=== PATIENT | male | born 1985 | race Caucasian/White ===

== ENCOUNTER 2020-02-19 15:38 | Emergency (ER) | payer OTHER, SELFPAY ==
[2020-02-19 16:41] VITALS: BP 148/89; RESP 20; TEMP 36.1; O2SAT 98; BMI 29.0
--- NOTE | 2020-02-19 17:43 | ED.SKABFB ---
HPI - Skin/Abscess/Foreign Bdy General Chief complaint: Skin/Abscess/Foreign Body Stated complaint: skin lesions Time Seen by Provider: 02/19/20 17:42 History of Present Illness HPI narrative: Patient complains of multiple small scabbed lesions on face and arms for many many weeks, no fever no chills Related Data Previous Rx's Medication Instructions Recorded clindamycin HCl 300 mg PO QID 10 Days #40 cap 02/19/20 Allergies Allergy/AdvReac Type Severity Reaction Status Date / Time penicillin V Allergy Unknown Unknown Verified 02/19/20 17:50 Penicillins [PENICILLINS] Allergy Unknown RASH Verified 02/19/20 17:50 penicillin Allergy Unknown Unknown Uncoded 02/19/20 16:44 Review of Systems Review of Systems: No fever no chills no dizziness no weakness no chest pain no cough no shortness of breath Yes all other systems are reviewed and are negative [facility] Past Medical History [facility] Narrative: Patient admits to drug use Medical History (Updated 02/20/20 @ 00:00 by Background Daemon) No known health problems Social History Social History Advance Directives: No Advance Directives Information Provided: Yes Physical Exam Vital Signs: Vital Signs: Last Vital Signs Temp 98.2 F 02/19/20 17:47 Pulse 108 H 02/19/20 17:47 Resp 17 02/19/20 17:47 BP 131/96 H 02/19/20 17:47 Pulse Ox 97 02/19/20 17:47 Body Mass Index 29.0 General appearance a and O x3, no acute distress The exam of the face and the skin shows multiple scabbed lesions as well as some very small pustules, no fluctuant abscess no large area of redness there are many small scabs with out significant surrounding erythema The pharynx is clear the neck is supple the chest no respiratory distress the extremities full range of motion x4, gait is normal neuro no focal deficit Course Course Course Narrative: Patient is treated with antibiotic for folliculitis/cellulitis Discharge Plan Discharge Clinical Impression: Cellulitis Patient Disposition: Home, Self-Care Additional Instructions: Use antibiotic as directed Return any time any worse condition or concerns Follow with primary care doctor Prescriptions: New clindamycin HCl 300 mg capsule 300 mg PO QID 10 Days Qty: 40 RF: 0 Interventions: ED Discharge Assessment Last Done: 02/19/20 17:58 Discharge Date/Time: 02/19/20 17:59
[2020-02-19 17:47] VITALS: BP 131/96; PULSE 108; RESP 17; TEMP 36.8; O2SAT 97; BMI 29.0
== END 2020-02-19 17:59 | disposition home or self-care (01) ==
PROVIDERS: Emergency Provider Internal Medicine; PCP Internal Medicine
DX: L03.211 Cellulitis of face (principal); L03.114 Cellulitis of left upper limb; L03.113 Cellulitis of right upper limb; Z79.899 Other long term (current) drug therapy
CPT/HCPCS: 99283

== ENCOUNTER 2020-07-22 08:18 | Emergency (ER) | payer OTHER, SELFPAY ==
[2020-07-22 08:21] VITALS: PULSE 104; O2SAT 98
[2020-07-22 08:23] VITALS: BP 134/91; PULSE 99; RESP 18; TEMP 36.6; O2SAT 98; BMI 25.8
== END 2020-07-22 09:07 | disposition left against medical advice (07) ==
PROVIDERS: Emergency Provider Emergency Medicine
DX: F14.10 Cocaine abuse, uncomplicated (principal); F12.90 Cannabis use, unspecified, uncomplicated; Z71.51 Drug abuse counseling and surveillance of drug abuser
CPT/HCPCS: 99282

== ENCOUNTER 2020-07-23 00:50 | Emergency (ER) | payer OTHER, SELFPAY ==
--- NOTE | 2020-07-23 00:55 | ED.PSYCH ---
HPI - Psych General Chief Complaint: ETOH/Substance Use Stated Complaint: crisis Time Seen by Provider: 07/23/20 00:55 Source: patient and EMS Mode of arrival: EMS Limitations: no limitations History of Present Illness HPI Narrative: 35 yo male with cocaine and synthetic use to get high, no SI, at this time 911 called due to the patient walking around and acting strange complaint: anxiety and substance abuse Onset (ago): hour(s) Duration: constant History of same: Yes Relieving factors: none Exacerbating factors: drug use Context: recent drug abuse Associated psychiatric symptoms: none Associated symptoms: denies other symptoms Related Data Previous Rx's Medication Instructions Recorded clindamycin HCl 300 mg PO QID 10 Days #40 cap 02/19/20 Allergies Allergy/AdvReac Type Severity Reaction Status Date / Time penicillin V Allergy Unknown Unknown Verified 02/19/20 17:50 Penicillins [PENICILLINS] Allergy Unknown RASH Verified 02/19/20 17:50 penicillin Allergy Unknown Unknown Uncoded 02/19/20 16:44 Review of Systems Review of Systems: Constitutional : No Fever, No Chills ENT/Mouth : No Ear Pain, No Nasal Congestion, No sore throat Eyes: No Eye Pain, No Swelling, No Redness Cardiovascular : No Chest Pain, No SOB Respiratory : No Cough, No Sputum, No Dyspnea Gastrointestinal : No Nausea, No Vomiting, No Diarrhea, No Hematochezia, No Melena Genitourinary : No Dysuria, No Urinary Frequency, No Hematuria Musculoskeletal : No Myalgias Skin : No Skin Lesions, No rash Neuro : No Weakness, No Numbness, No Paresthesias, No Dizziness, No Headache Psych : pos Anxiety, no Depression, no SI/HI Heme/Lymph: No Lymphadenopathy Endocrine : No Polyuria, No Polydipsia All other systems reviewed and are negative [facility] Past Medical History Medical History (Updated 07/23/20 @ 00:58 by Alice Brown DO) No known health problems Polysubstance abuse Social History Social History (Updated 07/23/20 @ 00:59 by Alice Brown DO) Alcohol intake: current Smoking Status: Current every day smoker Substance Use Type: Crack/Cocaine and Marijuana Advance Directives: No Physical Exam Vital Signs: Appearance: Alert. Oriented X3. No acute distress. intermittent jerking movements, laughing Eyes: Pupils equal, round and reactive to light. ENT: Pharynx normal. Neck: Normal inspection. Neck supple. CVS: Normal heart rate and rhythm. Pulses normal. Respiratory: No respiratory distress. Breath sounds normal. Abdomen: Soft and nontender. Skin: Skin warm and dry. Normal skin color. Normal skin turgor. Extremities: No lower extremity edema. No calf ttp Neuro: Oriented X 3. No motor deficit. No sensory deficit. MDM - Psych MDM Narrative Medical decision making narrative: 35 yo male stable VS, no SI comes in feeling weird and anxious after using cocaine and synthetic THC - normal HR and BP, anxious, will give PO ativan and reassess patient for improvement, anticipate DC home Discharge Plan Discharge Clinical Impression: Polysubstance abuse Patient Disposition: Home, Self-Care Instructions: Polysubstance Abuse (ED) Additional Instructions: return to ED for any worsening symptoms or concerns Prescriptions: No Action clindamycin HCl 300 mg capsule 300 mg PO QID 10 Days Qty: 40 RF: 0
[2020-07-23 00:57] VITALS: BP 117/69; PULSE 80; PULSE 97; RESP 18; TEMP 36.8; O2SAT 98; BMI 24.2
[2020-07-23] MEDS: Acetaminophen 325 MG TABLET 650 MG PO (01:02)
[2020-07-23] MEDS: LORazepam 1 MG TABLET 2 MG PO (01:03)
[2020-07-23] MEDS: LORazepam 1 MG TABLET PO (01:32)
[2020-07-23] MEDS: OLANZapine 5 MG TABLET PO (01:35)
[2020-07-23 04:00] VITALS: RESP 14
[2020-07-23 06:00] VITALS: BP 110/74; PULSE 97; RESP 14; TEMP 36.8; O2SAT 98
[2020-07-23 08:00] VITALS: RESP 18
[2020-07-23 10:00] VITALS: RESP 16
--- NOTE | 2020-07-23 10:38 | PC.NURSE ---
Pt sleeping at this time, no sign of distress. Respirations even/unlabored bilaterally. Will continue to monitor. md aware.
[2020-07-23 12:52] LABS: COVID-19 Test Negative (Negative)
[2020-07-23 13:08] VITALS: BP 139/84; PULSE 82; RESP 18; TEMP 36.7; O2SAT 98
== END 2020-07-23 14:32 ==
PROVIDERS: Emergency Provider Emergency Medicine
DX: F14.10 Cocaine abuse, uncomplicated (principal); F19.10 Other psychoactive substance abuse, uncomplicated; R45.1 Restlessness and agitation; F41.9 Anxiety disorder, unspecified; F17.200 Nicotine dependence, unspecified, uncomplicated; Z20.822 Contact with and (suspected) exposure to COVID-19
CPT/HCPCS: 36415; 87635; 99285

== ENCOUNTER 2020-12-13 04:12 | Emergency (ER) | payer OTHER, SELFPAY ==
[2020-12-13 04:38] VITALS: BP 130/82; PULSE 127; RESP 20; TEMP 37.1; O2SAT 96; BMI 38.3
--- NOTE | 2020-12-13 06:19 | ED_ITS ---
HPI - Dental/Oral General Chief complaint: Dental/Oral Stated complaint: covid symptoms/drug use Time Seen by Provider: 12/13/20 06:02 Source: patient Mode of arrival: ambulatory History of Present Illness HPI Narrative: 35-year-old male comes in with complaints of ?COVID symptoms and dental pain?. In addition, he endorses use of cocaine approximately 2 hours prior to arrival. He denies any fever, chills a states he is having pain thro ugh his nose and into his ears. Related Data Previous Rx's Medication Instructions Recorded clindamycin HCl 300 mg capsule 300 mg PO QID 10 Days #40 cap 02/19/20 levofloxacin 750 mg tablet 750 mg PO Q24H 10 Days #10 tab 12/13/20 Allergies Allergy/AdvReac Type Severity Reaction Status Date / Time penicillin V Allergy Unknown Unknown Verified 02/19/20 17:50 Penicillins [PENICILLINS] Allergy Unknown RASH Verified 02/19/20 17:50 penicillin Allergy Unknown Unknown Uncoded 02/19/20 16:44 Review of Systems Review of Systems: Pertinent positives and negatives as stated in HPI 10 point review systems is otherwise negative. [facility] Past Medical History Source: nursing notes reviewed Medical History No known health problems Polysubstance abuse Social History Social History Alcohol intake: current Patient Tobacco Use Status: Never used Tobacco Use of substances other than those prescribed or required for medical reasons: Yes Substance Use Type: Crack/Cocaine and Heroin Substance Use Frequency: Chronic Longstanding Last Used Substance: Hours (ago) Advance Directives: No Physical Exam Vital Signs: Vital Signs: Last Vital Signs Temp 98.7 F 12/13/20 04:38 Pulse 127 H 12/13/20 04:38 Resp 20 12/13/20 06:50 BP 130/82 12/13/20 04:38 Pulse Ox 96 12/13/20 04:38 Body Mass Index 38.3 VITAL SIGNS: Reviewed. GENERAL: Well developed, well nourished, in no acute distress. HEAD: Normocephalic/atraumatic EYES: PERRLA, EOMI EARS: Ext canals without abnormality NOSE: Nares patent bilateral, his septum is completely gone and complete visualization of posterior sinus OROPHARYNX: no oral lesions noted, posterior pharynx clear and non-erythematous without noted tonsillar enlargement/erythema/exudates NECK: Supple, no adenopathy LUNGS: Normal breath sounds. No adventitious sounds or accessory muscle use. SpO2<96> CARDIOVASCULAR: Regular rate and rhythm without noted murmurs, no JVD or lower extremity edema. ABDOMEN: Obese, Soft, non-tender, non-distended with bowel sounds. SKIN: Inspection of the skin reveals no rashes NEUROLOGIC: Alert and oriented x 4. PSYCH: Restless, agitated Course Course Course Narrative: This is a 35-year-old male with history and clinical presentation consistent with significant use the cocaine that has eroded almost the entire is to of his nose with confluence between the right and left side. On evaluation of the oral cavity there is no evidence communication between the hard/soft palate and the nasal passage. Basic labs and COVID-19 will be obtained. Patient otherwise clearly under the influence of illicit drugs. Antibiotics given. Signed out to Dr Brown. [facility] - Dental/Oral Lab Data Result diagrams: 12/13/20 06:20 12/13/20 06:20 Labs: Lab Results 12/13/20 12/13/20 12/13/20 Range/Units 06:20 06:20 06:20 WBC 15.4 H (4.8-10.8) X10*3/uL RBC 4.67 (4.60-5.80) X10*6/uL Hgb 13.1 L (14.0-18.0) g/dl Hct 38.6 L (42-52) % MCV 82.7 (80-98) fL MCH 28.1 (27.0-33.0) pg MCHC 33.9 (31.0-36.0) g/dl RDW 12.5 (11.0-16.0) % Plt Count 316 (160-400) X10*3/uL MPV 8.9 L (9.4-12.4) fL Immature Gran % (Auto) 1.0 H (0.0-0.4) % Neut % (Auto) 71.5 (45-73) % Lymph % (Auto) 13.5 L (20-40) % [place] % (Auto) 9.9 (2-11) % Eos % (Auto) 3.5 (0-4) % Baso % (Auto) 0.6 (0-2) % Lymph # (Auto) 2.1 (1.2-4.9) X10*3/uL [place] # (Auto) 1.5 H (0.1-1.2) X10*3/uL Eos # (Auto) 0.5 H (0.0-0.4) X10*3/uL Baso # (Auto) 0.1 (0.0-0.2) X10*3/uL Abs Immat Gran (auto) 0.16 H (0.00-0.03) X10*3/uL Absolute Neuts (auto) 11.0 H (2.0-8.3) X10*3/uL Absolute Nucleated RBC 0.000 (0.0-0.012) X10*3/uL Nucleated RBC % (auto) 0.0 (0.0-0.2) /100WBC Smear Tech's Comments VERIFIED Sodium 133 L (135-145) mmol/L Potassium 3.9 (3.3-5.1) mmol/L Chloride 99 (96-108) mmol/L Carbon Dioxide 24 (22-29) mmol/L Anion Gap 14 (12-20) BUN 16 (9-16) mg/dL Creatinine 0.89 (0.5-1.4) mg/dL Estim Creat Clear Calc 140.4 Estimated GFR > 60 Random Glucose 131 H (60-115) mg/dL Calcium 9.2 (8.4-10.2) mg/dL Total Bilirubin 0.4 (0.0-1.0) mg/dL AST 54 H (5-37) U/L ALT 51 H (0-40) U/L Alkaline Phosphatase 96 (39-117) U/L Total Protein 6.9 (6.5-8.0) g/dL Albumin 4.2 (3.5-5.0) g/dL COVID-19 (DIRK) Negative (Negative) COVID-19 Clin Com See Note Discharge Plan Discharge Clinical Impression: Ear infection Patient Disposition: Home, Self-Care Instructions: Ear Infection (ED) Additional Instructions: Return to the ER for acute worsening of symptoms. Prescriptions: New levofloxacin 750 mg tablet 750 mg PO Q24H 10 Days Qty: 10 RF: 0 No Action clindamycin HCl 300 mg capsule 300 mg PO QID 10 Days Qty: 40 RF: 0
[2020-12-13 06:26] LABS: Basophils Absolute Auto 0.1 X10*3/uL (0.0-0.2); Basophils Percent Auto 0.6 % (0-2); Eosinophils Absolute Auto 0.5 X10*3/uL (0.0-0.4); Eosinophils Percent Auto 3.5 % (0-4); Hematocrit 38.6 % (42-52); Hemoglobin 13.1 g/dl (14.0-18.0); Imm Gran Abs Auto 0.16 X10*3/uL (0.00-0.03); Lymphocytes Absolute Auto 2.1 X10*3/uL (1.2-4.9); Lymphocytes Percent Auto 13.5 % (20-40); MANUAL DIFF FLAG SCAN; Mean Corpuscular HGB Conc 33.9 g/dl (31.0-36.0); Mean Corpuscular Hemoglobin 28.1 pg (27.0-33.0); Mean Corpuscular Volume 82.7 fL (80-98); Mean Platelet Volume 8.9 fL (9.4-12.4); Monocytes Absolute Auto 1.5 X10*3/uL (0.1-1.2); Monocytes Percent Auto 9.9 % (2-11); Neutrophils Percent Auto 71.5 % (45-73); Platelet Count 316 X10*3/uL (160-400); Red Blood Count 4.67 X10*6/uL (4.60-5.80); Red Cell Distribution Width 12.5 % (11.0-16.0); SCAN SMEAR FLAG 1; White Blood Count 15.4 X10*3/uL (4.8-10.8)
[2020-12-13 06:44] LABS: COVID-19 Test Negative (Negative); IDNOW Serial# 9DD0AD1C
[2020-12-13 06:45] LABS: SLIDE REVIEW VERIFIED
[2020-12-13 06:49] LABS: Alanine Aminotransferase 51 U/L (0-40); Albumin Level 4.2 g/dL (3.5-5.0); Alkaline Phosphatase 96 U/L (39-117); Anion Gap 14 (12-20); Aspartate Amino Transferase 54 U/L (5-37); Bilirubin Total 0.4 mg/dL (0.0-1.0); Blood Urea Nitrogen 16 mg/dL (9-16); Calcium 9.2 mg/dL (8.4-10.2); Carbon Dioxide 24 mmol/L (22-29); Chloride 99 mmol/L (96-108); Creatinine Clr Calc Pharmacy 140.4; Estimated Glomerular Filt Rate > 60; Glucose Random 131 mg/dL (60-115); Potassium 3.9 mmol/L (3.3-5.1); Sodium 133 mmol/L (135-145); Total Protein 6.9 g/dL (6.5-8.0)
[2020-12-13 06:50] VITALS: RESP 20
--- NOTE | 2020-12-13 06:52 | PC.NURSE ---
pt high on cocaine, pt is restless, labs and covid swab sent . Pt given something to drink. No nausea or vomiting. Will continue to monitor.
[2020-12-13] MEDS: levoFLOXacin 750 MG TABLET PO (06:59)
[2020-12-13 07:29] VITALS: BP 110/78; PULSE 98; RESP 20; O2SAT 98
== END 2020-12-13 08:00 | disposition home or self-care (01) ==
PROVIDERS: Student in an Organized Health Care Education/Training Program; Emergency Provider Emergency Medicine
DX: H83.03 Labyrinthitis, bilateral (principal); F14.10 Cocaine abuse, uncomplicated; F11.10 Opioid abuse, uncomplicated; K08.89 Other specified disorders of teeth and supporting structures; Z20.822 Contact with and (suspected) exposure to COVID-19; Z79.899 Other long term (current) drug therapy
CPT/HCPCS: 36415; 80053; 85025; 87635; 99283; 99284

== ENCOUNTER 2020-12-15 00:20 | Emergency (ER) | payer OTHER, SELFPAY ==
[2020-12-15 00:33] VITALS: BP 138/80; BP 150/82; PULSE 114; PULSE 99; RESP 24; O2SAT 100; BMI 37.5
[2020-12-15 05:18] VITALS: PULSE 88; RESP 14; O2SAT 98
--- NOTE | 2020-12-15 05:19 | PC.NURSE ---
Pt remains asleep in bed at this time in NAD. Visible chest rise noted.
--- NOTE | 2020-12-15 06:41 | PC.NURSE ---
Pt remains asleep in bed at this time, visible chest rise noted. Pt occasionally wakes and yells out but returns to sleep immediately. Per MD, plan uncertain as pt remains extremely drowsy. Continue to monitor.
--- NOTE | 2020-12-15 06:57 | ED.GENADULT ---
HPI - General Adult General Chief complaint: ETOH/Substance Use Stated complaint: withdrawls Time Seen by Provider: 12/15/20 06:57 Source: EMS Mode of arrival: EMS History of Present Illness HPI narrative: 35-year-old male is brought in from home by EMS the latter which reports that the patient says he is detoxing from methadone and cocaine for 2-3 days. He denies any suicidal or homicidal ideation. Related Data Previous Rx's Medication Instructions Recorded clindamycin HCl 300 mg capsule 300 mg PO QID 10 Days #40 cap 02/19/20 levofloxacin 750 mg tablet 750 mg PO Q24H 10 Days #10 tab 12/13/20 Allergies Allergy/AdvReac Type Severity Reaction Status Date / Time penicillin V Allergy Unknown Unknown Verified 12/15/20 00:36 Penicillins [PENICILLINS] Allergy Unknown RASH Verified 12/15/20 00:36 penicillin Allergy Unknown Unknown Uncoded 12/15/20 00:36 Review of Systems Review of Systems: Pertinent positives and negatives as stated in the HPI. [facility] Past Medical History Source: nursing notes reviewed Medical History No known health problems Polysubstance abuse Social History Social History Alcohol intake: current Patient Tobacco Use Status: Never used Tobacco Substance Use Type: Crack/Cocaine and Heroin Advance Directives: No Physical Exam Vital Signs: Vital Signs: Last Vital Signs Pulse 88 12/15/20 05:18 Resp 14 12/15/20 05:18 BP 138/80 12/15/20 00:33 Pulse Ox 98 12/15/20 05:18 Body Mass Index 37.5 VITAL SIGNS: Reviewed. GENERAL: Well developed, well nourished, in no acute distress. HEAD: Normocephalic/atraumatic EYES: PERRLA, EOMI NOSE: Nares patent bilateral, no septum left OROPHARYNX: no oral lesions noted, posterior pharynx clear LUNGS: Normal breath sounds. SpO2<98> CARDIOVASCULAR: Regular rate and rhythm without noted murmurs ABDOMEN: Soft, non-tender, non-distended with bowel sounds. SKIN: Inspection of the skin reveals no rashes NEUROLOGIC: Alert and oriented x 4. Strength and sensation to light touch were grossly intact x 4. Course Course Course Narrative: 35-year-old male with history and clinical presentation consistent with substance use and is resting comfortably. On re-evaluation patient states he is ready go home and will be discharged in stable condition. Discharge Plan Discharge Clinical Impression: Substance abuse Patient Disposition: Home, Self-Care Instructions: Polysubstance Abuse (ED) Additional Instructions: You need to resume your antibiotics as prescribed. Return to the ER for acute worsening of your symptoms. Prescriptions: No Action clindamycin HCl 300 mg capsule 300 mg PO QID 10 Days Qty: 40 RF: 0 levofloxacin 750 mg tablet 750 mg PO Q24H 10 Days Qty: 10 RF: 0 Referrals: Physician,Unknown [Primary Care Provider] - 2 days
--- NOTE | 2020-12-15 07:24 | PC.NURSE ---
woke by . given phone to find ride home.
--- NOTE | 2020-12-15 07:32 | PC.NURSE ---
Pt eating. states he has a ride coming. requesting methadone which he has missed last 2 days.
== END 2020-12-15 07:59 | disposition home or self-care (01) ==
PROVIDERS: Emergency Provider Student in an Organized Health Care Education/Training Program
DX: F11.13 Opioid abuse with withdrawal (principal); F14.10 Cocaine abuse, uncomplicated; Z71.51 Drug abuse counseling and surveillance of drug abuser
CPT/HCPCS: 99284

== ENCOUNTER 2021-01-08 11:41 | Emergency (ER) | payer MEDICAID, SELFPAY ==
[2021-01-08 14:18] VITALS: BP 144/100; PULSE 80; RESP 18; TEMP 37.1; O2SAT 97; BMI 37.5
--- NOTE | 2021-01-08 14:42 | ED_ITS ---
HPI - URI/Sore Throat General Chief Complaint: Upper Respiratory Symptoms Stated Complaint: sore throat, ear pain Time Seen by Provider: 01/08/21 14:42 Source: patient Mode of arrival: ambulatory Limitations: no limitations History of Present Illness HPI Narrative: sore throat and right ear pain for 4 days MD elicited complaint: sore throat and nasal congestion Onset (ago): day(s) Consistency: constant Severity: moderate Relieving factors: nothing Associated symptoms: denies other symptoms Related Data Previous Rx's Medication Instructions Recorded clindamycin HCl 300 mg capsule 300 mg PO QID 10 Days #40 cap 02/19/20 levofloxacin 750 mg tablet 750 mg PO Q24H 10 Days #10 tab 12/13/20 mometasone 50 mcg/actuation nasal 2 spray INTRANASAL DAILY #17 g 01/08/21 spray (Nasonex) Allergies Allergy/AdvReac Type Severity Reaction Status Date / Time penicillin V Allergy Unknown Unknown Verified 12/15/20 00:36 Penicillins [PENICILLINS] Allergy Unknown RASH Verified 12/15/20 00:36 penicillin Allergy Unknown Unknown Uncoded 12/15/20 00:36 Review of Systems Constitutional: Constitutional: Reports no additional constitutional complaints Eyes: Eyes: Reports no additional eye complaints ENT: Denies dizziness Cardiovascular: Cardiovascular: Reports no additional cardiovascular complaints Respiratory: Respiratory: Reports as per HPI Gastrointestinal: Gastrointestinal: Reports no additional gastrointestinal complaints Musculoskeletal: Musculoskeletal: Reports no additional musculoskeletal complaints Integumentary/Breasts: Skin/Breast: Denies rash Neurologic: Reports system reviewed and no additional complaints, except as documented, Denies dizziness and Denies Sensory deficit (Neuro) Psychiatric: Psychiatric: Denies anxiety [facility] Past Medical History Medical History No known health problems Polysubstance abuse Social History Social History Alcohol intake: current Patient Tobacco Use Status: Never used Tobacco Substance Use Type: Crack/Cocaine and Heroin Advance Directives: No Advance Directives Information Provided: No Physical Exam Vital Signs: Vital Signs: Last Vital Signs Temp 98.8 F 01/08/21 14:18 Pulse 80 01/08/21 14:18 Resp 18 01/08/21 14:18 BP 144/100 H 01/08/21 14:18 Pulse Ox 97 01/08/21 14:18 Body Mass Index 37.5 Const: Other: patient sounds like nasal congestion when he breaths General: healthy appearing Nutritional Appearance: average body habitus Orientation/consciousness: oriented to person and patient oriented x3 Limitations: no limitations HENMT: Other: pharynx normal, left TM retracted, right tm slight loss of landmarks, no erythema no bulging Head: Yes normal to inspection Ears: ext ernal ears normal General nose exam: Normal external nose present Mouth: Normal oral and palatal mucosa present and oropharynx normal Throat: Yes posterior oropharynx normal Eyes: General: appearance normal, both eyes and all related structures Neck: Other: supple Neck: Yes normal visual inspection Chest: Chest palpation & inspection: normal inspection of the chest Resp: Auscultation: clear to auscultation bilaterally Cardio: Jugular venous distension: no JVD Rate: regular rate Rhythm: regular rhythm Heart sounds: S1 normal heart sound present and S2 normal heart sound present GI: Inspection: Yes normal to inspection Palpation (GI): Soft to palpation, nontender and No hepatosplenomegaly present Auscultation: normal bowel sounds : General: Yes no CVA tenderness Back/Spine/Pelvis: Back: no CVA tenderness Skin: General skin exam: no rashes or lesions noted Neuro: General: oriented to person and patient oriented x3 Cranial nerves: Yes CN's II-XII intact bilaterally Motor exam (neuro): 5/5 motor strength present throughout Sensory Exam: No Sensory deficit (Neuro) Extrem: General: Yes normal to inspection Psych: Appearance: grossly normal Course Reevaluation(s) Reevaluation #1: With nasal breathing and retracted tms will start on nasonex to clear eustacian tubes will not start abx at this time Time: 14:50 MDM - URI/Sore Throat Lab Data Labs: Lab Results 01/08/21 01/08/21 Range/Units 14:10 14:10 COVID-19 (DIRK) Negative (Negative) COVID-19 Clin Com See Note S. pyogenes GrpA MARIZOL Negative (Negative) Discharge Plan Discharge Clinical Impression: Viral infection Upper respiratory infection Qualifiers: URI type: unspecified viral URI Qualified Code(s): J06.9 - Acute upper respiratory infection, unspecified Sinusitis Qualifiers: Sinusitis location: other Chronicity: subacute Qualified Code(s): J01.80 - Other acute sinusitis Patient Disposition: Home, Self-Care Instructions: Sinusitis (ED), Upper Respiratory Infection (ED), Viral Syndrome (ED) Prescriptions: New mometasone [Nasonex] 50 mcg/actuation spray,non-aerosol 2 spray intranasal DAILY Qty: 17 RF: 0 No Action clindamycin HCl 300 mg capsule 300 mg PO QID 10 Days Qty: 40 RF: 0 levofloxacin 750 mg tablet 750 mg PO Q24H 10 Days Qty: 10 RF: 0 Referrals: Physician,None [Primary Care Provider] - 1 week
[2021-01-08 14:48] LABS: IDNOW Serial# 08D9AD1C; Strep A Nucleic Acid Negative (Negative)
[2021-01-08 14:58] LABS: COVID-19 Test Negative (Negative)
== END 2021-01-08 22:15 | disposition home or self-care (01) ==
PROVIDERS: Emergency Provider Emergency Medicine
DX: J06.9 Acute upper respiratory infection, unspecified (principal); J01.80 Other acute sinusitis; Z20.822 Contact with and (suspected) exposure to COVID-19
CPT/HCPCS: 36415; 87635; 87651; 99283

== ENCOUNTER 2021-06-15 01:58 | Emergency (ER) | payer MEDICAID, SELFPAY ==
[2021-06-15 03:08] VITALS: BMI 33.9
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
[2021-06-15] MEDS: LORazepam 1 MG TABLET 2 MG PO (03:26)
[2021-06-15] MEDS: Ondansetron ODT 4 MG TAB.RAPDIS TRANSLINGU ×2 (03:26→15:32)
[2021-06-15 03:32] VITALS: BP 139/98; PULSE 120; RESP 20; TEMP 36.3; O2SAT 95
[2021-06-15 03:32] LABS: Glucose, Whole Blood 107 mg/dL (60-115)
--- NOTE | 2021-06-15 03:34 | PC.NURSE ---
Administered Ativan 2 mg and Zofran 4 mg po, patient compliant with medication, patient diabetic off his medication since last November, POC checked was 107 @ 0328, intermittently moaning loud, will continue to monitor.
[2021-06-15 03:55] LABS: COVID-19 Test Negative (Negative)
--- NOTE | 2021-06-15 06:17 | PC.NURSE ---
patient is currently appears sleeping, no distress observed/reported, + effect from Ativan 2 mg, patient is awaiting recovery collector consult, will continue to monitor.
--- NOTE | 2021-06-15 07:02 | PC.NURSE ---
patient appears to remain asleep at present respirations are even and unlabored patient appears in no distress
--- NOTE | 2021-06-15 12:48 | MHC.RECOVSUP ---
Addendum entered by Compa Calderón [facility] 06/15/21 15:49: This singer songwriter woke patient up at 1500 to discuss substance use and treatment options. Patient reports he has been using cocaine and heroin and that he missed his methadone dose today and yesterday. Patient initially reported he gets 120mg of methadone through [facility] on [address] and later stated he gets 130mg. This singer songwriter attempted to verify dose however clinic is closed at this time. Explained to patient that we are unable to give full dose unless we get confirmation from the clinic but that we could give a smaller dose. Patient is open to any form of help, stating he is feeling weak and that he cannot move. Discussed returning to the clinic tomorrow with patient. Last dose letter will be provided prior to discharge. Original Note: Recovery Support note: Patient is a 35 year old male who presented to [facility] under the influence of cocaine. This singer songwriter has made multiple attempts to speak with patient however continues to sleep. Patient's RN will inform this singer songwriter when he is awake for this singer songwriter to meet with him and offer him recovery support resources prior to discharge.
--- NOTE | 2021-06-15 13:01 | PC.NURSE ---
client continues to nap lengthily with brief periods awake.
[2021-06-15] MEDS: methADONE HCl 20 MG/2 ML ORAL.CONC 30 MG PO (15:32)
== END 2021-06-15 16:27 | disposition home or self-care (01) ==
PROVIDERS: Emergency Provider Emergency Medicine
DX: F33.1 Major depressive disorder, recurrent, moderate (principal); R07.89 Other chest pain; F14.10 Cocaine abuse, uncomplicated; F11.10 Opioid abuse, uncomplicated; Z20.822 Contact with and (suspected) exposure to COVID-19; Z79.899 Other long term (current) drug therapy
CPT/HCPCS: 82947; 87635; 99284

== ENCOUNTER 2022-02-06 10:48 | Emergency (ER) | payer MEDICAID, SELFPAY ==
--- NOTE | ~2022-02-06 | XR_ITS ---
EXAMINATION: XR CHEST CLINICAL INFORMATION: Dyspnea. COMPARISON: 08/07/2019 chest radiograph. TECHNIQUE: Frontal view of the chest was obtained. FINDINGS: No significant abnormality is noted involving the heart, lungs, mediastinum, bony thorax or soft tissues. XR/XR chest 1V IMPRESSION: No acute cardiopulmonary process.
[2022-02-06 10:58] VITALS: BP 128/76; PULSE 99; O2SAT 96
--- NOTE | 2022-02-06 11:00 | PC.NURSE ---
patient a/ox4 . presents to Ed after snorting 3 bags of cocaine . feeling immediately body aches , nausea . and headache . patient reports he is currently on methadone at 130 mg a day that he receives at a clinic . perrla . heart rate regular at 86 . lungs clear throughout . skin pink wamr and dry . IV placed in left hand , patient given zofran and Ativan as ordered , fluids started as ordered . abdomen soft not tender . positive bowel sounds throughout . patient aware of plan of care .
[2022-02-06 11:01] VITALS: BP 107/63; PULSE 93; RESP 18; TEMP 36.8; O2SAT 98; BMI 40.7
[2022-02-06 11:09] VITALS: BP 120/76; PULSE 91; RESP 95; TEMP 36.8; O2SAT 95
--- NOTE | 2022-02-06 11:09 | ECG_ITS ---
Test Reason : OVERDOSE Blood Pressure : / mmHG Vent. Rate : 090 BPM Atrial Rate : 090 BPM P-R Int : 142 ms QRS Dur : 100 ms QT Int : 388 ms P-R-T Axes : 037 006 025 degrees QTc Int : 474 ms Normal sinus rhythm Nonspecific T wave abnormality Intra-ventricular conduction delay Abnormal ECG When compared with ECG of 07-AUG-2019 03:12, T wave inversion now evident in Anterior leads Heart rate has decreased Referred By: Ila Brown Electronically Signed By:DENICE AARON MD
--- NOTE | 2022-02-06 11:11 | ED_ITS ---
HPI - Psych General Chief Complaint: Overdose Stated Complaint: NAUSEA,DIZZY,PAIN ALL OVER S/P COCAINE USE Time Seen by Provider: 02/06/22 10:55 Source: patient Mode of arrival: EMS Limitations: no limitations History of Present Illness HPI Narrative: used cocaine again after not using for 6 months, missed his 130mg methadone today as he lives out here now, feels weak and has body aches and nausea MD complaint: substance abuse Onset (ago): day(s) (1) Duration: constant History of same: No Relieving factors: none Exacerbating factors: drug use Context: significant life stressor Associated symptoms: nausea and other (body aches, malaise) Treatments prior to arrival: none Related Data Home Medications Medication Instructions Recorded Confirmed No Known Home Meds 06/15/21 06/15/21 Allergies Allergy/AdvReac Type Severity Reaction Status Date / Time penicillin V Allergy Unknown Unknown Verified 12/15/20 00:36 Penicillins [PENICILLINS] Allergy Unknown RASH Verified 12/15/20 00:36 penicillin Allergy Unknown Unknown Uncoded 12/15/20 00:36 Review of Systems Review of Systems: Constitutional : No Weight loss, No Fever, pos Chills ENT/Mouth : No sore throat, No Rhinorrhea Eyes: No Swelling, No Redness Cardiovascular : No Chest Pain, No SOB, NoEdema Respiratory : No Cough, No Sputum, No Wheezing Gastrointestinal : Positive Nausea, Positive Vomiting, no Diarrhea, no abdominal Pain, No Hematochezia, No Melena Genitourinary : No Dysuria, No Urinary Frequency, No Hematuria, No Urgency Musculoskeletal : No joint pain, pos Myalgias, No Joint Swelling Skin : No Skin Lesions, No rash Neuro : No Weakness, No Numbness, No Dizziness, No Headache Psych : pos Anxiety/Panic, No Depression Heme/Lymph: No Bruising, No Lymphadenopathy Endocrine : No Polyuria, No Polydipsia All other systems reviewed and are negative. FOR[facility]LY [facility], [facility] Past Medical History Attestation statement: The following information was validated with the patient. Medical History No known health problems Polysubstance abuse Social History Social History Alcohol intake: current Patient Tobacco Use Status: Never used Tobacco Substance Use Type: Crack/Cocaine and Heroin Advance Directives: No Advance Directives Information Provided: Yes Physical Exam Vital Signs: Vital Signs: Last Vital Signs Temp 98.2 F 02/06/22 11:09 Pulse 90 02/06/22 13:08 Resp 16 02/06/22 13:08 BP 116/77 02/06/22 13:08 Pulse Ox 99 02/06/22 13:08 O2 Del Method 02/06/22 13:08 BMI result Body Mass Index 40.7 Appearance: Alert. Oriented X3. No acute distress. Anxious Eyes: Pupils equal, round and reactive to light. ENT: Pharynx normal. Neck: Normal inspection. Neck supple. CVS: Normal heart rate and rhythm. Pulses normal. Respiratory: No respiratory distress. Breath sounds normal. Abdomen: Soft and nontender. Skin: Skin warm and dry. Normal skin color. Normal skin turgor. Extremities: No lower extremity edema. Neuro: Oriented X 3. No motor deficit. No sensory deficit. Course Course Course Narrative: nonspecific EKG changes, CXR negative, will give methadone and refer to recovery team CPK only 700 2L of IVF ordered has no chest pain repeat EKG nonspecific no hypoxia, tachycardia to suggest PE has no CP will DC once more awake. MDM - Psych MDM Narrative Medical decision making narrative: 36 yo male with PMH of substance abuse on methadone reports using cocaine all night $200 worth now has feelings of body aches, nausea, vomiting, doesn't feel well - also missed his dose of 130mg methadone today since it's [place]. Will need labs, EKG, lytes, PO ativan. Dispo per results and findings. I am going to see if recovery team can help him get into methadone clinic here. Lab Data Result diagrams: 02/06/22 11:26 02/06/22 11:26 Labs: Lab Results 02/06/22 02/06/22 02/06/22 Range/Units 11:26 11: 11:26 WBC 12.7 H (4.8-10.8) X10*3/uL RBC 4.47 L (4.60-5.80) X10*6/uL Hgb 10.7 L (14.0-18.0) g/dl Hct 34.7 L (42.0-52.0) % MCV 77.6 L (80.0-98.0) fL MCH 23.9 L (27.0-33.0) pg MCHC 30.8 L (31.0-36.0) g/dl RDW 15.5 (11.0-16.0) % Plt Count 341 (160-400) X10*3/uL MPV 9.0 L (9.4-12.4) fL Immature Gran % (Auto) 0.4 (0.0-0.4) % Neut % (Auto) 85.8 H (45-73) % Lymph % (Auto) 7.3 L (20-40) % [place] % (Auto) 6.3 (2-11) % Eos % (Auto) 0.0 (0-4) % Baso % (Auto) 0.2 (0-2) % Lymph # (Auto) 0.9 L (1.2-4.9) X10*3/uL [place] # (Auto) 0.8 (0.1-1.2) X10*3/uL Eos # (Auto) 0.0 (0.0-0.4) X10*3/uL Baso # (Auto) 0.0 (0.0-0.2) X10*3/uL Abs Immat Gran (auto) 0.05 H (0.00-0.03) X10*3/uL Absolute Neuts (auto) 10.9 H (2.0-8.3) x10*3/uL Absolute Nucleated RBC 0.000 (0.0-0.012) X10*3/uL Nucleated RBC % (auto) 0.0 (0.0-0.2) /100WBC Sodium 139 (135-145) mmol/L Potassium 4.4 (3.3-5.1) mmol/L Chloride 102 (96-108) mmol/L Carbon Dioxide 23 (22-29) mmol/L Anion Gap 18 (12-20) BUN 18 H (9-16) mg/dL Creatinine 0.93 (0.5-1.4) mg/dL Estim Creat Clear Calc 137.4 Estimated GFR > 60 Random Glucose 103 (60-115) mg/dL Calcium 9.3 (8.4-10.2) mg/dL Magnesium 2.3 (1.6-2.6) mg/dL Total Bilirubin 0.5 (0.0-1.0) mg/dL Direct Bilirubin 0.2 (0.0-0.5) mg/dL AST 33 (5-37) U/L ALT 16 (0-40) U/L Alkaline Phosphatase 106 (39-117) U/L Total Creatine Kinase 717 H (38-174) U/L Troponin I High Sens (<3.5-35.0) ng/L Total Protein 8.0 (6.5-8.0) g/dL Albumin 4.4 (3.5-5.0) g/dL Ethyl Alcohol mg/dL COVID-19 (DIRK) Negative (Negative) COVID-19 Clin Com See Note 02/06/22 02/06/22 02/06/22 Range/Units 11:26 11:26 13:38 WBC (4.8-10.8) X10*3/uL RBC (4.60-5.80) X10*6/uL Hgb (14.0-18.0) g/dl Hct (42.0-52.0) % MCV (80.0-98.0) fL MCH (27.0-33.0) pg MCHC (31.0-36.0) g/dl RDW (11.0-16.0) % Plt Count (160-400) X10*3/uL MPV (9.4-12.4) fL Immature Gran % (Auto) (0.0-0.4) % Neut % (Auto) (45-73) % Lymph % (Auto) (20-40) % [place] % (Auto) (2-11) % Eos % (Auto) (0-4) % Baso % (Auto) (0-2) % Lymph # (Auto) (1.2-4.9) X10*3/uL [place] # (Auto) (0.1-1.2) X10*3/uL Eos # (Auto) (0.0-0.4) X10*3/uL Baso # (Auto) (0.0-0.2) X10*3/uL Abs Immat Gran (auto) (0.00-0.03) X10*3/uL Absolute Neuts (auto) (2.0-8.3) x10*3/uL Absolute Nucleated RBC (0.0-0.012) X10*3/uL Nucleated RBC % (auto) (0.0-0.2) /100WBC Sodium (135-145) mmol/L Potassium (3.3-5.1) mmol/L Chloride (96-108) mmol/L Carbon Dioxide (22-29) mmol/L Anion Gap (12-20) BUN (9-16) mg/dL Creatinine (0.5-1.4) mg/dL Estim Creat Clear Calc Estimated GFR Random Glucose (60-115) mg/dL Calcium (8.4-10.2) mg/dL Magnesium (1.6-2.6) mg/dL Total Bilirubin (0.0-1.0) mg/dL Direct Bilirubin (0.0-0.5) mg/dL AST (5-37) U/L ALT (0-40) U/L Alkaline Phosphatase (39-117) U/L Total Creatine Kinase (38-174) U/L Troponin I High Sens < 3.5 < 3.5 (<3.5-35.0) ng/L Total Protein (6.5-8.0) g/dL Albumin (3.5-5.0) g/dL Ethyl Alcohol < 10 mg/dL COVID-19 (DIRK) (Negative) COVID-19 Clin Com ECG Data Attestation: I personally reviewed and interpreted this ECG as follows: ECG interpretation date: 02/06/22 ECG interpretation time: 11:34 Interpretation: Rate: 90 Rhythm: NSR [place]: normal Normal P waves. Normal ANDREA. Normal QRS complex. ST T wave : no ANNA, inverted T waves V1-V3 qTC: normal prior studies: no acute ischemia The study has been interpreted contemporaneously by me. . Discharge Plan Discharge Clinical Impression: Cocaine abuse, Myalgia, Nonspecific ST-T wave electrocardiographic changes Patient Disposition: Home, Self-Care Instructions: Cocaine Abuse (ED), Musculoskeletal Pain (ED) Additional Instructions: return to ED for any worsening symptoms or concerns please follow up with N clinic tomorrow AM. Prescriptions: No Action No Known Home Meds
[2022-02-06 11:31] LABS: MANUAL DIFF FLAG NO
[2022-02-06] MEDS: LORazepam 1 MG TABLET PO (11:33)
[2022-02-06] MEDS: ondansetron HCL 4 MG/2 ML VIAL IVPUSH (11:33)
[2022-02-06 11:34] LABS: Basophils Percent Auto 0.2 % (0-2); Hematocrit 34.7 % (42.0-52.0); Hemoglobin 10.7 g/dl (14.0-18.0); Imm Gran Abs Auto 0.05 X10*3/uL (0.00-0.03); Imm Gran Pct Auto 0.4 % (0.0-0.4); Lymphocytes Absolute Auto 0.9 X10*3/uL (1.2-4.9); Lymphocytes Percent Auto 7.3 % (20-40); Mean Corpuscular HGB Conc 30.8 g/dl (31.0-36.0); Mean Corpuscular Hemoglobin 23.9 pg (27.0-33.0); Mean Corpuscular Volume 77.6 fL (80.0-98.0); Monocytes Absolute Auto 0.8 X10*3/uL (0.1-1.2); Monocytes Percent Auto 6.3 % (2-11); Neutrophils Absolute Auto 10.9 x10*3/uL (2.0-8.3); Neutrophils Percent Auto 85.8 % (45-73); Platelet Count 341 X10*3/uL (160-400); Red Blood Count 4.47 X10*6/uL (4.60-5.80); Red Cell Distribution Width 15.5 % (11.0-16.0); White Blood Count 12.7 X10*3/uL (4.8-10.8)
[2022-02-06 11:47] LABS: COVID-19 Test Negative (Negative); Ethanol < 10 mg/dL; IDNOW Serial# 16C4AD1C
[2022-02-06 11:52] LABS: Alanine Aminotransferase 16 U/L (0-40); Albumin Level 4.4 g/dL (3.5-5.0); Alkaline Phosphatase 106 U/L (39-117); Anion Gap 18 (12-20); Aspartate Amino Transferase 33 U/L (5-37); Bilirubin Direct 0.2 mg/dL (0.0-0.5); Bilirubin Total 0.5 mg/dL (0.0-1.0); Blood Urea Nitrogen 18 mg/dL (9-16); Calcium 9.3 mg/dL (8.4-10.2); Carbon Dioxide 23 mmol/L (22-29); Chloride 102 mmol/L (96-108); Creatinine Clr Calc Pharmacy 137.4; Estimated Glomerular Filt Rate > 60; Glucose Random 103 mg/dL (60-115); Magnesium 2.3 mg/dL (1.6-2.6); Potassium 4.4 mmol/L (3.3-5.1); Sodium 139 mmol/L (135-145)
[2022-02-06 11:56] LABS: Troponin-I High Sensitivity < 3.5 ng/L (<3.5-35.0)
[2022-02-06 13:08] VITALS: BP 116/77; PULSE 90; RESP 16; O2SAT 99
--- NOTE | 2022-02-06 13:16 | HE.PHANOTE ---
RE METHADONE CONFIRMATION RECEIVED FOR 130MG OF METHADONE LAST DOSE 02/05/22 FROM [facility] [phone]
--- NOTE | 2022-02-06 13:30 | MHC.RECOVRN ---
Attempted to meet with pt. Pt sleeping and snoring, doesn't wake to name or touch. Spoke with provider, will check back in later.
[2022-02-06] MEDS: 0.9 % Sodium Chloride 1,000 ML 999 ML IV (13:50)
[2022-02-06 14:12] LABS: Troponin-I High Sensitivity < 3.5 ng/L (<3.5-35.0)
[2022-02-06] MEDS: methADONE HCl 20 MG/2 ML ORAL.CONC 130 MG PO (15:11)
--- NOTE | 2022-02-06 15:14 | ECG_ITS ---
Test Reason : OD Blood Pressure : / mmHG Vent. Rate : 085 BPM Atrial Rate : 085 BPM P-R Int : 148 ms QRS Dur : 100 ms QT Int : 416 ms P-R-T Axes : 043 006 021 degrees QTc Int : 495 ms Normal sinus rhythm T-wave inversion in Anterior leads Intra-ventricular conduction delay Abnormal ECG When compared with ECG of 06-FEB-2022 11:14, No significant change was found Referred By: Ila Brown Electronically Signed By:DENICE AARON MD
--- NOTE | 2022-02-06 16:15 | MHC.RECOVRN ---
Met with pt in ED21. Pt somnolent but arousable. Pt reports leaving [facility] yesterday after living and maintaining recovery there for 6-7 months. Pt had a recurrence, used cocaine last night and 3 bags heroin, [place], this morning. Pt is declining ATS at this time. Plans to return to mother's house in [place] and follow up with [facility] to see if he is able to return. Pt was going to [facility] in [place], last dosed 02/05, 130 mg. Pt received 130 mg at [facility] today. Discussed [facility], pt had gone there prior to going out to [place] and would like to return to that [facility]. Pts information sent to [facility]. Pt plans to present there tomorrow morning. If any issues arise, pt informed he could return to [facility] for his dose. Denies any questions or concerns at this time. Discussed with provider.
[2022-02-06 17:49] VITALS: BP 128/87; PULSE 99; RESP 18; TEMP 36.8; O2SAT 95
== END 2022-02-06 19:35 | disposition home or self-care (01) ==
PROVIDERS: Emergency Provider Emergency Medicine
DX: R42 Dizziness and giddiness (principal); R11.2 Nausea with vomiting, unspecified; R07.89 Other chest pain; M79.10 Myalgia, unspecified site; F11.10 Opioid abuse, uncomplicated; F14.10 Cocaine abuse, uncomplicated; Z20.822 Contact with and (suspected) exposure to COVID-19; Z91.14 Patient's other noncompliance with medication regimen; Z71.51 Drug abuse counseling and surveillance of drug abuser; Z79.899 Other long term (current) drug therapy
CPT/HCPCS: 36415; 71045; 80048; 80076; 82077; 82550; 83735; 84484; 85025; 87635; 93005; 96361; 96374; 99285; J2405

== ENCOUNTER 2023-02-01 08:26 | Outpatient (REF) | payer MEDICAID, SELFPAY ==
[2023-02-01 11:57] LABS: MANUAL DIFF FLAG NO
[2023-02-01 11:59] LABS: Basophils Percent Auto 0.4 % (0-2); Eosinophils Absolute Auto 0.2 X10*3/uL (0.0-0.4); Eosinophils Percent Auto 3.2 % (0-4); Hemoglobin 12.2 g/dl (14.0-18.0); Imm Gran Abs Auto 0.03 X10*3/uL (0.00-0.03); Imm Gran Pct Auto 0.4 % (0.0-0.4); Lymphocytes Absolute Auto 1.3 X10*3/uL (1.2-4.9); Lymphocytes Percent Auto 17.4 % (20-40); Mean Corpuscular HGB Conc 31.3 g/dl (31.0-36.0); Mean Corpuscular Volume 83.2 fL (80.0-98.0); Mean Platelet Volume 9.7 fL (9.4-12.4); Monocytes Absolute Auto 0.4 X10*3/uL (0.1-1.2); Monocytes Percent Auto 5.7 % (2-11); Neutrophils Absolute Auto 5.4 x10*3/uL (2.0-8.3); Neutrophils Percent Auto 72.9 % (45-73); Platelet Count 240 X10*3/uL (160-400); Red Blood Count 4.69 X10*6/uL (4.60-5.80); Red Cell Distribution Width 14.8 % (11.0-16.0); White Blood Count 7.4 X10*3/uL (4.8-10.8)
[2023-02-01 12:12] LABS: Alanine Aminotransferase 23 U/L (0-40); Albumin Level 4.1 g/dL (3.5-5.0); Alkaline Phosphatase 81 U/L (39-117); Anion Gap 14 (12-20); Aspartate Amino Transferase 35 U/L (5-37); Bilirubin Total 0.5 mg/dL (0.0-1.0); Blood Urea Nitrogen 9 mg/dL (9-16); Calcium 9.6 mg/dL (8.4-10.2); Carbon Dioxide 27 mmol/L (22-29); Chloride 101 mmol/L (96-108); Cholesterol 193 mg/dL (<200); Estimated Glomerular Filt Rate > 60; Glucose Random 112 mg/dL (60-115); HDL Cholesterol 48 mg/dL (>40); LDL Cholesterol Calculated 119 mg/dL (<100); Potassium 4.3 mmol/L (3.3-5.1); Sodium 138 mmol/L (135-145); Total Protein 7.5 g/dL (6.5-8.0); Triglycerides 132 mg/dL (<150)
== END 2023-02-01 08:27 | disposition home or self-care (01) ==
LOC: HO.HHCL 08:26
PROVIDERS: Visit Provider Nurse Practitioner Family
DX: E66.9 Obesity, unspecified (principal); R10.9 Unspecified abdominal pain
CPT/HCPCS: 36415; 80053; 80061; 85025; 87086

== ENCOUNTER 2023-02-14 21:48 | Emergency (ER) | payer MEDICAID, SELFPAY ==
--- NOTE | ~2023-02-14 | CT_ITS ---
EXAMINATION: CT ABDOMEN AND PELVIS WITHOUT CONTRAST CLINICAL INFORMATION: Right-sided abdominal pain. COMPARISON: None available. TECHNIQUE: Multidetector volumetric imaging was performed from the superior aspect of the liver through the pubic symphysis. Sagittal and coronal reformatted images were obtained on the technologist's workstation. This CT examination was performed using dose optimization techniques as appropriate, variously including the following: *Automated exposure control *Adjustment of mA and/or kV according to patient size (this includes techniques or standardized protocols for targeted exams where dose is matched to indication/reason for exam; i.e. extremities or head) *Use of iterative reconstruction technique DLP: 802 mGy-cm FINDINGS: The lack of intravenous contrast limits evaluation of the solid visceral organs including the liver, spleen, pancreas, and kidneys. LUNG BASES: The visualized lung bases are unremarkable. LIVER, GALLBLADDER, AND BILIARY TREE: Enlarged liver measuring 20 cm craniocaudally with decreased attenuation consistent with hepatic steatosis. Otherwise, liver is normal in shape without discrete focal lesion in this limited noncontrast examination. The gallbladder is unremarkable with no evidence of radiopaque gallstones, gallbladder wall thickening, or obvious pericholecystic inflammatory changes. PANCREAS: Fatty infiltration. No peripancreatic fat stranding or free fluid. No main ductal dilatation. SPLEEN: Enlarged measuring 15 cm in anteroposterior dimension. ADRENAL GLANDS: Unremarkable. KIDNEYS AND URETERS: The kidneys are normal in size, shape, and attenuation. No hydronephrosis, hydroureter, or calculi seen. No perinephric stranding. BLADDER: Unremarkable. GASTROINTESTINAL TRACT: Moderate size hiatal hernia. The stomach and the small bowel are nondilated. Normal appendix. No pericolonic fat stranding or free fluid. No evidence of bowel obstruction. ABDOMINAL WALL: No significant hernia is appreciated. LYMPH NODES: No lymphadenopathy by CT short axis size criteria. VASCULAR: Normal caliber abdominal aorta. PELVIC VISCERA: Unremarkable. OSSEOUS STRUCTURES: No acute or aggressive appearing osseous findings. Moderate intervertebral disc height loss with vacuum disc phenomena at L4-L5 and L5-S1. Grade 1 retrolisthesis of L5 on S1. CT/CT abdomen pelvis wo IV con IMPRESSION: 1. Hepatosplenomegaly and hepatic steatosis. 2. Moderate size hiatal hernia.
[2023-02-14 21:51] VITALS: BP 131/106; PULSE 82; RESP 20; TEMP 36.6; O2SAT 97; BMI 41.5
[2023-02-14 22:57] LABS: Basophils Percent Auto 0.5 % (0-2); Eosinophils Absolute Auto 0.1 X10*3/uL (0.0-0.4); Eosinophils Percent Auto 0.8 % (0-4); Hematocrit 40.5 % (42.0-52.0); Hemoglobin 13.3 g/dl (14.0-18.0); Imm Gran Abs Auto 0.04 X10*3/uL (0.00-0.03); Imm Gran Pct Auto 0.5 % (0.0-0.4); Lymphocytes Absolute Auto 1.6 X10*3/uL (1.2-4.9); Lymphocytes Percent Auto 18.9 % (20-40); MANUAL DIFF FLAG NO; Mean Corpuscular HGB Conc 32.8 g/dl (31.0-36.0); Mean Corpuscular Hemoglobin 25.6 pg (27.0-33.0); Monocytes Absolute Auto 0.7 X10*3/uL (0.1-1.2); Monocytes Percent Auto 8.1 % (2-11); Neutrophils Percent Auto 71.2 % (45-73); Platelet Count 256 X10*3/uL (160-400); Red Blood Count 5.19 X10*6/uL (4.60-5.80); Red Cell Distribution Width 14.8 % (11.0-16.0); White Blood Count 8.4 X10*3/uL (4.8-10.8)
[2023-02-14 23:11] LABS: Alanine Aminotransferase 12 U/L (0-40); Albumin Level 4.3 g/dL (3.5-5.0); Alkaline Phosphatase 82 U/L (39-117); Anion Gap 17 (12-20); Aspartate Amino Transferase 18 U/L (5-37); Bilirubin Direct 0.2 mg/dL (0.0-0.5); Bilirubin Total 0.5 mg/dL (0.0-1.0); Blood Urea Nitrogen 15 mg/dL (9-16); Calcium 9.3 mg/dL (8.4-10.2); Carbon Dioxide 21 mmol/L (22-29); Chloride 101 mmol/L (96-108); Creatinine Clr Calc Pharmacy 140.6; Estimated Glomerular Filt Rate > 60; Glucose Random 150 mg/dL (60-115); Lipase 10 U/L (8-78); Potassium 3.9 mmol/L (3.3-5.1); Sodium 135 mmol/L (135-145); Total Protein 7.9 g/dL (6.5-8.0)
[2023-02-14 23:18] LABS: Troponin-I High Sensitivity < 2.7 ng/L (<3.5-35.0)
[2023-02-14 23:27] VITALS: BP 147/95; PULSE 75; RESP 16; TEMP 36.6; O2SAT 100
--- NOTE | 2023-02-14 23:43 | ED.ABDPAIN ---
HPI - Abdominal Pain General Chief Complaint: Abdominal Pain Stated Complaint: vomiting, neck pain Time Seen by Provider: 02/14/23 23:28 Source: patient Mode of arrival: ambulatory Limitations: no limitations History of Present Illness HPI narrative: 37-year-old male came in for evaluation of abdominal pain, nausea, vomiting X1 day. Chest burning since yesterday likely due to acid reflux. Patient started with epigastric/right upper quadrant abdominal pain since yesterday with nausea and vomiting. No fever or chills. Related Data Previous Rx's Medication Instructions Recorded omeprazole 40 mg capsule,delayed 40 mg PO DAILY #14 caps 02/15/23 release ondansetron 4 mg disintegrating 4 mg PO Q6-8H PRN nausea and 02/15/23 tablet vomiting #10 tabs Allergies Allergy/AdvReac Type Severity Reaction Status Date / Time penicillin V Allergy Unknown Unknown Verified 12/15/20 00:36 Penicillins [PENICILLINS] Allergy Unknown RASH Verified 12/15/20 00:36 penicillin Allergy Unknown Unknown Uncoded 12/15/20 00:36 Review of Systems Review of Systems all other systems are reviewed and are negative Constitutional: Reports as per HPI and Reports no additional constitutional complaints Eyes: Reports as per HPI and Reports no additional eye complaints Reports system reviewed and no additional complaints, except as documented Cardiovascular: Reports as per HPI and Reports no additional cardiovascular complaints Respiratory: Reports as per HPI and Reports no additional respiratory complaints Gastrointestinal: Reports as per HPI and Reports no additional gastrointestinal complaints Genitourinary: Reports no additional female genitourinary complaints Musculoskeletal: Reports no additional musculoskeletal complaints Skin/Breast: Reports system reviewed and no additional complaints, except as docu Psychiatric: Reports no additional psychiatric complaints Endocrine: Reports no additional endocrine complaints Hematologic/Lymphatic: Reports no additional hematologic/lymphatic complaints Allergic/Immunologic: Reports no additional allergic/immunologic complaints Reports system reviewed and no additional complaints, except as documented and Reports Abnormal speech present [facility] Past Medical History Medical History Polysubstance abuse No known health problems Social History Social History Alcohol intake: former Patient Tobacco Use Status: Never used Tobacco Smoked in Last 30 Days: No Use of substances other than those prescribed or required for medical reasons: Yes Substance Use Type: Marijuana Substance Use Frequency: Daily Advance Directives: No Advance Directives Information Provided: Yes Physical Exam ED Vital Signs: Vital Signs - 24 hr 02/14/23 21:51 02/14/23 23:27 02/15/23 02:00 Temperature 97.8 F 97.9 F 98.1 F Pulse Rate 82 75 78 Respiratory Rate 20 16 18 Blood Pressure 131/106 H 147/95 H 129/79 Pulse Oximetry 97 100 98 Oxygen Delivery Method Room Air Room Air Room Air BMI result Body Mass Index 41.5 Vital signs have been reviewed and appear to be correct. Blood pressure elevated. Heart rate normal. Respiratory rate normal. Temperature normal. Oxygen saturation normal. Appearance: Alert. Oriented X3. No acute distress. Head: Normal external exam. Normocephalic. Atraumatic. No Hu[place] signs noted. No raccoon eyes noted Eyes: PERRLA. EOMI. Conjunctiva and sclera normal. Eyelids normal. ENT: TM's Normal. Pharynx normal. Uvula midline. Moist mucous membranes. No trismus noted. No drooling noted. No muffled voice noted. Neck: Normal inspection. Neck supple. FROM. No adenopathy. Thyroid Normal. No meningeal signs. No neck mass noted. CVS: Normal heart rate and rhythm. Heart sound normal. No murmurs noted. Pulses normal throughout. Respiratory: No respiratory distress. Painless inspiration. Breath sounds normal. No wheezes/rales/rhonchi noted. Chest nontender. No accessory muscle usage noted or decreased air movement noted. Abdomen: Soft and nontender. Bowel sounds normal in all 4 quadrants. No distention noted. No organomegaly noted. No visible injury noted. Back: No CVA tenderness. Full range of motion noted. Skin: Skin warm and dry. Normal skin color. Normal skin turgor. No rashes/lesions/lacerations noted. Extremities: No lower extremity edema. Extremities exhibit normal range of motion. Extremities nontender. Neuro: Oriented X 3. Cranial nerve exam: II-XII are grossly intact No motor deficit. No sensory deficit. Reflexes normal. Course Reevaluation(s) Reevaluation #1: CT revealing no evidence of gallbladder disease with normal LFTs and improvement of patient's symptoms, the patient's symptoms is likely due to gastritis, patient now feels better able to tolerate p.o. intake will discharge the patient on Prilosec/ anti nausea medication and follow-up with PCP to get an outpatient GI referral. Time: 03:45 Medical Decision Making Differential Diagnosis Differential Diagnoses: The differential diagnosis associated with the presentation includes ( Gastritis, gastroenteritis, food poisoning, gallbladder disease, pancreatitis, gallbladder disease, pancreatitis, appendicitis, kidney stone, electrolyte abnormality, severe anemia.) Admission/Observation Consideration of admission/observation: Escalation of care including admission/observation considered Lab Data MDM Lab Attestation statement: I reviewed the patient's lab results. 02/14/23 22:52 02/14/23 22:52 Labs: Lab Results 02/14/23 02/14/23 02/15/23 Range/Units 22:52 23:31 01:56 WBC 8.4 (4.8-10.8) X10*3/uL RBC 5.19 (4.60-5.80) X10*6/uL Hgb 13.3 L (14.0-18.0) g/dl Hct 40.5 L (42.0-52.0) % MCV 78.0 L (80.0-98.0) fL MCH 25.6 L (27.0-33.0) pg MCHC 32.8 (31.0-36.0) g/dl RDW 14.8 (11.0-16.0) % Plt Count 256 (160-400) X10*3/uL MPV 9.0 L (9.4-12.4) fL Immature Gran % (Auto) 0.5 H (0.0-0.4) % Neut % (Auto) 71.2 (45-73) % Lymph % (Auto) 18.9 L (20-40) % [place] % (Auto) 8.1 (2-11) % Eos % (Auto) 0.8 (0-4) % Baso % (Auto) 0.5 (0-2) % Lymph # (Auto) 1.6 (1.2-4.9) X10*3/uL [place] # (Auto) 0.7 (0.1-1.2) X10*3/uL Eos # (Auto) 0.1 (0.0-0.4) X10*3/uL Baso # (Auto) 0.0 (0.0-0.2) X10*3/uL Abs Immat Gran (auto) 0.04 H (0.00-0.03) X10*3/uL Absolute Neuts (auto) 6.0 (2.0-8.3) x10*3/uL Absolute Nucleated RBC 0.000 (0.0-0.012) X10*3/uL Nucleated RBC % (auto) 0.0 (0.0-0.2) /100WBC Sodium 135 (135-145) mmol/L Potassium 3.9 (3.3-5.1) mmol/L Chloride 101 (96-108) mmol/L Carbon Dioxide 21 L (22-29) mmol/L Anion Gap 17 (12-20) BUN 15 (9-16) mg/dL Creatinine 0.91 (0.5-1.4) mg/dL Estim Creat Clear Calc 140.6 Estimated GFR > 60 Random Glucose 150 H (60-115) mg/dL Calcium 9.3 (8.4-10.2) mg/dL Total Bilirubin 0.5 (0.0-1.0) mg/dL Direct Bilirubin 0.2 (0.0-0.5) mg/dL AST 18 (5-37) U/L ALT 12 (0-40) U/L Alkaline Phosphatase 82 (39-117) U/L Troponin I High Sens < 2.7 (<3.5-35.0) ng/L Total Protein 7.9 (6.5-8.0) g/dL Albumin 4.3 (3.5-5.0) g/dL Lipase 10 (8-78) U/L Urine Color Dark Yellow Urine Appearance Clear Urine pH 6.5 (5.0-9.0) Ur Specific [place] >= 1.030 H (1.005-1.025) Urine Protein Trace (Neg-Trace) mg/dL Urine Glucose (UA) Negative (Negative) mg/dL Urine Ketones >=160 (Negative) mg/dL Urine Blood Negative (Negative) Urine Nitrite Negative (Negative) Ur Leukocyte Esterase Trace H (Negative) Urine RBC 0-2 (0-2) /HPF Urine WBC 0-5 (0-5) /HPF Ur Squamous Epith Cells 0-2 (0-2) /HPF Urine Bacteria None Seen (None Seen) Hyaline Casts 0-2 (0-2) /LPF Urine Opiates Screen Not Detected (Not Detect) Urine Fentanyl Screen Not Detected (Not Detect) Ur Barbiturates Screen Not Detected (Not Detect) Ur Phencyclidine Scrn Not Detected (Not Detect) Ur Amphetamines Screen Not Detected (Not Detect) U Benzodiazepines Scrn Not Detected (Not Detect) Urine Cocaine Screen Not Detected (Not Detect) U Marijuana (THC) Screen POSITIVE H (Not Detect) COVID-19 (DIRK) Negative (Negative) COVID-19 Clin Com See Note Influenza Type A (PCR) NEGATIVE (Negative) Influenza Type B (PCR) NEGATIVE (Negative) RSV RNA Qual (PCR) NEGATIVE (Negative) SARS-CoV-2 RNA (RT-PCR) NEGATIVE (Negative) Independent Interpretation I performed an independent interpretation of an: CT Scan ( Abdomen and pelvis:1. Hepatosplenomegaly and hepatic steatosis. 2. Moderate size hiatal hernia.) Radiology Impression Discussion of test interpretation with radiology: I have reviewed the radiologist's reading. Medications Administered Discontinued Medications Generic Name Dose Route Start Last Admin Trade Name Freq PRN Reason Stop Dose Admin Al Hydroxide/Mg Hydroxide 30 ml 02/14/23 23:41 02/15/23 00:14 Magnesium Hydrox/Alum Hydrox 30 Ml Oral.Susp PO 02/14/23 23:42 30 ml ONCE ONE Administration Famotidine 20 mg 02/14/23 23:41 02/15/23 00:14 Famotidine/Pf 20 Mg/2 Ml Vial IVPUSH 02/14/23 23:42 20 mg ONCE ONE Administration Sodium Chloride 1,000 mls @ 999 mls/hr 02/14/23 23:41 02/15/23 01:25 Ns IV 02/15/23 00:41 Infused .Q1H1M ONE Infusion Ketorolac Tromethamine 30 mg 02/14/23 23:41 02/15/23 00:13 Ketorolac Tromethamine 30 Mg/Ml Vial IVPUSH 02/14/23 23:42 30 mg ONCE ONE Administration Ondansetron HCl 4 mg 02/14/23 23:41 02/15/23 00:14 Ondansetron Hcl 4 Mg/2 Ml Vial IVPUSH 02/14/23 23:42 4 mg ONCE ONE Administration Discharge Plan Discharge Clinical Impression: Gastritis Qualifiers: Gastritis type: unspecified gastritis Chronicity: acute Gastritis bleeding: without bleeding Qualified Code(s): K29.00 - Acute gastritis without bleeding Patient Disposition: Home, Self-Care Instructions: Gastritis (ED) Prescriptions: New omeprazole 40 mg capsule,delayed release(DR/EC) 40 mg PO DAILY Qty: 14 0RF ondansetron 4 mg tablet,disintegrating 4 mg PO Q6-8H PRN (Reason: nausea and vomiting) Qty: 10 0RF Referrals: Norma Camarena MD [Physician] - Stand Alone Forms: Work/School Release
[2023-02-15] MEDS: Ketorolac Tromethamine 30 MG/ML VIAL IVPUSH (00:13)
[2023-02-15] MEDS: Famotidine/PF 20 MG/2 ML VIAL IVPUSH (00:14)
[2023-02-15] MEDS: ondansetron HCL 4 MG/2 ML VIAL IVPUSH (00:14)
[2023-02-15] MEDS: 0.9 % Sodium Chloride 1,000 ML 999 ML IV (00:14)
[2023-02-15] MEDS: Magnesium Hydrox/Alum Hydrox 30 ML ORAL.SUSP PO (00:14)
[2023-02-15 00:28] LABS: COVID-19 Test Negative (Negative); IDNOW Serial# 08D9AD1C
[2023-02-15 00:42] LABS: Influenza A PCR NEGATIVE (Negative); Influenza B PCR NEGATIVE (Negative); Resp Syncy Virus RNA Qual PCR NEGATIVE (Negative); SARS COV2 PCR INHOUSE NEGATIVE (Negative)
[2023-02-15 02:00] VITALS: BP 129/79; PULSE 78; RESP 18; TEMP 36.7; O2SAT 98
[2023-02-15 02:05] LABS: Appearance Urine Clear; Color Urine Dark Yellow; Glucose Urine UA Negative (Negative); Leukocyte Esterase Urine Trace (Negative); Nitrite Urine Negative (Negative); PH 6.5 (5.0-9.0); Specific Gravity - Urine >= 1.030 (1.005-1.025); UMIC TRIGGER UACC YES; Urine Blood Negative (Negative); Urine Ketones >=160 mg/dL (Negative); Urine Protein Trace mg/dL (Neg-Trace)
[2023-02-15 02:10] LABS: Bacteria Urine None Seen (None Seen); Hyaline Casts Urine 0-2 /LPF (0-2); RBC Urine 0-2 /HPF (0-2); Squamous Epithelial Cell Urine 0-2 /HPF (0-2); WBC Urine 0-5 /HPF (0-5)
[2023-02-15 02:14] LABS: Amphetamine Screen Urine Not Detected (Not Detect); Barbiturates, Urine Not Detected (Not Detect); Benzodiazepines Screen Urine Not Detected (Not Detect); Cannabinoid Screen Urine POSITIVE (Not Detect); Cocaine Screen Urine Not Detected (Not Detect); Fentanyl, urine Not Detected (Not Detect); Opiate Screen Urine Not Detected (Not Detect); Phencyclidine Screen Urine Not Detected (Not Detect)
[2023-02-15 04:17] VITALS: BP 130/78; PULSE 79; RESP 16; TEMP 37.1; O2SAT 98
== END 2023-02-15 04:25 | disposition home or self-care (01) ==
PROVIDERS: Emergency Provider Emergency Medicine
DX: K29.00 Acute gastritis without bleeding (principal); Z20.822 Contact with and (suspected) exposure to COVID-19; Z20.828 Contact with and (suspected) exposure to other viral communicable diseases; F19.10 Other psychoactive substance abuse, uncomplicated
CPT/HCPCS: 0241U; 36415; 74176; 80053; 80307; 81001; 82248; 83690; 84484; 85025; 87635; 96361; 96374; 96375; 99284; 99285; J1885; J2405

== ENCOUNTER 2023-03-19 11:07 | Outpatient (REF) | payer MEDICAID, SELFPAY ==
[2023-03-26 13:23] LABS: H Pylori Breath Test Negative (Negative)
== END 2023-03-19 11:08 | disposition home or self-care (01) ==
LOC: HO.LAB 11:07
PROVIDERS: PCP Nurse Practitioner Family; Visit Provider Nurse Practitioner Family
DX: R10.13 Epigastric pain (principal); K21.9 Gastro-esophageal reflux disease without esophagitis; K29.70 Gastritis, unspecified, without bleeding; R11.2 Nausea with vomiting, unspecified; K59.01 Slow transit constipation
CPT/HCPCS: 83013; 99212

== ENCOUNTER 2023-03-19 11:07 | Outpatient (AMB) | payer MEDICAID, SELFPAY ==
[2023-03-19 11:19] VITALS: BP 115/76; PULSE 76; O2SAT 98; BMI 41.2
--- NOTE | 2023-03-19 11:19 | A.OFFVIS_ITS ---
Intake Vital Signs 03/19/23 11:19 Height 5 ft 7 in Weight 263 lb 3.711 oz BMI 41.2 BP 115/76 Blood Pressure Location Lt brachial Position Sitting Pulse 76 Pulse Source Pulse Oximeter Pulse Oximetry (%) 98 Oxygen Delivery Method Room Air Intake Visit Reasons: Acute gastritis, presence of bleeding unspecified Intake Note: Pt presents to the office today for acute gastritis. Pt states he is having severe discomfort in his stomach. Pt states his last bowel movement was about 2- 3 days ago. Pt states he had an episode of vomiting today. Pt states he experiences heartburn everyday. Allergies penicillin V Allergy (Unknown, Verified 03/19/23 11:21) Unknown Penicillins [PENICILLINS] Allergy (Unknown, Verified 03/19/23 11:21) RASH penicillin Allergy (Unknown, Uncoded 03/19/23 11:21) Unknown HPI Acute gastritis, presence of bleeding unspecified HPI Details 37-year-old male with past medical histo ry of anxiety, depression, polysubstance abuse mainly cocaine, currently on methadone is here today for initial consultation. Patient was seen in the ER multiple times for abdominal pain. Patient describes his pain is in the epigastric area and it is there all the time. Patient reports that pain sometimes so strong that it takes his breath away. Patient also feels nauseous and reports abdominal pain, bloating. Patient states that he is having trouble moving his bowels. History of constipation. States that when he moves his bowels he does not feel like he empties completely. Patient reports also feeling very nauseous. Smokes marijuana and reports that he does not believe that it is due to him smoking marijuana that he feels this way. Patient reports that he eats late at night and many times when he does he lays down flat. Last visit in the ER was month ago. CT scan was done then and patient was found to have no acute processes. Moderate hiatal hernia, fatty and enlarged liver. Patient does have a family history of liver cirrhosis in his grandfather. At the time of ED visit patient had no leukocytosis no pancreatitis was again identify according to labs when reviewed. Patient reports that he was given script for Zofran and omeprazole and states that he was feeling well after he took it. Last night patient reports that he a had sent which with steak and cheese. Patient reports to be feeling nauseous today. [facility] Medical History (Reviewed 03/19/23 @ 11: by Iza Sandoval MA) Polysubstance abuse No known health problems Social History (Reviewed 03/19/23 @ : by Iza Sandoval MA) Alcohol intake: former Patient Tobacco Use Status: Never used Tobacco Substance Use Type: Marijuana Review of Systems Const Denies weight gain and Denies weight loss ENT Reports no additional complaints, Denies dysphagia and Denies odynophagia Card Reports no additional complaints Resp Reports no additional complaints GI Denies abdominal pain, Denies belching, Denies melena, Denies bloating, Denies change in bowel habits, Denies dysphagia, Denies excessive flatus, Denies dyspepsia, Denies heartburn, Denies diarrhea, Denies loose stools, Denies nausea, Denies odynophagia and Denies vomiting Reports no additional complaints Musc Reports no additional complaints Neuro Reports no additional complaints Psych Reports no additional complaints Endo Reports no additional complaints Physical Exam Vital Signs: Last Vital Signs Pulse 76 03/19/23 11:19 BP 115/76 03/19/23 11:19 Pulse Ox 98 03/19/23 11:19 Oxygen Delivery Method Room Air 03/19/23 11:19 BMI result Body Mass Index 41.2 Const General: cooperative and in distress Nutritional Appearance: obese Orientation/consciousness: patient oriented x3 HEENT Head: Yes normal to inspection, Yes normocephalic and Yes atraumatic Face and sinus: Yes normal facial exam Mouth: Normal oral and palatal mucosa present Throat: Yes posterior oropharynx normal, Yes tonsils normal and Yes uvula midline Eyes General: appearance normal, both eyes and all related structures Neck Neck: Yes normal visual inspection, Yes full ROM and Yes trachea midline Thyroid: Thyroid normal Resp Effort & Inspection: normal respiratory effort, able to speak in complete sentences, no tracheal deviation and symmetric chest movement Auscultation: clear to auscultation bilaterally Cardio Rate: regular rate GI Inspection: Yes normal to inspection, No distended and Yes obesity Palpation (GI): Soft to palpation, not firm, nontender and No hepatosplenomegaly present Auscultation: normal bowel sounds General: Yes no CVA tenderness Back/Spine/Pelvis Back: no CVA tenderness Skin General skin exam: elasticity normal, turgor normal and dry skin Neuro General: patient oriented x3 Psych Appearance: grossly normal Mental Status: mental status grossly normal Affect: normal affect Results Reviewed Results Reviewed: ABDOMINAL CT SCAN FINDINGS: The lack of intravenous contrast limits evaluation of the solid visceral organs including the liver, spleen, pancreas, and kidneys. LUNG BASES: The visualized lung bases are unremarkable. LIVER, GALLBLADDER, AND BILIARY TREE: Enlarged liver measuring 20 cm craniocaudally with decreased attenuation consistent with hepatic steatosis. Otherwise, liver is normal in shape without discrete focal lesion in this limited noncontrast examination. The gallbladder is unremarkable with no evidence of radiopaque gallstones, gallbladder wall thickening, or obvious pericholecystic inflammatory changes. PANCREAS: Fatty infiltration. No peripancreatic fat stranding or free fluid. No main ductal dilatation. SPLEEN: Enlarged measuring 15 cm in anteroposterior dimension. ADRENAL GLANDS: Unremarkable. KIDNEYS AND URETERS: The kidneys are normal in size, shape, and attenuation. No hydronephrosis, hydroureter, or calculi seen. No perinephric stranding. BLADDER: Unremarkable. GASTROINTESTINAL TRACT: Moderate size hiatal hernia. The stomach and the small bowel are nondilated. Normal appendix. No pericolonic fat stranding or free fluid. No evidence of bowel obstruction. ABDOMINAL WALL: No significant hernia is appreciated. LYMPH NODES: No lymphadenopathy by CT short axis size criteria. VASCULAR: Normal caliber abdominal aorta. PELVIC VISCERA: Unremarkable. OSSEOUS STRUCTURES: No acute or aggressive appearing osseous findings. Moderate intervertebral disc height loss with vacuum disc phenomena at L4-L5 and L5-S1. Grade 1 retrolisthesis of L5 on S1. CT/CT abdomen pelvis wo IV con IMPRESSION: 1. Hepatosplenomegaly and hepatic steatosis. 2. Moderate size hiatal hernia. Assessment & Plan Assessment & Plan (1) GERD (gastroesophageal reflux disease): Code(s): K21.9 - Gastro-esophageal reflux disease without esophagitis Qualifiers: Esophagitis presence: esophagitis presence not specified Qualified Code(s): K21.9 - Gastro-esophageal reflux disease without esophagitis (2) Epigastric abdominal pain: Code(s): R10.13 - Epigastric pain (3) Constipation: Code(s): K59.00 - Constipation, unspecified Qualifiers: Constipation type: slow transit constipation Qualified Code(s): K59.01 - Slow transit constipation (4) Nausea & vomiting: Code(s): R11.2 - Nausea with vomiting, unspecified Qualifiers: Vomiting type: unspecified Qualified Code(s): R11.2 - Nausea with vomiting, unspecified Plan Will check for H pylori to , patient will be sent for upper GI series to evaluate hernia and truck for reflux. Patient most likely has severe office reflux. Encouraged patient not to eat late at night. Staying upright for 3 hours after meals discussed with patient. Patient will be started on esomeprazole 40 mg in the morning. Patient can also take famotidine at bedtime. Will check for H pylori in the office today and treat empirically if positive. Patient will take Senokot to help him move his bowels. Patient was also encouraged to avoid dietary triggers. Increase fluid intake and activity to promote better bowel motility. Discussed with patient the importance of avoiding fatty food. List of food recommended high protein diet, staying away from carbs and fat. Patient can use Zofran for nausea. I will see him in 3 weeks, sooner on as needed basis. Patient is agreeable to this plan and verbalizes understanding of instructions. He was given the opportunity to ask questions and all questions answered. Thank you for allowing me to participate in his care Orders: Orders [place] upper GI series Today K21.9 - Gastro-esophageal reflux disease without esophagitis, R10.13 - Epigastric pain H Pylori Breath Test Today R10.13 - Epigastric pain Medications: New esomeprazole magnesium (Nexium) 40 mg PO DAILY 30 caps 5RF K21.9 - Gastro- esophageal reflux disease without esophagitis ondansetron 4 mg PO Q8H PRN 20 tabs 0RF nausea and vomiting R11.0 - Nausea sennosides (Natural Senna Laxative) 17.2 mg (2 x 8.6 mg) PO BEDTIME 60 tabs 1RF constipation K59.00 - Constipation, unspecified famotidine 40 mg PO BEDTIME 30 tabs 3RF K21.9 - Gastro-esophageal reflux disease without esophagitis Coding Level of Care Code New Pt Level 4 (38215) Diagnoses Gastroesophageal reflux disease, unspecified whether esophagitis present K21.9 Esophagitis presence: esophagitis presence not specified Epigastric abdominal pain R10.13 Slow transit constipation K59.01 Constipation type: slow transit constipation Nausea and vomiting, unspecified vomiting type R11.2 Vomiting type: unspecified Time Spent (min) 45 Comment 30 minutes spent with patient and additional 15 minutes spent reviewing his records
== END 2023-03-19 13:05 | disposition home or self-care (01) ==
PROVIDERS: PCP Nurse Practitioner Family; Visit Provider Nurse Practitioner Family
DX: K21.9 Gastro-esophageal reflux disease without esophagitis (principal); R10.13 Epigastric pain; K59.01 Slow transit constipation; R11.2 Nausea with vomiting, unspecified
CPT/HCPCS: 99204

== ENCOUNTER 2023-04-12 13:33 | Outpatient (AMB) | payer MEDICAID, SELFPAY ==
--- NOTE | 2023-04-12 13:43 | MHC.OFFVIS ---
Intake Vital Signs 04/12/23 13:44 Height 5 ft 7 in Weight 260 lb BMI 40.7 BP 118/81 Blood Pressure Location Lt brachial Position Sitting Pulse 80 Temp 96.6 F L Intake Visit Reasons: 3 week follow up Intake Note: Patient 3 week follow up Patient cc: N/V, abdominal pain, and some acid reflex. Slip Tender Required: No Accompanied by: Self / Same As Patient Allergies penicillin V Allergy (Unknown, Verified 04/12/23 13:43) Unknown Penicillins [PENICILLINS] Allergy (Unknown, Verified 04/12/23 13:43) RASH penicillin Allergy (Unknown, Uncoded 03/19/23 11:21) Unknown HPI 3 week follow up HPI Details LAST VISIT GERD (gastroesophageal reflux disease) Epigastric abdominal pain Constipation Nausea & vomiting Plan Will check for H pylori to , patient will be sent for upper GI series to evaluate hernia and truck for reflux. Patient most likely has severe office reflux. Encouraged patient not to eat late at night. Staying upright for 3 hours after meals discussed with patient. Patient will be started on esomeprazole 40 mg in the morning. Patient can also take famotidine at bedtime. Will check for H pylori in the office today and treat empirically if positive. Patient will take Senokot to help him move his bowels. Patient was also encouraged to avoid dietary triggers. Increase fluid intake and activity to promote better bowel motility. Discussed with patient the importance of avoiding fatty food. List of food recommended high protein diet, staying away from carbs and fat. Patient can use Zofran for nausea. I will see him in 3 weeks, sooner on as needed basis. Patient is agreeable to this plan and verbalizes understanding of instructions. He was given the opportunity to ask questions and all questions answered. ? Thank you for allowing me to participate in his care Orders Orders [place] upper GI series Today K21.9, R10.13 H Pylori Breath Test Today R10.13 Medications New esomeprazole magnesium (Nexium) 40 mg PO DAILY 30 caps 5RF K21.9 ondansetron 4 mg PO Q8H PRN 20 tabs 0RF nausea and vomiting R11.0 sennosides (Natural Senna Laxative) 17.2 mg (2 x 8.6 mg) PO BEDTIME 60 tabs 1RF constipation K59.00 famotidine 40 mg PO BEDTIME 30 tabs 3RF K21.9 TODAY'S VISIT Patient is here for follow-up. Patient is very pale, diaphoretic, reports to have some nausea and epigastric discomfort. Patient reports that after he saw me he was doing well, taking Nexium on a a in the morning and famotidine at bedtime. Patient was taking senna and was able to move his bowels well. Three days ago patient reports that he had staying in she sent which later down immediately after eating and yesterday started having nausea and epigastric pain. Patient was diagnosed with severe hiatal hernia on CT scan back in February. Awaiting for upper GI series and scheduled for June. Negative H pylori test. Patient denies using any drugs except smoking marijuana as that makes him feel better. Patient denies any fever or chills. Patient denies any SOB with or without exertion. Patient denies any chest pain. Unable to finish exam. Patient with projectile vomiting. Patient will be sent down to emergency room to get evaluated. Reports to charge nurse given. Patient will be sent down with medical coding manager via wheelchair [facility] Medical History Polysubstance abuse No known health problems Social History Alcohol intake: former Patient Tobacco Use Status: Never used Tobacco Substance Use Type: Marijuana Review of Systems Const Denies weight gain and Denies weight loss ENT Reports no additional complaints, Denies dysphagia and Denies odynophagia Card Reports no additional complaints Resp Reports no additional complaints GI Reports abdominal pain (Epigastric pain), Denies belching, Denies melena, Reports bloating, Denies change in bowel habits, Denies dysphagia, Denies excessive flatus, Reports dyspepsia, Reports heartburn, Denies diarrhea, Denies loose stools, Reports nausea, Denies odynophagia and Reports vomiting Reports no additional complaints Musc Reports no additional complaints Neuro Reports no additional complaints Psych Reports no additional complaints Endo Reports no additional complaints Physical Exam Const General: in distress and ill appearing Nutritional Appearance: obese Orientation/consciousness: patient oriented x3 Neck Neck: Yes normal visual inspection, Yes full ROM and Yes trachea midline Resp Effort & Inspection: normal respiratory effort, able to speak in complete sentences, no tracheal deviation and symmetric chest movement Auscultation: clear to auscultation bilaterally Cardio Rate: regular rate GI Inspection: Yes normal to inspection and No distended Palpation (GI): Soft to palpation, not firm, nontender and No hepatosplenomegaly present Auscultation: normal bowel sounds General: Yes no CVA tenderness Back/Spine/Pelvis Back: no CVA tenderness Skin General skin exam: elasticity normal, turgor normal and dry skin Neuro General: patient oriented x3 Psych Appearance: grossly normal Mental Status: mental status grossly normal Assessment & Plan Assessment & Plan (1) GERD (gastroesophageal reflux disease): Code(s): K21.9 - Gastro-esophageal reflux disease without esophagitis Qualifiers: Esophagitis presence: esophagitis presence not specified Qualified Code(s): K21.9 - Gastro-esophageal reflux disease without esophagitis (2) Epigastric abdominal pain: Code(s): R10.13 - Epigastric pain (3) Constipation: Code(s): K59.00 - Constipation, unspecified Qualifiers: Constipation type: slow transit constipation Qualified Code(s): K59.01 - Slow transit constipation (4) Nausea & vomiting: Code(s): R11.2 - Nausea with vomiting, unspecified Qualifiers: Vomiting type: projectile vomiting Qualified Code(s): R11.12 - Projectile vomiting (5) Hiatal hernia: Code(s): K44.9 - Diaphragmatic hernia without obstruction or gangrene Plan Patient will be seen in the ER to evaluate symptoms of nausea and vomiting. DD include incarcerated hiatal hernia, gastritis, pancreatitis. Patient will call the office to schedule appointment. Will work on moving his upper GI series sooner. Patient will need to be also scheduled for upper endoscopy. Coding Level of Care Code New Pt Level 5 (92978) Diagnoses Gastroesophageal reflux disease, unspecified whether esophagitis present K21.9 Esophagitis presence: esophagitis presence not specified Epigastric abdominal pain R10.13 Slow transit constipation K59.01 Constipation type: slow transit constipation Projectile vomiting with nausea R11.12 Vomiting type: projectile vomiting Hiatal hernia K44.9 Time Spent (min) 45 Comment 25 min and patient and additional 20 min spent coordinating care and reviewing records
[2023-04-12 13:44] VITALS: BP 118/81; PULSE 80; TEMP 35.9; BMI 40.7
== END 2023-04-12 15:07 | disposition home or self-care (01) ==
PROVIDERS: PCP Nurse Practitioner Family; Visit Provider Nurse Practitioner Family
DX: K21.9 Gastro-esophageal reflux disease without esophagitis (principal); K59.01 Slow transit constipation; R11.12 Projectile vomiting; K44.9 Diaphragmatic hernia without obstruction or gangrene
CPT/HCPCS: 99215

== ENCOUNTER → 2023-04-12 13:33 | Outpatient (BNVA) | payer MEDICAID, SELFPAY | PROVIDERS: PCP Nurse Practitioner Family; Visit Provider Nurse Practitioner Family ==

== ENCOUNTER 2023-04-12 14:06 | Emergency (ER) | payer MEDICAID, SELFPAY ==
[2023-04-12 14:21] VITALS: BP 114/90; PULSE 81; RESP 18; TEMP 36.8; O2SAT 97; BMI 42.0
--- NOTE | 2023-04-12 14:33 | ED_ITS ---
HPI - General Adult General Chief complaint: Abdominal Pain Stated complaint: Vomiting sent by GI Time Seen by Provider: 04/12/23 14:22 History of Present Illness HPI narrative: The patient is a 37-year-old male the who has a history of episodic vomiting. He uses THC. Then today he had a scheduled appointment with the gastroenterology office. He arrived looking quite ill. He says he has been vomiting for the last 4 days. He looked sufficiently ill that the gastroenterology office sent him to the emergency room. The patient reports that he has had previous episodes of feeling this on well. The patient was last year for similar symptoms in mid February. He subsequently followed up with gastroenterology several weeks ago and again today. The patient is on methadone. He was given his usual dose of methadone this morning. Related Data Home Medications Medication Instructions Recorded Confirmed fluoxetine 10 mg capsule 10 mg PO BEDTIME 03/19/23 naproxen 500 mg tablet 500 mg PO BID 03/19/23 prazosin 5 mg capsule 5 mg PO BEDTIME 03/19/23 quetiapine 25 mg tablet 25 mg PO BEDTIME 03/19/23 Previous Rx's Medication Instructions Recorded esomeprazole magnesium 40 mg 40 mg PO DAILY #30 caps 03/19/23 capsule,delayed release (Nexium) famotidine 40 mg tablet 40 mg PO BEDTIME #30 tabs 03/19/23 ondansetron 4 mg disintegrating 4 mg PO Q8H PRN nausea and 03/19/23 tablet vomiting #20 tabs sennosides 8.6 mg tablet (Natural 17.2 mg (2 x 8.6 mg) PO BEDTIME 03/19/23 Senna Laxative) constipation #60 tabs Allergies Allergy/AdvReac Type Severity Reaction Status Date / Time penicillin V Allergy Unknown Unknown Verified 04/12/23 14:25 Penicillins [PENICILLINS] Allergy Unknown RASH Verified 04/12/23 14:25 penicillin Allergy Unknown Unknown Uncoded 03/19/23 11:21 Review of Systems 2 Review of Systems: Yes all other systems are reviewed and are negative PMFSH Past Medical History Onset Date is defined in the Problem List Problems that require an onset date and time if occurred within 24 hrs of arrival to the ED Aortic Dissection and Rupture; Neurologic impairment; Cardiopulmonary Arrest; Endotracheal Intubation; Insertion or Replacement of Mechanical Circulatory Assist Device Medical History Polysubstance abuse No known health problems Social History Social History Alcohol intake: former Patient Tobacco Use Status: Never used Tobacco Substance Use Type: Marijuana Physical Exam ED Vital Signs: Vital Signs - 24 hr 04/12/23 14:21 04/12/23 16:05 Temperature 98.2 F 98 F Pulse Rate 81 60 Respiratory Rate 18 18 Blood Pressure 114/90 H 119/73 Pulse Oximetry 97 95 Oxygen Delivery Method Room Air Room Air BMI result Body Mass Index 42.0 Const Other: The patient was awake and alert. He looked diaphoretic and uncomfortable. HENMT Other: Face was symmetrical. Mucous membranes moist. Eyes Other: Pupils are round equal, conjunctivae are clear Neck Other: Moving his neck easily. Resp Other: Lungs are clear bilaterally. No increased work of breathing. Cardio Other: The patient had a regular rate and rhythm with no murmur GI Other: Abdomen was soft and nondistended. No focal tenderness. No rebound. No guarding. Skin Other: Skin was pale and diaphoretic. Neuro Other: The patient was awake and alert. Speech was clear. Moving all 4 extremities symmetrically. Grossly neurologically intact. Extrem Other: No peripheral edema. Medications Administered Discontinued Medications Generic Name Dose Route Start Last Admin Trade Name Freq PRN Reason Stop Dose Admin Droperidol 2.5 mg 04/12/23 14:32 04/12/23 14:58 Droperidol 5 Mg/2 Ml Vial IVPUSH 04/12/23 14:33 2.5 mg ONCE ONE Administration Famotidine 20 mg 04/12/23 14:39 04/12/23 14:58 Famotidine/Pf 20 Mg/2 Ml Vial IVPUSH 04/12/23 14:40 20 mg ONCE ONE Administration Sodium Chloride 1,000 mls @ 999 mls/hr 04/12/23 14:45 04/12/23 14:58 Ns IV 04/12/23 15:45 999 mls/hr .Q1H1M SHEELA Administration Sodium Chloride 1,000 mls @ 999 mls/hr 04/12/23 16:45 04/12/23 17:08 Ns IV 04/12/23 17:45 999 mls/hr .Q1H1M SHEELA Administration Medical Decision Making Medical Decision Making MDM Narrative: The patient is a 37-year-old male on methadone who presents with vomiting and diaphoresis. He has had similar presentations in the past. He uses cannabis. My impression is that the patient likely has cannabis hyperemesis. He was given 2.5 mg of droperidol IV as well as IV fluids and also IV famotidine. The patient was observed. Labs were unremarkable. He felt considerably better after the droperidol and was eager for discharge. He was advised to try to refrain from cannabis. Lab Data 04/12/23 15:00 04/12/23 15:00 Labs: Lab Results 04/12/23 Range/Units 15:00 WBC 10.2 (4.8-10.8) X10*3/uL RBC 4.73 (4.60-5.80) X10*6/uL Hgb 12.5 L (14.0-18.0) g/dl Hct 38.1 L (42.0-52.0) % MCV 80.5 (80.0-98.0) fL MCH 26.4 L (27.0-33.0) pg MCHC 32.8 (31.0-36.0) g/dl RDW 14.7 (11.0-16.0) % Plt Count 248 (160-400) X10*3/uL MPV 9.1 L (9.4-12.4) fL Immature Gran % (Auto) 0.8 H (0.0-0.4) % Neut % (Auto) 82.5 H (45-73) % Lymph % (Auto) 10.1 L (20-40) % [place] % (Auto) 5.9 (2-11) % Eos % (Auto) 0.4 (0-4) % Baso % (Auto) 0.3 (0-2) % Lymph # (Auto) 1.0 L (1.2-4.9) X10*3/uL [place] # (Auto) 0.6 (0.1-1.2) X10*3/uL Eos # (Auto) 0.0 (0.0-0.4) X10*3/uL Baso # (Auto) 0.0 (0.0-0.2) X10*3/uL Abs Immat Gran (auto) 0.08 H (0.00-0.03) X10*3/uL Absolute Neuts (auto) 8.4 H (2.0-8.3) x10*3/uL Absolute Nucleated RBC 0.000 (0.0-0.012) X10*3/uL Nucleated RBC % (auto) 0.0 (0.0-0.2) /100WBC Sodium 135 (135-145) mmol/L Potassium 3.2 L (3.3-5.1) mmol/L Chloride 101 (96-108) mmol/L Carbon Dioxide 24 (22-29) mmol/L Anion Gap 13 (12-20) BUN 11 (9-16) mg/dL Creatinine 0.95 (0.5-1.4) mg/dL Estim Creat Clear Calc 131.1 Estimated GFR > 60 Random Glucose 113 (60-115) mg/dL Calcium 9.3 (8.4-10.2) mg/dL Magnesium 1.7 (1.6-2.6) mg/dL Total Bilirubin 0.6 (0.0-1.0) mg/dL Direct Bilirubin 0.2 (0.0-0.5) mg/dL AST 18 (5-37) U/L ALT 14 (0-40) U/L Alkaline Phosphatase 82 (39-117) U/L C-Reactive Protein 1.37 H (< or = 0.50) mg/dL Total Protein 7.4 (6.5-8.0) g/dL Albumin 4.0 (3.5-5.0) g/dL Lipase 13 (8-78) U/L Ethyl Alcohol < 10 mg/dL Discharge Plan Discharge Clinical Impression: Hyperemesis Patient Disposition: Home, Self-Care Additional Instructions: Rest and take it easy tonight. Please continue your regular medications. I would recommend avoiding cannabis. Cannabis can be associated with episodes of significant vomiting. Please follow-up with your regular doctor and with the gastroenterology office. Prescriptions: No Action fluoxetine 10 mg capsule 10 mg PO BEDTIME quetiapine 25 mg tablet 25 mg PO BEDTIME prazosin 5 mg capsule 5 mg PO BEDTIME naproxen 500 mg tablet 500 mg PO BID esomeprazole magnesium [Nexium] 40 mg capsule,delayed release(DR/EC) 40 mg PO DAILY Qty: 30 5RF ondansetron 4 mg tablet,disintegrating 4 mg PO Q8H PRN (Reason: nausea and vomiting) Qty: 20 0RF sennosides [Natural Senna Laxative] 8.6 mg tablet 17.2 mg PO BEDTIME Qty: 60 1RF famotidine 40 mg tablet 40 mg PO BEDTIME Qty: 30 3RF Referrals: Roma Bender, AGRICULTURAL ENGINEER [Primary Care Provider] - Kendra Fine, RED HAT LINUX ENGINEER-BC [Nurse Practitioner] - Interventions: ED Discharge Assessment Last Done: 04/12/23 17:51 Discharge Date/Time: 04/12/23 17:52
--- NOTE | 2023-04-12 15:06 | PC.NURSE ---
patient a&ox3, c/o nausea/vomiting and 01/12 rt abd pain, iv inserted/labs drawn, ivf hung per order, pt medicated per order, warm blankets given, will continue to monitor.
[2023-04-12 15:07] LABS: MANUAL DIFF FLAG NO
[2023-04-12 15:16] LABS: Basophils Percent Auto 0.3 % (0-2); Eosinophils Percent Auto 0.4 % (0-4); Hematocrit 38.1 % (42.0-52.0); Hemoglobin 12.5 g/dl (14.0-18.0); Imm Gran Abs Auto 0.08 X10*3/uL (0.00-0.03); Imm Gran Pct Auto 0.8 % (0.0-0.4); Lymphocytes Percent Auto 10.1 % (20-40); Mean Corpuscular HGB Conc 32.8 g/dl (31.0-36.0); Mean Corpuscular Hemoglobin 26.4 pg (27.0-33.0); Mean Corpuscular Volume 80.5 fL (80.0-98.0); Mean Platelet Volume 9.1 fL (9.4-12.4); Monocytes Absolute Auto 0.6 X10*3/uL (0.1-1.2); Monocytes Percent Auto 5.9 % (2-11); Neutrophils Absolute Auto 8.4 x10*3/uL (2.0-8.3); Neutrophils Percent Auto 82.5 % (45-73); Platelet Count 248 X10*3/uL (160-400); Red Blood Count 4.73 X10*6/uL (4.60-5.80); Red Cell Distribution Width 14.7 % (11.0-16.0); White Blood Count 10.2 X10*3/uL (4.8-10.8)
[2023-04-12 15:28] LABS: Alanine Aminotransferase 14 U/L (0-40); Alkaline Phosphatase 82 U/L (39-117); Anion Gap 13 (12-20); Aspartate Amino Transferase 18 U/L (5-37); Bilirubin Direct 0.2 mg/dL (0.0-0.5); Bilirubin Total 0.6 mg/dL (0.0-1.0); Blood Urea Nitrogen 11 mg/dL (9-16); C Reactive Protein 1.37 mg/dL (< or = 0.50); Calcium 9.3 mg/dL (8.4-10.2); Carbon Dioxide 24 mmol/L (22-29); Chloride 101 mmol/L (96-108); Creatinine Clr Calc Pharmacy 131.1; Estimated Glomerular Filt Rate > 60; Glucose Random 113 mg/dL (60-115); Lipase 13 U/L (8-78); Magnesium 1.7 mg/dL (1.6-2.6); Potassium 3.2 mmol/L (3.3-5.1); Sodium 135 mmol/L (135-145); Total Protein 7.4 g/dL (6.5-8.0)
[2023-04-12 15:31] LABS: Ethanol < 10 mg/dL
[2023-04-12 16:05] VITALS: BP 119/73; PULSE 60; RESP 18; TEMP 36.6; O2SAT 95
[2023-04-12] MEDS: 0.9 % Sodium Chloride 1,000 ML 999 ML IV (17:08)
== END 2023-04-12 17:52 | disposition home or self-care (01) ==
PROVIDERS: Emergency Provider Emergency Medicine; PCP Nurse Practitioner Family
DX: R11.2 Nausea with vomiting, unspecified (principal); F12.90 Cannabis use, unspecified, uncomplicated; Z79.899 Other long term (current) drug therapy
CPT/HCPCS: 36415; 80048; 80076; 80307; 83690; 83735; 85025; 86140; 96374; 96375; 99212; 99284; 99285; J1790

== ENCOUNTER 2023-06-08 08:08 | Outpatient (REF) | payer MEDICAID, SELFPAY ==
[2023-06-08 11:42] LABS: Hematocrit 40.1 % (42.0-52.0); Hemoglobin 12.7 g/dl (14.0-18.0); Mean Corpuscular HGB Conc 31.7 g/dl (31.0-36.0); Mean Corpuscular Volume 85.3 fL (80.0-98.0); Mean Platelet Volume 9.4 fL (9.4-12.4); Platelet Count 251 X10*3/uL (160-400); Red Cell Distribution Width 14.7 % (11.0-16.0); White Blood Count 8.1 X10*3/uL (4.8-10.8)
[2023-06-08 12:02] LABS: Estimated Average Glucose 97 mg/dL
[2023-06-08 12:43] LABS: HBS Num1 > 1000.00 mIU/mL (0-7.99); HBsAGNum1 0.32 S/CO (0.00-0.99); Hepatitis B Surface Antigen Negative (Negative); ~Hepatitis B Surface Antibody REACTIVE (Nonreactive)
[2023-06-08 13:46] LABS: Alanine Aminotransferase 18 U/L (0-40); Alkaline Phosphatase 87 U/L (39-117); Anion Gap 11 (12-20); Aspartate Amino Transferase 19 U/L (5-37); Bilirubin Total 0.4 mg/dL (0.0-1.0); Blood Urea Nitrogen 12 mg/dL (9-16); Calcium 9.2 mg/dL (8.4-10.2); Carbon Dioxide 30 mmol/L (22-29); Chloride 102 mmol/L (96-108); Cholesterol 137 mg/dL (<200); Estimated Glomerular Filt Rate > 60; Glucose Random 82 mg/dL (60-115); HDL Cholesterol 33 mg/dL (>40); Iron 79 mcg/dL (45-160); LDL Cholesterol Calculated 57 mg/dL (<100); Magnesium 1.9 mg/dL (1.6-2.6); Percent Iron Saturation 25 % (15-50); Potassium 4.1 mmol/L (3.3-5.1); Sodium 139 mmol/L (135-145); Total Iron Binding Capacity 318 mcg/dL (228-428); Total Protein 7.5 g/dL (6.5-8.0); Triglycerides 236 mg/dL (<150); Unsaturated Iron Binding 239 ug/dL
[2023-06-08 14:01] LABS: Ferritin 36 ng/mL (20-250); TSH reflex Free T4 1.04 uIU/mL (0.32-4.0)
[2023-06-09 14:58] LABS: Folate 7.1 ng/mL (> or = 4.0); Vitamin B12 587 pg/mL (200-900)
== END 2023-06-08 08:09 | disposition home or self-care (01) ==
LOC: HO.HHCL 08:08
PROVIDERS: Visit Provider Student in an Organized Health Care Education/Training Program
DX: Z00.00 Encounter for general adult medical examination without abnormal findings (principal); E66.01 Morbid (severe) obesity due to excess calories
CPT/HCPCS: 36415; 80053; 80061; 82607; 82728; 82746; 83036; 83540; 83735; 84443; 85027; 86706; 87340

== ENCOUNTER 2023-06-11 08:21 | Outpatient (REF) | payer MEDICAID, SELFPAY ==
--- NOTE | ~2023-06-11 | FL_ITS ---
EXAMINATION: XR FLUOROSCOPY UPPER GI WITH AIR CLINICAL INFORMATION: Reflux. GERD. Right abdominal pain. COMPARISON: None TECHNIQUE: Fluoroscopic air contrast upper GI examination was performed utilizing standard techniques with thin and thick barium and effervescent granules. Numerous spot images were obtained. FINDINGS: Dual and single contrast images of the esophagus demonstrate normal caliber, contour, and mucosal pattern. No evidence of stricture, mass, or ulcerations identified. Esophageal peristalsis was mildly disordered after the primary wave. A moderate size hiatal hernia is present. Gastroesophageal reflux is seen up to midesophagus. Dual contrast and single contrast images of the stomach demonstrated a normal contour. Evaluation of the gastric mucosa and rugal folds is limited due to underdistention of the stomach due to poor tolerance by the patient of retaining the effervescent granules. There are multiple tiny areas of contrast pooling in the body the stomach and antrum of the stomach that could represents tiny superficial apthous ulcers. No masses are seen. Contrast freely passed into the gastric antrum and duodenal bulb without delay. Single and air-contrast images of the duodenal bulb demonstrate no abnormality. The duodenal sweep has a normal appearance, course, and mucosal fold appearance. The imaged proximal jejunum has a normal fold pattern and caliber. FLUOROSCOPY TIME: 4 minutes 9 seconds Number of Spot Images: 14 Number of Cine: 7 DOSE AREA PRODUCT: 3211 uGy-m2 (microgray-meter squared) FL/FL upper GI series IMPRESSION: 1. Moderate-sized type I hiatal hernia. 2. Moderate gastroesophageal reflux. 3. Mildly disordered esophageal peristalsis. 4. Limited evaluation of the stomach due to underdistention from the patient inability to retain the effervescent granule gas. A few tiny areas of contrast pooling are seen in the body and antrum of the stomach that could represent tiny superficial apthous ulcers. Cannot well evaluate the mucosal appearance or rugal folds. Recommend correlation with EGD given these findings and the patient's symptoms. This procedure was performed by Lazarus Petty PA-C, and supervised by Dr. Wilder
== END 2023-06-11 08:22 | disposition home or self-care (01) ==
LOC: HO.XRAY 08:21
PROVIDERS: PCP Nurse Practitioner Family; Visit Provider Nurse Practitioner Family
DX: R13.10 Dysphagia, unspecified (principal); K21.9 Gastro-esophageal reflux disease without esophagitis
CPT/HCPCS: 74240

== ENCOUNTER → 2023-06-11 08:25 | Outpatient (BNV) | payer MEDICAID, SELFPAY | PROVIDERS: PCP Nurse Practitioner Family; Visit Provider Physician Assistant Surgical | DX: K21.9 Gastro-esophageal reflux disease without esophagitis (principal) | CPT/HCPCS: 74246 ==

== ENCOUNTER 2023-07-23 11:55 | Outpatient (AMB) | payer MEDICAID, SELFPAY ==
--- NOTE | 2023-07-23 11:59 | MHC.OFFVIS ---
Vital Signs 07/23/23 12:03 Height 5 ft 6 in Weight 286 lb BMI 46.2 BP 123/70 Blood Pressure Location Lt brachial Position Sitting Pulse 88 Intake Visit Reasons: G.I series follow up Intake Note: Patient is seen in office for follow up visit, following F.I series. Pt c/o: medicine prescribe was working at first had a good bowel movements, however was no longer able to get a refill and is having constipation and abdominal, bm every other day. Medicine for throat is working also here for results on GI series. 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 DD include incarcerated hiatal hernia, gastritis, pancreatitis. Patient will call the office to schedule appointment. Will work on moving his upper GI series sooner. Patient will need to be also scheduled for upper endoscopy. TODAY'S VISIT Patient is here today for follow-up and to discuss upper GI series. Patient has severe acid reflux with possible erosive gastritis and will need to go for upper endoscopy. However patient is seen pre k special education teacher for shortness of breath and chest pain symptoms. He is due to go for dental surgery and needs to be cleared before going under sedation. Patient is taking famotidine at bedtime, however he stopped taking Nexium in the morning. His symptoms of acid reflux have improved, however he ran out of Senokot and is having constipation. Patient reports frequent shortness of breath. Denies using any drugs except for smoking marijuana. Patient never seen deoiling machine operator in the past. [facility] Medical History Polysubstance abuse No known health problems Social History Alcohol intake: former Patient Tobacco Use Status: Never used Tobacco Substance Use Type: Marijuana Physical Exam Vital Signs: Last Vital Signs Pulse 88 07/23/23 12:03 BP 123/70 07/23/23 12:03 BMI result Body Mass Index 46.2 Results Reviewed Results Reviewed: UPPER GI SERIES IMPRESSION: 1. Moderate-sized type I hiatal hernia. 2. Moderate gastroesophageal reflux. 3. Mildly disordered esophageal peristalsis. 4. Limited evaluation of the stomach due to underdistention from the patient inability to retain the effervescent granule gas. A few tiny areas of contrast pooling are seen in the body and antrum of the stomach that could represent tiny superficial apthous ulcers. Cannot well evaluate the mucosal appearance or rugal folds. Recommend correlation with EGD given these findings and the patient's symptoms. Assessment & Plan Assessment & Plan (1) GERD (gastroesophageal reflux disease): Code(s): K21.9 - Gastro-esophageal reflux disease without esophagitis Qualifiers: Esophagitis presence: esophagitis presence not specified Qualified Code(s): K21.9 - Gastro-esophageal reflux disease without esophagitis (2) Epigastric abdominal pain: Code(s): R10.13 - Epigastric pain (3) Constipation: Code(s): K59.00 - Constipation, unspecified Qualifiers: Constipation type: slow transit constipation Qualified Code(s): K59.01 - Slow transit constipation (4) Hiatal hernia: Code(s): K44.9 - Diaphragmatic hernia without obstruction or gangrene Plan Referral to pulmonology for shortness of breath with and without exertion. Frequent feeling of tired. Patient will continue taking Nexium in the morning. Patient will eat smaller meals and more often. Patient was encouraged to lose weight. Avoid dietary triggers in late night snacking. Staying upright for minimum 3 hours after meals discussed with patient. Patient will continue famotidine on as needed basis at bedtime. Patient will continue taking Senokot daily. Increase fluid intake and activity to promote better bowel motility. Patient was encouraged to avoid smoking marijuana. Patient will need to be cleared before going for upper endoscopy. I will see patient in 6 weeks, sooner on as needed basis. He is agreeable to this plan and verbalizes understanding of instructions. He was given the opportunity to ask questions and all questions answered. Thank you for allowing me to participate in his care Orders: Referrals Pulmonary Medicine Referral R06.00 - Dyspnea, unspecified Medications: Refilled esomeprazole magnesium (Nexium) 40 mg PO DAILY 30 caps 5RF K21.9 - Gastro-esophageal reflux disease without esophagitis sennosides (Natural Senna Laxative) 17.2 mg (2 x 8.6 mg) PO BEDTIME 180 tabs 1RF constipation K59.00 - Constipation, unspecified
[2023-07-23 12:03] VITALS: BP 123/70; PULSE 88; BMI 46.2
== END 2023-07-23 12:26 | disposition home or self-care (01) ==
PROVIDERS: PCP Nurse Practitioner Family; Visit Provider Nurse Practitioner Family
DX: K21.9 Gastro-esophageal reflux disease without esophagitis (principal); R10.13 Epigastric pain; K59.01 Slow transit constipation; K44.9 Diaphragmatic hernia without obstruction or gangrene
CPT/HCPCS: 99214

== ENCOUNTER → 2023-07-23 11:55 | Outpatient (BNVA) | payer MEDICAID, SELFPAY | PROVIDERS: PCP Nurse Practitioner Family; Visit Provider Nurse Practitioner Family | DX: K21.9 Gastro-esophageal reflux disease without esophagitis (principal); K59.00 Constipation, unspecified; K44.9 Diaphragmatic hernia without obstruction or gangrene; R10.13 Epigastric pain | CPT/HCPCS: 99212 ==

== ENCOUNTER 2023-08-09 09:55 | Outpatient (REF) | payer MEDICAID, SELFPAY ==
--- NOTE | ~2023-08-09 | XR_ITS ---
EXAMINATION: XR CHEST CLINICAL INFORMATION: Cough unspecified, cough for one year, worse in the past few weeks. COMPARISON: Chest 02/06/2022, 02/07/2020 and 12/15/2015. TECHNIQUE: 2 views of the chest were obtained. FINDINGS: There is no gross pneumothorax. Lung volumes are low. Heart size is normal. There are mildly increased retrocardiac opacities when compared with most recent available lateral view of 12/15/2015, although evaluation is somewhat limited due to lower lung volumes on the current exam. Differential considerations include atelectasis, although an infectious/inflammatory process should also be considered in the appropriate clinical setting. No gross pleural effusion. Low lung volumes and asymmetric elevation of the left lung base were also present on frontal exam of 02/06/2022. XR/XR chest 2V IMPRESSION: There are mildly increased retrocardiac opacities when compared with most recent available lateral view of 12/15/2015, although evaluation is somewhat limited due to lower lung volumes on the current exam. Differential considerations include atelectasis, although an infectious/inflammatory process should also be considered in the appropriate clinical setting. CT scan of the chest could be considered in the appropriate clinical setting.
== END 2023-08-09 09:56 | disposition home or self-care (01) ==
LOC: HO.XRAY 09:55
PROVIDERS: PCP Nurse Practitioner Family; Visit Provider Nurse Practitioner Family
DX: R05.9 Cough, unspecified (principal); R06.09 Other forms of dyspnea; J45.909 Unspecified asthma, uncomplicated
CPT/HCPCS: 71046; 99212

== ENCOUNTER 2023-08-09 09:55 | Outpatient (AMB) | payer MEDICAID, SELFPAY ==
[2023-08-09 09:57] VITALS: BP 126/78; PULSE 95; O2SAT 91; BMI 45.4
--- NOTE | 2023-08-09 09:57 | MHC.OFFVIS ---
Vital Signs 08/09/23 09:57 Height 5 ft 6 in Weight 281 lb 1.43 oz BMI 45.4 BP 126/78 Blood Pressure Location Rt brachial Position Sitting Pulse 95 Pulse Source Pulse Oximeter Pulse Oximetry (%) 91 L Oxygen Delivery Method Room Air Intake Visit Reasons: Dyspnea Allergies penicillin V Allergy (Unknown, Verified 08/09/23 10:02) Unknown Penicillins [PENICILLINS] Allergy (Unknown, Verified 08/09/23 10:02) RASH penicillin Allergy (Unknown, Uncoded 08/09/23 10:02) Unknown HPI HPI Dyspnea: Details: Yaniv is a pleasant 38 year old male, former smoker with 20 pack year history, quit 2 years ago with underlying h/o substance abuse maintained on methadone and GERD. He continues to report worsening dyspnea on minimal exertion, dry cough, wheezing and chest tightness. He has been using ventolin with good effect and has been started on an inhaler from recent [facility] pulmonary consultation. He reports recent evaluation with Dr. Erazo, draw off worker at [facility], undergoing a PFT, EKG, and sleep study. He also believes he underwent cardiology evaluation and has an upcoming stress test. He does report significant recent weight gain of approximately 100 lbs over the last year. He reports multiple first degree members with respiratory and cardiac conditions. He denies any recent hospitalizations related to respiratory distress.He denies any occupational exposures. He denies any seasonal allergies. [facility] Medical History Polysubstance abuse No known health problems Social History (Reviewed 08/09/23 @ 10:01 by Radha Reinoso [facility]) Alcohol intake: former Patient Tobacco Use Status: Never used Tobacco Substance Use Type: Marijuana Review of Systems Const Denies chills, Denies excessive sweating, Denies fever(s), Denies headache(s) and Denies night sweats Eyes Denies dry eyes, Denies irritation and Denies itchy eyes ENT Reports Normal hearing present, Denies headache(s), Denies nasal congestion, Denies nasal discharge, Denies post nasal drip and Denies sore throat Card Denies chest pain, Denies chest pain at rest, Denies chest pain with activity, Denies claudication, Denies leg edema, Denies orthopnea and Denies paroxysmal nocturnal dyspnea Resp Denies chest congestion, Denies excessive phlegm production, Denies pain on inspiration, Denies pain with cough and Denies stridor Musc Denies myalgias Neuro Reports Normal hearing present and Denies headache(s) Endo Denies excessive sweating Nnamdi/Lymph Denies lymphadenopathy Aller/Immun Denies itchy eyes and Denies seasonal rhinorrhea Physical Exam Vital Signs: Last Vital Signs Pulse 95 08/09/23 09:57 BP 126/78 08/09/23 09:57 Pulse Ox 91 L 08/09/23 09:57 Oxygen Delivery Method Room Air 08/09/23 09:57 BMI result Body Mass Index 45.4 Const General: cooperative, healthy appearing, comfortable, no acute distress, well developed and alert Nutritional Appearance: obese Orientation/consciousness: patient oriented x3 Limitations: no limitations HEENT Head: Yes normal to inspection, Yes normocephalic and Yes atraumatic Ears: hearing grossly normal bilaterally and external ears normal Eyes General: appearance normal, both eyes and all related structures Eyelids: Yes eyelids normal Sclerae: sclerae normal EOM: EOMs intact bilaterally Neck Neck: Yes normal visual inspection and Yes no lymphadenopathy Lymphatic: no lymphadenopathy noted Chest Chest palpation & inspection: normal inspection of the chest Resp Effort & Inspection: normal respiratory effort, able to speak in complete sentences, no audible wheezes, Actively coughing, no stridor, not tachypneic, no tripod positioning and no use of accessory muscles Auscultation: diminished lung sounds Cardio Jugular venous distension: no JVD Rate: regular rate Rhythm: regular rhythm Skin Other: warm, dry General skin exam: no rashes or lesions noted Neuro General: patient oriented x3 Cranial nerves: Yes Normal hearing present Cognition (Neuro): normal cognition Gait exam (Neuro): Normal gait present Extrem General: Yes normal to inspection, Yes capillary refill normal, Yes no clubbing, cyanosis or edema and Yes no pedal edema Psych Appearance: grossly normal and well kempt Speech and movement: Normal speech and movement present and Clear speech present Affect: normal affect Attitude: cooperative Thought process: Normal thought process present Thought content: Normal thought content present Insight: Good insight present (Psych) Judgement: Good judgement present (Psych) Assessment & Plan Assessment & Plan (1) Asthma: Code(s): J45.909 - Unspecified asthma, uncomplicated Category: Medical (2) Dyspnea on exertion: Code(s): R06.09 - Other forms of dyspnea Category: Medical (3) Cough: Code(s): R05.9 - Cough, unspecified Category: Medical Plan Yaniv's symptoms are likely related to underlying asthma, obesity/deconditioning and possible cardiac etiologies. Patient has recently undergone work up through [facility] pulmonary and has an upcoming sleep study. He denies any recent imaging. Will send for CXR today. Will also have patient sign a release for [facility] pulmonary records to review and see what inhaler he was recently placed on. Will follow up in 4 weeks to review records or sooner if needed. Orders: Orders XR chest 2V 08/09/23 R05.9 - Cough, unspecified Coding Level of Care Code New Pt Level 4 (25739) Diagnoses Asthma J45.909 Dyspnea on exertion R06.09 Cough R05.9
== END 2023-08-09 10:42 | disposition home or self-care (01) ==
PROVIDERS: PCP Nurse Practitioner Family; Visit Provider Nurse Practitioner Family
DX: J45.909 Unspecified asthma, uncomplicated (principal); R06.09 Other forms of dyspnea; R05.9 Cough, unspecified
CPT/HCPCS: 99204

== ENCOUNTER 2023-08-27 09:51 | Outpatient (REF) | payer MEDICAID, SELFPAY ==
[2023-08-27 10:11] LABS: MANUAL DIFF FLAG NO
[2023-08-27 10:34] LABS: Basophils Absolute Auto 0.1 X10*3/uL (0.0-0.2); Basophils Percent Auto 0.6 % (0-2); Eosinophils Absolute Auto 0.4 X10*3/uL (0.0-0.4); Eosinophils Percent Auto 5.1 % (0-4); Hemoglobin 11.7 g/dl (14.0-18.0); Imm Gran Abs Auto 0.07 X10*3/uL (0.00-0.03); Imm Gran Pct Auto 0.8 % (0.0-0.4); Lymphocytes Absolute Auto 1.7 X10*3/uL (1.2-4.9); Mean Corpuscular HGB Conc 31.6 g/dl (31.0-36.0); Mean Corpuscular Hemoglobin 26.8 pg (27.0-33.0); Mean Corpuscular Volume 84.9 fL (80.0-98.0); Mean Platelet Volume 9.2 fL (9.4-12.4); Monocytes Absolute Auto 0.6 X10*3/uL (0.1-1.2); Monocytes Percent Auto 7.4 % (2-11); Neutrophils Absolute Auto 5.7 x10*3/uL (2.0-8.3); Neutrophils Percent Auto 66.1 % (45-73); Platelet Count 236 X10*3/uL (160-400); Red Blood Count 4.36 X10*6/uL (4.60-5.80); Red Cell Distribution Width 13.9 % (11.0-16.0); White Blood Count 8.7 X10*3/uL (4.8-10.8)
[2023-08-27 11:00] LABS: Anion Gap 9 (12-20); Blood Urea Nitrogen 12 mg/dL (9-16); Calcium 9.2 mg/dL (8.4-10.2); Carbon Dioxide 32 mmol/L (22-29); Chloride 101 mmol/L (96-108); Estimated Glomerular Filt Rate > 60; Glucose Random 108 mg/dL (60-115); Potassium 3.9 mmol/L (3.3-5.1); Sodium 138 mmol/L (135-145)
[2023-08-27 11:03] LABS: B Type Natriuretic Peptide < 10 pg/mL (<100)
== END 2023-08-27 09:52 | disposition home or self-care (01) ==
LOC: HO.LAB 09:51
PROVIDERS: Visit Provider Internal Medicine Cardiovascular Disease
DX: R06.09 Other forms of dyspnea (principal)
CPT/HCPCS: 36415; 80048; 83880; 85025

== ENCOUNTER 2023-09-02 11:04 | Outpatient (AMB) | payer MEDICAID, SELFPAY ==
--- NOTE | 2023-09-02 11:06 | A.OFFVIS_ITS ---
Vital Signs 09/02/23 11:07 Height 5 ft 6 in Weight 277 lb 1.937 oz BMI 44.7 BP 125/77 Blood Pressure Location Lt brachial Position Sitting Pulse 82 Pulse Oximetry (%) 96 Intake Visit Reasons: 6 week follow up Intake Note: Yaniv presents in the office as a 6 week follow up. CC: States he is cramping in the chest and lower right quadrant. Chest cramping is a new symptom - he has had pains in the chest but never cramping - started recently - pains in the chest for a year. Print Designer Required: No Allergies penicillin V Allergy (Unknown, Verified 09/02/23 11:09) Unknown Penicillins [PENICILLINS] Allergy (Unknown, Verified 09/02/23 11:09) RASH penicillin Allergy (Unknown, Uncoded 09/02/23 11:09) Unknown HPI HPI 6 week follow up: Details: LAST VISIT GERD (gastroesophageal reflux disease) Epigastric abdominal pain Constipation Hiatal hernia Plan Referral to pulmonology for shortness of breath with and without exertion. Frequent feeling of tired. Patient will continue taking Nexium in the morning. Patient will eat smaller meals and more often. Patient was encouraged to lose weight. Avoid dietary triggers in late night snacking. Staying upright for minimum 3 hours after meals discussed with patient. Patient will continue famotidine on as needed basis at bedtime. Patient will continue taking Senokot daily. Increase fluid intake and activity to promote better bowel motility. Patient was encouraged to avoid smoking marijuana. Patient will need to be cleared before going for upper endoscopy. I will see patient in 6 weeks, sooner on as needed basis. He is agreeable to this plan and verbalizes understanding of instructions. He was given the opportunity to ask questions and all questions answered. ? Thank you for allowing me to participate in his care Orders Referrals Pulmonary Medicine Referral R06.00 Medications Refilled esomeprazole magnesium (Nexium) 40 mg PO DAILY 30 caps 5RF K21.9 sennosides (Natural Senna Laxative) 17.2 mg (2 x 8.6 mg) PO BEDTIME 180 tabs 1RF constipation K59.00 TODAY'S VISIT Patient is here today for follow-up. Patient states that he is taking Nexium in the morning and famotidine at bedtime. He is eating smaller meals and more often. Patient started eating breakfast in the morning. Patient does not eat late at night anymore. Patient had a appointment with nursery laborer and his supervisory historian. Patient has cardiac catheterization scheduled for September 16. Patient reports that he is feeling much better. Denies any nausea or vomiting. Patient denies dyspepsia, dysphagia or odynophagia occasional left-sided upper abdomen/chest area pain with movement. Denies any shortness of breath or chest pressure. Patient is taking Senokot every day and moves his bowels. [facility] Medical History Polysubstance abuse No known health problems Social History Alcohol intake: former Patient Tobacco Use Status: Never used Tobacco Substance Use Type: Marijuana Review of Systems Const Denies weight gain and Denies weight loss ENT Reports no additional complaints, Denies dysphagia and Denies odynophagia Card Reports no additional complaints Resp Reports no additional complaints GI Reports abdominal pain (Epigastric pain), Denies belching, Denies melena, Reports bloating, Denies change in bowel habits, Denies dysphagia, Denies excessive flatus, Reports dyspepsia, Reports heartburn, Denies diarrhea, Denies loose stools, Reports nausea, Denies odynophagia and Reports vomiting Reports no additional complaints Musc Reports no additional complaints Neuro Reports no additional complaints Psych Reports no additional complaints Endo Reports no additional complaints Physical Exam Vital Signs: Last Vital Signs Pulse 82 09/02/23 11:07 BP 125/77 09/02/23 11:07 BMI result Body Mass Index 44.7 Const General: in distress and ill appearing Nutritional Appearance: obese Orientation/consciousness: patient oriented x3 Neck Neck: Yes normal visual inspection, Yes full ROM and Yes trachea midline Resp Effort & Inspection: normal respiratory effort, able to speak in complete sentences, no tracheal deviation and symmetric chest movement Auscultation: clear to auscultation bilaterally Cardio Rate: regular rate GI Inspection: Yes normal to inspection and No distended Palpation (GI): Soft to palpation, not firm, nontender and No hepatosplenomegaly present Auscultation: normal bowel sounds General: Yes no CVA tenderness Back/Spine/Pelvis Back: no CVA tenderness Skin General skin exam: elasticity normal, turgor normal and dry skin Neuro General: patient oriented x3 Psych Appearance: grossly normal Mental Status: mental status grossly normal Assessment & Plan Assessment & Plan (1) GERD (gastroesophageal reflux disease): Code(s): K21.9 - Gastro-esophageal reflux disease without esophagitis Qualifiers: Esophagitis presence: esophagitis presence not specified Qualified Code(s): K21.9 - Gastro-esophageal reflux disease without esophagitis (2) Epigastric abdominal pain: Code(s): R10.13 - Epigastric pain (3) Constipation: Code(s): K59.00 - Constipation, unspecified Qualifiers: Constipation type: slow transit constipation Qualified Code(s): K59.01 - Slow transit constipation (4) Hiatal hernia: Code(s): K44.9 - Diaphragmatic hernia without obstruction or gangrene Plan Continue Nexium and famotidine. Continue avoiding dietary triggers and late night snacking. Staying upright for minimum 3 hours after meals discussed with patient. Continue senna. Will request a clearance from supervisory historian after his cardiac catheterization that is scheduled for September 16. I will see him in 6 weeks, sooner on as needed basis. He is agreeable to this plan and verbalizes understanding of instructions. He was given the opportunity to ask questions and all questions answered. Thank you for allowing me to participate in his care Medications: Refilled esomeprazole magnesium (Nexium) 40 mg PO DAILY 30 caps 5RF K21.9 - Gastro- esophageal reflux disease without esophagitis Coding Level of Care Code Est Pt Level 3 (39345) Diagnoses Gastroesophageal reflux disease, unspecified whether esophagitis present K21.9 Esophagitis presence: esophagitis presence not specified Epigastric abdominal pain R10.13 Slow transit constipation K59.01 Constipation type: slow transit constipation Hiatal hernia K44.9 Time Spent (min) 30 Comment 20 minutes spent with patient and additional 10 minutes spent reviewing his records
[2023-09-02 11:07] VITALS: BP 125/77; PULSE 82; O2SAT 96; BMI 44.7
== END 2023-09-02 11:32 | disposition home or self-care (01) ==
PROVIDERS: PCP Nurse Practitioner Family; Visit Provider Nurse Practitioner Family
DX: K21.9 Gastro-esophageal reflux disease without esophagitis (principal); R10.13 Epigastric pain; K59.01 Slow transit constipation; K44.9 Diaphragmatic hernia without obstruction or gangrene
CPT/HCPCS: 99213

== ENCOUNTER → 2023-09-02 11:04 | Outpatient (BNVA) | payer MEDICAID, SELFPAY | PROVIDERS: PCP Nurse Practitioner Family; Visit Provider Nurse Practitioner Family | DX: K21.9 Gastro-esophageal reflux disease without esophagitis (principal); R10.13 Epigastric pain; K59.01 Slow transit constipation; K44.9 Diaphragmatic hernia without obstruction or gangrene | CPT/HCPCS: 99212 ==

== ENCOUNTER 2023-09-20 10:00 | Outpatient (AMB) | payer MEDICAID, SELFPAY ==
[2023-09-20 10:13] VITALS: BP 134/72; PULSE 80; O2SAT 93; BMI 45.7
--- NOTE | 2023-09-20 10:13 | MHC.OFFVIS ---
Vital Signs 09/20/23 10:13 Height 5 ft 6 in Weight 283 lb 4.704 oz BMI 45.7 BP 134/72 Blood Pressure Location Rt brachial Position Sitting Pulse 80 Pulse Source Pulse Oximeter Pulse Oximetry (%) 93 Oxygen Delivery Method Room Air Intake Visit Reasons: Dyspnea Allergies penicillin V Allergy (Unknown, Verified 09/20/23 10:16) Unknown Penicillins [PENICILLINS] Allergy (Unknown, Verified 09/20/23 10:16) RASH penicillin Allergy (Unknown, Uncoded 09/20/23 10:16) Unknown HPI HPI Dyspnea: Details: Yaniv is a pleasant 38 year old male, former smoker with 20 pack year history, quit 2 years ago with underlying h/o substance abuse maintained on methadone and GERD. He continues to report worsening dyspnea on minimal exertion, dry cough, wheezing and chest tightness. At the last visit he was started on Breo 100 mcg with suboptimal effect. He reports recent evaluation with Dr. Erazo, mold carrier at [facility], undergoing a PFT, EKG, and sleep study. Since last visit he also underwent a stress test as well as right heart catheterization. He reports he was unable to complete the stress test due to significant fatigue, diaphoresis and dyspnea. He underwent right heart catheterization on 09/16 which was reportedly unremarkable. Cardiology reports unavailable today. PSG moderate TYSON with nocturnal hypoxemia, <88% 24.1 minutes, lowest 77%. Will be going to [facility] to review results. Discussed likely need for in lab titration study given both obstructive and central apneas. PFT revealed mild obstruction FEV1/FVC 69% FEV1 99%, TLC 111%, RV 133% and DLCO 85%. [facility] Medical History (Updated 09/20/23 @ 11:23 by Samantha Davis NP) Polysubstance abuse No known health problems Social History (Updated 09/20/23 @ 10:16 by Radha Reinoso CMA) Alcohol intake: former Patient Tobacco Use Status: Former Tobacco user Substance Use Type: Marijuana Review of Systems Const Denies chills, Denies excessive sweating, Denies fever(s), Denies headache(s) and Denies night sweats Eyes Denies dry eyes, Denies irritation and Denies itchy eyes ENT Reports Normal hearing present, Denies headache(s), Denies nasal congestion, Denies nasal discharge, Denies post nasal drip and Denies sore throat Card Denies chest pain, Denies chest pain at rest, Denies chest pain with activity, Denies claudication, Denies leg edema, Denies orthopnea and Denies paroxysmal nocturnal dyspnea Resp Denies chest congestion, Denies excessive phlegm production, Denies pain on inspiration, Denies pain with cough and Denies stridor Musc Denies myalgias Neuro Reports Normal hearing present and Denies headache(s) Endo Denies excessive sweating Nnamdi/Lymph Denies lymphadenopathy Aller/Immun Denies itchy eyes and Denies seasonal rhinorrhea Physical Exam Vital Signs: Last Vital Signs Pulse 80 09/20/23 10:13 BP 134/72 09/20/23 10:13 Pulse Ox 93 09/20/23 10:13 Oxygen Delivery Method Room Air 09/20/23 10:13 BMI result Body Mass Index 45.7 Const General: cooperative, no acute distress, well developed and alert Nutritional Appearance: obese Orientation/consciousness: patient oriented x3 Limitations: no limitations HEENT Head: Yes normal to inspection, Yes normocephalic and Yes atraumatic Ears: hearing grossly normal bilaterally and external ears normal Eyes General: appearance normal, both eyes and all related structures Eyelids: Yes eyelids normal Sclerae: sclerae normal EOM: EOMs intact bilaterally Neck Neck: Yes normal visual inspection and Yes no lymphadenopathy Lymphatic: no lymphadenopathy noted Chest Chest palpation & inspection: normal inspection of the chest Resp Effort & Inspection: normal respiratory effort, able to speak in complete sentences, no audible wheezes, Actively coughing, no stridor, not tachypneic, no tripod positioning and no use of accessory muscles Auscultation: diminished lung sounds Cardio Jugular venous distension: no JVD Rate: regular rate Rhythm: regular rhythm GI Inspection: Yes normal to inspection and No distended Palpation (GI): Soft to palpation, not firm, nontender and No hepatosplenomegaly present Auscultation: normal bowel sounds General: Yes no CVA tenderness Back/Spine/Pelvis Back: no CVA tenderness Skin Other: warm, dry General skin exam: no rashes or lesions noted Neuro General: patient oriented x3 Cranial nerves: Yes Normal hearing present Cognition (Neuro): normal cognition Gait exam (Neuro): Normal gait present Extrem General: Yes normal to inspection, Yes capillary refill normal, Yes no clubbing, cyanosis or edema and Yes no pedal edema Psych Appearance: grossly normal and well kempt Mental Status: mental status grossly normal Speech and movement: Normal speech and movement present and Clear speech present Affect: Anxious affect present Attitude: cooperative Thought process: Normal thought process present Thought content: Normal thought content present Insight: Fair insight present (Psych) Judgement: Fair judgement present (Psych) Office Procedures 6 Minute Walk Time:: 11:05 SPO2 % at rest: 96 Pulse at rest: 84 SPO2 % during excercise: 91 Pulse during excercise: 92 SPO2 % after excercise: 95 Pulse after excercise: 88 Distance in yards walked: 750 João Score: 7 Performance Observations:: Patient walked unassisted on level ground at a moderate pace. Patient was able to maintain O2 saturation of 91% or greater with pulse rate of 92 or less for the entirety of the walk. Patient does report he tires easily especially when walking up the stairs or on an incline. He does sweat profusely with any activity. Patient did not require the use of supplemental O2 for this 6 minute walk. [address] - 6 Minute Walk Assessment & Plan Assessment & Plan (1) Asthma: Code(s): J45.909 - Unspecified asthma, uncomplicated Category: Medical (2) Dyspnea on exertion: Code(s): R06.09 - Other forms of dyspnea Category: Medical (3) Cough: Code(s): R05.9 - Cough, unspecified Category: Medical Plan One reports suboptimal control on Breo 100 mcg, will increase to Breo 200 mcg. He continues to report significant dyspnea on exertion, 6MWT performed and patient does not require supplemental oxygen at this time. Reviewed recent PFT which revealed mild obstruction and increase in total lung capacity as well as residual volume, suggestive of air trapping. DLCO within normal limits. Reviewed recent sleep study with patient which reveals moderate obstructive sleep apnea as well as central sleep apnea and nocturnal hypoxemia. This was ordered through a [facility] provider and patient will be following up to review results as well as next steps to address sleep apnea. Discussed likelihood of needing an in lab titration study to ensure resolution of apneic events and hypoxemia. He is also under the care of [facility] cardiology, will request stress test and right heart catheterization results. Patient has upcoming chest CT encouraged to keep this appointment. He notes significant issues due to deviated septum related to excessive cocaine abuse in the past. Will send to ENT for thorough evaluation. All questions were answered and patient is in agreement of plan. Will follow-up to review results and response to inhaler. Orders: Orders AMB 6 minute walk 09/20/23 J45.909 - Unspecified asthma, uncomplicated, R06.09 - Other forms of dyspnea Referrals Ear/Nose/Throat Referral F19.10 - Other psychoactive substance abuse, uncomplicated, J34.2 - Deviated nasal septum Medications: New fluticasone furoate-vilanterol 200-25 mcg/dose (Breo Ellipta) 1 inh inhalation DAILY 60 ea 3RF Coding Level of Care Code Est Pt Level 4 (53236) Diagnoses Asthma J45.909 Dyspnea on exertion R06.09 Cough R05.9 CPT Codes Coding ([id number])
[2023-09-20 11:38] VITALS: PULSE 84; O2SAT 96
== END 2023-09-20 11:28 | disposition home or self-care (01) ==
PROVIDERS: PCP Nurse Practitioner Family; Visit Provider Nurse Practitioner Family
DX: J45.909 Unspecified asthma, uncomplicated (principal); R06.09 Other forms of dyspnea; R05.9 Cough, unspecified
CPT/HCPCS: 94618; 99214

== ENCOUNTER → 2023-09-20 10:00 | Outpatient (BNVA) | payer MEDICAID, SELFPAY | PROVIDERS: PCP Nurse Practitioner Family; Visit Provider Nurse Practitioner Family | DX: J45.909 Unspecified asthma, uncomplicated (principal); R05.9 Cough, unspecified; R06.09 Other forms of dyspnea | CPT/HCPCS: 94618; 99212 ==

== ENCOUNTER 2023-10-12 07:11 | Outpatient (REF) | payer MEDICAID, SELFPAY ==
--- NOTE | ~2023-10-12 | CT_ITS ---
EXAMINATION: CT CHEST WITHOUT CONTRAST CLINICAL INFORMATION: Follow-up retrocardiac opacities. COMPARISON: Chest radiographs dated 08/09/2023. TECHNIQUE: Multidetector volumetric CT imaging of the chest was done. Axial MIP volume rendering provided. Sagittal and coronal reformatted images were obtained. This CT examination was performed using dose optimization techniques as appropriate, variously including the following: *Automated exposure control *Adjustment of mA and/or kV according to patient size (this includes techniques or standardized protocols for targeted exams where dose is matched to indication/reason for exam; i.e. extremities or head) *Use of iterative reconstruction technique DLP: 279 mGy-cm FINDINGS: COMPUTER TYPESETTER: The lungs are symmetrically well-expanded and grossly clear. LUNGS: Within the anterior segment of the right upper lobe (5:86), a 3 mm noncalcified nodule is seen. Within the left upper lobe laterally (5:210), a 2 mm noncalcified nodule is seen. Abutting the left major fissure (5:275), a 5 mm benign fissural lymph node is seen. Within the anteromedial basal segment of the left lower lobe (5:380), a 2 mm noncalcified nodule is seen. There are multiple further miliary nodules and peribronchial opacities seen within the bilateral lower lobes, left greater than right. There are scattered foci of linear scar/subsegmental atelectasis seen within the lungs, without associated focal airway obstruction. There is no generalized small airway thickening. The central airways appear patent. MEDIASTINUM: The mediastinum is normal. CORONARY ARTERY CALCIFICATION: None visualized on this study. PLEURA: There is no pleural effusion. No pleural mass or thickening. AXILLA: No lymphadenopathy. There is mild bilateral gynecomastia. UPPER ABDOMEN: There is a small hiatus hernia. There is mild hepatic steatosis. There is splenomegaly, with a longitudinal span in the transverse plane of 14.5 cm (3:54). OSSEOUS STRUCTURES: Unremarkable. CT/CT chest wo IV con IMPRESSION: 1. There are multiple bilateral pulmonary nodules, including numerous bilateral lower lobe faint miliary nodules and adjacent peribronchial groundglass opacities. These are likely infectious or inflammatory in etiology. Recommend clinical correlation and short-term follow-up CT imaging in 1-3 months to ensure clearance. 2. No gross infiltrate is seen. There is no mass lesion. 3. No thoracic lymphadenopathy or pleural effusion is seen. 4. Osseous structures are unremarkable. 5. There is a small hiatus hernia. 6. There is splenomegaly. 7. There is mild chronic gynecomastia. Fleischner guidelines were followed.
== END 2023-10-12 07:12 | disposition home or self-care (01) ==
LOC: HO.CT 07:11
PROVIDERS: PCP Nurse Practitioner Family; Visit Provider Nurse Practitioner Family
DX: R93.89 Abnormal findings on diagnostic imaging of other specified body structures (principal)
CPT/HCPCS: 71250

== ENCOUNTER 2023-10-15 09:57 | Outpatient (REF) | payer MEDICAID, SELFPAY ==
[2023-10-24 01:19] LABS: FIB-ALT 19 U/L (9-46); FIB-Alpha-2-Macroglobulin 107 mg/dL (106-279); FIB-Apolipoprotein A1 130 mg/dL (94-176); FIB-GGT 31 U/L (3-90); FIB-Haptoglobin 149 mg/dL (43-212); FIB-Total Bilirubin 0.3 mg/dL (0.2-1.2); Liver Fibrosis Score 0.04; Liver Fibrosis Stage F0; Nec Inflam Act Grade A0; Nec Inflam Act Score 0.05
== END 2023-10-15 09:58 | disposition home or self-care (01) ==
LOC: HO.LAB 09:57
PROVIDERS: PCP Nurse Practitioner Family; Visit Provider Nurse Practitioner Family
DX: K59.04 Chronic idiopathic constipation (principal); K21.9 Gastro-esophageal reflux disease without esophagitis; K44.9 Diaphragmatic hernia without obstruction or gangrene; R74.8 Abnormal levels of other serum enzymes; R10.13 Epigastric pain; R74.01 Elevation of levels of liver transaminase levels; Z79.899 Other long term (current) drug therapy
CPT/HCPCS: 36415; 81596; 99212

== ENCOUNTER 2023-10-15 09:57 | Outpatient (AMB) | payer MEDICAID, SELFPAY ==
--- NOTE | 2023-10-15 10:01 | MHC.OFFVIS ---
Vital Signs 10/15/23 10:02 Height 5 ft 6 in Weight 283 lb 15.286 oz BMI 45.8 BP 119/58 L Blood Pressure Location Lt brachial Position Sitting Pulse 91 Intake Visit Reasons: 6 weeks CIC, Gerd Intake Note: Patient follow up for constipation. Patient cc: constipation on and off. Denies any other GI issues. Dean Of Education Required: No Accompanied by: Family/Other Allergies penicillin V Allergy (Unknown, Verified 10/15/23 10:00) Unknown Penicillins [PENICILLINS] Allergy (Unknown, Verified 10/15/23 10:00) RASH penicillin Allergy (Unknown, Uncoded 09/20/23 10:16) Unknown HPI HPI 6 weeks CIC, Gerd: Details: LAST VISIT GERD (gastroesophageal reflux disease) Epigastric abdominal pain Constipation Hiatal hernia Plan Continue Nexium and famotidine. Continue avoiding dietary triggers and late night snacking. Staying upright for minimum 3 hours after meals discussed with patient. Continue senna. Will request a clearance from digital printer after his cardiac catheterization that is scheduled for September 16. I will see him in 6 weeks, sooner on as needed basis. He is agreeable to this plan and verbalizes understanding of instructions. He was given the opportunity to ask questions and all questions answered. ? Thank you for allowing me to participate in his care Medications Refilled esomeprazole magnesium (Nexium) 40 mg PO DAILY 30 caps 5RF K21.9 TODAY'S VISIT Patient is here today for follow-up. Patient is accompanied by his mom. He brought all of his medications with him to verify. Patient reports that he has been doing well. Takes as omeprazole in the morning and his symptoms are suppressed for the most part. Patient admits that he is no longer eating large meals. Patient states that he is taking senna at night time and is able to move his bowels. Patient states that sometimes if he is having trouble moving his bowels he will have abdominal pain nausea feeling sweaty. He reports that it happened 1 time since last time he was seen. Patient feels that he empties his bowels, however does not feel like he empties them completely. Denies melena, hematochezia, dyspepsia, dysphagia or odynophagia. Patient reports that he feels significantly better. His breathing is also better. Currently he is been following with pulmonology, recent CT scan awaiting results. [facility] Medical History (Updated 09/20/23 @ 11:23 by Samantha Davis NP) Polysubstance abuse No known health problems Social History Alcohol intake: former Patient Tobacco Use Status: Former Tobacco user Substance Use Type: Marijuana Review of Systems Const Denies weight gain and Denies weight loss ENT Reports no additional complaints, Denies dysphagia and Denies odynophagia Card Reports no additional complaints Resp Reports no additional complaints GI Reports abdominal pain (Epigastric pain), Denies belching, Denies melena, Reports bloating, Denies change in bowel habits, Reports constipation, Denies dysphagia, Denies excessive flatus, Reports dyspepsia (Occasional), Denies heartburn, Denies diarrhea, Denies loose stools, Reports nausea, Denies odynophagia and Reports vomiting Reports no additional complaints Musc Reports no additional complaints Neuro Reports no additional complaints Psych Reports no additional complaints Endo Reports no additional complaints Physical Exam Vital Signs: Last Vital Signs Pulse 91 10/15/23 10:02 BP 119/58 L 10/15/23 10:02 BMI result Body Mass Index 45.8 Const General: cooperative, healthy appearing, comfortable and no acute distress Nutritional Appearance: obese Orientation/consciousness: patient oriented x3 Neck Neck: Yes normal visual inspection, Yes full ROM and Yes trachea midline Resp Effort & Inspection: normal respiratory effort, able to speak in complete sentences, no tracheal deviation and symmetric chest movement Auscultation: clear to auscultation bilaterally Cardio Rate: regular rate GI Inspection: Yes normal to inspection and No distended Palpation (GI): Soft to palpation, not firm, nontender and No hepatosplenomegaly present Auscultation: normal bowel sounds General: Yes no CVA tenderness Back/Spine/Pelvis Back: no CVA tenderness Skin General skin exam: elasticity normal, turgor normal and dry skin Neuro General: patient oriented x3 Psych Appearance: grossly normal Mental Status: mental status grossly normal Assessment & Plan Assessment & Plan (1) GERD (gastroesophageal reflux disease): Code(s): K21.9 - Gastro-esophageal reflux disease without esophagitis Qualifiers: Esophagitis presence: esophagitis presence not specified Qualified Code(s): K21.9 - Gastro-esophageal reflux disease without esophagitis (2) Epigastric abdominal pain: Code(s): R10.13 - Epigastric pain (3) Constipation: Code(s): K59.00 - Constipation, unspecified Qualifiers: Constipation type: chronic idiopathic constipation Qualified Code(s): K59.04 - Chronic idiopathic constipation (4) Hiatal hernia: Code(s): K44.9 - Diaphragmatic hernia without obstruction or gangrene Plan Continue PPI and H2 ligia. Continue avoiding dietary triggers and late night snacking. Small meals more often. Liver fibrosis panel ordered and ultrasound with elastography to stage liver disease. Increase fluid intake and activity to promote better bowel motility. Continue senna, will add MiraLax. Follow-up in the office in 3 months, sooner on as needed basis. Patient is agreeable to this plan and verbalizes understanding of instructions. He was given the opportunity to ask questions and all questions answered. Thank you for allowing me to participate in his care Orders: Orders Liver Fibrosis Pnl 10/15/23 R74.8 - Abnormal levels of other serum enzymes US abdomen younger w elastography 10/15/23 R74.01 - Elevation of levels of liver transaminase levels Medications: New polyethylene glycol 3350 (Miralax) 17 grams PO DAILY 510 grams 2RF Coding Level of Care Code Est Pt Level 4 (09404) Diagnoses Gastroesophageal reflux disease, unspecified whether esophagitis present K21.9 Esophagitis presence: esophagitis presence not specified Epigastric abdominal pain R10.13 Chronic idiopathic constipation K59.04 Constipation type: chronic idiopathic constipation Hiatal hernia K44.9 Time Spent (min) 35 Comment 20 minutes spent with patient and additional 15 minutes spent reviewing his records
[2023-10-15 10:02] VITALS: BP 119/58; PULSE 91; BMI 45.8
== END 2023-10-15 10:52 | disposition home or self-care (01) ==
PROVIDERS: PCP Nurse Practitioner Family; Visit Provider Nurse Practitioner Family
DX: K21.9 Gastro-esophageal reflux disease without esophagitis (principal); R10.13 Epigastric pain; K59.04 Chronic idiopathic constipation; K44.9 Diaphragmatic hernia without obstruction or gangrene
CPT/HCPCS: 99214

== ENCOUNTER 2023-10-18 10:51 | Outpatient (REF) | payer MEDICAID, SELFPAY ==
[2023-10-18 13:15] LABS: MANUAL DIFF FLAG NO
[2023-10-18 13:27] LABS: Basophils Percent Auto 0.5 % (0-2); Eosinophils Absolute Auto 0.4 X10*3/uL (0.0-0.4); Hemoglobin 11.6 g/dl (14.0-18.0); Imm Gran Abs Auto 0.08 X10*3/uL (0.00-0.03); Imm Gran Pct Auto 0.9 % (0.0-0.4); Lymphocytes Absolute Auto 1.7 X10*3/uL (1.2-4.9); Mean Corpuscular HGB Conc 30.5 g/dl (31.0-36.0); Mean Corpuscular Volume 85.2 fL (80.0-98.0); Mean Platelet Volume 9.8 fL (9.4-12.4); Monocytes Absolute Auto 0.7 X10*3/uL (0.1-1.2); Monocytes Percent Auto 7.8 % (2-11); Neutrophils Absolute Auto 5.9 x10*3/uL (2.0-8.3); Neutrophils Percent Auto 67.8 % (45-73); Platelet Count 255 X10*3/uL (160-400); Red Blood Count 4.46 X10*6/uL (4.60-5.80); White Blood Count 8.7 X10*3/uL (4.8-10.8)
[2023-10-18 13:53] LABS: Anion Gap 13 (12-20); Blood Urea Nitrogen 11 mg/dL (9-16); Calcium 8.5 mg/dL (8.4-10.2); Carbon Dioxide 28 mmol/L (22-29); Chloride 103 mmol/L (96-108); Estimated Glomerular Filt Rate > 60; Glucose Random 97 mg/dL (60-115); Sodium 140 mmol/L (135-145)
== END 2023-10-18 10:52 | disposition home or self-care (01) ==
LOC: HO.HHCL 10:51
PROVIDERS: Visit Provider Nurse Practitioner Family
DX: D50.9 Iron deficiency anemia, unspecified (principal)
CPT/HCPCS: 36415; 80048; 85025

== ENCOUNTER → 2023-11-15 09:44 | Outpatient (BNVA) | payer MEDICAID, SELFPAY | PROVIDERS: PCP Nurse Practitioner Family; Visit Provider Nurse Practitioner Family | DX: J45.909 Unspecified asthma, uncomplicated (principal); R06.09 Other forms of dyspnea | CPT/HCPCS: 99212 ==

== ENCOUNTER 2023-11-15 09:47 | Outpatient (AMB) | payer MEDICAID, SELFPAY ==
--- NOTE | 2023-11-15 09:45 | MHC.OFFVIS ---
Vital Signs 11/15/23 09:46 Height 5 ft 6 in Weight 282 lb 3.067 oz BMI 45.5 BP 116/70 Blood Pressure Location Rt brachial Position Sitting Pulse 94 Pulse Source Pulse Oximeter Pulse Oximetry (%) 93 Oxygen Delivery Method Room Air Intake Visit Reasons: Dyspnea Allergies penicillin V Allergy (Unknown, Verified 11/15/23 09:49) Unknown Penicillins [PENICILLINS] Allergy (Unknown, Verified 11/15/23 09:49) RASH penicillin Allergy (Unknown, Uncoded 11/15/23 09:49) Unknown HPI HPI Dyspnea: Details: Yaniv is a pleasant 38 year old male, former smoker with 20 pack year history, quit 2 years ago with underlying h/o substance abuse maintained on methadone and GERD. At the last visit he was switched from Breo 100 mcg to 200 mcg with moderate improvement in symptoms. He denies use of albuterol. He previously noted chronic cough. Chest CT suggestive of infectious etiology, prescribed azithromycin and has had resolution of cough. Prior cardiology workup reportedly negative, reports unavailable. Prior sleep study revealed moderate TYSON with nocturnal hypoxemia, <88% 24.1 minutes, lowest 77%. He will be starting CPAP therapy through [facility], and DME is [facility]. He was focused on RUQ abdominal discomfort and constipation for majority of the visit. He has upcoming appointment for ultrasound and follow up with GI. [facility] Medical History (Updated 10/19/23 @ 11:35 by Samantha Davis NP) Polysubstance abuse No known health problems Social History Alcohol intake: former Patient Tobacco Use Status: Former Tobacco user Substance Use Type: Marijuana Review of Systems Const Denies chills, Denies fever(s), Denies headache(s) and Denies night sweats Eyes Denies dry eyes, Denies irritation and Denies itchy eyes ENT Reports Normal hearing present, Denies headache(s), Denies nasal congestion, Denies nasal discharge, Denies post nasal drip and Denies sore throat Card Denies chest pain, Denies chest pain at rest, Denies chest pain with activity, Denies claudication, Denies leg edema, Denies orthopnea and Denies paroxysmal nocturnal dyspnea Resp Denies chest congestion, Denies excessive phlegm production, Denies pain on inspiration, Denies pain with cough and Denies stridor Musc Denies myalgias Neuro Reports Normal hearing present and Denies headache(s) Nnamdi/Lymph Denies lymphadenopathy Aller/Immun Denies itchy eyes and Denies seasonal rhinorrhea Physical Exam Vital Signs: Last Vital Signs Pulse 94 11/15/23 09:46 BP 116/70 11/15/23 09:46 Pulse Ox 93 11/15/23 09:46 Oxygen Delivery Method Room Air 11/15/23 09:46 BMI result Body Mass Index 45.5 Const General: cooperative, no acute distress, well developed and alert Nutritional Appearance: obese Orientation/consciousness: patient oriented x3 Limitations: no limitations HEENT Head: Yes normal to inspection, Yes normocephalic and Yes atraumatic Ears: hearing grossly normal bilaterally and external ears normal Eyes General: appearance normal, both eyes and all related structures Eyelids: Yes eyelids normal Sclerae: sclerae normal EOM: EOMs intact bilaterally Neck Neck: Yes normal visual inspection and Yes no lymphadenopathy Lymphatic: no lymphadenopathy noted Chest Chest palpation & inspection: normal inspection of the chest Resp Effort & Inspection: normal respiratory effort, able to speak in complete sentences, no audible wheezes, Actively coughing, no stridor, not tachypneic, no tripod positioning and no use of accessory muscles Auscultation: diminished lung sounds Cardio Jugular venous distension: no JVD Rate: regular rate Rhythm: regular rhythm GI Inspection: Yes normal to inspection and No distended Palpation (GI): Soft to palpation, not firm, nontender and No hepatosplenomegaly present Auscultation: normal bowel sounds General: Yes no CVA tenderness Back/Spine/Pelvis Back: no CVA tenderness Skin Other: warm, dry General skin exam: no rashes or lesions noted Neuro General: patient oriented x3 Cranial nerves: Yes Normal hearing present Cognition (Neuro): normal cognition Gait exam (Neuro): Normal gait present Extrem General: Yes normal to inspection, Yes capillary refill normal, Yes no clubbing, cyanosis or edema and Yes no pedal edema Psych Appearance: grossly normal and well kempt Mental Status: mental status grossly normal Speech and movement: Normal speech and movement present and Clear speech present Affect: Anxious affect present Attitude: cooperative Thought process: Normal thought process present Thought content: Normal thought content present Insight: Fair insight present (Psych) Judgement: Fair judgement present (Psych) Results Reviewed Results Reviewed: [address] [address] [address] Scan Report Signed Patient: Yaniv Gutierrez MR#: [id number] : 1985 Acct:[id number] Age/Sex: 38 / M ADM Date: 10/12/23 Loc: HO.CT Attending Dr: Samantha Davis NP Ordering Physician: Samantha Davis NP Date of Service: 10/12/23 Procedure(s): CT chest wo IV con Accession Number(s): [id number] cc: Roma Bender RN RECRUITMENT; Samantha Davis NP~ EXAMINATION: CT CHEST WITHOUT CONTRAST CLINICAL INFORMATION: Follow-up retrocardiac opacities. COMPARISON: Chest radiographs dated 08/09/2023. TECHNIQUE: Multidetector volumetric CT imaging of the chest was done. Axial MIP volume rendering provided. Sagittal and coronal reformatted images were obtained. This CT examination was performed using dose optimization techniques as appropriate, variously including the following: *Automated exposure control *Adjustment of mA and/or kV according to patient size (this includes techniques or standardized protocols for targeted exams where dose is matched to indication/reason for exam; i.e. extremities or head) *Use of iterative reconstruction technique DLP: 279 mGy-cm FINDINGS: PORTFOLIO CONSULTANT: The lungs are symmetrically well-expanded and grossly clear. LUNGS: Within the anterior segment of the right upper lobe (5:86), a 3 mm noncalcified nodule is seen. Within the left upper lobe laterally (5:210), a 2 mm noncalcified nodule is seen. Abutting the left major fissure (5:275), a 5 mm benign fissural lymph node is seen. Within the anteromedial basal segment of the left lower lobe (5:380), a 2 mm noncalcified nodule is seen. There are multiple further miliary nodules and peribronchial opacities seen within the bilateral lower lobes, left greater than right. There are scattered foci of linear scar/subsegmental atelectasis seen within the lungs, without associated focal airway obstruction. There is no generalized small airway thickening. The central airways appear patent. MEDIASTINUM: The mediastinum is normal. CORONARY ARTERY CALCIFICATION: None visualized on this study. PLEURA: There is no pleural effusion. No pleural mass or thickening. AXILLA: No lymphadenopathy. There is mild bilateral gynecomastia. UPPER ABDOMEN: There is a small hiatus hernia. There is mild hepatic steatosis. There is splenomegaly, with a longitudinal span in the transverse plane of 14.5 cm (3:54). OSSEOUS STRUCTURES: Unremarkable. CT/CT chest wo IV con IMPRESSION: 1. There are multiple bilateral pulmonary nodules, including numerous bilateral lower lobe faint miliary nodules and adjacent peribronchial groundglass opacities. These are likely infectious or inflammatory in etiology. Recommend clinical correlation and short-term follow-up CT imaging in 1-3 months to ensure clearance. 2. No gross infiltrate is seen. There is no mass lesion. 3. No thoracic lymphadenopathy or pleural effusion is seen. 4. Osseous structures are unremarkable. 5. There is a small hiatus hernia. 6. There is splenomegaly. 7. There is mild chronic gynecomastia. Fleischner guidelines were followed. Dictated By: Ganesh Lizarraga MD Signed By: <Electronically signed by Ganesh Lizarraga MD in OV> 10/12/23 2149 DD/ 0755 TD/TT: Shopping Centre Manager: MARIZA Assessment & Plan Assessment & Plan (1) Asthma: Code(s): J45.909 - Unspecified asthma, uncomplicated Category: Medical (2) Dyspnea on exertion: Code(s): R06.09 - Other forms of dyspnea Category: Medical Plan Yaniv reports good control of respiratory symptoms with Breo 200 mcg, advised to continue. He reports resolution of cough and will have repeat chest CT to assess for resolution of numerous bilateral lower lobe faint miliary nodules and adjacent peribronchial groundglass opacities, suggestive of infectious or inflammatory etiologies. Recommendations for follow up chest CT which patient has scheduled. He is established with [facility] sleep and will be starting CPAP therapy. He is motivated to use as he reports significant daytime fatigue. At the last visit, ENT referral entered for significant issues due to deviated septum related to excessive cocaine abuse in the past. This has yet to be scheduled. All questions were answered and patient is in agreement of plan. Will follow-up to review results or sooner if needed. Medications: Discontinued fluticasone furoate-vilanterol 100-25 mcg/dose (Breo Ellipta) Discontinued Reason: Patient Completed Course 1 inh inhalation DAILY 60 ea 2RF Coding Level of Care Code Est Pt Level 4 (39876) Diagnoses Asthma J45.909 Dyspnea on exertion R06.09
[2023-11-15 09:46] VITALS: BP 116/70; PULSE 94; O2SAT 93; BMI 45.5
== END 2023-11-15 10:20 | disposition home or self-care (01) ==
PROVIDERS: PCP Nurse Practitioner Family; Visit Provider Nurse Practitioner Family
DX: J45.909 Unspecified asthma, uncomplicated (principal); R06.09 Other forms of dyspnea
CPT/HCPCS: 99214

== ENCOUNTER 2023-11-19 09:15 | Outpatient (REF) | payer MEDICAID, SELFPAY ==
--- NOTE | ~2023-11-19 | US_ITS ---
EXAMINATION: US ABDOMEN LIMITED WITH LIVER ELASTOGRAPHY CLINICAL INFORMATION: Elevated transaminase. COMPARISON: CT abdomen and pelvis 02/15/2023. TECHNIQUE: Real-time imaging of the abdominal viscera. Noninvasive ultrasound liver fibrosis assessment is performed using Chencho ElastPQ point quantification shear wave elastography (pSWE) with a 5 MHz transducer. Multiple elastography samples are obtained. FINDINGS: PANCREAS: Pancreas was obscured by bowel gas and could not be seen. LIVER: The liver is enlarged similar to the prior CT scan and demonstrates increased echogenicity consistent with hepatic steatosis. No focal lesion or intrahepatic biliary duct dilatation. The right lobe measures 19.2 cm in length. The left lobe measures 13.5 cm in length. Shear wave elastography provides a median stiffness of 1.90 m/s (reference: normal median stiffness is 0.81 - 1.22 m/s). The IQR/median stiffness to assess sampling precision is 0.12 (reference: optimal IQR/median stiffness is under 0.3). GALLBLADDER: Normal. The gallbladder is physiologically distended without evidence of stones, sludge, polyps, wall thickening or pericholecystic fluid. COMMON BILE DUCT: Normal in caliber measuring 0.8 cm in diameter. RIGHT KIDNEY: No hydronephrosis. No renal calculi or focal parenchymal lesions. The kidney measures 11.5 cm in maximum dimension. FREE FLUID: None. US/US abdomen younger w elastography IMPRESSION: 1. Enlarged fatty liver. 2. Elastography: Liver elastography measurements are consistent with a moderate risk for clinically significant liver fibrosis (METAVIR Stage F2-F3). Electronically signed by: Misael Mcdowell MD 12/09/2023 09:57 PM EDT
== END 2023-11-19 09:16 | disposition home or self-care (01) ==
LOC: HO.US 09:15
PROVIDERS: PCP Nurse Practitioner Family; Visit Provider Nurse Practitioner Family
DX: R74.01 Elevation of levels of liver transaminase levels (principal)
CPT/HCPCS: 76705; 76981

== ENCOUNTER 2023-11-21 16:18 | Emergency (ER) | payer MEDICAID, SELFPAY ==
--- NOTE | ~2023-11-21 | CT_ITS ---
EXAMINATION: CT ABDOMEN AND PELVIS WITH CONTRAST CLINICAL INFORMATION: Right-sided abdominal pain, nausea, vomiting COMPARISON: None TECHNIQUE: Multiple axial images were obtained from the superior aspect of the liver through the pubic symphysis after the administration of 85 mL of intravenous Omnipaque. Images were evaluated on independent dedicated 3-D workstation and 3-D images were reconstructed with concurrent radiologist supervision and subsequently interpreted. Oral contrast was not administered. This CT examination was performed using dose optimization techniques as appropriate, variously including the following: *Automated exposure control *Adjustment of mA and/or kV according to patient size (this includes techniques or standardized protocols for targeted exams where dose is matched to indication/reason for exam; i.e. extremities or head) *Use of iterative reconstruction technique DLP: 912 mGy-cm FINDINGS: LUNG BASES: The visualized lung bases are clear. CARDIOMEDIASTINUM: The visualized heart is normal in size without pericardial effusion. No coronary artery calcification. LIVER: Diffuse hypoattenuation of the hepatic parenchyma, which can be seen in the setting of hepatic steatosis. Enlarged measuring 21 cm in the midclavicular line. GALLBLADDER: Noninflamed. BILIARY SYSTEM: No intrahepatic or extrahepatic biliary dilation. PANCREAS: Atrophic. SPLEEN: Normal in size measuring 15 cm. GENITOURINARY: Bilateral kidneys demonstrate symmetric enhancement. No perinephric fluid collection. No renal calculi. No hydroureteronephrosis. ADRENAL GLANDS: Unremarkable. REPRODUCTIVE: Prostate present. GASTROINTESTINAL: Hiatal hernia. The visualized alimentary tract is normal in course. No evidence of obstruction. APPENDIX: The appendix is not visualized; however, no pericecal inflammatory changes are seen in the right lower quadrant. PERITONEUM: No pneumoperitoneum. No intra-abdominal fluid collection. VASCULATURE: The abdominal aorta is normal in course and caliber. LYMPH NODES: No pathologically enlarged abdominal or pelvic lymph nodes. SOFT TISSUES/MUSCULOSKELETAL: Degenerative disc disease at L5-S1 with disc herniation resulting in moderate bilateral neural foraminal stenosis. Grade 1 retrolisthesis of L4 on L5. CT/CT abdomen pelvis w IV con IMPRESSION: 1. No acute abdominal or pelvic pathology. 2. Hepatic steatosis and hepatomegaly. 3. Age advanced pancreatic atrophy, which can be seen in the setting of diabetes. Fleischner guidelines were followed.
--- NOTE | ~2023-11-21 | XR_ITS ---
EXAMINATION: XR CHEST CLINICAL INFORMATION: Abdominal pain. Productive cough COMPARISON: Chest CT on 10/12/2023 TECHNIQUE: 2 views of the chest were obtained. FINDINGS: The cardiac silhouette is normal. There is mild diffuse bronchial wall thickening. There are no areas of consolidation. There are no pleural effusions or pneumothoraces. The bones and soft tissues are unremarkable for the patient's age. XR/XR chest 2V IMPRESSION: Bronchial wall thickening may be infectious and/or inflammatory in etiology.
[2023-11-21 16:30] VITALS: BP 128/83; PULSE 80; O2SAT 98; BMI 44.8
[2023-11-21 16:37] VITALS: BP 130/89; PULSE 76; RESP 16; TEMP 36.9; O2SAT 97
[2023-11-21 17:03] LABS: Hematocrit 37.6 % (42.0-52.0); Mean Corpuscular HGB Conc 31.9 g/dl (31.0-36.0); Mean Corpuscular Hemoglobin 25.8 pg (27.0-33.0); Mean Corpuscular Volume 80.9 fL (80.0-98.0); Mean Platelet Volume 9.1 fL (9.4-12.4); Platelet Count 246 X10*3/uL (160-400); Red Blood Count 4.65 X10*6/uL (4.60-5.80); Red Cell Distribution Width 14.2 % (11.0-16.0); White Blood Count 16.3 X10*3/uL (4.8-10.8)
--- NOTE | 2023-11-21 17:08 | ED.GENADULT ---
HPI - General Adult General Chief complaint: Nausea/Vomiting/Diarrhea Stated complaint: abd pain Time Seen by Provider: 11/21/23 17:08 Source: patient, family (mom), RN notes reviewed and old records reviewed Limitations: no limitations History of Present Illness HPI narrative: 38-year-old male who has a history of polysubstance use, currently on methadone take home, asthma, chronic abdominal pain, presents for evaluation of worsening abdominal pain, nausea and vomiting. Patient states that he has had problems with abdominal pain for over 2 years. He has had multiple evaluations for this and is currently being followed by GI. Of note, patient had a outpatient ultrasound on November 18. He does not know the results of this test at this time. Patient states that he has intermittent episodes of nausea and vomiting typically once per month where he vomits shortly after taking his methadone. Patient states that this happened 3 times this month, most recently this morning. He is able to supplement his methadone from his take-home bottles. He does not feel like he is in withdrawal. Currently the patient is complaining of right-sided abdominal pain. He reports it as mild and has improved since coming into the emergency department. He has nausea at this time but no vomiting. He denies any diarrhea. He does report intermittent constipation. Reports subjective chills. He denies any unintended weight loss. He has had decreased p.o. intake but was able to tolerate some soup earlier. Denies any chest pain or shortness of breath. No URI symptoms. Related Data Home Medications ?Medication ?Instructions ?Recorded ?Confirmed prazosin 5 mg capsule 5 mg PO BEDTIME 03/19/23 albuterol sulfate 90 mcg/actuation 2 puff inhalation Q4H PRN wheezing 09/02/23 aerosol inhaler (Ventolin HFA) aspirin 81 mg tablet,delayed 81 mg PO DAILY 09/02/23 release bupropion HCl 150 mg 24 hr tablet, 150 mg PO QAM 09/02/23 extended release mirtazapine 15 mg tablet 15 mg PO BEDTIME 09/02/23 quetiapine 50 mg tablet 50 mg PO BID 09/02/23 ferrous gluconate 324 mg (38 mg 324 mg PO DAILY 11/15/23 iron) tablet Previous Rx's ?Medication ?Instructions ?Recorded famotidine 40 mg tablet 40 mg PO BEDTIME 90 days #90 tabs 06/28/23 esomeprazole magnesium 40 mg 40 mg PO DAILY #30 caps 09/02/23 capsule,delayed release (Nexium) fluticasone furoate 200 1 inh inhalation DAILY #60 ea 09/20/23 mcg-vilanterol 25 mcg/dose inhalation powder (Breo Ellipta) polyethylene glycol 3350 17 17 g PO DAILY #510 grams 10/15/23 gram/dose oral powder (Miralax) sennosides 8.6 mg tablet (Natural 17.2 mg (2 x 8.6 mg) PO BEDTIME 10/25/23 Senna Laxative) constipation #180 tabs clindamycin HCl 300 mg capsule 300 mg PO TID #30 caps 11/21/23 ondansetron 4 mg disintegrating 4 mg PO Q8H PRN nausea and 11/21/23 tablet vomiting #12 tabs Allergies Allergy/AdvReac Type Severity Reaction Status Date / Time penicillin V Allergy Unknown Unknown Verified 11/21/23 16:32 Penicillins [PENICILLINS] Allergy Unknown RASH Verified 11/21/23 16:32 penicillin Allergy Unknown Unknown Uncoded 11/21/23 16:32 Review of Systems Constitutional: Constitutional: Denies headache(s) ENT: Denies headache(s), Denies nasal congestion, Denies nasal discharge, Denies neck pain and Denies sore throat Cardiovascular: Cardiovascular: Denies chest pain, Denies palpitations, Denies dyspnea, Denies dyspnea on exertion and Denies orthopnea Respiratory: Respiratory: Denies cough, Denies dyspnea and Denies dyspnea on exertion Gastrointestinal: Gastrointestinal: Reports abdominal pain, Denies melena, Denies hematochezia, Reports constipation, Denies diarrhea, Reports nausea and Reports vomiting Genitourinary: Genitourinary: Denies difficulty urinating, Denies dysuria and Denies urinary urgency Musculoskeletal: Musculoskeletal: Denies back pain, Denies muscle weakness, Denies neck pain and Denies numbness Integumentary/Breasts: Skin/Breast: Denies rash Neurologic: Denies headache(s), Denies focal weakness and Denies numbness Psychiatric: Psychiatric: Denies depression Endocrine: Endocrine: Denies palpitations [facility] Past Medical History Attestation statement: The following information was validated with the patient. [facility] Narrative: Asthma, polysubstance use Medical History Polysubstance abuse No known health problems Social History Social History Alcohol intake: former Patient Tobacco Use Status: Former Tobacco user Smoked in Last 30 Days: Yes Use of substances other than those prescribed or required for medical reasons: Yes Substance Use Type: Marijuana Substance Use Frequency: Daily Last Used Substance: Just Prior to Admission Advance Directives: No Advance Directives Information Provided: No Do you have a plan to hurt others: No Plan Physical Exam ED Vital Signs: Vital Signs - 24 hr 11/21/23 16:37 11/21/23 18:20 11/21/23 23:02 Temperature 98.4 F 98.3 F 98.5 F Pulse Rate 76 76 80 Respiratory Rate 16 16 16 Blood Pressure 130/89 140/91 H 136/80 Pulse Oximetry 97 92 95 Oxygen Delivery Method Room Air Room Air Room Air BMI result Body Mass Index 44.8 Const General: alert and awake Orientation/consciousness: patient oriented x3 HENMT Other: Pupils are equal round reactive to light. Nares are patent. Oropharynx is moist. Teeth are in poor repair with numerous decayed and broken dentition, mainly on the upper portion of the mouth. No exudate. Neck Neck: No positive Brudzinski's sign Resp Auscultation: clear to auscultation bilaterally Cardio Rate: regular rate Rhythm: regular rhythm GI Other: Abdomen is obese. It is soft and nontender. There is no peritoneal signs. No CVAT. Neuro General: patient oriented x3 Extrem Other: No calf tenderness or pedal edema Course Course Course Narrative: Patient with difficult IV access, nursing ultimately able to obtain IV. Symptoms have improved with medications. CT pending at this time. 10:[address] results returned. No acute process. Patient is resting comfortably at this time and is feeling much better. His symptoms have resolved. He was able to tolerate liquids without difficulty. The patient feels comfortable with discharge plan home. He will continue his current medications and follow up with his urban anthropologist, Kofi OSCAR. Trial of Zofran. Patient expresses understanding of all discharge instructions and has no further questions at this time. Reevaluation(s) Reevaluation #1: The patient had been seen by the physician funeral director's assistant with the plan for discharge. The patient was comfortable being discharged but told the discharging nurse that he feels that he has dental pain at tooth number a and he is concerned that he has a dental infection and seemed to be eager to go on antibiotics. He has a penicillin allergy. He was started on clindamycin with a prescription and should follow up with his dentist. Solis Coleman Medications Administered Discontinued Medications Generic Name Dose Route Start Last Admin Trade Name Linda PRN Reason Stop Dose Admin Sodium Chloride 1,000 mls @ 999 mls/hr 11/21/23 17:30 11/21/23 21:00 Ns IV 11/21/23 18:30 Infused .Q1H1M SHEELA Infusion Iohexol 85 ml 11/21/23 20:18 11/21/23 20:19 Iohexol 350 Mg/Ml 100 Ml Infus..Btl IV 11/21/23 20:19 85 ml ONCE ONE Administration Ondansetron HCl 4 mg 11/21/23 17:23 11/21/23 19:58 Ondansetron Hcl 4 Mg/2 Ml Vial IVPUSH 11/21/23 17:24 4 mg ONCE ONE Administration Medical Decision Making Medical Decision Making [facility] Narrative: 38-year-old male with a history of asthma, currently on methadone maintenance, presents with acute on chronic abdominal pain nausea vomiting. Review of ultrasound from November 18, official reading not available at this time. Concern for other intra-abdominal process such as viral enteritis, constipation, colitis or appendicitis. Patient is abdominal exam is unremarkable at this time. Will treat nausea and vomiting with antiemetics. Check CT of the abdomen and pelvis. White blood cells returned at 16. Patient has had increased leukocytosis in the past. Mild hypomagnesemia, will treat with oral medication once CT returns. Check chest x-ray. IV fluids. Also check CPK. Differential Diagnosis Differential Diagnoses: The differential diagnosis associated with the presentation includes Colitis Constipation Bowel obstruction Viral syndrome Opioid withdrawal Lab Data [facility] Lab Attestation statement: I reviewed the patient's lab results. 11/21/23 16:57 11/21/23 16:57 Labs: Lab Results 11/21/23 11/21/23 11/21/23 Range/Units 16:50 16:57 17:35 WBC 16.3 H (4.8-10.8) X10*3/uL RBC 4.65 (4.60-5.80) X10*6/uL Hgb 12.0 L (14.0-18.0) g/dl Hct 37.6 L (42.0-52.0) % MCV 80.9 (80.0-98.0) fL MCH 25.8 L (27.0-33.0) pg MCHC 31.9 (31.0-36.0) g/dl RDW 14.2 (11.0-16.0) % Plt Count 246 (160-400) X10*3/uL MPV 9.1 L (9.4-12.4) fL Immature Gran % (Auto) Cancelled Neut % (Auto) Cancelled Lymph % (Auto) Cancelled [place] % (Auto) Cancelled Eos % (Auto) Cancelled Baso % (Auto) Cancelled Lymph # (Auto) Cancelled [place] # (Auto) Cancelled Eos # (Auto) Cancelled Baso # (Auto) Cancelled Abs Immat Gran (auto) Cancelled Absolute Neuts (auto) Cancelled Absolute Nucleated RBC 0.000 (0.0-0.012) X10*3/uL Nucleated RBC % (auto) 0.0 (0.0-0.2) /100WBC Neutrophils % (Manual) 79 H (45-73) % Band Neutrophils % 17 H (3-5) % Lymphocytes % (Manual) 2 L (20-40) % Monocytes % (Manual) 2 (2-11) % Abs Neuts (Manual) 15.6 H (2.0-8.3) X10*3/uL Lymphocytes # (Manual) 0.3 L (1.2-4.9) X10*3/uL Monocytes # (Manual) 0.3 (0.1-1.2) X10*3/uL Platelet Estimate NORMAL (NORMAL) Plt Morphology Comment NORMAL RBC Morphology NORMAL Smear Tech's Comments MANUAL DIFF Sodium 137 (135-145) mmol/L Potassium 4.0 (3.3-5.1) mmol/L Chloride 104 (96-108) mmol/L Carbon Dioxide 25 (22-29) mmol/L Anion Gap 12 (12-20) BUN 10 (9-16) mg/dL Creatinine 0.87 (0.5-1.4) mg/dL Estim Creat Clear Calc 152.0 Estimated GFR > 60 Random Glucose 117 H (60-115) mg/dL Calcium 9.2 D (8.4-10.2) mg/dL Magnesium 1.5 L (1.6-2.6) mg/dL Total Bilirubin 0.8 (0.0-1.0) mg/dL Direct Bilirubin 0.4 (0.0-0.5) mg/dL AST 18 (5-37) U/L ALT 16 (0-40) U/L Alkaline Phosphatase 87 (39-117) U/L Total Creatine Kinase 193 H (38-174) U/L Total Protein 7.4 (6.5-8.0) g/dL Albumin 3.9 (3.5-5.0) g/dL Lipase 7 L (8-78) U/L Urine Color Yellow Urine Appearance Clear Urine pH >= 9.0 (5.0-9.0) Ur Specific [place] 1.020 (1.005-1.025) Urine Protein 100 (2+) H (Neg-Trace) mg/dL Urine Glucose (UA) Negative (Negative) mg/dL Urine Ketones Negative (Negative) mg/dL Urine Blood Negative (Negative) Urine Nitrite Negative (Negative) Ur Leukocyte Esterase Negative (Negative) Urine RBC 0-2 (0-2) /HPF Urine WBC 0-5 (0-5) /HPF Ur Squamous Epith Cells 0-2 (0-2) /HPF Urine Bacteria None Seen (None Seen) Hyaline Casts 0-2 (0-2) /LPF Urine Opiates Screen Not Detected (Not Detect) Ur Buprenorphine Scrn Not Detected (Not Detect) ng/mL Ur Oxycodone Screen Not Detected (Not Detect) ng/mL Urine Methadone Screen Not Detected (Not Detect) ng/mL Urine Fentanyl Screen Not Detected (Not Detect) Ur Barbiturates Screen Not Detected (Not Detect) Ur Phencyclidine Scrn Not Detected (Not Detect) Ur Amphetamines Screen Not Detected (Not Detect) U Benzodiazepines Scrn Not Detected (Not Detect) Urine Cocaine Screen Not Detected (Not Detect) U Marijuana (THC) Screen POSITIVE H (Not Detect) Influenza Type A (PCR) NEGATIVE (Negative) Influenza Type B (PCR) NEGATIVE (Negative) RSV RNA Qual (PCR) NEGATIVE (Negative) SARS-CoV-2 RNA (RT-PCR) NEGATIVE (Negative) Radiology Impression Discussion of test interpretation with radiology: I have reviewed the radiologist's reading. Radiologist Impression: [place] [id number] [place] [id number] CT Scan Report Signed Patient: Yaniv Gutierrez MR#: [id number] : 1985 Acct:[id number] Age/Sex: 38 / M ADM Date: 11/21/23 Loc: HO.ED Attending Dr: Ordering Physician: Reagan Christy Date of Service: 11/21/23 Procedure(s): CT abdomen pelvis w IV con Accession Number(s): [id number] cc: Roma Bender SENIOR BUSINESS INTELLIGENCE ANALYST; Reagan Christy~ EXAMINATION: CT ABDOMEN AND PELVIS WITH CONTRAST CLINICAL INFORMATION: Right-sided abdominal pain, nausea, vomiting COMPARISON: None TECHNIQUE: Multiple axial images were obtained from the superior aspect of the liver through the pubic symphysis after the administration of 85 mL of intravenous Omnipaque. Images were evaluated on independent dedicated 3-D workstation and 3-D images were reconstructed with concurrent radiologist supervision and subsequently interpreted. Oral contrast was not administered. This CT examination was performed using dose optimization techniques as appropriate, variously including the following: *Automated exposure control *Adjustment of mA and/or kV according to patient size (this includes techniques or standardized protocols for targeted exams where dose is matched to indication/reason for exam; i.e. extremities or head) *Use of iterative reconstruction technique DLP: 912 mGy-cm FINDINGS: LUNG BASES: The visualized lung bases are clear. CARDIOMEDIASTINUM: The visualized heart is normal in size without pericardial effusion. No coronary artery calcification. LIVER: Diffuse hypoattenuation of the hepatic parenchyma, which can be seen in the setting of hepatic steatosis. Enlarged measuring 21 cm in the midclavicular line. GALLBLADDER: Noninflamed. BILIARY SYSTEM: No intrahepatic or extrahepatic biliary dilation. PANCREAS: Atrophic. SPLEEN: Normal in size measuring 15 cm. GENITOURINARY: Bilateral kidneys demonstrate symmetric enhancement. No perinephric fluid collection. No renal calculi. No hydroureteronephrosis. ADRENAL GLANDS: Unremarkable. REPRODUCTIVE: Prostate present. GASTROINTESTINAL: Hiatal hernia. The visualized alimentary tract is normal in course. No evidence of obstruction. APPENDIX: The appendix is not visualized; however, no pericecal inflammatory changes are seen in the right lower quadrant. PERITONEUM: No pneumoperitoneum. No intra-abdominal fluid collection. VASCULATURE: The abdominal aorta is normal in course and caliber. LYMPH NODES: No pathologically enlarged abdominal or pelvic lymph nodes. SOFT TISSUES/MUSCULOSKELETAL: Degenerative disc disease at L5-S1 with disc herniation resulting in moderate bilateral neural foraminal stenosis. Grade 1 retrolisthesis of L4 on L5. CT/CT abdomen pelvis w IV con IMPRESSION: 1. No acute abdominal or pelvic pathology. 2. Hepatic steatosis and hepatomegaly. 3. Age advanced pancreatic atrophy, which can be seen in the setting of diabetes. Fleischner guidelines were followed. Dictated By: Vaughn Kenney Signed By: <Electronically signed by Vaughn Kenney in [place]> 11/21/232158 DD/ 18 TD/TT: Relationship Assoc: [place] [id number] XRay Report Signed Patient: Yaniv Gutierrez MR#: [id number] : 1985 Acct:[id number] Age/Sex: 38 / M ADM Date: 11/21/23 Loc: HO.ED Attending Dr: Ordering Physician: Reagan Christy Date of Service: 11/21/23 Procedure(s): XR chest 2V Accession Number(s): [id number] cc: Roma Bender SENIOR BUSINESS INTELLIGENCE ANALYST; Reagan Christy~ EXAMINATION: XR CHEST CLINICAL INFORMATION: Abdominal pain. Productive cough COMPARISON: Chest CT on 10/12/2023 TECHNIQUE: 2 views of the chest were obtained. FINDINGS: The cardiac silhouette is normal. There is mild diffuse bronchial wall thickening. There are no areas of consolidation. There are no pleural effusions or pneumothoraces. The bones and soft tissues are unremarkable for the patient's age. XR/XR chest 2V IMPRESSION: Bronchial wall thickening may be infectious and/or inflammatory in etiology. Dictated By: Kacie Roman MD Signed By: <Electronically signed by Kacie Roman MD in [place]> 11/21/23 175 DD/ 48 TD/TT: Relationship Assoc: PN Discharge Plan Discharge Clinical Impression: Abdominal pain, Nausea and vomiting, Pain, dental Patient Disposition: Home, Self-Care Instructions: Acute Nausea and Vomiting (ED), Abdominal Pain (ED) Additional Instructions: Clear liquids. [place] diet. Gradually advanced. Zofran as directed for nausea. Follow-up with your primary care provider. Call this week to schedule a follow-up appointment. Return to the emergency department if you have any worsening of symptoms, or any concerns. Get well soon! Prescriptions: New ondansetron 4 mg tablet,disintegrating 4 mg PO Q8H PRN (Reason: nausea and vomiting) Qty: 12 0RF clindamycin HCl 300 mg capsule 300 mg PO TID Qty: 30 0RF No Action famotidine 40 mg tablet 40 mg PO BEDTIME 90 Days Qty: 90 3RF sennosides [Natural Senna Laxative] 8.6 mg tablet 17.2 mg PO BEDTIME Qty: 180 1RF quetiapine 50 mg tablet 50 mg PO BID aspirin 81 mg tablet,delayed release (DR/EC) 81 mg PO DAILY albuterol sulfate [Ventolin HFA] 90 mcg/actuation HFA aerosol inhaler 2 puff inhalation Q4H PRN (Reason: wheezing) bupropion HCl 150 mg tablet extended release 24 hr 150 mg PO QAM mirtazapine 15 mg tablet 15 mg PO BEDTIME esomeprazole magnesium [Nexium] 40 mg capsule,delayed release(DR/EC) 40 mg PO DAILY Qty: 30 5RF prazosin 5 mg capsule 5 mg PO BEDTIME fluticasone furoate-vilanterol [Breo Ellipta] 200-25 mcg/dose blister with device 1 inh inhalation DAILY Qty: 60 3RF polyethylene glycol 3350 [Miralax] 17 gram/dose powder 17 g PO DAILY Qty: 510 2RF ferrous gluconate 324 mg (38 mg iron) tablet 324 mg PO DAILY Referrals: Kendra Fine, [facility] [Nurse Practitioner] - 1 week (abd pain, n/v) Interventions: ED Discharge Assessment Last Done: 11/21/23 23:02 Discharge Date/Time: 11/21/23 23:03 Print Language: Telugu
[2023-11-21 17:09] LABS: Appearance Urine Clear; Color Urine Yellow; Glucose Urine UA Negative (Negative); Leukocyte Esterase Urine Negative (Negative); Nitrite Urine Negative (Negative); PH >= 9.0 (5.0-9.0); UMIC TRIGGER UACC YES; Urine Blood Negative (Negative); Urine Ketones Negative (Negative); Urine Protein 100 (2+) mg/dL (Neg-Trace)
[2023-11-21 17:17] LABS: Amphetamine Screen Urine Not Detected (Not Detect); Barbiturates, Urine Not Detected (Not Detect); Benzodiazepines Screen Urine Not Detected (Not Detect); Buprenorphine Scr Not Detected (Not Detect); Cannabinoid Screen Urine POSITIVE (Not Detect); Cocaine Screen Urine Not Detected (Not Detect); Fentanyl, urine Not Detected (Not Detect); Methadone Screen, Urine Not Detected (Not Detect); Opiate Screen Urine Not Detected (Not Detect); Oxycodone Screen Urine Not Detected (Not Detect); Phencyclidine Screen Urine Not Detected (Not Detect)
[2023-11-21 17:18] LABS: Alanine Aminotransferase 16 U/L (0-40); Albumin Level 3.9 g/dL (3.5-5.0); Alkaline Phosphatase 87 U/L (39-117); Anion Gap 12 (12-20); Aspartate Amino Transferase 18 U/L (5-37); Bilirubin Direct 0.4 mg/dL (0.0-0.5); Bilirubin Total 0.8 mg/dL (0.0-1.0); Blood Urea Nitrogen 10 mg/dL (9-16); Calcium 9.2 mg/dL (8.4-10.2); Carbon Dioxide 25 mmol/L (22-29); Chloride 104 mmol/L (96-108); Estimated Glomerular Filt Rate > 60; Glucose Random 117 mg/dL (60-115); Lipase 7 U/L (8-78); Magnesium 1.5 mg/dL (1.6-2.6); Sodium 137 mmol/L (135-145); Total Protein 7.4 g/dL (6.5-8.0)
[2023-11-21 17:34] LABS: SLIDE REVIEW MANUAL DIFF
[2023-11-21 17:44] LABS: Neutrophils Percent Manual 79 % (45-73)
[2023-11-21 17:45] LABS: Band Neutrophils Percent 17 % (3-5); Lymphocytes Absolute Manual 0.3 X10*3/uL (1.2-4.9); Lymphocytes Percent Manual 2 % (20-40); Monocytes Absolute Manual 0.3 X10*3/uL (0.1-1.2); Monocytes Percent Manual 2 % (2-11); Neutrophils Absolute Manual 15.6 X10*3/uL (2.0-8.3)
[2023-11-21 17:49] LABS: Bacteria Urine None Seen (None Seen); Hyaline Casts Urine 0-2 /LPF (0-2); RBC Urine 0-2 /HPF (0-2); Squamous Epithelial Cell Urine 0-2 /HPF (0-2); WBC Urine 0-5 /HPF (0-5)
[2023-11-21 18:00] LABS: Platelet Estimate NORMAL (NORMAL); Platelet Morphology Comment NORMAL; RBC Morphology NORMAL
[2023-11-21 18:17] LABS: Influenza A PCR NEGATIVE (Negative); Influenza B PCR NEGATIVE (Negative); Resp Syncy Virus RNA Qual PCR NEGATIVE (Negative); SARS COV2 PCR INHOUSE NEGATIVE (Negative)
[2023-11-21 18:20] VITALS: BP 140/91; PULSE 76; RESP 16; TEMP 36.8; O2SAT 92
--- NOTE | 2023-11-21 19:20 | PC.NURSE ---
assumed care of pt at this time. pt was difficult stick unable to establish iv previously. iv established now pt to ct scan.
[2023-11-21] MEDS: ondansetron HCL 4 MG/2 ML VIAL IVPUSH (19:58)
[2023-11-21] MEDS: 0.9 % Sodium Chloride 1,000 ML 999 ML IV (19:58)
[2023-11-21] MEDS: iohexoL 350 MG/ML 100 ML INFUS..BTL 85 ML IV (20:19)
--- NOTE | 2023-11-21 20:47 | PC.NURSE ---
ivf infusing. pt reports some nausea, medicated per mar. denies pain at this time. ambulatory with steady gait. resting comfortably in stretcher warm blankets provided per request .call salgado within reach.
[2023-11-21 23:02] VITALS: BP 136/80; PULSE 80; RESP 16; TEMP 36.9; O2SAT 95
== END 2023-11-21 23:03 | disposition home or self-care (01) ==
PROVIDERS: Physician Assistant; Emergency Provider Emergency Medicine; PCP Nurse Practitioner Family
DX: R11.2 Nausea with vomiting, unspecified (principal); R10.9 Unspecified abdominal pain; K08.89 Other specified disorders of teeth and supporting structures; R05.9 Cough, unspecified; Z03.818 Encounter for observation for suspected exposure to other biological agents ruled out; Z79.899 Other long term (current) drug therapy
CPT/HCPCS: 0241U; 36415; 71046; 74177; 80048; 80076; 80307; 81001; 82550; 83690; 83735; 85007; 85027; 96361; 96374; 99284; J2405; Q9967

== ENCOUNTER 2023-12-17 13:38 | Outpatient (REF) | payer MEDICAID, SELFPAY ==
--- NOTE | ~2023-12-17 | CT_ITS ---
EXAMINATION: CT CHEST WITHOUT CONTRAST CLINICAL INFORMATION: Pulmonary nodules COMPARISON: September 12, 2023 TECHNIQUE: Multidetector volumetric CT imaging of the chest was done. Axial MIP volume rendering provided. Sagittal and coronal reformatted images were obtained. This CT examination was performed using dose optimization techniques as appropriate, variously including the following: *Automated exposure control *Adjustment of mA and/or kV according to patient size (this includes techniques or standardized protocols for targeted exams where dose is matched to indication/reason for exam; i.e. extremities or head) *Use of iterative reconstruction technique DLP: 278 mGy-cm FINDINGS: BUNGY JUMP MASTER: Unremarkable LUNGS: There is stable 0.4 cm nodule seen in the left lower lobe adjacent to fissure . There is mosaic attenuation of lungs and linear banding in left lower lobe MEDIASTINUM: The mediastinum is normal. CORONARY ARTERY CALCIFICATION: None visualized on this study. PLEURA: There is no pleural effusion. No pleural mass or thickening. AXILLA: No lymphadenopathy. UPPER ABDOMEN: There is low-attenuation of the liver due to hepatic steatosis and mild splenomegaly. OSSEOUS STRUCTURES: Unremarkable. CT/CT chest wo IV con IMPRESSION: 1. Stable 0.4 cm nodule in the left lower lobe. 2. Mosaic attenuation of lungs linear banding most likely due to airway disease/COPD. 3. Hepatic steatosis and mild splenomegaly. Fleischner guidelines were followed. Electronically signed by: Lionel Hudson MD 12/24/2023 09:28 AM EDT
== END 2023-12-17 13:39 | disposition home or self-care (01) ==
LOC: HO.CT 13:38
PROVIDERS: PCP Nurse Practitioner Family; Visit Provider Nurse Practitioner Family
DX: R93.89 Abnormal findings on diagnostic imaging of other specified body structures (principal)
CPT/HCPCS: 71250

== ENCOUNTER 2023-12-27 09:23 | Outpatient (AMB) | payer MEDICAID, SELFPAY ==
[2023-12-27 09:26] VITALS: BP 140/88; PULSE 78; O2SAT 93; BMI 44.9
--- NOTE | 2023-12-27 09:26 | A.OFFVIS_ITS ---
Vital Signs 12/27/23 09:26 Height 5 ft 7 in Weight 286 lb 9.615 oz BMI 44.9 BP 140/88 H Blood Pressure Location Rt brachial Position Sitting Pulse 78 Pulse Source Pulse Oximeter Pulse Oximetry (%) 93 Oxygen Delivery Method Room Air Intake Visit Reasons: Dyspnea Allergies penicillin V Allergy (Unknown, Verified 12/27/23 09:30) Unknown Penicillins [PENICILLINS] Allergy (Unknown, Verified 12/27/23 09:30) RASH penicillin Allergy (Unknown, Uncoded 12/27/23 09:30) Unknown HPI HPI Dyspnea: Details: Yaniv is a pleasant 38 year old male, former smoker with 20 pack year history, quit 2 years ago with underlying h/o substance abuse maintained on methadone and GERD. He has been well controlled on Breo 200 mcg, denying at cough, wheezing or chest tightness. He does continue to report dyspnea on exertion however significantly less. He reports recent ED evaluation for dental pain and has been on multiple courses of clindamyin. He has an appt through [facility] for dental extraction of multiple teeth. He attributes his overall feeling of being unwell to dental infection. Since being treated he feels more motivated to improve his health. Of note, he was started on CPAP therapy through [facility], and DME is [facility]. He reports difficulty adjusting to masks and compliance due to dental infection. He is motivated to be compliant once his dental surgery is complete. FOR[facility]LY [facility] Medical History Polysubstance abuse No known health problems Social History Alcohol intake: former Patient Tobacco Use Status: Former Tobacco user Substance Use Type: Marijuana Review of Systems Const Denies chills, Denies fever(s), Denies headache(s) and Denies night sweats Eyes Denies dry eyes, Denies irritation and Denies itchy eyes ENT Reports Normal hearing present, Denies headache(s), Denies nasal congestion, Denies nasal discharge and Denies sore throat Card Denies chest pain, Denies chest pain at rest, Denies chest pain with activity, Denies claudication, Denies leg edema, Denies orthopnea and Denies paroxysmal nocturnal dyspnea Resp Denies chest congestion, Denies excessive phlegm production, Denies pain on inspiration, Denies pain with cough and Denies stridor Musc Denies myalgias Neuro Reports Normal hearing present and Denies headache(s) Nnamdi/Lymph Denies lymphadenopathy Aller/Immun Denies itchy eyes and Denies seasonal rhinorrhea Physical Exam Vital Signs: Last Vital Signs Pulse 78 12/27/23 09:26 BP 140/88 H 12/27/23 09:26 Pulse Ox 93 12/27/23 09:26 Oxygen Delivery Method Room Air 12/27/23 09:26 BMI result Body Mass Index 44.9 Const General: cooperative, no acute distress, well developed and alert Nutritional Appearance: obese Orientation/consciousness: patient oriented x3 Limitations: no limitations HEENT Head: Yes normal to inspection, Yes normocephalic and Yes atraumatic Ears: hearing grossly normal bilaterally and external ears normal Eyes General: appearance normal, both eyes and all related structures Eyelids: Yes eyelids normal Sclerae: sclerae normal EOM: EOMs intact bilaterally Neck Neck: Yes normal visual inspection and Yes no lymphadenopathy Lymphatic: no lymphadenopathy noted Chest Chest palpation & inspection: normal inspection of the chest Resp Effort & Inspection: normal respiratory effort, able to speak in complete sentences, no audible wheezes, no stridor, not tachypneic, no tripod positioning and no use of accessory muscles Auscultation: clear to auscultation bilaterally Cardio Jugular venous distension: no JVD Rate: regular rate Rhythm: regular rhythm Skin Other: warm, dry General skin exam: no rashes or lesions noted Neuro General: patient oriented x3 Cranial nerves: Yes Normal hearing present Cognition (Neuro): normal cognition Gait exam (Neuro): Normal gait present Extrem General: Yes normal to inspection, Yes capillary refill normal, Yes no clubbing, cyanosis or edema and Yes no pedal edema Psych Appearance: grossly normal and well kempt Mental Status: mental status grossly normal Speech and movement: Normal speech and movement present and Clear speech present Affect: Anxious affect present Attitude: cooperative Thought process: Normal thought process present Thought content: Normal thought content present Insight: Fair insight present (Psych) Judgement: Fair judgement present (Psych) Results Reviewed Results Reviewed: [address] [address] [address] Scan Report Signed Patient: Yaniv Gutierrez MR#: [id number] : 1985 Acct:[id number] Age/Sex: 38 / M ADM Date: 12/17/23 Loc: HO.CT Attending Dr: Samantha Davis NP Ordering Physician: Samantha Davis NP Date of Service: 12/17/23 Procedure(s): CT chest wo IV con Accession Number(s): [id number] cc: Roma Bender [employer]UNTER; Samantha Davis NP~ EXAMINATION: CT CHEST WITHOUT CONTRAST CLINICAL INFORMATION: Pulmonary nodules COMPARISON: September 12, 2023 TECHNIQUE: Multidetector volumetric CT imaging of the chest was done. Axial MIP volume rendering provided. Sagittal and coronal reformatted images were obtained. This CT examination was performed using dose optimization techniques as appropriate, variously including the following: *Automated exposure control *Adjustment of mA and/or kV according to patient size (this includes techniques or standardized protocols for targeted exams where dose is matched to indication/reason for exam; i.e. extremities or head) *Use of iterative reconstruction technique DLP: 278 mGy-cm FINDINGS: PRODUCTION EXPERT: Unremarkable LUNGS: There is stable 0.4 cm nodule seen in the left lower lobe adjacent to fissure . There is mosaic attenuation of lungs and linear banding in left lower lobe MEDIASTINUM: The mediastinum is normal. CORONARY ARTERY CALCIFICATION: None visualized on this study. PLEURA: There is no pleural effusion. No pleural mass or thickening. AXILLA: No lymphadenopathy. UPPER ABDOMEN: There is low-attenuation of the liver due to hepatic steatosis and mild splenomegaly. OSSEOUS STRUCTURES: Unremarkable. CT/CT chest wo IV con IMPRESSION: 1. Stable 0.4 cm nodule in the left lower lobe. 2. Mosaic attenuation of lungs linear banding most likely due to airway disease/COPD. 3. Hepatic steatosis and mild splenomegaly. Fleischner guidelines were followed. Electronically signed by: Lionel Hudson MD 12/24/2023 09:28 AM EDT Dictated By: Lionel Hudson MD Signed By: <Electronically signed by Lionel Hudson MD in OV> 12/24/23 0928 DD/ 1344 TD/TT: 12/17/23 1409 [employer] Network Planner: Assessment & Plan Assessment & Plan (1) Asthma: Code(s): J45.909 - Unspecified asthma, uncomplicated Category: Medical (2) Dyspnea on exertion: Code(s): R06.09 - Other forms of dyspnea Category: Medical Plan Overall Yaniv reports good control of respiratory symptoms with Breo 200 mcg, advised to continue. Reviewed chest CT which revealed stable LLL 4 mm nodule. There is note of hepatomegaly which he is under the care of GI. He is established with [facility] sleep and [facility] CPAP therapy however patient has had issues with the mask as well as recent dental infection. He is motivated to use. At the last visit, ENT referral entered for significant issues due to deviated septum related to excessive cocaine abuse in the past. Order has been entered but yet to be scheduled. Information given to patient to schedule appt. All questions were answered and patient is in agreement of plan. Will follow- up in three months or sooner if needed. Coding Level of Care Code Est Pt Level 4 (70113) Diagnoses Asthma J45.909 Dyspnea on exertion R06.09
== END 2023-12-27 10:06 | disposition home or self-care (01) ==
PROVIDERS: PCP Nurse Practitioner Family; Visit Provider Nurse Practitioner Family
DX: J45.909 Unspecified asthma, uncomplicated (principal); R06.09 Other forms of dyspnea
CPT/HCPCS: 99214

== ENCOUNTER → 2023-12-27 09:23 | Outpatient (BNVA) | payer MEDICAID, SELFPAY | PROVIDERS: PCP Nurse Practitioner Family; Visit Provider Nurse Practitioner Family | DX: J45.909 Unspecified asthma, uncomplicated (principal); R06.09 Other forms of dyspnea | CPT/HCPCS: 99212 ==

== ENCOUNTER 2024-01-05 18:17 | Emergency (ER) | payer MEDICAID, SELFPAY ==
--- NOTE | 2024-01-05 18:32 | ED.ABDPAIN ---
HPI - Abdominal Pain General Chief Complaint: Abdominal Pain Stated Complaint: abd pain Time Seen by Provider: 01/05/24 18:31 Source: patient Mode of arrival: ambulatory Limitations: no limitations History of Present Illness ED Provider: karime LORENZO narrative: Patient is 38-year-old with history of polysubstance abuse on methadone, asthma, chronic abdominal pain/cyclic vomiting syndrome with history of fatty liver comes here for similar complaints at this time vomiting since yesterday with diffuse abdominal denied any substance abuse recently Related Data Home Medications ?Medication ?Instructions ?Recorded ?Confirmed prazosin 5 mg capsule 5 mg PO BEDTIME 03/19/23 albuterol sulfate 90 mcg/actuation 2 puff inhalation Q4H PRN wheezing 09/02/23 aerosol inhaler (Ventolin HFA) aspirin 81 mg tablet,delayed 81 mg PO DAILY 09/02/23 release bupropion HCl 150 mg 24 hr tablet, 150 mg PO QAM 09/02/23 extended release mirtazapine 15 mg tablet 15 mg PO BEDTIME 09/02/23 quetiapine 50 mg tablet 50 mg PO BID 09/02/23 ferrous gluconate 324 mg (38 mg 324 mg PO DAILY 11/15/23 iron) tablet Previous Rx's ?Medication ?Instructions ?Recorded famotidine 40 mg tablet 40 mg PO BEDTIME 90 days #90 tabs 06/28/23 esomeprazole magnesium 40 mg 40 mg PO DAILY #30 caps 09/02/23 capsule,delayed release (Nexium) polyethylene glycol 3350 17 17 g PO DAILY #510 grams 10/15/23 gram/dose oral powder (Miralax) sennosides 8.6 mg tablet (Natural 17.2 mg (2 x 8.6 mg) PO BEDTIME 10/25/23 Senna Laxative) constipation #180 tabs clindamycin HCl 300 mg capsule 300 mg PO TID #30 caps 11/21/23 ondansetron 4 mg disintegrating 4 mg PO Q8H PRN nausea and 11/21/23 tablet vomiting #12 tabs sucralfate 1 gram tablet 1 g PO BEDTIME #30 tabs 11/24/23 fluticasone furoate 200 1 inh inhalation DAILY #60 ea 12/09/23 mcg-vilanterol 25 mcg/dose inhalation powder (Breo Ellipta) dicyclomine 20 mg tablet 20 mg PO TID #20 tabs 01/05/24 ondansetron 4 mg disintegrating 4 mg PO Q6-8H PRN nausea and 01/05/24 tablet vomiting #14 tabs Allergies Allergy/AdvReac Type Severity Reaction Status Date / Time penicillin V Allergy Unknown Unknown Verified 01/05/24 19:03 Penicillins [PENICILLINS] Allergy Unknown RASH Verified 01/05/24 19:03 penicillin Allergy Unknown Unknown Uncoded 01/05/24 19:03 Review of Systems Review of Systems Yes all other systems are reviewed and are negative [facility] Past Medical History Medical History Polysubstance abuse No known health problems Social History Social History Alcohol intake: former Patient Tobacco Use Status: Former Tobacco user Smoked in Last 30 Days: No Use of substances other than those prescribed or required for medical reasons: Yes Substance Use Type: Marijuana Substance Use Type Other:: methadone Substance Use Frequency: Daily Advance Directives: No Advance Directives Information Provided: No Do you have a plan to hurt others: No Plan Physical Exam ED Vital Signs: Vital Signs - 24 hr 01/05/24 19:00 01/05/24 20:00 01/05/24 22:49 Temperature 100 F 100 F 100 F Pulse Rate 97 84 84 Respiratory Rate 22 H 19 19 Blood Pressure 131/83 128/88 128/88 Pulse Oximetry 98 98 98 Oxygen Delivery Method Room Air Room Air Room Air BMI result Body Mass Index 43.8 Appearance: Alert. Oriented X3. Nauseated Eyes: No pallor or icterus ENT: Pharynx normal. Oral Mucosa moist Neck: Normal inspection. Neck supple. CVS: Normal heart rate and rhythm. Pulses normal. Respiratory: No respiratory distress. Equal air entry bilateral, no wheezing/rales/rhonchi Abdomen: Soft and mild epigastric tenderness. Bowel sounds are present, no mass palpable, no CVA tenderness Skin: Skin warm and dry. Normal skin color. Normal skin turgor. Extremities: No lower extremity edema. No calf tenderness Neuro: Oriented X 3. No motor deficit. No sensory deficit.No cerebellar signs , cranial nerves II-XII intact Medical Decision Making Medical Decision Making MDM Narrative: Patient with cyclic vomiting syndrome/cannabis induced vomiting responded to Compazine and Ativan slept in the ER and had p.o. fluids without significant problems will discharge patient home Differential Diagnosis Differential Diagnoses: The differential diagnosis associated with the presentation includes Lab Data 01/05/24 19:15 01/05/24 19:15 Labs: Lab Results 01/05/24 01/05/24 Range/Units 19:15 Unknown WBC 11.8 H (4.8-10.8) X10*3/uL RBC 4.39 L (4.60-5.80) X10*6/uL Hgb 11.4 L (14.0-18.0) g/dl Hct 35.6 L (42.0-52.0) % MCV 81.1 (80.0-98.0) fL MCH 26.0 L (27.0-33.0) pg MCHC 32.0 (31.0-36.0) g/dl RDW 14.5 (11.0-16.0) % Plt Count 258 (160-400) X10*3/uL MPV 8.9 L (9.4-12.4) fL Immature Gran % (Auto) 0.6 H (0.0-0.4) % Neut % (Auto) 86.9 H (45-73) % Lymph % (Auto) 5.6 L (20-40) % Valley % (Auto) 5.7 (2-11) % Eos % (Auto) 0.9 (0-4) % Baso % (Auto) 0.3 (0-2) % Lymph # (Auto) 0.7 L (1.2-4.9) X10*3/uL Valley # (Auto) 0.7 (0.1-1.2) X10*3/uL Eos # (Auto) 0.1 (0.0-0.4) X10*3/uL Baso # (Auto) 0.0 (0.0-0.2) X10*3/uL Abs Immat Gran (auto) 0.07 H (0.00-0.03) X10*3/uL Absolute Neuts (auto) 10.3 H (2.0-8.3) x10*3/uL Absolute Nucleated RBC 0.000 (0.0-0.012) X10*3/uL Nucleated RBC % (auto) 0.0 (0.0-0.2) /100WBC Sodium 137 (135-145) mmol/L Potassium 4.0 (3.3-5.1) mmol/L Chloride 106 (96-108) mmol/L Carbon Dioxide 23 (22-29) mmol/L Anion Gap 12 (12-20) BUN 9 (9-16) mg/dL Creatinine 0.84 (0.5-1.4) mg/dL Estim Creat Clear Calc 155.5 Estimated GFR > 60 Random Glucose 131 H (60-115) mg/dL Calcium 8.5 D (8.4-10.2) mg/dL Total Bilirubin 0.5 (0.0-1.0) mg/dL AST 16 (5-37) U/L ALT 17 (0-40) U/L Alkaline Phosphatase 91 (39-117) U/L Total Protein 7.0 (6.5-8.0) g/dL Albumin 3.6 (3.5-5.0) g/dL Lipase 12 (8-78) U/L Urine Color Yellow Urine Appearance Clear Urine pH >= 9.0 (5.0-9.0) Ur Specific [place] 1.015 (1.005-1.025) Urine Protein Negative (Neg-Trace) mg/dL Urine Glucose (UA) Negative (Negative) mg/dL Urine Ketones Negative (Negative) mg/dL Urine Blood Negative (Negative) Urine Nitrite Negative (Negative) Ur Leukocyte Esterase Negative (Negative) Urine Opiates Screen Not Detected (Not Detect) Ur Buprenorphine Scrn Not Detected (Not Detect) ng/mL Ur Oxycodone Screen Not Detected (Not Detect) ng/mL Urine Methadone Screen Not Detected (Not Detect) ng/mL Urine Fentanyl Screen Not Detected (Not Detect) Ur Barbiturates Screen Not Detected (Not Detect) Ur Phencyclidine Scrn Not Detected (Not Detect) Ur Amphetamines Screen Not Detected (Not Detect) U Benzodiazepines Scrn Not Detected (Not Detect) Urine Cocaine Screen Not Detected (Not Detect) U Marijuana (THC) Screen POSITIVE H (Not Detect) Medications Administered Discontinued Medications Generic Name Dose Route Start Last Admin Trade Name Freq PRN Reason Stop Dose Admin Sodium Chloride 1,000 mls @ 999 mls/hr 01/05/24 18:40 01/05/24 20:30 Ns IV 01/05/24 19:40 Infused .Q1H1M ONE Infusion Lorazepam 2 mg 01/05/24 18:40 01/05/24 18:56 Lorazepam 2 Mg/Ml Vial IVPUSH 01/05/24 18:41 2 mg ONCE ONE Administration Prochlorperazine Edisylate 10 mg 01/05/24 18:40 01/05/24 18:55 Prochlorperazine Edisylate 10 Mg/2 Ml Vial IVPUSH 01/05/24 18:41 10 mg ONCE ONE Administration Discharge Plan Discharge Clinical Impression: Cyclic vomiting syndrome, Cannabis abuse with cannabis-induced disorder Patient Disposition: Home, Self-Care Instructions: Cannabis Abuse (ED), Cyclic Vomiting Syndrome (ED) Additional Instructions: Stop smoking cannabis Take medication as prescribed abdominal cramps and vomiting Prescriptions: New dicyclomine 20 mg tablet 20 mg PO TID Qty: 20 0RF ondansetron 4 mg tablet,disintegrating 4 mg PO Q6-8H PRN (Reason: nausea and vomiting) Qty: 14 0RF No Action famotidine 40 mg tablet 40 mg PO BEDTIME 90 Days Qty: 90 3RF sennosides [Natural Senna Laxative] 8.6 mg tablet 17.2 mg PO BEDTIME Qty: 180 1RF sucralfate 1 gram tablet 1 g PO BEDTIME Qty: 30 1RF fluticasone furoate-vilanterol [Breo Ellipta] 200-25 mcg/dose blister with device 1 inh inhalation DAILY Qty: 60 2RF ondansetron 4 mg tablet,disintegrating 4 mg PO Q8H PRN (Reason: nausea and vomiting) Qty: 12 0RF clindamycin HCl 300 mg capsule 300 mg PO TID Qty: 30 0RF quetiapine 50 mg tablet 50 mg PO BID aspirin 81 mg tablet,delayed release (DR/EC) 81 mg PO DAILY albuterol sulfate [Ventolin HFA] 90 mcg/actuation HFA aerosol inhaler 2 puff inhalation Q4H PRN (Reason: wheezing) bupropion HCl 150 mg tablet extended release 24 hr 150 mg PO QAM mirtazapine 15 mg tablet 15 mg PO BEDTIME esomeprazole magnesium [Nexium] 40 mg capsule,delayed release(DR/EC) 40 mg PO DAILY Qty: 30 5RF prazosin 5 mg capsule 5 mg PO BEDTIME polyethylene glycol 3350 [Miralax] 17 gram/dose powder 17 g PO DAILY Qty: 510 2RF ferrous gluconate 324 mg (38 mg iron) tablet 324 mg PO DAILY Interventions: ED Discharge Assessment Last Done: 01/05/24 22:49 Discharge Date/Time: 01/05/24 22:49 Print Language: Vincentian
[2024-01-05] MEDS: Prochlorperazine Edisylate 10 MG/2 ML VIAL IVPUSH (18:55)
[2024-01-05] MEDS: 0.9 % Sodium Chloride 1,000 ML 999 ML IV (18:55)
[2024-01-05] MEDS: LORazepam 2 MG/ML VIAL IVPUSH (18:56)
[2024-01-05 18:59] LABS: Appearance Urine Clear; Color Urine Yellow; Glucose Urine UA Negative (Negative); Leukocyte Esterase Urine Negative (Negative); Nitrite Urine Negative (Negative); PH >= 9.0 (5.0-9.0); Specific Gravity - Urine 1.015 (1.005-1.025); Urine Blood Negative (Negative); Urine Ketones Negative (Negative); Urine Protein Negative (Neg-Trace)
[2024-01-05 19:00] VITALS: BP 131/83; PULSE 97; RESP 22; TEMP 37.7; O2SAT 98; BMI 43.8
--- NOTE | 2024-01-05 19:08 | PC.NURSE ---
patient from home via EMS, complaining of abdominal pain and nausea and vomiting at least 10 times today, per EMS patient has been seen in this ED multiple times over the past year for an ?infection and has been prescribed abx on and off, states he recently finished his most recent course of antibiotics but his pain started back up today, complaining of abdominal pain, constipation, difficulty urinating, fevers, chills, and sore throat. patient presents pale and diaphoretic, noted to have low grade temp of 100. VS otherwise stable. patient complains of sharp right sided abdominal pain, abdomen is soft and tender to palpation, bowel sounds present upon auscultation. appears pale and diaphoretic, PERRLA with pinpoint pupils, patient provided urine sample, sent to lab, patient with 20g IV in right forearm and 18g IV placed in Left AC, IV fluids and medications ordered by MD, medicated per JUN, patient difficult stick for blood work, this RN attempted x2 and lock technician attempted x1, will attempt to get blood work at a later time. patient complaining of chills and pain in his abdomen, heaving but no vomit appreciated, awaiting blood work and further Eval. plan of care remains ongoing, report given to Efrem HACKETT
[2024-01-05 19:13] LABS: Amphetamine Screen Urine Not Detected (Not Detect); Barbiturates, Urine Not Detected (Not Detect); Benzodiazepines Screen Urine Not Detected (Not Detect); Buprenorphine Scr Not Detected (Not Detect); Cannabinoid Screen Urine POSITIVE (Not Detect); Cocaine Screen Urine Not Detected (Not Detect); Fentanyl, urine Not Detected (Not Detect); Methadone Screen, Urine Not Detected (Not Detect); Opiate Screen Urine Not Detected (Not Detect); Oxycodone Screen Urine Not Detected (Not Detect); Phencyclidine Screen Urine Not Detected (Not Detect)
[2024-01-05 19:19] LABS: MANUAL DIFF FLAG NO
[2024-01-05 19:21] LABS: Basophils Percent Auto 0.3 % (0-2); Eosinophils Absolute Auto 0.1 X10*3/uL (0.0-0.4); Eosinophils Percent Auto 0.9 % (0-4); Hematocrit 35.6 % (42.0-52.0); Hemoglobin 11.4 g/dl (14.0-18.0); Imm Gran Abs Auto 0.07 X10*3/uL (0.00-0.03); Imm Gran Pct Auto 0.6 % (0.0-0.4); Lymphocytes Absolute Auto 0.7 X10*3/uL (1.2-4.9); Lymphocytes Percent Auto 5.6 % (20-40); Mean Corpuscular Volume 81.1 fL (80.0-98.0); Mean Platelet Volume 8.9 fL (9.4-12.4); Monocytes Absolute Auto 0.7 X10*3/uL (0.1-1.2); Monocytes Percent Auto 5.7 % (2-11); Neutrophils Absolute Auto 10.3 x10*3/uL (2.0-8.3); Neutrophils Percent Auto 86.9 % (45-73); Platelet Count 258 X10*3/uL (160-400); Red Blood Count 4.39 X10*6/uL (4.60-5.80); Red Cell Distribution Width 14.5 % (11.0-16.0); White Blood Count 11.8 X10*3/uL (4.8-10.8)
[2024-01-05 19:34] LABS: Alanine Aminotransferase 17 U/L (0-40); Albumin Level 3.6 g/dL (3.5-5.0); Alkaline Phosphatase 91 U/L (39-117); Anion Gap 12 (12-20); Aspartate Amino Transferase 16 U/L (5-37); Bilirubin Total 0.5 mg/dL (0.0-1.0); Blood Urea Nitrogen 9 mg/dL (9-16); Calcium 8.5 mg/dL (8.4-10.2); Carbon Dioxide 23 mmol/L (22-29); Chloride 106 mmol/L (96-108); Creatinine Clr Calc Pharmacy 155.5; Estimated Glomerular Filt Rate > 60; Glucose Random 131 mg/dL (60-115); Lipase 12 U/L (8-78); Sodium 137 mmol/L (135-145)
[2024-01-05 20:00] VITALS: BP 128/88; PULSE 84; RESP 19; TEMP 37.7; O2SAT 98
--- NOTE | 2024-01-05 22:22 | PC.NURSE ---
Pt currently tolerating PO intake in small amounts
[2024-01-05 22:49] VITALS: BP 128/88; PULSE 84; RESP 19; TEMP 37.7; O2SAT 98
== END 2024-01-05 22:49 | disposition home or self-care (01) ==
PROVIDERS: Emergency Provider Internal Medicine
DX: F12.188 Cannabis abuse with other cannabis-induced disorder (principal); R11.15 Cyclical vomiting syndrome unrelated to migraine; F19.10 Other psychoactive substance abuse, uncomplicated; Z87.891 Personal history of nicotine dependence; Z79.82 Long term (current) use of aspirin; Z79.899 Other long term (current) drug therapy
CPT/HCPCS: 36415; 80053; 80307; 81003; 83690; 85025; 96361; 96374; 96375; 99284; 99285; J0737; J2060

== ENCOUNTER 2024-01-14 10:31 | Outpatient (REF) | payer MEDICAID, SELFPAY ==
[2024-01-14 12:55] LABS: C Reactive Protein 2.51 mg/dL (< or = 0.50)
[2024-01-14 13:13] LABS: TSH reflex Free T4 2.46 uIU/mL (0.32-4.0)
[2024-01-17 11:38] LABS: Ceruloplasmin 31 mg/dL (14-30)
[2024-01-18 09:18] LABS: Alpha Fetoprotein 2.1 ng/mL (<6.1)
[2024-01-18 10:18] LABS: Mitochondrial Antibodies NEGATIVE (NEGATIVE)
[2024-01-19 14:12] LABS: Smooth Muscle Antibody <20 U (<20)
== END 2024-01-14 10:32 | disposition home or self-care (01) ==
LOC: HO.LAB 10:31
PROVIDERS: PCP Nurse Practitioner Family; Visit Provider Nurse Practitioner Family
DX: K21.9 Gastro-esophageal reflux disease without esophagitis (principal); R10.13 Epigastric pain; K59.01 Slow transit constipation; K44.9 Diaphragmatic hernia without obstruction or gangrene; K58.9 Irritable bowel syndrome, unspecified; R79.89 Other specified abnormal findings of blood chemistry; R10.9 Unspecified abdominal pain
CPT/HCPCS: 36415; 82105; 82390; 84443; 86015; 86140; 86381; 99212

== ENCOUNTER 2024-01-14 10:31 | Outpatient (AMB) | payer MEDICAID, SELFPAY ==
[2024-01-14 10:40] VITALS: BP 122/66; PULSE 98; O2SAT 93; BMI 44.0
--- NOTE | 2024-01-14 10:40 | A.OFFVIS_ITS ---
Vital Signs 01/14/24 10:40 Height 5 ft 7 in Weight 280 lb 13.903 oz BMI 44.0 BP 122/66 Blood Pressure Location Lt brachial Position Sitting Pulse 98 Pulse Source Pulse Oximeter Pulse Oximetry (%) 93 Oxygen Delivery Method Room Air Intake Visit Reasons: 3 month follow up GERD, constipation Intake Note: Yaniv presents in office today for a scheduled 3 mos FUV. CC: Pt was seen at [facility] on 01/05/2024 for ABD pain. Pt was also seen for similar cc on 11/21/2023. Pt had liver US performed as of 11/19/2023. Pt was rx'd miralax at their last visit. Pt reports having repeated episodes of abd pain. Pt did receive medication from the ED which he states has been helping with the cramping. Mild to moderate improvement. Pt reports that his PCP did review the US and any additional imaging performed recently. Hat Checker Required: No Allergies Penicillins [PENICILLINS] Allergy (Unknown, Verified 01/14/24 10:43) RASH HPI HPI 3 month follow up GERD, constipation: Details: LAST VISIT GERD (gastroesophageal reflux disease) Epigastric abdominal pain Constipation Hiatal hernia Plan Continue PPI and H2 ligia. Continue avoiding dietary triggers and late night snacking. Small meals more often. Liver fibrosis panel ordered and ultrasound with elastography to stage liver disease. Increase fluid intake and activity to promote better bowel motility. Continue senna, will add MiraLax. Follow-up in th e office in 3 months, sooner on as needed basis. Patient is agreeable to this plan and verbalizes understanding of instructions. He was given the opportunity to ask questions and all questions answered. ? Thank you for allowing me to participate in his care Orders Orders Liver Fibrosis Pnl 10/15/23 R74.8 US abdomen younger w elastography 10/15/23 R74.01 Medications New polyethylene glycol 3350 (Miralax) 17 grams PO DAILY 510 grams 2RF TODAY'S VISIT Patient is here today for follow-up and to discuss lab results and liver elastography results. Patient reports that he is been doing better. He wants to lose weight, however he is unable to do it on his own. Patient continues to have abdominal bloating. Reports that he is moving his bowels better now that he is taking MiraLax. Patient is taking Nexium in the morning and famotidine at bedtime. Patient was unable to take sucralfate as he takes his night time medication and was afraid of interaction. Patient was seen by pulmonology. Sleep study was done and patient was found to have a sleep apnea, however he states that he is unable to keep the CPAP machine as he feels like he is suffocating. Ultrasound results and lab results discussed with patient. Hepatic steatosis, most likely nonalcoholic fatty liver. Patient reports occasional dyspepsia without dysphagia or odynophagia. Patient denies melena, hematochezia [facility] Medical History Polysubstance abuse No known health problems Social History Alcohol intake: former Patient Tobacco Use Status: Former Tobacco user Substance Use Type: Marijuana Review of Systems Const Denies weight gain and Denies weight loss ENT Reports no additional complaints, Denies dysphagia and Denies odynophagia Card Reports no additional complaints Resp Reports no additional complaints GI Reports abdominal pain (Epigastric pain), Denies belching, Denies melena, Reports bloating, Denies change in bowel habits, Reports constipation, Denies dysphagia, Denies excessive flatus, Reports dyspepsia (Occasional), Denies heartburn, Denies diarrhea, Denies loose stools, Reports nausea, Denies odynophagia and Denies vomiting Reports no additional complaints Musc Reports no additional complaints Neuro Reports no additional complaints Psych Reports no additional complaints Endo Reports no additional complaints Physical Exam Vital Signs: Last Vital Signs Pulse 98 01/14/24 10:40 BP 122/66 01/14/24 10:40 Pulse Ox 93 01/14/24 10:40 Oxygen Delivery Method Room Air 01/14/24 10:40 BMI result Body Mass Index 44.0 Const General: cooperative, healthy appearing, comfortable and no acute distress Nutritional Appearance: obese Orientation/consciousness: patient oriented x3 Neck Neck: Yes normal visual inspection, Yes full ROM and Yes trachea midline Resp Effort & Inspection: normal respiratory effort, able to speak in complete sentences, no tracheal deviation and symmetric chest movement Auscultation: clear to auscultation bilaterally Cardio Rate: regular rate GI Inspection: Yes normal to inspection and No distended Palpation (GI): Soft to palpation, not firm, nontender and No hepatosplenomegaly present Auscultation: normal bowel sounds General: Yes no CVA tenderness Back/Spine/Pelvis Back: no CVA tenderness Skin General skin exam: elasticity normal, turgor normal and dry skin Neuro General: patient oriented x3 Psych Appearance: grossly normal Mental Status: mental status grossly normal Assessment & Plan Assessment & Plan (1) GERD (gastroesophageal reflux disease): Code(s): K21.9 - Gastro-esophageal reflux disease without esophagitis Qualifiers: Esophagitis presence: esophagitis presence not specified Qualified Code(s): K21.9 - Gastro-esophageal reflux disease without esophagitis (2) Epigastric abdominal pain: Code(s): R10.13 - Epigastric pain (3) Constipation: Code(s): K59.00 - Constipation, unspecified Qualifiers: Constipation type: slow transit constipation Qualified Code(s): K59.01 - Slow transit constipation (4) Hiatal hernia: Code(s): K44.9 - Diaphragmatic hernia without obstruction or gangrene Plan Increase fluid intake and activity to promote better bowel motility. Patient will continue taking Nexium in the morning and famotidine at bedtime. Patient was encouraged to eat small meals and more often. Patient will try to eat food that is high in protein, low-salt low carbs. Pancreatic atrophy seen on CT scan. Will send patient to rule out pancreatic insufficiency. We will repeat neither testing to evaluate pancreas and liver with possible MRI next visit. Overall patient is doing much better. He is committed to losing weight and working on eating better. Discussed with patient also low FODMAP diet as he re ports to be bloated frequently when eating certain food. I do not recommend GLP1 as patient does have a pancreatic insufficiency. Patient will try to exercise daily now that he is doing better with Breo Ellipta and is able to tolerate more exercise. I will see patient in 2-3 months, sooner on as needed basis. He is agreeable to this plan and verbalizes understanding of instructions. He was given the opportunity to ask questions and all questions answered. Spent time with patient educating him about diet, exercise. We discuss low FODMAP diet list of food recommended as well as list of food to provide was given to patient. Thank you for allowing me to participate in his care Orders: Orders Alpha Fetoprotein Today R79.89 - Other specified abnormal findings of blood chemistry Ceruloplasmin Today R79.89 - Other specified abnormal findings of blood c hemistry Pancreatic Elastase-1 Today R10.9 - Unspecified abdominal pain Smooth Muscle Antibody Today R79.89 - Other specified abnormal findings of blood chemistry C Reactive Protein Today K58.9 - Irritable bowel syndrome, unspecified TSH reflex Free T4 Today K59.00 - Constipation, unspecified Mitochondrial Antibody Today R79.89 - Other specified abnormal findings of blood chemistry Medications: Refilled esomeprazole magnesium (Nexium) 40 mg PO DAILY 30 caps 5RF K21.9 - Gastro- esophageal reflux disease without esophagitis famotidine 40 mg PO BEDTIME 90 days 90 tabs 3RF K21.9 - Gastro-esophageal reflux disease without esophagitis sennosides (Natural Senna Laxative) 17.2 mg (2 x 8.6 mg) PO BEDTIME 180 tabs 1RF constipation K59.00 - Constipation, unspecified Discontinued dicyclomine Discontinued Reason: Doctor's Order 20 mg PO TID 20 tabs 0RF sucralfate Discontinued Reason: Doctor's Order 1 g PO BEDTIME 30 tabs 1RF R19.7 - Diarrhea, unspecified Coding Level of Care Code Est Pt Level 4 (53332) Complex EM visit Add On G2211 Diagnoses Gastroesophageal reflux disease, unspecified whether esophagitis present K21.9 Esophagitis presence: esophagitis presence not specified Epigastric abdominal pain R10.13 Slow transit constipation K59.01 Constipation type: slow transit constipation Hiatal hernia K44.9 Time Spent (min) 40 Comment 25 minutes spent with patient and additional 15 minutes spent reviewing his records
== END 2024-01-14 11:24 | disposition home or self-care (01) ==
PROVIDERS: PCP Nurse Practitioner Family; Visit Provider Nurse Practitioner Family
DX: K21.9 Gastro-esophageal reflux disease without esophagitis (principal); R10.13 Epigastric pain; K59.01 Slow transit constipation; K44.9 Diaphragmatic hernia without obstruction or gangrene
CPT/HCPCS: 99214

== ENCOUNTER 2024-03-11 08:47 | Inpatient (IN) | payer MEDICAID, SELFPAY ==
[2024-03-11] VITALS (9 sets, daily range): BP systolic 115–131; BP diastolic 55–81; PULSE 76–90; RESP 16–20; TEMP 36.2–37.3; O2SAT 90–98; BMI 40.7; BMI 41.8
--- NOTE | ~2024-03-11 | XR_ITS ---
EXAMINATION: XR CHEST CLINICAL INFORMATION: Left pleuritic chest pain COMPARISON: Chest x-ray on 11/21/2023 TECHNIQUE: Frontal view of the chest was obtained. FINDINGS: The cardiac silhouette is normal. There is mild diffuse bronchial wall thickening. There are no areas of consolidation. There are no pleural effusions or pneumothoraces. The bones and soft tissues are unremarkable for the patient's age. XR/XR chest 1V IMPRESSION: Bronchial wall thickening may be infectious and/or inflammatory in etiology. Electronically signed by: Kacie Roman MD 03/11/2024 12:14 PM [facility]
--- NOTE | ~2024-03-11 | FL_ITS ---
EXAMINATION: Modified Barium Swallow CLINICAL INFORMATION: Dysphagia. COMPARISON: None. TECHNIQUE: Modified barium swallow was performed under lateral fluoroscopy with patient in standing position. Barium mixed with solids and liquids of different consistencies was administered by the speech pathologist. Examination was recorded in the fluoroscopy suite. FINDINGS: There is trace laryngeal penetration with thin barium. No aspiration was observed. FLUOROSCOPY TIME: 58 seconds Number of Spot Images: N/A DOSE AREA PRODUCT: 941.6 uGy-m2 (microgray-meter squared) FL/FL Modified Barium Swallow IMPRESSION: 1. Trace laryngeal penetration with thin barium. No subglottic aspiration was observed. Refer to the speech therapy report for further clarification This procedure was performed by Lazarus Petty PA-C, and supervised by Dr. Wilder Electronically signed by: Compa Wilder MD 03/14/2024 02:43 PM [facility]
--- NOTE | ~2024-03-11 | CT_ITS ---
EXAMINATION: CT ANGIOGRAM OF THE CHEST WITH AND WITHOUT CONTRAST (CT PULMONARY ANGIOGRAM FOR PE) CLINICAL INFORMATION: Left pleuritic chest pain elevated D-dimer R/O PE COMPARISON: CT chest without contrast December 17, 2023 TECHNIQUE: Prior to contrast administration, noncontrast localization images were obtained. Subsequently, multidetector volumetric imaging was performed from the thoracic inlet to below the diaphragms following the administration of 100 mL Omnipaque 350 intravenous contrast. No contrast reaction reported. Sagittal, coronal, and MIP oblique sagittal reformatted images were obtained on the CT workstation, uploaded to PACS, and reviewed. Total exam dose-length product 545 mGy-cm FINDINGS: QUALITY OF STUDY/CONTRAST BOLUS: Suboptimal. PULMONARY ARTERIES: No central or segmental pulmonary emboli. THORACIC AORTA: No aneurysm or dissection. LUNG: New masslike consolidation in the left upper lobe measuring 1.1 cm (6:26). Patchy opacities in the dependent portions of the left upper lobe, left lower lobe, and right lower lobe. Unchanged 4 mm nodule in the left lower lobe adjacent to the fissure. PLEURA: No pleural effusion or pneumothorax. MEDIASTINUM: Normal heart size. No pericardial effusion. No hilar or mediastinal lymphadenopathy. No evidence of septal bowing or right heart strain. CHEST WALL/AXILLA: No axillary or internal mammary lymphadenopathy. OSSEOUS STRUCTURES: No acute or suspicious osseous abnormality. UPPER ABDOMEN: Unremarkable. No reflux of contrast into the hepatic veins to suggest elevated right heart pressures. CT/CT angio chest PE protocol IMPRESSION: 1. No central or segmental pulmonary emboli. 2. New masslike consolidation in the left upper lobe measuring 1.1 cm. Patchy opacities in the dependent portions of the left upper lobe, left lower lobe, and right lower lobe. Findings are concerning for multifocal pneumonia or aspiration. Recommend short interval follow up for the left upper lobe lesion to ensure no underlying mass. VTE: negative. Electronically signed by: Rajinder Mosquera MD 03/11/2024 02:48 PM [facility]
--- NOTE | 2024-03-11 08:54 | ECG_ITS ---
Test Reason : n/v Blood Pressure : / mmHG Vent. Rate : 093 BPM Atrial Rate : 093 BPM P-R Int : 142 ms QRS Dur : 098 ms QT Int : 378 ms P-R-T Axes : 026 -02 013 degrees QTc Int : 469 ms Poor data quality Normal sinus rhythm Nonspecific T wave changes Abnormal ECG When compared with ECG of 06-FEB-2022 15:44, No significant change was found Referred By: Generic ED Physician Electronically Signed By:Jamil Cortez
[2024-03-11 09:15] LABS: Basophils Absolute Auto 0.1 X10*3/uL (0.0-0.2); Basophils Percent Auto 0.3 % (0-2); Eosinophils Absolute Auto 0.3 X10*3/uL (0.0-0.4); Hematocrit 35.7 % (42.0-52.0); Hemoglobin 11.6 g/dl (14.0-18.0); Imm Gran Abs Auto 0.07 X10*3/uL (0.00-0.03); Imm Gran Pct Auto 0.4 % (0.0-0.4); Lymphocytes Percent Auto 6.5 % (20-40); MANUAL DIFF FLAG NO; Mean Corpuscular HGB Conc 32.5 g/dl (31.0-36.0); Mean Corpuscular Hemoglobin 26.2 pg (27.0-33.0); Mean Corpuscular Volume 80.6 fL (80.0-98.0); Mean Platelet Volume 8.7 fL (9.4-12.4); Monocytes Percent Auto 6.1 % (2-11); Neutrophils Absolute Auto 13.5 x10*3/uL (2.0-8.3); Neutrophils Percent Auto 84.7 % (45-73); Platelet Count 258 X10*3/uL (160-400); Red Blood Count 4.43 X10*6/uL (4.60-5.80); Red Cell Distribution Width 14.3 % (11.0-16.0); White Blood Count 15.9 X10*3/uL (4.8-10.8)
--- NOTE | 2024-03-11 09:32 | PC.NURSE ---
patient states he feels like he food is coming out of his nose, patient state she used to do a lot of cocaine and thinks he has deviated septum.
[2024-03-11 09:36] LABS: Appearance Urine Clear; Color Urine Yellow; Glucose Urine UA Negative (Negative); Leukocyte Esterase Urine Negative (Negative); Nitrite Urine Negative (Negative); Specific Gravity - Urine 1.015 (1.005-1.025); Urine Blood Negative (Negative); Urine Ketones Negative (Negative); Urine Protein Negative (Neg-Trace)
[2024-03-11 09:37] LABS: Anion Gap 13 (12-20); Carbon Dioxide 25 mmol/L (22-29); Chloride 103 mmol/L (96-108); Potassium 3.9 mmol/L (3.3-5.1); Sodium 137 mmol/L (135-145)
--- NOTE | 2024-03-11 09:40 | ED.GENADULT ---
HPI - General Adult General Chief complaint: General Medical Stated complaint: CP NAUSEA VOMITING Time Seen by Provider: 03/11/24 09:36 Source: patient Mode of arrival: ambulatory Limitations: no limitations History of Present Illness ED Provider: Dr. Les Blanchard HPI narrative: 38-year-old male history of 20 pack year smoking, quit 2 years prior, substance use disorder on methadone, GERD, obstructive sleep apnea on CPAP who presents emergency department for evaluation of chest pain. Patient states that the chest pain started yesterday in the morning. He states the pain is a sharp pain which is worse with coughing. Pain is located in his left anterior chest and radiates to his left flank. He states that he did use intranasal cocaine and intranasal heroin 3 days prior. States that he has used injection heroin in the past but mainly he uses intranasal drugs. Patient had associated nausea and vomiting. Patient states that over the past year he was had episodes of diaphoresis not associated with pain. States that over the last 2 days he has had chills but no fever. He feels short of breath. He denied dark tarry stools or bloody stools. He denied frequency, urgency or dysuria Related Data Home Medications ?Medication ?Instructions ?Recorded ?Confirmed prazosin 5 mg capsule 5 mg PO BEDTIME 03/19/23 albuterol sulfate 90 mcg/actuation 2 puff inhalation Q4H PRN wheezing 09/02/23 aerosol inhaler (Ventolin HFA) aspirin 81 mg tablet,delayed 81 mg PO DAILY 09/02/23 release bupropion HCl 150 mg 24 hr tablet, 150 mg PO QAM 09/02/23 extended release mirtazapine 15 mg tablet 15 mg PO BEDTIME 09/02/23 quetiapine 50 mg tablet 50 mg PO BID 09/02/23 ferrous gluconate 324 mg (38 mg 324 mg PO DAILY 11/15/23 iron) tablet Previous Rx's ?Medication ?Instructions ?Recorded polyethylene glycol 3350 17 17 g PO DAILY #510 grams 10/15/23 gram/dose oral powder (Miralax) clindamycin HCl 300 mg capsule 300 mg PO TID #30 caps 11/21/23 fluticasone furoate 200 1 inh inhalation DAILY #60 ea 12/09/23 mcg-vilanterol 25 mcg/dose inhalation powder (Breo Ellipta) ondansetron 4 mg disintegrating 4 mg PO Q6-8H PRN nausea and 01/05/24 tablet vomiting #14 tabs esomeprazole magnesium 40 mg 40 mg PO DAILY #30 caps 01/14/24 capsule,delayed release (Nexium) famotidine 40 mg tablet 40 mg PO BEDTIME 90 days #90 tabs 01/14/24 sennosides 8.6 mg tablet (Natural 17.2 mg (2 x 8.6 mg) PO BEDTIME 01/14/24 Senna Laxative) constipation #180 tabs Allergies Allergy/AdvReac Type Severity Reaction Status Date / Time Penicillins [PENICILLINS] Allergy Unknown RASH Verified 03/11/24 09:01 Review of Systems Review of Systems: Yes all other systems are reviewed and are negative [facility] Past Medical History [facility] Narrative: Social history: The patient is a former smoker. He denies alcohol use. He does smoke marijuana. He was in a methadone program. He does admit to using intranasal cocaine and intranasal heroin 2 days prior. Medical History Polysubstance abuse No known health problems Social History Social History Alcohol intake: former Patient Tobacco Use Status: Former Tobacco user Substance Use Type: Marijuana Advance Directives: No Advance Directives Information Provided: No Do you have a plan to hurt others: No Plan Physical Exam ED Vital Signs: Vital Signs - 24 hr 03/11/24 08:55 03/11/24 12:07 03/11/24 13:07 Temperature 99.1 F 98.4 F 98.1 F Pulse Rate 90 78 89 Respiratory Rate 20 16 16 Blood Pressure 115/76 129/55 L 120/71 Pulse Oximetry 94 93 98 Oxygen Delivery Method Room Air Room Air Room Air 03/11/24 14:18 Temperature 97.8 F Pulse Rate 76 Respiratory Rate 16 Blood Pressure 120/68 Pulse Oximetry 97 Oxygen Delivery Method Room Air BMI result Body Mass Index 40.7 Vital signs were normal Exam: General: Awake, alert appears to be in distress secondary to his chest pain, he was diaphoretic but he states that he often gets diaphoretic in his not related to pain Head: Normocephalic, atraumatic EENT: PERRL, Lids normal, sclera normal, conjunctiva normal, nose normal , ears normal, throat without erythema or exudates Neck: Supple, no adenopathy Lung: breath sounds symmetric, no wheezing, rales or rhonchi Chest: symmetric movement, patient was tenderness palpation of his left anterior chest Heart: regular rate and rhythm, normal S1, S2 no murmurs or rubs Abdomen: soft, non-tender, nondistended, normal bowel sounds Back: no vertebral tenderness, no CVAT Extremities: no deformities, moves all extremities symmetrically Neuro: Awake, alert, oriented, normal speech, cranial nerves intact, moves all extremities symmetrically Psych: Pleasant, cooperative Medications Administered Discontinued Medications Generic Name Dose Route Start Last Admin Trade Name Kwakuq PRN Reason Stop Dose Admin Iohexol 100 ml 03/11/24 13:42 03/11/24 13:42 Iohexol 350 Mg/Ml 100 Ml Infus..Btl IV 03/11/24 13:43 100 ml ONCE ONE Administration Ketorolac Tromethamine 15 mg 03/11/24 10:45 03/11/24 11:22 Ketorolac Tromethamine 15 Mg/Ml Vial IVPUSH 03/11/24 10:46 15 mg ONCE STA Administration Lorazepam 1 mg 03/11/24 10:45 03/11/24 11:22 Lorazepam 2 Mg/Ml Vial IVPUSH 03/11/24 10:46 1 mg STAT STA Administration Medical Decision Making Medical Decision Making [facility] Narrative: 38-year-old male history of 20 pack year smoking, quit 2 years prior, substance use disorder on methadone, GERD, obstructive sleep apnea on CPAP who presents emergency department for evaluation left anterior chest pain radiating to the left flank associated with nausea, vomiting, chills, shortness of breath with symptoms starting yesterday morning. Patient admits to using intranasal cocaine and heroin 2 days prior. Vital signs were normal. Physical examination did reveal tenderness palpation in his left anterior chest wall and the patient was diaphoretic. Differential diagnosis: ?Includes but is not limited to myocardial infarction, myocardial ischemia, costochondritis, pulmonary embolism, anemia, electrolyte abnormalities Course: 12:44 My interpretation patient's laboratory evaluation as follows: WBCs elevated 15,900-she has had similar elevations in the past. Normocytic anemia with an H&H of 11.6 and 35.7-chronic. PTT was normal. D-dimer elevated 373. CMP was unremarkable except for an elevated AST of 76. Troponin was below detectable limits. Urinalysis was negative. COVID-19, influenza and RSV were negative. Chest x-ray revealed no focal infiltrates, radiologist did note bronchial wall thickening. Patient was treated with Toradol 15 mg IV and Ativan 1 mg IV with improvement of his pain. Given his elevated D-dimer in his pleuritic chest pain I did order a CT pulmonary angiogram PE protocol. 14:54 CT pulmonary angiogram did not reveal any pulmonary embolism but did reveal a masslike consolidation in the left upper lobe measuring 1.1 cm. Patchy opacities in the dependent portions of the left upper lobe, left lower lobe, and right lower lobe, which the radiologist felt could be consistent with aspiration pneumonia. This was an unexpected finding and I did order blood cultures x2, lactic acid, normal saline x1 L IV. The patient did tell me that he has been having trouble swallowing 4 years. He states that sometimes when he swallows and he was gets stuck and he then vomits and stuff comes out his nose. Patient was having frequent dental infections and he had all of his teeth extracted 2 weeks prior. He has been taking liquids and soft food but sometimes the soft food gets stuck in his throat as well. Given his penicillin allergy, I ordered ertapenem 1 g IV and vancomycin 2 g IV cover anaerobic organisms and possible MRSA. I did discuss the patient's presentation over tiger text with the covering hospitalist, Dr. Coughlin and the patient will be admitted for further treatment. Admission/Observation Consideration of admission/observation: Escalation of care including admission/observation considered (Yes) Lab Data MDM Lab Attestation statement: I reviewed the patient's lab results. 03/11/24 09:09 03/11/24 09:09 Labs: Lab Results 03/11/24 03/11/24 03/11/24 Range/Units 09:09 09:28 11:22 WBC 15.9 H (4.8-10.8) X10*3/uL RBC 4.43 L (4.60-5.80) X10*6/uL Hgb 11.6 L (14.0-18.0) g/dl Hct 35.7 L (42.0-52.0) % MCV 80.6 (80.0-98.0) fL MCH 26.2 L (27.0-33.0) pg MCHC 32.5 (31.0-36.0) g/dl RDW 14.3 (11.0-16.0) % Plt Count 258 (160-400) X10*3/uL MPV 8.7 L (9.4-12.4) fL Immature Gran % (Auto) 0.4 (0.0-0.4) % Neut % (Auto) 84.7 H (45-73) % Lymph % (Auto) 6.5 L (20-40) % [place] % (Auto) 6.1 (2-11) % Eos % (Auto) 2.0 (0-4) % Baso % (Auto) 0.3 (0-2) % Lymph # (Auto) 1.0 L (1.2-4.9) X10*3/uL [place] # (Auto) 1.0 (0.1-1.2) X10*3/uL Eos # (Auto) 0.3 (0.0-0.4) X10*3/uL Baso # (Auto) 0.1 (0.0-0.2) X10*3/uL Abs Immat Gran (auto) 0.07 H (0.00-0.03) X10*3/uL Absolute Neuts (auto) 13.5 H (2.0-8.3) x10*3/uL Absolute Nucleated RBC 0.000 (0.0-0.012) X10*3/uL Nucleated RBC % (auto) 0.0 (0.0-0.2) /100WBC APTT 32.0 (26.0-36.8) SEC D-Dimer High Sensitivty 373 NG/ML Sodium 137 (135-145) mmol/L Potassium 3.9 (3.3-5.1) mmol/L Chloride 103 (96-108) mmol/L Carbon Dioxide 25 (22-29) mmol/L Anion Gap 13 (12-20) BUN 10 (9-16) mg/dL Creatinine 0.83 (0.5-1.4) mg/dL Estim Creat Clear Calc 151.1 Estimated GFR > 60 Random Glucose 115 (60-115) mg/dL Calcium 9.0 (8.4-10.2) mg/dL Total Bilirubin 0.7 (0.0-1.0) mg/dL AST 57 H (5-37) U/L ALT 31 (0-40) U/L Alkaline Phosphatase 92 (39-117) U/L Troponin I High Sens < 2.7 (<3.5-35.0) ng/L Total Protein 7.0 (6.5-8.0) g/dL Albumin 3.7 (3.5-5.0) g/dL Urine Color Yellow Urine Appearance Clear Urine pH 7.0 (5.0-9.0) Ur Specific [place] 1.015 (1.005-1.025) Urine Protein Negative (Neg-Trace) mg/dL Urine Glucose (UA) Negative (Negative) mg/dL Urine Ketones Negative (Negative) mg/dL Urine Blood Negative (Negative) Urine Nitrite Negative (Negative) Ur Leukocyte Esterase Negative (Negative) Influenza Type A (PCR) NEGATIVE (Negative) Influenza Type B (PCR) NEGATIVE (Negative) RSV RNA Qual (PCR) NEGATIVE (Negative) SARS-CoV-2 RNA (RT-PCR) NEGATIVE (Negative) Independent Interpretation I performed an independent interpretation of an: EKG and Plain X-Ray Interpretation: My independent interpretation patient's 12 EKG done at 08:56 hours is as follows: Normal sinus rhythm with a rate of 93, normal DE interval, QRS duration and QTC interval, no ST segment elevation, no ST segment depression, no significant T-wave abnormalities, no PACs, no PVCs My interpretation patient's chest x-ray is as follows: No acute disease, no focal infiltrates. Radiology Impression Discussion of test interpretation with radiology: I have reviewed the radiologist's reading. Radiologist Impression: XR chest 1V IMPRESSION: Bronchial wall thickening may be infectious and/or inflammatory in etiology. Electronically signed by: Kacie Roman MD 03/11/2024 12:14 PM [facility] Dictated By: Kacie Roman MD CT angio chest PE protocol IMPRESSION: 1. No central or segmental pulmonary emboli. 2. New masslike consolidation in the left upper lobe measuring 1.1 cm. Patchy opacities in the dependent portions of the left upper lobe, left lower lobe, and right lower lobe. Findings are concerning for multifocal pneumonia or aspiration. Recommend short interval follow up for the left upper lobe lesion to ensure no underlying mass. VTE: negative. Electronically signed by: Rajinder Mosquera MD 03/11/2024 02:48 PM EST Dictated By: Rajinder Mosquera MD Critical Care Time Critical Care Time Critical Care Time: Yes Total Critical Care Time: 45 Attestation: Critical Care: The patient was critically ill with a high probability of imminent or life threatening deterioration. I spent greater than 30 minutes of discontinuous time evaluating the patient,delivering critical care at the bedside, discussing and evaluating pertinent data with consultants. Critical care time does not include time spent performing separately billable procedures or teaching. Total time spent performing critical care was 45 minutes. Discharge Plan Discharge Clinical Impression: Aspiration pneumonia, Pleuritic chest pain Patient Disposition: Admitted As Inpatient Prescriptions: No Action fluticasone furoate-vilanterol [Breo Ellipta] 200-25 mcg/dose blister with device 1 inh inhalation DAILY Qty: 60 2RF clindamycin HCl 300 mg capsule 300 mg PO TID Qty: 30 0RF ondansetron 4 mg tablet,disintegrating 4 mg PO Q6-8H PRN (Reason: nausea and vomiting) Qty: 14 0RF quetiapine 50 mg tablet 50 mg PO BID aspirin 81 mg tablet,delayed release (DR/EC) 81 mg PO DAILY albuterol sulfate [Ventolin HFA] 90 mcg/actuation HFA aerosol inhaler 2 puff inhalation Q4H PRN (Reason: wheezing) bupropion HCl 150 mg tablet extended release 24 hr 150 mg PO QAM mirtazapine 15 mg tablet 15 mg PO BEDTIME esomeprazole magnesium [Nexium] 40 mg capsule,delayed release(DR/EC) 40 mg PO DAILY Qty: 30 5RF sennosides [Natural Senna Laxative] 8.6 mg tablet 17.2 mg PO BEDTIME Qty: 180 1RF famotidine 40 mg tablet 40 mg PO BEDTIME 90 Days Qty: 90 3RF prazosin 5 mg capsule 5 mg PO BEDTIME polyethylene glycol 3350 [Miralax] 17 gram/dose powder 17 g PO DAILY Qty: 510 2RF ferrous gluconate 324 mg (38 mg iron) tablet 324 mg PO DAILY Print Language: Arabic
[2024-03-11 09:48] LABS: Troponin-I High Sensitivity < 2.7 ng/L (<3.5-35.0)
[2024-03-11 10:14] LABS: Influenza A PCR NEGATIVE (Negative); Influenza B PCR NEGATIVE (Negative); Resp Syncy Virus RNA Qual PCR NEGATIVE (Negative); SARS COV2 PCR INHOUSE NEGATIVE (Negative)
[2024-03-11 10:49] LABS: Alanine Aminotransferase 31 U/L (0-40); Albumin Level 3.7 g/dL (3.5-5.0); Alkaline Phosphatase 92 U/L (39-117); Aspartate Amino Transferase 57 U/L (5-37); Bilirubin Total 0.7 mg/dL (0.0-1.0); Blood Urea Nitrogen 10 mg/dL (9-16); Creatinine Clr Calc Pharmacy 151.1; Estimated Glomerular Filt Rate > 60; Glucose Random 115 mg/dL (60-115)
[2024-03-11] MEDS: Ketorolac Tromethamine 15 MG/ML VIAL IVPUSH (11:22)
[2024-03-11] MEDS: LORazepam 2 MG/ML VIAL 1 MG IVPUSH (11:22)
[2024-03-11 11:44] LABS: D Dimer High Sensitivity 373 NG/ML
[2024-03-11] MEDS: iohexoL 350 MG/ML 100 ML INFUS..BTL IV (13:42)
[2024-03-11] MEDS: 0.9 % Sodium Chloride 1,000 ML 999 ML IV (15:23)
--- NOTE | 2024-03-11 15:24 | PM.IMHP ---
History of Present Illness Date of Service: 03/11/24 Chief Complaint: Shortness of breath, chest pain A 38-year-old male with morbid obesity, obstructive sleep apnea (TYSON) (non-compliant with CPAP), and substance use disorder presents with chest pain and shortness of breath (SOB) since yesterday, with symptoms persisting intermittently for some time. He reports difficulty swallowing (dysphagia), describing episodes where food feels misdirected, sometimes regurgitating through his nose. Yesterday, he had episodes of vomiting and felt hot and cold (possible fever/chills). CXR: Bronchial wall thickening, possibly infectious or inflammatory.. CT Chest: New mass-like consolidation in the left upper lobe (1.1 cm). Patchy opacities in the dependent portions of the left upper lobe, left lower lobe, and right lower lobe. Findings suggestive of multifocal pneumonia or aspiration pneumonia. Clinical Concerns:Aspiration pneumonia is suspected based on imaging and dysphagia symptoms and he is startedon Ertapenem Review of Systems Review of Systems: Gen: no fever Resp: no sob, no cough CV: no chest, no ATKINSON, no leg edema GI: No n/v, no abd pain Neuro: No confusion [facility] Medical History Polysubstance abuse No known health problems Social History Household Members: Family [facility]: [facility] Do you presently have visiting nurse or other home services: No Alcohol intake: former Patient Tobacco Use Status: Former Tobacco user Use of substances other than those prescribed or required for medical reasons: Yes Substance Use Type: Marijuana Substance Use Frequency: Chronic Longstanding Currently Displaying Signs/Symptoms of Drug Intoxication Withdrawal: No Have you been hit, kicked, punched, or otherwise hurt by someone within the past year? If so, by whom?: No Do you feel safe in your current relationship?: No Current Relationship Is there a partner from a previous relationship who is making you feel unsafe now?: No Are you made to feel afraid or neglected: No Advance Directives: No Advance Directives Information Provided: No Do you have a plan to hurt others: No Plan Nutrition Risks: No Nutritional Risk Meds Allergies Allergy/AdvReac Type Severity Reaction Status Date / Time Penicillins [PENICILLINS] Allergy Unknown RASH Verified 03/11/24 09:01 Active Medications: Current Medications Vancomycin HCl (Vancomycin/Ns) 2,000 mg in 500 mls @ 250 mls/hr IV ONCE ONE Stop: 03/11/24 17:05 Sodium Chloride (Ns) 1,000 mls @ 999 mls/hr IV .Q1H1M STA Stop: 03/11/24 16:13 Last Admin: 03/11/24 15:23 Dose: 999 mls/hr Home Medications ?Medication ?Instructions ?Recorded ?Confirmed ?Last Taken ?Type albuterol sulfate 90 mcg/actuation 2 puff inhalation Q4H PRN wheezing 09/02/23 03/11/24 03/10/24 History aerosol inhaler (Ventolin HFA) aspirin 81 mg tablet,delayed 81 mg PO DAILY 09/02/23 03/11/24 03/10/24 History release bupropion HCl 150 mg 24 hr tablet, 150 mg PO DAILY 09/02/23 03/11/24 03/10/24 History extended release mirtazapine 15 mg tablet 15 mg PO BEDTIME 09/02/23 03/11/24 03/10/24 History quetiapine 50 mg tablet 50 mg PO BID 09/02/23 03/11/24 03/10/24 History acetaminophen 650 mg 650 mg PO Q8H PRN moderate pain 03/11/24 03/11/24 Unknown History tablet,extended release methadone 10 mg/mL oral 125 mg PO DAILY 03/11/24 03/12/24 03/11/24 History concentrate (Methadone Intensol) polyethylene glycol 3350 17 17 g PO DAILY PRN Constipation 03/11/24 03/11/24 03/10/24 History gram/dose oral powder (Miralax) Physical Exam Vital Signs and Narrative: Vital Signs: Last Vital Signs Temp 98.1 F 03/11/24 15:20 Pulse 86 03/11/24 15:20 Resp 16 03/11/24 15:20 BP 131/73 03/11/24 15:20 Pulse Ox 98 03/11/24 15:20 O2 Del Method Room Air 03/11/24 15:20 BMI result Body Mass Index 40.7 Const: Other: General: AO X 3, no acute distress HEENT. Resp: CTA bilateral CVS: S1,S2,RRR GI: +BS, NT, no distention Skin: No rash Neuro: motor grossly intact Psych: appropriate affect Results Labs 03/11/24 09:09 03/12/24 06:03 Labs: Laboratory Results - last 24 hr 03/11/24 03/11/24 03/11/24 09:09 09:28 11:22 MCV 80.6 MCH 26.2 L MCHC 32.5 RDW 14.3 Plt Count 258 MPV 8.7 L Immature Gran % (Auto) 0.4 Neut % (Auto) 84.7 H Lymph % (Auto) 6.5 L [place] % (Auto) 6.1 Eos % (Auto) 2.0 Baso % (Auto) 0.3 Lymph # (Auto) 1.0 L [place] # (Auto) 1.0 Eos # (Auto) 0.3 Baso # (Auto) 0.1 Abs Immat Gran (auto) 0.07 H Absolute Neuts (auto) 13.5 H Absolute Nucleated RBC 0.000 Nucleated RBC % (auto) 0.0 APTT 32.0 D-Dimer High Sensitivty 373 Anion Gap 13 Estim Creat Clear Calc 151.1 Estimated GFR > 60 Random Glucose 115 Calcium 9.0 Total Bilirubin 0.7 AST 57 H ALT 31 Alkaline Phosphatase 92 Troponin I High Sens < 2.7 Total Protein 7.0 Albumin 3.7 Urine Color Yellow Urine Appearance Clear Urine pH 7.0 Ur Specific [place] 1.015 Urine Protein Negative Urine Glucose (UA) Negative Urine Ketones Negative Urine Blood Negative Urine Nitrite Negative Ur Leukocyte Esterase Negative Influenza Type A (PCR) NEGATIVE Influenza Type B (PCR) NEGATIVE RSV RNA Qual (PCR) NEGATIVE SARS-CoV-2 RNA (RT-PCR) NEGATIVE Imaging Radiologist's Impressions: Impressions Chest X-Ray 03/11/24 11:22 IMPRESSION: Bronchial wall thickening may be infectious and/or inflammatory in etiology. Electronically signed by: Kacie Roman MD 03/11/2024 12:14 PM [facility] Chest CTA 03/11/24 13:18 IMPRESSION: 1. No central or segmental pulmonary emboli. 2. New masslike consolidation in the left upper lobe measuring 1.1 cm. Patchy opacities in the dependent portions of the left upper lobe, left lower lobe, and right lower lobe. Findings are concerning for multifocal pneumonia or aspiration. Recommend short interval follow up for the left upper lobe lesion to ensure no underlying mass. VTE: negative. Electronically signed by: Rajinder Mosquera MD 03/11/2024 02:48 PM EST Assessment and Plan (1) Aspiration pneumonia: Qualifiers: Laterality: unspecified laterality Lung location: unspecified part of lung Status: Acute Plan 38 year l old male morbidly obese, TYSON here with what appear to be aspiration pneumonia Aspiration pneumonia - Ertapenem for suspected aspiration pneumonia. Continue as prescribed. -The 1.1 cm mass-like consolidation in the left upper lobe warrants further investigation if not clear by Abx -Consider follow-up CT scan after the infection resolves to ensure resolution or assess for malignancy. -Pulmonary consult may be necessary if not improving -follow cultures Dysphagia Evaluation:High suspicion for aspiration as a result of dysphagia. Recommend further evaluation: -Speech and swallowing evaluation. -Consider esophagram or modified barium swallow study to assess swallowing mechanics or GI consult TYSON Management: -CPAP at night Morbid obesity -Weight loss advised Opioid use d/o, substance use (+opioid, fentanyl,cocaine, methadone) -methadone -consider addiction service. Anxiety--resume home meds DVT prophylaxis: lovneox at least 2 midnights admit for management of aspiration PNA Quality Stroke Does the patient have a stroke diagnosis?: No VTE Prior VTE?: No VTE Risk Level:: Medical - moderate - high VTE Device Contraindication: Treatment Not Indicated VTE Drug Contraindication: N/A - Med Ordered
[2024-03-11] MEDS: Pantoprazole Sodium 40 MG/10 ML VIAL IVPUSH (15:43)
[2024-03-11] MEDS: Ertapenem Sodium 1 GM VIAL IVPUSH (15:43)
[2024-03-11] MEDS: vancomycin/NS 2,000 MG/500 ML PLAST..BAG 250 MG IV (15:51)
[2024-03-11 15:59] LABS: Amphetamine Screen Urine Not Detected (Not Detect); Barbiturates, Urine Not Detected (Not Detect); Benzodiazepines Screen Urine Not Detected (Not Detect); Buprenorphine Scr Not Detected (Not Detect); Cannabinoid Screen Urine POSITIVE (Not Detect); Cocaine Screen Urine POSITIVE (Not Detect); Fentanyl, urine POSITIVE (Not Detect); Methadone Screen, Urine Positive (Not Detect); Opiate Screen Urine POSITIVE (Not Detect); Oxycodone Screen Urine Not Detected (Not Detect); Phencyclidine Screen Urine Not Detected (Not Detect)
[2024-03-11] MEDS: Enoxaparin Sodium 40 MG/0.4 ML SYRINGE SUBCUT (17:11)
[2024-03-11] MEDS: Acetaminophen 325 MG TABLET 650 MG PO (17:11)
--- NOTE | 2024-03-11 17:42 | PC.NURSE ---
methadone dose verified with [facility]. patient on 125mg methadone daily
--- NOTE | 2024-03-11 18:04 | PHA.MEDREC ---
Pharmacy Consult ? Medication Reconciliation Pharmacy has completed the medication reconciliation. Spoke to patient and confirmed medication list. Patient confirmed he takes bupropion XL 150 mg daily, he no longer takes clindamycin, ferrous gluconate, ondansetron nor prazosin. Last dose of medication was yesterday.
--- NOTE | 2024-03-11 18:30 | PC.NURSE ---
patient given po tylenol for pain, pain score 7/10, no other prn ordered, patient agreeable to tylenol. MD aware of pain level
[2024-03-11] MEDS: Sennosides 8.6 MG TABLET 17.2 MG PO (20:02)
[2024-03-11] MEDS: Ketorolac Tromethamine 30 MG/ML VIAL IVPUSH (20:03)
[2024-03-11] MEDS: Mirtazapine 15 MG TABLET PO (20:03)
[2024-03-11] MEDS: QUEtiapine Fumarate 50 MG TABLET PO (20:03)
[2024-03-11] MEDS: Famotidine 20 MG TABLET 40 MG PO (20:03)
[2024-03-12] MEDS: Ibuprofen 600 MG TABLET PO ×3 (01:29→17:57)
--- NOTE | 2024-03-12 01:56 | PC.NURSE ---
1942; Patient complaining of chest pain post Tylenol- MD Krueger made aware. One time dose of Toradol given per order
[2024-03-12 03:51] VITALS: BP 126/67; PULSE 98; RESP 16; TEMP 36.6; O2SAT 92
[2024-03-12 07:08] LABS: Alanine Aminotransferase 25 U/L (0-40); Albumin Level 3.4 g/dL (3.5-5.0); Alkaline Phosphatase 83 U/L (39-117); Anion Gap 12 (12-20); Aspartate Amino Transferase 38 U/L (5-37); Bilirubin Total 0.4 mg/dL (0.0-1.0); Blood Urea Nitrogen 8 mg/dL (9-16); Calcium 8.7 mg/dL (8.4-10.2); Carbon Dioxide 27 mmol/L (22-29); Chloride 104 mmol/L (96-108); Estimated Glomerular Filt Rate > 60; Glucose Random 93 mg/dL (60-115); Potassium 3.6 mmol/L (3.3-5.1); Sodium 139 mmol/L (135-145); Total Protein 6.3 g/dL (6.5-8.0)
--- NOTE | 2024-03-12 07:19 | HE.PHANOTE ---
RE METHADONE Patient receives methadone at [facility], , patient was last dosed on 03/04/24 but was given 26 take home bottles. last take home bottle was taken 03/11/24
[2024-03-12 08:00] VITALS: BP 108/67; PULSE 71; RESP 18; TEMP 36.1; O2SAT 94
[2024-03-12] MEDS: methADONE HCl 20 MG/2 ML ORAL.CONC 125 MG PO (08:59)
[2024-03-12] MEDS: Meropenem 1 GM VIAL IVPUSH ×2 (08:59→15:34)
[2024-03-12] MEDS: Aspirin Enteric Coated 81 MG TABLET.DR PO (08:59)
[2024-03-12] MEDS: buPROPion HCl XL 150 MG TAB.ER.24H PO (09:00)
[2024-03-12] MEDS: QUEtiapine Fumarate 50 MG TABLET PO ×2 (09:00→19:41)
[2024-03-12] MEDS: 0.9 % Sodium Chloride Flush 3 ML SYRINGE IVFLUSH ×3 (09:00→19:43)
--- NOTE | 2024-03-12 10:03 | MHC.CM.PN ---
PT LIVES W/MOTHER HAS NO SERVIES AND HAS A RIDE HOME
--- NOTE | 2024-03-12 11:23 | MHC.SL.SWA ---
Speech Pathologist Impression: Oropharyngeal Dypshagia Risk of Aspiration Due to: History of Pneumonia Dysphasia Diet Status: Start on NDD3/THIN Liquid Consistency and Strategies for Safe Swallow: Liquid Intake Recommendation: Thin Liquid Intake Strategies: Small Sips Solid Food Consistency: Dietary Recommendations: Chopped/Advanced (NDD3) Additional Modifications to Solid Foods: Patient with ample complaints related to his swallow, including globus sensation at the sternal notch, nasal regurgitation on solids, coughing up phlegm with food particles, and coughing sometimes w/ PO intake. Patient says that liquids seem to go down ok and at home he eats regular foods cut up or ripped up (i.e. rice, ripped up bread and salami). He tries to pick softer and less sticky foods. Patient believes this has been happening for a long time, but he noticed it more when he stopped abusing substances a few years ago. ADMINISTRATIVE EXECUTIVE observed patient consuming thin liquids, applesauce, and jose crackers. Note slow chewing d/t edentulous status and incomplete laryngeal elevation, otherwise oral and pharyngeal phase at bedside appeared quite unremarkable. Patient denied experiencing any nasal regurgitation or sensation of anything getting stuck this time, but endorsed that this happens intermittently. Once cleared from Full Liquid Diet, recommend advance to Chopped/Advanced solids (NDD3), Thin Liquids, pills Whole or Crushed with Puree. Recommend further assess w/ instrumental (MBSS) in light of CXR findings concerning for aspiration PNA & patient's multiple symptoms. Oral Medication Intake: Whole with Puree Please contact the pharmacy regarding appropriate crushable or liquid drug formulations that are available whenever modified delivery is recommended. Compensatory Strategies and Precautions to be Taken for Safe Swallow: Sitting Upright (90 deg) Double Swallow Small Bites and Sips Alternate Liquids/Solids Rate of Ingestion Change Avoid Specific Foods Supervision While Eating and Drinking for Safe Swallow: Intermittent Supervision Foods to Avoid: Tough, hard to chew foods Swallowing Recommended Treatments: Compens. Strategy Educat. Recommendation for Speech: Inpatient Speech Therapy Modified Barium Swallow Study - Inpatient Comment: Frequency/Duration: PRN M-F Date Range for Service Req: Timeline to reassess: Public Relations Specialist Clinican/Clinical Fellow: No Supervisory Statement: I have reviewed and agree with the student/clinical fellow's documentation: N/A Speech Language Pathologist: Arlene Sarmiento M.A., CCC-ADMINISTRATIVE EXECUTIVE
[2024-03-12 15:12] VITALS: BP 125/79; PULSE 82; RESP 18; TEMP 36.1; O2SAT 93
[2024-03-12] MEDS: Enoxaparin Sodium 40 MG/0.4 ML SYRINGE SUBCUT (15:34)
[2024-03-12 18:51] VITALS: BP 123/72; PULSE 86; RESP 18; TEMP 36.4; O2SAT 93
[2024-03-12] MEDS: Sennosides 8.6 MG TABLET 17.2 MG PO (19:41)
[2024-03-12] MEDS: Famotidine 20 MG TABLET 40 MG PO (19:41)
[2024-03-12] MEDS: Mirtazapine 15 MG TABLET PO (19:42)
[2024-03-12 22:29] VITALS: PULSE 75; RESP 16; O2SAT 91
[2024-03-13] MEDS: Meropenem 1 GM VIAL IVPUSH ×4 (00:10→23:35)
[2024-03-13 03:45] VITALS: BP 115/61; PULSE 72; RESP 18; TEMP 36.8; O2SAT 94
[2024-03-13] MEDS: Ibuprofen 600 MG TABLET PO (05:22)
[2024-03-13 07:13] VITALS: BP 128/72; PULSE 81; RESP 16; TEMP 36.9; O2SAT 94
[2024-03-13] MEDS: Aspirin Enteric Coated 81 MG TABLET.DR PO (08:26)
[2024-03-13] MEDS: QUEtiapine Fumarate 50 MG TABLET PO ×2 (08:26→20:29)
[2024-03-13] MEDS: 0.9 % Sodium Chloride Flush 3 ML SYRINGE IVFLUSH ×3 (08:26→20:29)
[2024-03-13] MEDS: buPROPion HCl XL 150 MG TAB.ER.24H PO (08:26)
[2024-03-13] MEDS: methADONE HCl 20 MG/2 ML ORAL.CONC 125 MG PO (08:32)
[2024-03-13 08:41] LABS: Hematocrit 34.4 % (42.0-52.0); Hemoglobin 10.9 g/dl (14.0-18.0); Mean Corpuscular HGB Conc 31.7 g/dl (31.0-36.0); Mean Corpuscular Volume 82.1 fL (80.0-98.0); Mean Platelet Volume 9.1 fL (9.4-12.4); Platelet Count 239 X10*3/uL (160-400); Red Blood Count 4.19 X10*6/uL (4.60-5.80); Red Cell Distribution Width 14.8 % (11.0-16.0); White Blood Count 7.4 X10*3/uL (4.8-10.8)
[2024-03-13 08:53] LABS: Anion Gap 9 (12-20); Blood Urea Nitrogen 8 mg/dL (9-16); Calcium 8.6 mg/dL (8.4-10.2); Carbon Dioxide 28 mmol/L (22-29); Chloride 105 mmol/L (96-108); Creatinine Clr Calc Pharmacy 165.1; Estimated Glomerular Filt Rate > 60; Glucose Random 98 mg/dL (60-115); Potassium 3.7 mmol/L (3.3-5.1); Sodium 138 mmol/L (135-145)
--- NOTE | 2024-03-13 08:58 | P.PNIM_ITS ---
Subjective Subjective Date of Service: 03/13/24 Interval History: c/o of some chest pain similar to when he came no sob, no cough, no fever, normal O2 sat Physical Exam 2 Vital Signs: Vital Signs: Last Vital Signs Temp 98.5 F 03/13/24 07:13 Pulse 81 03/13/24 07:13 Resp 16 03/13/24 07:13 BP 128/72 03/13/24 07:13 Pulse Ox 94 03/13/24 07:13 O2 Del Method Room Air 03/13/24 07:13 BMI result Body Mass Index 41.8 Const: Other: General: AO X 3, no acute distress HEENT. Resp: CTA bilateral CVS: S1,S2,RRR GI: +BS, NT, no distention Skin: No rash Neuro: motor grossly intact Psych: appropriate affect Objective Data Active Medications Acetaminophen (Acetaminophen 325 Mg Tablet) 650 mg PO Q6H PRN PRN Reason: Pain, Mild (Pain Scale 1-3), fever or headache Last Admin: 03/11/24 17:11 Dose: 650 mg Documented By: GIL Albuterol Sulfate (Albuterol Sulfate 90 Mcg 8 Gm Inhaler) 2 puff INHALE Q4H PRN PRN Reason: wheezing Aspirin (Aspirin Enteric Coated 81 Mg Tablet.Dr) 81 mg PO DAILY [facility] Last Admin: 03/13/24 08:26 Dose: 81 mg Documented By: FUNMI Bupropion HCl (Bupropion Hcl Xl 150 Mg Tab.Er.24h) 150 mg PO DAILY [facility] Last Admin: 03/13/24 08:26 Dose: 150 mg Documented By: FUNMI Calcium Carbonate (Calcium Carbonate 750 Mg Tab.Chew) 750 mg PO Q4H PRN PRN Reason: Heartburn Enoxaparin Sodium (Enoxaparin Sodium 40 Mg/0.4 Ml Syringe) 40 mg SUBCUT Q24H [facility] Last Admin: 03/12/24 15:34 Dose: 40 mg Documented By: JOHANNA Famotidine (Famotidine 20 Mg Tablet) 40 mg PO BEDTIME [facility] Last Admin: 03/12/24 19:41 Dose: 40 mg Documented By: PHAM Fluticasone/Vilanterol (Fluticasone/Vilanterol 200/25 Blst.W.Dev) 1 puff INHALE DAILY [facility] Last Admin: 03/12/24 07:50 Dose: Not Given Documented By: JOSE ALFREDO Non-Admin Reason: Med Not Available Ibuprofen (Ibuprofen 600 Mg Tablet) 600 mg PO Q6H PRN PRN Reason: Pain, Severe (Pain Scale 7-10) Last Admin: 03/13/24 05:22 Dose: 600 mg Documented By: PHAM Magnesium Hydroxide (Milk Of Magnesia 30 Ml Oral.Susp) 30 ml PO DAILY PRN PRN Reason: Constipation Melatonin (Melatonin 3 Mg Tablet) 6 mg PO BEDTIME PRN PRN Reason: Insomnia Meropenem (Meropenem 1 Gm Vial) 1 gm IVPUSH Q8H [facility] Last Admin: 03/13/24 08:26 Dose: 1 gm Documented By: FUNMI Methadone HCl (Methadone Hcl 20 Mg/2 Ml Oral.Conc) 125 mg PO DAILY [facility] Last Admin: 03/13/24 08:32 Dose: 125 mg Documented By: FUNMI Co-signed By: OTTO Mirtazapine (Mirtazapine 15 Mg Tablet) 15 mg PO BEDTIME [facility] Last Admin: 03/12/24 19:42 Dose: 15 mg Documented By: PHAM Ondansetron HCl (Ondansetron Hcl 4 Mg/2 Ml Vial) 4 mg IVPUSH Q8H PRN PRN Reason: Nausea and Vomiting Polyethylene Glycol (Polyethylene Glycol 3350 17 Gm Powd.Pack) 17 gm PO DAILY PRN PRN Reason: Constipation Polyethylene Glycol (Polyethylene Glycol 3350 17 Gm Powd.Pack) 17 gm PO DAILY PRN PRN Reason: Constipation Quetiapine Fumarate (Quetiapine Fumarate 50 Mg Tablet) 50 mg PO BID [facility] Last Admin: 03/13/24 08:26 Dose: 50 mg Documented By: FUNMI Senna (Sennosides 8.6 Mg Tablet) 17.2 mg PO BEDTIME [facility] Last Admin: 03/12/24 19:41 Dose: 17.2 mg Documented By: PHAM Sodium Chloride (0.9 % Sodium Chloride Flush 3 Ml Syringe) 3 ml IVFLUSH QSHIFT [facility] Last Admin: 03/13/24 08:26 Dose: 3 ml Documented By: FUNMI Labs 03/13/24 08:24 03/13/24 08:24 Labs: Laboratory Results - last 24 hr 03/13/24 08:24 MCV 82.1 MCH 26.0 L MCHC 31.7 RDW 14.8 Plt Count 239 MPV 9.1 L Absolute Nucleated RBC 0.000 Nucleated RBC % (auto) 0.0 Anion Gap 9 L Estim Creat Clear Calc 165.1 Estimated GFR > 60 Random Glucose 98 Calcium 8.6 Microbiology Microbiology Results: Microbiology 03/11/24 15:34 Blood Culture - Preliminary Blood - Venous No growth after 24 hours. 03/11/24 15:16 Blood Culture - Preliminary Blood - Venous No growth after 24 hours. Assessment and Plan (1) Aspiration pneumonia: Status: Acute Plan 38 year l old male morbidly obese, TYSON here with what appear to be aspiration pneumonia Aspiration pneumonia - Ertapenem for suspected aspiration pneumonia. Continue as prescribed. -The 1.1 cm mass-like consolidation in the left upper lobe warrants further investigation if not clear by Abx -Consider follow-up CT scan after the infection resolves to ensure resolution or assess for malignancy. -Pulmonary consult if not improving -follow cultures Dysphagia :High suspicion for aspiration as a result of dysphagia. -Speech and swallowing evaluation- -MBS today TYSON Management: -CPAP at night Morbid obesity -Weight loss advised Opioid use d/o, substance use (+opioid, fentanyl,cocaine, and methadone) -methadone Anxiety--resume home meds DVT prophylaxis: lovneox at least 2 midnights admit for management of aspiration PNA Quality Stroke Does the patient have a stroke diagnosis?: No VTE Prior VTE?: No VTE Risk Level:: Medical - moderate - high VTE Device Contraindication: Treatment Not Indicated VTE Drug Contraindication: N/A - Med Ordered
--- NOTE | 2024-03-13 10:37 | MHC.SLORD ---
Speech Language Pathology Order Status: Pt seen this morning, reports no issues with PO intake, notes his brother is bringing in food for him today. Pt aware he has MBSS at 2pm. Assessment confirmed with RN. Pt had no questions about evaluation. Further AUDIT TECH recc pending MBSS results.
--- NOTE | 2024-03-13 10:40 | HO.ADDICT_ITS ---
History of Present Illness Date of Service: 03/13/2024 Chief Complaint: aspiration pneumonia Reason for Consult: OUD Sources of Information: patient interviewed and chart reviewed HPI Narrative: Patient is a 38 year old male with OUD medically admitted with pneumonia At time of admission, patient reported recent IN cocaine and fentanyl use So consult was requested Patient seen in room 369. He was awake, alert, pleasant and engaged in interview He reports he has been in recovery (abstaining from substance use) for almost 3 years, until last week. He reports a one time recurrence after seeing someone he knew while out last week He denies any ongoing use prior to or after this incident He states that he is engaged in treatment with [facility] Current dose is 125mg daily and he is proud to share that I worked my way up to monthly take home bottles He states that he had been using cocaine and heroin from the age of 19 to age 35--when he started treatment and eventually decided to abstain from use all together Discussed recurrence of use, and any potential triggers that preceded this. He states that he usually is home all day either watching TV or playing [place]. He shares that he is often anxious to leave his home due to his substance use history as he lives in the same area that he was active in. He identifies his mother and brother as his main supports, but has limited recovery supports outside of the home He is aware that his OTP is available to provide him with direction in terms of recovery support Discussed his substance use and how that may be impacting his current presentation He stated, I feel like I'm sick all of the time, even before I used this time . He plans to continue with [facility] and will look into virtual recovery supports --discussed some websites and social medical pages that provide this content Review of Systems Constitutional: Reports as per HPI, Reports lethargy and Reports malaise Respiratory: Reports pain on inspiration (mainly on left side, front and back ) Diagnostics Vital Signs (24Hr): Vital Signs - 24 hr 03/12/24 15:12 03/12/24 18:51 03/12/24 22:29 Temperature 97 F 97.5 F Pulse Rate 82 86 Respiratory Rate 18 18 16 Blood Pressure 125/79 123/72 Pulse Oximetry 93 93 Oxygen Delivery Method Room Air Room Air 03/13/24 03:45 03/13/24 07:13 Temperature 98.2 F 98.5 F Pulse Rate 72 81 Respiratory Rate 18 16 Blood Pressure 115/61 128/72 Pulse Oximetry 94 94 Oxygen Delivery Method Room Air Room Air BMI result Body Mass Index 41.8 Labs 03/13/24 08:24 03/13/24 08:24 Labs: Laboratory Results - last 48 hr 03/11/24 03/11/24 03/11/24 09:09 09:28 11:22 WBC RBC Hgb Hct MCV MCH MCHC RDW Plt Count MPV Absolute Nucleated RBC Nucleated RBC % (auto) Hold Purple Top APTT 32.0 D-Dimer High Sensitivty 373 Sodium Potassium Chloride Carbon Dioxide Anion Gap BUN 10 Creatinine 0.83 Estim Creat Clear Calc 151.1 Estimated GFR > 60 Random Glucose 115 Lactic Acid Calcium 9.0 Total Bilirubin 0.7 AST 57 H ALT 31 Alkaline Phosphatase 92 Total Protein 7.0 Albumin 3.7 Urine Opiates Screen POSITIVE H Ur Buprenorphine Scrn Not Detected Ur Oxycodone Screen Not Detected Urine Methadone Screen Positive H Urine Fentanyl Screen POSITIVE H Ur Barbiturates Screen Not Detected Ur Phencyclidine Scrn Not Detected Ur Amphetamines Screen Not Detected U Benzodiazepines Scrn Not Detected Urine Cocaine Screen POSITIVE H U Marijuana (THC) Screen POSITIVE H 03/11/24 03/12/24 03/13/24 15:34 06:03 08:24 WBC 7.4 RBC 4.19 L Hgb 10.9 L Hct 34.4 L MCV 82.1 MCH 26.0 L MCHC 31.7 RDW 14.8 Plt Count 239 MPV 9.1 L Absolute Nucleated RBC 0.000 Nucleated RBC % (auto) 0.0 Hold Purple Top SEE NOTE APTT D-Dimer High Sensitivty Sodium 139 138 Potassium 3.6 3.7 Chloride 104 105 Carbon Dioxide 27 28 Anion Gap 12 9 L BUN 8 L 8 L Creatinine 0.78 0.77 Estim Creat Clear Calc 163.0 165.1 Estimated GFR > 60 > 60 Random Glucose 93 98 Lactic Acid 1.0 Calcium 8.7 8.6 Total Bilirubin 0.4 AST 38 H ALT 25 Alkaline Phosphatase 83 Total Protein 6.3 L Albumin 3.4 L Urine Opiates Screen Ur Buprenorphine Scrn Ur Oxycodone Screen Urine Methadone Screen Urine Fentanyl Screen Ur Barbiturates Screen Ur Phencyclidine Scrn Ur Amphetamines Screen U Benzodiazepines Scrn Urine Cocaine Screen U Marijuana (THC) Screen Imaging Radiology Impressions: ITS Impressions Chest X-Ray 03/11/24 11:22 IMPRESSION: Bronchial wall thickening may be infectious and/or inflammatory in etiology. Electronically signed by: Kacie Roman MD 03/11/2024 12:14 PM EST RP Chest CTA 03/11/24 13:18 IMPRESSION: 1. No central or segmental pulmonary emboli. 2. New masslike consolidation in the left upper lobe measuring 1.1 cm. Patchy opacities in the dependent portions of the left upper lobe, left lower lobe, and right lower lobe. Findings are concerning for multifocal pneumonia or aspiration. Recommend short interval follow up for the left upper lobe lesion to ensure no underlying mass. VTE: negative. Electronically signed by: Rajinder Mosquera MD 03/11/2024 02:48 PM EST RP Mental Status Exam Mental Status Exam Patient Appearance: Appropriate Level of Consciousness: Awake, Appropriate and Alert Patient Behavior: Appropriate and Talkative Mood Description: Calm Affect Description: Calm Ability to Follow Directions: Excellent Speech Pattern: Clear Thought Process: Intact Medications Medications Current Medications Acetaminophen (Acetaminophen 325 Mg Tablet) 650 mg PO Q6H PRN PRN Reason: Pain, Mild (Pain Scale 1-3), fever or headache Last Admin: 03/11/24 17:11 Dose: 650 mg Albuterol Sulfate (Albuterol Sulfate 90 Mcg 8 Gm Inhaler) 2 puff INHALE Q4H PRN PRN Reason: wheezing Aspirin (Aspirin Enteric Coated 81 Mg Tablet.Dr) 81 mg PO DAILY [facility] Last Admin: 03/13/24 08:26 Dose: 81 mg Bupropion HCl (Bupropion Hcl Xl 150 Mg Tab.Er.24h) 150 mg PO DAILY [facility] Last Admin: 03/13/24 08:26 Dose: 150 mg Calcium Carbonate (Calcium Carbonate 750 Mg Tab.Chew) 750 mg PO Q4H PRN PRN Reason: Heartburn Enoxaparin Sodium (Enoxaparin Sodium 40 Mg/0.4 Ml Syringe) 40 mg SUBCUT Q24H [facility] Last Admin: 03/12/24 15:34 Dose: 40 mg Famotidine (Famotidine 20 Mg Tablet) 40 mg PO BEDTIME [facility] Last Admin: 03/12/24 19:41 Dose: 40 mg Fluticasone/Vilanterol (Fluticasone/Vilanterol 200/25 Blst.W.Dev) 1 puff INHALE DAILY [facility] Last Admin: 03/13/24 10:19 Dose: Not Given Ibuprofen (Ibuprofen 600 Mg Tablet) 600 mg PO Q6H PRN PRN Reason: Pain, Severe (Pain Scale 7-10) Last Admin: 03/13/24 05:22 Dose: 600 mg Magnesium Hydroxide (Milk Of Magnesia 30 Ml Oral.Susp) 30 ml PO DAILY PRN PRN Reason: Constipation Melatonin (Melatonin 3 Mg Tablet) 6 mg PO BEDTIME PRN PRN Reason: Insomnia Meropenem (Meropenem 1 Gm Vial) 1 gm IVPUSH Q8H [facility] Last Admin: 03/13/24 08:26 Dose: 1 gm Methadone HCl (Methadone Hcl 20 Mg/2 Ml Oral.Conc) 125 mg PO DAILY [facility] Last Admin: 03/13/24 08:32 Dose: 125 mg Mirtazapine (Mirtazapine 15 Mg Tablet) 15 mg PO BEDTIME [facility] Last Admin: 03/12/24 19:42 Dose: 15 mg Ondansetron HCl (Ondansetron Hcl 4 Mg/2 Ml Vial) 4 mg IVPUSH Q8H PRN PRN Reason: Nausea and Vomiting Polyethylene Glycol (Polyethylene Glycol 3350 17 Gm Powd.Pack) 17 gm PO DAILY PRN PRN Reason: Constipation Polyethylene Glycol (Polyethylene Glycol 3350 17 Gm Powd.Pack) 17 gm PO DAILY PRN PRN Reason: Constipation Quetiapine Fumarate (Quetiapine Fumarate 50 Mg Tablet) 50 mg PO BID [facility] Last Admin: 03/13/24 08:26 Dose: 50 mg Senna (Sennosides 8.6 Mg Tablet) 17.2 mg PO BEDTIME [facility] Last Admin: 03/12/24 19:41 Dose: 17.2 mg Sodium Chloride (0.9 % Sodium Chloride Flush 3 Ml Syringe) 3 ml IVFLUSH QSHIFT [facility] Last Admin: 03/13/24 08:26 Dose: 3 ml Allergies Allergies Allergy/AdvReac Type Severity Reaction Status Date / Time Penicillins [PENICILLINS] Allergy Unknown RASH Verified 03/11/24 09:01 Assessment & Plan Assessment & Plan (1) Opioid use disorder, severe, in early remission: Status: Acute Code(s): F11.21 - Opioid dependence, in remission Assessment and Plan: * risk reduction discussion * encouraged patient to discuss anxiety sx and recovery supports with his OTP providers * consider hepatitis and HIV screen given risk factors--unclear when his last screen was * take home narcan at discharge * no further follow up indicated Total time managing care of this patient today __35__ minutes. PMFSH Past Medical History Medical History Polysubstance abuse No known health problems Social History Social History Household Members: Family Housing: Condominium Do you presently have visiting nurse or other home services: No Alcohol intake: former Patient Tobacco Use Status: Former Tobacco user Use of substances other than those prescribed or required for medical reasons: Yes Substance Use Type: Marijuana Substance Use Frequency: Chronic Longstanding Currently Displaying Signs/Symptoms of Drug Intoxication Withdrawal: No Have you been hit, kicked, punched, or otherwise hurt by someone within the past year? If so, by whom?: No Do you feel safe in your current relationship?: No Current Relationship Is there a partner from a previous relationship who is making you feel unsafe now?: No Are you made to feel afraid or neglected: No Advance Directives: No Advance Directives Information Provided: No Do you have a plan to hurt others: No Plan Nutrition Risks: No Nutritional Risk service: No
--- NOTE | 2024-03-13 11:27 | MHC.CM.PN ---
Per MD rounds no discharge today. Patient is scheduled for a MBS @ 2pm today. DP Home with family support and resumption of Methadone @ [facility]. Patient will arrange for transportation home.
[2024-03-13 14:24] VITALS: BP 126/81; PULSE 80; RESP 18; TEMP 37.2; O2SAT 93
[2024-03-13 15:32] VITALS: BP 126/75; PULSE 85; RESP 18; TEMP 37.1; O2SAT 94
[2024-03-13] MEDS: Enoxaparin Sodium 40 MG/0.4 ML SYRINGE SUBCUT (16:04)
--- NOTE | 2024-03-13 16:08 | MHC.SL.IMP ---
Date of Plan of Treatment: 03/12/24 Onset of Symptoms/Illness: 03/12/22 Date Treatment Started: 03/12/24 Admitting Diagnosis: Aspiration PNA Primary Speech & Language Diagnosis: R13.12 Oropharyngeal Phase Dysphagia Reason for Today's Visit: 17484 Modified Barium Swallow Study Pre-evaluation Dietary Consistencies: Chopped/Advanced (NDD3) Pre-evaluation Liquid Consistency: Thin Pre-evaluation Medication Administration: Whole with Puree Medical History: Modified Barium Swallow Study Fluoroscopic Evaluation of Swallowing Function CPT Code 26279 Evaluation Year: 2023 Reason for Study: ? Aspiration Referring Physician: Jose Martin Aguiar MD Evaluating Clinician: Arlene Sarmiento MA, CCC-CH[employer] SUPERVISOR Study Number: 1 Patient Name: Yaniv Gutierrez Status: Inpatient, Ambulatory Age: 38 Gender: Male Medical History Morbid obesity, TYSON, substance use d/o Current (pre-evaluation) Intake/Diet: Route: PO Diet Grade: Chopped/Advanced (NDD3) Liquid Consistencies: Thin Pre-Study Functional Oral Intake Scale (FOIS): 5- Total oral intake of multiple consistencies requiring special preparation Pain: None reported at time of study Subjective: Patient is a 38 year old male presenting w/ chest pain and SOB. Chest CTA showed, New masslike consolidation in the left upper lobe measuring 1.1 cm. Patchy opacities in the dependent portions of the left upper lobe, left lower lobe, and right lower lobe. Patient to have the 1.1 cm mass-like consolidation in the left upper lobe further investigated if not clear by Abx, w/ f/u CT scan and Pulmonary consult. Findings are also concerning for multifocal pneumonia or aspiration. Patient was started on a Full Liquid Diet then recommended advancement to Chopped/Advanced Texture Diet (NDD3) per [employer] SUPERVISOR after he was seen for a clinical swallow exam yesterday. He was also recommended further assess w/ instrumental (MBSS) in light of CXR findings concerning for aspiration PNA & patient's multiple symptoms. Patient?s brother has been bringing in food for him and he says he has been tolerating food and liquid without having any episodes. Patient reports onset of dysphagia few years ago when he stopped using. He reports globus sensation in his throat and coughing up large amounts of phlegm with food particles. He also feels food in [his] nose. He reports coughing at night and sometimes during PO intake. He denies odynophagia. Patient is edentulous and breaks up food into small pieces. Patient says he eats rice, and bread and salami which he rips up before eating. Oral Motor Exam Facial Symmetry: Symmetrical Facial Movement: Oral-Facial Facial Miscellaneous Observations: Mouth Occlusion: Normal Oral-Facial Teeth Characteristics: Edentulous Oral-Facial Teeth Miscellaneous Observation: Oral-Facial Lip Pucker Description: Normal Oral-Facial Smile (Lips) Description: Normal Oral-Facial Puff Cheeks Description: Normal Tongue Size: Normal Tongue Excursion Description: Normal Tongue Range of Movement Description: Normal Tongue Speed of Movement Description: Normal Tongue Strength of Movement (against opposing pressure): Normal Tongue Movement Characteristics: Normal/Absent Is patient able to manage secretions?: Yes Is patient able to produce volitional cough?: Yes Food and Liquid Trials: Oral Impairment: Lip Closure: Did not test Oral Impairment: Tongue Control During Bolus Hold: 2=Posterior escape of less than half of bolus Oral Impairment: Bolus Preparation/Mastication: 2=Disorganized chewing/mashing with solid pieces of bolus Oral Impairment: Bolus Transport/Lingual Motion: 2=Slowed tongue motion Oral Impairment: Oral Residue: 1=Trace residue lining oral structures Oral Impairment:Initiation of Pharyngeal Swallow: 3=Bolus head in pyriforms Pharyngeal Impairment: Soft Palate Elevation: 0=No bolus between soft palate (SP)/pharyngeal wall (PW) Pharyngeal Impairment: Laryngeal Elevation: 1=Partial thyroid cartilage/arytenoids to epiglottic petiole movement Pharyngeal Impairment: Anterior Hyoid Excursion: 1=Partial anterior movement Pharyngeal Impairment: Epiglottic Movement: 1=Partial inversion Pharyngeal Impairment: Laryngeal Vestibular Closure:: 1=Incomplete: narrow column air/contrast in laryngeal vestibule Pharyngeal Impairment: Pharyngeal Stripping Wave: 0=Present: complete Pharyngeal Impairment: Pharyngeal Contraction: Did not test Pharyngeal Impairment: Pharyngoesophageal Segment Openin=Complete distension and complete duration: no obstruction of flow Pharyngeal Impairment: Tongue Base (TB) Retraction: 1=Trace column of contrast/air between TB and posterior PW Pharyngeal Impairment: Pharyngeal Residue: 1=Trace residue within or on pharyngeal structures Pharyngeal Impairment: Esophageal Clearance Upright Position: Did not test Impressions and Recommendations Clinical Observations: OBJECTIVE: Time-out: performed at 14:15 Evaluation Start: 14:00; Stop: 14:05 Patient Positioning: Standing Viewing Planes: LATERAL ONLY Contrast: MBSImP? Standardized Protocol using commercially prepared, standardized Barium viscosities, including: Varibar? THIN LIQUID (40% w/v, <15 cps) , Varibar? PUDDING (40% w/v, <0477-5786 cps) MBSImP ID: [id number] [facility]: Lip closure for intraoral bolus containment could not be assessed due to logistical reasons not related to physiologic impairment. Tongue control during bolus hold resulted in posterior escape of less than half of the bolus. Bolus preparation and mastication demonstrated disorganized chewing/mashing with solid pieces of the bolus unchewed. Bolus transport/lingual motion was with slowed tongue motion. Oral residue was a trace, lining oral structures. Initiation of the pharyngeal swallow occurred when the bolus head was in the pyriform sinuses. Soft palate elevation resulted in no bolus between the soft palate and the pharyngeal wall. Laryngeal elevation was decreased, with partial superior movement of the thyroid cartilage/partial approximation of the arytenoids to the epiglottic petiole. Anterior hyoid excursion demonstrated partial anterior movement. Epiglottic movement resulted in partial inversion. Laryngeal vestibular closure was incomplete, with a narrow column of air/contrast noted within the laryngeal vestibule at the height of the swallow. Pharyngeal stripping wave was present and complete. Pharyngeal contraction could not be determined due to logistical reasons not related to physiologic impairment. Pharyngoesophageal segment opening was completely distended for complete duration with no obstruction of bolus flow. Tongue base retraction allowed a trace column of contrast or air between the retracted tongue base and the posterior pharyngeal wall. Pharyngeal residue was a trace within or on pharyngeal structures. Esophageal clearance in the upright position could not be assessed due to logistical reasons not related to physiologic impairment. Oral Impairment Score: 9 (absence of score, component 1) Pharyngeal Impairment Score: 4 (absence of score, component 13) Esophageal Impairment Score: --- (absence of score, component 17) Laryngeal Penetration and Aspiration: Penetration was observed in today's study. Thin Contrast entered the airway, remained above the vocal folds, and was ejected from the airway. ASSESSMENT: Clinician Assessment: This exam was conducted by the speech pathologist and the radiologist. Patient was standing for lateral view. He fed himself without difficulty and trialed the following consistencies: thin (via individual cup sips, sequential cup sips), puree, and mixed medium (mashed cookie in barium pudding). There was premature posterior escape with contrast pooling in the pyriform sinuses. Slow and disorganized chewing and mashing. Note piece meal deglutition pattern, with patient chewing bolus, swallowing partial bolus, before chewing and swallowing again. Slowed posterior lingual motion, with trace residue coating the tongue. Pharyngeal swallow trigger was delayed, initiated at the level of the pyriform sinuses. No evidence of nasopharyngeal reflux with this exam. There was complete elevation of the soft palate to the pharyngeal wall. Note partial laryngeal elevation and partial laryngeal vestibular closure. There was an episode of penetration when patient took sequential sips thin liquid. Trace amount of contrast entered the airway above the vocal folds and ejected with spontaneous throat clear. No further instances of penetration. No subsequent aspiration seen. There was trace residue on the tongue base and complete vallecular and pyriform clearing. Liquid Intake Recommendation: Thin Liquid Intake Strategies: Small Sips Dietary Recommendations: Chopped/Advanced (NDD3) Medication Administration: Whole with Puree Please contact the pharmacy regarding appropriate crushable or liquid drug formulations that are available whenever modified delivery is recommended. Compensatory Strategies Recommended: Sitting Upright (90 deg), Small Bites and Sips, Alternate Liquids/Solids, Rate of Ingestion Change, Avoid Specific Foods Supervision during eating and or drinking: None Needed Recommended Treatments: Compens. Strategy Educat. Recommendation for Speech Therapy: Inpatient Speech Therapy Text Comment: Intake Recommendations: Route: PO Diet Grade: Chopped/Advanced Liquid Consistencies: Thin Post-Study Functional Oral Intake Scale (FOIS): 5- Total oral intake of multiple consistencies requiring special preparation Patient presents with mild oropharyngeal dysphagia, characterized by slowed mastication and presence of trace lingual residue secondary to edentulous status, premature posterior escape, delayed swallow trigger, and partial laryngeal vestibular closure. There was trace penetration when patient took rapid sips of thin liquid, which cleared with a spontaneous throat clear. This was not repeated on subsequent trials when patient took individual sips. No evidence of aspiration during this exam. No evidence of nasopharyngeal reflux. Overall good pharyngeal clearance. Recommend patient continue on Chopped/Advanced (NDD3) diet or alternately self-select foods which are soft and easy to chew d/t edentulous status, and Thin Liquids. Strategies recommended to promote oral clearance: take small bites, chew food well, and alternate with sips of liquid. Therapy Recommendations: Findings were discussed with the patient after the exam. [employer] SUPERVISOR to f/u 1-2x for further education RE: MBSS results, compensatory strategies The following compensatory strategies and/or therapeutic exercises will be part of the upcoming therapy/management plan: Throat Clear Short Term Goals: ? Education - The patient will verbalize/demonstrate understanding of the results of this evaluation, the above recommendations, and the swallowing guidelines. Frequency/Duration: 1-2 f/u Date Range for Service Requested: Timeline to reassess: PRN Clinician - Supplemental, Miscellaneous Communication: It is important to note MBSS objective studies are snapshots in time and Patient function might vary with factors such as time of day or concomitant medical conditions. For this reason, the final treatment plan for this patient should rest with their medical care team. Additional recommendations should be considered with the totality of the Patient in mind. Thank for the opportunity to participate in the care of this patient. If you have any questions about the content of this report, please contact the [facility] at [facility]. Education: Education regarding findings from today's study and plans for therapy were provided to Patient only through Verbal Instruction. Understanding was expressed by the Patient only. Regional Safety Manager Clinician/Clinical Fellow: No Supervisory Statement: N/A Speech Language Pathologist: Arlene Sarmiento M.A., [facility] SUPERVISOR
[2024-03-13 19:23] VITALS: BP 123/60; PULSE 84; RESP 17; TEMP 37.1; O2SAT 93
[2024-03-13] MEDS: Sennosides 8.6 MG TABLET 17.2 MG PO (20:27)
[2024-03-13] MEDS: Mirtazapine 15 MG TABLET PO (20:28)
[2024-03-13] MEDS: Famotidine 20 MG TABLET 40 MG PO (20:29)
[2024-03-14] MEDS: Ibuprofen 600 MG TABLET PO (02:08)
[2024-03-14 03:22] VITALS: BP 122/68; PULSE 80; RESP 18; TEMP 36.9; O2SAT 93
[2024-03-14 07:31] VITALS: BP 113/63; PULSE 71; RESP 16; TEMP 36.1; O2SAT 95
[2024-03-14] MEDS: Aspirin Enteric Coated 81 MG TABLET.DR PO (08:03)
[2024-03-14] MEDS: 0.9 % Sodium Chloride Flush 3 ML SYRINGE IVFLUSH (08:03)
[2024-03-14] MEDS: buPROPion HCl XL 150 MG TAB.ER.24H PO (08:03)
[2024-03-14] MEDS: QUEtiapine Fumarate 50 MG TABLET PO (08:03)
[2024-03-14] MEDS: Meropenem 1 GM VIAL IVPUSH (08:04)
[2024-03-14] MEDS: Fluticasone/Vilanterol 200/25 BLST.W.DEV 1 PUFF INHALE (08:09)
[2024-03-14 08:11] VITALS: PULSE 86; RESP 16; O2SAT 97
[2024-03-14] MEDS: methADONE HCl 20 MG/2 ML ORAL.CONC 125 MG PO (08:30)
[2024-03-14] MEDS: Acetaminophen 325 MG TABLET 650 MG PO (09:29)
--- NOTE | 2024-03-14 10:15 | PM.DS ---
DS: Providers Provider Date of Service: 03/14/24 Date of admission: 03/11/24 16:03 Date of discharge: 03/14/24 Primary care physician: Yesica Ibarra MD Consults: 03/11/24 15:04 Consult to Infectious Diseases Routine Consulting Provider: ROGELIO QUIGLEY Reason for consultation: 38 yo male polysubstance use, multifocal aspiration pneumonia, pen allergic Has provider been notified: No 03/12/24 09:15 Addiction Medicine Routine Consulting Provider: Addiction Covering Reason for consultation: Polysubstance use, positive utox screen DS: Diagnosis Discharge Diagnosis (1) Opioid use disorder, severe, in early remission: Status: Acute DS: Summary Hospital Course Hospital Course: admission hpi Chief Complaint: Shortness of breath, chest pain A 38-year-old male with morbid obesity, obstructive sleep apnea (TYSON) (non-compliant with CPAP), and substance use disorder presents with chest pain and shortness of breath (SOB) since yesterday, with symptoms persisting intermittently for some time. He reports difficulty swallowing (dysphagia), describing episodes where food feels misdirected, sometimes regurgitating through his nose. Yesterday, he had episodes of vomiting and felt hot and cold (possible fever/chills). CXR: Bronchial wall thickening, possibly infectious or inflammatory.. CT Chest: New mass-like consolidation in the left upper lobe (1.1 cm). Patchy opacities in the dependent portions of the left upper lobe, left lower lobe, and right lower lobe. Findings suggestive of multifocal pneumonia or aspiration pneumonia. Clinical Concerns:Aspiration pneumonia is suspected based on imaging and dysphagia symptoms and he is startedon Ertapenem. Hospital course: Aspiration pneumonia Patient described some dysphasia that has been ongoing for years which is likely contributing to aspiration pneumonia . He was treated with Ertapenema while in the hosptial with good effect. He presently does not have fever and WBC has been normal, along with cultures. GENERAL [employer]NAGER [employer] evaluated patient and he had MBS showing with the following Patient presents with mild oropharyngeal dysphagia, characterized by slowed mastication and presence of trace lingual residue secondary to edentulous status, premature posterior escape, delayed swallow trigger, and partial laryngeal vestibular closure. There was trace penetration when patient took rapid sips of thin liquid, which cleared with a spontaneous throat clear. This was not repeated on subsequent trials when patient took individual sips. No evidence of aspiration during this exam. No evidence of nasopharyngeal reflux. Overall good pharyngeal clearance. Recommend patient continue on Chopped/Advanced (NDD3) diet or alternately self-select foods which are soft and easy to chew d/t edentulous status, and Thin Liquids. Strategies recommended to promote oral clearance: take small bites, chew food well, and alternate with sips of liquid. Will discharge home with Clindamycin for a total of 7 days of antibiotics Patient has not demonstrated any furthe episode of aspirations while in the hospial . As for The 1.1 cm mass-like consolidation in the left upper, this will warrant further investigation if not clear by Abx. Patient is followed in the pulmonary clinic and will advise to follow up. Dysphagia :High suspicion for aspiration as a result of dysphagia.--Speech recommends chopped NDD3 diet, will also refer to outpatient GI clinic for further evaluation. TYSON Management: -CPAP at night Morbid obesity -Weight loss advised Opioid use d/o, substance use (+opioid, fentanyl,cocaine, and methadone) -methadone Anxiety--resume home meds Discharge plan discussed with patient and is comfortable with the plan Time Attestation Discharge Coordination Time (in mins): 45 Quality: Safe Use of Opioids Does Pt have an Active Cancer Diagnosis on the Problem List?: No Quality: Stroke Does the patient have a stroke diagnosis?: No Physical Exam Vital Signs: Vital Signs: Last Vital Signs Temp 97.0 F 03/14/24 07:31 Pulse 86 03/14/24 08:11 Resp 16 03/14/24 08:11 BP 113/63 03/14/24 07:31 Pulse Ox 95 03/14/24 07:31 O2 Del Method Room Air 03/14/24 07:31 BMI result Body Mass Index 41.8 DS: Data Data Completed and Pending Labs on day of discharge: Preliminary micro results at discharge 03/11/24 15:34 Blood Culture - Preliminary Blood - Venous No growth after 48 hours. 03/11/24 15:16 Blood Culture - Preliminary Blood - Venous No growth after 48 hours. Discharge Plan Discharge Anticipated Discharge Date/Time: 03/14/24 10:46 Patient Disposition: Home, Self-Care Discharge Diagnosis: Aspiration pneumonia Referrals: Laney Rodas MD [Physician] - 1 Week [facility] [Physician] - 1 Week Samantha Davis NP [Nurse Practitioner] - 2 Weeks Discharge Medications: New clindamycin HCl 300 mg Capsule 300 mg PO Q8H Qty: 11 0RF Continued fluticasone furoate-vilanterol [Breo Ellipta] 200-25 mcg/dose blister with device 1 inh inhalation DAILY Qty: 60 2RF acetaminophen 650 mg tablet extended release 650 mg PO Q8H PRN (Reason: moderate pain) polyethylene glycol 3350 [Miralax] 17 gram/dose powder 17 g PO DAILY PRN (Reason: Constipation) methadone [Methadone Intensol] 10 mg/mL Concentrate 125 mg PO DAILY quetiapine 50 mg tablet 50 mg PO BID aspirin 81 mg tablet,delayed release (DR/EC) 81 mg PO DAILY albuterol sulfate [Ventolin HFA] 90 mcg/actuation HFA aerosol inhaler 2 puff inhalation Q4H PRN (Reason: wheezing) bupropion HCl 150 mg tablet extended release 24 hr 150 mg PO DAILY mirtazapine 15 mg tablet 15 mg PO BEDTIME esomeprazole magnesium [Nexium] 40 mg capsule,delayed release(DR/EC) 40 mg PO DAILY Qty: 30 5RF sennosides [Natural Senna Laxative] 8.6 mg tablet 17.2 mg PO BEDTIME Qty: 180 1RF famotidine 40 mg tablet 40 mg PO BEDTIME 90 Days Qty: 90 3RF Discharge Orders: Discharge Order (Routine); Ordered 03/14/24 Ordered By: Jose Martin Aguiar Diet: Advance to usual diet Activity on Discharge: As tolerated Stand Alone Forms: Patient Portal Discharge page Print Language: Sinhala Care Plan Goals: recovery from aspiration pneumonia Health Concerns: aspiration pneumonia dysphagia a Plan of Treatment: take clindamycin as prescribed, follow up with your doctor in a week follow diet with chopped food Follow up with pulmonology and GI clinic for further evaluation into your lung condition and swallowing problems Assessment: see above Discharge Date/Time: 03/14/24 11:19
[2024-03-14] MEDS: Clindamycin HCL 300 MG CAPSULE PO (10:52)
--- NOTE | 2024-03-14 11:08 | MHC.CM.PN ---
PATIENT IS DC HOME - SELF CARE.
== END 2024-03-14 11:19 | disposition home or self-care (01) | DRG 137 ==
LOC: HO.ED 15:10 → HO.EDOVER 16:37 → HO.S3 17:46
PROVIDERS: Admitting Provider Internal Medicine; Emergency Provider Emergency Medicine Emergency Medical Services; PCP Student in an Organized Health Care Education/Training Program; Visit Provider Internal Medicine
DX: J69.0 Pneumonitis due to inhalation of food and vomit (principal); E66.01 Morbid (severe) obesity due to excess calories; R13.10 Dysphagia, unspecified; F41.9 Anxiety disorder, unspecified; R91.1 Solitary pulmonary nodule; Z68.41 Body mass index [BMI] 40.0-44.9, adult; F11.20 Opioid dependence, uncomplicated; G47.33 Obstructive sleep apnea (adult) (pediatric); Z20.822 Contact with and (suspected) exposure to COVID-19; Z91.199 Patient's noncompliance with other medical treatment and regimen due to unspecified reason; Z87.891 Personal history of nicotine dependence; Z79.51 Long term (current) use of inhaled steroids; Z79.899 Other long term (current) drug therapy
CPT/HCPCS: 0241U; 36415; 71045; 71275; 74230; 80048; 80053; 80307; 81003; 83605; 84484; 85025; 85027; 85379; 85730; 87040; 92610; 92611; 93005; 94640; 94660; 99285; J1335; J1650; J1885; J2060; J2185; J2470; J3370; Q9967

== ENCOUNTER → 2024-03-11 08:54 | Outpatient (BNV) | payer MEDICAID, SELFPAY | PROVIDERS: Admitting Provider Internal Medicine; Emergency Provider Emergency Medicine Emergency Medical Services; Visit Provider Internal Medicine Cardiovascular Disease | DX: R94.31 Abnormal electrocardiogram [ECG] [EKG] (principal) | CPT/HCPCS: 93010 ==

== ENCOUNTER 2024-03-11 16:03 | Outpatient (BNV) | payer MEDICAID, SELFPAY | END 2024-03-13 13:55 | PROVIDERS: Admitting Provider Internal Medicine; Emergency Provider Emergency Medicine Emergency Medical Services; PCP Student in an Organized Health Care Education/Training Program; Visit Provider Physician Assistant Surgical | DX: R13.10 Dysphagia, unspecified (principal) | CPT/HCPCS: 74230 ==

== ENCOUNTER → 2024-03-11 16:03 | Outpatient (BNV) | payer MEDICAID, SELFPAY | PROVIDERS: Admitting Provider Internal Medicine; Emergency Provider Emergency Medicine Emergency Medical Services; Visit Provider Nurse Practitioner Psychiatric/Mental Health | DX: F11.21 Opioid dependence, in remission (principal) | CPT/HCPCS: 99222 ==

== ENCOUNTER → 2024-03-11 16:03 | Outpatient (BNV) | payer MEDICAID, SELFPAY | PROVIDERS: Admitting Provider Internal Medicine; Emergency Provider Emergency Medicine Emergency Medical Services; Visit Provider Internal Medicine | DX: J69.0 Pneumonitis due to inhalation of food and vomit (principal); R13.10 Dysphagia, unspecified; E66.9 Obesity, unspecified; F11.90 Opioid use, unspecified, uncomplicated | CPT/HCPCS: 99223 ==

== ENCOUNTER 2024-03-27 09:41 | Outpatient (AMB) | payer MEDICAID, SELFPAY ==
--- NOTE | 2024-03-26 12:25 | MHC.OFFVIS ---
Vital Signs 03/27/24 09:44 Height 5 ft 7 in Weight 281 lb 1.43 oz BMI 44.0 BP 130/64 Blood Pressure Location Rt brachial Position Sitting Pulse 94 Pulse Source Pulse Oximeter Pulse Oximetry (%) 92 Oxygen Delivery Method Room Air Intake Visit Reasons: Dyspnea Allergies Penicillins [PENICILLINS] Allergy (Unknown, Verified 03/27/24 09:48) RASH HPI HPI Dyspnea: Details: Yaniv is a pleasant 38 year old male, former smoker with 20 pack year history, quit 2 years ago with underlying h/o substance abuse maintained on methadone and GERD. At baseline, he has been moderately controlled on Breo 200 mcg and albuterol MDI PRN, continues to report intermittent dyspnea, wheezing and chest tightness, Since the last visit, he was admitted to [facility] [place] 03/11-03/14 for aspiration pneumonia. He presented to ED with increased dyspnea and dysphagia with associated emesis. CT revealed new mass-like consolidation in the left upper lobe (1.1 cm). Patchy opacities in the dependent portions of the left upper lobe, left lower lobe, and right lower lobe, suggestive of multifocal pneumonia or aspiration pneumonia. He was started on Ertapenem while in hospital, BC X2 negative and no leukocytosis. Of note tox screen + opioids, fentanyl, methadone, marijuana and cocaine. HYDRAULIC ASSEMBLER performed which revealed no aspiration however recommended changes to diet. He was discharged with clindamycin x 7 days. Today he reports initial improvements while on antibiotics however reports symptoms recurred with intermittent chest congestion, productive cough, feeling chills, denies fevers. Of note, he was initially started on CPAP therapy however returned equipment as he could not tolerate. There was note of nocturnal hypoxemia. He also reports having an upcoming appointment with ENT Wednesday. [facility], [facility] Medical History Polysubstance abuse No known health problems Social History (Reviewed 03/27/24 @ 09:48 by Radha Reinoso [facility]) Household Members: Family Housing: Condominium Do you presently have visiting nurse or other home services: No Alcohol intake: former Patient Tobacco Use Status: Former Tobacco user Substance Use Type: Marijuana service: No Review of Systems Const Denies fever(s), Denies headache(s) and Denies night sweats Eyes Denies dry eyes, Denies irritation and Denies itchy eyes ENT Reports Normal hearing present, Denies headache(s), Reports nasal congestion and Denies sore throat Card Denies chest pain, Denies chest pain at rest, Denies chest pain with activity, Denies claudication, Denies leg edema, Reports dyspnea on exertion, Denies orthopnea and Denies paroxysmal nocturnal dyspnea Resp Reports chest congestion, Reports cough, Denies excessive phlegm production, Denies pain on inspiration, Denies pain with cough, Reports dyspnea on exertion and Denies stridor Musc Denies myalgias Neuro Reports Normal hearing present and Denies headache(s) Nnamdi/Lymph Denies lymphadenopathy Aller/Immun Denies itchy eyes and Denies seasonal rhinorrhea Physical Exam Vital Signs: Last Vital Signs Pulse 94 03/27/24 09:44 BP 130/64 03/27/24 09:44 Pulse Ox 92 03/27/24 09:44 Oxygen Delivery Method Room Air 03/27/24 09:44 BMI result Body Mass Index 44.0 Const General: cooperative, no acute distress, well developed and alert Nutritional Appearance: obese Orientation/consciousness: patient oriented x3 Limitations: no limitations HEENT Head: Yes normal to inspection, Yes normocephalic and Yes atraumatic Ears: hearing grossly normal bilaterally and external ears normal Eyes General: appearance normal, both eyes and all related structures Eyelids: Yes eyelids normal Sclerae: sclerae normal EOM: EOMs intact bilaterally Neck Neck: Yes normal visual inspection and Yes no lymphadenopathy Lymphatic: no lymphadenopathy noted Chest Chest palpation & inspection: normal inspection of the chest Resp Effort & Inspection: normal respiratory effort, able to speak in complete sentences, no audible wheezes, no stridor, not tachypneic, no tripod positioning and no use of accessory muscles Auscultation: clear to auscultation bilaterally Cardio Jugular venous distension: no JVD Rate: regular rate Rhythm: regular rhythm Skin Other: warm, dry General skin exam: no rashes or lesions noted Neuro General: patient oriented x3 Cranial nerves: Yes Normal hearing present Cognition (Neuro): normal cognition Gait exam (Neuro): Normal gait present Extrem General: Yes normal to inspection, Yes capillary refill normal, Yes no clubbing, cyanosis or edema and Yes no pedal edema Psych Appearance: grossly normal and well kempt Mental Status: mental status grossly normal Speech and movement: Normal speech and movement present and Clear speech present Affect: Anxious affect present Attitude: cooperative Thought process: Normal thought process present Thought content: Normal thought content present Insight: Fair insight present (Psych) Judgement: Fair judgement present (Psych) Results Reviewed Results Reviewed: [address] [address] [address] Scan Report Signed Patient: Yaniv Gutierrez MR#: [id number] : 1985 Acct:[id number] Age/Sex: 38 / M ADM Date: 03/11/24 Loc: HO.ED Attending Dr: Ordering Physician: Les Blanchard MD Date of Service: 03/11/24 Procedure(s): CT angio chest PE protocol Accession Number(s): [id number] cc: [facility]; Les Blanchard MD~ EXAMINATION: CT ANGIOGRAM OF THE CHEST WITH AND WITHOUT CONTRAST (CT PULMONARY ANGIOGRAM FOR PE) CLINICAL INFORMATION: Left pleuritic chest pain elevated D-dimer R/O PE COMPARISON: CT chest without contrast December 17, 2023 TECHNIQUE: Prior to contrast administration, noncontrast localization images were obtained. Subsequently, multidetector volumetric imaging was performed from the thoracic inlet to below the diaphragms following the administration of 100 mL Omnipaque 350 intravenous contrast. No contrast reaction reported. Sagittal, coronal, and MIP oblique sagittal reformatted images were obtained on the CT workstation, uploaded to PACS, and reviewed. Total exam dose-length product 545 mGy-cm FINDINGS: QUALITY OF STUDY/CONTRAST BOLUS: Suboptimal. PULMONARY ARTERIES: No central or segmental pulmonary emboli. THORACIC AORTA: No aneurysm or dissection. LUNG: New masslike consolidation in the left upper lobe measuring 1.1 cm (6:26). Patchy opacities in the dependent portions of the left upper lobe, left lower lobe, and right lower lobe. Unchanged 4 mm nodule in the left lower lobe adjacent to the fissure. PLEURA: No pleural effusion or pneumothorax. MEDIASTINUM: Normal heart size. No pericardial effusion. No hilar or mediastinal lymphadenopathy. No evidence of septal bowing or right heart strain. CHEST WALL/AXILLA: No axillary or internal mammary lymphadenopathy. OSSEOUS STRUCTURES: No acute or suspicious osseous abnormality. UPPER ABDOMEN: Unremarkable. No reflux of contrast into the hepatic veins to suggest elevated right heart pressures. CT/CT angio chest PE protocol IMPRESSION: 1. No central or segmental pulmonary emboli. 2. New masslike consolidation in the left upper lobe measuring 1.1 cm. Patchy opacities in the dependent portions of the left upper lobe, left lower lobe, and right lower lobe. Findings are concerning for multifocal pneumonia or aspiration. Recommend short interval follow up for the left upper lobe lesion to ensure no underlying mass. VTE: negative. Electronically signed by: Rajinder Mosquera MD 03/11/2024 02:48 PM EST Dictated By: Rajinder Mosquera MD Signed By: <Electronically signed by Rajinder Mosquera MD in OV> 03/11/24 1448 DD/ 1318 TD/TT: 03/11/24 1328 Manager Forensic: Assessment & Plan Assessment & Plan (1) Asthma: Code(s): J45.909 - Unspecified asthma, uncomplicated Category: Medical (2) Dyspnea on exertion: Code(s): R06.09 - Other forms of dyspnea Category: Medical (3) History of recent pneumonia: Code(s): Z87.01 - Personal history of pneumonia (recurrent) Category: Medical (4) Nocturnal hypoxemia: Code(s): G47.34 - Idiopathic sleep related nonobstructive alveolar hypoventilation Category: Medical Plan At baseline Yaniv reports moderate control of respiratory symptoms with Breo 200 mcg and albuterol MDI PRN, advised to continue. He continues to report bronchitic symptoms, initially improved on antibiotics, will send in doxycyline.He is aware to call if symptoms do not improve. Reviewed chest CT which revealed new 1.1 cm masslike consolidation of SIERRA and multifocal PNA. Will repeat in 6-8 weeks to assess resolution. Patient noted paroxsymal nocturnal dyspnea and significant day time fatigue, could not tolerate CPAP therapy. Prior home sleep study did reveal nocturnal hypoxemia, will send order for 1L supplemental oxygen at [facility]. Once established will send for overnight oximetry to ensure resolution. All questions were answered and patient is in agreement of plan. Will follow-up in three months or sooner if needed. Orders: Orders CT chest wo IV con 6 Weeks Z87.01 - Personal history of pneumonia (recurrent) Medications: New doxycycline hyclate 100 mg PO BID 20 caps 0RF Refilled fluticasone furoate-vilanterol 200-25 mcg/dose (Breo Ellipta) 1 inh inhalation DAILY 60 ea 2RF Coding Level of Care Code Est Pt Level 4 (07104) Diagnoses Asthma J45.909 Dyspnea on exertion R06.09 History of recent pneumonia Z87.01 Nocturnal hypoxemia G47.34
[2024-03-27 09:44] VITALS: BP 130/64; PULSE 94; O2SAT 92; BMI 44.0
== END 2024-03-27 10:17 | disposition home or self-care (01) ==
PROVIDERS: PCP Nurse Practitioner Family; Visit Provider Nurse Practitioner Family
DX: J45.909 Unspecified asthma, uncomplicated (principal); R06.09 Other forms of dyspnea; Z87.01 Personal history of pneumonia (recurrent); G47.34 Idiopathic sleep related nonobstructive alveolar hypoventilation
CPT/HCPCS: 99214

== ENCOUNTER → 2024-03-27 09:41 | Outpatient (BNVA) | payer MEDICAID, SELFPAY | PROVIDERS: PCP Nurse Practitioner Family; Visit Provider Nurse Practitioner Family | DX: J45.909 Unspecified asthma, uncomplicated (principal); R06.09 Other forms of dyspnea; G47.34 Idiopathic sleep related nonobstructive alveolar hypoventilation; Z87.01 Personal history of pneumonia (recurrent) | CPT/HCPCS: 99212 ==

== ENCOUNTER 2024-03-27 11:55 | Outpatient (REF) | payer MEDICAID, SELFPAY ==
[2024-04-04 10:43] LABS: Pancreatic Elastase-1 <10 mcg/g (>200)
== END 2024-03-27 11:56 | disposition home or self-care (01) ==
LOC: HO.LNP 11:55
PROVIDERS: Visit Provider Nurse Practitioner Family
DX: R10.9 Unspecified abdominal pain (principal)
CPT/HCPCS: 82656

== ENCOUNTER 2024-04-14 11:46 | Outpatient (AMB) | payer MEDICAID, SELFPAY ==
[2024-04-14 11:50] VITALS: BP 108/64; PULSE 98; O2SAT 92; BMI 44.1
--- NOTE | 2024-04-14 11:50 | A.OFFVIS_ITS ---
Vital Signs 04/14/24 11:50 Height 5 ft 7 in Weight 281 lb 4.957 oz BMI 44.1 BP 108/64 Blood Pressure Location Rt brachial Position Sitting Pulse 98 Pulse Source Pulse Oximeter Pulse Oximetry (%) 92 Oxygen Delivery Method Room Air Intake Visit Reasons: 3 month follow up Intake Note: ESTABLISHED PATIENT Reason; 3 mo. Changes/concerns? Labs done. Pt recently hospitalized for URI/Pneumonia. Allergies Penicillins [PENICILLINS] Allergy (Unknown, Verified 04/14/24 11:50) RASH HPI HPI 3 month follow up: Details: LAST VISIT: GERD (gastroesophageal reflux disease) Epigastric abdominal pain Constipation Hiatal hernia Plan Increase fluid intake and activity to promote better bowel motility. Patient will continue taking Nexium in the morning and famotidine at bedtime. Patient was encouraged to eat small meals and more often. Patient will try to eat food that is high in protein, low-salt low carbs. Pancreatic atrophy seen on CT scan. Will send patient to rule out pancreatic insufficiency. We will repeat neither testing to evaluate pancreas and liver with possible MRI next visit. Overall patient is doing much better. He is committed to losing weight and working on eating better. Discussed with patient also low FODMAP diet as he reports to be bloated frequently when eating certain food. I do not recommend GLP1 as patient does have a pancreatic insufficiency. Patient will try to exercise daily now that he is doing better with Breo Ellipta and is able to tolerate more exercise. I will see patient in 2-3 months, sooner on as needed basis. He is agreeable to this plan and verbalizes understanding of instructions. He was given the opportunity to ask questions and all questions answered. Spent time with patient educating him about diet, exercise. We discuss low FODMAP diet list of food recommended as well as list of food to provide was given to patient. Thank you for allowing me to participate in his care Orders Orders Alpha Fetoprotein Today R79.89 Ceruloplasmin Today R79.89 Pancreatic Elastase-1 Today R10.9 Smooth Muscle Antibody Today R79.89 C Reactive Protein Today K58.9 TSH reflex Free T4 Today K59.00 Mitochondrial Antibody Today R79.89 Medications Refilled esomeprazole magnesium (Nexium) 40 mg PO DAILY 30 caps 5RF K21.9 famotidine 40 mg PO BEDTIME 90 days 90 tabs 3RF K21.9 sennosides (Natural Senna Laxative) 17.2 mg (2 x 8.6 mg) PO BEDTIME 180 tabs 1RF constipation K59.00 Discontinued dicyclomine Discontinued Reason: Doctor's Order 20 mg PO TID 20 tabs 0RF sucralfate Discontinued Reason: Doctor's Order 1 g PO BEDTIME 30 tabs 1RF R19.7 TODAY'S VISIT Patient is here today for follow-up. Patient is accompanied by his mother. Patient was admitted to the hospital last month in March for aspiration pneumonia. Patient still occasionally uses cocaine and heroin. Follows up with general supervisor on a regular basis. Since last admission patient reports to be feeling better. Occasional postprandial abdominal bloating and abdominal pain. He is taking Creon with meals as ordered. Still is eating large meals. We have discuss this before about eating smaller meals and avoiding dietary triggers. Patient denies any nausea or vomiting. Denies any dyspepsia, dysphagia or odynophagia. Denies melena, hematochezia, unintentional weight loss or ribbon like stools. Patient reports that Nexium and famotidine suppressed his symptoms of nausea and vomiting. [facility] Medical History (Updated 04/23/24 @ 19:31 by Kendra Fine [facility]) Exocrine pancreatic insufficiency Polysubstance abuse No known health problems Social History (Reviewed 04/14/24 @ 11:55 by Aroldo Oliva [facility]) Household Members: [facility] Do you presently have visiting nurse or other home services: No Alcohol intake: former Patient Tobacco Use Status: Former Tobacco user Substance Use Type: Marijuana service: No Review of Systems Const Denies weight gain and Denies weight loss ENT Reports no additional complaints, Denies dysphagia and Denies odynophagia Card Reports no additional complaints Resp Reports no additional complaints GI Reports abdominal pain, Denies belching, Denies melena, Reports bloating, Denies change in bowel habits, Reports constipation, Denies dysphagia, Denies excessive flatus, Denies dyspepsia, Reports heartburn (Improved), Denies diarrhea, Denies loose stools, Denies nausea, Denies odynophagia and Denies vomiting Reports no additional complaints Musc Reports no additional complaints Neuro Reports no additional complaints Psych Reports no additional complaints Endo Reports no additional complaints Physical Exam Vital Signs: Last Vital Signs Pulse 98 04/14/24 11:50 BP 108/64 04/14/24 11:50 Pulse Ox 92 04/14/24 11:50 Oxygen Delivery Method Room Air 04/14/24 11:50 BMI result Body Mass Index 44.1 Const General: cooperative, healthy appearing, comfortable and no acute distress Nutritional Appearance: obese Orientation/consciousness: patient oriented x3 Neck Neck: Yes normal visual inspection, Yes full ROM and Yes trachea midline Resp Effort & Inspection: normal respiratory effort, able to speak in complete sentences, no tracheal deviation and symmetric chest movement Auscultation: clear to auscultation bilaterally Cardio Rate: regular rate GI Inspection: Yes normal to inspection and No distended Palpation (GI): Soft to palpation, not firm, nontender and No hepatosplenomegaly present Auscultation: normal bowel sounds General: Yes no CVA tenderness Back/Spine/Pelvis Back: no CVA tenderness Skin General skin exam: elasticity normal, turgor normal and dry skin Neuro General: patient oriented x3 Psych Appearance: grossly normal Mental Status: mental status grossly normal Results Reviewed Results Reviewed: Laboratory Tests 01/05/24 01/14/24 03/11/24 19:15 12:00 09:09 AST 16 57 H ALT 17 31 Alkaline Phosphatase 91 92 C-Reactive Protein 2.51 H Ceruloplasmin 31 H Alpha Fetoprotein 2.1 TSH 2.46 Stool Pancreat Elastase Anti-Mitochondrial Ab NEGATIVE Anti-Smooth Muscle Ab <20 03/12/24 03/27/24 06:03 08:42 AST 38 H ALT 25 Alkaline Phosphatase 83 C-Reactive Protein Ceruloplasmin Alpha Fetoprotein TSH Stool Pancreat Elastase <10 L Anti-Mitochondrial Ab Anti-Smooth Muscle Ab Assessment & Plan Assessment & Plan (1) GERD (gastroesophageal reflux disease): Code(s): K21.9 - Gastro-esophageal reflux disease without esophagitis Qualifiers: Esophagitis presence: esophagitis presence not specified Qualified Code(s): K21.9 - Gastro-esophageal reflux disease without esophagitis (2) Epigastric abdominal pain: Code(s): R10.13 - Epigastric pain (3) Constipation: Code(s): K59.00 - Constipation, unspecified Qualifiers: Constipation type: chronic idiopathic constipation Qualified Code(s): K59.04 - Chronic idiopathic constipation (4) Hiatal hernia: Code(s): K44.9 - Diaphragmatic hernia without obstruction or gangrene (5) Exocrine pancreatic insufficiency: Code(s): K86.81 - Exocrine pancreatic insufficiency Category: Medical Plan Patient will continue avoiding dietary triggers. Avoid late night snacking. Encouraged to chew slowly. Staying upright for minimum 3 hours after meals discussed with patient. MRI ordered to evaluate his pancreas and liver. Continue esomeprazole in the morning and famotidine at bedtime. Increase fluid intake and activity to promote better bowel motility. Again discussed with patient weight loss. Patient will follow-up in 3 months, sooner on as needed basis. He is agreeable to this plan and verbalizes understanding of instructions. He was given the opportunity to ask questions and all questions answered. Thank you for allowing me to participate in his care Orders: Orders abdomen wo/w con 04/14/24 K86.81 - Exocrine pancreatic insufficiency, K86.89 - Other specified diseases of pancreas Medications: New magnesium oxide 400 mg PO BEDTIME 30 caps 2RF K59.04 - Chronic idiopathic constipation Coding Level of Care Code Est Pt Level 4 (71511) Complex EM visit Add On G2211 Diagnoses Gastroesophageal reflux disease, unspecified whether esophagitis present K21.9 Esophagitis presence: esophagitis presence not specified Epigastric abdominal pain R10.13 Chronic idiopathic constipation K59.04 Constipation type: chronic idiopathic constipation Hiatal hernia K44.9 Exocrine pancreatic insufficiency K86.81 Time Spent (min) 40 Comment 25 minutes spent with patient and additional 15 minutes spent reviewing his records
== END 2024-04-14 16:28 | disposition home or self-care (01) ==
PROVIDERS: PCP Nurse Practitioner Family; Visit Provider Nurse Practitioner Family
DX: K21.9 Gastro-esophageal reflux disease without esophagitis (principal); R10.13 Epigastric pain; K59.04 Chronic idiopathic constipation; K44.9 Diaphragmatic hernia without obstruction or gangrene; K86.81 Exocrine pancreatic insufficiency
CPT/HCPCS: 99214

== ENCOUNTER → 2024-04-14 11:46 | Outpatient (BNVA) | payer MEDICAID, SELFPAY | PROVIDERS: PCP Nurse Practitioner Family; Visit Provider Nurse Practitioner Family | DX: K21.9 Gastro-esophageal reflux disease without esophagitis (principal); K59.04 Chronic idiopathic constipation; K44.9 Diaphragmatic hernia without obstruction or gangrene; K86.81 Exocrine pancreatic insufficiency; R10.13 Epigastric pain | CPT/HCPCS: 99212 ==

== ENCOUNTER 2024-05-12 09:01 | Outpatient (REF) | payer MEDICAID, SELFPAY ==
--- OUTSIDE RECORDS SUMMARY | 2024-05-12 09:24 | XMS_ITS | Clinical Summary ---
Author Organization [facility] Address [address] [place] [address] Phone Care Team Providers Care Head Of Conservation Name Role Phone Az Terrell Primary Care Provider [phone] Immunizations Immunization Administration Dates Next Due DTP 06/02/1998, 8,11/02/1992,1989,1987 Hep B, ped/adol 10/27/1999,06/25/1999,05/27/1999 Hib (PRP-T) 07/03/1989 IPV 11/02/1997,11/02/1992,07/03/1989 MMR 05/27/1999,11/02/1998 OPV 1987 Td (adult) (MBL), 2 Lf tetan us toxoid, PF, adsorbed 05/27/1999 Social History Tobacco Use Types Packs/Day Years Used Date Smoking Tobacco: Never Assessed Sex and Gender Information Value Date Recorded Sex Assigned at Not on file Legal Sex Male 4:11 PM EDT Gender Identity Not on file Sexual Orientation Not on file Plan of Treatment Health Maintenance Due Date Last Done Comments Varicella Vaccines (1 of 2 - 13+ 2-dose series) 06/23/2000 DTaP,Tdap,and Td Vaccines (7 - Tdap) 05/27/2009 05/27/1999, 06/02/1998, 11/02/1997, Additional history exists Influenza Vaccines (#1) 2023 COVID-19 Vaccine (2023- season) 2023 HIB Vaccines Completed 07/03/1989 IPV Vaccines Completed 11/02/1997, 0704/1992, 07/03/1989, Additional history exists MMR Vaccines Completed 05/27/1999, 11/02/1998 Hepatitis B Vaccines Completed 10/27/1999, 06/25/1999, 05/27/1999 HPV Vaccines Aged Out No longer eligi ble based on patient's age to complete this topic Hepatitis A Vaccines Aged Out No long er eligible based on patient's age to complete this topic Men B Vaccine Aged Out No longer elig ible based on patient's age to complete this topic Meningococcal Vaccine Aged Out No lulu jun eligible based on patient's age to complete this topic Pneumococcal Vaccine Aged Out No long er eligible based on patient's age to complete this topic Care Teams Head Of Conservation Relationship Specialty Start Date End Date Az Terrell [address] [place] [id number] PCP - General 11/13/16
--- OUTSIDE RECORDS SUMMARY | 2024-05-12 09:24 | XMS_ITS | Encounter Summary ---
Author Organization [employer] Address [address] [place] [address] Care Team Providers Care Hospitality Ambassador Name Role Phone Roma Bender Primary Care Provider [phone] Neetu Bah Unavailable [phone] Lesia Tran MD Primary Care Provider + Encounter Details Date Type Department Care Team (Late st Contact Info) Description 02/19/2023 Orders Only [facility] [address] [place] [address] Roma Bender FNP [address] [place] [address] Other acute gastritis, presence of bleeding unspecified (Primary Dx) Social History Tobacco Use Types Packs/Day Years Used Date Smoking Tobacco: Former Cigarettes 0.3 0.5 Passive Smoke Exposure: Past Smokeless Tobacco: Former Alcohol Use Standard Drinks/Week Comments Defer 0 (1 standard drink = 0.6 oz pur e alcohol) Depression Answer Date Recorded Patient Health Questionnaire-9 Score 11 01/13/2023 Housing Stability Answer Date Recorded What is your housing situation today? I have amando das 01/27/[address] you li ve. Do you have problems with any of the following? None of the above 01/27/2023 Food Insecurity Answer Date Recorded Within the past 12 months, y ou worried that your food would run out before you got money to buy more: Never True 01/27/2023 Within the past 12 months,th e food you bought just didn't last and you didn't have enough money to get more: Never True Transportation Answer Date Recorded In the past 12 months, has l ack of transportation kept you from medical appts, meetings, work or from getting things needed for daily living? No 01/27/2023 Utilities Answer Date Recorded In the past 12 months, has t he electric, gas, oil or water company threatened to shut off services in your home? No 01/27/2023 Depression Answer Date Recorded Patient Health Questionnaire-2 Score 6 01/13/2023 Sex and Gender Information Value Date Recorded Sex Assigned at Male 02/02/2022 10:26 AM EDT Legal Sex Male 10:26 AM EDT Gender Identity Male 02/02/2022 10:26 AM EDT Sexual Orientation Choose not to disclose 2021 10:26 AM EDT documented as of this encounter Plan of Treatment Upcoming Encounters Date Type Department Care Team (Late st Contact Info) Description 06/02/2024 10:00 AM EST Office Visit [facility] [address] [place] [phone] Trenton Wilkerson DDS [address] [place] [address] 06/15/2024 11:30 AM EDT Office Visit [facility] [address] [place] [address] Lesia Tran MD [address] [place] [address] documented as of this encounter Visit Diagnoses Diagnosis Other acute gastritis, presence of bleeding unspecified- Primary documented in this encounter Additional Health Concerns Assessment Noted Time PHQ-9 Depression Total Score: 11 023 3:14 PM EDT documented as of this encounter Care Teams Hospitality Ambassador Relationship Specialty Start Date End Date Roma Bender FNP [address] [place] [address] PCP - General Family Medicine 01/14/23 12/06/23 Lesia Tran MD [address] [place] [address] PCP - General Internal Medicine 12/07/23 Neetu Bah AGNP [address] [place] [address] Family Medicine 01/14/23 09/02/23 documented as of this encounter
== END 2024-05-12 09:02 | disposition home or self-care (01) ==
LOC: HO.CT 09:01
PROVIDERS: PCP Nurse Practitioner Family; Visit Provider Nurse Practitioner Family
DX: Z87.01 Personal history of pneumonia (recurrent) (principal)

== ENCOUNTER → 2024-05-12 09:03 | Outpatient (BNV) | payer MEDICAID, SELFPAY | PROVIDERS: PCP Nurse Practitioner Family; Visit Provider Radiology Diagnostic Radiology | DX: J18.9 Pneumonia, unspecified organism (principal) | CPT/HCPCS: 71250 ==

== ENCOUNTER 2024-05-15 15:01 | Outpatient (REF) | payer MEDICAID, SELFPAY ==
--- OUTSIDE RECORDS SUMMARY | 2024-05-15 16:11 | XMS_ITS | Encounter Summary ---
Author Organization [employer] Address [address] [place] [address] Care Team Providers Care Endoscopy Support Specialist Name Role Phone Lesia Tran MD Primary Care Provider + Reason for Visit * Reason Onset Date Comments Results: Chest CT 05/12/24 05/12/2024 Encounter Details Date Type Department Care Team (Late st Contact Info) Description 05/12/2024 Telephone [facility] [address] [place] [address] Bobbi Deal, ROXANN Results: Chest CT 05/12/24 Social History Tobacco Use Types Packs/Day Years Used Date Smoking Tobacco: Former Cigarettes 0.3 0.5 Passive Smoke Exposure: Past Smokeless Tobacco: Former Alcohol Use Standard Drinks/Week Comments Defer 0 (1 standard drink = 0.6 oz pur e alcohol) Depression Answer Date Recorded Patient Health Questionnaire-9 Score 21 06/10/2023 Patient Health Questionnaire-9 Score 21 06/10/2023 Last PHQ-9: Questionnaire Data Not on file 0 06/10/2023 Housing Stability Answer Date Recorded What is your housing situation today? I have amando das 02/02/[address] you li ve. Do you have problems with any of the following? None of the above 02/02/2024 Food Insecurity Answer Date Recorded Within the past 12 months, y ou worried that your food would run out before you got money to buy more: Never True 02/02/2024 Within the past 12 months,th e food you bought just didn't last and you didn't have enough money to get more: Never True Transportation Answer Date Recorded In the past 12 months, has l ack of transportation kept you from medical appts, meetings, work or from getting things needed for daily living? No 02/02/2024 Utilities Answer Date Recorded In the past 12 months, has t he electric, gas, oil or water company threatened to shut off services in your home? No 02/02/2024 Depression Answer Date Recorded Patient Health Questionnaire-2 Score 0 02/11/2024 Internet Access Answer Date Recorded Internet Access Q1 Yes 02/02/2024 Internet Access Q2 Not on file 02/02/2024 Sex and Gender Information Value Date Recorded Sex Assigned at Male 02/02/2022 10:26 AM EDT Legal Sex Male 10:26 AM EDT Gender Identity Male 02/02/2022 10:26 AM EDT Sexual Orientation Choose not to disclose 2021 10:26 AM EDT documented as of this encounter Miscellaneous Notes * Telephone Encounter - Bobbi Deal RN - 05/12/2024 11:[address] results found in Dave' mail box. Forwarded to PCP :Dr. Tran 05/12/[address] Ordered by Selene Davis NP Pulmonolgy @ [facility] CT Scan Report Signed Patient: Yaniv Gutierrez MR#: [id number] : 1985 Acct:[id number] Age/Sex: 38 / M ADM Date: 05/12/24 Loc: HO.CT Attending Dr: Samantha Davis FABRICATOR SPECIAL ITEMS Ordering Physician: Samantha Davis NP Date of Service: 05/12/24 Procedure(s): CT chest wo IV con Accession Number(s): [id number] cc: Roma Bender NP; Samantha Davis NP~ IMPRESSION: Multifocal pneumonia versus pneumonitis, similar morphology pattern since prior exam. Fleischner guidelines were followed. Electronically signed by: Tyrese Chase MD 05/12/2024 09:[address] readin03/11/25 IMPRESSION: 1. No central or segmental pulmonary emboli. 2. New masslike consolidation in the left upper lobe measuring 1.1 cm. Patchy opacities in the dependent portions of the left upper lobe, left lower lobe, and right lower lobe. Findings are concerning for multifocal pneumonia or aspiration. Recommend short interval follow up for the left upper lobe lesion to ensure no underlying mass. VTE: negative. Electronically signed by: Rajinder Mosquera MD 03/11/2024 02:48 PM EST RP Last pulmonolgy note [facility] 03/27/25 [facility] [address] [place] [phone] Patient: Yaniv Gutierrez MR#: [id number] : 1985 Acct:[id number] Age/Sex: 38 / M ADM/SER Date: 03/27/24 Loc: [facility] ADM/SER Time:940 >> Attending Provider: Samantha Davis NP 09:44 Height 5 ft 7 in Weight 281 lb 1.43 oz BMI 44.0 BP 130/64 Blood Pressure Location Rt brachial Position Sitting Pulse 94 Pulse Source Pulse Oximeter Pulse Oximetry (%) 92 Oxygen Delivery Method Room Air Visit Reasons: Dyspnea Allergies Penicillins [PENICILLINS] Allergy (Unknown, Verified 03/27/24 09:48) RASH Dyspnea: Details: Yaniv is a pleasant 38 year old male, former smoker with 20 pack year history, quit 2 years ago withunderlying h/o substance abuse maintained on methadone and GERD. At baseline, he has been moderately controlled on Breo 200 mcg and albuterol MDI PRN, continues to report intermittent dyspnea, wheezing and chest tightness, Since the last visit, he was admitted to [facility] 03/11-03/14 for aspiration pneumonia. He presented to ED with increased dyspnea and dysphagia with associated emesis. CT revealed new mass-like consolidation in the left upper lobe (1.1 cm). Patchy opacities in the dependent portions of the left upper lobe, left lower lobe, and right lower lobe, suggestive of multifocal pneumonia or aspiration pneumonia. He was started on Ertapenem while in hospital, BC X2 negative and no leukocytosis. Of note tox screen + opioids, fentanyl, methadone, marijuana and cocaine. BEAN PICKER MACHINE OPERATOR performed which revealed no aspiration however recommended changes to diet. He was discharged with clindamycin x 7days. Today he reports initial improvements while on antibiotics however reports symptoms recurred with intermittent chest congestion, productive cough, feeling chills, denies fevers. Of note, he wasinitially started on CPAP therapy however returned equipment as he could not tolerate. There was note of nocturnal hypoxemia. He also reports having an upcoming appointment with ENT Wednesday. documented in this encounter Plan of Treatment Upcoming Encounters Date Type Department Care Team (Late st Contact Info) Description 06/02/2024 10:00 AM EST Office Visit [facility] [address] [place], [place] [phone] Trenton Wilkerson DDS [address] [place], [place] [phone] 06/15/2024 11:30 AM EDT Office Visit [facility] [address] [place], [place] [phone] Lesia Tran MD [address] [place], [place] [phone] documented as of this encounter Visit Diagnoses Not on filedocumented in this encounter Additional Health Concerns Assessment Noted Time PHQ-9 Depression Total Score: 21 024 2:23 PM EST documented as of this encounter Care Teams Endoscopy Support Specialist Relationship Specialty Start Date End Date Lesia Tran MD [address] [place] [address] PCP - General Internal Medicine 12/07/23 documented as of this encounter
--- OUTSIDE RECORDS SUMMARY | 2024-05-15 16:11 | XMS_ITS | Clinical Summary ---
Author Organization [facility] Address [address] [place] [address] Phone Care Team Providers Care Auto Mechanic Supervisor Name Role Phone Az Terrell Primary Care Provider [phone] Immunizations Immunization Administration Dates Next Due DTP [...] age to complete this topic Care Teams Auto Mechanic Supervisor Relationship Specialty Start Date End Date Az Terrell [address] [place] [id number] PCP - General 11/13/16
--- OUTSIDE RECORDS SUMMARY | 2024-05-15 16:11 | XMS_ITS | Encounter Summary ---
Author Organization [employer] Address [address] [place] [address] Care Team Providers Care House Wrecker Name Role Phone Lesia Tran MD Primary Care Provider + Reason for Visit * Reason Comments Med Refill Encounter Details Date Type Department Care Team (Late st Contact Info) Description 04/17/2024 Refill [facility] [address] [place] [address] Lesia Tran MD [address] [place] [address] Social History Tobacco Use Types Packs/Day Years [...] Description 06/02/2024 10:00 AM EST Office Visit [facility] [address] [place] [address] Trenton Wilkerson DDS [address] [place] [address] 06/15/2024 11:30 AM EDT Office Visit [facility] [address] [place] [address] Lesia Tran MD [address] [place] [address] documented as of this encounter Visit Diagnoses Not on filedocumented in this encounter Additional Health Concerns Assessment Noted Time PHQ-9 Depression Total Score: 21 024 2:23 PM EST documented as of this encounter Care Teams House Wrecker Relationship Specialty Start Date End Date Lesia Tran MD [address] [place] [address] PCP - General Internal Medicine 12/07/23 documented as of this encounter
--- OUTSIDE RECORDS SUMMARY | 2024-05-15 16:11 | XMS_ITS | Encounter Summary ---
Author Organization [email or web address] Address [address] [facility] 7t [place] [address] Care Team Providers Care Vocational Psychologist Name Role Phone Neetu Bah Primary Care Provider Roma Bender Primary Care Provider [phone] Neetu Bah Unavailable [phone] Lesia Tran MD Primary Care Provider + Encounter Details Date Type Department Care Team (Late st Contact Info) Description 09/28/2022 Abstract [facility] ADULT DENTAL [address] [place] [address] Trenton Wilkerson DDS [address] [place] [address] Social History Tobacco Use Types Packs/Day Years Used Date Smoking Tobacco: Former Cigarettes 0.3 0.5 Passive Smoke Exposure: Past Smokeless Tobacco: Former Alcohol Use Standard Drinks/Week Comments Defer 0 (1 standard drink = 0.6 oz pur e alcohol) Sex and Gender Information Value Date Recorded Sex Assigned at Male 02/02/2022 10:26 AM EDT Legal Sex Male 10:26 AM EDT Gender Identity Male 02/02/2022 10:26 AM EDT Sexual Orientation Choose not to disclose 2021 10:26 AM EDT COVID-19 Exposure Response Date Recorded In the last 10 days, have yo u been in contact with someone who was confirmed or suspected to have Coronavirus/COVID-19? No / Unsure 09/25/2022 8:34 AM EDT documented as of this encounter Plan of Treatment Upcoming Encounters Date Type Department Care Team (Late st Contact Info) Description 06/02/2024 10:00 AM EST Office Visit [facility] ADULT DENTAL [address] [place] [address] Trenton Wilkerson DDS [address] [place] [address] 06/15/2024 11:30 AM EDT Office Visit [facility] MEDICINE [address] [place] [address] Lesia Tran MD 230 [place] [address] documented as of this encounter Visit Diagnoses Not on filedocumented in this encounter Care Teams Vocational Psychologist Relationship Specialty Start Date End Date Neetu Bah AGNP [address] [place] [address] PCP - General Family Medicine 11/28/20 01/13/23 Roma Bender FNP [address] [place] [address] PCP - General Family Medicine 01/14/23 12/06/23 Lesia Tran MD [address] [place] [address] PCP - General Internal Medicine 12/07/23 Neetu Bah AGNP [address] [place] [phone] Family Medicine 01/14/23 09/02/23 documented as of this encounter
--- OUTSIDE RECORDS SUMMARY | 2024-05-15 16:11 | XMS_ITS | Encounter Summary ---
Author Organization [employer] Address [address] [facility] 7t [place] [address] Care Team Providers Care Residential Solar Consultant Name Role Phone Neetu Bah Primary Care Provider Roma Bender Primary Care Provider [phone] Neetu Bah Unavailable [phone] Lesia Tran MD Primary Care Provider + Encounter Details Date Type Department Care Team (Late st Contact Info) Description 09/29/2022 Abstract [facility] ADULT DENTAL [address] [place] [address] Trenton Wilkerson DDS [address] [place] [address] Social History Tobacco Use Types Packs/Day Years [...] Description 06/02/2024 10:00 AM EST Office Visit [facility] ADULT DENTAL [address] [place] [address] Trenton Wilkerson DDS [address] [place] [address] 06/15/2024 11:30 AM EDT Office Visit [facility] MEDICINE [address] [place] [address] Lesia Tran MD [address] [place] [address] documented as of this encounter Visit Diagnoses Not on filedocumented in this encounter Care Teams Residential Solar Consultant Relationship Specialty Start Date End Date Neetu Bah AGNP [address] [place] [address] PCP - General Family Medicine 11/28/20 01/13/23 Roma Bender FNP [address] [place] [address] PCP - General Family Medicine 01/14/23 12/06/23 Lesia Tran MD [address] [place] [address] PCP - General Internal Medicine 12/07/23 Neetu Bah AGNP [address] [place] [address] Family Medicine 01/14/23 09/02/23 documented as of this encounter
--- OUTSIDE RECORDS SUMMARY | 2024-05-15 16:11 | XMS_ITS | Encounter Summary ---
Author Organization [employer] Address 75 [facility] 7t [place] [address] Care Team Providers Care Machine Setter Name Role Phone Neetu Bah Primary Care Provider Roma Bender Primary Care Provider [phone] Neetu Bah Unavailable [phone] Lesia Tran MD Primary Care Provider + Encounter Details Date Type Department Care Team (Late st Contact Info) Description 09/29/2022 Abstract [facility] ADULT DENTAL [address] [place] [address] Trenton Wilkerson DDS [address] [place] [address] Social History Tobacco Use Types Packs/Day Years [...] Description 06/02/2024 10:00 AM EST Office Visit [facility] ADULT DENTAL [address] [place] [address] Trenton Wilkerson DDS [address] [place] [address] 06/15/2024 11:30 AM EDT Office Visit [facility] MEDICINE [address] [place] [address] Lesia Tran MD [address] [place] [address] documented as of this encounter Visit Diagnoses Not on filedocumented in this encounter Care Teams Machine Setter Relationship Specialty Start Date End Date Neetu Bah AGNP [address] [place] [address] PCP - General Family Medicine 11/28/20 01/13/23 Roma Bender FNP [address] [place] [address] PCP - General Family Medicine 01/14/23 12/06/23 Lesia Tran MD [address] [place] [address] PCP - General Internal Medicine 12/07/23 Neetu Bah AGNP [address] [place] [address] Family Medicine 01/14/23 09/02/23 documented as of this encounter
--- OUTSIDE RECORDS SUMMARY | 2024-05-15 16:11 | XMS_ITS | Encounter Summary ---
Author Organization [employer] Address [address] [facility] [address] 7[address] [place] [address] Care Team Providers Care Ratchet Setter Name Role Phone Lesia Tran MD Primary Care Provider + Encounter Details Date Type Department Care Team (Latest Contact Info) Description 04/30/2024 Travel Social History Tobacco Use Types Packs/Day Years [...] Description 06/02/2024 10:00 AM EST Office Visit [facility] ADULT DENTAL [address] [place] [address] Trenton Wilkerson DDS 230 [place] [address] 06/15/2024 11:30 AM EDT Office Visit [facility] MEDICINE [address] [place] [address] Lesia Tran MD [address] [place] [address] documented as of this encounter Visit Diagnoses Not on filedocumented in this encounter Additional Health Concerns Assessment Noted Time PHQ-9 Depression Total Score: 21 024 2:23 PM EST documented as of this encounter Care Teams Ratchet Setter Relationship Specialty Start Date End Date Lesia Tran MD [address] [place] [address] PCP - General Internal Medicine 12/07/23 documented as of this encounter
--- OUTSIDE RECORDS SUMMARY | 2024-05-15 16:11 | XMS_ITS | Encounter Summary ---
Author Organization [employer] Address [address] [facility] [address] 7t [place] [address] Care Team Providers Care Aeronautical Engineering Teacher Name Role Phone Roma Bender Primary Care Provider [phone] Neetu Bah Unavailable [phone] Lesia Tran MD Primary Care Provider + Encounter Details Date Type Department Care Team (Late st Contact Info) Description 02/19/2023 Orders Only [facility] MED & PEDS [address] [place] [address] Roma Bender FNP [address] [place] [address] Other acute gastritis, presence of bleeding unspecified [...] Description 06/02/2024 10:00 AM EST Office Visit [facility] ADULT DENTAL [address] [place] [address] Trenton Wilkerson DDS [address] [place] [address] 06/15/2024 11:30 AM EDT Office Visit [facility] MEDICINE [address] [place] [address] Lesia Tran MD [address] [place] [address] documented as of this encounter Visit Diagnoses Diagnosis Other acute gastritis, presence of bleeding unspecified- Primary documented in this encounter Additional Health Concerns Assessment Noted Time PHQ-9 Depression Total Score: 11 023 3:14 PM EDT documented as of this encounter Care Teams Aeronautical Engineering Teacher Relationship Specialty Start Date End Date Roma Bender FNP [address] [place] [address] PCP - General Family Medicine 01/14/23 12/06/23 Lesia Tran MD [address] [place] [address] PCP - General Internal Medicine 12/07/23 Neetu Bah AGNP [address] [place] [address] Family Medicine 01/14/23 09/02/23 documented as of this encounter
--- OUTSIDE RECORDS SUMMARY | 2024-05-15 16:11 | XMS_ITS | Encounter Summary ---
Author Organization [employer] Address [address] [place] [address] 7t [place] [address] Care Team Providers Care Hoop Maker Helper Machine Name Role Phone Neetu Bah Primary Care Provider Roma Bender Primary Care Provider [phone] Neetu Bah Unavailable [phone] Lesia Tran MD Primary Care Provider + Reason for Visit * Reason Onset Date Comments New Patient 11/18/2022 Encounter Details Date Type Department Care Team (Late st Contact Info) Description 11/18/2022 Telephone [facility] MEDICINE [address] [place] [address] Koby Holland MD [address] [place], [place] [phone] New Patient Social History Tobacco Use Types Packs/Day Years [...] encounter Miscellaneous Notes * Telephone Encounter - Lisa Crabtreerero - 11/24/2022 12:44 PM EDT Pt has been transfer over to wait list for [employer]. EFFECTIVE SINCE 11/24/2022 * Telephone Encounter - Lisa Zarate Marianne - 11/18/2022 10:33 AM EDT Tc to Pt , informed that we do take insurance, but must call [employer] to change location. Once done, to please call back to facility at [phone] documented in this encounter Plan of Treatment Upcoming Encounters Date Type Department Care Team (Late st Contact Info) Description 06/02/2024 10:00 AM EST Office Visit [facility] ADULT DENTAL [address] [place] [address] Trenton Wilkerson DDS [address] [place] [address] 06/15/2024 11:30 AM EDT Office Visit [facility] MEDICINE [address] [place] [address] Lesia Tran MD [address] [place] [address] documented as of this encounter Visit Diagnoses Not on filedocumented in this encounter Care Teams Hoop Maker Helper Machine Relationship Specialty Start Date End Date Neetu Bah AGNP [address] [place] [phone] PCP - General Family Medicine 11/28/20 01/13/23 Roma Bender FNP [address] [place] [address] PCP - General Family Medicine 01/14/23 12/06/23 Lesia Tran MD [address] [place] [address] PCP - General Internal Medicine 12/07/23 Neetu Bah AGNP [address] [place] [address] Family Medicine 01/14/23 09/02/23 documented as of this encounter
--- OUTSIDE RECORDS SUMMARY | 2024-05-15 16:11 | XMS_ITS | Encounter Summary ---
Author Organization [employer] Address [address] [facility] 7t [place] [address] Care Team Providers Care Behavioral Health Consultant Name Role Phone Lesia Tran MD Primary Care Provider + Reason for Visit * Reason Onset Date Comments Med Refill 05/15/2024 Encounter Details Date Type Department Care Team (Late st Contact Info) Description 05/15/2024 Telephone [facility] MEDICINE [address] [place] [address] Lesia Tran MD [address] [place] [address] Med Refill Social History Tobacco Use Types Packs/Day Years [...] encounter Miscellaneous Notes * Telephone Encounter - Yahaira Dalton LPN - 05/15/2024 9:47 AM EST Medication was sent to [id number] on 05/01/24 with 1 refill. * Telephone Encounter - Kenisha Mtz - 05/15/2024 9:43 AM EST TC from pt requesting medication refill. Medications needing refill : hydrOXYzine pamoate (Vistaril) 25 MG capsule To be sent to: [facility]/pharmacy #[id number] - [address] documented in this encounter Plan of Treatment Upcoming Encounters Date Type Department Care Team (Late st Contact Info) Description 06/02/2024 10:00 AM EST Office Visit [facility] ADULT DENTAL [address] [place] [address] Trenton Wilkerson DDS [address] [place], [place] [phone] 06/15/2024 11:30 AM EDT Office Visit [facility] MEDICINE [address] [place], [place] [phone] Lesia Tran MD [address] [place] [address] documented as of this encounter Visit Diagnoses Not on filedocumented in this encounter Additional Health Concerns Assessment Noted Time PHQ-9 Depression Total Score: 21 024 2:23 PM EST documented as of this encounter Care Teams Behavioral Health Consultant Relationship Specialty Start Date End Date Lesia Tran MD [address] [place] [phone] PCP - General Internal Medicine 12/07/23 documented as of this encounter
--- OUTSIDE RECORDS SUMMARY | 2024-05-15 16:11 | XMS_ITS | Encounter Summary ---
Author Organization [employer] Address 75 [facility] 7t [place] [address] Care Team Providers Care Toy Trains And Accessories Salesperson Name Role Phone Lesia Tran MD Primary Care Provider + Reason for Visit * Reason Onset Date Comments medication 02/02/2024 Encounter Details Date Type Department Care Team (Late st Contact Info) Description 02/02/2024 Telephone [facility]ULT DENTAL [address] [place] [address] Trenton Wilkerson, BJS [address] [place] [address] medication Social History Tobacco Use Types Packs/Day Years [...] Answer Date Recorded Patient Health Questionnaire-2 Score 4 06/10/2023 Internet Access Answer Date Recorded Internet Access [...] encounter Miscellaneous Notes * Telephone Encounter - Fide Urrutia - 02/02/2024 10:45 AM EDT Message for Dr. Wilkerson Patient called in because he has been here a few times and has an appt with an oral surgeon for exton 02/14. He has been on antibiotics and pain medication before as well as mouth wash. He is looking for another scripts of all 3 meds to be sent to pharmacy because he is in pain again and wants something to hold him over until the . If able to send or not please reach out to patient. He wouldlike to know the status of medication DR documented in this encounter Plan of Treatment Upcoming Encounters Date Type Department Care Team (Late st Contact Info) Description 06/02/2024 10:00 AM EST Office Visit [facility]ULT D[facility]AL [address] [place] [address] Trenton Wilkerson, SHELLI [address] [place] [address] 06/15/2024 11:30 AM EDT Office Visit [facility] MED[facility] [address] [place] [address] Lesia Tran MD [address] [place] [address] documented as of this encounter Visit Diagnoses Not on filedocumented in this encounter Additional Health Concerns Assessment Noted Time PHQ-9 Depression Total Score: 21 024 2:23 PM EST documented as of this encounter Care Teams Toy Trains And Accessories Salesperson Relationship Specialty Start Date End Date Lesia Tran MD [address] [place] [address] PCP - General Internal Medicine 12/07/23 documented as of this encounter
--- OUTSIDE RECORDS SUMMARY | 2024-05-15 16:11 | XMS_ITS | Encounter Summary ---
Author Organization [employer] Address 75 [facility] 7t [place] [address] Care Team Providers Care Arrt Technologist Name Role Phone Roma Bender Primary Care Provider [phone] [facility]u Bah [facility] Un[facility] [phone] Lesia Tran MD Primary Care Provider + Reason for Visit * Reason Onset Date Comments Medication Question 05/04/2023 Encounter Details Date Type Department Care Team (Late st Contact Info) Description 05/04/2023 Telephone [facility] MEDICINE [address] [place] [address] Roma Bender FNP [address] [place] [address] Medication Question Social History Tobacco Use Types Packs/Day Years [...] encounter Miscellaneous Notes * Telephone Encounter - Gabe Evans - 05/04/2023 11:47 AM EST Tc from pt stating QUEtiapine (SEROquel) 50 MG tablet prescribed by pcp at [facility] today 05/04/23, was prescribed for 1 time daily but it was supposed to be 2 times daily. Any questions please contact [phone]. documented in this encounter Plan of Treatment Upcoming Encounters Date Type Department Care Team (Late st Contact Info) Description 06/02/2024 10:00 AM EST Office Visit [facility] ADULT DENTAL [address] [place] [address] Trenton Wilkerson DDS [address] [place] [address] 06/15/2024 11:30 AM EDT Office Visit [facility] MEDICINE [address] [place] [address] Lesia Tran MD [address] [place] [address] documented as of this encounter Visit Diagnoses Not on filedocumented in this encounter Additional Health Concerns Assessment Noted Time PHQ-9 Depression Total Score: 11 023 3:14 PM EDT documented as of this encounter Care Teams Arrt Technologist Relationship Specialty Start Date End Date Roma Bender FNP [address] [place] [address] PCP - General Family Medicine 01/14/23 12/06/23 Lesia Tran MD [address] [place] [address] PCP - General Internal Medicine 12/07/23 Neetu Bah AGNP [address] [place] [phone] Family Medicine 01/14/23 09/02/23 documented as of this encounter
--- OUTSIDE RECORDS SUMMARY | 2024-05-15 16:11 | XMS_ITS | Encounter Summary ---
Author Organization [employer] Address 75 [facility] 7t h Floor [address] Care Team Providers Care Water Taxi Captain Name Role Phone Lesia Tran MD Primary Care Provider + Reason for Visit * Reason Comments Dentures Encounter Details Date Type Department Care Team (Late st Contact Info) Description 05/03/2024 10:00 AM EST Office Visit [facility] ADULT DENTAL [address] [place] [address] Trenton Wilkerson, DDS [address] [place] [address] Complete edentulism, unspecified edentulism class (Primary Dx) Social History Tobacco Use Types [...] AM EDT documented as of this encounter Progress Notes * Trenton Wilkerson DDS - 05/03/2024 10:00 AM EST * Trenton Wilkerson DDS - 05/03/2024 10:00 AM EST Patient ID: Yaniv Gutierrez is a 38 y.o. male. Time Out: Timeout Date: 05/03/24 (full denture impression), Timeout Time: 0955 Location: [facility] Tooth: Maxilla and Mandible Procedure: Dentures Verified the above with patient, assurance assistant, and provider. Confirmed via patient's chart, intraorally and by radiographs. Weekend Caregiver: not applicable Chief Complaint Patient presents with Dentures Medical Hx: Vitals: There were no vitals taken for this visit. Medications, Med Hx reviewed with patient and updated in chart. Consent Obtained: The risks, benefits, indications, potential complications, and alternatives were explained to the patient and informed consent was obtained with good understanding. Treatment Provided: Dental procedures in this visit D5110 - DENTURE IMPRESSION (Completed) Service provider: Trenton Wilkerson DDS Billing provider: Trenton Wilkerson DDS Impression taken with [place] of Maxilla and Mandible Case sent to lab to fabricate custom trays. Lab used: [facility] Due Date: 05-10-24 Patient discharged alert, oriented, and in stable condition. NV: Bite reg Interactive Graphic Designer: Bola Bajwa Dentist: Trenton Wilkerson DDS documented in this encounter Plan of Treatment Upcoming Encounters Date Type Department Care Team (Late st Contact Info) Description 06/02/2024 10:00 AM EST Office Visit [facility] ADULT DENTAL [address] [place], [place] [phone] Trenton Wilkerson DDS [address] [place] [address] 06/15/2024 11:30 AM EDT Office Visit [facility] MEDICINE [address] [place] [address] Lesia Tran MD [address] [place] [address] Scheduled Orders Name Type Priority Associated Diagnoses Orde r Schedule WAX TRY IN Dental Routine 1 Occurrences starting 05/03/2024 documented as of this encounter Procedures Procedure Name Priority Date/Time Associated Diagnosis Comments DENTURE IMPRESSION Routine 05/03/2024 10:00 AM EST documented in this encounter Visit Diagnoses Diagnosis Complete edentulism, unspecified edentulism class- Primary documented in this encounter Additional Health Concerns Assessment Noted Time PHQ-9 Depression Total Score: 21 024 2:23 PM EST documented as of this encounter Care Teams Water Taxi Captain Relationship Specialty Start Date End Date Lesia Tran MD [address] [place] [phone] PCP - General Internal Medicine 12/07/23 documented as of this encounter
--- OUTSIDE RECORDS SUMMARY | 2024-05-15 16:11 | XMS_ITS | Clinical Summary ---
Author Organization [employer] Address [address] [place] [address] Care Team Providers Care Material Handler Floorperson Name Role Phone Lesia Tran MD Primary Care Provider + Allergies Active Allergy Reactions Criticality Noted Date Comments Penicillamine 09/29/2021 Penicillin G Hives 09/25/2022 Medications * This document contains information received from the source organization and may not represent a complete record from that organization. esomeprazole (NexIUM) [address] capsule Take 40 mg by mouth in the morning. 03/19/20 23 Active famotidine (Pepcid) 40 MG tablet Take 40 mg by mouth at bedtime. 03/19/20 23 Active Senna-Time 8.6 MG tablet TAKE 2 TABLETS BY MOUTH EVERY DAY AT BEDTIME FOR CONSTIPATION 03/19/20 23 Active methadone (Dolophine) 10 MG/ML solution Take 128 mg by mouth in the morning. Active chlorhexidine (Peridex) 0.12 % solution Swish 15 mL morning and night for 1 minute. Spit, do not swallow. Do not eat or drink for 30 minutes following use. 473 mL 02/02/20 24 Active Additional Information Patient not taking.Reported on 04/12/2024 ferrous sulfate 325 (65 Fe) MG EC tablet TAKE 1 TABLET BY MOUTH EVERY OTHER DAY SWALLOW WHOLE 45 tablet 04/17/19 25 Active mirtazapine (Remeron) 15 MG tabletIndicat ions:Severe episode of recurrent major depressive disorder, without psychotic features (CMS/HCC),Anx iety Take 1 tablet (15 mg) by mouth at bedtime. 30 tablet 1 05/01/19 025 Active QUEtiapine (SEROquel) 50 MG tabletIndicat ions:Severe episode of recurrent major depressive disorder, without psychotic features (CMS/HCC) Take 1 tablet (50 mg) by mouth 2 times daily. 60 tablet 1 05/01/19 025 Active buPROPion XL (Wellbutrin XL) 300 MG 24 hr tabletIndicat ions:Severe episode of recurrent major depressive disorder, without psychotic features (CMS/HCC),Anx iety Take 1 tablet (300 mg) by mouth Once per day. Do not crush, chew, or split. 30 tablet 1 05/01/19 025 Active hydrOXYzine pamoate (Vistaril) 25 MG capsuleIndica tions:Anxiety Take 1 capsule (25 mg) by mouth if needed in the morning and at bedtime for anxiety. 30 capsule 1 05/01/19 025 Active QUEtiapine (SEROquel) 50 MG tablet Take 1 tablet (50 mg) by mouth 2 times daily. 180 tablet 3 05/10/19 025 Discontinued(R eorder (will not trigger notification to Pharmacy)) mirtazapine (Remeron) 15 MG tablet Take 1 tablet (15 mg) by mouth at bedtime. 90 tablet 3 05/10/19 025 Discontinued(R eorder (will not trigger notification to Pharmacy)) ferrous sulfate 325 (65 Fe) MG EC tablet TAKE 1 TABLET BY MOUTH EVERY OTHER DAY SWALLOW WHOLE 45 tablet 01/18/20 025 Discontinued Active Problems Problem Noted Date Diagnosed Date History of substance use disorder 04/12/2024 Complete edentulism 04/12/2024 TYSON (obstructive sleep apnea) 02/11/2024 Overview (02/11/2024): Sleep study at [facility]: moderate TYSON with nocturnal hypoxemia, <88% 24.1 minutes, lowest 77%. Assessment & Plan (02/11/2024 3:58 PM EST): [facility] Mild persistent asthma 02/11/2024 Assessment & Plan (02/11/2024 4:00 PM EST): Doing well on Breo, fu by [facility] Advised re weight reduction. Declined Influenza or Covid IZ today, will fu at next appt. Chronic dental pain 12/24/2023 Assessment & Plan (02/11/2024 3:59 PM EST): Severe dental cavities Advised to analy tylenol alternated with Naproxen prn pain Do warm water and salt oral washes FU with dental for teeth extraction Chronic nasal congestion 10/18/2023 Acute low back pain with right-sided sciatica Overview (10/18/2023): Last Addressed Date: 12/17/2021 Dysphagia 10/18/2023 Overview (10/18/2023): Last Addressed Date: 12/03/2021 GERD without esophagitis 10/18/2023 Overview (02/11/2024): UPPER GI SERIES IMPRESSION: 1. Moderate-sized type I hiatal hernia. 2. Moderate gastroesophageal reflux. 3. Mildly disordered esophageal peristalsis. Assessment & Plan (02/11/2024 4:01 PM EST): FU by [facility], on Protonix, senna prn constipation Advised re weight reduction, may try Topamax after labs. Advised to avoid THC use Morbid obesity 10/18/2023 Overview (10/18/2023): Last Addressed Date: 10/26/2022 Assessment & Plan (02/11/2024 4:02 PM EST): Discussed re weight reduction options including exercise, life style modifications, encouraged to continue these changes Recommended to decrease soda and sugary beverage consumption, increase protein intake with meals (at least 1 portion of protein with each meal) to assist with satiety, increase dietary fiber Recommended at least 150 min/week of moderate intensity exercise. May consider Topamax in the future after labs. Severe episode of recurrent major depressive disorder, without psychotic features 06/10/2023 Assessment & Plan (06/11/2023 9:01 AM EST): PROGRESS NOTE: ID: Yaniv is a 37 y.o. White [place] choose not to disclose-identified cis- male (pronouns he/him/his) with services including OP Psychotherapy psychopharmacology. Self reported dx of Bipolar, ADHD, depression and anxiety. No previous hx of MH dx or sx in file; who presents for Anxiety and Depression. Yaniv lives with his mother, is not working currently. Reported Hx of trauma in adulthood, Hx of legal problems from age 19 until his early 20s. Hx of substance use started at age 16 until age 35. During IBH Consult Yaniv presenting with depressed mood, loss of interests/pleasure , changes in sleep sleeping too much, change in appetite or weight overeating, psychomotor retardation, trouble concentrating, fatigue/loss of energy, worthlessness , restless/keyed up/On edge, easily fatigued, difficulty concentrating/Mind going blank , irritability, muscle tension, and sleep disturbance sleeping too much, and Hx of polysubstance started at age 16, reported has been sober for 2.5 years, currently on methadone at [facility], 128mg with a plan on taper down 2 mg every 2 weeks.; for a period of 18+ mo, for all symptoms in the context of struggling to adjust to addiction treatment, pain and discomfort, weight gain, financial struggle. PLAN: New/Additional Services needed Off-site services for Behavioral Health Integration Plan External OP therapy referral and OP psychiatry Referral Patient Self Plan Patient to utilize skills provided in intervention , [facility], and Patient to reach out to [facility] as needed Anxiety 06/10/2023 Overview (10/18/2023): Last Addressed Date: 10/26/2022 Assessment & Plan (02/11/2024 4:04 PM EST): Seen by MH provider at [facility], will bring meds at next appt. He feels safe at home and is able to reach out for safety. Alcohol use disorder in remission 06/10/2023 Cocaine use disorder in remission 06/10/2023 Routine health maintenance 05/29/2023 Assessment & Plan (05/29/2023 2:23 PM EST): -Pt brought labs done by his [facility] in 04/06/2023 hb 11.7,chem was normal hep B neg, RPR neg, HIV neg hep C neg -check hep B to eval for immunity if not should offer vaccination -check CBC ,iron panel and FOBT for anemia hx Preop examination 05/29/2023 Assessment & Plan (05/29/2023 2:31 PM EST): 04/28/2023 Chem 3.2 , cr wnl , LFTs wnl, CBC hb 12.5 ,platelets 248 Pt brought labs done by his [facility] in 04/06/2023 hb 11.7,chem was normal hep B neg, RPR neg, HIV neg hep C neg -EKG today NSR HR 80 QTC 438 TWI in septal leads V1-V3 unchanged from EKG in 2021 RCRI is 0 going for low risk procedure that is going to be done under general anesthesia , pt reports feeling fatigue with light activity,pt with severe obesity and abnormal EKG today requested by dental clinic. In light of abnormal EKG and ATKINSON that most likely could be secondary to physical deconditioning but will need to r/o CAD , pt does have risk factors as morbid obesity and possible TYSON from reported loud snoring. Will not be able to clear pt for procedure at this time and I am recommending first to pt to complete cardiac evaluation. -referred to cards and sleep med today -Requesting [place] to fax this note to dental clinic -sending relevant labs to eval for commodities and pt will f up w PCP -has apt already scheduled for this month -repeat chem and mag to monitor for mild hypokalemia Dental abscess 09/25/2022 Severe dental caries 09/25/2022 Assessment & Plan (02/11/2024 4:03 PM EST): Awaiting dental extraction next week Rx Metronidazole for periodontal infection. Advised to use probiotics to decrease risk of C. Diff. Periodontal disease 09/25/2022 Resolved Problems Problem Noted Date Diagnosed Date Resolved Date Moderate opioid use disorder 06/10/2023 04/12/2024 Overview (10/18/2023): Last Addressed Date: 10/31/2021 Assessment & Plan (02/11/2024 4:03 PM EST): Doing well on Methadone at [facility], has take home bottles Advised to decrease use of THC Encounters * This document contains information received from the source organization and may not represent a complete record from that organization. Date Type Department Care Team Description 05/15/2024 Telephone [facility] [place] [place] [address] Lesia Tran MD Med Refill 05/12/2024 Telephone [facility] WALK-IN CENTER [facility] [place] [address] Bobbi Deal RN Results: Chest CT 05/12/24 05/03/2024 10:00 AM EST Office Visit [facility] [place] [place] [address] Trenton Wilkerson DDS Complete edentulism, unspecified edentulism class (Primary Dx) 04/30/2024 Travel 04/17/2024 Refill [facility] [place] [place] [address] Lesia Tran MD 04/12/2024 2:30 PM EST Office Visit [facility] [place] [address] Trenton Wilkerson DDS Complete edentulism, unspecified edentulism class (Primary Dx) 04/12/2024 Travel 04/11/2024 Travel 04/07/2024 Patient Outreach [facility] [place] [address] Lesia Tran MD Pre-visit Planning (SDOH screening completed on ) 03/30/2024 Telephone [facility] [place] [address] Renata Méndez, ROXANN Results 03/11/2024 Orders Only GENERIC EXTERNAL DATA DEPARTMENT Provider, Generic External Data 02/16/[address] [place] [address] Lesia Tran MD Results 02/16/2024 Telephone [facility] MEDICINE [address] [place] [address] Lesia Tran MD Results from Last 3 Months Immunizations Name Administration Dates Next Due DTP 06/02/1998, 8,11/02/1992,1989,1987 Hep A, Adult 07/19/2021 Hep B, Adolescent or Pediatric 10/27/1999,1999,05/27/1999 Hep B, adult 08/20/2021,07/19/2021 Hib (PRP-T) 07/03/1989 INFLUENZA INJECTABLE QUADRIV ALANT CCIIV4 MDCK Multi-dose vial 07/14/2021 IPV 11/02/1997,11/02/1992,07/03/1989 Influenza injectable quadriv alent preservative free 01/13/2023,01/28/2022 MMR 07/30/2021,05/27/1999,11/02/1998 OPV 1987 TD (adult), 2 Lf tetanus tox oid, preservative free, adsorbed 05/27/1999 Tdap 10/26/2022,07/21/2021 Family History Medical History Relation Name Comments Diabetes type II Maternal Grandmother Relation Name Status Comments Maternal Grandmother Social History Tobacco Use Types Packs/Day Years Used Date Smoking Tobacco: Former Cigarettes 0.3 0.5 Passive Smoke Exposure: Past Smokeless Tobacco: Former Tobacco Cessation:Counseling Given: Not Answered Alcohol Use Standard Drinks/Week Comments Defer 0 [...] not to disclose 2021 10:26 AM EDT Last Filed Vital Signs Vital Sign Reading Time Taken Comments Blood Pressure 120/100 04/12/2024 2:23 PM EST Pulse 90 02/11/2024 9:15 AM EST Temperature 36.6 ??C (97.9 ??F) 02/11/2024 9:15 AM ES T Respiratory Rate 12 02/11/2024 9:15 AM EST Oxygen Saturation 94% 02/11/2024 9:15 AM EST Inhaled Oxygen Concentration - - Weight 131 kg (289 lb 5 oz) 02/11/2024 9:[address] Height 170.2 cm (5' 7 ) 02/11/2024 9:15 AM EST Body Mass Index 45.31 02/11/2024 9:15 AM EST Plan of Treatment Upcoming Encounters Date Type Department Care Team (Late st Contact Info) Description 06/02/2024 10:00 AM EST Office Visit [facility] ADULT DENTAL [address] [place] [address] Trenton Wilkerson DDS [address] [place] [address] 06/15/2024 11:30 AM EDT Office Visit [facility] MEDICINE [address] [place] [address] Lesia Tran MD [address] [place] [address] Health Maintenance Due Date Last Done Comments Dental Prophylaxis 1987 Alcohol/Substance Use Screening 1999 Family Planning (PISQ) 06/23/2002 Pneumococcal Vaccine: Pediatrics (0 to 5 Years) and At-Risk Patients (6 to 49) Years) (1 of 2 - PCV) 06/23/2006 Dental X-Ray: Bitewings 02/21/2015 02/20/2014 Hepatitis A Vaccines (2 of 2 - Risk 2-dose series) 01/18/2022 07/19/2021 COVID-19 Vaccine ( - season) 2023 09/11/2020, 07/30/2020 Influenza Vaccine (#1) 2023 , 01/28/2022, 07/14/2021 Depression Monitoring (PHQ-9) 08/10/2024 02/11/2024, 06/10/2023 Dental Oral Exam 10/11/2024 04/12/2024, 02/20/2014 SDOH Screening 02/01/2025 02/02/2024 Depression Screening 02/10/2025 02/11/2024, 06/10/19 24 Tobacco Screening 05/03/2025 05/03/2024 Dental X-Ray: Full Mouth 04/13/2027 025, 12/01/2023, 09/25/2022, Additional history exists Lipid Panel 06/07/2028 06/08/2023, 02/01/2023 DTaP/Tdap/Td Vaccines (9 - Td or Tdap) 10/26/2032 10/26/2022, 07/21/2021, 05/27/1999, Additional history exists Zoster Vaccines (1 of 2) 06/23/2037 RSV Patients and Patients Aged 60 years or older (1 - 1-dose 75+ series) 06/23/2062 HIB Vaccines Completed 07/03/1989 IPV Vaccines Completed 11/02/1997, 10/05, 07/03/1989, Additional history exists Hepatitis B Vaccines Completed 08/20/2021, 07/19/2021, 10/27/1999, Additional history exists HIV Screening Discontinued HPV Vaccines Aged Out No longer eligi ble based on patient's age to complete this topic Hepatitis C Screening Discontinued Meningococcal Vaccine Aged Out No lulu jun eligible based on patient's age to complete this topic RSV under 20 months Aged Out No longe r eligible based on patient's age to complete this topic Rotavirus Vaccines Aged Out No longer eligible based on patient's age to complete this topic Procedures Procedure Name Priority Date/Time Associated Diagnosis Comments CT CHEST WO CONTRAST Routine 05/12/2024 9:03 AM EST DENTURE IMPRESSION Routine 05/03/2024 10 :00 AM EST ADJUNCTIVE GENERAL SERVICES - PROFESSIONAL VISITS - CASE PRESENTATION, SUBSEQUENT TO DETAILED AND EXTENSIVE TREATMENT PLANNING Routine 04/12/2024 2:30 PM EST PERIODIC ORAL EVALUATION - ESTABLISHED PATIENT Routine 04/12/2024 2:30 PM EST PANORAMIC RADIOGRAPHIC IMAGE Routine 04/12/2024 2:30 PM EST FL BARIUM SWALLOW MODIFIED Routine 03/13/2024 1:55 PM EST LACTIC ACID Routine 03/11/2024 3:34 PM EST CTA CHEST PE PROTOCAL Routine 03/11/2024 1:18 PM EST D DIMER HIGH SENSITIVITY Routine 03/11/2024 11:22 AM EST APTT Routine 03/11/2024 11:22 AM EST XR CHEST 1 VIEW Routine 03/11/2024 11:22 AM EST DRUG MONITOR, PANEL 1, SCREEN, URINE Routine 03/11/2024 9:28 AM EST URINALYSIS WITH REFLEX MICROSCOPIC Routine 03/11/2024 9:28 AM EST SARS COV2/INFLUENZA A/B AND RSV RNA QL NAAT Routine 03/11/2024 9:28 AM EST HIGH SENSITIVITY TROPONIN I Routine 03/11/2024 9:09 AM EST COMPREHENSIVE METABOLIC PANEL Routine 03/11/2024 9:09 AM EST CBC WITH AUTO DIFFERENTIAL Routine 03/11/2024 9:09 AM EST LIPID PANEL, STANDARD Routine 06/08/2023 8:20 AM EST Class 3 severe obesity due to excess calories without serious comorbidity in adult, unspecified BMI (CMS/HCC) DIAGNOSTIC - DIAGNOSTIC IMAGING - INTRAORAL - COMPREHENSIVE SERIES OF RADIOGRAPHIC IMAGES Routine 02/20/2014 12:00 AM EST from Last 3 Months or Most Recently Relevant to Health Maintenance Results * CT Chest w/o Contrast (05/12/2024 9:03 AM EST) Anatomical Region Laterality Modality Body, Chest Computed Tomogra phy 05/12/2024 9:03 AM EST Narrative 05/12/2024 9:54 AM EST ? [facility] ?[address] ?[place] [address] ? CT Scan Report ? Signed ? Patient: Yaniv Gutierrez ?MR#: [id number] ? : 1985 ?Acct:[id number] ? Age/Sex: 38 / M ?ADM Date: 05/12/24 ? Loc: HO.CT ? Attending Dr: Samantha Davis STAFF DEVELOPMENT EDUCATOR ? Ordering Physician: Samantha Davis NP ?? Date of Service: 05/12/24 ?? Procedure(s): CT chest wo IV con ?? Accession Number(s): [id number] ? cc: Roma Bender STAFF DEVELOPMENT EDUCATOR; Samantha Davis STAFF DEVELOPMENT EDUCATOR ? Report Number: ?? [id number]: Total DLP = ??307.00 mGy-cm ?? EXAMINATION: ?? CT CHEST WITHOUT CONTRAST ? CLINICAL INFORMATION: ?? Recurrent pneumonia. ? COMPARISON: ?? CT angiogram chest dated March 11, 2024. ? TECHNIQUE: ?? Multidetector volumetric CT imaging of the chest was done. Axial MIP ?? volume rendering provided. Sagittal and coronal reformatted images were ?? obtained. ? This CT examination was performed using dose optimization techniques as ?? appropriate, variously including the following: ?? *Automated exposure control ?? *Adjustment of mA and/or kV according to patient size (this includes ?? techniques or standardized protocols for targeted exams where dose is ?? matched to indication/reason for exam; i.e. extremities or head) ?? *Use of iterative reconstruction technique. ?? DLP: 307 mGy centimeter. ? FINDINGS: ? BOWL SANDER: Large body habitus. No hyperinflation. ? LUNGS: Small patchy and nodular pulmonary groundglass, left lung, right ?? lower lung lobe, and right middle lung lobe. ?? No bronchiectasis. ?? No honeycombing. ? MEDIASTINUM: Prominent less than 1 cm lymph nodes. No pericardial ?? effusion. Questionable secretions in the trachea. No aneurysm in the ?? thoracic aorta. No pneumomediastinum. ? CORONARY ARTERY CALCIFICATION: No. ? PLEURA: No pleural effusion. No pneumothorax. No hemothorax. ? AXILLA: No lymphadenopathy or masses. ? UPPER ABDOMEN: Small hiatal hernia. Nonspecific mesenteric edema ?? pattern prominent mesenteric lymph nodes. Small accessory spleen. ?? Gallbladder is contracted. ? OSSEOUS STRUCTURES: No acute fracture or listhesis in the axial ?? skeleton. No lytic or blastic lesions. Sternum is intact. Ribs are ?? intact. Scapula are intact bilaterally. Included clavicles are intact. ? CT/CT chest wo IV con ?? IMPRESSION: ?? Multifocal pneumonia versus pneumonitis, similar morphology pattern ?? since prior exam. ? Fleischner guidelines were followed. ? Electronically signed by: ??Tyrese Chase MD ??05/12/2024 09:51 AM ?? EST RP ? Dictated By: ?Tyrese De Leon MD ? Signed By: ?<Electronically signed by Tyrese Sanchez MD in OV> ? 05/12/24 0951 ? DD/ 0903 ? TD/TT: 05/12/24 0928 ? Investment Accounting Clerk: ? Procedure Note Donotuseinterpreter, Image - 05/12/[address] [address] [address] Scan Report Signed Patient: Yaniv Gutierrez GMR#: [id number] : 1985Acct:[id number] Age/Sex: 38 / MADM Date: 05/12/24 Loc: HO.CT Attending Dr: Samantha Davis NP Ordering Physician: Samantha Davis NP Date of Service: 05/12/24 Procedure(s): CT chest wo IV con Accession Number(s): [id number] cc: Roma Bender STAFF DEVELOPMENT EDUCATOR; Samantha Davis NP Report Number: [id number]: Total DLP = 307.00 mGy-cm EXAMINATION: CT CHEST WITHOUT CONTRAST CLINICAL INFORMATION: Recurrent pneumonia. COMPARISON: CT angiogram chest dated March 11, 2024. TECHNIQUE: Multidetector volumetric CT imaging of the chest was done. Axial MIP volume rendering provided. Sagittal and coronal reformatted images were obtained. This CT examination was performed using dose optimization techniques as appropriate, variously including the following: *Automated exposure control *Adjustment of mA and/or kV according to patient size (this includes techniques or standardized protocols for targeted exams where dose is matched to indication/reason for exam; i.e. extremities or head) *Use of iterative reconstruction technique. DLP: 307 mGy centimeter. FINDINGS: BOWL SANDER: Large body habitus. No hyperinflation. LUNGS: Small patchy and nodular pulmonary groundglass, left lung, right lower lung lobe, and right middle lung lobe. No bronchiectasis. No honeycombing. MEDIASTINUM: Prominent less than 1 cm lymph nodes. No pericardial effusion. Questionable secretions in the trachea. No aneurysm in the thoracic aorta. No pneumomediastinum. CORONARY ARTERY CALCIFICATION: No. PLEURA: No pleural effusion. No pneumothorax. No hemothorax. AXILLA: No lymphadenopathy or masses. UPPER ABDOMEN: Small hiatal hernia. Nonspecific mesenteric edema pattern prominent mesenteric lymph nodes. Small accessory spleen. Gallbladder is contracted. OSSEOUS STRUCTURES: No acute fracture or listhesis in the axial skeleton. No lytic or blastic lesions. Sternum is intact. Ribs are intact. Scapula are intact bilaterally. Included clavicles are intact. CT/CT chest wo IV con IMPRESSION: Multifocal pneumonia versus pneumonitis, similar morphology pattern since prior exam. Fleischner guidelines were followed. Electronically signed by: Tyrese Chase MD 05/12/2024 09:51 AM EST RP Dictated By: Tyrese De Leon MD Signed By: <Electronically signed by Tyrese Sanchez MDin OV> 05/12/24950 DD/ 2 TD/TT: 05/12/24927 Investment Accounting Clerk: [facility] External Provider IMG CT PROCEDURES Final Result * FL BARIUM SWALLOW MODIFIED (03/13/2024 1:55 PM EST) Anatomical Region Laterality Modality Head, Neck Radiographic Elizabet ging 03/13/2024 1:55 PM EST Narrative 03/14/2024 2:45 PM EST ? [facility] ?[address] ?[place] [address] ? Fluoroscopy Report ? Signed ? Patient: Yaniv Gutierrez ?MR#: [id number] ? : 1985 ?Acct:[id number] ? Age/Sex: 38 / M ?ADM Date: 03/11/24 ? Loc: HO.S3 ?369-1 ? Attending Dr: Jose Martin Aguiar MD ? Ordering Physician: Jose Martin Aguiar MD ?? Date of Service: 03/13/24 ?? Procedure(s): FL Modified Barium Swallow ?? Accession Number(s): [id number] ? cc: Jose Martin Aguiar MD; Yesica Land MD ? EXAMINATION: ?? Modified Barium Swallow ? CLINICAL INFORMATION: ?? Dysphagia. ? COMPARISON: ?? None. ? TECHNIQUE: ?? Modified barium swallow was performed under lateral fluoroscopy with ?? patient in standing position. Barium mixed with solids and liquids of ?? different consistencies was administered by the speech pathologist. ?? Examination was recorded in the fluoroscopy suite. ? FINDINGS: ?? There is trace laryngeal penetration with thin barium. No aspiration ?? was observed. ? FLUOROSCOPY TIME: ?? 58 seconds ? Number of Spot Images: N/A ? DOSE AREA PRODUCT: ?? 941.6 uGy-m2 (microgray-meter squared) ? FL/FL Modified Barium Swallow ?? IMPRESSION: ?? 1. Trace laryngeal penetration with thin barium. No subglottic ?? aspiration was observed. ? Refer to the speech therapy report for further clarification ? This procedure was performed by Lazarus Petty PA-C, and supervised by ?? Dr. Wilder ? Electronically signed by: ??Compa Wilder MD ??03/14/2024 02:43 PM EST RP ? Dictated By: ?Lazarus Petty ? Signed By: ?<Electronically signed by Lazarus Petty in OV> ? 12/01/26 1443 ?<Electronically signed by Compa Wilder MD in OV> ? 03/14/24 1445 ? DD/ 1355 ? TD/TT: 03/13/24 1417 ? Investment Accounting Clerk: ? Procedure Note Donlindater, Image - 03/14/2024 [place] [address] Fluoroscopy Report Signed Patient: Yaniv Gutierrez GMR#: [id number] : 1985Acct:[id number] Age/Sex: 38 / MADM Date: 03/11/24 Loc: .S3 369-[address]: Jose Martin Aguiar MD Ordering Physician: Jose Martin Aguiar MD Date of Service: 03/13/24 Procedure(s): FL Modified Barium Swallow Accession Number(s): [id number] cc: Jose Martin Aguiar MD; Yesica Land MD EXAMINATION: Modified Barium Swallow CLINICAL INFORMATION: Dysphagia. COMPARISON: None. TECHNIQUE: Modified barium swallow was performed under lateral fluoroscopy with patient in standing position. Barium mixed with solids and liquids of different consistencies was administered by the speech pathologist. Examination was recorded in the fluoroscopy suite. FINDINGS: There is trace laryngeal penetration with thin barium. No aspiration was observed. FLUOROSCOPY TIME: 58 seconds Number of Spot Images: N/A DOSE AREA PRODUCT: 941.6 uGy-m2 (microgray-meter squared) FL/FL Modified Barium Swallow IMPRESSION: 1. Trace laryngeal penetration with thin barium. No subglottic aspiration was observed. Refer to the speech therapy report for further clarification This procedure was performed by Lazarus Petty PA-C, and supervised by Dr. Wilder Electronically signed by: Compa Wilder MD 03/14/2024 02:43 PM EST RP Dictated By: Lazarus Petty Signed By: <Electronically signed by Lazarus Petty in OV> 03/14/24 1443 <Electronically signed by Compa Wilder MD in OV> 03/14/24 1445 DD/ 1355 TD/TT: 03/13/24 1417 Investment Accounting Clerk: [facility] External Provider IMG FLU OROSCOPY PROCEDURES Final Result * Lactic Acid (03/11/2024 3:34 PM EST) Lactic Acid 1.0 0.5 - 2.0 mmol/L [facility] 03/11/2024 3:34 PM EST 03/11/2024 3:39 PM EST Generic External Data Provider LAB BLOOD ORDERAB LES Final Result Performing Organization Address City/State/[facility] Co de Phone Number [facility] [address] [place] [phone] * CTA Chest PE Protocal (03/11/2024 1:18 PM EST) Anatomical Region Laterality Modality Body, Chest Computed Tomogra phy 03/11/2024 1:18 PM EST Narrative 03/11/2024 2:51 PM EST ? [facility] ?[address] ?[place] [address] ? CT Scan Report ? Signed ? Patient: Yaniv Gutierrez ?MR#: [id number] ? : 1985 ?Acct:[id number] ? Age/Sex: 38 / M ?ADM Date: 12/07/24 ? Loc: HO.ED ? Attending Dr: ? Ordering Physician: Les Blanchard MD ?? Date of Service: 03/11/24 ?? Procedure(s): CT angio chest PE protocol ?? Accession Number(s): [id number] ? cc: [facility]; Les Blanchard MD ? EXAMINATION: ?? CT ANGIOGRAM OF THE CHEST WITH AND WITHOUT CONTRAST (CT PULMONARY ?? ANGIOGRAM FOR PE) ? CLINICAL INFORMATION: ?? Left pleuritic chest pain elevated D-dimer R/O PE ? COMPARISON: ?? CT chest without contrast December 17, 2023 ? TECHNIQUE: ?? Prior to contrast administration, noncontrast localization images were ?? obtained. ?? Subsequently, multidetector volumetric imaging was ?? performed from the thoracic inlet to below the diaphragms following the ?? administration of 100 mL Omnipaque 350 intravenous contrast. ?? No contrast reaction reported. ?? Sagittal, coronal, and MIP oblique sagittal reformatted images were ?? obtained on the CT workstation, uploaded to PACS, and reviewed. ?? Total exam dose-length product 545 mGy-cm ? FINDINGS: ? QUALITY OF STUDY/CONTRAST BOLUS: Suboptimal. ? PULMONARY ARTERIES: No central or segmental pulmonary emboli. ? THORACIC AORTA: No aneurysm or dissection. ? LUNG: New masslike consolidation in the left upper lobe measuring 1.1 ?? cm (6:26). Patchy opacities in the dependent portions of the left upper ?? lobe, left lower lobe, and right lower lobe. Unchanged 4 mm nodule in ?? the left lower lobe adjacent to the fissure. ? PLEURA: No pleural effusion or pneumothorax. ? MEDIASTINUM: Normal heart size. ??No pericardial effusion. ??No hilar or ?? mediastinal lymphadenopathy. ??No evidence of septal bowing or right ?? heart strain. ? CHEST WALL/AXILLA: No axillary or internal mammary lymphadenopathy. ? OSSEOUS STRUCTURES: No acute or suspicious osseous abnormality. ? UPPER ABDOMEN: Unremarkable. ??No reflux of contrast into the hepatic ?? veins to suggest elevated right heart pressures. ? CT/CT angio chest PE protocol ?? IMPRESSION: ?? 1. ??No central or segmental pulmonary emboli. ?? 2. ??New masslike consolidation in the left upper lobe measuring 1.1 cm. ?? Patchy opacities in the dependent portions of the left upper lobe, left ?? lower lobe, and right lower lobe. Findings are concerning for ?? multifocal pneumonia or aspiration. Recommend short interval follow up ?? for the left upper lobe lesion to ensure no underlying mass. ?? VTE: negative. ? Electronically signed by: ??Rajinder Mosquera MD ??03/11/2024 02:48 PM EST RP ? Dictated By: ?Rajinder Mosquera MD ? Signed By: ?<Electronically signed by Rajinder Mosquera MD in OV> ?03/11/24 1448 ? DD/ 1318 ? TD/TT: 03/11/24 1328 ? Investment Accounting Clerk: ? Procedure Note Donotuseinterpreter, Image - 03/11/[address] [place] [address] [address] Scan Report Signed Patient: Yaniv Gutierrez GMR#: [id number] : 1985Acct:[id number] Age/Sex: 38 / MADM Date: 03/11/24 Loc: .ED Attending Dr: Ordering Physician: Les Blanchard MD Date of Service: 03/11/24 Procedure(s): CT angio chest PE protocol Accession Number(s): [id number] cc: [facility]; Les Blanchard MD EXAMINATION: CT ANGIOGRAM OF THE CHEST WITH AND WITHOUT CONTRAST (CT PULMONARY ANGIOGRAM FOR PE) CLINICAL INFORMATION: Left pleuritic chest pain elevated D-dimer R/O PE COMPARISON: CT chest without contrast December 17, 2023 TECHNIQUE: Prior to contrast administration, noncontrast localization images were obtained. Subsequently, multidetector volumetric imaging was performed from the thoracic inlet to below the diaphragms following the administration of 100 mL Omnipaque 350 intravenous contrast. No contrast reaction reported. Sagittal, coronal, and MIP oblique sagittal reformatted images were obtained on the CT workstation, uploaded to PACS, and reviewed. Total exam dose-length product 545 mGy-cm FINDINGS: QUALITY OF STUDY/CONTRAST BOLUS: Suboptimal. PULMONARY ARTERIES: No central or segmental pulmonary emboli. THORACIC AORTA: No aneurysm or dissection. LUNG: New masslike consolidation in the left upper lobe measuring 1.1 cm (6:26). Patchy opacities in the dependent portions of the left upper lobe, left lower lobe, and right lower lobe. Unchanged 4 mm nodule in the left lower lobe adjacent to the fissure. PLEURA: No pleural effusion or pneumothorax. MEDIASTINUM: Normal heart size. No pericardial effusion. No hilar or mediastinal lymphadenopathy. No evidence of septal bowing or right heart strain. CHEST WALL/AXILLA: No axillary or internal mammary lymphadenopathy. OSSEOUS STRUCTURES: No acute or suspicious osseous abnormality. UPPER ABDOMEN: Unremarkable. No reflux of contrast into the hepatic veins to suggest elevated right heart pressures. CT/CT angio chest PE protocol IMPRESSION: 1. No central or segmental pulmonary [...] Rajinder Mosquera MD 03/11/2024 02:48 PM EST Dictated By: Rajinder Mosquera MD Signed By: <Electronically signed by Rajinder Mosquera MD in OV> 03/11/24 1448 DD/ 1318 TD/TT: 03/11/24 1328 Investment Accounting Clerk: [facility] External Provider IMG CT PROCEDURES Edited Result - Final * D Dimer High Sensitivity (03/11/2024 11:22 AM EST) D Dimer High Sensitivity 373 NG/ML [facility] Comment:D-DIMER HS REFERENCE RANGENote: Our assay reports D-Dimer Units (D- DU).The cut-off value for venous thromboembolic (VTE) disease is230 ng/mL. This value has a very high negative predictivevalue when the patient has a low to moderate clinicalprobability of VTE.The upper limit of normal is 243 ng/mL. 03/11/2024 11:2 2 AM EST 03/11/2024 11:31 AM EST us Generic External Data Provider LAB BLOOD ORDERAB LES Final Result [facility] [address] [place] [phone] * XR Chest 1 View (03/11/2024 11:22 AM EST) Anatomical Region Laterality Modality Chest Radiographic Elizabet ging 03/11/2024 11:2 2 AM EST Narrative 03/11/2024 12:17 PM EST ? [facility] ?[address] ?[place] [address] ?XRay Report ? Signed ? Patient: Yaniv Gutierrez ?MR#: [id number] ? : 1985 ?Acct:[id number] ? Age/Sex: 38 / M ?ADM Date: 03/11/24 ? Loc: HO.ED ? Attending Dr: ? Ordering Physician: Les Blanchard MD ?? Date of Service: 03/11/24 ?? Procedure(s): XR chest 1V ?? Accession Number(s): [id number] ? cc: [facility]; Les Blanchard MD ? EXAMINATION: ?? XR CHEST ? CLINICAL INFORMATION: ?? Left pleuritic chest pain ? COMPARISON: ?? Chest x-ray on 11/21/2023 ? TECHNIQUE: ?? Frontal view of the chest was obtained. ? FINDINGS: ?? The cardiac silhouette is normal. There is mild diffuse bronchial wall ?? thickening. There are no areas of consolidation. There are no pleural ?? effusions or pneumothoraces. The bones and soft tissues are ?? unremarkable for the patient's age. ? XR/XR chest 1V ?? IMPRESSION: ?? Bronchial wall thickening may be infectious and/or inflammatory in ?? etiology. ? Electronically signed by: ??Kacie Roman MD ??03/11/2024 12:14 PM EST ?? RP ? Dictated By: ?Kacie Roman MD ? Signed By: ?<Electronically signed by Kacie Roman MD in OV> ? 03/11/24 1214 ? DD/ 1122 ? TD/TT: 03/11/24 1138 ? Investment Accounting Clerk: PN ? Procedure Note Donotuseinterpreter, Image - 03/11/[address] [address] XRay Report Signed Patient: Yaniv Gutierrez GMR#: [id number] : 1985Acct:[id number] Age/Sex: 38 / MADM Date: 03/11/24 Loc: HO.ED Attending Dr: Ordering Physician: Les Blanchard MD Date of Service: 03/11/24 Procedure(s): XR chest 1V Accession Number(s): [id number] cc: [facility]; Les Blanchard MD EXAMINATION: XR CHEST CLINICAL INFORMATION: Left pleuritic chest pain COMPARISON: Chest x-ray on 11/21/2023 TECHNIQUE: Frontal view of the chest was obtained. FINDINGS: The cardiac silhouette is normal. There is mild diffuse bronchial wall thickening. There are no areas of consolidation. There are no pleural effusions or pneumothoraces. The bones and soft tissues are unremarkable for the patient's age. XR/XR chest 1V IMPRESSION: Bronchial wall thickening may be infectious and/or inflammatory in etiology. Electronically signed by: Kacie Roman MD 03/11/2024 12:14 PM EST Dictated By: Kacie Roman MD Signed By: <Electronically signed by Kacie Roman MD in OV> 03/11/24 1214 DD/ 1122 TD/TT: 03/11/24 1138 Investment Accounting Clerk: PN us [facility] External Provider IMG XR PROCEDURES Edited Result - Final * Partial Thromboplastin Time, Activated (APTT) (03/11/2024 11:22 AM EST) Partial Thromboplastin Time 32.0 26.0 - 36.8 SEC [facility] Comment:For information rega rding the monitoring of direct thrombininhibitors, please refer to Pharmacy. 03/11/2024 11:2 2 AM EST 03/11/2024 11:31 AM EST Generic External Data Provider LAB BLOOD ORDERAB LES Final Result Performing Organization Address [facility] de Phone Number [facility] [address] [place] [phone] * SARS-CoV-2 RNA, Influenza A/B, and RSV RNA, Ql NAAT (03/11/2024 9:28 AM EST) Pathologist [facility] Influenza A PCR NEGATIVE Negative [facility] Influenza B PCR NEGATIVE Negative [facility] Resp Syncy Virus RNA Qual PCR NEGATIVE Negative [facility] SARS COV2 PCR NEGATIVE Negative [facility] Comment:All test results mus t be correlated with clinical findings.Negative results do not preclude SARS-CoV2, influenza Avirus, influenza B virus and/or RSV infectionand should not be used as the sole basis for treatment orother patient management decisions. Negative results must becombined with clinical observations, patient history, andepidemiological information.This test has not been evaluated for monitoring treatment ofinfection.This test has been authorized by the FDA under an EmergencyUse Authorization (EUA) for use by authorized laboratories.Testing performed on the [employer] GeneXpert utilizingreal-time RT-PCR.All SARS CoV2 and positive influenza A/B results arereported to [facility]. 03/11/2024 9:28 AM EST 03/11/2024 9:32 AM EST Generic External Data Provider LAB MICROBIOLOGY - GENERAL ORDERABLES Final Result Performing Organization Address [facility] Co de Phone Number [facility] [address] [place] [phone] * (ABNORMAL) Drug Monitoring, Panel 1, Screen, Urine (03/11/2024 9:28 AM EST) Opiate Screen Urine POSITIVE(A) Not Detect [facility] Comment:Opiate cut-off is 30 0 ng/mL.Positive results are unconfirmed and should not be used fornon-medical purposes. Barbiturates, Urine Not Detected Not Detect [facility] Comment:Barbiturate cut-off is 200 ng/mL.Positive results are unconfirmed and should not be used fornon-medical purposes. Phencyclidine Screen Urine Not Detected Not Detect [facility] Comment:Phencyclidine cut-of f is 25 ng/mL.Positive results are unconfirmed and should not be used fornon-medical purposes. Amphetamine Screen Urine Not Detected Not Detect [facility] Comment:Amphetamine cut-off is 1000 ng/mL.Positive results are unconfirmed and should not be used fornon-medical purposes. Benzodiazepines Screen Urine Not Detected Not Detect [facility] Comment:Benzodiazepine cut-o ff is 200 ng/mL.Positive results are unconfirmed and should not be used fornon-medical purposes. Cocaine Screen Urine POSITIVE(A) Not Detect [facility] Comment:Cocaine cut-off is 3 00 ng/mL.Positive results are unconfirmed and should not be used fornon-medical purposes. Cannabinoid Screen Urine POSITIVE(A) Not Detect [facility] Comment:Cannabinoid cut-off is 50 ng/mL.Positive results are unconfirmed and should not be used fornon-medical purposes. Methadone Screen, Urine Positive(A) Not Detect ng/mL [facility] Comment:Methadone cut-off is 300 ng/mL.Positive results are unconfirmed and should not be used fornon-medical purposes. FENTANYL URINE POSITIVE(A) Not Detect [facility] Comment:Fentanyl cut-off is 1 ng/mL.Positive results are unconfirmed and should not be used fornon-medical purposes. Oxycodone Urine Screen Not Detected Not Detect ng/mL [facility] Comment:Oxycodone cut-off is 100 ng/mL.Positive results are unconfirmed and should not be used fornon-medical purposes. Buprenorphine Screen Not Detected Not Detect ng/mL [facility] Comment:Buprenorphine cut-of f is 5 ng/mL.Positive results are unconfirmed and should not be used fornon-medical purposes. 03/11/2024 9:28 AM EST 03/11/2024 3:45 PM EST Generic External Data Provider LAB URINE ORDERAB LES Final Result Performing Organization Address City/[facility]/ZIP Co de Phone Number [facility] [address] [place] [phone] * Urinalysis w/reflex microscopic (03/11/2024 9:28 AM EST) Color Urine Yellow [facility] Appearance Urine Clear [facility] PH 7.0 5.0 - 9.0 [facility] Glucose Urine UA Negative Negative mg/dL [facility] Urine Blood Negative Negative [facility] Specific [place] - Urine 1.015 1.005 - 1.025 [facility] Urine Protein Negative Neg-Trace mg/dL [facility] Urine Ketones Negative Negative mg/dL [facility] Nitrite Urine Negative Negative [facility] Leukocyte Esterase Urine Negative Negative [facility] 03/11/2024 9:28 AM EST 03/11/2024 9:32 AM EST Narrative [facility] - 03/11/2024 9:37 AM EST [id number], Clean Catch Generic External Data Provider LAB URINE ORDERAB LES Final Result Performing Organization Address [facility] Co de Phone Number [facility] [address] [place] [phone] * High Sensitivity Troponin I (03/11/2024 9:09 AM EST) TROPONIN I HIGH SENSITIVITY <2.7 <3.5 - 35.0 ng/L [facility] Comment:The Moore high sens itivity Troponin-I results should beused in conjunction with other diagnostic information suchas ECG, clinical observations and information, and patientsymptoms to aid in the diagnosis of NM. 03/11/2024 9:09 AM EST 03/11/2024 9:13 AM EST Generic External Data Provider LAB BLOOD ORDERAB LES Final Result [facility] [address] [place], [place] [phone] * (ABNORMAL) CBC auto differential (03/11/2024 9:09 AM EST) White Blood Count 15.9(H) 4.8 - 10.8 X10*3/uL [facility] Red Blood Count 4.43(L) 4.60 - 5.80 X10*6/uL [facility] Hemoglobin 11.6(L) 14.0 - 18.0 g/dl [facility] Hematocrit 35.7(L) 42.0 - 52.0 % [facility] Mean Corpuscular Volume 80.6 80.0 - 98.0 fL [facility] Mean Corpuscular Hemoglobin 26.2(L) 27.0 - 33.0 pg [facility] Mean Corpuscular HGB Conc 32.5 31.0 - 36.0 g/dl [facility] Red Cell Distribution Width 14.3 11.0 - 16.0 % [facility] Platelet Count 258 160 - 400 X10*3/uL [facility] Mean Platelet Volume 8.7(L) 9.4 - 12.4 fL [facility] Neutrophils Percent Auto 84.7(H) 45 - 73 % [facility] Imm Gran Pct Auto 0.4 0.0 - 0.4 % [facility] Lymphocytes Percent Auto 6.5(L) 20 - 40 % [facility] Monocytes Percent Auto 6.1 2 - 11 % [facility] Eosinophils Percent Auto 2.0 0 - 4 % [facility] Basophils Percent Auto 0.3 0 - 2 % [facility] NRBC Pct Auto 0.0 0.0 - 0.2 /100WBC [facility] Neutrophils Absolute Auto 13.5(H) 2.0 - 8.3 x10*3/uL [facility] Imm Gran Abs Auto 0.07(H) 0.00 - 0.03 X10*3/uL [facility] Lymphocytes Absolute Auto 1.0(L) 1.2 - 4.9 X10*3/uL [facility] Monocytes Absolute Auto 1.0 0.1 - 1.2 X10*3/uL [facility] Eosinophils Absolute Auto 0.3 0.0 - 0.4 X10*3/uL [facility] Basophils Absolute Auto 0.1 0.0 - 0.2 X10*3/uL [facility] NRBC Abs Auto 0.000 0.0 - 0.012 X10*3/uL [facility] 03/11/2024 9:09 AM EST 03/11/2024 9:13 AM EST us Generic External Data Provider LAB BLOOD ORDERAB LES Final Result [facility] [address] [place] [phone] * (ABNORMAL) Comprehensive Metabolic Panel (03/11/2024 9:09 AM EST) Sodium 137 135 - 145 mmol/L [facility] Potassium 3.9 3.3 - 5.1 mmol/L [facility] Chloride 103 96 - 108 mmol/L [facility] Carbon Dioxide 25 22 - 29 mmol/L [facility] Anion Gap 13 12 - 20 [facility] Urea Nitrogen (BUN) 10 9 - 16 mg/dL [facility] Creatinine, Serum 0.83 0.5 - 1.4 mg/dL [facility] Creatinine Clr Calc Pharmacy 151.1 [facility] Comment:eGFR (calculated fro m the MDRD study equation) and eCrCl(calculated from the Cockcroft-Gault equation) are based ondifferent parameters and may not yield comparable results.If eCrCl result is absurd, please check patient'sheight/weight. Estimated Glomerular Filt Rate >60 [facility] Comment:Chronic Kidney Disea se: Estimated GFR < 60 mL/min/1.26m7Lwjokc Kidney Disease: Estimated GFR < 15 mL/min/1.73m2 Glucose 115 60 - 115 mg/dL [facility] Calcium 9.0 8.4 - 10.2 mg/dL [facility] Bilirubin, Total 0.7 0.0 - 1.0 mg/dL [facility] Aspartate Amino Transferase 57(H) 5 - 37 U/L [facility] Alanine Aminotransferase 31 0 - 40 U/L [facility] Total Protein 7.0 6.5 - 8.0 g/dL [facility] Albumin Level 3.7 3.5 - 5.0 g/dL [facility] Alkaline Phosphatase 92 39 - 117 U/L [facility] 03/11/2024 9:09 AM EST 03/11/2024 9:13 AM EST us Generic External Data Provider LAB BLOOD ORDERAB LES Final Result [facility] [address] [place] [phone] * (ABNORMAL) Lipid Panel, Standard (06/08/2023 8:20 AM EST) Triglycerides 236(H) <150 mg/dL [facility] Comment:Desirable Triglyceri de: less than 150 mg/dLBorderline High Triglyceride 150-199 mg/dLHigh Triglyceride: 200-499 mg/dLVery High Triglyceride: greater than or equal to 5OO mg/dL Cholesterol 137 <200 mg/dL [facility] Comment:Desirable Cholestero l: less than 200 mg/dLBorderline High Cholesterol: 200-239 mg/dLHigh Cholesterol: greater than 239 mg/dL LDL Cholesterol Calculated 57 <100 mg/dL [facility] Comment:Desirable LDL: less than 100 mg/dLNear Optimal/Above Optimal LDL: 110- 129 mg/dLBorderline High LDL: 130-159 mg/dLHigh LDL: 160-189 mg/dLVery High LDL: greater than or equal to 190 mg/dL HDL Cholesterol 33(L) >40 mg/dL [facility] Comment:Desirable HDL: great er than 40 mg/dL Note: This HDL assay may give artificially low results in patients with liver disease. 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
[2024-05-16 14:27] LABS: IgA 542 mg/dL (47-310); IgG 1274 mg/dL (600-1640); IgM 277 mg/dL (50-300)
[2024-05-17 14:34] LABS: Immunoglobulin G Subclass 1 702 mg/dL (382-929); Immunoglobulin G Subclass 2 304 mg/dL (241-700); Immunoglobulin G Subclass 3 37 mg/dL (22-178); Immunoglobulin G Subclass 4 92.2 mg/dL (4-86); Immunoglobulin G Total 1172 mg/dL (600-1640)
== END 2024-05-15 15:02 | disposition home or self-care (01) ==
LOC: HO.LAB 15:01
PROVIDERS: PCP Internal Medicine; Visit Provider Nurse Practitioner Family
DX: Z87.01 Personal history of pneumonia (recurrent) (principal)
CPT/HCPCS: 36415; 82784

== ENCOUNTER 2024-05-29 09:38 | Outpatient (AMB) | payer MEDICAID, SELFPAY ==
--- NOTE | 2024-05-28 19:29 | MHC.OFFVIS ---
Vital Signs 05/29/24 09:57 Height 5 ft 7 in Weight 280 lb BMI 43.8 BP 118/68 Blood Pressure Location Lt brachial Position Sitting Pulse 102 H Pulse Source Pulse Oximeter Pulse Oximetry (%) 96 Oxygen Delivery Method Room Air Intake Visit Reasons: Dyspnea Site Technician Required: No Complex Manager: Complex Manager offered & declined Accompanied by: Self / Same As Patient Allergies Penicillins [PENICILLINS] Allergy (Unknown, Verified 05/29/24 10:01) RASH Medication List - Last Reconciled 05/29/24 by Cinthya Padgett LPN acetaminophen ER 650 mg PO Q8H PRN albuterol sulfate 90 mcg/actuation (Ventolin HFA) 2 puffs inhalation Q4H PRN aspirin 81 mg PO DAILY bupropion HCl XL 150 mg PO DAILY esomeprazole magnesium (Nexium) 40 mg PO DAILY famotidine 40 mg PO BEDTIME 90 days fluticasone furoate-vilanterol 200-25 mcg/dose (Breo Ellipta) 1 inh inhalation DAILY ctaoun-poxkuhec-xtryqps 36,000-114,000- 180,000 unit (Creon) 2 caps PO TID magnesium oxide 400 mg PO BEDTIME methadone (Methadone Intensol) 125 mg PO DAILY mirtazapine 15 mg PO BEDTIME polyethylene glycol 3350 (Miralax) 17 grams PO DAILY PRN quetiapine 50 mg PO BID sennosides (Natural Senna Laxative) 17.2 mg (2 x 8.6 mg) PO BEDTIME HPI HPI Dyspnea: Details: Yaniv is a pleasant 38 year old male, former smoker with 20 pack year history, quit 2 years ago with underlying h/o substance abuse maintained on methadone and GERD. At baseline, he has been moderately controlled on Breo 200 mcg and albuterol MDI PRN, continues to report intermittent dyspnea, wheezing and chest tightness. He [place] [facility] [place] revealed new mass-like consolidation in the left upper lobe (1.1 cm). Patchy opacities in the dependent portions of the left upper lobe, left lower lobe, and right lower lobe, suggestive of multifocal pneumonia or aspiration pneumonia. He was started on Ertapenem while in hospital, BC X2 negative and no leukocytosis. Of note tox screen + opioids, fentanyl, methadone, marijuana and cocaine. He was discharged with clindamycin x 7 days. Unfortunately repeat chest CT revealed minimal improvement, however resolution of SIERRA mass like consolidation and was placed on Vantin. He notes overall improvements since completing. Continues with dyspnea, minimal cough. Of note, he was referred to ENT however missed his appt and was r/s 6 months out. At the last visit, an order for 1L supplemental oxygen NOC was ordered as prior sleep study revealed TYSON, could not tolerated CPAP therapy and returned equipment. Unfortunately, he never received supplemental oxygen. [facility] Medical History (Updated 04/23/24 @ 19:31 by Kendra Fine, [facility]) Exocrine pancreatic insufficiency Polysubstance abuse No known health problems Social History Household Members: Family [facility] Do you presently have visiting nurse or other home services: No Alcohol intake: former Patient Tobacco Use Status: Former Tobacco user Substance Use Type: Marijuana service: No Review of Systems Const Denies fever(s) and Denies headache(s) Eyes Denies dry eyes, Denies irritation and Denies itchy eyes ENT Reports Normal hearing present, Denies headache(s), Reports nasal congestion and Denies sore throat Card Denies chest pain, Denies chest pain at rest, Denies chest pain with activity, Denies claudication, Denies leg edema, Reports dyspnea on exertion, Denies orthopnea and Denies paroxysmal nocturnal dyspnea Resp Denies excessive phlegm production, Denies pain on inspiration, Denies pain with cough, Reports dyspnea on exertion and Denies stridor Musc Denies myalgias Neuro Reports Normal hearing present and Denies headache(s) Nnamdi/Lymph Denies lymphadenopathy Aller/Immun Denies itchy eyes and Denies seasonal rhinorrhea Physical Exam Vital Signs: Last Vital Signs Pulse 102 H 05/29/24 09:57 BP 118/68 05/29/24 09:57 Pulse Ox 96 05/29/24 09:57 Oxygen Delivery Method Room Air 05/29/24 09:57 BMI result Body Mass Index 43.8 Const General: cooperative, no acute distress, well developed and alert Nutritional Appearance: obese Orientation/consciousness: patient oriented x3 Limitations: no limitations HEENT Head: Yes normal to inspection, Yes normocephalic and Yes atraumatic Ears: hearing grossly normal bilaterally and external ears normal Eyes General: appearance normal, both eyes and all related structures Eyelids: Yes eyelids normal Sclerae: sclerae normal EOM: EOMs intact bilaterally Neck Neck: Yes normal visual inspection and Yes no lymphadenopathy Lymphatic: no lymphadenopathy noted Chest Chest palpation & inspection: normal inspection of the chest Resp Effort & Inspection: normal respiratory effort, able to speak in complete sentences, no audible wheezes, no stridor, not tachypneic, no tripod positioning and no use of accessory muscles Auscultation: clear to auscultation bilaterally Cardio Jugular venous distension: no JVD Rate: regular rate Rhythm: regular rhythm Skin Other: warm, dry General skin exam: no rashes or lesions noted Neuro General: patient oriented x3 Cranial nerves: Yes Normal hearing present Cognition (Neuro): normal cognition Gait exam (Neuro): Normal gait present Extrem General: Yes normal to inspection, Yes capillary refill normal, Yes no clubbing, cyanosis or edema and Yes no pedal edema Psych Appearance: grossly normal and well kempt Mental Status: mental status grossly normal Speech and movement: Normal speech and movement present and Clear speech present Affect: Anxious affect present Attitude: cooperative Thought process: Normal thought process present Thought content: Normal thought content present Insight: Fair insight present (Psych) Judgement: Fair judgement present (Psych) Results Reviewed Results Reviewed: [place] [id number] CT Scan Report Signed Patient: Yaniv Gutierrez MR#: [id number] : 1985 Acct:[id number] Age/Sex: 38 / M ADM Date: 05/12/24 Loc: HO.CT Attending Dr: Samantha Davis NP Ordering Physician: Samantha Davis NP Date of Service: 05/12/24 Procedure(s): CT chest wo IV con Accession Number(s): [id number] cc: Roma Bender NP; Samantha Davis NP~ Report Number: [id number]: Total DLP = 307.00 mGy-cm EXAMINATION: CT CHEST WITHOUT CONTRAST CLINICAL INFORMATION: Recurrent pneumonia. COMPARISON: CT angiogram chest dated March 11, 2024. TECHNIQUE: Multidetector volumetric CT imaging of the chest was done. Axial MIP volume rendering provided. Sagittal and coronal reformatted images were obtained. This CT examination was performed using dose optimization techniques as appropriate, variously including the following: *Automated exposure control *Adjustment of mA and/or kV according to patient size (this includes techniques or standardized protocols for targeted exams where dose is matched to indication/reason for exam; i.e. extremities or head) *Use of iterative reconstruction technique. DLP: 307 mGy centimeter. FINDINGS: ASSISTED LIVING MANAGER: Large body habitus. No hyperinflation. LUNGS: Small patchy and nodular pulmonary groundglass, left lung, right lower lung lobe, and right middle lung lobe. No bronchiectasis. No honeycombing. MEDIASTINUM: Prominent less than 1 cm lymph nodes. No pericardial effusion. Questionable secretions in the trachea. No aneurysm in the thoracic aorta. No pneumomediastinum. CORONARY ARTERY CALCIFICATION: No. PLEURA: No pleural effusion. No pneumothorax. No hemothorax. AXILLA: No lymphadenopathy or masses. UPPER ABDOMEN: Small hiatal hernia. Nonspecific mesenteric edema pattern prominent mesenteric lymph nodes. Small accessory spleen. Gallbladder is contracted. OSSEOUS STRUCTURES: No acute fracture or listhesis in the axial skeleton. No lytic or blastic lesions. Sternum is intact. Ribs are intact. Scapula are intact bilaterally. Included clavicles are intact. CT/CT chest wo IV con IMPRESSION: Multifocal pneumonia versus pneumonitis, similar morphology pattern since prior exam. Fleischner guidelines were followed. Electronically signed by: Tyrese Chase MD 05/12/2024 09:51 AM EST Dictated By: Tyrese De Leon MD Signed By: <Electronically signed by Tyrese Sanchez MD in OV> 05/12/24 0951 DD/ 0903 TD/TT: 05/12/2428 Assembler Brazer: Assessment & Plan Assessment & Plan (1) Asthma: Code(s): J45.909 - Unspecified asthma, uncomplicated Category: Medical (2) Dyspnea on exertion: Code(s): R06.09 - Other forms of dyspnea Category: Medical (3) History of recent pneumonia: Code(s): Z87.01 - Personal history of pneumonia (recurrent) Category: Medical (4) Nocturnal hypoxemia: Code(s): G47.34 - Idiopathic sleep related nonobstructive alveolar hypoventilation Category: Medical Plan Repeat chest CT revealed multifocal pneumonia versus pneumonitis, similar morphology pattern since prior exam. He was treated with Vantin and notes moderate improvement in symptoms overall. Will repeat chest CT in 2-3 months to assess for radiographic improvements.Will look into prior order for 1L supplemental oxygen at [facility], as order was sent but patient reportedly has yet to receive. Once established will send for overnight oximetry to ensure resolution. All questions were answered and patient is in agreement of plan. Will follow-up in three months or sooner if needed. Orders: Orders CT chest wo IV con 10 Weeks Z87.01 - Personal history of pneumonia (recurrent) Coding Level of Care Code Est Pt Level 4 (24098) Diagnoses Asthma J45.909 Dyspnea on exertion R06.09 History of recent pneumonia Z87.01 Nocturnal hypoxemia G47.34
[2024-05-29 09:57] VITALS: BP 118/68; PULSE 102; O2SAT 96; BMI 43.8
--- OUTSIDE RECORDS SUMMARY | 2024-05-29 10:27 | XMS_ITS | Encounter Summary ---
Author Organization [employer] Address [address] [facility] 7t [place] [address] Care Team Providers Care Microarray Analyst Name Role Phone Neetu Bah Primary Care Provider Roma Bender Primary Care Provider [phone] Neetu Bah Unavailable [phone] Lesia Tran MD Primary Care Provider + Encounter Details Date Type Department Care Team (Late st Contact Info) Description 09/29/2022 Abstract [facility] ADULT DENTAL [address] [place] [address] Trenton Wilkerson DDS [address] [place] [address] Social History Tobacco Use Types Packs/Day Years [...] Description 06/02/2024 10:00 AM EST Office Visit [facility] ADULT DENTAL [address] [place] [address] Trenton Wilkerson DDS [address] [place] [address] 06/15/2024 11:30 AM EDT Office Visit [facility] MEDICINE [address] [place] [address] Lesia Tran MD [address] [place] [address] documented as of this encounter Visit Diagnoses Not on filedocumented in this encounter Care Teams Microarray Analyst Relationship Specialty Start Date End Date Neetu Bah AGNP [address] [place] [address] PCP - General Family Medicine 11/28/20 01/13/23 Roma Bender FNP [address] [place] [address] PCP - General Family Medicine 01/14/23 12/06/23 Lesia Tran MD [address] [place] [address] PCP - General Internal Medicine 12/07/23 Neetu Bah AGNP [address] [place] [address] Family Medicine 01/14/23 09/02/23 documented as of this encounter
--- OUTSIDE RECORDS SUMMARY | 2024-05-29 10:27 | XMS_ITS | Encounter Summary ---
Author Organization [employer] Address [address] [place] [address] 7t [place] [address] Care Team Providers Care Automotive Teacher Name Role Phone Neetu Bah Primary Care Provider Roma Bender Primary Care Provider [phone] Neetu Bah Unavailable [phone] Lesia Tran MD Primary Care Provider + Reason for Visit * Reason Onset Date Comments New Patient 11/18/2022 Encounter Details Date Type Department Care Team (Late st Contact Info) Description 11/18/2022 Telephone [facility] [address] [place] [address] Koby Holland MD [address] [place], [place] [phone] New Patient Social History Tobacco Use Types [...] been transfer 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 EFFECTIVE SINCE 11/24/2022 * Telephone Encounter - Lisa Zarate Marianne - 11/18/2022 10:33 AM EDT Tc to Pt , informed that we do take insurance, but must call [employer] to change location. Once done, to please call back to facility at [phone] documented in this encounter Plan of Treatment Upcoming Encounters Date Type Department Care Team (Late st Contact Info) Description 06/02/2024 10:00 AM EST Office Visit [facility] [address] [place] [address] Trenton Wilkerson DDS [address] [place] [address] 06/15/2024 11:30 AM EDT Office Visit [facility] [address] [place] [address] Lesia Tran MD [address] [place] [address] documented as of this encounter Visit Diagnoses Not on filedocumented in this encounter Care Teams Automotive Teacher Relationship Specialty Start Date End Date Neetu Bah AGNP [address] [place] [phone] PCP - General Family Medicine 11/28/20 01/13/23 Roma Bender FNP [address] [place] [address] PCP - General Family Medicine 01/14/23 12/06/23 Lesia Tran MD [address] [place] [address] PCP - General Internal Medicine 12/07/23 Neetu Bah AGNP [address] [place] [address] Family Medicine 01/14/23 09/02/23 documented as of this encounter
--- OUTSIDE RECORDS SUMMARY | 2024-05-29 10:27 | XMS_ITS | Clinical Summary ---
Author Organization [facility] Address [address] [place] [address] Phone Care Team Providers Care Personal Financial Representative Name Role Phone Az Terrell Primary Care Provider [phone] Immunizations Immunization Administration Dates Next Due DTP [...] age to complete this topic Care Teams Personal Financial Representative Relationship Specialty Start Date End Date Az Terrell [address] [place] [address] PCP - General 11/13/16
--- OUTSIDE RECORDS SUMMARY | 2024-05-29 10:27 | XMS_ITS | Encounter Summary ---
Author Organization [employer] Address [address] [facility] [address] 7[address] [place] [address] Care Team Providers Care Malthouse Laborer Name Role Phone Lesia Tran MD Primary [...] Office Visit [facility] ADULT DENTAL [address] [place] [address] Trenton Wilkerson DDS [address] [place] [address] 06/15/2024 11:30 AM EDT Office Visit [facility] MEDICINE [address] [place] [address] Lesia Tran MD [address] [place] [address] documented as of this encounter Visit Diagnoses Not on filedocumented in this encounter Additional Health Concerns Assessment Noted Time PHQ-9 Depression Total Score: 21 024 2:23 PM EST documented as of this encounter Care Teams Malthouse Laborer Relationship Specialty Start Date End Date Lesia Tran MD [address] [place] [address] PCP - General Internal Medicine 12/07/23 documented as of this encounter
--- OUTSIDE RECORDS SUMMARY | 2024-05-29 10:27 | XMS_ITS | Encounter Summary ---
Author Organization [employer] Address [address] 7[address] [place] [address] Care Team Providers Care School Age Program Associate Name Role Phone Roma Bender Primary Care Provider [phone] Neetu Bah Unavailable [phone] Lesia Tran MD Primary Care Provider + Encounter Details Date Type Department Care Team (Late st Contact Info) Description 02/19/2023 Orders Only [facility]EDS [address] [place] [address] Roma Bender FNP [address] [place] [address] Other acute gastritis, presence of bleeding unspecified [...] Description 06/02/2024 10:00 AM EST Office Visit [facility] ADULT DENTAL [address] [place] [address] Trenton Wilkerson DDS [address] [place] [address] 06/15/2024 11:30 AM EDT Office Visit [facility] MEDICINE [address] [place] [address] Lesia Tran MD [address] [place] [address] documented as of this encounter Visit Diagnoses Diagnosis Other acute gastritis, presence of bleeding unspecified- Primary documented in this encounter Additional Health Concerns Assessment Noted Time PHQ-9 Depression Total Score: 11 023 3:14 PM EDT documented as of this encounter Care Teams School Age Program Associate Relationship Specialty Start Date End Date Roma Bender FNP [address] [place] [address] PCP - General Family Medicine 01/14/23 12/06/23 Lesia Tran MD [address] [place] [address] PCP - General Internal Medicine 12/07/23 Neetu Bah AGNP [address] [place] [address] Family Medicine 01/14/23 09/02/23 documented as of this encounter
--- OUTSIDE RECORDS SUMMARY | 2024-05-29 10:27 | XMS_ITS | Encounter Summary ---
Author Organization [employer] Address [address] [place] [address] 7t [place] [address] Care Team Providers Care Grocery Store Manager Name Role Phone Lesia Tarn MD Primary Care Provider + Reason for Visit * Reason Comments Dentures Encounter Details Date Type Department Care Team (Late st Contact Info) Description 05/03/2024 10:00 AM EST Office Visit [facility] ADULT DENTAL [address] [place] [address] Trenton Wilkerson, DDS [address] [place] [address] Complete edentulism, unspecified edentulism class (Primary Dx) [...] (full denture impression), Timeout Time: 0955 Location: [facility] Tooth: Maxilla and Mandible Procedure: Dentures Verified the above with patient, fast food assistant restaurant manager, and provider. Confirmed via patient's chart, intraorally and by radiographs. Stull Hewer: not applicable Chief Complaint Patient presents with [...] and in stable condition. NV: Bite reg Advertising Account Executive: Bola Bajwa Dentist: Trenton Wilkerson DDS documented in this encounter Plan of Treatment Upcoming Encounters Date Type Department Care Team (Late st Contact Info) Description 06/02/2024 10:00 AM EST Office Visit [facility] ADULT DENTAL [address] [place], [place] [phone] Trenton Wilkerson DDS [address] [place] [address] 06/15/2024 11:30 AM EDT Office Visit [facility] MEDICINE [address] [place] [address] Lesia Tran MD [address] [place] [address] Scheduled Orders Name Type Priority Associated Diagnoses [...] documented as of this encounter Care Teams Grocery Store Manager Relationship Specialty Start Date End Date Lesia Tran MD [address] [place] [phone] PCP - General Internal Medicine 12/07/23 documented as of this encounter
--- OUTSIDE RECORDS SUMMARY | 2024-05-29 10:27 | XMS_ITS | Encounter Summary ---
Author Organization [employer] Address [address] [facility] 7t [place] [address] Care Team Providers Care Juvenile Justice Officer Name Role Phone Neetu Bah Primary Care Provider Roma Bender Primary Care Provider [phone] Neetu Bah Unavailable [phone] Lesia Tran MD Primary Care Provider + Encounter Details Date Type Department Care Team (Late st Contact Info) Description 09/29/2022 Abstract [facility] ADULT DENTAL [address] [place] [address] Trenton Wilkerson DDS [address] [place] [address] Social History Tobacco Use Types Packs/Day Years [...] Description 06/02/2024 10:00 AM EST Office Visit [facility] ADULT DENTAL [address] [place] [address] Trenton Wilkerson DDS [address] [place] [address] 06/15/2024 11:30 AM EDT Office Visit [facility] MEDICINE [address] [place] [address] Lesia Tran MD [address] [place] [address] documented as of this encounter Visit Diagnoses Not on filedocumented in this encounter Care Teams Juvenile Justice Officer Relationship Specialty Start Date End Date Neetu Bah AGNP [address] [place] [address] PCP - General Family Medicine 11/28/20 01/13/23 Roma Bender FNP [address] [place] [address] PCP - General Family Medicine 01/14/23 12/06/23 Lesia Tran MD [address] [place] [address] PCP - General Internal Medicine 12/07/23 Neetu Bah AGNP [address] [place] [address] Family Medicine 01/14/23 09/02/23 documented as of this encounter
--- OUTSIDE RECORDS SUMMARY | 2024-05-29 10:27 | XMS_ITS | Encounter Summary ---
Author Organization [employer] Address [address] [facility] 7t [place] [address] Care Team Providers Care Geography Teacher Name Role Phone Roma Bender Primary Care Provider [phone] [facility] Bah [facility] [phone] Lesia Tran MD Primary Care Provider + Reason for Visit * Reason Onset Date Comments Medication Question 05/04/2023 Encounter Details Date Type Department Care Team (Late st Contact Info) Description 05/04/[address] [facility] MEDICINE [address] [place] [address] Roma Bender FNP [address] [place] [address] Medication Question Social History Tobacco Use Types [...] 50 MG tablet prescribed by pcp at [facility] today 05/04/23, was prescribed for 1 time daily but it was supposed to be 2 times daily. Any questions please contact [phone]. documented in this encounter Plan of Treatment Upcoming Encounters Date Type Department Care Team (Late st Contact Info) Description 06/02/2024 10:00 AM EST Office Visit [facility] ADULT DENTAL [address] [place] [address] Trenton Wilkerson DDS [address] [place] [address] 06/15/2024 11:30 AM EDT Office Visit [facility] MEDICINE [address] [place] [address] Lesia Tran MD [address] [place] [address] documented as of this encounter Visit Diagnoses Not on filedocumented in this encounter Additional Health Concerns Assessment Noted Time PHQ-9 Depression Total Score: 11 023 3:14 PM EDT documented as of this encounter Care Teams Geography Teacher Relationship Specialty Start Date End Date Roma Bender FNP [address] [place] [address] PCP - General Family Medicine 01/14/23 12/06/23 Lesia Tran MD [address] [place] [address] PCP - General Internal Medicine 12/07/23 Neetu Bah AGNP [address] [place] [phone] Family Medicine 01/14/23 09/02/23 documented as of this encounter
--- OUTSIDE RECORDS SUMMARY | 2024-05-29 10:27 | XMS_ITS | Encounter Summary ---
Author Organization [employer] Address [address] [facility] 7t [place] [address] Care Team Providers Care Community Outreach Specialist Name Role Phone Neetu Bah Primary Care Provider Roma Bender Primary Care Provider [phone] Neetu Bah Unavailable [phone] Lesia Tran MD Primary Care Provider + Encounter Details Date Type Department Care Team (Late st Contact Info) Description 09/28/2022 Abstract [facility] ADULT DENTAL [address] [place] [address] Trenton Wilkerson DDS [address] [place] [address] Social History Tobacco Use Types Packs/Day Years [...] Description 06/02/2024 10:00 AM EST Office Visit [facility] ADULT DENTAL [address] [place] [address] Trenton Wilkerson DDS [address] [place] [address] 06/15/2024 11:30 AM EDT Office Visit [facility] MEDICINE [address] [place] [address] Lesia Tran MD [address] [place] [address] documented as of this encounter Visit Diagnoses Not on filedocumented in this encounter Care Teams Community Outreach Specialist Relationship Specialty Start Date End Date Neetu Bah AGNP [address] [place] [address] PCP - General Family Medicine 11/28/20 01/13/23 Roma Bender FNP [address] [place] [address] PCP - General Family Medicine 01/14/23 12/06/23 Lesia Tran MD [address] [place] [address] PCP - General Internal Medicine 12/07/23 Neetu Bah AGNP [address] [place] [address] Family Medicine 01/14/23 09/02/23 documented as of this encounter
--- OUTSIDE RECORDS SUMMARY | 2024-05-29 10:28 | XMS_ITS | Encounter Summary ---
Author Organization [employer] Address [address] [facility] 7t [place] [address] Care Team Providers Care Corporate Safety Manager Name Role Phone Lesia Tran MD Primary Care Provider + Reason for Visit * Reason Onset Date Comments Results 05/24/2024 Encounter Details Date Type Department Care Team ([facility] st Contact Info) Description 05/24/2024 Telephone [facility] [address] [place] [address] Lesia Tran MD [address] [place] [address] Results Social History Tobacco Use Types Packs/Day Years [...] encounter Miscellaneous Notes * Telephone Encounter - Nahomy Velazco [place] - 05/24/2024 11:10 AM EST Tc to Samantha Davis NP office to confirm they received CT scan results. Spoke to Radha who confirmed results were received. * Telephone Encounter - Nahomy Velazco [place] - 05/24/2024 11:10 AM EST ----- Message from Lesia Tran MD sent at 05/16/2024 3:22 PM EST ----- CT scan of the chest on 05/12/2024 ordered by Samantha Davis REINFORCER, reviewed. Please call pulmonologyoffice where she works and make sure that they had the results will schedule follow-up for patient if needed. documented in this encounter Plan of Treatment Upcoming Encounters Date Type Department Care Team (Late st Contact Info) Description 06/02/2024 10:00 AM EST Office Visit [facility] [address] [place], [place] [phone] Trenton Wilkerson DDS [address] [place], [place] [phone] 06/15/2024 11:30 AM EDT Office Visit [facility] [address] [place], [place] [phone] Lesia Tran MD [address] [place], [place] [phone] documented as of this encounter Visit Diagnoses Not on filedocumented in this encounter Additional Health Concerns Assessment Noted Time PHQ-9 Depression Total Score: 21 024 2:23 PM EST documented as of this encounter Care Teams Corporate Safety Manager Relationship Specialty Start Date End Date Lesia Tran MD [address] [place] [address] [phone] PCP - General Internal Medicine 12/07/23 documented as of this encounter
--- OUTSIDE RECORDS SUMMARY | 2024-05-29 10:28 | XMS_ITS | Encounter Summary ---
Author Organization [employer] Address [address] [facility] [address] [place] [address] Care Team Providers Care [facility] Name Role Phone Lesia Tran MD Primary Care Provider + Encounter Details Date Type Department Care Team (Late st Contact Info) Description 05/15/2024 Orders Only GENERIC EXTERNAL DATA DEPARTMENT Provider, Generic External Data Social History Tobacco Use Types Packs/Day Years [...] Description 06/02/2024 10:00 AM EST Office Visit [facility] [address] [place] [address] Trenton Wilkerson DDS [address] [place] [address] 06/15/2024 11:30 AM EDT Office Visit [facility] [address] [place] [address] Lesia Tran MD [address] [place] [address] documented as of this encounter Procedures Procedure Name Priority Date/Time Associated Diagnosis Comments IMMUNOGLOBULIN G SUBCLASSES PANEL Routine 05/15/2024 3:30 PM EST IMMUNOGLOBULINS, QUANTITATIVE, IGA, IGG, IGM Routine 05/15/2024 3:30 PM EST documented in this encounter Results * (ABNORMAL) Immunoglobulin G Subclasses Panel (05/15/2024 3:30 PM EST) IgG Subclass 1 702 382 - 929 mg/dL [facility] IgG Subclass 2 304 241 - 700 mg/dL [facility] IgG Subclass 3 37 22 - 178 mg/dL [facility] IgG Subclass 4 92.2(A) 4 - 86 mg/dL [facility] Immunoglobulin G, Serum 1172 600 - 1640 mg/dL [facility] Comment:THIS TEST WAS PERFOR MED AT:[facility] [place] [address]PIIIRANABELL AMAYA MD 05/15/2024 3:30 PM EST 05/15/2024 3:30 PM EST us Generic External Data Provider LAB BLOOD ORDERAB LES Final Result Performing Organization Address [facility] Phone Number [facility] [address] [place] [address] [phone] * (ABNORMAL) Immunoglobulins, Quantitative, IgA, IgG, IgM (05/15/2024 3:30 PM EST) IMMUNOGLOBULIN G 1274 600 - 1640 mg/dL [facility] IMMUNOGLOBULIN A 542(A) 47 - 310 mg/dL [facility] Immunoglobulin M 277 50 - 300 mg/dL [facility] Comment:THIS TEST WAS PERFOR MED AT:[facility] [place] [address]ICXKYANABELL AMAYA MD 05/15/2024 3:30 PM EST 05/15/2024 3:30 PM EST us Generic External Data Provider LAB BLOOD ORDERAB LES Final Result Performing Organization Address [facility] Phone Number [facility] [address] [place] [phone] documented in this encounter Visit Diagnoses Not on filedocumented in this encounter Additional Health Concerns Assessment Noted Time PHQ-9 Depression Total Score: 21 024 2:23 PM EST documented as of this encounter Care Teams [facility] Relationship Specialty Start Date End Date Lesia Tran MD [address] [place] [phone] PCP - General Internal Medicine 12/07/23 documented as of this encounter
--- OUTSIDE RECORDS SUMMARY | 2024-05-29 10:28 | XMS_ITS | Encounter Summary ---
Author Organization [employer] Address [address] [facility] 7[address] [place] [address] Care Team Providers Care Nurses' Aide Name Role Phone Lesia Tran MD Primary Care Provider + Reason for Visit * Reason Onset Date Comments Med Refill 05/15/2024 Encounter Details Date Type Department Care Team (Late st Contact Info) Description 05/15/[address] [facility] [address] [place] [address] Lesia Tran MD [address] [place] [address] Med Refill Social History Tobacco Use Types [...] 9:47 AM EST Medication was sent to [id number] on 05/01/24 with 1 refill. * Telephone Encounter - Kenisha Mtz - 05/15/2024 9:43 AM EST TC from pt requesting medication refill. Medications needing refill : hydrOXYzine pamoate (Vistaril) 25 MG capsule To be sent to: [facility]/pharmacy #[id number] - [address] documented in this encounter Plan of Treatment Upcoming Encounters Date Type Department Care Team (Late st Contact Info) Description 06/02/2024 10:00 AM EST Office Visit [facility] [address] [place] [address] Trenton Wilkerson DDS [address] [place], [place] [phone] 06/15/2024 11:30 AM EDT Office Visit [facility] [address] [place], [place] [phone] Lesia Tran MD [address] [place] [address] documented as of this encounter Visit Diagnoses Not on filedocumented in this encounter Additional Health Concerns Assessment Noted Time PHQ-9 Depression Total Score: 21 024 2:23 PM EST documented as of this encounter Care Teams Nurses' Aide Relationship Specialty Start Date End Date Lesia Tran MD [address] [place] [address] [phone] PCP - General Internal Medicine 12/07/23 documented as of this encounter
--- OUTSIDE RECORDS SUMMARY | 2024-05-29 10:28 | XMS_ITS | Encounter Summary ---
Author Organization [employer] Address [address] [facility] [address] [place] [address] Care Team Providers Care Shingle Sawyer Name Role Phone Lesia Tran MD Primary Care Provider + Reason for Visit * Reason Onset Date Comments Results: Chest CT 05/12/24 05/12/2024 Encounter Details Date Type Department Care Team (Late st Contact Info) Description 05/12/2024 Telephone [facility] [address] [place] [address] Bobbi Deal, ROXANN Results: Chest CT 05/12/24 [...] Ordered by Selene Davis NP Pulmonolgy @ [facility] CT Scan Report Signed Patient: Yaniv Gutierrez MR#: [id number] : 1985 Acct:[id number] Age/Sex: 38 / M ADM Date: 05/12/24 Loc: HO.CT Attending Dr: Samantha Davis FREELANCE GRAPHIC DESIGNER Ordering Physician: Samantha Davis NP Date of Service: 05/12/24 Procedure(s): CT chest wo IV con Accession Number(s): [id number] cc: Roma Bender NP; Samantha Davis NP~ [...] 02:48 PM EST RP Last pulmonolgy note [facility] 03/27/[address] [facility] Pul[facility] [address] [place] [phone] Patient: Yaniv Gutierrez MR#: [id number] : 1985 Acct:[id number] Age/Sex: 38 / M ADM/SER Date: 03/27/24 [...] the last visit, he was admitted to [facility] 03/11-03/14 for aspiration pneumonia. He presented to [...] + opioids, fentanyl, methadone, marijuana and cocaine. PIANO PLAYER performed which revealed no aspiration however recommended [...] Description 06/02/2024 10:00 AM EST Office Visit [facility] [address] [place], [place] [phone] Trenton Wilkerson DDS [address] [place], [place] [phone] 06/15/2024 11:30 AM EDT Office Visit [facility] [address] [place], [place] [phone] Lesia Tran MD [address] [place], [place] [phone] documented as of this encounter Visit Diagnoses Not on filedocumented in this encounter Additional Health Concerns Assessment Noted Time PHQ-9 Depression Total Score: 21 024 2:23 PM EST documented as of this encounter Care Teams Shingle Sawyer Relationship Specialty Start Date End Date Lesia Tran MD [address] [place] [address] PCP - General Internal Medicine 12/07/23 documented as of this encounter
--- OUTSIDE RECORDS SUMMARY | 2024-05-29 10:28 | XMS_ITS | Clinical Summary ---
Author Organization [employer] Address [address] [facility] 7[address] [place] [address] Care Team Providers Care Inker Machine Name Role Phone Lesia Tran MD Primary [...] eorder (will not trigger notification to Pharmacy)) Active Problems Problem Noted Date Diagnosed Date History of substance use disorder 04/12/2024 Complete edentulism 04/12/2024 TYSON (obstructive sleep apnea) 02/11/2024 Overview (02/11/2024): Sleep study at [facility]: moderate TYSON with nocturnal hypoxemia, <88% 24.1 minutes, lowest 77%. Assessment & Plan (02/11/2024 3:58 PM EST): Obtain results form Cardiology office [facility] [place] Mild persistent asthma 02/11/2024 Assessment & Plan (02/11/2024 4:00 PM EST): Doing well on Breo, fu by [facility] pulmonary Advised re weight reduction. Declined Influenza [...] Plan (02/11/2024 4:01 PM EST): FU by [facility] GI, on Protonix, senna prn constipation Advised [...] ID: Yaniv is a 37 y.o. White [place]ian choose not to disclose-identified cis- male (pronouns [...] for 2.5 years, currently on methadone at [facility], 128mg with a plan on taper down [...] PM EST): Seen by MH provider at [facility], will bring meds at next appt. He feels safe at home and is able to reach out for safety. Alcohol use disorder in remission 06/10/2023 Cocaine use disorder in remission 06/10/2023 Routine health maintenance 05/29/2023 Assessment & Plan (05/29/2023 2:23 PM EST): -Pt brought labs done by his [facility] [facility] in 04/06/2023 hb 11.7,chem was normal [...] 248 Pt brought labs done by his [facility] in 04/06/2023 hb 11.7,chem was [...] PM EST): Doing well on Methadone at [facility], has take home bottles Advised to decrease use of THC Encounters * This document contains information received from the source organization and may not represent a complete record from that organization. Date Type Department Care Team Description 05/24/2024 Telephone [facility] [place] [facility] [place] [address] Lesia Tran MD Results 05/22/2024 Travel 05/19/2024 Telephone [facility] [place] [facility] [place] [address] Lesia Tran MD Results 05/15/2024 Orders Only GENERIC EXTERNAL DATA DEPARTMENT Provider, Generic External Data 05/15/2024 Telephone [facility] [place] [address] Lesia Tran MD Med Refill 05/12/2024 Telephone [facility] [place] [address] Bobbi Deal, ROXANN Results: Chest CT 05/12/24 05/03/2024 10:00 AM EST Office Visit [facility] ADULT DENT[facility] [place] [address] Trenton Wilkerson DDS Complete edentulism, unspecified edentulism class (Primary Dx) 04/30/2024 Travel 04/17/2024 Refill [facility] [place] [address] Lesia Tran MD 04/12/2024 2:30 PM EST Office Visit [facility] [address] Trenton Wilkerson DDS Complete edentulism, unspecified edentulism class (Primary Dx) 04/12/2024 Travel 04/11/2024 Travel 04/07/2024 Patient Outreach [facility] [place] [place] [address] Lesia Tran MD Pre-visit Planning (SDOH screening completed on 03/30/2024 Telephone [facility] [address] [place], [place] [phone] Renata Méndez, RN Results 03/11/2024 Orders Only GENERIC EXTERNAL DATA DEPARTMENT Provider, Generic External Data from Last 3 Months Immunizations Name Administration [...] 10:00 AM EST Office Visit [facility] ADULT [facility]ENT[facility] [address] [place] [address] Trenton Wilkerson DDS [address] [place] [address] 06/15/2024 11:30 AM EDT Office Visit [facility] [address] [place] [address] Lesia Tran MD [address] [place] [address] Health Maintenance Due Date Last Done Comments [...] IGG, IGM Routine 05/15/2024 3:[address] CHEST WO CONTRAST Routine 05/12/2024 9:03 AM EST DENTURE IMPRESSION Routine 05/03/2024 10 :00 AM EST CASE PRESENTATION, DETAILED AND EXTENSIVE TREATMENT PLANNING Routine 04/12/2024 [...] serious comorbidity in adult, unspecified BMI (CMS/HCC) INTRAORAL - COMPLETE SERIES OF RADIOGRAPHIC IMAGES Routine 02/20/2014 12:00 AM EST from Last 3 Months or Most Recently Relevant to Health Maintenance Results * (ABNORMAL) Immunoglobulin G Subclasses Panel (05/15/2024 3:30 PM EST) IgG Subclass 1 702 382 - 929 mg/dL [facility] IgG Subclass 2 304 241 - 700 mg/dL [facility] IgG Subclass 3 37 22 - 178 mg/dL [facility] IgG Subclass 4 92.2(A) 4 - 86 mg/dL [facility] Immunoglobulin G, Serum 1172 600 - 1640 mg/dL [facility] Comment:THIS TEST WAS PERFOR MED AT:[facility] [place] [phone] AMAYA MD 05/15/2024 3:30 PM EST 05/15/2024 3:30 PM EST us Generic External Data Provider LAB BLOOD ORDERAB LES Final Result [facility] [address] [place] [phone] * (ABNORMAL) Immunoglobulins, Quantitative, IgA, IgG, IgM (05/15/2024 3:30 PM EST) IMMUNOGLOBULIN G 1274 600 - 1640 mg/dL [facility] IMMUNOGLOBULIN A 542(A) 47 - 310 mg/dL [facility] Immunoglobulin M 277 50 - 300 mg/dL [facility] Comment:THIS TEST WAS PERFOR MED AT:[facility] [place] [phone] AMAYA MD 05/15/2024 3:30 PM EST 05/15/2024 3:30 PM EST us Generic External Data Provider LAB BLOOD ORDERAB LES Final Result Performing Organization Address City/State/[facility] Co de Phone Number [facility] [address] [place] [phone] * CT Chest w/o Contrast (05/12/2024 9:03 AM EST) Anatomical Region Laterality Modality Body, Chest Computed Tomogra phy 05/12/2024 9:03 AM EST Narrative 05/12/2024 9:54 AM EST ? [facility] ?[address] ?[place] [address] ? CT Scan Report ? Signed ? Patient: Yaniv Gutierrez ?MR#: [id number] ? : 1985 ?Acct:[id number] ? Age/Sex: 38 / M ?ADM Date: 05/12/24 ? Loc: HO.CT ? Attending Dr: Samantha Davis NP ? Ordering Physician: Samantha Davis NP ?? Date of Service: 05/12/24 ?? Procedure(s): CT chest wo IV con ?? Accession Number(s): [id number] ? cc: Roma Bender TITLE INSURANCE EXAMINER; Samantha Davis TITLE INSURANCE EXAMINER ? Report Number: ?? [id number]: Total DLP = ??307.00 mGy-cm ?? EXAMINATION: [...] DLP: 307 mGy centimeter. ? FINDINGS: ? FLUME WORKER: Large body habitus. No hyperinflation. ? LUNGS: [...] DD/ 0903 ? TD/TT: 05/12/24 0928 ? Motorcoach Driver: ? Procedure Note Donotuseinterpreter, Image - 05/12/[address] [address] [place] Scan Report Signed Patient: Yaniv Gutierrez GMR#: [id number] : 1985Acct:[id number] Age/Sex: 38 / MADM Date: 05/12/24 Loc: HO.CT Attending Dr: Samantha Davis NP Ordering Physician: Samantha Davis NP Date of Service: 05/12/24 Procedure(s): CT chest wo IV con Accession Number(s): [id number] cc: Roma Bender TITLE INSURANCE EXAMINER; Samantha Davis NP Report Number: [id number]: Total DLP = 307.00 mGy-cm EXAMINATION: CT [...] reconstruction technique. DLP: 307 mGy centimeter. FINDINGS: FLUME WORKER: Large body habitus. No hyperinflation. LUNGS: Small [...] <Electronically signed by Tyrese Sanchez MDin OV> 05/12/2451 DD/ 2 TD/TT: 05/12/24927 Motorcoach Driver: [facility] External Provider IMG CT PROCEDURES Final Result * FL BARIUM SWALLOW MODIFIED (03/13/2024 1:55 PM EST) Anatomical Region Laterality Modality Head, Neck Radiographic Elizabet ging 03/13/2024 1:55 PM EST Narrative 03/14/2024 2:45 PM EST ? [facility] ?[address] ?[place] [address] ? Fluoroscopy Report ? Signed ? Patient: Yaniv Gutierrez ?MR#: [id number] ? : 1985 ?Acct:[id number] ? Age/Sex: 38 / M ?ADM Date: 03/11/24 ? Loc: HO.S3 ?369-1 ? Attending Dr: Jose Martin Aguiar MD ? Ordering Physician: Jose Martin Aguiar MD ?? Date of Service: 03/13/24 ?? Procedure(s): FL Modified Barium Swallow ?? Accession Number(s): [id number] ? cc: Jose Martin Aguiar MD; Yesica [...] signed by Lazarus Petty in OV> ? 03/14/24 1443 ?<Electronically signed by Compa Wilder MD in OV> ? 03/14/24 1445 ? DD/ 1355 ? TD/TT: 03/13/24 1417 ? Motorcoach Driver: ? Procedure Note Ramiro, Image - 03/14/2024 [place] [address] Fluoroscopy Report Signed Patient: Yaniv Gutierrez GMR#: [id number] : 1985Acct:[id number] Age/Sex: 38 / MADM Date: 03/11/24 Loc: HO.S3 369-[address]: Jose Martin Aguiar MD Ordering Physician: Jose Martin Augiar MD Date of Service: 03/13/24 Procedure(s): FL Modified Barium Swallow Accession Number(s): [id number] cc: Jose Martin Aguiar MD; Yesica Land [...] 03/14/24 1445 DD/ 1355 TD/TT: 03/13/24 1417 Motorcoach Driver: [facility] External Provider IMG FLU OROSCOPY PROCEDURES Final Result * Lactic Acid (03/11/2024 3:34 PM EST) Lactic Acid 1.0 0.5 - 2.0 mmol/L [facility] 03/11/2024 3:34 PM EST 03/11/2024 3:39 PM EST Generic External Data Provider LAB BLOOD ORDERAB LES Final Result Performing Organization Address City/State/[facility] Co de Phone Number [facility] [address] [place] [phone] * CTA Chest PE Protocal (03/11/2024 1:18 PM EST) Anatomical Region Laterality Modality Body, Chest Computed Tomogra phy 03/11/2024 1:18 PM EST Narrative 03/11/2024 2:51 PM EST ? [facility] ?[address] [place] [address] ?[place] [address] ? CT Scan Report ? Signed ? Patient: Matt,Amadeo ?MR#: [id number] ? : 1985 ?Acct:[id number] ? Age/Sex: 38 / M ?ADM Date: 12/07/24 ? Loc: HO.ED ? Attending Dr: ? Ordering Physician: Les Blanchard MD ?? Date of Service: 03/11/24 ?? Procedure(s): CT angio chest PE protocol ?? Accession Number(s): [id number] ? cc: [facility]; Les Blanchard MD ? EXAMINATION: ?? [...] DD/ 1318 ? TD/TT: 03/11/24 1328 ? Motorcoach Driver: ? Procedure Note Donjess, Image - 03/11/[address] [place] [address] [address] Scan Report Signed Patient: Yaniv Gutierrez GMR#: [id number] : 1985Acct:[id number] Age/Sex: 38 / MADM Date: 03/11/24 Loc: HO.ED Attending Dr: Ordering Physician: Les Blanchard MD Date of Service: 03/11/24 Procedure(s): CT angio chest PE protocol Accession Number(s): [id number] cc: [facility]; Les Blanchard MD EXAMINATION: CT ANGIOGRAM [...] 03/11/24 1448 DD/ 1318 TD/TT: 03/11/24 1328 Motorcoach Driver: [facility] External Provider IMG CT PROCEDURES Edited Result - Final * D Dimer High Sensitivity (03/11/2024 11:22 AM EST) D Dimer High Sensitivity 373 NG/ML [facility] Comment:D-DIMER HS REFERENCE RANGENote: Our [...] Provider LAB BLOOD ORDERAB LES Final Result [facility] [address] [place] [address] [phone] * XR Chest 1 View (03/11/2024 11:22 AM EST) Anatomical Region Laterality Modality Chest Radiographic Elizabet ging 03/11/2024 11:2 2 AM EST Narrative 03/11/2024 12:17 PM EST ? [facility] ?[address] ?[place] [address] ?XRay Report ? Signed ? Patient: MattAmadeo ?MR#: [id number] ? : 1985 ?Acct:[id number] ? Age/Sex: 38 / M ?ADM Date: 03/11/24 ? Loc: HO.ED ? Attending Dr: ? Ordering Physician: Les Blanchard MD ?? Date of Service: 03/11/24 ?? Procedure(s): XR chest 1V ?? Accession Number(s): [id number] ? cc: [facility]; Les Blanchard MD ? EXAMINATION: ?? [...] DD/ 1122 ? TD/TT: 03/11/24 1138 ? Motorcoach Driver: PN ? Procedure Note Donotuseinterpreter, Image - 03/11/[address] [address] XRay Report Signed Patient: Yaniv Gutierrez GMR#: [id number] : 1985Acct:[id number] Age/Sex: 38 / MADM Date: 03/11/24 Loc: HO.ED Attending Dr: Ordering Physician: Les Blanchard MD Date of Service: 03/11/24 Procedure(s): XR chest 1V Accession Number(s): [id number] cc: [facility]; Les Blanchard MD EXAMINATION: XR CHEST [...] 03/11/24 1214 DD/ 1122 TD/TT: 03/11/24 1138 Motorcoach Driver: PN us [facility] External Provider IMG XR PROCEDURES Edited Result - Final * Partial Thromboplastin Time, Activated (APTT) (03/11/2024 11:22 AM EST) Partial Thromboplastin Time 32.0 26.0 - 36.8 SEC [facility] Comment:For information rega rding the monitoring of direct thrombininhibitors, please refer to Pharmacy. 03/11/2024 11:2 2 AM EST 03/11/2024 11:31 AM EST Generic External Data Provider LAB BLOOD ORDERAB LES Final Result Performing Organization Address [facility] Co de Phone Number [facility] [address] [place] [phone] * SARS-CoV-2 RNA, Influenza A/B, and RSV RNA, Ql NAAT (03/11/2024 9:28 AM EST) Influenza A PCR NEGATIVE Negative [facility] Influenza B PCR NEGATIVE Negative [facility] Resp Syncy Virus RNA Qual PCR NEGATIVE Negative [facility] SARS COV2 PCR NEGATIVE Negative [facility] Comment:All test results mus t [...] use by authorized laboratories.Testing performed on the [employer] GeneXpert utilizingreal-time RT-PCR.All SARS CoV2 and positive influenza A/B results arereported to [facility]. 03/11/2024 9:28 AM EST 03/11/2024 9:32 AM EST Generic External Data Provider LAB MICROBIOLOGY - GENERAL ORDERABLES Final Result Performing Organization Address [facility]/ZIP Co de Phone Number [facility] [address] [place] [phone] * (ABNORMAL) Drug Monitoring, Panel 1, Screen, Urine (03/11/2024 9:28 AM EST) Opiate Screen Urine POSITIVE(A) Not Detect [facility] Comment:Opiate cut-off is 30 0 ng/mL.Positive results are unconfirmed and should not be used fornon-medical purposes. Barbiturates, Urine Not Detected Not Detect [facility] Comment:Barbiturate cut-off is 200 ng/mL.Positive results are unconfirmed and should not be used fornon-medical purposes. Phencyclidine Screen Urine Not Detected Not Detect [facility] Comment:Phencyclidine cut-of f is 25 ng/mL.Positive results are unconfirmed and should not be used fornon-medical purposes. Amphetamine Screen Urine Not Detected Not Detect [facility] Comment:Amphetamine cut-off is 1000 ng/mL.Positive results are unconfirmed and should not be used fornon-medical purposes. Benzodiazepines Screen Urine Not Detected Not Detect [facility] Comment:Benzodiazepine cut-o ff is 200 ng/mL.Positive results are unconfirmed and should not be used fornon-medical purposes. Cocaine Screen Urine POSITIVE(A) Not Detect [facility] Comment:Cocaine cut-off is 3 00 ng/mL.Positive results are unconfirmed and should not be used fornon-medical purposes. Cannabinoid Screen Urine POSITIVE(A) Not Detect [facility] Comment:Cannabinoid cut-off is 50 ng/mL.Positive results are unconfirmed and should not be used fornon-medical purposes. Methadone Screen, Urine Positive(A) Not Detect ng/mL [facility] Comment:Methadone cut-off is 300 ng/mL.Positive results are unconfirmed and should not be used fornon-medical purposes. FENTANYL URINE POSITIVE(A) Not Detect [facility] Comment:Fentanyl cut-off is 1 ng/mL.Positive results are unconfirmed and should not be used fornon-medical purposes. Oxycodone Urine Screen Not Detected Not Detect ng/mL [facility] Comment:Oxycodone cut-off is 100 ng/mL.Positive results are unconfirmed and should not be used fornon-medical purposes. Buprenorphine Screen Not Detected Not Detect ng/mL [facility] Comment:Buprenorphine cut-of f is 5 ng/mL.Positive results are unconfirmed and should not be used fornon-medical purposes. 03/11/2024 9:28 AM EST 03/11/2024 3:45 PM EST us Generic External Data Provider LAB URINE ORDERAB LES Final Result Performing Organization Address City/[facility]/ZIP Co de Phone Number [facility] [address] [place] [phone] * Urinalysis w/reflex microscopic (03/11/2024 9:28 AM EST) Color Urine Yellow [facility] Appearance Urine Clear [facility] PH 7.0 5.0 - 9.0 [facility] Glucose Urine UA Negative Negative mg/dL [facility] Urine Blood Negative Negative [facility] Specific [place] - Urine 1.015 1.005 - 1.025 [facility] Urine Protein Negative Neg-Trace mg/dL [facility] Urine Ketones Negative Negative mg/dL [facility] Nitrite Urine Negative Negative [facility] Leukocyte Esterase Urine Negative Negative [facility] 03/11/2024 9:28 AM EST 03/11/2024 9:32 AM EST Narrative [facility] - 03/11/2024 9:37 AM EST [id number], Clean Catch Generic External Data Provider LAB URINE ORDERAB LES Final Result Performing Organization Address City/[facility]/ZIP Co de Phone Number [facility] [address] [place] [phone] * High Sensitivity Troponin I (03/11/2024 9:09 AM EST) TROPONIN I HIGH SENSITIVITY <2.7 <3.5 - 35.0 ng/L [facility] Comment:The Moore high sens itivity Troponin-I results should beused in conjunction with other diagnostic information suchas ECG, clinical observations and information, and patientsymptoms to aid in the diagnosis of DE. 03/11/2024 9:09 AM EST 03/11/2024 9:13 AM EST us Generic External Data Provider LAB BLOOD ORDERAB LES Final Result [facility] [address] [place] [address] [phone] * (ABNORMAL) CBC auto differential (03/11/2024 9:09 AM EST) White Blood Count 15.9(H) 4.8 - 10.8 X10*3/uL [facility] Red Blood Count 4.43(L) 4.60 - 5.80 X10*6/uL [facility] Hemoglobin 11.6(L) 14.0 - 18.0 g/dl [facility] Hematocrit 35.7(L) 42.0 - 52.0 % [facility] Mean Corpuscular Volume 80.6 80.0 - 98.0 fL [facility] Mean Corpuscular Hemoglobin 26.2(L) 27.0 - 33.0 pg [facility] Mean Corpuscular HGB Conc 32.5 31.0 - 36.0 g/dl [facility] Red Cell Distribution Width 14.3 11.0 - 16.0 % [facility] Platelet Count 258 160 - 400 X10*3/uL [facility] Mean Platelet Volume 8.7(L) 9.4 - 12.4 fL [facility] Neutrophils Percent Auto 84.7(H) 45 - 73 % [facility] Imm Gran Pct Auto 0.4 0.0 - 0.4 % [facility] Lymphocytes Percent Auto 6.5(L) 20 - 40 % [facility] Monocytes Percent Auto 6.1 2 - 11 % [facility] Eosinophils Percent Auto 2.0 0 - 4 % [facility] Basophils Percent Auto 0.3 0 - 2 % [facility] NRBC Pct Auto 0.0 0.0 - 0.2 /100WBC [facility] Neutrophils Absolute Auto 13.5(H) 2.0 - 8.3 x10*3/uL [facility] Imm Gran Abs Auto 0.07(H) 0.00 - 0.03 X10*3/uL [facility] Lymphocytes Absolute Auto 1.0(L) 1.2 - 4.9 X10*3/uL [facility] Monocytes Absolute Auto 1.0 0.1 - 1.2 X10*3/uL [facility] Eosinophils Absolute Auto 0.3 0.0 - 0.4 X10*3/uL [facility] Basophils Absolute Auto 0.1 0.0 - 0.2 X10*3/uL [facility] NRBC Abs Auto 0.000 0.0 - 0.012 X10*3/uL [facility] 03/11/2024 9:09 AM EST 03/11/2024 9:13 AM EST us Generic External Data Provider LAB BLOOD ORDERAB LES Final Result [facility] [address] [place] [phone] [phone] * (ABNORMAL) Comprehensive Metabolic Panel (03/11/2024 9:09 AM EST) Sodium 137 135 - 145 mmol/L [facility] Potassium 3.9 3.3 - 5.1 mmol/L [facility] Chloride 103 96 - 108 mmol/L [facility] Carbon Dioxide 25 22 - 29 mmol/L [facility] Anion Gap 13 12 - 20 [facility] Urea Nitrogen (BUN) 10 9 - 16 mg/dL [facility] Creatinine, Serum 0.83 0.5 - 1.4 mg/dL [facility] Creatinine Clr Calc Pharmacy 151.1 [facility] Comment:eGFR (calculated fro m the MDRD study equation) and eCrCl(calculated from the Cockcroft-Gault equation) are based ondifferent parameters and may not yield comparable results.If eCrCl result is absurd, please check patient'sheight/weight. Estimated Glomerular Filt Rate >60 [facility] Comment:Chronic Kidney Disea se: Estimated GFR < 60 mL/min/[id number] Kidney Disease: Estimated GFR < 15 mL/min/1.73m2 Glucose 115 60 - 115 mg/dL [facility] Calcium 9.0 8.4 - 10.2 mg/dL [facility] Bilirubin, Total 0.7 0.0 - 1.0 mg/dL [facility] Aspartate Amino Transferase 57(H) 5 - 37 U/L [facility] Alanine Aminotransferase 31 0 - 40 U/L [facility] Total Protein 7.0 6.5 - 8.0 g/dL [facility] Albumin Level 3.7 3.5 - 5.0 g/dL [facility] Alkaline Phosphatase 92 39 - 117 U/L [facility] 03/11/2024 9:09 AM EST 03/11/2024 9:13 AM EST us Generic External Data Provider LAB BLOOD ORDERAB LES Final Result Performing Organization Address City/State/[facility] Co de Phone Number [facility] [address] [place] [phone] * (ABNORMAL) Lipid Panel, Standard (06/08/2023 8:20 AM EST) Triglycerides 236(H) <150 mg/dL [facility] Comment:Desirable Triglyceri de: less than 150 mg/dLBorderline High Triglyceride 150-199 mg/dLHigh Triglyceride: 200-499 mg/dLVery High Triglyceride: greater than or equal to 5OO mg/dL Cholesterol 137 <200 mg/dL [facility] Comment:Desirable Cholestero l: less than 200 mg/dLBorderline High Cholesterol: 200-239 mg/dLHigh Cholesterol: greater than 239 mg/dL LDL Cholesterol Calculated 57 <100 mg/dL [facility] Comment:Desirable LDL: less than 100 mg/dLNear Optimal/Above Optimal LDL: 110- 129 mg/dLBorderline High LDL: 130-159 mg/dLHigh LDL: 160-189 mg/dLVery High LDL: greater than or equal to 190 mg/dL HDL Cholesterol 33(L) >40 mg/dL [facility] Comment:Desirable HDL: great er than 40 mg/dL Note: This HDL assay may give artificially low results in patients with liver disease. Blood Venous blood specimen / Unknown 06/08/2023 8:20 AM EST 06/08/2023 11:33 AM EST Yesica Ibarra MD LAB BLOOD ORDERAB LES Final Result [facility] [address] [place] [phone] from Last 3 Months or Most Recently Relevant to Health Maintenance Insurance C[employer] [facility] AD[place] Care Teams Inker Machine Relationship Specialty Start Date End Date Lesia Tran MD [address] [place], [place] [phone] PCP - General Internal Medicine 12/07/23
--- OUTSIDE RECORDS SUMMARY | 2024-05-29 10:28 | XMS_ITS | Encounter Summary ---
Author Organization [employer] Address [address] 7[address] [place] [address] Care Team Providers Care Finance Lecturer Name Role Phone Lesia Tran MD Primary Care Provider + Encounter Details Date Type Department Care Team (Latest Contact Info) Description 05/22/2024 Travel Social History Tobacco Use Types Packs/Day [...] Description 06/02/2024 10:00 AM EST Office Visit [facility] [address] [place] [phone] Trenton Wilkerson DDS [address] [place] [address] 06/15/2024 11:30 AM EDT Office Visit [facility] [address] [place] [address] Lesia Tran MD [address] [place] [phone] documented as of this encounter Visit Diagnoses Not on filedocumented in this encounter Additional Health Concerns Assessment Noted Time PHQ-9 Depression Total Score: 21 024 2:23 PM EST documented as of this encounter Care Teams Finance Lecturer Relationship Specialty Start Date End Date Lesia Tran MD [address] [place] [id number] PCP - General Internal Medicine 12/07/23 documented as of this encounter
--- OUTSIDE RECORDS SUMMARY | 2024-05-29 10:28 | XMS_ITS | Encounter Summary ---
Author Organization [email or web address] Address [address] [facility] 7t [place] [address] Care Team Providers Care Family Consumer Science Fcs Teacher Name Role Phone Lesia Tran MD Primary Care Provider + Reason for Visit * Reason Onset Date Comments Results 05/19/2024 Encounter Details Date Type Department Care Team ([facility] st Contact Info) Description 05/19/2024 Telephone [facility] [address] [place] [address] Lesia Tran MD [address] [place] [address] Results Social History Tobacco Use Types Packs/Day [...] encounter Miscellaneous Notes * Telephone Encounter - Renata Méndez RN - 05/19/2024 1:42 PM EST TC placed to patient [phone], patient advised BW was ordered by [facility] pulmonology (Dr. Davis). Patient advised to call [facility] pulmonology office to obtain results. During call patient also requested BW to have thyroid tested as patient feels thyroid is big , reports increased coughing and like something is stuck there all day . RN advised patient to address these concerns at upcoming appointment with PCP on 06/15/24. Patient verbalized understanding and did not have any further questions. * Telephone Encounter - Edilma Sterling - 05/19/2024 1:36 PM EST TC from pt requesting call back regarding Results. Type of results: Lab Date when done: 05/15/24 Facility: [facility] Contact pt at [phone] documented in this encounter Plan of Treatment Upcoming Encounters Date Type Department Care Team ([facility] st Contact Info) Description 06/02/2024 10:00 AM EST Office Visit [facility] [address] [place], [place] [phone] Trenton Wilkerson DDS [address] [place] [address] 06/15/2024 11:30 AM EDT Office Visit [facility] [address] [place], [place] [phone] Lesia Tran MD [address] [place] [address] documented as of this encounter Visit Diagnoses Not on filedocumented in this encounter Additional Health Concerns Assessment Noted Time PHQ-9 Depression Total Score: 21 024 2:23 PM EST documented as of this encounter Care Teams Family Consumer Science Fcs Teacher Relationship Specialty Start Date End Date Lesia Tran MD [address] [place] [phone] PCP - General Internal Medicine 12/07/23 documented as of this encounter
--- OUTSIDE RECORDS SUMMARY | 2024-05-29 10:30 | XMS_ITS | Encounter Summary ---
Author Organization [employer] Address [address] [facility] 7t [place] [address] Care Team Providers Care Locksmith Name Role Phone Lesia Tran MD Primary Care Provider + Reason for Visit * Reason Onset Date Comments medication 02/02/2024 Encounter Details Date Type Department Care Team (Late st Contact Info) Description 02/02/2024 Telephone [facility] [address] [place] [address] Trenton Wilkerson, BJS [address] [place] [address] medication Social History Tobacco Use Types Packs/Day [...] Description 06/02/2024 10:00 AM EST Office Visit [facility] [address] [place] [address] Trenton Wilkerson, SHELLI [address] [place] [address] 06/15/2024 11:30 AM EDT Office Visit [facility] [address] [place] [address] Lesia Tran MD [address] [place] [address] documented as of this encounter Visit Diagnoses Not on filedocumented in this encounter Additional Health Concerns Assessment Noted Time PHQ-9 Depression Total Score: 21 024 2:23 PM EST documented as of this encounter Care Teams Locksmith Relationship Specialty Start Date End Date Lesia Tran MD [address] [place] [id number] PCP - General Internal Medicine 12/07/23 documented as of this encounter
== END 2024-05-29 10:22 | disposition home or self-care (01) ==
PROVIDERS: PCP Nurse Practitioner Family; Visit Provider Nurse Practitioner Family
DX: J45.909 Unspecified asthma, uncomplicated (principal); R06.09 Other forms of dyspnea; Z87.01 Personal history of pneumonia (recurrent); G47.34 Idiopathic sleep related nonobstructive alveolar hypoventilation
CPT/HCPCS: 99214

== ENCOUNTER → 2024-05-29 09:38 | Outpatient (BNVA) | payer MEDICAID, SELFPAY | PROVIDERS: PCP Nurse Practitioner Family; Visit Provider Nurse Practitioner Family | DX: J45.909 Unspecified asthma, uncomplicated (principal); J34.2 Deviated nasal septum; R06.09 Other forms of dyspnea; G47.34 Idiopathic sleep related nonobstructive alveolar hypoventilation; F19.10 Other psychoactive substance abuse, uncomplicated; Z87.01 Personal history of pneumonia (recurrent); Z79.899 Other long term (current) drug therapy | CPT/HCPCS: 99212 ==

== ENCOUNTER 2024-05-30 15:47 | Emergency (ER) | payer MEDICAID, SELFPAY ==
--- NOTE | ~2024-05-30 | XR_ITS ---
EXAMINATION: XR CHEST CLINICAL INFORMATION: cough, fever COMPARISON: 03/11/2024. TECHNIQUE: 2 views of the chest were obtained. FINDINGS: The cardiac, hilar, and mediastinal contours are normal. Lungs demonstrate patchy airspace is opacities throughout the left lung, and involving the right medial base. There is no pneumothorax or pleural effusion. There is no focal osseous or soft tissue abnormality. XR/XR chest 2V IMPRESSION: Multifocal pneumonitis, most likely atypical pneumonia. No effusions. Electronically signed by: Compa Wilder MD 05/30/2024 04:59 PM [facility]
--- NOTE | ~2024-05-30 | CT_ITS ---
CLINICAL HISTORY: pain, pancreatitis CT abdomen and pelvis with contrast Comparison: None Findings: Patchy ground-glass opacities in both lung bases. Fatty infiltration of the pancreas. Subtle peripancreatic haziness and fat stranding. No pancreatic or biliary ductal dilatation. Normal liver, gallbladder, spleen, and adrenal glands. Unremarkable kidneys, ureters, and urinary bladder. No significant abnormality of the stomach, small bowel, or colon. Bones intact. IMPRESSION: Subtle peripancreatic fat stranding would be consistent with the provided diagnosis of pancreatitis. No associated fluid collection or complicating features. No evidence of pancreatic parenchymal necrosis. This document has been electronically signed by: Oswaldo Malik MD on 05/30/2024 23:27:47
[2024-05-30 15:51] VITALS: BP 129/79; PULSE 107; O2SAT 96
[2024-05-30 16:32] VITALS: BP 137/91; PULSE 109; RESP 18; TEMP 37.7; O2SAT 94; BMI 44.6
--- NOTE | 2024-05-30 16:34 | ED_ITS ---
HPI - General Adult General Chief complaint: Nausea/Vomiting/Diarrhea Stated complaint: back pain, abdominal pain for years, vomiting Time Seen by Provider: 05/30/24 22:28 Source: patient Limitations: other ( poOr historian) History of Present Illness HPI narrative: 38-year-old male with a history ofexocrine pancreatic insufficiency, opioid use disorder on methadone, asthma presents with multiple complaints. Patient states he has had a cough expelling brown sputum, with right-sided lung pain , for unclear duration. Patient also complains of abdominal pain that radiates to his back between his shoulders, that he has had for years. Associated nausea vomiting at home. Denies fever. Denies sick contacts with similar symptoms. Denies diarrhea. Related Data Home Medications ?Medication ?Instructions ?Recorded ?Confirmed albuterol sulfate 90 mcg/actuation 2 puff inhalation Q4H PRN wheezing 09/02/23 05/29/24 aerosol inhaler (Ventolin HFA) aspirin 81 mg tablet,delayed 81 mg PO DAILY 09/02/23 05/29/24 release bupropion HCl 150 mg 24 hr tablet, 150 mg PO DAILY 09/02/23 05/29/24 extended release mirtazapine 15 mg tablet 15 mg PO BEDTIME 09/02/23 05/29/24 quetiapine 50 mg tablet 50 mg PO BID 09/02/23 05/29/24 acetaminophen 650 mg 650 mg PO Q8H PRN moderate pain 03/11/24 05/29/24 tablet,extended release methadone 10 mg/mL oral 125 mg PO DAILY 03/11/24 05/29/24 concentrate (Methadone Intensol) polyethylene glycol 3350 17 17 g PO DAILY PRN Constipation 03/11/24 05/29/24 gram/dose oral powder (Miralax) Previous Rx's ?Medication ?Instructions ?Recorded esomeprazole magnesium 40 mg 40 mg PO DAILY #30 caps 01/14/24 capsule,delayed release (Nexium) famotidine 40 mg tablet 40 mg PO BEDTIME 90 days #90 tabs 01/14/24 uoudqw-rgdjevik-eauhebt 2 cap PO TID #90 caps 04/06/24 36,000-114,000-180,000 unit capsule,delay rel (Creon) magnesium oxide 400 mg PO BEDTIME #30 caps 04/14/24 sennosides 8.6 mg tablet (Natural 17.2 mg (2 x 8.6 mg) PO BEDTIME 05/02/24 Senna Laxative) constipation #180 tabs fluticasone furoate 200 1 inh inhalation DAILY #60 ea 05/10/24 mcg-vilanterol 25 mcg/dose inhalation powder (Breo Ellipta) cefuroxime axetil 500 mg tablet 500 mg PO BID #13 tabs 05/31/24 doxycycline hyclate 100 mg capsule 100 mg PO BID #13 caps 05/31/24 ondansetron HCl 4 mg tablet 4 mg PO Q8H PRN nausea and 05/31/24 vomiting #10 tabs Allergies Allergy/AdvReac Type Severity Reaction Status Date / Time Penicillins [PENICILLINS] Allergy Unknown RASH Verified 05/30/24 16:36 Review of Systems 2 Review of Systems: Yes all other systems are reviewed and are negative Constitutional: Constitutional: Denies fatigue and Denies fever(s) Cardiovascular: Cardiovascular: Denies chest pain and Denies dyspnea Respiratory: Respiratory: Reports chest congestion, Reports cough, Denies dyspnea and Denies wheezing Gastrointestinal: Gastrointestinal: Reports abdominal pain, Denies diarrhea, Reports nausea and Reports vomiting Endocrine: Endocrine: Denies fatigue Allergic/Immunologic: Allergic/Immunologic: Denies wheezing PMFSH Past Medical History Attestation statement: The following information was validated with the patient. Medical History (Updated 05/31/24 @ 01:56 by TERRIE Chavarria) Exocrine pancreatic insufficiency Polysubstance abuse No known health problems Social History Social History Household Members: Family Housing: Condominium Do you presently have visiting nurse or other home services: No Alcohol intake: former Patient Tobacco Use Status: Former Tobacco user Smoked in Last 30 Days: No Use of substances other than those prescribed or required for medical reasons: No Substance Use Type: Marijuana Advance Directives: No Advance Directives Information Provided: No Do you have a plan to hurt others: No Plan service: No Physical Exam ED Vital Signs: Vital Signs - 24 hr 05/30/24 16:32 05/30/24 20:18 05/30/24 21:31 Temperature 100 F 99.9 F 99.2 F Pulse Rate 109 H 101 H 95 Respiratory Rate 18 18 16 Blood Pressure 137/91 H 125/86 133/79 Pulse Oximetry 94 96 96 Oxygen Delivery Method Room Air Room Air Room Air 05/31/24 00:03 Temperature Pulse Rate 72 Respiratory Rate 14 Blood Pressure 130/92 H Pulse Oximetry 96 Oxygen Delivery Method Room Air BMI result Body Mass Index 44.6 Const Other: alert, appears older than stated age Orientation/consciousness: patient oriented x3 Resp Effort & Inspection: normal respiratory effort Cardio Other: normal peripheral perfusion GI Other: abdomen is soft, nondistended, generalized tenderness to palpation, most prominent over right abdomen, no guarding Skin Other: warm dry no rash Neuro General: patient oriented x3, no focal motor deficits and CN's II-XI intact bilaterally Psych Other: cooperative Course Course Course Narrative: This is a rapid medical exam performed by Arabella Bruce NP: Additional HPI, ROS, PE not included below will be deferred to primary provider. Patient is a 38-year-old male with pmhx exocrine pancreatic insufficiency, opioid use disorder on methadone, asthma presenting with complaint of upper abdominal pain, nausea and vomiting, cough, upper back pain. Plan: labs, viral serology, CXR Medications Administered Discontinued Medications Generic Name Dose Route Start Last Admin Trade Name Freq PRN Reason Stop Dose Admin Acetaminophen 975 mg 05/30/24 21:19 05/30/24 21:36 Acetaminophen 325 Mg Tablet PO 05/30/24 21:20 975 mg ONCE ONE Administration Cefuroxime Axetil 500 mg 05/31/24 00:27 05/31/24 01:39 Cefuroxime Axetil 500 Mg Tablet PO 05/31/24 00:28 500 mg ONCE ONE Administration Doxycycline Monohydrate 100 mg 05/31/24 00:33 05/31/24 01:39 Doxycycline Monohydrate 100 Mg Capsule PO 05/31/24 00:34 100 mg ONCE ONE Administration Sodium Chloride 1,000 mls @ 999 mls/hr 05/30/24 21:30 05/30/24 22:37 Ns IV 05/30/24 22:30 Infused .Q1H1M SHEELA Infusion Sodium Chloride 1,000 mls @ 999 mls/hr 05/30/24 22:45 05/30/24 22:41 Ns IV 05/30/24 23:45 999 mls/hr .Q1H1M SHEELA Administration Iohexol 100 ml 05/30/24 22:54 05/30/24 22:54 Iohexol 350 Mg/Ml 100 Ml Infus..Btl IV 05/30/24 22:55 100 ml ONCE ONE Administration Ketorolac Tromethamine 15 mg 05/30/24 22:33 05/30/24 22:41 Ketorolac Tromethamine 15 Mg/Ml Vial IVPUSH 05/30/24 22:34 15 mg ONCE ONE Administration Lorazepam 2 mg 05/30/24 22:33 05/30/24 22:41 Lorazepam 2 Mg/Ml Vial IVPUSH 05/30/24 22:34 2 mg ONCE ONE Administration Medical Decision Making Medical Decision Making MDM Narrative: 38-year-old male with a history of exocrine pancreatic insufficiency, opioid use disorder on methadone, asthma presents with multiple complaints. Patient states he has had a cough expelling brown sputum, with right-sided lung pain , for unclear duration. Patient also complains of abdominal pain that radiates to his back between his shoulders, that he has had for years. Associated nausea vomiting at home. Denies fever. Denies sick contacts with similar symptoms. Denies diarrhea. problem: Pancreatic insufficiency, substance abuse on methadone, asthma History: Per patient I have considered the following differential diagnoses: Viral gastritis, viral syndrome, pneumonia, bronchitis, asthma exacerbation, pancreatitis, biliary colic, cholecystitis Plan: screening labs including LFTs and lipase were obtained. They are unremarkable. Viral panel was negative as well. He does have evidence of pneumonia on chest x-ray. In regard to his abdominal discomfort it is more prominent on the right side versus the left and it does radiate to the back, perhaps this is underlying biliary pathology, biliary colic given no elevation of LFTs. We will obtain a CT scan. I feel like this would be the better imaging modality secondary to his habitus. We will be giving Ativan, IV fluid and Toradol. He is not going to have pancreatitis, his insufficiency would not cause this condition. I have independently reviewed the following tests: Labs: Leukocytosis with left shift, not anemic, no electrolyte abnormality, LFTs and lipase are normal, viral panel is negative Chest x-ray: XR/XR chest 2V IMPRESSION: Multifocal pneumonitis, most likely atypical pneumonia. No effusions. CT abdomen and pelvis:IMPRESSION: Subtle peripancreatic fat stranding would be consistent with the provided diagnosis of pancreatitis. No associated fluid collection or complicating features. No evidence of pancreatic parenchymal necrosis. This document has been electronically signed by: Oswaldo Malik MD on 05/30/2024 23:27:47 I have independently reviewed the following tests: Labs: Leukocytosis with left shift, not anemic, no electrolyte abnormality, lipase 13, viral panel negative CXR: XR/XR chest 2V IMPRESSION: Multifocal pneumonitis, most likely atypical pneumonia. No effusions. Electronically signed by: Compa Wilder MD 05/30/2024 04:59 PM [facility] CT abdomen and pelvis:Findings: Patchy ground-glass opacities in both lung bases. Fatty infiltration of the pancreas. Subtle peripancreatic haziness and fat stranding. No pancreatic or biliary ductal dilatation. Normal liver, gallbladder, spleen, and adrenal glands. Unremarkable kidneys, ureters, and urinary bladder. No significant abnormality of the stomach, small bowel, or colon. Bones intact. IMPRESSION: Subtle peripancreatic fat stranding would be consistent with the provided diagnosis of pancreatitis. No associated fluid collection or complicating features. No evidence of pancreatic parenchymal necrosis. This document has been electronically signed by: Oswaldo Malik MD on 05/30/2024 23:27:47 Lab Data 05/30/24 17:00 05/30/24 17:00 Labs: Lab Results 05/30/24 Range/Units 17:00 WBC 16.3 H (4.8-10.8) X10*3/uL RBC 5.01 (4.60-5.80) X10*6/uL Hgb 12.4 L (14.0-18.0) g/dl Hct 39.0 L (42.0-52.0) % MCV 77.8 L (80.0-98.0) fL MCH 24.8 L (27.0-33.0) pg MCHC 31.8 (31.0-36.0) g/dl RDW 14.3 (11.0-16.0) % Plt Count 291 (160-400) X10*3/uL MPV 8.8 L (9.4-12.4) fL Immature Gran % (Auto) 0.6 H (0.0-0.4) % Neut % (Auto) 88.4 H (45-73) % Lymph % (Auto) 4.2 L (20-40) % [place] % (Auto) 6.3 (2-11) % Eos % (Auto) 0.2 (0-4) % Baso % (Auto) 0.3 (0-2) % Lymph # (Auto) 0.7 L (1.2-4.9) X10*3/uL [place] # (Auto) 1.0 (0.1-1.2) X10*3/uL Eos # (Auto) 0.0 (0.0-0.4) X10*3/uL Baso # (Auto) 0.1 (0.0-0.2) X10*3/uL Abs Immat Gran (auto) 0.10 H (0.00-0.03) X10*3/uL Absolute Neuts (auto) 14.4 H (2.0-8.3) x10*3/uL Absolute Nucleated RBC 0.000 (0.0-0.012) X10*3/uL Nucleated RBC % (auto) 0.0 (0.0-0.2) /100WBC Sodium 135 (135-145) mmol/L Potassium 4.2 (3.3-5.1) mmol/L Chloride 103 (96-108) mmol/L Carbon Dioxide 24 (22-29) mmol/L Anion Gap 12 (12-20) BUN 13 (9-16) mg/dL Creatinine 0.85 (0.5-1.4) mg/dL Estim Creat Clear Calc 155.2 Estimated GFR > 60 Random Glucose 127 H (60-115) mg/dL Calcium 9.1 (8.4-10.2) mg/dL Magnesium 1.6 (1.6-2.6) mg/dL Total Bilirubin 0.6 (0.0-1.0) mg/dL AST 23 (5-37) U/L ALT 22 (0-40) U/L Alkaline Phosphatase 111 (39-117) U/L Total Protein 8.1 H (6.5-8.0) g/dL Albumin 3.9 (3.5-5.0) g/dL Lipase 13 (8-78) U/L Influenza Type A (PCR) NEGATIVE (Negative) Influenza Type B (PCR) NEGATIVE (Negative) RSV RNA Qual (PCR) NEGATIVE (Negative) SARS-CoV-2 RNA (RT-PCR) NEGATIVE (Negative) S. pyogenes GrpA MARIZOL Negative (Negative) Discharge Plan Discharge Clinical Impression: Pneumonia Patient Disposition: Home, Self-Care Instructions: Community Acquired Pneumonia (ED) Additional Instructions: you were found to have pneumonia on chest x-ray, the CT of your abdomen was normal. See home care instructions. Take the doxycycline as directed, take the cefuroxime as directed. Uses Zofran as needed for nausea. Follow up with your primary care provider next week. Prescriptions: New doxycycline hyclate 100 mg capsule 100 mg PO BID Qty: 13 0RF cefuroxime axetil 500 mg tablet 500 mg PO BID Qty: 13 0RF ondansetron HCl 4 mg tablet 4 mg PO Q8H PRN (Reason: nausea and vomiting) Qty: 10 0RF No Action Creon 36,000-114,000- 180,000 unit capsule,delayed release(DR/EC) 2 cap PO TID Qty: 90 2RF Rx Instructions: administer with meals and/or snacks sennosides [Natural Senna Laxative] 8.6 mg tablet 17.2 mg PO BEDTIME Qty: 180 1RF fluticasone furoate-vilanterol [Breo Ellipta] 200-25 mcg/dose blister with device 1 inh inhalation DAILY Qty: 60 2RF acetaminophen 650 mg tablet extended release 650 mg PO Q8H PRN (Reason: moderate pain) polyethylene glycol 3350 [Miralax] 17 gram/dose powder 17 g PO DAILY PRN (Reason: Constipation) methadone [Methadone Intensol] 10 mg/mL Concentrate 125 mg PO DAILY quetiapine 50 mg tablet 50 mg PO BID aspirin 81 mg tablet,delayed release (DR/EC) 81 mg PO DAILY albuterol sulfate [Ventolin HFA] 90 mcg/actuation HFA aerosol inhaler 2 puff inhalation Q4H PRN (Reason: wheezing) bupropion HCl 150 mg tablet extended release 24 hr 150 mg PO DAILY mirtazapine 15 mg tablet 15 mg PO BEDTIME esomeprazole magnesium [Nexium] 40 mg capsule,delayed release(DR/EC) 40 mg PO DAILY Qty: 30 5RF famotidine 40 mg tablet 40 mg PO BEDTIME 90 Days Qty: 90 3RF magnesium oxide 400 mg magnesium capsule 400 mg PO BEDTIME Qty: 30 2RF Print Language: Amharic
[2024-05-30 17:05] LABS: MANUAL DIFF FLAG NO
[2024-05-30 17:06] LABS: Basophils Absolute Auto 0.1 X10*3/uL (0.0-0.2); Basophils Percent Auto 0.3 % (0-2); Eosinophils Percent Auto 0.2 % (0-4); Hemoglobin 12.4 g/dl (14.0-18.0); Imm Gran Pct Auto 0.6 % (0.0-0.4); Lymphocytes Absolute Auto 0.7 X10*3/uL (1.2-4.9); Lymphocytes Percent Auto 4.2 % (20-40); Mean Corpuscular HGB Conc 31.8 g/dl (31.0-36.0); Mean Corpuscular Hemoglobin 24.8 pg (27.0-33.0); Mean Corpuscular Volume 77.8 fL (80.0-98.0); Mean Platelet Volume 8.8 fL (9.4-12.4); Monocytes Percent Auto 6.3 % (2-11); Neutrophils Absolute Auto 14.4 x10*3/uL (2.0-8.3); Neutrophils Percent Auto 88.4 % (45-73); Platelet Count 291 X10*3/uL (160-400); Red Blood Count 5.01 X10*6/uL (4.60-5.80); Red Cell Distribution Width 14.3 % (11.0-16.0); White Blood Count 16.3 X10*3/uL (4.8-10.8)
[2024-05-30 17:15] LABS: IDNOW Serial# 08D9AD1C; Strep A Nucleic Acid Negative (Negative)
[2024-05-30 17:21] LABS: Alanine Aminotransferase 22 U/L (0-40); Albumin Level 3.9 g/dL (3.5-5.0); Alkaline Phosphatase 111 U/L (39-117); Anion Gap 12 (12-20); Aspartate Amino Transferase 23 U/L (5-37); Bilirubin Total 0.6 mg/dL (0.0-1.0); Blood Urea Nitrogen 13 mg/dL (9-16); Calcium 9.1 mg/dL (8.4-10.2); Carbon Dioxide 24 mmol/L (22-29); Chloride 103 mmol/L (96-108); Creatinine Clr Calc Pharmacy 155.2; Estimated Glomerular Filt Rate > 60; Glucose Random 127 mg/dL (60-115); Lipase 13 U/L (8-78); Magnesium 1.6 mg/dL (1.6-2.6); Potassium 4.2 mmol/L (3.3-5.1); Sodium 135 mmol/L (135-145); Total Protein 8.1 g/dL (6.5-8.0)
[2024-05-30 17:46] LABS: Influenza A PCR NEGATIVE (Negative); Influenza B PCR NEGATIVE (Negative); Resp Syncy Virus RNA Qual PCR NEGATIVE (Negative); SARS COV2 PCR INHOUSE NEGATIVE (Negative)
[2024-05-30 20:18] VITALS: BP 125/86; PULSE 101; RESP 18; TEMP 37.7; O2SAT 96
[2024-05-30 21:31] VITALS: BP 133/79; PULSE 95; RESP 16; TEMP 37.3; O2SAT 96
[2024-05-30] MEDS: Acetaminophen 325 MG TABLET 975 MG PO (21:36)
[2024-05-30] MEDS: 0.9 % Sodium Chloride 1,000 ML 999 ML IV ×2 (21:36→22:41)
--- NOTE | 2024-05-30 21:40 | PC.NURSE ---
a&ox4. vss and up to date aside from being slightly sinus tachycardic. pt denies any chest pain/palpitations. low grade fever. denies medication prior to arrival. pt presents to the ED c/o generalized upper quadrant pain that radiates to scapula. pt reports he has had this intermittent pain for years but states that sx worsened this morning. pt also reports n/v/blood tinged sputum/subjective fevers/chills. pt reports recent PNA. labs obtained in triage. 20gIV placed in the right hand - IVF/tylenol administered/infusing at this time. pt on RA w/o difficulty. no sob/wob noted. respirations even/unlabored. plan of care ongoing. call salgado placed within reach.
[2024-05-30] MEDS: LORazepam 2 MG/ML VIAL IVPUSH (22:41)
[2024-05-30] MEDS: Ketorolac Tromethamine 15 MG/ML VIAL IVPUSH (22:41)
--- NOTE | 2024-05-30 22:46 | PC.NURSE ---
IVF/medication administered per provider order. pt to CT at this time. plan of care ongoing.
[2024-05-30] MEDS: iohexoL 350 MG/ML 100 ML INFUS..BTL IV (22:54)
--- NOTE | 2024-05-30 23:06 | PC.NURSE ---
pt back from ct at this time, IV fluids hung and administering at this time.
[2024-05-31 00:03] VITALS: BP 130/92; PULSE 72; RESP 14; O2SAT 96
[2024-05-31] MEDS: Doxycycline Monohydrate 100 MG CAPSULE PO (01:39)
[2024-05-31] MEDS: cefuroxime axetiL 500 MG TABLET PO (01:39)
[2024-05-31 02:00] VITALS: BP 130/92; PULSE 72; RESP 14; TEMP 36.9; O2SAT 96
== END 2024-05-31 02:20 | disposition home or self-care (01) ==
PROVIDERS: Registered Nurse Emergency; Emergency Provider Emergency Medicine Emergency Medical Services; PCP Nurse Practitioner Family
DX: J18.9 Pneumonia, unspecified organism (principal); R11.2 Nausea with vomiting, unspecified; M54.50 Low back pain, unspecified; R05.9 Cough, unspecified; R10.2 Pelvic and perineal pain; Z87.891 Personal history of nicotine dependence; Z03.818 Encounter for observation for suspected exposure to other biological agents ruled out; Z79.899 Other long term (current) drug therapy
CPT/HCPCS: 0241U; 71046; 74177; 80053; 83690; 83735; 85025; 87651; 96361; 96374; 96375; 99285; J1885; J2060; Q9967

== ENCOUNTER → 2024-05-30 16:36 | Outpatient (BNV) | payer MEDICAID, SELFPAY | PROVIDERS: Visit Provider Radiology Diagnostic Radiology | DX: K85.90 Acute pancreatitis without necrosis or infection, unspecified (principal) | CPT/HCPCS: 71046; 74177 ==

== ENCOUNTER 2024-06-02 09:27 | Outpatient (REF) | payer MEDICAID, SELFPAY ==
--- OUTSIDE RECORDS SUMMARY | 2024-06-02 10:10 | XMS_ITS | Encounter Summary ---
Author Organization [employer] Address [address] [place] [address] Care Team Providers Care Telemarketing Manager Name Role Phone Lesia Tran MD [...] Care Team (Late st Contact Info) Description 06/15/2024 11:30 AM EDT Office Visit [facility] [address] [place] [address] Lesia Tran MD [address] [place] [address] 07/03/2024 10:00 AM EDT Office Visit [facility] [address] [place] [address] Trenton Wilkerson DDS [address] [place] [address] documented as of this encounter Visit Diagnoses Not on filedocumented in this encounter Additional Health Concerns Assessment Noted Time PHQ-9 Depression Total Score: 21 024 2:23 PM EST documented as of this encounter Care Teams Telemarketing Manager Relationship Specialty Start Date End Date Lesia Tran MD [address] [place] [phone] PCP - General Internal Medicine 12/07/23 documented as of this encounter
--- OUTSIDE RECORDS SUMMARY | 2024-06-02 10:10 | XMS_ITS | Encounter Summary ---
Author Organization [employer] Address [address] [facility] [address]t [place] [address] Care Team Providers Care Accounting Practice Manager Name Role Phone Lesia Tran MD Primary Care Provider + Reason for Visit * Reason Onset Date Comments Results 05/24/2024 Encounter Details Date Type Department Care Team ([facility] st Contact Info) Description 05/24/2024 Telephone [facility] [address] [place] [address] Lesia Tran MD [address] [place] [address] Results Social History Tobacco Use Types Packs/Day [...] chest on 05/12/2024 ordered by Samantha Davis SCIENCE ANALYST, reviewed. Please call pulmonologyoffice where she works and make sure that they had the results will schedule follow-up for patient if needed. documented in this encounter Plan of Treatment Upcoming Encounters Date Type Department Care Team (Late st Contact Info) Description 06/15/2024 11:30 AM EDT Office Visit [facility] [address] [place] [address] Lesia Tran MD [address] [place], [place] [phone] 07/03/2024 10:00 AM EDT Office Visit [facility] [address] [place], [place] [phone] Trenton Wilkerson DDS [address] [place], [place] [phone] documented as of this encounter Visit Diagnoses Not on filedocumented in this encounter Additional Health Concerns Assessment Noted Time PHQ-9 Depression Total Score: 21 024 2:23 PM EST documented as of this encounter Care Teams Accounting Practice Manager Relationship Specialty Start Date End Date Lesia Tran MD [address] [place], [place] [phone] PCP - General Internal Medicine 12/07/23 documented as of this encounter
--- OUTSIDE RECORDS SUMMARY | 2024-06-02 10:10 | XMS_ITS | Encounter Summary ---
Author Organization [employer] Address [address] [facility] 7t [place] [address] Care Team Providers Care Camper Assembler Name Role Phone Neetu Bah Primary Care Provider Roma Bender Primary Care Provider [phone] Neetu Bah Unavailable [phone] Lesia Tran MD Primary Care Provider + Encounter Details Date Type Department Care Team (Late st Contact Info) Description 09/28/2022 Abstract [facility] ADULT DENTAL [address] [place] [address] Trenton Wilkerson DDS [address] [place] [address] Social History Tobacco Use Types Packs/Day Years [...] Description 06/15/2024 11:30 AM EDT Office Visit [facility] MEDICINE [address] [place] [address] Lesia Tran MD 230 [place] [address] 07/03/2024 10:00 AM EDT Office Visit [facility] ADULT DENTAL [address] [place] [address] Trenton Wilkerson DDS [address] [place] [address] documented as of this encounter Visit Diagnoses Not on filedocumented in this encounter Care Teams Camper Assembler Relationship Specialty Start Date End Date Neetu Bah AGNP [address] [place] [address] PCP - General Family Medicine 11/28/20 01/13/23 Roma Bender FNP [address] [place] [address] PCP - General Family Medicine 01/14/23 12/06/23 Lesia Tran MD [address] [place] [address] PCP - General Internal Medicine 12/07/23 Neetu Bah AGNP [address] [place] [address] Family Medicine 01/14/23 09/02/23 documented as of this encounter
--- OUTSIDE RECORDS SUMMARY | 2024-06-02 10:10 | XMS_ITS | Encounter Summary ---
Author Organization [employer] Address 75 [facility] 7t [place] [address] Care Team Providers Care Corn Sheller Operator Name Role Phone Lesia Tran MD Primary Care Provider + Reason for Visit * Reason Onset Date Comments Results 05/19/2024 Encounter Details Date Type Department Care Team ([facility] st Contact Info) Description 05/19/2024 Telephone [facility] MEDICINE [address] [place] [address] Lesia Tran MD [address] [place] [address] Results Social History Tobacco Use Types Packs/Day [...] 1:42 PM EST TC placed to patient [phone], patient advised BW was ordered by [facility] pulmonology (Dr. Davis). Patient advised to call [facility] pulmonology office to obtain results. During call [...] results: Lab Date when done: 05/15/24 Facility: [facility] Contact pt at [phone] documented in this encounter Plan of Treatment Upcoming Encounters Date Type Department Care Team ([facility] st Contact Info) Description 06/15/2024 11:30 AM EDT Office Visit [facility] MEDICINE [address] [place] [address] Lesia Tran MD [address] [place] [address] 07/03/2024 10:00 AM EDT Office Visit [facility] ADULT DENTAL [address] [place], [place] [phone] Trenton Wilkerson DDS [address] [place] [address] documented as of this encounter Visit Diagnoses Not on filedocumented in this encounter Additional Health Concerns Assessment Noted Time PHQ-9 Depression Total Score: 21 024 2:23 PM EST documented as of this encounter Care Teams Corn Sheller Operator Relationship Specialty Start Date End Date Lesia Tran MD 230 [place] [address] PCP - General Internal Medicine 12/07/23 documented as of this encounter
--- OUTSIDE RECORDS SUMMARY | 2024-06-02 10:10 | XMS_ITS | Encounter Summary ---
Author Organization [employer] Address [address] [facility] [address] 7t [place] [address] Care Team Providers Care Ld Teacher Name Role Phone Lesia Tran MD Primary Care Provider + Reason for Visit * Reason Onset Date Comments Results: Chest CT 05/12/24 05/12/2024 Encounter Details Date Type Department Care Team (Late st Contact Info) Description 05/12/2024 Telephone [facility] [address] [place] [address] Bobbi Deal, ROXANN Results: Chest CT 05/12/24 [...] Ordered by Selene Davis NP Pulmonolgy @ [facility] CT Scan Report Signed Patient: Yaniv Gutierrez MR#: [id number] : 1985 Acct:[id number] Age/Sex: 38 / M ADM Date: 05/12/24 Loc: HO.CT Attending Dr: Samantha Davis PALLIATIVE CARE PHYSICIAN Ordering Physician: Samantha Davis NP Date of Service: 05/12/24 Procedure(s): CT chest wo IV con Accession Number(s): [id number] cc: Roma Bender NP; Samantha Davis NP~ [...] 02:48 PM EST RP Last pulmonolgy note [facility] [address] [place] [address] Patient: Yaniv Gutierrez MR#: [id number] : 1985 Acct:[id number] Age/Sex: 38 / M ADM/SER Date: 03/27/24 [...] the last visit, he was admitted [place] [facility]14 for aspiration pneumonia. He presented to [...] + opioids, fentanyl, methadone, marijuana and cocaine. SHIRT TRIMMER performed which revealed no aspiration however recommended [...] Description 06/15/2024 11:30 AM EDT Office Visit [facility] MEDICINE [address] [place] [address] Lesia Trna MD [address] [place] [address] 07/03/2024 10:00 AM EDT Office Visit [facility] ADULT DENTAL [address] [place] [address] Trenton Wilkerson DDS [address] [place] [address] documented as of this encounter Visit Diagnoses Not on filedocumented in this encounter Additional Health Concerns Assessment Noted Time PHQ-9 Depression Total Score: 21 024 2:23 PM EST documented as of this encounter Care Teams Ld Teacher Relationship Specialty Start Date End Date Lesia Tran MD [address] [place] [address] PCP - General Internal Medicine 12/07/23 documented as of this encounter
--- OUTSIDE RECORDS SUMMARY | 2024-06-02 10:10 | XMS_ITS | Encounter Summary ---
Author Organization [employer] Address [address] [facility] [address] 7t [place] [address] Care Team Providers Care Magician/Illusionist Name Role Phone Lesia Tran MD Primary Care Provider + Encounter Details Date Type Department Care Team (Latest Contact Info) Description 05/29/2024 Travel Social History Tobacco Use Types Packs/Day [...] Description 06/15/2024 11:30 AM EDT Office Visit [facility] MEDICINE [address] [place] [address] Lesia Tran MD 230 [place] [address] 07/03/2024 10:00 AM EDT Office Visit [facility] ADULT DENTAL [address] [place] [address] Trenton Wilkerson DDS [address] [place] [address] documented as of this encounter Visit Diagnoses Not on filedocumented in this encounter Additional Health Concerns Assessment Noted Time PHQ-9 Depression Total Score: 21 024 2:23 PM EST documented as of this encounter Care Teams Magician/Illusionist Relationship Specialty Start Date End Date Lesia Tran MD [address] [place] [address] PCP - General Internal Medicine 12/07/23 documented as of this encounter
--- OUTSIDE RECORDS SUMMARY | 2024-06-02 10:10 | XMS_ITS | Encounter Summary ---
Author Organization [employer] Address [address] [facility] 7t [place] [address] Care Team Providers Care Imaging Specialist Name Role Phone Roma Bender Primary Care Provider [phone] Neetu Bah [facility] Unavailable [phone] Lesia Tran MD Primary Care Provider + Reason for Visit * Reason Onset Date Comments Medication Question 05/04/2023 Encounter Details Date Type Department Care Team (Late st Contact Info) Description 05/04/2023 Telephone [facility] [address] [place] [address] Roma Bender FNP [address] [place] [address] Medication Question Social History Tobacco Use Types [...] 2 times daily. Any questions please contact [phone]. documented in this encounter Plan of Treatment Upcoming Encounters Date Type Department Care Team (Late st Contact Info) Description 06/15/2024 11:30 AM EDT [facility] [address] [place] [address] Lesia Tran MD 230 [place] [address] 07/03/2024 10:00 AM EDT Office [facility] [address] [place] [address] Trenton Wilkerson DDS [address] [place] [address] documented as of this encounter Visit Diagnoses Not on filedocumented in this encounter Additional Health Concerns Assessment Noted Time PHQ-9 Depression Total Score: 11 023 3:14 PM EDT documented as of this encounter Care Teams Imaging Specialist Relationship Specialty Start Date End Date Roma Bender FNP [address] [place] [address] PCP - General Family Medicine 01/14/23 12/06/23 Lesia Tran MD [address] [place] [address] PCP - General Internal Medicine 12/07/23 Neetu Bah AGNP [address] [place] [phone] Family Medicine 01/14/23 09/02/23 documented as of this encounter
--- OUTSIDE RECORDS SUMMARY | 2024-06-02 10:10 | XMS_ITS | Encounter Summary ---
Author Organization [employer] Address 75 [facility] 7t [place] [address] Care Team Providers Care Chain Carrier Name Role Phone Neetu Bah Primary Care Provider Roma Bender Primary Care Provider [phone] Neetu Bah Unavailable [phone] Lesia Tran MD Primary Care Provider + Encounter Details Date Type Department Care Team (Late st Contact Info) Description 09/29/2022 Abstract [facility] ADULT DENTAL [address] [place] [address] Trenton Wilkerson DDS [address] [place] [address] Social History Tobacco Use Types Packs/Day Years [...] Description 06/15/2024 11:30 AM EDT Office Visit [facility] MEDICINE [address] [place] [address] Lesia Tran MD 230 [place] [address] 07/03/2024 10:00 AM EDT Office Visit [facility] ADULT DENTAL [address] [place] [address] Trenton Wilkerson DDS [address] [place] [address] documented as of this encounter Visit Diagnoses Not on filedocumented in this encounter Care Teams Chain Carrier Relationship Specialty Start Date End Date Neetu Bah AGNP [address] [place] [address] PCP - General Family Medicine 11/28/20 01/13/23 Roma Bender FNP [address] [place] [address] PCP - General Family Medicine 01/14/23 12/06/23 Lesia Tran MD [address] [place] [address] PCP - General Internal Medicine 12/07/23 Neetu Bah AGNP [address] [place] [address] Family Medicine 01/14/23 09/02/23 documented as of this encounter
--- OUTSIDE RECORDS SUMMARY | 2024-06-02 10:10 | XMS_ITS | Encounter Summary ---
Author Organization [employer] Address [address] [place] [address] 7t [place] [address] Care Team Providers Care Latex Dipper Name Role Phone Neetu Bah Primary Care Provider Roma Bender Primary Care Provider [phone] Neetu Bah Unavailable [phone] Lesia Tran MD Primary Care Provider + Reason for Visit * Reason Onset Date Comments New Patient 11/18/2022 Encounter Details Date Type Department Care Team (Late st Contact Info) Description 11/18/2022 Telephone [facility] MEDICINE [address] [place] [address] Koby Holland MD [address] [place], [place] [phone] New Patient Social History Tobacco Use Types [...] been transfer over to wait list for RESPIRATORY TECH. EFFECTIVE SINCE 11/24/2022 * Telephone Encounter - Lisa Zarate Marianne - 11/18/2022 10:33 AM EDT Tc to Pt , informed that we do take insurance, but must call [employer] to change location. Once done, to please call back to facility at [phone] documented in this encounter Plan of Treatment Upcoming Encounters Date Type Department Care Team (Late st Contact Info) Description 06/15/2024 11:30 AM EDT Office Visit [facility] MEDICINE [address] [place] [address] Lesia Tran MD [address] [place] [address] 07/03/2024 10:00 AM EDT Office Visit [facility] ADULT DENTAL [address] [place] [address] Trenton Wilkerson DDS [address] [place] [address] documented as of this encounter Visit Diagnoses Not on filedocumented in this encounter Care Teams Latex Dipper Relationship Specialty Start Date End Date Neetu Bah AGNP [address] [place] [phone] PCP - General Family Medicine 11/28/20 01/13/23 Roma Bender FNP [address] [place] [address] PCP - General Family Medicine 01/14/23 12/06/23 Lesia Tran MD [address] [place] [address] PCP - General Internal Medicine 12/07/23 Neetu Bah AGNP [address] [place] [phone] Family Medicine 01/14/23 09/02/23 documented as of this encounter
--- OUTSIDE RECORDS SUMMARY | 2024-06-02 10:10 | XMS_ITS | Encounter Summary ---
Author Organization [employer] Address [address] [facility] 7t [place] [address] Care Team Providers Care Biostatistics Director Name Role Phone Neetu Bah Primary Care Provider Roma Bender Primary Care Provider [phone] Neetu Bah Unavailable [phone] Lesia Tran MD Primary Care Provider + Encounter Details Date Type Department Care Team (Late st Contact Info) Description 09/29/2022 Abstract [facility] ADULT DENTAL [address] [place] [address] Trenton Wilkerson DDS [address] [place] [address] Social History Tobacco Use Types Packs/Day Years [...] Description 06/15/2024 11:30 AM EDT Office Visit [facility] MEDICINE [address] [place] [address] Lesia Tran MD [address] [place] [address] 07/03/2024 10:00 AM EDT Office Visit [facility] ADULT DENTAL [address] [place] [address] Trenton Wilkerson DDS [address] [place] [address] documented as of this encounter Visit Diagnoses Not on filedocumented in this encounter Care Teams Biostatistics Director Relationship Specialty Start Date End Date Neetu Bah AGNP [address] [place] [address] PCP - General Family Medicine 11/28/20 01/13/23 Roma Bender FNP [address] [place] [address] PCP - General Family Medicine 01/14/23 12/06/23 Lesia Tran MD [address] [place] [address] PCP - General Internal Medicine 12/07/23 Neetu Bah AGNP [address] [place] [address] Family Medicine 01/14/23 09/02/23 documented as of this encounter
--- OUTSIDE RECORDS SUMMARY | 2024-06-02 10:10 | XMS_ITS | Encounter Summary ---
Author Organization [employer] Address [address] [place] [address] 7t [place] [address] Care Team Providers Care Christmas Tree Contractor Name Role Phone Lesia Tran MD Primary Care Provider + Reason for Visit * Reason Comments Dentures Encounter Details Date Type Department Care Team (Late st Contact Info) Description 05/03/2024 10:00 AM EST Office Visit [facility] ADULT DENTAL [address] [place] [address] Trenton Wilkerson, DDS [address] [place] [address] Complete edentulism, unspecified edentulism class (Primary Dx) [...] (full denture impression), Timeout Time: 0955 Location: [facility] Tooth: Maxilla and Mandible Procedure: Dentures Verified the above with patient, asset protection assistant, and provider. Confirmed via patient's chart, intraorally and by radiographs. Marine Pilot: not applicable Chief Complaint Patient presents with [...] and in stable condition. NV: Bite reg Manager Infusion: Bola Bajwa Dentist: Trenton Wilkerson DDS documented in this encounter Plan of Treatment Upcoming Encounters Date Type Department Care Team (Late st Contact Info) Description 06/15/2024 11:30 AM EDT Office Visit [facility] MEDICINE [address] [place], [place] [phone] Lesia Tran MD [address] [place] [address] 07/03/2024 10:00 AM EDT Office Visit [facility] ADULT DENTAL [address] [place] [address] Trenton Wilkerson DDS [address] [place] [address] Scheduled Orders Name Type Priority Associated Diagnoses [...] documented as of this encounter Care Teams Christmas Tree Contractor Relationship Specialty Start Date End Date Lesia Tran MD [address] [place] [address] PCP - General Internal Medicine 12/07/23 documented as of this encounter
--- OUTSIDE RECORDS SUMMARY | 2024-06-02 10:10 | XMS_ITS | Encounter Summary ---
Author Organization [employer] Address [address] [facility] 7t [place] [address] Care Team Providers Care Power Generating Plant Operator Name Role Phone Lesia Tran MD Primary Care Provider + Reason for Visit * Reason Onset Date Comments Med Refill 05/15/2024 Encounter Details Date Type Department Care Team (Late st Contact Info) Description 05/15/2024 Telephone [facility] MEDICINE [address] [place] [address] Lesia Tran MD [address] [place] [address] Med Refill Social History Tobacco Use Types [...] 9:47 AM EST Medication was sent to [id number] on 05/01/24 with 1 refill. * Telephone Encounter - Kenisha Mtz - 05/15/2024 9:43 AM EST TC from pt requesting medication refill. Medications needing refill : hydrOXYzine pamoate (Vistaril) 25 MG capsule To be sent to: [facility]/pharmacy #[id number] - [address] documented in this encounter Plan of Treatment Upcoming Encounters Date Type Department Care Team (Late st Contact Info) Description 06/15/2024 11:30 AM EDT Office Visit [facility] MEDICINE [address] [place] [address] Lesia Tran MD [address] [place] [address] 07/03/2024 10:00 AM EDT Office Visit [facility] ADULT DENTAL [address] [place], [place] [phone] Trenton Wilkerson DDS [address] [place], [place] [phone] documented as of this encounter Visit Diagnoses Not on filedocumented in this encounter Additional Health Concerns Assessment Noted Time PHQ-9 Depression Total Score: 21 024 2:23 PM EST documented as of this encounter Care Teams Power Generating Plant Operator Relationship Specialty Start Date End Date Lesia Tran MD [address] [place], [place] [phone] PCP - General Internal Medicine 12/07/23 documented as of this encounter
--- OUTSIDE RECORDS SUMMARY | 2024-06-02 10:10 | XMS_ITS | Encounter Summary ---
Author Organization [employer] Address [address] [facility] [address] 7[address] [place] [address] Care Team Providers Care Welder Boilermaker Name Role Phone Lesia Tran MD Primary [...] Description 06/15/2024 11:30 AM EDT Office Visit [facility] MEDICINE [address] [place] [address] Lesia Tran MD [address] [place] [address] 07/03/2024 10:00 AM EDT Office Visit [facility] ADULT DENTAL [address] [place] [address] Trenton Wilkerson DDS [address] [place] [address] documented as of this encounter Procedures Procedure Name Priority Date/Time Associated Diagnosis Comments IMMUNOGLOBULIN G SUBCLASSES PANEL Routine 05/15/2024 3:30 PM EST IMMUNOGLOBULINS, QUANTITATIVE, IGA, IGG, IGM Routine 05/15/2024 3:30 PM EST documented in this encounter Results * (ABNORMAL) Immunoglobulin G Subclasses Panel (05/15/2024 3:30 PM EST) IgG Subclass 1 702 382 - 929 mg/dL [facility] IgG Subclass 2 304 241 - 700 mg/dL [facility] IgG Subclass 3 37 22 - 178 mg/dL [facility] IgG Subclass 4 92.2(A) 4 - 86 mg/dL [facility] Immunoglobulin G, Serum 1172 600 - 1640 mg/dL [facility] Comment:THIS TEST WAS PERFOR MED AT:[id number] [place] [id number] AMAYA MD 05/15/2024 3:30 PM EST 05/15/2024 3:30 PM EST us Generic External Data Provider LAB BLOOD ORDERAB LES Final Result Performing Organization Address [facility] de Phone Number [facility] [address] [place] [address] [phone] * (ABNORMAL) Immunoglobulins, Quantitative, IgA, IgG, IgM (05/15/2024 3:30 PM EST) IMMUNOGLOBULIN G 1274 600 - 1640 mg/dL [facility] IMMUNOGLOBULIN A 542(A) 47 - 310 mg/dL [facility] Immunoglobulin M 277 50 - 300 mg/dL [facility] Comment:THIS TEST WAS PERFOR MED AT:[id number] [place] [id number] AMAYA MD 05/15/2024 3:30 PM EST 05/15/2024 3:30 PM EST us Generic External Data Provider LAB BLOOD ORDERAB LES Final Result Performing Organization Address [facility] Phone Number [facility] [address] [place] [phone] documented in this encounter Visit Diagnoses Not on filedocumented in this encounter Additional Health Concerns Assessment Noted Time PHQ-9 Depression Total Score: 21 024 2:23 PM EST documented as of this encounter Care Teams Welder Boilermaker Relationship Specialty Start Date End Date Lesia Tran MD [address] [place] [address] PCP - General Internal Medicine 12/07/23 documented as of this encounter
--- OUTSIDE RECORDS SUMMARY | 2024-06-02 10:10 | XMS_ITS | Clinical Summary ---
Author Organization [facility] Address [address] [place] [address] Phone Care Team Providers Care Desk Officer Name Role Phone Az Terrell Primary Care Provider [phone] Immunizations Immunization Administration Dates Next Due DTP [...] age to complete this topic Care Teams Desk Officer Relationship Specialty Start Date End Date Az Terrell [address] [place] [address] PCP - General 11/13/16
--- OUTSIDE RECORDS SUMMARY | 2024-06-02 10:10 | XMS_ITS | Encounter Summary ---
Author Organization [employer] Address [address] [facility] [address] [place] [address] Care Team Providers Care Broadcast Meteorologist Name Role Phone Lesia Tran MD Primary Care Provider + Reason for Visit * Reason Comments Dentures Encounter Details Date Type Department Care Team (Late st Contact Info) Description 06/02/2024 10:00 AM EST Office Visit [facility] [address] [place] [address] Trenton Wilkerson, DDS [address] [place] [address] Complete edentulism, unspecified edentulism class (Primary Dx) [...] AM EDT documented as of this encounter Last Filed Vital Signs Vital Sign Reading Time Taken Comments Blood Pressure 128/76 06/02/2024 9:38 AM EST Pulse - - Temperature - - Respiratory Rate - - Oxygen Saturation - - Inhaled Oxygen Concentration - - Weight - - Height - - Body Mass Index - - documented in this encounter Progress Notes * Trenton Wilkerson DDS - 06/02/2024 10:00 AM EST Patient ID: Yaniv Gutierrez is a 38 y.o. male. Time Out: Timeout Date: 06/02/24, Timeout Time: 09 (fulll upper and full lower Bite reg) Location: [facility] Tooth: Maxilla and Mandible Procedure: Dentures Verified the above with patient, electrician assistant, and provider. Confirmed via patient's chart, intraorally and by radiographs. Hr Intern: not applicable Chief Complaint Patient presents with Dentures Medical Hx: Vitals: Blood pressure 128/76. Medications, Med Hx reviewed with patient and updated in chart. Consent Obtained: The risks, benefits, indications, potential complications, and alternatives were explained to the patient and informed consent was obtained with good understanding. Treatment Provided: Dental procedures in this visit [id number] - BITE REGISTRATION (Completed) Service provider: Trenton Wilkerson DDS Billing provider: Trenton Wilkerson DDS Occlusal Wax rims tried in & records taken: -Vertical Dimension -Midline -Interpupillary line -Occlusal Relationship -Smile Line -Canine [place] Bite Registration taken with: Wax Tooth Selection: Viola Mata Mould: Shade: A 2 Size: Sent to Lab for tooth set up in wax Lab used: [facility] Due Date: 06-16-24 Patient discharged alert, oriented, and in stable condition. NV: Wax try in Calender Runner: Estefany Putnam Dentist: Trenton Wilkerson DDS documented in this encounter Plan of Treatment Upcoming Encounters Date Type Department Care Team (Late st Contact Info) Description 06/15/2024 11:30 AM EDT Office Visit [facility] [address] [place] [address] Lesia Tran MD [address] [place] [address] 07/03/2024 10:00 AM EDT Office Visit [facility] [address] [place] [address] Trenton Wilkerson DDS [address] [place] [address] documented as of this encounter Procedures Procedure Name Priority Date/Time Associated Diagnosis Comments BITE REGISTRATION Routine 06/02/2024 10:00 AM EST documented in this encounter Visit Diagnoses Diagnosis Complete edentulism, unspecified edentulism class- Primary documented in this encounter Additional Health Concerns Assessment Noted Time PHQ-9 Depression Total Score: 21 024 2:23 PM EST documented as of this encounter Care Teams Broadcast Meteorologist Relationship Specialty Start Date End Date Lesia Tran MD [address] [place] [address] PCP - General Internal Medicine 12/07/23 documented as of this encounter
--- OUTSIDE RECORDS SUMMARY | 2024-06-02 10:10 | XMS_ITS | Encounter Summary ---
Author Organization [email or web address] Address [address] [facility] [address] [place] [address] Care Team Providers Care Track Inspector Name Role Phone Roma Bender Primary Care Provider [phone] Neetu Bah Unavailable [phone] Lesia Tran MD Primary Care Provider + Encounter Details Date Type Department Care Team (Late st Contact Info) Description 02/19/2023 Orders Only [facility] [address] [place] [address] Roma Bender FNP [address] [place] [address] Other acute gastritis, presence of bleeding unspecified [...] your housing situation today? I have amando ads 01/27/[address] you li [...] Description 06/15/2024 11:30 AM EDT Office Visit [facility] [address] [place] [address] Lesia Tran MD [address] [place] [address] 07/03/2024 10:00 AM EDT Office Visit [facility] [address] [place] [address] Trenton Wilkerson DDS [address] [place] [address] documented as of this encounter Visit Diagnoses Diagnosis Other acute gastritis, presence of bleeding unspecified- Primary documented in this encounter Additional Health Concerns Assessment Noted Time PHQ-9 Depression Total Score: 11 023 3:14 PM EDT documented as of this encounter Care Teams Track Inspector Relationship Specialty Start Date End Date Roma Bender FNP [address] [place] [address] PCP - General Family Medicine 01/14/23 12/06/23 Lesia Tran MD [address] [place] [address] PCP - General Internal Medicine 12/07/23 Neetu Bah AGNP [address] [place] [phone] Family Medicine 01/14/23 09/02/23 documented as of this encounter
--- OUTSIDE RECORDS SUMMARY | 2024-06-02 10:11 | XMS_ITS | Clinical Summary ---
Author Organization [employer] Address [address] [facility] 7[address] [place] [address] Care Team Providers Care Apprentice Photographer Name Role Phone Lesia Tran MD Primary [...] EVERY DAY AT BEDTIME FOR CONSTIPATION 03/19/20 Active methadone (Dolophine) 10 MG/ML solution Take [...] SWALLOW WHOLE 45 tablet 04/17/19 25 Active hydrOXYzine pamoate (Vistaril) 50 MG capsuleIndica tions:Anxiety Take 1 capsule (50 mg) by mouth if needed in the morning and at bedtime for anxiety. 60 capsule 1 05/29/19 25 025 Active FLUoxetine (PROzac) 20 MG capsuleIndica tions:Anxiety ,Severe episode of recurrent major depressive disorder, without psychotic features (CMS/HCC) Take 1 capsule (20 mg) by mouth in the morning. 30 capsule 1 05/29/19 25 025 Active mirtazapine (Remeron) 15 MG tabletIndicat ions:Anxiety, Severe episode of recurrent major depressive disorder, without psychotic features (CMS/HCC) Take 1 tablet (15 mg) by mouth at bedtime. 30 tablet 1 05/29/19 25 025 Active QUEtiapine (SEROquel) 50 MG tabletIndicat ions:Severe episode of recurrent major depressive disorder, without psychotic features (CMS/HCC) Take 1 tablet (50 mg) by mouth 2 times daily. 60 tablet 1 05/29/19 25 025 Active mirtazapine (Remeron) 15 MG tabletIndicat ions:Severe episode of recurrent major depressive disorder, without psychotic features (CMS/HCC),Anx iety Take 1 tablet (15 mg) by mouth at bedtime. 30 tablet 1 05/01/19 025 Discontinued(R eorder (will not trigger notification to Pharmacy)) QUEtiapine (SEROquel) 50 MG tabletIndicat ions:Severe episode of recurrent major depressive disorder, without psychotic features (CMS/HCC) Take 1 tablet (50 mg) by mouth 2 times daily. 60 tablet 1 05/01/19 025 Discontinued(R eorder (will not trigger notification to Pharmacy)) buPROPion XL (Wellbutrin XL) 300 MG 24 hr tabletIndicat ions:Severe episode of recurrent major depressive disorder, without psychotic features (CMS/HCC),Anx iety Take 1 tablet (300 mg) by mouth Once per day. Do not crush, chew, or split. 30 tablet 1 05/01/19 025 Discontinued(I neffective) hydrOXYzine pamoate (Vistaril) 25 MG capsuleIndica tions:Anxiety Take 1 capsule (25 mg) by mouth if needed in the morning and at bedtime for anxiety. 30 capsule 1 05/01/19 25 025 Discontinued(R eorder (will not trigger notification to Pharmacy)) Active Problems Problem Noted Date Diagnosed Date History of substance use disorder 04/12/2024 Complete edentulism 04/12/2024 TYSON (obstructive sleep apnea) 02/11/2024 Overview (02/11/2024): Sleep study at [facility]: moderate TYSON with nocturnal hypoxemia, <88% 24.1 minutes, lowest 77%. Assessment & Plan (02/11/2024 3:58 PM EST): [facility] Mild persistent asthma 02/11/2024 Assessment & Plan (02/11/2024 4:00 PM EST): Doing well on Breo, fu by [facility] [place] [place] pulmonary Advised re weight reduction. Declined Influenza [...] Plan (02/11/2024 4:01 PM EST): FU by [facility] [place] [place] GI, on Protonix, senna prn constipation Advised [...] for 2.5 years, currently on methadone at [facility], 128mg with a plan on taper down [...] intervention , Patient to reach [facility], and Patient to reach out to [facility] as needed Anxiety 06/10/2023 Overview (10/18/2023): Last Addressed Date: 10/26/2022 Assessment & Plan (02/11/2024 4:04 PM EST): Seen by MH provider at [facility], will bring meds at next appt. He feels safe at home and is able to reach out for safety. Alcohol use disorder in remission 06/10/2023 Cocaine use disorder in remission 06/10/2023 Routine health maintenance 05/29/2023 Assessment & Plan (05/29/2023 2:23 PM EST): -Pt brought labs done by his behavioral health network in 04/06/2023 hb 11.7,chem was [...] 248 Pt brought labs done by his behavioral health network in 04/06/2023 hb 11.7,chem was [...] PM EST): Doing well on Methadone at [facility], has take home bottles Advised to decrease use of THC Encounters * This document contains information received from the source organization and may not represent a complete record from that organization. Date Type Department Care Team Description 06/02/2024 10:00 AM EST Office Visit [facility] [address] [place] [address] Trenton Wilkerson DDS Complete edentulism, unspecified edentulism class (Primary Dx) 05/29/2024 Travel 05/24/2024 Telephone [facility] [address] [place] [phone] Lesia Tran MD Results 05/22/2024 Travel 05/19/2024 Telephone [facility] [address] [place] [phone] Lesia Tran MD Results 05/15/2024 Orders Only GENERIC EXTERNAL DATA DEPARTMENT Provider, Generic External Data 05/15/[address] [address] Lesia Tran MD Med Refill 05/12/2024 Telephone [facility] [address] [place] [address] Bobbi Deal, RN Results: Chest CT 05/12/24 05/03/2024 10:00 AM EST Office Visit [facility] [address] [facility] [place] [address] Trenton Wilkerson DDS Complete edentulism, unspecified edentulism class (Primary Dx) 04/30/2024 Travel 04/17/2024 Refill [facility] [address] [place] [address] Lesia Tran MD 04/12/2024 2:30 PM EST Office Visit [facility] [address] [place] [address] Trenton Wilkerson DDS Complete edentulism, unspecified edentulism class (Primary Dx) 04/12/2024 Travel 04/11/2024 Travel 04/07/2024 Patient Outreach [facility] [address] [place] [address] Lesia Tran MD Pre-visit Planning (SDOH screening completed on ) 03/30/2024 Telephone [facility] [address] [place] [address] Renata Méndez, ROXANN Results 03/11/2024 Orders Only [...] Pressure 128/76 06/02/2024 9:38 AM EST Pulse 90 02/11/2024 9:15 AM EST [...] Description 06/15/2024 11:30 AM EDT Office Visit [facility] [address] [place] [address] Lesia Tran MD [address] [place] [address] 07/03/2024 10:00 AM EDT Office Visit [facility] [address] [place] [address] Trenton Wilkerson DDS [address] [place] [address] Health Maintenance Due Date Last Done Comments [...] 02/01/2025 02/02/2024 Depression Screening 02/10/2025 02/11/2024, 06/10/19 Tobacco Screening 05/29/2025 05/29/2024 Dental X-Ray: Full Mouth 04/13/2027 025, 12/01/2023, [...] Associated Diagnosis Comments BITE REGISTRATION Routine 06/02/2024 10: 00 AM EST IMMUNOGLOBULIN G SUBCLASSES PANEL Routine 05/15/2024 3:30 [...] Subclass 1 702 382 - 929 mg/dL [facility] IgG Subclass 2 304 241 - 700 mg/dL [facility] IgG Subclass 3 37 22 - 178 mg/dL [facility] IgG Subclass 4 92.2(A) 4 - 86 mg/dL [facility] Immunoglobulin G, Serum 1172 600 - 1640 mg/dL [facility] Comment:THIS TEST WAS PERFOR MED AT:[facility] [address] [id number] AMAYA MD 05/15/2024 3:30 PM EST 05/15/2024 3:30 PM EST Generic External Data Provider LAB BLOOD ORDERAB LES Final Result Performing Organization Address [facility] Phone Number [facility] [address] [place] [phone] * (ABNORMAL) Immunoglobulins, Quantitative, IgA, IgG, IgM (05/15/2024 3:30 PM EST) IMMUNOGLOBULIN G 1274 600 - 1640 mg/dL [facility] IMMUNOGLOBULIN A 542(A) 47 - 310 mg/dL [facility] Immunoglobulin M 277 50 - 300 mg/dL [facility] Comment:THIS TEST WAS PERFOR MED AT:[facility] [address] [id number] AMAYA MD 05/15/2024 3:30 PM EST 05/15/2024 3:30 PM EST us Generic External Data Provider LAB BLOOD ORDERAB LES Final Result Performing Organization Address [facility] Co de Phone Number [facility] [address] [place] [phone] * CT Chest w/o Contrast (05/12/2024 9:03 AM EST) Anatomical Region Laterality Modality Body, Chest Computed Tomogra phy 05/12/2024 9:03 AM EST Narrative 05/12/2024 9:54 AM EST ? [facility] ?[address] ?[place] [address] ? CT Scan Report ? Signed ? Patient: Yaniv Gutierrez ?MR#: [id number] ? : 1985 ?Acct:[id number] ? Age/Sex: 38 / M ?ADM Date: 05/12/24 ? Loc: HO.CT ? Attending Dr: Samantha Davis CLINICAL TRAINING SPECIALIST ? Ordering Physician: Samantha Davis NP ?? Date of Service: 05/12/24 ?? Procedure(s): CT chest wo IV con ?? Accession Number(s): [id number] ? cc: Roma Bender CLINICAL TRAINING SPECIALIST; Samantha Davis CLINICAL TRAINING SPECIALIST ? Report Number: ?? [id number]: Total DLP = ??307.00 mGy-cm ?? EXAMINATION: [...] DLP: 307 mGy centimeter. ? FINDINGS: ? ELECTROLYSIST: Large body habitus. No hyperinflation. ? LUNGS: [...] Chase MD ??05/12/2024 09:51 AM ?? EST ? Dictated By: ?Tyrese De Leon MD ? Signed By: ?<Electronically signed by Tyrese Sanchez MD in OV> ? 05/12/24 0951 ? DD/ 0903 ? TD/TT: 05/12/24927 ? Manual Winder: ? Procedure Note Carroll Rubio - 05/12/[address] [place] [address] [address] Scan Report Signed Patient: Yaniv Gutierrez R#: [id number] : 1985Acct:[id number] Age/Sex: 38 / MADM Date: 05/12/24 Loc: HO.CT Attending Dr: Samantha Davis NP Ordering Physician: Samantha Davis NP Date of Service: 05/12/24 Procedure(s): CT chest wo IV con Accession Number(s): [id number] cc: Roma Bender CLINICAL TRAINING SPECIALIST; Samantha Davis NP Report Number: [id number]: Total DLP = 307.00 mGy-cm EXAMINATION: CT [...] reconstruction technique. DLP: 307 mGy centimeter. FINDINGS: ELECTROLYSIST: Large body habitus. No hyperinflation. LUNGS: Small [...] Tyrese Chase MD 05/12/2024 09:51 AM EST Dictated By: Tyrese De Leon MD Signed By: <Electronically signed by Tyrese Sanchez MDin OV> 05/12/2451 DD/ 2 TD/TT: 05/12/24927 Manual Winder: [facility] External Provider IMG CT PROCEDURES Final Result * FL BARIUM SWALLOW MODIFIED (03/13/2024 1:55 PM EST) Anatomical Region Laterality Modality Head, Neck Radiographic Elizabet ging 03/13/2024 1:55 PM EST Narrative 03/14/2024 2:45 PM EST ? [facility] ?[address] ?[place] [address] ? Fluoroscopy Report ? Signed ? Patient: Matt,Amadeo ?MR#: [id number] ? : 1985 ?Acct:[id number] ? Age/Sex: 38 / M ?ADM Date: 03/11/24 ? Loc: HO.S3 ?369-1 ? Attending Dr: Jose Martin Aguiar MD ? Ordering Physician: Jose Martin Aguiar MD ?? Date of Service: 03/13/24 ?? Procedure(s): FL Modified Barium Swallow ?? Accession Number(s): [id number] ? cc: Jose Martin Aguiar MD; Yesica [...] DD/ 1355 ? TD/TT: 03/13/24 1417 ? Manual Winder: ? Procedure Note Ramiro, Image - 03/14/[address] [address] Fluoroscopy Report Signed Patient: Yaniv Gutierrez GMR#: [id number] : 1985Acct:[id number] Age/Sex: 38 / MADM Date: 03/11/24 Loc: HO.S3 369-[address]: Jose Martin Aguiar MD Ordering Physician: Jose Martin Aguiar MD Date of Service: 03/13/24 Procedure(s): FL Modified Barium Swallow Accession Number(s): [id number] cc: Jose Martin Aguiar MD; Yesica Land [...] Compa Wilder MD 03/14/2024 02:43 PM EST Dictated By: Lazarus Petty Signed By: <Electronically signed by Lazarus Petty in OV> 03/14/24 1443 <Electronically signed by Compa Wilder MD in OV> 03/14/24 1445 DD/ 1355 TD/TT: 03/13/24 1417 Manual Winder: [facility] External Provider IMG FLU OROSCOPY PROCEDURES Final Result * Lactic Acid (03/11/2024 3:34 PM EST) Lactic Acid 1.0 0.5 - 2.0 mmol/L [facility] 03/11/2024 3:34 PM EST 03/11/2024 3:39 PM EST us Generic External Data Provider LAB BLOOD ORDERAB LES Final Result [facility] [address] [facility] [place] [phone] [phone] * CTA Chest PE Protocal (03/11/2024 1:18 PM EST) Anatomical Region Laterality Modality Body, Chest Computed Tomogra phy 03/11/2024 1:18 PM EST Narrative 03/11/2024 2:51 PM EST ? [facility] ?[address] ?[place] [address] ? CT Scan Report ? Signed ? Patient: MattYaniv Jordan ?MR#: [id number] ? : 1985 ?Acct:[id number] ? Age/Sex: 38 / M ?ADM Date: 03/11/24 ? Loc: HO.ED ? Attending Dr: ? Ordering Physician: Les Blanchard MD ?? Date of Service: 03/11/24 ?? Procedure(s): CT angio chest PE protocol ?? Accession Number(s): [id number] ? cc: [facility]; Les Blanchard MD ? EXAMINATION: ?? [...] DD/ 1318 ? TD/TT: 03/11/24 1328 ? Manual Winder: ? Procedure Note Carroll Rubio - 03/11/[address] [address] [address] Scan Report Signed Patient: Yaniv Gutierrez R#: [id number] : 1985Acct:[id number] Age/Sex: 38 / MADM Date: 03/11/24 Loc: HO.ED Attending Dr: Ordering Physician: Les Blanchard MD Date of Service: 03/11/24 Procedure(s): CT angio chest PE protocol Accession Number(s): [id number] cc: [facility]; Les Blanchard MD EXAMINATION: CT ANGIOGRAM [...] 03/11/24 1448 DD/ 1318 TD/TT: 03/11/24 1328 Manual Winder: [facility] External Provider IMG CT PROCEDURES Edited Result - Final * D Dimer High Sensitivity (03/11/2024 11:22 AM EST) D Dimer High Sensitivity 373 NG/ML [facility] Comment:D-DIMER HS REFERENCE RANGENote: Our [...] Provider LAB BLOOD ORDERAB LES Final Result [facility] [address] [place] [phone] * XR Chest 1 View (03/11/2024 11:22 AM EST) Anatomical Region Laterality Modality Chest Radiographic Elizabet ging 03/11/2024 11:2 2 AM EST Narrative 03/11/2024 12:17 PM EST ? [facility] ?[address] ?[place] [address] ?XRay Report ? Signed ? Patient: Matt,Amadeo ?MR#: [id number] ? : 1985 ?Acct:[id number] ? Age/Sex: 38 / M ?ADM Date: 12/07/24 ? Loc: HO.ED ? Attending Dr: ? Ordering Physician: Les Blanchard MD ?? Date of Service: 03/11/24 ?? Procedure(s): XR chest 1V ?? Accession Number(s): [id number] ? cc: [facility]; Les Blanchard MD ? EXAMINATION: ?? [...] ??Kacie Roman MD ??03/11/2024 12:14 PM EST ? Dictated By: ?Kacie Roman MD ? Signed By: ?<Electronically signed by Kacie Roman MD in OV> ? 03/11/24 1214 ? DD/ 1122 ? TD/TT: 03/11/24 1138 ? Manual Winder: PN ? Procedure Note Carroll Rubio - 03/11/2024 [place] [address] XRay Report Signed Patient: Yaniv Gutierrez R#: [id number] : 1985Acct:[id number] Age/Sex: 38 / MADM Date: 03/11/24 Loc: HO.ED Attending Dr: Ordering Physician: Les Blanchard MD Date of Service: 03/11/24 Procedure(s): XR chest 1V Accession Number(s): [id number] cc: [facility]; Les Blanchard MD EXAMINATION: XR CHEST [...] 03/11/24 1214 DD/ 1122 TD/TT: 03/11/24 1138 Manual Winder: JESSICA [facility] External Provider IMG XR PROCEDURES Edited Result - Final * Partial Thromboplastin Time, Activated (APTT) (03/11/2024 11:22 AM EST) Partial Thromboplastin Time 32.0 26.0 - 36.8 SEC [facility] Comment:For information rega rding the monitoring of direct thrombininhibitors, please refer to Pharmacy. 03/11/2024 11:2 2 AM EST 03/11/2024 11:31 AM EST Generic External Data Provider LAB BLOOD ORDERAB LES Final Result [facility] [address] [place] [phone] * SARS-CoV-2 RNA, Influenza A/B, and RSV RNA, Ql NAAT (03/11/2024 9:28 AM EST) Influenza A PCR NEGATIVE Negative [facility] Influenza B PCR NEGATIVE Negative [facility] Resp Syncy Virus RNA Qual PCR NEGATIVE Negative [facility] SARS COV2 PCR NEGATIVE Negative [facility] Comment:All test results mus t [...] use by authorized laboratories.Testing performed on the Voalte GeneXpert utilizingreal-time RT-PCR.All SARS CoV2 and positive influenza A/B results arereported to [facility]. 03/11/2024 9:28 AM EST 03/11/2024 9:32 AM EST us Generic External Data Provider LAB MICROBIOLOGY - GENERAL ORDERABLES Final Result [facility] [address] [place] [phone] * (ABNORMAL) Drug Monitoring, Panel 1, Screen, Urine (03/11/2024 9:28 AM EST) Opiate Screen Urine POSITIVE(A) Not Detect [facility] Comment:Opiate cut-off is 30 0 ng/mL.Positive results are unconfirmed and should not be used fornon-medical purposes. Barbiturates, Urine Not Detected Not Detect [facility] Comment:Barbiturate cut-off is 200 ng/mL.Positive results are unconfirmed and should not be used fornon-medical purposes. Phencyclidine Screen Urine Not Detected Not Detect [facility] Comment:Phencyclidine cut-of f is 25 ng/mL.Positive results are unconfirmed and should not be used fornon-medical purposes. Amphetamine Screen Urine Not Detected Not Detect [facility] Comment:Amphetamine cut-off is 1000 ng/mL.Positive results are unconfirmed and should not be used fornon-medical purposes. Benzodiazepines Screen Urine Not Detected Not Detect [facility] Comment:Benzodiazepine cut-o ff is 200 ng/mL.Positive results are unconfirmed and should not be used fornon-medical purposes. Cocaine Screen Urine POSITIVE(A) Not Detect [facility] Comment:Cocaine cut-off is 3 00 ng/mL.Positive results are unconfirmed and should not be used fornon-medical purposes. Cannabinoid Screen Urine POSITIVE(A) Not Detect [facility] Comment:Cannabinoid cut-off is 50 ng/mL.Positive results are unconfirmed and should not be used fornon-medical purposes. Methadone Screen, Urine Positive(A) Not Detect ng/mL [facility] Comment:Methadone cut-off is 300 ng/mL.Positive results are unconfirmed and should not be used fornon-medical purposes. FENTANYL URINE POSITIVE(A) Not Detect [facility] Comment:Fentanyl cut-off is 1 ng/mL.Positive results are unconfirmed and should not be used fornon-medical purposes. Oxycodone Urine Screen Not Detected Not Detect ng/mL [facility] Comment:Oxycodone cut-off is 100 ng/mL.Positive results are unconfirmed and should not be used fornon-medical purposes. Buprenorphine Screen Not Detected Not Detect ng/mL [facility] Comment:Buprenorphine cut-of f is 5 ng/mL.Positive results are unconfirmed and should not be used fornon-medical purposes. 03/11/2024 9:28 AM EST 03/11/2024 3:45 PM EST us Generic External Data Provider LAB URINE ORDERAB LES Final Result [facility] [address] [place] [phone] * Urinalysis w/reflex microscopic (03/11/2024 9:28 AM EST) Color Urine Yellow [facility] Appearance Urine Clear [facility] PH 7.0 5.0 - 9.0 [facility] Glucose Urine UA Negative Negative mg/dL [facility] Urine Blood Negative Negative [facility] Specific Condon - Urine 1.015 1.005 - 1.025 [facility] Urine Protein Negative Neg-Trace mg/dL [facility] Urine Ketones Negative Negative mg/dL [facility] Nitrite Urine Negative Negative [facility] Leukocyte Esterase Urine Negative Negative [facility] 03/11/2024 9:28 AM EST 03/11/2024 9:32 AM EST Narrative [facility] - 03/11/2024 9:37 AM EST [id number], Clean C[employer] Generic External Data Provider LAB URINE ORDERAB LES Final Result Performing Organization Address [facility] Co de Phone Number [facility] [address] [place] [phone] * High Sensitivity Troponin I (03/11/2024 9:09 AM EST) [facility] TROPONIN I HIGH SENSITIVITY <2.7 <3.5 - 35.0 ng/L [facility] Comment:The Moore high sens itivity Troponin-I results should beused in conjunction with other diagnostic information suchas ECG, clinical observations and information, and patientsymptoms to aid in the diagnosis of NV. 03/11/2024 9:09 AM EST 03/11/2024 9:13 AM EST Generic External Data Provider LAB BLOOD ORDERAB LES Final Result Performing Organization Address [facility] Number [facility] [address] [place] [phone] * (ABNORMAL) CBC auto differential (03/11/2024 9:09 AM EST) White Blood Count 15.9(H) 4.8 - 10.8 X10*3/uL [facility] Red Blood Count 4.43(L) 4.60 - 5.80 X10*6/uL [facility] Hemoglobin 11.6(L) 14.0 - 18.0 g/dl [facility] Hematocrit 35.7(L) 42.0 - 52.0 % [facility] Mean Corpuscular Volume 80.6 80.0 - 98.0 fL [facility] Mean Corpuscular Hemoglobin 26.2(L) 27.0 - 33.0 pg [facility] Mean Corpuscular HGB Conc 32.5 31.0 - 36.0 g/dl [facility] Red Cell Distribution Width 14.3 11.0 - 16.0 % [facility] Platelet Count 258 160 - 400 X10*3/uL [facility] Mean Platelet Volume 8.7(L) 9.4 - 12.4 fL [facility] Neutrophils Percent Auto 84.7(H) 45 - 73 % [facility] Imm Gran Pct Auto 0.4 0.0 - 0.4 % [facility] Lymphocytes Percent Auto 6.5(L) 20 - 40 % [facility] Monocytes Percent Auto 6.1 2 - 11 % [facility] Eosinophils Percent Auto 2.0 0 - 4 % [facility] Basophils Percent Auto 0.3 0 - 2 % [facility] NRBC Pct Auto 0.0 0.0 - 0.2 /100WBC [facility] Neutrophils Absolute Auto 13.5(H) 2.0 - 8.3 x10*3/uL [facility] Imm Gran Abs Auto 0.07(H) 0.00 - 0.03 X10*3/uL [facility] Lymphocytes Absolute Auto 1.0(L) 1.2 - 4.9 X10*3/uL [facility] Monocytes Absolute Auto 1.0 0.1 - 1.2 X10*3/uL [facility] Eosinophils Absolute Auto 0.3 0.0 - 0.4 X10*3/uL [facility] Basophils Absolute Auto 0.1 0.0 - 0.2 X10*3/uL [facility] NRBC Abs Auto 0.000 0.0 - 0.012 X10*3/uL [facility] 03/11/2024 9:09 AM EST 03/11/2024 9:13 AM EST us Generic External Data Provider LAB BLOOD ORDERAB LES Final Result [facility] [address] [place] [phone] * (ABNORMAL) Comprehensive Metabolic Panel (03/11/2024 9:09 AM EST) Sodium 137 135 - 145 mmol/L [facility] Potassium 3.9 3.3 - 5.1 mmol/L [facility] Chloride 103 96 - 108 mmol/L [facility] Carbon Dioxide 25 22 - 29 mmol/L [facility] Anion Gap 13 12 - 20 [facility] Urea Nitrogen (BUN) 10 9 - 16 mg/dL [facility] Creatinine, Serum 0.83 0.5 - 1.4 mg/dL [facility] Creatinine Clr Calc Pharmacy 151.1 [facility] Comment:eGFR (calculated fro m the MDRD study equation) and eCrCl(calculated from the Cockcroft-Gault equation) are based ondifferent parameters and may not yield comparable results.If eCrCl result is absurd, please check patient'sheight/weight. Estimated Glomerular Filt Rate >60 [facility] Comment:Chronic Kidney Disea se: Estimated GFR < 60 mL/min/1.15h0Smjpcl Kidney Disease: Estimated GFR < 15 mL/min/1.73m2 Glucose 115 60 - 115 mg/dL [facility] Calcium 9.0 8.4 - 10.2 mg/dL [facility] Bilirubin, Total 0.7 0.0 - 1.0 mg/dL [facility] Aspartate Amino Transferase 57(H) 5 - 37 U/L [facility] Alanine Aminotransferase 31 0 - 40 U/L [facility] Total Protein 7.0 6.5 - 8.0 g/dL [facility] Albumin Level 3.7 3.5 - 5.0 g/dL [facility] Alkaline Phosphatase 92 39 - 117 U/L [facility] 03/11/2024 9:09 AM EST 03/11/2024 9:13 AM EST us Generic External Data Provider LAB BLOOD ORDERAB LES Final Result [facility] [address] [place] [phone] * (ABNORMAL) Lipid Panel, Standard (06/08/2023 8:20 AM EST) Triglycerides 236(H) <150 mg/dL [facility] Comment:Desirable Triglyceri de: less than 150 mg/dLBorderline High Triglyceride 150-199 mg/dLHigh Triglyceride: 200-499 mg/dLVery High Triglyceride: greater than or equal to 5OO mg/dL Cholesterol 137 <200 mg/dL [facility] Comment:Desirable Cholestero l: less than 200 mg/dLBorderline High Cholesterol: 200-239 mg/dLHigh Cholesterol: greater than 239 mg/dL LDL Cholesterol Calculated 57 <100 mg/dL [facility] Comment:Desirable LDL: less than 100 mg/dLNear Optimal/Above Optimal LDL: 110- 129 mg/dLBorderline High LDL: 130-159 mg/dLHigh LDL: 160-189 mg/dLVery High LDL: greater than or equal to 190 mg/dL HDL Cholesterol 33(L) >40 mg/dL [facility] Comment:Desirable HDL: great er than 40 mg/dL Note: This HDL assay may give artificially low results in patients with liver disease. Blood Venous blood specimen / Unknown 06/08/2023 8:20 AM EST 06/08/2023 11:33 AM EST us Yesica Ibarra MD LAB BLOOD ORDERAB LES Final Result [facility] [address] [place] [address] [phone] from Last 3 Months or Most Recently Relevant to Health Maintenance Insurance [facility] AD[place] Care Teams Apprentice Photographer Relationship Specialty Start Date End Date Lesia Tran MD [address] [place] [id number] PCP - General Internal Medicine 12/07/23
--- OUTSIDE RECORDS SUMMARY | 2024-06-02 10:11 | XMS_ITS | Encounter Summary ---
Author Organization [employer] Address [address] [facility] [address] [place] [address] Care Team Providers Care Equipment Monitor Phototypesetting Name Role Phone Lesia Tran MD Primary Care Provider + Reason for Visit * Reason Onset Date Comments medication 02/02/2024 Encounter Details Date Type Department Care Team (Late st Contact Info) Description 02/02/2024 Telephone [facility] [address] [place] [address] Trenton Wilkerson, BJS [address] [place] [address] medication Social History Tobacco Use Types Packs/Day [...] AM EDT Office Visit [facility] [address] [place] [address] Lesia Tran MD [address] [place] [address] 07/03/2024 10:00 AM EDT Office Visit [facility] [address] [place] [address] Trenton Wilkerson DDS [address], [place] [phone] documented as of this encounter Visit Diagnoses Not on filedocumented in this encounter Additional Health Concerns Assessment Noted Time PHQ-9 Depression Total Score: 21 024 2:23 PM EST documented as of this encounter Care Teams Equipment Monitor Phototypesetting Relationship Specialty Start Date End Date Lesia Tran MD [address] [place] [address] PCP - General Internal Medicine 12/07/23 documented as of this encounter
[2024-06-02 11:11] LABS: Amphetamine Screen Urine Not Detected (Not Detect); Barbiturates, Urine Not Detected (Not Detect); Benzodiazepines Screen Urine Not Detected (Not Detect); Buprenorphine Scr Not Detected (Not Detect); Cannabinoid Screen Urine POSITIVE (Not Detect); Cocaine Screen Urine Not Detected (Not Detect); Fentanyl, urine Not Detected (Not Detect); Methadone Screen, Urine Positive (Not Detect); Opiate Screen Urine Not Detected (Not Detect); Oxycodone Screen Urine Not Detected (Not Detect); Phencyclidine Screen Urine Not Detected (Not Detect)
== END 2024-06-02 09:28 | disposition home or self-care (01) ==
LOC: HO.HHCL 09:27
PROVIDERS: Visit Provider Registered Nurse
DX: F41.9 Anxiety disorder, unspecified (principal)
CPT/HCPCS: 80307

== ENCOUNTER 2024-06-15 12:43 | Emergency (ER) | payer MEDICAID, SELFPAY ==
--- NOTE | ~2024-06-15 | XR_ITS ---
EXAMINATION: XR CHEST CLINICAL INFORMATION: hypoxic COMPARISON: 05/30/2024. CT chest 05/12/2024. TECHNIQUE: 2 views of the chest were obtained. FINDINGS: The cardiac, hilar, and mediastinal contours are normal. Lungs again demonstrate improving but persistent patchy subtle opacities in the left perihilar region, and right base, similar to the prior exam with mild improvement. No new consolidative opacity. There is an appearance of miliary type groundglass nodules in both mid to lower lungs, similar to the CT chest of 05/12/2024. There are no effusions. There is no pneumothorax. There is no focal osseous or soft tissue abnormality. XR/XR chest 2V IMPRESSION: 1. Improving but persistent patchy opacities left perihilar region and right lower lung. 2. Subtle miliary pattern of groundglass micronodules throughout both lungs mid and lower aspects. This carries a long differential diagnosis inclusive of atypical infections (CMV, PCP), aspiration pneumonitis, hypersensitivity pneumonitis, RBILD, is limited interstitial pneumonia, cryptogenic organizing pneumonia, follicular bronchitis, atypical presentation of pulmonary edema, among other etiologies. Electronically signed by: Compa Wilder MD 06/15/2024 03:21 PM EDT
--- NOTE | ~2024-06-15 | CT_ITS ---
CLINICAL HISTORY: persistent sweats cold chills prior multifocal pna CT CHEST WITH CONTRAST Comparison: CT/KS/SR - CT CHEST WO IV CON - 05/12/24 09:13 EST Findings: The heart size is normal. The thoracic aorta is normal caliber. The visualized thyroid gland is unremarkable. There are multiple nonenlarged and likely reactive mediastinal lymph nodes. Small hiatal hernia. Interval improvement in multifocal bilateral pneumonia with now diffuse reticulonodular infiltrates bilaterally sparing the right upper lobe. No consolidation, pleural effusion or pneumothorax. There is diffuse fatty infiltration of the liver. The spleen measures 15.4 cm. No acute fractures. IMPRESSION: 1. Mild bilateral interstitial pneumonitis. 2. No segmental or lobar pneumonia. 3. Splenomegaly. Hepatic steatosis. This document has been electronically signed by: Robina Canseco DO on 06/15/2024 18:35:50
[2024-06-15 12:51] VITALS: BP 138/86; BP 150/86; PULSE 103; PULSE 89; RESP 22; TEMP 37; O2SAT 94; O2SAT 96; BMI 43.8
[2024-06-15 13:02] VITALS: RESP 20
[2024-06-15 13:18] LABS: Glucose, Whole Blood 137 mg/dL (60-115)
--- NOTE | 2024-06-15 13:37 | ECG_ITS ---
Test Reason : DIAPHORETIC Blood Pressure : */* mmHG Vent. Rate : 101 BPM Atrial Rate : 101 BPM P-R Int : 156 ms QRS Dur : 86 ms QT Int : 390 ms P-R-T Axes : 71 -16 0 degrees QTcB Int : 505 ms Artifact in tracing Sinus tachycardia Inferior infarct (cited on or before 06-Feb-2022) Abnormal ECG When compared with ECG of 11-Mar-2024 08:56, No significant changes seen Referred By: Generic ED Physician Electronically Signed By: ROSAMARIA KUNZ
[2024-06-15 14:21] LABS: MANUAL DIFF FLAG NO
[2024-06-15 14:28] LABS: Basophils Percent Auto 0.3 % (0-2); Eosinophils Absolute Auto 0.1 X10*3/uL (0.0-0.4); Eosinophils Percent Auto 0.4 % (0-4); Hematocrit 37.5 % (42.0-52.0); Imm Gran Abs Auto 0.06 X10*3/uL (0.00-0.03); Imm Gran Pct Auto 0.5 % (0.0-0.4); Lymphocytes Percent Auto 8.4 % (20-40); Mean Corpuscular Hemoglobin 24.4 pg (27.0-33.0); Mean Corpuscular Volume 76.2 fL (80.0-98.0); Mean Platelet Volume 8.7 fL (9.4-12.4); Monocytes Absolute Auto 0.7 X10*3/uL (0.1-1.2); Monocytes Percent Auto 5.8 % (2-11); Neutrophils Absolute Auto 10.2 x10*3/uL (2.0-8.3); Neutrophils Percent Auto 84.6 % (45-73); Platelet Count 303 X10*3/uL (160-400); Red Blood Count 4.92 X10*6/uL (4.60-5.80); Red Cell Distribution Width 14.4 % (11.0-16.0)
[2024-06-15] MEDS: 0.9 % Sodium Chloride 1,000 ML 999 ML IV ×2 (14:33→17:50)
[2024-06-15] MEDS: ondansetron HCL 4 MG/2 ML VIAL IVPUSH (14:34)
--- NOTE | 2024-06-15 14:34 | ECG_ITS ---
Test Reason : REPEAT Blood Pressure : */* mmHG Vent. Rate : 85 BPM Atrial Rate : 85 BPM P-R Int : 144 ms QRS Dur : 96 ms QT Int : 416 ms P-R-T Axes : 41 5 27 degrees QTcB Int : 495 ms Normal sinus rhythm Normal ECG When compared with ECG of 15-Jun-2024 14:09, No significant changes seen Referred By: Generic ED Physician Electronically Signed By: ROSAMARIA KUNZ
[2024-06-15 14:37] LABS: Alanine Aminotransferase 17 U/L (0-40); Albumin Level 3.9 g/dL (3.5-5.0); Alkaline Phosphatase 108 U/L (39-117); Anion Gap 12 (12-20); Aspartate Amino Transferase 23 U/L (5-37); Bilirubin Direct 0.2 mg/dL (0.0-0.5); Bilirubin Total 0.4 mg/dL (0.0-1.0); Blood Urea Nitrogen 13 mg/dL (9-16); Carbon Dioxide 27 mmol/L (22-29); Chloride 103 mmol/L (96-108); Creatinine Clr Calc Pharmacy 148.4; Estimated Glomerular Filt Rate > 60; Glucose Random 137 mg/dL (60-115); Lipase 9 U/L (8-78); Potassium 3.9 mmol/L (3.3-5.1); Sodium 138 mmol/L (135-145); Total Protein 8.1 g/dL (6.5-8.0)
[2024-06-15 15:04] VITALS: BP 114/75; PULSE 85; RESP 14; TEMP 36.1; O2SAT 92
[2024-06-15 15:37] LABS: Appearance Urine Clear; Color Urine Yellow; Glucose Urine UA Negative (Negative); Leukocyte Esterase Urine Negative (Negative); Nitrite Urine Negative (Negative); PH >= 9.0 (5.0-9.0); UMIC TRIGGER UACC YES; Urine Blood Negative (Negative); Urine Ketones Negative (Negative); Urine Protein 30 (1+) mg/dL (Neg-Trace)
[2024-06-15 15:39] LABS: Bacteria Urine None Seen (None Seen); Hyaline Casts Urine 0-2 /LPF (0-2); RBC Urine 0-2 /HPF (0-2); Squamous Epithelial Cell Urine 0-2 /HPF (0-2); WBC Urine 0-5 /HPF (0-5)
[2024-06-15 15:51] LABS: Amphetamine Screen Urine Not Detected (Not Detect); Barbiturates, Urine Not Detected (Not Detect); Benzodiazepines Screen Urine Not Detected (Not Detect); Buprenorphine Scr Not Detected (Not Detect); Cannabinoid Screen Urine POSITIVE (Not Detect); Cocaine Screen Urine Not Detected (Not Detect); Fentanyl, urine Not Detected (Not Detect); Methadone Screen, Urine Not Detected (Not Detect); Opiate Screen Urine Not Detected (Not Detect); Oxycodone Screen Urine Not Detected (Not Detect); Phencyclidine Screen Urine Not Detected (Not Detect)
[2024-06-15 16:04] LABS: Influenza A PCR NEGATIVE (Negative); Influenza B PCR NEGATIVE (Negative); Resp Syncy Virus RNA Qual PCR NEGATIVE (Negative); SARS COV2 PCR INHOUSE NEGATIVE (Negative)
--- NOTE | 2024-06-15 16:29 | ED_ITS ---
HPI - General Adult General Chief complaint: General Medical Stated complaint: ABD PAIN,WEAK,DIZZY, SEEN FOR SAME RECENTLY Time Seen by Provider: 06/15/24 15:58 Source: patient Mode of arrival: ambulatory Limitations: no limitations History of Present Illness ED Provider: Chelesa Kyle NP HPI narrative: Patient is a 38-year-old male past medical history of exocrine pancreatic insufficiency, opioid use disorder on methadone, asthma who presents emergency department for evaluation of multiple complaints. He states he has been having ongoing pain in his abdomen that radiates to his back between his shoulders this has been going on for many years has associated nausea with occasional vomiting, reports that he is following with GI for this. He recently attempted to have an outpatient MRI obtained but after 10 minutes was not able to tolerate the exam, states it was like I was being radiated I had to get out of there the exam was stopped. He did not contact his quill layer to discuss this further. Pain is unchanged from his baseline He admits to having an ongoing cough and a sensation that there is a hole in my lung pointing to the right side of his chest. He is not able to describe this in any other way. Describes it as painful. He was recently seen in the emergency department at the end of May and states he received a prescription for antibiotics, and reports that that has in fact improved his cough but still remains present he no longer has brown sputum associated with this. He reports his primary concern today is that he has been experiencing a cold burning sensation throughout the entirety of his body that started today for the first time. He gets intermittently diaphoretic/sweaty throughout the day but states that this is constant over the past 2-3 years as well and is not new for him. He denies sweating to be worse at night. Denies recent unintentional weight loss. Denies history of malignancy. Denies associated fevers. Related Data Home Medications ?Medication ?Instructions ?Recorded ?Confirmed albuterol sulfate 90 mcg/actuation 2 puff inhalation Q4H PRN wheezing 09/02/23 05/29/24 aerosol inhaler (Ventolin HFA) aspirin 81 mg tablet,delayed 81 mg PO DAILY 09/02/23 05/29/24 release bupropion HCl 150 mg 24 hr tablet, 150 mg PO DAILY 09/02/23 05/29/24 extended release mirtazapine 15 mg tablet 15 mg PO BEDTIME 09/02/23 05/29/24 quetiapine 50 mg tablet 50 mg PO BID 09/02/23 05/29/24 acetaminophen 650 mg 650 mg PO Q8H PRN moderate pain 03/11/24 05/29/24 tablet,extended release methadone 10 mg/mL oral 125 mg PO DAILY 03/11/24 05/29/24 concentrate (Methadone Intensol) polyethylene glycol 3350 17 17 g PO DAILY PRN Constipation 03/11/24 05/29/24 gram/dose oral powder (Miralax) Previous Rx's ?Medication ?Instructions ?Recorded esomeprazole magnesium 40 mg 40 mg PO DAILY #30 caps 01/14/24 capsule,delayed release (Nexium) famotidine 40 mg tablet 40 mg PO BEDTIME 90 days #90 tabs 01/14/24 bwkonq-akrjjfyh-evqyxrv 2 cap PO TID #90 caps 04/06/24 36,000-114,000-180,000 unit capsule,delay rel (Creon) magnesium oxide 400 mg PO BEDTIME #30 caps 04/14/24 sennosides 8.6 mg tablet (Natural 17.2 mg (2 x 8.6 mg) PO BEDTIME 05/02/24 Senna Laxative) constipation #180 tabs fluticasone furoate 200 1 inh inhalation DAILY #60 ea 05/10/24 mcg-vilanterol 25 mcg/dose inhalation powder (Breo Ellipta) cefuroxime axetil 500 mg tablet 500 mg PO BID #13 tabs 05/31/24 doxycycline hyclate 100 mg capsule 100 mg PO BID #13 caps 05/31/24 ondansetron HCl 4 mg tablet 4 mg PO Q8H PRN nausea and 05/31/24 vomiting #10 tabs Allergies Allergy/AdvReac Type Severity Reaction Status Date / Time Penicillins [PENICILLINS] Allergy Unknown RASH Verified 06/15/24 13:00 Review of Systems 2 Review of Systems: Yes all other systems are reviewed and are negative [facility] Past Medical History Attestation statement: The following information was validated with the patient. Source: old records reviewed Medical History (Updated 06/15/24 @ 20:08 by Chelsea Kyle CNP) Exocrine pancreatic insufficiency Polysubstance abuse No known health problems Social History Social History Household Members: Family Housing: [facility] Do you presently have visiting nurse or other home services: No Alcohol intake: former Patient Tobacco Use Status: Former Tobacco user Smoked in Last 30 Days: No Substance Use Type: Marijuana Advance Directives: No Advance Directives Information Provided: Yes service: No Physical Exam ED Vital Signs: Vital Signs - 24 hr 06/15/24 12:51 06/15/24 13:02 06/15/24 15:04 Temperature 98.6 F 97.0 F Pulse Rate 89 85 Respiratory Rate 22 H 20 14 Blood Pressure 150/86 H 114/75 Pulse Oximetry 94 92 Oxygen Delivery Method Room Air Room Air 06/15/24 18:10 Temperature 97.0 F Pulse Rate 84 Respiratory Rate 16 Blood Pressure 117/72 Pulse Oximetry 96 Oxygen Delivery Method Room Air BMI result Body Mass Index 43.8 Appearance: Alert.?Oriented to person, place and time. No acute distress.?Normal affect.?? Neck: Normal inspection.? Neck supple.?? CVS: Heart sounds normal. Normal heart rate and rhythm.? Pulses normal.?? Respiratory: No respiratory distress.? Lung sounds clear to auscultation bilaterally?? Abdomen: Soft mild diffuse generalized tenderness upon palpation no focal areas of increased tenderness. No guarding or rigidity. No rebound tenderness at McBurney's point. Negative psoas sign. Negative Rovsing sign. Negative Ang sign. No CVAT. Normoactive bowel sounds. No pulsatile mass.?? Skin: Skin warm and dry.? Normal skin color.? Extremities: No lower extremity edema.? Neuro: Moves all extremities spontaneously. Sensation intact bilaterally. Ambulates with normal steady gait. Course Reevaluation(s) Reevaluation #1: Chest CT revealing interstitial pneumonitis mild, recommending outpatient follow-up oncology. Patient is becoming acutely agitated, requesting something for his anxiety, we reviewed plan of care for discharge home, has no acute pathology identifiable today, no indication for admission. Reviewed this case with my attending Dr. Davis who agrees. He was amenable to receiving lorazepam. He denies that he is withdrawing from anything, again his methadone was detectable, he becomes upset when I ask when he took his lase dose, does not provide me an answer. Time: 20:03 Medications Administered Discontinued Medications Generic Name Dose Route Start Last Admin Trade Name Freq PRN Reason Stop Dose Admin Sodium Chloride 1,000 mls @ 999 mls/hr 06/15/24 14:30 06/15/24 15:52 Ns IV 06/15/24 15:30 Infused .Q1H1M SHEELA Infusion Sodium Chloride 1,000 mls @ 999 mls/hr 06/15/24 17:15 06/15/24 18:53 Ns IV 06/15/24 18:15 Infused .Q1H1M SHEELA Infusion Iohexol 100 ml 06/15/24 18:06 06/15/24 18:06 Iohexol 350 Mg/Ml 100 Ml Infus..Btl IV 06/15/24 18:07 65 ml ONCE ONE Administration Lorazepam 2 mg 06/15/24 19:31 06/15/24 19:54 Lorazepam 1 Mg Tablet PO 06/15/24 19:32 2 mg ONCE ONE Administration Ondansetron HCl 4 mg 06/15/24 14:19 06/15/24 14:34 Ondansetron Hcl 4 Mg/2 Ml Vial IVPUSH 06/15/24 14:20 4 mg ONCE ONE Administration Medical Decision Making Medical Decision Making [facility] Narrative: Patient is a 38-year-old male past medical history of exocrine pancreatic insufficiency, opioid use disorder on methadone, asthma Who presents emergency department for evaluation, he has been having ongoing abdominal pain, cough, intermittent sweating and chills for 2-3 years. Of note he does admit that his cough has recently improved since his course of antibiotics. he was most recently seen by her librarian school 05/28/2024; had an admission in March of 2024 for aspiration pneumonia, masslike consolidation in the left upper lobe as well as patchy opacities throughout suggestive of multifocal pneumonia for aspiration pneumonia was treated with ertapenem discharged home with clindamycin. A repeat chest CT obtained patient showed minimal improvement overall and he was placed on cefpodoxime, endorsed feeling overall much improved. However He was seen 2 days later in the emergency department 05/30/2024 for cough and lung pain , CXR revealing multifocal pneumonitis, he was given a prescription for cefuroxime and doxycycline and has reported notable improvement. plan for a 3 month follow-up CT of the chest to assure resolution his abdominal pain is unchanged from his baseline by his account and overall his examination appears consistent with prior evaluations, a generalized vague abdominal tenderness diffusely without localized point tenderness. He is without tachycardia tachypnea or hypotension. On review of serum labs he has a mild leukocytosis 12,000 which is downtrending from most recent visit, mild microcytic anemia does not meet transfusion criteria, no thrombocytopenia. Electrolytes are unremarkable. No SHERINE. Unremarkable LFTs and lipase. Urinalysis without evidence of infection or microscopic hematuria. I have a low suspicion for acute surgical abdomen. Of note, his MORRIS is negative for methadone which he has onto his history of opioid use disorder, states he has been taking it occasionally misses some doses, denies feelings of opiate withdrawal. Primary concern is a cold burning sensation throughout the body with onset today. He is noted to be diaphoretic and pale at the time of my evaluation, per nursing staff and this is much improved since his initial presentation to the ED. the sweating is chronic over the past 2-3 years by patient's account. Denies history of malignancy, no fevers, denies it to be worse at night. plan to obtain repeat chest CT at this time to assure no worsening since his most recent in May 2024 potential etiology of his symptoms Differential Diagnosis Differential Diagnoses: The differential diagnosis associated with the presentation includes (See narrative above) Admission/Observation Consideration of admission/observation: Escalation of care including admission/observation considered (See narrative above ) Lab Data MDM Lab Attestation statement: I reviewed the patient's lab results. 06/15/24 14:16 06/15/24 14:16 Labs: Lab Results 06/15/24 06/15/24 06/15/24 Range/Units 13:15 14:15 14:16 WBC 12.0 H (4.8-10.8) X10*3/uL RBC 4.92 (4.60-5.80) X10*6/uL Hgb 12.0 L (14.0-18.0) g/dl Hct 37.5 L (42.0-52.0) % MCV 76.2 L (80.0-98.0) fL MCH 24.4 L (27.0-33.0) pg MCHC 32.0 (31.0-36.0) g/dl RDW 14.4 (11.0-16.0) % Plt Count 303 (160-400) X10*3/uL MPV 8.7 L (9.4-12.4) fL Immature Gran % (Auto) 0.5 H (0.0-0.4) % Neut % (Auto) 84.6 H (45-73) % Lymph % (Auto) 8.4 L (20-40) % [place] % (Auto) 5.8 (2-11) % Eos % (Auto) 0.4 (0-4) % Baso % (Auto) 0.3 (0-2) % Lymph # (Auto) 1.0 L (1.2-4.9) X10*3/uL [place] # (Auto) 0.7 (0.1-1.2) X10*3/uL Eos # (Auto) 0.1 (0.0-0.4) X10*3/uL Baso # (Auto) 0.0 (0.0-0.2) X10*3/uL Abs Immat Gran (auto) 0.06 H (0.00-0.03) X10*3/uL Absolute Neuts (auto) 10.2 H (2.0-8.3) x10*3/uL Absolute Nucleated RBC 0.000 (0.0-0.012) X10*3/uL Nucleated RBC % (auto) 0.0 (0.0-0.2) /100WBC Hold Purple Top SEE NOTE Hold Blue Top SEE NOTE Sodium 138 (135-145) mmol/L Potassium 3.9 (3.3-5.1) mmol/L Chloride 103 (96-108) mmol/L Carbon Dioxide 27 (22-29) mmol/L Anion Gap 12 (12-20) BUN 13 (9-16) mg/dL Creatinine 0.88 (0.5-1.4) mg/dL Estim Creat Clear Calc 148.4 Estimated GFR > 60 POC Glucose 137 H (60-115) mg/dL Random Glucose 137 H (60-115) mg/dL Calcium 9.0 (8.4-10.2) mg/dL Total Bilirubin 0.4 (0.0-1.0) mg/dL Direct Bilirubin 0.2 (0.0-0.5) mg/dL AST 23 (5-37) U/L ALT 17 (0-40) U/L Alkaline Phosphatase 108 (39-117) U/L Total Protein 8.1 H (6.5-8.0) g/dL Albumin 3.9 (3.5-5.0) g/dL Lipase 9 (8-78) U/L Urine Color Urine Appearance Urine pH (5.0-9.0) Ur Specific Harris (1.005-1.025) Urine Protein (Neg-Trace) mg/dL Urine Glucose (UA) (Negative) mg/dL Urine Ketones (Negative) mg/dL Urine Blood (Negative) Urine Nitrite (Negative) Ur Leukocyte Esterase (Negative) Urine RBC (0-2) /HPF Urine WBC (0-5) /HPF Ur Squamous Epith Cells (0-2) /HPF Urine Bacteria (None Seen) Hyaline Casts (0-2) /LPF Urine Opiates Screen (Not Detect) Ur Buprenorphine Scrn (Not Detect) ng/mL Ur Oxycodone Screen (Not Detect) ng/mL Urine Methadone Screen (Not Detect) ng/mL Urine Fentanyl Screen (Not Detect) Ur Barbiturates Screen (Not Detect) Ur Phencyclidine Scrn (Not Detect) Ur Amphetamines Screen (Not Detect) U Benzodiazepines Scrn (Not Detect) Urine Cocaine Screen (Not Detect) U Marijuana (THC) Screen (Not Detect) Influenza Type A (PCR) (Negative) Influenza Type B (PCR) (Negative) RSV RNA Qual (PCR) (Negative) SARS-CoV-2 RNA (RT-PCR) (Negative) 06/15/24 06/15/24 Range/Units 15:19 15:31 WBC (4.8-10.8) X10*3/uL RBC (4.60-5.80) X10*6/uL Hgb (14.0-18.0) g/dl Hct (42.0-52.0) % MCV (80.0-98.0) fL MCH (27.0-33.0) pg MCHC (31.0-36.0) g/dl RDW (11.0-16.0) % Plt Count (160-400) X10*3/uL MPV (9.4-12.4) fL Immature Gran % (Auto) (0.0-0.4) % Neut % (Auto) (45-73) % Lymph % (Auto) (20-40) % [place] % (Auto) (2-11) % Eos % (Auto) (0-4) % Baso % (Auto) (0-2) % Lymph # (Auto) (1.2-4.9) X10*3/uL [place] # (Auto) (0.1-1.2) X10*3/uL Eos # (Auto) (0.0-0.4) X10*3/uL Baso # (Auto) (0.0-0.2) X10*3/uL Abs Immat Gran (auto) (0.00-0.03) X10*3/uL Absolute Neuts (auto) (2.0-8.3) x10*3/uL Absolute Nucleated RBC (0.0-0.012) X10*3/uL Nucleated RBC % (auto) (0.0-0.2) /100WBC Hold Purple Top Hold Blue Top Sodium (135-145) mmol/L Potassium (3.3-5.1) mmol/L Chloride (96-108) mmol/L Carbon Dioxide (22-29) mmol/L Anion Gap (12-20) BUN (9-16) mg/dL Creatinine (0.5-1.4) mg/dL Estim Creat Clear Calc Estimated GFR POC Glucose (60-115) mg/dL Random Glucose (60-115) mg/dL Calcium (8.4-10.2) mg/dL Total Bilirubin (0.0-1.0) mg/dL Direct Bilirubin (0.0-0.5) mg/dL AST (5-37) U/L ALT (0-40) U/L Alkaline Phosphatase (39-117) U/L Total Protein (6.5-8.0) g/dL Albumin (3.5-5.0) g/dL Lipase (8-78) U/L Urine Color Yellow Urine Appearance Clear Urine pH >= 9.0 (5.0-9.0) Ur Specific Harris 1.020 (1.005-1.025) Urine Protein 30 (1+) H (Neg-Trace) mg/dL Urine Glucose (UA) Negative (Negative) mg/dL Urine Ketones Negative (Negative) mg/dL Urine Blood Negative (Negative) Urine Nitrite Negative (Negative) Ur Leukocyte Esterase Negative (Negative) Urine RBC 0-2 (0-2) /HPF Urine WBC 0-5 (0-5) /HPF Ur Squamous Epith Cells 0-2 (0-2) /HPF Urine Bacteria None Seen (None Seen) Hyaline Casts 0-2 (0-2) /LPF Urine Opiates Screen Not Detected (Not Detect) Ur Buprenorphine Scrn Not Detected (Not Detect) ng/mL Ur Oxycodone Screen Not Detected (Not Detect) ng/mL Urine Methadone Screen Not Detected (Not Detect) ng/mL Urine Fentanyl Screen Not Detected (Not Detect) Ur Barbiturates Screen Not Detected (Not Detect) Ur Phencyclidine Scrn Not Detected (Not Detect) Ur Amphetamines Screen Not Detected (Not Detect) U Benzodiazepines Scrn Not Detected (Not Detect) Urine Cocaine Screen Not Detected (Not Detect) U Marijuana (THC) Screen POSITIVE H (Not Detect) Influenza Type A (PCR) NEGATIVE (Negative) Influenza Type B (PCR) NEGATIVE (Negative) RSV RNA Qual (PCR) NEGATIVE (Negative) SARS-CoV-2 RNA (RT-PCR) NEGATIVE (Negative) Discharge Plan Discharge Clinical Impression: Abdominal pain, Excessive sweating Patient Disposition: Home, Self-Care Instructions: Abdominal Pain (ED) Additional Instructions: As discussed, you were seen in the emergency department for evaluation of multiple complaints of which she have stated has been ongoing for the past 2-3 years without new changes including abdominal pain, cough, excessive sweating. It is recommended that you seek follow-up with your primary care doctor in specialist. I understand that you had an appointment with your primary care doctor today this however was missed as you were in the emergency department. Testing today does not show any new infection or acute changes in your blood work that would suggest an alternative cause for your symptoms. please take all of your medications as prescribed including your methadone to prevent any withdrawal symptoms. Prescriptions: No Action Creon 36,000-114,000- 180,000 unit capsule,delayed release(DR/EC) 2 cap PO TID Qty: 90 2RF Rx Instructions: administer with meals and/or snacks sennosides [Natural Senna Laxative] 8.6 mg tablet 17.2 mg PO BEDTIME Qty: 180 1RF fluticasone furoate-vilanterol [Breo Ellipta] 200-25 mcg/dose blister with device 1 inh inhalation DAILY Qty: 60 2RF acetaminophen 650 mg tablet extended release 650 mg PO Q8H PRN (Reason: moderate pain) polyethylene glycol 3350 [Miralax] 17 gram/dose powder 17 g PO DAILY PRN (Reason: Constipation) methadone [Methadone Intensol] 10 mg/mL Concentrate 125 mg PO DAILY doxycycline hyclate 100 mg capsule 100 mg PO BID Qty: 13 0RF cefuroxime axetil 500 mg tablet 500 mg PO BID Qty: 13 0RF ondansetron HCl 4 mg tablet 4 mg PO Q8H PRN (Reason: nausea and vomiting) Qty: 10 0RF quetiapine 50 mg tablet 50 mg PO BID aspirin 81 mg tablet,delayed release (DR/EC) 81 mg PO DAILY albuterol sulfate [Ventolin HFA] 90 mcg/actuation HFA aerosol inhaler 2 puff inhalation Q4H PRN (Reason: wheezing) bupropion HCl 150 mg tablet extended release 24 hr 150 mg PO DAILY mirtazapine 15 mg tablet 15 mg PO BEDTIME esomeprazole magnesium [Nexium] 40 mg capsule,delayed release(DR/EC) 40 mg PO DAILY Qty: 30 5RF famotidine 40 mg tablet 40 mg PO BEDTIME 90 Days Qty: 90 3RF magnesium oxide 400 mg magnesium capsule 400 mg PO BEDTIME Qty: 30 2RF Referrals: Physician,Unknown J [Primary Care Provider] - Print Language: Welsh
--- OUTSIDE RECORDS SUMMARY | 2024-06-15 16:43 | XMS_ITS | Encounter Summary ---
Author Organization [employer] Address [address] [facility] [address] [place] [address] Care Team Providers Care Loin Puller Name Role Phone Neetu Bah Primary Care Provider Roma Bender Primary Care Provider [phone] Neetu Bah Unavailable [phone] Lesia Tran MD Primary Care Provider + Encounter Details Date Type Department Care Team (Late st Contact Info) Description 09/29/2022 Abstract [facility] ADULT DENTAL [address] [place] [address] Trenton Wilkerson DDS [address] [place] [address] Social History Tobacco Use Types Packs/Day Years [...] Care Team (Late st Contact Info) Description 07/03/2024 10:00 AM EDT Office Visit [facility] [address] [place] [address] Trenton Wilkerson DDS [address] [place] [address] documented as of this encounter Visit Diagnoses Not on filedocumented in this encounter Care Teams Loin Puller Relationship Specialty Start Date End Date Neetu Bah AGNP [address] [place] [phone] PCP - General Family Medicine 11/28/20 01/13/23 Roma Bender FNP [address] [place] [address] PCP - General Family Medicine 01/14/23 12/06/23 Lesia Tran MD [address] [place] [address] PCP - General Internal Medicine 12/07/23 Neetu Bah AGNP [address] [place] [address] Family Medicine 01/14/23 09/02/23 documented as of this encounter
--- OUTSIDE RECORDS SUMMARY | 2024-06-15 16:43 | XMS_ITS | Encounter Summary ---
Author Organization [employer] Address [address] [facility] [address] [place] [address] Care Team Providers Care Day Spa Manager Name Role Phone Lesia Tran MD Primary Care Provider + Reason for Visit * Reason Comments Pre-visit Planning SDOH screening negat swathi and tobacco screening positive Encounter Details Date Type Department Care Team (Late st Contact Info) Description 06/08/2024 Patient Outreach [facility] [address] [place] [address] Lesia Tran MD [address] [place] [address] Pre-visit Planning (SDOH screening negative and tobacco screening positive) Social History Tobacco Use Types Packs/Day Years [...] as of this encounter Progress Notes * Herlinda Marquez - 06/08/2024 9:59 AM EST CC Herlinda placed successful outbound call to patient for pre-visit planning. Patient name and confirmed. Patient confirms appt date and time, and has transportation. Biggest concern for appointment at this time is none Patient advised to bring to appointment a photo id and insurance card. Appropriate screenings completed in anticipation of appointment. documented in this encounter Plan of Treatment Upcoming Encounters Date Type Department Care Team (Late st Contact Info) Description 07/03/2024 10:00 AM EDT Office Visit [facility] ADULT DENTAL [address] [place] [address] Trenton Wilkerson DDS [address] [place] [address] documented as of this encounter Visit Diagnoses Not on filedocumented in this encounter Additional Health Concerns Assessment Noted Time PHQ-9 Depression Total Score: 21 024 2:23 PM EST documented as of this encounter Care Teams Day Spa Manager Relationship Specialty Start Date End Date Lesia Tran MD [address] [place] [id number] PCP - General Internal Medicine 12/07/23 documented as of this encounter
--- OUTSIDE RECORDS SUMMARY | 2024-06-15 16:43 | XMS_ITS | Encounter Summary ---
Author Organization [employer] Address [address] [place] [address] Care Team Providers Care Crusher Loader Equipment Operator Name Role Phone Lesia Tran MD [...] Description 07/03/2024 10:00 AM EDT Office Visit [facility] ADULT [facility] [address] [place], [place] [phone] Trenton Wilkerson DDS [address] [place], [place] [phone] documented as of this encounter Procedures Procedure Name Priority Date/Time Associated Diagnosis Comments IMMUNOGLOBULIN G SUBCLASSES PANEL Routine 05/15/2024 3:30 PM EST IMMUNOGLOBULINS, QUANTITATIVE, IGA, IGG, IGM Routine 05/15/2024 3:30 PM EST documented in this encounter Results * (ABNORMAL) Immunoglobulin G Subclasses Panel (05/15/2024 3:30 PM EST) IgG Subclass 1 702 382 - 929 mg/dL [facility] IgG Subclass 2 304 241 - 700 mg/dL [facility] IgG Subclass 3 37 22 - 178 mg/dL [facility] IgG Subclass 4 92.2(A) 4 - 86 mg/dL [facility] Immunoglobulin G, Serum 1172 600 - 1640 mg/dL [facility] Comment:THIS TEST WAS PERFOR MED AT:[facility] [place] [id number] AMAYA MD 05/15/2024 3:30 PM EST 05/15/2024 3:30 PM EST us Generic External Data Provider LAB BLOOD ORDERAB LES Final Result Performing Organization Address [facility] de Phone Number [facility] [address] [place] [phone] * (ABNORMAL) Immunoglobulins, Quantitative, IgA, IgG, IgM (05/15/2024 3:30 PM EST) IMMUNOGLOBULIN G 1274 600 - 1640 mg/dL [facility] IMMUNOGLOBULIN A 542(A) 47 - 310 mg/dL [facility] Immunoglobulin M 277 50 - 300 mg/dL [facility] Comment:THIS TEST WAS PERFOR MED AT:[facility] [place] [id number] AMAYA MD 05/15/2024 3:30 PM EST 05/15/2024 3:30 PM EST us Generic External Data Provider LAB BLOOD ORDERAB LES Final Result Performing Organization Address [facility] de Phone Number [facility] [address] [place] [phone] documented in this encounter Visit Diagnoses Not on filedocumented in this encounter Additional Health Concerns Assessment Noted Time PHQ-9 Depression Total Score: 21 03/2 024 2:23 PM EST documented as of this encounter Care Teams Crusher Loader Equipment Operator Relationship Specialty Start Date End Date Lesia Tran MD [address] [place] [phone] PCP - General Internal Medicine 12/07/23 documented as of this encounter
--- OUTSIDE RECORDS SUMMARY | 2024-06-15 16:43 | XMS_ITS | Encounter Summary ---
Author Organization [employer] Address [address] [place] [address] Care Team Providers Care Manager New Product Name Role Phone Lesia Tran MD Primary [...] Description 07/03/2024 10:00 AM EDT Office Visit [facility] ADULT DENTAL [address] [place] [address] Trenton Wilkerson DDS [address] [place], [place] [phone] documented as of this encounter Visit Diagnoses Not on filedocumented in this encounter Additional Health Concerns Assessment Noted Time PHQ-9 Depression Total Score: 21 024 2:23 PM EST documented as of this encounter Care Teams Manager New Product Relationship Specialty Start Date End Date Lesia Tran MD [address] [place] [address] PCP - General Internal Medicine 12/07/23 documented as of this encounter
--- OUTSIDE RECORDS SUMMARY | 2024-06-15 16:43 | XMS_ITS | Encounter Summary ---
Author Organization [employer] Address [address] [facility] 7t [place] [address] Care Team Providers Care Aerophysicist Name Role Phone Neetu Bah Primary Care Provider Roma Bender Primary Care Provider [phone] Neetu Bah Unavailable [phone] Lesia Tran MD Primary Care Provider + Encounter Details Date Type Department Care Team (Late st Contact Info) Description 09/28/2022 Abstract [facility] ADULT DENTAL [address] [place] [address] Trenton Wilkerson DDS [address] [place] [address] Social History Tobacco Use Types Packs/Day Years [...] Description 07/03/2024 10:00 AM EDT Office Visit [facility]ULT [facility] [address] [place] [address] Trenton Wilkerson DDS [address] [place] [address] documented as of this encounter Visit Diagnoses Not on filedocumented in this encounter Care Teams Aerophysicist Relationship Specialty Start Date End Date Neetu Bah AGNP [address] [place] [phone] PCP - General Family Medicine 11/28/20 01/13/23 Roma Bender FNP [address] [place] [address] PCP - General Family Medicine 01/14/23 12/06/23 Lesia Tran MD [address] [place] [address] PCP - General Internal Medicine 12/07/23 Neetu Bah AGNP [address] [place] [phone] Family Medicine 01/14/23 09/02/23 documented as of this encounter
--- OUTSIDE RECORDS SUMMARY | 2024-06-15 16:43 | XMS_ITS | Encounter Summary ---
Author Organization [employer] Address [address] [facility] [place] [address] Care Team Providers Care Manufacturing Maintenance Manager Name Role Phone Lesia Tran MD Primary Care Provider + Encounter Details Date Type Department Care Team (Latest Contact Info) Description 06/08/2024 Travel Social History Tobacco Use Types Packs/Day [...] Description 07/03/2024 10:00 AM EDT Office Visit [facility] ADULT DENTAL [address] [place] [address] Trenton Wilkerson DDS [address] [place], [place] [phone] documented as of this encounter Visit Diagnoses Not on filedocumented in this encounter Additional Health Concerns Assessment Noted Time PHQ-9 Depression Total Score: 21 024 2:23 PM EST documented as of this encounter Care Teams Manufacturing Maintenance Manager Relationship Specialty Start Date End Date Lesia Tran MD [address] [place] [address] PCP - General Internal Medicine 12/07/23 documented as of this encounter
--- OUTSIDE RECORDS SUMMARY | 2024-06-15 16:43 | XMS_ITS | Encounter Summary ---
Author Organization [employer] Address [address] [place] [address] [address] [place] [address] Care Team Providers Care Sales Service Professional Name Role Phone Lesia Tran MD Primary Care Provider + Reason for Visit * Reason Comments Dentures Encounter Details Date Type Department Care Team (Late st Contact Info) Description 06/02/2024 10:00 AM EST Office Visit [facility] ADULT DENTAL [address] [place] [address] Trenton Wilkerson, DDS [address] [place] [address] Complete edentulism, unspecified edentulism class (Primary Dx) [...] upper and full lower Bite reg) Location: [facility] Tooth: Maxilla and Mandible Procedure: Dentures Verified the above with patient, boiler assistant operator, and provider. Confirmed via patient's chart, intraorally and by radiographs. Risk Consulting Treasury Director: not applicable Chief Complaint Patient presents with [...] provider: Trenton Wilkerson DDS Billing provider: Trenton Wlikerson DDS Occlusal Wax rims tried in & records taken: -Vertical Dimension -Midline -Interpupillary line -Occlusal Relationship -Smile Line -Canine [place] Bite Registration taken with: Wax Tooth Selection: Viola Mata Mould: Shade: A 2 Size: Sent to Lab for tooth set up in wax Lab used: [facility] Due Date: 06-16-24 Patient discharged alert, oriented, and in stable condition. NV: Wax try in Remotely Operated Vehicle: Estefany Putnam Dentist: Trenton Wilkerson DDS documented in this encounter Plan of Treatment Upcoming Encounters Date Type Department Care Team (Late st Contact Info) Description 07/03/2024 10:00 AM EDT Office Visit [facility] ADULT DENTAL [address] [place] [address] Trenton Wilkerson DDS [address] [place] [address] documented as of this encounter Procedures Procedure Name Priority Date/Time Associated Diagnosis Comments BITE REGISTRATION Routine 06/02/2024 10:00 AM EST documented in this encounter Visit Diagnoses Diagnosis Complete edentulism, unspecified edentulism class- Primary documented in this encounter Additional Health Concerns Assessment Noted Time PHQ-9 Depression Total Score: 21 024 2:23 PM EST documented as of this encounter Care Teams Sales Service Professional Relationship Specialty Start Date End Date Lesia Tran MD [address] [place] [address] PCP - General Internal Medicine 12/07/23 documented as of this encounter
--- OUTSIDE RECORDS SUMMARY | 2024-06-15 16:43 | XMS_ITS | Encounter Summary ---
Author Organization [employer] Address [address] [facility] 7t [place] [address] Care Team Providers Care Signal Manager Name Role Phone Lesia Tran MD Primary Care Provider + Reason for Visit * Reason Onset Date Comments Results 05/19/2024 Encounter Details Date Type Department Care Team ([facility] st Contact Info) Description 05/19/2024 Telephone [facility] [address] [place] [address] Lesia Tran MD [address] [place] [address] Results Social History Tobacco Use Types Packs/Day [...] 1:42 PM EST TC placed to patient [phone], patient advised BW was ordered by [facility] pulmonology (Dr. Davis). Patient advised to call [facility] pulmonology office to obtain results. During call [...] Lab Date when done: 05/15/24 Facility: [facility] Contact pt at [phone] documented in this encounter Plan of Treatment Upcoming Encounters Date Type Department Care Team ([facility] st Contact Info) Description 07/03/2024 10:00 AM EDT Office Visit [facility] ADULT DENTAL [address] [place] [address] Trenton Wilkerson DDS [address] [place] [address] documented as of this encounter Visit Diagnoses Not on filedocumented in this encounter Additional Health Concerns Assessment Noted Time PHQ-9 Depression Total Score: 21 024 2:23 PM EST documented as of this encounter Care Teams Signal Manager Relationship Specialty Start Date End Date Lesia Tran MD [address] [place] [address] PCP - General Internal Medicine 12/07/23 documented as of this encounter
--- OUTSIDE RECORDS SUMMARY | 2024-06-15 16:43 | XMS_ITS | Encounter Summary ---
Author Organization [employer] Address [address] [place] [address] 7t [place] [address] Care Team Providers Care Farm Helper Name Role Phone Neetu Bah Primary Care Provider Rmoa Bender Primary Care Provider [phone] Neetu Bah Unavailable [phone] Lesia Tran MD Primary Care Provider + Reason for Visit * Reason Onset Date Comments New Patient 11/18/2022 Encounter Details Date Type Department Care Team (Late st Contact Info) Description 11/18/2022 Telephone [facility] [address] [place] [address] Koby Holland MD [address] [place], [place] [phone] New Patient Social History Tobacco Use Types [...] been transfer over to wait list for [facility]. EFFECTIVE SINCE 11/24/2022 * Telephone Encounter - Lisa Zarate Marianne - 11/18/2022 10:33 AM EDT Tc to Pt , informed that we do take insurance, but must call [employer] to change location. Once done, to please call back to facility at [phone] documented in this encounter Plan of Treatment Upcoming Encounters Date Type Department Care Team (Late st Contact Info) Description 07/03/2024 10:00 AM EDT Office Visit [facility] ADULT DENTAL [address] [place] [address] Trenton Wilkerson DDS [address] [place] [address] documented as of this encounter Visit Diagnoses Not on filedocumented in this encounter Care Teams Farm Helper Relationship Specialty Start Date End Date Neetu Bah AGNP [address] [place] [phone] PCP - General Family Medicine 11/28/20 01/13/23 Roma Bender FNP [address] [place] [address] PCP - General Family Medicine 01/14/23 12/06/23 Lesia Tran MD [address] [place] [address] PCP - General Internal Medicine 12/07/23 Neetu Bah AGNP [address] [place] [phone] Family Medicine 01/14/23 09/02/23 documented as of this encounter
--- OUTSIDE RECORDS SUMMARY | 2024-06-15 16:43 | XMS_ITS | Clinical Summary ---
Author Organization [employer] Address [address] [facility] 7[address] [place] [address] Care Team Providers Care Digital Solutions Architect Name Role Phone Lesia Tran MD Primary [...] apnea) 02/11/2024 Overview (02/11/2024): Sleep study at [facility]: moderate TYSON with nocturnal hypoxemia, <88% 24.1 minutes, lowest 77%. Assessment & Plan (02/11/2024 3:58 PM EST): [facility] Mild persistent asthma 02/11/2024 Assessment & Plan (02/11/2024 4:00 PM EST): Doing well on Breo, fu by [facility] Advised re weight reduction. Declined Influenza [...] Plan (02/11/2024 4:01 PM EST): FU by [facility], on Protonix, senna prn constipation Advised [...] ID: Yaniv is a 37 y.o. White [place]er choose not to disclose-identified cis- male (pronouns [...] for 2.5 years, currently on methadone at [facility], 128mg with a plan on taper [...] intervention , Patient to reach out to [facility] team as needed, and Patient to reach out to [facility] as needed Anxiety 06/10/2023 Overview (10/18/2023): Last Addressed Date: 10/26/2022 Assessment & Plan (02/11/2024 4:04 PM EST): Seen by MH provider at [facility], will bring meds at next appt. He [...] PM EST): Doing well on Methadone at [facility], has take home bottles Advised to decrease use of THC Encounters * This document contains information received from the source organization and may not represent a complete record from that organization. Date Type Department Care Team Description 06/15/[address] [address] Lesia Tran MD No Show 06/14/2024 Patient Outreach [address] [address] Lesia Tran MD Care Coordination ([facility] Jennifer Burgess telephone call outreach) 06/12/[address] [address] Lesia Tran MD Chart prep 06/08/2024 Travel 06/08/2024 Patient Outreach [address] [address] Lesia Tran MD Pre-visit Planning (SDOH screening negative and tobacco screening positive) 06/05/[address] [address] Lesia Tran MD Care Management ([facility]- chart review) 06/02/2024 10:00 AM EST Office Visit [facility] [address] [facility] [place] [place] [address] Trenton Wilkerson DDS Complete edentulism, unspecified edentulism class (Primary Dx) 05/29/2024 Travel 05/24/2024 Telephone [facility] [place] [place] [address] Lesia Tran MD Results 05/22/2024 Travel 05/19/2024 Telephone [facility] [place] [address] Lesia Tran MD Results 05/15/2024 Orders Only GENERIC EXTERNAL DATA DEPARTMENT Provider, Generic External Data 05/15/2024 Telephone [facility] [place] [place] [address] Lesia Tran MD Med Refill 05/12/2024 Telephone [facility] [place] [address] Bbobi Deal, RN Results: Chest CT 05/12/24 05/03/2024 10:00 AM EST Office Visit [facility] [address] [facility] [place] [place] [address] Trenton Wilkerson DDS Complete edentulism, unspecified edentulism class (Primary Dx) 04/30/2024 Travel 04/17/2024 Refill [facility] [place] [address] Lesia Tran MD 04/12/2024 2:30 PM EST Office Visit [facility] [address] [place] [address] Trenton Wilkerson DDS Complete edentulism, unspecified edentulism class (Primary Dx) 04/12/2024 Travel 04/11/2024 Travel 04/07/2024 Patient Outreach [facility] [place] [address] Lesia Tran MD Pre-visit Planning (SDOH screening completed on ) 03/30/[address] [address] Renata Méndez, RN Results from Last 3 Months Immunizations Name [...] 10:00 AM EDT Office Visit [facility] [address] [place] [address] Trenton Wilkerson DDS [address] [place] [address] Health Maintenance Due Date Last Done Comments Dental Prophylaxis 1987 Alcohol/Substance Use Screening 1999 Family Planning (PISQ) 06/23/2002 Pneumococcal Vaccine: Pediatrics (0 to 5 Years) and At-Risk Patients (6 to 49) Years) (1 of 2 - PCV) 06/23/2006 Dental X-Ray: Bitewings 02/21/2015 02/20/2014 COVID-19 Vaccine (3 - season) 2023 09/11/2020, 07/30/2020 Influenza Vaccine (#1) 2023 , 01/28/2022, 07/14/2021 Depression Monitoring (PHQ-9) 08/10/2024 02/11/2024, 06/10/2023 Dental Oral Exam 10/11/2024 04/12/2024, 02/20/2014 Depression Screening 02/10/2025 02/11/2024, 06/10/19 Tobacco Screening 06/02/2025 06/02/2024 SDOH Screening 06/08/2025 06/08/2024 Dental X-Ray: Full Mouth 04/13/2027 025, 12/01/2023, [...] Completed 11/02/1997, 0704/1992, 07/03/1989, Additional history exists Hepatitis A Vaccines Aged Out 07/19/2021 No long er eligible based on patient's age to complete this topic Hepatitis B Vaccines Completed 08/20/2021, 07/19/2021, 10/27/1999, [...] REGISTRATION Routine 06/02/2024 10: 00 AM EST DRUG MONITOR, PANEL 1, SCREEN, URINE Routine 06/02/2024 9:29 AM EST Anxiety IMMUNOGLOBULIN G SUBCLASSES PANEL Routine 05/15/2024 3:30 [...] RADIOGRAPHIC IMAGE Routine 04/12/2024 2:30 PM EST LIPID PANEL, STANDARD Routine 06/08/2023 8:20 AM EST Class 3 severe obesity due to excess calories without serious comorbidity in adult, unspecified BMI (CMS/HCC) INTRAORAL - COMPLETE SERIES OF RADIOGRAPHIC IMAGES Routine 02/20/2014 12:00 AM EST from Last 3 Months or Most Recently Relevant to Health Maintenance Results * (ABNORMAL) Drug Monitoring, Panel 1, Screen, Urine (06/02/2024 9:29 AM EST) Opiate Screen Urine Not Detected Not Detect [facility] Comment:Opiate cut-off is 30 0 ng/mL.Positive results are unconfirmed and should not be used fornon-medical purposes. Barbiturates, Urine Not Detected Not Detect [facility] Comment:Barbiturate cut-off is 200 ng/mL.Positive results are unconfirmed and should not be used fornon-medical purposes. Phencyclidine Screen Urine Not Detected Not Detect [facility] Comment:Phencyclidine cut-of f is 25 ng/mL.Positive results are unconfirmed and should not be used fornon-medical purposes. Amphetamine Screen Urine Not Detected Not Detect [facility] Comment:Amphetamine cut-off is 1000 ng/mL.Positive results are unconfirmed and should not be used fornon-medical purposes. Benzodiazepines Screen Urine Not Detected Not Detect [facility] Comment:Benzodiazepine cut-o ff is 200 ng/mL.Positive results are unconfirmed and should not be used fornon-medical purposes. Cocaine Screen Urine Not Detected Not Detect [facility] Comment:Cocaine cut-off is 3 00 ng/mL.Positive results are unconfirmed and should not be used fornon-medical purposes. Cannabinoid Screen Urine POSITIVE(A) Not Detect [facility] Comment:Cannabinoid cut-off is 50 ng/mL.Positive results are unconfirmed and should not be used fornon-medical purposes. Methadone Screen, Urine Positive(A) Not Detect ng/mL [facility] Comment:Methadone cut-off is 300 ng/mL.Positive results are unconfirmed and should not be used fornon-medical purposes. FENTANYL URINE Not Detected Not Detect [facility] Comment:Fentanyl cut-off is 1 ng/mL.Positive results are unconfirmed and should not be used fornon-medical purposes. Oxycodone Urine Screen Not Detected Not Detect ng/mL [facility] Comment:Oxycodone cut-off is 100 ng/mL.Positive results are unconfirmed and should not be used fornon-medical purposes. Buprenorphine Screen Not Detected Not Detect ng/mL [facility] Comment:Buprenorphine cut-of f is 5 ng/mL.Positive results are unconfirmed and should not be used fornon-medical purposes. Urine (Urine, Random) 06/02/2024 9:29 AM EST 06/02/2024 10:52 AM EST Curtis Chavez PMP LAB URINE ORDERABLES Final Re sult [facility] [address] [place] [address] [phone] * (ABNORMAL) Immunoglobulin G Subclasses Panel (05/15/2024 3:30 PM EST) IgG Subclass 1 702 382 - 929 mg/dL [facility] IgG Subclass 2 304 241 - 700 mg/dL [facility] IgG Subclass 3 37 22 - 178 mg/dL [facility] IgG Subclass 4 92.2(A) 4 - 86 mg/dL [facility] Immunoglobulin G, Serum 1172 600 - 1640 mg/dL [facility] Comment:THIS TEST WAS PERFOR MED AT:[facility] [address] [phone] AMAYA MD 05/15/2024 3:30 PM EST 05/15/2024 3:30 PM EST Generic External Data Provider LAB BLOOD ORDERAB LES Final Result Performing Organization Address [facility] Co de Phone Number [facility] [address] [place] [phone] * (ABNORMAL) Immunoglobulins, Quantitative, IgA, IgG, IgM (05/15/2024 3:30 PM EST) IMMUNOGLOBULIN G 1274 600 - 1640 mg/dL [facility] IMMUNOGLOBULIN A 542(A) 47 - 310 mg/dL [facility] Immunoglobulin M 277 50 - 300 mg/dL [facility] Comment:THIS TEST WAS PERFOR MED AT:[facility] [address] [phone] AMAYA MD 05/15/2024 3:30 PM EST 05/15/2024 3:30 PM EST Generic External Data Provider LAB BLOOD ORDERAB LES Final Result Performing Organization Address [facility] Co de Phone Number [facility] [address] [place] [phone] * CT Chest w/o Contrast (05/12/2024 9:03 AM EST) Anatomical Region Laterality Modality Body, Chest Computed Tomogra phy 05/12/2024 9:03 AM EST Narrative 05/12/2024 9:54 AM EST ? [facility] ?[address] ?[place] [address] ? CT Scan Report ? Signed ? Patient: Matt,Yaniv Jordan ?MR#: [id number] ? : 1985 ?Acct:[id number] ? Age/Sex: 38 / M ?ADM Date: 05/12/24 ? Loc: HO.CT ? Attending Dr: Samantha Davis PASSENGER BOOKING CLERK ? Ordering Physician: Samantha Davis NP ?? Date of Service: 05/12/24 ?? Procedure(s): CT chest wo IV con ?? Accession Number(s): [id number] ? cc: Roma Bender NP; Samantha Davis NP ? Report Number: ?? [id number]: Total DLP = ??307.00 mGy-cm ?? EXAMINATION: [...] DLP: 307 mGy centimeter. ? FINDINGS: ? BAR MACHINE OPERATOR MULTIPLE SPINDLE: Large body habitus. No hyperinflation. ? LUNGS: [...] ? Signed By: ?<Electronically signed by Tyrese Sanhcez MD in OV> ? 05/12/24 0951 ? DD/ 0903 ? TD/TT: 05/12/24 0928 ? Histology Tech: ? Procedure Note Donlindater, Image - 05/12/[address] [place] [address] [address] Scan Report Signed Patient: Yaniv Gutierrez R#: [id number] : 1985Acct:[id number] Age/Sex: 38 / MADM Date: 05/12/24 Loc: .CT Attending Dr: Samantha Davis PASSENGER BOOKING CLERK Ordering Physician: Samantha Davis NP Date of Service: 05/12/24 Procedure(s): CT chest wo IV con Accession Number(s): [id number] cc: Roma Bender NP; Samantha Davis NP Report Number: [id number]: Total DLP = 307.00 mGy-cm EXAMINATION: CT [...] reconstruction technique. DLP: 307 mGy centimeter. FINDINGS: BAR MACHINE OPERATOR MULTIPLE SPINDLE: Large body habitus. No hyperinflation. LUNGS: Small [...] <Electronically signed by Tyrese Sanchez MDin OV> 05/12/24 0951 DD/ 0903 TD/TT: 05/12/24 09 Histology Tech: [facility] External Provider IMG CT PROCEDURES Final Result * (ABNORMAL) Lipid Panel, Standard (06/08/2023 8:20 AM EST) Triglycerides 236(H) <150 mg/dL [facility] Comment:Desirable Triglyceri de: less than 150 mg/dLBorderline High Triglyceride 150-199 mg/dLHigh Triglyceride: 200-499 mg/dLVery High Triglyceride: greater than or equal to 5OO mg/dL Cholesterol 137 <200 mg/dL [facility] Comment:Desirable Cholestero l: less than 200 mg/dLBorderline High Cholesterol: 200-239 mg/dLHigh Cholesterol: greater than 239 mg/dL LDL Cholesterol Calculated 57 <100 mg/dL [facility] Comment:Desirable LDL: less than 100 mg/dLNear Optimal/Above Optimal LDL: 110- 129 mg/dLBorderline High LDL: 130-159 mg/dLHigh LDL: 160-189 mg/dLVery High LDL: greater than or equal to 190 mg/dL HDL Cholesterol 33(L) >40 mg/dL [facility] Comment:Desirable HDL: great er than 40 mg/dL Note: This HDL assay may give artificially low results in patients with liver disease. Blood Venous blood specimen / Unknown 06/08/2023 8:20 AM EST 06/08/2023 11:33 AM EST Yesica Ibarra MD LAB BLOOD ORDERAB LES Final Result [facility] [address] [place] [phone] [phone] from Last 3 Months or Most Recently Relevant to Health Maintenance Insurance [facility] C3 [place]SN [place] STAND ADULT Care Teams Digital Solutions Architect Relationship Specialty Start Date End Date Lesia Tran MD [address] [place] [address] PCP - General Internal Medicine 12/07/23
--- OUTSIDE RECORDS SUMMARY | 2024-06-15 16:43 | XMS_ITS | Encounter Summary ---
Author Organization [employer] Address [address] [facility] 7t [place] [address] Care Team Providers Care Restaurant Bartender Name Role Phone Lesia Tran MD Primary Care Provider + Reason for Visit * Reason Onset Date Comments Med Refill 05/15/2024 Encounter Details Date Type Department Care Team (Late st Contact Info) Description 05/15/2024 Telephone [facility] [address] [place] [address] Lesia Tran MD [address] [place] [address] Med Refill Social History Tobacco Use Types [...] 9:47 AM EST Medication was sent to [id number] on 05/01/24 with 1 refill. * Telephone Encounter - Kenisha Mtz - 05/15/2024 9:43 AM EST TC from pt requesting medication refill. Medications needing refill : hydrOXYzine pamoate (Vistaril) 25 MG capsule To be sent to: [facility]/pharmacy #[id number] - [address] documented in this encounter Plan of Treatment Upcoming Encounters Date Type Department Care Team (Late st Contact Info) Description 07/03/2024 10:00 AM EDT Office Visit [facility] [address] [place] [address] Trenton Wilkerson DDS [address] [place], [place] [phone] documented as of this encounter Visit Diagnoses Not on filedocumented in this encounter Additional Health Concerns Assessment Noted Time PHQ-9 Depression Total Score: 21 024 2:23 PM EST documented as of this encounter Care Teams Restaurant Bartender Relationship Specialty Start Date End Date Lesia Tran MD [address] [place] [address] PCP - General Internal Medicine 12/07/23 documented as of this encounter
--- OUTSIDE RECORDS SUMMARY | 2024-06-15 16:43 | XMS_ITS | Encounter Summary ---
Author Organization [employer] Address [address] [facility] [address] 7t [place] [address] Care Team Providers Care Filter Press Supervisor Name Role Phone Lesia Tran MD Primary [...] Description 07/03/2024 10:00 AM EDT Office Visit [facility] ADULT DENTAL [address] [place] [address] Trenton Wilkerson DDS [address] [place], [place] [phone] documented as of this encounter Visit Diagnoses Not on filedocumented in this encounter Additional Health Concerns Assessment Noted Time PHQ-9 Depression Total Score: 21 024 2:23 PM EST documented as of this encounter Care Teams Filter Press Supervisor Relationship Specialty Start Date End Date Lesia Tran MD [address] [place] [address] PCP - General Internal Medicine 12/07/23 documented as of this encounter
--- OUTSIDE RECORDS SUMMARY | 2024-06-15 16:43 | XMS_ITS | Clinical Summary ---
Author Organization [facility] Address [address] [place] [address] Phone Care Team Providers Care Power Equipment Technology Instructor Name Role Phone Az Terrell Primary Care Provider [phone] Immunizations Immunization Administration Dates Next Due DTP [...] age to complete this topic Care Teams Power Equipment Technology Instructor Relationship Specialty Start Date End Date Az Terrell [address] [place] [phone] PCP - General 11/13/16
--- OUTSIDE RECORDS SUMMARY | 2024-06-15 16:43 | XMS_ITS | Encounter Summary ---
Author Organization [employer] Address [address] [facility] 7t [place] [address] Care Team Providers Care Furnace Checker Name Role Phone Lesia Tran MD Primary Care Provider + Reason for Visit * Reason Onset Date Comments Care Management 06/05/2024 [facility]- chart revi ew Encounter Details Date Type Department Care Team (Late st Contact Info) Description 06/05/[address] [facility] MED[facility] [address] [place] [address] Lesia Tran MD [address] [place] [address] Care Management ([facility]- chart review) Social History Tobacco Use Types Packs/Day Years [...] encounter Miscellaneous Notes * Telephone Encounter - Carlos Muñiz RN - 06/05/2024 9:55 AM EST CM Carlos Muñiz RN, performed chart review, in anticipation of initial assessment with patient, aspatient has stratified for [facility] Adult Complex Care through [facility] referral. 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 Specialists include psychiatry, behavioral health, sleep medicine, cardiology, [facility] pulmonology, [facility] dental, [facility] GI, . ED visits within the last 12 months include [facility] 03/11/24-03/14/24, [facility] 01/05/24, [facility] 11/21/23, [facility] 09/17/23. Last appointment in PCP office on 02/11/24. Next appointment scheduled for 06/15/24. documented in this encounter Plan of Treatment Upcoming Encounters Date Type Department Care Team (Late st Contact Info) Description 07/03/2024 10:00 AM EDT Office Visit [facility] ADULT DENTAL [address] [place], [place] [phone] Trenton Wilkerson DDS [address] [place], [place] [phone] documented as of this encounter Visit Diagnoses Not on filedocumented in this encounter Additional Health Concerns Assessment Noted Time PHQ-9 Depression Total Score: 21 024 2:23 PM EST documented as of this encounter Care Teams Furnace Checker Relationship Specialty Start Date End Date Lesia Tran MD [address] [place], [place] [phone] PCP - General Internal Medicine 12/07/23 documented as of this encounter
--- OUTSIDE RECORDS SUMMARY | 2024-06-15 16:43 | XMS_ITS | Encounter Summary ---
Author Organization [employer] Address [address] [facility] [address] [place] [address] Care Team Providers Care Desktop Support Manager Name Role Phone Roma Bender Primary Care Provider [phone] Neetu Bah Unavailable [phone] Lesia Tran MD Primary Care Provider + Encounter Details Date Type Department Care Team (Late st Contact Info) Description 02/19/2023 Orders Only [facility] [address] [place] [address] Roma Bender FNP [address] [place] [address] Other acute gastritis, presence of bleeding unspecified [...] Description 07/03/2024 10:00 AM EDT Office Visit [facility] ADULT DENTAL [address] [place] [address] Trenton Wilkerson DDS [address] [place] [address] documented as of this encounter Visit Diagnoses Diagnosis Other acute gastritis, presence of bleeding unspecified- Primary documented in this encounter Additional Health Concerns Assessment Noted Time PHQ-9 Depression Total Score: 11 023 3:14 PM EDT documented as of this encounter Care Teams Desktop Support Manager Relationship Specialty Start Date End Date Roma Bender FNP [address] [place] [address] PCP - General Family Medicine 01/14/23 12/06/23 Lesia Tran MD [address] [place] [address] PCP - General Internal Medicine 12/07/23 Neetu Bah AGNP [address] [place] [phone] Family Medicine 01/14/23 09/02/23 documented as of this encounter
--- OUTSIDE RECORDS SUMMARY | 2024-06-15 16:43 | XMS_ITS | Encounter Summary ---
Author Organization [employer] Address [address] [facility] 7t [place] [address] Care Team Providers Care General Manager In Training Name Role Phone Neetu Bah Primary Care Provider Roma Bender Primary Care Provider [phone] Neetu Bah Unavailable [phone] Lesia Tran MD Primary Care Provider + Encounter Details Date Type Department Care Team (Late st Contact Info) Description 09/29/2022 Abstract [facility] AD[facility] [address] [place] [address] Trenton Wilkerson DDS [address] [place] [address] Social History Tobacco Use Types Packs/Day Years [...] 10:00 AM EDT Office Visit [facility] [address] [place] [address] Trenton Wilkerson DDS [address] [place] [address] documented as of this encounter Visit Diagnoses Not on filedocumented in this encounter Care Teams General Manager In Training Relationship Specialty Start Date End Date Neetu Bah AGNP [address] [place] [phone] PCP - General Family Medicine 11/28/20 01/13/23 Roma Bender FNP [address] [place] [address] PCP - General Family Medicine 01/14/23 12/06/23 Lesia Tran MD [address] [place] [address] PCP - General Internal Medicine 12/07/23 Neetu Bah AGNP [address] [place] [phone] Family Medicine 01/14/23 09/02/23 documented as of this encounter
--- OUTSIDE RECORDS SUMMARY | 2024-06-15 16:43 | XMS_ITS | Encounter Summary ---
Author Organization [employer] Address [address] [facility] 7t [place] [address] Care Team Providers Care Medical Biller Coder Name Role Phone eLsia Tran MD Primary Care Provider + Reason for Visit * Reason Onset Date Comments Chart prep 06/12/2024 Encounter Details Date Type Department Care Team (Late st Contact Info) Description 06/12/2024 Telephone [facility] [address] [place] [address] Lesia Tran MD [address] [place] [address] Chart prep Social History Tobacco Use Types Packs/Day Years [...] Telephone Encounter - Nahomy Velazco [place] - 06/12/2024 1:47 PM EDT Chart Prep Labs: done Images: done Vaccines due: yes Referrals: complete Screenings: Up to date Overdue care gaps: Up to date documented in this encounter Plan of Treatment Upcoming Encounters Date Type Department Care Team (Late st Contact Info) Description 07/03/2024 10:00 AM EDT Office Visit [facility] ADULT D[facility] [address] [place] [address] Trenton Wilkerson DDS [address] [place] [address] documented as of this encounter Visit Diagnoses Not on filedocumented in this encounter Additional Health Concerns Assessment Noted Time PHQ-9 Depression Total Score: 21 024 2:23 PM EST documented as of this encounter Care Teams Medical Biller Coder Relationship Specialty Start Date End Date Lesia Tran MD [address] [place] [address] PCP - General Internal Medicine 12/07/23 documented as of this encounter
--- OUTSIDE RECORDS SUMMARY | 2024-06-15 16:43 | XMS_ITS | Encounter Summary ---
Author Organization [employer] Address 75 [facility] 7t [place] [address] Care Team Providers Care Shareholder Name Role Phone Lesia Tran MD Primary Care Provider + Reason for Visit * Reason Onset Date Comments No Show 06/15/2024 Encounter Details Date Type Department Care Team (Late st Contact Info) Description 06/15/2024 Telephone [facility] MEDICINE [address] [place] [address] Lesia Tran MD [address] [place] [address] No Show Social History Tobacco Use Types Packs/Day Years [...] encounter Miscellaneous Notes * Telephone Encounter - Kenisha Mtz - 06/15/2024 3:41 PM EDT Tc from pt to report he's at ER and that's why he didn't come. States he's swelling, burning sensation in the body and stomach pain. * Telephone Encounter - Jenifer Abarca - 06/15/2024 12:25 PM EDT Pt no showed to appt on 06/15/24 documented in this encounter Plan of Treatment Upcoming Encounters Date Type Department Care Team (Late st Contact Info) Description 07/03/2024 10:00 AM EDT Office Visit [facility] ADULT DENTAL [address] [place] [address] Trenton Wilkerson DDS [address] [place] [address] documented as of this encounter Visit Diagnoses Not on filedocumented in this encounter Additional Health Concerns Assessment Noted Time PHQ-9 Depression Total Score: 21 024 2:23 PM EST documented as of this encounter Care Teams Shareholder Relationship Specialty Start Date End Date Lesia Tran MD [address] [place] [id number] PCP - General Internal Medicine 12/07/23 documented as of this encounter
--- OUTSIDE RECORDS SUMMARY | 2024-06-15 16:43 | XMS_ITS | Encounter Summary ---
Author Organization [employer] Address 75 [facility] 7t [place] [address] Care Team Providers Care Solid Waste Collection Worker Name Role Phone Lesia Tran MD Primary Care Provider + Reason for Visit * Reason Comments Care Coordination [facility] Jennifer ndiaye telephone call outreach Encounter Details Date Type Department Care Team (Latest Contact Info) Description 06/14/2024 Patient Outreach [facility] MEDICINE [address] [place] [address] Lesia Tran MD [address] [place] [address] Care Coordination [facility] telephone call outreach) Social History Tobacco Use Types Packs/Day Years [...] as of this encounter Progress Notes * Jennifer Burgess - 06/14/2024 3:36 PM EDT CHW Jennifer Burgess, placed outbound call to patient introducing herself from [facility] CM Department, in regards to offering services. Patient's name and was confirmed. Patient agrees toparticipate in program. Appt. for initial assessment scheduled for 06/28/24@ 10:30AM. CHW reinforceddirect contact information or for any additional questions or concerns and extended clinic hours on Mondays and Wednesdays, and Walk-In Urgent Care Located in [facility] of [facility]. Patient provided with after-hours line for [facility], , which offer night time triage service and option to transfer to instructional support assistant provider if needed. Patient verbalizes understanding, and able to repeat back to keno writer. documented in this encounter Plan of Treatment Upcoming Encounters Date Type Department Care Team (Late st Contact Info) Description 07/03/2024 10:00 AM EDT Office Visit [facility] ADULT DENTAL [address] [place] [address] Trenton Wilkerson DDS [address] [place] [address] documented as of this encounter Visit Diagnoses Not on filedocumented in this encounter Additional Health Concerns Assessment Noted Time PHQ-9 Depression Total Score: 21 024 2:23 PM EST documented as of this encounter Care Teams Solid Waste Collection Worker Relationship Specialty Start Date End Date Lesia Tran MD [address] [place] [address] PCP - General Internal Medicine 12/07/23 documented as of this encounter
--- OUTSIDE RECORDS SUMMARY | 2024-06-15 16:43 | XMS_ITS | Encounter Summary ---
Author Organization [employer] Address 75 [facility] 7t [place] [address] Care Team Providers Care Telephone Ad Taker Name Role Phone Lesia Tran MD Primary Care Provider + Reason for Visit * Reason Onset Date Comments medication 02/02/2024 Encounter Details Date Type Department Care Team (Late st Contact Info) Description 02/02/2024 Telephone [facility] ADULT DENTAL [address] [place] [address] Trenton Wilkerson, BJS [address] [place] [address] medication Social History Tobacco Use Types Packs/Day [...] 07/03/2024 10:00 AM EDT Office Visit [facility] ADULT DENTAL [address] [place], [place] [phone] Trenton Wilkerson DDS [address] [place] [address] documented as of this encounter Visit Diagnoses Not on filedocumented in this encounter Additional Health Concerns Assessment Noted Time PHQ-9 Depression Total Score: 21 024 2:23 PM EST documented as of this encounter Care Teams Telephone Ad Taker Relationship Specialty Start Date End Date Lesia Tran MD [address] [place] [address] PCP - General Internal Medicine 12/07/23 documented as of this encounter
--- OUTSIDE RECORDS SUMMARY | 2024-06-15 16:43 | XMS_ITS | Encounter Summary ---
Author Organization [employer] Address 75 [facility] 7t [place] [address] Care Team Providers Care Kaiwhakahaere Name Role Phone Roma Bender Primary Care Provider [phone] Neetu Bah [facility] Un[facility] [phone] Lesia Tran MD Primary Care Provider + Reason for Visit * Reason Onset Date Comments Medication Question 05/04/2023 Encounter Details Date Type Department Care Team (Late st Contact Info) Description 05/04/2023 Telephone [facility] MEDICINE [address] [place] [address] Roma Bender FNP [address] [place] [address] Medication Question Social History Tobacco Use Types [...] 50 MG tablet prescribed by pcp at [facility] today 05/04/23, was prescribed for 1 time daily but it was supposed to be 2 times daily. Any questions please contact [phone]. documented in this encounter Plan of Treatment Upcoming Encounters Date Type Department Care Team (Late st Contact Info) Description 07/03/2024 10:00 AM EDT Office Visit [facility] ADULT DENTAL [address] [place] [address] Trenton Wilkerson DDS [address] [place] [address] documented as of this encounter Visit Diagnoses Not on filedocumented in this encounter Additional Health Concerns Assessment Noted Time PHQ-9 Depression Total Score: 11 023 3:14 PM EDT documented as of this encounter Care Teams Kaiwhakahaere Relationship Specialty Start Date End Date Roma Bender FNP [address] [place] [address] PCP - General Family Medicine 01/14/23 12/06/23 Lesia Tran MD [address] [place] [address] PCP - General Internal Medicine 12/07/23 Neetu Bah AGNP [address] [place] [phone] Family Medicine 01/14/23 09/02/23 documented as of this encounter
--- OUTSIDE RECORDS SUMMARY | 2024-06-15 16:43 | XMS_ITS | Encounter Summary ---
Author Organization [employer] Address 75 [facility] 7t [place] [address] Care Team Providers Care Clerk Rating Name Role Phone Lesia Tran MD Primary Care Provider + Reason for Visit * Reason Onset Date Comments Results 05/24/2024 Encounter Details Date Type Department Care Team ([facility] st Contact Info) Description 05/24/2024 Telephone [facility] MEDICINE [address] [place] [address] Lesia Tran MD [address] [place] [address] Results Social History Tobacco Use Types Packs/Day [...] chest on 05/12/2024 ordered by Samantha Davis RESEARCH AGRICULTURAL ENGINEER, reviewed. Please call [email or web address] where she works and make sure that they had the results will schedule follow-up for patient if needed. documented in this encounter Plan of Treatment Upcoming Encounters Date Type Department Care Team (Late st Contact Info) Description 07/03/2024 10:00 AM EDT Office Visit [facility] ADULT DENTAL [address] [place] [address] Trenton Wilkerson DDS [address] [place], [place] [phone] documented as of this encounter Visit Diagnoses Not on filedocumented in this encounter Additional Health Concerns Assessment Noted Time PHQ-9 Depression Total Score: 21 024 2:23 PM EST documented as of this encounter Care Teams Clerk Rating Relationship Specialty Start Date End Date Lesia Tran MD [address] [place] [address] PCP - General Internal Medicine 12/07/23 documented as of this encounter
[2024-06-15] MEDS: iohexoL 350 MG/ML 100 ML INFUS..BTL IV (18:06)
[2024-06-15 18:10] VITALS: BP 117/72; PULSE 84; RESP 16; TEMP 36.1; O2SAT 96
[2024-06-15] MEDS: LORazepam 1 MG TABLET 2 MG PO (19:54)
[2024-06-15 20:22] VITALS: BP 133/81; PULSE 97; RESP 16; TEMP 36.7; O2SAT 95
== END 2024-06-15 20:23 | disposition home or self-care (01) ==
PROVIDERS: Emergency Provider Emergency Medicine
DX: R10.2 Pelvic and perineal pain (principal); R00.0 Tachycardia, unspecified; M54.50 Low back pain, unspecified; R42 Dizziness and giddiness; R61 Generalized hyperhidrosis; R11.2 Nausea with vomiting, unspecified; R05.9 Cough, unspecified; Z87.891 Personal history of nicotine dependence; Z79.891 Long term (current) use of opiate analgesic; Z03.818 Encounter for observation for suspected exposure to other biological agents ruled out; Z79.899 Other long term (current) drug therapy
CPT/HCPCS: 0241U; 36415; 71046; 71260; 80048; 80076; 80307; 81001; 82947; 83690; 85025; 93005; 96361; 96374; 99285; J2405; Q9967

== ENCOUNTER → 2024-06-15 13:37 | Outpatient (BNV) | payer MEDICAID, SELFPAY | PROVIDERS: Emergency Provider Emergency Medicine; Visit Provider Internal Medicine | DX: R00.0 Tachycardia, unspecified (principal); I21.19 ST elevation (STEMI) myocardial infarction involving other coronary artery of inferior wall | CPT/HCPCS: 93010 ==

== ENCOUNTER → 2024-06-15 14:49 | Outpatient (BNV) | payer MEDICAID, SELFPAY | PROVIDERS: Visit Provider Radiology Diagnostic Radiology | DX: K76.0 Fatty (change of) liver, not elsewhere classified (principal); R16.1 Splenomegaly, not elsewhere classified; R91.8 Other nonspecific abnormal finding of lung field | CPT/HCPCS: 71046; 71260 ==

== ENCOUNTER 2024-06-21 11:28 | Outpatient (AMB) | payer MEDICAID, SELFPAY ==
--- NOTE | 2024-06-21 11:43 | MHC.OFFVIS ---
Vital Signs 06/21/24 11:57 Height 5 ft 7 in Weight 287 lb 14.779 oz BMI 45.1 BP 130/78 Blood Pressure Location Rt brachial Position Sitting Pulse 88 Pulse Source Pulse Oximeter Pulse Oximetry (%) 96 Oxygen Delivery Method Room Air Intake Visit Reasons: Seen in ED, mgmt N+V, abd pain. Intake Note: ESTABLISHED PATIENT for mgmt of abd pain, N+V, seen in ED on 05/31 + 06/15. Did not fully complete MRI per developing illness/sx during testing. Chief Complaint; C/O N+V persistence, excessive sweating, cramping. Pt reports that these sx have been frequent but intermittent since being seen in the ED most recently. Pt does report however that his reflux is well controlled with esomeprazole. Traveling Inventory Associate Required: No Allergies Penicillins [PENICILLINS] Allergy (Unknown, Verified 06/15/24 13:00) RASH HPI HPI Seen in ED, mgmt N+V, abd pain.: Details: LAST VISIT: GERD (gastroesophageal reflux disease) Epigastric abdominal pain Constipation Hiatal hernia Exocrine pancreatic insufficiency Plan Patient will continue avoiding dietary triggers. Avoid late night snacking. Encouraged to chew slowly. Staying upright for minimum 3 hours after meals discussed with patient. MRI ordered to evaluate his pancreas and liver. Continue esomeprazole in the morning and famotidine at bedtime. Increase fluid intake and activity to promote better bowel motility. Again discussed with patient weight loss. Patient will follow-up in 3 months, sooner on as needed basis. He is agreeable to this plan and verbalizes understanding of instructions. He was given the opportunity to ask questions and all questions answered. ? Thank you for allowing me to participate in his care Orders Orders MR abdomen wo/w con 04/14/24 K86.81, K86.89 Medications New magnesium oxide 400 mg PO BEDTIME 30 caps 2RF K59.04 TODAY'S VISIT Patient is here today for visit following ED visit last week. Patient was diagnosed with pneumonia and was started on antibiotics. Patient reports that he is feeling better now. His symptoms included also beside shortness of breath abdominal pain, nausea, abdominal bloating, diarrhea. Since then patient reports that his symptoms subsided. Has a follow-up with his ethical hacker next month. Was unable to get the MRI finish as patient has severe anxiety and was unable to lay for longer period of time. Patient reports frequent cold sweats. Patient states that he is trying to decrease the amount of food that he eats. Sometimes patient is unable to do so as he is use to of eating large amount of meals and usually fast food meals. Patient reports that as omeprazole has been working for him. He also take famotidine at bedtime. Tries not to eat late at night. Still takes Creon with each meals. Denies any melena, hematochezia, unintentional weight loss or ribbon like stools. Patient reports that his PCP would like to start him on Zepbound to lose weight, however patient is unsure if he can take this. We have discussed this today that Zepbound is probably the safest for him to take and we can definitely monitor him. His lipase have been normal, pancreatic insufficiency, however that could of been falls negative test and we can repeat that. [facility] Medical History Exocrine pancreatic insufficiency Polysubstance abuse No known health problems Social History Household Members: Family [facility] Do you presently have visiting nurse or other home services: No Alcohol intake: former Patient Tobacco Use Status: Former Tobacco user Substance Use Type: Marijuana service: No Review of Systems Const Denies weight gain and Denies weight loss ENT Reports no additional complaints, Denies dysphagia and Denies odynophagia Card Reports no additional complaints Resp Reports no additional complaints GI Reports abdominal pain (Generalized), Denies belching, Denies melena, Reports bloating, Denies change in bowel habits, Reports constipation (Improved), Denies dysphagia, Denies excessive flatus, Denies dyspepsia, Reports heartburn (Improved), Denies diarrhea, Denies loose stools, Denies nausea, Denies odynophagia and Denies vomiting Reports no additional complaints Musc Reports no additional complaints Neuro Reports no additional complaints Psych Reports no additional complaints Endo Reports no additional complaints Physical Exam Vital Signs: Last Vital Signs Pulse 88 06/21/24 11:57 BP 130/78 06/21/24 11:57 Pulse Ox 96 06/21/24 11:57 Oxygen Delivery Method Room Air 06/21/24 11:57 BMI result Body Mass Index 45.1 Const General: cooperative, healthy appearing, comfortable and no acute distress Nutritional Appearance: obese Orientation/consciousness: patient oriented x3 Neck Neck: Yes normal visual inspection, Yes full ROM and Yes trachea midline Resp Effort & Inspection: normal respiratory effort, able to speak in complete sentences, no tracheal deviation and symmetric chest movement Auscultation: clear to auscultation bilaterally Cardio Rate: regular rate GI Inspection: Yes normal to inspection and No distended Palpation (GI): Soft to palpation, not firm, nontender and No hepatosplenomegaly present Auscultation: normal bowel sounds General: Yes no CVA tenderness Back/Spine/Pelvis Back: no CVA tenderness Skin General skin exam: elasticity normal, turgor normal and dry skin Neuro General: patient oriented x3 Psych Appearance: grossly normal Mental Status: mental status grossly normal Assessment & Plan Assessment & Plan (1) Exocrine pancreatic insufficiency: Code(s): K86.81 - Exocrine pancreatic insufficiency Category: Medical (2) GERD (gastroesophageal reflux disease): Code(s): K21.9 - Gastro-esophageal reflux disease without esophagitis Qualifiers: Esophagitis presence: esophagitis presence not specified Qualified Code(s): K21.9 - Gastro-esophageal reflux disease without esophagitis (3) Epigastric abdominal pain: Code(s): R10.13 - Epigastric pain (4) Constipation: Code(s): K59.00 - Constipation, unspecified Qualifiers: Constipation type: slow transit constipation Qualified Code(s): K59.01 - Slow transit constipation (5) Hiatal hernia: Code(s): K44.9 - Diaphragmatic hernia without obstruction or gangrene Plan Patient will continue taking esomeprazole in the morning and famotidine at bedtime. Avoid dietary triggers in late night snacking. Discussed with patient putting his food on small plates, avoid high fat, high salt and high carb diet more vegetables and protein. Avoid fast food restaurants. Will send him to see a dietitian so they can help meal plan. Patient can try Zepbound and we can monitor his lipase. We will repeat pancreatic the last days again as his bowels normalize. Patient will follow-up in 3 months, sooner on as needed basis. He is agreeable to this plan and verbalizes understanding of instructions. He was given the opportunity to ask questions and all questions answered. Thank you for allowing me to participate in his care Orders: Referrals Pressing Machine Operator Nutrition Referral E66.01 - Morbid (severe) obesity due to excess calories Coding Level of Care Code Est Pt Level 4 (42933) Complex EM visit Add On G2211 Diagnoses Exocrine pancreatic insufficiency K86.81 Gastroesophageal reflux disease, unspecified whether esophagitis present K21.9 Esophagitis presence: esophagitis presence not specified Epigastric abdominal pain R10.13 Slow transit constipation K59.01 Constipation type: slow transit constipation Hiatal hernia K44.9 Time Spent (min) 45 Comment 25 minute spent with patient and additional 20 minutes spent reviewing his records
[2024-06-21 11:57] VITALS: BP 130/78; PULSE 88; O2SAT 96; BMI 45.1
--- OUTSIDE RECORDS SUMMARY | 2024-06-21 14:07 | XMS_ITS | Encounter Summary ---
Author Organization [employer] Address [address] [facility] 7t [place] [address] Care Team Providers Care Manager Quality Improvement Name Role Phone Lesia Tran MD Primary Care Provider + Reason for Visit * Reason Onset Date Comments No Show 06/15/2024 Encounter Details Date Type Department Care Team (Late st Contact Info) Description 06/15/2024 Telephone [facility] MEDICINE [address] [place] [address] Lesia Tran MD [address] [place] [address] No Show Social History Tobacco Use Types [...] encounter Miscellaneous Notes * Telephone Encounter - Vanessa Bustamante RN - 06/16/2024 10:51 AM EDT Triaged in encounter today 06/16/24 * Telephone Encounter - Kenisha Mtz - [...] [facility] [address] [place], [place] [phone] Trenton Wilkerson DDS [address] [place], [place] [phone] 08/24/2024 9:00 AM EDT Office Visit [facility] MEDICINE [address] [place], [place] [phone] Lesia Tran MD [address] [place], [place] [phone] documented as of this encounter Visit Diagnoses Not on filedocumented in this encounter Additional Health Concerns Assessment Noted Time PHQ-9 Depression Total Score: 21 024 2:23 PM EST documented as of this encounter Care Teams Manager Quality Improvement Relationship Specialty Start Date End Date Lesia Tran MD [address] [place] [phone] PCP - General Internal Medicine 12/07/23 documented as of this encounter
--- OUTSIDE RECORDS SUMMARY | 2024-06-21 14:07 | XMS_ITS | Encounter Summary ---
Author Organization [employer] Address [address] [place] [address] 7t [place] [address] Care Team Providers Care Ice Grinder Name Role Phone Lesia Tran MD Primary Care Provider + Reason for Visit * Reason Comments Dentures Encounter Details Date Type Department Care Team (Late st Contact Info) Description 06/02/2024 10:00 AM EST Office Visit [facility] ADULT DENTAL [address] [place] [address] Trenton Wilkerson, DDS [address] [place] [address] Complete edentulism, unspecified edentulism class (Primary Dx) [...] upper and full lower Bite reg) Location: [facility] Tooth: Maxilla and Mandible Procedure: Dentures Verified the above with patient, assistant laboratory director, and provider. Confirmed via patient's chart, intraorally and by radiographs. Finance Lead: not applicable Chief Complaint Patient presents with [...] -Interpupillary line -Occlusal Relationship -Smile Line -Canine Annabella Bite Registration taken with: Wax Tooth Selection: Viola Mata Mould: Shade: A 2 Size: Sent to Lab for tooth set up in wax Lab used: [facility] Due Date: 06-16-24 Patient discharged alert, oriented, and in stable condition. NV: Wax try in Watch Leader: Estefany Putnam Dentist: Ternton Wilkerson DDS documented in this encounter Plan of Treatment Upcoming Encounters Date Type Department Care Team (Late st Contact Info) Description 07/03/2024 10:00 AM EDT Office Visit [facility] ADULT DENTAL [address] [place] [address] Trenton Wilkerson DDS [address] [place] [address] 08/24/2024 9:00 AM EDT Office Visit [facility] MEDICINE [address] [place] [address] Lesia Tran MD [address] [place] [address] documented as of this encounter Procedures Procedure Name Priority Date/Time Associated Diagnosis Comments BITE REGISTRATION Routine 06/02/2024 10:00 AM EST documented in this encounter Visit Diagnoses Diagnosis Complete edentulism, unspecified edentulism class- Primary documented in this encounter Additional Health Concerns Assessment Noted Time PHQ-9 Depression Total Score: 21 024 2:23 PM EST documented as of this encounter Care Teams Ice Grinder Relationship Specialty Start Date End Date Lesia Tran MD [address] [place] [phone] PCP - General Internal Medicine 12/07/23 documented as of this encounter
--- OUTSIDE RECORDS SUMMARY | 2024-06-21 14:07 | XMS_ITS | Encounter Summary ---
Author Organization [employer] Address [address] [facility] 7t [place] [address] Care Team Providers Care Mixed Crop And Livestock Farm Worker Name Role Phone Neetu Bah Primary Care Provider Roma Bender Primary Care Provider [phone] Neetu Bah Unavailable [phone] Lesia Tran MD Primary Care Provider + Encounter Details Date Type Department Care Team (Late st Contact Info) Description 09/28/2022 Abstract [facility] ADULT DENTAL [address] [place] [address] Trenton Wilkerson DDS [address] [place] [address] Social History Tobacco Use Types Packs/Day Years [...] Description 07/03/2024 10:00 AM EDT Office Visit [facility] ADULT DENTAL [address] [place] [address] Trenton Wilkerson DDS [address] [place] [address] 08/24/2024 9:00 AM EDT Office Visit [facility] MEDICINE [address] [place] [address] Lesia Tran MD [address] [place] [address] documented as of this encounter Visit Diagnoses Not on filedocumented in this encounter Care Teams Mixed Crop And Livestock Farm Worker Relationship Specialty Start Date End Date Neetu Bah AGNP [address] [place] [phone] PCP - General Family Medicine 11/28/20 01/13/23 Roma Bender FNP [address] [place] [address] PCP - General Family Medicine 01/14/23 12/06/23 Lesia Tran MD [address] [place] [phone] PCP - General Internal Medicine 12/07/23 Neetu Bah AGNP [address] [place] [phone] Family Medicine 01/14/23 09/02/23 documented as of this encounter
--- OUTSIDE RECORDS SUMMARY | 2024-06-21 14:07 | XMS_ITS | Encounter Summary ---
Author Organization [employer] Address [address] [facility] [address] [place] [address] Care Team Providers Care Direct Support Professional Home Health Name Role Phone Roma Bender Primary Care Provider [phone] Neetu Bah [facility] [phone] Lesia Tran MD Primary Care Provider + Reason for Visit * Reason Onset Date Comments Medication Question 05/04/2023 Encounter Details Date Type Department Care Team (Late st Contact Info) Description 05/04/2023 Telephone [facility] MEDICINE [address] [place] [address] Roma Bender FNP [address] [place] [address] Medication Question Social History Tobacco Use Types [...] 50 MG tablet prescribed by pcp at [facility] today 05/04/23, was prescribed for 1 time daily but it was supposed to be 2 times daily. Any questions please contact [phone]. documented in this encounter Plan of Treatment Upcoming Encounters Date Type Department Care Team (Late st Contact Info) Description 07/03/2024 10:00 AM EDT Office Visit [facility] ADULT DENTAL [address] [place] [address] Trenton Wilkerson DDS [address] [place] [address] 08/24/2024 9:00 AM EDT Office Visit [facility] MEDICINE [address] [place] [address] Lesia Tran MD [address] [place] [address] documented as of this encounter Visit Diagnoses Not on filedocumented in this encounter Additional Health Concerns Assessment Noted Time PHQ-9 Depression Total Score: 11 023 3:14 PM EDT documented as of this encounter Care Teams Direct Support Professional Home Health Relationship Specialty Start Date End Date Roma Bender FNP [address] [place] [address] PCP - General Family Medicine 01/14/23 12/06/23 Lesia Tran MD [address] [place] [address] PCP - General Internal Medicine 12/07/23 Neetu Bah AGNP [address] [place] [phone] Family Medicine 01/14/23 09/02/23 documented as of this encounter
--- OUTSIDE RECORDS SUMMARY | 2024-06-21 14:07 | XMS_ITS | Encounter Summary ---
Author Organization [employer] Address [address] [facility] [address] [place] [address] Care Team Providers Care Urogynaecologist Name Role Phone Lesia Tran MD Primary [...] 10:00 AM EDT Office Visit [facility] ADULT DENTAL [address] [place] [address] Trenton Wilkerson DDS [address] [place] [address] 08/24/2024 9:00 AM EDT Office Visit [facility] MEDICINE [address] [place] [address] Lesia Tran MD [address] [place] [address] documented as of this encounter Visit Diagnoses Not on filedocumented in this encounter Additional Health Concerns Assessment Noted Time PHQ-9 Depression Total Score: 21 024 2:23 PM EST documented as of this encounter Care Teams Urogynaecologist Relationship Specialty Start Date End Date Lesia Tran MD [address] [place] [id number] PCP - General Internal Medicine 12/07/23 documented as of this encounter
--- OUTSIDE RECORDS SUMMARY | 2024-06-21 14:07 | XMS_ITS | Encounter Summary ---
Author Organization [email or web address] Address [address] [place] [address] Care Team Providers Care [employer] Name Role Phone Lesia Tran MD Primary [...] [facility] [address] [place] [address] Trenton Wilkerson DDS [address] [place] [address] 08/24/2024 9:00 AM EDT Office Visit [facility] MEDICINE [address] [place] [address] Lesia Tran MD [address] [place] [address] documented as of this encounter Visit Diagnoses Not on filedocumented in this encounter Additional Health Concerns Assessment Noted Time PHQ-9 Depression Total Score: 21 024 2:23 PM EST documented as of this encounter Care Teams [employer] Relationship Specialty Start Date End Date Lesia Tran MD [address] [place] [id number] PCP - General Internal Medicine 12/07/23 documented as of this encounter
--- OUTSIDE RECORDS SUMMARY | 2024-06-21 14:07 | XMS_ITS | Encounter Summary ---
Author Organization [employer] Address [address] [place] [address] [address] [place] [address] Care Team Providers Care Windows Admin Name Role Phone Lesia Tran MD Primary Care Provider + Reason for Referral * Consultation (Routine) - Authorized Specialty Diagnoses / Procedures Referred By Contac t Referred To Contact Optometry Diagnoses IFG (impaired fasting glucose) Lesia Tran MD [address] [place] [phone] Phone: tel: fax: [facility] OPTOMETRY [address] [place] [phone] Phone: tel: fax: Referral ID Status Reason Start Date Expiration Date Visits Requested Visits Authorized [id number] Authorized Consult and Treat 06/20/2024 06/20/2025 1 1 Reason for Visit * Reason Comments Abdominal Pain Encounter Details Date Type Department Care Team (Late st Contact Info) Description 06/20/2024 11:30 AM EDT Office Visit [facility] MEDICINE [address] [place] [id number] Lesia Tran MD [address] [place] [address] Generalized anxiety disorder with panic attacks (Primary Dx); IFG (impaired fasting glucose); Morbid obesity (CMS/HCC); TYSON (obstructive sleep apnea); Hyperglycemia Social History Tobacco Use Types Packs/Day Years [...] Sign Reading Time Taken Comments Blood Pressure 137/82 06/20/2024 11:24 AM EDT Pulse 95 06/20/2024 11:24 AM EDT Temperature 36.9 ??C (98.5 ??F) 06/20/2024 11:24 AM E DT Respiratory Rate 16 06/20/2024 11:24 AM EDT Oxygen Saturation 93% 06/20/2024 11:24 AM EDT Inhaled Oxygen Concentration - - Weight 131 kg (289 lb 6 oz) 06/20/2024 11:24 AM EDT Height 170.2 cm (5' 7 ) 06/20/2024 11:24 AM EDT Body Mass Index 45.32 06/20/2024 11:24 AM EDT documented in this encounter Progress Notes * Lesia Tran MD - 06/20/2024 11:30 AM EDT SUBJECTIVE: Yaniv Gutierrez is a 38 y.o. year old male who presents for sick visit . Denies recent illness, injury, or hospitalization. Pt comes in as a sick visit with several concerns. He reports that his breathing has improved since he completed antibiotics, but continues with some SOB that improves with albuterol as needed. He vapes cannabis daily still, but has apparently cut down frequency. He says marijuana helps him with his symptoms of anxiety. He is taking methadone and denies taking any other recreational substances. He has been feeling very anxious and reports going to the ED on 05/30/24, after having episodes of tingling in his arms and feet, heart race increasing, sweating, chills and stomach pain. He says he was given Lorazepam, which resolved symptoms. He says he has a certain routine of things he has to do before he leaves his house. He has not beenworking. He has an appointment with his psychotherapist in the next week or two. He feels safe withhis mother. He is sometimes constipated, but reports going to the bathroom everyday recently. He reports the constipation improves with Miralax. He has a GI appointment tomorrow. He is concerned about diabetes as his brother and uncle have DM. His mother has thyroid issues. Is also concerned about forgetting things, needs to repeat the same sentences several times so he does not forget it. He needs to write things in different places even routine ones Acute Concerns: Social History Social History Narrative Lives with his mother on a second floor apartment. Patient Active Problem List Diagnosis Dental abscess Severe dental caries Periodontal disease Routine health maintenance Preop examination Severe episode of recurrent major depressive disorder, without psychotic features (CMS/HCC) Anxiety Alcohol use disorder in remission Cocaine use disorder in remission Chronic nasal congestion Acute low back pain with right-sided sciatica Dysphagia GERD without esophagitis Morbid obesity (CMS/HCC) Chronic dental pain TYSON (obstructive sleep apnea) Mild persistent asthma History of substance use disorder Complete edentulism IFG (impaired fasting glucose) Hyperglycemia Generalized anxiety disorder with panic attacks Family History Problem Relation Name Age of Onset Diabetes type II Maternal Grandmother Review of Systems Constitutional: Negative for fever. HENT: Negative for congestion, ear pain, rhinorrhea and sore throat. Eyes: Negative for pain and discharge. Respiratory: Negative for cough and shortness of breath. Cardiovascular: Negative for chest pain. Gastrointestinal: Positive for abdominal pain and nausea. Negative for constipation and diarrhea. Endocrine: Negative for polydipsia. Genitourinary: Negative for dysuria and frequency. Musculoskeletal: Negative for arthralgias, back pain and neck pain. Neurological: Negative for dizziness, numbness and headaches. Psychiatric/Behavioral: Positive for sleep disturbance. Negative for agitation. The patient is nervous/anxious. OBJECTIVE: Vitals: 06/20/24 1124 BP: 137/82 Pulse: 95 Resp: 16 Temp: 98.5 ??F (36.9 ??C) SpO2: 93% Physical Exam Constitutional: Appearance: Normal appearance. HENT: Right Ear: Tympanic membrane and ear canal normal. Left Ear: Tympanic membrane and ear canal normal. Mouth/Throat: Mouth: Mucous membranes are moist. Pharynx: No oropharyngeal exudate or posterior oropharyngeal erythema. Eyes: Pupils: Pupils are equal, round, and reactive to light. Cardiovascular: Rate and Rhythm: Normal rate and regular rhythm. Heart sounds: No murmur heard. Pulmonary: Breath sounds: Normal breath sounds. No wheezing. Abdominal: General: Bowel sounds are normal. Palpations: Abdomen is soft. Tenderness: There is no abdominal tenderness. Musculoskeletal: General: No tenderness. Normal range of motion. Cervical back: Normal range of motion. No tenderness. Skin: General: Skin is warm. Neurological: General: No focal deficit present. Mental Status: He is alert and oriented to person, place, and time. Cranial Nerves: Cranial nerves 2-12 are intact. Motor: Motor function is intact. Gait: Gait is intact. Psychiatric: Mood and Affect: Mood is anxious. Speech: Speech normal. Office Visit on 06/20/2024 Component Date Value Ref Range Status Glucose Blood, POC 06/20/2024 114 60 - 200 mg/dL Final QC Media Lot # 06/20/2024 [id number] Final Lot# Expiration Date 06/20/2024 82,625 Final Hemoglobin A1C 06/20/2024 6.0 4.0 - 6.0 % Final QC Media Lot # 06/20/2024 [id number] Final Lot# Expiration Date 06/20/2024 11,[id number] Final Problem List Items Addressed This Visit Generalized anxiety disorder with panic attacks - Primary Recently started seeing psychiatry and medications, advised to fu closely with them next week. Advised to cut down on vaping cannabis. Pt feels safe at home, advised to reach out to therapist or recovery auditor (he will request one at methadone program). Advised against using recreational substances or alcohol. Pt will see therapist this afternoon. IFG (impaired fasting glucose) I gave him information regarding low calorie meals, advised to eat every 3-5 hours. Advised regarding weight reduction, will consider medications including Topamax or GLP1s. Relevant Orders Lipid Panel with Reflex to Direct LDL Referral to Optometry Morbid obesity ([facility]) Discussed re weight reduction options including exercise, life style modifications, diet. Recommended to decrease soda and sugary beverage consumption, increase protein intake with meals (at least 1 portion of protein with each meal) to assist with satiety, increase dietary fiber Recommended at least 150 min/week of moderate intensity exercise. Will hold referral to release coordinator until next appointment once anxiety is better controlled. Relevant Orders TSH with Reflex to Free T4 Lipid Panel with Reflex to Direct LDL TYSON (obstructive sleep apnea) Pt has not been able to use CPAP, will call sleep specialist to check next appointment. Advised regarding weight reduction, consider Zepbound. Consider Hypoglossal nerve stimulator implant. Fu with sleep specialist. Hyperglycemia See IFG. Relevant Orders POCT Glucose (Completed) POCT HGB A1C (Completed) Follow Up: Current Outpatient Medications on File Prior to Visit Medication Sig Dispense Refill esomeprazole (NexIUM) [address] capsule Take 40 mg by mouth in the morning. famotidine (Pepcid) 40 MG tablet Take 40 mg by mouth at bedtime. ferrous sulfate 325 (65 Fe) MG EC tablet TAKE 1 TABLET BY MOUTH EVERY OTHER DAY SWALLOW WHOLE 45 tablet 0 FLUoxetine (PROzac) 20 MG capsule Take 1 capsule (20 mg) by mouth in the morning. 30 capsule 1 hydrOXYzine pamoate (Vistaril) 50 MG capsule Take 1 capsule (50 mg) by mouth if needed in the morning and at bedtime for anxiety. 60 capsule 1 methadone (Dolophine) 10 MG/ML solution Take 128 mg by mouth in the morning. mirtazapine (Remeron) 15 MG tablet Take 1 tablet (15 mg) by mouth at bedtime. 30 tablet 1 QUEtiapine (SEROquel) 50 MG tablet Take 1 tablet (50 mg) by mouth 2 times daily. 60 tablet 1 Senna-Time 8.6 MG tablet TAKE 2 TABLETS BY MOUTH EVERY DAY AT BEDTIME FOR CONSTIPATION [DISCONTINUED] chlorhexidine (Peridex) 0.12 % solution Swish 15 mL morning and night for 1 minute. Spit, do not swallow. Do not eat or drink for 30 minutes following use. (Patient not taking: Reported on 04/12/2024) 473 mL 0 No current facility-administered medications on file prior to visit. I, Kaity Ibarra, am serving as a scribe to document services personally performed by Dr. Lesia Tran, based on the patient's response to questions by provider and provider's statements to me. documented in this encounter Miscellaneous Notes * Patient Education Note - Lesia Tran MD - 06/20/2024 4:10 PM EDT Images from the original note were not included. Patient Education Table of Contents Diabetes Mellitus and Nutrition, Adult To view videos and all your education online visit, [email or web address] or scan this QR code with your smartphone. Access to this content will in one year. Diabetes Mellitus and Nutrition, Adult When you have diabetes, or diabetes mellitus, it is very important to have healthy eating habits because your blood sugar (glucose) levels are greatly affected by what you eat and drink. Eating healthy foods in the right amounts, at about the same times every day, can help you: Manage your blood glucose. Lower your risk of heart disease. Improve your blood pressure. Reach or maintain a healthy weight. What can affect my meal plan? Every person with diabetes is different, and each person has different needs for a meal plan. Your health care provider may recommend that you work with a dietitian to make a meal plan that is best for you. Your meal plan may vary depending on factors such as: The calories you need. The medicines you take. Your weight. Your blood glucose, blood pressure, and cholesterol levels. Your activity level. Other health conditions you have, such as heart or kidney disease. How do carbohydrates affect me? Carbohydrates, also called carbs, affect your blood glucose level more than any other type of food.Eating carbs raises the amount of glucose in your blood. It is important to know how many carbs you can safely have in each meal. This is different for every person. Your dietitian can help you calculate how many carbs you should have at each meal and for each snack. How does alcohol affect me? Alcohol can cause a decrease in blood glucose (hypoglycemia), especially if you use insulin or takecertain diabetes medicines by mouth. Hypoglycemia can be a life-threatening condition. Symptoms of hypoglycemia, such as sleepiness, dizziness, and confusion, are similar to symptoms of having too much alcohol. Do not drink alcohol if: ? Your health care provider tells you not to drink. ? You are , may be , or are planning to become . If you drink alcohol: ? Limit how much you have to: ? 0?1 drink a day for women. ? 0?2 drinks a day for men. ? Know how much alcohol is in your drink. In the [place] one drink equals one 12 oz bottle of beer (355 mL), one 5 oz glass of wine (148 mL), or one 1? oz glass of hard liquor (44 mL). ? Keep yourself hydrated with water, diet soda, or unsweetened iced tea. Keep in mind that regular soda, juice, and other mixers may contain a lot of sugar and must be counted as carbs. What are tips for following this plan? Reading food labels Start by checking the serving size on the Nutrition Facts label of packaged foods and drinks. The number of calories and the amount of carbs, fats, and other nutrients listed on the label are based on one serving of the item. Many items contain more than one serving per package. Check the total grams (g) of carbs in one serving. Check the number of grams of saturated fats and trans fats in one serving. Choose foods that have alow amount or none of these fats. Check the number of milligrams (mg) of salt (sodium) in one serving. Most people should limit totalsodium intake to less than 2,300 mg per day. Always check the nutrition information of foods labeled as low-fat or nonfat. These foods may be higher in added sugar or refined carbs and should be avoided. Talk to your dietitian to identify your daily goals for nutrients listed on the label. Shopping Avoid buying canned, pre-made, or processed foods. These foods tend to be high in fat, sodium, and added sugar. Shop around the outside edge of the grocery store. This is where you will most often find fresh fruits and vegetables, bulk grains, fresh meats, and fresh dairy products. Cooking Use low-heat cooking methods, such as baking, instead of high-heat cooking methods, such as deep frying. Cook using healthy oils, such as olive, canola, or sunflower oil. Avoid cooking with butter, cream, or high-fat meats. Meal planning Eat meals and snacks regularly, preferably at the same times every day. Avoid going long periods oftime without eating. Eat foods that are high in fiber, such as fresh fruits, vegetables, beans, and whole grains. Eat 4?6 oz (112?168 g) of lean protein each day, such as lean meat, chicken, fish, eggs, or tofu. One ounce (oz) (28 g) of lean protein is equal to: ? 1 oz (28 g) of meat, chicken, or fish. ? 1 egg. ? ? cup (62 g) of tofu. Eat some foods each day that contain healthy fats, such as avocado, nuts, seeds, and fish. What foods should I eat? Fruits Berries. Apples. Oranges. Peaches. Apricots. Plums. Grapes. Mangoes. Papayas. Pomegranates. Kiwi. Cherries. Vegetables Leafy greens, including lettuce, spinach, kale, chard, leanna greens, mustard greens, and cabbage.Beets. Cauliflower. Broccoli. Carrots. Green beans. Tomatoes. Peppers. Onions. Cucumbers. [place] sprouts. Grains Whole grains, such as whole-wheat or whole-grain bread, crackers, tortillas, cereal, and pasta. Unsweetened oatmeal. Quinoa. Brown or wild rice. Meats and other proteins Seafood. Poultry without skin. Lean cuts of poultry and beef. Tofu. Nuts. Seeds. Dairy Low-fat or fat-free dairy products such as milk, yogurt, and cheese. The items listed above may not be a complete list of foods and beverages you can eat and drink. Contact a dietitian for more information. What foods should I avoid? Fruits Fruits canned with syrup. Vegetables Canned vegetables. Frozen vegetables with butter or cream sauce. Grains Refined white flour and flour products such as bread, pasta, snack foods, and cereals. Avoid all processed foods. Meats and other proteins Fatty cuts of meat. Poultry with skin. Breaded or fried meats. Processed meat. Avoid saturated fats. Dairy Full-fat yogurt, cheese, or milk. Beverages Sweetened drinks, such as soda or iced tea. The items listed above may not be a complete list of foods and beverages you should avoid. Contact a dietitian for more information. Questions to ask a health care provider Do I need to meet with a certified diabetes care and educational speech language clinician? Do I need to meet with a dietitian? What number can I call if I have questions? When are the best times to check my blood glucose? Where to find more information: [place] Diabetes Association: diabetes.org Academy of Nutrition and Dietetics: eatright.org National [place] of Diabetes and Digestive and Kidney Diseases: niddk.nih.gov Association of Diabetes Care & Education Specialists: diabeteseducator.org Summary It is important to have healthy eating habits because your blood sugar (glucose) levels are greatlyaffected by what you eat and drink. It is important to use alcohol carefully. A healthy meal plan will help you manage your blood glucose and lower your risk of heart disease. Your health care provider may recommend that you work with a dietitian to make a meal plan that is best for you. This information is not intended to replace advice given to you by your health care provider. Make sure you discuss any questions you have with your health care provider. Document Released: 2005-12-17 Document Updated: 2020-10-22 Document Reviewed: 2020-10-23 Elsevier Patient Education ? 2023 [employer] * Assessment & Plan Note - Kaity Ibarra - 06/20/2024 1:14 PM EDTAssociated Problem(s): Generalized anxiety disorder with panic attacks Recently started seeing psychiatry and medications, advised to fu closely with them next week. Advised to cut down on vaping cannabis. Pt feels safe at home, advised to reach out to therapist or recovery auditor (he will request one at methadone program). Advised against using recreational substances or alcohol. Pt will see therapist this afternoon. * Assessment & Plan Note - Kaity Ibarra - 06/20/2024 1:13 PM EDTAssociated Problem(s): Hyperglycemia See IFG. * Assessment & Plan Note - Kaity Ibarra - 06/20/2024 1:13 PM EDTAssociated Problem(s): IFG (impaired fasting glucose) I gave him information regarding low calorie meals, advised to eat every 3-5 hours. Advised regarding weight reduction, will consider medications including Topamax or GLP1s. * Assessment & Plan Note - Kaity Ibarra - 06/20/2024 1:12 PM EDTAssociated Problem(s): Morbid obesity (CMS/HCC) Discussed re weight reduction options including exercise, life style modifications, diet. Recommended to decrease soda and sugary beverage consumption, increase protein intake with meals (at least 1 portion of protein with each meal) to assist with satiety, increase dietary fiber Recommended at least 150 min/week of moderate intensity exercise. Will hold referral to release coordinator until next appointment once anxiety is better controlled. * Assessment & Plan Note - Kaity Ibarra - 06/20/2024 1:12 PM EDTAssociated Problem(s): TYSON (obstructive sleep apnea) Pt has not been able to use CPAP, will call sleep specialist to check next appointment. Advised regarding weight reduction, consider Zepbound. Consider Hypoglossal nerve stimulator implant. Fu with sleep specialist. documented in this encounter Plan of Treatment Upcoming Encounters Date Type Department Care Team (Late st Contact Info) Description 07/03/2024 10:00 AM EDT Office Visit [facility] ADULT DENTAL [address] [place] [address] Trenton Wilkerson DDS [address] [place] [address] 08/24/2024 9:00 AM EDT Office Visit [facility] MEDICINE [address] [place] [address] Lesia Tran MD [address] [place] [address] Scheduled Orders Name Type Priority Associated Diagnoses Orde r Schedule TSH with Reflex to Free T4 Lab Routine Morbid obesity ([facility]/HCC) Expected: 06/20/2024 (Approximate), Expires: 06/20/2025 Lipid Panel with Reflex to Direct LDL Lab Routine IFG (impaired fasting glucose) Morbid obesity ([facility]) Expected: 06/20/2024 (Approximate), Expires: 06/20/2025 Scheduled Referrals Name Type Priority Associated Diagnoses Orde r Schedule Referral to Optometry Outpatient Referral Routine IFG (impaired fasting glucose) Expected: 06/20/2024 (Approximate), Expires: 06/20/2025 documented as of this encounter Procedures Procedure Name Priority Date/Time Associated Diagnosis Comments POCT GLYCATED HEMOGLOBIN, TOTAL Routine 06/20/2024 12:05 PM EDT Hyperglycemia POCT GLUCOSE Routine 06/20/2024 12:02 PM EDT Hyperglycemia documented in this encounter Results * POCT HGB A1C (06/20/2024 12:05 PM EDT) Hemoglobin A1C 6.0 4.0 - 6.0 % QC Media Lot # [id number] Lot# Expiration Date ,026 Blood 06/20/2024 12:0 5 PM EDT Lesia Tran MD POINT OF CARE TEST ENTER /EDIT ORDERABLES Final Result * POCT Glucose (06/20/2024 12:02 PM EDT) Glucose Blood, POC 114 60 - 200 mg/dL QC Media Lot # [id number] Lot# Expiration Date 82,625 Blood Capillary blood specimen / Unknown 06/20/2024 12:02 PM EDT Lesia Tran MD POINT OF CARE TEST ENTER /EDIT ORDERABLES Final Result documented in this encounter Visit Diagnoses Diagnosis Generalized anxiety disorder with panic attacks- Primary IFG (impaired fasting glucose) Morbid obesity (CMS/HCC) Morbid obesity TYSON (obstructive sleep apnea) Obstructive sleep apnea (adult) (pediatric) Hyperglycemia Other abnormal glucose documented in this encounter Additional Health Concerns Assessment Noted Time PHQ-9 Depression Total Score: 21 024 2:23 PM EST documented as of this encounter Care Teams Windows Admin Relationship Specialty Start Date End Date Lesia Tran MD [address] [place] [id number] PCP - General Internal Medicine 12/07/23 documented as of this encounter
--- OUTSIDE RECORDS SUMMARY | 2024-06-21 14:07 | XMS_ITS | Encounter Summary ---
Author Organization [employer] Address [address] [facility] [address] [place] [address] Care Team Providers Care Chef Kitchen Manager Name Role Phone Neetu Bah Primary Care Provider Roma Bender Primary Care Provider [phone] Neetu Bah Unavailable [phone] Lesia Tran MD Primary Care Provider + Encounter Details Date Type Department Care Team (Late st Contact Info) Description 09/29/2022 Abstract [facility] ADULT DENTAL [address] [place] [address] Trenton Wilkerson DDS [address] [place] [address] Social History Tobacco Use Types Packs/Day Years [...] Visit [facility] ADULT DENTAL [address] [place] [address] Trenton Wilkerson DDS [address] [place] [address] 08/24/2024 9:00 AM EDT Office Visit [facility] MEDICINE [address] [place] [address] Lesia Tran MD [address] [place] [address] documented as of this encounter Visit Diagnoses Not on filedocumented in this encounter Care Teams Chef Kitchen Manager Relationship Specialty Start Date End Date Neetu Bah AGNP [address] [place] [phone] PCP - General Family Medicine 11/28/20 01/13/23 Roma Bender FNP [address] [place] [id number] PCP - General Family Medicine 01/14/23 12/06/23 Lesia Tran MD [address] [place] [phone] PCP - General Internal Medicine 12/07/23 Neetu Bah AGNP [address] [place] [address] Family Medicine 01/14/23 09/02/23 documented as of this encounter
--- OUTSIDE RECORDS SUMMARY | 2024-06-21 14:07 | XMS_ITS | Encounter Summary ---
Author Organization [email or web address] Address [address] [place] [address] Care Team Providers Care Watch Hairspring Assembler Name Role Phone Lesia Tran MD Primary Care Provider + Encounter Details Date Type Department Care Team (Latest Contact Info) Description 06/17/2024 Travel Social History Tobacco Use Types Packs/Day [...] 07/03/2024 10:00 AM EDT Office Visit [facility] ADULT DENTAL [address] [place] [address] Trenton Wilkerson DDS [address] [place] [address] 08/24/2024 9:00 AM EDT Office Visit [facility] MEDICINE [address] [place] [address] Lesia Tran MD [address] [place] [address] documented as of this encounter Visit Diagnoses Not on filedocumented in this encounter Additional Health Concerns Assessment Noted Time PHQ-9 Depression Total Score: 21 024 2:23 PM EST documented as of this encounter Care Teams Watch Hairspring Assembler Relationship Specialty Start Date End Date Lesia Tran MD [address] [place] [phone] PCP - General Internal Medicine 12/07/23 documented as of this encounter
--- OUTSIDE RECORDS SUMMARY | 2024-06-21 14:07 | XMS_ITS | Encounter Summary ---
Author Organization [employer] Address 75 [facility] 7t [place] [address] Care Team Providers Care Blast Furnace Keeper Name Role Phone Lesia Tran MD Primary Care Provider + Reason for Visit * Reason Comments Pre-visit Planning SDOH screening negat swathi and tobacco screening positive Encounter Details Date Type Department Care Team (Late st Contact Info) Description 06/08/2024 Patient Outreach [facility] [address] [place] [address] Lesia Tran MD [address] [place] [address] Pre-visit Planning (SDOH screening negative and tobacco [...] 10:00 AM EDT Office Visit [facility] [address] [place] [address] Trenton Wilkerson DDS [address] [place] [address] 08/24/2024 9:00 AM EDT Office Visit [facility] [address] [place] [address] Lesia Tran MD [address] [place] [address] documented as of this encounter Visit Diagnoses Not on filedocumented in this encounter Additional Health Concerns Assessment Noted Time PHQ-9 Depression Total Score: 21 024 2:23 PM EST documented as of this encounter Care Teams Blast Furnace Keeper Relationship Specialty Start Date End Date Lesia Tran MD [address] [place] [address] PCP - General Internal Medicine 12/07/23 documented as of this encounter
--- OUTSIDE RECORDS SUMMARY | 2024-06-21 14:07 | XMS_ITS | Clinical Summary ---
Author Organization [facility] Address [address] [place] [address] Phone Care Team Providers Care Air Twist Operator Name Role Phone Az Terrell Primary Care Provider [phone] Immunizations Immunization Administration Dates Next Due DTP [...] age to complete this topic Care Teams Air Twist Operator Relationship Specialty Start Date End Date Az Terrell [address] [place] [phone] PCP - General 11/13/16
--- OUTSIDE RECORDS SUMMARY | 2024-06-21 14:07 | XMS_ITS | Encounter Summary ---
Author Organization [employer] Address 75 [facility] 7t [place] [address] Care Team Providers Care Excavation Laborer Name Role Phone Lesia Tran MD Primary Care Provider + Reason for Visit * Reason Onset Date Comments Med Refill 05/15/2024 Encounter Details Date Type Department Care Team (Late st Contact Info) Description 05/15/2024 Telephone [facility] [address] [place] [address] Lesia Tran MD [address] [place] [address] Med Refill Social History Tobacco Use Types [...] AM EST Medication was sent to [id number] on 05/01/24 with 1 refill. * Telephone Encounter - Kenisha Mtz - 05/15/2024 9:43 AM EST TC from pt requesting medication refill. Medications needing refill : hydrOXYzine pamoate (Vistaril) 25 MG capsule To be sent to: [facility]/pharmacy #[id number] - [address] documented in this encounter Plan of Treatment Upcoming Encounters Date Type Department Care Team (Late st Contact Info) Description 07/03/2024 10:00 AM EDT Office Visit [facility] [address] [place] [address] Trenton Wilkerson DDS [address] [place], [place] [phone] 08/24/2024 9:00 AM EDT Office Visit [facility] [address] [place], [place] [phone] Lesia Tran MD [address] [place] [address] documented as of this encounter Visit Diagnoses Not on filedocumented in this encounter Additional Health Concerns Assessment Noted Time PHQ-9 Depression Total Score: 21 024 2:23 PM EST documented as of this encounter Care Teams Excavation Laborer Relationship Specialty Start Date End Date Lesia Tran MD [address] [place] [address] [phone] PCP - General Internal Medicine 12/07/23 documented as of this encounter
--- OUTSIDE RECORDS SUMMARY | 2024-06-21 14:07 | XMS_ITS | Encounter Summary ---
Author Organization [employer] Address 75 [facility] 7t [place] [address] Care Team Providers Care Chief Accountant Name Role Phone Lesia Tran MD Primary Care Provider + Reason for Visit * Reason Onset Date Comments medication 02/02/2024 Encounter Details Date Type Department Care Team (Late st Contact Info) Description 02/02/2024 Telephone [facility] [address] [place] [address] Trenton Wilkerson, BJS [address] [place] [address] medication Social History Tobacco Use Types Packs/Day [...] Description 07/03/2024 10:00 AM EDT Office Visit [facility] ADULT D[facility] [address] [place] [address] Trenton Wilkerson DDS [address] [place] [address] 08/24/2024 9:00 AM EDT Office Visit [facility] MED[facility]INE [address] [place] [address] Lesia Tran MD [address] [place] [address] documented as of this encounter Visit Diagnoses Not on filedocumented in this encounter Additional Health Concerns Assessment Noted Time PHQ-9 Depression Total Score: 21 024 2:23 PM EST documented as of this encounter Care Teams Chief Accountant Relationship Specialty Start Date End Date Lesia Tran MD [address] [place] [address] PCP - General Internal Medicine 12/07/23 documented as of this encounter
--- OUTSIDE RECORDS SUMMARY | 2024-06-21 14:07 | XMS_ITS | Encounter Summary ---
Author Organization [employer] Address 75 [facility] 7t [place] [address] Care Team Providers Care Sales Force Administrator Name Role Phone Neetu Bah Primary Care Provider Roma Bender Primary Care Provider [phone] Neetu Bah Unavailable [phone] Lesia Tran MD Primary Care Provider + Encounter Details Date Type Department Care Team (Late st Contact Info) Description 09/29/2022 Abstract [facility] ADULT DENT[facility] [address] [place] [address] Trenton Wilkerson DDS [address] [place] [address] Social History Tobacco Use Types Packs/Day Years [...] Description 07/03/2024 10:00 AM EDT Office Visit [facility] ADULT DENTAL [address] [place] [address] Trenton Wilkerson DDS [address] [place] [address] 08/24/2024 9:00 AM EDT Office Visit [facility] MEDICINE [address] [place] [address] Lesia Tran MD [address] [place] [address] documented as of this encounter Visit Diagnoses Not on filedocumented in this encounter Care Teams Sales Force Administrator Relationship Specialty Start Date End Date Neetu Bah AGNP [address] [place] [address] PCP - General Family Medicine 11/28/20 01/13/23 Roma Bender FNP [address] [place] [address] PCP - General Family Medicine 01/14/23 12/06/23 Lesia Tran MD [address] [place] [address] PCP - General Internal Medicine 12/07/23 Neetu Bah AGNP [address] [place] [address] Family Medicine 01/14/23 09/02/23 documented as of this encounter
--- OUTSIDE RECORDS SUMMARY | 2024-06-21 14:07 | XMS_ITS | Encounter Summary ---
Author Organization [employer] Address 75 [facility] 7t [place] [address] Care Team Providers Care Supervisor Commissary Production Name Role Phone Lesia Tran MD Primary Care Provider + Encounter Details Date Type Department Care Team (Late st Contact Info) Description 06/16/2024 Population Health Risk Score [facility] Care [facility] (C[facility]) Department 75 [facility] [address] [place] [address] Provider, Population Health Generic Social History Tobacco Use Types Packs/Day Years [...] Description 07/03/2024 10:00 AM EDT Office Visit [facility] ADULT DENTAL [address] [place] [address] Trenton Wilkerson DDS [address] [place] [address] 08/24/2024 9:00 AM EDT Office Visit [facility] MED[facility] [address] [place] [address] Lesia Tran MD [address] [place] [address] documented as of this encounter Visit Diagnoses Not on filedocumented in this encounter Additional Health Concerns Assessment Noted Time PHQ-9 Depression Total Score: 21 024 2:23 PM EST documented as of this encounter Care Teams Supervisor Commissary Production Relationship Specialty Start Date End Date Lesia Tran MD [address] [place] [address] PCP - General Internal Medicine 12/07/23 documented as of this encounter
--- OUTSIDE RECORDS SUMMARY | 2024-06-21 14:07 | XMS_ITS | Encounter Summary ---
Author Organization [employer] Address 75 [facility] 7t [place] [address] Care Team Providers Care Contractor Buyer Name Role Phone Lesia Tran MD Primary Care Provider + Reason for Visit * Reason Onset Date Comments Chart prep 06/12/2024 Encounter Details Date Type Department Care Team (Late st Contact Info) Description 06/12/2024 Telephone [facility] MEDICINE [address] [place] [address] Lesia Tran MD [address] [place] [address] Chart prep Social History Tobacco Use Types [...] Description 07/03/2024 10:00 AM EDT Office Visit [facility] ADULT DENTAL [address] [place] [address] Trenton Wilkerson DDS [address] [place] [address] 08/24/2024 9:00 AM EDT Office Visit [facility] MED[facility] [address] [place] [address] Lesia Tran MD [address] [place] [address] documented as of this encounter Visit Diagnoses Not on filedocumented in this encounter Additional Health Concerns Assessment Noted Time PHQ-9 Depression Total Score: 21 024 2:23 PM EST documented as of this encounter Care Teams Contractor Buyer Relationship Specialty Start Date End Date Lesia Tran MD [address] [place] [address] PCP - General Internal Medicine 12/07/23 documented as of this encounter
--- OUTSIDE RECORDS SUMMARY | 2024-06-21 14:07 | XMS_ITS | Encounter Summary ---
Author Organization [employer] Address 75 [facility] 7t [place] [address] Care Team Providers Care Formula Weigher Name Role Phone Lesia Tran MD Primary Care Provider + Reason for Visit * Reason Onset Date Comments Nurse Triage 06/16/2024 Encounter Details Date Type Department Care Team (Late st Contact Info) Description 06/16/2024 Telephone [facility] [address] [place] [address] Lesia Tran MD [address] [place] [address] Nurse Triage Social History Tobacco Use Types Packs/Day Years [...] encounter Miscellaneous Notes * Telephone Encounter - Anita Monahan LPN - 06/16/2024 10:56 AM EDT Please see full note below. Patient requesting additional Care Mgmt assistance and BHN contact. BHNcontacted at 1720 with upcoming PCP date and time. * Telephone Encounter - Anita Monahan LPN - 06/16/2024 10:33 AM EDT Triage call to patient who answers phone readily. Patient is alert and verbal and able to make all needs known. Confirms missed PCP appt from yesterday as he was in [facility] ED ( note requested) Patient with reported abdominal pain and reports that he had CT scan that was negative, given IVF and anxietymedication and then sent home. Patient with significant anxiety as discussed thru the call. Patient anxious thru call with rapid speech. 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 Reports that he smokes marijuana from the dispensary that he feels helps calm him. Patient reports that he is on multiple medications with multiple physical issues, difficulty swallowing and eating. Reports getting some sort of illness every 2 months. Patient confirms he is taking Nexium and that he restarted iron tablets today. Patient reports BM normally every day but at times goes 3-4 days with no BM. Has ongoing daily fatigue. Patient reports cramping abdominal pain associated with feeling sweating all the time sits with afan on him as he has hot flashes and when it recently happened in the store he confirms he felt better after BM. Reports that when out with his Mom he frequently has to have her take him home. Patient is compliant with previous psych meds. Confirms that in the past he has had crazy thoughts in regards to suicide no definitive plan but that he is tired of feeling sick . Patient remains in his house daily as Mom is at work and that he has increased anxiety and inability to be outdoors due to anxious symptoms. Patient given and confirmed crisis number and is in agreement to reach out to [facility] and Crisis as needed. Has concerns for relapse and that he will have episode of feeling sick when outside. No acute abdominal pain at time of call. Is tolerating soup as main diet due to swallowing issue. Has GI follow up next week on the . Multiple missed or cancelled appts due to illness and anxiety. Patient reports that he needs assistance with things and has tried to apply for SSI as he has been able to work for years. He has had contact with Care Coordinators here at [facility] and is requesting additional help. Patient agrees to have [facility] reach out to him with worsening symptoms. [facility] to [facility] sent. Disposition reviewed and patient in agreement with plan. ASK/PCP on Wednesday06/20/24 1130am. Multiple (3) protocols were used on this call. Disposition for Call: See in Office or Video Visit Today or Tomorrow Protocol Used: Suicide Concerns (Adult) Protocol-Based Disposition: See in Office or Video Visit Today or Tomorrow Video visit not offered Positive Triage Questions: * Sometimes has thoughts of suicide * Depression symptoms (sadness, hopelessness, decreased energy) interfere with work or school * All higher-acuity triage questions were negative Care Advice Discussed: * Reasons To Call Back - You feel like harming yourself or feel more depressed. - You become worse Protocol Used: Anxiety and Panic Attack (Adult) Protocol-Based Disposition: See in Office or Video Visit within 3 Days Video visit not offered Positive Triage Questions: * Panic attacks are increasing in frequency * Requesting to talk to a counselor (e.g., mental health worker, psychiatrist) * Patient wants to be seen * All higher-acuity triage questions were negative Care Advice Discussed: * Avoid Caffeine * Reasons To Call Back - Anxiety or panic attacks continue - You feel like harming yourself - You become worse Protocol Used: Abdominal Pain - Male (Adult) Protocol-Based Disposition: See in Office or Video Visit within 2 Weeks Positive Triage Question: * Abdominal pain is a chronic symptom (recurrent or ongoing AND lasting > 4 weeks) * All higher-acuity triage questions were negative Care Advice Discussed: * Rest * Drink Clear Fluids * Diet * Pass a Stool * Reasons To Call Back - Severe pain lasts over 1 hour - Constant pain lasts over 2 hours - Intermittent pains (comes and goes, cramps) lasts over 48 hours - You become worse * Telephone Encounter - Anita Monahan LPN - 06/16/2024 10:29 AM EDT Please obtain [facility] ED note from visit on 06/15/24. Patient scheduled with PCP on Wednesday06/20/24. * Telephone Encounter - Kenisha Mtz - 06/16/2024 9:52 AM EDT Symptoms: Abdominal Pain - Male, Abdominal Swelling Outcome: Schedule an urgent appointment (within 4 hours) or talk to a nurse or provider soon Reason: Started within the past 3 days The caller accepted this outcome. [phone] documented in this encounter Plan of Treatment Upcoming Encounters Date Type Department Care Team (Late st Contact Info) Description 07/03/2024 10:00 AM EDT Office Visit [facility] ADULT DENT[facility] [address] [place], [place] [phone] Trenton Wilkerson DDS [address] [place] [address] 08/24/2024 9:00 AM EDT Office Visit [facility] MED[facility] [address] [place] [address] Lesia Tran MD [address] [place], [place] [phone] documented as of this encounter Visit Diagnoses Not on filedocumented in this encounter Additional Health Concerns Assessment Noted Time PHQ-9 Depression Total Score: 21 024 2:23 PM EST documented as of this encounter Care Teams Formula Weigher Relationship Specialty Start Date End Date Lesia Tran MD [address] [place] [phone] PCP - General Internal Medicine 12/07/23 documented as of this encounter
--- OUTSIDE RECORDS SUMMARY | 2024-06-21 14:07 | XMS_ITS | Encounter Summary ---
Author Organization [employer] Address 75 [facility] 7t [place] [address] Care Team Providers Care Power Plant Assistant Name Role Phone Lesia Tran MD Primary Care Provider + Reason for Visit * Reason Comments Care Coordination [facility] Jennifer ndiaye telephone call outreach Encounter Details Date Type Department Care Team (Latest Contact Info) Description 06/14/2024 Patient Outreach [facility] MEDICINE [address] [place] [address] Lesia Tran MD [address] [place] [address] Care Coordination [facility] telephone call outreach) Social History Tobacco [...] outbound call to patient introducing herself from [facility] CM Department, in regards to offering services. Patient's name and was confirmed. Patient agrees toparticipate in program. Appt. for initial assessment scheduled for 06/28/24@ 10:30AM. CHW reinforceddirect contact information or for any additional questions or concerns and extended clinic hours on Mondays and Wednesdays, and Walk-In Urgent Care Located in [facility]. Patient provided with after-hours line for [facility], , which offer night time triage service and option to transfer to university relations recruiter provider if needed. Patient verbalizes understanding, and able to repeat back to web content writer. documented in this encounter Plan of Treatment Upcoming Encounters Date Type Department Care Team (Late st Contact Info) Description 07/03/2024 10:00 AM EDT Office Visit [facility] ADULT DENTAL [address] [place] [address] Trenton Wilkerson DDS [address] [place] [address] 08/24/2024 9:00 AM EDT Office Visit [facility] MEDICINE [address] [place], [place] [phone] Lesia Tran MD [address] [place] [address] documented as of this encounter Visit Diagnoses Not on filedocumented in this encounter Additional Health Concerns Assessment Noted Time PHQ-9 Depression Total Score: 21 024 2:23 PM EST documented as of this encounter Care Teams Power Plant Assistant Relationship Specialty Start Date End Date Lesia Tran MD [address] [place] [address] PCP - General Internal Medicine 12/07/23 documented as of this encounter
--- OUTSIDE RECORDS SUMMARY | 2024-06-21 14:07 | XMS_ITS | Encounter Summary ---
Author Organization [employer] Address [address] [facility] [address] 7t [place] [address] Care Team Providers Care Banding Machine Operator Name Role Phone Lesia Tran MD [...] [facility] AD[facility] D[facility] [address] [place] [address] Trenton Wilkerson DDS [address] [place] [address] 08/24/2024 9:00 AM EDT Office Visit [facility] MEDICINE [address] [place] [address] Lesia Tran MD [address] [place] [address] documented as of this encounter Visit Diagnoses Not on filedocumented in this encounter Additional Health Concerns Assessment Noted Time PHQ-9 Depression Total Score: 21 024 2:23 PM EST documented as of this encounter Care Teams Banding Machine Operator Relationship Specialty Start Date End Date Lesia Tran MD [address] [place] [address] PCP - General Internal Medicine 12/07/23 documented as of this encounter
--- OUTSIDE RECORDS SUMMARY | 2024-06-21 14:07 | XMS_ITS | Encounter Summary ---
Author Organization [employer] Address [address] [place] [address] 7t [place] [address] Care Team Providers Care Bowling Ball Grader And Marker Name Role Phone Neetu Bah Primary Care Provider Roma Bender Primary Care Provider Neetu Bah Unavailable [phone] Lesia Tran MD Primary Care Provider + Reason for Visit * Reason Onset Date Comments New Patient 11/18/2022 Encounter Details Date Type Department Care Team (Late st Contact Info) Description 11/18/2022 Telephone [facility] MEDICINE [address] [place] [address] Koby Holland MD [address] [place], [place] [phone] New Patient Social History Tobacco Use Types [...] been transfer 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 EFFECTIVE SINCE 11/24/2022 * Telephone Encounter - Lisa Zarate Marianne - 11/18/2022 10:33 AM EDT Tc to Pt , informed that we do take insurance, but must call [employer] to change location. Once done, to please call back to facility at [phone] documented in this encounter Plan of Treatment Upcoming Encounters Date Type Department Care Team (Late st Contact Info) Description 07/03/2024 10:00 AM EDT Office Visit [facility] ADULT DENTAL [address] [place] [address] Trenton Wilkerson DDS [address] [place] [address] 08/24/2024 9:00 AM EDT Office Visit [facility] MEDICINE [address] [place] [address] Lesia Tran MD [address] [place] [address] documented as of this encounter Visit Diagnoses Not on filedocumented in this encounter Care Teams Bowling Ball Grader And Marker Relationship Specialty Start Date End Date Neetu Bah AGNP [address] [place] [phone] PCP - General Family Medicine 11/28/20 01/13/23 Roma Bender FNP [address] [place] [address] PCP - General Family Medicine 01/14/23 12/06/23 Lesia Tran MD [address] [place] [address] PCP - General Internal Medicine 12/07/23 Neetu Bah AGNP [address] [place] [phone] Family Medicine 01/14/23 09/02/23 documented as of this encounter
--- OUTSIDE RECORDS SUMMARY | 2024-06-21 14:07 | XMS_ITS | Encounter Summary ---
Author Organization [employer] Address [address] [facility] [address] 7t [place] [address] Care Team Providers Care Supervisor Ditching Name Role Phone Roma Bender Primary Care Provider [phone] Neetu Bah Unavailable [phone] Lesia Tran MD Primary Care Provider + Encounter Details Date Type Department Care Team (Late st Contact Info) Description 02/19/2023 Orders Only [facility] [address] [place] [address] Roma Bender FNP [address] [place] [address] Other acute gastritis, presence of bleeding unspecified [...] Description 07/03/2024 10:00 AM EDT Office Visit [facility] ADULT DENTAL [address] [place] [address] Trenton Wilkerson DDS [address] [place] [address] 08/24/2024 9:00 AM EDT Office Visit [facility] MEDICINE [address] [place] [address] Lesia Tran MD [address] [place] [address] documented as of this encounter Visit Diagnoses Diagnosis Other acute gastritis, presence of bleeding unspecified- Primary documented in this encounter Additional Health Concerns Assessment Noted Time PHQ-9 Depression Total Score: 11 023 3:14 PM EDT documented as of this encounter Care Teams Supervisor Ditching Relationship Specialty Start Date End Date Roma Bender FNP [address] [place] [address] PCP - General Family Medicine 01/14/23 12/06/23 Lesia Tran MD [address] [place] [address] PCP - General Internal Medicine 12/07/23 Neetu Bah AGNP [address] [place] [phone] Family Medicine 01/14/23 09/02/23 documented as of this encounter
--- OUTSIDE RECORDS SUMMARY | 2024-06-21 14:07 | XMS_ITS | Clinical Summary ---
Author Organization [employer] Address [address] [facility] 7t [place] [address] Care Team Providers Care Supervisor Print Line Name Role Phone Lesia Tran MD Primary [...] mg by mouth in the morning. Active ferrous sulfate 325 (65 Fe) MG EC [...] 60 tablet 1 05/29/19 25 025 Active chlorhexidine (Peridex) 0.12 % solution Swish 15 mL morning and night for 1 minute. Spit, do not swallow. Do not eat or drink for 30 minutes following use. 473 mL 02/02/20 24 025 Discontinued(T herapy completed) mirtazapine (Remeron) 15 MG tabletIndicat ions:Severe episode [...] Active Problems Problem Noted Date Diagnosed Date IFG (impaired fasting glucose) 06/20/2024 Assessment & Plan (06/20/2024 1:13 PM EDT): I gave him information regarding low calorie meals, advised to eat every 3-5 hours. Advised regarding weight reduction, will consider medications including Topamax or GLP1s. Hyperglycemia 06/20/2024 Assessment & Plan (06/20/2024 1:13 PM EDT): See IFG. Generalized anxiety disorder with panic attacks 06/20/2024 Assessment & Plan (06/20/2024 1:14 PM EDT): Recently started seeing psychiatry and medications, advised to fu closely with them next week. Advised to cut down on vaping cannabis. Pt feels safe at home, advised to reach out to therapist or high school sports coach (he will request one at methadone program). Advised against using recreational substances or alcohol. Pt will see therapist this afternoon. History of substance use disorder 04/12/2024 Complete edentulism 04/12/2024 TYSON (obstructive sleep apnea) 02/11/2024 Overview (02/11/2024): Sleep study at [facility]: moderate TYSON with nocturnal hypoxemia, <88% 24.1 minutes, lowest 77%. Assessment & Plan (06/20/2024 1:12 PM EDT): Pt has not been able to use CPAP, will call sleep specialist to check next appointment. Advised regarding weight reduction, consider Zepbound. Consider Hypoglossal nerve stimulator implant. Fu with sleep specialist. Assessment & Plan (02/11/2024 3:58 PM EST): [facility] [...] Last Addressed Date: 10/26/2022 Assessment & Plan (06/20/2024 1:12 PM EDT): Discussed re weight reduction options including exercise, life style modifications, diet. Recommended to decrease soda and sugary beverage consumption, increase protein intake with meals (at least 1 portion of protein with each meal) to assist with satiety, increase dietary fiber Recommended at least 150 min/week of moderate intensity exercise. Will hold referral to body make up artist until next appointment once anxiety is better controlled. Assessment & Plan (02/11/2024 4:02 PM EST): [...] ID: Yaniv is a 37 y.o. White Sudanese choose not to disclose-identified cis- male (pronouns [...] for 2.5 years, currently on methadone at [facility], 128mg with a plan on [...] intervention , Patient to [facility] out [facility] as needed, and Patient to reach out to [facility] as needed Anxiety 06/10/2023 Overview (10/18/2023): Last Addressed Date: 10/26/2022 Assessment & Plan (02/11/2024 4:04 PM EST): Seen by MH provider at [facility], will bring meds at next [...] PM EST): Doing well on Methadone at [facility] has take home bottles Advised to decrease use of THC Encounters * This document contains information received from the source organization and may not represent a complete record from that organization. Date Type Department Care Team Description 06/20/2024 11:30 AM EDT Office Visit [facility] [address] [place] [phone] Lesia Tran MD Generalized anxiety disorder with panic attacks (Primary Dx); IFG (impaired fasting glucose); Morbid obesity (CMS/HCC); TYSON (obstructive sleep apnea); Hyperglycemia 06/17/2024 Travel 06/16/2024 Travel 06/16/2024 Population Health Risk Score [facility] (C3) Department [address] [place] [phone] Provider, Population Health Generic 06/16/2024 Telephone [facility] [address] [place] [phone] Lesia Tran MD Nurse Triage 06/15/2024 Telephone [facility] [address] [place] [phone] Lesia Tran MD No Show 06/14/2024 Patient Outreach [facility] [address] [place] [phone] Lesia Tran MD Care Coordination ([facility] -[facility] Jennifer Burgess telephone call outreach) 06/12/2024 Telephone [facility] [address] [place] [phone] Lesia Tran MD Chart prep 06/08/2024 Travel 06/08/2024 Patient Outreach [facility] [address] [place] [phone] Lesia Tran MD Pre-visit Planning (SDOH screening negative and tobacco screening positive) 06/05/2024 Telephone [facility] [address] [facility] [place] [address] Lesia Tran MD Care Management (C3- chart review) 06/02/2024 10:00 AM EST Office Visit [facility] ADULT DENTAL [address] [place] [address] Trenton Wilkerson DDS Complete edentulism, unspecified edentulism class (Primary Dx) 05/29/2024 Travel 05/24/2024 Telephone [facility] [address] [place] [address] Lesia Tran MD Results 05/22/2024 Travel 05/19/[address] [address] Lesia Tran MD Results 05/15/2024 Orders Only GENERIC EXTERNAL DATA DEPARTMENT Provider, Generic External Data 05/15/2024 Telephone [facility] [address] [facility] [place] [address] Lesia Tran MD Med Refill 05/12/2024 Telephone [facility] [address] [place] [address] Bobbi Deal, ROXANN Results: Chest CT 05/12/24 05/03/2024 10:00 AM EST Office Visit [facility] ADULT DENTAL [address] [place] [address] Trenton Wilkerson DDS Complete edentulism, unspecified edentulism class (Primary Dx) 04/30/2024 Travel 04/17/2024 Refill [facility] [address] [place] [address] Lesia Tran MD 04/12/2024 2:30 PM EST Office Visit [facility] ADULT DENTAL [address] [place] [address] Trenton Wilkerson DDS Complete edentulism, unspecified edentulism class (Primary Dx) 04/12/2024 Travel 04/11/2024 Travel 04/07/2024 Patient Outreach [facility] [address] [place] [address] Lesia Tran MD Pre-visit Planning ([facility] screening completed on ) 03/30/2024 Telephone [facility] [address] [place] [address] Renata Méndez RN Results from Last 3 Months Immunizations [...] Mass Index 45.32 06/20/2024 11:24 AM EDT Plan of Treatment Upcoming Encounters Date Type Department Care Team (Late st Contact Info) Description 07/03/2024 10:00 AM EDT Office Visit [facility] ADULT DENTAL [address] [place] [address] Trenton Wilkerson DDS [address] [place], [place] [phone] 08/24/2024 9:00 AM EDT Office Visit [facility] [address] [place], [place] [phone] Lesia Tran MD [address] [place], [place] [phone] Health Maintenance Due Date Last Done Comments Dental Prophylaxis 1987 Alcohol/Substance Use Screening 1999 Family Planning (PISQ) 06/23/2002 Pneumococcal Vaccine: Pediatrics (0 to 5 Years) and At-Risk Patients (6 to 49) Years) (1 of 2 - PCV) 06/23/2006 Dental X-Ray: Bitewings 02/21/2015 02/20/2014 COVID-19 Vaccine ( season) 2023 09/11/2020, 07/30/2020 Influenza Vaccine (#1) 2023 , 01/28/2022, 07/14/2021 Depression Monitoring (PHQ-9) 08/10/2024 02/11/2024, 06/10/2023 Dental Oral Exam 10/11/2024 04/12/2024, 02/20/2014 Depression Screening 02/10/2025 02/11/2024, 06/10/19 24 SDOH Screening 06/08/2025 06/08/2024 Diabetes: Hemoglobin A1C 06/20/2025 06/20/2024, 03/0 08/2023 Tobacco Screening 06/20/2025 06/20/2024 Dental X-Ray: Full Mouth 04/13/2027 025, 12/01/2023, [...] 11/02/1997, 10/05, 07/03/1989, Additional history exists Hepatitis A Vaccines [...] GLUCOSE Routine 06/20/2024 12:02 PM EDT Hyperglycemia BITE REGISTRATION Routine 06/02/2024 10: 00 AM [...] Recently Relevant to Health Maintenance Results * POCT HGB A1C (06/20/2024 12:05 PM EDT) Hemoglobin A1C 6.0 4.0 - 6.0 % QC Media Lot # [id number] Lot# Expiration Date ,791 Blood 06/20/2024 12:0 5 PM EDT Lesia Tran MD POINT OF CARE TEST ENTER /EDIT ORDERABLES Final Result * POCT Glucose (06/20/2024 12:02 PM EDT) Pathologist [facility] Glucose Blood, POC 114 60 - 200 mg/dL QC Media Lot # [id number] Lot# Expiration Date 82,625 Blood Capillary blood specimen / Unknown 06/20/2024 12:02 PM EDT Lesia Tran MD POINT OF CARE TEST ENTER /EDIT ORDERABLES Final Result * (ABNORMAL) Drug Monitoring, Panel 1, Screen, Urine (06/02/2024 9:29 AM EST) Pathologist [facility] Opiate Screen Urine Not Detected Not Detect [facility] Comment:Opiate cut-off is 30 0 ng/mL.Positive results are unconfirmed and should not be used fornon-medical purposes. Barbiturates, Urine Not Detected Not Detect [facility] Comment:Barbiturate cut-off is 200 ng/mL.Positive results are unconfirmed and should not be used fornon-medical purposes. Phencyclidine Screen Urine Not Detected Not Detect [facility] Comment:Phencyclidine cut-of f is 25 ng/mL.Positive results are unconfirmed and should not be used fornon-medical purposes. Amphetamine Screen Urine Not Detected Not Detect [facility] Comment:Amphetamine cut-off is 1000 ng/mL.Positive results are unconfirmed and should not be used fornon-medical purposes. Benzodiazepines Screen Urine Not Detected Not Detect [facility] Comment:Benzodiazepine cut-o ff is 200 ng/mL.Positive results are unconfirmed and should not be used fornon-medical purposes. Cocaine Screen Urine Not Detected Not Detect [facility] Comment:Cocaine cut-off is 3 00 ng/mL.Positive results are unconfirmed and should not be used fornon-medical purposes. Cannabinoid Screen Urine POSITIVE(A) Not Detect [facility] Comment:Cannabinoid cut-off is 50 ng/mL.Positive results are unconfirmed and should not be used fornon-medical purposes. Methadone Screen, Urine Positive(A) Not Detect ng/mL [facility] Comment:Methadone cut-off is 300 ng/mL.Positive results are unconfirmed and should not be used fornon-medical purposes. FENTANYL URINE Not Detected Not Detect [facility] Comment:Fentanyl cut-off is 1 ng/mL.Positive results are unconfirmed and should not be used fornon-medical purposes. Oxycodone Urine Screen Not Detected Not Detect ng/mL [facility] Comment:Oxycodone cut-off is 100 ng/mL.Positive results are unconfirmed and should not be used fornon-medical purposes. Buprenorphine Screen Not Detected Not Detect ng/mL [facility] Comment:Buprenorphine cut-of f is 5 ng/mL.Positive results are unconfirmed and should not be used fornon-medical purposes. Urine (Urine, Random) 06/02/2024 9:29 AM EST 06/02/2024 10:52 AM EST Curtis Chavez PMHNP LAB URINE ORDERABLES Final Re sult [facility] [address] [place] [phone] * (ABNORMAL) Immunoglobulin G Subclasses Panel (05/15/2024 3:30 PM EST) IgG Subclass 1 702 382 - 929 mg/dL [facility] IgG Subclass 2 304 241 - 700 mg/dL [facility] IgG Subclass 3 37 22 - 178 mg/dL [facility] IgG Subclass 4 92.2(A) 4 - 86 mg/dL [facility] Immunoglobulin G, Serum 1172 600 - 1640 mg/dL [facility] Comment:THIS TEST WAS PERFOR MED AT:[facility] [address] [phone] AMAYA MD 05/15/2024 3:30 PM EST 05/15/2024 3:30 PM EST Generic External Data Provider LAB BLOOD ORDERAB LES Final Result Performing Organization Address [facility] de Phone Number [facility] [address] [place] [phone] * (ABNORMAL) Immunoglobulins, Quantitative, IgA, IgG, IgM (05/15/2024 3:30 PM EST) IMMUNOGLOBULIN G 1274 600 - 1640 mg/dL [facility] IMMUNOGLOBULIN A 542(A) 47 - 310 mg/dL [facility] Immunoglobulin M 277 50 - 300 mg/dL [facility] Comment:THIS TEST WAS PERFOR MED AT:[facility] [address] [phone] AMAYA MD 05/15/2024 3:30 PM EST 05/15/2024 3:30 PM EST Generic External Data Provider LAB BLOOD ORDERAB LES Final Result Performing Organization Address [facility] de Phone Number [facility] [address] [place] [phone] * CT Chest w/o Contrast (05/12/2024 9:03 AM EST) Anatomical Region Laterality Modality Body, Chest Computed Tomogra phy 05/12/2024 9:03 AM EST Narrative 05/12/2024 9:54 AM EST ? [facility] [facility] ?[address] ?[place] [address] ? CT Scan Report ? Signed ? Patient: Matt,Amadeo ?MR#: [id number] ? : 1985 ?Acct:[id number] ? Age/Sex: 38 / M ?ADM Date: 05/12/24 ? Loc: HO.CT ? Attending Dr: Samantha Davis ACCOUNT DEVELOPER ? Ordering Physician: Samantha Davis NP ?? Date of Service: 05/12/24 ?? Procedure(s): CT chest wo IV con ?? Accession Number(s): [id number] ? cc: Roma Bender ACCOUNT DEVELOPER; Samantha Davis NP ? Report Number: ?? [id number]: Total DLP = ??307.00 mGy-cm ?? EXAMINATION: [...] DLP: 307 mGy centimeter. ? FINDINGS: ? EXPERT WITNESS: Large body habitus. No hyperinflation. ? LUNGS: [...] in OV> ? 05/12/24 0951 ? DD/ ? TD/TT: 05/12/24927 ? Teacher Of The Emotionally Disturbed: ? Procedure Note Ramiro, Carroll - 05/12/[address] [place] [address] [address] Scan Report Signed Patient: Yaniv Gutierrez R#: [id number] : 1985Acct:[id number] Age/Sex: 38 / MADM Date: 05/12/24 Loc: HO.CT Attending Dr: Samantha Davis NP Ordering Physician: Samantha Davis NP Date of Service: 05/12/24 Procedure(s): CT chest wo IV con Accession Number(s): [id number] cc: Roma Bender ACCOUNT DEVELOPER; Samantha Davis NP Report Number: [id number]: Total DLP = 307.00 mGy-cm EXAMINATION: CT [...] reconstruction technique. DLP: 307 mGy centimeter. FINDINGS: EXPERT WITNESS: Large body habitus. No hyperinflation. LUNGS: Small [...] Tyrese Sanchez MDin OV> 05/12/24 0951 DD/ 09 TD/TT: 05/12/24927 [facility] Of [employer] Emotionally Disturbed: [facility] External Provider IMG CT PROCEDURES Final Result * (ABNORMAL) Lipid Panel, Standard (06/08/2023 8:20 AM EST) Triglycerides 236(H) <150 mg/dL [facility] Comment:Desirable Triglyceri de: less than 150 mg/dLBorderline High Triglyceride 150-199 mg/dLHigh Triglyceride: 200-499 mg/dLVery High Triglyceride: greater than or equal to 5OO mg/dL Cholesterol 137 <200 mg/dL [facility] Comment:Desirable Cholestero l: less than 200 mg/dLBorderline High Cholesterol: 200-239 mg/dLHigh Cholesterol: greater than 239 mg/dL LDL Cholesterol Calculated 57 <100 mg/dL [facility] Comment:Desirable LDL: less than 100 mg/dLNear Optimal/Above Optimal LDL: 110- 129 mg/dLBorderline High LDL: 130-159 mg/dLHigh LDL: 160-189 mg/dLVery High LDL: greater than or equal to 190 mg/dL HDL Cholesterol 33(L) >40 mg/dL [facility] Comment:Desirable HDL: great er than 40 mg/dL Note: This HDL assay may give artificially low results in patients with liver disease. Blood Venous blood specimen / Unknown 06/08/2023 8:20 AM EST 06/08/2023 11:33 AM EST Yesica Ibarra MD LAB BLOOD ORDERAB LES Final Result [facility] [address] [place] [phone] from Last 3 Months or Most Recently Relevant to Health Maintenance [place] [address] [place] [address] C3 [facility] STAND ADULT Care Teams Supervisor Print Line Relationship Specialty Start Date End Date Lesia Tran MD [address] [place] [address] PCP - General Internal Medicine 12/07/23
--- OUTSIDE RECORDS SUMMARY | 2024-06-21 14:07 | XMS_ITS | Encounter Summary ---
Author Organization [employer] Address [address] [facility] [address] [facility] [address] [place] [address] Care Team Providers Care Business Attorney Name Role Phone Lesia Tran MD Primary Care Provider + Encounter Details Date Type Department Care Team (Latest Contact Info) Description 06/16/2024 Travel Social History Tobacco Use Types Packs/Day [...] Description 07/03/2024 10:00 AM EDT Office Visit [facility] ADULT D[facility] [address] [place] [address] Trenton Wilkerson DDS [address] [place] [address] 08/24/2024 9:00 AM EDT Office Visit [facility] [address] [place] [address] Lesia Tran MD [address] [place] [address] documented as of this encounter Visit Diagnoses Not on filedocumented in this encounter Additional Health Concerns Assessment Noted Time PHQ-9 Depression Total Score: 21 024 2:23 PM EST documented as of this encounter Care Teams Business Attorney Relationship Specialty Start Date End Date Lesia Tran MD [address] [place] [phone] PCP - General Internal Medicine 12/07/23 documented as of this encounter
--- OUTSIDE RECORDS SUMMARY | 2024-06-21 14:07 | XMS_ITS | Encounter Summary ---
Author Organization [employer] Address [address] [facility] 7t [place] [address] Care Team Providers Care Parking Enforcement Manager Name Role Phone Lesia Tran MD Primary Care Provider + Reason for Visit * Reason Onset Date Comments Care Management 06/05/2024 [facility]- chart revi ew Encounter Details Date Type Department Care Team (Late st Contact Info) Description 06/05/2024 Telephone [facility] MED[facility] [address] [place] [address] Lesia Tran MD [address] [place] [address] Care Management ([facility]- chart review) Social History Tobacco Use Types [...] include psychiatry, behavioral health, sleep medicine, cardiology, [facility] pulmonology, [facility] dental, [facility] GI, . ED visits within the last 12 months include [facility] 03/11/24-03/14/24, [facility] 01/05/24, [facility] 11/21/23, [facility] 09/17/23. Last appointment in PCP office on 02/11/24. Next appointment scheduled for 06/15/24. documented in this encounter Plan of Treatment Upcoming Encounters Date Type Department Care Team (Late st Contact Info) Description 07/03/2024 10:00 AM EDT Office Visit [facility] ADULT DENTAL [address] [place], [place] [phone] Trenton Wilkerson DDS [address] [place] [address] 08/24/2024 9:00 AM EDT Office Visit [facility] MEDICINE [address] [place] [address] Lesia Tran MD [address] [place] [address] documented as of this encounter Visit Diagnoses Not on filedocumented in this encounter Additional Health Concerns Assessment Noted Time PHQ-9 Depression Total Score: 21 024 2:23 PM EST documented as of this encounter Care Teams Parking Enforcement Manager Relationship Specialty Start Date End Date Lesia Tran MD [address] [place] [address] PCP - General Internal Medicine 12/07/23 documented as of this encounter
--- OUTSIDE RECORDS SUMMARY | 2024-06-21 14:07 | XMS_ITS | Encounter Summary ---
Author Organization [employer] Address [address] [facility] [address]t [place] [address] Care Team Providers Care Director Of Music Name Role Phone Lesia Tran MD Primary Care Provider + Reason for Visit * Reason Onset Date Comments Results 05/24/2024 Encounter Details Date Type Department Care Team ([facility] st Contact Info) Description 05/24/2024 Telephone [facility] MED[facility]INE [address] [place] [address] Lesia Tran MD [address] [place] [address] Results Social History Tobacco Use Types Packs/Day [...] they received CT scan results. Spoke to Radah who confirmed results were received. * Telephone Encounter - Nahomy Velazco [place] - 05/24/2024 11:10 AM EST ----- Message from Lesia Tran MD sent at 05/16/2024 3:22 PM EST ----- CT scan of the chest on 05/12/2024 ordered by Samantha Davis CORRECTIONAL OFFICER CHIEF, reviewed. Please call pulmonologyoffice where she works and make sure that they had the results will schedule follow-up for patient if needed. documented in this encounter Plan of Treatment Upcoming Encounters Date Type Department Care Team (Late st Contact Info) Description 07/03/2024 10:00 AM EDT Office Visit [facility] ADULT DENTAL [address] [place], [place] [phone] Trenton Wilkerson DDS [address] [place], [place] [phone] 08/24/2024 9:00 AM EDT Office Visit [facility] MED[facility] [address] [place], [place] [phone] Lesia Tran MD [address] [place], [place] [phone] documented as of this encounter Visit Diagnoses Not on filedocumented in this encounter Additional Health Concerns Assessment Noted Time PHQ-9 Depression Total Score: 21 024 2:23 PM EST documented as of this encounter Care Teams Director Of Music Relationship Specialty Start Date End Date Lesia Tran MD [address] [place] [phone] PCP - General Internal Medicine 12/07/23 documented as of this encounter
== END 2024-06-21 12:12 | disposition home or self-care (01) ==
LOC: HO.HGI 11:29
PROVIDERS: PCP Nurse Practitioner Family; Visit Provider Nurse Practitioner Family
DX: K86.81 Exocrine pancreatic insufficiency (principal); K21.9 Gastro-esophageal reflux disease without esophagitis; R10.13 Epigastric pain; K59.01 Slow transit constipation; K44.9 Diaphragmatic hernia without obstruction or gangrene
CPT/HCPCS: 99214

== ENCOUNTER → 2024-06-21 11:28 | Outpatient (BNVA) | payer MEDICAID, SELFPAY | PROVIDERS: PCP Nurse Practitioner Family; Visit Provider Nurse Practitioner Family | DX: K86.81 Exocrine pancreatic insufficiency (principal); K21.9 Gastro-esophageal reflux disease without esophagitis; K59.01 Slow transit constipation; K44.9 Diaphragmatic hernia without obstruction or gangrene; R10.13 Epigastric pain | CPT/HCPCS: 99212 ==

== ENCOUNTER 2024-06-26 14:50 | Inpatient (IN) | payer MEDICAID, OTHER, SELFPAY ==
[2024-06-26 15:29] VITALS: BP 130/78; BP 146/58; PULSE 108; PULSE 84; RESP 22; TEMP 36.9; O2SAT 97; BMI 38.3
[2024-06-26 15:37] VITALS: BP 130/78; PULSE 84; RESP 22; TEMP 36.9; O2SAT 97
--- NOTE | 2024-06-26 15:56 | PC.NURSE ---
Pt comes to ED today via EMS for thoughts of ending his life d/t on going chronic GI pain. Pt reports he is tired of dealing with his pain and feels it would be better if he is . States he would use a knife or a gun. Pt reports ongoing GI distress with n/v, sweats and chills. Pt reports extreme anxiety and is asking for medication to help. A&Ox3, VSS, afebrile. Pt is significantly restless and anxious. Pt paces about the pod and presents with agitation. ED provider at bedside now. Awaiting new orders.
--- NOTE | 2024-06-26 16:07 | ED_ITS ---
HPI - Psych General Chief Complaint: Psychiatric Symptoms Stated Complaint: PSYCH,SI Time Seen by Provider: 06/26/24 15:05 Source: patient Mode of arrival: ambulatory Limitations: no limitations History of Present Illness ED Provider: Dr. Les Blanchard HPI Narrative: 39-year-old male with a history of opiate use disorder, on methadone, aspiration pneumonia, chronic abdominal pain, asthma who presents emergency department by ambulance for evaluation of chronic abdominal pain suicidal ideation. Patient states that he was constant pain in his abdomen and he was had no relief. He states that he was to the point where he wants to in his life secondary to the pain. He also states he was having he was which cause him to get very agitated and sweaty. The patient does have a history of opiate use disorder and he was on methadone. He states that he took 125 mg of methadone today and he does not think that he was withdrawing. The patient denied nausea or vomiting but he states that he was subjective the patient fever and chills. The patient states he does have a plan to kill himself with the either a knife or a gun. Patient states he was not own a gun but he does have access to knives. Patient states that his to constant, pressure-like pain in his right upper quadrant area and it does radiate to his back. Related Data Home Medications ?Medication ?Instructions ?Recorded ?Confirmed albuterol sulfate 90 mcg/actuation 2 puff inhalation Q4H PRN wheezing 09/02/23 05/29/24 aerosol inhaler (Ventolin HFA) aspirin 81 mg tablet,delayed 81 mg PO DAILY 09/02/23 05/29/24 release bupropion HCl 150 mg 24 hr tablet, 150 mg PO DAILY 09/02/23 05/29/24 extended release mirtazapine 15 mg tablet 15 mg PO BEDTIME 09/02/23 05/29/24 quetiapine 50 mg tablet 50 mg PO BID 09/02/23 05/29/24 acetaminophen 650 mg 650 mg PO Q8H PRN moderate pain 03/11/24 05/29/24 tablet,extended release methadone 10 mg/mL oral 125 mg PO DAILY 03/11/24 05/29/24 concentrate (Methadone Intensol) polyethylene glycol 3350 17 17 g PO DAILY PRN Constipation 03/11/24 05/29/24 gram/dose oral powder (Miralax) Previous Rx's ?Medication ?Instructions ?Recorded esomeprazole magnesium 40 mg 40 mg PO DAILY #30 caps 01/14/24 capsule,delayed release (Nexium) famotidine 40 mg tablet 40 mg PO BEDTIME 90 days #90 tabs 01/14/24 gpgvwk-wbhvboly-iohukhj 2 cap PO TID #90 caps 04/06/24 36,000-114,000-180,000 unit capsule,delay rel (Creon) magnesium oxide 400 mg PO BEDTIME #30 caps 04/14/24 sennosides 8.6 mg tablet (Natural 17.2 mg (2 x 8.6 mg) PO BEDTIME 05/02/24 Senna Laxative) constipation #180 tabs fluticasone furoate 200 1 inh inhalation DAILY #60 ea 05/10/24 mcg-vilanterol 25 mcg/dose inhalation powder (Breo Ellipta) ondansetron HCl 4 mg tablet 4 mg PO Q8H PRN nausea and 05/31/24 vomiting #10 tabs Allergies Allergy/AdvReac Type Severity Reaction Status Date / Time Penicillins [PENICILLINS] Allergy Unknown RASH Verified 06/26/24 15:33 Review of Systems 2 Review of Systems: Yes all other systems are reviewed and are negative [facility] Past Medical History [facility] Narrative: social history: Patient denies tobacco or alcohol use. He does vape marijuana. Medical History Exocrine pancreatic insufficiency Polysubstance abuse No known health problems Social History Social History Household Members: Family Housing: Condominium Do you presently have visiting nurse or other home services: No Alcohol intake: former Patient Tobacco Use Status: Former Tobacco user Smoked in Last 30 Days: Yes Use of substances other than those prescribed or required for medical reasons: Yes Substance Use Type: Marijuana Advance Directives: No Advance Directives Information Provided: Yes Do you have a plan to hurt others: No Plan service: No Physical Exam 2 Vital Signs: Vital Signs: Last Vital Signs Temp 98.5 F 06/26/24 15:37 Pulse 84 06/26/24 15:37 Resp 22 H 06/26/24 15:37 BP 130/78 06/26/24 15:37 Pulse Ox 97 06/26/24 15:37 O2 Del Method Room Air 06/26/24 15:37 BMI result Body Mass Index 38.3 Vital signs revealed an elevated respiratory rate of 22 and an elevated blood pressure of 130/78 Exam: General: Awake, alert in no distress Head: Normocephalic, atraumatic EENT: PERRL, Lids normal, sclera normal, conjunctiva normal, nose normal , ears normal, throat without erythema or exudates Neck: Supple, no adenopathy Lung: breath sounds symmetric, no wheezing, rales or rhonchi Chest: symmetric movement, nontender Heart: regular rate and rhythm, normal S1, S2 no murmurs or rubs Abdomen: soft,Mild to moderate epigastric and right upper quadrant tenderness, nondistended, normal bowel sounds Back: no vertebral tenderness, no CVAT Extremities: no deformities, moves all extremities symmetrically Neuro: Awake, alert, oriented, normal speech, cranial nerves intact, moves all extremities symmetrically Psych: patient appears to be anxious but he was cooperative Medications Administered Discontinued Medications Generic Name Dose Route Start Last Admin Trade Name Kwakuq PRN Reason Stop Dose Admin Lorazepam 2 mg 06/26/24 16:07 06/26/24 16:25 Lorazepam 1 Mg Tablet PO 06/26/24 16:08 2 mg ONCE STA Administration Olanzapine 10 mg 06/26/24 16:07 06/26/24 16:25 Olanzapine 10 Mg Tablet PO 06/26/24 16:08 10 mg ONCE ONE Administration Medical Decision Making Medical Decision Making [facility] Narrative: 39-year-old male with a history of opiate use disorder, on methadone, aspiration pneumonia, chronic abdominal pain, asthma who presents emergency department by ambulance for evaluation of chronic abdominal pain and suicidal ideation. patient states he was frustrated by his chronic abdominal pain and he was now suicidal. He has a plan to kill himself with either a knife for a done. Physical examination did reveal abdominal tenderness which is consistent with His chronic abdominal pain. He also was very anxious and agitated. Differential diagnosis: Includes but is not limited to Chronic abdominal pain, electrolyte abnormalities, anemia, suicidal ideation, Course: My independent interpretation patient's laboratory evaluation is as follows: WBC was elevated 11,600. Microcytic anemia with an H&H of 11.6 and 37.2 CV of 77. Platelet count was normal. CMP was normal. TSH was normal. Lipase was normal. Urinalysis was negative. Drug screen urine was positive for methadone and marijuana. COVID-19, RSV and influenza were negative. He was anxious and was medicated with lorazepam 2 mg orally and Zyprexa 10 mg orally with good effect. The patient was evaluated by the care team. Given his presentation of suicidal ideation with a plan he was placed on a Section 12 and will be in in-patient bed search. 21:43 Start physician observation Patient will remain in the emergency department Behavioral Health Unit until disposition can be determined or until patient's symptoms improve over time. At the end of my shift, patient's care was turned over to my colleague, Dr. Brown. Admission/Observation Consideration of admission/observation: Escalation of care including admission/observation considered (Yes) Lab Data MDM Lab Attestation statement: I reviewed the patient's lab results. 06/26/24 17:08 06/26/24 17:08 Labs: Lab Results 06/26/24 06/26/24 Range/Units 17:08 17:18 WBC 11.6 H (4.8-10.8) X10*3/uL RBC 4.83 (4.60-5.80) X10*6/uL Hgb 11.7 L (14.0-18.0) g/dl Hct 37.2 L (42.0-52.0) % MCV 77.0 L (80.0-98.0) fL MCH 24.2 L (27.0-33.0) pg MCHC 31.5 (31.0-36.0) g/dl RDW 14.6 (11.0-16.0) % Plt Count 264 (160-400) X10*3/uL MPV 8.9 L (9.4-12.4) fL Immature Gran % (Auto) 0.5 H (0.0-0.4) % Neut % (Auto) 82.4 H (45-73) % Lymph % (Auto) 10.7 L (20-40) % [place] % (Auto) 5.5 (2-11) % Eos % (Auto) 0.6 (0-4) % Baso % (Auto) 0.3 (0-2) % Lymph # (Auto) 1.2 (1.2-4.9) X10*3/uL [place] # (Auto) 0.6 (0.1-1.2) X10*3/uL Eos # (Auto) 0.1 (0.0-0.4) X10*3/uL Baso # (Auto) 0.0 (0.0-0.2) X10*3/uL Abs Immat Gran (auto) 0.06 H (0.00-0.03) X10*3/uL Absolute Neuts (auto) 9.6 H (2.0-8.3) x10*3/uL Absolute Nucleated RBC 0.000 (0.0-0.012) X10*3/uL Nucleated RBC % (auto) 0.0 (0.0-0.2) /100WBC Sodium 139 (135-145) mmol/L Potassium 4.2 (3.3-5.1) mmol/L Chloride 106 (96-108) mmol/L Carbon Dioxide 27 (22-29) mmol/L Anion Gap 10 L (12-20) BUN 10 (9-16) mg/dL Creatinine 0.89 (0.5-1.4) mg/dL Estim Creat Clear Calc 126.3 Estimated GFR > 60 Random Glucose 106 (60-115) mg/dL Calcium 8.6 (8.4-10.2) mg/dL Magnesium 1.9 (1.6-2.6) mg/dL Total Bilirubin 0.3 (0.0-1.0) mg/dL AST 19 (5-37) U/L ALT 19 (0-40) U/L Alkaline Phosphatase 94 (39-117) U/L Total Creatine Kinase 52 (38-174) U/L Total Protein 7.1 (6.5-8.0) g/dL Albumin 3.7 (3.5-5.0) g/dL Lipase 9 (8-78) U/L TSH 0.83 (0.32-4.0) uIU/mL Urine Color Yellow Urine Appearance Clear Urine pH 8.0 (5.0-9.0) Ur Specific [place] 1.025 (1.005-1.025) Urine Protein Trace (Neg-Trace) mg/dL Urine Glucose (UA) Negative (Negative) mg/dL Urine Ketones Trace (Negative) mg/dL Urine Blood Negative (Negative) Urine Nitrite Negative (Negative) Ur Leukocyte Esterase Negative (Negative) Urine Opiates Screen Not Detected (Not Detect) Ur Buprenorphine Scrn Not Detected (Not Detect) ng/mL Ur Oxycodone Screen Not Detected (Not Detect) ng/mL Urine Methadone Screen Positive H (Not Detect) ng/mL Urine Fentanyl Screen Not Detected (Not Detect) Ur Barbiturates Screen Not Detected (Not Detect) Ur Phencyclidine Scrn Not Detected (Not Detect) Ur Amphetamines Screen Not Detected (Not Detect) U Benzodiazepines Scrn Not Detected (Not Detect) Urine Cocaine Screen Not Detected (Not Detect) U Marijuana (THC) Screen POSITIVE H (Not Detect) Ethyl Alcohol < 10 mg/dL Influenza Type A (PCR) NEGATIVE (Negative) Influenza Type B (PCR) NEGATIVE (Negative) RSV RNA Qual (PCR) NEGATIVE (Negative) SARS-CoV-2 RNA (RT-PCR) NEGATIVE (Negative) Chronic Conditions Patient?s care impacted by: Other ( asthma, polysubstance use disorder) Discharge Plan Discharge Clinical Impression: Suicidal ideation, Chronic abdominal pain Patient Disposition: Still a Patient Prescriptions: No Action Creon 36,000-114,000- 180,000 unit capsule,delayed release(DR/EC) 2 cap PO TID Qty: 90 2RF Rx Instructions: administer with meals and/or snacks sennosides [Natural Senna Laxative] 8.6 mg tablet 17.2 mg PO BEDTIME Qty: 180 1RF fluticasone furoate-vilanterol [Breo Ellipta] 200-25 mcg/dose blister with device 1 inh inhalation DAILY Qty: 60 2RF acetaminophen 650 mg tablet extended release 650 mg PO Q8H PRN (Reason: moderate pain) polyethylene glycol 3350 [Miralax] 17 gram/dose powder 17 g PO DAILY PRN (Reason: Constipation) methadone [Methadone Intensol] 10 mg/mL Concentrate 125 mg PO DAILY ondansetron HCl 4 mg tablet 4 mg PO Q8H PRN (Reason: nausea and vomiting) Qty: 10 0RF quetiapine 50 mg tablet 50 mg PO BID aspirin 81 mg tablet,delayed release (DR/EC) 81 mg PO DAILY albuterol sulfate [Ventolin HFA] 90 mcg/actuation HFA aerosol inhaler 2 puff inhalation Q4H PRN (Reason: wheezing) bupropion HCl 150 mg tablet extended release 24 hr 150 mg PO DAILY mirtazapine 15 mg tablet 15 mg PO BEDTIME esomeprazole magnesium [Nexium] 40 mg capsule,delayed release(DR/EC) 40 mg PO DAILY Qty: 30 5RF famotidine 40 mg tablet 40 mg PO BEDTIME 90 Days Qty: 90 3RF magnesium oxide 400 mg magnesium capsule 400 mg PO BEDTIME Qty: 30 2RF Interventions: [place]-Suicide Risk Severity Scale Last Done: 06/26/24 15:37 Print Language: Yi
[2024-06-26] MEDS: LORazepam 1 MG TABLET 2 MG PO (16:25)
[2024-06-26] MEDS: OLANZapine 10 MG TABLET PO (16:25)
[2024-06-26 17:14] LABS: MANUAL DIFF FLAG NO
[2024-06-26 17:16] LABS: Basophils Percent Auto 0.3 % (0-2); Eosinophils Absolute Auto 0.1 X10*3/uL (0.0-0.4); Eosinophils Percent Auto 0.6 % (0-4); Hematocrit 37.2 % (42.0-52.0); Hemoglobin 11.7 g/dl (14.0-18.0); Imm Gran Abs Auto 0.06 X10*3/uL (0.00-0.03); Imm Gran Pct Auto 0.5 % (0.0-0.4); Lymphocytes Absolute Auto 1.2 X10*3/uL (1.2-4.9); Lymphocytes Percent Auto 10.7 % (20-40); Mean Corpuscular HGB Conc 31.5 g/dl (31.0-36.0); Mean Corpuscular Hemoglobin 24.2 pg (27.0-33.0); Mean Platelet Volume 8.9 fL (9.4-12.4); Monocytes Absolute Auto 0.6 X10*3/uL (0.1-1.2); Monocytes Percent Auto 5.5 % (2-11); Neutrophils Absolute Auto 9.6 x10*3/uL (2.0-8.3); Neutrophils Percent Auto 82.4 % (45-73); Platelet Count 264 X10*3/uL (160-400); Red Blood Count 4.83 X10*6/uL (4.60-5.80); Red Cell Distribution Width 14.6 % (11.0-16.0); White Blood Count 11.6 X10*3/uL (4.8-10.8)
[2024-06-26 17:31] LABS: Appearance Urine Clear; Color Urine Yellow; Glucose Urine UA Negative (Negative); Leukocyte Esterase Urine Negative (Negative); Nitrite Urine Negative (Negative); Specific Gravity - Urine 1.025 (1.005-1.025); Urine Blood Negative (Negative); Urine Ketones Trace mg/dL (Negative); Urine Protein Trace mg/dL (Neg-Trace)
[2024-06-26 17:42] LABS: Alanine Aminotransferase 19 U/L (0-40); Albumin Level 3.7 g/dL (3.5-5.0); Alkaline Phosphatase 94 U/L (39-117); Anion Gap 10 (12-20); Aspartate Amino Transferase 19 U/L (5-37); Bilirubin Total 0.3 mg/dL (0.0-1.0); Blood Urea Nitrogen 10 mg/dL (9-16); Calcium 8.6 mg/dL (8.4-10.2); Carbon Dioxide 27 mmol/L (22-29); Chloride 106 mmol/L (96-108); Creatinine Clr Calc Pharmacy 126.3; Estimated Glomerular Filt Rate > 60; Ethanol < 10 mg/dL; Glucose Random 106 mg/dL (60-115); Lipase 9 U/L (8-78); Magnesium 1.9 mg/dL (1.6-2.6); Potassium 4.2 mmol/L (3.3-5.1); Sodium 139 mmol/L (135-145); Total Protein 7.1 g/dL (6.5-8.0)
[2024-06-26 17:46] LABS: Amphetamine Screen Urine Not Detected (Not Detect); Barbiturates, Urine Not Detected (Not Detect); Benzodiazepines Screen Urine Not Detected (Not Detect); Buprenorphine Scr Not Detected (Not Detect); Cannabinoid Screen Urine POSITIVE (Not Detect); Cocaine Screen Urine Not Detected (Not Detect); Fentanyl, urine Not Detected (Not Detect); Methadone Screen, Urine Positive (Not Detect); Opiate Screen Urine Not Detected (Not Detect); Oxycodone Screen Urine Not Detected (Not Detect); Phencyclidine Screen Urine Not Detected (Not Detect)
[2024-06-26 17:48] LABS: TSH reflex Free T4 0.83 uIU/mL (0.32-4.0)
[2024-06-26 18:06] LABS: Influenza A PCR NEGATIVE (Negative); Influenza B PCR NEGATIVE (Negative); Resp Syncy Virus RNA Qual PCR NEGATIVE (Negative); SARS COV2 PCR INHOUSE NEGATIVE (Negative)
--- NOTE | 2024-06-27 | ECG_ITS ---
Test Reason : check qc Blood Pressure : */* mmHG Vent. Rate : 74 BPM Atrial Rate : 74 BPM P-R Int : 134 ms QRS Dur : 92 ms QT Int : 416 ms P-R-T Axes : -9 9 8 degrees QTcB Int : 461 ms Normal sinus rhythm Normal ECG When compared with ECG of 15-Jun-2024 14:37, No significant change was found Referred By: Les Blanchard Electronically Signed By: SARAH ZAMBRANO MD
[2024-06-27 02:25] VITALS: BP 141/81; PULSE 76; RESP 18; TEMP 37.1; O2SAT 96
--- NOTE | 2024-06-27 08:49 | HE.PHANOTE ---
Addendum entered by Isabella Bynum [facility] 06/27/24 08:59: he last took it yesterday morning Original Note: METHADONE Pt last received 125mg on 06/23/24 @ 0603 with 27 take home bottles at [facility] ([phone]) per ROXANN Morillo.
[2024-06-27] MEDS: Famotidine 20 MG TABLET 40 MG PO ×2 (09:04→20:12)
[2024-06-27] MEDS: methADONE HCl 20 MG/2 ML ORAL.CONC 125 MG PO (09:05)
[2024-06-27] MEDS: LORazepam 1 MG TABLET PO (09:05)
[2024-06-27] MEDS: Aspirin Enteric Coated 81 MG TABLET.DR PO (09:05)
[2024-06-27] MEDS: QUEtiapine Fumarate 50 MG TABLET PO ×2 (09:05→20:12)
--- NOTE | 2024-06-27 09:47 | PHA.MEDREC ---
Pharmacy Consult ? Medication Reconciliation Pharmacy has reviewed the medication reconciliation done by RN. Med list matches claims except for omission of Fluoxetine, however patient picked up at 30 day supply more than 30 days ago. RN used patient as source.
[2024-06-27] MEDS: Fluticasone/Vilanterol 200/25 BLST.W.DEV 1 PUFF INHALE (13:07)
[2024-06-27 14:15] VITALS: BP 128/84; PULSE 76; RESP 16; TEMP 36.5; O2SAT 93
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
[2024-06-27 16:07] VITALS: BMI 46.5
--- NOTE | 2024-06-27 16:30 | PC.NURSE ---
Yaniv? was admitted to M3 at 1409 from [facility] Pod on CV for treatment of mood disorder with SI. Precipitant of admission include longstanding complex medical issues affecting his ability to function and which he feels hopeless about ever getting better.? On admission to the unit he reports depression and anxiety and verbalizes hopelessness. He displays irritable affect. He denies hallucinations and does not appear internally preoccupied. Thought process is organized.? Yaniv reports that he experiences daily episodes of profuse sweating and GI pain. He reports that he stays at home for fear of having episodes while he is out. He states he is unable to work because he is ?always sick.? Appetite is poor per pt . He says he eats only soup. Later he says he eats a lot of junk food. He has an upcoming appointment with endocrinology at [facility] to discuss Zebound.? Sleep is poor per pt. He has dx sleep apnea but does not use cpap. ? I gave it back because I was getting my teeth out. He says he uses marijuana by vape to help him relax.? Pt has a longstanding history of substance issues including heroin and cocaine. He has been on methadone for several years through [facility] and gets monthly take home doses. He reports compliance with methadone. Medical Issues include morbid obesity, Exocrine Pancreatic Insufficiency ( for which he takes creon), chronic GI discomfort, history of aspiration pneumonia. He accesses medical and psychiatric care through [facility] where he has providers.? Goal of admission is to treat his anxiety and depression.? Safety Checks are q 15 minutes.
[2024-06-27 16:55] LABS: Alanine Aminotransferase 18 U/L (0-40); Albumin Level 3.8 g/dL (3.5-5.0); Alkaline Phosphatase 100 U/L (39-117); Anion Gap 11 (12-20); Aspartate Amino Transferase 20 U/L (5-37); Bilirubin Total 0.4 mg/dL (0.0-1.0); Blood Urea Nitrogen 13 mg/dL (9-16); Calcium 8.9 mg/dL (8.4-10.2); Carbon Dioxide 27 mmol/L (22-29); Chloride 105 mmol/L (96-108); Creatinine Clr Calc Pharmacy 136.2; Estimated Glomerular Filt Rate > 60; Glucose Random 102 mg/dL (60-115); Potassium 3.9 mmol/L (3.3-5.1); Sodium 139 mmol/L (135-145); Total Protein 7.2 g/dL (6.5-8.0)
[2024-06-27] MEDS: Lipase/Prot/Amylase 24/76/120K 1 CAP CAPSULE.DR 3 CAP PO (17:12)
[2024-06-27 20:00] VITALS: BP 153/86; PULSE 78; RESP 16; TEMP 36.4; O2SAT 93
[2024-06-27] MEDS: Mirtazapine 15 MG TABLET PO (20:12)
[2024-06-27] MEDS: Magnesium Oxide 400 MG TABLET PO (20:13)
[2024-06-27] MEDS: Sennosides 8.6 MG TABLET 17.2 MG PO (20:13)
[2024-06-27] MEDS: OLANZapine 5 MG TABLET PO (20:18)
[2024-06-28] MEDS: Acetaminophen 325 MG TABLET 650 MG PO (06:11)
[2024-06-28] MEDS: Omeprazole 20 MG CAPSULE.DR PO (06:12)
[2024-06-28] MEDS: Fluticasone/Vilanterol 200/25 BLST.W.DEV 1 PUFF INHALE (07:56)
[2024-06-28] MEDS: Aspirin Enteric Coated 81 MG TABLET.DR PO (07:57)
[2024-06-28] MEDS: QUEtiapine Fumarate 50 MG TABLET PO ×2 (07:57→20:02)
[2024-06-28] MEDS: Lipase/Prot/Amylase 24/76/120K 1 CAP CAPSULE.DR 3 CAP PO ×3 (07:57→16:57)
[2024-06-28 08:00] VITALS: BP 136/80; PULSE 76; RESP 16; TEMP 36.4; O2SAT 94
[2024-06-28] MEDS: methADONE HCl 20 MG/2 ML ORAL.CONC 125 MG PO (08:01)
[2024-06-28] MEDS: polyethylene glycoL 3350 17 GM POWD.PACK PO (08:15)
[2024-06-28 08:43] LABS: Estimated Average Glucose 126 mg/dL; Hemoglobin A1C 135.3307 umol/L
[2024-06-28 08:48] LABS: Cholesterol 146 mg/dL (<200); HDL Cholesterol 41 mg/dL (>40); LDL Cholesterol Calculated 90 mg/dL (<100); Triglycerides 76 mg/dL (<150)
--- NOTE | 2024-06-28 08:59 | P.PNPSI_ITS ---
Subjective Subjective Date of Service: 06/28/24 Reason For Visit: crisis Subjective Notes: Conditional Voluntary Interim History: Patient reports he continues to feel down because of my medical issues ; pt reports he plans on following up with his outpatient medical appointments. He reports sleeping well last night. denies SI/HI/VH/AH. Encouraged to attend groups. Medication Compliance: Yes Side effects from medications: No Attending Groups: Intermittent Mental Status Exam Mental Status Exam Narrative: Pt is alert and oriented; behavior is cooperative and calm; dressed in casual attire; mood is described as anxious and depressed ; eye contact appropriate; Speech is normal rate, volume and not pressured; thought process is organized and goal directed; Thought content is on tx; denies SI/HI/VH/AH. Diagnostics Vital Signs (24Hr): Vital Signs - 24 hr 06/27/24 14:15 06/27/24 20:00 06/28/24 08:00 Temperature 97.7 F 97.6 F 97.6 F Pulse Rate 76 78 76 Respiratory Rate 16 16 16 Blood Pressure 128/84 153/86 H 136/80 Pulse Oximetry 93 93 94 Oxygen Delivery Method Room Air Room Air Room Air 06/28/24 08:00 Temperature 97.6 F Pulse Rate Respiratory Rate Blood Pressure 136/80 Pulse Oximetry 94 Oxygen Delivery Method Room Air BMI result Body Mass Index 46.5 Labs 06/26/24 17:08 06/27/24 16:12 Labs: Laboratory Results - last 48 hr 06/26/24 06/26/24 06/27/24 17:08 17:18 16:12 WBC 11.6 H RBC 4.83 Hgb 11.7 L Hct 37.2 L MCV 77.0 L MCH 24.2 L MCHC 31.5 RDW 14.6 Plt Count 264 MPV 8.9 L Immature Gran % (Auto) 0.5 H Neut % (Auto) 82.4 H Lymph % (Auto) 10.7 L [place] % (Auto) 5.5 Eos % (Auto) 0.6 Baso % (Auto) 0.3 Lymph # (Auto) 1.2 [place] # (Auto) 0.6 Eos # (Auto) 0.1 Baso # (Auto) 0.0 Abs Immat Gran (auto) 0.06 H Absolute Neuts (auto) 9.6 H Absolute Nucleated RBC 0.000 Nucleated RBC % (auto) 0.0 Sodium 139 139 Potassium 4.2 3.9 Chloride 106 105 Carbon Dioxide 27 27 Anion Gap 10 L 11 L BUN 10 13 Creatinine 0.89 0.92 Estim Creat Clear Calc 126.3 136.2 Estimated GFR > 60 > 60 Random Glucose 106 102 Estimat Average Glucose Hemoglobin A1c % Calcium 8.6 8.9 Magnesium 1.9 Total Bilirubin 0.3 0.4 AST 19 20 ALT 19 18 Alkaline Phosphatase 94 100 Total Creatine Kinase 52 Total Protein 7.1 7.2 Albumin 3.7 3.8 Triglycerides Cholesterol LDL Cholesterol, Calc HDL Cholesterol Lipase 9 TSH 0.83 Urine Color Yellow Urine Appearance Clear Urine pH 8.0 Ur Specific [place] 1.025 Urine Protein Trace Urine Glucose (UA) Negative Urine Ketones Trace Urine Blood Negative Urine Nitrite Negative Ur Leukocyte Esterase Negative Urine Opiates Screen Not Detected Ur Buprenorphine Scrn Not Detected Ur Oxycodone Screen Not Detected Urine Methadone Screen Positive H Urine Fentanyl Screen Not Detected Ur Barbiturates Screen Not Detected Ur Phencyclidine Scrn Not Detected Ur Amphetamines Screen Not Detected U Benzodiazepines Scrn Not Detected Urine Cocaine Screen Not Detected U Marijuana (THC) Screen POSITIVE H Ethyl Alcohol < 10 Influenza Type A (PCR) NEGATIVE Influenza Type B (PCR) NEGATIVE RSV RNA Qual (PCR) NEGATIVE SARS-CoV-2 RNA (RT-PCR) NEGATIVE 06/28/24 07:57 WBC RBC Hgb Hct MCV MCH MCHC RDW Plt Count MPV Immature Gran % (Auto) Neut % (Auto) Lymph % (Auto) [place] % (Auto) Eos % (Auto) Baso % (Auto) Lymph # (Auto) [place] # (Auto) Eos # (Auto) Baso # (Auto) Abs Immat Gran (auto) Absolute Neuts (auto) Absolute Nucleated RBC Nucleated RBC % (auto) Sodium Potassium Chloride Carbon Dioxide Anion Gap BUN Creatinine Estim Creat Clear Calc Estimated GFR Random Glucose Estimat Average Glucose 126 Hemoglobin A1c % 6.0 Calcium Magnesium Total Bilirubin AST ALT Alkaline Phosphatase Total Creatine Kinase Total Protein Albumin Triglycerides 76 Cholesterol 146 LDL Cholesterol, Calc 90 HDL Cholesterol 41 Lipase TSH Urine Color Urine Appearance Urine pH Ur Specific [place] Urine Protein Urine Glucose (UA) Urine Ketones Urine Blood Urine Nitrite Ur Leukocyte Esterase Urine Opiates Screen Ur Buprenorphine Scrn Ur Oxycodone Screen Urine Methadone Screen Urine Fentanyl Screen Ur Barbiturates Screen Ur Phencyclidine Scrn Ur Amphetamines Screen U Benzodiazepines Scrn Urine Cocaine Screen U Marijuana (THC) Screen Ethyl Alcohol Influenza Type A (PCR) Influenza Type B (PCR) RSV RNA Qual (PCR) SARS-CoV-2 RNA (RT-PCR) Medications Medications Current Medications Acetaminophen (Acetaminophen 325 Mg Tablet) 650 mg PO Q6H PRN PRN Reason: Headache/Pain, Scale 1-10 Last Admin: 06/28/24 06:11 Dose: 650 mg Al Hydroxide/Mg Hydroxide (Magnesium Hydrox/Alum Hydrox 30 Ml Oral.Susp) 30 ml PO Q6H PRN PRN Reason: Heartburn/Nausea Albuterol Sulfate (Albuterol Sulfate 90 Mcg 8 Gm Inhaler) 2 puff INHALE Q4H PRN PRN Reason: wheezing Lipase/Protease/Amylase (Lipase/Prot/Amylase 24/76/120k 1 Cap Capsule.) 3 cap PO TIDWM [facility] Last Admin: 06/28/24 07:57 Dose: 3 cap Aspirin (Aspirin Enteric Coated 81 Mg Tablet.) 81 mg PO DAILY [facility] Last Admin: 06/28/24 07:57 Dose: 81 mg Famotidine (Famotidine 20 Mg Tablet) 40 mg PO BEDTIME [facility] Last Admin: 06/27/24 20:12 Dose: 40 mg Fluticasone/Vilanterol (Fluticasone/Vilanterol 200/25 Blst.W.Dev) 1 puff INHALE RDAILY [facility] Last Admin: 06/28/24 07:56 Dose: 1 puff Hydroxyzine HCl (Hydroxyzine Hcl 25 Mg Tablet) 25 mg PO Q6H PRN PRN Reason: mild anxiety Lorazepam (Lorazepam 0.5 Mg Tablet) 0.5 mg PO DAILY PRN PRN Reason: severe anxiety Magnesium Hydroxide (Milk Of Magnesia 30 Ml Oral.Susp) 30 ml PO DAILY PRN PRN Reason: Constipation Magnesium Oxide (Magnesium Oxide 400 Mg Tablet) 400 mg PO BEDTIME [facility] Last Admin: 06/27/24 20:13 Dose: 400 mg Methadone HCl (Methadone Hcl 20 Mg/2 Ml Oral.Conc) 125 mg PO DAILY [facility] Last Admin: 06/28/24 08:01 Dose: 125 mg Mirtazapine (Mirtazapine 15 Mg Tablet) 15 mg PO BEDTIME [facility] Last Admin: 06/27/24 20:12 Dose: 15 mg Nicotine (Nicotine 21 Mg Patch.Td24) 21 mg TRANSDERMA DAILY [facility] Last Admin: 06/28/24 08:03 Dose: Not Given Nicotine Polacrilex (Nicotine Polacrilex 2 Mg Gum) 4 mg BUCCAL Q2H PRN PRN Reason: Nicotine Cravings Olanzapine (Olanzapine 5 Mg Tablet) 5 mg PO Q4H PRN PRN Reason: agitation Last Admin: 06/27/24 20:18 Dose: 5 mg Omeprazole (Omeprazole 20 Mg Capsule.Dr) 20 mg PO DAILY@0630 [facility] Last Admin: 06/28/24 06:12 Dose: 20 mg Ondansetron HCl (Ondansetron Odt 4 Mg Tab.Rapdis) 4 mg TRANSLINGU Q8H PRN PRN Reason: nausea and vomiting Polyethylene Glycol (Polyethylene Glycol 3350 17 Gm Powd.Pack) 17 gm PO DAILY PRN PRN Reason: Constipation Last Admin: 06/28/24 08:15 Dose: 17 gm Quetiapine Fumarate (Quetiapine Fumarate 50 Mg Tablet) 50 mg PO BID [facility] Last Admin: 06/28/24 07:57 Dose: 50 mg Senna (Sennosides 8.6 Mg Tablet) 17.2 mg PO BEDTIME [facility] Last Admin: 06/27/24 20:13 Dose: 17.2 mg Trazodone HCl (Trazodone Hcl 50 Mg Tablet) 50 mg PO BEDTIME MRX1 PRN PRN Reason: Insomnia Allergies Allergies Allergy/AdvReac Type Severity Reaction Status Date / Time Penicillins [PENICILLINS] Allergy Unknown RASH Verified 06/26/24 15:33 Assessment & Plan Assessment & Plan (1) MDD (major depressive disorder), recurrent episode, moderate: Status: Acute Code(s): F33.1 - Major depressive disorder, recurrent, moderate (2) Opioid use disorder: Status: Acute Code(s): F11.90 - Opioid use, unspecified, uncomplicated Plan Patient is a 39-year-old male with history of MDD who was brought in by ambulance due to suicidal ideation secondary to chronic stomach pain. Plan: CV 15 minute safety checks Continue home medications Obtain collateral Encourage groups Discharge planning 06/28: Patient reports he continues to feel down because of my medical issues ; pt reports he plans on following up with his outpatient medical appointments. He reports sleeping well last night. denies SI/HI/VH/AH. Encouraged to attend groups. He reports zyprexa being helpful. Patient educated on: diagnosis, medication risk/benefits and therapeutic strategies Reason for continued inpatient stay Substantial Risk for: med/psych decompensation Time Spent With Patient Time: Total time managing care of this patient today _20___ minutes.
[2024-06-28] MEDS: FLUoxetine HCl Oral Solution 20 MG/5 ML SOLUTION PO (10:28)
[2024-06-28 20:00] VITALS: BP 146/91; PULSE 86; RESP 16; TEMP 36.8; O2SAT 94
[2024-06-28] MEDS: Magnesium Oxide 400 MG TABLET PO (20:02)
[2024-06-28] MEDS: Sennosides 8.6 MG TABLET 17.2 MG PO (20:02)
[2024-06-28] MEDS: OLANZapine 5 MG TABLET PO (20:02)
[2024-06-28] MEDS: Famotidine 20 MG TABLET 40 MG PO (20:03)
[2024-06-28] MEDS: Mirtazapine 15 MG TABLET PO (20:04)
[2024-06-28] MEDS: LORazepam 0.5 MG TABLET PO (20:04)
[2024-06-29] MEDS: Omeprazole 20 MG CAPSULE.DR PO (06:38)
[2024-06-29] MEDS: OLANZapine 5 MG TABLET PO ×2 (06:44→20:09)
[2024-06-29] MEDS: hydrOXYzine HCL 25 MG TABLET PO ×2 (06:44→15:52)
[2024-06-29] MEDS: Albuterol Sulfate 90 MCG 8 GM INHALER 2 PUFF INHALE ×2 (06:51→15:51)
[2024-06-29 07:00] VITALS: BMI 46.1
[2024-06-29 07:54] VITALS: BP 135/78; PULSE 89; RESP 16; TEMP 36.4; O2SAT 96
[2024-06-29] MEDS: methADONE HCl 20 MG/2 ML ORAL.CONC 125 MG PO (08:11)
[2024-06-29] MEDS: FLUoxetine HCl 20 MG CAPSULE PO (08:59)
[2024-06-29] MEDS: Aspirin Enteric Coated 81 MG TABLET.DR PO (08:59)
[2024-06-29] MEDS: QUEtiapine Fumarate 50 MG TABLET PO ×2 (09:00→20:09)
[2024-06-29] MEDS: Fluticasone/Vilanterol 200/25 BLST.W.DEV 1 PUFF INHALE (09:10)
[2024-06-29] MEDS: LORazepam 0.5 MG TABLET PO (09:11)
[2024-06-29] MEDS: Lipase/Prot/Amylase 24/76/120K 1 CAP CAPSULE.DR 3 CAP PO ×2 (12:15→17:03)
--- NOTE | 2024-06-29 12:42 | HO.PSYCHPN ---
Subjective Subjective Date of Service: 06/29/24 Reason For Visit: crisis Subjective Notes: Conditional Voluntary Interim History: Patient continues to feel depressed ; pt states he plans on attending groups today with hopes it will help his mood. Pt reports decreased stomach pain since being in hospital. denies SI/HI/VH/AH. Plan to discharge home on Wednesday if he continues to improve. Medication Compliance: Yes Side effects from medications: No Attending Groups: Yes Mental Status Exam Mental Status Exam Narrative: Pt is alert and oriented; behavior is cooperative and calm; dressed in casual attire; mood is described as depressed ; eye contact appropriate; Speech is normal rate, volume and not pressured; thought process is organized and goal directed; Thought content is on tx; denies SI/HI/VH/AH. Diagnostics Vital Signs (24Hr): Vital Signs - 24 hr 06/28/24 20:00 06/29/24 07:54 Temperature 98.3 F 97.6 F Pulse Rate 86 89 Respiratory Rate 16 16 Blood Pressure 146/91 H 135/78 Pulse Oximetry 94 96 Oxygen Delivery Method Room Air Room Air BMI result Body Mass Index 46.1 Labs 06/26/24 17:08 06/27/24 16:12 Labs: Laboratory Results - last 48 hr 06/27/24 06/28/24 16:12 07:57 Sodium 139 Potassium 3.9 Chloride 105 Carbon Dioxide 27 Anion Gap 11 L BUN 13 Creatinine 0.92 Estim Creat Clear Calc 136.2 Estimated GFR > 60 Random Glucose 102 Estimat Average Glucose 126 Hemoglobin A1c % 6.0 Calcium 8.9 Total Bilirubin 0.4 AST 20 ALT 18 Alkaline Phosphatase 100 Total Protein 7.2 Albumin 3.8 Triglycerides 76 Cholesterol 146 LDL Cholesterol, Calc 90 HDL Cholesterol 41 Medications Medications Current Medications Acetaminophen (Acetaminophen 325 Mg Tablet) 650 mg PO Q6H PRN PRN Reason: Headache/Pain, Scale 1-10 Last Admin: 06/28/24 06:11 Dose: 650 mg Al Hydroxide/Mg Hydroxide (Magnesium Hydrox/Alum Hydrox 30 Ml Oral.Susp) 30 ml PO Q6H PRN PRN Reason: Heartburn/Nausea Albuterol Sulfate (Albuterol Sulfate 90 Mcg 8 Gm Inhaler) 2 puff INHALE Q4H PRN PRN Reason: wheezing Last Admin: 06/29/24 06:51 Dose: 2 puff Lipase/Protease/Amylase (Lipase/Prot/Amylase 24/76/120k 1 Cap Capsule.) 3 cap PO TIDWM [facility] Last Admin: 06/29/24 12:15 Dose: 3 cap Aspirin (Aspirin Enteric Coated 81 Mg Tablet.) 81 mg PO DAILY [facility] Last Admin: 06/29/24 08:59 Dose: 81 mg Famotidine (Famotidine 20 Mg Tablet) 40 mg PO BEDTIME [facility] Last Admin: 06/28/24 20:03 Dose: 40 mg Fluoxetine HCl (Fluoxetine Hcl 20 Mg Capsule) 20 mg PO DAILY [facility] Last Admin: 06/29/24 08:59 Dose: 20 mg Fluticasone/Vilanterol (Fluticasone/Vilanterol 200/25 Blst.W.Dev) 1 puff INHALE RDAILY [facility] Last Admin: 06/29/24 09:10 Dose: 1 puff Hydroxyzine HCl (Hydroxyzine Hcl 25 Mg Tablet) 25 mg PO Q6H PRN PRN Reason: mild anxiety Last Admin: 06/29/24 06:44 Dose: 25 mg Lorazepam (Lorazepam 0.5 Mg Tablet) 0.5 mg PO DAILY PRN PRN Reason: severe anxiety Last Admin: 06/29/24 09:11 Dose: 0.5 mg Magnesium Hydroxide (Milk Of Magnesia 30 Ml Oral.Susp) 30 ml PO DAILY PRN PRN Reason: Constipation Magnesium Oxide (Magnesium Oxide 400 Mg Tablet) 400 mg PO BEDTIME [facility] Last Admin: 06/28/24 20:02 Dose: 400 mg Methadone HCl (Methadone Hcl 20 Mg/2 Ml Oral.Conc) 125 mg PO DAILY@0800 [facility] Last Admin: 06/29/24 08:11 Dose: 125 mg Mirtazapine (Mirtazapine 15 Mg Tablet) 15 mg PO BEDTIME [facility] Last Admin: 06/28/24 20:04 Dose: 15 mg Nicotine (Nicotine 21 Mg Patch.Td24) 21 mg TRANSDERMA DAILY [facility] Last Admin: 06/29/24 09:00 Dose: Not Given Nicotine Polacrilex (Nicotine Polacrilex 2 Mg Gum) 4 mg BUCCAL Q2H PRN PRN Reason: Nicotine Cravings Olanzapine (Olanzapine 5 Mg Tablet) 5 mg PO Q4H PRN PRN Reason: agitation Last Admin: 06/29/24 06:44 Dose: 5 mg Omeprazole (Omeprazole 20 Mg Capsule.) 20 mg PO DAILY@0630 [facility] Last Admin: 06/29/24 06:38 Dose: 20 mg Ondansetron HCl (Ondansetron Odt 4 Mg Tab.Rapdis) 4 mg TRANSLINGU Q8H PRN PRN Reason: nausea and vomiting Polyethylene Glycol (Polyethylene Glycol 3350 17 Gm Powd.Pack) 17 gm PO DAILY PRN PRN Reason: Constipation Last Admin: 06/28/24 08:15 Dose: 17 gm Quetiapine Fumarate (Quetiapine Fumarate 50 Mg Tablet) 50 mg PO BID [facility] Last Admin: 06/29/24 09:00 Dose: 50 mg Senna (Sennosides 8.6 Mg Tablet) 17.2 mg PO BEDTIME [facility] Last Admin: 06/28/24 20:02 Dose: 17.2 mg Trazodone HCl (Trazodone Hcl 50 Mg Tablet) 50 mg PO BEDTIME MRX1 PRN PRN Reason: Insomnia Allergies Allergies Allergy/AdvReac Type Severity Reaction Status Date / Time Penicillins [PENICILLINS] Allergy Unknown RASH Verified 06/26/24 15:33 Assessment & Plan Assessment & Plan (1) MDD (major depressive disorder), recurrent episode, moderate: Status: Acute Code(s): F33.1 - Major depressive disorder, recurrent, moderate (2) Opioid use disorder: Status: Acute Code(s): F11.90 - Opioid use, unspecified, uncomplicated Plan Patient is a 39-year-old male with history of MDD who was brought in by ambulance due to suicidal ideation secondary to chronic stomach pain. Plan: CV 15 minute safety checks Continue home medications Obtain collateral Encourage groups Discharge planning 06/28: Patient reports he continues to feel down because of my medical issues ; pt reports he plans on following up with his outpatient medical appointments. He reports sleeping well last night. denies SI/HI/VH/AH. Encouraged to attend groups. He reports zyprexa being helpful. 06/29: Patient continues to feel depressed ; pt states he plans on attending groups today with hopes it will help his mood. Pt reports decreased stomach pain since being in hospital. denies SI/HI/VH/AH. Plan to discharge home on Wednesday if he continues to improve. Continue current tx plan. Patient educated on: diagnosis, medication risk/benefits and therapeutic strategies Reason for continued inpatient stay Substantial Risk for: med/psych decompensation Time Spent With Patient Time: Total time managing care of this patient today _20___ minutes.
[2024-06-29 19:32] VITALS: BP 143/97; PULSE 102; RESP 18; TEMP 36.4; O2SAT 94
[2024-06-29] MEDS: Mirtazapine 15 MG TABLET PO (20:08)
[2024-06-29] MEDS: Magnesium Oxide 400 MG TABLET PO (20:08)
[2024-06-29] MEDS: Famotidine 20 MG TABLET 40 MG PO (20:08)
[2024-06-29] MEDS: Sennosides 8.6 MG TABLET 17.2 MG PO (20:09)
[2024-06-30] MEDS: Omeprazole 20 MG CAPSULE.DR PO (06:34)
[2024-06-30 08:00] VITALS: BP 136/85; PULSE 90; RESP 14; TEMP 36.4; O2SAT 95
[2024-06-30] MEDS: Aspirin Enteric Coated 81 MG TABLET.DR PO (08:17)
[2024-06-30] MEDS: Lipase/Prot/Amylase 24/76/120K 1 CAP CAPSULE.DR 3 CAP PO ×3 (08:17→17:11)
[2024-06-30] MEDS: FLUoxetine HCl 20 MG CAPSULE PO (08:17)
[2024-06-30] MEDS: QUEtiapine Fumarate 50 MG TABLET PO ×2 (08:17→20:15)
[2024-06-30] MEDS: Fluticasone/Vilanterol 200/25 BLST.W.DEV 1 PUFF INHALE (08:20)
[2024-06-30] MEDS: methADONE HCl 20 MG/2 ML ORAL.CONC 125 MG PO (08:22)
--- NOTE | 2024-06-30 09:16 | HO.PSYCHPN ---
Subjective Subjective Date of Service: 06/30/24 Reason For Visit: crisis Subjective Notes: Conditional Voluntary Interim History: Patient reports feeling okay today; pt stated, I haven't had any hot flashes or stomach pain since I've been here. Since I've been in the hospital my body feels normal. I don't get it . Pt reports he always feels worried about getting sick ; he reports this is a common topic in therapy. He reports feeling glad I reached out to you guys and came in here . Plan for discharge on Wednesday; pt aware and in agreeable. denies SI/HI/VH/AH. labs to be redrawn tomorrow morning. Medication Compliance: Yes Side effects from medications: No Attending Groups: Intermittent Mental Status Exam Mental Status Exam Narrative: Pt is alert and oriented; behavior is cooperative and calm; dressed in casual attire; mood is described as okay ; eye contact appropriate; Speech is normal rate, volume and not pressured; thought process is organized and goal directed; Thought content is on tx; denies SI/HI/VH/AH. Diagnostics Vital Signs (24Hr): Vital Signs - 24 hr 06/29/24 19:32 06/30/24 08:00 Temperature 97.5 F 97.5 F Pulse Rate 102 H 90 Respiratory Rate 18 14 Blood Pressure 143/97 H 136/85 Pulse Oximetry 94 95 Oxygen Delivery Method Room Air Room Air BMI result Body Mass Index 46.1 Labs 06/26/24 17:08 06/27/24 16:12 Medications Medications Current Medications Acetaminophen (Acetaminophen 325 Mg Tablet) 650 mg PO Q6H PRN PRN Reason: Headache/Pain, Scale 1-10 Last Admin: 06/28/24 06:11 Dose: 650 mg Al Hydroxide/Mg Hydroxide (Magnesium Hydrox/Alum Hydrox 30 Ml Oral.Susp) 30 ml PO Q6H PRN PRN Reason: Heartburn/Nausea Albuterol Sulfate (Albuterol Sulfate 90 Mcg 8 Gm Inhaler) 2 puff INHALE Q4H PRN PRN Reason: wheezing Last Admin: 06/29/24 15:51 Dose: 2 puff Lipase/Protease/Amylase (Lipase/Prot/Amylase 24/76/120k 1 Cap Capsule.Dr) 3 cap PO TIDWM [facility] Last Admin: 06/30/24 08:17 Dose: 3 cap Aspirin (Aspirin Enteric Coated 81 Mg Tablet.) 81 mg PO DAILY [facility] Last Admin: 06/30/24 08:17 Dose: 81 mg Famotidine (Famotidine 20 Mg Tablet) 40 mg PO BEDTIME [facility] Last Admin: 06/29/24 20:08 Dose: 40 mg Fluoxetine HCl (Fluoxetine Hcl 20 Mg Capsule) 20 mg PO DAILY [facility] Last Admin: 06/30/24 08:17 Dose: 20 mg Fluticasone/Vilanterol (Fluticasone/Vilanterol 200/25 Blst.W.Dev) 1 puff INHALE RDAILY [facility] Last Admin: 06/30/24 08:20 Dose: 1 puff Hydroxyzine HCl (Hydroxyzine Hcl 25 Mg Tablet) 25 mg PO Q6H PRN PRN Reason: mild anxiety Last Admin: 06/29/24 15:52 Dose: 25 mg Lorazepam (Lorazepam 0.5 Mg Tablet) 0.5 mg PO DAILY PRN PRN Reason: severe anxiety Last Admin: 06/29/24 09:11 Dose: 0.5 mg Magnesium Hydroxide (Milk Of Magnesia 30 Ml Oral.Susp) 30 ml PO DAILY PRN PRN Reason: Constipation Magnesium Oxide (Magnesium Oxide 400 Mg Tablet) 400 mg PO BEDTIME [facility] Last Admin: 06/29/24 20:08 Dose: 400 mg Methadone HCl (Methadone Hcl 20 Mg/2 Ml Oral.Conc) 125 mg PO DAILY@0800 [facility] Last Admin: 06/30/24 08:22 Dose: 125 mg Mirtazapine (Mirtazapine 15 Mg Tablet) 15 mg PO BEDTIME [facility] Last Admin: 06/29/24 20:08 Dose: 15 mg Nicotine (Nicotine 21 Mg Patch.Td24) 21 mg TRANSDERMA DAILY [facility] Last Admin: 06/30/24 08:21 Dose: Not Given Nicotine Polacrilex (Nicotine Polacrilex 2 Mg Gum) 4 mg BUCCAL Q2H PRN PRN Reason: Nicotine Cravings Olanzapine (Olanzapine 5 Mg Tablet) 5 mg PO Q4H PRN PRN Reason: agitation Last Admin: 06/29/24 20:09 Dose: 5 mg Omeprazole (Omeprazole 20 Mg Capsule.) 20 mg PO DAILY@0630 [facility] Last Admin: 06/30/24 06:34 Dose: 20 mg Ondansetron HCl (Ondansetron Odt 4 Mg Tab.Rapdis) 4 mg TRANSLINGU Q8H PRN PRN Reason: nausea and vomiting Polyethylene Glycol (Polyethylene Glycol 3350 17 Gm Powd.Pack) 17 gm PO DAILY PRN PRN Reason: Constipation Last Admin: 06/28/24 08:15 Dose: 17 gm Quetiapine Fumarate (Quetiapine Fumarate 50 Mg Tablet) 50 mg PO BID [facility] Last Admin: 06/30/24 08:17 Dose: 50 mg Senna (Sennosides 8.6 Mg Tablet) 17.2 mg PO BEDTIME [facility] Last Admin: 06/29/24 20:09 Dose: 17.2 mg Trazodone HCl (Trazodone Hcl 50 Mg Tablet) 50 mg PO BEDTIME MRX1 PRN PRN Reason: Insomnia Allergies Allergies Allergy/AdvReac Type Severity Reaction Status Date / Time Penicillins [PENICILLINS] Allergy Unknown RASH Verified 06/26/24 15:33 Assessment & Plan Assessment & Plan (1) MDD (major depressive disorder), recurrent episode, moderate: Status: Acute Code(s): F33.1 - Major depressive disorder, recurrent, moderate (2) Opioid use disorder: Status: Acute Code(s): F11.90 - Opioid use, unspecified, uncomplicated Plan Patient is a 39-year-old male with history of MDD who was brought in by ambulance due to suicidal ideation secondary to chronic stomach pain. Plan: CV 15 minute safety checks Continue home medications Obtain collateral Encourage groups Discharge planning 06/28: Patient reports he continues to feel down because of my medical issues ; pt reports he plans on following up with his outpatient medical appointments. He reports sleeping well last night. denies SI/HI/VH/AH. Encouraged to attend groups. He reports zyprexa being helpful. 06/29: Patient continues to feel depressed ; pt states he plans on attending groups today with hopes it will help his mood. Pt reports decreased stomach pain since being in hospital. denies SI/HI/VH/AH. Plan to discharge home on Wednesday if he continues to improve. Continue current tx plan. 06/30: Patient reports feeling okay today; pt stated, I haven't had any hot flashes or stomach pain since I've been here. Since I've been in the hospital my body feels normal. I don't get it . Pt reports he always feels worried about getting sick ; he reports this is a common topic in therapy. He reports feeling glad I reached out to you guys and came in here . Plan for discharge on Wednesday; pt aware and in agreeable. denies SI/HI/VH/AH. labs to be redrawn tomorrow morning. Patient educated on: diagnosis, medication risk/benefits and therapeutic strategies Reason for continued inpatient stay Substantial Risk for: med/psych decompensation Time Spent With Patient Time: Total time managing care of this patient today _20___ minutes.
[2024-06-30] MEDS: LORazepam 0.5 MG TABLET PO (14:29)
[2024-06-30] MEDS: OLANZapine 5 MG TABLET PO ×2 (14:30→18:55)
[2024-06-30] MEDS: hydrOXYzine HCL 25 MG TABLET PO (18:55)
[2024-06-30 19:22] VITALS: BP 139/90; PULSE 110; RESP 18; TEMP 36.8; O2SAT 97
[2024-06-30] MEDS: Mirtazapine 15 MG TABLET PO (20:15)
[2024-06-30] MEDS: Magnesium Oxide 400 MG TABLET PO (20:15)
[2024-06-30] MEDS: Famotidine 20 MG TABLET 40 MG PO (20:15)
[2024-06-30] MEDS: Sennosides 8.6 MG TABLET 17.2 MG PO (20:15)
[2024-07-01] MEDS: OLANZapine 5 MG TABLET PO ×3 (04:56→12:46)
[2024-07-01] MEDS: hydrOXYzine HCL 25 MG TABLET PO ×2 (04:56→12:46)
[2024-07-01] MEDS: Omeprazole 20 MG CAPSULE.DR PO (06:28)
[2024-07-01 07:54] VITALS: BP 124/74; PULSE 94; RESP 16; TEMP 36.5; O2SAT 93
[2024-07-01] MEDS: methADONE HCl 20 MG/2 ML ORAL.CONC 125 MG PO (07:56)
[2024-07-01] MEDS: Lipase/Prot/Amylase 24/76/120K 1 CAP CAPSULE.DR 3 CAP PO ×3 (07:58→17:24)
[2024-07-01 08:15] LABS: MANUAL DIFF FLAG NO
[2024-07-01 08:19] LABS: Basophils Absolute Auto 0.1 X10*3/uL (0.0-0.2); Basophils Percent Auto 0.7 % (0-2); Eosinophils Absolute Auto 0.2 X10*3/uL (0.0-0.4); Eosinophils Percent Auto 2.3 % (0-4); Hematocrit 43.1 % (42.0-52.0); Hemoglobin 13.4 g/dl (14.0-18.0); Imm Gran Abs Auto 0.05 X10*3/uL (0.00-0.03); Imm Gran Pct Auto 0.5 % (0.0-0.4); Lymphocytes Absolute Auto 2.3 X10*3/uL (1.2-4.9); Lymphocytes Percent Auto 22.1 % (20-40); Mean Corpuscular HGB Conc 31.1 g/dl (31.0-36.0); Mean Corpuscular Hemoglobin 24.5 pg (27.0-33.0); Mean Corpuscular Volume 78.9 fL (80.0-98.0); Mean Platelet Volume 8.6 fL (9.4-12.4); Monocytes Percent Auto 9.4 % (2-11); Neutrophils Absolute Auto 6.6 x10*3/uL (2.0-8.3); Platelet Count 309 X10*3/uL (160-400); Red Blood Count 5.46 X10*6/uL (4.60-5.80); Red Cell Distribution Width 15.4 % (11.0-16.0); White Blood Count 10.2 X10*3/uL (4.8-10.8)
[2024-07-01] MEDS: QUEtiapine Fumarate 50 MG TABLET PO ×2 (08:41→20:12)
[2024-07-01] MEDS: Aspirin Enteric Coated 81 MG TABLET.DR PO (08:41)
[2024-07-01] MEDS: FLUoxetine HCl 20 MG CAPSULE PO (08:41)
[2024-07-01] MEDS: Fluticasone/Vilanterol 200/25 BLST.W.DEV 1 PUFF INHALE (08:41)
[2024-07-01] MEDS: LORazepam 0.5 MG TABLET PO (08:45)
[2024-07-01 09:07] LABS: TSH reflex Free T4 0.89 uIU/mL (0.32-4.0)
--- NOTE | 2024-07-01 18:28 | HO.PSYCHPN ---
Subjective Subjective Date of Service: 07/01/24 Reason For Visit: crisis Interim History: loquacious with litany of complaint. feeling very tired of the anxiety, at his wit's end, having intermittent SI as a result, feeling hopeless. reports just before he came into the hospital his outpt provider had increased his prozac to 40 mg daily. willing to make that change here. per staff, got PRN ativan and zyprexa last NOC. anxious, c/o nightmares. med-compliant. slept 8 hours. Mental Status Exam Mental Status Exam Narrative: Pt is alert and oriented; behavior is cooperative and calm; dressed in casual attire; mood is described as extremely anxious, eye contact appropriate; Speech is normal rate, increased amount and not pressured; thought process is organized and goal directed; Thought content is on anxiety and hopelessness; endorses intermittent SI, no HI/VH/AH expressed. Diagnostics Vital Signs (24Hr): Vital Signs - 24 hr 06/30/24 19:22 07/01/24 07:54 Temperature 98.2 F 97.7 F Pulse Rate 110 H 94 Respiratory Rate 18 16 Blood Pressure 139/90 H 124/74 Pulse Oximetry 97 93 Oxygen Delivery Method Room Air Room Air BMI result Body Mass Index 46.1 Labs 07/01/24 08:06 06/27/24 16:12 Labs: Laboratory Results - last 48 hr 07/01/24 08:06 WBC 10.2 RBC 5.46 Hgb 13.4 L Hct 43.1 MCV 78.9 L MCH 24.5 L MCHC 31.1 RDW 15.4 Plt Count 309 MPV 8.6 L Immature Gran % (Auto) 0.5 H Neut % (Auto) 65.0 Lymph % (Auto) 22.1 [place] % (Auto) 9.4 Eos % (Auto) 2.3 Baso % (Auto) 0.7 Lymph # (Auto) 2.3 [place] # (Auto) 1.0 Eos # (Auto) 0.2 Baso # (Auto) 0.1 Abs Immat Gran (auto) 0.05 H Absolute Neuts (auto) 6.6 Absolute Nucleated RBC 0.000 Nucleated RBC % (auto) 0.0 TSH 0.89 Medications Medications Current Medications Acetaminophen (Acetaminophen 325 Mg Tablet) 650 mg PO Q6H PRN PRN Reason: Headache/Pain, Scale 1-10 Last Admin: 06/28/24 06:11 Dose: 650 mg Al Hydroxide/Mg Hydroxide (Magnesium Hydrox/Alum Hydrox 30 Ml Oral.Susp) 30 ml PO Q6H PRN PRN Reason: Heartburn/Nausea Albuterol Sulfate (Albuterol Sulfate 90 Mcg 8 Gm Inhaler) 2 puff INHALE Q4H PRN PRN Reason: wheezing Last Admin: 06/29/24 15:51 Dose: 2 puff Lipase/Protease/Amylase (Lipase/Prot/Amylase 24/76/120k 1 Cap Capsule.) 3 cap PO TIDWM [facility] Last Admin: 07/01/24 17:24 Dose: 3 cap Aspirin (Aspirin Enteric Coated 81 Mg Tablet.) 81 mg PO DAILY [facility] Last Admin: 07/01/24 08:41 Dose: 81 mg Famotidine (Famotidine 20 Mg Tablet) 40 mg PO BEDTIME [facility] Last Admin: 06/30/24 20:15 Dose: 40 mg Fluoxetine HCl (Fluoxetine Hcl 20 Mg Capsule) 40 mg PO DAILY [facility] Fluticasone/Vilanterol (Fluticasone/Vilanterol 200/25 Blst.W.Dev) 1 puff INHALE RDAILY [facility] Last Admin: 07/01/24 08:41 Dose: 1 puff Hydroxyzine HCl (Hydroxyzine Hcl 25 Mg Tablet) 25 mg PO Q6H PRN PRN Reason: mild anxiety Last Admin: 07/01/24 12:46 Dose: 25 mg Lorazepam (Lorazepam 0.5 Mg Tablet) 0.5 mg PO DAILY PRN PRN Reason: severe anxiety Last Admin: 07/01/24 08:45 Dose: 0.5 mg Magnesium Hydroxide (Milk Of Magnesia 30 Ml Oral.Susp) 30 ml PO DAILY PRN PRN Reason: Constipation Magnesium Oxide (Magnesium Oxide 400 Mg Tablet) 400 mg PO BEDTIME [facility] Last Admin: 06/30/24 20:15 Dose: 400 mg Methadone HCl (Methadone Hcl 20 Mg/2 Ml Oral.Conc) 125 mg PO DAILY@0800 [facility] Last Admin: 07/01/24 07:56 Dose: 125 mg Mirtazapine (Mirtazapine 15 Mg Tablet) 15 mg PO BEDTIME [facility] Last Admin: 06/30/24 20:15 Dose: 15 mg Nicotine Polacrilex (Nicotine Polacrilex 2 Mg Gum) 4 mg BUCCAL Q2H PRN PRN Reason: Nicotine Cravings Olanzapine (Olanzapine 5 Mg Tablet) 5 mg PO Q4H PRN PRN Reason: agitation Last Admin: 07/01/24 12:46 Dose: 5 mg Omeprazole (Omeprazole 20 Mg Capsule.Dr) 20 mg PO DAILY@0630 [facility] Last Admin: 07/01/24 06:28 Dose: 20 mg Ondansetron HCl (Ondansetron Odt 4 Mg Tab.Rapdis) 4 mg TRANSLINGU Q8H PRN PRN Reason: nausea and vomiting Polyethylene Glycol (Polyethylene Glycol 3350 17 Gm Powd.Pack) 17 gm PO DAILY PRN PRN Reason: Constipation Last Admin: 06/28/24 08:15 Dose: 17 gm Quetiapine Fumarate (Quetiapine Fumarate 50 Mg Tablet) 50 mg PO BID [facility] Last Admin: 07/01/24 08:41 Dose: 50 mg Senna (Sennosides 8.6 Mg Tablet) 17.2 mg PO BEDTIME [facility] Last Admin: 06/30/24 20:15 Dose: 17.2 mg Trazodone HCl (Trazodone Hcl 50 Mg Tablet) 50 mg PO BEDTIME MRX1 PRN PRN Reason: Insomnia Allergies Allergies Allergy/AdvReac Type Severity Reaction Status Date / Time Penicillins [PENICILLINS] Allergy Unknown RASH Verified 06/26/24 15:33 Assessment & Plan Assessment & Plan (1) MDD (major depressive disorder), recurrent episode, moderate: Status: Acute Code(s): F33.1 - Major depressive disorder, recurrent, moderate (2) Opioid use disorder: Status: Acute Code(s): F11.90 - Opioid use, unspecified, uncomplicated Plan Patient is a 39-year-old male with history of MDD who was brought in by ambulance due to suicidal ideation secondary to chronic stomach pain. Plan: CV 15 minute safety checks Continue home medications Obtain collateral Encourage groups Discharge planning 06/28: Patient reports he continues to feel down because of my medical issues ; pt reports he plans on following up with his outpatient medical appointments. He reports sleeping well last night. denies SI/HI/VH/AH. Encouraged to attend groups. He reports zyprexa being helpful. 06/29: Patient continues to feel depressed ; pt states he plans on attending groups today with hopes it will help his mood. Pt reports decreased stomach pain since being in hospital. denies SI/HI/VH/AH. Plan to discharge home on Wednesday if he continues to improve. Continue current tx plan. 06/30: Patient reports feeling okay today; pt stated, I haven't had any hot flashes or stomach pain since I've been here. Since I've been in the hospital my body feels normal. I don't get it . Pt reports he always feels worried about getting sick ; he reports this is a common topic in therapy. He reports feeling glad I reached out to you guys and came in here . Plan for discharge on Wednesday; pt aware and in agreeable. denies SI/HI/VH/AH. labs to be redrawn tomorrow morning. 07/01: extreme anxiety, hopelessness, intermittent SI. increase prozac to 40 mg daily. Reason for continued inpatient stay Substantial Risk for: harm to self Time Spent With Patient Time: Total time managing care of this patient today ____ minutes.
[2024-07-01 20:00] VITALS: BP 161/100; PULSE 99; RESP 16; TEMP 36.4; O2SAT 94
[2024-07-01] MEDS: Famotidine 20 MG TABLET 40 MG PO (20:12)
[2024-07-01] MEDS: Magnesium Oxide 400 MG TABLET PO (20:12)
[2024-07-01] MEDS: Mirtazapine 15 MG TABLET PO (20:12)
[2024-07-01] MEDS: Sennosides 8.6 MG TABLET 17.2 MG PO (20:12)
[2024-07-01] MEDS: traZODone HCL 50 MG TABLET PO (20:13)
[2024-07-01 21:20] VITALS: BP 130/80
[2024-07-02] MEDS: traZODone HCL 50 MG TABLET PO (01:24)
[2024-07-02] MEDS: OLANZapine 5 MG TABLET PO ×3 (01:24→20:09)
[2024-07-02] MEDS: Omeprazole 20 MG CAPSULE.DR PO (06:34)
[2024-07-02 07:35] VITALS: BP 136/84; PULSE 98; RESP 16; TEMP 36.8; O2SAT 94
[2024-07-02] MEDS: methADONE HCl 20 MG/2 ML ORAL.CONC 125 MG PO (08:05)
[2024-07-02] MEDS: Aspirin Enteric Coated 81 MG TABLET.DR PO (08:06)
[2024-07-02] MEDS: Lipase/Prot/Amylase 24/76/120K 1 CAP CAPSULE.DR 3 CAP PO ×3 (08:06→16:58)
[2024-07-02] MEDS: QUEtiapine Fumarate 50 MG TABLET PO ×2 (08:07→20:09)
[2024-07-02] MEDS: FLUoxetine HCl 20 MG CAPSULE 40 MG PO (08:08)
[2024-07-02] MEDS: Fluticasone/Vilanterol 200/25 BLST.W.DEV 1 PUFF INHALE (08:21)
[2024-07-02] MEDS: polyethylene glycoL 3350 17 GM POWD.PACK PO (08:21)
[2024-07-02] MEDS: LORazepam 0.5 MG TABLET PO (12:32)
[2024-07-02] MEDS: Acetaminophen 325 MG TABLET 650 MG PO (17:22)
--- NOTE | 2024-07-02 19:58 | P.PNPSI_ITS ---
Subjective Subjective Date of Service: 07/02/24 Reason For Visit: crisis Interim History: reena the hospital is his comfort [facility]. has hospital socks at home that he wears when he is not doing well, also buys same snacks at home as hospital stocks, for familiarity. somatic, dependent. per staff, +dep. withdrawn, taking meds. quiet, polite. dep 8, anx 4 eves. denies SI/HI/AVH eves. slept 7 hours. Mental Status Exam Mental Status Exam Narrative: Pt is alert and oriented; behavior is cooperative and calm; dressed in casual attire; mood is described as anxious, eye contact appropriate; Speech is normal rate, increased amount and not pressured; thought process is organized and goal directed; Thought content is on anxiety, somatic complaints. no SI/HI/VH/AH expressed. Diagnostics Vital Signs (24Hr): Vital Signs - 24 hr 07/01/24 20:00 07/01/24 21:20 07/02/24 07:35 Temperature 97.5 F 98.2 F Pulse Rate 99 98 Respiratory Rate 16 16 Blood Pressure 161/100 H 130/80 136/84 Pulse Oximetry 94 94 Oxygen Delivery Method Room Air BMI result Body Mass Index 46.1 Labs 07/01/24 08:06 06/27/24 16:12 Labs: Laboratory Results - last 48 hr 07/01/24 08:06 WBC 10.2 RBC 5.46 Hgb 13.4 L Hct 43.1 MCV 78.9 L MCH 24.5 L MCHC 31.1 RDW 15.4 Plt Count 309 MPV 8.6 L Immature Gran % (Auto) 0.5 H Neut % (Auto) 65.0 Lymph % (Auto) 22.1 [place] % (Auto) 9.4 Eos % (Auto) 2.3 Baso % (Auto) 0.7 Lymph # (Auto) 2.3 [place] # (Auto) 1.0 Eos # (Auto) 0.2 Baso # (Auto) 0.1 Abs Immat Gran (auto) 0.05 H Absolute Neuts (auto) 6.6 Absolute Nucleated RBC 0.000 Nucleated RBC % (auto) 0.0 TSH 0.89 Medications Medications Current Medications Acetaminophen (Acetaminophen 325 Mg Tablet) 650 mg PO Q6H PRN PRN Reason: Headache/Pain, Scale 1-10 Last Admin: 07/02/24 17:22 Dose: 650 mg Al Hydroxide/Mg Hydroxide (Magnesium Hydrox/Alum Hydrox 30 Ml Oral.Susp) 30 ml PO Q6H PRN PRN Reason: Heartburn/Nausea Albuterol Sulfate (Albuterol Sulfate 90 Mcg 8 Gm Inhaler) 2 puff INHALE Q4H PRN PRN Reason: wheezing Last Admin: 06/29/24 15:51 Dose: 2 puff Lipase/Protease/Amylase (Lipase/Prot/Amylase 24/76/120k 1 Cap Capsule.) 3 cap PO TIDWM [facility] Last Admin: 07/02/24 16:58 Dose: 3 cap Aspirin (Aspirin Enteric Coated 81 Mg Tablet.) 81 mg PO DAILY [facility] Last Admin: 07/02/24 08:06 Dose: 81 mg Famotidine (Famotidine 20 Mg Tablet) 40 mg PO BEDTIME [facility] Last Admin: 07/01/24 20:12 Dose: 40 mg Fluoxetine HCl (Fluoxetine Hcl 20 Mg Capsule) 40 mg PO DAILY [facility] Last Admin: 07/02/24 08:08 Dose: 40 mg Fluticasone/Vilanterol (Fluticasone/Vilanterol 200/25 Blst.W.Dev) 1 puff INHALE RDAILY [facility] Last Admin: 07/02/24 08:21 Dose: 1 puff Hydroxyzine HCl (Hydroxyzine Hcl 25 Mg Tablet) 25 mg PO Q6H PRN PRN Reason: mild anxiety Last Admin: 07/01/24 12:46 Dose: 25 mg Lorazepam (Lorazepam 0.5 Mg Tablet) 0.5 mg PO DAILY PRN PRN Reason: severe anxiety Last Admin: 07/02/24 12:32 Dose: 0.5 mg Magnesium Hydroxide (Milk Of Magnesia 30 Ml Oral.Susp) 30 ml PO DAILY PRN PRN Reason: Constipation Magnesium Oxide (Magnesium Oxide 400 Mg Tablet) 400 mg PO BEDTIME [facility] Last Admin: 07/01/24 20:12 Dose: 400 mg Methadone HCl (Methadone Hcl 20 Mg/2 Ml Oral.Conc) 125 mg PO DAILY@0800 [facility] Last Admin: 07/02/24 08:05 Dose: 125 mg Mirtazapine (Mirtazapine 15 Mg Tablet) 15 mg PO BEDTIME [facility] Last Admin: 07/01/24 20:12 Dose: 15 mg Nicotine Polacrilex (Nicotine Polacrilex 2 Mg Gum) 4 mg BUCCAL Q2H PRN PRN Reason: Nicotine Cravings Olanzapine (Olanzapine 5 Mg Tablet) 5 mg PO Q4H PRN PRN Reason: agitation Last Admin: 07/02/24 12:30 Dose: 5 mg Omeprazole (Omeprazole 20 Mg Capsule.Dr) 20 mg PO DAILY@0630 [facility] Last Admin: 07/02/24 06:34 Dose: 20 mg Ondansetron HCl (Ondansetron Odt 4 Mg Tab.Rapdis) 4 mg TRANSLINGU Q8H PRN PRN Reason: nausea and vomiting Polyethylene Glycol (Polyethylene Glycol 3350 17 Gm Powd.Pack) 17 gm PO DAILY PRN PRN Reason: Constipation Last Admin: 07/02/24 08:21 Dose: 17 gm Quetiapine Fumarate (Quetiapine Fumarate 50 Mg Tablet) 50 mg PO BID [facility] Last Admin: 07/02/24 08:07 Dose: 50 mg Senna (Sennosides 8.6 Mg Tablet) 17.2 mg PO BEDTIME [facility] Last Admin: 07/01/24 20:12 Dose: 17.2 mg Trazodone HCl (Trazodone Hcl 50 Mg Tablet) 50 mg PO BEDTIME MRX1 PRN PRN Reason: Insomnia Last Admin: 07/02/24 01:24 Dose: 50 mg Allergies Allergies Allergy/AdvReac Type Severity Reaction Status Date / Time Penicillins [PENICILLINS] Allergy Unknown RASH Verified 06/26/24 15:33 Assessment & Plan Assessment & Plan (1) MDD (major depressive disorder), recurrent episode, moderate: Status: Acute Code(s): F33.1 - Major depressive disorder, recurrent, moderate (2) Opioid use disorder: Status: Acute Code(s): F11.90 - Opioid use, unspecified, uncomplicated Plan Patient is a 39-year-old male with history of MDD who was brought in by ambulance due to suicidal ideation secondary to chronic stomach pain. Plan: CV 15 minute safety checks Continue home medications Obtain collateral Encourage groups Discharge planning 06/28: Patient reports he continues to feel down because of my medical issues ; pt reports he plans on following up with his outpatient medical appointments. He reports sleeping well last night. denies SI/HI/VH/AH. Encouraged to attend groups. He reports zyprexa being helpful. 06/29: Patient continues to feel depressed ; pt states he plans on attending groups today with hopes it will help his mood. Pt reports decreased stomach pain since being in hospital. denies SI/HI/VH/AH. Plan to discharge home on Wednesday if he continues to improve. Continue current tx plan. 06/30: Patient reports feeling okay today; pt stated, I haven't had any hot flashes or stomach pain since I've been here. Since I've been in the hospital my body feels normal. I don't get it . Pt reports he always feels worried about getting sick ; he reports this is a common topic in therapy. He reports feeling glad I reached out to you guys and came in here . Plan for discharge on Wednesday; pt aware and in agreeable. denies SI/HI/VH/AH. labs to be redrawn tomorrow morning. 07/01: extreme anxiety, hopelessness, intermittent SI. increase prozac to 40 mg daily. 07/02: remains anxious, apprehensive about leaving the hospital. planning for discharge tomorrow. continue current mgmt. Reason for continued inpatient stay Substantial Risk for: inability to function and rapid decompensation Time Spent With Patient Time: Total time managing care of this patient today ____ minutes.
[2024-07-02 20:00] VITALS: BP 125/75; PULSE 82; RESP 18; TEMP 36.6; O2SAT 94
[2024-07-02] MEDS: Magnesium Oxide 400 MG TABLET PO (20:09)
[2024-07-02] MEDS: hydrOXYzine HCL 25 MG TABLET PO (20:09)
[2024-07-02] MEDS: Famotidine 20 MG TABLET 40 MG PO (20:09)
[2024-07-02] MEDS: Mirtazapine 15 MG TABLET PO (20:09)
[2024-07-02] MEDS: Sennosides 8.6 MG TABLET 17.2 MG PO (20:09)
[2024-07-03] MEDS: OLANZapine 5 MG TABLET PO ×2 (05:09→09:15)
[2024-07-03] MEDS: Omeprazole 20 MG CAPSULE.DR PO (05:09)
[2024-07-03] MEDS: hydrOXYzine HCL 25 MG TABLET PO (05:09)
[2024-07-03 07:42] VITALS: BP 129/83; PULSE 84; RESP 18; TEMP 36.5; O2SAT 93
[2024-07-03] MEDS: methADONE HCl 20 MG/2 ML ORAL.CONC 125 MG PO (07:53)
[2024-07-03] MEDS: Lipase/Prot/Amylase 24/76/120K 1 CAP CAPSULE.DR 3 CAP PO (07:55)
[2024-07-03] MEDS: Fluticasone/Vilanterol 200/25 BLST.W.DEV 1 PUFF INHALE (08:24)
[2024-07-03] MEDS: QUEtiapine Fumarate 50 MG TABLET PO (08:26)
[2024-07-03] MEDS: FLUoxetine HCl 20 MG CAPSULE 40 MG PO (08:26)
[2024-07-03] MEDS: Aspirin Enteric Coated 81 MG TABLET.DR PO (08:26)
[2024-07-03] MEDS: LORazepam 0.5 MG TABLET PO (09:15)
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
[2024-07-03] MEDS: Naloxone HCl Nasal TAKE HOME 4 MG SPRAY 8 MG NOSTRILALT (11:03)
--- NOTE | 2024-07-03 11:12 | PC.NURSE ---
Patient easily engaged. Reports mood is anxious. Requested and received PRN medication prior to discharge with + effects. Continues with mild depression, denies SI/HI plan or intent. No reported perceptual disturbances, no overt psychosis or expressed delusions. Planning to return to mothers home. Discharge paperwork reviewed with patient reports understanding. Follow up appointments reviewed with patients, reports understanding. Medications reviewed with patient reports understanding. Narcan given to patient upon discharge, declined directions for administration. All belongings taken with patient upon discharge. Crisis numbers provided to patient.
== END 2024-07-03 10:44 | disposition home or self-care (01) | DRG 751 ==
LOC: HO.ED 21:48 → HO.PADLT16 06-27 13:19
PROVIDERS: Admitting Provider Registered Nurse; Emergency Provider Emergency Medicine Emergency Medical Services; Responsible Provider Registered Nurse; Visit Provider Psychiatry & Neurology Psychiatry
DX: F33.1 Major depressive disorder, recurrent, moderate (principal); R45.851 Suicidal ideations; F11.20 Opioid dependence, uncomplicated; Z20.822 Contact with and (suspected) exposure to COVID-19; Z79.51 Long term (current) use of inhaled steroids; Z87.891 Personal history of nicotine dependence; Z79.82 Long term (current) use of aspirin; Z79.899 Other long term (current) drug therapy
CPT/HCPCS: 0241U; 36415; 80053; 80061; 80307; 81003; 82550; 83036; 83690; 83735; 84443; 85025; 93005; 99285; S9485

== ENCOUNTER → 2024-06-27 11:29 | Outpatient (BNV) | payer MEDICAID, SELFPAY | PROVIDERS: Admitting Provider Registered Nurse; Emergency Provider Emergency Medicine Emergency Medical Services; Responsible Provider Registered Nurse; Visit Provider Internal Medicine Cardiovascular Disease | DX: Z13.6 Encounter for screening for cardiovascular disorders (principal) | CPT/HCPCS: 93010 ==

== ENCOUNTER → 2024-06-27 13:00 | Outpatient (BNV) | payer OTHER, SELFPAY | PROVIDERS: Admitting Provider Registered Nurse; Emergency Provider Emergency Medicine Emergency Medical Services; Responsible Provider Registered Nurse; Visit Provider Registered Nurse | DX: F33.1 Major depressive disorder, recurrent, moderate (principal); F11.90 Opioid use, unspecified, uncomplicated | CPT/HCPCS: 99231 ==

== ENCOUNTER 2024-07-09 03:24 | Emergency (ER) | payer MEDICAID, SELFPAY ==
[2024-07-09 03:35] VITALS: BP 142/78; PULSE 116; O2SAT 96
[2024-07-09 03:46] VITALS: BP 168/95; PULSE 106; RESP 20; TEMP 37.1; O2SAT 94
[2024-07-09 03:52] VITALS: BMI 47.1
--- OUTSIDE RECORDS SUMMARY | 2024-07-09 04:22 | XMS_ITS | Encounter Summary ---
Author Organization [employer] Address [address] [place] [address] [address] [place] [address] Care Team Providers Care Ground Surveillance Systems Operator Name Role Phone Neetu Bah Primary Care Provider Roma Bender Primary Care Provider [phone] Neetu Bah Unavailable [phone] Lesia Tran MD Primary Care Provider + Reason for Visit * Reason Onset Date Comments New Patient 11/18/2022 Encounter Details Date Type Department Care Team (Late st Contact Info) Description 11/18/2022 Telephone [facility]INE [address] [place] [address] Koby Holland MD [address] [place], [place] [phone] New Patient Social History Tobacco Use Types [...] been transfer over to wait list 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 EFFECTIVE SINCE 11/24/2022 * Telephone Encounter - Lisa Zarate Marianne - 11/18/2022 10:33 AM EDT Tc to Pt , informed that we do take insurance, but must call [facility] to change location. Once done, to please call back to facility at [phone] documented in this encounter Plan of Treatment Upcoming Encounters Date Type Department Care Team (Late st Contact Info) Description 07/13/2024 10:45 AM EDT Office Visit [facility] MEDICINE [address] [place] [phone] Lesia Tran MD [address] [place] [phone] 07/28/2024 10:00 AM EDT Office Visit [facility] ADULT DENTAL [address] [place] [phone] Trenton Wilkerson DDS [address] [place] [phone] 08/24/2024 9:00 AM EDT Office Visit [facility] [address] [place] [phone] Lesia Tran MD [address] [place] [phone] documented as of this encounter Visit Diagnoses Not on filedocumented in this encounter Care Teams Ground Surveillance Systems Operator Relationship Specialty Start Date End Date Neetu Bah AGNP [address] [place] [phone] PCP - General Family Medicine 8/26/21 10/11/23 Roma Bender FNP [address] [place] [address] PCP - General Family Medicine 01/14/23 12/06/23 Lesia Tran MD [address] [place] [address] PCP - General Internal Medicine 12/07/23 Neetu Bah AGNP [address] [place] [phone] Family Medicine 01/14/23 09/02/23 documented as of this encounter
--- OUTSIDE RECORDS SUMMARY | 2024-07-09 04:22 | XMS_ITS | Encounter Summary ---
Author Organization [employer] Address [address] [facility] [address] [place] [address] Care Team Providers Care Urban Gardening Specialist Name Role Phone Lesia Tran MD Primary Care Provider + Reason for Visit * Reason Onset Date Comments Nurse Triage 06/16/2024 Encounter Details Date Type Department Care Team (Late st Contact Info) Description 06/16/2024 Telephone [facility] [address] [place] [address] Lesia Tran MD [address] [place] [address] Nurse Triage Social History Tobacco Use Types [...] appt from yesterday as he was in [facility] ED ( note requested) Patient with reported [...] is in agreement to reach out to [facility] and Crisis as needed. Has concerns for [...] had contact with Care Coordinators here at [facility] and is requesting additional help. Patient agrees to have [facility] reach out to him with worsening symptoms. [facility] to [facility] sent. Disposition reviewed and patient in agreement [...] - 06/16/2024 10:29 AM EDT Please obtain [facility] ED note from visit on 06/15/24. Patient scheduled with PCP on Wednesday06/20/24. * Telephone Encounter - Kenisha Mtz - 06/16/2024 9:52 AM EDT Symptoms: Abdominal Pain - Male, Abdominal Swelling Outcome: Schedule an urgent appointment (within 4 hours) or talk to a nurse or provider soon Reason: Started within the past 3 days The caller accepted this outcome. [phone] documented in this encounter Plan of Treatment Upcoming Encounters Date Type Department Care Team (Late st Contact Info) Description 07/13/2024 10:45 AM EDT Office Visit [facility] MED[facility] [address] [place] [address] Lesia Tran MD [address] [place] [address] 07/28/2024 10:00 AM EDT Office Visit [facility] ADULT DENTAL [address] [place] [address] Trenton Wilkerson DDS [address] [place] [address] 08/24/2024 9:00 AM EDT Office Visit [facility] MED[facility]INE [address] [place] [address] Lesia Tran MD [address] [place] [address] documented as of this encounter Visit Diagnoses Not on filedocumented in this encounter Additional Health Concerns Assessment Noted Time PHQ-9 Depression Total Score: 21 024 2:23 PM EST documented as of this encounter Care Teams Urban Gardening Specialist Relationship Specialty Start Date End Date Lesia Tran MD [address] [place] [phone] PCP - General Internal Medicine 12/07/23 documented as of this encounter
--- OUTSIDE RECORDS SUMMARY | 2024-07-09 04:22 | XMS_ITS | Clinical Summary ---
Author Organization [facility] Address [address] [place] [address] Phone Care Team Providers Care Early Childhood Education Instructor Name Role Phone Az Terrell Primary Care Provider [phone] Immunizations Immunization Administration Dates Next Due DTP [...] age to complete this topic Care Teams Early Childhood Education Instructor Relationship Specialty Start Date End Date Az Terrell [address] [place] [phone] PCP - General 11/13/16
--- OUTSIDE RECORDS SUMMARY | 2024-07-09 04:22 | XMS_ITS | Clinical Summary ---
Author Organization [employer] Address [address] [facility] [address] [place] [address] Care Team Providers Care Wildlife Refuge Specialist Name Role Phone Lesia Tran MD [...] mg) by mouth if needed in the morning, at noon, and at bedtime for anxiety. May take 2 capsules at bedtime. 60 capsule 06/27/19 25 025 Active mirtazapine (Remeron) 15 MG tabletIndicat ions:Anxiety, Severe episode of recurrent major depressive disorder, without psychotic features (CMS/HCC) Take 1 tablet (15 mg) by mouth at bedtime. 30 tablet 1 06/27/19 25 025 Active FLUoxetine (PROzac) 20 MG capsuleIndica tions:Anxiety ,Severe episode of recurrent major depressive disorder, without psychotic features (CMS/HCC) Take 2 capsules (40 mg) by mouth in the morning. 60 capsule 1 06/27/19 25 025 Active QUEtiapine (SEROquel) 50 MG tabletIndicat ions:Severe episode of recurrent major depressive disorder, without psychotic features (CMS/HCC) Take 1 tablet (50 mg) by mouth 2 times daily. 60 tablet 1 06/27/19 25 025 Active chlorhexidine (Peridex) 0.12 % solution Swish 15 mL morning and night for 1 minute. Spit, do not swallow. Do not eat or drink for 30 minutes following use. 473 mL 02/02/20 025 Discontinued(T herapy completed) hydrOXYzine pamoate (Vistaril) 50 MG capsuleIndica tions:Anxiety Take 1 capsule (50 mg) by mouth if needed in the morning and at bedtime for anxiety. 60 capsule 1 05/29/19 25 025 Discontinued(R eorder (will not trigger notification to Pharmacy)) FLUoxetine (PROzac) 20 MG capsuleIndica tions:Anxiety ,Severe episode of recurrent major depressive disorder, without psychotic features (CMS/HCC) Take 1 capsule (20 mg) by mouth in the morning. 30 capsule 1 05/29/19 25 025 Discontinued(R eorder (will not trigger notification to Pharmacy)) mirtazapine (Remeron) 15 MG tabletIndicat ions:Anxiety, Severe episode of recurrent major depressive disorder, without psychotic features (CMS/HCC) Take 1 tablet (15 mg) by mouth at bedtime. 30 tablet 1 05/29/19 25 025 Discontinued(R eorder (will not trigger notification to Pharmacy)) QUEtiapine (SEROquel) 50 MG tabletIndicat ions:Severe episode of recurrent major depressive disorder, without psychotic features (CMS/HCC) Take 1 tablet (50 mg) by mouth 2 times daily. 60 tablet 1 05/29/19 25 025 Discontinued(R eorder (will not trigger [...] advised to reach out to therapist or production recovery operator (he will request one at methadone program). Advised against using recreational substances or alcohol. Pt will see therapist this afternoon. History of substance use disorder 04/12/2024 Complete edentulism 04/12/2024 TYSON (obstructive sleep apnea) 02/11/2024 Overview (02/11/2024): Sleep study at [facility]: moderate TYSON with nocturnal hypoxemia, <88% 24.1 minutes, lowest 77%. Assessment & Plan (06/20/2024 1:12 PM EDT): Pt has not been able to use CPAP, will call sleep specialist to check next appointment. Advised regarding weight reduction, consider Zepbound. Consider Hypoglossal nerve stimulator implant. Fu with sleep specialist. Assessment & Plan (02/11/2024 3:58 PM EST): [facility] Mild persistent asthma 02/11/2024 Assessment & Plan (02/11/2024 4:00 PM EST): Doing well on Breo, [place] [facility] [place] Advised re weight reduction. Declined Influenza [...] Plan (02/11/2024 4:01 PM EST): FU [place] [facility], on Protonix, senna prn constipation Advised [...] moderate intensity exercise. Will hold referral to marine pipe welder until next appointment once anxiety is better [...] ID: Yaniv is a 37 y.o. White [place] choose not to disclose-identified cis- male (pronouns [...] for 2.5 years, currently on methadone at [facility], 128mg with a plan on taper down [...] intervention , [facility], and Patient to reach out to [facility] as needed Anxiety 06/10/2023 Overview (10/18/2023): Last Addressed Date: 10/26/2022 Assessment & Plan (02/11/2024 4:04 PM EST): Seen by MH provider at [facility], will bring meds at next [...] PM EST): Doing well on Methadone at [facility], has take home bottles Advised to decrease use of THC Encounters * This document contains information received from the source organization and may not represent a complete record from that organization. Date Type Department Care Team Description 07/07/[address] [address] Lesia Tran MD Appointment Request 07/04/2024 Travel 07/03/2024 Patient Outreach [address] [address] Lesia Tran MD Care Coordination ([facility] Jennifer Burgess telephone call outreach) 06/29/2024 Patient Outreach [facility] CHC MED & PEDS [address] [place], [place] [phone] Lesia Tran MD Transition Of Care (Tcm) (HDF scheduled.) 06/29/2024 Telephone [facility] ADULT DENTAL [address] [place] [phone] Trenton Wilkerson DDS rs appt/disconnected call 06/28/[address] [address] Lesia Tran MD Care Management ([facility]- Initial assessment/LVM) 06/27/2024 Patient Outreach [address] [address] Lesia Tran MD Care Coordination ([facility] Jennifer Burgess telephone call outreach) 06/26/2024 Orders Only GENERIC EXTERNAL DATA DEPARTMENT Provider, Generic External Data 06/26/2024 Travel 06/23/2024 Travel 06/20/2024 11:30 AM EDT Office Visit [facility] MEDICINE [address] [place] [phone] Lesia Tran MD Generalized anxiety disorder with panic attacks (Primary Dx); IFG (impaired fasting glucose); Morbid obesity (CMS/HCC); TYSON (obstructive sleep apnea); Hyperglycemia 06/17/2024 Travel 06/16/2024 Travel 06/16/2024 Population Health Risk Score [facility] () Department [address] [place] [phone] Provider, Population Health Generic 06/16/[address] [address] Lesia Tran MD Nurse Triage 06/15/[address] [address] Lesia Tran MD No Show 06/14/2024 Patient Outreach [address] [address] Lesia Tran MD Care Coordination ([facility] Jennifer Burgess telephone call outreach) 06/12/[address] [address] Lesia Tran MD Chart prep 06/08/2024 Travel 06/08/2024 Patient Outreach [address] [address] Lesia Tran MD Pre-visit Planning (SDOH screening negative and tobacco screening positive) 06/05/[address] [address] Lesia Tran MD Care Management ([facility]- chart review) 06/02/2024 10:00 AM EST Office Visit [facility] ADULT DENTAL [address] [place] [phone] Trenton Wilkerson DDS Complete edentulism, unspecified edentulism class (Primary Dx) 05/29/2024 Travel 05/24/[address] [address] Lesia Tran MD Results 05/22/2024 Travel 05/19/2024 Telephone [facility] MEDICINE [address] [place] [address] Lesia Tran MD Results 05/15/2024 Orders Only GENERIC EXTERNAL DATA DEPARTMENT Provider, Generic External Data 05/15/2024 Telephone [facility] MEDICINE [address] [place] [address] Lesia Tran MD Med Refill 05/12/2024 Telephone [facility] WALK-IN CENTER [address] [place] [address] Bobbi Deal, ROXANN Results: Chest CT 05/12/24 05/03/2024 10:00 AM EST Office Visit [facility] ADULT DENTAL [address] [place] [address] Trenton Wilkerson DDS Complete edentulism, unspecified edentulism class (Primary Dx) 04/30/2024 Travel 04/17/2024 Refill [facility] MEDICINE [address] [place] [address] Lesia Tran MD 04/12/2024 2:30 PM EST Office Visit [facility] ADULT DENTAL [address] [place] [address] Trenton Wilkerson DDS Complete edentulism, unspecified edentulism class (Primary Dx) 04/12/2024 Travel 04/11/2024 Travel from Last 3 Months Immunizations Name Administration Dates Next Due DTP 06/02/1998, 8,11/02/1992,1989,1987 Hep A, Adult 07/19/2021 Hep B, Adolescent or Pediatric 10/27/1999,1999,05/27/1999 Hep B, adult 08/20/2021,07/19/2021 Hib (PRP-T) 07/03/1989 INFLUENZA INJECTABLE QUADRIV ALANT CCIIV4 MDCK Multi-dose vial 07/14/2021 IPV 11/02/1997,11/02/1992,07/03/1989 Influenza injectable quadriv alent preservative free 01/13/2023,01/28/2022 MMR 07/30/2021,05/27/1999,11/02/1998 OPV, Trivalent 1987 TD (adult), 2 Lf tetanus tox [...] Description 07/13/2024 10:45 AM EDT Office Visit [facility] MEDICINE [address] [place] [phone] Lesia Tran MD [address] [place] [phone] 07/28/2024 10:00 AM EDT Office Visit [facility] ADULT DENTAL [address] [place] [phone] Trenton Wilkerson DDS [address] [place] [address] 08/24/2024 9:00 AM EDT Office Visit [facility] MEDICINE [address] [place] [address] Lesia Tran MD [address] [place] [address] Health Maintenance Due Date Last Done Comments [...] 04/12/2024, 02/20/2014 Depression Screening 02/10/2025 02/11/2024, 06/10/19 SDOH Screening 06/08/2025 06/08/2024 Diabetes: Hemoglobin A1C 06/20/2025 06/20/2024, 08/2023 Tobacco Screening 06/26/2025 06/26/2024 Dental X-Ray: Full Mouth 04/13/2027 025, 12/01/2023, [...] Procedure Name Priority Date/Time Associated Diagnosis Comments DRUG MONITOR, PANEL 1, SCREEN, URINE Routine 06/26/2024 5:18 PM EDT URINALYSIS WITH REFLEX MICROSCOPIC Routine 06/26/2024 5:18 PM EDT SARS COV2/INFLUENZA A/B AND RSV RNA QL NAAT Routine 06/26/2024 5:18 PM EDT TSH W/REFLEX TO FT4 Routine 06/26/2024 5 :08 PM EDT ETHANOL Routine 06/26/2024 5:08 PM EDT LIPASE Routine 06/26/2024 5:08 PM EDT CREATINE KINASE, TOTAL Routine 5:08 PM EDT MAGNESIUM Routine 06/26/2024 5:08 PM EDT COMPREHENSIVE METABOLIC PANEL Routine 06/26/2024 5:08 PM EDT CBC WITH AUTO DIFFERENTIAL Routine 06/26/2024 5:08 PM EDT POCT GLYCATED HEMOGLOBIN, TOTAL Routine 06/20/2024 12:05 [...] Recently Relevant to Health Maintenance Results * SARS-CoV-2 RNA, Influenza A/B, and RSV RNA, Ql NAAT (06/26/2024 5:18 PM EDT) Influenza A PCR NEGATIVE Negative [facility] Influenza B PCR NEGATIVE Negative [facility] Resp Syncy Virus RNA Qual PCR NEGATIVE Negative [facility] SARS COV2 PCR NEGATIVE Negative [facility] Comment:All test results mus t [...] use by authorized laboratories.Testing performed on the [employer] GeneXpert utilizingreal-time RT-PCR.All SARS CoV2 and positive influenza A/B results arereported to [facility]. 06/26/2024 5:18 PM EDT 06/26/2024 5:26 PM EDT us Generic External Data Provider LAB MICROBIOLOGY - GENERAL ORDERABLES Final Result [facility] [address] [place] [phone] * (ABNORMAL) Drug Monitoring, Panel 1, Screen, Urine (06/26/2024 5:18 PM EDT) Only the most recent of2 resultswithin the time period is included. Opiate Screen Urine Not Detected Not Detect [facility] Comment:Opiate cut-off is 30 0 ng/mL.Positive results are unconfirmed and should not be used fornon-medical purposes. Barbiturates, Urine Not Detected Not Detect [facility] Comment:Barbiturate cut-off is 200 ng/mL.Positive results are unconfirmed and should not be used fornon-medical purposes. Phencyclidine Screen Urine Not Detected Not Detect [facility] Comment:Phencyclidine cut-of f is 25 ng/mL.Positive results are unconfirmed and should not be used fornon-medical purposes. Amphetamine Screen Urine Not Detected Not Detect [facility] Comment:Amphetamine cut-off is 1000 ng/mL.Positive results are unconfirmed and should not be used fornon-medical purposes. Benzodiazepines Screen Urine Not Detected Not Detect [facility] Comment:Benzodiazepine cut-o ff is 200 ng/mL.Positive results are unconfirmed and should not be used fornon-medical purposes. Cocaine Screen Urine Not Detected Not Detect [facility] Comment:Cocaine cut-off is 3 00 ng/mL.Positive results are unconfirmed and should not be used fornon-medical purposes. Cannabinoid Screen Urine POSITIVE(A) Not Detect [facility] Comment:Cannabinoid cut-off is 50 ng/mL.Positive results are unconfirmed and should not be used fornon-medical purposes. Methadone Screen, Urine Positive(A) Not Detect ng/mL [facility] Comment:Methadone cut-off is 300 ng/mL.Positive results are unconfirmed and should not be used fornon-medical purposes. FENTANYL URINE Not Detected Not Detect [facility] Comment:Fentanyl cut-off is 1 ng/mL.Positive results are unconfirmed and should not be used fornon-medical purposes. Oxycodone Urine Screen Not Detected Not Detect ng/mL [facility] Comment:Oxycodone cut-off is 100 ng/mL.Positive results are unconfirmed and should not be used fornon-medical purposes. Buprenorphine Screen Not Detected Not Detect ng/mL [facility] Comment:Buprenorphine cut-of f is 5 ng/mL.Positive results are unconfirmed and should not be used fornon-medical purposes. 06/26/2024 5:18 PM EDT 06/26/2024 5:26 PM EDT Generic External Data Provider LAB URINE ORDERAB LES Final Result Performing Organization Address City/[facility]/ZIP Co de Phone Number [facility] [address] [place] [phone] Urinalysis w/reflex microscopic (06/26/2024 5:18 PM EDT) Color Urine Yellow [facility] Appearance Urine Clear [facility] PH 8.0 5.0 - 9.0 [facility] Glucose Urine UA Negative Negative mg/dL [facility] Urine Blood Negative Negative [facility] Specific [place] - Urine 1.025 1.005 - 1.025 [facility] Urine Protein Trace Neg-Trace mg/dL [facility] Urine Ketones Trace Negative mg/dL [facility] Nitrite Urine Negative Negative [facility] Leukocyte Esterase Urine Negative Negative [facility] 06/26/2024 5:18 PM EDT 06/26/2024 5:26 PM EDT Narrative [facility] - 06/26/2024 5:35 PM EDT [id number], Clean Catch Generic External Data Provider LAB URINE ORDERAB LES Final Result Performing Organization Address [facility] Co de Phone Number [facility] [address] [place] [phone] * Ethanol (06/26/2024 5:08 PM EDT) ETHANOL (MG/DL) IN SER/PLAS <10 mg/dL [facility] Comment:Serum/plasma ethanol results are to be used formedical/treatment purposes only. 06/26/2024 5:08 PM EDT 06/26/2024 5:12 PM EDT Generic External Data Provider LAB BLOOD ORDERAB LES Final Result Performing Organization Address [facility]/ZIP Co de Phone Number [facility] [address] [place] [phone] * TSH with Reflex to Free T4 (06/26/2024 5:08 PM EDT) Pathologist [facility] TSH reflex Free T4 0.83 0.32 - 4.0 uIU/mL [facility] 06/26/2024 5:08 PM EDT 06/26/2024 5:12 PM EDT Generic External Data Provider LAB BLOOD ORDERAB LES Final Result Performing Organization Address City/[facility] Co de Phone Number [facility] [address] [place] [phone] * (ABNORMAL) CBC auto differential (06/26/2024 5:08 PM EDT) White Blood Count 11.6(H) 4.8 - 10.8 X10*3/uL [facility] Red Blood Count 4.83 4.60 - 5.80 X10*6/uL [facility] Hemoglobin 11.7(L) 14.0 - 18.0 g/dl [facility] Hematocrit 37.2(L) 42.0 - 52.0 % [facility] Mean Corpuscular Volume 77.0(L) 80.0 - 98.0 fL [facility] Mean Corpuscular Hemoglobin 24.2(L) 27.0 - 33.0 pg [facility] Mean Corpuscular HGB Conc 31.5 31.0 - 36.0 g/dl [facility] Red Cell Distribution Width 14.6 11.0 - 16.0 % [facility] Platelet Count 264 160 - 400 X10*3/uL [facility] Mean Platelet Volume 8.9(L) 9.4 - 12.4 fL [facility] Neutrophils Percent Auto 82.4(H) 45 - 73 % [facility] Imm Gran Pct Auto 0.5(H) 0.0 - 0.4 % [facility] Lymphocytes Percent Auto 10.7(L) 20 - 40 % [facility] Monocytes Percent Auto 5.5 2 - 11 % [facility] Eosinophils Percent Auto 0.6 0 - 4 % [facility] Basophils Percent Auto 0.3 0 - 2 % [facility] NRBC Pct Auto 0.0 0.0 - 0.2 /100WBC [facility] Neutrophils Absolute Auto 9.6(H) 2.0 - 8.3 x10*3/uL [facility] Imm Gran Abs Auto 0.06(H) 0.00 - 0.03 X10*3/uL [facility] Lymphocytes Absolute Auto 1.2 1.2 - 4.9 X10*3/uL [facility] Monocytes Absolute Auto 0.6 0.1 - 1.2 X10*3/uL [facility] Eosinophils Absolute Auto 0.1 0.0 - 0.4 X10*3/uL [facility] Basophils Absolute Auto 0.0 0.0 - 0.2 X10*3/uL [facility] NRBC Abs Auto 0.000 0.0 - 0.012 X10*3/uL [facility] 06/26/2024 5:08 PM EDT 06/26/2024 5:12 PM EDT us Generic External Data Provider LAB BLOOD ORDERAB LES Final Result [facility] [address] [place] [phone] * Magnesium (06/26/2024 5:08 PM EDT) Magnesium 1.9 1.6 - 2.6 mg/dL [facility] 06/26/2024 5:08 PM EDT 06/26/2024 5:12 PM EDT Generic External Data Provider LAB BLOOD ORDERAB LES Final Result Performing Organization Address [facility]/ZIP Co de Phone Number [facility] [address] [place] [phone] * Lipase (06/26/2024 5:08 PM EDT) Pathologist [facility] Lipase 9 8 - 78 U/L [facility] 06/26/2024 5:08 PM EDT 06/26/2024 5:12 PM EDT Generic External Data Provider LAB BLOOD ORDERAB LES Final Result Performing Organization Address [facility] Co de Phone Number [facility] [address] [place] [phone] * Creatine Kinase, Total (06/26/2024 5:08 PM EDT) Pathologist [facility] Creatine Kinase Total 52 38 - 174 U/L [facility] 06/26/2024 5:08 PM EDT 06/26/2024 5:12 PM EDT Generic External Data Provider LAB BLOOD ORDERAB LES Final Result Performing Organization Address [facility] de Phone Number [facility] [address] [place] [phone] * (ABNORMAL) Comprehensive Metabolic Panel (06/26/2024 5:08 PM EDT) Pathologist [facility] Sodium 139 135 - 145 mmol/L [facility] Potassium 4.2 3.3 - 5.1 mmol/L [facility] Chloride 106 96 - 108 mmol/L [facility] Carbon Dioxide 27 22 - 29 mmol/L [facility] Anion Gap 10(L) 12 - 20 [facility] Urea Nitrogen (BUN) 10 9 - 16 mg/dL [facility] Creatinine, Serum 0.89 0.5 - 1.4 mg/dL [facility] Creatinine Clr Calc Pharmacy 126.3 [facility] Comment:eGFR (calculated fro m the MDRD study equation) and eCrCl(calculated from the Cockcroft-Gault equation) are based ondifferent parameters and may not yield comparable results.If eCrCl result is absurd, please check patient'sheight/weight. Estimated Glomerular Filt Rate >60 [facility] Comment:Chronic Kidney Disea se: Estimated GFR < 60 mL/min/[id number] Kidney Disease: Estimated GFR < 15 mL/min/1.73m2 Glucose 106 60 - 115 mg/dL [facility] Calcium 8.6 8.4 - 10.2 mg/dL [facility] Bilirubin, Total 0.3 0.0 - 1.0 mg/dL [facility] Aspartate Amino Transferase 19 5 - 37 U/L [facility] Alanine Aminotransferase 19 0 - 40 U/L [facility] Total Protein 7.1 6.5 - 8.0 g/dL [facility] Albumin Level 3.7 3.5 - 5.0 g/dL [facility] Alkaline Phosphatase 94 39 - 117 U/L [facility] 06/26/2024 5:08 PM EDT 06/26/2024 5:12 PM EDT us Generic External Data Provider LAB BLOOD ORDERAB LES Final Result [facility] [address] [place] [phone] [phone] * POCT HGB A1C (06/20/2024 12:05 PM EDT) Hemoglobin A1C 6.0 4.0 - 6.0 % QC Media Lot # [id number] Lot# Expiration Date ,206 Blood 06/20/2024 12:0 5 PM EDT Lesia Tran MD POINT OF CARE TEST ENTER /EDIT ORDERABLES Final Result * POCT Glucose (06/20/2024 12:02 PM EDT) Pathologist [facility] Glucose Blood, POC 114 60 - 200 mg/dL QC Media Lot # [id number] Lot# Expiration Date Blood Capillary blood specimen / Unknown 06/20/2024 12:02 PM EDT Lesia Tran MD POINT OF CARE TEST ENTER /EDIT ORDERABLES Final Result * (ABNORMAL) Immunoglobulin G Subclasses Panel (05/15/2024 3:30 PM EST) Pathologist [facility] IgG Subclass 1 702 382 - 929 mg/dL [facility] IgG Subclass 2 304 241 - 700 mg/dL [facility] IgG Subclass 3 37 22 - 178 mg/dL [facility] IgG Subclass 4 92.2(A) 4 - 86 mg/dL [facility] Immunoglobulin G, Serum 1172 600 - 1640 mg/dL [facility] Comment:THIS TEST WAS PERFOR MED AT:[facility] [place] [phone] AMAYA MD 05/15/2024 3:30 PM EST 05/15/2024 3:30 PM EST us Generic External Data Provider LAB BLOOD ORDERAB LES Final Result [facility] [address] [place] [phone] [phone] * (ABNORMAL) Immunoglobulins, Quantitative, IgA, IgG, IgM (05/15/2024 3:30 PM EST) Pathologist [facility] IMMUNOGLOBULIN G 1274 600 - 1640 mg/dL [facility] IMMUNOGLOBULIN A 542(A) 47 - 310 mg/dL [facility] Immunoglobulin M 277 50 - 300 mg/dL [facility] Comment:THIS TEST WAS PERFOR MED AT:[facility] [address] [phone] AMAYA MD 05/15/2024 3:30 PM EST 05/15/2024 3:30 PM EST us Generic External Data Provider LAB BLOOD ORDERAB LES Final Result [facility] [address] [place] [address] [phone] * CT Chest w/o Contrast (05/12/2024 9:03 AM EST) Anatomical Region Laterality Modality Body, Chest Computed Tomogra phy 05/12/2024 9:03 AM EST Narrative 05/12/2024 9:54 AM EST ? [facility] ?[address] ?[place] [address] ? CT Scan Report ? Signed ? Patient: Yaniv Gutierrez ?MR#: [id number] ? : 1985 ?Acct:[id number] ? Age/Sex: 38 / M ?ADM Date: 05/12/24 ? Loc: HO.CT ? Attending Dr: Samantha Davis SENIOR GL ACCOUNTANT ? Ordering Physician: Samantha Davis NP ?? Date of Service: 05/12/24 ?? Procedure(s): CT chest wo IV con ?? Accession Number(s): [id number] ? cc: Roma Bender SENIOR GL ACCOUNTANT; Samantha Davis SENIOR GL ACCOUNTANT ? Report Number: ?? [id number]: Total DLP = ??307.00 mGy-cm ?? EXAMINATION: [...] DLP: 307 mGy centimeter. ? FINDINGS: ? LENS BLOCKER: Large body habitus. No hyperinflation. ? LUNGS: [...] AM ?? EST RP ? Dictated By: ?Tryese De Leon MD ? Signed By: ?<Electronically signed by Tyrese Sanchez MD in [place]> ? 05/12/24 0951 ? DD/ 0903 ? TD/TT: 05/12/24 0928 ? Elementary Substitute Teacher: ? Procedure Note Carroll Rubio - 05/12/[address] [place] [address] CT Scan Report Signed Patient: Yaniv Gutierrez GMR#: [id number] : 1985Acct:[id number] Age/Sex: 38 / MADM Date: 05/12/24 Loc: HO.CT Attending Dr: Samantha Davis NP Ordering Physician: Samantha Davis NP Date of Service: 05/12/24 Procedure(s): CT chest wo IV con Accession Number(s): [id number] cc: Roma Bender NP; Samantha Davis NP Report Number: [id number]: Total DLP = 307.00 mGy-cm EXAMINATION: CT [...] reconstruction technique. DLP: 307 mGy centimeter. FINDINGS: LENS BLOCKER: Large body habitus. No hyperinflation. LUNGS: Small [...] MDin OV> 05/12/2451 DD/ 2 TD/TT: 05/12/24927 Elementary Substitute Teacher: [facility] External Provider IMG CT PROCEDURES Final Result * (ABNORMAL) Lipid Panel, Standard (06/08/2023 8:20 AM EST) Triglycerides 236(H) <150 mg/dL [facility] Comment:Desirable Triglyceri de: less than 150 mg/dLBorderline High Triglyceride 150-199 mg/dLHigh Triglyceride: 200-499 mg/dLVery High Triglyceride: greater than or equal to 5OO mg/dL Cholesterol 137 <200 mg/dL [facility] Comment:Desirable Cholestero l: less than 200 mg/dLBorderline High Cholesterol: 200-239 mg/dLHigh Cholesterol: greater than 239 mg/dL LDL Cholesterol Calculated 57 <100 mg/dL [facility] Comment:Desirable LDL: less than 100 mg/dLNear Optimal/Above Optimal LDL: 110- 129 mg/dLBorderline High LDL: 130-159 mg/dLHigh LDL: 160-189 mg/dLVery High LDL: greater than or equal to 190 mg/dL HDL Cholesterol 33(L) >40 mg/dL [facility] Comment:Desirable HDL: great er than 40 mg/dL Note: This HDL assay may give artificially low results in patients with liver disease. Blood Venous blood specimen / Unknown 06/08/2023 8:20 AM EST 06/08/2023 11:33 AM EST Yesica Ibarra MD LAB BLOOD ORDERAB LES Final Result [facility] [address] [place] [phone] from Last 3 Months or Most Recently Relevant to Health Maintenance Insurance [facility] C3 HSN FULL DENTAL-[facility] MEDICAID STAND ADULT Care Teams Wildlife Refuge Specialist Relationship Specialty Start Date End Date Lesia Tran MD [address] [place] [address] PCP - General Internal Medicine 12/07/23
--- OUTSIDE RECORDS SUMMARY | 2024-07-09 04:22 | XMS_ITS | Encounter Summary ---
Author Organization [employer] Address 75 [facility] 7t [place] [address] Care Team Providers Care Toll Test Worker Name Role Phone Lesia Tran MD Primary Care Provider + Reason for Visit * Reason Onset Date Comments medication 02/02/2024 Encounter Details Date Type Department Care Team (Late st Contact Info) Description 02/02/2024 Telephone [facility] ADULT DENTAL [address] [place] [address] Trenton Wilkerson, BJS [address] [place] [address] medication Social History Tobacco Use Types Packs/Day [...] 10:45 AM EDT Office Visit [facility] MEDICINE [address] [place] [address] Lesia Tran MD [address] [place] [address] 07/28/2024 10:00 AM EDT Office Visit [facility] ADULT DENTAL [address] [place], [place] [phone] Trenton Wilkerson DDS [address] [place], [place] [phone] 08/24/2024 9:00 AM EDT Office Visit [facility] MEDICINE [address] [place], [place] [phone] Lesia Tran MD [address] [place], [place] [phone] documented as of this encounter Visit Diagnoses Not on filedocumented in this encounter Additional Health Concerns Assessment Noted Time PHQ-9 Depression Total Score: 21 024 2:23 PM EST documented as of this encounter Care Teams Toll Test Worker Relationship Specialty Start Date End Date Lesia Tran MD [address] [place] [address] [phone] PCP - General Internal Medicine 12/07/23 documented as of this encounter
--- OUTSIDE RECORDS SUMMARY | 2024-07-09 04:22 | XMS_ITS | Encounter Summary ---
Author Organization [employer] Address 75 [facility] 7t [place] [address] Care Team Providers Care Skein Yarn Dyer Helper Name Role Phone Neetu Bah Primary Care Provider Roma Bender Primary Care Provider [phone] Neetu Bah Unavailable [phone] Lesia Tran MD Primary Care Provider + Encounter Details Date Type Department Care Team (Late st Contact Info) Description 09/29/2022 Abstract [facility] ADULT DENTAL [address] [place] [address] Trenton Wilkerson DDS [address] [place] [address] Social History Tobacco Use Types Packs/Day Years [...] [facility] MEDICINE [address] [place] [address] Lesia Tran MD [address] [place] [address] 07/28/2024 10:00 AM EDT Office Visit [facility] ADULT DENTAL [address] [place] [address] Trenton Wilkerson DDS [address] [place] [address] 08/24/2024 9:00 AM EDT Office Visit [address] [address] Lesia Tran MD [address] [place] [address] documented as of this encounter Visit Diagnoses Not on filedocumented in this encounter Care Teams Skein Yarn Dyer Helper Relationship Specialty Start Date End Date Neetu Bah AGNP [address] [place] [phone] PCP - General Family Medicine 11/28/20 01/13/23 Roma Bender FNP [address] [place] [address] PCP - General Family Medicine 01/14/23 12/06/23 Lesia Tran MD [address] [place] [address] PCP - General Internal Medicine 12/07/23 Neetu Bah AGNP [address] [place] [address] Family Medicine 01/14/23 09/02/23 documented as of this encounter
--- OUTSIDE RECORDS SUMMARY | 2024-07-09 04:22 | XMS_ITS | Encounter Summary ---
Author Organization [employer] Address 75 [facility] 7t [place] [address] Care Team Providers Care Transportation Engineer Name Role Phone Roma Bender Primary Care Provider [phone] Neetu Bah [facility] Unavailable [phone] Lesia Tran MD Primary Care Provider + Reason for Visit * Reason Onset Date Comments Medication Question 05/04/2023 Encounter Details Date Type Department Care Team (Late st Contact Info) Description 05/04/2023 Telephone [facility] MED[facility] [address] [place] [address] Roma Bender FNP [address] [place] [address] Medication Question Social History Tobacco Use Types [...] MG tablet prescribed by pcp at [facility] today 05/04/23, was prescribed for 1 time daily but it was supposed to be 2 times daily. Any questions please contact [phone]. documented in this encounter Plan of Treatment Upcoming Encounters Date Type Department Care Team (Late st Contact Info) Description 07/13/2024 10:45 AM EDT Office Visit [facility] [address] [place] [address] Lesia Tran MD [address] [place] [address] 07/28/2024 10:00 AM EDT Office Visit [facility] ADULT DENTAL [address] [place] [address] Trenton Wilkerson DDS [address] [place] [address] 08/24/2024 9:00 AM EDT Office Visit [facility] [address] [place] [address] Lesia Tran MD [address] [place] [address] documented as of this encounter Visit Diagnoses Not on filedocumented in this encounter Additional Health Concerns Assessment Noted Time PHQ-9 Depression Total Score: 11 023 3:14 PM EDT documented as of this encounter Care Teams Transportation Engineer Relationship Specialty Start Date End Date Roma Bender FNP [address] [place] [address] PCP - General Family Medicine 01/14/23 12/06/23 Lesia Tran MD [address] [place] [address] PCP - General Internal Medicine 12/07/23 Neetu Bah AGNP [address] [place] [phone] Family Medicine 01/14/23 09/02/23 documented as of this encounter
--- OUTSIDE RECORDS SUMMARY | 2024-07-09 04:22 | XMS_ITS | Encounter Summary ---
Author Organization [employer] Address [address] [facility] [address] 7t [place] [address] Care Team Providers Care Elephant Tamer Name Role Phone Roma Bender Primary Care Provider [phone] Neetu Bah Unavailable [phone] Lesia Tran MD Primary Care Provider + Encounter Details Date Type Department Care Team (Late st Contact Info) Description 02/19/2023 Orders Only [facility] CHC MED & PEDS [address] [place] [address] Roma Bender FNP [address] [place] [address] Other acute gastritis, presence of bleeding unspecified [...] Description 07/13/2024 10:45 AM EDT Office Visit [facility] MEDICINE [address] [place] [address] Lesia Tran MD [address] [place] [address] 07/28/2024 10:00 AM EDT Office Visit [facility] ADULT DENTAL [address] [place] [address] Trenton Wilkerson DDS [address] [place] [address] 08/24/2024 9:00 AM EDT Office Visit [facility] MEDICINE [address] [place] [address] Lesia Tran MD [address] [place] [address] documented as of this encounter Visit Diagnoses Diagnosis Other acute gastritis, presence of bleeding unspecified- Primary documented in this encounter Additional Health Concerns Assessment Noted Time PHQ-9 Depression Total Score: 11 023 3:14 PM EDT documented as of this encounter Care Teams Elephant Tamer Relationship Specialty Start Date End Date Roma Bender FNP [address] [place] [address] PCP - General Family Medicine 01/14/23 12/06/23 Lesia Tran MD 230 [place] [address] PCP - General Internal Medicine 12/07/23 Neetu Bah AGNP [address] [place] [phone] Family Medicine 01/14/23 09/02/23 documented as of this encounter
--- OUTSIDE RECORDS SUMMARY | 2024-07-09 04:22 | XMS_ITS | Encounter Summary ---
Author Organization [employer] Address [address] [facility] [address] 7t [place] [address] Care Team Providers Care Yardage Control Operator Forming Name Role Phone Lesia Tran MD Primary Care Provider + Encounter Details Date Type Department Care Team (Latest Contact Info) Description 07/04/2024 Travel Social History Tobacco Use Types Packs/Day [...] Description 07/13/2024 10:45 AM EDT Office Visit [facility] [address] [place] [address] Lesia Tran MD [address] [place] [address] 07/28/2024 10:00 AM EDT Office Visit [facility] ADULT DENTAL [address] [place] [address] Trenton Wilkerson DDS [address] [place] [address] 08/24/2024 9:00 AM EDT Office Visit [facility] [address] [place] [address] Lesia Tran MD [address] [place] [address] documented as of this encounter Visit Diagnoses Not on filedocumented in this encounter Additional Health Concerns Assessment Noted Time PHQ-9 Depression Total Score: 21 024 2:23 PM EST documented as of this encounter Care Teams Yardage Control Operator Forming Relationship Specialty Start Date End Date Lesia Tran MD [address] [place] [address] PCP - General Internal Medicine 12/07/23 documented as of this encounter
--- OUTSIDE RECORDS SUMMARY | 2024-07-09 04:22 | XMS_ITS | Encounter Summary ---
Author Organization [employer] Address 75 [facility] 7t [place] [address] Care Team Providers Care Urban Planning Teacher Name Role Phone Neetu Bah Primary Care Provider Roma Bender Primary Care Provider [phone] Neetu Bah Unavailable [phone] Lesia Tran MD Primary Care Provider + Encounter Details Date Type Department Care Team (Late st Contact Info) Description 09/29/2022 Abstract [facility] ADULT DENTAL [address] [place] [address] Trenton Wilkerson DDS [address] [place] [address] Social History Tobacco Use Types Packs/Day Years [...] Description 07/13/2024 10:45 AM EDT Office Visit [facility] MEDICINE [address] [place] [address] Lesia Tran MD [address] [place] [address] 07/28/2024 10:00 AM EDT Office Visit [facility] ADULT DENTAL [address] [place] [address] Trenton Wilkerson DDS [address] [place] [address] 08/24/2024 9:00 AM EDT Office Visit [address] [address] Lesia Tran MD [address] [place] [address] documented as of this encounter Visit Diagnoses Not on filedocumented in this encounter Care Teams Urban Planning Teacher Relationship Specialty Start Date End Date Neetu Bah AGNP [address] [place] [address] PCP - General Family Medicine 11/28/20 01/13/23 Roma Bender FNP [address] [place] [address] PCP - General Family Medicine 01/14/23 12/06/23 Lesia Tran MD [address] [place] [address] PCP - General Internal Medicine 12/07/23 Neetu Bah AGNP [address] [place] [address] Family Medicine 01/14/23 09/02/23 documented as of this encounter
--- OUTSIDE RECORDS SUMMARY | 2024-07-09 04:22 | XMS_ITS | Encounter Summary ---
Author Organization [employer] Address 75 [facility] 7t [place] [address] Care Team Providers Care It Portfolio Manager Name Role Phone Lesia Tran MD Primary Care Provider + Reason for Visit * Reason Onset Date Comments rs appt/disconnected call 06/29/2024 Encounter Details Date Type Department Care Team (Late st Contact Info) Description 06/29/2024 Telephone [facility] ADULT DENTAL [address] [place] [address] Trenton Wilkerson DDS [address] [place] [address] rs appt/disconnected call Social History Tobacco Use Types Packs/Day Years [...] * Telephone Encounter - Fide Urrutia - 06/29/2024 8:54 AM EDT Swati called in to rs appt 07/03 for wax try in with Dr. Wilkerson. While I was on the line with net front end developer [facility] the patient disconnected the call.. The appt offered at the time was 07/26 at 9am. I returned call to patient and no answer. Left a voice message asking for patient to call back if they were still interested in rs appt documented in this encounter Plan of Treatment Upcoming Encounters Date Type Department Care Team (Late st Contact Info) Description 07/13/2024 10:45 AM EDT Office Visit [facility] MEDICINE [address] [place] [address] Lesia Tran MD [address] [place] [address] 07/28/2024 10:00 AM EDT Office Visit [facility] ADULT DENTAL [address] [place], [place] [phone] Trenton Wilkerson DDS [address] [place], [place] [phone] 08/24/2024 9:00 AM EDT Office Visit [facility] MEDICINE [address] [place], [place] [phone] Lesia Tran MD [address] [place], [place] [phone] documented as of this encounter Visit Diagnoses Not on filedocumented in this encounter Additional Health Concerns Assessment Noted Time PHQ-9 Depression Total Score: 21 024 2:23 PM EST documented as of this encounter Care Teams It Portfolio Manager Relationship Specialty Start Date End Date Lesia Tran MD [address] [place] [address] [phone] PCP - General Internal Medicine 12/07/23 documented as of this encounter
--- OUTSIDE RECORDS SUMMARY | 2024-07-09 04:22 | XMS_ITS | Encounter Summary ---
Author Organization [employer] Address 75 [facility] 7t [place] [address] Care Team Providers Care It Network Architect Name Role Phone Lesia Tran MD Primary Care Provider + Reason for Visit * Reason Onset Date Comments Med Refill 05/15/2024 Encounter Details Date Type Department Care Team (Late st Contact Info) Description 05/15/[address] [facility] MEDICINE [address] [place] [address] Lesia Tran MD [address] [place] [address] Med Refill Social History Tobacco Use Types [...] 9:47 AM EST Medication was sent to [id number] on 05/01/24 with 1 refill. * Telephone Encounter - Kenisha Mtz - 05/15/2024 9:43 AM EST TC from pt requesting medication refill. Medications needing refill : hydrOXYzine pamoate (Vistaril) 25 MG capsule To be sent to: [facility]/pharmacy #[id number] - [address] documented in this encounter Plan of Treatment Upcoming Encounters Date Type Department Care Team (Late st Contact Info) Description 07/13/2024 10:45 AM EDT Office Visit [facility] MEDICINE [address] [place] [address] Lesia Tran MD [address] [place] [address] 07/28/2024 10:00 AM EDT Office Visit [facility] ADULT DENTAL [address] [place] [address] Trenton Wilkerson DDS [address] [place] [address] 08/24/2024 9:00 AM EDT Office Visit [facility] MED[facility]INE [address] [place] [address] Lesia Tran MD [address] [place] [address] documented as of this encounter Visit Diagnoses Not on filedocumented in this encounter Additional Health Concerns Assessment Noted Time PHQ-9 Depression Total Score: 21 024 2:23 PM EST documented as of this encounter Care Teams It Network Architect Relationship Specialty Start Date End Date Lesia Tran MD [address] [place] [address] PCP - General Internal Medicine 12/07/23 documented as of this encounter
--- OUTSIDE RECORDS SUMMARY | 2024-07-09 04:22 | XMS_ITS | Encounter Summary ---
Author Organization [employer] Address 75 [facility] 7t [place] [address] Care Team Providers Care Longwall Shearer Operator Name Role Phone Neetu Bah Primary Care Provider Roma Bender Primary Care Provider [phone] Neetu Bah Unavailable [phone] Lesia Tarn MD Primary Care Provider + Encounter Details Date Type Department Care Team (Late st Contact Info) Description 09/28/2022 Abstract [facility] ADULT DENTAL [address] [place] [address] Trenton Wilkerson DDS [address] [place] [address] Social History Tobacco Use Types Packs/Day Years [...] Office Visit [facility] MEDICINE [address] [place] [address] Lesia Tran MD [address] [place] [address] 07/28/2024 10:00 AM EDT Office Visit [facility] ADULT DENTAL [address] [place] [address] Trenton Wilkerson DDS [address] [place] [address] 08/24/2024 9:00 AM EDT Office Visit [address] [address] Lesia Tran MD [address] [place] [address] documented as of this encounter Visit Diagnoses Not on filedocumented in this encounter Care Teams Longwall Shearer Operator Relationship Specialty Start Date End Date Neetu Bah AGNP [address] [place] [address] PCP - General Family Medicine 11/28/20 01/13/23 Roma Bender FNP [address] [place] [address] PCP - General Family Medicine 01/14/23 12/06/23 Lesia Tran MD [address] [place] [address] PCP - General Internal Medicine 12/07/23 Neetu Bah AGNP [address] [place] [address] Family Medicine 01/14/23 09/02/23 documented as of this encounter
--- OUTSIDE RECORDS SUMMARY | 2024-07-09 04:22 | XMS_ITS | Encounter Summary ---
Author Organization [employer] Address 75 [facility] 7t [place] [address] Care Team Providers Care Loss Prevention Manager Name Role Phone Lesia Tran MD Primary Care Provider + Reason for Visit * Reason Onset Date Comments Appointment Request 07/07/2024 Encounter Details Date Type Department Care Team (Late st Contact Info) Description 07/07/2024 Telephone [facility] MEDICINE [address] [place] [address] Lesia Tran MD [address] [place] [address] Appointment Request Social History Tobacco Use Types Packs/Day Years [...] Telephone Encounter - Nahomy Velazco MA - 07/07/2024 2:19 PM EDT Tc to [facility] sleep med to confirm any upcoming appts for pt. Spoke to Jojo who stated pt has no upcoming appt. Office has sleep study referral but they are requesting referral for the sleep dept prior to scheduling pt. * Telephone Encounter - Nahomy Velazco MA - 07/07/2024 2:19 PM EDT ----- Message from Lesia Tran MD sent at 06/20/2024 12:41 PM EDT ----- Patient was referred to sleep specialist last year, please call re next appt, please tell them thathe couldn't use CPAP. documented in this encounter Plan of Treatment Upcoming Encounters Date Type Department Care Team (Magi gaston Contact Info) Description 07/13/2024 10:45 AM EDT Office Visit [facility] [address] [place] [address] Lesia Tran MD [address] [place] [address] 07/28/2024 10:00 AM EDT Office Visit [facility] ADULT DENTAL [address] [place] [address] Trenton Wilkerson DDS [address] [place] [address] 08/24/2024 9:00 AM EDT Office Visit [facility] [address] [place] [address] Lesia Tran MD [address] [place], [place] [phone] documented as of this encounter Visit Diagnoses Not on filedocumented in this encounter Additional Health Concerns Assessment Noted Time PHQ-9 Depression Total Score: 21 024 2:23 PM EST documented as of this encounter Care Teams Loss Prevention Manager Relationship Specialty Start Date End Date Lesia Tran MD [address] [place] [address] [phone] PCP - General Internal Medicine 12/07/23 documented as of this encounter
[2024-07-09 04:29] LABS: MANUAL DIFF FLAG NO
[2024-07-09 04:30] LABS: Basophils Percent Auto 0.2 % (0-2); Eosinophils Absolute Auto 0.2 X10*3/uL (0.0-0.4); Eosinophils Percent Auto 1.3 % (0-4); Hematocrit 34.7 % (42.0-52.0); Imm Gran Abs Auto 0.06 X10*3/uL (0.00-0.03); Imm Gran Pct Auto 0.5 % (0.0-0.4); Lymphocytes Absolute Auto 0.7 X10*3/uL (1.2-4.9); Lymphocytes Percent Auto 5.5 % (20-40); Mean Corpuscular HGB Conc 31.7 g/dl (31.0-36.0); Mean Corpuscular Hemoglobin 24.8 pg (27.0-33.0); Mean Corpuscular Volume 78.2 fL (80.0-98.0); Mean Platelet Volume 8.9 fL (9.4-12.4); Monocytes Absolute Auto 0.7 X10*3/uL (0.1-1.2); Neutrophils Absolute Auto 10.6 x10*3/uL (2.0-8.3); Neutrophils Percent Auto 86.5 % (45-73); Platelet Count 221 X10*3/uL (160-400); Red Blood Count 4.44 X10*6/uL (4.60-5.80); Red Cell Distribution Width 15.5 % (11.0-16.0); White Blood Count 12.3 X10*3/uL (4.8-10.8)
[2024-07-09 04:47] LABS: Alanine Aminotransferase 25 U/L (0-40); Albumin Level 3.5 g/dL (3.5-5.0); Alkaline Phosphatase 95 U/L (39-117); Anion Gap 11 (12-20); Aspartate Amino Transferase 30 U/L (5-37); Bilirubin Total 0.4 mg/dL (0.0-1.0); Blood Urea Nitrogen 10 mg/dL (9-16); Calcium 8.3 mg/dL (8.4-10.2); Carbon Dioxide 27 mmol/L (22-29); Chloride 104 mmol/L (96-108); Creatinine Clr Calc Pharmacy 148.1; Estimated Glomerular Filt Rate > 60; Ethanol < 10 mg/dL; Glucose Random 143 mg/dL (60-115); Lipase 8 U/L (8-78); Potassium 4.1 mmol/L (3.3-5.1); Sodium 138 mmol/L (135-145); Total Protein 6.6 g/dL (6.5-8.0)
[2024-07-09 05:38] LABS: Appearance Urine Clear; Color Urine Yellow; Glucose Urine UA Negative (Negative); Leukocyte Esterase Urine Negative (Negative); Nitrite Urine Negative (Negative); PH >= 9.0 (5.0-9.0); Urine Blood Negative (Negative); Urine Ketones Negative (Negative); Urine Protein Negative (Neg-Trace)
[2024-07-09 05:47] LABS: Amphetamine Screen Urine Not Detected (Not Detect); Barbiturates, Urine Not Detected (Not Detect); Benzodiazepines Screen Urine Not Detected (Not Detect); Buprenorphine Scr Not Detected (Not Detect); Cannabinoid Screen Urine POSITIVE (Not Detect); Cocaine Screen Urine Not Detected (Not Detect); Fentanyl, urine Not Detected (Not Detect); Methadone Screen, Urine Positive (Not Detect); Opiate Screen Urine Not Detected (Not Detect); Oxycodone Screen Urine Not Detected (Not Detect); Phencyclidine Screen Urine Not Detected (Not Detect)
[2024-07-09 06:41] VITALS: BP 130/69; PULSE 92; RESP 12; TEMP 36.2; O2SAT 95
--- NOTE | 2024-07-09 07:30 | ED_ITS ---
HPI - Abdominal Pain General Chief Complaint: Abdominal Pain Stated Complaint: SI v Time Seen by Provider: 07/09/24 06:15 Source: patient and EMS Mode of arrival: EMS Limitations: no limitations History of Present Illness ED Provider: Dr. Samantha Desir HPI narrative: Patient comes to the emergency room complaining of suicidal ideation and patient requesting to be admitted to the inpatient floor. Patient states that he has chronic abdominal pain which has been present for 2 years and that makes him feel suicidal. Denies homicidal ideation. Patient states that he has been having nausea and vomiting at home. 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 Related Data Home Medications ?Medication ?Instructions ?Recorded ?Confirmed albuterol sulfate 90 mcg/actuation 2 puff inhalation Q4H PRN wheezing 09/02/23 06/27/24 aerosol inhaler (Ventolin HFA) aspirin 81 mg tablet,delayed 81 mg PO DAILY 09/02/23 06/27/24 release mirtazapine 15 mg tablet 15 mg PO BEDTIME 09/02/23 06/27/24 quetiapine 50 mg tablet 50 mg PO BID 09/02/23 06/27/24 acetaminophen 650 mg 650 mg PO Q8H PRN moderate pain 03/11/24 06/27/24 tablet,extended release methadone 10 mg/mL oral 125 mg PO DAILY 03/11/24 06/27/24 concentrate (Methadone Intensol) polyethylene glycol 3350 17 17 g PO DAILY PRN Constipation 03/11/24 06/27/24 gram/dose oral powder (Miralax) Previous Rx's ?Medication ?Instructions ?Recorded esomeprazole magnesium 40 mg 40 mg PO DAILY #30 caps 01/14/24 capsule,delayed release (Nexium) famotidine 40 mg tablet 40 mg PO BEDTIME 90 days #90 tabs 01/14/24 hosavf-uvxbyujk-htrxczo 2 cap PO TID #90 caps 04/06/24 36,000-114,000-180,000 unit capsule,delay rel (Creon) magnesium oxide 400 mg PO BEDTIME #30 caps 04/14/24 sennosides 8.6 mg tablet (Natural 17.2 mg (2 x 8.6 mg) PO BEDTIME 05/02/24 Senna Laxative) constipation #180 tabs fluticasone furoate 200 1 inh inhalation DAILY #60 ea 05/10/24 mcg-vilanterol 25 mcg/dose inhalation powder (Breo Ellipta) ondansetron HCl 4 mg tablet 4 mg PO Q8H PRN nausea and 05/31/24 vomiting #10 tabs fluoxetine 20 mg capsule 40 mg (2 x 20 mg) PO DAILY #0 caps 07/03/24 hydroxyzine HCl 25 mg tablet 25 mg PO TID PRN mild anxiety 30 07/03/24 days #90 tabs olanzapine 5 mg tablet 5 mg PO TID PRN agitation 30 days 07/03/24 #90 tabs Allergies Allergy/AdvReac Type Severity Reaction Status Date / Time Penicillins [PENICILLINS] Allergy Unknown RASH Verified 07/09/24 03:56 Review of Systems Review of Systems Constitutional : No Weight loss, No Fever, No Chills, No Night Sweats, No Fatigue, No Malaise ENT/Mouth : No Hearing loss, No Ear Pain, No Nasal Congestion, No Sinus Pain, No Hoarseness, No sore throat, No Rhinorrhea, No Swallowing Difficulty Eyes: No Eye Pain, No Swelling, No Redness, No Foreign Body, No Discharge, No Vision Changes Cardiovascular : No Chest Pain, No SOB, No Dyspnea on Exertion, No Orthopnea, No Edema, No Palpitations Respiratory : No Cough, No Sputum, No Wheezing, No Smoke Exposure, No Dyspnea Gastrointestinal : Complaining of chronic abdominal discomfort, recurrent episodes of nausea vomiting Genitourinary : no irregular bleeding, No Dysuria, No Urinary Frequency, No Hematuria, No Urinary Incontinence, No Urgency, No Flank Pain, No Urinary Flow Changes, No Hesitancy Musculoskeletal : No joint pain, No Myalgias, No Joint Swelling Skin : No Skin Lesions, No rash Neuro : No Weakness, No Numbness, No Paresthesias, No Loss of Consciousness, No Dizziness, No Headache Psych : Complaining of anxiety and depression, vague suicidal ideation with no plan, denies homicidal ideation Heme/Lymph: No Bruising, No Bleeding,No Lymphadenopathy Endocrine : No Polyuria, No Polydipsia, No Temperature Intolerance [facility] Past Medical History Medical History Exocrine pancreatic insufficiency Polysubstance abuse No known health problems Social History Social History Household Members: Family Housing: Apartment Do you presently have visiting nurse or other home services: No Alcohol intake: former Patient Tobacco Use Status: Former Tobacco user Substance Use Type: Marijuana Advance Directives: Yes Advance Directives on File: Yes Advance Directives Date on File: 03/15/24 Do you have a plan to hurt others: No Plan service: No Sexual orientation: Straight/Heterosexual Physical Exam ED Vital Signs: Vital Signs - 24 hr 07/09/24 03:46 07/09/24 06:41 Temperature 98.7 F 97.1 F Pulse Rate 106 H 92 Respiratory Rate 20 12 Blood Pressure 168/95 H 130/69 Pulse Oximetry 94 95 Oxygen Delivery Method Room Air Room Air BMI result Body Mass Index 47.1 Const Other: Appearance: Alert. Oriented X3. No acute distress. Eyes: Pupils equal, round and reactive to light. ENT: Pharynx normal. Neck: Normal inspection. Neck supple. No lymph nodes noted. No crepitus CVS: Normal heart rate and rhythm. Pulses normal. Normal S1 and S2 Respiratory: No respiratory distress. Breath sounds normal. No Wheezing. No rales Abdomen: Soft and nontender. No rigidity. No distention. Skin: Skin warm and dry. Normal skin color. Normal skin turgor. Extremities: No lower extremity edema. No Lacerations. No Rash Neuro: Oriented X 3. No motor deficit. No sensory deficit. Moving all extremities. No slurred speech. CN 2 through 12 grossly intact Psych: calm, cooperative, normal affect Medical Decision Making Medical Decision Making MDM Narrative: On physical exam, patient did not seem to have any abdominal pain. My interpretation of labs: Patient's hematology at baseline, chemistry at baseline no significant abnormalities, normal LFTs, normal lipase, urinalysis negative for UTI, toxicology positive for methadone and marijuana, negative for alcohol I discussed with the patient that we can have him be seen by the care team. Patient states now that he is adamant that he is not suicidal homicidal, patient states that he used said so because he was having a lot of abdominal distention. Patient adamant he is not SI or HI, requesting to be discharged. Differential Diagnosis Differential Diagnoses: The differential diagnosis associated with the presentation includes (Chronic abdominal pain, chronic constipation) Admission/Observation Consideration of admission/observation: Escalation of care including admission/observation considered (Patient waiting to be seen by the care team to determine his disposition) Lab Data [facility] Lab Attestation statement: I reviewed the patient's lab results. 07/09/24 04:25 07/09/24 04:25 Labs: Lab Results 07/09/24 07/09/24 Range/Units 04:25 05:26 WBC 12.3 H (4.8-10.8) X10*3/uL RBC 4.44 L (4.60-5.80) X10*6/uL Hgb 11.0 L (14.0-18.0) g/dl Hct 34.7 L (42.0-52.0) % MCV 78.2 L (80.0-98.0) fL MCH 24.8 L (27.0-33.0) pg MCHC 31.7 (31.0-36.0) g/dl RDW 15.5 (11.0-16.0) % Plt Count 221 D (160-400) X10*3/uL MPV 8.9 L (9.4-12.4) fL Immature Gran % (Auto) 0.5 H (0.0-0.4) % Neut % (Auto) 86.5 H (45-73) % Lymph % (Auto) 5.5 L (20-40) % Dawson % (Auto) 6.0 (2-11) % Eos % (Auto) 1.3 (0-4) % Baso % (Auto) 0.2 (0-2) % Lymph # (Auto) 0.7 L (1.2-4.9) X10*3/uL Dawson # (Auto) 0.7 (0.1-1.2) X10*3/uL Eos # (Auto) 0.2 (0.0-0.4) X10*3/uL Baso # (Auto) 0.0 (0.0-0.2) X10*3/uL Abs Immat Gran (auto) 0.06 H (0.00-0.03) X10*3/uL Absolute Neuts (auto) 10.6 H (2.0-8.3) x10*3/uL Absolute Nucleated RBC 0.000 (0.0-0.012) X10*3/uL Nucleated RBC % (auto) 0.0 (0.0-0.2) /100WBC Sodium 138 (135-145) mmol/L Potassium 4.1 (3.3-5.1) mmol/L Chloride 104 (96-108) mmol/L Carbon Dioxide 27 (22-29) mmol/L Anion Gap 11 L (12-20) BUN 10 (9-16) mg/dL Creatinine 0.91 (0.5-1.4) mg/dL Estim Creat Clear Calc 148.1 Estimated GFR > 60 Random Glucose 143 H (60-115) mg/dL Calcium 8.3 L D (8.4-10.2) mg/dL Total Bilirubin 0.4 (0.0-1.0) mg/dL AST 30 (5-37) U/L ALT 25 (0-40) U/L Alkaline Phosphatase 95 (39-117) U/L Total Protein 6.6 (6.5-8.0) g/dL Albumin 3.5 (3.5-5.0) g/dL Lipase 8 (8-78) U/L Urine Color Yellow Urine Appearance Clear Urine pH >= 9.0 (5.0-9.0) Ur Specific [place] 1.020 (1.005-1.025) Urine Protein Negative (Neg-Trace) mg/dL Urine Glucose (UA) Negative (Negative) mg/dL Urine Ketones Negative (Negative) mg/dL Urine Blood Negative (Negative) Urine Nitrite Negative (Negative) Ur Leukocyte Esterase Negative (Negative) Urine Opiates Screen Not Detected (Not Detect) Ur Buprenorphine Scrn Not Detected (Not Detect) ng/mL Ur Oxycodone Screen Not Detected (Not Detect) ng/mL Urine Methadone Screen Positive H (Not Detect) ng/mL Urine Fentanyl Screen Not Detected (Not Detect) Ur Barbiturates Screen Not Detected (Not Detect) Ur Phencyclidine Scrn Not Detected (Not Detect) Ur Amphetamines Screen Not Detected (Not Detect) U Benzodiazepines Scrn Not Detected (Not Detect) Urine Cocaine Screen Not Detected (Not Detect) U Marijuana (THC) Screen POSITIVE H (Not Detect) Ethyl Alcohol < 10 mg/dL Critical Care Time Critical Care Time Critical Care Time: Yes Total Critical Care Time: 35 Attestation: I have personally provided critical care time. Time includes review of lab data, radiology results, discussion with consultants, and monitoring for potential decompensation. Intervention performed as documented. Discharge Plan Discharge Clinical Impression: Abdominal pain, chronic, generalized, Chronic constipation Patient Disposition: Home, Self-Care Instructions: Abdominal Pain (ED), Constipation (DC) Additional Instructions: Please follow-up with your primary care physician tomorrow. If you have any worsening or new symptoms, please return to the emergency room or call 911 Prescriptions: No Action Creon 36,000-114,000- 180,000 unit capsule,delayed release(DR/EC) 2 cap PO TID Qty: 90 2RF Rx Instructions: administer with meals and/or snacks sennosides [Natural Senna Laxative] 8.6 mg tablet 17.2 mg PO BEDTIME Qty: 180 1RF fluticasone furoate-vilanterol [Breo Ellipta] 200-25 mcg/dose blister with device 1 inh inhalation DAILY Qty: 60 2RF acetaminophen 650 mg tablet extended release 650 mg PO Q8H PRN (Reason: moderate pain) polyethylene glycol 3350 [Miralax] 17 gram/dose powder 17 g PO DAILY PRN (Reason: Constipation) methadone [Methadone Intensol] 10 mg/mL Concentrate 125 mg PO DAILY ondansetron HCl 4 mg tablet 4 mg PO Q8H PRN (Reason: nausea and vomiting) Qty: 10 0RF olanzapine 5 mg Tablet 5 mg PO TID PRN (Reason: agitation) 30 Days Qty: 90 0RF hydroxyzine HCl 25 mg Tablet 25 mg PO TID PRN (Reason: mild anxiety) 30 Days Qty: 90 0RF fluoxetine 20 mg Capsule 40 mg PO DAILY Qty: 0 0RF quetiapine 50 mg tablet 50 mg PO BID aspirin 81 mg tablet,delayed release (DR/EC) 81 mg PO DAILY albuterol sulfate [Ventolin HFA] 90 mcg/actuation HFA aerosol inhaler 2 puff inhalation Q4H PRN (Reason: wheezing) mirtazapine 15 mg tablet 15 mg PO BEDTIME esomeprazole magnesium [Nexium] 40 mg capsule,delayed release(DR/EC) 40 mg PO DAILY Qty: 30 5RF famotidine 40 mg tablet 40 mg PO BEDTIME 90 Days Qty: 90 3RF magnesium oxide 400 mg magnesium capsule 400 mg PO BEDTIME Qty: 30 2RF Print Language: Greek
--- NOTE | 2024-07-09 07:36 | PC.NURSE ---
patient a&ox3, vitals stable, pt stating his abd pain has been relieved, pt also stated he was only having SI thoughts earlier because he was in so much pain, he admits to eating things he shouldnt and not following the appropriate diet he was given by GI. Pt is asking to discharge home as he is feeling fine. Provider was notified and pt will be discharging home shortly.
[2024-07-09 07:44] VITALS: BP 150/90; PULSE 99; RESP 20; TEMP 36.1; O2SAT 95
[2024-07-09 07:49] VITALS: BP 150/90; PULSE 99; RESP 20; TEMP 36.1; O2SAT 95
== END 2024-07-09 07:50 | disposition home or self-care (01) ==
PROVIDERS: Emergency Provider Emergency Medicine
DX: G89.29 Other chronic pain (principal); R10.84 Generalized abdominal pain; K59.09 Other constipation; R45.851 Suicidal ideations; R11.2 Nausea with vomiting, unspecified; F11.20 Opioid dependence, uncomplicated; F12.90 Cannabis use, unspecified, uncomplicated; Z87.891 Personal history of nicotine dependence; Z79.899 Other long term (current) drug therapy
CPT/HCPCS: 36415; 80053; 80307; 81003; 83690; 85025; 99284

== ENCOUNTER 2024-07-20 10:03 | Outpatient (AMB) | payer MEDICAID, SELFPAY ==
[2024-07-20 10:14] VITALS: BMI 46.4
--- NOTE | 2024-07-20 10:14 | A.OFFVIS_ITS ---
VS Expanded 07/20/24 10:14 08/07/24 21:53 Height 5 ft 7 in 5 ft 7 in Weight 296 lb 1.293 oz 296 lb BMI 46.4 46.4 Intake Visit Reasons: Morbid obesity Allergies Penicillins [PENICILLINS] Allergy (Unknown, Verified 07/27/24 07:52) RASH Nutrition Presentation Details: Pt presents for MNT for morbid obesity PT reports working on reading nutrition information and diet information on line, finding recipes for weight loss food frequency fruits: 0-1/d vex/wk protein : 6-12 oz/d starches >30 dairy: 5+ beverages:water, soda juices fried foods : 3+/wk eating out :3 x/wk physical activity : walking 1 hr 5 times a week BS Monitoring Most Recent Diabetes Results: Cholesterol 166 mg/dL (<200) 07/28/24 HDL Cholesterol 43 mg/dL (>40) 07/28/24 Triglycerides 83 mg/dL (<150) 07/28/24 Creatinine 0.77 mg/dL (0.5-1.4) 07/28/24 Blood Urea Nitrogen 13 mg/dL (9-16) 07/28/24 Sodium 135 mmol/L (135-145) 07/28/24 Potassium 4.3 mmol/L (3.3-5.1) 07/28/24 Chloride 100 mmol/L (96-108) 07/28/24 Carbon Dioxide 27 mmol/L (22-29) 07/28/24 Calcium 9.4 mg/dL (8.4-10.2) 07/28/24 AST 28 U/L (5-37) 07/28/24 ALT 26 U/L (0-40) 07/28/24 Total Protein 7.9 g/dL (6.5-8.0) 07/28/24 Albumin 4.0 g/dL (3.5-5.0) 07/28/24 ICR-Qjriktq-Kj.Jeor Equation Height: 5 ft 7 in Weight: 296 lb Resting Metabolic Rate: 2227.88 Calculated Activity Level: Moderate Activity Calories Needed to Maintain Weight: 3453.21 Diagnosis Nutrition problem #1: overweight/obesity As related to (etiology) #1: excess energy intake As evidenced by (sign/symptom) #1: high BMI [facility] Medical History Suicidal ideation Exocrine pancreatic insufficiency Polysubstance abuse No known health problems Social History Household Members: Family Housing: Apartment Do you presently have visiting nurse or other home services: No Alcohol intake: former Patient Tobacco Use Status: Former Tobacco user Substance Use Type: Marijuana Advance Directives Date on File: 03/15/24 service: No Sexual orientation: Straight/Heterosexual Assessment & Plan Assessment & Plan (1) Morbid obesity due to excess calories: Code(s): E66.01 - Morbid (severe) obesity due to excess calories Category: Medical Plan: Wt: 134 Kg ( 07/28 ) Est kcal needs as per MSJ: 3400 (40% carb, 30% protein/fat) Est fluid needs as per 25-30 ml/d: 4000 Est prot per day as per 1 g/kg bw: 134 Recommend fiber intake : 8-10 g per day and gradually increase to 25-28 g per day for women and 35-38 g for men or as tolerated Recommend sodium intake per day : less than 2000 mg Educated patient on: ( R = reviewed V = verbalizes understanding N/R = needs review N/A = not applicable * Food sources of carbohydrate, adequate serving sizes and its role in various health conditions: R * Differences between complex carbohydrates a simple carbohydrates, role of fiber in diet: R * Lean protein sources of foods: R V NR * Differences between types of fats and role in diet (mono on saturated fat fatty acids, saturated fatty acids, trans fats): R V N/R * Food sources of sodium in salt and healthy modifications for heart health in kidney health: R V R/V * Vitamins and minerals: R V N/R * Healthy plate method concept: R V N/R * Physical activity: Benefits a precaution: R V N/R Patient Instructions: Follow healthy plate method at dinner time , incorporating non starchy vegetables Choose low sugar cereals- see options listed keep a food record and bring to next f/u Coding Level of Care Code Nutr Indiv Intake (10328) Diagnoses Morbid obesity due to excess calories E66.01 Time Spent (min) 30
--- OUTSIDE RECORDS SUMMARY | 2024-07-20 11:49 | XMS_ITS | Clinical Summary ---
Author Organization [facility] Address [address] [place] [address] Phone Care Team Providers Care Senior Software Tester Name Role Phone Az Terrell Primary Care Provider [phone] Immunizations Immunization Administration Dates Next Due DTP [...] age to complete this topic Care Teams Senior Software Tester Relationship Specialty Start Date End Date Az Terrell [address] [place] [id number] PCP - General 11/13/16
--- OUTSIDE RECORDS SUMMARY | 2024-07-20 11:49 | XMS_ITS | Encounter Summary ---
Author Organization [employer] Address [address] [place] [address] Care Team Providers Care Letterset Press Set Up Operator Name Role Phone Lesia Tran MD Primary Care Provider + Encounter Details Date Type Department Care Team (Late st Contact Info) Description 07/18/2024 Telephone [facility] MED[facility]INE [address] [place] [address] Lesia Tran MD [address] [place] [address] Social History Tobacco Use Types Packs/Day Years [...] Telephone Encounter - Carlos Muñiz RN - 07/18/2024 3:[address] Tran, unfortunately pt no longer qualify for the care management program due to his insurance. It seems that pt lost his C3 coverage. documented in this encounter Plan of Treatment Upcoming Encounters Date Type Department Care Team (Late st Contact Info) Description 07/28/2024 10:00 AM EDT Office Visit [facility] ADULT DENTAL [address] [place] [address] Trenton Wilkerson DDS [address] [place] [address] 08/24/2024 9:00 AM EDT Office Visit [facility] MEDICINE [address] [place] [address] Lesia Tran MD [address] [place] [address] documented as of this encounter Visit Diagnoses Not on filedocumented in this encounter Additional Health Concerns Assessment Noted Time PHQ-9 Depression Total Score: 21 024 2:23 PM EST documented as of this encounter Care Teams Letterset Press Set Up Operator Relationship Specialty Start Date End Date Lesia Tran MD [address] [place] [address] PCP - General Internal Medicine 12/07/23 documented as of this encounter
--- OUTSIDE RECORDS SUMMARY | 2024-07-20 11:49 | XMS_ITS | Encounter Summary ---
Author Organization [employer] Address [address] [facility] [address] [place] [address] Care Team Providers Care Research Environmental Scientist Name Role Phone Lesia Tran MD Primary Care Provider + Reason for Visit * Reason Comments Care Coordination [facility] Jennifer Burgess t elephone call outreach Encounter Details Date Type Department Care Team (Latest Contact Info) Description 07/17/2024 Patient Outreach [facility] [address] [place] [address] Lesia Tran MD [address] [place] [address] Care Coordination ([facility] Jennifer Burgess telephone call outreach) Social History Tobacco [...] encounter Progress Notes * Jennifer Burgess - 07/17/2024 11:08 AM EDT CHW Jennifer Burgess, placed outbound call to patient introducing herself from [facility] CM Department, in regards to offering services. Patient's name and was confirmed. Patient agrees toparticipate in program. Appt. for initial assessment scheduled for 07/18/2024@ 2:00PM. CHW reinforced direct contact information or CM for any additional questions or concerns and extended clinic hours on Mondays and Wednesdays, and Walk-In Urgent Care Located in [facility]. Patient provided with after-hours line for [facility], , which offer night time triageservice and option to transfer to custom protection officer provider if needed. Patient verbalizes understanding, and able to repeat back to ticket writer. documented in this encounter Plan of Treatment Upcoming Encounters Date Type Department Care Team (Late st Contact Info) Description 07/28/2024 10:00 AM EDT Office Visit [facility] ADULT DENTAL [address] [place] [address] Trenton Wilkerson DDS [address] [place] [address] 08/24/2024 9:00 AM EDT Office Visit [facility]INE [address] [place], [place] [phone] Lesia Tran MD [address] [place] [address] documented as of this encounter Visit Diagnoses Not on filedocumented in this encounter Additional Health Concerns Assessment Noted Time PHQ-9 Depression Total Score: 21 024 2:23 PM EST documented as of this encounter Care Teams Research Environmental Scientist Relationship Specialty Start Date End Date Lesia Tran MD [address] [place] [address] PCP - General Internal Medicine 12/07/23 documented as of this encounter
--- OUTSIDE RECORDS SUMMARY | 2024-07-20 11:49 | XMS_ITS | Encounter Summary ---
Author Organization [employer] Address [address] [place] [address] Care Team Providers Care Special Effects Specialist Name Role Phone Roma Bender Primary Care Provider [phone] Neetu Bah Unavailable [phone] Lesia Tran MD Primary Care Provider + Encounter Details Date Type Department Care Team (Late st Contact Info) Description 02/19/2023 Orders Only [facility] [address] [place] [address] Roma Bender FNP [address] [place] [address] Other acute gastritis, presence of bleeding unspecified [...] Description 07/28/2024 10:00 AM EDT Office Visit [facility] ADULT DENTAL [address] [place] [address] Trenton Wilkerson DDS [address] [place] [address] 08/24/2024 9:00 AM EDT Office Visit [facility] MEDICINE [address] [place] [address] Lesia Tran MD [address] [place] [address] documented as of this encounter Visit Diagnoses Diagnosis Other acute gastritis, presence of bleeding unspecified- Primary documented in this encounter Additional Health Concerns Assessment Noted Time PHQ-9 Depression Total Score: 11 023 3:14 PM EDT documented as of this encounter Care Teams Special Effects Specialist Relationship Specialty Start Date End Date Roma Bender FNP [address] [place] [address] PCP - General Family Medicine 01/14/23 12/06/23 Lesia Tran MD [address] [place] [address] PCP - General Internal Medicine 12/07/23 Neetu Bah AGNP [address] [place] [address] Family Medicine 01/14/23 09/02/23 documented as of this encounter
--- OUTSIDE RECORDS SUMMARY | 2024-07-20 11:49 | XMS_ITS | Encounter Summary ---
Author Organization [employer] Address [address] [facility] [address] [place] [address] Care Team Providers Care Material Handling Crew Supervisor Name Role Phone Roma Bender Primary Care Provider [phone] [facility]u Bah [facility] [phone] Lesia Tran MD Primary Care Provider + Reason for Visit * Reason Onset Date Comments Medication Question 05/04/2023 Encounter Details Date Type Department Care Team (Late st Contact Info) Description 05/04/2023 Telephone [facility] MEDICINE [address] [place] [address] Roma Bender FNP [address] [place] [address] Medication Question Social History Tobacco Use Types [...] 2 times daily. Any questions please contact [phone]. documented in this encounter Plan of Treatment Upcoming Encounters Date Type Department Care Team (Late st Contact Info) Description 07/28/2024 10:00 AM EDT Office Visit [facility] ADULT DENTAL [address] [place] [address] Trenton Wilkerson DDS [address] [place] [address] 08/24/2024 9:00 AM EDT Office Visit [facility] MEDICINE [address] [place] [address] Lesia Tran MD [address] [place] [address] documented as of this encounter Visit Diagnoses Not on filedocumented in this encounter Additional Health Concerns Assessment Noted Time PHQ-9 Depression Total Score: 11 023 3:14 PM EDT documented as of this encounter Care Teams Material Handling Crew Supervisor Relationship Specialty Start Date End Date Roma Bender FNP [address] [place] [address] PCP - General Family Medicine 01/14/23 12/06/23 Lesia Tran MD [address] [place] [address] PCP - General Internal Medicine 12/07/23 Neetu Bah AGNP [address] [place] [phone] Family Medicine 01/14/23 09/02/23 documented as of this encounter
--- OUTSIDE RECORDS SUMMARY | 2024-07-20 11:50 | XMS_ITS | Encounter Summary ---
Author Organization [employer] Address [address] [facility] 7t [place] [address] Care Team Providers Care Pipe Threading Machine Operator Name Role Phone Lesia Tran MD Primary Care Provider + Reason for Visit * Reason Onset Date Comments Med Refill 05/15/2024 Encounter Details Date Type Department Care Team (Late st Contact Info) Description 05/15/2024 Telephone [facility] MEDICINE [address] [place] [address] Lesia Tran MD [address] [place] [address] Med Refill Social History Tobacco Use Types [...] 9:47 AM EST Medication was sent to [facility] #[id number] on 05/01/24 with 1 refill. * Telephone Encounter - Kenisha Mtz - 05/15/2024 9:43 AM EST TC from pt requesting medication refill. Medications needing refill : hydrOXYzine pamoate (Vistaril) 25 MG capsule To be sent to: [facility]/pharmacy #[id number] - [address] documented in this encounter Plan of Treatment Upcoming Encounters Date Type Department Care Team (Late st Contact Info) Description 07/28/2024 10:00 AM EDT Office Visit [facility] ADULT DENTAL [address] [place] [address] Trenton Wilkerson DDS [address] [place], [place] [phone] 08/24/2024 9:00 AM EDT Office Visit [facility] MEDICINE [address] [place], [place] [phone] Lesia Tran MD [address] [place] [address] documented as of this encounter Visit Diagnoses Not on filedocumented in this encounter Additional Health Concerns Assessment Noted Time PHQ-9 Depression Total Score: 21 024 2:23 PM EST documented as of this encounter Care Teams Pipe Threading Machine Operator Relationship Specialty Start Date End Date Lesia Tran MD [address] [place] [address] [phone] PCP - General Internal Medicine 12/07/23 documented as of this encounter
--- OUTSIDE RECORDS SUMMARY | 2024-07-20 11:50 | XMS_ITS | Encounter Summary ---
Author Organization [employer] Address 75 [facility] 7t [place] [address] Care Team Providers Care Trade Union Official Name Role Phone Neetu Bah Primary Care Provider Roma Bender Primary Care Provider [phone] Neetu Bah Unavailable Lesia Tran MD Primary Care Provider + Encounter Details Date Type Department Care Team (Late st Contact Info) Description 09/29/2022 Abstract [facility] ADULT DENTAL [address] [place] [address] Trenton Wilkerson DDS [address] [place] [address] Social History Tobacco Use Types Packs/Day Years [...] Description 07/28/2024 10:00 AM EDT Office Visit [facility] ADULT DENTAL [address] [place] [address] Trenton Wilkerson DDS [address] [place] [address] 08/24/2024 9:00 AM EDT Office Visit [facility] MEDICINE [address] [place] [address] Lesia Tran MD [address] [place] [address] documented as of this encounter Visit Diagnoses Not on filedocumented in this encounter Care Teams Trade Union Official Relationship Specialty Start Date End Date Neetu Bah AGNP [address] [place] [address] PCP - General Family Medicine 11/28/20 01/13/23 Roma Bender FNP [address] [place] [address] PCP - General Family Medicine 01/14/23 12/06/23 Lesia Tran MD [address] [place] [address] PCP - General Internal Medicine 12/07/23 Neetu Bah AGNP [address] [place] [address] Family Medicine 01/14/23 09/02/23 documented as of this encounter
--- OUTSIDE RECORDS SUMMARY | 2024-07-20 11:50 | XMS_ITS | Encounter Summary ---
Author Organization [employer] Address 75 [facility] 7t [place] [address] Care Team Providers Care Warehouse And Receiving Supervisor Name Role Phone Neetu Bah Primary Care Provider Roma Bender Primary Care Provider [phone] Neetu Bah Unavailable [phone] Lesia Tran MD Primary Care Provider + Encounter Details Date Type Department Care Team (Late st Contact Info) Description 09/28/2022 Abstract [facility] ADULT DENTAL [address] [place] [address] Trenton Wilkerson DDS [address] [place] [address] Social History Tobacco Use Types Packs/Day Years [...] Description 07/28/2024 10:00 AM EDT Office Visit [facility] ADULT DENTAL [address] [place] [address] Trenton Wilkerson DDS [address] [place] [address] 08/24/2024 9:00 AM EDT Office Visit [facility] MEDICINE [address] [place] [address] Lesia Tran MD [address] [place] [address] documented as of this encounter Visit Diagnoses Not on filedocumented in this encounter Care Teams Warehouse And Receiving Supervisor Relationship Specialty Start Date End Date Neetu Bah AGNP [address] [place] [address] PCP - General Family Medicine 11/28/20 01/13/23 Roma Bender FNP [address] [place] [address] PCP - General Family Medicine 01/14/23 12/06/23 Lesia Tran MD [address] [place] [address] PCP - General Internal Medicine 12/07/23 Neetu Bah AGNP [address] [place] [address] Family Medicine 01/14/23 09/02/23 documented as of this encounter
--- OUTSIDE RECORDS SUMMARY | 2024-07-20 11:50 | XMS_ITS | Encounter Summary ---
Author Organization [employer] Address 75 [facility] 7t [place] [address] Care Team Providers Care Information Officer Name Role Phone Neetu Bah Primary Care Provider Roma Bender Primary Care Provider [phone] Neetu Bah Unavailable [phone] Lesia Tran MD Primary Care Provider + Encounter Details Date Type Department Care Team (Late st Contact Info) Description 09/29/2022 Abstract [facility] ADULT DENTAL [address] [place] [address] Trenton Wilkerson DDS [address] [place] [address] Social History Tobacco Use Types Packs/Day Years [...] Description 07/28/2024 10:00 AM EDT Office Visit [facility] ADULT DENTAL [address] [place] [address] Trenton Wilkerson DDS [address] [place] [address] 08/24/2024 9:00 AM EDT Office Visit [facility] MEDICINE [address] [place] [address] Lesia Tran MD [address] [place] [address] documented as of this encounter Visit Diagnoses Not on filedocumented in this encounter Care Teams Information Officer Relationship Specialty Start Date End Date Neetu Bah AGNP [address] [place] [address] PCP - General Family Medicine 11/28/20 01/13/23 Roma Bender FNP [address] [place] [address] PCP - General Family Medicine 01/14/23 12/06/23 Lesia Tran MD [address] [place] [phone] PCP - General Internal Medicine 12/07/23 Neetu Bah AGNP [address] [place] [address] Family Medicine 01/14/23 09/02/23 documented as of this encounter
--- OUTSIDE RECORDS SUMMARY | 2024-07-20 11:50 | XMS_ITS | Encounter Summary ---
Author Organization [email or web address] Address 75 [facility] 7t [place] [address] Care Team Providers Care Activities Therapist Name Role Phone Lesia Tran MD Primary Care Provider + Reason for Visit * Reason Onset Date Comments medication 02/02/2024 Encounter Details Date Type Department Care Team (Late st Contact Info) Description 02/02/2024 Telephone [facility] ADULT DENTAL [address] [place] [address] Trenton Wilkerson, BJS [address] [place] [address] medication Social History Tobacco Use Types Packs/Day [...] Description 07/28/2024 10:00 AM EDT Office Visit [facility] ADULT DENTAL [address] [place] [address] Trenton Wilkerson DDS [address] [place] [address] 08/24/2024 9:00 AM EDT Office Visit [facility] MEDICINE [address] [place] [address] Lesia Tran MD [address] [place] [address] documented as of this encounter Visit Diagnoses Not on filedocumented in this encounter Additional Health Concerns Assessment Noted Time PHQ-9 Depression Total Score: 21 024 2:23 PM EST documented as of this encounter Care Teams Activities Therapist Relationship Specialty Start Date End Date Lesia Tran MD [address] [place] [phone] PCP - General Internal Medicine 12/07/23 documented as of this encounter
--- OUTSIDE RECORDS SUMMARY | 2024-07-20 11:50 | XMS_ITS | Encounter Summary ---
Author Organization [employer] Address 75 [facility] 7t [place] [address] Care Team Providers Care Shovel Engineer Name Role Phone Lesia Tran MD Primary Care Provider + Reason for Visit * Reason Onset Date Comments rs appt/disconnected call 06/29/2024 Encounter Details Date Type Department Care Team (Late st Contact Info) Description 06/29/2024 Telephone [facility] ADULT DENTAL [address] [place] [address] Trenton Wilkerson DDS [address] [place] [address] rs appt/disconnected call Social History Tobacco Use [...] Fide Urrutia - 06/29/2024 8:54 AM EDT Vickyt called in to rs appt 07/03 for wax try in with Dr. Wilkerson. While I was on the line with desktop technician [facility] the patient disconnected the call.. The [...] Description 07/28/2024 10:00 AM EDT Office Visit [facility] ADULT DENTAL [address] [place] [address] Trenton Wilkerson DDS [address] [place] [address] 08/24/2024 9:00 AM EDT Office Visit [facility] MEDICINE [address] [place], [place] [phone] Lesia Tran MD [address] [place], [place] [phone] documented as of this encounter Visit Diagnoses Not on filedocumented in this encounter Additional Health Concerns Assessment Noted Time PHQ-9 Depression Total Score: 21 024 2:23 PM EST documented as of this encounter Care Teams Shovel Engineer Relationship Specialty Start Date End Date Lesia Tran MD [address] [place] [address] PCP - General Internal Medicine 12/07/23 documented as of this encounter
--- OUTSIDE RECORDS SUMMARY | 2024-07-20 11:50 | XMS_ITS | Encounter Summary ---
Author Organization [employer] Address [address] [place] [address] 7 [place] [address] Care Team Providers Care Station Supervisor Name Role Phone Lesia Amor MD Primary Care Provider + Reason for Referral * Consultation (Routine) - Authorized Specialty Diagnoses / Procedures Referred By Contac t Referred To Contact Sleep Medicine Diagnoses TYSON (obstructive sleep apnea) Lesia Amor MD [address] [place] [address] Phone: tel: fax: Sleep Medicine Service [address], [address] [place] [address] Phone: tel: fax: Referral ID Status Reason Start Date Expiration Date Visits Requested Visits Authorized [id number] Authorized Specialty Services Required 07/17/2024 07/17/2025 1 1 Reason for Visit * Reason Onset Date Comments Appointment Request 07/07/2024 Encounter Details Date Type Department Care Team (Late st Contact Info) Description 07/07/2024 Telephone [facility] MEDICINE [address] [place] [address] [phone] Lesia Amor MD [address] [place] [phone] Appointment Request Social History Tobacco Use Types [...] as of this encounter Miscellaneous Notes * Addendum Note - Lesia Amor MD - 07/17/2024 12:46 PM EDTAddended by: LESIA AMOR on: 07/17/2024 12:46 PM Modules accepted: Orders * Telephone Encounter - Lesia Amor MD - 07/17/2024 12:42 PM EDT I will cancel the sleep study for now, I have started him on Zepbound and see if it helps with sleep apnea as patient is unable to tolerate CPAP in the past. I will refer to sleep medicine for close follow-up AP/please cancel sleep study * Telephone Encounter - Lesia Amor MD - 07/09/2024 9:36 PM EDT RE sleep study, do they want a referral for sleep medicine clinic? Why can't they do a sleep study with my order? Check with dx specialist. In general if Im referring to sleep medicine clinic, I wouldn't order a sleep study. * Telephone Encounter - Nahomy Velazco [place] [...] 2:19 PM EDT ----- Message from Lesia Amor MD sent at 06/20/2024 12:41 PM EDT ----- Patient was referred to sleep specialist last year, please call re next appt, please tell them thathe couldn't use CPAP. documented in this encounter Plan of Treatment Upcoming Encounters Date Type Department Care Team (Late st Contact Info) Description 07/28/2024 10:00 AM EDT Office Visit [facility] ADULT DENTAL [address] [place] [address] Trenton Wilkerson DDS [address] [place] [address] 08/24/2024 9:00 AM EDT Office Visit [facility] MEDICINE [address] [place], [place] [phone] Lesia Amor MD [address] [place], [place] [phone] Scheduled Referrals Name Type Priority Associated Diagnoses Orde r Schedule Referral to Sleep Medicine Outpatient Referral Routine TYSON (obstructive sleep apnea) Expected: 07/17/2024 (Approximate), Expires: 07/17/2025 documented as of this encounter Visit Diagnoses Diagnosis TYSON (obstructive sleep apnea)- Primary Obstructive sleep apnea (adult) (pediatric) documented in this encounter Additional Health Concerns Assessment Noted Time PHQ-9 Depression Total Score: 21 024 2:23 PM EST documented as of this encounter Care Teams Station Supervisor Relationship Specialty Start Date End Date Lesia Amor MD [address] [place], [place] [phone] PCP - General Internal Medicine 12/07/23 documented as of this encounter
--- OUTSIDE RECORDS SUMMARY | 2024-07-20 11:50 | XMS_ITS | Encounter Summary ---
Author Organization [employer] Address 75 [facility] 7t [place] [address] Care Team Providers Care Pipe Puller Name Role Phone Lesia Tran MD Primary Care Provider + Reason for Visit * Reason Onset Date Comments Nurse Triage 06/16/2024 Encounter Details Date Type Department Care Team (Late st Contact Info) Description 06/16/2024 Telephone [facility] MEDICINE [address] [place] [address] Lesia Tran MD [address] [place] [address] Nurse Triage Social History Tobacco Use Types [...] appt from yesterday as he was [place] [facility] ( note requested) Patient with [...] is in agreement to reach out to [facility] and Crisis as needed. Has concerns for [...] had contact with Care Coordinators here at [facility] and is requesting additional help. Patient agrees to have [facility] reach out to him with worsening symptoms. [facility] to [facility] sent. Disposition reviewed and patient in [...] - 06/16/2024 10:29 AM EDT Please obtain [facility] [place] from visit on 06/15/24. Patient scheduled with PCP on Wednesday06/20/24. * Telephone Encounter - Kenisha Mtz - 06/16/2024 9:52 AM EDT Symptoms: Abdominal Pain - Male, Abdominal Swelling Outcome: Schedule an urgent appointment (within 4 hours) or talk to a nurse or provider soon Reason: Started within the past 3 days The caller accepted this outcome. [phone] documented in this encounter Plan of Treatment Upcoming Encounters Date Type Department Care Team (Late st Contact Info) Description 07/28/2024 10:00 AM EDT Office Visit [facility] ADULT DENTAL [address] [place], [place] [phone] Trenton Wilkerson DDS [address] [place] [address] 08/24/2024 9:00 AM EDT Office Visit [facility] MEDICINE [address] [place] [address] Lesia Tran MD [address] [place], [place] [phone] documented as of this encounter Visit Diagnoses Not on filedocumented in this encounter Additional Health Concerns Assessment Noted Time PHQ-9 Depression Total Score: 21 06/09/ 024 2:23 PM EST documented as of this encounter Care Teams Pipe Puller Relationship Specialty Start Date End Date Lesia Tran MD [address] [place] [address] [phone] PCP - General Internal Medicine 12/07/23 documented as of this encounter
--- OUTSIDE RECORDS SUMMARY | 2024-07-20 11:50 | XMS_ITS | Clinical Summary ---
Author Organization [employer] Address [address] [facility] [address] [place] [address] Care Team Providers Care Recycle Worker Name Role Phone Lesia Tran MD [...] 25 Active mirtazapine (Remeron) 15 MG tabletIndicat ions:Anxiety, Severe episode of recurrent major depressive disorder, without psychotic features (CMS/HCC) Take 1 tablet (15 mg) by mouth at bedtime. 30 tablet 1 07/11/19 25 025 Active FLUoxetine (PROzac) 40 MG capsuleIndica tions:Anxiety ,Severe episode of recurrent major depressive disorder, without psychotic features (CMS/HCC) Take 1 capsule (40 mg) by mouth in the morning. 30 capsule 1 07/11/19 25 025 Active OLANZapine (ZyPREXA) 5 MG tabletIndicat ions:Severe episode of recurrent major depressive disorder, without psychotic features (CMS/HCC) Take 1 tablet (5 mg) by mouth at bedtime. 30 tablet 07/11/19 25 025 Active cloNIDine (Catapres) 0.1 MG tabletIndicat ions:Anxiety Take 1 tablet (0.1 mg) by mouth if needed in the morning and at bedtime (For Anxiety). 60 tablet 07/11/19 25 025 Active Ventolin HFA 108 (90 Base) MCG/ACT inhaler Inhale 2 puffs every 4 (four) hours if needed for shortness of breath or wheezing. 06/21/19 25 Active Aspirin Low Dose 81 MG EC tablet Take 1 tablet by mouth Once per day. 05/12/19 25 Active buPROPion XL (Wellbutrin XL) 150 MG 24 hr tablet Take 1 tablet by mouth in the morning. 10/20/19 24 Active Breo Ellipta 200-25 MCG/ACT aerosol powder Inhale 1 puff Once per day. 07/07/19 25 Active hydrOXYzine HCl (Atarax) 25 MG tablet Take 1 tablet by mouth if needed in the morning, at noon, and at bedtime for anxiety (mild). 07/04/19 25 Active Magnesium Extra Strength 400 MG capsule Take 1 capsule by mouth at bedtime. 06/10/19 25 Active Creon 44526-221071 units capsule delayed-relea se particles capsule Take 2 capsules by mouth with breakfast, with lunch, and with evening meal. 05/29/19 25 Active GaviLAX 17 GM/SCOOP powder Take 17 g by mouth Once per day. 12/09/19 24 Active sucralfate (Carafate) 1 g tablet Take 1 tablet by mouth at bedtime. 12/22/19 24 Active OLANZapine (ZyPREXA) 5 MG tablet Take 1 tablet by mouth if needed in the morning, at noon, and at bedtime (agitation). Active Tirzepatide-W eight Management (Zepbound) 2.5 MG/0.5ML solution auto-injector Inject 0.5 mL (2.5 mg) under the skin 1 (one) time per week. 2 mL 1 07/14/19 25 Active hydrOXYzine pamoate (Vistaril) 50 MG [...] eorder (will not trigger notification to Pharmacy)) hydrOXYzine pamoate (Vistaril) 50 MG capsuleIndica tions:Anxiety Take 1 capsule (50 mg) by mouth if needed in the morning, at noon, and at bedtime for anxiety. May take 2 capsules at bedtime. 60 capsule 06/27/19 25 025 Discontinued(I neffective) mirtazapine (Remeron) 15 MG tabletIndicat ions:Anxiety, Severe episode of recurrent major depressive disorder, without psychotic features (CMS/HCC) Take 1 tablet (15 mg) by mouth at bedtime. 30 tablet 1 06/27/19 25 025 Discontinued(R eorder (will not trigger notification to Pharmacy)) FLUoxetine (PROzac) 20 MG capsuleIndica tions:Anxiety ,Severe episode of recurrent major depressive disorder, without psychotic features (CMS/HCC) Take 2 capsules (40 mg) by mouth in the morning. 60 capsule 1 06/27/19 25 025 Discontinued(R eorder (will not trigger notification to Pharmacy)) QUEtiapine (SEROquel) 50 MG tabletIndicat ions:Severe episode of recurrent major depressive disorder, without psychotic features (CMS/HCC) Take 1 tablet (50 mg) by mouth 2 times daily. 60 tablet 1 06/27/19 25 025 Discontinued(A lternate therapy) Active Problems Problem Noted Date Diagnosed Date [...] advised to reach out to therapist or value stream coach (he will request one at methadone program). Advised against using recreational substances or alcohol. Pt will see therapist this afternoon. History of substance use disorder 04/12/2024 Complete edentulism 04/12/2024 TYSON (obstructive sleep apnea) 02/11/2024 Overview (02/11/2024): Sleep study at [facility]: moderate TYSON with nocturnal hypoxemia, <88% 24.1 minutes, lowest 77%. Assessment & Plan (06/20/2024 1:12 PM EDT): Pt has not been able to use CPAP, will call sleep specialist to check next appointment. Advised regarding weight reduction, consider Zepbound. Consider Hypoglossal nerve stimulator implant. Fu with sleep specialist. Assessment & Plan (02/11/2024 3:58 PM EST): Obtain results form Cardiology office ([facility] [place] Mild persistent asthma 02/11/2024 Assessment & Plan (02/11/2024 4:00 PM EST): Doing well on Breo, fu by [facility] Advised re weight reduction. Declined Influenza [...] Plan (02/11/2024 4:01 PM EST): FU by [facility], on Protonix, senna prn constipation Advised [...] moderate intensity exercise. Will hold referral to industrial machine assembler until next appointment once anxiety is better [...] ID: Yaniv is a 37 y.o. White Iranian choose not to disclose-identified cis- male (pronouns [...] for 2.5 years, currently on methadone at [facility], 128mg with a plan [...] intervention , Patient to reach out to [facility] team as needed, and Patient to reach out to [facility] as needed Anxiety 06/10/2023 Overview (10/18/2023): Last Addressed Date: 10/26/2022 Assessment & Plan (02/11/2024 4:04 PM EST): Seen by MH provider at [facility] will bring meds at next appt. He [...] organization. Date Type Department Care Team Description 07/18/[address] [address] Lesia Tran MD 07/17/2024 Patient Outreach [address] [address] Lesia Tran MD Care Coordination ([facility] Jennifer Burgess telephone call outreach) 07/13/2024 10:45 AM EDT Office Visit [address] [address] Lesia Tran MD Morbid obesity (CMS/HCC) (Primary Dx); Anxiety; Dietary counseling; Exercise counseling 07/13/2024 Travel 07/12/[address] [address] Lesia Tran MD Chart prep 07/11/2024 Travel 07/07/[address] [address] Lesia Tran MD Appointment Request 07/04/2024 Travel 07/03/2024 Patient Outreach [address] [address] Lesia Tran MD Care Coordination ([facility]3 [facility] Jennifer Burgess telephone call outreach) 06/29/2024 Patient Outreach [facility] [address] [place], [place] [phone] Lesia Tran MD Transition Of Care (Tcm) (HDF scheduled.) 06/29/[address] [facility] [address] [place] [address] [phone] Trenton Wilkerson DDS rs appt/disconnected call 06/28/[address] [address] Lesia Tran MD Care Management (C3- Initial assessment/LVM) 06/27/2024 Patient Outreach [address] [address] Lesia Tran MD Care Coordination ([address] Jennifer Burgess telephone call outreach) 06/26/2024 Orders Only GENERIC EXTERNAL DATA DEPARTMENT Provider, Generic External Data 06/26/2024 Travel 06/23/2024 Travel 06/20/2024 11:30 AM EDT Office Visit [address] [address] Lesia Tran MD Generalized anxiety disorder with panic attacks (Primary Dx); IFG (impaired fasting glucose); Morbid obesity (CMS/HCC); TYSON (obstructive sleep apnea); Hyperglycemia 06/17/2024 Travel 06/16/2024 Travel 06/16/2024 Population Health Risk Score [facility] ([facility]) Department [address] [place] [phone] Provider, Population Health Generic 06/16/[address] [address] Lesia Tran MD Nurse Triage 06/15/[address] [phone] Lesia Tran MD No Show 06/14/2024 Patient Outreach [address] [address] Lesia Tran MD Care Coordination ([facility] Jennifer Burgess telephone call outreach) 06/12/[address] [address] Lesia Tran MD Chart prep 06/08/2024 Travel 06/08/2024 Patient Outreach [address] [address] Lesia Tran MD Pre-visit Planning (SDOH screening negative and tobacco screening positive) 06/05/[address] [address] Lesia Tran MD Care Management (C3- chart review) 06/02/2024 10:00 AM EST Office Visit [facility] [address] [place] [phone] Trenton Wilkerson DDS Complete edentulism, unspecified edentulism class (Primary Dx) 05/29/2024 Travel 05/24/[address] [address] Lesia Tran MD Results 05/22/2024 Travel 05/19/[address] [address] Lesia Tran MD Results 05/15/2024 Orders Only GENERIC EXTERNAL DATA DEPARTMENT Provider, Generic External Data 05/15/[address] [address] Lesia Tran MD Med Refill 05/12/[address] [facility] [address] [place] [address] [phone] Bobbi Deal, ROXANN Results: Chest CT 05/12/24 05/03/2024 10:00 AM EST Office Visit [facility] [address] [place] [phone] Trenton Wilkerson DDS Complete edentulism, unspecified edentulism class (Primary Dx) 04/30/2024 Travel from Last 3 Months Immunizations Name [...] Sign Reading Time Taken Comments Blood Pressure 142/89 07/13/2024 10:54 AM EDT Pulse 81 07/13/2024 10:54 AM EDT Temperature 36.7 ??C (98.1 ??F) 07/13/2024 10:54 AM E DT Respiratory Rate 12 07/13/2024 10:54 AM EDT Oxygen Saturation 93% 07/13/2024 10:54 AM EDT Inhaled Oxygen Concentration - - Weight 135 kg (297 lb) 07/13/2024 10:54 AM EDT Height 170.2 cm (5' 7 ) 07/13/2024 10:54 AM EDT Body Mass Index 46.52 07/13/2024 10:54 AM EDT Plan of Treatment Upcoming Encounters Date Type Department Care Team (Late st Contact Info) Description 07/28/2024 10:00 AM EDT Office Visit [facility] [address] [place] [address] Trenton Wilkerson DDS [address] [place] [address] 08/24/2024 9:00 AM EDT Office [address] [facility] [address] [place] [address] Lesia Tran MD [address] [place] [address] Health Maintenance Due Date Last Done Comments Dental Prophylaxis 1987 Alcohol/Substance Use Screening 1999 Family Planning (PISQ) 06/23/2002 Pneumococcal Vaccine: Pediatrics (0 to 5 Years) and At-Risk Patients (6 to 49) Years) (1 of 2 - PCV) 06/23/2006 Dental X-Ray: Bitewings 02/21/2015 02/20/2014 COVID-19 Vaccine ( season) 2023 09/11/2020, 07/30/2020 Influenza Vaccine (#1) 2023 , 01/28/2022, 07/14/2021 Depression Monitoring 08/10/2024 02/11/2024, 024 Dental Oral Exam 10/11/2024 04/12/2024, 02/20/2014 Depression Screening 02/10/2025 02/11/2024, 06/10/19 24 SDOH Screening 06/08/2025 06/08/2024 Diabetes: Hemoglobin A1C 06/20/2025 06/20/2024, 03/0 08/2023 Tobacco Screening 07/13/2025 07/13/2024 Dental X-Ray: Full Mouth 04/13/2027 025, 12/01/2023, 09/25/2022, Additional history exists Lipid Panel 06/07/2028 06/08/2023, 02/01/2023 DTaP/Tdap/Td Vaccines (9 - Td or Tdap) 10/26/2032 10/26/2022, 07/21/2021, 05/27/1999, Additional history exists Zoster Vaccines (1 of 2) 06/23/2037 RSV Patients and Patients Aged 60 years or older (1 - 1-dose 75+ series) 06/23/2062 HIB Vaccines Completed 07/03/1989 IPV Vaccines Completed 11/02/1997, 07/04/1992, 07/03/1989, Additional history exists Hepatitis A Vaccines [...] IMPRESSION Routine 05/03/2024 10 :00 AM EST PANORAMIC RADIOGRAPHIC IMAGE Routine 04/12/2024 2:30 PM EST PERIODIC ORAL EVALUATION - ESTABLISHED PATIENT Routine 04/12/2024 2:30 PM EST LIPID PANEL, STANDARD Routine 06/08/2023 8:20 AM EST Class 3 severe obesity due to excess calories without serious comorbidity in adult, unspecified BMI ([facility]/HCC) INTRAORAL - COMPLETE SERIES OF RADIOGRAPHIC IMAGES Routine 02/20/2014 12:00 AM EST from Last 3 Months or Most Recently Relevant to Health Maintenance Results * SARS-CoV-2 RNA, Influenza A/B, and RSV RNA, Ql NAAT (06/26/2024 5:18 PM EDT) Influenza A PCR NEGATIVE Negative [facility] Influenza B PCR NEGATIVE Negative [facility] Resp Syncy Virus RNA Qual PCR NEGATIVE Negative [facility] SARS COV2 PCR NEGATIVE Negative [facility] Comment:All test results mus t [...] use by authorized laboratories.Testing performed on the [facility] GeneXpert utilizingreal-time RT-PCR.All SARS CoV2 and positive influenza A/B results arereported to [facility]. 06/26/2024 5:18 PM EDT 06/26/2024 5:26 PM EDT us Generic External Data Provider LAB MICROBIOLOGY - GENERAL ORDERABLES Final Result [facility] [address] [place] [address] [phone] * (ABNORMAL) Drug Monitoring, Panel 1, Screen, Urine (06/26/2024 5:18 PM EDT) Only the most recent of2 resultswithin the time period is included. Opiate Screen Urine Not Detected Not Detect [facility] Comment:Opiate cut-off is 30 0 ng/mL.Positive results are unconfirmed and should not be used fornon-medical purposes. Barbiturates, Urine Not Detected Not Detect [facility] Comment:Barbiturate cut-off is 200 ng/mL.Positive results are unconfirmed and should not be used fornon-medical purposes. Phencyclidine Screen Urine Not Detected Not Detect [facility] Comment:Phencyclidine cut-of f is 25 ng/mL.Positive results are unconfirmed and should not be used fornon-medical purposes. Amphetamine Screen Urine Not Detected Not Detect [facility] Comment:Amphetamine cut-off is 1000 ng/mL.Positive results are unconfirmed and should not be used fornon-medical purposes. Benzodiazepines Screen Urine Not Detected Not Detect [facility] Comment:Benzodiazepine cut-o ff is 200 ng/mL.Positive results are unconfirmed and should not be used fornon-medical purposes. Cocaine Screen Urine Not Detected Not Detect [facility] Comment:Cocaine cut-off is 3 00 ng/mL.Positive results are unconfirmed and should not be used fornon-medical purposes. Cannabinoid Screen Urine POSITIVE(A) Not Detect [facility] Comment:Cannabinoid cut-off is 50 ng/mL.Positive results are unconfirmed and should not be used fornon-medical purposes. Methadone Screen, Urine Positive(A) Not Detect ng/mL [facility] Comment:Methadone cut-off is 300 ng/mL.Positive results are unconfirmed and should not be used fornon-medical purposes. FENTANYL URINE Not Detected Not Detect [facility] Comment:Fentanyl cut-off is 1 ng/mL.Positive results are unconfirmed and should not be used fornon-medical purposes. Oxycodone Urine Screen Not Detected Not Detect ng/mL [facility] Comment:Oxycodone cut-off is 100 ng/mL.Positive results are unconfirmed and should not be used fornon-medical purposes. Buprenorphine Screen Not Detected Not Detect ng/mL [facility] Comment:Buprenorphine cut-of f is 5 ng/mL.Positive results are unconfirmed and should not be used fornon-medical purposes. 06/26/2024 5:18 PM EDT 06/26/2024 5:26 PM EDT us Generic External Data Provider LAB URINE ORDERAB LES Final Result Performing Organization Address City/[facility] Co de Phone Number [facility] [address] [place] [phone] * Urinalysis w/reflex microscopic (06/26/2024 5:18 PM EDT) Color Urine Yellow [facility] Appearance Urine Clear [facility] PH 8.0 5.0 - 9.0 [facility] Glucose Urine UA Negative Negative mg/dL [facility] Urine Blood Negative Negative [facility] Specific [place] - Urine 1.025 1.005 - 1.025 [facility] Urine Protein Trace Neg-Trace mg/dL [facility] Urine Ketones Trace Negative mg/dL [facility] Nitrite Urine Negative Negative [facility] Leukocyte Esterase Urine Negative Negative [facility] 06/26/2024 5:18 PM EDT 06/26/2024 5:26 PM EDT Narrative [facility] - 06/26/2024 5:35 PM EDT [id number], [employer] us Generic External Data Provider LAB URINE ORDERAB LES Final Result Performing Organization Address [facility] Co de Phone Number [facility] [address] [place] [phone] * Ethanol (06/26/2024 5:08 PM EDT) [facility] ETHANOL (MG/DL) IN SER/PLAS <10 mg/dL [facility] Comment:Serum/plasma ethanol results are to be used formedical/treatment purposes only. 06/26/2024 5:08 PM EDT 06/26/2024 5:12 PM EDT us Generic External Data Provider LAB BLOOD ORDERAB LES Final Result Performing Organization Address [facility] Co de Phone Number [facility] [address] [place] [phone] * TSH with Reflex to Free T4 (06/26/2024 5:08 PM EDT) [facility] TSH reflex Free T4 0.83 0.32 - 4.0 uIU/mL [facility] 06/26/2024 5:08 PM EDT 06/26/2024 5:12 PM EDT us Generic External Data Provider LAB BLOOD ORDERAB LES Final Result Performing Organization Address [facility] Co de Phone Number [facility] [address] [place] [phone] * (ABNORMAL) CBC auto differential (06/26/2024 5:08 PM EDT) [facility] White Blood Count 11.6(H) 4.8 - 10.8 X10*3/uL [facility] Red Blood Count 4.83 4.60 - 5.80 X10*6/uL [facility] Hemoglobin 11.7(L) 14.0 - 18.0 g/dl [facility] Hematocrit 37.2(L) 42.0 - 52.0 % [facility] Mean Corpuscular Volume 77.0(L) 80.0 - 98.0 fL [facility] Mean Corpuscular Hemoglobin 24.2(L) 27.0 - 33.0 pg [facility] Mean Corpuscular HGB Conc 31.5 31.0 - 36.0 g/dl [facility] Red Cell Distribution Width 14.6 11.0 - 16.0 % [facility] Platelet Count 264 160 - 400 X10*3/uL [facility] Mean Platelet Volume 8.9(L) 9.4 - 12.4 fL [facility] Neutrophils Percent Auto 82.4(H) 45 - 73 % [facility] Imm Gran Pct Auto 0.5(H) 0.0 - 0.4 % [facility] Lymphocytes Percent Auto 10.7(L) 20 - 40 % [facility] Monocytes Percent Auto 5.5 2 - 11 % [facility] Eosinophils Percent Auto 0.6 0 - 4 % [facility] Basophils Percent Auto 0.3 0 - 2 % [facility] NRBC Pct Auto 0.0 0.0 - 0.2 /100WBC [facility] Neutrophils Absolute Auto 9.6(H) 2.0 - 8.3 x10*3/uL [facility] Imm Gran Abs Auto 0.06(H) 0.00 - 0.03 X10*3/uL [facility] Lymphocytes Absolute Auto 1.2 1.2 - 4.9 X10*3/uL [facility] Monocytes Absolute Auto 0.6 0.1 - 1.2 X10*3/uL [facility] Eosinophils Absolute Auto 0.1 0.0 - 0.4 X10*3/uL [facility] Basophils Absolute Auto 0.0 0.0 - 0.2 X10*3/uL [facility] NRBC Abs Auto 0.000 0.0 - 0.012 X10*3/uL [facility] 06/26/2024 5:08 PM EDT 06/26/2024 5:12 PM EDT us Generic External Data Provider LAB BLOOD ORDERAB LES Final Result Performing Organization Address [facility]/ZIP Co de Phone Number [facility] [address] [place] [phone] * Magnesium (06/26/2024 5:08 PM EDT) Magnesium 1.9 1.6 - 2.6 mg/dL [facility] 06/26/2024 5:08 PM EDT 06/26/2024 5:12 PM EDT Generic External Data Provider LAB BLOOD ORDERAB LES Final Result Performing Organization Address [facility] Co de Phone Number [facility] [address] [place] [phone] * Lipase (06/26/2024 5:08 PM EDT) Lipase 9 8 - 78 U/L [facility] 06/26/2024 5:08 PM EDT 06/26/2024 5:12 PM EDT us Generic External Data Provider LAB BLOOD ORDERAB LES Final Result Performing Organization Address [facility] Co de Phone Number [facility] [address] [place] [phone] * Creatine Kinase, Total (06/26/2024 5:08 PM EDT) Creatine Kinase Total 52 38 - 174 U/L [facility] 06/26/2024 5:08 PM EDT 06/26/2024 5:12 PM EDT Generic External Data Provider LAB BLOOD ORDERAB LES Final Result Performing Organization Address [facility]/ZIP Co de Phone Number [facility] [address] [place] [phone] * (ABNORMAL) Comprehensive Metabolic Panel (06/26/2024 5:08 PM EDT) Sodium 139 135 - 145 mmol/L [facility] Potassium 4.2 3.3 - 5.1 mmol/L [facility] Chloride 106 96 - 108 mmol/L [facility] Carbon Dioxide 27 22 - 29 mmol/L [facility] Anion Gap 10(L) 12 - 20 [facility] Urea Nitrogen (BUN) 10 9 - 16 mg/dL [facility] Creatinine, Serum 0.89 0.5 - 1.4 mg/dL [facility] Creatinine Clr Calc Pharmacy 126.3 [facility] Comment:eGFR (calculated fro m the MDRD study equation) and eCrCl(calculated from the Cockcroft-Gault equation) are based ondifferent parameters and may not yield comparable results.If eCrCl result is absurd, please check patient'sheight/weight. Estimated Glomerular Filt Rate >60 [facility] Comment:Chronic Kidney Disea se: Estimated GFR < 60 mL/min/[id number] Kidney Disease: Estimated GFR < 15 mL/min/1.73m2 Glucose 106 60 - 115 mg/dL [facility] Calcium 8.6 8.4 - 10.2 mg/dL [facility] Bilirubin, Total 0.3 0.0 - 1.0 mg/dL [facility] Aspartate Amino Transferase 19 5 - 37 U/L [facility] Alanine Aminotransferase 19 0 - 40 U/L [facility] Total Protein 7.1 6.5 - 8.0 g/dL [facility] Albumin Level 3.7 3.5 - 5.0 g/dL [facility] Alkaline Phosphatase 94 39 - 117 U/L [facility] 06/26/2024 5:08 PM EDT 06/26/2024 5:12 PM EDT us Generic External Data Provider LAB BLOOD ORDERAB LES Final Result [facility] [address] [place] [phone] * POCT HGB A1C (06/20/2024 12:05 [...] Subclass 1 702 382 - 929 mg/dL [facility] IgG Subclass 2 304 241 - 700 mg/dL [facility] IgG Subclass 3 37 22 - 178 mg/dL [facility] IgG Subclass 4 92.2(A) 4 - 86 mg/dL [facility] Immunoglobulin G, Serum 1172 600 - 1640 mg/dL [facility] Comment:THIS TEST WAS PERFOR MED AT:[facility] [place] [phone] AMAYA MD 05/15/2024 3:30 PM EST 05/15/2024 3:30 PM EST us Generic External Data Provider LAB BLOOD ORDERAB LES Final Result [facility] [address] [place] [phone] * (ABNORMAL) Immunoglobulins, Quantitative, IgA, IgG, IgM (05/15/2024 3:30 PM EST) IMMUNOGLOBULIN G 1274 600 - 1640 mg/dL [facility] IMMUNOGLOBULIN A 542(A) 47 - 310 mg/dL [facility] Immunoglobulin M 277 50 - 300 mg/dL [facility] Comment:THIS TEST WAS PERFOR MED AT:[facility] [place] [phone] AMAYA MD 05/15/2024 3:30 PM EST 05/15/2024 3:30 PM EST us Generic External Data Provider LAB BLOOD ORDERAB LES Final Result [facility] [address] [place] [phone] * CT Chest w/o Contrast (05/12/2024 9:03 AM EST) Anatomical Region Laterality Modality Body, Chest Computed Tomogra phy 05/12/2024 9:03 AM EST Narrative 05/12/2024 9:54 AM EST ? [facility] ?[address] ?[place] [address] ? CT Scan Report ? Signed ? Patient: Yaniv Gutierrez ?MR#: [id number] ? : 1985 ?Acct:[id number] ? Age/Sex: 38 / M ?ADM Date: 05/12/24 ? Loc: HO.CT ? Attending Dr: Samantha Davis VENTILATING EXPERT ? Ordering Physician: Samantha Davis NP ?? Date of Service: 05/12/24 ?? Procedure(s): CT chest wo IV con ?? Accession Number(s): [id number] ? cc: Roma Bender VENTILATING EXPERT; Samantha Davis VENTILATING EXPERT ? Report Number: ?? [id number]: Total DLP = ??307.00 mGy-cm ?? EXAMINATION: [...] DLP: 307 mGy centimeter. ? FINDINGS: ? [employer]: Large body habitus. No hyperinflation. ? LUNGS: [...] in OV> ? 05/12/24 0951 ? DD/ 09 ? TD/TT: 05/12/24 09 ? Supervisor Nurse: ? Procedure Note Donotuseinterpreter, Image - 05/12/[address] [address] [address] Scan Report Signed Patient: Yaniv Gutierrez GMR#: [id number] : 1985Acct:[id number] Age/Sex: 38 / MADM Date: 05/12/24 Loc: HO.CT Attending Dr: Samantha Davis NP Ordering Physician: Samantha Davis NP Date of Service: 05/12/24 Procedure(s): CT chest wo IV con Accession Number(s): [id number] cc: Roma Bender VENTILATING EXPERT; Samantha Davis NP Report Number: [id number]: Total DLP = 307.00 mGy-cm EXAMINATION: CT [...] reconstruction technique. DLP: 307 mGy centimeter. FINDINGS: [employer] [employer]: Large body habitus. No hyperinflation. LUNGS: Small [...] MDin OV> 05/12/2451 DD/ 2 TD/TT: 05/12/24927 Supervisor Nurse: [facility] External Provider IMG CT PROCEDURES Final Result * (ABNORMAL) Lipid Panel, Standard (06/08/2023 8:20 AM EST) Triglycerides 236(H) <150 mg/dL [facility] Comment:Desirable Triglyceri de: less than 150 mg/dLBorderline High Triglyceride 150-199 mg/dLHigh Triglyceride: 200-499 mg/dLVery High Triglyceride: greater than or equal to 5OO mg/dL Cholesterol 137 <200 mg/dL [facility] Comment:Desirable Cholestero l: less than 200 mg/dLBorderline High Cholesterol: 200-239 mg/dLHigh Cholesterol: greater than 239 mg/dL LDL Cholesterol Calculated 57 <100 mg/dL [facility] Comment:Desirable LDL: less than 100 mg/dLNear Optimal/Above Optimal LDL: 110- 129 mg/dLBorderline High LDL: 130-159 mg/dLHigh LDL: 160-189 mg/dLVery High LDL: greater than or equal to 190 mg/dL HDL Cholesterol 33(L) >40 mg/dL [facility] Comment:Desirable HDL: great er than 40 mg/dL Note: This HDL assay may give artificially low results in patients with liver disease. Blood Venous blood specimen / Unknown 06/08/2023 8:20 AM EST 06/08/2023 11:33 AM EST Yesica Ibarra MD LAB BLOOD ORDERAB LES Final Result [facility] [address] [place] [address] [phone] from Last 3 Months or Most Recently Relevant to Health Maintenance Insurance [facility] C3 HSN FULL DENTAL-[facility] MEDICAID STAND ADULT Care Teams Recycle Worker Relationship Specialty Start Date End Date Lesia Tran MD [address] [place] [phone] PCP - General Internal Medicine 12/07/23
--- OUTSIDE RECORDS SUMMARY | 2024-07-20 11:50 | XMS_ITS | Encounter Summary ---
Author Organization [employer] Address [address] [place] [address] [address] [place] [address] Care Team Providers Care Environmental Web Crawler Name Role Phone Neetu Bah Primary Care Provider Roma Bender Primary Care Provider [phone] Neetu Bah Unavailable [phone] Lesia Tran MD Primary Care Provider + Reason for Visit * Reason Onset Date Comments New Patient 11/18/2022 Encounter Details Date Type Department Care Team (Late st Contact Info) Description 11/18/2022 Telephone [facility] [address] [place] [address] Koby Holland MD [address] [place], [place] [phone] New Patient Social History Tobacco Use Types [...] been transfer over to wait list for [employer]. EFFECTIVE SINCE 11/24/2022 * Telephone Encounter - Lisa Zarate Marianne - 11/18/2022 10:33 AM EDT Tc to Pt , informed that we do take insurance, but must call Outline App to change location. Once done, to please call back to facility at [phone] documented in this encounter Plan of Treatment Upcoming Encounters Date Type Department Care Team (Late st Contact Info) Description 07/28/2024 10:00 AM EDT Office Visit [facility] AD[facility] DENTAL [address] [place] [address] Trenton Wilkerson DDS [address] [place] [address] 08/24/2024 9:00 AM EDT Office Visit [facility] [address] [place] [address] Lesia Tran MD [address] [place] [address] documented as of this encounter Visit Diagnoses Not on filedocumented in this encounter Care Teams Environmental Web Crawler Relationship Specialty Start Date End Date Neetu Bah AGNP [address] [place] [phone] PCP - General Family Medicine 11/28/20 01/13/23 Roma Bender FNP [address] [place] [address] PCP - General Family Medicine 01/14/23 12/06/23 Lesia Tran MD [address] [place] [phone] PCP - General Internal Medicine 12/07/23 Neetu Bah AGNP [address] [place] [phone] Family Medicine 01/14/23 09/02/23 documented as of this encounter
[2024-08-07 21:53] VITALS: BMI 46.4
== END 2024-07-20 10:50 | disposition home or self-care (01) ==
LOC: HO.ENCR 10:04
PROVIDERS: PCP Nurse Practitioner Family; Visit Provider Dietitian, Registered
DX: E66.01 Morbid (severe) obesity due to excess calories (principal)

== ENCOUNTER → 2024-07-20 10:03 | Outpatient (BNVA) | payer MEDICAID, SELFPAY | PROVIDERS: PCP Nurse Practitioner Family; Visit Provider Dietitian, Registered | DX: E66.01 Morbid (severe) obesity due to excess calories (principal); Z71.3 Dietary counseling and surveillance; Z68.42 Body mass index [BMI] 45.0-49.9, adult | CPT/HCPCS: 97802 ==

== ENCOUNTER 2024-07-22 11:21 | Emergency (ER) | payer MEDICAID, SELFPAY ==
--- NOTE | ~2024-07-22 | XR_ITS ---
CLINICAL HISTORY: chest pain 2 view chest x-ray Comparison: 06/15/2024 Findings: No consolidation or effusion. Heart size is normal. No acute fracture. IMPRESSION: 1. No acute findings. This document has been electronically signed by: Blake Licea MD on 07/22/2024 13:44:13
[2024-07-22 11:29] VITALS: BP 138/94; PULSE 85; O2SAT 96
--- NOTE | 2024-07-22 11:32 | ECG_ITS ---
Test Reason : SOB Blood Pressure : */* mmHG Vent. Rate : 89 BPM Atrial Rate : 89 BPM P-R Int : 146 ms QRS Dur : 100 ms QT Int : 408 ms P-R-T Axes : 27 2 19 degrees QTcB Int : 496 ms Normal sinus rhythm Normal ECG When compared with ECG of 27-Jun-2024 11:29, No significant change was found Referred By: Carley Bishop Electronically Signed By: SARAH ZAMBRANO MD
--- NOTE | 2024-07-22 11:33 | ED_ITS ---
HPI - SOB/Dyspnea General Chief Complaint: Psychiatric Symptoms Stated Complaint: SOB,FREEZING/SWEATY,ANX,SI TO EMS D/T ILLNESS Time Seen by Provider: 07/22/24 11:30 Source: patient, EMS, RN notes reviewed and old records reviewed Mode of arrival: EMS Limitations: no limitations History of Present Illness ED Provider: Fortino Bishop PA-C HPI Narrative: 39 yo male with history of polysubstance abuse on methadone, chronic abdominal pain, gastritis, pneumonia, morbid obesity, TYSON noncompliant w/ CPAP, who presents to the ER from home via EMS for evaluation of diaphoresis, anxiety, tingling in his, hands, feet and anus. He reports shortness of breath, nausea and suicidal thoughts. He states he has been in and out of this hospital for multiple complaints and issues over the last 2 years. He states he is on 125 mg of methadone and gets take home bottles every month. He last took it at 3-4 am because that is when he usually wakes up. He ademently denies any drug or ETOH use. Denies over or undertaking his psych medications and that they were changed recently. he is on zyprexa and no longer on seroquel. MD elicited complaint: shortness of breath Onset (ago): hour(s) Timing: progressively worsening Treatment prior to arrival: none Related Data Home oxygen amount: none Home Medications ?Medication ?Instructions ?Recorded ?Confirmed albuterol sulfate 90 mcg/actuation 2 puff inhalation Q4H PRN wheezing 09/02/23 07/22/24 aerosol inhaler (Ventolin HFA) aspirin 81 mg tablet,delayed 81 mg PO DAILY 09/02/23 07/22/24 release mirtazapine 15 mg tablet 15 mg PO BEDTIME 09/02/23 07/22/24 acetaminophen 650 mg 650 mg PO Q8H PRN moderate pain 03/11/24 07/22/24 tablet,extended release methadone 10 mg/mL oral 125 mg PO DAILY 03/11/24 07/22/24 concentrate (Methadone Intensol) polyethylene glycol 3350 17 17 g PO DAILY PRN Constipation 03/11/24 07/22/24 gram/dose oral powder (Miralax) clonidine HCl 0.1 mg tablet 0.1 mg PO BID PRN anxiety 07/22/24 07/22/24 ferrous sulfate 325 mg (65 mg 325 mg PO MOWEFR@0900 07/22/24 07/22/24 iron) tablet,delayed release olanzapine 5 mg tablet 5 mg PO BEDTIME agitation 07/22/24 07/22/24 sennosides 8.6 mg tablet (Natural 17.2 mg PO BID PRN constipation 07/22/24 07/22/24 Senna Laxative) Previous Rx's ?Medication ?Instructions ?Recorded esomeprazole magnesium 40 mg 40 mg PO DAILY #30 caps 01/14/24 capsule,delayed release (Nexium) famotidine 40 mg tablet 40 mg PO BEDTIME 90 days #90 tabs 01/14/24 [id number]-[id number]-ezyfdym 2 cap PO TID #90 caps 04/06/24 36,000-114,000-180,000 unit capsule,delay rel (Creon) magnesium oxide 400 mg PO BEDTIME #30 caps 04/14/24 fluticasone furoate 200 1 inh inhalation DAILY #60 ea 05/10/24 mcg-vilanterol 25 mcg/dose inhalation powder (Breo Ellipta) ondansetron HCl 4 mg tablet 4 mg PO Q8H PRN nausea and 05/31/24 vomiting #10 tabs fluoxetine 20 mg capsule 40 mg (2 x 20 mg) PO DAILY #0 caps 07/03/24 hydroxyzine HCl 25 mg tablet 25 mg PO TID PRN mild anxiety 30 07/03/24 days #90 tabs Allergies Allergy/AdvReac Type Severity Reaction Status Date / Time Penicillins [PENICILLINS] Allergy Unknown RASH Verified 07/22/24 11:40 Review of Systems 2 Review of Systems: Yes all other systems are reviewed and are negative [facility] Past Medical History Medical History Exocrine pancreatic insufficiency Polysubstance abuse No known health problems Social History Social History Household Members: Family Housing: Apartment Do you presently have visiting nurse or other home services: No Alcohol intake: former Patient Tobacco Use Status: Former Tobacco user Smoked in Last 30 Days: Yes Use of substances other than those prescribed or required for medical reasons: Yes Substance Use Type: Marijuana Substance Use Frequency: Daily Advance Directives: Yes Advance Directives on File: Yes Advance Directives Date on File: 03/15/24 Do you have a plan to hurt others: Vague service: No Sexual orientation: Straight/Heterosexual Physical Exam 2 Vital Signs: Vital Signs: Last Vital Signs Temp 97.9 F 07/22/24 11:38 Pulse 85 07/22/24 14:00 Resp 20 07/22/24 14:00 BP 132/70 07/22/24 14:00 Pulse Ox 97 07/22/24 14:00 O2 Del Method Room Air 07/22/24 14:00 BMI result Body Mass Index 47.1 Appearance: Alert, pale, diaphoretic, Oriented X3. Moderate distress, restless Head: normocephalic, atraumatic. Eyes: Pupils equal, round and reactive to light. ENT: Pharynx normal. No tonsillar swelling or exudate. Neck: Normal inspection. Neck supple. CVS: Normal heart rate and rhythm. Pulses normal. Respiratory: No respiratory distress. Breath sounds distended Abdomen: Obese and nontender. +BS x4 : normal external inspection, normal rectal tone. no palpable masses Skin: Skin warm and dry. Normal skin color. Normal skin turgor. No rashes. Extremities: No lower extremity edema. No joint swelling. Neuro/psych: Oriented X 3. No motor deficit. No sensory deficit. CN II-XII intact. Normal speech and cognition. Course Reevaluation(s) Reevaluation #1: Physician observation started at 1325. Patient placed in physician observation because patient is awaiting CARE team evaluation for the possible need of inpatient psych admission. Medical workup is unremarkable. Patient's symptoms improved significantly after ativan. At the time observation was started patient's vital signs were stable. Patient is alert and oriented. Neuro exam is non-focal. CV: RRR and lungs are clear. Will continue to monitor. Time: 13:25 Reevaluation #2: Patient is seen with the care team and cleared for discharge. He was recently admitted for inpatient psych and has follow-up scheduled for this week Time: 18:38 Medications Administered Discontinued Medications Generic Name Dose Route Start Last Admin Trade Name Freq PRN Reason Stop Dose Admin Lorazepam 2 mg 07/22/24 11:50 07/22/24 11:58 Lorazepam 1 Mg Tablet PO 07/22/24 11:51 2 mg ONCE ONE Administration Ondansetron HCl 4 mg 07/22/24 11:52 07/22/24 11:58 Ondansetron Hcl 4 Mg/2 Ml Vial IVPUSH 07/22/24 11:53 4 mg ONCE ONE Administration Medical Decision Making Medical Decision Making [facility] Narrative: 39 yo male with history of polysubstance abuse on methadone, chronic abdominal pain, gastritis, pneumonia, morbid obesity, TYSON noncompliant w/ CPAP, who presents to the ER from home via EMS for evaluation of diaphoresis, anxiety, tingling in his hands, feet and anus. He reports shortness of breath, nausea and suicidal thoughts. Symptoms started this morning and have worsening. History of similar presentations in the past, he reports it has been happening for weeks. Arrives diaphoretic and pale. He states he has all over body tingling. hemodynamically stable and denies illicit drug use since last February. he states he needs something stronger than zyprexa for his anxiety PO ativan given and medical workup started. his EKG is unremarkbale. CXR clear. Labs reassuring. WBC elevation is chronic. no evidence of infection Differential Diagnosis Differential Diagnoses: The differential diagnosis associated with the presentation includes acute drug intoxication, opiate withdrawal, etoh withdrawal, anxiety/panic attack, SI Admission/Observation Consideration of admission/observation: Escalation of care including admission/observation considered Lab Data [facility] Lab Attestation statement: I reviewed the patient's lab results. stable anemia, leukocytosis, no metabolic derangement 07/22/24 11:46 07/22/24 11:46 Labs: Lab Results 07/22/24 Range/Units 11:46 WBC 12.1 H (4.8-10.8) X10*3/uL RBC 4.68 (4.60-5.80) X10*6/uL Hgb 11.5 L (14.0-18.0) g/dl Hct 36.8 L (42.0-52.0) % MCV 78.6 L (80.0-98.0) fL MCH 24.6 L (27.0-33.0) pg MCHC 31.3 (31.0-36.0) g/dl RDW 15.9 (11.0-16.0) % Plt Count 283 D (160-400) X10*3/uL MPV 8.8 L (9.4-12.4) fL Immature Gran % (Auto) 1.4 H (0.0-0.4) % Neut % (Auto) 80.0 H (45-73) % Lymph % (Auto) 9.1 L (20-40) % [place] % (Auto) 7.4 (2-11) % Eos % (Auto) 1.7 (0-4) % Baso % (Auto) 0.4 (0-2) % Lymph # (Auto) 1.1 L (1.2-4.9) X10*3/uL [place] # (Auto) 0.9 (0.1-1.2) X10*3/uL Eos # (Auto) 0.2 (0.0-0.4) X10*3/uL Baso # (Auto) 0.1 (0.0-0.2) X10*3/uL Abs Immat Gran (auto) 0.17 H (0.00-0.03) X10*3/uL Absolute Neuts (auto) 9.7 H (2.0-8.3) x10*3/uL Absolute Nucleated RBC 0.000 (0.0-0.012) X10*3/uL Nucleated RBC % (auto) 0.0 (0.0-0.2) /100WBC Sodium 138 (135-145) mmol/L Potassium 3.9 (3.3-5.1) mmol/L Chloride 103 (96-108) mmol/L Carbon Dioxide 27 (22-29) mmol/L Anion Gap 12 (12-20) BUN 8 L (9-16) mg/dL Creatinine 0.94 (0.5-1.4) mg/dL Estim Creat Clear Calc 143.3 Estimated GFR > 60 Random Glucose 133 H (60-115) mg/dL Calcium 8.7 (8.4-10.2) mg/dL Magnesium 1.9 (1.6-2.6) mg/dL Total Bilirubin 0.3 (0.0-1.0) mg/dL Direct Bilirubin 0.1 (0.0-0.5) mg/dL AST 26 (5-37) U/L ALT 27 (0-40) U/L Alkaline Phosphatase 111 (39-117) U/L Troponin I High Sens < 2.7 (<3.5-35.0) ng/L B-Natriuretic Peptide < 10 (<100) pg/mL Total Protein 7.2 (6.5-8.0) g/dL Albumin 3.6 (3.5-5.0) g/dL Urine Color Yellow Urine Appearance Clear Urine pH >= 9.0 (5.0-9.0) Ur Specific [place] 1.010 (1.005-1.025) Urine Protein Negative (Neg-Trace) mg/dL Urine Glucose (UA) Negative (Negative) mg/dL Urine Ketones Negative (Negative) mg/dL Urine Blood Negative (Negative) Urine Nitrite Negative (Negative) Ur Leukocyte Esterase Negative (Negative) Urine Opiates Screen Not Detected (Not Detect) Ur Buprenorphine Scrn Not Detected (Not Detect) ng/mL Ur Oxycodone Screen Not Detected (Not Detect) ng/mL Urine Methadone Screen Positive H (Not Detect) ng/mL Urine Fentanyl Screen Not Detected (Not Detect) Ur Barbiturates Screen Not Detected (Not Detect) Ur Phencyclidine Scrn Not Detected (Not Detect) Ur Amphetamines Screen Not Detected (Not Detect) U Benzodiazepines Scrn Not Detected (Not Detect) Urine Cocaine Screen Not Detected (Not Detect) U Marijuana (THC) Screen POSITIVE H (Not Detect) Ethyl Alcohol < 10 mg/dL Influenza Type A (PCR) NEGATIVE (Negative) Influenza Type B (PCR) NEGATIVE (Negative) RSV RNA Qual (PCR) NEGATIVE (Negative) SARS-CoV-2 RNA (RT-PCR) NEGATIVE (Negative) Independent Interpretation I performed an independent interpretation of an: EKG and Plain X-Ray Interpretation: ekg with normal sinus rhythm, HR 89, no ST segment elevations or depressions cxr clear without focal PNA or effusion Radiology Impression Discussion of test interpretation with radiology: I have reviewed the radiologist's reading. Independent Historian Clinical information obtained from an independent historian. History obtained from or confirmed by: EMS External Record Review External record reviewed: Prior outpatient labs and Prior outpatient radiology Prescription Management I considered prescription management with: Other (anxiolytic ) Chronic Conditions Patient?s care impacted by: Other (opioid use disorder) Critical Care Time Critical Care Time Critical Care Time: No Discharge Plan Discharge Clinical Impression: Suicidal ideation, Acute anxiety Patient Disposition: Home, Self-Care Instructions: Suicide Prevention (ED) Additional Instructions: Follow-up with all of your appointments scheduled as planned You were seen in our Emergency Department today for treatment of a behavioral health issue. It is important after your visit that you follow up with either your behavioral health provider or a primary care doctor within 7 days.? If you have trouble finding a therapist you can reach out to [address] [phone] The National Suicide and Crisis Lifeline can be reached 7 days a week 24 hours a day.? Call 988 to speak with someone.? Return for any worsening symptoms or concerns such as thoughts of self harm or harm to others. Please call 911 if you feel your mental health is worsening.? Prescriptions: No Action Creon 36,000-114,000- 180,000 unit capsule,delayed release(DR/EC) 2 cap PO TID Qty: 90 2RF Rx Instructions: administer with meals and/or snacks fluticasone furoate-vilanterol [Breo Ellipta] 200-25 mcg/dose blister with device 1 inh inhalation DAILY Qty: 60 2RF acetaminophen 650 mg tablet extended release 650 mg PO Q8H PRN (Reason: moderate pain) polyethylene glycol 3350 [Miralax] 17 gram/dose powder 17 g PO DAILY PRN (Reason: Constipation) methadone [Methadone Intensol] 10 mg/mL Concentrate 125 mg PO DAILY ondansetron HCl 4 mg tablet 4 mg PO Q8H PRN (Reason: nausea and vomiting) Qty: 10 0RF hydroxyzine HCl 25 mg Tablet 25 mg PO TID PRN (Reason: mild anxiety) 30 Days Qty: 90 0RF fluoxetine 20 mg Capsule 40 mg PO DAILY Qty: 0 0RF sennosides [Natural Senna Laxative] 8.6 mg tablet 17.2 mg PO BID PRN (Reason: constipation) olanzapine 5 mg tablet 5 mg PO BEDTIME clonidine HCl 0.1 mg tablet 0.1 mg PO BID PRN (Reason: anxiety) ferrous sulfate 325 mg (65 mg iron) Tablet,Delayed Release (Dr/Ec) 325 mg PO MOWEFR@0900 aspirin 81 mg tablet,delayed release (DR/EC) 81 mg PO DAILY albuterol sulfate [Ventolin HFA] 90 mcg/actuation HFA aerosol inhaler 2 puff inhalation Q4H PRN (Reason: wheezing) mirtazapine 15 mg tablet 15 mg PO BEDTIME esomeprazole magnesium [Nexium] 40 mg capsule,delayed release(DR/EC) 40 mg PO DAILY Qty: 30 5RF famotidine 40 mg tablet 40 mg PO BEDTIME 90 Days Qty: 90 3RF magnesium oxide 400 mg magnesium capsule 400 mg PO BEDTIME Qty: 30 2RF Interventions: Adolphus-Suicide Risk Severity Scale Last Done: 07/22/24 11:49 Print Language: Guinean
[2024-07-22 11:38] VITALS: BP 136/85; PULSE 96; RESP 22; TEMP 36.6; O2SAT 97; BMI 47.1
[2024-07-22] MEDS: LORazepam 1 MG TABLET 2 MG PO (11:58)
[2024-07-22] MEDS: ondansetron HCL 4 MG/2 ML VIAL IVPUSH (11:58)
[2024-07-22 12:03] LABS: MANUAL DIFF FLAG NO
[2024-07-22 12:05] VITALS: BP 136/85; PULSE 96; RESP 22; O2SAT 97
[2024-07-22 12:05] LABS: Basophils Absolute Auto 0.1 X10*3/uL (0.0-0.2); Basophils Percent Auto 0.4 % (0-2); Eosinophils Absolute Auto 0.2 X10*3/uL (0.0-0.4); Eosinophils Percent Auto 1.7 % (0-4); Hematocrit 36.8 % (42.0-52.0); Hemoglobin 11.5 g/dl (14.0-18.0); Imm Gran Abs Auto 0.17 X10*3/uL (0.00-0.03); Imm Gran Pct Auto 1.4 % (0.0-0.4); Lymphocytes Absolute Auto 1.1 X10*3/uL (1.2-4.9); Lymphocytes Percent Auto 9.1 % (20-40); Mean Corpuscular HGB Conc 31.3 g/dl (31.0-36.0); Mean Corpuscular Hemoglobin 24.6 pg (27.0-33.0); Mean Corpuscular Volume 78.6 fL (80.0-98.0); Mean Platelet Volume 8.8 fL (9.4-12.4); Monocytes Absolute Auto 0.9 X10*3/uL (0.1-1.2); Monocytes Percent Auto 7.4 % (2-11); Neutrophils Absolute Auto 9.7 x10*3/uL (2.0-8.3); Platelet Count 283 X10*3/uL (160-400); Red Blood Count 4.68 X10*6/uL (4.60-5.80); Red Cell Distribution Width 15.9 % (11.0-16.0); White Blood Count 12.1 X10*3/uL (4.8-10.8)
[2024-07-22 12:07] LABS: Appearance Urine Clear; Color Urine Yellow; Glucose Urine UA Negative (Negative); Leukocyte Esterase Urine Negative (Negative); Nitrite Urine Negative (Negative); PH >= 9.0 (5.0-9.0); Urine Blood Negative (Negative); Urine Ketones Negative (Negative); Urine Protein Negative (Neg-Trace)
[2024-07-22 12:17] LABS: Amphetamine Screen Urine Not Detected (Not Detect); Barbiturates, Urine Not Detected (Not Detect); Benzodiazepines Screen Urine Not Detected (Not Detect); Buprenorphine Scr Not Detected (Not Detect); Cannabinoid Screen Urine POSITIVE (Not Detect); Cocaine Screen Urine Not Detected (Not Detect); Fentanyl, urine Not Detected (Not Detect); Methadone Screen, Urine Positive (Not Detect); Opiate Screen Urine Not Detected (Not Detect); Oxycodone Screen Urine Not Detected (Not Detect); Phencyclidine Screen Urine Not Detected (Not Detect)
[2024-07-22 12:35] LABS: B Type Natriuretic Peptide < 10 pg/mL (<100)
[2024-07-22 12:36] LABS: Alanine Aminotransferase 27 U/L (0-40); Albumin Level 3.6 g/dL (3.5-5.0); Anion Gap 12 (12-20); Aspartate Amino Transferase 26 U/L (5-37); Bilirubin Direct 0.1 mg/dL (0.0-0.5); Bilirubin Total 0.3 mg/dL (0.0-1.0); Blood Urea Nitrogen 8 mg/dL (9-16); Calcium 8.7 mg/dL (8.4-10.2); Carbon Dioxide 27 mmol/L (22-29); Chloride 103 mmol/L (96-108); Creatinine Clr Calc Pharmacy 143.3; Estimated Glomerular Filt Rate > 60; Ethanol < 10 mg/dL; Glucose Random 133 mg/dL (60-115); Magnesium 1.9 mg/dL (1.6-2.6); Potassium 3.9 mmol/L (3.3-5.1); Sodium 138 mmol/L (135-145); Total Protein 7.2 g/dL (6.5-8.0); Troponin-I High Sensitivity < 2.7 ng/L (<3.5-35.0)
[2024-07-22 12:46] LABS: Influenza A PCR NEGATIVE (Negative); Influenza B PCR NEGATIVE (Negative); Resp Syncy Virus RNA Qual PCR NEGATIVE (Negative); SARS COV2 PCR INHOUSE NEGATIVE (Negative)
[2024-07-22 13:12] LABS: Alkaline Phosphatase 111 U/L (39-117)
[2024-07-22 14:00] VITALS: BP 132/70; PULSE 85; RESP 20; O2SAT 97
--- NOTE | 2024-07-22 14:22 | PC.NURSE ---
Report given to ROXANN Hector. IV to be taken out prior to transfer.
--- NOTE | 2024-07-22 14:36 | PC.NURSE ---
Assumed care for pt at 1435. Pt appears to be diaphoretic. A&Ox4. Pt used the bathroom and is now in his room resting. Will continue plan of care for care team [facility].
--- NOTE | 2024-07-22 15:04 | HE.PHANOTE ---
Re: Methadone Last dose verified at [facility] for Methadone 125 mg daily on 07/21/24. Patient has 27 take home doses.
--- NOTE | 2024-07-22 17:40 | PHA.MEDREC ---
Pharmacy Consult ? Medication Reconciliation Pharmacy has completed the medication reconciliation. Reviewed med rec done by nursing (Razia). Pt reports no longer taking bupropion or quetiapine. Pt reports taking clonidine PRN, Creon, and Olanzapine 5 mg bedtime.
[2024-07-22 18:42] VITALS: BP 149/106; PULSE 79; RESP 16; TEMP 36.1
== END 2024-07-22 18:47 | disposition home or self-care (01) ==
PROVIDERS: Physician Assistant; Emergency Provider Emergency Medicine
DX: F41.9 Anxiety disorder, unspecified (principal); R45.851 Suicidal ideations; R06.02 Shortness of breath; R61 Generalized hyperhidrosis; R11.0 Nausea; Z79.899 Other long term (current) drug therapy; Z03.818 Encounter for observation for suspected exposure to other biological agents ruled out
CPT/HCPCS: 0241U; 71046; 80048; 80076; 80307; 81003; 83735; 83880; 84484; 85025; 93005; 96374; 99285; J2405; S9485

== ENCOUNTER → 2024-07-22 11:32 | Outpatient (BNV) | payer MEDICAID, SELFPAY | PROVIDERS: Emergency Provider Emergency Medicine; Visit Provider Specialist | DX: R07.9 Chest pain, unspecified (principal) | CPT/HCPCS: 71046 ==

== ENCOUNTER → 2024-07-22 11:32 | Outpatient (BNV) | payer MEDICAID, SELFPAY | PROVIDERS: Emergency Provider Emergency Medicine; Visit Provider Internal Medicine Cardiovascular Disease | DX: R06.02 Shortness of breath (principal) | CPT/HCPCS: 93010 ==

== ENCOUNTER 2024-07-26 08:05 | Emergency (ER) | payer MEDICAID, SELFPAY ==
[2024-07-26 08:33] VITALS: BP 123/78; PULSE 92; RESP 18; TEMP 37.1; O2SAT 92; BMI 43.6
--- NOTE | 2024-07-26 08:37 | PC.NURSE ---
Assumed care for this pt at approximately 0812 when he arrived via EMS. Patient reports feeling suicidal and anxious due to ongoing physical complaints. Patient reports that he was evaluated in the community by [facility] and was awaiting a respite bed. Patient received a call from [facility] while in transit to the ER. Patient requested to be transferred to [facility] respite. RN reached out to CARE team who are reaching out to [facility] to develop a plan. Patient is currently resting quietly. No apparent distress.
--- NOTE | 2024-07-26 09:28 | ED_ITS ---
HPI - Psych General Chief Complaint: Psychiatric Symptoms Stated Complaint: SI W/PLAN, HOT/COLD SWEATS,? SUB USE,H/O ANXIETY Time Seen by Provider: 07/26/24 09:00 Source: patient, EMS, RN notes reviewed and old records reviewed Mode of arrival: EMS Limitations: no limitations History of Present Illness ED Provider: Janis HPI Narrative: Patient is a 39-year-old male with history of or UD, MDD, polysubstance abuse, asthma presenting to the emergency department complaining of depression, suicidal ideation without plan. Thinks may need medications adjusted. Was attempting to get a respite bed with [facility] yesterday but was having telephone issues and was unable to get into a bed there yesterday. Related Data Home Medications ?Medication ?Instructions ?Recorded ?Confirmed albuterol sulfate 90 mcg/actuation 2 puff inhalation Q4H PRN wheezing 09/02/23 07/22/24 aerosol inhaler (Ventolin HFA) aspirin 81 mg tablet,delayed 81 mg PO DAILY 09/02/23 07/22/24 release mirtazapine 15 mg tablet 15 mg PO BEDTIME 09/02/23 07/22/24 acetaminophen 650 mg 650 mg PO Q8H PRN moderate pain 03/11/24 07/22/24 tablet,extended release methadone 10 mg/mL oral 125 mg PO DAILY 03/11/24 07/22/24 concentrate (Methadone Intensol) polyethylene glycol 3350 17 17 g PO DAILY PRN Constipation 03/11/24 07/22/24 gram/dose oral powder (Miralax) clonidine HCl 0.1 mg tablet 0.1 mg PO BID PRN anxiety 07/22/24 07/22/24 ferrous sulfate 325 mg (65 mg 325 mg PO MOWEFR@0900 07/22/24 07/22/24 iron) tablet,delayed release olanzapine 5 mg tablet 5 mg PO BEDTIME agitation 07/22/24 07/22/24 sennosides 8.6 mg tablet (Natural 17.2 mg PO BID PRN constipation 07/22/24 07/22/24 Senna Laxative) Previous Rx's ?Medication ?Instructions ?Recorded esomeprazole magnesium 40 mg 40 mg PO DAILY #30 caps 01/14/24 capsule,delayed release (Nexium) famotidine 40 mg tablet 40 mg PO BEDTIME 90 days #90 tabs 01/14/24 lghxev-ratibpeb-sdbiums 2 cap PO TID #90 caps 04/06/24 36,000-114,000-180,000 unit capsule,delay rel (Creon) magnesium oxide 400 mg PO BEDTIME #30 caps 04/14/24 fluticasone furoate 200 1 inh inhalation DAILY #60 ea 05/10/24 mcg-vilanterol 25 mcg/dose inhalation powder (Breo Ellipta) ondansetron HCl 4 mg tablet 4 mg PO Q8H PRN nausea and 05/31/24 vomiting #10 tabs fluoxetine 20 mg capsule 40 mg (2 x 20 mg) PO DAILY #0 caps 07/03/24 hydroxyzine HCl 25 mg tablet 25 mg PO TID PRN mild anxiety 30 07/03/24 days #90 tabs Allergies Allergy/AdvReac Type Severity Reaction Status Date / Time Penicillins [PENICILLINS] Allergy Unknown RASH Verified 07/26/24 08:36 Review of Systems Review of Systems: As per HPI Yes all other systems are reviewed and are negative Constitutional: Constitutional: Reports as per HPI [facility] Past Medical History Medical History Exocrine pancreatic insufficiency Polysubstance abuse No known health problems Social History Social History Household Members: Family Housing: Apartment Do you presently have visiting nurse or other home services: No Alcohol intake: former Patient Tobacco Use Status: Former Tobacco user Substance Use Type: Marijuana Advance Directives: Yes Advance Directives on File: Yes Advance Directives Date on File: 03/15/24 Do you have a plan to hurt others: No Plan service: No Sexual orientation: Straight/Heterosexual Physical Exam Vital Signs: Vital Signs: Last Vital Signs Temp 98.7 F 07/26/24 08:33 Pulse 92 07/26/24 08:33 Resp 18 07/26/24 08:33 BP 123/78 07/26/24 08:33 Pulse Ox 92 07/26/24 08:33 O2 Del Method Room Air 07/26/24 08:33 BMI result Body Mass Index 43.6 Vital signs have been reviewed and appear to be correct. Blood pressure normal. Heart rate normal. Respiratory rate normal. Temperature normal. Oxygen saturation normal. Const: General: cooperative, healthy appearing and no acute distress Orie ntation/consciousness: oriented to person, oriented to place, oriented to time and patient oriented x3 Limitations: no limitations HEENT: Head: Yes normocephalic and Yes atraumatic Ears: external ears normal General nose exam: Normal external nose present Face and sinus: Yes face symmetric Mouth: oropharynx normal and moist mucous membranes Throat: Yes uvula midline Eyes: Pupils: Equal, round and reactive pupils present Neck: Neck: Yes normal visual inspection and Yes supple Resp: Effort & Inspection: normal respiratory effort and able to speak in complete sentences Auscultation: clear to auscultation bilaterally Cardio: Rate: regular rate Rhythm: regular rhythm Heart sounds: S1 normal heart sound present and S2 normal heart sound present GI: Palpation (GI): Soft to palpation and nontender Auscultation: normoactive bowel sounds : General: Yes no CVA tenderness Back/Spine/Pelvis: Back: no CVA tenderness Skin: General skin exam: elasticity normal and turgor normal Neuro: General: oriented to person, oriented to place, oriented to time, patient oriented x3, moves all extremities, no focal motor deficits and CN's II- XI intact bilaterally Cranial nerves: Yes Equal, round and reactive pupils present Cognition (Neuro): normal cognition Extrem: General: Yes full ROM, Yes no pedal edema and Yes no calf tenderness Psych: Mental Status: mental status grossly normal Affect: normal affect Thought process: Normal thought process present Medical Decision Making Medical Decision Making MDM Narrative: Patient is a 39-year-old male with history of or UD, MDD, polysubstance abuse, asthma presenting to the emergency department complaining of depression, suicida l ideation without plan. On exam patient is awake, A+Ox3, VS WNL, afebrile, normal neurological exam without focal deficits, physical exam findings as above. Given reported symptoms and physical exam findings, initial differential includes but is not limited to depression, anxiety, suicidal ideation. Spoke with Marie from CARE team who reached out to [facility]. [facility] confirmed that they had an available bed for the patient yesterday, however, were unable to get in touch with him due to telephone issues. They report bed is still available, do not feel patient needs full evaluation, can be transported to respite when bed available at 11:00am. Patient updated on and agreeable with plan. Differential Diagnosis Differential Diagnoses: The differential diagnosis associated with the presentation includes As per [facility] Admission/Observation Consideration of admission/observation: Escalation of care including admission/observation considered Patient would have been admitted to the hospital had their work up had any findings where hospital admission was appropriate and their clinical presentation warranted hospital admission. Consult Healthcare Provider Management of the patient was discussed with: Behavioral Health Provider External Record Review External record reviewed: Inpatient record, Office record and Outpatient record Discharge Plan Discharge Clinical Impression: Depression Patient Disposition: Home, Self-Care Instructions: Depression (DC) Additional Instructions: You were seen in our Emergency Department today for treatment of a behavioral health issue. It is important after your visit that you follow up with either your behavioral health provider or a primary care doctor within 7 days.? You have a respite bed availabe through [facility] and will be transported there via Lyft. If you have trouble finding a therapist you can reach out to [address] [phone] The National Suicide and Crisis Lifeline can be reached 7 days a week 24 hours a day.? Call 988 to speak with someone.? Return for any worsening symptoms or concerns such as thoughts of self harm or harm to others. Please call 911 if you feel your mental health is worsening.? Prescriptions: No Action Creon 36,000-114,000- 180,000 unit capsule,delayed release(DR/EC) 2 cap PO TID Qty: 90 2RF Rx Instructions: administer with meals and/or snacks fluticasone furoate-vilanterol [Breo Ellipta] 200-25 mcg/dose blister with device 1 inh inhalation DAILY Qty: 60 2RF acetaminophen 650 mg tablet extended release 650 mg PO Q8H PRN (Reason: moderate pain) polyethylene glycol 3350 [Miralax] 17 gram/dose powder 17 g PO DAILY PRN (Reason: Constipation) methadone [Methadone Intensol] 10 mg/mL Concentrate 125 mg PO DAILY ondansetron HCl 4 mg tablet 4 mg PO Q8H PRN (Reason: nausea and vomiting) Qty: 10 0RF hydroxyzine HCl 25 mg Tablet 25 mg PO TID PRN (Reason: mild anxiety) 30 Days Qty: 90 0RF fluoxetine 20 mg Capsule 40 mg PO DAILY Qty: 0 0RF sennosides [Natural Senna Laxative] 8.6 mg tablet 17.2 mg PO BID PRN (Reason: constipation) olanzapine 5 mg tablet 5 mg PO BEDTIME clonidine HCl 0.1 mg tablet 0.1 mg PO BID PRN (Reason: anxiety) ferrous sulfate 325 mg (65 mg iron) Tablet,Delayed Release (Dr/Ec) 325 mg PO MOWEFR@0900 aspirin 81 mg tablet,delayed release (DR/EC) 81 mg PO DAILY albuterol sulfate [Ventolin HFA] 90 mcg/actuation HFA aerosol inhaler 2 puff inhalation Q4H PRN (Reason: wheezing) mirtazapine 15 mg tablet 15 mg PO BEDTIME esomeprazole magnesium [Nexium] 40 mg capsule,delayed release(DR/EC) 40 mg PO DAILY Qty: 30 5RF famotidine 40 mg tablet 40 mg PO BEDTIME 90 Days Qty: 90 3RF magnesium oxide 400 mg magnesium capsule 400 mg PO BEDTIME Qty: 30 2RF Print Language: Romanian
--- OUTSIDE RECORDS SUMMARY | 2024-07-26 09:35 | XMS_ITS | Clinical Summary ---
Author Organization [facility] Address [address] [place] [address] Phone Care Team Providers Care Impregnation Operator Name Role Phone Az Terrell Primary Care Provider [phone] Immunizations Immunization Administration Dates Next Due DTP [...] age to complete this topic Care Teams Impregnation Operator Relationship Specialty Start Date End Date Az Terrell [address] [place] [address] PCP - General 11/13/16
--- OUTSIDE RECORDS SUMMARY | 2024-07-26 09:35 | XMS_ITS | Encounter Summary ---
Author Organization [employer] Address [address] [place] [address] Care Team Providers Care Cleaner Window Name Role Phone Roma Bender Primary Care Provider [phone] Neetu Bah Unavailable [phone] Lesia Tran MD Primary Care Provider + Encounter Details Date Type Department Care Team (Late st Contact Info) Description 02/19/2023 Orders Only [facility] MED & PEDS [address] [place] [address] Roma Bender FNP [address] [place] [address] Other acute gastritis, presence of bleeding unspecified [...] AM EDT Office Visit [facility] ADULT DENTAL [address] [place] [address] Trenton Wilkerson DDS [address] [place] [address] 08/24/2024 9:00 AM EDT Office Visit [facility] MEDICINE [address] [place] [address] Lesia Tran MD [address] [place] [address] documented as of this encounter Visit Diagnoses Diagnosis Other acute gastritis, presence of bleeding unspecified- Primary documented in this encounter Additional Health Concerns Assessment Noted Time PHQ-9 Depression Total Score: 11 023 3:14 PM EDT documented as of this encounter Care Teams Cleaner Window Relationship Specialty Start Date End Date Roma Bender FNP [address] [place] [address] PCP - General Family Medicine 01/14/23 12/06/23 Lesia Tran MD [address] [place] [address] PCP - General Internal Medicine 12/07/23 Neetu Bah AGNP [address] [place] [address] Family Medicine 01/14/23 09/02/23 documented as of this encounter
--- OUTSIDE RECORDS SUMMARY | 2024-07-26 09:35 | XMS_ITS | Encounter Summary ---
Author Organization [employer] Address [address] [facility] 7t [place] [address] Care Team Providers Care Cloth Packer Name Role Phone Roma Bender Primary Care Provider [phone] Neetu Bah [facility] Unavailable [phone] Lesia Tran MD Primary Care Provider + Reason for Visit * Reason Onset Date Comments Medication Question 05/04/2023 Encounter Details Date Type Department Care Team (Late st Contact Info) Description 05/04/2023 Telephone [facility] MEDICINE [address] [place] [address] Roma Bender FNP [address] [place] [address] Medication Question Social History Tobacco Use Types [...] 50 MG tablet prescribed by pcp at [facility] today 05/04/23, was prescribed for 1 time daily but it was supposed to be 2 times daily. Any questions please contact [phone]. documented in this encounter Plan of Treatment Upcoming Encounters Date Type Department Care Team (Late st Contact Info) Description 07/28/2024 10:00 AM EDT Office Visit [facility] ADULT DENTAL [address] [place] [address] Trenton Wilkerson DDS [address] [place] [address] 08/24/2024 9:00 AM EDT Office Visit [facility] MEDICINE [address] [place] [address] Lesia Tran MD [address] [place] [address] documented as of this encounter Visit Diagnoses Not on filedocumented in this encounter Additional Health Concerns Assessment Noted Time PHQ-9 Depression Total Score: 11 023 3:14 PM EDT documented as of this encounter Care Teams Cloth Packer Relationship Specialty Start Date End Date Roma Bender FNP [address] [place] [address] PCP - General Family Medicine 01/14/23 12/06/23 Lesia Tran MD [address] [place] [address] PCP - General Internal Medicine 12/07/23 Neetu Bah AGNP [address] [place] [phone] Family Medicine 01/14/23 09/02/23 documented as of this encounter
--- OUTSIDE RECORDS SUMMARY | 2024-07-26 09:36 | XMS_ITS | Encounter Summary ---
Author Organization [employer] Address [address] [facility] 7t [place] [address] Care Team Providers Care Vinyl Dipper Name Role Phone Lesia Tran MD Primary Care Provider + Reason for Visit * Reason Comments Med Refill Encounter Details Date Type Department Care Team (Late st Contact Info) Description 07/23/2024 Refill [facility] [address] [place] [address] Lesia Tran MD [address] [place] [address] Social History Tobacco Use Types Packs/Day Years Used Date Smoking Tobacco: Former Cigarettes 0.3 0.5 Passive Smoke Exposure: Past Smokeless Tobacco: Former Alcohol Use Standard Drinks/Week Comments Defer 0 (1 standard drink = 0.6 oz pur e alcohol) Depression Answer Date Recorded Patient Health Questionnaire-9 Score 22 07/25/2024 Patient Health Questionnaire-9 Score 22 07/25/2024 Last PHQ-9: Questionnaire Data Not on file 0 07/25/2024 Housing Stability Answer Date Recorded What is [...] Answer Date Recorded Patient Health Questionnaire-2 Score 3 07/25/2024 Internet Access Answer Date Recorded Internet Access [...] Description 07/28/2024 10:00 AM EDT Office Visit [facility] ADULT DENTAL [address] [place] [address] Trenton Wilkerson DDS [address] [place] [address] 08/24/2024 9:00 AM EDT Office Visit [facility] MED[facility]INE [address] [place] [address] Lesia Tran MD [address] [place] [address] documented as of this encounter Visit Diagnoses Not on filedocumented in this encounter Additional Health Concerns Assessment Noted Time PHQ-9 Depression Total Score: 21 06/09/ 024 2:23 PM EST documented as of this encounter Care Teams Vinyl Dipper Relationship Specialty Start Date End Date Lesia Tran MD [address] [place] [address] PCP - General Internal Medicine 12/07/23 documented as of this encounter
--- OUTSIDE RECORDS SUMMARY | 2024-07-26 09:36 | XMS_ITS | Encounter Summary ---
Author Organization [employer] Address [address] [place] [address] Care Team Providers Care Airline Manager Name Role Phone Lesia Tran MD Primary Care Provider + Encounter Details Date Type Department Care Team (Latest Contact Info) Description 07/21/2024 Travel Social History Tobacco Use Types Packs/Day [...] Description 07/28/2024 10:00 AM EDT Office Visit [facility] ADULT DENTAL [address] [place] [address] Trenton Wilkerson DDS [address] [place] [address] 08/24/2024 9:00 AM EDT Office Visit [facility] MEDICINE [address] [place] [address] Lesia Tran MD [address] [place] [address] documented as of this encounter Visit Diagnoses Not on filedocumented in this encounter Additional Health Concerns Assessment Noted Time PHQ-9 Depression Total Score: 21 024 2:23 PM EST documented as of this encounter Care Teams Airline Manager Relationship Specialty Start Date End Date Lesia Tran MD [address] [place] [address] PCP - General Internal Medicine 12/07/23 documented as of this encounter
--- OUTSIDE RECORDS SUMMARY | 2024-07-26 09:36 | XMS_ITS | Encounter Summary ---
Author Organization [employer] Address [address] [facility] 7t [place] [address] Care Team Providers Care Media Production Support Manager Name Role Phone Neetu Bah Primary Care Provider Roma Bender Primary Care Provider [phone] Neetu Bah Unavailable [phone] Lesia Tran MD Primary Care Provider + Encounter Details Date Type Department Care Team (Late st Contact Info) Description 09/29/2022 Abstract [facility] ADULT DENTAL [address] [place] [address] Trenton Wilkerson DDS [address] [place] [address] Social History Tobacco Use Types Packs/Day Years [...] Description 07/28/2024 10:00 AM EDT Office Visit [facility] ADULT DENTAL [address] [place] [address] Trenton Wilkerson DDS [address] [place] [address] 08/24/2024 9:00 AM EDT Office Visit [facility] MEDICINE [address] [place] [address] Lesia Tran MD [address] [place] [address] documented as of this encounter Visit Diagnoses Not on filedocumented in this encounter Care Teams Media Production Support Manager Relationship Specialty Start Date End Date Neetu Bah AGNP [address] [place] [address] PCP - General Family Medicine 11/28/20 01/13/23 Roma Bender FNP [address] [place] [address] PCP - General Family Medicine 01/14/23 12/06/23 Lesia Tran MD [address] [place] [address] PCP - General Internal Medicine 12/07/23 Neetu Bah AGNP [address] [place] [address] Family Medicine 01/14/23 09/02/23 documented as of this encounter
--- OUTSIDE RECORDS SUMMARY | 2024-07-26 09:36 | XMS_ITS | Encounter Summary ---
Author Organization [employer] Address [address] [facility] 7t [place] [address] Care Team Providers Care Molded Candles Wicker Name Role Phone Lesia Tran MD Primary Care Provider + Reason for Visit * Reason Onset Date Comments rs appt/disconnected call 06/29/2024 Encounter Details Date Type Department Care Team (Late st Contact Info) Description 06/29/2024 Telephone [facility] ADULT DENTAL [address] [place] [address] Trenton Wilkerson DDS [address] [place] [address] rs appt/disconnected call Social History Tobacco Use [...] While I was on the line with front office java developer [facility] the patient disconnected the call.. The appt [...] Description 07/28/2024 10:00 AM EDT Office Visit [facility] ADULT DENTAL [address] [place] [address] Trenton Wilkerson DDS [address] [place] [address] 08/24/2024 9:00 AM EDT Office Visit [facility] MEDICINE [address] [place], [place] [phone] Lesia Tran MD [address] [place], [place] [phone] documented as of this encounter Visit Diagnoses Not on filedocumented in this encounter Additional Health Concerns Assessment Noted Time PHQ-9 Depression Total Score: 21 024 2:23 PM EST documented as of this encounter Care Teams Molded Candles Wicker Relationship Specialty Start Date End Date Lesia Tran MD [address] [place] [address] PCP - General Internal Medicine 12/07/23 documented as of this encounter
--- OUTSIDE RECORDS SUMMARY | 2024-07-26 09:36 | XMS_ITS | Encounter Summary ---
Author Organization [employer] Address [address] [facility] 7t [place] [address] Care Team Providers Care Hspt Tutor Name Role Phone Neetu Bah Primary Care Provider Roma Bender Primary Care Provider [phone] Neetu Bah Unavailable [phone] Lesia Tran MD Primary Care Provider + Encounter Details Date Type Department Care Team (Late st Contact Info) Description 09/29/2022 Abstract [facility] ADULT DENTAL [address] [place] [address] Trenton Wilkerson DDS [address] [place] [address] Social History Tobacco Use Types Packs/Day Years [...] Description 07/28/2024 10:00 AM EDT Office Visit [facility] ADULT DENTAL [address] [place] [address] Trenton Wilkerson DDS [address] [place] [address] 08/24/2024 9:00 AM EDT Office Visit [facility] MEDICINE [address] [place] [address] Lesia Tran MD [address] [place] [address] documented as of this encounter Visit Diagnoses Not on filedocumented in this encounter Care Teams Hspt Tutor Relationship Specialty Start Date End Date Neetu Bah AGNP [address] [place] [address] PCP - General Family Medicine 11/28/20 01/13/23 Roma Bender FNP [address] [place] [address] PCP - General Family Medicine 01/14/23 12/06/23 Lesia Tran MD [address] [place] [address] PCP - General Internal Medicine 12/07/23 Neetu Bah AGNP [address] [place] [address] Family Medicine 01/14/23 09/02/23 documented as of this encounter
--- OUTSIDE RECORDS SUMMARY | 2024-07-26 09:36 | XMS_ITS | Clinical Summary ---
Author Organization [employer] Address [address] [place] [address] Care Team Providers Care Gauge Inspector Name Role Phone Lesia Tran MD Primary [...] mg by mouth in the morning. Active mirtazapine (Remeron) 15 MG tabletIndicat ions:Anxiety, [...] mouth at bedtime. 06/10/19 25 Active Creon 89276-183245 units capsule delayed-relea se particles capsule Take [...] week. 2 mL 1 07/14/19 25 Active ferrous sulfate 325 (65 Fe) MG EC tablet TAKE 1 TABLET BY MOUTH EVERY OTHER DAY SWALLOW WHOLE 45 tablet 07/26/19 Active ferrous sulfate 325 (65 Fe) MG EC tablet TAKE 1 TABLET BY MOUTH EVERY OTHER DAY SWALLOW WHOLE 45 tablet 04/17/19 25 025 Discontinued hydrOXYzine pamoate (Vistaril) 50 MG capsuleIndica tions:Anxiety [...] 2 times daily. 60 tablet 1 06/27/19 025 Discontinued(A lternate therapy) Active Problems Problem [...] advised to reach out to therapist or manager of disaster recovery (he will request one at methadone program). Advised against using recreational substances or alcohol. Pt will see therapist this afternoon. History of substance use disorder 04/12/2024 Complete edentulism 04/12/2024 TYSON (obstructive sleep apnea) 02/11/2024 Overview (02/11/2024): Sleep study at [facility]: moderate TYSON with nocturnal hypoxemia, <88% 24.1 minutes, lowest 77%. Assessment & Plan (06/20/2024 1:12 PM EDT): Pt has not been able to use CPAP, will call sleep specialist to check next appointment. Advised regarding weight reduction, consider Zepbound. Consider Hypoglossal nerve stimulator implant. Fu with sleep specialist. Assessment & Plan (02/11/2024 3:58 PM EST): [facility] Mild persistent asthma 02/11/2024 Assessment & Plan (02/11/2024 4:00 PM EST): Doing well on Breo, fu by [facility] pulmonary Advised re weight [...] Plan (02/11/2024 4:01 PM EST): FU by [facility] GI, on Protonix, senna [...] moderate intensity exercise. Will hold referral to script artist until next appointment once anxiety is [...] Severe episode of recurrent major depressive disorder, with psychotic features 06/10/2023 Assessment & Plan (06/11/2023 9:01 AM EST): PROGRESS NOTE: ID: Yaniv is a 37 y.o. White [place] choose not to disclose-identified cis- male (pronouns [...] for 2.5 years, currently on methadone at [facility], 128mg with a plan on taper down [...] , [facility], and Patient to reach out to [facility] as needed Alcohol use disorder in remission 06/10/2023 Cocaine use disorder in remission 06/10/2023 Routine health maintenance 05/29/2023 Assessment & Plan (05/29/2023 2:23 PM EST): -Pt brought labs done by his [facility] in 04/06/2023 hb 11.7,chem was normal [...] 248 Pt brought labs done by his [facility] in 04/06/2023 hb 11.7,chem was normal [...] to dental clinic [facility] will f [facility] [...] Problem Noted Date Diagnosed Date Resolved Date Anxiety 06/10/2023 07/25/2024 Overview (10/18/2023): Last Addressed Date: 10/26/2022 Assessment & Plan (02/11/2024 4:04 PM EST): Seen by MH provider at [facility], will bring meds at next appt. He feels safe at home and is able to reach out for safety. Moderate opioid use disorder 06/10/2023 04/12/2024 Overview (10/18/2023): Last Addressed Date: 10/31/2021 Assessment & Plan (02/11/2024 4:03 PM EST): Doing well on Methadone at [facility], has take home bottles Advised to decrease use of THC Encounters * This document contains information received from the source organization and may not represent a complete record from that organization. Date Type Department Care Team Description 07/23/2024 Refill [facility] [place] [address] Lesia Tran MD 07/21/2024 Travel 07/20/2024 Telephone [facility] [place] [address] Lesia Tran MD Prior Authorization ( [place] Request: Zepbound) 07/18/2024 Telephone [facility] [place] [address] Lesia Tran MD 07/17/2024 Patient Outreach [facility] [place] [address] Lesia Tran MD Care Coordination (C3 [facility] telephone call outreach) 07/13/2024 10:45 AM EDT Office Visit [facility] [place] [address] Lesia Tran MD Morbid obesity (CMS/HCC) (Primary Dx); Anxiety; Dietary counseling; Exercise counseling 07/13/2024 Travel 07/12/2024 Telephone [facility] [place], [place] [phone] Lesia Tran MD Chart prep 07/11/2024 Travel 07/07/2024 Telephone [facility] [place] [address] Lesia Tran MD Appointment Request 07/04/2024 Travel 07/03/2024 Patient Outreach [address] [address] Lesia Tran MD Care Coordination (C3 -[facility] telephone call outreach) 06/29/2024 Patient Outreach [facility] [address], [place] [phone] Lesia Tran MD Transition Of Care (Tcm) (HDF scheduled.) 06/29/2024 Telephone [facility] [address] [place] [phone] Trenton Wilkerson DDS rs appt/disconnected call 06/28/2024 Telephone [facility] [address] [place] [phone] Lesia Tran MD Care Management (C3- Initial assessment/LVM) 06/27/2024 Patient Outreach [address] [address] Lesia Tran MD Care Coordination (C3 [facility] Jennifer [place] telephone call outreach) 06/26/2024 Orders Only GENERIC EXTERNAL DATA DEPARTMENT Provider, Generic External Data 06/26/2024 Travel 06/23/2024 Travel 06/20/2024 11:30 AM EDT Office Visit [address] [address] Lesia Tran MD Generalized anxiety disorder with panic attacks (Primary Dx); IFG (impaired fasting glucose); Morbid obesity (CMS/HCC); TYSON (obstructive sleep apnea); Hyperglycemia 06/17/2024 Travel 06/16/2024 Travel 06/16/2024 Population Health Risk Score [facility] (C3) Department [address] [place] [phone] Provider, Population Health Generic 06/16/2024 Telephone [facility] [address] [place] [phone] Lesia Tran MD Nurse Triage 06/15/[address] [address] Lesia Tran MD No Show 06/14/2024 Patient Outreach [address] [address] Lesia Tran MD Care Coordination (C3 [facility] Jennifer [place] telephone call outreach) 06/12/[address] [address] Lesia Tran MD Chart prep 06/08/2024 Travel 06/08/2024 Patient Outreach [address] [address] Lesia Tran MD Pre-visit Planning (SDOH screening negative and tobacco screening positive) 06/05/2024 Telephone [facility] [address] [place] [address] Lesia Tran MD Care Management (C3CM- chart review) 06/02/2024 10:00 AM EST Office Visit [facility] [address] [place] [address] Trenton Wilkerson DDS Complete edentulism, unspecified edentulism class (Primary Dx) 05/29/2024 Travel 05/24/2024 Telephone [facility] [address] [place] [address] Lesia Tran MD Results 05/22/2024 Travel 05/19/2024 Telephone [facility] [address] [place] [phone] Lesia Tran MD Results 05/15/2024 Orders Only GENERIC EXTERNAL DATA DEPARTMENT Provider, Generic External Data 05/15/2024 Telephone [facility] [address] [place] [phone] Lesia Tran MD Med Refill 05/12/2024 Telephone [facility] [address] [place] [address] Bobbi Deal RN Results: Chest CT 05/12/24 05/03/2024 10:00 AM EST Office Visit [facility] [address] [place] [address] Trenton Wilkerson DDS Complete edentulism, unspecified edentulism [...] Description 07/28/2024 10:00 AM EDT Office Visit [facility] [address] [place] [address] Trenton Wilkerson DDS [address] [place] [address] 08/24/2024 9:00 AM EDT Office Visit [facility] [address] [place] [address] Lesia Tran MD [address] [place] [address] Health Maintenance Due Date Last Done Comments Dental Prophylaxis 1985 Alcohol/Substance Use Screening 1999 Family Planning (PISQ) 06/23/2002 Pneumococcal Vaccine: Pediatrics (0 to 5 Years) and At-Risk Patients (6 to 49) Years) (1 of 2 - PCV) 06/23/2006 Dental X-Ray: Bitewings 02/21/2015 02/20/2014 COVID-19 Vaccine ( season) 2023 09/11/2020, 07/30/2020 Influenza Vaccine (#1) 2023 , 01/28/2022, 07/14/2021 Dental Oral Exam 10/11/2024 04/12/2024, 02/20/2014 SDOH Screening 06/08/2025 06/08/2024 Diabetes: Hemoglobin A1C 06/20/2025 06/20/2024, 03/0 08/2023 Tobacco Screening 07/13/2025 07/13/2024 Depression Screening 07/25/2025 07/25/2024, 07/26/19 Dental X-Ray: Full Mouth 04/13/2027 025, 12/01/2023, [...] without serious comorbidity in adult, unspecified BMI ([facility]/HCC) INTRAORAL - COMPLETE SERIES OF RADIOGRAPHIC IMAGES Routine 02/20/2014 12:00 AM EST from Last 3 Months or Most Recently Relevant to Health Maintenance Results * SARS-CoV-2 RNA, Influenza A/B, and RSV RNA, Ql NAAT (06/26/2024 5:18 PM EDT) Influenza A PCR NEGATIVE Negative [facility] Influenza B PCR NEGATIVE Negative [facility] Resp Syncy Virus RNA Qual PCR NEGATIVE Negative [facility] SARS COV2 PCR NEGATIVE Negative [facility] Comment:All test results mus t [...] use by authorized laboratories.Testing performed on the [employer]ively GeneXpert utilizingreal-time RT-PCR.All SARS CoV2 and positive influenza A/B results arereported to [facility]. 06/26/2024 5:18 PM EDT 06/26/2024 5:26 PM EDT us Generic External Data Provider LAB MICROBIOLOGY - GENERAL ORDERABLES Final Result [facility] [address] [place] [address] [phone] * (ABNORMAL) Drug Monitoring, Panel 1, Screen, Urine (06/26/2024 5:18 PM EDT) Only the most recent of2 resultswithin the time period is included. Opiate Screen Urine Not Detected Not Detect [facility] Comment:Opiate cut-off is 30 0 ng/mL.Positive results are unconfirmed and should not be used fornon-medical purposes. Barbiturates, Urine Not Detected Not Detect [facility] Comment:Barbiturate cut-off is 200 ng/mL.Positive results are unconfirmed and should not be used fornon-medical purposes. Phencyclidine Screen Urine Not Detected Not Detect [facility] Comment:Phencyclidine cut-of f is 25 ng/mL.Positive results are unconfirmed and should not be used fornon-medical purposes. Amphetamine Screen Urine Not Detected Not Detect [facility] Comment:Amphetamine cut-off is 1000 ng/mL.Positive results are unconfirmed and should not be used fornon-medical purposes. Benzodiazepines Screen Urine Not Detected Not Detect [facility] Comment:Benzodiazepine cut-o ff is 200 ng/mL.Positive results are unconfirmed and should not be used fornon-medical purposes. Cocaine Screen Urine Not Detected Not Detect [facility] Comment:Cocaine cut-off is 3 00 ng/mL.Positive results are unconfirmed and should not be used fornon-medical purposes. Cannabinoid Screen Urine POSITIVE(A) Not Detect [facility] Comment:Cannabinoid cut-off is 50 ng/mL.Positive results are unconfirmed and should not be used fornon-medical purposes. Methadone Screen, Urine Positive(A) Not Detect ng/mL [facility] Comment:Methadone cut-off is 300 ng/mL.Positive results are unconfirmed and should not be used fornon-medical purposes. FENTANYL URINE Not Detected Not Detect [facility] Comment:Fentanyl cut-off is 1 ng/mL.Positive results are unconfirmed and should not be used fornon-medical purposes. Oxycodone Urine Screen Not Detected Not Detect ng/mL [facility] Comment:Oxycodone cut-off is 100 ng/mL.Positive results are unconfirmed and should not be used fornon-medical purposes. Buprenorphine Screen Not Detected Not Detect ng/mL [facility] Comment:Buprenorphine cut-of f is 5 ng/mL.Positive results are unconfirmed and should not be used fornon-medical purposes. 06/26/2024 5:18 PM EDT 06/26/2024 5:26 PM EDT us Generic External Data Provider LAB URINE ORDERAB LES Final Result Performing Organization Address [facility] Co de Phone Number [facility] [address] [place] [phone] * Urinalysis w/reflex microscopic (06/26/2024 5:18 PM EDT) Color Urine Yellow [facility] Appearance Urine Clear [facility] PH 8.0 5.0 - 9.0 [facility] Glucose Urine UA Negative Negative mg/dL [facility] Urine Blood Negative Negative [facility] Specific [place] - Urine 1.025 1.005 - 1.025 [facility] Urine Protein Trace Neg-Trace mg/dL [facility] Urine Ketones Trace Negative mg/dL [facility] Nitrite Urine Negative Negative [facility] Leukocyte Esterase Urine Negative Negative [facility] 06/26/2024 5:18 PM EDT 06/26/2024 5:26 PM EDT Narrative [facility] - 06/26/2024 5:35 PM EDT [id number], Clean Catch Generic External Data Provider LAB URINE ORDERAB LES Final Result Performing Organization Address [facility] Phone Number [facility] [address] [place] [phone] * Ethanol (06/26/2024 5:08 PM EDT) ETHANOL (MG/DL) IN SER/PLAS <10 mg/dL [facility] Comment:Serum/plasma ethanol results are to be used formedical/treatment purposes only. 06/26/2024 5:08 PM EDT 06/26/2024 5:12 PM EDT us Generic External Data Provider LAB BLOOD ORDERAB LES Final Result Performing Organization Address City/[facility] Co de Phone Number [facility] [address] [place] [address] [phone] * TSH with Reflex to Free T4 (06/26/2024 5:08 PM EDT) Pathologist [facility] TSH reflex Free T4 0.83 0.32 - 4.0 uIU/mL [facility] 06/26/2024 5:08 PM EDT 06/26/2024 5:12 PM EDT us Generic External Data Provider LAB BLOOD ORDERAB LES Final Result [facility] [address] [place] [phone] * (ABNORMAL) CBC auto differential (06/26/2024 5:08 PM EDT) [facility] White Blood Count 11.6(H) 4.8 - 10.8 X10*3/uL [facility] Red Blood Count 4.83 4.60 - 5.80 X10*6/uL [facility] Hemoglobin 11.7(L) 14.0 - 18.0 g/dl [facility] Hematocrit 37.2(L) 42.0 - 52.0 % [facility] Mean Corpuscular Volume 77.0(L) 80.0 - 98.0 fL [facility] Mean Corpuscular Hemoglobin 24.2(L) 27.0 - 33.0 pg [facility] Mean Corpuscular HGB Conc 31.5 31.0 - 36.0 g/dl [facility] Red Cell Distribution Width 14.6 11.0 - 16.0 % [facility] Platelet Count 264 160 - 400 X10*3/uL [facility] Mean Platelet Volume 8.9(L) 9.4 - 12.4 fL [facility] Neutrophils Percent Auto 82.4(H) 45 - 73 % [facility] Imm Gran Pct Auto 0.5(H) 0.0 - 0.4 % [facility] Lymphocytes Percent Auto 10.7(L) 20 - 40 % [facility] Monocytes Percent Auto 5.5 2 - 11 % [facility] Eosinophils Percent Auto 0.6 0 - 4 % [facility] Basophils Percent Auto 0.3 0 - 2 % [facility] NRBC Pct Auto 0.0 0.0 - 0.2 /100WBC [facility] Neutrophils Absolute Auto 9.6(H) 2.0 - 8.3 x10*3/uL [facility] Imm Gran Abs Auto 0.06(H) 0.00 - 0.03 X10*3/uL [facility] Lymphocytes Absolute Auto 1.2 1.2 - 4.9 X10*3/uL [facility] Monocytes Absolute Auto 0.6 0.1 - 1.2 X10*3/uL [facility] Eosinophils Absolute Auto 0.1 0.0 - 0.4 X10*3/uL [facility] Basophils Absolute Auto 0.0 0.0 - 0.2 X10*3/uL [facility] NRBC Abs Auto 0.000 0.0 - 0.012 X10*3/uL [facility] 06/26/2024 5:08 PM EDT 06/26/2024 5:12 PM EDT us Generic External Data Provider LAB BLOOD ORDERAB LES Final Result Performing Organization Address [facility] Co de Phone Number [facility] [address] [place] [phone] * Magnesium (06/26/2024 5:08 PM EDT) Magnesium 1.9 1.6 - 2.6 mg/dL [facility] 06/26/2024 5:08 PM EDT 06/26/2024 5:12 PM EDT Generic External Data Provider LAB BLOOD ORDERAB LES Final Result Performing Organization Address [facility]/ZIP Co de Phone Number [facility] [address] [place] [phone] * Lipase (06/26/2024 5:08 PM EDT) Pathologist [facility] Lipase 9 8 - 78 U/L [facility] 06/26/2024 5:08 PM EDT 06/26/2024 5:12 PM EDT Generic External Data Provider LAB BLOOD ORDERAB LES Final Result Performing Organization Address City/[facility]/ZIP Co de Phone Number [facility] [address] [place] [phone] * Creatine Kinase, Total (06/26/2024 5:08 PM EDT) Pathologist [facility] Creatine Kinase Total 52 38 - 174 U/L [facility] 06/26/2024 5:08 PM EDT 06/26/2024 5:12 PM EDT Generic External Data Provider LAB BLOOD ORDERAB LES Final Result Performing Organization Address [facility] de Phone Number [facility] [address] [place] [phone] * (ABNORMAL) Comprehensive Metabolic Panel (06/26/2024 5:08 PM EDT) Pathologist [facility] Sodium 139 135 - 145 mmol/L [facility] Potassium 4.2 3.3 - 5.1 mmol/L [facility] Chloride 106 96 - 108 mmol/L [facility] Carbon Dioxide 27 22 - 29 mmol/L [facility] Anion Gap 10(L) 12 - 20 [facility] Urea Nitrogen (BUN) 10 9 - 16 mg/dL [facility] Creatinine, Serum 0.89 0.5 - 1.4 mg/dL [facility] Creatinine Clr Calc Pharmacy 126.3 [facility] Comment:eGFR (calculated fro m the MDRD study equation) and eCrCl(calculated from the Cockcroft-Gault equation) are based ondifferent parameters and may not yield comparable results.If eCrCl result is absurd, please check patient'sheight/weight. Estimated Glomerular Filt Rate >60 [facility] Comment:Chronic Kidney Disea se: Estimated GFR < 60 mL/min/1.10m4Xfffvt Kidney Disease: Estimated GFR < 15 mL/min/1.73m2 Glucose 106 60 - 115 mg/dL [facility] Calcium 8.6 8.4 - 10.2 mg/dL [facility] Bilirubin, Total 0.3 0.0 - 1.0 mg/dL [facility] Aspartate Amino Transferase 19 5 - 37 U/L [facility] Alanine Aminotransferase 19 0 - 40 U/L [facility] Total Protein 7.1 6.5 - 8.0 g/dL [facility] Albumin Level 3.7 3.5 - 5.0 g/dL [facility] Alkaline Phosphatase 94 39 - 117 U/L [facility] 06/26/2024 5:08 PM EDT 06/26/2024 5:12 PM EDT us Generic External Data Provider LAB BLOOD ORDERAB LES Final Result Performing Organization Address City/State/[facility] Co de Phone Number [facility] [address] [place] [phone] * POCT HGB A1C (06/20/2024 12:05 PM EDT) Hemoglobin A1C 6.0 4.0 - 6.0 % QC Media Lot # [id number] Lot# Expiration Date , Blood 06/20/2024 12:0 5 PM EDT us Lesia Tran MD POINT OF CARE TEST ENTER /EDIT ORDERABLES Final Result * POCT Glucose (06/20/2024 12:02 PM EDT) Glucose Blood, POC 114 60 - 200 mg/dL QC Media Lot # [id number] Lot# Expiration Date [id number] Blood Capillary blood specimen / Unknown 06/20/2024 12:02 PM EDT us Lesia Tran MD POINT OF CARE TEST ENTER /EDIT ORDERABLES Final Result * (ABNORMAL) Immunoglobulin G Subclasses Panel (05/15/2024 3:30 PM EST) IgG Subclass 1 702 382 - 929 mg/dL [facility] IgG Subclass 2 304 241 - 700 mg/dL [facility] IgG Subclass 3 37 22 - 178 mg/dL [facility] IgG Subclass 4 92.2(A) 4 - 86 mg/dL [facility] Immunoglobulin G, Serum 1172 600 - 1640 mg/dL [facility] Comment:THIS TEST WAS PERFOR MED AT:[id number] [place] [phone] AMAYA MD 05/15/2024 3:30 PM EST 05/15/2024 3:30 PM EST us Generic External Data Provider LAB BLOOD ORDERAB LES Final Result Performing Organization Address [facility] de Phone Number [facility] [address] [place] [phone] * (ABNORMAL) Immunoglobulins, Quantitative, IgA, IgG, IgM (05/15/2024 3:30 PM EST) IMMUNOGLOBULIN G 1274 600 - 1640 mg/dL [facility] IMMUNOGLOBULIN A 542(A) 47 - 310 mg/dL [facility] Immunoglobulin M 277 50 - 300 mg/dL [facility] Comment:THIS TEST WAS PERFOR MED AT:[facility] [place] [phone] AMAYA MD 05/15/2024 3:30 PM EST 05/15/2024 3:30 PM EST us Generic External Data Provider LAB BLOOD ORDERAB LES Final Result Performing Organization Address City/[facility]/ZIP Co de Phone Number [facility] [address] [place] [phone] * CT Chest w/o Contrast (05/12/2024 9:03 AM EST) Anatomical Region Laterality Modality Body, Chest Computed Tomogra phy 05/12/2024 9:03 AM EST Narrative 05/12/2024 9:54 AM EST ? [facility] ?[address] ?[place] [address] ? CT Scan Report ? Signed ? Patient: Yaniv Gutierrez ?MR#: [id number] ? : 1985 ?Acct:[id number] ? Age/Sex: 38 / M ?ADM Date: 05/12/24 ? Loc: HO.CT ? Attending Dr: Samantha Davis ASSURANCE ENGINEER ? Ordering Physician: Samantha Davis NP ?? Date of Service: 05/12/24 ?? Procedure(s): CT chest wo IV con ?? Accession Number(s): [id number] ? cc: Roma Bender ASSURANCE ENGINEER; Samantha Davis NP ? Report Number: ?? [id number]: Total DLP = ??307.00 mGy-cm ?? EXAMINATION: [...] DLP: 307 mGy centimeter. ? FINDINGS: ? TRAIN OPERATOR: Large body habitus. No hyperinflation. ? LUNGS: [...] DD/ 0903 ? TD/TT: 05/12/24 0928 ? Fork Operator: ? Procedure Note Carroll Rubio - 05/12/[address] [address] [address] Scan Report Signed Patient: Yaniv Gutierrez [facility]#: [id number] : 1985Acct:[id number] Age/Sex: 38 / MADM Date: 05/12/24 Loc: HO.CT Attending Dr: Samantha Davis ASSURANCE ENGINEER Ordering Physician: Samantha Davis NP Date of Service: 05/12/24 Procedure(s): CT chest wo IV con Accession Number(s): [id number] cc: Roma Bender ASSURANCE ENGINEER; Samantha Davis ASSURANCE ENGINEER Report Number: [id number]: Total DLP = 307.00 mGy-cm EXAMINATION: CT [...] reconstruction technique. DLP: 307 mGy centimeter. FINDINGS: TRAIN OPERATOR: Large body habitus. No hyperinflation. LUNGS: Small [...] Sanchez MDin OV> 05/12/2451 DD/ 2 TD/TT: 02/07/25 0928 Fork Operator: us [facility] External Provider IMG CT PROCEDURES Final Result * (ABNORMAL) Lipid Panel, Standard (06/08/2023 8:20 AM EST) Triglycerides 236(H) <150 mg/dL [facility] Comment:Desirable Triglyceri de: less than 150 mg/dLBorderline High Triglyceride 150-199 mg/dLHigh Triglyceride: 200-499 mg/dLVery High Triglyceride: greater than or equal to 5OO mg/dL Cholesterol 137 <200 mg/dL [facility] Comment:Desirable Cholestero l: less than 200 mg/dLBorderline High Cholesterol: 200-239 mg/dLHigh Cholesterol: greater than 239 mg/dL LDL Cholesterol Calculated 57 <100 mg/dL [facility] Comment:Desirable LDL: less than 100 mg/dLNear [...] MD LAB BLOOD ORDERAB LES Final Result [facility] [address] [place] [address] [phone] from Last 3 Months or Most Recently Relevant to Health Maintenance Insurance [address] [place], [place] [id number] C3 H[facility] [place] [facility] STAND ADULT Care Teams Gauge Inspector Relationship Specialty Start Date End Date Lesia Tran MD [address] [place] [address] PCP - General Internal Medicine 12/07/23
--- OUTSIDE RECORDS SUMMARY | 2024-07-26 09:36 | XMS_ITS | Encounter Summary ---
Author Organization [employer] Address [address] [facility] 7t [place] [address] Care Team Providers Care Signal Mechanic Name Role Phone Neetu Bah Primary Care Provider Roma Bender Primary Care Provider [phone] Neetu Bah Unavailable [phone] Lesia Tran MD Primary Care Provider + Encounter Details Date Type Department Care Team (Late st Contact Info) Description 09/28/[address] [facility] ADULT DENTAL [address] [place] [address] Trenton Wilkerson DDS [address] [place] [address] Social History Tobacco Use Types Packs/Day Years [...] Visit [facility] ADULT [facility] [address] [place] [address] Trenton Wilkerson DDS [address] [place] [address] 08/24/2024 9:00 AM EDT Office Visit [facility] MEDICINE [address] [place] [address] Lesia Tran MD [address] [place] [address] documented as of this encounter Visit Diagnoses Not on filedocumented in this encounter Care Teams Signal Mechanic Relationship Specialty Start Date End Date Neteu Bah AGNP [address] [place] [address] PCP - General Family Medicine 11/28/20 01/13/23 Roma Bender FNP [address] [place] [address] PCP - General Family Medicine 01/14/23 12/06/23 Lesia Tran MD [address] [place] [address] PCP - General Internal Medicine 12/07/23 Neetu Bah AGNP [address] [place] [address] Family Medicine 01/14/23 09/02/23 documented as of this encounter
--- OUTSIDE RECORDS SUMMARY | 2024-07-26 09:36 | XMS_ITS | Encounter Summary ---
Author Organization [employer] Address [address] [place] [address] 7t [place] [address] Care Team Providers Care Epitaxial Reactor Technician Name Role Phone Neetu Bah Primary Care Provider Roma Bender Primary Care Provider [phone] Neetu Bah Unavailable [phone] Lesia Tran MD Primary Care Provider + Reason for Visit * Reason Onset Date Comments New Patient 11/18/2022 Encounter Details Date Type Department Care Team (Late st Contact Info) Description 11/18/2022 Telephone [facility] MEDICINE [address] [place] [address] Koby Holland MD [address] [place], [place] [phone] New Patient Social History Tobacco Use Types [...] 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 Once done, to please call back to facility at [phone] documented in this encounter Plan of Treatment Upcoming Encounters Date Type Department Care Team (Late st Contact Info) Description 07/28/2024 10:00 AM EDT Office Visit [facility] ADULT DENTAL [address] [place] [address] Trenton Wilkerson DDS [address] [place] [address] 08/24/2024 9:00 AM EDT Office Visit [facility] MEDICINE [address] [place] [address] Lesia Tran MD [address] [place] [address] documented as of this encounter Visit Diagnoses Not on filedocumented in this encounter Care Teams Epitaxial Reactor Technician Relationship Specialty Start Date End Date Neetu Bah AGNP [address] [place] [phone] PCP - General Family Medicine 11/28/20 01/13/23 Roma Bender FNP [address] [place] [address] PCP - General Family Medicine 01/14/23 12/06/23 Lesia Tran MD [address] [place] [address] PCP - General Internal Medicine 12/07/23 Neetu Bah AGNP [address] [place] [phone] Family Medicine 01/14/23 09/02/23 documented as of this encounter
--- OUTSIDE RECORDS SUMMARY | 2024-07-26 09:36 | XMS_ITS | Encounter Summary ---
Author Organization [employer] Address [address] [facility] 7t [place] [address] Care Team Providers Care Certified Histologic Technician Name Role Phone Lesia Tran MD Primary Care Provider + Reason for Visit * Reason Onset Date Comments medication 02/02/2024 Encounter Details Date Type Department Care Team (Late st Contact Info) Description 02/02/2024 Telephone [facility] ADULT DENTAL [address] [place] [address] Trenton Wilkerson, BJS [address] [place] [address] medication Social History Tobacco Use Types Packs/Day [...] Description 07/28/2024 10:00 AM EDT Office Visit [facility] ADULT DENTAL [address] [place] [address] Trenton Wilkerson DDS [address] [place] [address] 08/24/2024 9:00 AM EDT Office Visit [facility] MEDICINE [address] [place] [address] Lesia Tran MD 230 [place] [address] documented as of this encounter Visit Diagnoses Not on filedocumented in this encounter Additional Health Concerns Assessment Noted Time PHQ-9 Depression Total Score: 21 024 2:23 PM EST documented as of this encounter Care Teams Certified Histologic Technician Relationship Specialty Start Date End Date Lesia Tran MD [address] [place] [address] PCP - General Internal Medicine 12/07/23 documented as of this encounter
--- OUTSIDE RECORDS SUMMARY | 2024-07-26 09:36 | XMS_ITS | Encounter Summary ---
Author Organization [employer] Address 75 [facility] 7t [place] [address] Care Team Providers Care Director Global Strategic Publisher Sales Name Role Phone Lesia Tran MD Primary Care Provider + Reason for Visit * Reason Onset Date Comments Med Refill 05/15/2024 Encounter Details Date Type Department Care Team (Late st Contact Info) Description 05/15/2024 Telephone [facility] MEDICINE [address] [place] [address] Lesia Tran MD 230 [place] [address] Med Refill Social History Tobacco Use Types [...] 9:47 AM EST Medication was sent to [id number] on 05/01/24 with 1 refill. * Telephone Encounter - Kenisha Mtz - 05/15/2024 9:43 AM EST TC from pt requesting medication refill. Medications needing refill : hydrOXYzine pamoate (Vistaril) 25 MG capsule To be sent to: [facility]acy #[id number] - [address] documented in this encounter Plan of Treatment Upcoming Encounters Date Type Department Care Team (Late st Contact Info) Description 07/28/2024 10:00 AM EDT Office Visit [facility] ADULT DENTAL [address] [place] [address] Trenton Wilkerson DDS [address] [place], [place] [phone] 08/24/2024 9:00 AM EDT Office Visit [facility] MEDICINE [address] [place], [place] [phone] Lesia Tran MD 230 [place] [address] documented as of this encounter Visit Diagnoses Not on filedocumented in this encounter Additional Health Concerns Assessment Noted Time PHQ-9 Depression Total Score: 21 024 2:23 PM EST documented as of this encounter Care Teams Director Global Strategic Publisher Sales Relationship Specialty Start Date End Date Lesia Tran MD [address] [place] [address] [phone] PCP - General Internal Medicine 12/07/23 documented as of this encounter
--- OUTSIDE RECORDS SUMMARY | 2024-07-26 09:36 | XMS_ITS | Encounter Summary ---
Author Organization [employer] Address 75 [facility] 7t [place] [address] Care Team Providers Care Collision Technician Name Role Phone Lesia Tran MD Primary Care Provider + Reason for Visit * Reason Onset Date Comments Nurse Triage 06/16/2024 Encounter Details Date Type Department Care Team (Late st Contact Info) Description 06/16/2024 Telephone [facility] MEDICINE [address] [place] [address] Lesia Tran MD [address] [place] [address] Nurse Triage Social History Tobacco Use Types [...] from yesterday as he was in [facility] ( note requested) Patient with reported [...] is in agreement to reach out to [facility] and Crisis as needed. Has concerns for [...] had contact with Care Coordinators here at [facility] and is requesting additional help. Patient agrees to have [facility] reach out to him with worsening symptoms. [facility] to [facility] sent. Disposition reviewed and patient in agreement [...] 06/16/2024 10:29 AM EDT Please obtain [facility] note from visit on 06/15/24. Patient scheduled with PCP on Wednesday06/20/24. * Telephone Encounter - Kenisha Mtz - 06/16/2024 9:52 AM EDT Symptoms: Abdominal Pain - Male, Abdominal Swelling Outcome: Schedule an urgent appointment (within 4 hours) or talk to a nurse or provider soon Reason: Started within the past 3 days The caller accepted this outcome. [phone] documented in this encounter Plan of Treatment Upcoming Encounters Date Type Department Care Team (Late st Contact Info) Description 07/28/2024 10:00 AM EDT Office Visit [facility] ADULT DENTAL [address] [place], [place] [phone] Trenton Wilkerson DDS [address] [place] [address] 08/24/2024 9:00 AM EDT Office Visit [facility] MEDICINE [address] [place] [address] Lesia Tran MD [address] [place], [place] [phone] documented as of this encounter Visit Diagnoses Not on filedocumented in this encounter Additional Health Concerns Assessment Noted Time PHQ-9 Depression Total Score: 21 06/09/ 024 2:23 PM EST documented as of this encounter Care Teams Collision Technician Relationship Specialty Start Date End Date Lesia Tran MD [address] [place] [address] [phone] PCP - General Internal Medicine 12/07/23 documented as of this encounter
[2024-07-26 10:25] VITALS: BP 112/62; PULSE 62; RESP 16; TEMP 36.8
== END 2024-07-26 10:38 | disposition home or self-care (01) ==
PROVIDERS: Emergency Provider Emergency Medicine
DX: F32.A Depression, unspecified (principal); R45.851 Suicidal ideations; Z79.899 Other long term (current) drug therapy
CPT/HCPCS: 99283

== ENCOUNTER 2024-07-27 07:22 | Inpatient (IN) | payer OTHER, SELFPAY ==
[2024-07-27] VITALS (7 sets, daily range): BP systolic 106–138; BP diastolic 74–90; PULSE 62–78; RESP 16–18; TEMP 36.3–37.4; O2SAT 92–98; BMI 43.6; BMI 46.1
--- NOTE | ~2024-07-27 | XR_ITS ---
EXAMINATION: XR CHEST CLINICAL INFORMATION: sob COMPARISON: 07/22/2024 CT chest 06/15/2024. TECHNIQUE: 2 views of the chest were obtained. FINDINGS: Cardiac size is normal. Mediastinal contours are normal. Prominence of the hilar markings bilaterally. Lungs demonstrate mild prominence of the background interstitial markings. No consolidation. Stable atelectasis or scarring in the left costophrenic sulcus. There is no pneumothorax or pleural effusion. There is no focal osseous or soft tissue abnormality. XR/XR chest 2V IMPRESSION: Diffuse prominence of the background interstitial markings. No consolidative pneumonia. Prominent hilar markings bilaterally, of uncertain significance. Overall, findings appear similar chest radiograph 07/22/2024. Electronically signed by: Compa Wilder MD 07/27/2024 11:06 AM EDT
--- OUTSIDE RECORDS SUMMARY | 2024-07-27 08:11 | XMS_ITS | Encounter Summary ---
Author Organization [employer] Address 75 [facility] 7t [place] [address] Care Team Providers Care Junior Manufacturing Engineer Name Role Phone Neetu Bah Primary Care Provider Roma Bender Primary Care Provider [phone] Neetu Bah Unavailable [phone] Lesia Tran MD Primary Care Provider + Encounter Details Date Type Department Care Team (Late st Contact Info) Description 09/28/2022 Abstract [facility] ADULT DENTAL [address] [place] [address] Trenton Wilkerson DDS [address] [place] [address] Social History Tobacco Use Types Packs/Day Years [...] Description 07/28/2024 10:00 AM EDT Office Visit [facility] ADULT DENTAL [address] [place] [address] Trenton Wilkerson DDS [address] [place] [address] 08/24/2024 9:00 AM EDT Office Visit [facility] MEDICINE [address] [place] [address] Lesia Tran MD 230 [place] [address] documented as of this encounter Visit Diagnoses Not on filedocumented in this encounter Care Teams Junior Manufacturing Engineer Relationship Specialty Start Date End Date Neetu Bah AGNP [address] [place] [address] PCP - General Family Medicine 11/28/20 01/13/23 Roma Bender FNP [address] [place] [address] PCP - General Family Medicine 01/14/23 12/06/23 Lesia Tran MD [address] [place] [address] PCP - General Internal Medicine 12/07/23 Neetu Bah AGNP [address] [place] [address] Family Medicine 01/14/23 09/02/23 documented as of this encounter
--- OUTSIDE RECORDS SUMMARY | 2024-07-27 08:11 | XMS_ITS | Encounter Summary ---
Author Organization [employer] Address [address] [place] [address] 7t [place] [address] Care Team Providers Care Cage Fighter Name Role Phone Neetu Bah Primary Care Provider Roma Bender Primary Care Provider [phone] Neetu Bah Unavailable [phone] Lesia Tran MD Primary Care Provider + Reason for Visit * Reason Onset Date Comments New Patient 11/18/2022 Encounter Details Date Type Department Care Team (Late st Contact Info) Description 11/18/2022 Telephone [facility] MEDICINE [address] [place] [address] Koby Holland MD 230 [place], [place] [phone] New Patient Social History Tobacco Use Types [...] 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 Once done, to please call back to facility at [phone] documented in this encounter Plan of Treatment Upcoming Encounters Date Type Department Care Team (Late st Contact Info) Description 07/28/2024 10:00 AM EDT Office Visit [facility] ADULT DENTAL [address] [place] [address] Trenton Wilkerson DDS [address] [place] [address] 08/24/2024 9:00 AM EDT Office Visit [facility] MEDICINE 230 [place] [address] Lesia Tran MD [address] [place] [address] documented as of this encounter Visit Diagnoses Not on filedocumented in this encounter Care Teams Cage Fighter Relationship Specialty Start Date End Date Neetu Bah AGNP [address] [place] [phone] PCP - General Family Medicine 11/28/20 01/13/23 Roma Bender FNP 230 [place] [address] PCP - General Family Medicine 01/14/23 12/06/23 Lesia Tran MD [address] [place] [address] PCP - General Internal Medicine 12/07/23 Neetu Bah AGNP [address] [place] [phone] Family Medicine 01/14/23 09/02/23 documented as of this encounter
--- OUTSIDE RECORDS SUMMARY | 2024-07-27 08:11 | XMS_ITS | Encounter Summary ---
Author Organization [employer] Address [address] [facility] [address] 7t [place] [address] Care Team Providers Care Bench Shear Operator Name Role Phone Roma Bender Primary Care Provider [phone] Neetu Bah Unavailable [phone] Lesia Tran MD Primary Care Provider + Encounter Details Date Type Department Care Team (Late st Contact Info) Description 02/19/2023 Orders Only [facility]EDS [address] [place] [address] Roma Bender FNP [address] [place] [address] Other acute gastritis, presence of bleeding unspecified [...] Description 07/28/2024 10:00 AM EDT Office Visit [facility] ADULT DENTAL [address] [place] [address] Trenton Wilkerson DDS [address] [place] [address] 08/24/2024 9:00 AM EDT Office Visit [facility] MEDICINE [address] [place] [address] Lesia Tran MD [address] [place] [address] documented as of this encounter Visit Diagnoses Diagnosis Other acute gastritis, presence of bleeding unspecified- Primary documented in this encounter Additional Health Concerns Assessment Noted Time PHQ-9 Depression Total Score: 11 023 3:14 PM EDT documented as of this encounter Care Teams Bench Shear Operator Relationship Specialty Start Date End Date Roma Bender FNP [address] [place] [address] PCP - General Family Medicine 01/14/23 12/06/23 Lesia Tran MD [address] [place] [address] PCP - General Internal Medicine 12/07/23 Neetu Bah AGNP [address] [place] [address] Family Medicine 01/14/23 09/02/23 documented as of this encounter
--- OUTSIDE RECORDS SUMMARY | 2024-07-27 08:11 | XMS_ITS | Encounter Summary ---
Author Organization [employer] Address 75 [facility] [address]t [place] [address] Care Team Providers Care Nurse Sitter Name Role Phone Lesia Tran MD Primary Care Provider + Reason for Visit * Reason Comments Med Refill Encounter Details Date Type Department Care Team (Late st Contact Info) Description 07/23/2024 Refill [facility] MEDICINE [address] [place] [address] Lesia Tran MD 230 [place] [address] Social History Tobacco Use Types Packs/Day Years Used Date Smoking Tobacco: Former Cigarettes 0.3 0.5 Passive Smoke Exposure: Past Smokeless Tobacco: Former Alcohol Use Standard Drinks/Week Comments Defer 0 (1 standard drink = 0.6 oz pur e alcohol) Depression Answer Date Recorded Patient Health Questionnaire-9 Score 07/25/2024 Patient Health Questionnaire-9 Score 22 07/25/2024 [...] 07/28/2024 10:00 AM EDT Office Visit [facility] ADULT DENTAL [address] [place] [address] Trenton Wilkerson DDS [address] [place] [address] 08/24/2024 9:00 AM EDT Office Visit [facility] MEDICINE [address] [place] [address] Lesia Tran MD [address] [place] [address] documented as of this encounter Visit Diagnoses Not on filedocumented in this encounter Additional Health Concerns Assessment Noted Time PHQ-9 Depression Total Score: 21 06/09/ 024 2:23 PM EST documented as of this encounter Care Teams Nurse Sitter Relationship Specialty Start Date End Date Lesia Tran MD [address] [place] [address] PCP - General Internal Medicine 12/07/23 documented as of this encounter
--- OUTSIDE RECORDS SUMMARY | 2024-07-27 08:11 | XMS_ITS | Encounter Summary ---
Author Organization [employer] Address 75 [facility] 7t [place] [address] Care Team Providers Care Tapeman Name Role Phone Lesia Tran MD Primary Care Provider + Reason for Visit * Reason Onset Date Comments Nurse Triage 06/16/2024 Encounter Details Date Type Department Care Team (Late st Contact Info) Description 06/16/2024 Telephone [facility] MEDICINE [address] [place] [address] Lesia Tran MD 230 [place] [address] Nurse Triage Social History Tobacco Use Types [...] appt from yesterday as he was in [facility] ( note requested) Patient with reported [...] is in agreement to reach out to [facility] and Crisis as needed. Has concerns [...] had contact with Care Coordinators here at [facility] and is requesting additional help. Patient agrees to have [facility] reach out to him with worsening symptoms. [facility] and message to [facility] sent. Disposition reviewed and patient [...] - 06/16/2024 10:29 AM EDT Please obtain [facility] note from visit on 06/15/24. Patient scheduled with PCP on Wednesday06/20/24. * Telephone Encounter - Kenisha Mtz - 06/16/2024 9:52 AM EDT Symptoms: Abdominal Pain - Male, Abdominal Swelling Outcome: Schedule an urgent appointment (within 4 hours) or talk to a nurse or provider soon Reason: Started within the past 3 days The caller accepted this outcome. [phone] documented in this encounter Plan of Treatment Upcoming Encounters Date Type Department Care Team (Late st Contact Info) Description 07/28/2024 10:00 AM EDT Office Visit [facility] ADULT DENTAL [address] [place], [place] [phone] Trenton Wilkerson DDS [address] [place] [address] 08/24/2024 9:00 AM EDT Office Visit [facility] MEDICINE [address] [place] [address] Lesia Tran MD [address] [place], [place] [phone] documented as of this encounter Visit Diagnoses Not on filedocumented in this encounter Additional Health Concerns Assessment Noted Time PHQ-9 Depression Total Score: 21 06/09/ 024 2:23 PM EST documented as of this encounter Care Teams Tapeman Relationship Specialty Start Date End Date Lesia Tran MD [address] [place] [address] [phone] PCP - General Internal Medicine 12/07/23 documented as of this encounter
--- OUTSIDE RECORDS SUMMARY | 2024-07-27 08:11 | XMS_ITS | Clinical Summary ---
Author Organization [facility] Address [address] [place] [address] Phone Care Team Providers Care Systems Analyst Engineer Name Role Phone Az Terrell Primary Care Provider [phone] Immunizations Immunization Administration Dates Next Due DTP [...] age to complete this topic Care Teams Systems Analyst Engineer Relationship Specialty Start Date End Date Az Terrell [address] [place] [address] PCP - General 11/13/16
--- OUTSIDE RECORDS SUMMARY | 2024-07-27 08:11 | XMS_ITS | Encounter Summary ---
Author Organization [employer] Address [address] [facility] 7t [place] [address] Care Team Providers Care Decision Analyst Name Role Phone Neetu Bah Primary Care Provider Roma Bender Primary Care Provider [phone] Neetu Bah Unavailable [phone] Lesia Tran MD Primary Care Provider + Encounter Details Date Type Department Care Team (Late st Contact Info) Description 09/29/2022 Abstract [facility] ADULT DENTAL [address] [place] [address] Trenton Wilkerson DDS [address] [place] [address] Social History Tobacco Use Types Packs/Day Years [...] 07/28/2024 10:00 AM EDT Office Visit [facility] ADULT DENTAL [address] [place] [address] Trenton Wilkerson DDS [address] [place] [address] 08/24/2024 9:00 AM EDT Office Visit [facility] MEDICINE [address] [place] [address] Lesia Tran MD [address] [place] [address] documented as of this encounter Visit Diagnoses Not on filedocumented in this encounter Care Teams Decision Analyst Relationship Specialty Start Date End Date Neetu Bah AGNP [address] [place] [address] PCP - General Family Medicine 11/28/20 01/13/23 Roma Bender FNP [address] [place] [address] PCP - General Family Medicine 01/14/23 12/06/23 Lesia Tran MD [address] [place] [address] PCP - General Internal Medicine 12/07/23 Neetu Bah AGNP [address] [place] [address] Family Medicine 01/14/23 09/02/23 documented as of this encounter
--- OUTSIDE RECORDS SUMMARY | 2024-07-27 08:11 | XMS_ITS | Encounter Summary ---
Author Organization [employer] Address 75 [facility] 7t [place] [address] Care Team Providers Care Electrician Assistant Name Role Phone Roma Bender Primary Care Provider [phone] Neetu Bah [facility] [phone] Lesia Tran MD Primary Care Provider + Reason for Visit * Reason Onset Date Comments Medication Question 05/04/2023 Encounter Details Date Type Department Care Team (Late st Contact Info) Description 05/04/2023 Telephone [facility] MEDICINE [address] [place] [address] Roma Bender FNP [address] [place] [address] Medication Question Social History Tobacco Use Types [...] 2 times daily. Any questions please contact [phone]. documented in this encounter Plan of Treatment Upcoming Encounters Date Type Department Care Team (Late st Contact Info) Description 07/28/2024 10:00 AM EDT Office Visit [facility] ADULT DENTAL [address] [place] [address] Trenton Wilkerson DDS [address] [place] [address] 08/24/2024 9:00 AM EDT Office Visit [facility] MEDICINE [address] [place] [address] Lesia Tran MD [address] [place] [address] documented as of this encounter Visit Diagnoses Not on filedocumented in this encounter Additional Health Concerns Assessment Noted Time PHQ-9 Depression Total Score: 11 023 3:14 PM EDT documented as of this encounter Care Teams Electrician Assistant Relationship Specialty Start Date End Date Roma Bender FNP [address] [place] [address] PCP - General Family Medicine 01/14/23 12/06/23 Lesia Tran MD [address] [place] [address] PCP - General Internal Medicine 12/07/23 Neetu Bah AGNP [address] [place] [phone] Family Medicine 01/14/23 09/02/23 documented as of this encounter
--- OUTSIDE RECORDS SUMMARY | 2024-07-27 08:11 | XMS_ITS | Encounter Summary ---
Author Organization [employer] Address [address] [place] [address] Care Team Providers Care Hospital Ward Clerk Name Role Phone Neetu Bah Primary Care Provider Roma Bender Primary Care Provider [phone] Neetu Bah Unavailable Lesia Tran MD Primary Care Provider + Encounter Details Date Type Department Care Team (Late st Contact Info) Description 09/29/2022 Abstract [facility] [address] [place] [address] Trenton Wilkerson DDS [address] [place] [address] Social History Tobacco Use Types Packs/Day Years [...] Description 07/28/2024 10:00 AM EDT Office Visit [facility] [address] [place] [address] Trenton Wilkerson DDS [address] [place] [address] 08/24/2024 9:00 AM EDT Office Visit [facility] [address] [place] [address] Lesia Tran MD [address] [place] [address] documented as of this encounter Visit Diagnoses Not on filedocumented in this encounter Care Teams Hospital Ward Clerk Relationship Specialty Start Date End Date Neetu Bah AGNP [address] [place] [phone] PCP - General Family Medicine 11/28/20 01/13/23 Roma Bender FNP [address] [place] [id number] PCP - General Family Medicine 01/14/23 12/06/23 Lesia Tran MD [address] [place] [id number] PCP - General Internal Medicine 12/07/23 Neetu Bah AGNP [address] [place] [phone] Family Medicine 01/14/23 09/02/23 documented as of this encounter
--- OUTSIDE RECORDS SUMMARY | 2024-07-27 08:12 | XMS_ITS | Clinical Summary ---
Author Organization [employer] Address [address] [place] [address] Care Team Providers Care Tank Car Loader Name Role Phone Lesia Tran MD Primary [...] mouth at bedtime. 06/10/19 25 Active Creon [id number] units capsule delayed-relea se particles capsule Take [...] advised to reach out to therapist or head girls golf coach (he will request one at methadone program). Advised against using recreational substances or alcohol. Pt will see therapist this afternoon. History of substance use disorder 04/12/2024 Complete edentulism 04/12/2024 TYSON (obstructive sleep apnea) 02/11/2024 Overview (02/11/2024): Sleep study at [facility]: moderate TYSON with nocturnal hypoxemia, <88% 24.1 minutes, lowest 77%. Assessment & Plan (06/20/2024 1:12 PM EDT): Pt has not been able to use CPAP, will call sleep specialist to check next appointment. Advised regarding weight reduction, consider Zepbound. Consider Hypoglossal nerve stimulator implant. Fu with sleep specialist. Assessment & Plan (02/11/2024 3:58 PM EST): [facility] Mild persistent asthma 02/11/2024 Assessment & Plan (02/11/2024 4:00 PM EST): Doing well on Breo, fu by [facility] pulmonary Advised re [...] Plan (02/11/2024 4:01 PM EST): FU by [facility] GI, on Protonix, [...] moderate intensity exercise. Will hold referral to proctologist until next appointment once anxiety is better [...] ID: Yaniv is a 37 y.o. White Tajik choose not to disclose-identified cis- male (pronouns [...] for 2.5 years, currently on methadone at [facility], 128mg with a plan on taper [...] intervention , [facility], and Patient to reach out to [facility] as needed Alcohol use disorder in remission 06/10/2023 Cocaine use disorder in remission 06/10/2023 Routine health maintenance 05/29/2023 Assessment & Plan (05/29/2023 2:23 PM EST): -Pt brought labs done by his [facility] in 04/06/2023 hb 11.7,chem was normal [...] 248 Pt brought labs done by his [facility] in 04/06/2023 hb 11.7,chem was normal [...] to dental clinic -sending relevant labs to [facility] for commodities and pt will f up [...] PM EST): Seen by MH provider at [facility] [place], will bring meds at next appt. He feels safe at home and is able to reach out for safety. Moderate opioid use disorder 06/10/2023 04/12/2024 Overview (10/18/2023): Last Addressed Date: 10/31/2021 Assessment & Plan (02/11/2024 4:03 PM EST): Doing well on Methadone at [facility], has take home bottles Advised to decrease use of THC Encounters * This document contains information received from the source organization and may not represent a complete record from that organization. Date Type Department Care Team Description 07/23/2024 Refill [facility] [place] [address] Lesia Tran MD 07/21/2024 Travel 07/20/2024 Telephone [facility] [place] [address] Lesia Tran MD Prior Authorization ( [place] Request: Zepbound) 07/18/2024 Telephone [facility] [place] [address] Lesia Tran MD 07/17/2024 Patient Outreach [facility] [place] [address] Lesia Tran MD Care Coordination (C3 [facility] telephone call outreach) 07/13/2024 10:45 AM EDT Office Visit [facility] [place] [address] Lesia Tran MD Morbid obesity (CMS/HCC) (Primary Dx); Anxiety; Dietary counseling; Exercise counseling 07/13/2024 Travel 07/12/2024 Telephone [facility] [place], [place] [phone] Lesia Tran MD Chart prep 07/11/2024 Travel 07/07/2024 Telephone [facility] [place] [place] [address] Lesia Tran MD Appointment Request 07/04/2024 Travel 07/03/2024 Patient Outreach [address] [address] Lesia Tran MD Care Coordination (C3 -[facility] telephone call outreach) 06/29/2024 Patient Outreach [facility] [address], [place] [phone] Leisa Tran MD Transition Of Care (Tcm) (HDF scheduled.) 06/29/2024 Telephone [facility] [address] [place] [phone] Trenton Wilkerson DDS rs appt/disconnected call 06/28/2024 Telephone [facility] [address] [place] [phone] Lesia Tran MD Care Management (C3- Initial assessment/LVM) 06/27/2024 Patient Outreach [address] [address] Lesia Tran MD Care Coordination (C3 [facility] telephone call outreach) 06/26/2024 Orders Only GENERIC EXTERNAL DATA DEPARTMENT Provider, Generic External Data 06/26/2024 Travel 06/23/2024 Travel 06/20/2024 11:30 AM EDT Office Visit [address] [address] Lesia Tran MD Generalized anxiety disorder with panic attacks (Primary Dx); IFG (impaired fasting glucose); Morbid obesity (CMS/HCC); TYSON (obstructive sleep apnea); Hyperglycemia 06/17/2024 Travel 06/16/2024 Travel 06/16/2024 Population Health Risk Score [facility] (C3) Department [address] [place] [phone] Provider, Population Health Generic 06/16/2024 Telephone [facility] [address] [place] [phone] Lesia Tran MD Nurse Triage 06/15/[address] [address] Lesia Tran MD No Show 06/14/2024 Patient Outreach [address] [address] Lesia Tran MD Care Coordination (C3 [facility] telephone call outreach) 06/12/[address] [address] Lesia Tran MD Chart prep 06/08/2024 Travel 06/08/2024 Patient Outreach [address] [address] Lesia Tran MD Pre-visit Planning (SDOH screening negative and tobacco screening positive) 06/05/2024 Telephone [facility] [address] [place] [address] Lesia Tran MD Care Management (C3CM- chart review) 06/02/2024 10:00 AM EST Office Visit [facility] [address] [place] [address] Trenton Wilkerson DDS Complete edentulism, unspecified edentulism class (Primary Dx) 05/29/2024 Travel 05/24/2024 Telephone [facility] [address] [place] [address] Lesia Tran MD Results 05/22/2024 Travel 05/19/2024 Telephone [facility] [address] [place] [phone] Lesia Tran MD Results 05/15/2024 Orders Only GENERIC EXTERNAL DATA DEPARTMENT Provider, Generic External Data 05/15/2024 Telephone [facility] [address] [place] [phone] Lesia Tran MD Med Refill 05/12/2024 Telephone [facility] [address] [place] [address] Bobbi Deal RN Results: Chest CT 05/12/24 05/03/2024 10:00 AM EST Office Visit [facility] [address] [place] [address] Trenton Wilkerson DDS Complete edentulism, unspecified edentulism [...] Description 07/28/2024 10:00 AM EDT Office Visit [facility] [address] [place] [address] Trenton Wilkerson DDS [address] [place] [address] 08/24/2024 9:00 AM EDT Office Visit [facility] [address] [place] [address] Lesia Tran MD [address] [place] [address] Health Maintenance Due Date Last Done Comments [...] without serious comorbidity in adult, unspecified BMI ([facility]/HCC) INTRAORAL - COMPLETE SERIES OF RADIOGRAPHIC IMAGES Routine 02/20/2014 12:00 AM EST from Last 3 Months or Most Recently Relevant to Health Maintenance Results * SARS-CoV-2 RNA, Influenza A/B, and RSV RNA, Ql NAAT (06/26/2024 5:18 PM EDT) Influenza A PCR NEGATIVE Negative [facility] Influenza B PCR NEGATIVE Negative [facility] Resp Syncy Virus RNA Qual PCR NEGATIVE Negative [facility] SARS COV2 PCR NEGATIVE Negative [facility] Comment:All test results mus t be [...] use by authorized laboratories.Testing performed on the [employer] GeneXpert utilizingreal-time RT-PCR.All SARS CoV2 and positive influenza A/B results arereported to [facility]. 06/26/2024 5:18 PM EDT 06/26/2024 5:26 PM EDT us Generic External Data Provider LAB MICROBIOLOGY - GENERAL ORDERABLES Final Result [facility] [address] [place] [address] [phone] * (ABNORMAL) Drug Monitoring, Panel 1, Screen, Urine (06/26/2024 5:18 PM EDT) Only the most recent of2 resultswithin the time period is included. Opiate Screen Urine Not Detected Not Detect [facility] Comment:Opiate cut-off is 30 0 ng/mL.Positive results are unconfirmed and should not be used fornon-medical purposes. Barbiturates, Urine Not Detected Not Detect [facility] Comment:Barbiturate cut-off is 200 ng/mL.Positive results are unconfirmed and should not be used fornon-medical purposes. Phencyclidine Screen Urine Not Detected Not Detect [facility] Comment:Phencyclidine cut-of f is 25 ng/mL.Positive results are unconfirmed and should not be used fornon-medical purposes. Amphetamine Screen Urine Not Detected Not Detect [facility] Comment:Amphetamine cut-off is 1000 ng/mL.Positive results are unconfirmed and should not be used fornon-medical purposes. Benzodiazepines Screen Urine Not Detected Not Detect [facility] Comment:Benzodiazepine cut-o ff is 200 ng/mL.Positive results are unconfirmed and should not be used fornon-medical purposes. Cocaine Screen Urine Not Detected Not Detect [facility] Comment:Cocaine cut-off is 3 00 ng/mL.Positive results are unconfirmed and should not be used fornon-medical purposes. Cannabinoid Screen Urine POSITIVE(A) Not Detect [facility] Comment:Cannabinoid cut-off is 50 ng/mL.Positive results are unconfirmed and should not be used fornon-medical purposes. Methadone Screen, Urine Positive(A) Not Detect ng/mL [facility] Comment:Methadone cut-off is 300 ng/mL.Positive results are unconfirmed and should not be used fornon-medical purposes. FENTANYL URINE Not Detected Not Detect [facility] Comment:Fentanyl cut-off is 1 ng/mL.Positive results are unconfirmed and should not be used fornon-medical purposes. Oxycodone Urine Screen Not Detected Not Detect ng/mL [facility] Comment:Oxycodone cut-off is 100 ng/mL.Positive results are unconfirmed and should not be used fornon-medical purposes. Buprenorphine Screen Not Detected Not Detect ng/mL [facility] Comment:Buprenorphine cut-of f is 5 ng/mL.Positive results are unconfirmed and should not be used fornon-medical purposes. 06/26/2024 5:18 PM EDT 06/26/2024 5:26 PM EDT us Generic External Data Provider LAB URINE ORDERAB LES Final Result Performing Organization Address [facility] Co de Phone Number [facility] [address] [place] [phone] * Urinalysis w/reflex microscopic (06/26/2024 5:18 PM EDT) Color Urine Yellow [facility] Appearance Urine Clear [facility] PH 8.0 5.0 - 9.0 [facility] Glucose Urine UA Negative Negative mg/dL [facility] Urine Blood Negative Negative [facility] Specific [place] - Urine 1.025 1.005 - 1.025 [facility] Urine Protein Trace Neg-Trace mg/dL [facility] Urine Ketones Trace Negative mg/dL [facility] Nitrite Urine Negative Negative [facility] Leukocyte Esterase Urine Negative Negative [facility] 06/26/2024 5:18 PM EDT 06/26/2024 5:26 PM EDT Narrative [facility] - 06/26/2024 5:35 PM EDT [id number], Clean Catch Generic External Data Provider LAB URINE ORDERAB LES Final Result Performing Organization Address [facility] Phone Number [facility] [address] [place] [phone] * Ethanol (06/26/2024 5:08 PM EDT) ETHANOL (MG/DL) IN SER/PLAS <10 mg/dL [facility] Comment:Serum/plasma ethanol results are to be used formedical/treatment purposes only. 06/26/2024 5:08 PM EDT 06/26/2024 5:12 PM EDT us Generic External Data Provider LAB BLOOD ORDERAB LES Final Result Performing Organization Address City/[facility] Co de Phone Number [facility] [address] [place] [address] [phone] * TSH with Reflex to Free T4 (06/26/2024 5:08 PM EDT) Pathologist [facility] TSH reflex Free T4 0.83 0.32 - 4.0 uIU/mL [facility] 06/26/2024 5:08 PM EDT 06/26/2024 5:12 PM EDT us Generic External Data Provider LAB BLOOD ORDERAB LES Final Result [facility] [address] [place] [phone] * (ABNORMAL) CBC auto differential (06/26/2024 5:08 PM EDT) [facility] White Blood Count 11.6(H) 4.8 - 10.8 X10*3/uL [facility] Red Blood Count 4.83 4.60 - 5.80 X10*6/uL [facility] Hemoglobin 11.7(L) 14.0 - 18.0 g/dl [facility] Hematocrit 37.2(L) 42.0 - 52.0 % [facility] Mean Corpuscular Volume 77.0(L) 80.0 - 98.0 fL [facility] Mean Corpuscular Hemoglobin 24.2(L) 27.0 - 33.0 pg [facility] Mean Corpuscular HGB Conc 31.5 31.0 - 36.0 g/dl [facility] Red Cell Distribution Width 14.6 11.0 - 16.0 % [facility] Platelet Count 264 160 - 400 X10*3/uL [facility] Mean Platelet Volume 8.9(L) 9.4 - 12.4 fL [facility] Neutrophils Percent Auto 82.4(H) 45 - 73 % [facility] Imm Gran Pct Auto 0.5(H) 0.0 - 0.4 % [facility] Lymphocytes Percent Auto 10.7(L) 20 - 40 % [facility] Monocytes Percent Auto 5.5 2 - 11 % [facility] Eosinophils Percent Auto 0.6 0 - 4 % [facility] Basophils Percent Auto 0.3 0 - 2 % [facility] NRBC Pct Auto 0.0 0.0 - 0.2 /100WBC [facility] Neutrophils Absolute Auto 9.6(H) 2.0 - 8.3 x10*3/uL [facility] Imm Gran Abs Auto 0.06(H) 0.00 - 0.03 X10*3/uL [facility] Lymphocytes Absolute Auto 1.2 1.2 - 4.9 X10*3/uL [facility] Monocytes Absolute Auto 0.6 0.1 - 1.2 X10*3/uL [facility] Eosinophils Absolute Auto 0.1 0.0 - 0.4 X10*3/uL [facility] Basophils Absolute Auto 0.0 0.0 - 0.2 X10*3/uL [facility] NRBC Abs Auto 0.000 0.0 - 0.012 X10*3/uL [facility] 06/26/2024 5:08 PM EDT 06/26/2024 5:12 PM EDT us Generic External Data Provider LAB BLOOD ORDERAB LES Final Result Performing Organization Address [facility] Co de Phone Number [facility] [address] [place] [phone] * Magnesium (06/26/2024 5:08 PM EDT) Magnesium 1.9 1.6 - 2.6 mg/dL [facility] 06/26/2024 5:08 PM EDT 06/26/2024 5:12 PM EDT Generic External Data Provider LAB BLOOD ORDERAB LES Final Result Performing Organization Address [facility]/ZIP Co de Phone Number [facility] [address] [place] [address] [phone] * Lipase (06/26/2024 5:08 PM EDT) Pathologist [facility] Lipase 9 8 - 78 U/L [facility] 06/26/2024 5:08 PM EDT 06/26/2024 5:12 PM EDT Generic External Data Provider LAB BLOOD ORDERAB LES Final Result Performing Organization Address City/[facility]/ZIP Co de Phone Number [facility] [address] [place] [phone] * Creatine Kinase, Total (06/26/2024 5:08 PM EDT) Pathologist [facility] Creatine Kinase Total 52 38 - 174 U/L [facility] 06/26/2024 5:08 PM EDT 06/26/2024 5:12 PM EDT Generic External Data Provider LAB BLOOD ORDERAB LES Final Result Performing Organization Address [facility] de Phone Number [facility] [address] [place] [phone] * (ABNORMAL) Comprehensive Metabolic Panel (06/26/2024 5:08 PM EDT) Pathologist [facility] Sodium 139 135 - 145 mmol/L [facility] Potassium 4.2 3.3 - 5.1 mmol/L [facility] Chloride 106 96 - 108 mmol/L [facility] Carbon Dioxide 27 22 - 29 mmol/L [facility] Anion Gap 10(L) 12 - 20 [facility] Urea Nitrogen (BUN) 10 9 - 16 mg/dL [facility] Creatinine, Serum 0.89 0.5 - 1.4 mg/dL [facility] Creatinine Clr Calc Pharmacy 126.3 [facility] Comment:eGFR (calculated fro m the MDRD study equation) and eCrCl(calculated from the Cockcroft-Gault equation) are based ondifferent parameters and may not yield comparable results.If eCrCl result is absurd, please check patient'sheight/weight. Estimated Glomerular Filt Rate >60 [facility] Comment:Chronic Kidney Disea se: Estimated GFR < 60 mL/min/1.64b5Lorvof Kidney Disease: Estimated GFR < 15 mL/min/1.73m2 Glucose 106 60 - 115 mg/dL [facility] Calcium 8.6 8.4 - 10.2 mg/dL [facility] Bilirubin, Total 0.3 0.0 - 1.0 mg/dL [facility] Aspartate Amino Transferase 19 5 - 37 U/L [facility] Alanine Aminotransferase 19 0 - 40 U/L [facility] Total Protein 7.1 6.5 - 8.0 g/dL [facility] Albumin Level 3.7 3.5 - 5.0 g/dL [facility] Alkaline Phosphatase 94 39 - 117 U/L [facility] 06/26/2024 5:08 PM EDT 06/26/2024 5:12 PM EDT us Generic External Data Provider LAB BLOOD ORDERAB LES Final Result Performing Organization Address City/State/[facility] Co de Phone Number [facility] [address] [place] [phone] * POCT HGB A1C (06/20/2024 12:05 [...] Subclass 1 702 382 - 929 mg/dL [facility] IgG Subclass 2 304 241 - 700 mg/dL [facility] IgG Subclass 3 37 22 - 178 mg/dL [facility] IgG Subclass 4 92.2(A) 4 - 86 mg/dL [facility] Immunoglobulin G, Serum 1172 600 - 1640 mg/dL [facility] Comment:THIS TEST WAS PERFOR MED AT:[email or web address] [place] [phone] AMAYA MD 05/15/2024 3:30 PM EST 05/15/2024 3:30 PM EST us Generic External Data Provider LAB BLOOD ORDERAB LES Final Result Performing Organization Address [facility] de Phone Number [facility] [address] [place] [phone] * (ABNORMAL) Immunoglobulins, Quantitative, IgA, IgG, IgM (05/15/2024 3:30 PM EST) IMMUNOGLOBULIN G 1274 600 - 1640 mg/dL [facility] IMMUNOGLOBULIN A 542(A) 47 - 310 mg/dL [facility] Immunoglobulin M 277 50 - 300 mg/dL [facility] Comment:THIS TEST WAS PERFOR MED AT:[email or web address] [place] [phone] AMAYA MD 05/15/2024 3:30 PM EST 05/15/2024 3:30 PM EST us Generic External Data Provider LAB BLOOD ORDERAB LES Final Result Performing Organization Address City/[facility]/ZIP Co de Phone Number [facility] [address] [place] [address] [phone] * CT Chest w/o Contrast (05/12/2024 9:03 AM EST) Anatomical Region Laterality Modality Body, Chest Computed Tomogra phy 05/12/2024 9:03 AM EST Narrative 05/12/2024 9:54 AM EST ? [facility] ?[address] ?[place] [address] ? CT Scan Report ? Signed ? Patient: Yaniv Gutierrez ?MR#: [id number] ? : 1985 ?Acct:[id number] ? Age/Sex: 38 / M ?ADM Date: 05/12/24 ? Loc: HO.CT ? Attending Dr: Samantha Davis SEED TECHNICIAN ? Ordering Physician: Samantha Davis NP ?? Date of Service: 05/12/24 ?? Procedure(s): CT chest wo IV con ?? Accession Number(s): [id number] ? cc: Roma Bender SEED TECHNICIAN; Samantha Davis NP ? Report Number: ?? [id number]: Total DLP = ??307.00 mGy-cm ?? EXAMINATION: [...] DLP: 307 mGy centimeter. ? FINDINGS: ? SENIOR PARALEGAL: Large body habitus. No hyperinflation. ? LUNGS: [...] DD/ 0903 ? TD/TT: 05/12/24 0928 ? Chocolatier: ? Procedure Note Carroll Rubio - 05/12/[address] [address] [address] Scan Report Signed Patient: Yaniv Gutierrez [facility]#: [id number] : 1985Acct:[id number] Age/Sex: 38 / MADM Date: 05/12/24 Loc: HO.CT Attending Dr: Samantha Davis SEED TECHNICIAN Ordering Physician: Samantha Davis NP Date of Service: 05/12/24 Procedure(s): CT chest wo IV con Accession Number(s): [id number] cc: Roma Bender SEED TECHNICIAN; Samantha Davis SEED TECHNICIAN Report Number: [id number]: Total DLP = 307.00 mGy-cm EXAMINATION: CT [...] reconstruction technique. DLP: 307 mGy centimeter. FINDINGS: SENIOR PARALEGAL: Large body habitus. No hyperinflation. LUNGS: Small [...] OV> 05/12/2451 DD/ 2 TD/TT: 02/07/25 0928 Chocolatier: us [facility] External Provider IMG CT PROCEDURES Final Result * (ABNORMAL) Lipid Panel, Standard (06/08/2023 8:20 AM EST) Triglycerides 236(H) <150 mg/dL [facility] Comment:Desirable Triglyceri de: less than 150 mg/dLBorderline High Triglyceride 150-199 mg/dLHigh Triglyceride: 200-499 mg/dLVery High Triglyceride: greater than or equal to 5OO mg/dL Cholesterol 137 <200 mg/dL [facility] Comment:Desirable Cholestero l: less than 200 mg/dLBorderline High Cholesterol: 200-239 mg/dLHigh Cholesterol: greater than 239 mg/dL LDL Cholesterol Calculated 57 <100 mg/dL [facility] Comment:Desirable LDL: less than 100 mg/dLNear Optimal/Above Optimal LDL: 110- 129 mg/dLBorderline High LDL: 130-159 mg/dLHigh LDL: 160-189 mg/dLVery High LDL: greater than or equal to 190 mg/dL HDL Cholesterol 33(L) >40 mg/dL [facility] Comment:Desirable HDL: great er than 40 mg/dL Note: This HDL assay may give artificially low results in patients with liver disease. Blood Venous blood specimen / Unknown 06/08/2023 8:20 AM EST 06/08/2023 11:33 AM EST Yesica Ibarra MD LAB BLOOD ORDERAB LES Final Result [facility] [address] [place] [address] [phone] from Last 3 Months or Most Recently Relevant to Health Maintenance Insurance [address] [place], [place] [id number] C[employer] [facility] [employer] ST[place] ADULT Care Teams Tank Car Loader Relationship Specialty Start Date End Date Lesia Tran MD [address] [place] [phone] PCP - General Internal Medicine 12/07/23
--- OUTSIDE RECORDS SUMMARY | 2024-07-27 08:12 | XMS_ITS | Encounter Summary ---
Author Organization [employer] Address [address] [facility] [address] 7t [place] [address] Care Team Providers Care Manufacturing Supervisor Name Role Phone Lesia Tran MD Primary Care Provider + Reason for Visit * Reason Onset Date Comments rs appt/disconnected call 06/29/2024 Encounter Details Date Type Department Care Team (Late st Contact Info) Description 06/29/2024 Telephone [facility] ADULT DENTAL [address] [place] [address] Trenton Wilkerson DDS [address] [place] [address] rs appt/disconnected call Social History Tobacco Use [...] I was on the line with front maker lockstitch [facility] the patient disconnected the call.. [facility] [...] [facility] [address] [place] [address] Trenton Wilkerson DDS [address] [place] [address] 08/24/2024 9:00 AM EDT Office Visit [facility] MEDICINE [address] [place], [place] [phone] Lesia Tran MD [address] [place], [place] [phone] documented as of this encounter Visit Diagnoses Not on filedocumented in this encounter Additional Health Concerns Assessment Noted Time PHQ-9 Depression Total Score: 21 024 2:23 PM EST documented as of this encounter Care Teams Manufacturing Supervisor Relationship Specialty Start Date End Date Lesia Tran MD [address] [place] [address] PCP - General Internal Medicine 12/07/23 documented as of this encounter
--- OUTSIDE RECORDS SUMMARY | 2024-07-27 08:12 | XMS_ITS | Encounter Summary ---
Author Organization [employer] Address [address] [facility] 7t [place] [address] Care Team Providers Care Time Recorder Name Role Phone Lesia Tran MD Primary Care Provider + Reason for Visit * Reason Onset Date Comments Med Refill 05/15/2024 Encounter Details Date Type Department Care Team (Late st Contact Info) Description 05/15/2024 Telephone [facility] MEDICINE [address] [place] [address] Lesia Tran MD [address] [place] [address] Med Refill Social History Tobacco Use Types [...] AM EST Medication was sent to [facility][id number] on 05/01/24 with 1 refill. * Telephone Encounter - Kenisha Mtz - 05/15/2024 9:43 AM EST TC from pt requesting medication refill. Medications needing refill : hydrOXYzine pamoate (Vistaril) 25 MG capsule To be sent to: [facility]/pharmacy #[id number] - [address] documented in this encounter Plan of Treatment Upcoming Encounters Date Type Department Care Team (Late st Contact Info) Description 07/28/2024 10:00 AM EDT Office Visit [facility] ADULT DENTAL [address] [place] [address] Trenton Wilkerson DDS [address] [place], [place] [phone] 08/24/2024 9:00 AM EDT Office Visit [facility] MEDICINE [address] [place], [place] [phone] Lesia Tran MD [address] [place] [address] documented as of this encounter Visit Diagnoses Not on filedocumented in this encounter Additional Health Concerns Assessment Noted Time PHQ-9 Depression Total Score: 21 024 2:23 PM EST documented as of this encounter Care Teams Time Recorder Relationship Specialty Start Date End Date Lesia Tran MD [address] [place] [phone] PCP - General Internal Medicine 12/07/23 documented as of this encounter
--- OUTSIDE RECORDS SUMMARY | 2024-07-27 08:12 | XMS_ITS | Encounter Summary ---
Author Organization [employer] Address [address] [facility] 7t [place] [address] Care Team Providers Care Cigar Bander Hand Name Role Phone Lesia Tran MD Primary Care Provider + Reason for Visit * Reason Onset Date Comments medication 02/02/2024 Encounter Details Date Type Department Care Team (Late st Contact Info) Description 02/02/2024 Telephone [facility] ADULT DENTAL [address] [place] [address] Trenton Wilkerson, BJS [address] [place] [address] medication Social History Tobacco Use Types Packs/Day [...] Description 07/28/2024 10:00 AM EDT Office Visit [facility] ADULT DENTAL [address] [place] [address] Trenton Wilkerson DDS [address] [place] [address] 08/24/2024 9:00 AM EDT Office Visit [facility] MEDICINE [address] [place] [address] Lesia Tran MD [address] [place] [address] documented as of this encounter Visit Diagnoses Not on filedocumented in this encounter Additional Health Concerns Assessment Noted Time PHQ-9 Depression Total Score: 21 024 2:23 PM EST documented as of this encounter Care Teams Cigar Bander Hand Relationship Specialty Start Date End Date Lesia Tran MD [address] [place] [address] PCP - General Internal Medicine 12/07/23 documented as of this encounter
[2024-07-27 08:45] LABS: MANUAL DIFF FLAG NO
--- NOTE | 2024-07-27 08:45 | ED.GENADULT ---
HPI - General Adult General Chief complaint: Psychiatric Symptoms Stated complaint: BODYACHES,SWEATY,DRY MOUTH,SI REMARKS,FROM [facility] Time Seen by Provider: 07/27/24 08:43 Source: patient and RN notes reviewed Mode of arrival: ambulatory Limitations: no limitations History of Present Illness ED Provider: Hilary Serra PA-C HPI narrative: This is a 39-year-old male, with a history of opioid use disorder, MDD, polysubstance abuse, asthma, who presents emergency department from [facility] with concerns for suicidal ideation. Patient was seen in the emergency department yesterday for similar symptoms, and was discharged to [facility]. Patient reports that when he was discharged to [facility], he states that they are working on cutting back on his Seroquel, and states that last night he did not sleep at all. He states that his mind was racing and he attempted to fall asleep however he was unable to do so. He has had voices telling him to harm himself. He states that he also has suicidal ideation, states that he will find a tall building to jump off of or stab himself in the neck. He states that he feels as though he can not sit still and occasionally gets sweats. Patient was seen here yesterday as well as July 22 and had similar symptoms. Denies any recent alcohol or drug use. MD complaint: Suicidal ideation, anxiety Onset (ago): day(s) Radiation: non-radiation Quality: aching Pain Consistency: constant Relieving factors: none Exacerbating factors: none Associated symptoms: diaphoresis Related Data Home Medications ?Medication ?Instructions ?Recorded ?Confirmed aspirin 81 mg tablet,delayed 81 mg PO DAILY 09/02/23 07/27/24 release mirtazapine 15 mg tablet 15 mg PO BEDTIME 09/02/23 07/27/24 acetaminophen 650 mg 650 mg PO Q4H PRN moderate pain 03/11/24 07/27/24 tablet,extended release methadone 10 mg/mL oral 125 mg PO DAILY 03/11/24 07/22/24 concentrate (Methadone Intensol) polyethylene glycol 3350 17 17 g PO DAILY PRN Constipation 03/11/24 07/27/24 gram/dose oral powder (Miralax) clonidine HCl 0.1 mg tablet 0.1 mg PO BID anxiety 07/22/24 07/27/24 ferrous sulfate 325 mg (65 mg 325 mg PO Q48H 07/22/24 07/27/24 iron) tablet,delayed release olanzapine 5 mg tablet 5 mg PO TID PRN agitation 07/22/24 07/27/24 sennosides 8.6 mg tablet (Natural 17.2 mg PO BID PRN constipation 07/22/24 07/27/24 Senna Laxative) clonidine HCl 0.1 mg tablet 0.1 mg PO DAILY@1200 PRN anxiety 07/27/24 07/27/24 docusate sodium 100 mg tablet 100 mg PO BID PRN Constipation 07/27/24 07/27/24 famotidine 20 mg tablet 20 mg PO BEDTIME 07/27/24 07/27/24 ibuprofen 400 mg tablet 400 mg PO Q6H PRN Fever/Pain 07/27/24 07/27/24 mwydto-zpwfsmbp-fixsewt 2 cap PO TIDWM 07/27/24 07/27/24 36,000-114,000-180,000 unit capsule,delay rel (Creon) Previous Rx's ?Medication ?Instructions ?Recorded esomeprazole magnesium 40 mg 40 mg PO DAILY #30 caps 01/14/24 capsule,delayed release (Nexium) magnesium oxide 400 mg PO BEDTIME #30 caps 04/14/24 fluticasone furoate 200 1 inh inhalation DAILY #60 ea 05/10/24 mcg-vilanterol 25 mcg/dose inhalation powder (Breo Ellipta) fluoxetine 20 mg capsule 40 mg (2 x 20 mg) PO DAILY #0 caps 07/03/24 hydroxyzine HCl 25 mg tablet 25 mg PO TID PRN mild anxiety 30 07/03/24 days #90 tabs Allergies Allergy/AdvReac Type Severity Reaction Status Date / Time Penicillins [PENICILLINS] Allergy Unknown RASH Verified 07/27/24 07:52 Review of Systems Review of Systems: Yes all other systems are reviewed and are negative Constitutional: Constitutional: Reports as per HPI Eyes: Eyes: Reports as per HPI, Denies change in vision and Denies eye discharge ENT: Reports system reviewed and no additional complaints, except as documented, Reports as per HPI, Reports Normal hearing present and Denies facial pain Cardiovascular: Cardiovascular: Reports as per HPI and Denies chest pain Respiratory: Respiratory: Reports as per HPI and Denies cough Gastrointestinal: Gastrointestinal: Reports as per HPI, Reports no additional gastrointestinal complaints, Denies abdominal pain, Denies diarrhea, Denies nausea and Denies vomiting Genitourinary: Genitourinary: Reports as per HPI Musculoskeletal: Musculoskeletal: Reports no additional musculoskeletal complaints and Reports as per HPI Integumentary/Breasts: Skin/Breast: Reports system reviewed and no additional complaints, except as docu, Reports as per HPI, Reports erythema, Denies rash and Denies wounds Neurologic: Reports Normal hearing present Psychiatric: Psychiatric: Reports no additional psychiatric complaints and Reports as per HPI Endocrine: Endocrine: Reports no additional endocrine complaints and Reports as per HPI Hematologic/Lymphatic: Hematologic/Lymphatic: Reports no additional hematologic/lymphatic complaints and Reports as per HPI Allergic/Immunologic: Allergic/Immunologic: Reports no additional allergic/immunologic complaints and Reports as per HPI [facility] Past Medical History Attestation statement: The following information was validated with the patient. Medical History Suicidal ideation Exocrine pancreatic insufficiency Polysubstance abuse No known health problems Social History Social History Household Members: Family Housing: Apartment Do you presently have visiting nurse or other home services: No Alcohol intake: former Patient Tobacco Use Status: Former Tobacco user Substance Use Type: Marijuana Advance Directives: Yes Advance Directives on File: Yes Advance Directives Date on File: 03/15/24 Do you have a plan to hurt others: No Plan service: No Sexual orientation: Straight/Heterosexual Physical Exam ED Vital Signs: Vital Signs - 24 hr 07/27/24 07:49 07/27/24 10:46 07/27/24 14:04 Temperature 99.4 F 97.4 F 97.7 F Pulse Rate 78 72 74 Respiratory Rate 16 16 16 Blood Pressure 118/90 H 106/88 126/74 Pulse Oximetry 92 98 94 Oxygen Delivery Method Room Air Nasal Cannula Oxygen Flow Rate 2 2 BMI result Body Mass Index 43.6 Const General: cooperative, comfortable, no acute distress and alert Orientation/consciousness: patient oriented x3 Limitations: no limitations HENMT Head: Yes normal to inspection, Yes normocephalic and Yes atraumatic Ears: hearing grossly normal bilaterally General nose exam: Normal external nose present Face and sinus: Yes normal facial exam Mouth: Normal oral and palatal mucosa present, oropharynx normal and moist mucous membranes Throat: Yes posterior oropharynx normal Eyes General: appearance normal, both eyes and all related structures Eyelids: Yes eyelids normal Conjunctivae: conjunctivae normal Sclerae: sclerae normal Pupils: Equal, round and reactive pupils present EOM: EOMs intact bilaterally Neck Neck: Yes normal visual inspection, Yes full ROM and Yes no lymphadenopathy Lymphatic: no lymphadenopathy noted Chest Chest palpation & inspection: normal inspection of the chest Resp Effort & Inspection: normal respiratory effort and able to speak in complete sentences Auscultation: clear to auscultation bilaterally Cardio Rate: regular rate Rhythm: regular rhythm Heart sounds: S1 normal heart sound present and S2 normal heart sound present GI Inspection: Yes normal to inspection Skin General skin exam: no rashes or lesions noted Trauma: no lacerations or abrasions Wounds: no wounds Neuro General: patient oriented x3 and moves all extremities Cranial nerves: Yes Equal, round and reactive pupils present and Yes Normal hearing present Extrem General: Yes normal to inspection Right upper extremity: normal to inspection Left upper extremity: normal to inspection Left lower extremity: normal to inspection Psych Appearance: well kempt Course Reevaluation(s) Reevaluation #1: Patient resting comfortably however visibly snoring, and he becomes diaphoretic with sleeping. Patient was awoken, and states that he has been having this for many years. At a chest x-ray for evaluation. Awaiting care team consult as well. Time: 10:49 Reevaluation #2: Chest x-ray similar to previous. Patient's oxygen saturation maintained when awake, decreases when he wis sleeping. Has a history of sleep apnea. He was placed on 2 L nasal cannula for sleeping. He also appeared to be diaphoretic with sweat dripping down his face, he states that he has had this ongoing for the last 2 years. He has been seen here in the past for this is well. 90-91% while sleeping. Awaiting care team consultation for further workup and disposition. Patient placed in Phys obs Time: 11:51 Reevaluation #3: Patient was seen and evaluated by the care team, no safety concerns at this time, can be safely discharged back to [facility]. Patient's overall workup today was reassuring. I encouraged patient to follow-up with his primary care and sleep study as he really needs to be using his CPAP machine. He understands and he will do so. Upon his discharge, patient stating ?I do not want to go back to [facility], I am going to kill myself, did I say that loud enough for all of you? I discussed with care team, who will come and reassess. Time: 12:52 Additional Reevaluation(s): Patient was placed on section 12, and admitted to the psychiatric floor. Transfer of care initiated Medications Administered Discontinued Medications Generic Name Dose Route Start Last Admin Trade Name Linda PRN Reason Stop Dose Admin Acetaminophen 650 mg 07/27/24 13:16 07/27/24 13:31 Acetaminophen 325 Mg Tablet PO 07/27/24 13:17 650 mg ONCE ONE Administration Lorazepam 1 mg 07/27/24 08:58 07/27/24 09:05 Lorazepam 1 Mg Tablet PO 07/27/24 08:59 1 mg ONCE ONE Administration Medical Decision Making Medical Decision Making [facility] Narrative: This is a 39-year-old male, with a past medical history of polysubstance use disorder on methadone, chronic abdominal pain, gastritis, morbid obesity, TYSON noncompliant with CPAP, who presents emergency department with concerns for suicidal ideation. He also reports hot and cold sweats, dry mouth and fatigue. He did not sleep well after being admitted to [facility]. He was seen here on July 22 with similar symptoms. He was also seen here yesterday and was sent to [facility]. He states that he has already taken hydroxyzine, and all of his other meds including methadone this morning, and none of the medications that were given to him had helped him. He does report suicidal ideation with auditory hallucinations. Given this, will obtain labs, UA, and patient will be seen by the care team. Will medicate with Ativan as he was already taken other medications without relief. Differential Diagnosis Differential Diagnoses: The differential diagnosis associated with the presentation includes Lab Data [facility] Lab Attestation statement: I reviewed the patient's lab results. No leukocytosis, microcytic anemia with an H&H of 11.3/36.4, chemistry revealing no significant electrolyte derangement. Urine unremarkable. Positive for marijuana and methadone. 07/27/24 08:36 07/27/24 08:36 Labs: Lab Results 07/27/24 Range/Units 08:36 WBC 12.0 H (4.8-10.8) X10*3/uL RBC 4.65 (4.60-5.80) X10*6/uL Hgb 11.3 L (14.0-18.0) g/dl Hct 36.4 L (42.0-52.0) % MCV 78.3 L (80.0-98.0) fL MCH 24.3 L (27.0-33.0) pg MCHC 31.0 (31.0-36.0) g/dl RDW 16.0 (11.0-16.0) % Plt Count 292 (160-400) X10*3/uL MPV 8.7 L (9.4-12.4) fL Immature Gran % (Auto) 1.2 H (0.0-0.4) % Neut % (Auto) 80.9 H (45-73) % Lymph % (Auto) 8.8 L (20-40) % [place] % (Auto) 7.7 (2-11) % Eos % (Auto) 1.0 (0-4) % Baso % (Auto) 0.4 (0-2) % Lymph # (Auto) 1.1 L (1.2-4.9) X10*3/uL [place] # (Auto) 0.9 (0.1-1.2) X10*3/uL Eos # (Auto) 0.1 (0.0-0.4) X10*3/uL Baso # (Auto) 0.1 (0.0-0.2) X10*3/uL Abs Immat Gran (auto) 0.15 H (0.00-0.03) X10*3/uL Absolute Neuts (auto) 9.7 H (2.0-8.3) x10*3/uL Absolute Nucleated RBC 0.000 (0.0-0.012) X10*3/uL Nucleated RBC % (auto) 0.0 (0.0-0.2) /100WBC Sodium 135 (135-145) mmol/L Potassium 4.1 (3.3-5.1) mmol/L Chloride 100 (96-108) mmol/L Carbon Dioxide 29 (22-29) mmol/L Anion Gap 10 L (12-20) BUN 11 (9-16) mg/dL Creatinine 0.76 (0.5-1.4) mg/dL Estim Creat Clear Calc 164.2 Estimated GFR > 60 Random Glucose 143 H (60-115) mg/dL Calcium 9.0 (8.4-10.2) mg/dL Total Bilirubin 0.5 (0.0-1.0) mg/dL AST 27 (5-37) U/L ALT 20 (0-40) U/L Alkaline Phosphatase 118 H (39-117) U/L Troponin I High Sens < 2.7 (<3.5-35.0) ng/L Total Protein 7.2 (6.5-8.0) g/dL Albumin 3.7 (3.5-5.0) g/dL Urine Color Yellow Urine Appearance Clear Urine pH >= 9.0 (5.0-9.0) Ur Specific [place] 1.015 (1.005-1.025) Urine Protein Negative (Neg-Trace) mg/dL Urine Glucose (UA) Negative (Negative) mg/dL Urine Ketones Negative (Negative) mg/dL Urine Blood Negative (Negative) Urine Nitrite Negative (Negative) Ur Leukocyte Esterase Negative (Negative) Salicylates < 5.0 L (15-30) mg/dL Urine Opiates Screen Not Detected (Not Detect) Ur Buprenorphine Scrn Not Detected (Not Detect) ng/mL Ur Oxycodone Screen Not Detected (Not Detect) ng/mL Urine Methadone Screen Positive H (Not Detect) ng/mL Urine Fentanyl Screen Not Detected (Not Detect) Acetaminophen < 3 (<30) mcg/mL Ur Barbiturates Screen Not Detected (Not Detect) Ur Phencyclidine Scrn Not Detected (Not Detect) Ur Amphetamines Screen Not Detected (Not Detect) U Benzodiazepines Scrn Not Detected (Not Detect) Urine Cocaine Screen Not Detected (Not Detect) U Marijuana (THC) Screen POSITIVE H (Not Detect) Ethyl Alcohol < 10 mg/dL Influenza Type A (PCR) NEGATIVE (Negative) Influenza Type B (PCR) NEGATIVE (Negative) RSV RNA Qual (PCR) NEGATIVE (Negative) SARS-CoV-2 RNA (RT-PCR) NEGATIVE (Negative) Discharge Plan Discharge Clinical Impression: Anxiety Patient Disposition: Admitted As Inpatient Interventions: [place]-Suicide Risk Severity Scale Last Done: 07/27/24 08:41
[2024-07-27 08:48] LABS: Appearance Urine Clear; Color Urine Yellow; Glucose Urine UA Negative (Negative); Leukocyte Esterase Urine Negative (Negative); Nitrite Urine Negative (Negative); PH >= 9.0 (5.0-9.0); Specific Gravity - Urine 1.015 (1.005-1.025); Urine Blood Negative (Negative); Urine Ketones Negative (Negative); Urine Protein Negative (Neg-Trace)
[2024-07-27 08:50] LABS: Basophils Absolute Auto 0.1 X10*3/uL (0.0-0.2); Basophils Percent Auto 0.4 % (0-2); Eosinophils Absolute Auto 0.1 X10*3/uL (0.0-0.4); Hematocrit 36.4 % (42.0-52.0); Hemoglobin 11.3 g/dl (14.0-18.0); Imm Gran Abs Auto 0.15 X10*3/uL (0.00-0.03); Imm Gran Pct Auto 1.2 % (0.0-0.4); Lymphocytes Absolute Auto 1.1 X10*3/uL (1.2-4.9); Lymphocytes Percent Auto 8.8 % (20-40); Mean Corpuscular Hemoglobin 24.3 pg (27.0-33.0); Mean Corpuscular Volume 78.3 fL (80.0-98.0); Mean Platelet Volume 8.7 fL (9.4-12.4); Monocytes Absolute Auto 0.9 X10*3/uL (0.1-1.2); Monocytes Percent Auto 7.7 % (2-11); Neutrophils Absolute Auto 9.7 x10*3/uL (2.0-8.3); Neutrophils Percent Auto 80.9 % (45-73); Platelet Count 292 X10*3/uL (160-400); Red Blood Count 4.65 X10*6/uL (4.60-5.80)
[2024-07-27 08:54] LABS: Amphetamine Screen Urine Not Detected (Not Detect); Barbiturates, Urine Not Detected (Not Detect); Benzodiazepines Screen Urine Not Detected (Not Detect); Buprenorphine Scr Not Detected (Not Detect); Cannabinoid Screen Urine POSITIVE (Not Detect); Cocaine Screen Urine Not Detected (Not Detect); Fentanyl, urine Not Detected (Not Detect); Methadone Screen, Urine Positive (Not Detect); Opiate Screen Urine Not Detected (Not Detect); Oxycodone Screen Urine Not Detected (Not Detect); Phencyclidine Screen Urine Not Detected (Not Detect)
--- NOTE | 2024-07-27 08:54 | PC.NURSE ---
patient change into hospital attire w/ security and rns. provided urine sample, labs obtained. belongings placed in osmany port on the ground. patient w/ vague si, reports dry mouth and feeling weak. previous visits for same complaint. patient takes 125mg of methadone which he was dosed with prior to arrival.
[2024-07-27 09:01] LABS: Ethanol < 10 mg/dL
[2024-07-27 09:02] LABS: Alanine Aminotransferase 20 U/L (0-40); Albumin Level 3.7 g/dL (3.5-5.0); Alkaline Phosphatase 118 U/L (39-117); Anion Gap 10 (12-20); Aspartate Amino Transferase 27 U/L (5-37); Bilirubin Total 0.5 mg/dL (0.0-1.0); Blood Urea Nitrogen 11 mg/dL (9-16); Carbon Dioxide 29 mmol/L (22-29); Chloride 100 mmol/L (96-108); Creatinine Clr Calc Pharmacy 164.2; Estimated Glomerular Filt Rate > 60; Glucose Random 143 mg/dL (60-115); Potassium 4.1 mmol/L (3.3-5.1); Sodium 135 mmol/L (135-145); Total Protein 7.2 g/dL (6.5-8.0)
[2024-07-27 09:04] LABS: Acetaminophen LAB < 3 mcg/mL (<30); Salicylate < 5.0 mg/dL (15-30)
[2024-07-27] MEDS: LORazepam 1 MG TABLET PO (09:05)
--- NOTE | 2024-07-27 09:17 | ECG_ITS ---
Test Reason : med clearance Blood Pressure : */* mmHG Vent. Rate : 74 BPM Atrial Rate : 74 BPM P-R Int : 148 ms QRS Dur : 96 ms QT Int : 424 ms P-R-T Axes : 33 17 24 degrees QTcB Int : 470 ms Normal sinus rhythm with sinus arrhythmia Normal ECG When compared with ECG of 22-Jul-2024 11:49, No significant change was found Referred By: Hilary Serra Electronically Signed By: ROSAMARIA KUNZ
[2024-07-27 09:42] LABS: Influenza A PCR NEGATIVE (Negative); Influenza B PCR NEGATIVE (Negative); Resp Syncy Virus RNA Qual PCR NEGATIVE (Negative); SARS COV2 PCR INHOUSE NEGATIVE (Negative)
[2024-07-27 09:47] LABS: Troponin-I High Sensitivity < 2.7 ng/L (<3.5-35.0)
--- NOTE | 2024-07-27 10:47 | PC.NURSE ---
Pt has hx of sleep apnea but does not have any device at home at this time. 90-91% while sleeping. Placed on NC 2L now at > 95%. Pt diaphoretic w/ obvious sweat dripping from face which pt states has been going on for 2 years. X-ray ordered. Pt observer remains at bedside.
[2024-07-27] MEDS: Acetaminophen 325 MG TABLET 650 MG PO ×2 (13:31→20:32)
--- NOTE | 2024-07-27 13:59 | PHA.MEDREC ---
Addendum entered by Deangelo Vega 07/27/24 14:42: reviewed Addendum entered by Alysha Can 07/27/24 14:00: Patient only scheduled to take Mirtazapine 15mg tabs for 5 days; patient started at facility yesterday 07/26, should end 07/31. Original Note: Pharmacy Consult ? Medication Reconciliation Pharmacy has completed the medication reconciliation. Utilized list from [facility].
--- NOTE | 2024-07-27 15:40 | MHC.EDTECH ---
bROTHER Luciano LOOKING FOR UPDATE. #[phone]
--- NOTE | 2024-07-27 18:19 | PC.ADMIT ---
Yaniv is a 37 year old [place] speaking male who was BIBA from [facility] endorsing SI w/plan to stab himself in the neck or jump from a tall building. He arrived on m5 from ED6H at 18:00 on a CV. Precipitants of this admission include pt feeling increasingly depressed after medication changes and ongoing medical concerns. Pt stated for the past 2 years I've been getting super sweaty on an on and off basis, going from sweating to freezing and the other way around. I've been getting sick every week and my mental health is going down hill. I had SI... . Pt also stated Im connected to [facility] but [facility] it's not very professional over there so I came to the hospital . During the admission process pt is AOx4, cooperative, polite, with pressured speech and anxious with an intense stare. During skin check some scattered rushing found on the body possibly by previous (~2 years ago) IVDU. Pt is currently on methadone and vapes marijuana. He denies current nicotine use. He denies AH/VH/SI/HI. He has TYSON on CPAP. He also has a hx of exocrine pancreatic insufficiency however pt claims he does not know anything about that. Pt is allergic to penicillins (rash).
[2024-07-27] MEDS: Lipase/Prot/Amylase 24/76/120K 1 CAP CAPSULE.DR 3 CAP PO (20:10)
[2024-07-27] MEDS: traZODone HCL 50 MG TABLET PO (20:22)
[2024-07-27] MEDS: Magnesium Oxide 400 MG TABLET PO (20:22)
[2024-07-27] MEDS: cloNIDine HCL 0.1 MG TABLET PO (20:22)
[2024-07-27] MEDS: Famotidine 20 MG TABLET PO (20:23)
[2024-07-27] MEDS: Mirtazapine 15 MG TABLET PO (20:23)
[2024-07-27] MEDS: Sennosides 8.6 MG TABLET 17.2 MG PO (20:26)
[2024-07-28] VITALS (7 sets, daily range): BP systolic 102–152; BP diastolic 59–109; PULSE 73–97; RESP 16; TEMP 36.3–36.4; O2SAT 92–95
[2024-07-28] MEDS: traZODone HCL 50 MG TABLET PO (01:18)
--- NOTE | 2024-07-28 03:02 | PC.NURSE ---
Patient did not want to engage with this entry writer to complete his admission paperwork. He wanted medications and to be allowed to sleep.
[2024-07-28] MEDS: hydrOXYzine HCL 25 MG TABLET PO ×2 (03:24→08:37)
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
[2024-07-28] MEDS: Omeprazole 20 MG CAPSULE.DR PO (06:20)
[2024-07-28] MEDS: cloNIDine HCL 0.1 MG TABLET PO ×3 (06:42→20:19)
--- NOTE | 2024-07-28 06:45 | PC.NURSE ---
Patient offered the c-pap last night but told this lead technical writer and respiratory therapist, Not tonight, I'll start it tomorrow night . This morning patient said no one ever came to his room to put on the c-pap, patient reassured it was offered and turned down. At this time patient is c/o restlessness and high anxiety. Clonidine scheduled for 0900 given early.
--- NOTE | 2024-07-28 07:46 | PC.NURSE ---
Patient highly agitated. Cussing, hitting wall, asking to go to the ED to help with his anxiety. Initially he said he was needing the Methadone, that had not been verified yet. Methadone verified with clinic and [facility] last dose given. Pharmacy aware. Patient is now saying he needs something else. Patient said Lorazepam given yesterday in ED was helpful with the hot and cold feeling.
[2024-07-28] MEDS: methADONE HCl 20 MG/2 ML ORAL.CONC 125 MG PO (07:51)
--- NOTE | 2024-07-28 07:55 | HE.PHANOTE ---
METHADONE CONFIRMATION FORM Manny OTP 125 MG LAST GIVEN 07/27/24 @ 0698
[2024-07-28] MEDS: LORazepam 1 MG TABLET PO (08:11)
[2024-07-28] MEDS: FLUoxetine HCl 20 MG CAPSULE 40 MG PO (08:37)
[2024-07-28] MEDS: Aspirin Enteric Coated 81 MG TABLET.DR PO (08:37)
[2024-07-28] MEDS: Lipase/Prot/Amylase 24/76/120K 1 CAP CAPSULE.DR 3 CAP PO ×2 (08:37→12:34)
[2024-07-28] MEDS: Ferrous Sulfate 324 MG TABLET.DR PO (08:37)
[2024-07-28 09:25] LABS: Estimated Average Glucose 126 mg/dL; Hemoglobin A1C 135.8477 umol/L; Total Hemoglobin (HGBA1C) 3253.1887 umol/L
--- NOTE | 2024-07-28 09:39 | HO.PSYADMNOT ---
HPI Date of Service: 07/28/24 Chief Complaint: SI Sources of Information: patient interviewed, chart reviewed and crisis/core team assessment reviewed Additional Sources of Information: Seen 10am HPI Subjective Notes: Le Warning and Conditional Voluntary Healthcare Proxy: No Guardianship: No Medical Problems Affecting Mental Status: No Narrative: 39 yo male, to ER with EMS from respite with SI with plan to stab himself in the neck or jump from a tall building. Pt seen for a similiar presentation per team report the day before, with plan to go to respite. Reports dissatisfaction with med review, increased sx and feeling that no one is addressing his concerns. Reports recovery since 2021 with anxiety/panic attacks, alterations in body temperature, diaphoresis, SOB, arms numb and refused meds for panic, until the hospital gives them Recent M3 admit with pt on Seroquel and Olanzapine-effective but stopped. Discussed benzodiazepine seeking which he acknowledges but states he has worked hard on recovery and wants to be treated fairly. Was going to get #6 Ativan per month however, I have had 3 attacks in 3 days so that will not work. Past Psychiatric History: Psychiatrist: Curtis WELLINGTON Therapist: Clifton WELLINGTON Denies history of SA. Reports history of punching self good states he has not done this in years. He reports his last psychiatric admission being in 2013. History of detox admissions and section 35. Medical Evaluation Reviewed: Yes [facility] Medical History Suicidal ideation Exocrine pancreatic insufficiency Polysubstance abuse No known health problems Family History: Unknown Social History: Lives with mother. Single. 19-year-old child. Unemployed. Highest level of education completed 11th grade. Substance History: Cannabis Sober from Opiates since 2021 Does 27 take homes per month Trauma History: Denies Diagnostics Vital Signs (24Hr): Vital Signs - 24 hr 07/27/24 10:46 07/27/24 14:04 07/27/24 18:16 Temperature 97.4 F 97.7 F 97.4 F Pulse Rate 72 74 75 Respiratory Rate 16 16 18 Blood Pressure 106/88 126/74 138/90 H Pulse Oximetry 98 94 94 Oxygen Delivery Method Nasal Cannula Room Air Oxygen Flow Rate 2 2 07/27/24 20:00 07/27/24 20:22 07/28/24 06:42 Temperature 97.6 F Pulse Rate 62 Respiratory Rate 16 Blood Pressure 118/80 118/80 130/69 Pulse Oximetry 95 Oxygen Delivery Method Room Air Oxygen Flow Rate 07/28/24 06:43 07/28/24 07:50 07/28/24 09:35 Temperature 97.6 F 97.3 F Pulse Rate 89 97 Respiratory Rate 16 16 Blood Pressure 130/69 152/109 H 138/84 Pulse Oximetry 94 95 Oxygen Delivery Method Room Air Oxygen Flow Rate BMI result Body Mass Index 46.1 Labs 07/27/24 08:36 07/28/24 08:51 Labs: Laboratory Results - last 48 hr 07/27/24 07/28/24 08:36 08:51 WBC 12.0 H RBC 4.65 Hgb 11.3 L Hct 36.4 L MCV 78.3 L MCH 24.3 L MCHC 31.0 RDW 16.0 Plt Count 292 MPV 8.7 L Immature Gran % (Auto) 1.2 H Neut % (Auto) 80.9 H Lymph % (Auto) 8.8 L Kinney % (Auto) 7.7 Eos % (Auto) 1.0 Baso % (Auto) 0.4 Lymph # (Auto) 1.1 L Kinney # (Auto) 0.9 Eos # (Auto) 0.1 Baso # (Auto) 0.1 Abs Immat Gran (auto) 0.15 H Absolute Neuts (auto) 9.7 H Absolute Nucleated RBC 0.000 Nucleated RBC % (auto) 0.0 Sodium 135 Potassium 4.1 Chloride 100 Carbon Dioxide 29 Anion Gap 10 L BUN 11 Creatinine 0.76 Estim Creat Clear Calc 164.2 Estimated GFR > 60 Random Glucose 143 H Estimat Average Glucose 126 Hemoglobin A1c % 6.0 Calcium 9.0 Total Bilirubin 0.5 AST 27 ALT 20 Alkaline Phosphatase 118 H Troponin I High Sens < 2.7 Total Protein 7.2 Albumin 3.7 Urine Color Yellow Urine Appearance Clear Urine pH >= 9.0 Ur Specific [place] 1.015 Urine Protein Negative Urine Glucose (UA) Negative Urine Ketones Negative Urine Blood Negative Urine Nitrite Negative Ur Leukocyte Esterase Negative Salicylates < 5.0 L Urine Opiates Screen Not Detected Ur Buprenorphine Scrn Not Detected Ur Oxycodone Screen Not Detected Urine Methadone Screen Positive H Urine Fentanyl Screen Not Detected Acetaminophen < 3 Ur Barbiturates Screen Not Detected Ur Phencyclidine Scrn Not Detected Ur Amphetamines Screen Not Detected U Benzodiazepines Scrn Not Detected Urine Cocaine Screen Not Detected U Marijuana (THC) Screen POSITIVE H Ethyl Alcohol < 10 Influenza Type A (PCR) NEGATIVE Influenza Type B (PCR) NEGATIVE RSV RNA Qual (PCR) NEGATIVE SARS-CoV-2 RNA (RT-PCR) NEGATIVE EKG EKG Comment: QTc 470 Imaging Radiology Impressions: ITS Impressions Chest X-Ray 07/27/24 10:43 IMPRESSION: Diffuse prominence of the background interstitial markings. No consolidative pneumonia. Prominent hilar markings bilaterally, of uncertain significance. Overall, findings appear similar chest radiograph 07/22/2024. Electronically signed by: Compa Wilder MD 07/27/2024 11:06 AM EDT RP Meds/Allergies Meds Home Medications ?Medication ?Instructions ?Recorded ?Confirmed ?Type aspirin 81 mg tablet,delayed 81 mg PO DAILY 09/02/23 07/27/24 History release mirtazapine 15 mg tablet 15 mg PO BEDTIME 09/02/23 07/27/24 History acetaminophen 650 mg 650 mg PO Q4H PRN moderate pain 03/11/24 07/27/24 History tablet,extended release methadone 10 mg/mL oral 125 mg PO DAILY 03/11/24 07/28/24 History concentrate (Methadone Intensol) polyethylene glycol 3350 17 17 g PO DAILY PRN Constipation 03/11/24 07/27/24 History gram/dose oral powder (Miralax) clonidine HCl 0.1 mg tablet 0.1 mg PO BID anxiety 07/22/24 07/27/24 History ferrous sulfate 325 mg (65 mg 325 mg PO Q48H 07/22/24 07/27/24 History iron) tablet,delayed release olanzapine 5 mg tablet 5 mg PO TID PRN agitation 07/22/24 07/27/24 History sennosides 8.6 mg tablet (Natural 17.2 mg PO BID PRN constipation 07/22/24 07/27/24 History Senna Laxative) clonidine HCl 0.1 mg tablet 0.1 mg PO DAILY@1200 PRN anxiety 07/27/24 07/27/24 History docusate sodium 100 mg tablet 100 mg PO BID PRN Constipation 04/24/25 04/24/25 History famotidine 20 mg tablet 20 mg PO BEDTIME 07/27/24 07/27/24 History ibuprofen 400 mg tablet 400 mg PO Q6H PRN Fever/Pain 07/27/24 07/27/24 History vsvnxa-[id number] 2 cap PO TIDWM 07/27/24 07/27/24 History 36,000-114,000-180,000 unit capsule,delay rel (Creon) Allergies Allergies Allergy/AdvReac Type Severity Reaction Status Date / Time Penicillins [PENICILLINS] Allergy Unknown RASH Verified 07/27/24 07:52 Mental Status Exam Mental Status Exam Patient Appearance: Appropriate Patient Orientation: Person, Place, Time and Situation Level of Consciousness: Alert Patient Behavior: Talkative and Good Eye Contact Mood Description: Depressed Affect Description: Flat Patient Cognition Impaired: No Ability to Follow Directions: Fair Speech Pattern: Spontaneous Speech Memory Description: Episodic Impaired Hallucinations: None Delusions: Not Present Thought Process: Intact and Rumination Thought Content: positive for Circumstantial, positive for Perseveration and positive for Suicidal Ideation Depressive Symptoms: Thoughts of /Suicide Judgement: Fair Assessment & Plan Assessment & Plan (1) Opioid use disorder: Status: Acute Code(s): F11.90 - Opioid use, unspecified, uncomplicated (2) MDD (major depressive disorder), recurrent episode, moderate: Status: Acute Code(s): F33.1 - Major depressive disorder, recurrent, moderate Plan Admit, CV, 15 minute checks Diagnostics as needed Collateral Contact Encourage milieu involvement Discharge planning Seroquel 75 mg bid Depakote 250 mg bid MVI one tab daily Klonopin 0.5 mg bid-If possible with no titration, will focus on mood stabilizing agents. Patient educated on: medication risk/benefits and therapeutic strategies Informed Consent: understands Reason for continued inpatient stay Substantial Risk for: rapid decompensation and med/psych decompensation Statement Statement: I have reviewed the history and physical and performed a pertinent examination on my patient. No changes have occurred unless specified. If the History and Physical was not performed prior to admission, the Hospitalist's service will be consulted for completing the admission physical. Time Spent With Patient Time: Total time managing care of this patient today ____ minutes.
[2024-07-28 09:40] LABS: Alanine Aminotransferase 26 U/L (0-40); Alkaline Phosphatase 131 U/L (39-117); Anion Gap 12 (12-20); Aspartate Amino Transferase 28 U/L (5-37); Bilirubin Total 0.5 mg/dL (0.0-1.0); Blood Urea Nitrogen 13 mg/dL (9-16); Calcium 9.4 mg/dL (8.4-10.2); Carbon Dioxide 27 mmol/L (22-29); Chloride 100 mmol/L (96-108); Cholesterol 166 mg/dL (<200); Creatinine Clr Calc Pharmacy 167.5; Estimated Glomerular Filt Rate > 60; Glucose Random 162 mg/dL (60-115); HDL Cholesterol 43 mg/dL (>40); LDL Cholesterol Calculated 107 mg/dL (<100); Potassium 4.3 mmol/L (3.3-5.1); Sodium 135 mmol/L (135-145); Total Protein 7.9 g/dL (6.5-8.0); Triglycerides 83 mg/dL (<150)
[2024-07-28 09:45] LABS: TSH reflex Free T4 0.89 uIU/mL (0.32-4.0)
[2024-07-28] MEDS: QUEtiapine Fumarate 25 MG TABLET 75 MG PO ×2 (12:34→20:19)
[2024-07-28] MEDS: clonazePAM 1 MG TABLET PO (12:35)
[2024-07-28] MEDS: Mirtazapine 15 MG TABLET PO (20:19)
[2024-07-28] MEDS: Famotidine 20 MG TABLET PO (20:19)
[2024-07-28] MEDS: Magnesium Oxide 400 MG TABLET PO (20:19)
[2024-07-28] MEDS: Divalproex Sodium 250 MG TABLET.DR PO (20:20)
[2024-07-28] MEDS: clonazePAM 0.5 MG TABLET PO (20:21)
[2024-07-28] MEDS: Sennosides 8.6 MG TABLET 17.2 MG PO (20:26)
[2024-07-29] MEDS: Omeprazole 20 MG CAPSULE.DR PO (06:37)
[2024-07-29] MEDS: methADONE HCl 20 MG/2 ML ORAL.CONC 125 MG PO (07:41)
[2024-07-29 08:00] VITALS: BP 130/92; PULSE 102; RESP 16; TEMP 36.2; O2SAT 95
[2024-07-29] MEDS: FLUoxetine HCl 20 MG CAPSULE 40 MG PO (08:12)
[2024-07-29 08:13] VITALS: BP 130/92
[2024-07-29] MEDS: cloNIDine HCL 0.1 MG TABLET PO ×3 (08:13→20:16)
[2024-07-29] MEDS: Divalproex Sodium 250 MG TABLET.DR PO ×2 (08:13→20:16)
[2024-07-29] MEDS: clonazePAM 0.5 MG TABLET PO ×2 (08:13→20:16)
[2024-07-29] MEDS: Multivitamin TABLET 1 TAB PO (08:13)
[2024-07-29] MEDS: QUEtiapine Fumarate 25 MG TABLET 75 MG PO ×2 (08:13→20:16)
[2024-07-29] MEDS: Aspirin Enteric Coated 81 MG TABLET.DR PO (08:13)
--- NOTE | 2024-07-29 09:11 | P.PNPSI_ITS ---
Subjective Subjective Date of Service: 07/29/24 Reason For Visit: SI Interim History: met with patient; discussed with team; reviewed chart pt reports overall better but still anxious and still getting panicked feelings; discussed meds and agrees to add seroquel prn no Si/hi/avh Mental Status Exam Mental Status Exam Patient Appearance: Appropriate Patient Orientation: Person, Place, Time and Situation Level of Consciousness: Alert Patient Behavior: Appropriate and Good Eye Contact Mood Description: Anxious Affect Description: Anxious Patient Cognition Impaired: No Ability to Follow Directions: Fair Speech Pattern: Spontaneous Speech Memory Description: Episodic Impaired Hallucinations: None Delusions: Not Present Thought Process: Intact and Rumination Thought Content: positive for Perseveration, positive for Suicidal Ideation (none) and positive for Homicidal Ideation (none) Judgement: Fair Diagnostics Vital Signs (24Hr): Vital Signs - 24 hr 07/28/24 09:35 07/28/24 20:00 07/28/24 20:19 Temperature 97.3 F 97.5 F Pulse Rate 97 84 Respiratory Rate 16 Blood Pressure 138/84 107/59 L 102/59 L Pulse Oximetry 95 92 Oxygen Delivery Method Room Air 07/29/24 08:13 Temperature Pulse Rate Respiratory Rate Blood Pressure 130/92 H Pulse Oximetry Oxygen Delivery Method BMI result Body Mass Index 46.1 Labs 07/27/24 08:36 07/28/24 08:51 Labs: Laboratory Results - last 48 hr 07/27/24 07/28/24 08:36 08:51 Sodium 135 Potassium 4.3 Chloride 100 Carbon Dioxide 27 Anion Gap 12 BUN 13 Creatinine 0.77 Estim Creat Clear Calc 167.5 Estimated GFR > 60 Random Glucose 162 H Estimat Average Glucose 126 Hemoglobin A1c % 6.0 Calcium 9.4 Total Bilirubin 0.5 AST 28 ALT 26 Alkaline Phosphatase 131 H Troponin I High Sens < 2.7 Total Protein 7.9 Albumin 4.0 Triglycerides 83 Cholesterol 166 LDL Cholesterol, Calc 107 H HDL Cholesterol 43 TSH 0.89 Influenza Type A (PCR) NEGATIVE Influenza Type B (PCR) NEGATIVE RSV RNA Qual (PCR) NEGATIVE SARS-CoV-2 RNA (RT-PCR) NEGATIVE Imaging Radiology Impressions: ITS Impressions Chest X-Ray 07/27/24 10:43 IMPRESSION: Diffuse prominence of the background interstitial markings. No consolidative pneumonia. Prominent hilar markings bilaterally, of uncertain significance. Overall, findings appear similar chest radiograph 07/22/2024. Electronically signed by: Compa Wilder MD 07/27/2024 11:06 AM EDT RP Medications Medications Current Medications Acetaminophen (Acetaminophen 325 Mg Tablet) 650 mg PO Q6H PRN PRN Reason: Headache/Pain, Scale 1-10 Last Admin: 07/27/24 20:32 Dose: 650 mg Al Hydroxide/Mg Hydroxide (Magnesium Hydrox/Alum Hydrox 30 Ml Oral.Susp) 30 ml PO Q6H PRN PRN Reason: Heartburn/Nausea Albuterol Sulfate (Albuterol Sulfate 90 Mcg 8 Gm Inhaler) 2 puff INHALE RQ4H PRN PRN Reason: Wheezing Lipase/Protease/Amylase (Lipase/Prot/Amylase /120k 1 Cap Capsule.) 3 cap PO TIDWM [facility] Last Admin: 07/28/24 18:43 Dose: Not Given Aspirin (Aspirin Enteric Coated 81 Mg Tablet.) 81 mg PO DAILY [facility] Last Admin: 07/29/24 08:13 Dose: 81 mg Clonazepam (Clonazepam 0.5 Mg Tablet) 0.5 mg PO BID [facility] Last Admin: 07/29/24 08:13 Dose: 0.5 mg Clonidine HCl (Clonidine Hcl 0.1 Mg Tablet) 0.1 mg PO BID [facility]; Protocol Last Admin: 07/29/24 08:13 Dose: 0.1 mg Clonidine HCl (Clonidine Hcl 0.1 Mg Tablet) 0.1 mg PO DAILY@1200 PRN; Protocol PRN Reason: anxiety Last Admin: 07/28/24 07:51 Dose: 0.1 mg Divalproex Sodium (Divalproex Sodium 250 Mg Tablet.) 250 mg PO BID [facility] Last Admin: 07/29/24 08:13 Dose: 250 mg Docusate Sodium (Docusate Sodium 100 Mg Capsule) 100 mg PO BID PRN PRN Reason: Constipation Famotidine (Famotidine 20 Mg Tablet) 20 mg PO BEDTIME [facility] Last Admin: 07/28/24 20:19 Dose: 20 mg Ferrous Sulfate (Ferrous Sulfate 324 Mg Tablet.) 324 mg PO Q48H [facility] Last Admin: 07/28/24 08:37 Dose: 324 mg Fluoxetine HCl (Fluoxetine Hcl 20 Mg Capsule) 40 mg PO DAILY [facility] Last Admin: 07/29/24 08:12 Dose: 40 mg Fluticasone/Vilanterol (Fluticasone/Vilanterol 200/25 Blst.W.Dev) 1 puff INHALE RDAILY [facility] Last Admin: 07/28/24 09:23 Dose: Not Given Hydroxyzine HCl (Hydroxyzine Hcl 25 Mg Tablet) 25 mg PO Q6H PRN PRN Reason: mild anxiety Last Admin: 07/28/24 08:37 Dose: 25 mg Ibuprofen (Ibuprofen 400 Mg Tablet) 400 mg PO Q6H PRN PRN Reason: Fever/Pain Magnesium Hydroxide (Milk Of Magnesia 30 Ml Oral.Susp) 30 ml PO DAILY PRN PRN Reason: Constipation Magnesium Oxide (Magnesium Oxide 400 Mg Tablet) 400 mg PO BEDTIME [facility] Last Admin: 07/28/24 20:19 Dose: 400 mg Methadone HCl (Methadone Hcl 20 Mg/2 Ml Oral.Conc) 125 mg PO DAILY@0800 [facility] Last Admin: 07/29/24 07:41 Dose: 125 mg Mirtazapine (Mirtazapine 15 Mg Tablet) 15 mg PO BEDTIME [facility] Last Admin: 07/28/24 20:19 Dose: 15 mg Multivitamins/Vitamin C (Multivitamin Tablet) 1 tab PO DAILY [facility] Last Admin: 07/29/24 08:13 Dose: 1 tab Nicotine (Nicotine 21 Mg Patch.Td24) 21 mg TRANSDERMA DAILY PRN PRN Reason: smoking cessation Nicotine Polacrilex (Nicotine Polacrilex 2 Mg Gum) 4 mg BUCCAL Q2H PRN PRN Reason: Nicotine Cravings Omeprazole (Omeprazole 20 Mg Capsule.Dr) 20 mg PO DAILY@0630 [facility] Last Admin: 07/29/24 06:37 Dose: 20 mg Polyethylene Glycol (Polyethylene Glycol 3350 17 Gm Powd.Pack) 17 gm PO DAILY PRN PRN Reason: Constipation Quetiapine Fumarate (Quetiapine Fumarate 25 Mg Tablet) 75 mg PO BID [facility] Last Admin: 07/29/24 08:13 Dose: 75 mg Senna (Sennosides 8.6 Mg Tablet) 17.2 mg PO BID PRN PRN Reason: constipation Last Admin: 07/28/24 20:26 Dose: 17.2 mg Trazodone HCl (Trazodone Hcl 50 Mg Tablet) 50 mg PO BEDTIME MRX1 PRN PRN Reason: Insomnia Last Admin: 07/28/24 01:18 Dose: 50 mg Allergies Allergies Allergy/AdvReac Type Severity Reaction Status Date / Time Penicillins [PENICILLINS] Allergy Unknown RASH Verified 07/27/24 07:52 Assessment & Plan Assessment & Plan (1) MDD (major depressive disorder), recurrent episode, moderate: Status: Acute Code(s): F33.1 - Major depressive disorder, recurrent, moderate (2) Opioid use disorder: Status: Acute Code(s): F11.90 - Opioid use, unspecified, uncomplicated Plan Hospital course: 07/29 pt reports overall better but still anxious and still getting panicked feelings; discussed meds and agrees to add seroquel prn no Si/hi/avh plan: add prn seroquel for anxiety Admit, CV, 15 minute checks Diagnostics as needed Collateral Contact Encourage milieu involvement Discharge planning Seroquel 75 mg bid Depakote 250 mg bid MVI one tab daily Klonopin 0.5 mg bid-If possible with no titration, will focus on mood stabilizing agents. Patient educated on: diagnosis and medication risk/benefits Informed Consent: understands Reason for continued inpatient stay Substantial Risk for: rapid decompensation Time Spent With Patient Time: Total time managing care of this patient today ____ minutes.
[2024-07-29] MEDS: Lipase/Prot/Amylase 24/76/120K 1 CAP CAPSULE.DR 3 CAP PO ×2 (12:40→17:33)
[2024-07-29] MEDS: hydrOXYzine HCL 25 MG TABLET PO (12:40)
[2024-07-29 12:41] VITALS: BP 124/80
[2024-07-29] MEDS: Docusate Sodium 100 MG CAPSULE PO (17:31)
[2024-07-29 19:52] VITALS: BP 105/73; PULSE 90; TEMP 36.3; O2SAT 92
[2024-07-29 20:16] VITALS: BP 102/73
[2024-07-29] MEDS: Famotidine 20 MG TABLET PO (20:16)
[2024-07-29] MEDS: Magnesium Oxide 400 MG TABLET PO (20:16)
[2024-07-29] MEDS: Mirtazapine 15 MG TABLET PO (20:16)
[2024-07-29] MEDS: Sennosides 8.6 MG TABLET 17.2 MG PO (20:21)
[2024-07-30] MEDS: Omeprazole 20 MG CAPSULE.DR PO (06:17)
[2024-07-30] MEDS: methADONE HCl 20 MG/2 ML ORAL.CONC 125 MG PO (07:42)
[2024-07-30 08:09] VITALS: BP 129/61
[2024-07-30] MEDS: Lipase/Prot/Amylase 24/76/120K 1 CAP CAPSULE.DR 3 CAP PO ×3 (08:11→17:12)
[2024-07-30] MEDS: Fluticasone/Vilanterol 200/25 BLST.W.DEV 1 PUFF INHALE (08:11)
[2024-07-30] MEDS: Divalproex Sodium 250 MG TABLET.DR PO ×2 (08:12→20:14)
[2024-07-30] MEDS: FLUoxetine HCl 20 MG CAPSULE 40 MG PO (08:12)
[2024-07-30] MEDS: cloNIDine HCL 0.1 MG TABLET PO ×2 (08:12→20:14)
[2024-07-30] MEDS: Ferrous Sulfate 324 MG TABLET.DR PO (08:12)
[2024-07-30] MEDS: Aspirin Enteric Coated 81 MG TABLET.DR PO (08:12)
[2024-07-30] MEDS: clonazePAM 0.5 MG TABLET PO ×2 (08:12→20:14)
[2024-07-30] MEDS: QUEtiapine Fumarate 25 MG TABLET 75 MG PO ×2 (08:12→20:14)
[2024-07-30] MEDS: Docusate Sodium 100 MG CAPSULE PO (08:14)
--- NOTE | 2024-07-30 12:55 | HO.PSYCHPN ---
Subjective Subjective Date of Service: 07/30/24 Reason For Visit: SI Interim History: Met with pt; discussed with team feels perfect with the extra serqouel added...he even feels that he may not have an attack. mood is better. Still lots of anxiety; mostly stay home due to it. Discussed meds and pt has been on Prozac 40mg for over a month; he agrees to increase to 60mg to reduce anxiety never AH. Mental Status Exam Mental Status Exam Patient Appearance: Appropriate Patient Orientation: Person, Place, Time and Situation Level of Consciousness: Alert Patient Behavior: Appropriate and Good Eye Contact Mood Description: Calm Affect Description: Calm Patient Cognition Impaired: No Ability to Follow Directions: Fair Speech Pattern: Spontaneous Speech Memory Description: Episodic Impaired Hallucinations: None Delusions: Not Present Thought Process: Intact and Rumination Thought Content: positive for Perseveration, positive for Suicidal Ideation (none) and positive for Homicidal Ideation (none) Judgement: Fair Diagnostics Vital Signs (24Hr): Vital Signs - 24 hr 07/29/24 19:52 07/29/24 20:16 07/30/24 08:09 Temperature 97.4 F Pulse Rate 90 Blood Pressure 105/73 102/73 129/61 Pulse Oximetry 92 Oxygen Delivery Method Room Air BMI result Body Mass Index 46.1 Labs 07/27/24 08:36 07/28/24 08:51 Imaging Radiology Impressions: ITS Impressions Chest X-Ray 07/27/24 10:43 IMPRESSION: Diffuse prominence of the background interstitial markings. No consolidative pneumonia. Prominent hilar markings bilaterally, of uncertain significance. Overall, findings appear similar chest radiograph 07/22/2024. Electronically signed by: Compa Wilder MD 07/27/2024 11:06 AM EDT Medications Medications Current Medications Acetaminophen (Acetaminophen 325 Mg Tablet) 650 mg PO Q6H PRN PRN Reason: Headache/Pain, Scale 1-10 Last Admin: 07/27/24 20:32 Dose: 650 mg Al Hydroxide/Mg Hydroxide (Magnesium Hydrox/Alum Hydrox 30 Ml Oral.Susp) 30 ml PO Q6H PRN PRN Reason: Heartburn/Nausea Albuterol Sulfate (Albuterol Sulfate 90 Mcg 8 Gm Inhaler) 2 puff INHALE RQ4H PRN PRN Reason: Wheezing Lipase/Protease/Amylase (Lipase/Prot/Amylase 24/76/120k 1 Cap Capsule.) 3 cap PO TIDWM [facility] Last Admin: 07/30/24 12:22 Dose: 3 cap Aspirin (Aspirin Enteric Coated 81 Mg Tablet.) 81 mg PO DAILY [facility] Last Admin: 07/30/24 08:12 Dose: 81 mg Clonazepam (Clonazepam 0.5 Mg Tablet) 0.5 mg PO BID [facility] Last Admin: 07/30/24 08:12 Dose: 0.5 mg Clonidine HCl (Clonidine Hcl 0.1 Mg Tablet) 0.1 mg PO BID [facility]; Protocol Last Admin: 07/30/24 08:12 Dose: 0.1 mg Clonidine HCl (Clonidine Hcl 0.1 Mg Tablet) 0.1 mg PO DAILY@1200 PRN; Protocol PRN Reason: anxiety Last Admin: 07/29/24 12:41 Dose: 0.1 mg Divalproex Sodium (Divalproex Sodium 250 Mg Tablet.) 250 mg PO BID [facility] Last Admin: 07/30/24 08:12 Dose: 250 mg Docusate Sodium (Docusate Sodium 100 Mg Capsule) 100 mg PO BID PRN PRN Reason: Constipation Last Admin: 07/30/24 08:14 Dose: 100 mg Famotidine (Famotidine 20 Mg Tablet) 20 mg PO BEDTIME [facility] Last Admin: 07/29/24 20:16 Dose: 20 mg Ferrous Sulfate (Ferrous Sulfate 324 Mg Tablet.) 324 mg PO Q48H [facility] Last Admin: 07/30/24 08:12 Dose: 324 mg Fluoxetine HCl (Fluoxetine Hcl 20 Mg Capsule) 40 mg PO DAILY [facility] Last Admin: 07/30/24 08:12 Dose: 40 mg Fluticasone/Vilanterol (Fluticasone/Vilanterol 200/25 Blst.W.Dev) 1 puff INHALE RDAILY [facility] Last Admin: 07/30/24 08:11 Dose: 1 puff Hydroxyzine HCl (Hydroxyzine Hcl 25 Mg Tablet) 25 mg PO Q6H PRN PRN Reason: mild anxiety Last Admin: 07/29/24 12:40 Dose: 25 mg Ibuprofen (Ibuprofen 400 Mg Tablet) 400 mg PO Q6H PRN PRN Reason: Fever/Pain Magnesium Hydroxide (Milk Of Magnesia 30 Ml Oral.Susp) 30 ml PO DAILY PRN PRN Reason: Constipation Magnesium Oxide (Magnesium Oxide 400 Mg Tablet) 400 mg PO BEDTIME [facility] Last Admin: 07/29/24 20:16 Dose: 400 mg Methadone HCl (Methadone Hcl 20 Mg/2 Ml Oral.Conc) 125 mg PO DAILY@0800 [facility] Last Admin: 07/30/24 07:42 Dose: 125 mg Mirtazapine (Mirtazapine 15 Mg Tablet) 15 mg PO BEDTIME [facility] Last Admin: 07/29/24 20:16 Dose: 15 mg Multivitamins/Vitamin C (Multivitamin Tablet) 1 tab PO DAILY [facility] Last Admin: 07/30/24 11:21 Dose: Not Given Nicotine (Nicotine 21 Mg Patch.Td24) 21 mg TRANSDERMA DAILY PRN PRN Reason: smoking cessation Nicotine Polacrilex (Nicotine Polacrilex 2 Mg Gum) 4 mg BUCCAL Q2H PRN PRN Reason: Nicotine Cravings Omeprazole (Omeprazole 20 Mg Capsule.Dr) 20 mg PO DAILY@0630 [facility] Last Admin: 07/30/24 06:17 Dose: 20 mg Polyethylene Glycol (Polyethylene Glycol 3350 17 Gm Powd.Pack) 17 gm PO DAILY PRN PRN Reason: Constipation Quetiapine Fumarate (Quetiapine Fumarate 25 Mg Tablet) 75 mg PO BID [facility] Last Admin: 07/30/24 08:12 Dose: 75 mg Quetiapine Fumarate (Quetiapine Fumarate 25 Mg Tablet) 25 mg PO Q4H PRN PRN Reason: mod to severe anxiety Senna (Sennosides 8.6 Mg Tablet) 17.2 mg PO BID PRN PRN Reason: constipation Last Admin: 07/29/24 20:21 Dose: 17.2 mg Trazodone HCl (Trazodone Hcl 50 Mg Tablet) 50 mg PO BEDTIME MRX1 PRN PRN Reason: Insomnia Last Admin: 07/28/24 01:18 Dose: 50 mg Allergies Allergies Allergy/AdvReac Type Severity Reaction Status Date / Time Penicillins [PENICILLINS] Allergy Unknown RASH Verified 07/27/24 07:52 Assessment & Plan Assessment & Plan (1) MDD (major depressive disorder), recurrent episode, moderate: Status: Acute Code(s): F33.1 - Major depressive disorder, recurrent, moderate (2) Opioid use disorder: Status: Acute Code(s): F11.90 - Opioid use, unspecified, uncomplicated (3) Anxiety: Status: Acute Code(s): F41.9 - Anxiety disorder, unspecified Plan hospital course: 07/29 pt reports overall better but still anxious and still getting panicked feelings; discussed meds and agrees to add seroquel prn no Si/hi/avh 07/30 Met with pt; discussed with team feels perfect with the extra serqouel added...he even feels that he may not have an attack. mood is better. Still lots of anxiety; mostly stay home due to it. Discussed meds and pt has been on Prozac 40mg for over a month; he agrees to increase to 60mg to reduce anxiety never AH. PLAN: -increase prozac to 60mg -add prn seroquel for anxiety Admit, CV, 15 minute checks Diagnostics as needed Collateral Contact Encourage milieu involvement Discharge planning Seroquel 75 mg bid Depakote 250 mg bid MVI one tab daily Klonopin 0.5 mg bid-If possible with no titration, will focus on mood stabilizing agents. Patient educated on: diagnosis and medication risk/benefits Informed Consent: understands Reason for continued inpatient stay Substantial Risk for: stable for discharge Time Spent With Patient Time: Total time managing care of this patient today ____ minutes.
[2024-07-30] MEDS: QUEtiapine Fumarate 25 MG TABLET PO ×2 (13:01→17:15)
--- NOTE | 2024-07-30 13:08 | PC.NURSE ---
3 day notice signed
[2024-07-30] MEDS: FLUoxetine HCl 20 MG CAPSULE PO (17:12)
[2024-07-30 20:00] VITALS: BP 127/72; PULSE 79; TEMP 36.4; O2SAT 99
[2024-07-30 20:14] VITALS: BP 124/74
[2024-07-30] MEDS: Magnesium Oxide 400 MG TABLET PO (20:14)
[2024-07-30] MEDS: Mirtazapine 15 MG TABLET PO (20:14)
[2024-07-30] MEDS: Famotidine 20 MG TABLET PO (20:14)
[2024-07-31] MEDS: hydrOXYzine HCL 25 MG TABLET PO ×2 (05:15→11:29)
[2024-07-31] MEDS: Omeprazole 20 MG CAPSULE.DR PO (05:15)
[2024-07-31] MEDS: QUEtiapine Fumarate 25 MG TABLET PO ×2 (05:15→11:29)
[2024-07-31 07:40] VITALS: BP 136/83; PULSE 87; TEMP 36.5; O2SAT 96
[2024-07-31] MEDS: methADONE HCl 20 MG/2 ML ORAL.CONC 125 MG PO (07:46)
[2024-07-31] MEDS: Fluticasone/Vilanterol 200/25 BLST.W.DEV 1 PUFF INHALE (08:13)
[2024-07-31] MEDS: FLUoxetine HCl 20 MG CAPSULE 40 MG PO (08:14)
[2024-07-31] MEDS: Lipase/Prot/Amylase 24/76/120K 1 CAP CAPSULE.DR 3 CAP PO (08:15)
[2024-07-31] MEDS: Multivitamin TABLET 1 TAB PO (08:15)
[2024-07-31] MEDS: Divalproex Sodium 250 MG TABLET.DR PO (08:15)
[2024-07-31] MEDS: clonazePAM 0.5 MG TABLET PO (08:15)
[2024-07-31] MEDS: cloNIDine HCL 0.1 MG TABLET PO (08:16)
[2024-07-31] MEDS: Aspirin Enteric Coated 81 MG TABLET.DR PO (08:16)
[2024-07-31] MEDS: QUEtiapine Fumarate 25 MG TABLET 75 MG PO (08:33)
--- NOTE | 2024-07-31 10:14 | P.PNPSI_ITS ---
Subjective Subjective Reason For Visit: SI Diagnostics Vital Signs (24Hr): Vital Signs - 24 hr 07/30/24 20:00 07/30/24 20:14 07/31/24 07:40 Temperature 97.6 F 97.7 F Pulse Rate 79 87 Blood Pressure 127/72 124/74 136/83 Pulse Oximetry 99 96 Oxygen Delivery Method Room Air Room Air BMI result Body Mass Index 46.1 Labs 07/27/24 08:36 07/28/24 08:51 Imaging Radiology Impressions: ITS Impressions Chest X-Ray 07/27/24 10:43 IMPRESSION: Diffuse prominence of the background interstitial markings. No consolidative pneumonia. Prominent hilar markings bilaterally, of uncertain significance. Overall, findings appear similar chest radiograph 07/22/2024. Electronically signed by: Compa Wilder MD 07/27/2024 11:06 AM EDT RP Medications Medications Current Medications Acetaminophen (Acetaminophen 325 Mg Tablet) 650 mg PO Q6H PRN PRN Reason: Headache/Pain, Scale 1-10 Last Admin: 07/27/24 20:32 Dose: 650 mg Al Hydroxide/Mg Hydroxide (Magnesium Hydrox/Alum Hydrox 30 Ml Oral.Susp) 30 ml PO Q6H PRN PRN Reason: Heartburn/Nausea Albuterol Sulfate (Albuterol Sulfate 90 Mcg 8 Gm Inhaler) 2 puff INHALE RQ4H PRN PRN Reason: Wheezing Lipase/Protease/Amylase (Lipase/Prot/Amylase 24/76/120k 1 Cap Capsule.) 3 cap PO TIDWM [facility] Last Admin: 07/31/24 08:15 Dose: 3 cap Aspirin (Aspirin Enteric Coated 81 Mg Tablet.) 81 mg PO DAILY [facility] Last Admin: 07/31/24 08:16 Dose: 81 mg Clonazepam (Clonazepam 0.5 Mg Tablet) 0.5 mg PO BID [facility] Last Admin: 07/31/24 08:15 Dose: 0.5 mg Clonidine HCl (Clonidine Hcl 0.1 Mg Tablet) 0.1 mg PO BID [facility]; Protocol Last Admin: 07/31/24 08:16 Dose: 0.1 mg Clonidine HCl (Clonidine Hcl 0.1 Mg Tablet) 0.1 mg PO DAILY@1200 PRN; Protocol PRN Reason: anxiety Last Admin: 07/29/24 12:41 Dose: 0.1 mg Divalproex Sodium (Divalproex Sodium 250 Mg Tablet.) 250 mg PO BID [facility] Last Admin: 07/31/24 08:15 Dose: 250 mg Docusate Sodium (Docusate Sodium 100 Mg Capsule) 100 mg PO BID PRN PRN Reason: Constipation Last Admin: 07/30/24 08:14 Dose: 100 mg Famotidine (Famotidine 20 Mg Tablet) 20 mg PO BEDTIME [facility] Last Admin: 07/30/24 20:14 Dose: 20 mg Ferrous Sulfate (Ferrous Sulfate 324 Mg Tablet.) 324 mg PO Q48H [facility] Last Admin: 07/30/24 08:12 Dose: 324 mg Fluoxetine HCl (Fluoxetine Hcl 20 Mg Capsule) 40 mg PO DAILY [facility] Last Admin: 07/31/24 08:14 Dose: 40 mg Fluticasone/Vilanterol (Fluticasone/Vilanterol 200/25 Blst.W.Dev) 1 puff INHALE RDAILY [facility] Last Admin: 07/31/24 08:13 Dose: 1 puff Hydroxyzine HCl (Hydroxyzine Hcl 25 Mg Tablet) 25 mg PO Q6H PRN PRN Reason: mild anxiety Last Admin: 07/31/24 05:15 Dose: 25 mg Ibuprofen (Ibuprofen 400 Mg Tablet) 400 mg PO Q6H PRN PRN Reason: Fever/Pain Magnesium Hydroxide (Milk Of Magnesia 30 Ml Oral.Susp) 30 ml PO DAILY PRN PRN Reason: Constipation Magnesium Oxide (Magnesium Oxide 400 Mg Tablet) 400 mg PO BEDTIME [facility] Last Admin: 07/30/24 20:14 Dose: 400 mg Methadone HCl (Methadone Hcl 20 Mg/2 Ml Oral.Conc) 125 mg PO DAILY@0800 [facility] Last Admin: 07/31/24 07:46 Dose: 125 mg Mirtazapine (Mirtazapine 15 Mg Tablet) 15 mg PO BEDTIME [facility] Last Admin: 07/30/24 20:14 Dose: 15 mg Multivitamins/Vitamin C (Multivitamin Tablet) 1 tab PO DAILY [facility] Last Admin: 07/31/24 08:15 Dose: 1 tab Nicotine (Nicotine 21 Mg Patch.Td24) 21 mg TRANSDERMA DAILY PRN PRN Reason: smoking cessation Nicotine Polacrilex (Nicotine Polacrilex 2 Mg Gum) 4 mg BUCCAL Q2H PRN PRN Reason: Nicotine Cravings Omeprazole (Omeprazole 20 Mg Capsule.) 20 mg PO DAILY@0630 [facility] Last Admin: 07/31/24 05:15 Dose: 20 mg Polyethylene Glycol (Polyethylene Glycol 3350 17 Gm Powd.Pack) 17 gm PO DAILY PRN PRN Reason: Constipation Quetiapine Fumarate (Quetiapine Fumarate 25 Mg Tablet) 75 mg PO BID [facility] Last Admin: 07/31/24 08:33 Dose: 75 mg Quetiapine Fumarate (Quetiapine Fumarate 25 Mg Tablet) 25 mg PO Q4H PRN PRN Reason: mod to severe anxiety Last Admin: 07/31/24 05:15 Dose: 25 mg Senna (Sennosides 8.6 Mg Tablet) 17.2 mg PO BID PRN PRN Reason: constipation Last Admin: 07/29/24 20:21 Dose: 17.2 mg Trazodone HCl (Trazodone Hcl 50 Mg Tablet) 50 mg PO BEDTIME MRX1 PRN PRN Reason: Insomnia Last Admin: 07/28/24 01:18 Dose: 50 mg Allergies Allergies Allergy/AdvReac Type Severity Reaction Status Date / Time Penicillins [PENICILLINS] Allergy Unknown RASH Verified 07/27/24 07:52 Assessment & Plan Assessment & Plan (1) MDD (major depressive disorder), recurrent episode, moderate: Status: Acute Code(s): F33.1 - Major depressive disorder, recurrent, moderate (2) Opioid use disorder: Status: Acute Code(s): F11.90 - Opioid use, unspecified, uncomplicated (3) Anxiety: Status: Acute Code(s): F41.9 - Anxiety disorder, unspecified Plan hospital course: 07/29 pt reports overall better but still anxious and still getting panicked feelings; discussed meds and agrees to add seroquel prn no Si/hi/avh 07/30 Met with pt; discussed with team feels perfect with the extra serqouel added...he even feels that he may not have an attack. mood is better. Still lots of anxiety; mostly stay home due to it. Discussed meds and pt has been on Prozac 40mg for over a month; he agrees to increase to 60mg to reduce anxiety never AH. PLAN: -increase prozac to 60mg -add prn seroquel for anxiety Admit, CV, 15 minute checks Diagnostics as needed Collateral Contact Encourage milieu involvement Discharge planning Seroquel 75 mg bid Depakote 250 mg bid MVI one tab daily Klonopin 0.5 mg bid-If possible with no titration, will focus on mood stabilizing agents. Time Spent With Patient Time: Total time managing care of this patient today ____ minutes.
--- NOTE | 2024-07-31 12:21 | PM.PSYDC ---
DS: Providers Provider Date of admission: 07/27/24 16:46 Primary care physician: Unknown Physician DS: Diagnosis Discharge Diagnosis (1) MDD (major depressive disorder), recurrent episode, moderate: Status: Acute (2) Opioid use disorder: Status: Acute (3) Anxiety: Status: Acute DS: Medications Discharge Medications Home Medications: Home Medications ?Medication ?Instructions ?Recorded ?Confirmed aspirin 81 mg tablet,delayed 81 mg PO DAILY 09/02/23 07/27/24 release mirtazapine 15 mg tablet 15 mg PO BEDTIME 09/02/23 07/27/24 acetaminophen 650 mg 650 mg PO Q4H PRN moderate pain 03/11/24 07/27/24 tablet,extended release methadone 10 mg/mL oral 125 mg PO DAILY 03/11/24 07/28/24 concentrate (Methadone Intensol) polyethylene glycol 3350 17 17 g PO DAILY PRN Constipation 03/11/24 07/27/24 gram/dose oral powder (Miralax) clonidine HCl 0.1 mg tablet 0.1 mg PO BID anxiety 07/22/24 07/27/24 ferrous sulfate 325 mg (65 mg 325 mg PO Q48H 07/22/24 07/27/24 iron) tablet,delayed release olanzapine 5 mg tablet 5 mg PO TID PRN agitation 07/22/24 07/27/24 sennosides 8.6 mg tablet (Natural 17.2 mg PO BID PRN constipation 07/22/24 07/27/24 Senna Laxative) clonidine HCl 0.1 mg tablet 0.1 mg PO DAILY@1200 PRN anxiety 07/27/24 07/27/24 docusate sodium 100 mg tablet 100 mg PO BID PRN Constipation 07/27/24 07/27/24 famotidine 20 mg tablet 20 mg PO BEDTIME 07/27/24 07/27/24 ibuprofen 400 mg tablet 400 mg PO Q6H PRN Fever/Pain 07/27/24 07/27/24 [id number] 2 cap PO TIDWM 07/27/24 07/27/24 36,000-114,000-180,000 unit capsule,delay rel (Creon) Previous Rx's ?Medication ?Instructions ?Recorded esomeprazole magnesium 40 mg 40 mg PO DAILY #30 caps 01/14/24 capsule,delayed release (Nexium) magnesium oxide 400 mg PO BEDTIME #30 caps 04/14/24 fluticasone furoate 200 1 inh inhalation DAILY #60 ea 05/10/24 mcg-vilanterol 25 mcg/dose inhalation powder (Breo Ellipta) fluoxetine 20 mg capsule 40 mg (2 x 20 mg) PO DAILY #0 caps 07/03/24 hydroxyzine HCl 25 mg tablet 25 mg PO TID PRN mild anxiety 30 07/03/24 days #90 tabs clonazepam 0.5 mg tablet 0.5 mg PO BID #14 tabs 07/31/24 divalproex 250 mg tablet,delayed 250 mg PO BID #14 tabs 07/31/24 release multivitamin (Daily-Rip tablet) 1 tab PO DAILY #30 tabs 07/31/24 quetiapine 25 mg tablet 25 mg PO Q4H PRN mod to severe 07/31/24 anxiety #14 tabs quetiapine 25 mg tablet 75 mg (3 x 25 mg) PO BID #42 tabs 07/31/24 Data Data Completed and Pending Completed studies during hospitalization [Text1]: 07/27/24 07/28/24 08:36 08:51 WBC 12.0 H RBC 4.65 Hgb 11.3 L Hct 36.4 L MCV 78.3 L MCH 24.3 L MCHC 31.0 RDW 16.0 Plt Count 292 MPV 8.7 L Immature Gran % (Auto) 1.2 H Neut % (Auto) 80.9 H Lymph % (Auto) 8.8 L Caroline % (Auto) 7.7 Eos % (Auto) 1.0 Baso % (Auto) 0.4 Lymph # (Auto) 1.1 L Caroline # (Auto) 0.9 Eos # (Auto) 0.1 Baso # (Auto) 0.1 Abs Immat Gran (auto) 0.15 H Absolute Neuts (auto) 9.7 H Absolute Nucleated RBC 0.000 Nucleated RBC % (auto) 0.0 Sodium 135 135 Potassium 4.1 4.3 Chloride 100 100 Carbon Dioxide 29 27 Anion Gap 10 L 12 BUN 11 13 Creatinine 0.76 0.77 Estim Creat Clear Calc 164.2 167.5 Estimated GFR > 60 > 60 Random Glucose 143 H 162 H Estimat Average Glucose 126 Hemoglobin A1c % 6.0 Calcium 9.0 9.4 Total Bilirubin 0.5 0.5 AST 27 28 ALT 20 26 Alkaline Phosphatase 118 H 131 H Troponin I High Sens < 2.7 Total Protein 7.2 7.9 Albumin 3.7 4.0 Triglycerides 83 Cholesterol 166 LDL Cholesterol, Calc 107 H HDL Cholesterol 43 TSH 0.89 Urine Color Yellow Urine Appearance Clear Urine pH >= 9.0 Ur Specific [place] 1.015 Urine Protein Negative Urine Glucose (UA) Negative Urine Ketones Negative Urine Blood Negative Urine Nitrite Negative Ur Leukocyte Esterase Negative Salicylates < 5.0 L Urine Opiates Screen Not Detected Ur Buprenorphine Scrn Not Detected Ur Oxycodone Screen Not Detected Urine Methadone Screen Positive H Urine Fentanyl Screen Not Detected Acetaminophen < 3 Ur Barbiturates Screen Not Detected Ur Phencyclidine Scrn Not Detected Ur Amphetamines Screen Not Detected U Benzodiazepines Scrn Not Detected Urine Cocaine Screen Not Detected U Marijuana (THC) Screen POSITIVE H Ethyl Alcohol < 10 Influenza Type A (PCR) NEGATIVE Influenza Type B (PCR) NEGATIVE RSV RNA Qual (PCR) NEGATIVE SARS-CoV-2 RNA (RT-PCR) NEGATIVE Imaging Diagnostic Imaging Impressions Chest X-Ray 07/27/24 10:43 IMPRESSION: Diffuse prominence of the background interstitial markings. No consolidative pneumonia. Prominent hilar markings bilaterally, of uncertain significance. Overall, findings appear similar chest radiograph 07/22/2024. Electronically signed by: Compa Wilder MD 07/27/2024 11:06 AM EDT DS: Summary Time Spent with Patient Time attestation: Total time managing care of this patient today ____ minutes. Discharge Plan Discharge Anticipated Discharge Date/Time: 07/31/24 12:00 Patient Disposition: Home, Self-Care Discharge Diagnosis: Recurrent Major Depression Anxiety Opiate Use Disorder Referrals: Therapist: Clifton Motta ([facility]) [Other] - 1 Week (You declined to have a follow-up appointment made; please follow up on your own after discharge ) Psych Prescriber: Curtis Cahvez ([facility]) [Other] - 1 Week (You declined to have a follow-up appointment made; please follow up on your own after discharge ) Physician,Unknown J [Primary Care Provider] - 1 Week Discharge Medications: New multivitamin [Daily-Rip] Tablet 1 tab PO DAILY Qty: 30 0RF quetiapine 25 mg Tablet 75 mg PO BID Qty: 42 4RF quetiapine 25 mg Tablet 25 mg PO Q4H PRN (Reason: mod to severe anxiety) Qty: 14 4RF divalproex 250 mg Tablet,Delayed Release (Dr/Ec) 250 mg PO BID Qty: 14 2RF clonazepam 0.5 mg Tablet 0.5 mg PO BID Qty: 14 4RF Continued fluticasone furoate-vilanterol [Breo Ellipta] 200-25 mcg/dose blister with device 1 inh inhalation DAILY Qty: 60 2RF acetaminophen 650 mg tablet extended release 650 mg PO Q4H PRN (Reason: moderate pain) polyethylene glycol 3350 [Miralax] 17 gram/dose powder 17 g PO DAILY PRN (Reason: Constipation) methadone [Methadone Intensol] 10 mg/mL Concentrate 125 mg PO DAILY hydroxyzine HCl 25 mg Tablet 25 mg PO TID PRN (Reason: mild anxiety) 30 Days Qty: 90 0RF fluoxetine 20 mg Capsule 40 mg PO DAILY Qty: 0 0RF clonidine HCl 0.1 mg tablet 0.1 mg PO DAILY@1200 PRN (Reason: anxiety) ibuprofen 400 mg Tablet 400 mg PO Q6H PRN (Reason: Fever/Pain) docusate sodium 100 mg Tablet 100 mg PO BID PRN (Reason: Constipation) famotidine 20 mg Tablet 20 mg PO BEDTIME Creon 36,000-114,000- 180,000 unit capsule,delayed release(DR/EC) 2 cap PO TIDWM Rx Instructions: administer with meals and/or snacks sennosides [Natural Senna Laxative] 8.6 mg tablet 17.2 mg PO BID PRN (Reason: constipation) olanzapine 5 mg tablet 5 mg PO TID PRN (Reason: agitation) clonidine HCl 0.1 mg tablet 0.1 mg PO BID ferrous sulfate 325 mg (65 mg iron) Tablet,Delayed Release (Dr/Ec) 325 mg PO Q48H aspirin 81 mg tablet,delayed release (DR/EC) 81 mg PO DAILY mirtazapine 15 mg tablet 15 mg PO BEDTIME esomeprazole magnesium [Nexium] 40 mg capsule,delayed release(DR/EC) 40 mg PO DAILY Qty: 30 5RF magnesium oxide 400 mg magnesium capsule 400 mg PO BEDTIME Qty: 30 2RF Discharge Orders: Discharge Order (Routine); Ordered 07/31/24 Ordered By: Winifred M [place] Diet: Advance to usual diet Activity on Discharge: As tolerated Stand Alone Forms: Patient Portal Discharge page, Community Support Print Language: Libyan Activity Restrictions/Additional Instructions: You need to follow-up with your sleep specialist. Care Plan Goals: Mood and Behavioral Stabilization Abstinence from Substances Health Concerns: Mood and Behavioral Stabilization Abstinence from Substances Plan of Treatment: You have asked to leave the hospital early and report you will schedule your own follow up appointments. Take medications as directed Assessment: Pt has insight and demonstrates good judgment in terms of wanting to pursue treatment. Pt has a safety plan that includes presenting to the closest ER or calling 911 if feeling unsafe. Patient Instructions: Anxiety (ED) Discharge Date/Time: 07/31/24 12:01
--- NOTE | 2024-08-02 09:56 | P.EN_ITS ---
Event Note Date of Service: 08/01/24 Event Note: Received a call from pt with medication questions. Klonopin Rx sent to [facility] and cannot be filled. Call to [facility] and they report [facility] had given pt an Rx of Lorazepam which he filled 07/26. As a result, Klonopin Rx was cancelled. Return call to pt to explain that since the Lorazepam was given, we could not add Klonopin to it. Pt asks if he can have his prescriber call tw to discuss our giving Klonopin, not Ativan during admission. Assured pt we would talk with his team, that they did not return our call during his stay but we would talk with them about this at his request. Time Spent With Patient Time: Total time managing care of this patient today ____ minutes.
== END 2024-07-31 12:01 | disposition home or self-care (01) | DRG 751 ==
LOC: HO.ED 13:12 → HO.PM5 16:59
PROVIDERS: Physician Assistant Medical; Admitting Provider Psychiatry & Neurology Psychiatry; Emergency Provider Emergency Medicine; Visit Provider Psychiatry & Neurology Psychiatry
DX: F33.1 Major depressive disorder, recurrent, moderate (principal); R45.851 Suicidal ideations; F41.9 Anxiety disorder, unspecified; F11.20 Opioid dependence, uncomplicated; Z20.822 Contact with and (suspected) exposure to COVID-19; Z79.51 Long term (current) use of inhaled steroids; Z87.891 Personal history of nicotine dependence; Z79.82 Long term (current) use of aspirin; Z79.899 Other long term (current) drug therapy
CPT/HCPCS: 0241U; 36415; 71046; 80053; 80061; 80143; 80179; 80307; 81003; 83036; 84443; 84484; 85025; 93005; 94660; 99285; S9485

== ENCOUNTER → 2024-07-27 09:17 | Outpatient (BNV) | payer MEDICAID, SELFPAY | PROVIDERS: Emergency Provider Emergency Medicine; Visit Provider Internal Medicine | DX: Z13.6 Encounter for screening for cardiovascular disorders (principal) | CPT/HCPCS: 93010 ==

== ENCOUNTER → 2024-07-27 10:43 | Outpatient (BNV) | payer MEDICAID, SELFPAY | PROVIDERS: Emergency Provider Emergency Medicine; Visit Provider Radiology Diagnostic Radiology | DX: R06.02 Shortness of breath (principal) | CPT/HCPCS: 71046 ==

== ENCOUNTER → 2024-07-27 16:46 | Outpatient (BNV) | payer OTHER, SELFPAY | PROVIDERS: Admitting Provider Psychiatry & Neurology Psychiatry; Emergency Provider Emergency Medicine; Visit Provider Clinical Nurse Specialist Psychiatric/Mental Health, Adult | DX: F33.1 Major depressive disorder, recurrent, moderate (principal); F11.90 Opioid use, unspecified, uncomplicated; F41.9 Anxiety disorder, unspecified | CPT/HCPCS: 90792; 99232 ==

== ENCOUNTER 2024-08-11 08:51 | Outpatient (REF) | payer MEDICAID, SELFPAY ==
--- NOTE | ~2024-08-11 | CT_ITS ---
CLINICAL HISTORY: Z87.01 - Personal history of pneumonia (recurrent) CT chest without contrast Comparison: CT/SC/SR - CT CHEST W IV CON - 06/15/24 17:36 EDT Findings: The heart size is normal. The visualized thyroid and mediastinum are unremarkable. There are tree-in-bud opacities throughout both lungs relatively sparing the right middle lobe. There are new peribronchial ground-glass opacities in the right upper lobe. Peribronchial ground-glass opacities previously noted in the left upper lobe have largely resolved. The visualized upper abdomen is unremarkable. The bones are intact. IMPRESSION: Bilateral tree-in-bud opacities with new peribronchial ground-glass opacities in the right upper lobe. Findings are compatible with acute upon chronic bronchiolitis. Left upper lobe ground-glass opacities noted on the prior exam have largely resolved. This document has been electronically signed by: Saul Rojas MD on 08/11/2024 12:55:35
--- OUTSIDE RECORDS SUMMARY | 2024-08-11 09:04 | XMS_ITS | Encounter Summary ---
Author Organization [employer] Address [address] [place] [address] [address] [place] [address] Care Team Providers Care Temperature Logging Operator Name Role Phone Neetu Bah Primary Care Provider Roma Bender Primary Care Provider [phone] Neetu Bah Unavailable [phone] Lesia Tran MD Primary Care Provider + Encounter Details Date Type Department Care Team (Late st Contact Info) Description 09/29/2022 Abstract [facility] ADULT DENTAL [address] [place] [address] Trenton Wilkerson DDS [address] [place] [address] Social History Tobacco Use Types Packs/Day Years [...] Care Team (Late st Contact Info) Description 08/17/2024 10:45 AM EDT Office Visit [facility] MEDICINE [address] [place] [address] Lesia Tran MD [address] [place] [address] 08/17/2024 11:30 AM EDT Nurse Only [facility] [address] [place] [address] 08/25/2024 8:00 AM EDT Office Visit [facility] AD[facility] DENT[facility] [address] [place] [address] Trenton Wilkerson DDS [address] [place] [address] 10/02/2024 1:00 PM EDT Office Visit [facility] OPTOMETRY [address] [place] [address] TarkaMariah, OD [address] [place] [address] documented as of this encounter Visit Diagnoses Not on filedocumented in this encounter Care Teams Temperature Logging Operator Relationship Specialty Start Date End Date Neetu Bah AGNP [address] [place] [phone] PCP - General Family Medicine 11/28/20 01/13/23 Roma Bender FNP [address] [place] [id number] PCP - General Family Medicine 01/14/23 12/06/23 Lesia Tran MD [address] [place] [id number] PCP - General Internal Medicine 12/07/23 Neetu Bah, NITIN [address] [place] [phone] Family Medicine 01/14/23 09/02/23 documented as of this encounter
--- OUTSIDE RECORDS SUMMARY | 2024-08-11 09:04 | XMS_ITS | Encounter Summary ---
Author Organization [employer] Address [address] [place] [address] [address] [place] [address] Care Team Providers Care Road Equipment Operator Name Role Phone Lesia Tran MD Primary Care Provider + Reason for Visit * Reason Onset Date Comments Med Refill 05/15/2024 Encounter Details Date Type Department Care Team (Late st Contact Info) Description 05/15/2024 Telephone [facility] [address] [place] [address] Lesia Tran MD [address] [place] [address] Med Refill Social History Tobacco Use Types [...] 9:47 AM EST Medication was sent to [facility] #[id number] on 05/01/24 with 1 refill. * Telephone Encounter - Kenisha Mtz - 05/15/2024 9:43 AM EST TC from pt requesting medication refill. Medications needing refill : hydrOXYzine pamoate (Vistaril) 25 MG capsule To be sent to: [facility]/pharmacy #[id number] - [address] documented in this encounter Plan of Treatment Upcoming Encounters Date Type Department Care Team (Late st Contact Info) Description 08/17/2024 10:45 AM EDT Office Visit [facility] [address] [place] [address] Lesia Tran MD [address] [place] [address] 08/17/2024 11:30 AM EDT Nurse Only [facility] [address] [place] [address] 08/25/2024 8:00 AM EDT Office Visit [facility] ADULT DENTAL [address] [place] [address] Trenton Wilkerson DDS [address] [place] [address] 10/02/2024 1:00 PM EDT Office Visit [facility] OPTOMETRY [address] [place] [address] Mariah Villaseñor, OD [address] [place] [address] documented as of this encounter Visit Diagnoses Not on filedocumented in this encounter Additional Health Concerns Assessment Noted Time PHQ-9 Depression Total Score: 21 024 2:23 PM EST documented as of this encounter Care Teams Road Equipment Operator Relationship Specialty Start Date End Date Lesia Tran MD [address] [place], [place] [phone] PCP - General Internal Medicine 12/07/23 documented as of this encounter
--- OUTSIDE RECORDS SUMMARY | 2024-08-11 09:04 | XMS_ITS | Clinical Summary ---
Author Organization [employer] Address [address] [place] [address] Care Team Providers Care Auto Clutch Specialist Name Role Phone Andrea Amor MD Primary Care Provider + Allergies Active [...] mg by mouth in the morning. Active Ventolin HFA 108 (90 Base) MCG/ACT inhaler Inhale 2 puffs every 4 (four) hours if needed for shortness of breath or wheezing. 06/21/19 25 Active Aspirin Low Dose 81 MG EC tablet Take 1 tablet by mouth Once per day. 05/12/19 25 Active Breo Ellipta 200-25 MCG/ACT aerosol powder Inhale 1 puff Once per day. 07/07/19 25 Active Magnesium Extra Strength 400 MG capsule Take 1 capsule by mouth at bedtime. 06/10/19 25 Active Creon 84396-177832 units capsule delayed-relea se particles capsule Take 2 capsules by mouth with breakfast, with lunch, and with evening meal. 05/29/19 25 Active GaviLAX 17 GM/SCOOP powder Take 17 g by mouth Once per day. 12/09/19 24 Active sucralfate (Carafate) 1 g tablet Take 1 tablet by mouth at bedtime. 12/22/19 24 Active Tirzepatide-W eight Management (Zepbound) 2.5 MG/0.5ML solution auto-injector Inject 0.5 mL (2.5 mg) under the skin 1 (one) time per week. 2 mL 1 07/14/19 25 Active ferrous sulfate 325 (65 Fe) MG EC tablet TAKE 1 TABLET BY MOUTH EVERY OTHER DAY SWALLOW WHOLE 45 tablet 07/26/19 25 Active hydrOXYzine pamoate (Vistaril) 50 MG capsule Take 1 capsule by mouth if needed in the morning and at bedtime for anxiety. 08/06/19 25 Active Multiple Vitamin (Daily-Rip Multivitamin) tablet Take 1 tablet by mouth Once per day. 08/01/19 25 Active mirtazapine (Remeron) 15 MG tabletIndicat ions:Anxiety, Severe episode of recurrent major depressive disorder, without psychotic features (CMS/HCC) Take 1 tablet (15 mg) by mouth at bedtime. 30 tablet 1 08/09/19 25 025 Active FLUoxetine (PROzac) 20 MG capsuleIndica tions:Anxiety ,Severe episode of recurrent major depressive disorder, without psychotic features (CMS/HCC) Take 3 capsules (60 mg) by mouth in the morning. 90 capsule 1 08/09/19 25 025 Active QUEtiapine (SEROquel) 50 MG tabletIndicat ions:Severe episode of recurrent major depressive disorder, without psychotic features (CMS/HCC),Gen eralized anxiety disorder with panic attacks Take 1.5 tablets (75 mg) by mouth 2 times daily. 90 tablet 08/09/19 25 025 Active divalproex (Depakote) 250 MG EC tabletIndicat ions:Severe episode of recurrent major depressive disorder, without psychotic features (CMS/HCC),Gen eralized anxiety disorder with panic attacks Take 1 tablet (250 mg) by mouth 2 times daily. 60 tablet 08/09/19 25 025 Active clonazePAM (KlonoPIN) 0.5 MG tabletIndicat ions:Anxiety Take 1 tablet (0.5 mg) by mouth if needed each day for anxiety for up to 28 days. 28 tablet 08/09/19 25 025 Active ferrous sulfate 325 (65 Fe) MG EC tablet TAKE 1 TABLET BY MOUTH EVERY OTHER DAY SWALLOW WHOLE 45 tablet 04/17/19 025 Discontinued mirtazapine (Remeron) 15 MG tabletIndicat ions:Anxiety, Severe episode of recurrent major depressive disorder, without psychotic features (CMS/HCC) Take 1 tablet (15 mg) by mouth at bedtime. 30 tablet 1 07/11/19 025 Discontinued(R eorder (will not trigger notification to Pharmacy)) FLUoxetine (PROzac) 40 MG capsuleIndica tions:Anxiety ,Severe episode of recurrent major depressive disorder, without psychotic features (CMS/HCC) Take 1 capsule (40 mg) by mouth in the morning. 30 capsule 1 07/11/19 025 Discontinued(R eorder (will not trigger notification to Pharmacy)) OLANZapine (ZyPREXA) 5 MG tabletIndicat ions:Severe episode of recurrent major depressive disorder, without psychotic features (CMS/HCC) Take 1 tablet (5 mg) by mouth at bedtime. 30 tablet 07/11/19 025 Discontinued(I neffective) cloNIDine (Catapres) 0.1 MG tabletIndicat ions:Anxiety Take 1 tablet (0.1 mg) by mouth if needed in the morning and at bedtime (For Anxiety). 60 tablet 07/11/19 025 Discontinued(I neffective) buPROPion XL (Wellbutrin XL) 150 MG 24 hr tablet Take 1 tablet by mouth in the morning. 10/20/19 24 025 Discontinued(T herapy completed) hydrOXYzine HCl (Atarax) 25 MG tablet Take 1 tablet by mouth if needed in the morning, at noon, and at bedtime for anxiety (mild). 07/04/19 025 Discontinued(M ed list cleanup (will not trigger notification to Pharmacy)) OLANZapine (ZyPREXA) 5 MG tablet Take 1 tablet by mouth if needed in the morning, at noon, and at bedtime (agitation). 025 Discontinued(I neffective) divalproex (Depakote) 250 MG EC tablet Take 1 tablet by mouth 2 times daily. 08/01/19 025 Discontinued(R eorder (will not trigger notification to Pharmacy)) QUEtiapine (SEROquel) 25 MG tablet Take 1 tablet by mouth every 4 (four) hours if needed. 08/06/19 025 Discontinued QUEtiapine (SEROquel) 50 MG tablet Take 1 tablet by mouth 2 times daily. 07/20/19 025 Discontinued clonazePAM (KlonoPIN) 0.5 MG tabletIndicat ions:Anxiety Take 1 tablet (0.5 mg) by mouth if needed in the morning and at bedtime for anxiety for up to 28 days. 56 tablet 08/09/19 025 Discontinued(R eorder (will not trigger notification to Pharmacy)) Active Problems Problem Noted Date Diagnosed Date IFG (impaired fasting glucose) 06/20/2024 Assessment & Plan (07/27/2024 2:59 PM EDT): >>ASSESSMENT AND PLAN FOR IFG (IMPAIRED FASTING GLUCOSE) WRITTEN ON 06/20/2024 1:13 PM BY PHILLIP IBARRA I gave him information regarding low calorie meals, advised to eat every 3-5 hours. Advised regarding weight reduction, will consider medications including Topamax or GLP1s. >>ASSESSMENT AND PLAN FOR HYPERGLYCEMIA WRITTEN ON 06/20/2024 1:13 PM BY PHILLIP IBARRA See IFG. History of substance use disorder 04/12/2024 Complete edentulism 04/12/2024 TYSON (obstructive sleep apnea) 02/11/2024 Overview (02/11/2024): Sleep study at [facility]: moderate TYSON with nocturnal hypoxemia, <88% 24.1 minutes, lowest 77%. Assessment & Plan (06/20/2024 1:12 PM EDT): Pt has not been able to use CPAP, will call sleep specialist to check next appointment. Advised regarding weight reduction, consider Zepbound. Consider Hypoglossal nerve stimulator implant. Fu with sleep specialist. Assessment & Plan (02/11/2024 3:58 PM EST): [facility] Mild persistent asthma 02/11/2024 Assessment & Plan (02/11/2024 4:00 PM EST): Doing well on Breo, fu by [facility] pulmonary Advised re weight [...] Plan (02/11/2024 4:01 PM EST): FU by [facility] GI, on Protonix, senna prn constipation Advised re weight reduction, may try Topamax after labs. Advised to avoid THC use Morbid obesity 10/18/2023 Overview (10/18/2023): Last Addressed Date: 10/26/2022 Assessment & Plan (07/27/2024 3:03 PM EDT): Discussed re weight reduction options including exercise, life style modifications, diet. Recommended to decrease soda and sugary beverage consumption, increase protein intake with meals (at least 1 portion of protein with each meal) to assist with satiety, increase dietary fiber Recommended at least 150 min/week of moderate intensity exercise. Will start on Zepbound low-dose and monitor closely due to history of chronic pancreatitis. He does not have history of any known endocrine tumor. Phentermine is contraindicated due to severe anxiety with panic attacks. Assessment & Plan (06/20/2024 1:12 PM EDT): Discussed re weight reduction options including exercise, life style modifications, diet. Recommended to decrease soda and sugary beverage consumption, increase protein intake with meals (at least 1 portion of protein with each meal) to assist with satiety, increase dietary fiber Recommended at least 150 min/week of moderate intensity exercise. Will hold referral to putaway driver until next appointment once anxiety is better [...] ID: Yaniv is a 37 y.o. White [place] choose not to disclose-identified cis- male (pronouns he/him/his) with services including [facility] Psychotherapy psychopharmacology. Self reported dx of Bipolar, [...] for 2.5 years, currently on methadone at [facility], 128mg with a plan on [...] intervention , [facility], and Patient to reach out to [facility] as needed Alcohol use disorder in remission 06/10/2023 Cocaine use disorder in remission 06/10/2023 Generalized anxiety disorder with panic attacks 06/10/2023 Overview (07/27/2024): >>OVERVIEW FOR ANXIETY WRITTEN ON 10/18/2023 9:42 AM BY LOYDA REED MA Last Addressed Date: 10/26/2022 Assessment & Plan (07/27/2024 3:06 PM EDT): He is currently with psychiatry, will continue fluoxetine, olanzapine and clonidine Patient feels safe at home and he is able to reach out for safety, his safe place is the ED, he will go there when he has SIs Advised to reach out to walk-in center or to his therapist Advised to continue methadone and cut down on vaping cannabis Advised to reach out to diving coach at the methadone program, avoid using any other recreational substance or alcohol Assessment & Plan (07/27/2024 2:58 PM EDT): >>ASSESSMENT AND PLAN FOR ANXIETY WRITTEN ON 02/11/2024 4:04 PM BY ANDREA AMOR MD Seen by provider at [facility], will bring meds at next appt. He feels safe at home and is able to reach out for safety. Assessment & Plan (06/20/2024 1:14 PM EDT): Recently started seeing psychiatry and medications, advised to fu closely with them next week. Advised to cut down on vaping cannabis. Pt feels safe at home, advised to reach out to therapist or diving coach (he will request one at methadone program). Advised against using recreational substances or alcohol. Pt will see therapist this afternoon. Routine health maintenance 05/29/2023 Assessment & Plan [...] PM EST): Doing well on Methadone at [facility], has take home bottles Advised to decrease use of THC Encounters * This document contains information received from the source organization and may not represent a complete record from that organization. Date Type Department Care Team Description 08/08/2024 Telephone [facility] [address] [place] [phone] Ava Timmons, HarlanD Medication Teaching 08/08/2024 Telephone [facility] [address] [place] [phone] Andrea Amor MD 08/01/2024 Patient Outreach [facility] [place] [address] Andrea Amor MD Transition Of Care (Tcm) (HDF scheduled and SDOH screening completed on 06/08/24) 08/01/[address] [address] Andrea Amor MD HDF follow up 08/01/2024 Travel 07/23/2024 Refill [facility] [place] [address] Andrea Amor MD 07/21/2024 Travel 07/20/2024 Telephone [facility] [place] [address] Andrea Amor MD Prior Authorization ( [place] Request: Zepbound) 07/18/[address] [phone] Andrea Amor MD 07/17/2024 Patient Outreach [address] [phone] Andrea Amor MD Care Coordination ([facility] telephone call outreach) 07/13/2024 10:45 AM EDT Office Visit [address] [address] Andrea Amor MD Morbid obesity (CMS/HCC) (Primary Dx); Generalized anxiety disorder with panic attacks; Anxiety; Dietary counseling; Exercise counseling 07/13/2024 Travel 07/12/[address] [phone] Andrea Amor MD Chart prep 07/11/2024 Travel 07/07/[address] [phone] Andrea Amor MD Appointment Request 07/04/2024 Travel 07/03/2024 Patient Outreach [address] [address] Andrea Amor MD Care Coordination ([facility] telephone call outreach) 06/29/2024 Patient Outreach [facility] [address] [place] [phone] Andrea Amor MD Transition Of Care (Tcm) (HDF scheduled.) 06/29/2024 Telephone [facility] ADULT DENTAL [address] [place] [phone] Trenton Wilkerson DDS rs appt/disconnected call 06/28/[address] [phone] Andrea Amor MD Care Management ([facility]- Initial assessment/LVM) 06/27/2024 Patient Outreach [address] [phone] Andrea Amor MD Care Coordination ([facility] telephone call outreach) 06/26/2024 Orders Only GENERIC EXTERNAL DATA DEPARTMENT Provider, Generic External Data 06/26/2024 Travel 06/23/2024 Travel 06/20/2024 11:30 AM EDT Office Visit [facility] [address] [place] [phone] Andrea Amor MD Generalized anxiety disorder with panic attacks (Primary Dx); IFG (impaired fasting glucose); Morbid obesity (CMS/HCC); TYSON (obstructive sleep apnea); Hyperglycemia 06/17/2024 Travel 06/16/2024 Travel 06/16/2024 Population Health Risk Score [facility] ([facility]) [address] [phone] Provider, Population Health Generic 06/16/2024 Telephone [facility] [address] [place] [phone] Andrea Amor MD Nurse Triage 06/15/[address] [address] Andrea Amor MD No Show 06/14/2024 Patient Outreach [facility] [address] [place] [phone] Andrea mAor MD Care Coordination ([facility] telephone call outreach) 06/12/[address] [phone] Andrea Amor MD Chart prep 06/08/2024 Travel 06/08/2024 Patient Outreach [address] [phone] Andrea Amor MD Pre-visit Planning (SDOH screening negative and tobacco screening positive) 06/05/[address] [phone] Andrea Amor MD Care Management ([facility]- chart review) 06/02/2024 10:00 AM EST Office Visit [facility] ADULT DENTAL [address] [place] [phone] Trenton Wilkerson DDS Complete edentulism, unspecified edentulism class (Primary Dx) 05/29/2024 Travel 05/24/2024 Telephone [facility] [address] [place] [phone] Andrea Amor MD Results 05/22/2024 Travel 05/19/2024 Telephone [facility] [address] [place] [address] Andrea Amor MD Results 05/15/2024 Orders Only GENERIC EXTERNAL DATA DEPARTMENT Provider, Generic External Data 05/15/2024 Telephone [facility] [address] [place] [address] Andrea Amor MD Med Refill from Last 3 Months Immunizations Name Administration [...] Description 08/17/2024 10:45 AM EDT Office Visit [facility] [address] [place] [address] Andrea Amor MD [address] [place] [address] 08/17/2024 11:30 AM EDT Nurse Only [facility] [address] [place] [address] 08/25/2024 8:00 AM EDT Office Visit [facility] ADULT DENT[facility] [address] [place] [address] Trenton Wilkerson, DDS [address] [place] [address] 10/02/2024 1:00 PM EDT Office Visit [facility] OPTOMETRY [address] [place], [place] [phone] Mariah Villaseñor, OD [address] [place] [address] Health Maintenance Due Date Last Done Comments [...] 06/08/2024 Diabetes: Hemoglobin A1C 06/20/2025 06/20/2024, 08/2023 Depression Screening 07/25/2025 07/25/2024, 07/26/19 25 Tobacco Screening 08/08/2025 08/08/2024 Dental X-Ray: Full Mouth 04/13/2027 025, 12/01/2023, [...] IGG, IGM Routine 05/15/2024 3:30 PM EST PANORAMIC RADIOGRAPHIC IMAGE Routine 04/12/2024 2:30 PM EST PERIODIC ORAL EVALUATION - ESTABLISHED PATIENT Routine 04/12/2024 2:30 PM EST LIPID PANEL, STANDARD Routine 06/08/2023 8:20 AM EST Class 3 severe obesity due to excess calories without serious comorbidity in adult, unspecified BMI ([facility]) INTRAORAL - COMPLETE SERIES OF RADIOGRAPHIC IMAGES Routine 02/20/2014 12:00 AM EST from Last 3 Months or Most Recently Relevant to Health Maintenance Results * SARS-CoV-2 RNA, Influenza A/B, and RSV RNA, Ql NAAT (06/26/2024 5:18 PM EDT) Influenza A PCR NEGATIVE Negative [facility] Influenza B PCR NEGATIVE Negative [facility] Resp Syncy Virus RNA Qual PCR NEGATIVE Negative [facility] SARS COV2 PCR NEGATIVE Negative [facility] Comment:All test results mus t be [...] use by authorized laboratories.Testing performed on the [employer] GeneXpert utilizingreal-time RT-PCR.All SARS CoV2 and positive influenza A/B results arereported to [facility]. 06/26/2024 5:18 PM EDT 06/26/2024 5:26 PM EDT us Generic External Data Provider LAB MICROBIOLOGY - GENERAL ORDERABLES Final Result [facility] [address] [place] [phone] * (ABNORMAL) Drug Monitoring, Panel 1, Screen, Urine (06/26/2024 5:18 PM EDT) Only the most recent of2 resultswithin the time period is included. Opiate Screen Urine Not Detected Not Detect [facility] Comment:Opiate cut-off is 30 0 ng/mL.Positive results are unconfirmed and should not be used fornon-medical purposes. Barbiturates, Urine Not Detected Not Detect [facility] Comment:Barbiturate cut-off is 200 ng/mL.Positive results are unconfirmed and should not be used fornon-medical purposes. Phencyclidine Screen Urine Not Detected Not Detect [facility] Comment:Phencyclidine cut-of f is 25 ng/mL.Positive results are unconfirmed and should not be used fornon-medical purposes. Amphetamine Screen Urine Not Detected Not Detect [facility] Comment:Amphetamine cut-off is 1000 ng/mL.Positive results are unconfirmed and should not be used fornon-medical purposes. Benzodiazepines Screen Urine Not Detected Not Detect [facility] Comment:Benzodiazepine cut-o ff is 200 ng/mL.Positive results are unconfirmed and should not be used fornon-medical purposes. Cocaine Screen Urine Not Detected Not Detect [facility] Comment:Cocaine cut-off is 3 00 ng/mL.Positive results are unconfirmed and should not be used fornon-medical purposes. Cannabinoid Screen Urine POSITIVE(A) Not Detect [facility] Comment:Cannabinoid cut-off is 50 ng/mL.Positive results are unconfirmed and should not be used fornon-medical purposes. Methadone Screen, Urine Positive(A) Not Detect ng/mL [facility] Comment:Methadone cut-off is 300 ng/mL.Positive results are unconfirmed and should not be used fornon-medical purposes. FENTANYL URINE Not Detected Not Detect [facility] Comment:Fentanyl cut-off is 1 ng/mL.Positive results are unconfirmed and should not be used fornon-medical purposes. Oxycodone Urine Screen Not Detected Not Detect ng/mL [facility] Comment:Oxycodone cut-off is 100 ng/mL.Positive results are unconfirmed and should not be used fornon-medical purposes. Buprenorphine Screen Not Detected Not Detect ng/mL [facility] Comment:Buprenorphine cut-of f is 5 ng/mL.Positive results are unconfirmed and should not be used fornon-medical purposes. 06/26/2024 5:18 PM EDT 06/26/2024 5:26 PM EDT Generic External Data Provider LAB URINE ORDERAB LES Final Result [facility] [address] [place] [phone] * Urinalysis w/reflex microscopic (06/26/2024 5:18 PM EDT) Color Urine Yellow [facility] Appearance Urine Clear [facility] PH 8.0 5.0 - 9.0 [facility] Glucose Urine UA Negative Negative mg/dL [facility] Urine Blood Negative Negative [facility] Specific [place] - Urine 1.025 1.005 - 1.025 [facility] Urine Protein Trace Neg-Trace mg/dL [facility] Urine Ketones Trace Negative mg/dL [facility] Nitrite Urine Negative Negative [facility] Leukocyte Esterase Urine Negative Negative [facility] 06/26/2024 5:18 PM EDT 06/26/2024 5:26 PM EDT Narrative [facility] - 06/26/2024 5:35 PM EDT [id number], Clean Catch us Generic External Data Provider LAB URINE ORDERAB LES Final Result Performing Organization Address [facility] Co de Phone Number [facility] [address] [place] [phone] * Ethanol (06/26/2024 5:08 PM EDT) ETHANOL (MG/DL) IN SER/PLAS <10 mg/dL [facility] Comment:Serum/plasma ethanol results are to be used formedical/treatment purposes only. 06/26/2024 5:08 PM EDT 06/26/2024 5:12 PM EDT us Generic External Data Provider LAB BLOOD ORDERAB LES Final Result Performing Organization Address [facility] Co de Phone Number [facility] [address] [place] [phone] * TSH with Reflex to Free T4 (06/26/2024 5:08 PM EDT) TSH reflex Free T4 0.83 0.32 - 4.0 uIU/mL [facility] 06/26/2024 5:08 PM EDT 06/26/2024 5:12 PM EDT us Generic External Data Provider LAB BLOOD ORDERAB LES Final Result Performing Organization Address [facility] Co de Phone Number [facility] [address] [place] [phone] * (ABNORMAL) CBC auto differential (06/26/2024 5:08 PM EDT) White Blood Count 11.6(H) 4.8 - 10.8 X10*3/uL [facility] Red Blood Count 4.83 4.60 - 5.80 X10*6/uL [facility] Hemoglobin 11.7(L) 14.0 - 18.0 g/dl [facility] Hematocrit 37.2(L) 42.0 - 52.0 % [facility] Mean Corpuscular Volume 77.0(L) 80.0 - 98.0 fL [facility] Mean Corpuscular Hemoglobin 24.2(L) 27.0 - 33.0 pg [facility] Mean Corpuscular HGB Conc 31.5 31.0 - 36.0 g/dl [facility] Red Cell Distribution Width 14.6 11.0 - 16.0 % [facility] Platelet Count 264 160 - 400 X10*3/uL [facility] Mean Platelet Volume 8.9(L) 9.4 - 12.4 fL [facility] Neutrophils Percent Auto 82.4(H) 45 - 73 % [facility] Imm Gran Pct Auto 0.5(H) 0.0 - 0.4 % [facility] Lymphocytes Percent Auto 10.7(L) 20 - 40 % [facility] Monocytes Percent Auto 5.5 2 - 11 % [facility] Eosinophils Percent Auto 0.6 0 - 4 % [facility] Basophils Percent Auto 0.3 0 - 2 % [facility] NRBC Pct Auto 0.0 0.0 - 0.2 /100WBC [facility] Neutrophils Absolute Auto 9.6(H) 2.0 - 8.3 x10*3/uL [facility] Imm Gran Abs Auto 0.06(H) 0.00 - 0.03 X10*3/uL [facility] Lymphocytes Absolute Auto 1.2 1.2 - 4.9 X10*3/uL [facility] Monocytes Absolute Auto 0.6 0.1 - 1.2 X10*3/uL [facility] Eosinophils Absolute Auto 0.1 0.0 - 0.4 X10*3/uL [facility] Basophils Absolute Auto 0.0 0.0 - 0.2 X10*3/uL [facility] NRBC Abs Auto 0.000 0.0 - 0.012 X10*3/uL [facility] 06/26/2024 5:08 PM EDT 06/26/2024 5:12 PM EDT Generic External Data Provider LAB BLOOD ORDERAB LES Final Result Performing Organization Address City/[facility]/ZIP Co de Phone Number [facility] [address] [place] [phone] * Magnesium (06/26/2024 5:08 PM EDT) [facility] Magnesium 1.9 1.6 - 2.6 mg/dL [facility] 06/26/2024 5:08 PM EDT 06/26/2024 5:12 PM EDT Generic External Data Provider LAB BLOOD ORDERAB LES Final Result Performing Organization Address [facility] Co de Phone Number [facility] [address] [place] [phone] * Lipase (06/26/2024 5:08 PM EDT) [facility] Lipase 9 8 - 78 U/L [facility] 06/26/2024 5:08 PM EDT 06/26/2024 5:12 PM EDT Generic External Data Provider LAB BLOOD ORDERAB LES Final Result Performing Organization Address [facility] Co de Phone Number [facility] [address] [place] [phone] * Creatine Kinase, Total (06/26/2024 5:08 PM EDT) Creatine Kinase Total 52 38 - 174 U/L [facility] 06/26/2024 5:08 PM EDT 06/26/2024 5:12 PM EDT us Generic External Data Provider LAB BLOOD ORDERAB LES Final Result [facility] [address] [place] [phone] * (ABNORMAL) Comprehensive Metabolic Panel (06/26/2024 5:08 PM EDT) Sodium 139 135 - 145 mmol/L [facility] Potassium 4.2 3.3 - 5.1 mmol/L [facility] Chloride 106 96 - 108 mmol/L [facility] Carbon Dioxide 27 22 - 29 mmol/L [facility] Anion Gap 10(L) 12 - 20 [facility] Urea Nitrogen (BUN) 10 9 - 16 mg/dL [facility] Creatinine, Serum 0.89 0.5 - 1.4 mg/dL [facility] Creatinine Clr Calc Pharmacy 126.3 [facility] Comment:eGFR (calculated fro m the MDRD study equation) and eCrCl(calculated from the Cockcroft-Gault equation) are based ondifferent parameters and may not yield comparable results.If eCrCl result is absurd, please check patient'sheight/weight. Estimated Glomerular Filt Rate >60 [facility] Comment:Chronic Kidney Disea se: Estimated GFR < 60 mL/min/1.00e1Klwwus Kidney Disease: Estimated GFR < 15 mL/min/1.73m2 Glucose 106 60 - 115 mg/dL [facility] Calcium 8.6 8.4 - 10.2 mg/dL [facility] Bilirubin, Total 0.3 0.0 - 1.0 mg/dL [facility] Aspartate Amino Transferase 19 5 - 37 U/L [facility] Alanine Aminotransferase 19 0 - 40 U/L [facility] Total Protein 7.1 6.5 - 8.0 g/dL [facility] Albumin Level 3.7 3.5 - 5.0 g/dL [facility] Alkaline Phosphatase 94 39 - 117 U/L [facility] 06/26/2024 5:08 PM EDT 06/26/2024 5:12 PM EDT Generic External Data Provider LAB BLOOD ORDERAB LES Final Result [facility] [address] [place] [address] [phone] * POCT HGB A1C (06/20/2024 12:05 PM EDT) Pathologist [facility] Hemoglobin A1C 6.0 4.0 - 6.0 % QC Media Lot # [id number] Lot# Expiration Date ,026 Blood 06/20/2024 12:0 5 PM EDT Andrea Amor MD POINT OF CARE TEST ENTER /EDIT ORDERABLES Final Result * POCT Glucose (06/20/2024 12:02 PM EDT) Pathologist [facility] Glucose Blood, POC 114 60 - 200 mg/dL QC Media Lot # [id number] Lot# Expiration Date 82,625 Blood Capillary blood specimen / Unknown 06/20/2024 12:02 PM EDT Andrea Amor MD POINT OF CARE TEST ENTER /EDIT ORDERABLES Final Result * (ABNORMAL) Immunoglobulin G Subclasses Panel (05/15/2024 3:30 PM EST) IgG Subclass 1 702 382 - 929 mg/dL [facility] IgG Subclass 2 304 241 - 700 mg/dL [facility] IgG Subclass 3 37 22 - 178 mg/dL [facility] IgG Subclass 4 92.2(A) 4 - 86 mg/dL [facility] Immunoglobulin G, Serum 1172 600 - 1640 mg/dL [facility] Comment:THIS TEST WAS PERFOR MED AT:[employer] [address] [id number] AMAYA MD 05/15/2024 3:30 PM EST 05/15/2024 3:30 PM EST Generic External Data Provider LAB BLOOD ORDERAB LES Final Result Performing Organization Address [facility] Phone Number [facility] [address] [place] [phone] * (ABNORMAL) Immunoglobulins, Quantitative, IgA, IgG, IgM (05/15/2024 3:30 PM EST) IMMUNOGLOBULIN G 1274 600 - 1640 mg/dL [facility] IMMUNOGLOBULIN A 542(A) 47 - 310 mg/dL [facility] Immunoglobulin M 277 50 - 300 mg/dL [facility] Comment:THIS TEST WAS PERFOR MED AT:[employer] [address] [id number] AMAYA MD 05/15/2024 3:30 PM EST 05/15/2024 3:30 PM EST Generic External Data Provider LAB BLOOD ORDERAB LES Final Result Performing Organization Address [facility] Number [facility] [address] [place] [phone] * (ABNORMAL) Lipid Panel, Standard (06/08/2023 8:20 AM EST) Triglycerides 236(H) <150 mg/dL [facility] Comment:Desirable Triglyceri de: less than 150 mg/dLBorderline High Triglyceride 150-199 mg/dLHigh Triglyceride: 200-499 mg/dLVery High Triglyceride: greater than or equal to 5OO mg/dL Cholesterol 137 <200 mg/dL [facility] Comment:Desirable Cholestero l: less than 200 mg/dLBorderline High Cholesterol: 200-239 mg/dLHigh Cholesterol: greater than 239 mg/dL LDL Cholesterol Calculated 57 <100 mg/dL [facility] Comment:Desirable LDL: less than 100 mg/dLNear Optimal/Above Optimal LDL: 110- 129 mg/dLBorderline High LDL: 130-159 mg/dLHigh LDL: 160-189 mg/dLVery High LDL: greater than or equal to 190 mg/dL HDL Cholesterol 33(L) >40 mg/dL [facility] Comment:Desirable HDL: great er than 40 mg/dL Note: This HDL assay may give artificially low results in patients with liver disease. Blood Venous blood specimen / Unknown 06/08/2023 8:20 AM EST 06/08/2023 11:33 AM EST Yesica Ibarra MD LAB BLOOD ORDERAB LES Final Result [facility] [address] [place] [phone] from Last 3 Months or Most Recently Relevant to Health Maintenance Insurance [facility] [employer] [facility] ADULT Care Teams Auto Clutch Specialist Relationship Specialty Start Date End Date Andrea Amor MD [address] [place] [phone] PCP - General Internal Medicine 12/07/23
--- OUTSIDE RECORDS SUMMARY | 2024-08-11 09:04 | XMS_ITS | Encounter Summary ---
Author Organization [employer] Address [address] [place] [address] Care Team Providers Care Pool Installer Name Role Phone Lesia Tran MD Primary Care Provider + Encounter Details Date Type Department Care Team ([facility] st Contact Info) Description 08/08/2024 Telephone [facility] MED[facility]INE [address] [place] [address] Lesia Tran MD [address] [place] [address] Social History Tobacco Use Types Packs/Day Years Used Date Smoking Tobacco: Former Cigarettes 0.3 0.5 Passive Smoke Exposure: Past Smokeless Tobacco: Former Alcohol Use Standard Drinks/Week Comments Defer 0 (1 standard drink = 0.6 oz pur e alcohol) Depression Answer Date Recorded Patient Health Questionnaire-9 Score 07/25/2024 Patient Health Questionnaire-9 Score 07/25/2024 Last PHQ-9: Questionnaire Data Not on [...] Telephone Encounter - Carlos Muñiz RN - 08/08/2024 9:52 AM EDT CM received incoming call from per documentation on appt detail notes. Spoke with patient andinformed him that he no longer qualifies for the care management program due to his insurance whichhe no longer has C3 he now has MH standard. Patient verbalized understanding and agreed to let PCP know if he switches back to MH C3 so that he can be enrolled in the care management program. documented in this encounter Plan of Treatment Upcoming Encounters Date Type Department Care Team (Late st Contact Info) Description 08/17/2024 10:45 AM EDT Office Visit [facility] MED[facility] [address] [place] [address] Lesia Tran MD [address] [place] [address] 08/17/2024 11:30 AM EDT Nurse Only [facility] [address] [place] [address] 08/25/2024 8:00 AM EDT Office Visit [facility] ADULT DENTAL [address] [place] [address] [phone] Trenton Wilkerson, DDS [address] [place] [address] 10/02/2024 1:00 PM EDT Office Visit [facility] OPTOMETRY [address] [place], [place] [phone] Mariah Villaseñor, OD [address] [place] [address] documented as of this encounter Visit Diagnoses Not on filedocumented in this encounter Additional Health Concerns Assessment Noted Time PHQ-9 Depression Total Score: 22 025 2:01 PM EDT documented as of this encounter Care Teams Pool Installer Relationship Specialty Start Date End Date Lesia Tran MD [address] [place] [address] PCP - General Internal Medicine 12/07/23 documented as of this encounter
--- OUTSIDE RECORDS SUMMARY | 2024-08-11 09:04 | XMS_ITS | Encounter Summary ---
Author Organization [employer] Address [address] [facility] 7t [place] [address] Care Team Providers Care Facilities Operator Name Role Phone Roma Bender Primary Care Provider [phone] Neetu Bah Unavailable Lesia Tran MD Primary Care Provider + Encounter Details Date Type Department Care Team (Late st Contact Info) Description 02/19/2023 Orders Only [facility] [address] [place] [address] Roma Bender FNP [address] [place] [address] Other acute gastritis, presence of bleeding unspecified [...] Description 08/17/2024 10:45 AM EDT Office Visit [facility] MEDICINE [address] [place] [phone] Lesia Tran MD [address] [place] [address] 08/17/2024 11:30 AM EDT Nurse Only [facility] [address] [place] [address] 08/25/2024 8:00 AM EDT Office Visit [facility] ADULT DENTAL [address] [place] [address] Trenton Wilkerson DDS [address] [place] [address] 10/02/2024 1:00 PM EDT Office Visit [facility] OPTOMETRY [address] [place] [address] Mariah Villaseñor, OD [address] [place] [address] documented as of this encounter Visit Diagnoses Diagnosis Other acute gastritis, presence of bleeding unspecified- Primary documented in this encounter Additional Health Concerns Assessment Noted Time PHQ-9 Depression Total Score: 11 023 3:14 PM EDT documented as of this encounter Care Teams Facilities Operator Relationship Specialty Start Date End Date Roma Bender FNP [address] [place] [address] PCP - General Family Medicine 01/14/23 12/06/23 Lesia Tran MD [address] [place] [address] PCP - General Internal Medicine 12/07/23 Neetu Bah AGNP [address] [place] [phone] Family Medicine 01/14/23 09/02/23 documented as of this encounter
--- OUTSIDE RECORDS SUMMARY | 2024-08-11 09:04 | XMS_ITS | Clinical Summary ---
Author Organization [facility] Address [address] [place] [address] Phone Care Team Providers Care Steaming Cabinet Tender Name Role Phone Az Terrell Primary Care Provider [phone] Immunizations Immunization Administration Dates Next Due DTP [...] age to complete this topic Care Teams Steaming Cabinet Tender Relationship Specialty Start Date End Date Az Terrell [address] [place] [phone] PCP - General 11/13/16
--- OUTSIDE RECORDS SUMMARY | 2024-08-11 09:04 | XMS_ITS | Encounter Summary ---
Author Organization [employer] Address [address] [place] [address] 7 [place] [address] Care Team Providers Care Distance Learning Unit Leader Name Role Phone Lesia Tran MD Primary Care Provider + Reason for Visit * Reason Onset Date Comments Medication Teaching 08/08/2024 Encounter Details Date Type Department Care Team (Late st Contact Info) Description 08/08/2024 Telephone [facility] MEDICINE [address] [place] [address] Ava Timmons, PharmD [address] [place] [address] Medication Teaching Social History Tobacco Use Types Packs/Day Years [...] Telephone Encounter - Renata Méndez RN - 08/08/2024 12:15 PM EDT Noted. TC placed to patient [phone] to advise patient to bring zepbound medication to upcomingHDF appointment on 08/17/24 for teaching. Patient verbalized understanding and reports he will bringthe medication for teaching. Patient to f/u PRN. documented in this encounter Plan of Treatment Upcoming Encounters Date Type Department Care Team (Late st Contact Info) Description 08/17/2024 10:45 AM EDT Office Visit [facility] MEDICINE [address] [place] [address] Lesia Tran MD [address] [place] [address] 08/17/2024 11:30 AM EDT Nurse Only [facility] [address] [place] [address] 08/25/2024 8:00 AM EDT Office Visit [facility] ADULT DENTAL [address] [place] [address] [phone] Trenton Wilkerson DDS [address] [place] [address] 10/02/2024 1:00 PM EDT Office Visit [facility] OPTOMETRY [address] [place], [place] [phone] Mariah Villaseñor, OD [address] [place] [address] documented as of this encounter Visit Diagnoses Not on filedocumented in this encounter Additional Health Concerns Assessment Noted Time PHQ-9 Depression Total Score: 22 025 2:01 PM EDT documented as of this encounter Care Teams Distance Learning Unit Leader Relationship Specialty Start Date End Date Lesia Tran MD [address] [place] [address] PCP - General Internal Medicine 12/07/23 documented as of this encounter
--- OUTSIDE RECORDS SUMMARY | 2024-08-11 09:04 | XMS_ITS | Encounter Summary ---
Author Organization [employer] Address [address] [place] [address] 7t [place] [address] Care Team Providers Care Trial Judge Name Role Phone Neetu Bah Primary Care Provider Roma Bender Primary Care Provider [phone] Neetu Bah Unavailable [phone] Lesia Tran MD Primary Care Provider + Reason for Visit * Reason Onset Date Comments New Patient 11/18/2022 Encounter Details Date Type Department Care Team (Late st Contact Info) Description 11/18/2022 Telephone [facility] MEDICINE [address] [place] [address] Koby Holland MD [address] [place], [place] [phone] New Patient Social History Tobacco Use Types [...] Miscellaneous Notes * Telephone Encounter - Lisa Lopes - 11/24/2022 12:44 PM EDT 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 Once done, to please call back to facility at [phone] documented in this encounter Plan of Treatment Upcoming Encounters Date Type Department Care Team (Late st Contact Info) Description 08/17/2024 10:45 AM EDT Office Visit [facility] MED[facility]INE [address] [place] [address] Lesia Tran MD [address] [place] [address] 08/17/2024 11:30 AM EDT Nurse Only [facility] MED[facility] [address] [place] [address] 08/25/2024 8:00 AM EDT Office Visit [facility] ADULT DENTAL [address] [place] [address] Trenton Wilkerson DDS [address] [place] [address] 10/02/2024 1:00 PM EDT Office Visit [facility] OPTOMETRY [address] [place] [address] Mariah Villaseñor OD [address] [place] [address] documented as of this encounter Visit Diagnoses Not on filedocumented in this encounter Care Teams Trial Judge Relationship Specialty Start Date End Date Neetu Bah AGNP [address] [place] [phone] PCP - General Family Medicine 11/28/20 01/13/23 Roma Bender FNP [address] [place] [address] PCP - General Family Medicine 01/14/23 12/06/23 Lesia Tran MD [address] [place] [address] PCP - General Internal Medicine 12/07/23 Neetu Bah AGNP [address] [place] [phone] Family Medicine 01/14/23 09/02/23 documented as of this encounter
--- OUTSIDE RECORDS SUMMARY | 2024-08-11 09:04 | XMS_ITS | Encounter Summary ---
Author Organization [employer] Address [address] [place] [address] 7t [place] [address] Care Team Providers Care Baseball Inspector Name Role Phone Lesia Tran MD Primary Care Provider + Reason for Visit * Reason Onset Date Comments Nurse Triage 06/16/2024 Encounter Details Date Type Department Care Team (Late st Contact Info) Description 06/16/2024 Telephone [facility] MEDICINE [address] [place] [address] Lesia Tran MD [address] [place] [address] Nurse Triage Social History Tobacco Use Types [...] appt from yesterday as he was in [facility] ED ( note requested) Patient with reported [...] is in agreement to reach out to [facility] and Crisis as needed. Has concerns for [...] had contact with Care Coordinators here at [facility] and is requesting additional help. Patient agrees to have [facility] reach out to him with worsening symptoms. Has previously seen Curtis Chavez PRERNA and message to [facility] sent. Disposition reviewed and [...] - 06/16/2024 10:29 AM EDT Please obtain [facility] ED note from visit on 06/15/24. Patient scheduled with PCP on Wednesday06/20/24. * Telephone Encounter - Kenisha Mtz - 06/16/2024 9:52 AM EDT Symptoms: Abdominal Pain - Male, Abdominal Swelling Outcome: Schedule an urgent appointment (within 4 hours) or talk to a nurse or provider soon Reason: Started within the past 3 days The caller accepted this outcome. [phone] documented in this encounter Plan of Treatment Upcoming Encounters Date Type Department Care Team (Late st Contact Info) Description 08/17/2024 10:45 AM EDT Office Visit [facility] MEDICINE [address] [place] [address] Lesia Tran MD [address] [place] [address] 08/17/2024 11:30 AM EDT Nurse Only [facility] MED[facility]INE [address] [place] [address] 08/25/2024 8:00 AM EDT Office Visit [facility] ADULT DENTAL [address] [place] [address] Trenton Wilkerson DDS [address] [place] [address] 10/02/2024 1:00 PM EDT Office Visit [facility] OPTOMETRY [address] [place] [address] Mariah Vilalseñor, OD [address] [place] [address] documented as of this encounter Visit Diagnoses Not on filedocumented in this encounter Additional Health Concerns Assessment Noted Time PHQ-9 Depression Total Score: 21 024 2:23 PM EST documented as of this encounter Care Teams Baseball Inspector Relationship Specialty Start Date End Date Lesia Tran MD [address] [place] [address] PCP - General Internal Medicine 12/07/23 documented as of this encounter
--- OUTSIDE RECORDS SUMMARY | 2024-08-11 09:04 | XMS_ITS | Encounter Summary ---
Author Organization [employer] Address [address] [place] [address] 7t [place] [address] Care Team Providers Care Log Inspector Name Role Phone Lesia Tran MD Primary Care Provider + Reason for Visit * Reason Onset Date Comments medication 02/02/2024 Encounter Details Date Type Department Care Team ([facility] st Contact Info) Description 02/02/2024 Telephone [facility] ADULT DENTAL [address] [place] [address] Trenton Wilkerson DDS [address] [place] [address] medication Social History Tobacco Use Types Packs/Day [...] is your housing situation today? I have amandoabbi das 02/02/[address] you [...] Description 08/17/2024 10:45 AM EDT Office Visit [facility] MEDICINE [address] [place] [address] Lesia Tran MD [address] [place] [address] 08/17/2024 11:30 AM EDT Nurse Only [facility] MED[facility] [address] [place] [address] 08/25/2024 8:00 AM EDT Office Visit [facility] ADULT DENTAL [address] [place] [address] Trenton Wilkerson DDS [address] [place] [address] 10/02/2024 1:00 PM EDT Office Visit [facility] OPTOMETRY [address] [place] [address] Mariah Villaseñor, OD [address] [place] [address] documented as of this encounter Visit Diagnoses Not on filedocumented in this encounter Additional Health Concerns Assessment Noted Time PHQ-9 Depression Total Score: 21 024 2:23 PM EST documented as of this encounter Care Teams Log Inspector Relationship Specialty Start Date End Date Lesia Tarn MD [address] [place] [address] PCP - General Internal Medicine 12/07/23 documented as of this encounter
--- OUTSIDE RECORDS SUMMARY | 2024-08-11 09:04 | XMS_ITS | Encounter Summary ---
Author Organization [employer] Address [address] [place] [address] 7[address] [place] [address] Care Team Providers Care Geography Head Name Role Phone Roma Bender Primary Care Provider [phone] Neetu Bah Unavailable [phone] Lesia Tran MD Primary Care Provider + Reason for Visit * Reason Onset Date Comments Medication Question 05/04/2023 Encounter Details Date Type Department Care Team (Late st Contact Info) Description 05/04/2023 Telephone [facility] MEDICINE [address] [place] [address] Roma Bender FNP [address] [place] [address] Medication Question Social History Tobacco Use Types [...] MG tablet prescribed by pcp at [facility] today 05/04/23, was prescribed for 1 time daily but it was supposed to be 2 times daily. Any questions please contact [phone]. documented in this encounter Plan of Treatment Upcoming Encounters Date Type Department Care Team (Late st Contact Info) Description 08/17/2024 10:45 AM EDT Office Visit [facility] MEDICINE [address] [place] [address] Lesia Tran MD [address] [place] [address] 08/17/2024 11:30 AM EDT Nurse Only [facility] MEDICINE [address] [place] [address] 08/25/2024 8:00 AM EDT Office Visit [facility] ADULT DENTAL [address] [place] [address] Trenton Wilkerson DDS [address] [place] [address] 10/02/2024 1:00 PM EDT Office Visit [facility] OPTOMETRY [address] [place], [place] [phone] Mariah Villaseñor, OD [address] [place] [address] documented as of this encounter Visit Diagnoses Not on filedocumented in this encounter Additional Health Concerns Assessment Noted Time PHQ-9 Depression Total Score: 11 023 3:14 PM EDT documented as of this encounter Care Teams Geography Head Relationship Specialty Start Date End Date Roma Bender FNP [address] [place], [place] [phone] PCP - General Family Medicine 01/14/23 12/06/23 Lesia Tran MD [address] [place], [place] [phone] PCP - General Internal Medicine 12/07/23 Neetu Bah AGNP [address] [place] [phone] Family Medicine 01/14/23 09/02/23 documented as of this encounter
--- OUTSIDE RECORDS SUMMARY | 2024-08-11 09:04 | XMS_ITS | Encounter Summary ---
Author Organization [employer] Address [address] [place] [address] 7t [place] [address] Care Team Providers Care Motor Express Clerk Name Role Phone Neetu Bah Primary Care Provider Roma Bender Primary Care Provider [phone] Neetu Bah Unavailable [phone] Lesia Tran MD Primary Care Provider + Encounter Details Date Type Department Care Team (Late st Contact Info) Description 09/28/2022 Abstract [facility] ADULT DENTAL [address] [place] [address] Trenton Wilkerson DDS [address] [place] [address] Social History Tobacco Use Types Packs/Day Years [...] Description 08/17/2024 10:45 AM EDT Office Visit [facility] [address] [place] [address] Lesia Tran MD [address] [place] [address] 08/17/2024 11:30 AM EDT Nurse Only [facility] [address] [place] [address] 08/25/2024 8:00 AM EDT Office Visit [facility] [address] [place] [address] Trenton Wilkerson DDS [address] [place] [address] 10/02/2024 1:00 PM EDT Office Visit [facility] OPT[facility] [address] [place] [address] TarkaMariah, OD [address] [place] [address] documented as of this encounter Visit Diagnoses Not on filedocumented in this encounter Care Teams Motor Express Clerk Relationship Specialty Start Date End Date Neetu Bah AGNP [address] [place] [phone] PCP - General Family Medicine 11/28/20 01/13/23 Roma Bender FNP [address] [place] [address] PCP - General Family Medicine 01/14/23 12/06/23 Lesia Tran MD [address] [place] [address] PCP - General Internal Medicine 12/07/23 Neetu Bah, NITIN [address] [place] [phone] Family Medicine 01/14/23 09/02/23 documented as of this encounter
--- OUTSIDE RECORDS SUMMARY | 2024-08-11 09:04 | XMS_ITS | Encounter Summary ---
Author Organization [employer] Address [address] [place] [address] 7t [place] [address] Care Team Providers Care Court Bailiff Or Sheriff Name Role Phone Lesia Tran MD Primary Care Provider + Reason for Visit * Reason Onset Date Comments rs appt/disconnected call 06/29/2024 Encounter Details Date Type Department Care Team (Late st Contact Info) Description 06/29/2024 Telephone [facility] ADULT DENTAL [address] [place] [address] Trenton Wilkerson DDS [address] [place] [address] rs appt/disconnected call Social History Tobacco Use [...] While I was on the line with assistant front end manager [facility] the patient disconnected the call.. The [...] Office Visit [facility] MED[facility] [address] [place] [address] Lesia Tran MD [address] [place] [address] 08/17/2024 11:30 AM EDT Nurse Only [facility] [address] [place] [phone] 08/25/2024 8:00 AM EDT Office Visit [facility] ADULT DENT[facility] [address] [place] [address] Trenton Wilkerson DDS [address] [place] [address] 10/02/2024 1:00 PM EDT Office Visit [facility] OPTOMETRY [address] [place], [place] [phone] Mariah Villaseñor, OD [address] [place] [address] documented as of this encounter Visit Diagnoses Not on filedocumented in this encounter Additional Health Concerns Assessment Noted Time PHQ-9 Depression Total Score: 21 06/09/ 024 2:23 PM EST documented as of this encounter Care Teams Court Bailiff Or Sheriff Relationship Specialty Start Date End Date Lesia Tran MD [address] [place] [address] PCP - General Internal Medicine 12/07/23 documented as of this encounter
--- OUTSIDE RECORDS SUMMARY | 2024-08-11 09:04 | XMS_ITS | Encounter Summary ---
Author Organization [employer] Address [address] [place] [address] 7[address] [place] [address] Care Team Providers Care Fly Frame Tender Name Role Phone Neetu Bah Primary Care Provider Roma Bender Primary Care Provider [phone] Neetu Bah Unavailable [phone] Lesia Tran MD Primary Care Provider + Encounter Details Date Type Department Care Team (Late st Contact Info) Description 09/29/2022 Abstract [facility] ADULT DENTAL [address] [place] [address] Trenton Wilkerson DDS [address] [place] [address] Social History Tobacco Use Types Packs/Day Years [...] 10:45 AM EDT Office Visit [facility] MED[facility] [address] [place] [address] Lesia Tran MD [address] [place] [address] 08/17/2024 11:30 AM EDT Nurse Only [facility] [address] [place] [address] 08/25/2024 8:00 AM EDT Office Visit [facility] ADULT DENTAL [address] [place] [address] Trenton Wilkerson DDS [address] [place] [address] 10/02/2024 1:00 PM EDT Office Visit [facility] OPTOMETRY [address] [place] [address] TarkaMariah, OD [address] [place] [address] documented as of this encounter Visit Diagnoses Not on filedocumented in this encounter Care Teams Fly Frame Tender Relationship Specialty Start Date End Date Neetu Bah AGNP [address] [place] [phone] PCP - General Family Medicine 11/28/20 01/13/23 Roma Bender FNP [address] [place] [address] PCP - General Family Medicine 01/14/23 12/06/23 Lesia Tran MD [address] [place] [address] PCP - General Internal Medicine 12/07/23 Neetu Bah, NITIN [address] [place] [phone] Family Medicine 01/14/23 09/02/23 documented as of this encounter
== END 2024-08-11 08:52 | disposition home or self-care (01) ==
LOC: HO.CT 08:51
PROVIDERS: Visit Provider Nurse Practitioner Family
DX: Z87.01 Personal history of pneumonia (recurrent) (principal)
CPT/HCPCS: 71250

== ENCOUNTER → 2024-08-11 08:52 | Outpatient (BNV) | payer MEDICAID, SELFPAY | PROVIDERS: Visit Provider Radiology Diagnostic Radiology | DX: J18.9 Pneumonia, unspecified organism (principal) | CPT/HCPCS: 71250 ==

== ENCOUNTER 2024-08-15 03:33 | Emergency (ER) | payer MEDICAID, SELFPAY ==
--- NOTE | 2024-08-15 | ECG_ITS ---
Test Reason : SOB Blood Pressure : */* mmHG Vent. Rate : 113 BPM Atrial Rate : 113 BPM P-R Int : 142 ms QRS Dur : 90 ms QT Int : 346 ms P-R-T Axes : 32 -4 37 degrees QTcB Int : 474 ms Sinus tachycardia Nonspecific T wave abnormality Abnormal ECG When compared with ECG of 27-Jul-2024 09:31, Vent. rate has increased by 39 bpm Referred By: Generic ED Physician Electronically Signed By: SARAH ZAMBRANO MD
--- NOTE | ~2024-08-15 | CT_ITS ---
CLINICAL HISTORY: headache CT head without contrast Comparison: None Findings: No intra-axial mass, midline shift, hydrocephalus, or acute hemorrhage. No significant atrophy-like change or white matter disease. Mild mucosal thickening right maxillary sinus. The orbits are within normal limits. No skull fracture. IMPRESSION: 1. No acute intracranial findings. This document has been electronically signed by: Maral Osman MD on 08/15/2024 05:14:45
--- NOTE | ~2024-08-15 | XR_ITS ---
CLINICAL HISTORY: sob 1 view chest x-ray Comparison: CR/NH/SR - XR CHEST 2V - 07/27/24 10:52 EDT Findings: There are ill-defined perihilar lung opacities. Most evident of the right lower lung. Low lung volumes. No effusion or pneumothorax. Normal size heart. No acute fracture. IMPRESSION: Ill-defined perihilar lung opacities. Consider infection or edema. Recommend follow-up. This document has been electronically signed by: Maral Osman MD on 08/15/2024 05:24:50
[2024-08-15 03:47] VITALS: BP 148/115; PULSE 125; RESP 20; TEMP 36.8; O2SAT 88; O2SAT 89; BMI 46.2
[2024-08-15 04:11] LABS: MANUAL DIFF FLAG NO
[2024-08-15 04:13] LABS: Basophils Percent Auto 0.3 % (0-2); Eosinophils Absolute Auto 0.2 X10*3/uL (0.0-0.4); Hematocrit 37.5 % (42.0-52.0); Hemoglobin 11.4 g/dl (14.0-18.0); Imm Gran Abs Auto 0.11 X10*3/uL (0.00-0.03); Imm Gran Pct Auto 0.7 % (0.0-0.4); Lymphocytes Absolute Auto 0.9 X10*3/uL (1.2-4.9); Lymphocytes Percent Auto 5.9 % (20-40); Mean Corpuscular HGB Conc 30.4 g/dl (31.0-36.0); Mean Corpuscular Hemoglobin 24.5 pg (27.0-33.0); Mean Corpuscular Volume 80.6 fL (80.0-98.0); Mean Platelet Volume 8.5 fL (9.4-12.4); Monocytes Absolute Auto 0.9 X10*3/uL (0.1-1.2); Monocytes Percent Auto 5.8 % (2-11); Neutrophils Absolute Auto 12.9 x10*3/uL (2.0-8.3); Neutrophils Percent Auto 86.3 % (45-73); Platelet Count 243 X10*3/uL (160-400); Red Blood Count 4.65 X10*6/uL (4.60-5.80); Red Cell Distribution Width 16.6 % (11.0-16.0)
[2024-08-15 04:14] LABS: Appearance Urine Cloudy; Color Urine Yellow; Glucose Urine UA Negative (Negative); Leukocyte Esterase Urine Negative (Negative); Nitrite Urine Negative (Negative); PH 8.5 (5.0-9.0); Specific Gravity - Urine 1.015 (1.005-1.025); Urine Blood Negative (Negative); Urine Ketones Negative (Negative); Urine Protein Negative (Neg-Trace)
[2024-08-15 04:15] VITALS: BP 161/114; PULSE 116; RESP 15; TEMP 37.7; O2SAT 93
[2024-08-15 04:19] LABS: Bacteria Urine None Seen (None Seen); Hyaline Casts Urine 0-2 /LPF (0-2); RBC Urine 0-2 /HPF (0-2); Squamous Epithelial Cell Urine 0-2 /HPF (0-2); WBC Urine 0-5 /HPF (0-5)
[2024-08-15 04:25] LABS: Amphetamine Screen Urine Not Detected (Not Detect); Barbiturates, Urine Not Detected (Not Detect); Benzodiazepines Screen Urine Not Detected (Not Detect); Buprenorphine Scr Not Detected (Not Detect); Cannabinoid Screen Urine POSITIVE (Not Detect); Cocaine Screen Urine Not Detected (Not Detect); Fentanyl, urine Not Detected (Not Detect); Methadone Screen, Urine Positive (Not Detect); Opiate Screen Urine Not Detected (Not Detect); Oxycodone Screen Urine Not Detected (Not Detect); Phencyclidine Screen Urine Not Detected (Not Detect)
--- NOTE | 2024-08-15 04:25 | ED_ITS ---
HPI - General Adult General Chief complaint: Dyspnea Stated complaint: N/ V Time Seen by Provider: 08/15/24 04:03 Source: patient and EMS Mode of arrival: EMS Limitations: no limitations History of Present Illness ED Provider: DR. Lancaster HPI narrative: 39-year-old male brought in by ambulance for multiple symptoms started earlier since yesterday. Patient been having difficulty breathing, coughing, nasal congestion, nausea, vomiting, headache, dizziness. Patient also feels depressed, no SI, no HI, no hallucination. Related Data Home Medications ?Medication ?Instructions ?Recorded ?Confirmed aspirin 81 mg tablet,delayed 81 mg PO DAILY 09/02/23 07/27/24 release mirtazapine 15 mg tablet 15 mg PO BEDTIME 09/02/23 07/27/24 acetaminophen 650 mg 650 mg PO Q4H PRN moderate pain 03/11/24 07/27/24 tablet,extended release methadone 10 mg/mL oral 125 mg PO DAILY 03/11/24 07/28/24 concentrate (Methadone Intensol) polyethylene glycol 3350 17 17 g PO DAILY PRN Constipation 03/11/24 07/27/24 gram/dose oral powder (Miralax) clonidine HCl 0.1 mg tablet 0.1 mg PO BID anxiety 07/22/24 07/27/24 ferrous sulfate 325 mg (65 mg 325 mg PO Q48H 07/22/24 07/27/24 iron) tablet,delayed release olanzapine 5 mg tablet 5 mg PO TID PRN agitation 07/22/24 07/27/24 sennosides 8.6 mg tablet (Natural 17.2 mg PO BID PRN constipation 07/22/24 07/27/24 Senna Laxative) clonidine HCl 0.1 mg tablet 0.1 mg PO DAILY@1200 PRN anxiety 07/27/24 07/27/24 docusate sodium 100 mg tablet 100 mg PO BID PRN Constipation 07/27/24 07/27/24 famotidine 20 mg tablet 20 mg PO BEDTIME 07/27/24 07/27/24 ibuprofen 400 mg tablet 400 mg PO Q6H PRN Fever/Pain 07/27/24 07/27/24 Previous Rx's ?Medication ?Instructions ?Recorded esomeprazole magnesium 40 mg 40 mg PO DAILY #30 caps 01/14/24 capsule,delayed release (Nexium) fluticasone furoate 200 1 inh inhalation DAILY #60 ea 05/10/24 mcg-vilanterol 25 mcg/dose inhalation powder (Breo Ellipta) fluoxetine 20 mg capsule 40 mg (2 x 20 mg) PO DAILY #0 caps 07/03/24 hydroxyzine HCl 25 mg tablet 25 mg PO TID PRN mild anxiety 30 07/03/24 days #90 tabs divalproex 250 mg tablet,delayed 250 mg PO BID #14 tabs 07/31/24 release multivitamin (Daily-Rip tablet) 1 tab PO DAILY #30 tabs 07/31/24 quetiapine 25 mg tablet 25 mg PO Q4H PRN mod to severe 07/31/24 anxiety #14 tabs quetiapine 25 mg tablet 75 mg (3 x 25 mg) PO BID #42 tabs 07/31/24 okvudd-[id number] 2 cap PO TID #100 caps 08/08/24 36,000-114,000-180,000 unit capsule,delay rel (Creon) magnesium oxide 400 mg PO BEDTIME #30 caps 08/08/24 Allergies Allergy/AdvReac Type Severity Reaction Status Date / Time Penicillins [PENICILLINS] Allergy Unknown RASH Verified 08/15/24 03:51 Review of Systems 2 Review of Systems: All other systems are reviewed and are negative Constitutional: Reports as per HPI and Reports no additional constitutional complaints Eyes: Reports as per HPI and Reports no additional eye complaints Reports system reviewed and no additional complaints, except as documented Cardiovascular: Reports as per HPI and Reports no additional cardiovascular complaints Respiratory: Reports as per HPI and Reports no additional respiratory complaints Gastrointestinal: Reports as per HPI and Reports no additional gastrointestinal complaints Genitourinary: Reports no additional female genitourinary complaints Musculoskeletal: Reports no additional musculoskeletal complaints Skin/Breast: Reports system reviewed and no additional complaints, except as docu Psychiatric: Reports no additional psychiatric complaints Endocrine: Reports no additional endocrine complaints Hematologic/Lymphatic: Reports no additional hematologic/lymphatic complaints Allergic/Immunologic: Reports no additional allergic/immunologic complaints Reports system reviewed and no additional complaints, except as documented and Reports Abnormal speech present [facility] Past Medical History Medical History Suicidal ideation Exocrine pancreatic insufficiency Polysubstance abuse No known health problems Social History Social History Household Members: Family Housing: Apartment Do you presently have visiting nurse or other home services: No Alcohol intake: former Patient Tobacco Use Status: Former Tobacco user Substance Use Type: Marijuana Advance Directives: Yes Advance Directives on File: Yes Advance Directives Date on File: 03/15/24 Do you have a plan to hurt others: No Plan service: No Sexual orientation: Straight/Heterosexual Physical Exam ED Vital Signs: Vital Signs - 24 hr 08/15/24 03:47 08/15/24 04:15 08/15/24 04:38 Temperature 98.2 F 99.9 F Pulse Rate 125 H 116 H 115 H Respiratory Rate 20 15 15 Blood Pressure 148/115 H 161/114 H 160/99 H Pulse Oximetry 89 L 93 93 Oxygen Delivery Method Nasal Cannula Nasal Cannula Nasal Cannula Oxygen Flow Rate 3 3 08/15/24 05:53 Temperature 98.5 F Pulse Rate 104 H Respiratory Rate 14 Blood Pressure 129/102 H Pulse Oximetry 93 Oxygen Delivery Method Nasal Cannula Oxygen Flow Rate 3 BMI result Body Mass Index 46.2 Vital signs have been reviewed and appear to be correct. Blood pressure elevated. Heart rate normal. Respiratory rate normal. Temperature normal. Oxygen saturation normal. Appearance: Alert. Oriented X3. No acute distress. Head: Normal external exam. Normocephalic. Atraumatic. No Huerta signs noted. No raccoon eyes noted Eyes: PERRLA. EOMI. Conjunctiva and sclera normal. Eyelids normal. ENT: TM's Normal. Pharynx normal. Uvula midline. Moist mucous membranes. No trismus noted. No drooling noted. No muffled voice noted. Neck: Normal inspection. Neck supple. FROM. No adenopathy. Thyroid Normal. No meningeal signs. No neck mass noted. CVS: Normal heart rate and rhythm. Heart sound normal. No murmurs noted. Pulses normal throughout. Respiratory: No respiratory distress. Painless inspiration. Breath sounds normal. No wheezes/rales/rhonchi noted. Chest nontender. No accessory muscle usage noted or decreased air movement noted. Abdomen: Soft and nontender. Bowel sounds normal in all 4 quadrants. No distention noted. No organomegaly noted. No visible injury noted. Back: No CVA tenderness. Full range of motion noted. Skin: Skin warm and dry. Normal skin color. Normal skin turgor. No rashes/lesions/lacerations noted. Extremities: No lower extremity edema. Extremities exhibit normal range of motion. Extremities nontender. Neuro: Oriented X 3. Cranial nerve exam: II-XII are grossly intact No motor deficit. No sensory deficit. Reflexes normal. Patient Orientation: Person, Place, Time and Situation, okay hygiene and grooming. Fair eye contact, attentive, no tics or tremors. Level of Consciousness: Awake, Appropriate and Alert Patient Behavior: Appropriate, Guarded, Cooperative and Anxious Mood Description: Constricted, Blunted and Apprehensive Affect Description: Constricted, Blunted and Apprehensive Patient Cognition Impaired: No Ability to Follow Directions: Excellent Speech Pattern: Clear, Appropriate and Spontaneous Speech, nonpressured, spontaneous with regular rate and rhythm, normal volume and prosody. No dysarthria. Memory Description: Intact, Immediate Intact and Short Term Intact Hallucinations: None Delusions: Not Present Thought Process: Intact Thought Content: positive for Intact, positive for Logical, denies Suicidal Ideation and denies Homicidal Ideation. Depressive Symptoms: Not present. Judgement and Insight: Limited but adequate. Course Reevaluation(s) Reevaluation #1: While in the ED patient's symptoms started to improve, headache is improving, patient is less anxious, no SI, no HI, improvement of blood pressure. Time: 05:02 Reevaluation #2: GCS of 15, normal neuro exam, head CT is unremarkable, improvement of blood pressure. Will discharge to follow-up with PCP. Time: 06:30 Medications Administered Discontinued Medications Generic Name Dose Route Start Last Admin Trade Name Freq PRN Reason Stop Dose Admin Al Hydroxide/Mg Hydroxide 30 ml 08/15/24 04:24 08/15/24 04:40 Magnesium Hydrox/Alum Hydrox 30 Ml Oral.Susp PO 08/15/24 04:25 30 ml ONCE ONE Administration Famotidine 20 mg 08/15/24 04:24 08/15/24 04:40 Famotidine/Pf 20 Mg/2 Ml Vial IVPUSH 08/15/24 04:25 20 mg ONCE ONE Administration Acetaminophen 1,000 mg in 100 mls @ 400 mls/hr 08/15/24 04:22 08/15/24 04:39 Ofirmev IV 08/15/24 04:36 400 mls/hr ONCE ONE Administration Sodium Chloride 1,000 mls @ 999 mls/hr 08/15/24 04:21 08/15/24 04:40 Ns IV 08/15/24 05:21 999 mls/hr .Q1H1M ONE Administration Ondansetron HCl 4 mg 08/15/24 04:22 08/15/24 04:40 Ondansetron Hcl 4 Mg/2 Ml Vial IVPUSH 08/15/24 04:23 4 mg ONCE ONE Administration Ondansetron HCl 4 mg 08/15/24 04:24 08/15/24 04:41 Ondansetron Hcl 4 Mg/2 Ml Vial IVPUSH 08/15/24 04:25 Not Given ONCE ONE Medical Decision Making Differential Diagnosis Differential Diagnoses: The differential diagnosis associated with the presentation includes (Hypertensive emergency hypertensive emergency intracranial bleed, anxiety, electrolyte derangement, severe anemia.) Admission/Observation Consideration of admission/observation: Escalation of care including admission/observation considered Lab Data MDM Lab Attestation statement: I reviewed the patient's lab results. 08/15/24 04:06 08/15/24 04:07 Labs: Lab Results 08/15/24 08/15/24 Range/Units 04:06 04:07 WBC 15.0 H (4.8-10.8) X10*3/uL RBC 4.65 (4.60-5.80) X10*6/uL Hgb 11.4 L (14.0-18.0) g/dl Hct 37.5 L (42.0-52.0) % MCV 80.6 (80.0-98.0) fL MCH 24.5 L (27.0-33.0) pg MCHC 30.4 L (31.0-36.0) g/dl RDW 16.6 H (11.0-16.0) % Plt Count 243 (160-400) X10*3/uL MPV 8.5 L (9.4-12.4) fL Immature Gran % (Auto) 0.7 H (0.0-0.4) % Neut % (Auto) 86.3 H (45-73) % Lymph % (Auto) 5.9 L (20-40) % [place] % (Auto) 5.8 (2-11) % Eos % (Auto) 1.0 (0-4) % Baso % (Auto) 0.3 (0-2) % Lymph # (Auto) 0.9 L (1.2-4.9) X10*3/uL [place] # (Auto) 0.9 (0.1-1.2) X10*3/uL Eos # (Auto) 0.2 (0.0-0.4) X10*3/uL Baso # (Auto) 0.0 (0.0-0.2) X10*3/uL Abs Immat Gran (auto) 0.11 H (0.00-0.03) X10*3/uL Absolute Neuts (auto) 12.9 H (2.0-8.3) x10*3/uL Absolute Nucleated RBC 0.000 (0.0-0.012) X10*3/uL Nucleated RBC % (auto) 0.0 (0.0-0.2) /100WBC Sodium 140 (135-145) mmol/L Potassium 4.3 (3.3-5.1) mmol/L Chloride 99 (96-108) mmol/L Carbon Dioxide 29 (22-29) mmol/L Anion Gap 16 (12-20) BUN 11 (9-16) mg/dL Creatinine 0.88 (0.5-1.4) mg/dL Estim Creat Clear Calc 151.4 Estimated GFR > 60 Random Glucose 154 H (60-115) mg/dL Calcium 8.6 D (8.4-10.2) mg/dL Magnesium 1.8 (1.6-2.6) mg/dL Total Bilirubin 0.3 (0.0-1.0) mg/dL AST 26 (5-37) U/L ALT 17 (0-40) U/L Alkaline Phosphatase 112 (39-117) U/L Troponin I High Sens < 2.7 (<3.5-35.0) ng/L Total Protein 7.2 (6.5-8.0) g/dL Albumin 3.6 (3.5-5.0) g/dL Lipase 10 (8-78) U/L Urine Color Yellow Urine Appearance Cloudy Urine pH 8.5 (5.0-9.0) Ur Specific [place] 1.015 (1.005-1.025) Urine Protein Negative (Neg-Trace) mg/dL Urine Glucose (UA) Negative (Negative) mg/dL Urine Ketones Negative (Negative) mg/dL Urine Blood Negative (Negative) Urine Nitrite Negative (Negative) Ur Leukocyte Esterase Negative (Negative) Urine RBC 0-2 (0-2) /HPF Urine WBC 0-5 (0-5) /HPF Ur Squamous Epith Cells 0-2 (0-2) /HPF Urine Bacteria None Seen (None Seen) Hyaline Casts 0-2 (0-2) /LPF Urine Opiates Screen Not Detected (Not Detect) Ur Buprenorphine Scrn Not Detected (Not Detect) ng/mL Ur Oxycodone Screen Not Detected (Not Detect) ng/mL Urine Methadone Screen Positive H (Not Detect) ng/mL Urine Fentanyl Screen Not Detected (Not Detect) Ur Barbiturates Screen Not Detected (Not Detect) Ur Phencyclidine Scrn Not Detected (Not Detect) Ur Amphetamines Screen Not Detected (Not Detect) U Benzodiazepines Scrn Not Detected (Not Detect) Urine Cocaine Screen Not Detected (Not Detect) U Marijuana (THC) Screen POSITIVE H (Not Detect) Ethyl Alcohol < 10 mg/dL Influenza Type A (PCR) NEGATIVE (Negative) Influenza Type B (PCR) NEGATIVE (Negative) RSV RNA Qual (PCR) NEGATIVE (Negative) SARS-CoV-2 RNA (RT-PCR) NEGATIVE (Negative) Independent Interpretation I performed an independent interpretation of an: Plain X-Ray (Chest: No acute intrathoracic pathology.) and CT Scan (Head: No acute intracranial pathology.) Radiology Impression Discussion of test interpretation with radiology: I have reviewed the radiologist's reading. Discharge Plan Discharge Clinical Impression: Anxiety, Headache Patient Disposition: Still a Patient Instructions: Generalized Anxiety Disorder (ED) Prescriptions: No Action fluticasone furoate-vilanterol [Breo Ellipta] 200-25 mcg/dose blister with device 1 inh inhalation DAILY Qty: 60 2RF Creon 36,000-114,000- 180,000 unit capsule,delayed release(DR/EC) 2 cap PO TID Qty: 100 2RF magnesium oxide 400 mg magnesium capsule 400 mg PO BEDTIME Qty: 30 2RF acetaminophen 650 mg tablet extended release 650 mg PO Q4H PRN (Reason: moderate pain) polyethylene glycol 3350 [Miralax] 17 gram/dose powder 17 g PO DAILY PRN (Reason: Constipation) methadone [Methadone Intensol] 10 mg/mL Concentrate 125 mg PO DAILY hydroxyzine HCl 25 mg Tablet 25 mg PO TID PRN (Reason: mild anxiety) 30 Days Qty: 90 0RF fluoxetine 20 mg Capsule 40 mg PO DAILY Qty: 0 0RF clonidine HCl 0.1 mg tablet 0.1 mg PO DAILY@1200 PRN (Reason: anxiety) ibuprofen 400 mg Tablet 400 mg PO Q6H PRN (Reason: Fever/Pain) docusate sodium 100 mg Tablet 100 mg PO BID PRN (Reason: Constipation) famotidine 20 mg Tablet 20 mg PO BEDTIME multivitamin [Daily-Rip] Tablet 1 tab PO DAILY Qty: 30 0RF quetiapine 25 mg Tablet 75 mg PO BID Qty: 42 4RF quetiapine 25 mg Tablet 25 mg PO Q4H PRN (Reason: mod to severe anxiety) Qty: 14 4RF divalproex 250 mg Tablet,Delayed Release (Dr/Ec) 250 mg PO BID Qty: 14 2RF sennosides [Natural Senna Laxative] 8.6 mg tablet 17.2 mg PO BID PRN (Reason: constipation) olanzapine 5 mg tablet 5 mg PO TID PRN (Reason: agitation) clonidine HCl 0.1 mg tablet 0.1 mg PO BID ferrous sulfate 325 mg (65 mg iron) Tablet,Delayed Release (Dr/Ec) 325 mg PO Q48H aspirin 81 mg tablet,delayed release (DR/EC) 81 mg PO DAILY mirtazapine 15 mg tablet 15 mg PO BEDTIME esomeprazole magnesium [Nexium] 40 mg capsule,delayed release(DR/EC) 40 mg PO DAILY Qty: 30 5RF Print Language: Ug[place]an
--- NOTE | 2024-08-15 04:29 | PC.NURSE ---
pt biba from home, a&ox4, respirations even and unlabored. pt reports waking up with sudden onset of sob, nausea, vomiting and headache. on arrival to ed, pt 88% on 4l nc. pt remains in ed on 4l nc sating 88-90. pt sinus tachy on tele 100-105bpm. pt throwing up at time of triage. 20g placed in left ac. pt also reporting thoughts of si, denies any plan but states i am really in my thoughts . security at bedside. foreign exchange clerk completed. sitter at bedside. aware
[2024-08-15 04:36] LABS: Alanine Aminotransferase 17 U/L (0-40); Albumin Level 3.6 g/dL (3.5-5.0); Alkaline Phosphatase 112 U/L (39-117); Anion Gap 16 (12-20); Aspartate Amino Transferase 26 U/L (5-37); Bilirubin Total 0.3 mg/dL (0.0-1.0); Blood Urea Nitrogen 11 mg/dL (9-16); Calcium 8.6 mg/dL (8.4-10.2); Carbon Dioxide 29 mmol/L (22-29); Chloride 99 mmol/L (96-108); Creatinine Clr Calc Pharmacy 151.4; Estimated Glomerular Filt Rate > 60; Ethanol < 10 mg/dL; Glucose Random 154 mg/dL (60-115); Lipase 10 U/L (8-78); Magnesium 1.8 mg/dL (1.6-2.6); Potassium 4.3 mmol/L (3.3-5.1); Sodium 140 mmol/L (135-145); Total Protein 7.2 g/dL (6.5-8.0)
[2024-08-15 04:36] LABS: Troponin-I High Sensitivity < 2.7 ng/L (<3.5-35.0)
[2024-08-15 04:38] VITALS: BP 160/99; PULSE 115; RESP 15; O2SAT 93
[2024-08-15] MEDS: Acetaminophen 1,000 MG/100 ML PIGGYBACK 400 MG IV (04:39)
[2024-08-15] MEDS: 0.9 % Sodium Chloride 1,000 ML 999 ML IV (04:40)
[2024-08-15] MEDS: Famotidine/PF 20 MG/2 ML VIAL IVPUSH (04:40)
[2024-08-15] MEDS: Magnesium Hydrox/Alum Hydrox 30 ML ORAL.SUSP PO (04:40)
[2024-08-15] MEDS: ondansetron HCL 4 MG/2 ML VIAL IVPUSH (04:40)
[2024-08-15 04:50] LABS: Influenza A PCR NEGATIVE (Negative); Influenza B PCR NEGATIVE (Negative); Resp Syncy Virus RNA Qual PCR NEGATIVE (Negative); SARS COV2 PCR INHOUSE NEGATIVE (Negative)
[2024-08-15 05:53] VITALS: BP 129/102; PULSE 104; RESP 14; TEMP 36.9; O2SAT 93
[2024-08-15 08:02] VITALS: BP 129/102; PULSE 98; RESP 14; TEMP 36.9; O2SAT 93
== END 2024-08-15 08:03 | disposition still patient (30) ==
PROVIDERS: Emergency Provider Emergency Medicine
DX: F41.9 Anxiety disorder, unspecified (principal); R51.9 Headache, unspecified; R05.9 Cough, unspecified; J45.909 Unspecified asthma, uncomplicated; Z03.818 Encounter for observation for suspected exposure to other biological agents ruled out; Z79.899 Other long term (current) drug therapy
CPT/HCPCS: 0241U; 36415; 70450; 71045; 80053; 80307; 81001; 83690; 83735; 84484; 85025; 93005; 96361; 96374; 96375; 99285; J0131; J1308; J2405

== ENCOUNTER → 2024-08-15 04:09 | Outpatient (BNV) | payer MEDICAID, SELFPAY | PROVIDERS: Emergency Provider Emergency Medicine; Visit Provider Internal Medicine Cardiovascular Disease | DX: R00.0 Tachycardia, unspecified (principal) | CPT/HCPCS: 93010 ==

== ENCOUNTER → 2024-08-15 04:25 | Outpatient (BNV) | payer MEDICAID, SELFPAY | PROVIDERS: Emergency Provider Emergency Medicine; Visit Provider Radiology Diagnostic Radiology | DX: R51.9 Headache, unspecified (principal); R91.8 Other nonspecific abnormal finding of lung field | CPT/HCPCS: 70450; 71045 ==

== ENCOUNTER 2024-08-15 08:50 | Inpatient (IN) | payer MEDICAID, SELFPAY ==
[2024-08-15] VITALS (8 sets, daily range): BP systolic 131–161; BP diastolic 76–112; PULSE 79–99; RESP 14–19; TEMP 36.6–36.7; O2SAT 90–95; BMI 46.2
--- NOTE | ~2024-08-15 | US_ITS ---
CLINICAL HISTORY: check liver- cirrhosis; also spleen? US abdomen limited Comparison: CT/SR - CT ABDOMEN PELVIS W IV CON - 05/30/24 22:47 EST Findings: Limited examination by bowel gas and patient's body habitus. The liver measures 16.4 cm and demonstrates increased parenchymal echogenicity. The spleen measures 14 cm and otherwise appears unremarkable. Main portal vein demonstrates hepatopetal flow. No ascites. IMPRESSION: 1. Increased hepatic echogenicity suggestive of steatosis. 2. Mild splenomegaly. This document has been electronically signed by: Madelaine Meraz MD on 08/16/2024 18:48:23
--- NOTE | ~2024-08-15 | CT_ITS ---
EXAMINATION: CT CHEST WITHOUT IV CONTRAST INDICATION: ? pneumonia COMPARISON: Comparison is made with the prior examination dated 08/11/2024. TECHNIQUE: Helical CT scan of the chest was performed without intravenous contrast. Coronal and sagittal reformatted images were generated and reviewed. This CT exam was performed with one or more of the following dose reduction techniques: automated exposure control, adjustment of the mA and/or kV according to patient size, use of iterative reconstruction technique. DLP: 424 mGy-cm CHEST: THYROID: The thyroid is unremarkable. LUNGS: There are confluent airspace opacities with air bronchograms in both lower lobes, consistent with pneumonia. Again seen are extensive tree-in-bud opacities throughout the lower lobes and in scattered portions of the upper lobes. MEDIASTINUM: There is no mediastinal lymphadenopathy. ASHLEY: Evaluation of the hilar regions is limited by lack of intravenous contrast material. CARDIOVASCULATURE: The heart is normal in size. There is no pericardial effusion. The thoracic aorta is normal in caliber. DEGREE OF CORONARY CALCIFICATION: none PLEURA: There is no pleural effusion. No pneumothorax. MAIN AIRWAYS: The mainstem bronchi and proximal branches are patent. AXILLA: There is no axillary lymphadenopathy. BONES AND SOFT TISSUES: Unremarkable UPPER ABDOMEN: The visualized portion of the liver demonstrates diffusely decreased attenuation, consistent with steatosis. The spleen is enlarged. The adrenals have an unremarkable unenhanced appearance. There is a small to moderate hiatal hernia. CT/CT chest wo IV con IMPRESSION: 1. Bilateral lower lobe pneumonia. Follow-up is recommended to document resolution. 2. Hepatic steatosis. Splenomegaly. 3. Small to moderate hiatal hernia. Electronically signed by: Az Trujillo MD 08/16/2024 03:40 PM EDT
--- NOTE | 2024-08-15 10:02 | ED_ITS ---
HPI - Psych General Chief Complaint: Psychiatric Symptoms Stated Complaint: CRISIS,SEEN RECENTLY FOR SAME PER EMS Time Seen by Provider: 08/15/24 09:08 Source: patient, EMS, RN notes reviewed and old records reviewed Mode of arrival: EMS History of Present Illness ED Provider: Jessica Tim PA-C HPI Narrative: 39-year-old male with a past medical history of opiate use disorder, MDD, polysubstance use, asthma, presenting to the ED via EMS complaining of suicidal ideations without plan and +HI. Also reports auditory and visual hallucinations. Patient was seen and treated in our ED early this morning. Denies illicit substance use. Does report some cough and pedal edema. Denies fever, chills, CP, SOB, abdominal pain Related Data Home Medications ?Medication ?Instructions ?Recorded ?Confirmed aspirin 81 mg tablet,delayed 81 mg PO DAILY 09/02/23 08/16/24 release mirtazapine 15 mg tablet 15 mg PO BEDTIME 09/02/23 08/16/24 methadone 10 mg/mL oral 125 mg PO DAILY 03/11/24 08/16/24 concentrate (Methadone Intensol) clonidine HCl 0.1 mg tablet 0.1 mg PO BID PRN anxiety 07/22/24 08/16/24 ferrous sulfate 325 mg (65 mg 325 mg PO Q OTHER DAY 07/22/24 08/16/24 iron) tablet,delayed release olanzapine 5 mg tablet 5 mg PO TID PRN agitation 07/22/24 08/16/24 sennosides 8.6 mg tablet (Natural 17.2 mg PO BEDTIME PRN constipation 07/22/24 08/16/24 Senna Laxative) famotidine 20 mg tablet 20 mg PO BEDTIME 07/27/24 08/16/24 albuterol sulfate 90 mcg/actuation 2 puff inhalation Q4-6H PRN 08/15/24 08/16/24 aerosol inhaler (Ventolin HFA) Shortness Of Breath Or Wheezing clonazepam 0.5 mg tablet 0.5 mg PO BID PRN Anxiety 08/15/24 08/16/24 fluticasone furoate 200 1 inh inhalation DAILY 08/15/24 08/16/24 mcg-vilanterol 25 mcg/dose inhalation powder (Breo Ellipta) fluoxetine 20 mg capsule 60 mg PO DAILY 08/16/24 08/16/24 vqsqos-viyayqsp-nhmecti 2 cap PO TIDWM 08/16/24 08/16/24 36,000-114,000-180,000 unit capsule,delay rel (Creon) Previous Rx's ?Medication ?Instructions ?Recorded esomeprazole magnesium 40 mg 40 mg PO DAILY #30 caps 01/14/24 capsule,delayed release (Nexium) divalproex 250 mg tablet,delayed 250 mg PO BID #14 tabs 07/31/24 release multivitamin (Daily-Rip tablet) 1 tab PO DAILY #30 tabs 07/31/24 quetiapine 25 mg tablet 75 mg (3 x 25 mg) PO BID #42 tabs 07/31/24 magnesium oxide 400 mg PO BEDTIME #30 caps 08/08/24 Allergies Allergy/AdvReac Type Severity Reaction Status Date / Time Penicillins [PENICILLINS] Allergy Unknown RASH Verified 08/15/24 09:34 Review of Systems 2 Review of Systems: Yes all other systems are reviewed and are negative Constitutional: Constitutional: Reports as per [facility] Past Medical History Attestation statement: The following information was validated with the patient. Source: old records reviewed Medical History Suicidal ideation Exocrine pancreatic insufficiency Polysubstance abuse No known health problems Social History Social History Household Members: Family Housing: Apartment Do you presently have visiting nurse or other home services: No Alcohol intake: former Patient Tobacco Use Status: Former Tobacco user Smoked in Last 30 Days: No Use of substances other than those prescribed or required for medical reasons: Yes Substance Use Type: Marijuana Substance Use Frequency: Chronic Longstanding Last Used Substance: Just Prior to Admission Advance Directives: Yes Advance Directives on File: Yes Advance Directives Date on File: 03/15/24 Do you have a plan to hurt others: No Plan service: No Sexual orientation: Straight/Heterosexual Physical Exam 2 Vital Signs: Vital Signs: Last Vital Signs Temp 97.7 F 08/16/24 13:52 Pulse 90 08/16/24 13:52 Resp 16 08/16/24 13:52 BP 127/76 08/16/24 13:52 Pulse Ox 93 08/16/24 13:52 O2 Del Method Room Air 08/16/24 13:52 O2 Flow Rate 2 08/16/24 11:11 BMI result Body Mass Index 46.2 Const: Other: pale. Sleeping, appears under the influence General: cooperative and no acute distress Orientation/consciousness: p atient oriented x3 Limitations: no limitations HEENT: Head: Yes normal to inspection and Yes atraumatic Ears: hearing grossly normal bilaterally General nose exam: Normal external nose present Face and sinus: Yes normal facial exam Eyes: General: appearance normal, both eyes and all related structures EOM: EOMs intact bilaterally Neck: Neck: Yes normal visual inspection and Yes no meningeal signs Resp: Effort & Inspection: normal respiratory effort and no respiratory distress Auscultation: clear to auscultation bilaterally, no crackles and no wheezes Cardio: Rate: regular rate Heart sounds: S1 normal heart sound present and S2 normal heart sound present Skin: Rashes: no rashes Wounds: no wounds Neuro: General: patient oriented x3, tone normal, no meningeal signs and CN's II-XI intact bilaterally Cranial nerves: Yes CN's II-XII intact bilaterally Gait exam (Neuro): Normal gait present Extrem: Other: 1+ bilateral LE pitting edema Psych: Thought content: Suicidality present, Homicidality present, Hallucination(s) present and Depressive thoughts present Course Course Course Narrative: - BNP 25 - tox screen positive for methadone and marijuana -1222-- patient medically cleared for CARE team eval. Physician observation initiated -1404-- patient was evaluated by CARE team and will be inpatient bed search -1900-- ED care transferred to [facility] pending inpatient bed search Reevaluation(s) Reevaluation #1: Time: 08:18 Date: 08/16/24 Provider: Fam Renteria MD Patient in physician observation for psychiatric evaluation.? He has been medically cleared by prior provider .No acute events reported overnight. No current complaints. VS stable.? Patient is in bed search status/pending CARE team evaluation. Will continue to monitor. 1:37 PM pt will be admited,this end the Ed Obs Reevaluation #2: Patient has now on oxygen requirement of about 3 L, I did a CT scan of the chest he has a bilateral pneumonia. Under ultrasound-guided I cannulated the left brachial vein with a long catheter obtain new blood work including blood culture lactic acid CBC and chemistry. At this point I think patient will need medical admission I spoke with the hospitalist will accept the patient. He has allergy to penicillin we will give him a Levaquin that we cover Gram-negative also Gram-positive Time: 16:01 Medications Administered Generic Name Dose Route Start Last Admin Trade Name Linda PRN Reason Stop Dose Admin Aspirin 81 mg 08/16/24 09:00 08/16/24 08:07 Aspirin Enteric Coated 81 Mg Tablet. PO 81 mg DAILY SHEELA Administration Clonazepam 0.5 mg 08/15/24 22:12 08/16/24 03:03 Clonazepam 0.5 Mg Tablet PO 0.5 mg BID PRN Administration Anxiety Divalproex Sodium 250 mg 08/15/24 22:15 08/16/24 08:07 Divalproex Sodium 250 Mg Tablet. PO 250 mg BID SHEELA Administration Doxycycline Monohydrate 100 mg 08/15/24 10:15 08/16/24 11:06 Doxycycline Monohydrate 100 Mg Capsule PO 08/22/24 10:14 100 mg Q12H SHEELA Administration Famotidine 20 mg 08/15/24 22:15 08/15/24 22:30 Famotidine 20 Mg Tablet PO 20 mg BEDTIME SHEELA Administration Fluoxetine HCl 40 mg 08/16/24 09:00 08/16/24 08:07 Fluoxetine Hcl 20 Mg Capsule PO 40 mg DAILY SHEELA Administration Fluticasone/Vilanterol 1 puff 08/16/24 08:00 08/16/24 08:28 Fluticasone/Vilanterol 200/25 Blst.W.Dev INHALE 1 puff RDAILY SHEELA Administration Hydroxyzine HCl 25 mg 08/15/24 22:12 08/16/24 08:07 Hydroxyzine Hcl 25 Mg Tablet PO 25 mg BID PRN Administration mild anxiety Magnesium Oxide 400 mg 08/15/24 22:15 08/15/24 22:30 Magnesium Oxide 400 Mg Tablet PO 400 mg BEDTIME SHEELA Administration Mirtazapine 15 mg 08/15/24 22:15 08/15/24 22:31 Mirtazapine 15 Mg Tablet PO 15 mg BEDTIME SHEELA Administration Multivitamins/Vitamin C 1 tab 08/16/24 09:00 08/16/24 08:08 Multivitamin Tablet PO 1 tab DAILY SHEELA Administration Omeprazole 20 mg 08/16/24 06:30 08/16/24 05:32 Omeprazole 20 Mg Capsule.Dr MARIE Not Given DAILY@0630 [facility] Quetiapine Fumarate 75 mg 08/15/24 22:15 08/16/24 08:07 Quetiapine Fumarate 25 Mg Tablet PO 75 mg BID SHEELA Administration Discontinued Medications Generic Name Dose Route Start Last Admin Trade Name Linda PRN Reason Stop Dose Admin Acetaminophen 650 mg 08/16/24 02:55 08/16/24 03:00 Acetaminophen 325 Mg Tablet PO 08/16/24 02:56 650 mg ONCE ONE Administration Clonidine HCl 0.1 mg 08/15/24 11:10 08/15/24 11:23 Clonidine Hcl 0.1 Mg Tablet PO 08/15/24 11:11 0.1 mg ONCE ONE Administration Protocol Furosemide 20 mg 08/15/24 10:08 08/15/24 10:44 Furosemide 20 Mg Tablet PO 08/15/24 10:09 20 mg ONCE ONE Administration Protocol Methadone HCl 125 mg 08/16/24 08:18 08/16/24 08:34 Methadone Hcl 20 Mg/2 Ml Oral.Conc PO 08/16/24 08:19 125 mg ONCE ONE Administration Medical Decision Making Medical Decision Making MDM Narrative: 39-year-old male with a past medical history of opiate use disorder, MDD, polysubstance use, asthma, presenting to the ED via EMS complaining of suicidal ideations without plan and +HI. Also reports auditory and visual hallucinations. on exam desats to 90% on RA while sleeping, appears under the influence, suspect on diagnosed TYSON. 1+ bilateral LE pitting edema. Concern for TYSON vs ?PNA or CHF. unlikely DVT/ PE or ACS. Patient had labs, head CT and CXR early this morning. CXR reading - Perihilar opacities, consider infection or edema. plan: BNP, MORRIS, empiric p.o. antibiotics for possible pneumonia, p.o. Lasix, CARE team consult Please refer to course for remaining clinical decision making, interpretation of labs/imaging results, and discussions with consultants and/or family members. Differential Diagnosis Differential Diagnoses: The differential diagnosis associated with the presentation includes As above Admission/Observation Consideration of admission/observation: Escalation of care including admission/observation considered Consult Healthcare Provider Management of the patient was discussed with: Behavioral Health Provider Lab Data MDM Lab Attestation statement: I reviewed the patient's lab results. 08/16/24 15:31 08/16/24 12:46 Labs: Lab Results 08/15/24 08/15/24 08/15/24 Range/Units 10:28 10:36 12:28 POC Glucose 94 (60-115) mg/dL B-Natriuretic Peptide 25 (<100) pg/mL Urine Opiates Screen Not Detected (Not Detect) Ur Buprenorphine Scrn Not Detected (Not Detect) ng/mL Ur Oxycodone Screen Not Detected (Not Detect) ng/mL Urine Methadone Screen Positive H (Not Detect) ng/mL Urine Fentanyl Screen Not Detected (Not Detect) Ur Barbiturates Screen Not Detected (Not Detect) Ur Phencyclidine Scrn Not Detected (Not Detect) Ur Amphetamines Screen Not Detected (Not Detect) U Benzodiazepines Scrn Not Detected (Not Detect) Urine Cocaine Screen Not Detected (Not Detect) U Marijuana (THC) Screen POSITIVE H (Not Detect) 08/16/24 Range/Units 11:05 POC Glucose 99 (60-115) mg/dL B-Natriuretic Peptide (<100) pg/mL Urine Opiates Screen (Not Detect) Ur Buprenorphine Scrn (Not Detect) ng/mL Ur Oxycodone Screen (Not Detect) ng/mL Urine Methadone Screen (Not Detect) ng/mL Urine Fentanyl Screen (Not Detect) Ur Barbiturates Screen (Not Detect) Ur Phencyclidine Scrn (Not Detect) Ur Amphetamines Screen (Not Detect) U Benzodiazepines Scrn (Not Detect) Urine Cocaine Screen (Not Detect) U Marijuana (THC) Screen (Not Detect) Radiology Impression Discussion of test interpretation with radiology: I have reviewed the radiologist's reading. Independent Historian Clinical information obtained from an independent historian. History obtained from or confirmed by: EMS External Record Review External record reviewed: Inpatient record, Office record, Outpatient record, Prior outpatient labs, Prior outpatient radiology, Primary care record and Outside ED record Tests considered The following testing was considered but not selected: As above Prescription Management I considered prescription management with: Antibiotic and Other Chronic Conditions Patient?s care impacted by: Other Social Determinants Patient?s care significantly limited by Social Determinants of Health including: Inadequate housing, Low income, Alcoholism and drug addiction in family, Problems related to primary support group, Unemployment, Problems related to employment and Other Social Determinant of Health Discharge Plan Discharge Clinical Impression: Suicidal ideation, Homicidal ideation, Hallucinations, Pneumonia Patient Disposition: Admitted As Inpatient Interventions: Nitro-Suicide Risk Severity Scale Last Done: 08/16/24 11:11
--- OUTSIDE RECORDS SUMMARY | 2024-08-15 10:18 | XMS_ITS | Encounter Summary ---
Author Organization [employer] Address [address] [place] [address] [address] [place] [address] Care Team Providers Care Telegraph Service Clerk Name Role Phone Lesia Tarn MD Primary Care Provider + Reason for Visit * Reason Onset Date Comments rs appt/disconnected call 06/29/2024 Encounter Details Date Type Department Care Team (Late st Contact Info) Description 06/29/2024 Telephone [facility] ADULT DENTAL [address] [place] [address] Trenton Wilkerson DDS [address] [place] [address] rs appt/disconnected call Social History Tobacco Use [...] While I was on the line with director of front office [facility] the patient disconnected the call.. [...] Description 08/17/2024 10:45 AM EDT Office Visit [facility] MEDICINE [address] [place] [address] Lesia Tran MD [address] [place] [address] 08/17/2024 11:30 AM EDT Nurse Only [facility] MEDICINE [address] [place] [address] 08/25/2024 8:00 AM EDT Office Visit [facility] ADULT DENTAL [address] [place] [address] Trenton Wilkerson DDS [address] [place] [address] 10/02/2024 1:00 PM EDT Office Visit [facility] OPTOMETRY [address] [place], [place] [phone] Mariah Villaseñor, OD [address] [place] [address] documented as of this encounter Visit Diagnoses Not on filedocumented in this encounter Additional Health Concerns Assessment Noted Time PHQ-9 Depression Total Score: 21 06/09/ 024 2:23 PM EST documented as of this encounter Care Teams Telegraph Service Clerk Relationship Specialty Start Date End Date Lesia Tran MD [address] [place] [address] PCP - General Internal Medicine 12/07/23 documented as of this encounter
--- OUTSIDE RECORDS SUMMARY | 2024-08-15 10:18 | XMS_ITS | Encounter Summary ---
Author Organization [employer] Address [address] [place] [address] [address] [place] [address] Care Team Providers Care Relocation Commissioner Name Role Phone Roma Bender Primary Care Provider [phone] Neetu Bah Unavailable [phone] Lesia Tran MD Primary Care Provider + Reason for Visit * Reason Onset Date Comments Medication Question 05/04/2023 Encounter Details Date Type Department Care Team (Late st Contact Info) Description 05/04/2023 Telephone [facility] MEDICINE [address] [place] [address] Roma Bender FNP [address] [place] [address] Medication Question Social History Tobacco Use Types [...] MG tablet prescribed by pcp at [facility] today 05/04/23, was prescribed for 1 time daily but it was supposed to be 2 times daily. Any questions please contact [phone]. documented in this encounter Plan of Treatment Upcoming Encounters Date Type Department Care Team (Late st Contact Info) Description 08/17/2024 10:45 AM EDT Office Visit [facility] MEDICINE [address] [place] [address] Lesia Tran MD [address] [place] [address] 08/17/2024 11:30 AM EDT Nurse Only [facility] MEDICINE [address] [place] [address] 08/25/2024 8:00 AM EDT Office Visit [facility] ADULT DENTAL [address] [place] [address] Trenton Wilkerson DDS [address] [place] [address] 10/02/2024 1:00 PM EDT Office Visit [facility] OPTOMETRY [address] [place], [place] [phone] Mariah Villaseñor, OD [address] [place] [address] documented as of this encounter Visit Diagnoses Not on filedocumented in this encounter Additional Health Concerns Assessment Noted Time PHQ-9 Depression Total Score: 11 023 3:14 PM EDT documented as of this encounter Care Teams Relocation Commissioner Relationship Specialty Start Date End Date Roma Bender FNP [address] [place], [place] [phone] PCP - General Family Medicine 01/14/23 12/06/23 Lesia Tran MD [address] [place], [place] [phone] PCP - General Internal Medicine 12/07/23 Neetu Bah AGNP [address] [place] [phone] Family Medicine 01/14/23 09/02/23 documented as of this encounter
--- OUTSIDE RECORDS SUMMARY | 2024-08-15 10:18 | XMS_ITS | Encounter Summary ---
Author Organization [employer] Address [address] [place] [address] [address] [place] [address] Care Team Providers Care Seismic Interpreter Name Role Phone Neetu Bah Primary Care Provider Roma Bender Primary Care Provider [phone] Neetu Bah Unavailable [phone] Lesia Tran MD Primary Care Provider + Encounter Details Date Type Department Care Team (Late st Contact Info) Description 09/28/2022 Abstract [facility] ADULT DENTAL [address] [place] [address] Trenton Wilkerson DDS [address] [place] [address] Social History Tobacco Use Types Packs/Day Years [...] Description 08/17/2024 10:45 AM EDT Office Visit [facility] MEDICINE [address] [place] [address] Lesia Tran MD [address] [place] [address] 08/17/2024 11:30 AM EDT Nurse Only [facility] MEDICINE [address] [place] [address] 08/25/2024 8:00 AM EDT Office Visit [facility] ADULT DENTAL [address] [place] [address] Trenton Wilkerson DDS [address] [place] [address] 10/02/2024 1:00 PM EDT Office Visit [facility] OPTOMETRY [address] [place] [address] TarkaMariah, OD [address] [place] [address] documented as of this encounter Visit Diagnoses Not on filedocumented in this encounter Care Teams Seismic Interpreter Relationship Specialty Start Date End Date Neetu Bah AGNP [address] [place] [phone] PCP - General Family Medicine 11/28/20 01/13/23 Roma Bender FNP [address] [place] [address] PCP - General Family Medicine 01/14/23 12/06/23 Lesia Tran MD [address] [place] [phone] PCP - General Internal Medicine 12/07/23 Neetu Bah, NITIN [address] [place] [phone] Family Medicine 01/14/23 09/02/23 documented as of this encounter
--- OUTSIDE RECORDS SUMMARY | 2024-08-15 10:18 | XMS_ITS | Encounter Summary ---
Author Organization [employer] Address [address] [place] [address] [address] [place] [address] Care Team Providers Care Senior Policy Associate Name Role Phone Lesia Tran MD Primary Care Provider + Reason for Visit * Reason Onset Date Comments medication 02/02/2024 Encounter Details Date Type Department Care Team ([facility] st Contact Info) Description 02/02/2024 Telephone [facility] ADULT DENTAL [address] [place] [address] Trenton Wilkerson DDS [address] [place] [address] medication Social History Tobacco Use Types Packs/Day [...] Description 08/17/2024 10:45 AM EDT Office Visit [facility] MEDICINE [address] [place] [address] Lesia Tran MD [address] [place] [address] 08/17/2024 11:30 AM EDT Nurse Only [facility] MEDICINE [address] [place] [address] 08/25/2024 8:00 AM EDT Office Visit [facility] ADULT DENTAL [address] [place] [address] Trenton Wilkerson DDS [address] [place] [address] 10/02/2024 1:00 PM EDT Office Visit [facility] OPTOMETRY [address] [place] [address] Mariah Villaseñor, OD [address] [place] [address] documented as of this encounter Visit Diagnoses Not on filedocumented in this encounter Additional Health Concerns Assessment Noted Time PHQ-9 Depression Total Score: 21 024 2:23 PM EST documented as of this encounter Care Teams Senior Policy Associate Relationship Specialty Start Date End Date Lesia Tran MD [address] [place] [address] PCP - General Internal Medicine 12/07/23 documented as of this encounter
--- OUTSIDE RECORDS SUMMARY | 2024-08-15 10:18 | XMS_ITS | Encounter Summary ---
Author Organization [employer] Address [address] [place] [address] [address] [place] [address] Care Team Providers Care Director Revenue Name Role Phone Lesia Tran MD Primary Care Provider + Reason for Visit * Reason Onset Date Comments Nurse Triage 06/16/2024 Encounter Details Date Type Department Care Team (Late st Contact Info) Description 06/16/2024 Telephone [facility] MEDICINE [address] [place] [address] Lesia Tran MD [address] [place] [address] Nurse Triage Social History Tobacco Use Types [...] appt from yesterday as he was in [facility] ED ( note requested) Patient with reported [...] is in agreement to reach out to [facility] and Crisis as needed. Has concerns [...] had contact with Care Coordinators here at [facility] and is requesting additional help. Patient agrees to have [facility] reach out to him with worsening symptoms. Has previously seen Curtis Chavez PRERNA and message to [facility] sent. Disposition reviewed and [...] - 06/16/2024 10:29 AM EDT Please obtain [facility] ED note from visit on 06/15/24. Patient scheduled with PCP on Wednesday06/20/24. * Telephone Encounter - Kenisha Mtz - 06/16/2024 9:52 AM EDT Symptoms: Abdominal Pain - Male, Abdominal Swelling Outcome: Schedule an urgent appointment (within 4 hours) or talk to a nurse or provider soon Reason: Started within the past 3 days The caller accepted this outcome. [phone] documented in this encounter Plan of Treatment Upcoming Encounters Date Type Department Care Team (Late st Contact Info) Description 08/17/2024 10:45 AM EDT Office Visit [facility] MEDICINE [address] [place] [address] Lesia Tran MD [address] [place] [address] 08/17/2024 11:30 AM EDT Nurse Only [facility] MEDICINE [address] [place] [address] 08/25/2024 8:00 AM EDT Office Visit [facility] ADULT DENTAL [address] [place] [address] Trenton Wilkerson DDS [address] [place] [address] 10/02/2024 1:00 PM EDT Office Visit [facility] OPTOMETRY [address] [place] [address] Mariah Villaseñor, OD [address] [place] [address] documented as of this encounter Visit Diagnoses Not on filedocumented in this encounter Additional Health Concerns Assessment Noted Time PHQ-9 Depression Total Score: 21 024 2:23 PM EST documented as of this encounter Care Teams Director Revenue Relationship Specialty Start Date End Date Lesia Tran MD [address] [place] [id number] PCP - General Internal Medicine 12/07/23 documented as of this encounter
--- OUTSIDE RECORDS SUMMARY | 2024-08-15 10:18 | XMS_ITS | Encounter Summary ---
Author Organization [employer] Address [address] [place] [address] 7t [place] [address] Care Team Providers Care Mold Design Engineer Name Role Phone Neetu Bah Primary Care Provider Roma Bender Primary Care Provider [phone] Neetu Bah Unavailable [phone] Lesia Tran MD Primary Care Provider + Encounter Details Date Type Department Care Team (Late st Contact Info) Description 09/29/2022 Abstract [facility] ADULT DENTAL [address] [place] [address] Trenton Wilkerson DDS [address] [place] [address] Social History Tobacco Use Types Packs/Day Years [...] Description 08/17/2024 10:45 AM EDT Office Visit [facility] MEDICINE [address] [place] [address] Lesia Tran MD [address] [place] [address] 08/17/2024 11:30 AM EDT Nurse Only [facility] MEDICINE [address] [place] [address] 08/25/2024 8:00 AM EDT Office Visit [facility] ADULT DENTAL [address] [place] [address] Trenton Wilkerson DDS [address] [place] [address] 10/02/2024 1:00 PM EDT Office Visit [facility] OPTOMETRY [address] [place] [address] TarkaMariah, OD [address] [place] [address] documented as of this encounter Visit Diagnoses Not on filedocumented in this encounter Care Teams Mold Design Engineer Relationship Specialty Start Date End Date Neetu Bah AGNP [address] [place] [phone] PCP - General Family Medicine 11/28/20 01/13/23 Roma Bender FNP [address] [place] [address] PCP - General Family Medicine 01/14/23 12/06/23 Lesia Tran MD [address] [place] [address] PCP - General Internal Medicine 12/07/23 Neetu Bah, NITIN [address] [place] [phone] Family Medicine 01/14/23 09/02/23 documented as of this encounter
--- OUTSIDE RECORDS SUMMARY | 2024-08-15 10:18 | XMS_ITS | Clinical Summary ---
Author Organization [facility] Address [address] [place] [address] Phone Care Team Providers Care Wood Cabinetmaker Name Role Phone Az Terrell Primary Care Provider [phone] Immunizations Immunization Administration Dates Next Due DTP [...] age to complete this topic Care Teams Wood Cabinetmaker Relationship Specialty Start Date End Date Az Terrell [address] [place] [phone] PCP - General 11/13/16
--- OUTSIDE RECORDS SUMMARY | 2024-08-15 10:18 | XMS_ITS | Clinical Summary ---
Author Organization [employer] Address [address] [facility] 7t [place] [address] Care Team Providers Care Electrical Engineering Professor Name Role Phone Andrea Amor MD Primary [...] mouth at bedtime. 06/10/19 25 Active Creon [id number] units capsule delayed-relea se particles capsule Take [...] apnea) 02/11/2024 Overview (02/11/2024): Sleep study at [facility]: moderate TYSON with nocturnal hypoxemia, <88% 24.1 minutes, lowest 77%. Assessment & Plan (06/20/2024 1:12 PM EDT): Pt has not been able to use CPAP, will call sleep specialist to check next appointment. Advised regarding weight reduction, consider Zepbound. Consider Hypoglossal nerve stimulator implant. Fu with sleep specialist. Assessment & Plan (02/11/2024 3:58 PM EST): [facility] Mild persistent asthma 02/11/2024 Assessment & Plan (02/11/2024 4:00 PM EST): Doing well on Breo, fu by [facility] pulmonary Advised re weight reduction. Declined Influenza [...] Plan (02/11/2024 4:01 PM EST): FU by [facility] GI, on Protonix, senna prn constipation Advised [...] moderate intensity exercise. Will hold referral to senior policy analyst until next appointment once anxiety is better [...] ID: Yaniv is a 37 y.o. White French choose not to disclose-identified cis- male (pronouns he/him/his) with services including [facility] Psychotherapy psychopharmacology. Self reported [...] intervention , [facility], and Patient to [...] vaping cannabis Advised to reach out to defensive line coach at the methadone program, avoid using any other recreational substance or alcohol Assessment & Plan (07/27/2024 2:58 PM EDT): >>ASSESSMENT AND PLAN FOR ANXIETY WRITTEN ON 02/11/2024 4:04 PM BY ANDREA AMOR MD Seen by provider at [facility], will bring meds at next appt. He feels safe at home and is able to reach out for safety. Assessment & Plan (06/20/2024 1:14 PM EDT): Recently started seeing psychiatry and medications, advised to fu closely with them next week. Advised to cut down on vaping cannabis. Pt feels safe at home, advised to reach out to therapist or defensive line coach (he will request one at methadone [...] Type Department Care Team Description 08/08/2024 Telephone [facility] MEDICINE [address] [place] [address] Ava Timmons, HarlanD Medication Teaching 08/08/2024 Telephone [facility] MED[facility]INE [address] [place] [phone] Andrea Amor MD 08/01/2024 Patient Outreach [facility] [place] [address] Andrea Amor MD Transition Of Care (Tcm) (HDF scheduled and SDOH screening completed on 06/08/24) 08/01/[address] [address] Andrea Amor MD HDF follow up 08/01/2024 Travel 07/23/2024 Refill [facility] [place] [address] Andrea Amor MD 07/21/2024 Travel 07/20/2024 Telephone [facility] [place] [address] Andrea Amor MD Prior Authorization ( [place] Request: Zepbound) 07/18/[address] [address] Andrea Amor MD 07/17/2024 Patient Outreach [address] [phone] Andrea Amor MD Care Coordination ([facility] telephone call outreach) 07/13/2024 10:45 AM EDT Office Visit [address] [address] Andrea Amor MD Morbid obesity (CMS/HCC) (Primary Dx); Generalized anxiety disorder with panic attacks; Anxiety; Dietary counseling; Exercise counseling 07/13/2024 Travel 07/12/[address] [address] Andrea Amor MD Chart prep 07/11/2024 Travel 07/07/[address] [address] Andrea Amor MD Appointment Request 07/04/2024 Travel 07/03/2024 Patient Outreach [address] [address] Andrea Amor MD Care Coordination ([facility] telephone call outreach) 06/29/2024 Patient Outreach [facility] [address] [place] [address] Andrea Amor MD Transition Of Care (Tcm) (HDF scheduled.) 06/29/2024 Telephone [facility] ADULT DENTAL [address] [place] [address] Trenton Wilkerson DDS rs appt/disconnected call 06/28/[address] [address] Andrea Amor MD Care Management ([facility]- Initial assessment/LVM) 06/27/2024 Patient Outreach [address] [address] Andrea Amor MD Care Coordination ([facility] telephone call outreach) 06/26/2024 Orders Only GENERIC EXTERNAL DATA DEPARTMENT Provider, Generic External Data 06/26/2024 Travel 06/23/2024 Travel 06/20/2024 11:30 AM EDT Office Visit [facility] MEDICINE [address] [place] [address] Andrea Amor MD Generalized anxiety disorder with panic attacks (Primary Dx); IFG (impaired fasting glucose); Morbid obesity (CMS/HCC); TYSON (obstructive sleep apnea); Hyperglycemia 06/17/2024 Travel 06/16/2024 Travel 06/16/2024 Population Health Risk Score Community [facility] (C3) [address] [phone] Provider, Population Health Generic 06/16/2024 Telephone [facility] MED[facility] [address] [place] [address] Andrea Amor MD Nurse Triage 06/15/[address] [address] Andrea Amor MD No Show 06/14/2024 Patient Outreach [facility] [address] [place] [phone] Andrea Amor MD Care Coordination ([facility] telephone call outreach) 06/12/[address] [address] Andrea Amor MD Chart prep 06/08/2024 Travel 06/08/2024 Patient Outreach [address] [address] Andrea Amor MD Pre-visit Planning (SDOH screening negative and tobacco screening positive) 06/05/[address] [address] Andrea Amor MD Care Management ([facility]- chart review) 06/02/2024 10:00 AM EST Office Visit [facility] ADULT DENTAL [address] [place] [phone] Trenton Wilkerson DDS Complete edentulism, unspecified edentulism class (Primary Dx) 05/29/2024 Travel 05/24/2024 Telephone [facility] MED[facility]INE [address] [place] [address] Andrea Amor MD Results 05/22/2024 Travel 05/19/2024 Telephone [facility] MEDICINE [address] [place] [address] Andrea Amor MD Results from Last 3 Months Immunizations [...] 08/17/2024 10:45 AM EDT Office Visit [facility] MEDICINE [address] [place], [place] [phone] Andrea Amor MD [address] [place], [place] [phone] 08/17/2024 11:30 AM EDT Nurse Only [facility] MED[facility]INE [address] [place] [address] 08/25/2024 8:00 AM EDT Office Visit [facility] ADULT DENTAL [address] [place] [address] Immanuel Wilkersons, DDS [address] [place] [address] 10/02/2024 1:00 PM EDT Office Visit [facility] OPTOMETRY [address] [place] [address] Mariah Villaseñor, OD [address] [place], [place] [phone] Health Maintenance Due Date Last Done Comments [...] Diabetes: Hemoglobin A1C 06/20/2025 06/20/2024, 03/0 08/2023 Depression Screening 07/25/2025 07/25/2024, 07/26/19 25 [...] URINE Routine 06/02/2024 9:29 AM EST Anxiety PANORAMIC RADIOGRAPHIC IMAGE Routine 04/12/2024 2:30 PM [...] PM EDT) Influenza A PCR NEGATIVE Negative [facility] Influenza B PCR NEGATIVE Negative [facility] Resp Syncy Virus RNA Qual PCR NEGATIVE Negative [facility] SARS COV2 PCR NEGATIVE Negative [facility] Comment:All test results mus t [...] use by authorized laboratories.Testing performed on the My Own CrownXpert utilizingreal-time RT-PCR.All SARS CoV2 and positive influenza A/B results arereported to [facility]. 06/26/2024 5:18 PM EDT 06/26/2024 5:26 PM EDT us Generic External Data Provider LAB MICROBIOLOGY - GENERAL ORDERABLES Final Result [facility] [address] [place] [address] [phone] * (ABNORMAL) Drug Monitoring, Panel 1, Screen, Urine (06/26/2024 5:18 PM EDT) Only the most recent of2 resultswithin the time period is included. Opiate Screen Urine Not Detected Not Detect [facility] Comment:Opiate cut-off is 30 0 ng/mL.Positive results are unconfirmed and should not be used fornon-medical purposes. Barbiturates, Urine Not Detected Not Detect [facility] Comment:Barbiturate cut-off is 200 ng/mL.Positive results are unconfirmed and should not be used fornon-medical purposes. Phencyclidine Screen Urine Not Detected Not Detect [facility] Comment:Phencyclidine cut-of f is 25 ng/mL.Positive results are unconfirmed and should not be used fornon-medical purposes. Amphetamine Screen Urine Not Detected Not Detect [facility] Comment:Amphetamine cut-off is 1000 ng/mL.Positive results are unconfirmed and should not be used fornon-medical purposes. Benzodiazepines Screen Urine Not Detected Not Detect [facility] Comment:Benzodiazepine cut-o ff is 200 ng/mL.Positive results are unconfirmed and should not be used fornon-medical purposes. Cocaine Screen Urine Not Detected Not Detect [facility] Comment:Cocaine cut-off is 3 00 ng/mL.Positive results are unconfirmed and should not be used fornon-medical purposes. Cannabinoid Screen Urine POSITIVE(A) Not Detect [facility] Comment:Cannabinoid cut-off is 50 ng/mL.Positive results are unconfirmed and should not be used fornon-medical purposes. Methadone Screen, Urine Positive(A) Not Detect ng/mL [facility] Comment:Methadone cut-off is 300 ng/mL.Positive results are unconfirmed and should not be used fornon-medical purposes. FENTANYL URINE Not Detected Not Detect [facility] Comment:Fentanyl cut-off is 1 ng/mL.Positive results are unconfirmed and should not be used fornon-medical purposes. Oxycodone Urine Screen Not Detected Not Detect ng/mL [facility] Comment:Oxycodone cut-off is 100 ng/mL.Positive results are unconfirmed and should not be used fornon-medical purposes. Buprenorphine Screen Not Detected Not Detect ng/mL [facility] Comment:Buprenorphine cut-of f is 5 ng/mL.Positive results are unconfirmed and should not be used fornon-medical purposes. 06/26/2024 5:18 PM EDT 06/26/2024 5:26 PM EDT us Generic External Data Provider LAB URINE ORDERAB LES Final Result [facility] [address] [place] [phone] * Urinalysis w/reflex microscopic (06/26/2024 5:18 PM EDT) Color Urine Yellow [facility] Appearance Urine Clear [facility] PH 8.0 5.0 - 9.0 [facility] Glucose Urine UA Negative Negative mg/dL [facility] Urine Blood Negative Negative [facility] Specific [place] - Urine 1.025 1.005 - 1.025 [facility] Urine Protein Trace Neg-Trace mg/dL [facility] Urine Ketones Trace Negative mg/dL [facility] Nitrite Urine Negative Negative [facility] Leukocyte Esterase Urine Negative Negative [facility] 06/26/2024 5:18 PM EDT 06/26/2024 5:26 PM EDT Narrative [facility] - 06/26/2024 5:35 PM EDT [id number], Clean Catch Generic External Data Provider LAB URINE ORDERAB LES Final Result Performing Organization Address [facility] Co de Phone Number [facility] [address] [place] [phone] * Ethanol (06/26/2024 5:08 PM EDT) ETHANOL (MG/DL) IN SER/PLAS <10 mg/dL [facility] Comment:Serum/plasma ethanol results are to be used formedical/treatment purposes only. 06/26/2024 5:08 PM EDT 06/26/2024 5:12 PM EDT Generic External Data Provider LAB BLOOD ORDERAB LES Final Result Performing Organization Address [facility] de Phone Number [facility] [address] [place] [phone] * TSH with Reflex to Free T4 (06/26/2024 5:08 PM EDT) Pathologist [facility] TSH reflex Free T4 0.83 0.32 - 4.0 uIU/mL [facility] 06/26/2024 5:08 PM EDT 06/26/2024 5:12 PM EDT Generic External Data Provider LAB BLOOD ORDERAB LES Final Result Performing Organization Address [facility] Co de Phone Number [facility] [address] [place] [phone] * (ABNORMAL) CBC auto differential (06/26/2024 5:08 PM EDT) Pathologist [facility] White Blood Count 11.6(H) 4.8 - 10.8 X10*3/uL [facility] Red Blood Count 4.83 4.60 - 5.80 X10*6/uL [facility] Hemoglobin 11.7(L) 14.0 - 18.0 g/dl [facility] Hematocrit 37.2(L) 42.0 - 52.0 % [facility] Mean Corpuscular Volume 77.0(L) 80.0 - 98.0 fL [facility] Mean Corpuscular Hemoglobin 24.2(L) 27.0 - 33.0 pg [facility] Mean Corpuscular HGB Conc 31.5 31.0 - 36.0 g/dl [facility] Red Cell Distribution Width 14.6 11.0 - 16.0 % [facility] Platelet Count 264 160 - 400 X10*3/uL [facility] Mean Platelet Volume 8.9(L) 9.4 - 12.4 fL [facility] Neutrophils Percent Auto 82.4(H) 45 - 73 % [facility] Imm Gran Pct Auto 0.5(H) 0.0 - 0.4 % [facility] Lymphocytes Percent Auto 10.7(L) 20 - 40 % [facility] Monocytes Percent Auto 5.5 2 - 11 % [facility] Eosinophils Percent Auto 0.6 0 - 4 % [facility] Basophils Percent Auto 0.3 0 - 2 % [facility] NRBC Pct Auto 0.0 0.0 - 0.2 /100WBC [facility] Neutrophils Absolute Auto 9.6(H) 2.0 - 8.3 x10*3/uL [facility] Imm Gran Abs Auto 0.06(H) 0.00 - 0.03 X10*3/uL [facility] Lymphocytes Absolute Auto 1.2 1.2 - 4.9 X10*3/uL [facility] Monocytes Absolute Auto 0.6 0.1 - 1.2 X10*3/uL [facility] Eosinophils Absolute Auto 0.1 0.0 - 0.4 X10*3/uL [facility] Basophils Absolute Auto 0.0 0.0 - 0.2 X10*3/uL [facility] NRBC Abs Auto 0.000 0.0 - 0.012 X10*3/uL [facility] 06/26/2024 5:08 PM EDT 06/26/2024 5:12 PM EDT us Generic External Data Provider LAB BLOOD ORDERAB LES Final Result Performing Organization Address City/[facility]/ZIP Co de Phone Number [facility] [address] [place] [phone] * Magnesium (06/26/2024 5:08 PM EDT) Magnesium 1.9 1.6 - 2.6 mg/dL [facility] 06/26/2024 5:08 PM EDT 06/26/2024 5:12 PM EDT us Generic External Data Provider LAB BLOOD ORDERAB LES Final Result Performing Organization Address [facility] Co de Phone Number [facility] [address] [place] [phone] * Lipase (06/26/2024 5:08 PM EDT) Lipase 9 8 - 78 U/L [facility] 06/26/2024 5:08 PM EDT 06/26/2024 5:12 PM EDT us Generic External Data Provider LAB BLOOD ORDERAB LES Final Result Performing Organization Address [facility] Co de Phone Number [facility] [address] [place] [phone] * Creatine Kinase, Total (06/26/2024 5:08 PM EDT) Creatine Kinase Total 52 38 - 174 U/L [facility] 06/26/2024 5:08 PM EDT 06/26/2024 5:12 PM EDT us Generic External Data Provider LAB BLOOD ORDERAB LES Final Result Performing Organization Address [facility]/ZIP Co de Phone Number [facility] [address] [place] [phone] * (ABNORMAL) Comprehensive Metabolic Panel (06/26/2024 5:08 PM EDT) Sodium 139 135 - 145 mmol/L [facility] Potassium 4.2 3.3 - 5.1 mmol/L [facility] Chloride 106 96 - 108 mmol/L [facility] Carbon Dioxide 27 22 - 29 mmol/L [facility] Anion Gap 10(L) 12 - 20 [facility] Urea Nitrogen (BUN) 10 9 - 16 mg/dL [facility] Creatinine, Serum 0.89 0.5 - 1.4 mg/dL [facility] Creatinine Clr Calc Pharmacy 126.3 [facility] Comment:eGFR (calculated fro m the MDRD study equation) and eCrCl(calculated from the Cockcroft-Gault equation) are based ondifferent parameters and may not yield comparable results.If eCrCl result is absurd, please check patient'sheight/weight. Estimated Glomerular Filt Rate >60 [facility] Comment:Chronic Kidney Disea se: Estimated GFR < 60 mL/min/1.01j8Lonqqh Kidney Disease: Estimated GFR < 15 mL/min/1.73m2 Glucose 106 60 - 115 mg/dL [facility] Calcium 8.6 8.4 - 10.2 mg/dL [facility] Bilirubin, Total 0.3 0.0 - 1.0 mg/dL [facility] Aspartate Amino Transferase 19 5 - 37 U/L [facility] Alanine Aminotransferase 19 0 - 40 U/L [facility] Total Protein 7.1 6.5 - 8.0 g/dL [facility] Albumin Level 3.7 3.5 - 5.0 g/dL [facility] Alkaline Phosphatase 94 39 - 117 U/L [facility] 06/26/2024 5:08 PM EDT 06/26/2024 5:12 PM EDT us Generic External Data Provider LAB BLOOD ORDERAB LES Final Result [facility] [address] [place] [phone] [phone] * POCT HGB A1C (06/20/2024 12:05 PM EDT) Pathologist [facility] Hemoglobin A1C 6.0 4.0 - 6.0 % QC Media Lot # [id number] Lot# Expiration Date ,[id number] Blood 06/20/2024 12:0 5 PM EDT Andrea [...] ENTER /EDIT ORDERABLES Final Result * (ABNORMAL) Lipid Panel, Standard (06/08/2023 8:20 AM EST) Pathologist [facility] Triglycerides 236(H) <150 mg/dL [facility] Comment:Desirable Triglyceri de: less than 150 mg/dLBorderline High Triglyceride 150-199 mg/dLHigh Triglyceride: 200-499 mg/dLVery High Triglyceride: greater than or equal to 5OO mg/dL Cholesterol 137 <200 mg/dL [facility] Comment:Desirable Cholestero l: less than 200 mg/dLBorderline High Cholesterol: 200-239 mg/dLHigh Cholesterol: greater than 239 mg/dL LDL Cholesterol Calculated 57 <100 mg/dL [facility] Comment:Desirable LDL: less than 100 mg/dLNear Optimal/Above Optimal LDL: 110- 129 mg/dLBorderline High LDL: 130-159 mg/dLHigh LDL: 160-189 mg/dLVery High LDL: greater than or equal to 190 mg/dL HDL Cholesterol 33(L) >40 mg/dL [facility] Comment:Desirable HDL: great er than 40 mg/dL Note: This HDL assay may give artificially low results in patients with liver disease. Blood Venous blood specimen / Unknown 06/08/2023 8:20 AM EST 06/08/2023 11:33 AM EST Yesica Ibarra MD LAB BLOOD ORDERAB LES Final Result [facility] [address] [place] [phone] [phone] from Last 3 Months or Most Recently Relevant to Health Maintenance Insurance [address] [place] [address] [facility] MEDICAID STAND ADULT Care Teams Electrical Engineering Professor Relationship Specialty Start Date End Date Andrea Amor MD [address] [place] [address] PCP - General Internal Medicine 12/07/23
--- OUTSIDE RECORDS SUMMARY | 2024-08-15 10:18 | XMS_ITS | Encounter Summary ---
Author Organization [employer] Address [address] [place] [address] [address]t [place] [address] Care Team Providers Care Miner Name Role Phone Neetu Bah Primary Care Provider Roma Bender Primary Care Provider [phone] Neetu Bah Unavailable [phone] Lesia Tran MD Primary Care Provider + Encounter Details Date Type Department Care Team (Late st Contact Info) Description 09/29/2022 Abstract [facility] [address] [place] [address] Trenton Wilkerson DDS [address] [place] [address] Social History Tobacco Use Types Packs/Day Years [...] 08/17/2024 10:45 AM EDT [facility] [address] [place] [address] Lesia Tran MD [address] [place] [address] 08/17/2024 11:30 AM EDT Nurse Only [facility] [address] [place] [address] 08/25/2024 8:00 AM EDT Office Visit [facility] [address] [place] [address] Trenton Wilkerson DDS [address] [place] [address] 10/02/2024 1:00 PM EDT [facility] [address] [place] [address] TarkaMariah, OD [address] [place] [address] documented as of this encounter Visit Diagnoses Not on filedocumented in this encounter Care Teams Miner Relationship Specialty Start Date End Date Neetu Bah AGNP [address] [place] [phone] PCP - General Family Medicine 11/28/20 01/13/23 Roma Bender FNP [address] [place] [phone] PCP - General Family Medicine 01/14/23 12/06/23 Lesia Tran MD [address] [place] [address] PCP - General Internal Medicine 12/07/23 Neetu Bah, NITIN [address] [place] [phone] Family Medicine 01/14/23 09/02/23 documented as of this encounter
--- OUTSIDE RECORDS SUMMARY | 2024-08-15 10:18 | XMS_ITS | Encounter Summary ---
Author Organization [employer] Address [address] [place] [address] 7t [place] [address] Care Team Providers Care Wardrobe Specialty Worker Name Role Phone Lesia Tran MD Primary Care Provider + Reason for Visit * Reason Onset Date Comments Med Refill 05/15/2024 Encounter Details Date Type Department Care Team (Late st Contact Info) Description 05/15/2024 Telephone [facility] MED[facility] [address] [place] [address] Lesia Tran MD [address] [place] [address] Med Refill Social History Tobacco Use Types [...] 9:47 AM EST Medication was sent to [facility][id number] on 05/01/24 with 1 refill. * Telephone Encounter - Kenisha Mtz - 05/15/2024 9:43 AM EST TC from pt requesting medication refill. Medications needing refill : hydrOXYzine pamoate (Vistaril) 25 MG capsule To be sent to: [facility]/pharmacy #[id number] - [address] documented in this encounter Plan of Treatment Upcoming Encounters Date Type Department Care Team (Late st Contact Info) Description 08/17/2024 10:45 AM EDT Office Visit [facility] MED[facility] [address] [place] [address] Lesia Tran MD [address] [place] [address] 08/17/2024 11:30 AM EDT Nurse Only [facility] MED[facility] [address] [place] [address] 08/25/2024 8:00 AM EDT Office Visit [facility] ADULT DENTAL [address] [place] [address] Trenton Wilkerson DDS [address] [place] [address] 10/02/2024 1:00 PM EDT Office Visit [facility] OPTOMETRY [address] [place] [address] Mariah Villaseñor, OD [address] [place] [address] documented as of this encounter Visit Diagnoses Not on filedocumented in this encounter Additional Health Concerns Assessment Noted Time PHQ-9 Depression Total Score: 21 024 2:23 PM EST documented as of this encounter Care Teams Wardrobe Specialty Worker Relationship Specialty Start Date End Date Lesia Tran MD [address] [place], [place] [phone] PCP - General Internal Medicine 12/07/23 documented as of this encounter
--- OUTSIDE RECORDS SUMMARY | 2024-08-15 10:18 | XMS_ITS | Encounter Summary ---
Author Organization [employer] Address [address] [facility] 7[address] [place] [address] Care Team Providers Care Supervisor Capacitor Processing Name Role Phone Roma Bender Primary Care Provider [phone] Neetu Bah Unavailable [phone] Lesia Tran MD Primary Care Provider + Encounter Details Date Type Department Care Team (Late st Contact Info) Description 02/19/2023 Orders Only [facility] [address] [place] [address] Roma Bender FNP [address] [place] [address] Other acute gastritis, presence of bleeding unspecified [...] Description 08/17/2024 10:45 AM EDT Office Visit [facility] MEDICINE [address] [place] [phone] eLsia Tran MD [address] [place] [address] 08/17/2024 11:30 AM EDT Nurse Only [facility] MEDICINE [address] [place] [address] 08/25/2024 8:00 AM EDT Office Visit [facility] ADULT DENTAL [address] [place] [address] Trenton Wilkerson DDS [address] [place] [address] 10/02/2024 1:00 PM EDT Office Visit [facility] OPTOMETRY [address] [place] [address] Mariah Villaseñor, OD [address] [place] [address] documented as of this encounter Visit Diagnoses Diagnosis Other acute gastritis, presence of bleeding unspecified- Primary documented in this encounter Additional Health Concerns Assessment Noted Time PHQ-9 Depression Total Score: 11 023 3:14 PM EDT documented as of this encounter Care Teams Supervisor Capacitor Processing Relationship Specialty Start Date End Date Roma Bender FNP [address] [place] [address] PCP - General Family Medicine 01/14/23 12/06/23 Lesia Tran MD [address] [place] [address] PCP - General Internal Medicine 12/07/23 Neetu Bah AGNP [address] [place] [phone] Family Medicine 01/14/23 09/02/23 documented as of this encounter
--- OUTSIDE RECORDS SUMMARY | 2024-08-15 10:18 | XMS_ITS | Encounter Summary ---
Author Organization [employer] Address [address] [place] [address] 7t [place] [address] Care Team Providers Care House Builder Name Role Phone Neetu Bah Primary Care Provider Roma Bender Primary Care Provider Neetu Bah Unavailable [phone] Lesia Tran MD Primary Care Provider + Reason for Visit * Reason Onset Date Comments New Patient 11/18/2022 Encounter Details Date Type Department Care Team (Late st Contact Info) Description 11/18/[address] [facility] MEDICINE [address] [place] [address] Koby Holland MD [address] [place], [place] [phone] New Patient Social History Tobacco Use Types [...] been transfer over to wait list for PREVOCATIONAL/REHABILITATION COUNSELOR. EFFECTIVE SINCE 11/24/2022 * Telephone Encounter - Lisa Lopes - 11/18/2022 10:33 AM EDT Tc to Pt , informed that we do take insurance, but must call [facility] to change location. Once done, to please call back to facility at [phone] documented in this encounter Plan of Treatment Upcoming Encounters Date Type Department Care Team (Late st Contact Info) Description 08/17/2024 10:45 AM EDT Office Visit [facility] MEDICINE [address] [place] [address] Lesia Tran MD [address] [place] [address] 08/17/2024 11:30 AM EDT Nurse Only [facility] [address] [place] [address] 08/25/2024 8:00 AM EDT Office Visit [facility] ADULT DENTAL [address] [place] [address] Trenton Wilkerson DDS [address] [place] [address] 10/02/2024 1:00 PM EDT Office Visit [facility] OPTOMETRY [address] [place] [address] Mariah Villaseñor OD [address] [place] [address] documented as of this encounter Visit Diagnoses Not on filedocumented in this encounter Care Teams House Builder Relationship Specialty Start Date End Date Neetu Bah AGNP [address] [place] [phone] PCP - General Family Medicine 11/28/20 01/13/23 Roma Bender FNP [address] [place] [address] PCP - General Family Medicine 01/14/23 12/06/23 Lesia Tran MD [address] [place] [address] PCP - General Internal Medicine 12/07/23 Neetu Bah AGNP [address] [place] [phone] Family Medicine 01/14/23 09/02/23 documented as of this encounter
[2024-08-15] MEDS: Doxycycline Monohydrate 100 MG CAPSULE PO ×2 (10:44→22:31)
[2024-08-15] MEDS: Furosemide 20 MG TABLET PO (10:44)
--- NOTE | 2024-08-15 10:45 | PC.NURSE ---
pt medicated per MAR.
[2024-08-15 10:48] LABS: Amphetamine Screen Urine Not Detected (Not Detect); Barbiturates, Urine Not Detected (Not Detect); Benzodiazepines Screen Urine Not Detected (Not Detect); Buprenorphine Scr Not Detected (Not Detect); Cannabinoid Screen Urine POSITIVE (Not Detect); Cocaine Screen Urine Not Detected (Not Detect); Fentanyl, urine Not Detected (Not Detect); Methadone Screen, Urine Positive (Not Detect); Opiate Screen Urine Not Detected (Not Detect); Oxycodone Screen Urine Not Detected (Not Detect); Phencyclidine Screen Urine Not Detected (Not Detect)
[2024-08-15 11:20] LABS: B Type Natriuretic Peptide 25 pg/mL (<100)
[2024-08-15] MEDS: cloNIDine HCL 0.1 MG TABLET PO (11:23)
[2024-08-15 12:32] LABS: Glucose, Whole Blood 94 mg/dL (60-115)
--- NOTE | 2024-08-15 13:29 | MHC.CARE ---
Pt meets the criteria for [facility] and will be an inpatient psychiatric bed search. Section 12a in chart. Provider in agreement.
[2024-08-15] MEDS: QUEtiapine Fumarate 25 MG TABLET 75 MG PO (22:30)
[2024-08-15] MEDS: Magnesium Oxide 400 MG TABLET PO (22:30)
[2024-08-15] MEDS: Famotidine 20 MG TABLET PO (22:30)
[2024-08-15] MEDS: Mirtazapine 15 MG TABLET PO (22:31)
[2024-08-15] MEDS: Divalproex Sodium 250 MG TABLET.DR PO (22:31)
[2024-08-16] VITALS (11 sets, daily range): BP systolic 117–146; BP diastolic 76–100; PULSE 66–90; RESP 16–20; TEMP 36.1–36.8; O2SAT 88–97; BMI 47.6
[2024-08-16] MEDS: Acetaminophen 325 MG TABLET 650 MG PO ×2 (03:00→19:30)
[2024-08-16] MEDS: clonazePAM 0.5 MG TABLET PO ×2 (03:03→20:42)
[2024-08-16] MEDS: QUEtiapine Fumarate 25 MG TABLET 75 MG PO ×2 (08:07→20:42)
[2024-08-16] MEDS: Divalproex Sodium 250 MG TABLET.DR PO ×2 (08:07→20:41)
[2024-08-16] MEDS: hydrOXYzine HCL 25 MG TABLET PO (08:07)
[2024-08-16] MEDS: Aspirin Enteric Coated 81 MG TABLET.DR PO (08:07)
[2024-08-16] MEDS: FLUoxetine HCl 20 MG CAPSULE 40 MG PO (08:07)
[2024-08-16] MEDS: Multivitamin TABLET 1 TAB PO (08:08)
--- NOTE | 2024-08-16 08:24 | HE.PHANOTE ---
re methadone Pharmacy has received patients methadone verification form done by ROXANN EVANS. Last dose given was 125 mg on 07/22/2023 with [facility] methadone clinic. Patient was given 27 take home bottles to last them until 08/18/24
[2024-08-16] MEDS: Fluticasone/Vilanterol 200/25 BLST.W.DEV 1 PUFF INHALE (08:28)
--- NOTE | 2024-08-16 08:28 | PC.NURSE ---
Pt's methadone dose verified with [facility] Meth[facility]one [facility]
[2024-08-16] MEDS: methADONE HCl 20 MG/2 ML ORAL.CONC 125 MG PO (08:34)
[2024-08-16] MEDS: Doxycycline Monohydrate 100 MG CAPSULE PO (11:06)
[2024-08-16 11:09] LABS: Glucose, Whole Blood 99 mg/dL (60-115)
--- NOTE | 2024-08-16 11:13 | PC.NURSE ---
Pt diaphoretic, pale; vss; BG POC 99; MD made aware, at bedside; pt states he gets diaphoretic all the time ; no new orders per MD at this time; pt refuses to have NC O2 turned off to check a room air SAO2;pt not on home O2 but states he needs it for sleep due to TYSON; pt not currently on CPAP
--- NOTE | 2024-08-16 11:57 | PHA.MEDREC ---
Addendum entered by eDangelo Vega 08/16/24 12:09: reviewed Original Note: Pharmacy Consult ? Medication Reconciliation Pharmacy reviewed med rec done by nursing. Spoke with patient and he confirmed his medications; patient confirmed he is now taking the Fluoxetine 20mg tab taking 3 tabs daily and nurse had confirmed 40mg daily, I updated that in the med rec. Patient also confirmed he is not taking the Hydroxyzine anymore, stating his psychiatrist said he cant take the medication while he is taking his Olanzapine and or Quetiapine. Patient confirmed he is taking the Methadone taking 125mg daily and stated he gets it from the [facility] clinic in [place].
--- NOTE | 2024-08-16 14:36 | PC.NURSE ---
RN to RN report gv to ROXANN Gonsalez/; concerns were raised regarding pt's c/o SOB, SAO2 92% RA and psychiatry is holding off on the transfer to at this time; Dr Renteria made aware and pt to have repaeat labs and CT of chest w/out contrast
[2024-08-16 15:39] LABS: MANUAL DIFF FLAG NO
[2024-08-16 15:42] LABS: Basophils Percent Auto 0.4 % (0-2); Eosinophils Absolute Auto 0.2 X10*3/uL (0.0-0.4); Eosinophils Percent Auto 2.8 % (0-4); Hematocrit 35.1 % (42.0-52.0); Hemoglobin 10.6 g/dl (14.0-18.0); Imm Gran Abs Auto 0.08 X10*3/uL (0.00-0.03); Lymphocytes Absolute Auto 1.7 X10*3/uL (1.2-4.9); Mean Corpuscular HGB Conc 30.2 g/dl (31.0-36.0); Mean Corpuscular Hemoglobin 24.9 pg (27.0-33.0); Mean Corpuscular Volume 82.4 fL (80.0-98.0); Mean Platelet Volume 8.4 fL (9.4-12.4); Monocytes Absolute Auto 0.7 X10*3/uL (0.1-1.2); Monocytes Percent Auto 8.5 % (2-11); Neutrophils Absolute Auto 5.1 x10*3/uL (2.0-8.3); Neutrophils Percent Auto 65.3 % (45-73); Platelet Count 229 X10*3/uL (160-400); Red Blood Count 4.26 X10*6/uL (4.60-5.80); Red Cell Distribution Width 16.9 % (11.0-16.0); White Blood Count 7.9 X10*3/uL (4.8-10.8)
[2024-08-16 15:43] LABS: Venous Blood Gas Refer to POC result
[2024-08-16 15:44] LABS: VBG HCO3 39 mmol/L (22-26); VBG pCO2 60 mmHg; VBG pH 7.42 (7.32-7.43); VBG pO2 51 mmHg
[2024-08-16 15:57] LABS: Lactic Acid 1.5 mmol/L (0.5-2.0)
[2024-08-16 16:05] LABS: Alanine Aminotransferase 17 U/L (0-40); Albumin Level 3.3 g/dL (3.5-5.0); Anion Gap 12 (12-20); Aspartate Amino Transferase 23 U/L (5-37); Bilirubin Total 0.3 mg/dL (0.0-1.0); Blood Urea Nitrogen 12 mg/dL (9-16); Calcium 8.6 mg/dL (8.4-10.2); Carbon Dioxide 32 mmol/L (22-29); Chloride 97 mmol/L (96-108); Creatinine Clr Calc Pharmacy 148.1; Estimated Glomerular Filt Rate > 60; Glucose Random 93 mg/dL (60-115); Potassium 4.1 mmol/L (3.3-5.1); Sodium 137 mmol/L (135-145); Total Protein 6.8 g/dL (6.5-8.0)
--- NOTE | 2024-08-16 16:07 | PC.NURSE ---
Pt's RA SAO2 remains 88-92; pt remains pale; LS with dim left base; made aware and medical work-up ordered (see orders); put bilateral U/S guided IV's; pt placed back on O2 at 2 ltr with SAO2 95%
[2024-08-16 16:13] LABS: Alkaline Phosphatase 98 U/L (39-117)
--- NOTE | 2024-08-16 16:54 | P.HPHOSP_ITS ---
History of Present Illness Date of Service: 08/16/24 Chief Complaint: SI, cough 39yo M with bipolar depression, asthma, and polysubstance abuse who presented to the ED via EMS with suicidal ideation and auditory and visual hallucinations. Reports daily cough which he attributes to smoking. No purulent sputum and denies wheezing. Was awaiting inpatient psychiatry bed but then found to be hypoxic with SaO2 88%. CXR with bilateral lower lobe pneumonia and he was given levofloxacin and doxycycline. He reportedly had a rash with penicillin in the past but does not remember any details of that. Upon review he had ceftriaxone in 2019 without issues. He denies fever or shaking chills. Endorses some leg swelling. Review of Systems 2 Review of Systems: Yes all other systems are reviewed and are negative [facility] Medical History Suicidal ideation Exocrine pancreatic insufficiency Polysubstance abuse No known health problems Social History Household Members: Family Housing: Apartment Do you presently have visiting nurse or other home services: No Alcohol intake: former Patient Tobacco Use Status: Former Tobacco user Smoked in Last 30 Days: No Use of substances other than those prescribed or required for medical reasons: Yes Substance Use Type: Marijuana Substance Use Frequency: Chronic Longstanding Last Used Substance: Just Prior to Admission Advance Directives: Yes Advance Directives on File: Yes Advance Directives Date on File: 03/15/24 Do you have a plan to hurt others: No Plan service: No Sexual orientation: Straight/Heterosexual Meds Allergies Allergy/AdvReac Type Severity Reaction Status Date / Time Penicillins [PENICILLINS] Allergy Unknown RASH Verified 08/15/24 09:34 Active Medications: Current Medications Acetaminophen (Acetaminophen 325 Mg Tablet) 650 mg PO Q6H PRN PRN Reason: Headache/Pain, Scale 1-10 Acetaminophen (Acetaminophen 325 Mg Tablet) 650 mg PO Q6H PRN PRN Reason: Pain, Mild 1-3,fever,headache Al Hydroxide/Mg Hydroxide (Magnesium Hydrox/Alum Hydrox 30 Ml Oral.Susp) 30 ml PO Q6H PRN PRN Reason: Heartburn/Nausea Albuterol Sulfate (Albuterol Sulfate 90 Mcg 8 Gm Inhaler) 2 puff INHALE Q4H PRN PRN Reason: Shortness Of Breath Or Wheezing Aspirin (Aspirin Enteric Coated 81 Mg Tablet.) 81 mg PO DAILY [facility] Last Admin: 08/16/24 08:07 Dose: 81 mg Calcium Carbonate (Calcium Carbonate 750 Mg Tab.Chew) 750 mg PO Q4H PRN PRN Reason: Heartburn Ceftriaxone Sodium (Ceftriaxone Sodium 1 Gm Vial) 1 gm IVPUSH Q24H [facility] Clonazepam (Clonazepam 0.5 Mg Tablet) 0.5 mg PO BID PRN PRN Reason: Anxiety Last Admin: 08/16/24 03:03 Dose: 0.5 mg Clonidine HCl (Clonidine Hcl 0.1 Mg Tablet) 0.1 mg PO BID PRN; Protocol PRN Reason: anxiety Divalproex Sodium (Divalproex Sodium 250 Mg Tablet.) 250 mg PO BID [facility] Last Admin: 08/16/24 08:07 Dose: 250 mg Doxycycline Monohydrate (Doxycycline Monohydrate 100 Mg Capsule) 100 mg PO Q12H [facility] Enoxaparin Sodium (Enoxaparin Sodium 40 Mg/0.4 Ml Syringe) 40 mg SUBCUT Q24H [facility] Famotidine (Famotidine 20 Mg Tablet) 20 mg PO BEDTIME [facility] Last Admin: 08/15/24 22:30 Dose: 20 mg Ferrous Sulfate (Ferrous Sulfate 324 Mg Tablet.) 324 mg PO Q2D@0900 [facility] Fluoxetine HCl (Fluoxetine Hcl 20 Mg Capsule) 40 mg PO DAILY [facility] Last Admin: 08/16/24 08:07 Dose: 40 mg Fluoxetine HCl (Fluoxetine Hcl 20 Mg Capsule) 60 mg PO DAILY [facility] Fluticasone/Vilanterol (Fluticasone/Vilanterol 200/25 Blst.W.Dev) 1 puff INHALE RDAILY [facility] Last Admin: 08/16/24 08:28 Dose: 1 puff Hydroxyzine HCl (Hydroxyzine Hcl 25 Mg Tablet) 25 mg PO BID PRN PRN Reason: mild anxiety Last Admin: 08/16/24 08:07 Dose: 25 mg Hydroxyzine HCl (Hydroxyzine Hcl 25 Mg Tablet) 25 mg PO Q6H PRN PRN Reason: mild anxiety Levofloxacin (Levaquin) 750 mg in 150 mls @ 100 mls/hr IV ONCE ONE Stop: 08/16/24 17:25 Doxycycline Hyclate 100 mg/ (Sodium Chloride) 250 mls @ 166.67 mls/hr IV ONCE ONE Stop: 08/16/24 17:34 Magnesium Hydroxide (Milk Of Magnesia 30 Ml Oral.Susp) 30 ml PO DAILY PRN PRN Reason: Constipation Magnesium Hydroxide (Milk Of Magnesia 30 Ml Oral.Susp) 30 ml PO DAILY PRN PRN Reason: Constipation Magnesium Oxide (Magnesium Oxide 400 Mg Tablet) 400 mg PO BEDTIME [facility] Last Admin: 08/15/24 22:30 Dose: 400 mg Melatonin (Melatonin 3 Mg Tablet) 6 mg PO BEDTIME PRN PRN Reason: Insomnia Methadone HCl (Methadone Hcl 20 Mg/2 Ml Oral.Conc) 125 mg PO DAILY [facility] Mirtazapine (Mirtazapine 15 Mg Tablet) 15 mg PO BEDTIME [facility] Last Admin: 08/15/24 22:31 Dose: 15 mg Multivitamins/Vitamin C (Multivitamin Tablet) 1 tab PO DAILY [facility] Last Admin: 08/16/24 08:08 Dose: 1 tab Nicotine (Nicotine 21 Mg Patch.Td24) 21 mg TRANSDERMA DAILY PRN PRN Reason: smoking cessation Nicotine Polacrilex (Nicotine Polacrilex 2 Mg Gum) 4 mg BUCCAL Q2H PRN PRN Reason: Nicotine Cravings Non-Formulary Medication (Hgwmky-Lmowogxo-Gwghwam [Creon]) 2 cap PO TID [facility] Non-Formulary Medication (Slmlpy-Lzlftocu-Wjpjddc [Creon]) 2 cap PO TIDWM [facility] Olanzapine (Olanzapine 5 Mg Tablet) 5 mg PO TID PRN PRN Reason: agitation Olanzapine (Olanzapine 5 Mg Tablet) 5 mg PO TID PRN PRN Reason: agitation Omeprazole (Omeprazole 20 Mg Capsule.Dr) 20 mg PO DAILY@0630 [facility] Last Admin: 08/16/24 05:32 Dose: Not Given Ondansetron HCl (Ondansetron Hcl 4 Mg/2 Ml Vial) 4 mg IVPUSH Q8H PRN PRN Reason: Nausea and Vomiting Quetiapine Fumarate (Quetiapine Fumarate 25 Mg Tablet) 75 mg PO BID [facility] Last Admin: 08/16/24 08:07 Dose: 75 mg Senna (Sennosides 8.6 Mg Tablet) 17.2 mg PO BEDTIME PRN PRN Reason: constipation Sodium Chloride (0.9 % Sodium Chloride Flush 3 Ml Syringe) 3 ml IVFLUSH QSHIFT [facility] Trazodone HCl (Trazodone Hcl 50 Mg Tablet) 50 mg PO BEDTIME MRX1 PRN PRN Reason: Insomnia Home Medications ?Medication ?Instructions ?Recorded ?Confirmed ?Last Taken ?Type aspirin 81 mg tablet,delayed 81 mg PO DAILY 09/02/23 08/16/24 08/14/24 History release mirtazapine 15 mg tablet 15 mg PO BEDTIME 09/02/23 08/16/24 08/14/24 History methadone 10 mg/mL oral 125 mg PO DAILY 03/11/24 08/16/24 07/27/24 History concentrate (Methadone Intensol) clonidine HCl 0.1 mg tablet 0.1 mg PO BID PRN anxiety 07/22/24 08/16/24 Unknown History ferrous sulfate 325 mg (65 mg 325 mg PO Q OTHER DAY 07/22/24 08/16/24 3 Days Ago History iron) tablet,delayed release ~08/13/24 olanzapine 5 mg tablet 5 mg PO TID PRN agitation 07/22/24 08/16/24 Unknown History sennosides 8.6 mg tablet (Natural 17.2 mg PO BEDTIME PRN constipation 07/22/24 08/16/24 Unknown History Senna Laxative) famotidine 20 mg tablet 20 mg PO BEDTIME 07/27/24 08/16/24 08/14/24 History albuterol sulfate 90 mcg/actuation 2 puff inhalation Q4-6H PRN 08/15/24 08/16/24 Unknown History aerosol inhaler (Ventolin HFA) Shortness Of Breath Or Wheezing clonazepam 0.5 mg tablet 0.5 mg PO BID PRN Anxiety 08/15/24 08/16/24 Unknown History fluticasone furoate 200 1 inh inhalation DAILY 08/15/24 08/16/24 08/14/24 History mcg-vilanterol 25 mcg/dose inhalation powder (Breo Ellipta) fluoxetine 20 mg capsule 60 mg PO DAILY 08/16/24 08/16/24 08/14/24 History dtnbqu-ylymofon-cozszhh 2 cap PO TIDWM 08/16/24 08/16/24 08/14/24 History 36,000-114,000-180,000 unit capsule,delay rel (Creon) Physical Exam 2 Vital Signs and Narrative: Vital Signs: Last Vital Signs Temp 98.3 F 08/16/24 15:15 Pulse 89 08/16/24 15:15 Resp 20 08/16/24 15:15 BP 125/82 08/16/24 15:15 Pulse Ox 88 L 08/16/24 15:15 O2 Del Method Room Air 08/16/24 15:15 O2 Flow Rate 2 08/16/24 11:11 BMI result Body Mass Index 46.2 Gen: in no acute distress HEENT: sclera anicteric, moist mucus membranes Neck: supple Lungs: diminished bilateral bases Heart: regular rate and rhythm, no murmurs Abd: soft, non-tender, non-distended, obese Ext: no edema Skin: warm/well-perfused Neuro: alert and oriented x3, no focal findings Psych: restricted affect Results Labs 08/16/24 15:31 08/16/24 12:46 Labs: Laboratory Results - last 24 hr 08/16/24 08/16/24 08/16/24 11:05 12:46 15:31 MCV 82.4 MCH 24.9 L MCHC 30.2 L RDW 16.9 H Plt Count 229 MPV 8.4 L Immature Gran % (Auto) 1.0 H Neut % (Auto) 65.3 Lymph % (Auto) 22.0 [place] % (Auto) 8.5 Eos % (Auto) 2.8 Baso % (Auto) 0.4 Lymph # (Auto) 1.7 [place] # (Auto) 0.7 Eos # (Auto) 0.2 Baso # (Auto) 0.0 Abs Immat Gran (auto) 0.08 H Absolute Neuts (auto) 5.1 Absolute Nucleated RBC 0.000 Nucleated RBC % (auto) 0.0 VBG pH VBG pCO2 VBG pO2 VBG HCO3 VBG O2 Saturation VBG Base Excess Anion Gap 12 Estim Creat Clear Calc 148.1 Estimated GFR > 60 POC Glucose 99 Random Glucose 93 Lactic Acid 1.5 Calcium 8.6 Total Bilirubin 0.3 AST 23 ALT 17 Alkaline Phosphatase 98 Total Protein 6.8 Albumin 3.3 L 08/16/24 15:40 MCV MCH MCHC RDW Plt Count MPV Immature Gran % (Auto) Neut % (Auto) Lymph % (Auto) [place] % (Auto) Eos % (Auto) Baso % (Auto) Lymph # (Auto) [place] # (Auto) Eos # (Auto) Baso # (Auto) Abs Immat Gran (auto) Absolute Neuts (auto) Absolute Nucleated RBC Nucleated RBC % (auto) VBG pH 7.42 VBG pCO2 60 VBG pO2 51 VBG HCO3 39 H VBG O2 Saturation 79.0 VBG Base Excess 13.0 Anion Gap Estim Creat Clear Calc Estimated GFR POC Glucose Random Glucose Lactic Acid Calcium Total Bilirubin AST ALT Alkaline Phosphatase Total Protein Albumin ITS Impressions Chest CT 08/16/24 14:33 IMPRESSION: 1. Bilateral lower lobe pneumonia. Follow-up is recommended to document resolution. 2. Hepatic steatosis. Splenomegaly. 3. Small to moderate hiatal hernia. Electronically signed by: Az Trujillo MD 08/16/2024 03:40 PM EDT RP Imaging Radiologist's Impressions: Impressions Chest CT 08/16/24 14:33 IMPRESSION: 1. Bilateral lower lobe pneumonia. Follow-up is recommended to document resolution. 2. Hepatic steatosis. Splenomegaly. 3. Small to moderate hiatal hernia. Electronically signed by: Az Trujillo MD 08/16/2024 03:40 PM EDT RP Assessment and Plan (1) Suicidal ideation: Status: Acute (2) Anxiety: Status: Acute (3) Homicidal ideation: Status: Acute (4) Hallucinations: Status: Acute (5) Opioid use disorder: Status: Acute Plan 39yo M with bipolar depression, asthma, and polysubstance abuse on methadone presenting with SI and hallucinations and found to be hypoxic from bilateral PNA while awaiting psychiatric bed placement. PNA - admit to M/S, give ceftriaxone + doxycycline, trend PCT, follow BCx, check MRSA swab + urinary antigens for Legionella and pneumococcus, HIV screen acute hypoxic respiratory failure - supplemental O2, wean as tolerated asthma - prn albuterol; no wheezing at this time; continue Breo controller inhaler SI bipolar depression - sitter - continue home meds: divalproex, mirtazapine, quetiapine, fluoxetine, clonazepam, clonidine, hydroxyzine, trazodone - IPLOC when medically cleared polysubstance abuse - continue methadone morbid obesity - diet/exercise counseling hepatic steatosis/splenomegaly - probably fatty liver but check US abd and screen HBV/HCV VTE prophylaxis - enoxaparin dispo - psychiatry inpt code status - full I anticipate that the patient will stay at least 2 midnights as an inpatient in the hospital due to the above reasons. It is neither reasonable nor safe to care for them in a less acute setting. Quality Stroke Does the patient have a stroke diagnosis?: No VTE Prior VTE?: No VTE Risk Level:: Medical - moderate - high VTE Device Contraindication: N/A - Device Ordered VTE Drug Contraindication: N/A - Med Ordered
[2024-08-16] MEDS: levoFLOXacin/D5W 750 MG/150 ML PIGGYBACK 100 MG IV (17:13)
[2024-08-16] MEDS: Enoxaparin Sodium 40 MG/0.4 ML SYRINGE SUBCUT (17:13)
[2024-08-16] MEDS: Doxycycline Hyclate 100 MG in 0.9 % Sodium Chloride 250 ML 166.67 MG IV (17:44)
[2024-08-16] MEDS: cefTRIAXone sodium 1 GM VIAL IVPUSH (17:45)
[2024-08-16 17:47] LABS: Procalcitonin 0.06 ng/mL
--- NOTE | 2024-08-16 19:21 | PC.NURSE ---
assumed care of this pt at this time. pt is calm and cooperative, a&ox4 speaking in full clear sentences and answering questions appropriately, denies any SI/HI. pt is eating dinner at this time. complaining of 5/10 generalized pain. will administered PRN tylenol per pts request. VSS. updated pt on plan of care. 1:[address] plan of care ongoing
[2024-08-16] MEDS: Mirtazapine 15 MG TABLET PO (20:41)
[2024-08-16] MEDS: Magnesium Oxide 400 MG TABLET PO (20:42)
[2024-08-16] MEDS: Famotidine 20 MG TABLET PO (20:42)
[2024-08-16] MEDS: Melatonin 3 MG TABLET 6 MG PO (20:42)
[2024-08-16] MEDS: Sennosides 8.6 MG TABLET 17.2 MG PO (20:47)
[2024-08-16] MEDS: traZODone HCL 50 MG TABLET PO (20:47)
[2024-08-16] MEDS: 0.9 % Sodium Chloride Flush 3 ML SYRINGE IVFLUSH (20:49)
[2024-08-17 03:23] VITALS: BP 132/77; PULSE 64; RESP 17; TEMP 36.6; O2SAT 93
[2024-08-17 04:33] LABS: MRSA Nasal PCR POSITIVE (Negative); SA Nasal PCR POSITIVE (Negative)
[2024-08-17 05:41] LABS: Hematocrit 35.7 % (42.0-52.0); Hemoglobin 10.8 g/dl (14.0-18.0); Mean Corpuscular HGB Conc 30.3 g/dl (31.0-36.0); Mean Corpuscular Hemoglobin 24.8 pg (27.0-33.0); Mean Corpuscular Volume 81.9 fL (80.0-98.0); Mean Platelet Volume 8.5 fL (9.4-12.4); Platelet Count 243 X10*3/uL (160-400); Red Blood Count 4.36 X10*6/uL (4.60-5.80); White Blood Count 6.4 X10*3/uL (4.8-10.8)
[2024-08-17 05:56] LABS: Anion Gap 10 (12-20); Blood Urea Nitrogen 14 mg/dL (9-16); Calcium 8.7 mg/dL (8.4-10.2); Carbon Dioxide 33 mmol/L (22-29); Chloride 99 mmol/L (96-108); Creatinine Clr Calc Pharmacy 167.5; Estimated Glomerular Filt Rate > 60; Glucose Random 114 mg/dL (60-115); Potassium 4.2 mmol/L (3.3-5.1); Sodium 138 mmol/L (135-145)
[2024-08-17 05:57] LABS: Alanine Aminotransferase 16 U/L (0-40); Albumin Level 3.3 g/dL (3.5-5.0); Alkaline Phosphatase 98 U/L (39-117); Anion Gap 13 (12-20); Aspartate Amino Transferase 20 U/L (5-37); Bilirubin Total 0.3 mg/dL (0.0-1.0); Blood Urea Nitrogen 14 mg/dL (9-16); Calcium 8.7 mg/dL (8.4-10.2); Carbon Dioxide 31 mmol/L (22-29); Chloride 98 mmol/L (96-108); Cholesterol 162 mg/dL (<200); Creatinine Clr Calc Pharmacy 167.5; Estimated Glomerular Filt Rate > 60; Glucose Random 113 mg/dL (60-115); HDL Cholesterol 41 mg/dL (>40); LDL Cholesterol Calculated 103 mg/dL (<100); Potassium 4.2 mmol/L (3.3-5.1); Sodium 138 mmol/L (135-145); Total Protein 6.8 g/dL (6.5-8.0); Triglycerides 91 mg/dL (<150)
[2024-08-17] MEDS: Omeprazole 20 MG CAPSULE.DR PO (06:00)
[2024-08-17 07:23] LABS: Estimated Average Glucose 128 mg/dL; Hemoglobin A1c % 6.1 % (<6.0); Total Hemoglobin (HGBA1C) 2879.1748 umol/L
[2024-08-17 07:53] LABS: HIV AB/AG Nonreactive (Nonreactive); HIV Num 1 0.12 S/CO (0.00-0.99)
[2024-08-17 07:55] VITALS: BP 126/88; PULSE 75; RESP 12; TEMP 36.1; O2SAT 94
[2024-08-17 07:56] LABS: HBS Num1 > 1000.00 mIU/mL (0-7.99); HBc Num1 1.32 S/CO (0.00-0.79); HBsAGNum1 0.26 S/CO (0.00-0.99); Hepatitis B Surface Antigen Negative (Negative); ~HepC Num1 0.12 S/CO (0.00-0.79); ~Hepatitis B Surface Antibody REACTIVE (Nonreactive); ~Hepatitis C Antibody Nonreactive (Nonreactive)
[2024-08-17] MEDS: Fluticasone/Vilanterol 200/25 BLST.W.DEV 1 PUFF INHALE (08:03)
[2024-08-17 08:05] VITALS: PULSE 75; RESP 16; O2SAT 93
[2024-08-17 08:39] LABS: HBc Num2 0.16 S/CO; HBc Num3 0.27 S/CO; Hepatitis B Core Antibody Nonreactive (Nonreactive)
[2024-08-17] MEDS: methADONE HCl 20 MG/2 ML ORAL.CONC 125 MG PO (08:50)
[2024-08-17] MEDS: Divalproex Sodium 250 MG TABLET.DR PO ×2 (08:54→19:54)
[2024-08-17] MEDS: QUEtiapine Fumarate 25 MG TABLET 75 MG PO ×2 (08:54→19:54)
[2024-08-17] MEDS: Multivitamin TABLET 1 TAB PO (08:54)
[2024-08-17] MEDS: Ferrous Sulfate 324 MG TABLET.DR PO (08:54)
[2024-08-17] MEDS: Aspirin Enteric Coated 81 MG TABLET.DR PO (08:54)
[2024-08-17] MEDS: Doxycycline Monohydrate 100 MG CAPSULE PO ×2 (08:55→19:54)
[2024-08-17] MEDS: 0.9 % Sodium Chloride Flush 3 ML SYRINGE IVFLUSH ×3 (08:55→22:15)
[2024-08-17] MEDS: FLUoxetine HCl 20 MG CAPSULE 60 MG PO (08:55)
[2024-08-17] MEDS: Lidocaine 4 % Patch ADH..PATCH 1 PATCH TRANSDERMA (08:56)
[2024-08-17] MEDS: Milk of Magnesia 30 ML ORAL.SUSP PO (09:24)
[2024-08-17] MEDS: clonazePAM 0.5 MG TABLET PO (09:24)
[2024-08-17] MEDS: predniSONE 20 MG TABLET 40 MG PO (09:44)
--- NOTE | 2024-08-17 11:08 | P.PNIM_ITS ---
Subjective Subjective Date of Service: 08/17/24 Interval History: afebrile c/o dyspnea, cough; no sputum c/o hot flushes, generalized aches, anxiety Review of Systems Review of Systems: Yes all other systems are reviewed and are negative Physical Exam 2 Vital Signs: Vital Signs: Last Vital Signs Temp 96.9 F 08/17/24 07:55 Pulse 75 08/17/24 08:05 Resp 16 08/17/24 08:05 BP 126/88 08/17/24 07:55 Pulse Ox 94 08/17/24 07:55 O2 Del Method Nasal Cannula 08/17/24 07:55 O2 Flow Rate 2 08/17/24 07:55 BMI result Body Mass Index 47.6 Gen: in no acute distress HEENT: sclera anicteric, moist mucus membranes Neck: supple Lungs: diminished bases bilaterally Heart: regular rate and rhythm, no murmurs Abd: soft, non-tender, non-distended, obese Ext: no edema Skin: warm/well-perfused Neuro: alert and oriented x3, no focal findings Psych: anxious Objective Data Active Medications Acetaminophen (Acetaminophen 325 Mg Tablet) 650 mg PO Q6H PRN PRN Reason: Pain, Mild 1-3,fever,headache Last Admin: 08/16/24 19:30 Dose: 650 mg Documented By: RADHA Al Hydroxide/Mg Hydroxide (Magnesium Hydrox/Alum Hydrox 30 Ml Oral.Susp) 30 ml PO Q6H PRN PRN Reason: Heartburn/Nausea Albuterol Sulfate (Albuterol Sulfate 90 Mcg 8 Gm Inhaler) 2 puff INHALE Q4H PRN PRN Reason: Shortness Of Breath Or Wheezing Aspirin (Aspirin Enteric Coated 81 Mg Tablet.Dr) 81 mg PO DAILY [facility] Last Admin: 08/17/24 08:54 Dose: 81 mg Documented By: VIET Calcium Carbonate (Calcium Carbonate 750 Mg Tab.Chew) 750 mg PO Q4H PRN PRN Reason: Heartburn Ceftriaxone Sodium (Ceftriaxone Sodium 1 Gm Vial) 1 gm IVPUSH Q24H [facility] Last Admin: 08/16/24 17:45 Dose: 1 gm Documented By: REBEKAH Clonazepam (Clonazepam 0.5 Mg Tablet) 0.5 mg PO BID PRN PRN Reason: Anxiety Last Admin: 08/17/24 09:24 Dose: 0.5 mg Documented By: VIET Clonidine HCl (Clonidine Hcl 0.1 Mg Tablet) 0.1 mg PO BID PRN; Protocol PRN Reason: anxiety Divalproex Sodium (Divalproex Sodium 250 Mg Tablet.) 250 mg PO BID [facility] Last Admin: 08/17/24 08:54 Dose: 250 mg Documented By: VIET Doxycycline Monohydrate (Doxycycline Monohydrate 100 Mg Capsule) 100 mg PO Q12H [facility] Last Admin: 08/17/24 08:55 Dose: 100 mg Documented By: VIET Enoxaparin Sodium (Enoxaparin Sodium 40 Mg/0.4 Ml Syringe) 40 mg SUBCUT Q24H [facility] Last Admin: 08/16/24 17:13 Dose: 40 mg Documented By: REBEKAH Famotidine (Famotidine 20 Mg Tablet) 20 mg PO BEDTIME [facility] Last Admin: 08/16/24 20:42 Dose: 20 mg Documented By: KAMINI Ferrous Sulfate (Ferrous Sulfate 324 Mg Tablet.) 324 mg PO Q2D@0900 [facility] Last Admin: 08/17/24 08:54 Dose: 324 mg Documented By: VIET Fluoxetine HCl (Fluoxetine Hcl 20 Mg Capsule) 60 mg PO DAILY [facility] Last Admin: 08/17/24 08:55 Dose: 60 mg Documented By: VIET Fluticasone/Vilanterol (Fluticasone/Vilanterol 200/25 Blst.W.Dev) 1 puff INHALE RDAILY [facility] Last Admin: 08/17/24 08:03 Dose: 1 puff Documented By: CORINA Hydroxyzine HCl (Hydroxyzine Hcl 25 Mg Tablet) 25 mg PO Q6H PRN PRN Reason: mild anxiety Lidocaine (Lidocaine 4 % Patch Adh..Patch) 1 patch TRANSDERMA DAILY [facility]; Protocol Last Admin: 08/17/24 08:56 Dose: 1 patch Documented By: VIET Magnesium Hydroxide (Milk Of Magnesia 30 Ml Oral.Susp) 30 ml PO DAILY PRN PRN Reason: Constipation Last Admin: 08/17/24 09:24 Dose: 30 ml Documented By: VIET Magnesium Oxide (Magnesium Oxide 400 Mg Tablet) 400 mg PO BEDTIME [facility] Last Admin: 08/16/24 20:42 Dose: 400 mg Documented By: KAMINI Melatonin (Melatonin 3 Mg Tablet) 6 mg PO BEDTIME PRN PRN Reason: Insomnia Last Admin: 08/16/24 20:42 Dose: 6 mg Documented By: KAMINI Methadone HCl (Methadone Hcl 20 Mg/2 Ml Oral.Conc) 125 mg PO DAILY [facility] Last Admin: 08/17/24 08:50 Dose: 125 mg Documented By: VIET Co-signed By: RUPINDER Mirtazapine (Mirtazapine 15 Mg Tablet) 15 mg PO BEDTIME [facility] Last Admin: 08/16/24 20:41 Dose: 15 mg Documented By: KAMINI Multivitamins/Vitamin C (Multivitamin Tablet) 1 tab PO DAILY [facility] Last Admin: 08/17/24 08:54 Dose: 1 tab Documented By: VIET Nicotine (Nicotine 21 Mg Patch.Td24) 21 mg TRANSDERMA DAILY PRN PRN Reason: smoking cessation Nicotine Polacrilex (Nicotine Polacrilex 2 Mg Gum) 4 mg BUCCAL Q2H PRN PRN Reason: Nicotine Cravings Non-Formulary Medication (Sycjqp-Udckxhnf-Yjyycvu [Creon]) 2 cap PO TID [facility] Olanzapine (Olanzapine 5 Mg Tablet) 5 mg PO TID PRN PRN Reason: agitation Omeprazole (Omeprazole 20 Mg Capsule.Dr) 20 mg PO DAILY@0630 [facility] Last Admin: 08/17/24 06:00 Dose: 20 mg Documented By: KAMINI Ondansetron HCl (Ondansetron Hcl 4 Mg/2 Ml Vial) 4 mg IVPUSH Q8H PRN PRN Reason: Nausea and Vomiting Polyethylene Glycol (Polyethylene Glycol 3350 17 Gm Powd.Pack) 17 gm PO DAILY [facility] Prednisone (Prednisone 20 Mg Tablet) 40 mg PO DAILY [facility] Last Admin: 08/17/24 09:44 Dose: 40 mg Documented By: VIET Quetiapine Fumarate (Quetiapine Fumarate 25 Mg Tablet) 75 mg PO BID [facility] Last Admin: 08/17/24 08:54 Dose: 75 mg Documented By: VIET Senna/Docusate Sodium (Sennosides/Docusate Sodium Tablet) 2 tab PO BID [facility] Sodium Chloride (0.9 % Sodium Chloride Flush 3 Ml Syringe) 3 ml IVFLUSH QSHIFT [facility] Last Admin: 08/17/24 08:55 Dose: 3 ml Documented By: VIET Trazodone HCl (Trazodone Hcl 50 Mg Tablet) 50 mg PO BEDTIME MRX1 PRN PRN Reason: Insomnia Last Admin: 08/16/24 20:47 Dose: 50 mg Documented By: LAURENQC Labs 08/17/24 05:15 08/17/24 05:15 Labs: Laboratory Results - last 24 hr 08/16/24 08/16/24 08/16/24 11:05 12:46 15:31 MCV 82.4 MCH 24.9 L MCHC 30.2 L RDW 16.9 H Plt Count 229 MPV 8.4 L Immature Gran % (Auto) 1.0 H Neut % (Auto) 65.3 Lymph % (Auto) 22.0 Vernon % (Auto) 8.5 Eos % (Auto) 2.8 Baso % (Auto) 0.4 Lymph # (Auto) 1.7 Vernon # (Auto) 0.7 Eos # (Auto) 0.2 Baso # (Auto) 0.0 Abs Immat Gran (auto) 0.08 H Absolute Neuts (auto) 5.1 Absolute Nucleated RBC 0.000 Nucleated RBC % (auto) 0.0 VBG pH VBG pCO2 VBG pO2 VBG HCO3 VBG O2 Saturation VBG Base Excess Anion Gap 12 Estim Creat Clear Calc 148.1 Estimated GFR > 60 POC Glucose 99 Random Glucose 93 Estimat Average Glucose Hemoglobin A1c % Lactic Acid 1.5 Calcium 8.6 Total Bilirubin 0.3 AST 23 ALT 17 Alkaline Phosphatase 98 Total Protein 6.8 Albumin 3.3 L Triglycerides Cholesterol LDL Cholesterol, Calc HDL Cholesterol Procalcitonin 0.06 Nasal Screen MRSA (PCR) Nasal S. aureus Screen Nasal MRSA/S.aureus Interp Hep Bs Antigen Hep Bs Antibody Hep B Core Total Ab Hepatitis C Ab (EIA) HIV 1&2 Ab/P24 Ag 4thGn 08/16/24 08/16/24 08/17/24 15:40 21:16 05:15 MCV 81.9 MCH 24.8 L MCHC 30.3 L RDW 17.0 H Plt Count 243 MPV 8.5 L Immature Gran % (Auto) Neut % (Auto) Lymph % (Auto) Vernon % (Auto) Eos % (Auto) Baso % (Auto) Lymph # (Auto) Vernon # (Auto) Eos # (Auto) Baso # (Auto) Abs Immat Gran (auto) Absolute Neuts (auto) Absolute Nucleated RBC 0.000 Nucleated RBC % (auto) 0.0 VBG pH 7.42 VBG pCO2 60 VBG pO2 51 VBG HCO3 39 H VBG O2 Saturation 79.0 VBG Base Excess 13.0 Anion Gap 13 Estim Creat Clear Calc Estimated GFR POC Glucose Random Glucose Estimat Average Glucose Hemoglobin A1c % Lactic Acid Calcium Total Bilirubin AST ALT Alkaline Phosphatase Total Protein Albumin Triglycerides Cholesterol LDL Cholesterol, Calc HDL Cholesterol Procalcitonin Nasal Screen MRSA (PCR) POSITIVE A Nasal S. aureus Screen POSITIVE A Nasal MRSA/S.aureus Interp SEE NOTE Hep Bs Antigen Hep Bs Antibody Hep B Core Total Ab Hepatitis C Ab (EIA) HIV 1&2 Ab/P24 Ag 4thGn 08/17/24 08/17/24 08/17/24 05:15 05:15 05:15 MCV MCH MCHC RDW Plt Count MPV Immature Gran % (Auto) Neut % (Auto) Lymph % (Auto) Vernon % (Auto) Eos % (Auto) Baso % (Auto) Lymph # (Auto) Vernon # (Auto) Eos # (Auto) Baso # (Auto) Abs Immat Gran (auto) Absolute Neuts (auto) Absolute Nucleated RBC Nucleated RBC % (auto) VBG pH VBG pCO2 VBG pO2 VBG HCO3 VBG O2 Saturation VBG Base Excess Anion Gap 10 L Estim Creat Clear Calc 167.5 167.5 Estimated GFR > 60 > 60 POC Glucose Random Glucose 113 Estimat Average Glucose Hemoglobin A1c % Lactic Acid Calcium Total Bilirubin AST ALT Alkaline Phosphatase Total Protein Albumin Triglycerides Cholesterol LDL Cholesterol, Calc HDL Cholesterol Procalcitonin Nasal Screen MRSA (PCR) Nasal S. aureus Screen Nasal MRSA/S.aureus Interp Hep Bs Antigen Hep Bs Antibody Hep B Core Total Ab Hepatitis C Ab (EIA) HIV 1&2 Ab/P24 Ag 4thGn 08/17/24 08/17/24 05:15 05:15 MCV MCH MCHC RDW Plt Count MPV Immature Gran % (Auto) Neut % (Auto) Lymph % (Auto) Vernon % (Auto) Eos % (Auto) Baso % (Auto) Lymph # (Auto) Vernon # (Auto) Eos # (Auto) Baso # (Auto) Abs Immat Gran (auto) Absolute Neuts (auto) Absolute Nucleated RBC Nucleated RBC % (auto) VBG pH VBG pCO2 VBG pO2 VBG HCO3 VBG O2 Saturation VBG Base Excess Anion Gap Estim Creat Clear Calc Estimated GFR POC Glucose Random Glucose 114 Estimat Average Glucose 128 Hemoglobin A1c % 6.1 H Lactic Acid Calcium 8.7 8.7 Total Bilirubin 0.3 AST 20 ALT 16 Alkaline Phosphatase 98 Total Protein 6.8 Albumin 3.3 L Triglycerides 91 Cholesterol 162 LDL Cholesterol, Calc 103 H HDL Cholesterol 41 Procalcitonin Nasal Screen MRSA (PCR) Nasal S. aureus Screen Nasal MRSA/S.aureus Interp Hep Bs Antigen Negative Hep Bs Antibody REACTIVE Hep B Core Total Ab Nonreactive Hepatitis C Ab (EIA) Nonreactive HIV 1&2 Ab/P24 Ag 4thGn Nonreactive Impressions Chest CT 08/16/24 14:33 IMPRESSION: 1. Bilateral lower lobe pneumonia. Follow-up is recommended to document resolution. 2. Hepatic steatosis. Splenomegaly. 3. Small to moderate hiatal hernia. Electronically signed by: Az Trujillo MD 08/16/2024 03:40 PM EDT [facility] 08/16/24 1. Increased hepatic echogenicity suggestive of steatosis. 2. Mild splenomegaly. Assessment and Plan (1) Pneumonia: Status: Acute Plan d2 for 39yo M with bipolar depression, asthma, and polysubstance abuse on methadone presenting with SI and hallucinations and found to be hypoxic from bilateral PNA while awaiting psychiatric bed placement. PNA - 08/16- ceftriaxone + doxycycline, trend PCT, follow BCx, MRSA swab positive and will add vancomycin 08/17-, urinary antigens for Legionella and pneumococcus pending, HIV screen negative acute hypoxic respiratory failure - supplemental O2, wean as tolerated - appears to have compensated CO2 retention; goal SaO2 88-92% asthma - prn albuterol; no wheezing at this time; continue Breo controller inhaler SI bipolar depression - sitter - continue home meds: divalproex, mirtazapine, quetiapine, fluoxetine, clonazepam, clonidine, hydroxyzine, trazodone; Psychiatry consult re polypharmacy, concern for medication interactions/side effects per patient and mother - IPLOC when medically cleared polysubstance abuse - continue methadone morbid obesity - diet/exercise counseling hepatic steatosis/splenomegaly - likely MILLAN; HBV immune, HCV negativbe VTE prophylaxis - enoxaparin dispo - psychiatry inpt In my clinical judgment, the patient requires continued inpatient hospitalization for the following reasons: IV ABX, hypoxia Total time managing care of this patient today: 45 minutes. Quality Stroke Does the patient have a stroke diagnosis?: No VTE Prior VTE?: No VTE Risk Level:: Medical - moderate - high VTE Device Contraindication: N/A - Device Ordered VTE Drug Contraindication: N/A - Med Ordered
[2024-08-17] MEDS: Sennosides/Docusate Sodium TABLET 2 TAB PO ×2 (11:37→19:54)
[2024-08-17] MEDS: polyethylene glycoL 3350 17 GM POWD.PACK PO (11:37)
--- NOTE | 2024-08-17 11:47 | PC.NURSE ---
RN called patient mother as requested,message sent to Dr. Huffman to call patient mother since she has more questions
[2024-08-17] MEDS: vancomycin/NS 2,000 MG/500 ML PLAST..BAG 250 MG IV (12:40)
--- NOTE | 2024-08-17 15:35 | MHC.RECOVRN ---
Met with pt in 351- after consult request placed to Addiction Medicine for pt requesting to stop marijuana use.? Chart review completed. Pt had presented to the ED via EMS after experiencing suicidal thoughts following smoking marijuana. Pt was assessed by the CARE team and recommendations were made for IPLOC. Pt was then transferred to medical floor for treatment of hypoxia from bilateral PNA where he is currently receiving treatment and awaiting a psych bed placement. Upon assessment pt is lying in bed he awakens to voice but frequently closes eyes and falls back to sleep. ?? T/W was able to have a brief conversation with pt. who reports he is currently receiving methadone 125mg which he reports being on for 4-5 years and that this manages his OUD. He verbalized a recent desire to stop marijuana smoking (since his latest inpt. admission). Documented is that pt. has been smoking marijuana daily for a long period of time. T/W reviewed different behavior modification techniques with pt. which could assist in stopping marijuana use such as working with a therapist and [facility]. I also encouraged pt. to discuss his desire with his [facility] so they can assist also. T/W provided pt with written resources for these interventions. Pt declined any further questions/needs at this time. ACS services available PRN
[2024-08-17 15:44] VITALS: BP 121/69; PULSE 83; RESP 18; TEMP 36.6; O2SAT 95
[2024-08-17] MEDS: cefTRIAXone sodium 1 GM VIAL IVPUSH (16:17)
[2024-08-17] MEDS: Enoxaparin Sodium 40 MG/0.4 ML SYRINGE SUBCUT (16:21)
[2024-08-17] MEDS: hydrOXYzine HCL 25 MG TABLET PO (16:29)
[2024-08-17] MEDS: OLANZapine 5 MG TABLET PO (18:00)
--- NOTE | 2024-08-17 18:06 | PC.NURSE ---
Pt with increased agitation. States he is hot and cold, the atarax didnt help me. Pacing in hallway with 1:1 sitter. Requesting additional medication for agitation- zyprexa po given with pending effect. Pt back in room, sitter present. Will monitor effectiveness
[2024-08-17 19:42] VITALS: BP 129/80; PULSE 91; RESP 18; TEMP 36.3; O2SAT 92
[2024-08-17] MEDS: Magnesium Oxide 400 MG TABLET PO (19:54)
[2024-08-17] MEDS: Famotidine 20 MG TABLET PO (19:54)
[2024-08-17] MEDS: Mirtazapine 15 MG TABLET PO (19:55)
[2024-08-17] MEDS: vancomycin HCL 1,250 MG in 0.9 % Sodium Chloride 250 ML 166.67 MG IV (22:15)
[2024-08-18 03:28] VITALS: BP 132/69; PULSE 86; RESP 16; TEMP 36.2; O2SAT 92
[2024-08-18] MEDS: OLANZapine 5 MG TABLET PO ×2 (05:46→20:26)
[2024-08-18] MEDS: Omeprazole 20 MG CAPSULE.DR PO (05:46)
[2024-08-18] MEDS: vancomycin HCL 1,250 MG in 0.9 % Sodium Chloride 250 ML 166.67 MG IV (05:48)
[2024-08-18 05:56] LABS: Hematocrit 36.3 % (42.0-52.0); Hemoglobin 11.3 g/dl (14.0-18.0); Mean Corpuscular HGB Conc 31.1 g/dl (31.0-36.0); Mean Corpuscular Hemoglobin 24.5 pg (27.0-33.0); Mean Corpuscular Volume 78.6 fL (80.0-98.0); Platelet Count 228 X10*3/uL (160-400); Red Blood Count 4.62 X10*6/uL (4.60-5.80); Red Cell Distribution Width 16.6 % (11.0-16.0); White Blood Count 10.7 X10*3/uL (4.8-10.8)
[2024-08-18 06:03] LABS: Venous Blood Gas Refer to POC result
[2024-08-18 06:04] LABS: VBG Base Excess 7.5 mmol/L; VBG HCO3 30 mmol/L (22-26); VBG pCO2 38 mmHg; VBG pH 7.51 (7.32-7.43); VBG pO2 87 mmHg
[2024-08-18 06:20] LABS: Anion Gap 13 (12-20); Blood Urea Nitrogen 13 mg/dL (9-16); Carbon Dioxide 29 mmol/L (22-29); Chloride 99 mmol/L (96-108); Creatinine Clr Calc Pharmacy 180.9; Estimated Glomerular Filt Rate > 60; Glucose Random 94 mg/dL (60-115); Potassium 3.9 mmol/L (3.3-5.1); Sodium 137 mmol/L (135-145)
[2024-08-18 06:35] LABS: Procalcitonin 0.05 ng/mL
[2024-08-18 07:44] VITALS: BP 128/74; PULSE 83; RESP 18; TEMP 36.6; O2SAT 93
[2024-08-18] MEDS: Fluticasone/Vilanterol 200/25 BLST.W.DEV 1 PUFF INHALE (08:15)
[2024-08-18 08:22] VITALS: PULSE 75; RESP 16; O2SAT 92
[2024-08-18] MEDS: Doxycycline Monohydrate 100 MG CAPSULE PO ×2 (08:34→20:26)
[2024-08-18] MEDS: QUEtiapine Fumarate 25 MG TABLET 75 MG PO ×2 (08:34→20:26)
[2024-08-18] MEDS: Aspirin Enteric Coated 81 MG TABLET.DR PO (08:34)
[2024-08-18] MEDS: Sennosides/Docusate Sodium TABLET 2 TAB PO ×2 (08:34→20:26)
[2024-08-18] MEDS: predniSONE 20 MG TABLET 40 MG PO (08:34)
[2024-08-18] MEDS: Multivitamin TABLET 1 TAB PO (08:34)
[2024-08-18] MEDS: FLUoxetine HCl 20 MG CAPSULE 60 MG PO (08:35)
[2024-08-18] MEDS: polyethylene glycoL 3350 17 GM POWD.PACK PO (08:35)
[2024-08-18] MEDS: Divalproex Sodium 250 MG TABLET.DR PO ×2 (08:35→20:26)
[2024-08-18] MEDS: methADONE HCl 20 MG/2 ML ORAL.CONC 125 MG PO (08:49)
[2024-08-18] MEDS: 0.9 % Sodium Chloride Flush 3 ML SYRINGE IVFLUSH (08:50)
--- NOTE | 2024-08-18 10:47 | HO.PM.IMPN ---
Subjective Subjective Date of Service: 08/18/24 Interval History: states breathing improving no fever c/o chills, anxiety, malaise Review of Systems Review of Systems: Yes all other systems are reviewed and are negative Physical Exam Vital Signs: Vital Signs: Last Vital Signs Temp 97.8 F 08/18/24 07:44 Pulse 75 08/18/24 08:22 Resp 16 08/18/24 08:22 BP 128/74 08/18/24 07:44 Pulse Ox 93 08/18/24 07:44 O2 Del Method Nasal Cannula 08/18/24 07:44 O2 Flow Rate 2 08/18/24 07:44 BMI result Body Mass Index 47.6 Gen: in no acute distress HEENT: sclera anicteric, moist mucus membranes Neck: supple Lungs: diminished bases bilaterally Heart: regular rate and rhythm, no murmurs Abd: soft, non-tender, non-distended, obese Ext: no edema Skin: warm/well-perfused Neuro: alert and oriented x3, no focal findings Psych: anxious Objective Data Active Medications Acetaminophen (Acetaminophen 325 Mg Tablet) 650 mg PO Q6H PRN PRN Reason: Pain, Mild 1-3,fever,headache Last Admin: 08/16/24 19:30 Dose: 650 mg Documented By: RADHA Al Hydroxide/Mg Hydroxide (Magnesium Hydrox/Alum Hydrox 30 Ml Oral.Susp) 30 ml PO Q6H PRN PRN Reason: Heartburn/Nausea Albuterol Sulfate (Albuterol Sulfate 90 Mcg 8 Gm Inhaler) 2 puff INHALE Q4H PRN PRN Reason: Shortness Of Breath Or Wheezing Aspirin (Aspirin Enteric Coated 81 Mg Tablet.) 81 mg PO DAILY [facility] Last Admin: 08/18/24 08:34 Dose: 81 mg Documented By: MARYANNE Calcium Carbonate (Calcium Carbonate 750 Mg Tab.Chew) 750 mg PO Q4H PRN PRN Reason: Heartburn Ceftriaxone Sodium (Ceftriaxone Sodium 1 Gm Vial) 1 gm IVPUSH Q24H [facility] Last Admin: 08/17/24 16:17 Dose: 1 gm Documented By: FARHAT Clonazepam (Clonazepam 0.5 Mg Tablet) 0.5 mg PO BID PRN PRN Reason: Anxiety Last Admin: 08/17/24 09:24 Dose: 0.5 mg Documented By: VIET Clonidine HCl (Clonidine Hcl 0.1 Mg Tablet) 0.1 mg PO BID PRN; Protocol PRN Reason: anxiety Divalproex Sodium (Divalproex Sodium 250 Mg Tablet.) 250 mg PO BID [facility] Last Admin: 08/18/24 08:35 Dose: 250 mg Documented By: MARYANNE Doxycycline Monohydrate (Doxycycline Monohydrate 100 Mg Capsule) 100 mg PO Q12H [facility] Last Admin: 08/18/24 08:34 Dose: 100 mg Documented By: MARYANNE Enoxaparin Sodium (Enoxaparin Sodium 40 Mg/0.4 Ml Syringe) 40 mg SUBCUT Q24H [facility] Last Admin: 08/17/24 16:21 Dose: 40 mg Documented By: FARHAT Famotidine (Famotidine 20 Mg Tablet) 20 mg PO BEDTIME [facility] Last Admin: 08/17/24 19:54 Dose: 20 mg Documented By: LUZ ELENA Ferrous Sulfate (Ferrous Sulfate 324 Mg Tablet.) 324 mg PO Q2D@0900 [facility] Last Admin: 08/17/24 08:54 Dose: 324 mg Documented By: VIET Fluoxetine HCl (Fluoxetine Hcl 20 Mg Capsule) 60 mg PO DAILY [facility] Last Admin: 08/18/24 08:35 Dose: 60 mg Documented By: MARYANNE Fluticasone/Vilanterol (Fluticasone/Vilanterol 200/25 Blst.W.Dev) 1 puff INHALE RDAILY [facility] Last Admin: 08/18/24 08:15 Dose: 1 puff Documented By: RERE Hydroxyzine HCl (Hydroxyzine Hcl 25 Mg Tablet) 25 mg PO Q6H PRN PRN Reason: mild anxiety Last Admin: 08/17/24 16:29 Dose: 25 mg Documented By: FARHAT Vancomycin HCl 1,250 mg/ (Sodium Chloride) 250 mls @ 166.667 mls/hr IV Q8H [facility] Last Infusion: 08/18/24 07:24 Dose: Infused Documented By: MARYANNE Lactulose (Lactulose 20 Gm/30 Ml Solution) 30 gm PO DAILY [facility] Lidocaine (Lidocaine 4 % Patch Adh..Patch) 1 patch TRANSDERMA DAILY [facility]; Protocol Last Admin: 08/18/24 08:45 Dose: Not Given Documented By: MARYANNE Non-Admin Reason: Patient Refused Magnesium Hydroxide (Milk Of Magnesia 30 Ml Oral.Susp) 30 ml PO DAILY PRN PRN Reason: Constipation Last Admin: 08/17/24 09:24 Dose: 30 ml Documented By: VIET Magnesium Oxide (Magnesium Oxide 400 Mg Tablet) 400 mg PO BEDTIME [facility] Last Admin: 08/17/24 19:54 Dose: 400 mg Documented By: LUZ ELENA Melatonin (Melatonin 3 Mg Tablet) 6 mg PO BEDTIME PRN PRN Reason: Insomnia Last Admin: 08/16/24 20:42 Dose: 6 mg Documented By: KAMINI Methadone HCl (Methadone Hcl 20 Mg/2 Ml Oral.Conc) 125 mg PO DAILY [facility] Last Admin: 08/18/24 08:49 Dose: 125 mg Documented By: MARYANNE Co-signed By: BRIAN Mirtazapine (Mirtazapine 15 Mg Tablet) 15 mg PO BEDTIME [facility] Last Admin: 08/17/24 19:55 Dose: 15 mg Documented By: LUZ ELENA Multivitamins/Vitamin C (Multivitamin Tablet) 1 tab PO DAILY [facility] Last Admin: 08/18/24 08:34 Dose: 1 tab Documented By: MARYANNE Nicotine (Nicotine 21 Mg Patch.Td24) 21 mg TRANSDERMA DAILY PRN PRN Reason: smoking cessation Nicotine Polacrilex (Nicotine Polacrilex 2 Mg Gum) 4 mg BUCCAL Q2H PRN PRN Reason: Nicotine Cravings Non-Formulary Medication (Uotoyi-Mkzxqlrh-Rnvditp [Creon]) 2 cap PO TID [facility] Olanzapine (Olanzapine 5 Mg Tablet) 5 mg PO TID PRN PRN Reason: agitation Last Admin: 08/18/24 05:46 Dose: 5 mg Documented By: LUZ ELENA Omeprazole (Omeprazole 20 Mg Capsule.) 20 mg PO DAILY@0630 [facility] Last Admin: 08/18/24 05:46 Dose: 20 mg Documented By: LUZ ELENA Ondansetron HCl (Ondansetron Hcl 4 Mg/2 Ml Vial) 4 mg IVPUSH Q8H PRN PRN Reason: Nausea and Vomiting Pharmacy Consult (Consult Rx Vancomycin Dosing) 1 each MISCELLANE DAILY PRN PRN Reason: Consult order Polyethylene Glycol (Polyethylene Glycol 3350 17 Gm Powd.Pack) 17 gm PO DAILY [facility] Last Admin: 08/18/24 08:35 Dose: 17 gm Documented By: MARYANNE Prednisone (Prednisone 20 Mg Tablet) 40 mg PO DAILY [facility] Last Admin: 08/18/24 08:34 Dose: 40 mg Documented By: MARYANNE Quetiapine Fumarate (Quetiapine Fumarate 25 Mg Tablet) 75 mg PO BID [facility] Last Admin: 08/18/24 08:34 Dose: 75 mg Documented By: MARYANNE Senna/Docusate Sodium (Sennosides/Docusate Sodium Tablet) 2 tab PO BID [facility] Last Admin: 08/18/24 08:34 Dose: 2 tab Documented By: MARYANNE Sodium Chloride (0.9 % Sodium Chloride Flush 3 Ml Syringe) 3 ml IVFLUSH QSHIFT [facility] Last Admin: 08/18/24 08:50 Dose: 3 ml Documented By: MARYANNE Trazodone HCl (Trazodone Hcl 50 Mg Tablet) 50 mg PO BEDTIME MRX1 PRN PRN Reason: Insomnia Last Admin: 08/16/24 20:47 Dose: 50 mg Documented By: LAURENQC Labs 08/18/24 05:49 08/18/24 05:49 Labs: Laboratory Results - last 24 hr 08/18/24 08/18/24 05:49 05:54 MCV 78.6 L MCH 24.5 L MCHC 31.1 RDW 16.6 H Plt Count 228 MPV 8.0 L Absolute Nucleated RBC 0.000 Nucleated RBC % (auto) 0.0 VBG pH 7.51 H VBG pCO2 38 VBG pO2 87 VBG HCO3 30 H VBG O2 Saturation 99.0 VBG Base Excess 7.5 Anion Gap 13 Estim Creat Clear Calc 180.9 Estimated GFR > 60 Random Glucose 94 Calcium 9.0 Procalcitonin 0.05 TSH 1.30 Microbiology Microbiology Results: Microbiology 08/16/24 15:31 Blood Culture - Preliminary Blood - Venous No growth after 24 hours. 08/16/24 15:31 Blood Culture - Preliminary Blood - Venous No growth after 24 hours. Assessment and Plan (1) Pneumonia: Status: Acute Plan d3 for 39yo M with bipolar depression, asthma, and polysubstance abuse on methadone presenting with SI and hallucinations and found to be hypoxic from bilateral PNA while awaiting psychiatric bed placement. PNA - 08/16- ceftriaxone + doxycycline, trend PCT, follow BCx, MRSA swab positive and added vancomycin 08/17-, urinary antigens for Legionella and pneumococcus pending, HIV screen negative acute hypoxic respiratory failure - supplemental O2, wean as tolerated - appears to have compensated CO2 retention; goal SaO2 88-92% acute exacerbation moderate persistent asthma - prednisone 08/17-08/21; prn albuterol; continue Breo SI bipolar depression - sitter - continue home meds: divalproex, mirtazapine, quetiapine, fluoxetine, clonazepam, clonidine, hydroxyzine, trazodone; Psychiatry consult requested regarding polypharmacy, concern for medication interactions/side effects per patient and mother; Psychiatry deferring medication changes until pt is admitted to psychiatry floor - IPLOC when medically cleared polysubstance abuse - continue methadone; Addiction Medicine consult re dosing/timing morbid obesity - diet/exercise counseling hepatic steatosis/splenomegaly - likely MILLAN; HBV immune, HCV negativbe VTE prophylaxis - enoxaparin dispo - psychiatry inpt In my clinical judgment, the patient requires continued inpatient hospitalization for the following reasons: IV ABX, hypoxia Total time managing care of this patient today: 35 minutes. Quality Stroke Does the patient have a stroke diagnosis?: No VTE Prior VTE?: No VTE Risk Level:: Medical - moderate - high VTE Device Contraindication: N/A - Device Ordered VTE Drug Contraindication: N/A - Med Ordered
[2024-08-18] MEDS: Lactulose 20 GM/30 ML SOLUTION 30 GM PO (11:18)
--- NOTE | 2024-08-18 11:33 | HO.ADDICT_ITS ---
History of Present Illness Date of Service: 08/18/2024 Chief Complaint: Hypoxia,Pneumonia Reason for Consult: methadone dosing Sources of Information: patient interviewed and chart reviewed HPI Narrative: Patient is a 39 year old male who presented to [facility] [place] ED with SI and was awaiting psychiatric admission, when he was noted to be hypoxic and CXR showing BLL pneumonia --as a result admitted to medical floor Consult requested as patient has been reporting chills and sweating in the afternoons, ? methadone dose adjustment. Patient seen in room 351, he is awake and alert. He reports treatment for OUD for about 4 years at [facility] OTP Methadone dose 125mg --at this dose for 1-2 years, per his report. Reports abstinence from opiates for 3 years. Discussed reports of chills and periodic diaphoresis --he reported it happens in the afternoons, then began to name numerous other concerns (needing a colonscopy, needing dentures..)--required some gentle redirection to try and focus on methadone. He denies any history of spilt dosing Unclear if chills and sweating are new or ongoing--he can not recall if this has been happening at home. Past Psychiatric History: Psychiatrist: Curtis Shelton [facility] Therapist: Clifton Motta [facility] Denies history of SA. Reports history of punching self good states he has not done this in years. He reports his last psychiatric admission being in 2013. History of detox admissions and section 35. Review of Systems Constitutional: Reports as per HPI Diagnostics Vital Signs (24Hr): Vital Signs - 24 hr 08/17/24 15:44 08/17/24 19:42 08/18/24 03:28 Temperature 97.9 F 97.4 F 97.2 F Pulse Rate 83 91 86 Respiratory Rate 18 18 16 Blood Pressure 121/69 129/80 132/69 Pulse Oximetry 95 92 92 Oxygen Delivery Method Aerosol Mask Room Air Nasal Cannula Oxygen Flow Rate 2 2.0 08/18/24 07:44 08/18/24 08:22 Temperature 97.8 F Pulse Rate 83 75 Respiratory Rate 18 16 Blood Pressure 128/74 Pulse Oximetry 93 Oxygen Delivery Method Nasal Cannula Oxygen Flow Rate 2 BMI result Body Mass Index 47.6 Labs 08/18/24 05:49 08/18/24 05:49 Labs: Laboratory Results - last 48 hr 08/16/24 08/16/24 08/16/24 12:46 15:31 15:40 WBC 7.9 RBC 4.26 L Hgb 10.6 L Hct 35.1 L MCV 82.4 MCH 24.9 L MCHC 30.2 L RDW 16.9 H Plt Count 229 MPV 8.4 L Immature Gran % (Auto) 1.0 H Neut % (Auto) 65.3 Lymph % (Auto) 22.0 Brule % (Auto) 8.5 Eos % (Auto) 2.8 Baso % (Auto) 0.4 Lymph # (Auto) 1.7 Brule # (Auto) 0.7 Eos # (Auto) 0.2 Baso # (Auto) 0.0 Abs Immat Gran (auto) 0.08 H Absolute Neuts (auto) 5.1 Absolute Nucleated RBC 0.000 Nucleated RBC % (auto) 0.0 VBG pH 7.42 VBG pCO2 60 VBG pO2 51 VBG HCO3 39 H VBG O2 Saturation 79.0 VBG Base Excess 13.0 Sodium 137 Potassium 4.1 Chloride 97 Carbon Dioxide 32 H Anion Gap 12 BUN 12 Creatinine 0.90 Estim Creat Clear Calc 148.1 Estimated GFR > 60 Random Glucose 93 Estimat Average Glucose Hemoglobin A1c % Lactic Acid 1.5 Calcium 8.6 Total Bilirubin 0.3 AST 23 ALT 17 Alkaline Phosphatase 98 Total Protein 6.8 Albumin 3.3 L Triglycerides Cholesterol LDL Cholesterol, Calc HDL Cholesterol Procalcitonin 0.06 TSH Nasal Screen MRSA (PCR) Nasal S. aureus Screen Nasal MRSA/S.aureus Interp Hep Bs Antigen Hep Bs Antibody Hep B Core Total Ab Hepatitis C Ab (EIA) HIV 1&2 Ab/P24 Ag 4thGn 08/16/24 08/17/24 08/17/24 21:16 05:15 05:15 WBC 6.4 RBC 4.36 L Hgb 10.8 L Hct 35.7 L MCV 81.9 MCH 24.8 L MCHC 30.3 L RDW 17.0 H Plt Count 243 MPV 8.5 L Immature Gran % (Auto) Neut % (Auto) Lymph % (Auto) Brule % (Auto) Eos % (Auto) Baso % (Auto) Lymph # (Auto) Brule # (Auto) Eos # (Auto) Baso # (Auto) Abs Immat Gran (auto) Absolute Neuts (auto) Absolute Nucleated RBC 0.000 Nucleated RBC % (auto) 0.0 VBG pH VBG pCO2 VBG pO2 VBG HCO3 VBG O2 Saturation VBG Base Excess Sodium 138 138 Potassium 4.2 Chloride Carbon Dioxide Anion Gap BUN Creatinine Estim Creat Clear Calc Estimated GFR Random Glucose Estimat Average Glucose Hemoglobin A1c % Lactic Acid Calcium Total Bilirubin AST ALT Alkaline Phosphatase Total Protein Albumin Triglycerides Cholesterol LDL Cholesterol, Calc HDL Cholesterol Procalcitonin TSH Nasal Screen MRSA (PCR) POSITIVE A Nasal S. aureus Screen POSITIVE A Nasal MRSA/S.aureus Interp SEE NOTE Hep Bs Antigen Hep Bs Antibody Hep B Core Total Ab Hepatitis C Ab (EIA) HIV 1&2 Ab/P24 Ag 4thGn 08/17/24 08/17/24 08/17/24 05:15 05:15 05:15 WBC RBC Hgb Hct MCV MCH MCHC RDW Plt Count MPV Immature Gran % (Auto) Neut % (Auto) Lymph % (Auto) Brule % (Auto) Eos % (Auto) Baso % (Auto) Lymph # (Auto) Brule # (Auto) Eos # (Auto) Baso # (Auto) Abs Immat Gran (auto) Absolute Neuts (auto) Absolute Nucleated RBC Nucleated RBC % (auto) VBG pH VBG pCO2 VBG pO2 VBG HCO3 VBG O2 Saturation VBG Base Excess Sodium Potassium 4.2 Chloride 98 99 Carbon Dioxide 31 H 33 H Anion Gap 13 BUN Creatinine Estim Creat Clear Calc Estimated GFR Random Glucose Estimat Average Glucose Hemoglobin A1c % Lactic Acid Calcium Total Bilirubin AST ALT Alkaline Phosphatase Total Protein Albumin Triglycerides Cholesterol LDL Cholesterol, Calc HDL Cholesterol Procalcitonin TSH Nasal Screen MRSA (PCR) Nasal S. aureus Screen Nasal MRSA/S.aureus Interp Hep Bs Antigen Hep Bs Antibody Hep B Core Total Ab Hepatitis C Ab (EIA) HIV 1&2 Ab/P24 Ag 4thGn 08/17/24 08/17/24 08/17/24 05:15 05:15 05:15 WBC RBC Hgb Hct MCV MCH MCHC RDW Plt Count MPV Immature Gran % (Auto) Neut % (Auto) Lymph % (Auto) Brule % (Auto) Eos % (Auto) Baso % (Auto) Lymph # (Auto) Brule # (Auto) Eos # (Auto) Baso # (Auto) Abs Immat Gran (auto) Absolute Neuts (auto) Absolute Nucleated RBC Nucleated RBC % (auto) VBG pH VBG pCO2 VBG pO2 VBG HCO3 VBG O2 Saturation VBG Base Excess Sodium Potassium Chloride Carbon Dioxide Anion Gap 10 L BUN 14 14 Creatinine 0.81 0.81 Estim Creat Clear Calc 167.5 Estimated GFR Random Glucose Estimat Average Glucose Hemoglobin A1c % Lactic Acid Calcium Total Bilirubin AST ALT Alkaline Phosphatase Total Protein Albumin Triglycerides Cholesterol LDL Cholesterol, Calc HDL Cholesterol Procalcitonin TSH Nasal Screen MRSA (PCR) Nasal S. aureus Screen Nasal MRSA/S.aureus Interp Hep Bs Antigen Hep Bs Antibody Hep B Core Total Ab Hepatitis C Ab (EIA) HIV 1&2 Ab/P24 Ag 4thGn 08/17/24 08/17/24 08/17/24 05:15 05:15 05:15 WBC RBC Hgb Hct MCV MCH MCHC RDW Plt Count MPV Immature Gran % (Auto) Neut % (Auto) Lymph % (Auto) Brule % (Auto) Eos % (Auto) Baso % (Auto) Lymph # (Auto) Brule # (Auto) Eos # (Auto) Baso # (Auto) Abs Immat Gran (auto) Absolute Neuts (auto) Absolute Nucleated RBC Nucleated RBC % (auto) VBG pH VBG pCO2 VBG pO2 VBG HCO3 VBG O2 Saturation VBG Base Excess Sodium Potassium Chloride Carbon Dioxide Anion Gap BUN Creatinine Estim Creat Clear Calc 167.5 Estimated GFR > 60 > 60 Random Glucose 113 114 Estimat Average Glucose 128 Hemoglobin A1c % 6.1 H Lactic Acid Calcium 8.7 Total Bilirubin AST ALT Alkaline Phosphatase Total Protein Albumin Triglycerides Cholesterol LDL Cholesterol, Calc HDL Cholesterol Procalcitonin TSH Nasal Screen MRSA (PCR) Nasal S. aureus Screen Nasal MRSA/S.aureus Interp Hep Bs Antigen Hep Bs Antibody Hep B Core Total Ab Hepatitis C Ab (EIA) HIV 1&2 Ab/P24 Ag 4thGn 08/17/24 08/18/24 08/18/24 05:15 05:49 05:54 WBC 10.7 RBC 4.62 Hgb 11.3 L Hct 36.3 L MCV 78.6 L MCH 24.5 L MCHC 31.1 RDW 16.6 H Plt Count 228 MPV 8.0 L Immature Gran % (Auto) Neut % (Auto) Lymph % (Auto) Brule % (Auto) Eos % (Auto) Baso % (Auto) Lymph # (Auto) Brule # (Auto) Eos # (Auto) Baso # (Auto) Abs Immat Gran (auto) Absolute Neuts (auto) Absolute Nucleated RBC 0.000 Nucleated RBC % (auto) 0.0 VBG pH 7.51 H VBG pCO2 38 VBG pO2 87 VBG HCO3 30 H VBG O2 Saturation 99.0 VBG Base Excess 7.5 Sodium 137 Potassium 3.9 Chloride 99 Carbon Dioxide 29 Anion Gap 13 BUN 13 Creatinine 0.75 Estim Creat Clear Calc 180.9 Estimated GFR > 60 Random Glucose 94 Estimat Average Glucose Hemoglobin A1c % Lactic Acid Calcium 8.7 9.0 Total Bilirubin 0.3 AST 20 ALT 16 Alkaline Phosphatase 98 Total Protein 6.8 Albumin 3.3 L Triglycerides 91 Cholesterol 162 LDL Cholesterol, Calc 103 H HDL Cholesterol 41 Procalcitonin 0.05 TSH 1.30 Nasal Screen MRSA (PCR) Nasal S. aureus Screen Nasal MRSA/S.aureus Interp Hep Bs Antigen Negative Hep Bs Antibody REACTIVE Hep B Core Total Ab Nonreactive Hepatitis C Ab (EIA) Nonreactive HIV 1&2 Ab/P24 Ag 4thGn Nonreactive Imaging Radiology Impressions: ITS Impressions Chest CT 08/16/24 14:33 IMPRESSION: 1. Bilateral lower lobe pneumonia. Follow-up is recommended to document resolution. 2. Hepatic steatosis. Splenomegaly. 3. Small to moderate hiatal hernia. Electronically signed by: Az Trujillo MD 08/16/2024 03:40 PM EDT RP Mental Status Exam Mental Status Exam Level of Consciousness: Awake, Appropriate and Alert Patient Behavior: Talkative Affect Description: Calm Speech Pattern: Clear Thought Content: positive for [place] and positive for Tangential Judgement: Fair Medications Medications Current Medications Acetaminophen (Acetaminophen 325 Mg Tablet) 650 mg PO Q6H PRN PRN Reason: Pain, Mild 1-3,fever,headache Last Admin: 08/16/24 19:30 Dose: 650 mg Al Hydroxide/Mg Hydroxide (Magnesium Hydrox/Alum Hydrox 30 Ml Oral.Susp) 30 ml PO Q6H PRN PRN Reason: Heartburn/Nausea Albuterol Sulfate (Albuterol Sulfate 90 Mcg 8 Gm Inhaler) 2 puff INHALE Q4H PRN PRN Reason: Shortness Of Breath Or Wheezing Aspirin (Aspirin Enteric Coated 81 Mg Tablet.Dr) 81 mg PO DAILY SHEELA Last Admin: 08/18/24 08:34 Dose: 81 mg Calcium Carbonate (Calcium Carbonate 750 Mg Tab.Chew) 750 mg PO Q4H PRN PRN Reason: Heartburn Ceftriaxone Sodium (Ceftriaxone Sodium 1 Gm Vial) 1 gm IVPUSH Q24H [facility] Last Admin: 08/17/24 16:17 Dose: 1 gm Clonazepam (Clonazepam 0.5 Mg Tablet) 0.5 mg PO BID PRN PRN Reason: Anxiety Last Admin: 08/17/24 09:24 Dose: 0.5 mg Clonidine HCl (Clonidine Hcl 0.1 Mg Tablet) 0.1 mg PO BID PRN; Protocol PRN Reason: anxiety Divalproex Sodium (Divalproex Sodium 250 Mg Tablet.Dr) 250 mg PO BID [facility] Last Admin: 08/18/24 08:35 Dose: 250 mg Doxycycline Monohydrate (Doxycycline Monohydrate 100 Mg Capsule) 100 mg PO Q12H [facility] Last Admin: 08/18/24 08:34 Dose: 100 mg Enoxaparin Sodium (Enoxaparin Sodium 40 Mg/0.4 Ml Syringe) 40 mg SUBCUT Q24H [facility] Last Admin: 08/17/24 16:21 Dose: 40 mg Famotidine (Famotidine 20 Mg Tablet) 20 mg PO BEDTIME [facility] Last Admin: 08/17/24 19:54 Dose: 20 mg Ferrous Sulfate (Ferrous Sulfate 324 Mg Tablet.) 324 mg PO Q2D@0900 [facility] Last Admin: 08/17/24 08:54 Dose: 324 mg Fluoxetine HCl (Fluoxetine Hcl 20 Mg Capsule) 60 mg PO DAILY [facility] Last Admin: 08/18/24 08:35 Dose: 60 mg Fluticasone/Vilanterol (Fluticasone/Vilanterol 200/25 Blst.W.Dev) 1 puff INHALE RDAILY [facility] Last Admin: 08/18/24 08:15 Dose: 1 puff Hydroxyzine HCl (Hydroxyzine Hcl 25 Mg Tablet) 25 mg PO Q6H PRN PRN Reason: mild anxiety Last Admin: 08/17/24 16:29 Dose: 25 mg Vancomycin HCl 1,250 mg/ (Sodium Chloride) 250 mls @ 166.667 mls/hr IV Q8H [facility] Last Infusion: 08/18/24 07:24 Dose: Infused Lactulose (Lactulose 20 Gm/30 Ml Solution) 30 gm PO DAILY [facility] Last Admin: 08/18/24 11:18 Dose: 30 gm Lidocaine (Lidocaine 4 % Patch Adh..Patch) 1 patch TRANSDERMA DAILY [facility]; Protocol Last Admin: 08/18/24 08:45 Dose: Not Given Magnesium Hydroxide (Milk Of Magnesia 30 Ml Oral.Susp) 30 ml PO DAILY PRN PRN Reason: Constipation Last Admin: 08/17/24 09:24 Dose: 30 ml Magnesium Oxide (Magnesium Oxide 400 Mg Tablet) 400 mg PO BEDTIME [facility] Last Admin: 08/17/24 19:54 Dose: 400 mg Melatonin (Melatonin 3 Mg Tablet) 6 mg PO BEDTIME PRN PRN Reason: Insomnia Last Admin: 08/16/24 20:42 Dose: 6 mg Methadone HCl (Methadone Hcl 20 Mg/2 Ml Oral.Conc) 125 mg PO DAILY [facility] Last Admin: 08/18/24 08:49 Dose: 125 mg Mirtazapine (Mirtazapine 15 Mg Tablet) 15 mg PO BEDTIME [facility] Last Admin: 08/17/24 19:55 Dose: 15 mg Multivitamins/Vitamin C (Multivitamin Tablet) 1 tab PO DAILY [facility] Last Admin: 08/18/24 08:34 Dose: 1 tab Nicotine (Nicotine 21 Mg Patch.Td24) 21 mg TRANSDERMA DAILY PRN PRN Reason: smoking cessation Nicotine Polacrilex (Nicotine Polacrilex 2 Mg Gum) 4 mg BUCCAL Q2H PRN PRN Reason: Nicotine Cravings Non-Formulary Medication (Wiphvh-[id number]-[id number] [Creon]) 2 cap PO TID [facility] Olanzapine (Olanzapine 5 Mg Tablet) 5 mg PO TID PRN PRN Reason: agitation Last Admin: 08/18/24 05:46 Dose: 5 mg Omeprazole (Omeprazole 20 Mg Capsule.Dr) 20 mg PO DAILY@0630 [facility] Last Admin: 08/18/24 05:46 Dose: 20 mg Ondansetron HCl (Ondansetron Hcl 4 Mg/2 Ml Vial) 4 mg IVPUSH Q8H PRN PRN Reason: Nausea and Vomiting Pharmacy Consult (Consult Rx Vancomycin Dosing) 1 each MISCELLANE DAILY PRN PRN Reason: Consult order Polyethylene Glycol (Polyethylene Glycol 3350 17 Gm Powd.Pack) 17 gm PO DAILY [facility] Last Admin: 08/18/24 08:35 Dose: 17 gm Prednisone (Prednisone 20 Mg Tablet) 40 mg PO DAILY [facility] Last Admin: 08/18/24 08:34 Dose: 40 mg Quetiapine Fumarate (Quetiapine Fumarate 25 Mg Tablet) 75 mg PO BID [facility] Last Admin: 08/18/24 08:34 Dose: 75 mg Senna/Docusate Sodium (Sennosides/Docusate Sodium Tablet) 2 tab PO BID [facility] Last Admin: 08/18/24 08:34 Dose: 2 tab Sodium Chloride (0.9 % Sodium Chloride Flush 3 Ml Syringe) 3 ml IVFLUSH QSHIFT [facility] Last Admin: 08/18/24 08:50 Dose: 3 ml Trazodone HCl (Trazodone Hcl 50 Mg Tablet) 50 mg PO BEDTIME MRX1 PRN PRN Reason: Insomnia Last Admin: 08/16/24 20:47 Dose: 50 mg Allergies Allergies Allergy/AdvReac Type Severity Reaction Status Date / Time Penicillins [PENICILLINS] Allergy Unknown RASH Verified 08/15/24 09:34 Assessment & Plan Assessment & Plan (1) Opioid use disorder, severe, in early remission: Status: Acute Code(s): F11.21 - Opioid dependence, in remission Assessment and Plan: * will split methadone dose tomorrow (08/19) 100mg in AM and 25mg 1600, can combine dose again prior to discharge home * awaiting psychiatric admission Total time managing care of this patient today __35__ minutes. PMFSH Past Medical History Medical History (Updated 08/18/24 @ 12:10 by Yesica Ray CNP) Opioid use disorder, severe, in early remission Suicidal ideation Exocrine pancreatic insufficiency Polysubstance abuse No known health problems Social History Social History Household Members: Family Housing: Condominium Do you presently have visiting nurse or other home services: No Alcohol intake: former Patient Tobacco Use Status: Former Tobacco user Substance Use Type: Marijuana Advance Directives Date on File: 03/15/24 service: No Sexual orientation: Straight/Heterosexual
--- NOTE | 2024-08-18 12:14 | MHC.CM.PN ---
PT HAS A SITTER LIVES WITH MOTHER WILL BE GOING TO [facility] WHEN MEDICALLY STABLE
[2024-08-18] MEDS: cloNIDine HCL 0.1 MG TABLET PO (13:54)
[2024-08-18] MEDS: vancomycin HCL 1,250 MG in 0.9 % Sodium Chloride 250 ML 166.7 MG IV (14:53)
[2024-08-18 16:34] VITALS: BP 127/74; PULSE 75; RESP 20; TEMP 36.1; O2SAT 94
[2024-08-18] MEDS: Enoxaparin Sodium 40 MG/0.4 ML SYRINGE SUBCUT (17:15)
[2024-08-18] MEDS: cefTRIAXone sodium 1 GM VIAL IVPUSH (17:15)
[2024-08-18 19:02] VITALS: BP 133/88; PULSE 77; RESP 20; TEMP 36.6; O2SAT 94
[2024-08-18 20:25] LABS: Glucose, Whole Blood 114 mg/dL (60-115)
[2024-08-18] MEDS: Famotidine 20 MG TABLET PO (20:26)
[2024-08-18] MEDS: Magnesium Oxide 400 MG TABLET PO (20:26)
[2024-08-18] MEDS: Mirtazapine 15 MG TABLET PO (20:26)
[2024-08-18 20:57] LABS: Vancomycin Random 21.8 mcg/mL (15-20)
--- NOTE | 2024-08-18 21:15 | HE.PHANOTE ---
RE: VANCO DOSING Trough came back as 21.8 mg/L. Dose is decreased to 1500 mg q12h, starting on 08/19/24 @0600. Nex trough is scheduled for 08/19/24 @1600.
[2024-08-19] MEDS: 0.9 % Sodium Chloride Flush 3 ML SYRINGE IVFLUSH ×3 (00:11→20:03)
[2024-08-19 03:31] VITALS: BP 129/83; PULSE 70; RESP 16; TEMP 36.3; O2SAT 94
[2024-08-19 06:07] LABS: Creatinine Clr Calc Pharmacy 157.7; Estimated Glomerular Filt Rate > 60
[2024-08-19] MEDS: vancomycin HCL 1,500 MG in 0.9 % Sodium Chloride 500 ML 333.33 MG IV ×2 (06:33→17:14)
[2024-08-19] MEDS: Omeprazole 20 MG CAPSULE.DR PO (06:34)
[2024-08-19 07:52] VITALS: BP 134/73; PULSE 80; RESP 18; TEMP 36.4; O2SAT 95
[2024-08-19] MEDS: Fluticasone/Vilanterol 200/25 BLST.W.DEV 1 PUFF INHALE (08:05)
[2024-08-19 08:06] VITALS: PULSE 71; RESP 16; O2SAT 96
[2024-08-19] MEDS: methADONE HCl 20 MG/2 ML ORAL.CONC 100 MG PO (08:26)
[2024-08-19] MEDS: FLUoxetine HCl 20 MG CAPSULE 60 MG PO (08:28)
[2024-08-19] MEDS: Doxycycline Monohydrate 100 MG CAPSULE PO ×2 (08:28→20:01)
[2024-08-19] MEDS: Divalproex Sodium 250 MG TABLET.DR PO ×2 (08:28→20:01)
[2024-08-19] MEDS: Ferrous Sulfate 324 MG TABLET.DR PO (08:28)
[2024-08-19] MEDS: QUEtiapine Fumarate 25 MG TABLET 75 MG PO ×2 (08:28→20:01)
[2024-08-19] MEDS: predniSONE 20 MG TABLET 40 MG PO (08:29)
[2024-08-19] MEDS: Aspirin Enteric Coated 81 MG TABLET.DR PO (08:29)
[2024-08-19] MEDS: polyethylene glycoL 3350 17 GM POWD.PACK PO (08:29)
[2024-08-19] MEDS: Sennosides/Docusate Sodium TABLET 2 TAB PO ×2 (08:29→20:01)
[2024-08-19] MEDS: Multivitamin TABLET 1 TAB PO (08:29)
[2024-08-19] MEDS: Lactulose 20 GM/30 ML SOLUTION 30 GM PO (08:31)
[2024-08-19] MEDS: clonazePAM 0.5 MG TABLET PO ×2 (08:35→20:03)
[2024-08-19] MEDS: ondansetron HCL 4 MG/2 ML VIAL IVPUSH (08:42)
--- NOTE | 2024-08-19 10:58 | PM.DS ---
DS: Providers Provider Date of Service: 08/19/24 Date of admission: 08/16/24 16:14 Date of discharge: 08/19/24 Primary care physician: Unknown Physician Consults: 08/15/24 09:46 ED CARE Team Crisis Consult Stat Comment: Reason for consultation: +SI, +AH/VH 08/16/24 16:21 Consult for Sitter Routine Reason for consultation: SI 08/16/24 20:33 Addiction Medicine Provider Routine Consulting Provider: Addiction Covering Reason for consultation: daily majiuana use and wants to quit. also discuss methadone dosing 08/17/24 10:19 Consult to Psychiatry Routine Consulting [place] [facility] [place] [facility] [place] Reason for consultation: polypharmacy, c/o hot flashes/shakiness 08/19/24 08:51 Inpt CARE Team Crisis Consult Routine Comment: Reason for consultation: pneumonia, medically cleared for psychiatr, SI DS: Diagnosis Discharge Diagnosis (1) Opioid use disorder, severe, in early remission: Status: Acute (2) Suicidal ideation: Status: Acute (3) Anxiety: Status: Acute (4) Hallucinations: Status: Acute (5) Morbid obesity due to excess calories: Status: Acute (6) Pneumonia: Status: Acute (7) Acute respiratory failure with hypoxia: Status: Acute (8) Acute exacerbation of moderate persistent extrinsic asthma: Status: Acute DS: Summary Hospital Course Hospital Course: from my admission H+P, 08/16/24: 39yo M with bipolar depression, asthma, and polysubstance abuse who presented to the ED via EMS with suicidal ideation and auditory and visual hallucinations. Reports daily cough which he attributes to smoking. No purulent sputum and denies wheezing. Was awaiting inpatient psychiatry bed but then found to be hypoxic with SaO2 88%. CXR with bilateral lower lobe pneumonia and he was given levofloxacin and doxycycline. He reportedly had a rash with penicillin in the past but does not remember any details of that. Upon review he had ceftriaxone in 2019 without issues. He denies fever or shaking chills. Endorses some leg swelling. 39yo M with bipolar depression, asthma, and polysubstance abuse on methadone presenting with SI and hallucinations and found to be hypoxic from bilateral PNA while awaiting psychiatric bed placement. Hospital course by problem: PNA - Treated 08/16-08/19 with ceftriaxone + doxycycline; also vancomycin 08/17-08/19 due to positive MRSA swab. PCT low and blood cultures negative. HIV negative. Discharged on cefuroxime + doxycycline for 3 more days. acute hypoxic respiratory failure - weaned off oxygen; appears to have compensated CO2 retention; goal SaO2 88-92% acute exacerbation moderate persistent asthma - treated with prednisone 08/17-08/19 and discharged on 3 more days of prednisone SI bipolar depression - had a sitter while hospitalized; continued home meds: divalproex, mirtazapine, quetiapine, fluoxetine, clonazepam, clonidine, hydroxyzine, trazodone; Psychiatry deferring medication changes until he goes to the psychiatric floor, to which he was transferred on 08/19/24 polysubstance abuse - continued methadone; Addiction Medicine consulted and trialing splitting the 125 mg/d daily dose to 100 mg qam + 25 mg qpm Time Attestation Discharge Coordination Time (in mins): 35 Quality: Safe Use of Opioids Does Pt have an Active Cancer Diagnosis on the Problem List?: No Quality: Stroke Does the patient have a stroke diagnosis?: No Physical Exam Vital Signs: Vital Signs: Last Vital Signs Temp 97.6 F 08/19/24 07:52 Pulse 71 08/19/24 08:06 Resp 16 08/19/24 08:06 BP 134/73 08/19/24 07:52 Pulse Ox 95 08/19/24 07:52 O2 Del Method Nasal Cannula 08/19/24 07:52 O2 Flow Rate 2 08/19/24 07:52 BMI result Body Mass Index 47.6 Gen: in no acute distress HEENT: sclera anicteric, moist mucus membranes Neck: supple Lungs: clear Heart: regular rate and rhythm, no murmurs Abd: soft, non-tender, non-distended, obese Ext: no edema Skin: warm/well-perfused Neuro: alert and oriented x3, no focal findings Psych: anxious DS: Data Data Completed and Pending Completed studies during hospitalization [Text1]: Laboratory Results WBC 10.7 X10*3/uL (4.8-10.8) 08/18/24 05:49 RBC 4.62 X10*6/uL (4.60-5.80) 08/18/24 05:49 Hgb 11.3 g/dl (14.0-18.0) L 08/18/24 05:49 Hct 36.3 % (42.0-52.0) L 08/18/24 05:49 MCV 78.6 fL (80.0-98.0) L 08/18/24 05:49 MCH 24.5 pg (27.0-33.0) L 08/18/24 05:49 MCHC 31.1 g/dl (31.0-36.0) 08/18/24 05:49 RDW 16.6 % (11.0-16.0) H 08/18/24 05:49 Plt Count 228 X10*3/uL (160-400) 08/18/24 05:49 MPV 8.0 fL (9.4-12.4) L 08/18/24 05:49 Immature Gran % (Auto) 1.0 % (0.0-0.4) H 08/16/24 15:31 Neut % (Auto) 65.3 % (45-73) 08/16/24 15:31 Lymph % (Auto) 22.0 % (20-40) 08/16/24 15:31 [place] % (Auto) 8.5 % (2-11) 08/16/24 15:31 Eos % (Auto) 2.8 % (0-4) 08/16/24 15:31 Baso % (Auto) 0.4 % (0-2) 08/16/24 15:31 Lymph # (Auto) 1.7 X10*3/uL (1.2-4.9) 08/16/24 15:31 [place] # (Auto) 0.7 X10*3/uL (0.1-1.2) 08/16/24 15:31 Eos # (Auto) 0.2 X10*3/uL (0.0-0.4) 08/16/24 15:31 Baso # (Auto) 0.0 X10*3/uL (0.0-0.2) 08/16/24 15:31 Abs Immat Gran (auto) 0.08 X10*3/uL (0.00-0.03) H 08/16/24 15:31 Absolute Neuts (auto) 5.1 x10*3/uL (2.0-8.3) 08/16/24 15:31 Absolute Nucleated RBC 0.000 X10*3/uL (0.0-0.012) 08/18/24 05:49 Nucleated RBC % (auto) 0.0 /100WBC (0.0-0.2) 08/18/24 05:49 VBG pH 7.51 (7.32-7.43) H 08/18/24 05:54 VBG pCO2 38 mmHg 08/18/24 05:54 VBG pO2 87 mmHg 08/18/24 05:54 VBG HCO3 30 mmol/L (22-26) H 08/18/24 05:54 VBG O2 Saturation 99.0 % 08/18/24 05:54 VBG Base Excess 7.5 mmol/L 08/18/24 05:54 Sodium 137 mmol/L (135-145) 08/18/24 05:49 Potassium 3.9 mmol/L (3.3-5.1) 08/18/24 05:49 Chloride 99 mmol/L (96-108) 08/18/24 05:49 Carbon Dioxide 29 mmol/L (22-29) 08/18/24 05:49 Anion Gap 13 (12-20) 08/18/24 05:49 BUN 13 mg/dL (9-16) 08/18/24 05:49 Creatinine 0.86 mg/dL (0.5-1.4) 08/19/24 05:07 Estim Creat Clear Calc 157.7 08/19/24 05:07 Estimated GFR > 60 08/19/24 05:07 POC Glucose 114 mg/dL (60-115) 08/18/24 20:21 Random Glucose 94 mg/dL (60-115) 08/18/24 05:49 Estimat Average Glucose 128 mg/dL 08/17/24 05:15 Hemoglobin A1c % 6.1 % (<6.0) H 08/17/24 05:15 Lactic Acid 1.5 mmol/L (0.5-2.0) 08/16/24 15:31 Calcium 9.0 mg/dL (8.4-10.2) 08/18/24 05:49 Total Bilirubin 0.3 mg/dL (0.0-1.0) 08/17/24 05:15 AST 20 U/L (5-37) 08/17/24 05:15 ALT 16 U/L (0-40) 08/17/24 05:15 Alkaline Phosphatase 98 U/L (39-117) 08/17/24 05:15 B-Natriuretic Peptide 25 pg/mL (<100) 08/15/24 10:36 Total Protein 6.8 g/dL (6.5-8.0) 08/17/24 05:15 Albumin 3.3 g/dL (3.5-5.0) L 08/17/24 05:15 Triglycerides 91 mg/dL (<150) 08/17/24 05:15 Cholesterol 162 mg/dL (<200) 08/17/24 05:15 LDL Cholesterol, Calc 103 mg/dL (<100) H 08/17/24 05:15 HDL Cholesterol 41 mg/dL (>40) 08/17/24 05:15 Procalcitonin 0.05 ng/mL 08/18/24 05:49 TSH 1.30 uIU/mL (0.32-4.0) 08/18/24 05:49 Nasal Screen MRSA (PCR) POSITIVE (Negative) A 08/16/24 21:16 Nasal S. aureus Screen POSITIVE (Negative) A 08/16/24 21:16 Nasal MRSA/S.aureus Interp SEE NOTE 08/16/24 21:16 Random Vancomycin 21.8 mcg/mL (15-20) H 08/18/24 20:17 Urine Opiates Screen Not Detected (Not Detect) 08/15/24 10:28 Ur Buprenorphine Scrn Not Detected ng/mL (Not Detect) 08/15/24 10:28 Ur Oxycodone Screen Not Detected ng/mL (Not Detect) 08/15/24 10:28 Urine Methadone Screen Positive ng/mL (Not Detect) H 08/15/24 10:28 Urine Fentanyl Screen Not Detected (Not Detect) 08/15/24 10:28 Ur Barbiturates Screen Not Detected (Not Detect) 08/15/24 10:28 Ur Phencyclidine Scrn Not Detected (Not Detect) 08/15/24 10:28 Ur Amphetamines Screen Not Detected (Not Detect) 08/15/24 10:28 U Benzodiazepines Scrn Not Detected (Not Detect) 08/15/24 10:28 Urine Cocaine Screen Not Detected (Not Detect) 08/15/24 10:28 U Marijuana (THC) Screen POSITIVE (Not Detect) H 08/15/24 10:28 Hep Bs Antigen Negative (Negative) 08/17/24 05:15 Hep Bs Antibody REACTIVE (Nonreactive) 08/17/24 05:15 Hep B Core Total Ab Nonreactive (Nonreactive) 08/17/24 05:15 Hepatitis C Ab (EIA) Nonreactive (Nonreactive) 08/17/24 05:15 HIV 1&2 Ab/P24 Ag 4thGn Nonreactive (Nonreactive) 08/17/24 05:[address] 08/16/24 14:33 IMPRESSION: 1. Bilateral lower lobe pneumonia. Follow-up is recommended to document resolution. 2. Hepatic steatosis. Splenomegaly. 3. Small to moderate hiatal hernia. Electronically signed by: Az Trujillo MD 08/16/2024 03:40 PM EDT RP Discharge Plan Discharge Patient Disposition: Xfer Psychiatric Hosp Discharge Diagnosis: pneumonia hypoxia asthma exacerbation suicidal ideation opioid use disorder Referrals: Physician,Unknown J [Primary Care Provider] - 1 Week Discharge Medications: New doxycycline monohydrate 100 mg Capsule 100 mg PO Q12H Qty: 10 0RF cefuroxime axetil 500 mg tablet 500 mg PO BID Qty: 10 0RF polyethylene glycol 3350 17 gram Powder In Packet 17 g PO DAILY Qty: 1 0RF prednisone 20 mg Tablet 40 mg PO DAILY Qty: 6 0RF sennosides-docusate sodium [Senna Plus] 8.6-50 mg Tablet 2 tab PO BID Qty: 1 0RF hydroxyzine HCl 25 mg Tablet 25 mg PO Q6H PRN (Reason: mild anxiety) Qty: 1 0RF methadone [Methadose] 10 mg/mL Concentrate 100 mg PO DAILY@0800 Qty: 1 0RF Rx Instructions: Partial Fill upon patient request. methadone [Methadose] 10 mg/mL Concentrate 25 mg PO DAILY@1700 Qty: 1 0RF Rx Instructions: Partial Fill upon patient request. Continued magnesium oxide 400 mg magnesium capsule 400 mg PO BEDTIME Qty: 30 2RF famotidine 20 mg Tablet 20 mg PO BEDTIME multivitamin [Daily-Rip] Tablet 1 tab PO DAILY Qty: 30 0RF quetiapine 25 mg Tablet 75 mg PO BID Qty: 42 4RF divalproex 250 mg Tablet,Delayed Release (Dr/Ec) 250 mg PO BID Qty: 14 2RF fluticasone furoate-vilanterol [Breo Ellipta] 200-25 mcg/dose Blister With Device 1 inh INHALATION DAILY albuterol sulfate [Ventolin HFA] 90 mcg/actuation Hfa Aerosol Inhaler 2 puff INHALATION Q4-6H PRN (Reason: Shortness Of Breath Or Wheezing) clonazepam 0.5 mg Tablet 0.5 mg PO BID PRN (Reason: Anxiety) fluoxetine 20 mg capsule 60 mg PO DAILY Creon 36,000-114,000- 180,000 unit capsule,delayed release(DR/EC) 2 cap PO TIDWM olanzapine 5 mg tablet 5 mg PO TID PRN (Reason: agitation) clonidine HCl 0.1 mg tablet 0.1 mg PO BID PRN (Reason: anxiety) ferrous sulfate 325 mg (65 mg iron) Tablet,Delayed Release (Dr/Ec) 325 mg PO Q OTHER DAY aspirin 81 mg tablet,delayed release (DR/EC) 81 mg PO DAILY mirtazapine 15 mg tablet 15 mg PO BEDTIME esomeprazole magnesium [Nexium] 40 mg capsule,delayed release(DR/EC) 40 mg PO DAILY Qty: 30 5RF Discontinued methadone [Methadone Intensol] 10 mg/mL Concentrate 125 mg PO DAILY sennosides [Natural Senna Laxative] 8.6 mg tablet 17.2 mg PO BEDTIME PRN (Reason: constipation) Diet: Advance to usual diet Activity on Discharge: As tolerated Stand Alone Forms: Patient Portal Discharge page Print Language: [place] Health Concerns: pneumonia hypoxia asthma exacerbation suicidal ideation opioid use disorder Plan of Treatment: take cefuroxime 500 mg twice daily PLUS doxycycline 100 mg twice daily for total 5 days take prednisone 40 mg once daily for total 3 days oxygen now normal transfer to inpatient psychiatry for ongoing care split methadone dosing follow up with primary care doctor within 1 week of discharge from psychiatry; repeat chest X-ray in 4-6 weeks
--- NOTE | 2024-08-19 12:08 | P.PNIM_ITS ---
Subjective Subjective Date of Service: 08/19/24 Interval History: breathing improved very anxious weaned off O2 Review of Systems Review of Systems: Yes all other systems are reviewed and are negative Physical Exam 2 Vital Signs: Vital Signs: Last Vital Signs Temp 97.6 F 08/19/24 07:52 Pulse 71 08/19/24 08:06 Resp 16 08/19/24 08:06 BP 134/73 08/19/24 07:52 Pulse Ox 95 08/19/24 07:52 O2 Del Method Nasal Cannula 08/19/24 07:52 O2 Flow Rate 2 08/19/24 07:52 BMI result Body Mass Index 47.6 Gen: in no acute distress HEENT: sclera anicteric, moist mucus membranes Neck: supple Lungs: clear Heart: regular rate and rhythm, no murmurs Abd: soft, non-tender, non-distended, obese Ext: no edema Skin: warm/well-perfused Neuro: alert and oriented x3, no focal findings Psych: anxious Objective Data Active Medications Acetaminophen (Acetaminophen 325 Mg Tablet) 650 mg PO Q6H PRN PRN Reason: Pain, Mild 1-3,fever,headache Last Admin: 08/16/24 19:30 Dose: 650 mg Documented By: RADHA Al Hydroxide/Mg Hydroxide (Magnesium Hydrox/Alum Hydrox 30 Ml Oral.Susp) 30 ml PO Q6H PRN PRN Reason: Heartburn/Nausea Albuterol Sulfate (Albuterol Sulfate 90 Mcg 8 Gm Inhaler) 2 puff INHALE Q4H PRN PRN Reason: Shortness Of Breath Or Wheezing Aspirin (Aspirin Enteric Coated 81 Mg Tablet.) 81 mg PO DAILY [facility] Last Admin: 08/19/24 08:29 Dose: 81 mg Documented By: OTTO Calcium Carbonate (Calcium Carbonate 750 Mg Tab.Chew) 750 mg PO Q4H PRN PRN Reason: Heartburn Ceftriaxone Sodium (Ceftriaxone Sodium 1 Gm Vial) 1 gm IVPUSH Q24H [facility] Last Admin: 08/18/24 17:15 Dose: 1 gm Documented By: BRIAN Clonazepam (Clonazepam 0.5 Mg Tablet) 0.5 mg PO BID PRN PRN Reason: Anxiety Last Admin: 08/19/24 08:35 Dose: 0.5 mg Documented By: OTTO Clonidine HCl (Clonidine Hcl 0.1 Mg Tablet) 0.1 mg PO BID PRN; Protocol PRN Reason: anxiety Last Admin: 08/18/24 13:54 Dose: 0.1 mg Documented By: BRIAN Divalproex Sodium (Divalproex Sodium 250 Mg Tablet.) 250 mg PO BID [facility] Last Admin: 08/19/24 08:28 Dose: 250 mg Documented By: OTTO Doxycycline Monohydrate (Doxycycline Monohydrate 100 Mg Capsule) 100 mg PO Q12H [facility] Last Admin: 08/19/24 08:28 Dose: 100 mg Documented By: OTTO Enoxaparin Sodium (Enoxaparin Sodium 40 Mg/0.4 Ml Syringe) 40 mg SUBCUT Q24H [facility] Last Admin: 08/18/24 17:15 Dose: 40 mg Documented By: BRIAN Famotidine (Famotidine 20 Mg Tablet) 20 mg PO BEDTIME [facility] Last Admin: 08/18/24 20:26 Dose: 20 mg Documented By: LUZ ELENA Ferrous Sulfate (Ferrous Sulfate 324 Mg Tablet.) 324 mg PO Q2D@0900 [facility] Last Admin: 08/19/24 08:28 Dose: 324 mg Documented By: OTTO Fluoxetine HCl (Fluoxetine Hcl 20 Mg Capsule) 60 mg PO DAILY [facility] Last Admin: 08/19/24 08:28 Dose: 60 mg Documented By: OTTO Fluticasone/Vilanterol (Fluticasone/Vilanterol 200/25 Blst.W.Dev) 1 puff INHALE RDAILY [facility] Last Admin: 08/19/24 08:05 Dose: 1 puff Documented By: DARIANA Hydroxyzine HCl (Hydroxyzine Hcl 25 Mg Tablet) 25 mg PO Q6H PRN PRN Reason: mild anxiety Last Admin: 08/17/24 16:29 Dose: 25 mg Documented By: FARHAT Vancomycin HCl 1,500 mg/ (Sodium Chloride) 500 mls @ 333.333 mls/hr IV Q12H [facility] Last Infusion: 08/19/24 08:11 Dose: Infused Documented By: OTTO Lactulose (Lactulose 20 Gm/30 Ml Solution) 30 gm PO DAILY [facility] Last Admin: 08/19/24 08:31 Dose: 30 gm Documented By: OTTO Lidocaine (Lidocaine 4 % Patch Adh..Patch) 1 patch TRANSDERMA DAILY [facility]; Protocol Last Admin: 08/19/24 08:38 Dose: Not Given Documented By: OTTO Non-Admin Reason: Patient Refused Magnesium Hydroxide (Milk Of Magnesia 30 Ml Oral.Susp) 30 ml PO DAILY PRN PRN Reason: Constipation Last Admin: 08/17/24 09:24 Dose: 30 ml Documented By: VIET Magnesium Oxide (Magnesium Oxide 400 Mg Tablet) 400 mg PO BEDTIME [facility] Last Admin: 08/18/24 20:26 Dose: 400 mg Documented By: LUZ ELENA Melatonin (Melatonin 3 Mg Tablet) 6 mg PO BEDTIME PRN PRN Reason: Insomnia Last Admin: 08/16/24 20:42 Dose: 6 mg Documented By: KAMINI Methadone HCl (Methadone Hcl 20 Mg/2 Ml Oral.Conc) 100 mg PO DAILY@0800 [facility] Last Admin: 08/19/24 08:26 Dose: 100 mg Documented By: OTTO Co-signed By: PRINCESS Methadone HCl (Methadone Hcl 20 Mg/2 Ml Oral.Conc) 25 mg PO DAILY@1700 [facility] Mirtazapine (Mirtazapine 15 Mg Tablet) 15 mg PO BEDTIME [facility] Last Admin: 08/18/24 20:26 Dose: 15 mg Documented By: LUZ ELENA Multivitamins/Vitamin C (Multivitamin Tablet) 1 tab PO DAILY [facility] Last Admin: 08/19/24 08:29 Dose: 1 tab Documented By: OTTO Nicotine (Nicotine 21 Mg Patch.Td24) 21 mg TRANSDERMA DAILY PRN PRN Reason: smoking cessation Nicotine Polacrilex (Nicotine Polacrilex 2 Mg Gum) 4 mg BUCCAL Q2H PRN PRN Reason: Nicotine Cravings Non-Formulary Medication ([id number]-Uteqplsh-Hhndqrp [Creon]) 2 cap PO TID [facility] Olanzapine (Olanzapine 5 Mg Tablet) 5 mg PO TID PRN PRN Reason: agitation Last Admin: 08/18/24 20:26 Dose: 5 mg Documented By: LUZ ELENA Omeprazole (Omeprazole 20 Mg Capsule.Dr) 20 mg PO DAILY@0630 [facility] Last Admin: 08/19/24 06:34 Dose: 20 mg Documented By: SHAWN Ondansetron HCl (Ondansetron Hcl 4 Mg/2 Ml Vial) 4 mg IVPUSH Q8H PRN PRN Reason: Nausea and Vomiting Last Admin: 08/19/24 08:42 Dose: 4 mg Documented By: OTTO Pharmacy Consult (Consult Rx Vancomycin Dosing) 1 each MISCELLANE DAILY PRN PRN Reason: Consult order Polyethylene Glycol (Polyethylene Glycol 3350 17 Gm Powd.Pack) 17 gm PO DAILY [facility] Last Admin: 08/19/24 08:29 Dose: 17 gm Documented By: OTTO Prednisone (Prednisone 20 Mg Tablet) 40 mg PO DAILY [facility] Last Admin: 08/19/24 08:29 Dose: 40 mg Documented By: OTTO Quetiapine Fumarate (Quetiapine Fumarate 25 Mg Tablet) 75 mg PO BID [facility] Last Admin: 08/19/24 08:28 Dose: 75 mg Documented By: OTTO Senna/Docusate Sodium (Sennosides/Docusate Sodium Tablet) 2 tab PO BID [facility] Last Admin: 08/19/24 08:29 Dose: 2 tab Documented By: OTTO Sodium Chloride (0.9 % Sodium Chloride Flush 3 Ml Syringe) 3 ml IVFLUSH QSHIFT [facility] Last Admin: 08/19/24 08:01 Dose: Not Given Documented By: OTTO Non-Admin Reason: IV Running Trazodone HCl (Trazodone Hcl 50 Mg Tablet) 50 mg PO BEDTIME MRX1 PRN PRN Reason: Insomnia Last Admin: 08/16/24 20:47 Dose: 50 mg Documented By: LAURENQC Labs 08/18/24 05:49 08/19/24 05:07 Labs: Laboratory Results - last 24 hr 08/18/24 08/18/24 08/19/24 20:17 20:21 05:07 Estim Creat Clear Calc 157.7 Estimated GFR > 60 POC Glucose 114 Random Vancomycin 21.8 H Microbiology Microbiology Results: Microbiology 08/16/24 15:31 Blood Culture - Preliminary Blood - Venous No growth after 48 hours. 08/16/24 15:31 Blood Culture - Preliminary Blood - Venous No growth after 48 hours. Assessment and Plan (1) Pneumonia: Status: Acute Plan d4 for 39yo M with bipolar depression, asthma, and polysubstance abuse on methadone presenting with SI and hallucinations and found to be hypoxic from bilateral PNA while awaiting psychiatric bed placement. PNA - 08/16- ceftriaxone + doxycycline, trend PCT, follow BCx, MRSA swab positive and added vancomycin 08/17-, urinary antigens for Legionella and pneumococcus pending, HIV screen negative - change to cefuroxime + doxycycline upon discharge acute hypoxic respiratory failure - weaned off O2 - appears to have compensated CO2 retention; goal SaO2 88-92% acute exacerbation moderate persistent asthma - prednisone 08/17-08/21; prn albuterol; continue Breo SI bipolar depression - sitter - continue home meds: divalproex, mirtazapine, quetiapine, fluoxetine, clonazepam, clonidine, hydroxyzine, trazodone; Psychiatry consult requested regarding polypharmacy, concern for medication interactions/side effects per patient and mother; Psychiatry deferring medication changes until pt is admitted to psychiatry floor - [facility], now medically cleared polysubstance abuse - continue methadone; Addiction Medicine consulted and will trial split dosing morbid obesity - diet/exercise counseling hepatic steatosis/splenomegaly - likely MILLAN; HBV immune, HCV negative VTE prophylaxis - enoxaparin dispo - psychiatry inpt In my clinical judgment, the patient requires continued inpatient hospitalization for the following reasons: awaiting psychiatry bed Total time managing care of this patient today: 35 minutes. Quality Stroke Does the patient have a stroke diagnosis?: No VTE Prior VTE?: No VTE Risk Level:: Medical - moderate - high VTE Device Contraindication: N/A - Device Ordered VTE Drug Contraindication: N/A - Med Ordered
[2024-08-19 14:57] VITALS: BP 129/85; PULSE 79; RESP 18; TEMP 36.8; O2SAT 94
--- NOTE | 2024-08-19 16:32 | MHC.CARE ---
Patient evaluated by the CARE Team, disposition remains inpatient level of care, provider Dr. Huffman updated.
[2024-08-19 16:54] LABS: Vancomycin Random 13.4 mcg/mL (15-20)
[2024-08-19] MEDS: Enoxaparin Sodium 40 MG/0.4 ML SYRINGE SUBCUT (17:14)
[2024-08-19] MEDS: cefTRIAXone sodium 1 GM VIAL IVPUSH (17:14)
[2024-08-19] MEDS: methADONE HCl 20 MG/2 ML ORAL.CONC 25 MG PO (17:15)
[2024-08-19] MEDS: cloNIDine HCL 0.1 MG TABLET PO (17:25)
[2024-08-19 19:43] VITALS: BP 132/81; PULSE 82; RESP 21; TEMP 36.2; O2SAT 92
[2024-08-19] MEDS: Famotidine 20 MG TABLET PO (20:01)
[2024-08-19] MEDS: Mirtazapine 15 MG TABLET PO (20:02)
[2024-08-19] MEDS: Magnesium Oxide 400 MG TABLET PO (20:02)
[2024-08-19] MEDS: traZODone HCL 50 MG TABLET PO (20:02)
[2024-08-19 23:08] VITALS: BP 116/66; PULSE 77; RESP 18; TEMP 36.8; O2SAT 92
[2024-08-20 04:41] VITALS: BP 120/69; PULSE 72; RESP 18; TEMP 36.3; O2SAT 92
[2024-08-20] MEDS: Omeprazole 20 MG CAPSULE.DR PO (06:05)
[2024-08-20] MEDS: vancomycin HCL 1,500 MG in 0.9 % Sodium Chloride 500 ML 333.33 MG IV (06:05)
[2024-08-20 07:45] VITALS: BP 120/68; PULSE 79; RESP 18; TEMP 36.4; O2SAT 91
[2024-08-20] MEDS: 0.9 % Sodium Chloride Flush 3 ML SYRINGE IVFLUSH ×3 (07:46→20:00)
[2024-08-20] MEDS: Divalproex Sodium 250 MG TABLET.DR PO ×2 (07:47→19:59)
[2024-08-20] MEDS: Multivitamin TABLET 1 TAB PO (07:47)
[2024-08-20] MEDS: predniSONE 20 MG TABLET 40 MG PO (07:47)
[2024-08-20] MEDS: Aspirin Enteric Coated 81 MG TABLET.DR PO (07:47)
[2024-08-20] MEDS: Sennosides/Docusate Sodium TABLET 2 TAB PO ×2 (07:48→20:00)
[2024-08-20] MEDS: FLUoxetine HCl 20 MG CAPSULE 60 MG PO (07:48)
[2024-08-20] MEDS: Doxycycline Monohydrate 100 MG CAPSULE PO ×2 (07:48→20:00)
[2024-08-20] MEDS: Lactulose 20 GM/30 ML SOLUTION 30 GM PO (07:50)
[2024-08-20] MEDS: polyethylene glycoL 3350 17 GM POWD.PACK PO (07:51)
[2024-08-20] MEDS: methADONE HCl 20 MG/2 ML ORAL.CONC 100 MG PO (07:52)
[2024-08-20 08:10] LABS: Creatinine Clr Calc Pharmacy 150.7; Estimated Glomerular Filt Rate > 60
[2024-08-20] MEDS: Fluticasone/Vilanterol 200/25 BLST.W.DEV 1 PUFF INHALE (08:27)
[2024-08-20 08:28] VITALS: PULSE 84; RESP 18; O2SAT 96
[2024-08-20] MEDS: clonazePAM 0.5 MG TABLET PO ×2 (09:37→19:59)
[2024-08-20] MEDS: QUEtiapine Fumarate 25 MG TABLET 75 MG PO ×2 (09:37→19:59)
--- NOTE | 2024-08-20 10:19 | P.PNIM_ITS ---
Subjective Subjective Date of Service: 08/20/24 Interval History: breathing improved but now anxious about blowing out a large amount of mucus from his nose Review of Systems Review of Systems: Yes all other systems are reviewed and are negative Physical Exam 2 Vital Signs: Vital Signs: Last Vital Signs Temp 97.5 F 08/20/24 07:45 Pulse 84 08/20/24 08:28 Resp 18 08/20/24 08:28 BP 120/68 08/20/24 07:45 Pulse Ox 91 L 08/20/24 07:45 O2 Del Method Room Air 08/20/24 07:45 O2 Flow Rate 2 08/19/24 07:52 BMI result Body Mass Index 47.6 Gen: in no acute distress HEENT: sclera anicteric, moist mucus membranes Neck: supple Lungs: clear Heart: regular rate and rhythm, no murmurs Abd: soft, non-tender, non-distended, obese Ext: no edema Skin: warm/well-perfused Neuro: alert and oriented x3, no focal findings Psych: anxious Objective Data Active Medications Acetaminophen (Acetaminophen 325 Mg Tablet) 650 mg PO Q6H PRN PRN Reason: Pain, Mild 1-3,fever,headache Last Admin: 08/16/24 19:30 Dose: 650 mg Documented By: RADHA Al Hydroxide/Mg Hydroxide (Magnesium Hydrox/Alum Hydrox 30 Ml Oral.Susp) 30 ml PO Q6H PRN PRN Reason: Heartburn/Nausea Albuterol Sulfate (Albuterol Sulfate 90 Mcg 8 Gm Inhaler) 2 puff INHALE Q4H PRN PRN Reason: Shortness Of Breath Or Wheezing Lipase/Protease/Amylase (Lipase/Prot/Amylase 24/76/120k 1 Cap Capsule.) 3 cap PO TID [facility] Aspirin (Aspirin Enteric Coated 81 Mg Tablet.) 81 mg PO DAILY [facility] Last Admin: 08/20/24 07:47 Dose: 81 mg Documented By: MYNOR Calcium Carbonate (Calcium Carbonate 750 Mg Tab.Chew) 750 mg PO Q4H PRN PRN Reason: Heartburn Ceftriaxone Sodium (Ceftriaxone Sodium 1 Gm Vial) 1 gm IVPUSH Q24H [facility] Last Admin: 08/19/24 17:14 Dose: 1 gm Documented By: OTTO Clonazepam (Clonazepam 0.5 Mg Tablet) 0.5 mg PO BID PRN PRN Reason: Anxiety Last Admin: 08/20/24 09:37 Dose: 0.5 mg Documented By: MYNOR Clonidine HCl (Clonidine Hcl 0.1 Mg Tablet) 0.1 mg PO BID PRN; Protocol PRN Reason: anxiety Last Admin: 08/19/24 17:25 Dose: 0.1 mg Documented By: OTTO Divalproex Sodium (Divalproex Sodium 250 Mg Tablet.) 250 mg PO BID [facility] Last Admin: 08/20/24 07:47 Dose: 250 mg Documented By: MYNOR Doxycycline Monohydrate (Doxycycline Monohydrate 100 Mg Capsule) 100 mg PO Q12H [facility] Last Admin: 08/20/24 07:48 Dose: 100 mg Documented By: MYNOR Enoxaparin Sodium (Enoxaparin Sodium 40 Mg/0.4 Ml Syringe) 40 mg SUBCUT Q24H [facility] Last Admin: 08/19/24 17:14 Dose: 40 mg Documented By: OTTO Famotidine (Famotidine 20 Mg Tablet) 20 mg PO BEDTIME [facility] Last Admin: 08/19/24 20:01 Dose: 20 mg Documented By: CASTILLorenza Ferrous Sulfate (Ferrous Sulfate 324 Mg Tablet.) 324 mg PO Q2D@0900 [facility] Last Admin: 08/19/24 08:28 Dose: 324 mg Documented By: OTTO Fluoxetine HCl (Fluoxetine Hcl 20 Mg Capsule) 60 mg PO DAILY [facility] Last Admin: 08/20/24 07:48 Dose: 60 mg Documented By: MYNOR Fluticasone/Vilanterol (Fluticasone/Vilanterol 200/25 Blst.W.Dev) 1 puff INHALE RDAILY [facility] Last Admin: 08/20/24 08:27 Dose: 1 puff Documented By: CORINA Hydroxyzine HCl (Hydroxyzine Hcl 25 Mg Tablet) 25 mg PO Q6H PRN PRN Reason: mild anxiety Last Admin: 08/17/24 16:29 Dose: 25 mg Documented By: FARHAT Vancomycin HCl 1,500 mg/ (Sodium Chloride) 500 mls @ 333.333 mls/hr IV Q12H [facility] Last Infusion: 08/20/24 07:58 Dose: Infused Documented By: MYNOR Lactulose (Lactulose 20 Gm/30 Ml Solution) 30 gm PO DAILY [facility] Last Admin: 08/20/24 07:50 Dose: 30 gm Documented By: MYNOR Lidocaine (Lidocaine 4 % Patch Adh..Patch) 1 patch TRANSDERMA DAILY [facility]; Protocol Last Admin: 08/20/24 07:51 Dose: Not Given Documented By: MYNOR Non-Admin Reason: Patient Refused Magnesium Hydroxide (Milk Of Magnesia 30 Ml Oral.Susp) 30 ml PO DAILY PRN PRN Reason: Constipation Last Admin: 08/17/24 09:24 Dose: 30 ml Documented By: VIET Magnesium Oxide (Magnesium Oxide 400 Mg Tablet) 400 mg PO BEDTIME [facility] Last Admin: 08/19/24 20:02 Dose: 400 mg Documented By: ADAM Melatonin (Melatonin 3 Mg Tablet) 6 mg PO BEDTIME PRN PRN Reason: Insomnia Last Admin: 08/16/24 20:42 Dose: 6 mg Documented By: KAMINI Methadone HCl (Methadone Hcl 20 Mg/2 Ml Oral.Conc) 100 mg PO DAILY@0800 [facility] Last Admin: 08/20/24 07:52 Dose: 100 mg Documented By: MYNOR Co-signed By: FUNMI Methadone HCl (Methadone Hcl 20 Mg/2 Ml Oral.Conc) 25 mg PO DAILY@1700 [facility] Last Admin: 08/19/24 17:15 Dose: 25 mg Documented By: OTTO Co-signed By: LAYNE Mirtazapine (Mirtazapine 15 Mg Tablet) 15 mg PO BEDTIME [facility] Last Admin: 08/19/24 20:02 Dose: 15 mg Documented By: ADAM Multivitamins/Vitamin C (Multivitamin Tablet) 1 tab PO DAILY [facility] Last Admin: 08/20/24 07:47 Dose: 1 tab Documented By: MYNOR Nicotine (Nicotine 21 Mg Patch.Td24) 21 mg TRANSDERMA DAILY PRN PRN Reason: smoking cessation Nicotine Polacrilex (Nicotine Polacrilex 2 Mg Gum) 4 mg BUCCAL Q2H PRN PRN Reason: Nicotine Cravings Olanzapine (Olanzapine 5 Mg Tablet) 5 mg PO TID PRN PRN Reason: agitation Last Admin: 08/18/24 20:26 Dose: 5 mg Documented By: LUZ ELENA Omeprazole (Omeprazole 20 Mg Capsule.) 20 mg PO DAILY@0630 [facility] Last Admin: 08/20/24 06:05 Dose: 20 mg Documented By: SHAWN Ondansetron HCl (Ondansetron Hcl 4 Mg/2 Ml Vial) 4 mg IVPUSH Q8H PRN PRN Reason: Nausea and Vomiting Last Admin: 08/19/24 08:42 Dose: 4 mg Documented By: OTTO Pharmacy Consult (Consult Rx Vancomycin Dosing) 1 each MISCELLANE DAILY PRN PRN Reason: Consult order Polyethylene Glycol (Polyethylene Glycol 3350 17 Gm Powd.Pack) 17 gm PO DAILY [facility] Last Admin: 08/20/24 07:51 Dose: 17 gm Documented By: MYNOR Prednisone (Prednisone 20 Mg Tablet) 40 mg PO DAILY [facility] Last Admin: 08/20/24 07:47 Dose: 40 mg Documented By: MYNOR Quetiapine Fumarate (Quetiapine Fumarate 25 Mg Tablet) 75 mg PO BID [facility] Last Admin: 08/20/24 09:37 Dose: 75 mg Documented By: MYNOR Senna/Docusate Sodium (Sennosides/Docusate Sodium Tablet) 2 tab PO BID [facility] Last Admin: 08/20/24 07:48 Dose: 2 tab Documented By: MYNOR Sodium Chloride (0.9 % Sodium Chloride Flush 3 Ml Syringe) 3 ml IVFLUSH QSHIFT [facility] Last Admin: 08/20/24 07:46 Dose: 3 ml Documented By: MYNOR Trazodone HCl (Trazodone Hcl 50 Mg Tablet) 50 mg PO BEDTIME MRX1 PRN PRN Reason: Insomnia Last Admin: 08/19/24 20:02 Dose: 50 mg Documented By: ADAM Labs 08/18/24 05:49 08/20/24 07:45 Labs: Laboratory Results - last 24 hr 08/19/24 08/20/24 16:26 07:45 Hold Purple Top SEE NOTE Estim Creat Clear Calc 150.7 Estimated GFR > 60 Random Vancomycin 13.4 L Assessment and Plan (1) Pneumonia: Status: Acute Plan d5 for 39yo M with bipolar depression, asthma, and polysubstance abuse on methadone presenting with SI and hallucinations and found to be hypoxic from bilateral PNA while awaiting psychiatric bed placement. PNA - 08/16-08/20 ceftriaxone + doxycycline, 08/17-08/20 vancomycin for positive MRSA swab, urinary antigens for Legionella and pneumococcus pending, HIV screen negative - change to cefuroxime + doxycycline today acute hypoxic respiratory failure - weaned off O2 - appears to have compensated CO2 retention; goal SaO2 88-92% acute exacerbation moderate persistent asthma - prednisone 08/17-08/21; prn albuterol; continue Breo SI bipolar depression - sitter - continue home meds: divalproex, mirtazapine, quetiapine, fluoxetine, clonazepam, clonidine, hydroxyzine, trazodone; Psychiatry consult requested regarding polypharmacy, concern for medication interactions/side effects per patient and mother; Psychiatry deferring medication changes until pt is admitted to psychiatry floor - [facility], now medically cleared and awaiting bed polysubstance abuse - continue methadone; Addiction Medicine consulted and trialing split dosing morbid obesity - diet/exercise counseling hepatic steatosis/splenomegaly - likely MILLAN; HBV immune, HCV negative VTE prophylaxis - enoxaparin dispo - psychiatry inpt In my clinical judgment, the patient requires continued inpatient hospitalization for the following reasons: awaiting psychiatry bed Total time managing care of this patient today: 35 minutes. Quality Stroke Does the patient have a stroke diagnosis?: No VTE Prior VTE?: No VTE Risk Level:: Medical - moderate - high VTE Device Contraindication: N/A - Device Ordered VTE Drug Contraindication: N/A - Med Ordered
[2024-08-20 11:08] LABS: Procalcitonin 0.04 ng/mL
[2024-08-20 12:00] VITALS: BP 130/86; PULSE 82; RESP 18; TEMP 36.4; O2SAT 93
[2024-08-20] MEDS: Lipase/Prot/Amylase 24/76/120K 1 CAP CAPSULE.DR 3 CAP PO (15:03)
[2024-08-20 15:11] VITALS: BP 132/72; PULSE 75; RESP 16; TEMP 36.3; O2SAT 93
[2024-08-20] MEDS: methADONE HCl 20 MG/2 ML ORAL.CONC 25 MG PO (17:17)
[2024-08-20] MEDS: Enoxaparin Sodium 40 MG/0.4 ML SYRINGE SUBCUT (17:20)
[2024-08-20 19:15] VITALS: BP 135/87; PULSE 80; RESP 18; TEMP 36.2; O2SAT 94
[2024-08-20] MEDS: cefuroxime axetiL 500 MG TABLET PO (19:59)
[2024-08-20] MEDS: Magnesium Oxide 400 MG TABLET PO (19:59)
[2024-08-20] MEDS: Mirtazapine 15 MG TABLET PO (19:59)
[2024-08-21] VITALS (8 sets, daily range): BP systolic 110–151; BP diastolic 69–93; PULSE 70–91; RESP 16–18; TEMP 35.9–36.7; O2SAT 93–96
[2024-08-21] MEDS: Fluticasone/Vilanterol 200/25 BLST.W.DEV 1 PUFF INHALE (07:48)
[2024-08-21] MEDS: methADONE HCl 20 MG/2 ML ORAL.CONC 100 MG PO (07:50)
[2024-08-21] MEDS: polyethylene glycoL 3350 17 GM POWD.PACK PO (07:50)
[2024-08-21] MEDS: Lactulose 20 GM/30 ML SOLUTION 30 GM PO (07:51)
[2024-08-21] MEDS: QUEtiapine Fumarate 25 MG TABLET 75 MG PO ×2 (07:51→20:06)
[2024-08-21] MEDS: FLUoxetine HCl 20 MG CAPSULE 60 MG PO (07:51)
[2024-08-21] MEDS: cefuroxime axetiL 500 MG TABLET PO ×2 (07:52→20:07)
[2024-08-21] MEDS: predniSONE 20 MG TABLET 40 MG PO (07:52)
[2024-08-21] MEDS: Sennosides/Docusate Sodium TABLET 2 TAB PO ×2 (07:52→20:06)
[2024-08-21] MEDS: Divalproex Sodium 250 MG TABLET.DR PO ×2 (07:52→20:06)
[2024-08-21] MEDS: Lipase/Prot/Amylase 24/76/120K 1 CAP CAPSULE.DR 3 CAP PO ×2 (07:52→17:49)
[2024-08-21] MEDS: Doxycycline Monohydrate 100 MG CAPSULE PO ×2 (07:52→20:06)
[2024-08-21] MEDS: Aspirin Enteric Coated 81 MG TABLET.DR PO (07:52)
[2024-08-21] MEDS: Ferrous Sulfate 324 MG TABLET.DR PO (07:52)
[2024-08-21] MEDS: Multivitamin TABLET 1 TAB PO (07:52)
[2024-08-21] MEDS: clonazePAM 0.5 MG TABLET PO (08:04)
[2024-08-21] MEDS: 0.9 % Sodium Chloride Flush 3 ML SYRINGE IVFLUSH ×3 (08:05→20:07)
[2024-08-21] MEDS: ondansetron HCL 4 MG/2 ML VIAL IVPUSH (08:26)
[2024-08-21] MEDS: cloNIDine HCL 0.1 MG TABLET PO (11:57)
--- NOTE | 2024-08-21 15:07 | HO.PM.IMPN ---
Subjective Subjective Date of Service: 08/21/24 Interval History: No acute issues overnight. Review of Systems Denies chest pain Denies shortness of breath Denies nausea vomiting diarrhea Denies fever chills Physical Exam Vital Signs: Vital Signs: Last Vital Signs Temp 98.0 F 08/21/24 11:51 Pulse 91 08/21/24 11:41 Resp 16 08/21/24 11:41 BP 151/93 H 08/21/24 11:41 Pulse Ox 94 08/21/24 11:41 O2 Del Method Room Air 08/21/24 11:41 O2 Flow Rate 2 08/19/24 07:52 BMI result Body Mass Index 47.6 Const: Other: Awake alert no acute distress Resp: Other: Clear to auscultation bilaterally no rales rhonchi or wheezes Cardio: Other: No S4; positive S1-S2; no S3 murmurs rubs or gallops GI: Other: Soft nontender nondistended normoactive bowel sounds Extrem: Other: No edema bilaterally Objective Data Active Medications Acetaminophen (Acetaminophen 325 Mg Tablet) 650 mg PO Q6H PRN PRN Reason: Pain, Mild 1-3,fever,headache Last Admin: 08/16/24 19:30 Dose: 650 mg Documented By: RADHA Al Hydroxide/Mg Hydroxide (Magnesium Hydrox/Alum Hydrox 30 Ml Oral.Susp) 30 ml PO Q6H PRN PRN Reason: Heartburn/Nausea Albuterol Sulfate (Albuterol Sulfate 90 Mcg 8 Gm Inhaler) 2 puff INHALE Q4H PRN PRN Reason: Shortness Of Breath Or Wheezing Lipase/Protease/Amylase (Lipase/Prot/Amylase 24/76/120k 1 Cap Capsule.) 3 cap PO TID [facility] Last Admin: 08/21/24 07:52 Dose: 3 cap Documented By: TONY Aspirin (Aspirin Enteric Coated 81 Mg Tablet.) 81 mg PO DAILY [facility] Last Admin: 08/21/24 07:52 Dose: 81 mg Documented By: TONY Calcium Carbonate (Calcium Carbonate 750 Mg Tab.Chew) 750 mg PO Q4H PRN PRN Reason: Heartburn Cefuroxime Axetil (Cefuroxime Axetil 500 Mg Tablet) 500 mg PO Q12H [facility] Last Admin: 08/21/24 07:52 Dose: 500 mg Documented By: TONY Clonazepam (Clonazepam 0.5 Mg Tablet) 0.5 mg PO BID PRN PRN Reason: Anxiety Last Admin: 08/21/24 08:04 Dose: 0.5 mg Documented By: TONY Clonidine HCl (Clonidine Hcl 0.1 Mg Tablet) 0.1 mg PO BID PRN; Protocol PRN Reason: anxiety Last Admin: 08/21/24 11:57 Dose: 0.1 mg Documented By: TONY Divalproex Sodium (Divalproex Sodium 250 Mg Tablet.) 250 mg PO BID [facility] Last Admin: 08/21/24 07:52 Dose: 250 mg Documented By: TONY Doxycycline Monohydrate (Doxycycline Monohydrate 100 Mg Capsule) 100 mg PO Q12H [facility] Last Admin: 08/21/24 07:52 Dose: 100 mg Documented By: TONY Enoxaparin Sodium (Enoxaparin Sodium 40 Mg/0.4 Ml Syringe) 40 mg SUBCUT Q24H [facility] Last Admin: 08/20/24 17:20 Dose: 40 mg Documented By: MYNOR Famotidine (Famotidine 20 Mg Tablet) 20 mg PO BEDTIME [facility] Last Admin: 08/20/24 20:06 Dose: Not Given Documented By: JO Non-Admin Reason: Patient Refused Ferrous Sulfate (Ferrous Sulfate 324 Mg Tablet.) 324 mg PO Q2D@0900 [facility] Last Admin: 08/21/24 07:52 Dose: 324 mg Documented By: TONY Fluoxetine HCl (Fluoxetine Hcl 20 Mg Capsule) 60 mg PO DAILY [facility] Last Admin: 08/21/24 07:51 Dose: 60 mg Documented By: TONY Fluticasone/Vilanterol (Fluticasone/Vilanterol 200/25 Blst.W.Dev) 1 puff INHALE RDAILY [facility] Last Admin: 08/21/24 07:48 Dose: 1 puff Documented By: CORINA Hydroxyzine HCl (Hydroxyzine Hcl 25 Mg Tablet) 25 mg PO Q6H PRN PRN Reason: mild anxiety Last Admin: 08/17/24 16:29 Dose: 25 mg Documented By: FARHAT Lactulose (Lactulose 20 Gm/30 Ml Solution) 30 gm PO DAILY [facility] Last Admin: 08/21/24 07:51 Dose: 30 gm Documented By: TONY Lidocaine (Lidocaine 4 % Patch Adh..Patch) 1 patch TRANSDERMA DAILY [facility]; Protocol Last Admin: 08/21/24 08:29 Dose: Not Given Documented By: TONY Non-Admin Reason: Patient Refused Magnesium Hydroxide (Milk Of Magnesia 30 Ml Oral.Susp) 30 ml PO DAILY PRN PRN Reason: Constipation Last Admin: 08/17/24 09:24 Dose: 30 ml Documented By: VIET Magnesium Oxide (Magnesium Oxide 400 Mg Tablet) 400 mg PO BEDTIME [facility] Last Admin: 08/20/24 19:59 Dose: 400 mg Documented By: JO Melatonin (Melatonin 3 Mg Tablet) 6 mg PO BEDTIME PRN PRN Reason: Insomnia Last Admin: 08/16/24 20:42 Dose: 6 mg Documented By: KAMINI Methadone HCl (Methadone Hcl 20 Mg/2 Ml Oral.Conc) 100 mg PO DAILY@0800 [facility] Last Admin: 08/21/24 07:50 Dose: 100 mg Documented By: TONY Co-signed By: RUPINDER Methadone HCl (Methadone Hcl 20 Mg/2 Ml Oral.Conc) 25 mg PO DAILY@1700 [facility] Last Admin: 08/20/24 17:17 Dose: 25 mg Documented By: MYNOR Co-signed By: LAYNE Mirtazapine (Mirtazapine 15 Mg Tablet) 15 mg PO BEDTIME [facility] Last Admin: 08/20/24 19:59 Dose: 15 mg Documented By: JO Multivitamins/Vitamin C (Multivitamin Tablet) 1 tab PO DAILY [facility] Last Admin: 08/21/24 07:52 Dose: 1 tab Documented By: TONY Nicotine (Nicotine 21 Mg Patch.Td24) 21 mg TRANSDERMA DAILY PRN PRN Reason: smoking cessation Nicotine Polacrilex (Nicotine Polacrilex 2 Mg Gum) 4 mg BUCCAL Q2H PRN PRN Reason: Nicotine Cravings Olanzapine (Olanzapine 5 Mg Tablet) 5 mg PO TID PRN PRN Reason: agitation Last Admin: 08/18/24 20:26 Dose: 5 mg Documented By: LUZ ELENA Omeprazole (Omeprazole 20 Mg Capsule.Dr) 20 mg PO DAILY@0630 [facility] Last Admin: 08/21/24 05:52 Dose: Not Given Documented By: JO Non-Admin Reason: Patient Refused Ondansetron HCl (Ondansetron Hcl 4 Mg/2 Ml Vial) 4 mg IVPUSH Q8H PRN PRN Reason: Nausea and Vomiting Last Admin: 08/21/24 08:26 Dose: 4 mg Documented By: TONY Polyethylene Glycol (Polyethylene Glycol 3350 17 Gm Powd.Pack) 17 gm PO DAILY [facility] Last Admin: 08/21/24 07:50 Dose: 17 gm Documented By: TONY Prednisone (Prednisone 20 Mg Tablet) 40 mg PO DAILY [facility] Last Admin: 08/21/24 07:52 Dose: 40 mg Documented By: TONY Quetiapine Fumarate (Quetiapine Fumarate 25 Mg Tablet) 75 mg PO BID [facility] Last Admin: 08/21/24 07:51 Dose: 75 mg Documented By: TONY Senna/Docusate Sodium (Sennosides/Docusate Sodium Tablet) 2 tab PO BID [facility] Last Admin: 08/21/24 07:52 Dose: 2 tab Documented By: TONY Sodium Chloride (0.9 % Sodium Chloride Flush 3 Ml Syringe) 3 ml IVFLUSH QSHIFT [facility] Last Admin: 08/21/24 08:05 Dose: 3 ml Documented By: TONY Trazodone HCl (Trazodone Hcl 50 Mg Tablet) 50 mg PO BEDTIME MRX1 PRN PRN Reason: Insomnia Last Admin: 08/19/24 20:02 Dose: 50 mg Documented By: ADAM Labs 08/18/24 05:49 08/20/24 07:45 Assessment and Plan (1) Pneumonia: Status: Acute (2) Acute exacerbation of moderate persistent extrinsic asthma: Status: Acute (3) Suicidal ideation: Status: Acute Plan d5 for 39yo M with bipolar depression, asthma, and polysubstance abuse on methadone presenting with SI and hallucinations and found to be hypoxic from bilateral PNA while awaiting psychiatric bed placement. 1. Bilateral lower lobe pneumonia - 08/16-08/20 ceftriaxone + doxycycline, 08/17-08/20 vancomycin for positive MRSA swab, urinary antigens for Legionella and pneumococcus pending, HIV screen negative - change to cefuroxime + doxycycline today(2) 2.Acute hypoxic respiratory failure - weaned off O2 - appears to have compensated CO2 retention; goal SaO2 88-92% 3.Acute exacerbation moderate persistent asthma -acute exacerbation resolved - prednisone 08/17-08/21; prn albuterol; continue Breo 4.SI - sitter - continue home meds: divalproex, mirtazapine, quetiapine, fluoxetine, clonazepam, clonidine, hydroxyzine, trazodone; Psychiatry consult requested regarding polypharmacy, concern for medication interactions/side effects per patient and mother; Psychiatry deferring medication changes until pt is admitted to psychiatry floor - [facility], now medically cleared and awaiting bed -care team undergoing bed search 5.Polysubstance abuse - continue methadone; Addiction Medicine consulted and trialing split dosing Enoxaparin Full Code In my clinical judgment, the patient requires continued inpatient hospitalization for the following reasons: awaiting psychiatry bed Quality Stroke Does the patient have a stroke diagnosis?: No VTE Prior VTE?: No VTE Risk Level:: Medical - moderate - high VTE Device Contraindication: N/A - Device Ordered VTE Drug Contraindication: N/A - Med Ordered
[2024-08-21] MEDS: Enoxaparin Sodium 40 MG/0.4 ML SYRINGE SUBCUT (16:17)
--- NOTE | 2024-08-21 16:17 | MHC.CM.PN ---
per rounds pt awaiting a psych placement
[2024-08-21] MEDS: methADONE HCl 20 MG/2 ML ORAL.CONC 25 MG PO (17:31)
[2024-08-21] MEDS: Mirtazapine 15 MG TABLET PO (20:06)
[2024-08-21] MEDS: Magnesium Oxide 400 MG TABLET PO (20:07)
[2024-08-22 03:02] VITALS: BP 119/73; PULSE 76; RESP 18; TEMP 36.1; O2SAT 92
[2024-08-22 07:09] VITALS: BP 121/73; PULSE 81; RESP 16; TEMP 36.3; O2SAT 94
[2024-08-22] MEDS: methADONE HCl 20 MG/2 ML ORAL.CONC 100 MG PO (07:15)
[2024-08-22] MEDS: Doxycycline Monohydrate 100 MG CAPSULE PO (07:20)
[2024-08-22] MEDS: clonazePAM 0.5 MG TABLET PO ×2 (07:20→14:51)
[2024-08-22] MEDS: Fluticasone/Vilanterol 200/25 BLST.W.DEV 1 PUFF INHALE (07:25)
[2024-08-22 07:26] VITALS: PULSE 81; RESP 16; O2SAT 94
[2024-08-22] MEDS: cefuroxime axetiL 500 MG TABLET PO (08:40)
[2024-08-22] MEDS: Lipase/Prot/Amylase 24/76/120K 1 CAP CAPSULE.DR 3 CAP PO ×2 (08:40→12:34)
[2024-08-22] MEDS: QUEtiapine Fumarate 25 MG TABLET 75 MG PO (09:41)
[2024-08-22] MEDS: predniSONE 20 MG TABLET 40 MG PO (09:41)
[2024-08-22] MEDS: FLUoxetine HCl 20 MG CAPSULE 60 MG PO (09:41)
[2024-08-22] MEDS: Multivitamin TABLET 1 TAB PO (09:42)
[2024-08-22] MEDS: Divalproex Sodium 250 MG TABLET.DR PO (09:42)
[2024-08-22] MEDS: Aspirin Enteric Coated 81 MG TABLET.DR PO (09:42)
[2024-08-22 12:00] VITALS: BP 143/85; PULSE 97; RESP 18; TEMP 36; O2SAT 93
--- NOTE | 2024-08-22 13:39 | PM.DS ---
DS: Providers Provider Date of Service: 08/22/24 Date of admission: 08/16/24 16:14 Date of discharge: 08/22/24 Primary care physician: Unknown Physician Consults: 08/15/24 09:46 ED CARE Team Crisis Consult Stat Comment: Reason for consultation: +SI, +AH/VH 08/16/24 16:21 Consult for Sitter Routine Reason for consultation: SI 08/16/24 20:33 Addiction Medicine Provider Routine Consulting Provider: Addiction Covering Reason for consultation: daily majiuana use and wants to quit. also discuss methadone dosing 08/17/24 10:19 Consult to Psychiatry Routine Consulting Provider: [facility] Psych Covering Reason for consultation: polypharmacy, c/o hot flashes/shakiness 08/19/24 08:51 Inpt CARE Team Crisis Consult Routine Comment: Reason for consultation: pneumonia, medically cleared for psychiatr, SI 08/19/24 11:51 Inpt CARE Team Crisis Consult Stat Comment: Reason for consultation: medically cleared for psych, already previously accepted from ED DS: Diagnosis Discharge Diagnosis (1) Pneumonia: Status: Acute (2) Acute exacerbation of moderate persistent extrinsic asthma: Status: Acute (3) Suicidal ideation: Status: Acute DS: Summary Hospital Course Hospital Course: from my admission H+P, 08/16/24: 39yo M with bipolar depression, asthma, and polysubstance abuse who presented to the ED via EMS with suicidal ideation and auditory and visual hallucinations. Reports daily cough which he attributes to smoking. No purulent sputum and denies wheezing. Was awaiting inpatient psychiatry bed but then found to be hypoxic with SaO2 88%. CXR with bilateral lower lobe pneumonia and he was given levofloxacin and doxycycline. He reportedly had a rash with penicillin in the past but does not remember any details of that. Upon review he had ceftriaxone in 2019 without issues. He denies fever or shaking chills. Endorses some leg swelling. 39yo M with bipolar depression, asthma, and polysubstance abuse on methadone presenting with SI and hallucinations and found to be hypoxic from bilateral PNA while awaiting psychiatric bed placement. Hospital course by problem: PNA - Treated 08/16-08/19 with ceftriaxone + doxycycline; also vancomycin 08/17-08/19 due to positive MRSA swab. PCT low and blood cultures negative. HIV negative. Discharged on cefuroxime + doxycycline for 5 more days. acute hypoxic respiratory failure - weaned off oxygen; appears to have compensated CO2 retention; goal SaO2 88-92% acute exacerbation moderate persistent asthma - treated with prednisone 08/17-08/22 SI bipolar depression - had a sitter while hospitalized; continued home meds: divalproex, mirtazapine, quetiapine, fluoxetine, clonazepam, clonidine, hydroxyzine, trazodone; Psychiatry deferring medication changes until he goes to the psychiatric floor, to which he was transferred on 08/22/24 polysubstance abuse - continued methadone; Addiction Medicine consulted and trialing splitting the 125 mg/d daily dose to 100 mg qam + 25 mg qpm Time Attestation Discharge Coordination Time (in mins): 35 Quality: Safe Use of Opioids Does Pt have an Active Cancer Diagnosis on the Problem List?: No Quality: Stroke Does the patient have a stroke diagnosis?: No Physical Exam Vital Signs: Vital Signs: Last Vital Signs Temp 96.8 F 08/22/24 12:00 Pulse 97 08/22/24 12:00 Resp 18 08/22/24 12:00 BP 143/85 H 08/22/24 12:00 Pulse Ox 93 08/22/24 12:00 O2 Del Method Room Air 08/22/24 12:00 O2 Flow Rate 2 08/19/24 07:52 BMI result Body Mass Index 47.6 Const: Other: Awake alert no acute distress Resp: Other: Clear to auscultation bilaterally no rales rhonchi or wheezes Cardio: Other: No S4; positive S1-S2; no S3 murmurs rubs or gallops GI: Other: Soft nontender nondistended normoactive bowel sounds Extrem: Other: No edema bilaterally Discharge Plan Discharge Anticipated Discharge Date/Time: 08/22/24 13:35 Patient Disposition: Xfer Psychiatric Hosp Discharge Diagnosis: pneumonia hypoxia asthma exacerbation suicidal ideation opioid use disorder Referrals: Physician,Unknown J [Primary Care Provider] - 1 Week Discharge Medications: New doxycycline monohydrate 100 mg Capsule 100 mg PO Q12H Qty: 10 0RF cefuroxime axetil 500 mg tablet 500 mg PO BID Qty: 10 0RF polyethylene glycol 3350 17 gram Powder In Packet 17 g PO DAILY Qty: 1 0RF sennosides-docusate sodium [Senna Plus] 8.6-50 mg Tablet 2 tab PO BID Qty: 1 0RF hydroxyzine HCl 25 mg Tablet 25 mg PO Q6H PRN (Reason: mild anxiety) Qty: 1 0RF methadone [Methadose] 10 mg/mL Concentrate 100 mg PO DAILY@0800 Qty: 1 0RF Rx Instructions: Partial Fill upon patient request. methadone [Methadose] 10 mg/mL Concentrate 25 mg PO DAILY@1700 Qty: 1 0RF Rx Instructions: Partial Fill upon patient request. Continued magnesium oxide 400 mg magnesium capsule 400 mg PO BEDTIME Qty: 30 2RF famotidine 20 mg Tablet 20 mg PO BEDTIME multivitamin [Daily-Rip] Tablet 1 tab PO DAILY Qty: 30 0RF quetiapine 25 mg Tablet 75 mg PO BID Qty: 42 4RF divalproex 250 mg Tablet,Delayed Release (Dr/Ec) 250 mg PO BID Qty: 14 2RF fluticasone furoate-vilanterol [Breo Ellipta] 200-25 mcg/dose Blister With Device 1 inh INHALATION DAILY albuterol sulfate [Ventolin HFA] 90 mcg/actuation Hfa Aerosol Inhaler 2 puff INHALATION Q4-6H PRN (Reason: Shortness Of Breath Or Wheezing) clonazepam 0.5 mg Tablet 0.5 mg PO BID PRN (Reason: Anxiety) fluoxetine 20 mg capsule 60 mg PO DAILY Creon 36,000-114,000- 180,000 unit capsule,delayed release(DR/EC) 2 cap PO TIDWM olanzapine 5 mg tablet 5 mg PO TID PRN (Reason: agitation) clonidine HCl 0.1 mg tablet 0.1 mg PO BID PRN (Reason: anxiety) ferrous sulfate 325 mg (65 mg iron) Tablet,Delayed Release (Dr/Ec) 325 mg PO Q OTHER DAY aspirin 81 mg tablet,delayed release (DR/EC) 81 mg PO DAILY mirtazapine 15 mg tablet 15 mg PO BEDTIME esomeprazole magnesium [Nexium] 40 mg capsule,delayed release(DR/EC) 40 mg PO DAILY Qty: 30 5RF Discontinued methadone [Methadone Intensol] 10 mg/mL Concentrate 125 mg PO DAILY sennosides [Natural Senna Laxative] 8.6 mg tablet 17.2 mg PO BEDTIME PRN (Reason: constipation) Discharge Orders: Discharge Order (Routine); Ordered 08/22/24 Ordered By: Rodrick Maya Diet: Advance to usual diet Activity on Discharge: As tolerated Stand Alone Forms: Patient Portal Discharge page Print Language: Somali Health Concerns: pneumonia hypoxia asthma exacerbation suicidal ideation opioid use disorder Plan of Treatment: take cefuroxime 500 mg twice daily PLUS doxycycline 100 mg twice daily for total 5 days take prednisone 40 mg once daily for total 3 days oxygen now normal transfer to inpatient psychiatry for ongoing care split methadone dosing follow up with primary care doctor within 1 week of discharge from psychiatry; repeat chest X-ray in 4-6 weeks
[2024-08-22] MEDS: OLANZapine 5 MG TABLET PO (14:08)
[2024-08-24 18:49] LABS: Testosterone, Free 10.8 pg/mL (35.0-155.0); Testosterone, Total 58 ng/dL (250-1100)
--- NOTE | 2024-08-26 23:36 | PC.NURSE ---
pt was medicated with klonopin 0.5mg po aug 21 2024 at 1958.
[2024-08-29 12:08] LABS: Legionella Ag Urine Not Detected; Strep Pneumo Ag urine Not Detected
== END 2024-08-22 14:56 | DRG 139 ==
LOC: HO.ED 10:11 → HO.PM5 08-16 13:53 → HO.EDOVER 08-16 16:34 → HO.S3 08-16 19:08
PROVIDERS: Physician Assistant; Psychiatry & Neurology Psychiatry; Admitting Provider Family Medicine; Emergency Provider Emergency Medicine; Visit Provider Hospitalist
DX: J18.9 Pneumonia, unspecified organism (principal); J96.01 Acute respiratory failure with hypoxia; R45.851 Suicidal ideations; F11.20 Opioid dependence, uncomplicated; J45.41 Moderate persistent asthma with (acute) exacerbation; F19.10 Other psychoactive substance abuse, uncomplicated; K75.81 Nonalcoholic steatohepatitis (NASH); E66.01 Morbid (severe) obesity due to excess calories; Z68.42 Body mass index [BMI] 45.0-49.9, adult; Z71.3 Dietary counseling and surveillance; Z22.322 Carrier or suspected carrier of Methicillin resistant Staphylococcus aureus; Z79.51 Long term (current) use of inhaled steroids; Z79.82 Long term (current) use of aspirin; Z87.891 Personal history of nicotine dependence; Z79.899 Other long term (current) drug therapy
CPT/HCPCS: 36415; 71250; 76705; 80048; 80053; 80061; 80202; 80307; 82565; 82803; 82947; 83036; 83605; 83880; 84145; 84402; 84403; 84443; 85025; 85027; 86704; 86706; 86803; 87040; 87340; 87389; 87449; 87640; 87641; 87899; 94640; 99285; J0696; J1271; J1650; J1956; J2405; J3370; J3371; S9485

== ENCOUNTER 2024-08-16 12:42 | Outpatient (BNV) | payer MEDICAID, SELFPAY | END 2024-08-16 14:33 | PROVIDERS: Admitting Provider Psychiatry & Neurology Psychiatry; Emergency Provider Emergency Medicine; Visit Provider Radiology Diagnostic Radiology | DX: J18.1 Lobar pneumonia, unspecified organism (principal); R16.1 Splenomegaly, not elsewhere classified | CPT/HCPCS: 71250; 76705 ==

== ENCOUNTER → 2024-08-16 16:14 | Outpatient (BNV) | payer OTHER, SELFPAY | PROVIDERS: Admitting Provider Family Medicine; Emergency Provider Emergency Medicine; Visit Provider Nurse Practitioner Psychiatric/Mental Health | DX: F11.21 Opioid dependence, in remission (principal) | CPT/HCPCS: 99232 ==

== ENCOUNTER → 2024-08-16 16:14 | Outpatient (BNV) | payer MEDICAID, SELFPAY | PROVIDERS: Admitting Provider Family Medicine; Emergency Provider Emergency Medicine; Visit Provider Family Medicine | DX: R45.851 Suicidal ideations (principal); F41.9 Anxiety disorder, unspecified; R45.850 Homicidal ideations; R44.3 Hallucinations, unspecified; F11.90 Opioid use, unspecified, uncomplicated | CPT/HCPCS: 99223 ==

== ENCOUNTER 2024-08-22 15:04 | Inpatient (IN) | payer MEDICAID, OTHER, SELFPAY ==
--- NOTE | ~2024-08-22 | XR_ITS ---
CLINICAL HISTORY: Shortness of breath 2 view chest x-ray Comparison: 08/15/2024 Findings: Lungs are clear without acute infiltrates. No pneumothorax. Heart size normal. No acute bony abnormalities. Impression: No acute processes This document has been electronically signed by: Rajinder Vigil MD on 08/26/2024 19:20:45
[2024-08-22 15:05] VITALS: BP 160/98; PULSE 57; TEMP 36.1; O2SAT 95
[2024-08-22 15:35] VITALS: BMI 45.4
--- OUTSIDE RECORDS SUMMARY | 2024-08-22 16:10 | XMS_ITS | Encounter Summary ---
Author Organization [employer] Address [address] [facility] 7[address] [place] [address] Care Team Providers Care Trial Consultant Name Role Phone Roma Bender Primary Care Provider [phone] Neetu Bah Unavailable [phone] Lesia Tran MD Primary Care Provider + Encounter Details Date Type Department Care Team (Late st Contact Info) Description 02/19/2023 Orders Only [facility] CHC MED & PEDS [address] [place] [address] Roma Bender FNP [address] [place] [address] Other acute gastritis, presence of bleeding unspecified [...] Care Team (Late st Contact Info) Description 09/20/2024 3:30 PM EDT Office Visit [facility] ADULT DENTAL [address] [place] [address] Trenton Wilkerson DDS [address] [place] [address] 10/02/2024 1:00 PM EDT Office Visit [facility] OPTOMETRY [address] [place] [address] TarMariah harris, OD [address] [place] [address] documented as of this encounter Visit Diagnoses Diagnosis Other acute gastritis, presence of bleeding unspecified- Primary documented in this encounter Additional Health Concerns Assessment Noted Time PHQ-9 Depression Total Score: 11 023 3:14 PM EDT documented as of this encounter Care Teams Trial Consultant Relationship Specialty Start Date End Date Roma Bender FNP [address] [place] [address] PCP - General Family Medicine 01/14/23 12/06/23 Lesia Tran MD [address] [place] [address] PCP - General Internal Medicine 12/07/23 Neetu Bah AGNP [address] [place] [phone] Family Medicine 01/14/23 09/02/23 documented as of this encounter
--- OUTSIDE RECORDS SUMMARY | 2024-08-22 16:10 | XMS_ITS | Clinical Summary ---
Author Organization [facility] Address [address] [place] [address] Phone Care Team Providers Care Director Advanced Name Role Phone Az Terrell Primary Care Provider [phone] Immunizations Immunization Administration Dates Next Due DTP [...] age to complete this topic Care Teams Director Advanced Relationship Specialty Start Date End Date Az Terrell [address] [place] [address] PCP - General 11/13/16
--- OUTSIDE RECORDS SUMMARY | 2024-08-22 16:10 | XMS_ITS | Encounter Summary ---
Author Organization [employer] Address [address] [place] [address] 7t [place] [address] Care Team Providers Care Gold Leaf Printer Name Role Phone Roma Bender Primary Care Provider [phone] Neetu Bah [facility] Unavailable [phone] Lesia Tran MD Primary Care Provider + Reason for Visit * Reason Onset Date Comments Medication Question 05/04/2023 Encounter Details Date Type Department Care Team (Late st Contact Info) Description 05/04/2023 Telephone [facility] MEDICINE [address] [place] [address] Roma Bender FNP [address] [place] [address] Medication Question Social History Tobacco Use Types [...] 50 MG tablet prescribed by pcp at [facility] today 05/04/23, was prescribed for 1 time daily but it was supposed to be 2 times daily. Any questions please contact [phone]. documented in this encounter Plan of Treatment Upcoming Encounters Date Type Department Care Team (Late st Contact Info) Description 09/20/2024 3:30 PM EDT Office Visit [facility] ADULT DENTAL [address] [place] [address] Trenton Wilkerson DDS [address] [place] [address] 10/02/2024 1:00 PM EDT Office Visit [facility] OPTOMETRY [address] [place] [address] Mariah Villaseñor, OD [address] [place] [address] documented as of this encounter Visit Diagnoses Not on filedocumented in this encounter Additional Health Concerns Assessment Noted Time PHQ-9 Depression Total Score: 11 023 3:14 PM EDT documented as of this encounter Care Teams Gold Leaf Printer Relationship Specialty Start Date End Date Roma Bender FNP [address] [place] [address] PCP - General Family Medicine 01/14/23 12/06/23 Lesia Tran MD [address] [place] [address] PCP - General Internal Medicine 12/07/23 Neetu Bah AGNP [address] [place] [phone] Family Medicine 01/14/23 09/02/23 documented as of this encounter
--- OUTSIDE RECORDS SUMMARY | 2024-08-22 16:11 | XMS_ITS | Encounter Summary ---
Author Organization [employer] Address [address] [place] [address] 7t [place] [address] Care Team Providers Care Quality Assurance Name Role Phone Neetu Bah Primary Care Provider Roma Bender Primary Care Provider [phone] Neetu Bah Unavailable [phone] Lesia Tran MD Primary Care Provider + Encounter Details Date Type Department Care Team (Late st Contact Info) Description 09/28/2022 Abstract [facility] ADULT DENTAL [address] [place] [address] Trenton Wilkerson DDS [address] [place] [address] Social History Tobacco Use Types Packs/Day Years [...] Description 09/20/2024 3:30 PM EDT Office Visit [facility] ADULT DENTAL [address] [place] [address] Trenton Wilkerson DDS [address] [place] [address] 10/02/2024 1:00 PM EDT Office Visit [facility] OPTOMETRY [address] [place] [address] Mariah Villaseñor, OD [address] [place] [address] documented as of this encounter Visit Diagnoses Not on filedocumented in this encounter Care Teams Quality Assurance Relationship Specialty Start Date End Date Neetu Bah AGNP [address] [place] [phone] PCP - General Family Medicine 11/28/20 01/13/23 Roma Bender FNP [address] [place] [address] PCP - General Family Medicine 01/14/23 12/06/23 Lesia Tran MD [address] [place] [address] PCP - General Internal Medicine 12/07/23 Neetu Bah AGNP [address] [place] [phone] Family Medicine 01/14/23 09/02/23 documented as of this encounter
--- OUTSIDE RECORDS SUMMARY | 2024-08-22 16:11 | XMS_ITS | Encounter Summary ---
Author Organization [employer] Address [address] [place] [address] 7t [place] [address] Care Team Providers Care Private Tutors And Teachers Name Role Phone Neetu Bah Primary Care Provider Roma Bender Primary Care Provider [phone] Neetu Bah Unavailable [phone] Lesia Tran MD Primary Care Provider + Encounter Details Date Type Department Care Team (Late st Contact Info) Description 09/29/2022 Abstract [facility] ADULT DENTAL [address] [place] [address] Trenton Wilkerson DDS [address] [place] [address] Social History Tobacco Use Types Packs/Day Years [...] Description 09/20/2024 3:30 PM EDT Office Visit [facility] ADULT DENTAL [address] [place] [address] Trenton Wilkerson DDS [address] [place] [address] 10/02/2024 1:00 PM EDT Office Visit [facility] OPTOMETRY [address] [place] [address] Mariah Villaseñor, OD [address] [place] [address] documented as of this encounter Visit Diagnoses Not on filedocumented in this encounter Care Teams Private Tutors And Teachers Relationship Specialty Start Date End Date Neetu Bah AGNP [address] [place] [phone] PCP - General Family Medicine 11/28/20 01/13/23 Roma Bender FNP [address] [place] [address] PCP - General Family Medicine 01/14/23 12/06/23 Lesia Tran MD [address] [place] [address] PCP - General Internal Medicine 12/07/23 Neetu Bah AGNP [address] [place] [phone] Family Medicine 01/14/23 09/02/23 documented as of this encounter
--- OUTSIDE RECORDS SUMMARY | 2024-08-22 16:11 | XMS_ITS | Encounter Summary ---
Author Organization [employer] Address [address] [place] [address] 7t [place] [address] Care Team Providers Care Roving Department Supervisor Name Role Phone Lesia Tran MD Primary Care Provider + Reason for Visit * Reason Onset Date Comments rs appt/disconnected call 06/29/2024 Encounter Details Date Type Department Care Team (Late st Contact Info) Description 06/29/2024 Telephone [facility] ADULT DENTAL [address] [place] [address] Trenton Wilkerson DDS [address] [place] [address] rs appt/disconnected call Social History Tobacco Use [...] I was on the line with front edger [facility] the patient disconnected the call.. The [...] Description 09/20/2024 3:30 PM EDT Office Visit [facility] ADULT DENTAL [address] [place], [place] [phone] Trenton Wilkerson, SHELLI [address] [place] [address] 10/02/2024 1:00 PM EDT Office Visit [facility] OPTOMETRY [address] [place] [address] Kasi Mariah, OD [address] [place] [address] documented as of this encounter Visit Diagnoses Not on filedocumented in this encounter Additional Health Concerns Assessment Noted Time PHQ-9 Depression Total Score: 21 024 2:23 PM EST documented as of this encounter Care Teams Roving Department Supervisor Relationship Specialty Start Date End Date Lesia Tran MD [address] [place] [address] PCP - General Internal Medicine 12/07/23 documented as of this encounter
--- OUTSIDE RECORDS SUMMARY | 2024-08-22 16:11 | XMS_ITS | Encounter Summary ---
Author Organization [employer] Address [address] [place] [address] 7t [place] [address] Care Team Providers Care Ob Nurse Name Role Phone Lesia Tran MD Primary Care Provider + Reason for Visit * Reason Onset Date Comments medication 02/02/2024 Encounter Details Date Type Department Care Team ([facility] st Contact Info) Description 02/02/2024 Telephone [facility] ADULT DENTAL [address] [place] [address] Trenton Wilkerson, SHELLI [address] [place] [address] medication Social History Tobacco Use Types Packs/Day [...] your housing situation today? I have amando pippa 02/02/[address] you li [...] Description 09/20/2024 3:30 PM EDT Office Visit [facility] ADULT DENTAL [address] [place], [place] [phone] Trenton Wilkerson, DDS [address] [place] [address] 10/02/2024 1:00 PM EDT Office Visit [facility] OPTOMETRY [address] [place] [address] Mariah Villaseñor, OD [address] [place] [address] documented as of this encounter Visit Diagnoses Not on filedocumented in this encounter Additional Health Concerns Assessment Noted Time PHQ-9 Depression Total Score: 21 06/09/ 024 2:23 PM EST documented as of this encounter Care Teams Ob Nurse Relationship Specialty Start Date End Date Lesia Tran MD [address] [place] [address] PCP - General Internal Medicine 12/07/23 documented as of this encounter
--- OUTSIDE RECORDS SUMMARY | 2024-08-22 16:11 | XMS_ITS | Encounter Summary ---
Author Organization [employer] Address [address] [place] [address] 7 [place] [address] Care Team Providers Care Annealing Operator Name Role Phone Neetu Bah Primary Care Provider Roma Bender Primary Care Provider [phone] Neetu Bah Unavailable [phone] Lesia Tran MD Primary Care Provider + Reason for Visit * Reason Onset Date Comments New Patient 11/18/2022 Encounter Details Date Type Department Care Team (Late st Contact Info) Description 11/18/2022 Telephone [facility] MEDICINE [address] [place] [address] Koby Holland MD [address] [place] [address] New Patient Social History Tobacco Use Types [...] 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 EFFECTIVE SINCE 11/24/2022 * Telephone Encounter - Mauryyarelisjoaquinluis angel Elliot Lopes - 11/18/2022 10:33 AM EDT Tc to Pt , informed that we do take insurance, but must call [employer] to change location. Once done, to please call back to facility at [phone] documented in this encounter Plan of Treatment Upcoming Encounters Date Type Department Care Team (Late st Contact Info) Description 09/20/2024 3:30 PM EDT Office Visit [facility] ADULT DENTAL [address] [place] [address] Trenton Wilkerson DDS [address] [place] [address] 10/02/2024 1:00 PM EDT Office Visit [facility] OPTOMETRY [address] [place] [address] Mariah Villaseñor, OD [address] [place] [address] documented as of this encounter Visit Diagnoses Not on filedocumented in this encounter Care Teams Annealing Operator Relationship Specialty Start Date End Date Neetu Bah AGNP [address] [place] [phone] PCP - General Family Medicine 11/28/20 01/13/23 Roma Bender FNP [address] [place] [address] PCP - General Family Medicine 01/14/23 12/06/23 Lesia Tran MD [address] [place] [address] PCP - General Internal Medicine 12/07/23 Neetu Bah AGNP [address] [place] [phone] Family Medicine 01/14/23 09/02/23 documented as of this encounter
--- OUTSIDE RECORDS SUMMARY | 2024-08-22 16:11 | XMS_ITS | Encounter Summary ---
Author Organization [employer] Address [address] [place] [address] 7t [place] [address] Care Team Providers Care Traffic Rate Computer Name Role Phone Lesia Tran MD Primary Care Provider + Reason for Visit * Reason Onset Date Comments Nurse Triage 06/16/2024 Encounter Details Date Type Department Care Team (Late st Contact Info) Description 06/16/2024 Telephone [facility] MEDICINE [address] [place] [address] Lesia Tran MD [address] [place] [address] Nurse Triage Social History Tobacco Use Types [...] appt from yesterday as he was in [facility] ED ( note requested) Patient with reported [...] is in agreement to reach out to [facility] and Crisis as needed. Has concerns [...] had contact with Care Coordinators here at [facility] and is requesting additional help. Patient agrees to have [facility] reach out to him with worsening symptoms. Has previously seen Curtis Chavez [facility] and message to [facility] sent. Disposition reviewed and patient in agreement [...] - 06/16/2024 10:29 AM EDT Please obtain [facility] note from visit on 06/15/24. Patient scheduled with PCP on Wednesday06/20/24. * Telephone Encounter - Kenisha Mtz - 06/16/2024 9:52 AM EDT Symptoms: Abdominal Pain - Male, Abdominal Swelling Outcome: Schedule an urgent appointment (within 4 hours) or talk to a nurse or provider soon Reason: Started within the past 3 days The caller accepted this outcome. [phone] documented in this encounter Plan of Treatment Upcoming Encounters Date Type Department Care Team (Late st Contact Info) Description 09/20/2024 3:30 PM EDT Office Visit [facility] ADULT DENTAL [address] [place] [address] Trenton Wilkerson DDS [address] [place] [address] 10/02/2024 1:00 PM EDT Office Visit [facility] OPTOMETRY [address] [place] [address] TarkaMariah, OD [address] [place] [address] documented as of this encounter Visit Diagnoses Not on filedocumented in this encounter Additional Health Concerns Assessment Noted Time PHQ-9 Depression Total Score: 21 03/2 024 2:23 PM EST documented as of this encounter Care Teams Traffic Rate Computer Relationship Specialty Start Date End Date Lesia Tran MD [address] [place] [address] PCP - General Internal Medicine 12/07/23 documented as of this encounter
--- OUTSIDE RECORDS SUMMARY | 2024-08-22 16:11 | XMS_ITS | Encounter Summary ---
Author Organization [employer] Address [address] [place] [address] 7t [place] [address] Care Team Providers Care Food Server Name Role Phone Lesia Tran MD Primary Care Provider + Reason for Visit * Reason Onset Date Comments FYI 08/22/2024 Encounter Details Date Type Department Care Team ([facility] st Contact Info) Description 08/22/2024 Telephone [facility] MEDICINE [address] [place] [address] Lesia Tran MD [address] [place] [address] FYI Social History Tobacco Use Types Packs/Day Years [...] Telephone Encounter - Vanessa Bustamante RN - 08/22/2024 9:22 AM EDT Noted, to f/up upon discharge * Telephone Encounter - Kenisha Mtz - 08/22/2024 9:14 AM EDT Tc from pt to report was admitted at [facility] because of panic attacks and pneumonia. [facility]. Any questions contact pt mom [phone] documented in this encounter Plan of Treatment Upcoming Encounters Date Type Department Care Team (Late st Contact Info) Description 09/20/2024 3:30 PM EDT Office Visit [facility] ADULT DENTAL [address] [place] [address] Trenton Wilkerson DDS [address] [place] [address] 10/02/2024 1:00 PM EDT Office Visit [facility] OPTOMETRY [address] [place] [address] Katherinesteven Mariah, OD [address] [place] [address] documented as of this encounter Visit Diagnoses Not on filedocumented in this encounter Additional Health Concerns Assessment Noted Time PHQ-9 Depression Total Score: 22 025 2:01 PM EDT documented as of this encounter Care Teams Food Server Relationship Specialty Start Date End Date Lesia Tran MD [address] [place] [address] PCP - General Internal Medicine 12/07/23 documented as of this encounter
--- OUTSIDE RECORDS SUMMARY | 2024-08-22 16:11 | XMS_ITS | Encounter Summary ---
Author Organization [employer] Address [address] [place] [address] 7t [place] [address] Care Team Providers Care Parts Professional Name Role Phone Lesia Tran MD Primary Care Provider + Reason for Visit * Reason Comments Pre-visit Planning HDF unscheduled unab le to LVM Encounter Details Date Type Department Care Team ([facility] st Contact Info) Description 08/18/2024 Patient Outreach [facility] MEDICINE [address] [place] [address] Lesia Tran MD [address] [place] [address] Pre-visit Planning (HDF unscheduled unable to LVM ) Social History Tobacco Use Types Packs/Day Years [...] as of this encounter Progress Notes * Indu Fine - 08/18/2024 10:02 AM EDT CC Indu Britt placed outbound call to patient for HDF outreach. CC placing call to offer patient with an HDF appointment with provider. No answer at this time. Patient's name and were not confirmed. Patient was [facility] [place] [facility] [place]27/[facility]- 07/31/24 DX major depressive disorder, Opioid use disorder, anxiety and had been scheduled for 08/17/24 however appt had been cancelled due to pt still being admitted. CC unable to leave a message due to [phone] attempting use has been restricted or is unavailable documented in this encounter Plan of Treatment Upcoming Encounters Date Type Department Care Team (Late st Contact Info) Description 09/20/2024 3:30 PM EDT Office Visit [facility] ADULT DENTAL [address] [place] [address] Trenton Wilkerson DDS [address] [place], [place] [phone] 10/02/2024 1:00 PM EDT Office Visit [facility] [address] [place], [place] [phone] Mariah Villaseñor, OD [address] [place] [address] documented as of this encounter Visit Diagnoses Not on filedocumented in this encounter Additional Health Concerns Assessment Noted Time PHQ-9 Depression Total Score: 22 025 2:01 PM EDT documented as of this encounter Care Teams Parts Professional Relationship Specialty Start Date End Date Lesia Tran MD [address] [place], [place] [phone] PCP - General Internal Medicine 12/07/23 documented as of this encounter
--- OUTSIDE RECORDS SUMMARY | 2024-08-22 16:11 | XMS_ITS | Encounter Summary ---
Author Organization [employer] Address [address] [place] [address] 7t [place] [address] Care Team Providers Care Cotton Cleaner Name Role Phone Neetu Bah Primary Care Provider Roma Bender Primary Care Provider [phone] Neetu Bah Unavailable [phone] Lesia Tran MD Primary Care Provider + Encounter Details Date Type Department Care Team (Late st Contact Info) Description 09/29/2022 Abstract [facility] ADULT DENTAL [address] [place] [address] Trenton Wilkerson DDS [address] [place] [address] Social History Tobacco Use Types Packs/Day Years [...] 09/20/2024 3:30 PM EDT Office Visit [facility] ADULT DENTAL [address] [place] [address] Trenton Wilkerson DDS [address] [place] [address] 10/02/2024 1:00 PM EDT Office Visit [facility] OPTOMETRY [address] [place] [address] Mariah Villaseñor, OD [address] [place] [address] documented as of this encounter Visit Diagnoses Not on filedocumented in this encounter Care Teams Cotton Cleaner Relationship Specialty Start Date End Date Neetu Bah AGNP [address] [place] [phone] PCP - General Family Medicine 11/28/20 01/13/23 Roma Bender FNP [address] [place] [address] PCP - General Family Medicine 01/14/23 12/06/23 Lesia Tran MD [address] [place] [address] PCP - General Internal Medicine 12/07/23 Neetu Bah AGNP [address] [place] [phone] Family Medicine 01/14/23 09/02/23 documented as of this encounter
--- OUTSIDE RECORDS SUMMARY | 2024-08-22 16:11 | XMS_ITS | Clinical Summary ---
Author Organization [employer] Address [address] [facility] 7t [place] [address] Care Team Providers Care Pure Pak Machine Operator Name Role Phone Andrea Amor MD Primary [...] mouth at bedtime. 06/10/19 25 Active Creon [id number] units capsule delayed-relea se particles capsule Take [...] apnea) 02/11/2024 Overview (02/11/2024): Sleep study at [facility]: moderate TYSON with nocturnal hypoxemia, <88% 24.1 minutes, lowest 77%. Assessment & Plan (06/20/2024 1:12 PM EDT): Pt has not been able to use CPAP, will call sleep specialist to check next appointment. Advised regarding weight reduction, consider Zepbound. Consider Hypoglossal nerve stimulator implant. Fu with sleep specialist. Assessment & Plan (02/11/2024 3:58 PM EST): [facility] Mild persistent asthma 02/11/2024 Assessment & Plan (02/11/2024 4:00 PM EST): Doing well on Breo, fu by [facility] pulmonary Advised re weight reduction. Declined Influenza [...] Plan (02/11/2024 4:01 PM EST): FU by [facility] GI, on Protonix, senna prn constipation Advised [...] moderate intensity exercise. Will hold referral to online health and fitness coach until next appointment once anxiety is better [...] ID: Yaniv is a 37 y.o. White Turkish choose not to disclose-identified cis- male (pronouns he/him/his) with services including [facility] Psychotherapy psychopharmacology. Self reported dx of [...] 2.5 years, currently on methadone at [facility], 128mg with a plan on [...] intervention , Patient [facility], and Patient [...] vaping cannabis Advised to reach out to investment recovery technician at the methadone program, avoid using any other recreational substance or alcohol Assessment & Plan (07/27/2024 2:58 PM EDT): >>ASSESSMENT AND PLAN FOR ANXIETY WRITTEN ON 02/11/2024 4:04 PM BY ANDREA AMOR MD Seen by provider at [facility], will [...] advised to reach out to therapist or investment recovery technician (he will request one at methadone program). [...] PM EST): Doing well on Methadone at [facility], has take home bottles Advised to decrease use of THC Encounters * This document contains information received from the source organization and may not represent a complete record from that organization. Date Type Department Care Team Description 08/22/2024 Telephone [facility] MEDICINE [address] [place] [phone] Andrea Amor MD FYI 08/18/2024 Patient Outreach [address] [address] Andrea Amor MD Pre-visit Planning (HDF unscheduled unable to LVM ) 08/08/[address] [address] Ava Timmons PharmD Medication Teaching 08/08/[address] [address] Andrea Amor MD 08/01/2024 Patient Outreach [facility] MEDICINE [address] [place] [address] Andrea Amor MD Transition Of Care (Tcm) (HDF scheduled and SDOH screening completed on 06/08/24) 08/01/[address] [address] Andrea Amor MD HDF follow up 08/01/2024 Travel 07/23/[address] [address] Andrea Amor MD 07/21/2024 Travel 07/20/[address] [address] Andrea Amor MD Prior Authorization ( PA Request: Zepbound) 07/18/[address] [address] Andrea Amor MD 07/17/2024 Patient Outreach [address] [address] Andrea Amor MD Care Coordination ([facility] telephone call outreach) 07/13/2024 10:45 AM EDT Office Visit [address] [address] Andrea Amor MD Morbid obesity (CMS/HCC) (Primary Dx); Generalized anxiety disorder with panic attacks; Anxiety; Dietary counseling; Exercise counseling 07/13/2024 Travel 07/12/[address] [address] Andrea Amor MD Chart prep 07/11/2024 Travel 07/07/[address] [address] Andrea Amor MD Appointment Request 07/04/2024 Travel 07/03/2024 Patient Outreach [address] [address] Andrea Amor MD Care Coordination ([facility] telephone call outreach) 06/29/2024 Patient Outreach [facility] [address] [place] [address] Andrea Amor MD Transition Of Care (Tcm) (HDF scheduled.) 06/29/2024 Telephone [facility] ADULT DENTAL [address] [place] [phone] Trenton Wilkerson DDS rs appt/disconnected call 06/28/[address] [address] Andrea Amor MD Care Management (C3CM- Initial assessment/LVM) 06/27/2024 Patient Outreach [address] [address] Andrea Amor MD Care Coordination ([address] [facility] telephone call outreach) 06/26/2024 Orders Only GENERIC EXTERNAL DATA DEPARTMENT Provider, Generic External Data 06/26/2024 Travel 06/23/2024 Travel 06/20/2024 11:30 AM EDT Office Visit [address] [address] Andrea Amor MD Generalized anxiety disorder with panic attacks (Primary Dx); IFG (impaired fasting glucose); Morbid obesity (CMS/HCC); TYSON (obstructive sleep apnea); Hyperglycemia 06/17/2024 Travel 06/16/2024 Travel 06/16/2024 [facility] Risk Score [facility] (C3) Department [address] [place] [phone] Provider, Population Health Generic 06/16/[address] [address] Andrea Amor MD Nurse Triage 06/15/[address] [address] Andrea Amor MD No Show 06/14/2024 Patient Outreach [address] [address] Andrea Amor MD Care Coordination ([address] [facility] telephone call outreach) 06/12/[address] [address] Andrea Amor MD Chart prep 06/08/2024 Travel 06/08/2024 Patient Outreach [address] [address] Andrea Amor MD Pre-visit Planning (SDOH screening negative and tobacco screening positive) 06/05/[address] [address] Andrea Amor MD Care Management ([facility]- chart review) 06/02/2024 10:00 AM EST Office Visit [facility] ADULT DENTAL [address] [place] [address] Trenton Wilkerson DDS Complete edentulism, unspecified edentulism class (Primary Dx) 05/29/2024 Travel from Last 3 Months Immunizations Immunization Administration Dates Next Due DTP [...] Description 09/20/2024 3:30 PM EDT Office Visit [facility] ADULT DENTAL [address] [place] [address] Trenton Wilkerson DDS [address] [place], [place] [phone] 10/02/2024 1:00 PM EDT Office Visit [facility] [address] [place] [address] Mariah Villaseñor, OD [address] [place] [address] Health Maintenance Due Date Last Done Comments Dental Prophylaxis 1987 Alcohol/Substance Use Screening 1999 Family Planning (PISQ) 06/23/2002 Pneumococcal Vaccine: Pediatrics (0 to 5 Years) and At-Risk Patients (6 to 49) Years) (1 of 2 - PCV) 06/23/2006 Dental X-Ray: Bitewings 02/21/2015 02/20/2014 COVID-19 Vaccine ( season) 2023 09/11/2020, 07/30/2020 Influenza Vaccine (#1) 2023 , 01/28/2022, 07/14/2021 Dental Oral Exam 10/11/2024 04/12/2024, 02/20/2014 Disability Screening 06/08/2025 06/08/2024 SDOH Screening 06/08/2025 06/08/2024 Diabetes: Hemoglobin A1C 06/20/2025 06/20/2024, 03/08/2023 Depression Screening 07/25/2025 07/25/2024, 07/26/19 25 Tobacco [...] this topic Hepatitis C Screening Discontinued Meningococcal B Vaccine Aged Out No l onger eligible based on patient's age to complete [...] PM EDT) Influenza A PCR NEGATIVE Negative [facility] Influenza B PCR NEGATIVE Negative [facility] Resp Syncy Virus RNA Qual PCR NEGATIVE Negative [facility] SARS COV2 PCR NEGATIVE Negative [facility] Comment:All test results mus t [...] use by authorized laboratories.Testing performed on the [employer] GeneXpert utilizingreal-time RT-PCR.All SARS CoV2 and positive influenza A/B results arereported to [facility]. 06/26/2024 5:18 PM EDT 06/26/2024 5:26 PM EDT us Generic External Data Provider LAB MICROBIOLOGY - GENERAL ORDERABLES Final Result [facility] [address] [place] [phone] [phone] * (ABNORMAL) Drug Monitoring, Panel 1, [...] Phencyclidine Screen Urine Not Detected Not Detect [facility] Comment:Phencyclidine cut-of f is 25 [...] Final Result Performing Organization Address [facility] [place] [facility]/ZIP Co de Phone Number [facility] [address] [place] [phone] * Urinalysis w/reflex microscopic (06/26/2024 5:18 PM EDT) Color Urine Yellow [facility] Appearance Urine Clear [facility] PH 8.0 5.0 - 9.0 [facility] Glucose Urine UA Negative Negative mg/dL [facility] Urine Blood Negative Negative [facility] Specific [place] - Urine 1.025 1.005 - 1.025 [facility] Urine Protein Trace Neg-Trace mg/dL [facility] Urine Ketones Trace Negative mg/dL [facility] Nitrite Urine Negative Negative [facility] Leukocyte Esterase Urine Negative Negative [facility] 06/26/2024 5:18 PM EDT 06/26/2024 5:26 PM EDT Narrative [facility] - 06/26/2024 5:35 PM EDT [id number], Clean Catch us Generic External Data Provider LAB URINE ORDERAB LES Final Result Performing Organization Address [facility] [place] [facility]/ZIP Co de Phone Number [facility] [address] [place] [phone] * Ethanol (06/26/2024 5:08 PM EDT) ETHANOL (MG/DL) IN SER/PLAS <10 mg/dL [facility] Comment:Serum/plasma ethanol results are to be used formedical/treatment purposes only. 06/26/2024 5:08 PM EDT 06/26/2024 5:12 PM EDT Generic External Data Provider LAB BLOOD ORDERAB LES Final Result Performing Organization Address [facility] [place] [facility]/ZIP Co de Phone Number [facility] [address] [place] [phone] * TSH with Reflex to Free T4 (06/26/2024 5:08 PM EDT) Pathologist [facility] TSH reflex Free T4 0.83 0.32 - 4.0 uIU/mL [facility] 06/26/2024 5:08 PM EDT 06/26/2024 5:12 PM EDT Generic External Data Provider LAB BLOOD ORDERAB LES Final Result Performing Organization Address [facility] [place] [facility] Co de Phone Number [facility] [address] [place] [phone] * (ABNORMAL) CBC auto differential (06/26/2024 5:08 PM EDT) Pathologist [facility] White Blood Count 11.6(H) 4.8 - 10.8 X10*3/uL [facility] Red Blood Count 4.83 4.60 - 5.80 X10*6/uL [facility] Hemoglobin 11.7(L) 14.0 - 18.0 g/dl [facility] Hematocrit 37.2(L) 42.0 - 52.0 % [facility] Mean Corpuscular Volume 77.0(L) 80.0 - 98.0 fL [facility] Mean Corpuscular Hemoglobin 24.2(L) 27.0 - 33.0 pg [facility] Mean Corpuscular HGB Conc 31.5 31.0 - 36.0 g/dl [facility] Red Cell Distribution Width 14.6 11.0 - 16.0 % [facility] Platelet Count 264 160 - 400 X10*3/uL [facility] Mean Platelet Volume 8.9(L) 9.4 - 12.4 fL [facility] Neutrophils Percent Auto 82.4(H) 45 - 73 % [facility] Imm Gran Pct Auto 0.5(H) 0.0 - 0.4 % [facility] Lymphocytes Percent Auto 10.7(L) 20 - 40 % [facility] Monocytes Percent Auto 5.5 2 - 11 % [facility] Eosinophils Percent Auto 0.6 0 - 4 % [facility] Basophils Percent Auto 0.3 0 - 2 % [facility] NRBC Pct Auto 0.0 0.0 - 0.2 /100WBC [facility] Neutrophils Absolute Auto 9.6(H) 2.0 - 8.3 x10*3/uL [facility] Imm Gran Abs Auto 0.06(H) 0.00 - 0.03 X10*3/uL [facility] Lymphocytes Absolute Auto 1.2 1.2 - 4.9 X10*3/uL [facility] Monocytes Absolute Auto 0.6 0.1 - 1.2 X10*3/uL [facility] Eosinophils Absolute Auto 0.1 0.0 - 0.4 X10*3/uL [facility] Basophils Absolute Auto 0.0 0.0 - 0.2 X10*3/uL [facility] NRBC Abs Auto 0.000 0.0 - 0.012 X10*3/uL [facility] 06/26/2024 5:08 PM EDT 06/26/2024 5:12 PM EDT us Generic External Data Provider LAB BLOOD ORDERAB LES Final Result [facility] [address] [place] [phone] [phone] * Magnesium (06/26/2024 5:08 PM EDT) Pathologist [facility] Magnesium 1.9 1.6 - 2.6 mg/dL [facility] 06/26/2024 5:08 PM EDT 06/26/2024 5:12 PM EDT Generic External Data Provider LAB BLOOD ORDERAB LES Final Result Performing Organization Address City/[facility]/ZIP Co de Phone Number [facility] [address] [place] [phone] * Lipase (06/26/2024 5:08 PM EDT) Pathologist [facility] Lipase 9 8 - 78 U/L [facility] 06/26/2024 5:08 PM EDT 06/26/2024 5:12 PM EDT Generic External Data Provider LAB BLOOD ORDERAB LES Final Result Performing Organization Address [facility] [place] [facility] Co de Phone Number [facility] [address] [place] [phone] * Creatine Kinase, Total (06/26/2024 5:08 PM EDT) [facility] Creatine Kinase Total 52 38 - 174 U/L [facility] 06/26/2024 5:08 PM EDT 06/26/2024 5:12 PM EDT Generic External Data Provider LAB BLOOD ORDERAB LES Final Result Performing Organization Address [facility] [place] [facility] Co de Phone Number [facility] [address] [place] [phone] * (ABNORMAL) Comprehensive Metabolic Panel (06/26/2024 5:08 PM EDT) Pathologist [facility] Sodium 139 135 - 145 mmol/L [facility] Potassium 4.2 3.3 - 5.1 mmol/L [facility] Chloride 106 96 - 108 mmol/L [facility] Carbon Dioxide 27 22 - 29 mmol/L [facility] Anion Gap 10(L) 12 - 20 [facility] Urea Nitrogen (BUN) 10 9 - 16 mg/dL [facility] Creatinine, Serum 0.89 0.5 - 1.4 mg/dL [facility] Creatinine Clr Calc Pharmacy 126.3 [facility] Comment:eGFR (calculated fro m the MDRD study equation) and eCrCl(calculated from the Cockcroft-Gault equation) are based ondifferent parameters and may not yield comparable results.If eCrCl result is absurd, please check patient'sheight/weight. Estimated Glomerular Filt Rate >60 [facility] Comment:Chronic Kidney Disea se: Estimated GFR < 60 mL/min/1.36z9Mzimoc Kidney Disease: Estimated GFR < 15 mL/min/1.73m2 Glucose 106 60 - 115 mg/dL [facility] Calcium 8.6 8.4 - 10.2 mg/dL [facility] Bilirubin, Total 0.3 0.0 - 1.0 mg/dL [facility] Aspartate Amino Transferase 19 5 - 37 U/L [facility] Alanine Aminotransferase 19 0 - 40 U/L [facility] Total Protein 7.1 6.5 - 8.0 g/dL [facility] Albumin Level 3.7 3.5 - 5.0 g/dL [facility] Alkaline Phosphatase 94 39 - 117 U/L [facility] 06/26/2024 5:08 PM EDT 06/26/2024 5:12 PM EDT us Generic External Data Provider LAB BLOOD ORDERAB LES Final Result [facility] [address] [place] [phone] * POCT HGB A1C (06/20/2024 12:05 PM EDT) Hemoglobin A1C 6.0 4.0 - 6.0 % QC Media Lot # [id number] Lot# Expiration Date ,[id number] Blood 06/20/2024 12:0 5 PM EDT Andrea Amor MD POINT OF CARE TEST ENTER /EDIT ORDERABLES Final Result * POCT Glucose (06/20/2024 12:02 PM EDT) Glucose Blood, POC 114 60 - 200 mg/dL QC Media Lot # [id number] Lot# Expiration Date [id number] Blood Capillary blood specimen / Unknown 06/20/2024 12:02 PM EDT Andrea Amor MD POINT OF CARE TEST ENTER /EDIT ORDERABLES Final Result * (ABNORMAL) Lipid Panel, Standard (06/08/2023 8:20 AM EST) Triglycerides 236(H) <150 mg/dL [facility] Comment:Desirable Triglyceri de: less than 150 [...] 190 mg/dL HDL Cholesterol 33(L) >40 mg/dL [facility] Comment:Desirable HDL: great er than 40 mg/dL Note: This HDL assay may give artificially low results in patients with liver disease. Blood Venous blood specimen / Unknown 06/08/2023 8:20 AM EST 06/08/2023 11:33 AM EST Yesica Ibarra MD LAB BLOOD ORDERAB LES Final Result [facility] [address] [place], [place] [phone] from Last 3 Months or Most Recently Relevant to Health Maintenance [facility] AD[facility] Care Teams Pure Pak Machine Operator Relationship Specialty Start Date End Date Andrea Amor MD [address] [place] [phone] PCP - General Internal Medicine 12/07/23
--- OUTSIDE RECORDS SUMMARY | 2024-08-22 16:11 | XMS_ITS | Encounter Summary ---
Author Organization [employer] Address [address] [place] [address] [address]t [place] [address] Care Team Providers Care Manager Instrumentation Name Role Phone Lesia Tran MD Primary Care Provider + Reason for Visit * Reason Onset Date Comments Med Refill 05/15/2024 Encounter Details Date Type Department Care Team (Late st Contact Info) Description 05/15/2024 Telephone [facility] MEDICINE [address] [place] [address] Lesia Tran MD [address] [place] [address] Med Refill Social History Tobacco Use Types [...] 9:47 AM EST Medication was sent to [id number] on 05/01/24 with 1 refill. * Telephone Encounter - Kenisha Mtz - 05/15/2024 9:43 AM EST TC from pt requesting medication refill. Medications needing refill : hydrOXYzine pamoate (Vistaril) 25 MG capsule To be sent to: [facility]/pharmacy #[id number] - [address] documented in this encounter Plan of Treatment Upcoming Encounters Date Type Department Care Team (Late st Contact Info) Description 09/20/2024 3:30 PM EDT Office Visit [facility] ADULT DENTAL [address] [place] [address] Trenton Wilkerson DDS [address] [place], [place] [phone] 10/02/2024 1:00 PM EDT Office Visit [facility] [address] [place], [place] [phone] Mariah Villaseñor, OD [address] [place] [address] documented as of this encounter Visit Diagnoses Not on filedocumented in this encounter Additional Health Concerns Assessment Noted Time PHQ-9 Depression Total Score: 21 024 2:23 PM EST documented as of this encounter Care Teams Manager Instrumentation Relationship Specialty Start Date End Date Lesia Tran MD [address] [place], [place] [phone] PCP - General Internal Medicine 12/07/23 documented as of this encounter
--- OUTSIDE RECORDS SUMMARY | 2024-08-22 16:11 | XMS_ITS | Encounter Summary ---
Author Organization [employer] Address [address] [place] [address] 7 [place] [address] Care Team Providers Care Instructional Technology Instructor Name Role Phone Lesia Tran MD Primary Care Provider + Reason for Visit * Reason Comments Transition Of Care (Tcm) [facility] scheduled a nd SDOH screening completed on 06/08/24 Encounter Details Date Type Department Care Team (Late st Contact Info) Description 08/01/2024 Patient Outreach [facility] MEDICINE [address] [place] [address] Lesia rTan MD [address] [place] [address] Transition Of Care (Tcm) (HDF scheduled and SDOH screening completed on 06/08/24) Social History Tobacco Use Types Packs/Day Years [...] as of this encounter Progress Notes * Lesia Tran MD - 08/01/2024 10:42 AM EDT Thank you for the discharge summary from 07/27/24 admission. Patient didn't show to today's appt. Can you please reach out to rs appt or do new triage if needed? * Vidhi Reddy RN - 08/01/2024 10:42 AM EDT TC placed to patient [phone] regarding below message. RN left VM for patient to red team nurses. RN will re-attempt in pm. TC placed to patient Mother [phone] regarding below message. Mother reported to RN the the patient has been admitted to the hospital for pneumonia and other medical issues. RN informed patient mother that [facility] will F/U with patient when he is discharged from the hospital. Mother verbalized under standing. Pt to F/U PRN. documented in this encounter Miscellaneous Notes * Significant Event - Indu Fine - 08/01/2024 11:00 AM EDT 08/01/24 1045 Hospital Discharges and Admission for [facility] Type of Visit Hospital Admission Date of Admission/Visit 07/27/24 Date of Discharge 07/31/24 [facility] Diagnosis major depressive disorder, recurrent episode, Opioid use disorder, anxiety Disposition Discharged Home Follow-Up Actions Follow-Up Needed Provider appointment Follow-Up Outcome Spoke to Patient;Booked Appointment Initial Contact Date 08/01/24 CC Indu Britt placed outbound call to patient for HDF outreach. Patient's name and were confirmed. Patient educated on the importance of follow up with provider following inpatient admission. Patient offered an HDF appt. Patient is agreeable to an appointment and has been scheduled for 08/17/24 at10:45am with Dr. Tran however proposal manager writer noticed patient is also scheduled with PCP for a routinefollow up 08/24/24. Please contact patient to confirm if both appts should be kept. Insurance verified prior to scheduling. Patient also notified that a health center pharmacist will be reaching out to them via telephone prior to their scheduled appointment in order to review their medications in preparation for their appointment. Patient advised to bring to appointment a photo id and insurance card. Patient provided with education on contacting the Health Center with any questions or concerns prior to the scheduled appointment. Patient educated on extended clinic hours on Mondays and Wednesdays, and Walk-In Urgent Care Located in [facility]. Patient provided with after-hours line for [facility], , which offer night time triage service and option to transfer to television news video editor provider if needed. CC scanned discharge summary into patient's chart. Biggest concern for appointment at this time is no concerns. Appropriate screenings completed in anticipation of appointment. documented in this encounter Plan of Treatment Upcoming Encounters Date Type Department Care Team (Late st Contact Info) Description 09/20/2024 3:30 PM EDT Office Visit [facility] ADULT DENTAL [address] [place] [address] Trenton Wilkerson DDS [address] [place] [address] 10/02/2024 1:00 PM EDT Office Visit [facility] OPTOMETRY [address] [place], [place] [id number] Mariah Villaseñor, OD [address] [place] [address] documented as of this encounter Visit Diagnoses Not on filedocumented in this encounter Additional Health Concerns Assessment Noted Time PHQ-9 Depression Total Score: 22 025 2:01 PM EDT documented as of this encounter Care Teams Instructional Technology Instructor Relationship Specialty Start Date End Date Lesia Tran MD [address] [place] [address] PCP - General Internal Medicine 12/07/23 documented as of this encounter
[2024-08-22] MEDS: cefuroxime axetiL 500 MG TABLET PO (17:24)
[2024-08-22] MEDS: methADONE HCl 20 MG/2 ML ORAL.CONC 25 MG PO (17:24)
[2024-08-22] MEDS: Doxycycline Monohydrate 100 MG CAPSULE PO (17:24)
--- NOTE | 2024-08-22 18:14 | PC.ADMIT ---
39 y/o male admitted to at 1500 from [facility] medical floor. Pt BIBA to ED on 08/15/24 for c/o respiratory sx and GI discomfort. Pt also endorsed VH of shadows and SI with plan to stab himself in the neck or jump off a building. Pt was admitted to medicine for treatment of pneumonia, after episode of hypoxia in the ED. Pt was medically cleared today and admitted to for SI and medication management. Initially pt was agitated and resistive to psych admission, reportedly wanting to discharge home from medicine, and then upset that he was admitted to M5 vs M3. Pt accepted PO Zyprexa and Klonopin on medical floor before transport to unit. On arrival pt was less irritable, and was cooperative with safety check. Skin remarkable for scattered bruising on bilateral arms and lower abdomen. Pt signed release of information for his mother, but declined to participate in most of the admission process. Pt reported that he frequently seeks ED treatment when he feels pale, clammy, and then hot and cold. My throat closes up too. They give me Ativan, IV Ativan and that helps. Pt reported he believed symptoms were a vasovagal response and often occurred during bowel movements. Pt reported SI statements only made when symptomatic, otherwise does not feel SI. Utox positive for marijuana and methadone. Addictions team consult on 08/17 for MAT. Pt currently receives Methadone 100mg in am and 25mg in evening, but stated he may want to adjust that tomorrow. Pt to continue on PO antibiotics for pneumonia. Pt denied active SI/HI/AVH on admission, but reported occasional VH of shadows. Pt signed CV on arrival, and then signed a 3DN. Pt placed on 15 minute checks for safety.
[2024-08-22 20:00] VITALS: BP 125/77; PULSE 88; TEMP 36.6; O2SAT 95
[2024-08-22] MEDS: Sennosides/Docusate Sodium TABLET 2 TAB PO (20:48)
[2024-08-22] MEDS: QUEtiapine Fumarate 25 MG TABLET 75 MG PO (20:49)
[2024-08-22] MEDS: Mirtazapine 15 MG TABLET PO (20:49)
[2024-08-22] MEDS: Famotidine 20 MG TABLET PO (20:49)
[2024-08-22] MEDS: clonazePAM 0.5 MG TABLET PO (20:49)
[2024-08-22] MEDS: Magnesium Oxide 400 MG TABLET PO (20:49)
[2024-08-22] MEDS: Divalproex Sodium 250 MG TABLET.DR PO (20:50)
[2024-08-23] MEDS: Omeprazole 20 MG CAPSULE.DR PO (05:41)
[2024-08-23] MEDS: cefuroxime axetiL 500 MG TABLET PO ×2 (05:42→20:18)
[2024-08-23] MEDS: Doxycycline Monohydrate 100 MG CAPSULE PO ×2 (05:42→20:18)
[2024-08-23] MEDS: methADONE HCl 20 MG/2 ML ORAL.CONC 100 MG PO (07:43)
[2024-08-23 08:00] VITALS: BP 138/87; PULSE 86; RESP 16; TEMP 36.5; O2SAT 95
[2024-08-23 08:20] LABS: Alanine Aminotransferase 34 U/L (0-40); Albumin Level 3.7 g/dL (3.5-5.0); Alkaline Phosphatase 89 U/L (39-117); Anion Gap 15 (12-20); Aspartate Amino Transferase 35 U/L (5-37); Bilirubin Total 0.4 mg/dL (0.0-1.0); Blood Urea Nitrogen 17 mg/dL (9-16); Calcium 8.8 mg/dL (8.4-10.2); Carbon Dioxide 24 mmol/L (22-29); Chloride 102 mmol/L (96-108); Cholesterol 179 mg/dL (<200); Creatinine Clr Calc Pharmacy 160.9; Estimated Average Glucose 120 mg/dL; Estimated Glomerular Filt Rate > 60; Glucose Random 93 mg/dL (60-115); HDL Cholesterol 50 mg/dL (>40); Hemoglobin A1C 133.5438 umol/L; Hemoglobin A1c % 5.8 % (<6.0); LDL Cholesterol Calculated 105 mg/dL (<100); Potassium 4.5 mmol/L (3.3-5.1); Sodium 136 mmol/L (135-145); Total Hemoglobin (HGBA1C) 3342.1561 umol/L; Total Protein 7.5 g/dL (6.5-8.0); Triglycerides 124 mg/dL (<150)
[2024-08-23 08:23] LABS: TSH reflex Free T4 1.32 uIU/mL (0.32-4.0)
[2024-08-23] MEDS: Lipase/Prot/Amylase 12/38/60K CAPSULE.DR 2 CAP PO ×3 (08:23→17:01)
[2024-08-23] MEDS: FLUoxetine HCl 20 MG CAPSULE 60 MG PO (08:24)
[2024-08-23] MEDS: polyethylene glycoL 3350 17 GM POWD.PACK PO (08:24)
[2024-08-23 08:25] VITALS: BP 138/86
[2024-08-23] MEDS: cloNIDine HCL 0.1 MG TABLET PO ×3 (08:25→20:18)
[2024-08-23] MEDS: clonazePAM 0.5 MG TABLET PO ×3 (08:25→20:35)
[2024-08-23] MEDS: Ferrous Sulfate 324 MG TABLET.DR PO (08:25)
[2024-08-23] MEDS: Divalproex Sodium 250 MG TABLET.DR PO ×2 (08:25→20:19)
[2024-08-23] MEDS: Aspirin 81 MG TAB.CHEW PO (08:25)
[2024-08-23] MEDS: Multivitamin TABLET 1 TAB PO (08:25)
[2024-08-23] MEDS: QUEtiapine Fumarate 25 MG TABLET 75 MG PO ×2 (08:27→20:18)
--- NOTE | 2024-08-23 09:53 | HO.PSYADMNOT ---
HPI Date of Service: 08/23/24 Chief Complaint: SI Sources of Information: patient interviewed, chart reviewed and crisis/core team assessment reviewed HPI Subjective Notes: Le Warning, Conditional Voluntary and 3 Day Narrative: 39 yo male with hx of anxiety, panic, agoraphobia, depression; substance abuse in sustained remission, on methadone who presents for SI, though on plan, in face of ongoing, debilitating panic. Pt first sent to medical floor for bilateral PNA; now medically cleared and presenting to psych. Past Psychiatric History: Psychiatrist: Curtis WELLINGTON Therapist: Clifton WELLINGTON Denies history of SA. Reports history of punching self good states he has not done this in years. He reports his last psychiatric admission being in 2013. History of detox admissions and section [facility]. [facility] Medical History (Updated 08/23/24 @ 00:01 by Background Daemon) Opioid use disorder, severe, in early remission Suicidal ideation Exocrine pancreatic insufficiency Polysubstance abuse No known health problems Family History: Unknown Social History: Lives with mother. Single. 19-year-old child. Unemployed. Highest level of education completed 11th grade. Trauma History: Denies Diagnostics Vital Signs (24Hr): Vital Signs - 24 hr 08/22/24 15:05 08/22/24 20:00 08/23/24 08:25 Temperature 96.9 F 97.9 F Pulse Rate 57 88 Blood Pressure 160/98 H 125/77 138/86 Pulse Oximetry 95 95 Oxygen Delivery Method Room Air Room Air BMI result Body Mass Index 45.4 Labs 08/23/24 07:34 Labs: Laboratory Results - last 48 hr 08/23/24 07:34 Sodium 136 Potassium 4.5 Chloride 102 Carbon Dioxide 24 Anion Gap 15 BUN 17 H Creatinine 0.82 Estim Creat Clear Calc 160.9 Estimated GFR > 60 Random Glucose 93 Estimat Average Glucose 120 Hemoglobin A1c % 5.8 Calcium 8.8 Total Bilirubin 0.4 AST 35 ALT 34 Alkaline Phosphatase 89 Total Protein 7.5 Albumin 3.7 Triglycerides 124 Cholesterol 179 LDL Cholesterol, Calc 105 H HDL Cholesterol 50 TSH 1.32 Meds/Allergies Meds Home Medications ?Medication ?Instructions ?Recorded ?Confirmed ?Type aspirin 81 mg tablet,delayed 81 mg PO DAILY 09/02/23 08/22/24 History release mirtazapine 15 mg tablet 15 mg PO BEDTIME 09/02/23 08/22/24 History clonidine HCl 0.1 mg tablet 0.1 mg PO BID PRN anxiety 07/22/24 08/22/24 History ferrous sulfate 325 mg (65 mg 325 mg PO Q OTHER DAY 07/22/24 08/22/24 History iron) tablet,delayed release olanzapine 5 mg tablet 5 mg PO TID PRN agitation 07/22/24 08/22/24 History famotidine 20 mg tablet 20 mg PO BEDTIME 07/27/24 08/22/24 History albuterol sulfate 90 mcg/actuation 2 puff inhalation Q4-6H PRN 08/15/24 08/22/24 History aerosol inhaler (Ventolin HFA) Shortness Of Breath Or Wheezing clonazepam 0.5 mg tablet 0.5 mg PO BID PRN Anxiety 08/15/24 08/22/24 History fluticasone furoate 200 1 inh inhalation DAILY 08/15/24 08/22/24 History mcg-vilanterol 25 mcg/dose inhalation powder (Breo Ellipta) fluoxetine 20 mg capsule 60 mg PO DAILY 08/16/24 08/22/24 History wbpueh-lcrihpeq-kiucsfc 2 cap PO TIDWM 08/16/24 08/22/24 History 36,000-114,000-180,000 unit capsule,delay rel (Creon) Allergies Allergies Allergy/AdvReac Type Severity Reaction Status Date / Time Penicillins [PENICILLINS] Allergy Unknown RASH Verified 08/15/24 09:34 Assessment & Plan Assessment & Plan Plan HPI: 39 yo male with hx of anxiety, panic, agoraphobia, depression; substance abuse in sustained remission, on methadone who presents for SI, though on plan, in face of ongoing, debilitating panic. Pt first sent to medical floor for bilateral PNA; now medically cleared and presenting to psych. 39yo M with bipolar depression, asthma, and polysubstance abuse on methadone presenting with SI and hallucinations and found to be hypoxic from bilateral PNA while awaiting psychiatric bed placement. 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 Current medication regimen has done little to curb anxiety and panic remains debilitating and has resulted in agoraphobia. Pt agrees to switch med regimen to see if alternative meds can be more effective (see below). Plan: 3 day notice q15min checks Will DC Prozac since little benefit from Prozac 60 mg which he has been on for quite some time Will start venlafaxine at 112.5 (as Prozac 60 mg his rough equivalent to venlafaxine 112.5 to 150 mg); will likely titrate to 150 mg (chosen instead of Zoloft since patient has chronic GI issues including nausea/vomiting) Will start nortriptyline 25 mg q.h.s. to help with insomnia since this has less weight gain risk then mirtazapine Will make mirtazapine 15 mg q.h.s. a p.r.n. in case patient still can not sleep with nortriptyline Will schedule clonidine 0.1 mg b.i.d. to help with insomnia and anxiety Temporarily increased clonazepam 0.5 mg to t.i.d. p.r.n. (up from b.i.d. p.r.n.); patient remains it sustained sobriety for several years (he had a slip up for one day in February 2024) -continue depakote for now (pt thinks helps some) -Continue Seroquel for now (pt thinks helps some) Statement Statement: I have reviewed the history and physical and performed a pertinent examination on my patient. No changes have occurred unless specified. If the History and Physical was not performed prior to admission, the Hospitalist's service will be consulted for completing the admission physical. Time Spent With Patient Time: Total time managing care of this patient today ____ minutes.
[2024-08-23] MEDS: OLANZapine 5 MG TABLET PO (15:35)
[2024-08-23] MEDS: methADONE HCl 20 MG/2 ML ORAL.CONC 25 MG PO (16:28)
[2024-08-23 16:30] VITALS: BP 135/80
[2024-08-23 19:49] VITALS: BP 122/65; PULSE 84; RESP 16; TEMP 36.3; O2SAT 95
[2024-08-23] MEDS: Magnesium Oxide 400 MG TABLET PO (20:19)
[2024-08-23] MEDS: Sennosides/Docusate Sodium TABLET 2 TAB PO (20:19)
[2024-08-23] MEDS: Famotidine 20 MG TABLET PO (20:19)
[2024-08-23] MEDS: Nortriptyline HCl 25 MG CAPSULE PO (20:35)
[2024-08-24] MEDS: hydrOXYzine HCL 25 MG TABLET PO ×2 (03:56→08:34)
[2024-08-24] MEDS: OLANZapine 5 MG TABLET PO (03:56)
[2024-08-24 07:00] VITALS: BMI 45.6
[2024-08-24] MEDS: methADONE HCl 20 MG/2 ML ORAL.CONC 100 MG PO (07:45)
[2024-08-24 08:00] VITALS: BP 168/80; PULSE 89; RESP 16; TEMP 36.6; O2SAT 94
[2024-08-24] MEDS: Divalproex Sodium 250 MG TABLET.DR PO ×2 (08:33→20:15)
[2024-08-24] MEDS: Lipase/Prot/Amylase 12/38/60K CAPSULE.DR 2 CAP PO ×3 (08:33→17:15)
[2024-08-24] MEDS: QUEtiapine Fumarate 25 MG TABLET 75 MG PO ×2 (08:33→20:15)
[2024-08-24 08:34] VITALS: BP 168/80
[2024-08-24] MEDS: cloNIDine HCL 0.1 MG TABLET PO ×2 (08:34→20:18)
[2024-08-24] MEDS: Venlafaxine HCl ER 75 MG CAP.ER.24H PO (08:34)
[2024-08-24] MEDS: Multivitamin TABLET 1 TAB PO (08:34)
[2024-08-24] MEDS: cefuroxime axetiL 500 MG TABLET PO ×2 (08:34→20:14)
[2024-08-24] MEDS: Doxycycline Monohydrate 100 MG CAPSULE PO ×2 (08:34→20:14)
[2024-08-24] MEDS: clonazePAM 0.5 MG TABLET PO ×3 (08:34→20:21)
[2024-08-24] MEDS: Ferrous Sulfate 324 MG TABLET.DR PO (08:34)
[2024-08-24] MEDS: polyethylene glycoL 3350 17 GM POWD.PACK PO (08:37)
--- NOTE | 2024-08-24 11:22 | HO.PSYCHPN ---
Subjective Subjective Date of Service: 08/24/24 Reason For Visit: SI Interim History: Observed laying in bed napping. Patient reports feeling alright ; denied any issues at this time. Pt stated, I didn't sleep too well last night so I'm trying to nap . He reports improved mood since admission. denies SI/HI/VH/AH. Continue current tx plan. Medication Compliance: Yes Side effects from medications: No Mental Status Exam Mental Status Exam Patient Appearance: Appropriate Patient Orientation: Person, Place, Time and Situation Level of Consciousness: Awake Patient Behavior: Appropriate and Cooperative Mood Description: Calm Affect Description: Calm Ability to Follow Directions: Good Speech Pattern: Clear Memory Description: Intact Hallucinations: None Delusions: Not Present Thought Process: Intact Thought Content: positive for Intact Diagnostics Vital Signs (24Hr): Vital Signs - 24 hr 08/23/24 16:30 08/23/24 19:49 08/24/24 08:34 Temperature 97.4 F Pulse Rate 84 Respiratory Rate 16 Blood Pressure 135/80 122/65 168/80 H Pulse Oximetry 95 Oxygen Delivery Method Room Air BMI result Body Mass Index 45.4 Labs 08/23/24 07:34 Labs: Laboratory Results - last 48 hr 08/23/24 07:34 Sodium 136 Potassium 4.5 Chloride 102 Carbon Dioxide 24 Anion Gap 15 BUN 17 H Creatinine 0.82 Estim Creat Clear Calc 160.9 Estimated GFR > 60 Random Glucose 93 Estimat Average Glucose 120 Hemoglobin A1c % 5.8 Calcium 8.8 Total Bilirubin 0.4 AST 35 ALT 34 Alkaline Phosphatase 89 Total Protein 7.5 Albumin 3.7 Triglycerides 124 Cholesterol 179 LDL Cholesterol, Calc 105 H HDL Cholesterol 50 TSH 1.32 Medications Medications Current Medications Acetaminophen (Acetaminophen 325 Mg Tablet) 650 mg PO Q6H PRN PRN Reason: Headache/Pain, Scale 1-10 Al Hydroxide/Mg Hydroxide (Magnesium Hydrox/Alum Hydrox 30 Ml Oral.Susp) 30 ml PO Q6H PRN PRN Reason: Heartburn/Nausea Albuterol Sulfate (Albuterol Sulfate 90 Mcg 8 Gm Inhaler) 2 puff INHALE RQ4H PRN PRN Reason: Shortness of Breath Lipase/Protease/Amylase (Lipase/Prot/Amylase 12/38/60k Capsule.) 2 cap PO TIDWM [facility] Last Admin: 08/24/24 08:33 Dose: 2 cap Aspirin (Aspirin 81 Mg Tab.Chew) 81 mg PO DAILY [facility] Last Admin: 08/23/24 08:25 Dose: 81 mg Cefuroxime Axetil (Cefuroxime Axetil 500 Mg Tablet) 500 mg PO BID [facility] Stop: 08/28/24 09:01 Last Admin: 08/24/24 08:34 Dose: 500 mg Clonazepam (Clonazepam 0.5 Mg Tablet) 0.5 mg PO TID PRN PRN Reason: Anxiety Last Admin: 08/24/24 08:34 Dose: 0.5 mg Clonidine HCl (Clonidine Hcl 0.1 Mg Tablet) 0.1 mg PO BID PRN; Protocol PRN Reason: moderate anxiety Last Admin: 08/23/24 16:30 Dose: 0.1 mg Clonidine HCl (Clonidine Hcl 0.1 Mg Tablet) 0.1 mg PO BID [facility]; Protocol Last Admin: 08/24/24 08:34 Dose: 0.1 mg Divalproex Sodium (Divalproex Sodium 250 Mg Tablet.) 250 mg PO BID [facility] Last Admin: 08/24/24 08:33 Dose: 250 mg Doxycycline Monohydrate (Doxycycline Monohydrate 100 Mg Capsule) 100 mg PO BID [facility] Stop: 08/28/24 09:01 Last Admin: 08/24/24 08:34 Dose: 100 mg Famotidine (Famotidine 20 Mg Tablet) 20 mg PO BEDTIME [facility] Last Admin: 08/23/24 20:19 Dose: 20 mg Ferrous Sulfate (Ferrous Sulfate 324 Mg Tablet.) 324 mg PO DAILY [facility] Last Admin: 08/24/24 08:34 Dose: 324 mg Hydroxyzine HCl (Hydroxyzine Hcl 25 Mg Tablet) 25 mg PO Q6H PRN PRN Reason: mild anxiety Last Admin: 08/24/24 08:34 Dose: 25 mg Magnesium Hydroxide (Milk Of Magnesia 30 Ml Oral.Susp) 30 ml PO DAILY PRN PRN Reason: Constipation Magnesium Oxide (Magnesium Oxide 400 Mg Tablet) 400 mg PO BEDTIME [facility] Last Admin: 08/23/24 20:19 Dose: 400 mg Methadone HCl (Methadone Hcl 20 Mg/2 Ml Oral.Conc) 100 mg PO DAILY@0800 [facility] Last Admin: 08/24/24 07:45 Dose: 100 mg Methadone HCl (Methadone Hcl 20 Mg/2 Ml Oral.Conc) 25 mg PO DAILY@1700 [facility] Last Admin: 08/23/24 16:28 Dose: 25 mg Mirtazapine (Mirtazapine 15 Mg Tablet) 15 mg PO BEDTIME PRN PRN Reason: Insomnia Multivitamins/Vitamin C (Multivitamin Tablet) 1 tab PO DAILY [facility] Last Admin: 08/24/24 08:34 Dose: 1 tab Nicotine (Nicotine 21 Mg Patch.Td24) 21 mg TRANSDERMA DAILY PRN PRN Reason: smoking cessation Nicotine Polacrilex (Nicotine Polacrilex 2 Mg Gum) 4 mg BUCCAL Q2H PRN PRN Reason: Nicotine Cravings Nortriptyline HCl (Nortriptyline Hcl 25 Mg Capsule) 25 mg PO BEDTIME [facility] Last Admin: 08/23/24 20:35 Dose: 25 mg Olanzapine (Olanzapine 5 Mg Tablet) 5 mg PO TID PRN PRN Reason: agitation Last Admin: 08/24/24 03:56 Dose: 5 mg Omeprazole (Omeprazole 20 Mg Capsule.Dr) 20 mg PO DAILY@0630 [facility] Last Admin: 08/24/24 07:49 Dose: Not Given Polyethylene Glycol (Polyethylene Glycol 3350 17 Gm Powd.Pack) 17 gm PO DAILY [facility] Last Admin: 08/24/24 08:37 Dose: 17 gm Quetiapine Fumarate (Quetiapine Fumarate 25 Mg Tablet) 75 mg PO BID [facility] Last Admin: 08/24/24 08:33 Dose: 75 mg Senna/Docusate Sodium (Sennosides/Docusate Sodium Tablet) 2 tab PO BID [facility] Last Admin: 08/23/24 20:19 Dose: 2 tab Trazodone HCl (Trazodone Hcl 50 Mg Tablet) 50 mg PO BEDTIME MRX1 PRN PRN Reason: Insomnia Venlafaxine HCl (Venlafaxine Hcl Er 75 Mg Cap.Er.24h) 75 mg PO DAILY [facility] Last Admin: 08/24/24 08:34 Dose: 75 mg Allergies Allergies Allergy/AdvReac Type Severity Reaction Status Date / Time Penicillins [PENICILLINS] Allergy Unknown RASH Verified 08/15/24 09:34 Assessment & Plan Assessment & Plan (1) MDD (major depressive disorder), recurrent episode, moderate: Status: Acute Code(s): F33.1 - Major depressive disorder, recurrent, moderate Plan HPI: 39 yo male with hx of anxiety, panic, agoraphobia, depression; substance abuse in sustained remission, on methadone who presents for SI, though on plan, in face of ongoing, debilitating panic. Pt first sent to medical floor for bilateral PNA; now medically cleared and presenting to psych. 39yo M with bipolar depression, asthma, and polysubstance abuse on methadone presenting with SI and hallucinations and found to be hypoxic from bilateral PNA while awaiting psychiatric bed placement. 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 Current medication regimen has done little to curb anxiety and panic remains debilitating and has resulted in agoraphobia. Pt agrees to switch med regimen to see if alternative meds can be more effective (see below). Plan: 3 day notice q15min checks Will DC Prozac since little benefit from Prozac 60 mg which he has been on for quite some time Will start venlafaxine at 112.5 (as Prozac 60 mg his rough equivalent to venlafaxine 112.5 to 150 mg); will likely titrate to 150 mg (chosen instead of Zoloft since patient has chronic GI issues including nausea/vomiting) Will start nortriptyline 25 mg q.h.s. to help with insomnia since this has less weight gain risk then mirtazapine Will make mirtazapine 15 mg q.h.s. a p.r.n. in case patient still can not sleep with nortriptyline Will schedule clonidine 0.1 mg b.i.d. to help with insomnia and anxiety Temporarily increased clonazepam 0.5 mg to t.i.d. p.r.n. (up from b.i.d. p.r.n.); patient remains it sustained sobriety for several years (he had a slip up for one day in February 2024) -continue depakote for now (pt thinks helps some) -Continue Seroquel for now (pt thinks helps some) 08/24: Observed laying in bed napping. Patient reports feeling alright ; denied any issues at this time. Pt stated, I didn't sleep too well last night so I'm trying to nap . He reports improved mood since admission. denies SI/HI/VH/AH. Continue current tx plan. Patient educated on: diagnosis and medication risk/benefits Reason for continued inpatient stay Substantial Risk for: med/psych decompensation Time Spent With Patient Time: Total time managing care of this patient today _15___ minutes.
[2024-08-24] MEDS: methADONE HCl 20 MG/2 ML ORAL.CONC 25 MG PO (17:14)
[2024-08-24 19:47] VITALS: BP 141/73; PULSE 85; TEMP 36.6; O2SAT 93
[2024-08-24] MEDS: Nortriptyline HCl 25 MG CAPSULE PO (20:14)
[2024-08-24] MEDS: Sennosides/Docusate Sodium TABLET 2 TAB PO (20:14)
[2024-08-24] MEDS: Magnesium Oxide 400 MG TABLET PO (20:14)
[2024-08-24] MEDS: Famotidine 20 MG TABLET PO (20:16)
[2024-08-25] MEDS: Omeprazole 20 MG CAPSULE.DR PO (05:45)
[2024-08-25] MEDS: OLANZapine 5 MG TABLET PO (05:45)
[2024-08-25] MEDS: methADONE HCl 20 MG/2 ML ORAL.CONC 100 MG PO (07:49)
[2024-08-25 08:00] VITALS: BP 131/63; PULSE 90; RESP 16; TEMP 36.5; O2SAT 94
[2024-08-25] MEDS: QUEtiapine Fumarate 25 MG TABLET 75 MG PO ×2 (08:11→20:33)
[2024-08-25 08:12] VITALS: BP 131/63
[2024-08-25] MEDS: cloNIDine HCL 0.1 MG TABLET PO ×2 (08:12→20:32)
[2024-08-25] MEDS: polyethylene glycoL 3350 17 GM POWD.PACK PO (08:13)
[2024-08-25] MEDS: Lipase/Prot/Amylase 12/38/60K CAPSULE.DR 2 CAP PO ×3 (08:14→17:15)
[2024-08-25] MEDS: cefuroxime axetiL 500 MG TABLET PO ×2 (08:14→20:31)
[2024-08-25] MEDS: Sennosides/Docusate Sodium TABLET 2 TAB PO ×2 (08:15→20:31)
[2024-08-25] MEDS: Divalproex Sodium 250 MG TABLET.DR PO ×2 (08:15→20:30)
[2024-08-25] MEDS: Doxycycline Monohydrate 100 MG CAPSULE PO ×2 (08:15→20:31)
[2024-08-25] MEDS: Aspirin 81 MG TAB.CHEW PO (08:15)
[2024-08-25] MEDS: Venlafaxine HCl ER 75 MG CAP.ER.24H PO (08:16)
[2024-08-25] MEDS: Ferrous Sulfate 324 MG TABLET.DR PO (08:16)
[2024-08-25] MEDS: Multivitamin TABLET 1 TAB PO (08:16)
[2024-08-25] MEDS: clonazePAM 0.5 MG TABLET PO ×3 (08:16→20:30)
--- NOTE | 2024-08-25 09:50 | HO.PSYCHPN ---
Subjective Subjective Date of Service: 08/25/24 Reason For Visit: SI Interim History: met with patient; discussed with team increase Venlafaxine ER 150mg Start intuniv dc mirtazapine, sleeping well Diagnostics Vital Signs (24Hr): Vital Signs - 24 hr 08/24/24 19:47 08/25/24 08:00 08/25/24 08:12 Temperature 97.8 F 97.7 F Pulse Rate 85 90 Respiratory Rate 16 Blood Pressure 141/73 H 131/63 131/63 Pulse Oximetry 93 94 Oxygen Delivery Method Room Air Room Air BMI result Body Mass Index 45.6 Labs 08/23/24 07:34 Medications Medications Current Medications Acetaminophen (Acetaminophen 325 Mg Tablet) 650 mg PO Q6H PRN PRN Reason: Headache/Pain, Scale 1-10 Al Hydroxide/Mg Hydroxide (Magnesium Hydrox/Alum Hydrox 30 Ml Oral.Susp) 30 ml PO Q6H PRN PRN Reason: Heartburn/Nausea Albuterol Sulfate (Albuterol Sulfate 90 Mcg 8 Gm Inhaler) 2 puff INHALE RQ4H PRN PRN Reason: Shortness of Breath Lipase/Protease/Amylase (Lipase/Prot/Amylase 12/38/60k Capsule.) 2 cap PO TIDWM [facility], [facility] Last Admin: 08/25/24 08:14 Dose: 2 cap Aspirin (Aspirin 81 Mg Tab.Chew) 81 mg PO DAILY [facility] Last Admin: 08/25/24 08:15 Dose: 81 mg Cefuroxime Axetil (Cefuroxime Axetil 500 Mg Tablet) 500 mg PO BID SHEELA Stop: 08/28/24 09:01 Last Admin: 08/25/24 08:14 Dose: 500 mg Clonazepam (Clonazepam 0.5 Mg Tablet) 0.5 mg PO TID PRN PRN Reason: Anxiety Last Admin: 08/25/24 08:16 Dose: 0.5 mg Clonidine HCl (Clonidine Hcl 0.1 Mg Tablet) 0.1 mg PO BID PRN; Protocol PRN Reason: moderate anxiety Last Admin: 08/23/24 16:30 Dose: 0.1 mg Clonidine HCl (Clonidine Hcl 0.1 Mg Tablet) 0.1 mg PO BID SHEELA; Protocol Last Admin: 08/25/24 08:12 Dose: 0.1 mg Divalproex Sodium (Divalproex Sodium 250 Mg Tablet.) 250 mg PO BID [facility] Last Admin: 08/25/24 08:15 Dose: 250 mg Doxycycline Monohydrate (Doxycycline Monohydrate 100 Mg Capsule) 100 mg PO BID [facility] Stop: 08/28/24 09:01 Last Admin: 08/25/24 08:15 Dose: 100 mg Famotidine (Famotidine 20 Mg Tablet) 20 mg PO BEDTIME [facility] Last Admin: 08/24/24 20:16 Dose: 20 mg Ferrous Sulfate (Ferrous Sulfate 324 Mg Tablet.Dr) 324 mg PO DAILY [facility] Last Admin: 08/25/24 08:16 Dose: 324 mg Hydroxyzine HCl (Hydroxyzine Hcl 25 Mg Tablet) 25 mg PO Q6H PRN PRN Reason: mild anxiety Last Admin: 08/24/24 08:34 Dose: 25 mg Magnesium Hydroxide (Milk Of Magnesia 30 Ml Oral.Susp) 30 ml PO DAILY PRN PRN Reason: Constipation Magnesium Oxide (Magnesium Oxide 400 Mg Tablet) 400 mg PO BEDTIME [facility] Last Admin: 08/24/24 20:14 Dose: 400 mg Methadone HCl (Methadone Hcl 20 Mg/2 Ml Oral.Conc) 100 mg PO DAILY@0800 [facility] Last Admin: 08/25/24 07:49 Dose: 100 mg Methadone HCl (Methadone Hcl 20 Mg/2 Ml Oral.Conc) 25 mg PO DAILY@1700 [facility] Last Admin: 08/24/24 17:14 Dose: 25 mg Mirtazapine (Mirtazapine 15 Mg Tablet) 15 mg PO BEDTIME PRN PRN Reason: Insomnia Multivitamins/Vitamin C (Multivitamin Tablet) 1 tab PO DAILY [facility] Last Admin: 08/25/24 08:16 Dose: 1 tab Nicotine (Nicotine 21 Mg Patch.Td24) 21 mg TRANSDERMA DAILY PRN PRN Reason: smoking cessation Nicotine Polacrilex (Nicotine Polacrilex 2 Mg Gum) 4 mg BUCCAL Q2H PRN PRN Reason: Nicotine Cravings Nortriptyline HCl (Nortriptyline Hcl 25 Mg Capsule) 25 mg PO BEDTIME [facility] Last Admin: 08/24/24 20:14 Dose: 25 mg Olanzapine (Olanzapine 5 Mg Tablet) 5 mg PO TID PRN PRN Reason: agitation Last Admin: 08/25/24 05:45 Dose: 5 mg Omeprazole (Omeprazole 20 Mg Capsule.Dr) 20 mg PO DAILY@0630 [facility] Last Admin: 08/25/24 05:45 Dose: 20 mg Polyethylene Glycol (Polyethylene Glycol 3350 17 Gm Powd.Pack) 17 gm PO DAILY [facility] Last Admin: 08/25/24 08:13 Dose: 17 gm Quetiapine Fumarate (Quetiapine Fumarate 25 Mg Tablet) 75 mg PO BID [facility] Last Admin: 08/25/24 08:11 Dose: 75 mg Senna/Docusate Sodium (Sennosides/Docusate Sodium Tablet) 2 tab PO BID [facility] Last Admin: 08/25/24 08:15 Dose: 2 tab Trazodone HCl (Trazodone Hcl 50 Mg Tablet) 50 mg PO BEDTIME MRX1 PRN PRN Reason: Insomnia Venlafaxine HCl (Venlafaxine Hcl Er 75 Mg Cap.Er.24h) 75 mg PO DAILY [facility] Last Admin: 08/25/24 08:16 Dose: 75 mg Allergies Allergies Allergy/AdvReac Type Severity Reaction Status Date / Time Penicillins [PENICILLINS] Allergy Unknown RASH Verified 08/15/24 09:34 Assessment & Plan Assessment & Plan (1) MDD (major depressive disorder), recurrent episode, moderate: Status: Acute Code(s): F33.1 - Major depressive disorder, recurrent, moderate Plan HPI: 39 yo male with hx of anxiety, panic, agoraphobia, depression; substance abuse in sustained remission, on methadone who presents for SI, though on plan, in face of ongoing, debilitating panic. Pt first sent to medical floor for bilateral PNA; now medically cleared and presenting to psych. 39yo M with bipolar depression, asthma, and polysubstance abuse on methadone presenting with SI and hallucinations and found to be hypoxic from bilateral PNA while awaiting psychiatric bed placement. 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 Current medication regimen has done little to curb anxiety and panic remains debilitating and has resulted in agoraphobia. Pt agrees to switch med regimen to see if alternative meds can be more effective (see below). Plan: 3 day notice q15min checks Will DC Prozac since little benefit from Prozac 60 mg which he has been on for quite some time Will start venlafaxine at 112.5 (as Prozac 60 mg his rough equivalent to venlafaxine 112.5 to 150 mg); will likely titrate to 150 mg (chosen instead of Zoloft since patient has chronic GI issues including nausea/vomiting) Will start nortriptyline 25 mg q.h.s. to help with insomnia since this has less weight gain risk then mirtazapine Will make mirtazapine 15 mg q.h.s. a p.r.n. in case patient still can not sleep with nortriptyline Will schedule clonidine 0.1 mg b.i.d. to help with insomnia and anxiety Temporarily increased clonazepam 0.5 mg to t.i.d. p.r.n. (up from b.i.d. p.r.n.); patient remains it sustained sobriety for several years (he had a slip up for one day in February 2024) -continue depakote for now (pt thinks helps some) -Continue Seroquel for now (pt thinks helps some) 08/24: Observed laying in bed napping. Patient reports feeling alright ; denied any issues at this time. Pt stated, I didn't sleep too well last night so I'm trying to nap . He reports improved mood since admission. denies SI/HI/VH/AH. Continue current tx plan. Time Spent With Patient Time: Total time managing care of this patient today ____ minutes.
[2024-08-25] MEDS: Venlafaxine HCl ER 37.5 MG CAP.ER.24H PO (10:38)
[2024-08-25] MEDS: Milk of Magnesia 30 ML ORAL.SUSP PO (10:41)
[2024-08-25] MEDS: methADONE HCl 20 MG/2 ML ORAL.CONC 25 MG PO (17:15)
[2024-08-25 20:00] VITALS: BP 140/73; PULSE 83; TEMP 37.2; O2SAT 96
[2024-08-25] MEDS: Nortriptyline HCl 25 MG CAPSULE PO (20:31)
[2024-08-25 20:32] VITALS: BP 117/65
[2024-08-25] MEDS: Magnesium Oxide 400 MG TABLET PO (20:32)
[2024-08-25] MEDS: Famotidine 20 MG TABLET PO (20:33)
[2024-08-26] VITALS (8 sets, daily range): BP systolic 113–140; BP diastolic 68–90; PULSE 90–100; RESP 18–20; TEMP 36.3–36.6; O2SAT 91–95
[2024-08-26] MEDS: Albuterol Sulfate 90 MCG 8 GM INHALER 2 PUFF INHALE ×2 (04:50→19:00)
[2024-08-26] MEDS: OLANZapine 5 MG TABLET PO (04:50)
[2024-08-26] MEDS: cloNIDine HCL 0.1 MG TABLET PO ×3 (06:15→19:56)
[2024-08-26] MEDS: Omeprazole 20 MG CAPSULE.DR PO (06:16)
[2024-08-26] MEDS: clonazePAM 0.5 MG TABLET PO ×3 (07:34→20:04)
[2024-08-26] MEDS: methADONE HCl 20 MG/2 ML ORAL.CONC 100 MG PO (07:39)
[2024-08-26] MEDS: Milk of Magnesia 30 ML ORAL.SUSP PO (08:09)
[2024-08-26] MEDS: polyethylene glycoL 3350 17 GM POWD.PACK PO (08:10)
[2024-08-26] MEDS: Lipase/Prot/Amylase 12/38/60K CAPSULE.DR 2 CAP PO ×3 (08:11→17:17)
[2024-08-26] MEDS: Doxycycline Monohydrate 100 MG CAPSULE PO ×2 (08:12→19:55)
[2024-08-26] MEDS: guanFACINE HCl ER 1 MG TAB.ER.24H PO (08:12)
[2024-08-26] MEDS: Divalproex Sodium 250 MG TABLET.DR PO ×2 (08:12→19:56)
[2024-08-26] MEDS: Venlafaxine HCl ER 150 MG CAP.ER.24H PO (08:12)
[2024-08-26] MEDS: Ferrous Sulfate 324 MG TABLET.DR PO (08:12)
[2024-08-26] MEDS: cefuroxime axetiL 500 MG TABLET PO ×2 (08:13→19:55)
[2024-08-26] MEDS: Aspirin 81 MG TAB.CHEW PO (08:13)
[2024-08-26] MEDS: Sennosides/Docusate Sodium TABLET 2 TAB PO ×2 (08:13→19:55)
[2024-08-26] MEDS: Multivitamin TABLET 1 TAB PO (08:14)
[2024-08-26] MEDS: QUEtiapine Fumarate 25 MG TABLET 75 MG PO ×2 (08:14→19:56)
--- NOTE | 2024-08-26 09:32 | HO.PSYCHPN ---
Subjective Subjective Date of Service: 08/26/24 Reason For Visit: SI Interim History: met with patient; discussed with team Reports he is coughing. Some SOB. Says he usually sleeps more upright at home. He had a CPAP machine but returned it as he wasn't consistent. Tolerating medications. Denies SI/HI/AVH. Mental Status Exam Mental Status Exam Patient Appearance: Appropriate Patient Orientation: Person, Place, Time and Situation Level of Consciousness: Awake Patient Behavior: Appropriate and Cooperative Mood Description: Calm Affect Description: Calm Ability to Follow Directions: Good Speech Pattern: Clear Memory Description: Intact Diagnostics Vital Signs (24Hr): Vital Signs - 24 hr 08/25/24 20:00 08/25/24 20:32 08/26/24 06:15 Temperature 98.9 F Pulse Rate 83 Respiratory Rate Blood Pressure 140/73 H 117/65 136/84 Pulse Oximetry 96 Oxygen Delivery Method Room Air 08/26/24 07:58 Temperature 97.3 F Pulse Rate 90 Respiratory Rate 18 Blood Pressure 140/90 H Pulse Oximetry 95 Oxygen Delivery Method Room Air BMI result Body Mass Index 45.6 Labs 08/23/24 07:34 Medications Medications Current Medications Acetaminophen (Acetaminophen 325 Mg Tablet) 650 mg PO Q6H PRN PRN Reason: Headache/Pain, Scale 1-10 Al Hydroxide/Mg Hydroxide (Magnesium Hydrox/Alum Hydrox 30 Ml Oral.Susp) 30 ml PO Q6H PRN PRN Reason: Heartburn/Nausea Albuterol Sulfate (Albuterol Sulfate 90 Mcg 8 Gm Inhaler) 2 puff INHALE RQ4H PRN PRN Reason: Shortness of Breath Last Admin: 08/26/24 04:50 Dose: 2 puff Lipase/Protease/Amylase (Lipase/Prot/Amylase 12/38/60k Capsule.) 2 cap PO TIDWM [facility] Last Admin: 08/26/24 08:11 Dose: 2 cap Aspirin (Aspirin 81 Mg Tab.Chew) 81 mg PO DAILY [facility] Last Admin: 08/26/24 08:13 Dose: 81 mg Cefuroxime Axetil (Cefuroxime Axetil 500 Mg Tablet) 500 mg PO BID [facility] Stop: 08/28/24 09:01 Last Admin: 08/26/24 08:13 Dose: 500 mg Clonazepam (Clonazepam 0.5 Mg Tablet) 0.5 mg PO TID PRN PRN Reason: Anxiety Last Admin: 08/26/24 07:34 Dose: 0.5 mg Clonidine HCl (Clonidine Hcl 0.1 Mg Tablet) 0.1 mg PO BID PRN; Protocol PRN Reason: moderate anxiety Last Admin: 08/26/24 06:15 Dose: 0.1 mg Clonidine HCl (Clonidine Hcl 0.1 Mg Tablet) 0.1 mg PO BID [facility]; Protocol Last Admin: 08/26/24 08:14 Dose: 0.1 mg Divalproex Sodium (Divalproex Sodium 250 Mg Tablet.Dr) 250 mg PO BID [facility] Last Admin: 08/26/24 08:12 Dose: 250 mg Doxycycline Monohydrate (Doxycycline Monohydrate 100 Mg Capsule) 100 mg PO BID [facility] Stop: 08/28/24 09:01 Last Admin: 08/26/24 08:12 Dose: 100 mg Famotidine (Famotidine 20 Mg Tablet) 20 mg PO BEDTIME [facility] Last Admin: 08/25/24 20:33 Dose: 20 mg Ferrous Sulfate (Ferrous Sulfate 324 Mg Tablet.Dr) 324 mg PO DAILY [facility] Last Admin: 08/26/24 08:12 Dose: 324 mg Guanfacine HCl (Guanfacine Hcl Er 1 Mg Tab.Er.24h) 1 mg PO DAILY [facility] Last Admin: 08/26/24 08:12 Dose: 1 mg Hydroxyzine HCl (Hydroxyzine Hcl 25 Mg Tablet) 25 mg PO Q6H PRN PRN Reason: mild anxiety Last Admin: 08/24/24 08:34 Dose: 25 mg Magnesium Hydroxide (Milk Of Magnesia 30 Ml Oral.Susp) 30 ml PO DAILY PRN PRN Reason: Constipation Last Admin: 08/26/24 08:09 Dose: 30 ml Magnesium Oxide (Magnesium Oxide 400 Mg Tablet) 400 mg PO BEDTIME [facility] Last Admin: 08/25/24 20:32 Dose: 400 mg Methadone HCl (Methadone Hcl 20 Mg/2 Ml Oral.Conc) 100 mg PO DAILY@0800 [facility] Last Admin: 08/26/24 07:39 Dose: 100 mg Methadone HCl (Methadone Hcl 20 Mg/2 Ml Oral.Conc) 25 mg PO DAILY@1700 [facility] Last Admin: 08/25/24 17:15 Dose: 25 mg Multivitamins/Vitamin C (Multivitamin Tablet) 1 tab PO DAILY [facility] Last Admin: 08/26/24 08:14 Dose: 1 tab Nicotine (Nicotine 21 Mg Patch.Td24) 21 mg TRANSDERMA DAILY PRN PRN Reason: smoking cessation Nicotine Polacrilex (Nicotine Polacrilex 2 Mg Gum) 4 mg BUCCAL Q2H PRN PRN Reason: Nicotine Cravings Nortriptyline HCl (Nortriptyline Hcl 25 Mg Capsule) 25 mg PO BEDTIME [facility] Last Admin: 08/25/24 20:31 Dose: 25 mg Olanzapine (Olanzapine 5 Mg Tablet) 5 mg PO TID PRN PRN Reason: agitation Last Admin: 08/26/24 04:50 Dose: 5 mg Omeprazole (Omeprazole 20 Mg Capsule.Dr) 20 mg PO DAILY@0630 [facility] Last Admin: 08/26/24 06:16 Dose: 20 mg Polyethylene Glycol (Polyethylene Glycol 3350 17 Gm Powd.Pack) 17 gm PO DAILY [facility] Last Admin: 08/26/24 08:10 Dose: 17 gm Quetiapine Fumarate (Quetiapine Fumarate 25 Mg Tablet) 75 mg PO BID [facility] Last Admin: 08/26/24 08:14 Dose: 75 mg Senna/Docusate Sodium (Sennosides/Docusate Sodium Tablet) 2 tab PO BID [facility] Last Admin: 08/26/24 08:13 Dose: 2 tab Trazodone HCl (Trazodone Hcl 50 Mg Tablet) 50 mg PO BEDTIME MRX1 PRN PRN Reason: Insomnia Venlafaxine HCl (Venlafaxine Hcl Er 150 Mg Cap.Er.24h) 150 mg PO DAILY [facility] Last Admin: 08/26/24 08:12 Dose: 150 mg Allergies Allergies Allergy/AdvReac Type Severity Reaction Status Date / Time Penicillins [PENICILLINS] Allergy Unknown RASH Verified 08/15/24 09:34 Assessment & Plan Assessment & Plan (1) MDD (major depressive disorder), recurrent episode, moderate: Status: Acute Code(s): F33.1 - Major depressive disorder, recurrent, moderate Plan HPI: 39 yo male with hx of anxiety, panic, agoraphobia, depression; substance abuse in sustained remission, on methadone who presents for SI, though on plan, in face of ongoing, debilitating panic. Pt first sent to medical floor for bilateral PNA; now medically cleared and presenting to psych. 39yo M with bipolar depression, asthma, and polysubstance abuse on methadone presenting with SI and hallucinations and found to be hypoxic from bilateral PNA while awaiting psychiatric bed placement. 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 Current medication regimen has done little to curb anxiety and panic remains debilitating and has resulted in agoraphobia. Pt agrees to switch med regimen to see if alternative meds can be more effective (see below). Plan: 3 day notice q15min checks Will DC Prozac since little benefit from Prozac 60 mg which he has been on for quite some time Will start venlafaxine at 112.5 (as Prozac 60 mg his rough equivalent to venlafaxine 112.5 to 150 mg); will likely titrate to 150 mg (chosen instead of Zoloft since patient has chronic GI issues including nausea/vomiting) Will start nortriptyline 25 mg q.h.s. to help with insomnia since this has less weight gain risk then mirtazapine Will make mirtazapine 15 mg q.h.s. a p.r.n. in case patient still can not sleep with nortriptyline Will schedule clonidine 0.1 mg b.i.d. to help with insomnia and anxiety Temporarily increased clonazepam 0.5 mg to t.i.d. p.r.n. (up from b.i.d. p.r.n.); patient remains it sustained sobriety for several years (he had a slip up for one day in February 2024) -continue depakote for now (pt thinks helps some) -Continue Seroquel for now (pt thinks helps some) 08/24: Observed laying in bed napping. Patient reports feeling alright ; denied any issues at this time. Pt stated, I didn't sleep too well last night so I'm trying to nap . He reports improved mood since admission. denies SI/HI/VH/AH. Continue current tx plan. 08/26: continue current management and treatment plan. Reason for continued inpatient stay Substantial Risk for: inability to function, rapid decompensation and med/psych decompensation Time Spent With Patient Time: Total time managing care of this patient today ____ minutes.
[2024-08-26] MEDS: Lactulose 20 GM/30 ML SOLUTION PO (10:02)
[2024-08-26] MEDS: methADONE HCl 20 MG/2 ML ORAL.CONC 25 MG PO (16:33)
[2024-08-26] MEDS: Acetaminophen 325 MG TABLET 650 MG PO (19:11)
[2024-08-26] MEDS: Nortriptyline HCl 25 MG CAPSULE PO (19:55)
[2024-08-26] MEDS: Famotidine 20 MG TABLET PO (19:55)
[2024-08-26] MEDS: Magnesium Oxide 400 MG TABLET PO (19:56)
[2024-08-26] MEDS: Hydrocortisone 2.5 % Rectal Cr 30 GM TUBE 1 APPL PR (21:31)
--- NOTE | 2024-08-27 | ECG_ITS ---
Test Reason : Lightheadedness Blood Pressure : */* mmHG Vent. Rate : 105 BPM Atrial Rate : 105 BPM P-R Int : 154 ms QRS Dur : 94 ms QT Int : 352 ms P-R-T Axes : 41 22 60 degrees QTcB Int : 465 ms Sinus tachycardia Otherwise normal ECG When compared with ECG of 15-Aug-2024 04:09, No significant change was found Referred By: Lynn Irving Electronically Signed By: Jamil Cortez
[2024-08-27] MEDS: Albuterol Sulfate 90 MCG 8 GM INHALER 2 PUFF INHALE ×2 (00:44→06:26)
[2024-08-27] MEDS: OLANZapine 5 MG TABLET PO (00:44)
[2024-08-27] MEDS: clonazePAM 0.5 MG TABLET PO (06:26)
[2024-08-27] MEDS: Omeprazole 20 MG CAPSULE.DR PO (06:26)
[2024-08-27 06:31] VITALS: BP 130/99; PULSE 124; RESP 18; TEMP 37.1; O2SAT 92
--- NOTE | 2024-08-27 06:32 | PC.NURSE ---
Patient woke early and complained of SOB. O2 at 92% on room air at this time. PRN anxiety medication and inhaler administered per patient request.
[2024-08-27] MEDS: Doxycycline Monohydrate 100 MG CAPSULE PO (07:15)
[2024-08-27] MEDS: methADONE HCl 20 MG/2 ML ORAL.CONC 100 MG PO (07:40)
[2024-08-27 08:00] VITALS: BP 143/81; PULSE 120; RESP 22; TEMP 36.8; O2SAT 94
[2024-08-27] MEDS: Lipase/Prot/Amylase 12/38/60K CAPSULE.DR 2 CAP PO (08:09)
[2024-08-27] MEDS: Divalproex Sodium 250 MG TABLET.DR PO (08:13)
[2024-08-27] MEDS: cefuroxime axetiL 500 MG TABLET PO (08:13)
--- NOTE | 2024-08-27 08:41 | PC.NURSE ---
Patient complained of weakness and fatigue that is getting worse, overnight had rectal bleeding (provider aware), pt spo2 was 90-92% ORA with a HR 110-124, patient color was pale. Provider notified discussed with patient symptoms, decision to call [facility] was made, pt was evaluated by hospitalist and [facility] and was subsequently transferred to [facility], provider aware.
--- NOTE | 2024-08-27 08:43 | P.DS_ITS ---
DS: Providers Provider Date of Service: 08/27/24 Date of admission: 08/22/24 15:04 Date of discharge: 08/27/24 Primary care physician: Unknown Physician Attending physician on admission: Vaughn Carballo Attending physician on discharge: Nilesh Garnett DS: Diagnosis Discharge Diagnosis (1) MDD (major depressive disorder), recurrent episode, moderate: Status: Acute DS: Medications Discharge Medications Home Medications: Home Medications ?Medication ?Instructions ?Recorded ?Confirmed aspirin 81 mg tablet,delayed 81 mg PO DAILY 09/02/23 08/22/24 release mirtazapine 15 mg tablet 15 mg PO BEDTIME 09/02/23 08/22/24 clonidine HCl 0.1 mg tablet 0.1 mg PO BID PRN anxiety 07/22/24 08/22/24 ferrous sulfate 325 mg (65 mg 325 mg PO Q OTHER DAY 07/22/24 08/22/24 iron) tablet,delayed release olanzapine 5 mg tablet 5 mg PO TID PRN agitation 07/22/24 08/22/24 famotidine 20 mg tablet 20 mg PO BEDTIME 07/27/24 08/22/24 albuterol sulfate 90 mcg/actuation 2 puff inhalation Q4-6H PRN 08/15/24 08/22/24 aerosol inhaler (Ventolin HFA) Shortness Of Breath Or Wheezing clonazepam 0.5 mg tablet 0.5 mg PO BID PRN Anxiety 08/15/24 08/22/24 fluticasone furoate 200 1 inh inhalation DAILY 08/15/24 08/22/24 mcg-vilanterol 25 mcg/dose inhalation powder (Breo Ellipta) fluoxetine 20 mg capsule 60 mg PO DAILY 08/16/24 08/22/24 npgfrl-hldnozgl-gpywdlh 2 cap PO TIDWM 08/16/24 08/22/24 36,000-114,000-180,000 unit capsule,delay rel (Creon) Previous Rx's ?Medication ?Instructions ?Recorded esomeprazole magnesium 40 mg 40 mg PO DAILY #30 caps 01/14/24 capsule,delayed release (Nexium) divalproex 250 mg tablet,delayed 250 mg PO BID #14 tabs 07/31/24 release multivitamin (Daily-Rip tablet) 1 tab PO DAILY #30 tabs 07/31/24 quetiapine 25 mg tablet 75 mg (3 x 25 mg) PO BID #42 tabs 07/31/24 magnesium oxide 400 mg PO BEDTIME #30 caps 08/08/24 cefuroxime axetil 500 mg tablet 500 mg PO BID #10 tabs 08/19/24 doxycycline monohydrate 100 mg 100 mg PO Q12H #10 caps 08/19/24 capsule hydroxyzine HCl 25 mg tablet 25 mg PO Q6H PRN mild anxiety #1 08/19/24 tab methadone 10 mg/mL oral 25 mg (2.5 mL) PO DAILY@1700 #1 mL 08/19/24 concentrate (Methadose) methadone 10 mg/mL oral 100 mg (10 mL) PO DAILY@0800 #1 mL 08/19/24 concentrate (Methadose) polyethylene glycol 3350 17 gram 17 g PO DAILY #1 ea 08/19/24 oral powder packet sennosides 8.6 mg-docusate sodium 2 tab PO BID #1 tab 08/19/24 50 mg tablet (Senna Plus) acetaminophen 325 mg tablet 650 mg (2 x 325 mg) PO Q6H PRN 08/27/24 Headache/Pain, Scale 1-10 #0 tabs albuterol sulfate 90 mcg/actuation 2 puff inhalation RQ4H PRN 08/27/24 aerosol inhaler (Ventolin HFA) Shortness Of Breath #0 grams aluminum-magnesium hydroxide 200 30 ml PO Q6H PRN Heartburn/Nausea 08/27/24 mg-200 mg/5 mL oral suspension #0 mL (MAG-AL) aspirin 81 mg chewable tablet 81 mg PO DAILY #0 tabs 08/27/24 cefuroxime axetil 500 mg tablet 500 mg PO BID #0 tabs 08/27/24 clonazepam 0.5 mg tablet 0.5 mg PO TID PRN Anxiety #0 tabs 08/27/24 clonidine HCl 0.1 mg tablet 0.1 mg PO BID #0 tabs 08/27/24 clonidine HCl 0.1 mg tablet 0.1 mg PO BID PRN moderate anxiety 08/27/24 #0 tabs divalproex 250 mg tablet,delayed 250 mg PO BID #0 tabs 08/27/24 release doxycycline monohydrate 100 mg 100 mg PO BID@0700,1900 #0 caps 08/27/24 capsule famotidine 20 mg tablet 20 mg PO BEDTIME #0 tabs 08/27/24 ferrous sulfate 324 mg (65 mg 324 mg PO DAILY #0 tabs 08/27/24 iron) tablet,delayed release guanfacine 1 mg tablet,extended 1 mg PO DAILY #0 tabs 08/27/24 release 24 hr hydrocortisone 2.5 % topical cream 1 appl [place] DAILY #0 grams 08/27/24 with perineal applicator (Proctozone-HC) hydroxyzine HCl 25 mg tablet 25 mg PO Q6H PRN mild anxiety #0 08/27/24 tabs lactulose 10 gram/15 mL oral 20 g (30 mL) PO DAILY PRN 08/27/24 solution Constipation #0 mL etkhve-dutaxnqi-yurxuap 2 cap PO TIDWM #0 caps 08/27/24 12,000-38,000-60,000 unit capsule,delayed rel (Creon) magnesium hydroxide 400 mg/5 mL 30 ml PO DAILY PRN Constipation #0 08/27/24 oral suspension (Milk of Magnesia) mL magnesium oxide 400 mg (241.3 mg 400 mg PO BEDTIME #0 tabs 08/27/24 magnesium) tablet methadone 10 mg/mL oral 25 mg (2.5 mL) PO DAILY@1700 #0 mL 08/27/24 concentrate (Methadose) methadone 10 mg/mL oral 100 mg (10 mL) PO DAILY@0800 #0 mL 08/27/24 concentrate (Methadose) multivitamin (Daily-Rip tablet) 1 tab PO DAILY #0 tabs 08/27/24 nicotine (polacrilex) 2 mg gum 4 mg buccal Q2H PRN Nicotine 08/27/24 Cravings #0 ea nicotine 21 mg/24 hr daily 21 mg transdermal DAILY PRN 08/27/24 transdermal patch smoking cessation #0 ea nortriptyline 25 mg capsule 25 mg PO BEDTIME #0 caps 08/27/24 olanzapine 5 mg tablet 5 mg PO TID PRN agitation #0 tabs 08/27/24 omeprazole 20 mg capsule,delayed 20 mg PO DAILY@0630 #0 caps 08/27/24 release polyethylene glycol 3350 17 gram 17 g PO DAILY #0 ea 08/27/24 oral powder packet quetiapine 25 mg tablet 75 mg (3 x 25 mg) PO BID #0 tabs 08/27/24 sennosides 8.6 mg-docusate sodium 2 tab PO BID #0 tabs 08/27/24 50 mg tablet (Senna Plus) trazodone 50 mg tablet 50 mg PO BEDTIME MRX1 PRN Insomnia 08/27/24 #0 tabs venlafaxine 150 mg 150 mg PO DAILY #0 caps 08/27/24 capsule,extended release 24 hr Mental Status Exam Mental Status Exam Patient Appearance: Appropriate Patient Orientation: Person, Place, Time and Situation Level of Consciousness: Awake Patient Behavior: Appropriate Mood Description: Anxious Affect Description: Anxious Ability to Follow Directions: Good Speech Pattern: Clear Memory Description: Intact Hallucinations: None Delusions: Not Present Thought Process: Intact Thought Content: positive for Intact Data Data Completed and Pending Completed studies during hospitalization [Text1]: 08/23/24 07:34 Sodium 136 Potassium 4.5 Chloride 102 Carbon Dioxide 24 Anion Gap 15 BUN 17 H Creatinine 0.82 Estim Creat Clear Calc 160.9 Estimated GFR > 60 Random Glucose 93 Estimat Average Glucose 120 Hemoglobin A1c % 5.8 Calcium 8.8 Total Bilirubin 0.4 AST 35 ALT 34 Alkaline Phosphatase 89 Total Protein 7.5 Albumin 3.7 Triglycerides 124 Cholesterol 179 LDL Cholesterol, Calc 105 H HDL Cholesterol 50 TSH 1.32 DS: Summary Hospital Course Hospital Course: HPI: 39 yo male with hx of anxiety, panic, agoraphobia, depression; substance abuse in sustained remission, on methadone who presents for SI, though on plan, in face of ongoing, debilitating panic. Pt first sent to medical floor for bilateral PNA; now medically cleared and presenting to psych. 39yo M with bipolar depression, asthma, and polysubstance abuse on methadone presenting with SI and hallucinations and found to be hypoxic from bilateral PNA while awaiting psychiatric bed placement. 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 Current medication regimen has done little to curb anxiety and panic remains debilitating and has resulted in agoraphobia. Pt agrees to switch med regimen to see if alternative meds can be more effective (see below). Plan: 3 day notice q15min checks Will DC Prozac since little benefit from Prozac 60 mg which he has been on for quite some time Will start venlafaxine at 112.5 (as Prozac 60 mg his rough equivalent to venlafaxine 112.5 to 150 mg); will likely titrate to 150 mg (chosen instead of Zoloft since patient has chronic GI issues including nausea/vomiting) Will start nortriptyline 25 mg q.h.s. to help with insomnia since this has less weight gain risk then mirtazapine Will make mirtazapine 15 mg q.h.s. a p.r.n. in case patient still can not sleep with nortriptyline Will schedule clonidine 0.1 mg b.i.d. to help with insomnia and anxiety Temporarily increased clonazepam 0.5 mg to t.i.d. p.r.n. (up from b.i.d. p.r.n.); patient remains it sustained sobriety for several years (he had a slip up for one day in February 2024) -continue depakote for now (pt thinks helps some) -Continue Seroquel for now (pt thinks helps some) 08/24: Observed laying in bed napping. Patient reports feeling alright ; denied any issues at this time. Pt stated, I didn't sleep too well last night so I'm trying to nap . He reports improved mood since admission. denies SI/HI/VH/AH. Continue current tx plan. 08/26:met with patient; discussed with team Reports he is coughing. Some SOB. Says he usually sleeps more upright at home. He had a CPAP machine but returned it as he wasn't consistent. Tolerating medications. Denies SI/HI/AVH. 08/27: Per nursing, rapid response called d/t pt complaining of lightheadedness, weakness. He complained of blood in his stool last night when wiping. This morning he was tachycardic and looking unwell and ashen. Transferred to medicine per Dr. Ced fan. Status at Discharge Cognitive/behavioral status at discharge: calm and cooperative. alert and oriented x3. denies SI/HI/VH/AH. Functional status at discharge: independent ambulation Overall status at discharge: patient is progressing back to baseline Time Spent with Patient Time attestation: Total time managing care of this patient today _20___ minutes. Time spent: Less than 30 minutes Discharge Plan Discharge Anticipated Discharge Date/Time: 08/27/24 08:30 Patient Disposition: Xfer Other Discharge Diagnosis: MDD Referrals: [facility]- Therapy w/ Clifton Motta [Other] - 09/20/24 2:20 pm [facility]- Medication Management w/ Curtis Chavez [Other] - 1 Week (Please call the provided number if you have not heard back within one week ) [facility]- Medicated Assisted Treatment [Other] - 1 Day (OTP Dosing Hours Wednesday - Wednesday: 5:45am - 12pm Wednesday & Wednesday: 7am -10am Walk-In Hours Wednesday, Wednesday & Wednesday: 6am - 8am) Physician,Unknown J [Primary Care Provider] - 1 Week Discharge Medications: New multivitamin [Daily-Rip] Tablet 1 tab PO DAILY Qty: 0 0RF quetiapine 25 mg Tablet 75 mg PO BID Qty: 0 0RF clonidine HCl 0.1 mg Tablet 0.1 mg PO BID Qty: 0 0RF Protocol: Hold for SBP< HOLD for SBP < : 90 clonidine HCl 0.1 mg Tablet 0.1 mg PO BID PRN (Reason: moderate anxiety) Qty: 0 0RF Protocol: Hold for SBP< HOLD for SBP < : 90 acetaminophen 325 mg Tablet 650 mg PO Q6H PRN (Reason: Headache/Pain, Scale 1-10) Qty: 0 0RF divalproex 250 mg Tablet,Delayed Release (Dr/Ec) 250 mg PO BID Qty: 0 0RF trazodone 50 mg Tablet 50 mg PO BEDTIME MRX1 PRN (Reason: Insomnia) Qty: 0 0RF polyethylene glycol 3350 17 gram Powder In Packet 17 g PO DAILY Qty: 0 0RF nicotine (polacrilex) 2 mg Gum 4 mg buccal Q2H PRN (Reason: Nicotine Cravings) Qty: 0 0RF clonazepam 0.5 mg Tablet 0.5 mg PO TID PRN (Reason: Anxiety) Qty: 0 0RF sennosides-docusate sodium [Senna Plus] 8.6-50 mg Tablet 2 tab PO BID Qty: 0 0RF olanzapine 5 mg Tablet 5 mg PO TID PRN (Reason: agitation) Qty: 0 0RF venlafaxine 150 mg Capsule,Extended Release 24hr 150 mg PO DAILY Qty: 0 0RF nortriptyline 25 mg Capsule 25 mg PO BEDTIME Qty: 0 0RF hydrocortisone [Proctozone-HC] 2.5 % Cream With Perineal Applicator 1 appl [place] DAILY Qty: 0 0RF famotidine 20 mg Tablet 20 mg PO BEDTIME Qty: 0 0RF magnesium oxide 400 mg (241.3 mg magnesium) Tablet 400 mg PO BEDTIME Qty: 0 0RF magnesium hydroxide [Milk of Magnesia] 400 mg/5 mL Suspension 30 ml PO DAILY PRN (Reason: Constipation) Qty: 0 0RF doxycycline monohydrate 100 mg Capsule 100 mg PO BID@0700,1900 Qty: 0 0RF nicotine 21 mg/24 hr Patch 24 Hour 21 mg transdermal DAILY PRN (Reason: smoking cessation) Qty: 0 0RF hydroxyzine HCl 25 mg Tablet 25 mg PO Q6H PRN (Reason: mild anxiety) Qty: 0 0RF methadone [Methadose] 10 mg/mL Concentrate 25 mg PO DAILY@1700 Qty: 0 0RF Rx Instructions: Partial Fill upon patient request. methadone [Methadose] 10 mg/mL Concentrate 100 mg PO DAILY@0800 Qty: 0 0RF Rx Instructions: Partial Fill upon patient request. cefuroxime axetil 500 mg Tablet 500 mg PO BID Qty: 0 0RF albuterol sulfate [Ventolin HFA] 90 mcg/actuation Hfa Aerosol Inhaler 2 puff inhalation RQ4H PRN (Reason: Shortness Of Breath) Qty: 0 0RF MAG-AL 200-200 mg/5 mL Suspension 30 ml PO Q6H PRN (Reason: Heartburn/Nausea) Qty: 0 0RF lactulose 10 gram/15 mL Solution 20 g PO DAILY PRN (Reason: Constipation) Qty: 0 0RF ferrous sulfate 324 mg (65 mg iron) Tablet,Delayed Release (Dr/Ec) 324 mg PO DAILY Qty: 0 0RF Creon 12,000-38,000 -60,000 unit Capsule,Delayed Release(Dr/Ec) 2 cap PO TIDWM Qty: 0 0RF guanfacine 1 mg Tablet Extended Release 24 Hr 1 mg PO DAILY Qty: 0 0RF Continued fluticasone furoate-vilanterol [Breo Ellipta] 200-25 mcg/dose Blister With Device 1 inh INHALATION DAILY fluoxetine 20 mg capsule 60 mg PO DAILY aspirin 81 mg tablet,delayed release (DR/EC) 81 mg PO DAILY mirtazapine 15 mg tablet 15 mg PO BEDTIME esomeprazole magnesium [Nexium] 40 mg capsule,delayed release(DR/EC) 40 mg PO DAILY Qty: 30 5RF Discharge Orders: Discharge Order (Routine); Ordered 08/27/24 Ordered By: Nilesh Garnett Diet: Regular diet Activity on Discharge: As tolerated Stand Alone Forms: Patient Portal Discharge page Print Language: Tanzanian Care Plan Goals: transfer to medicine Health Concerns: transfer to medicine Plan of Treatment: take medications as prescribed. Assessment: calm and cooperative. alert and oriented x3. denies SI/HI/VH/AH. Discharge Date/Time: 08/27/24 08:49
[2024-08-27 09:09] LABS: Glucose, Whole Blood 153 mg/dL (60-115)
--- NOTE | 2024-08-27 10:45 | PC.NURSE ---
Patient belongings delivered to Med[facility] by [facility]
--- NOTE | 2024-08-28 09:32 | PM.PSYCN ---
History of Present Illness Date of Service: 08/28/24 Chief Complaint: SI Reason for Consult: Transfer from inpatient psychiatry Requesting physician: Lynn Irving Discussed with referring provider: Yes Sources of Information: patient interviewed and chart reviewed HPI Narrative: 39 yo male who has a diagnosis of MDD and opioid dependence. He was admitted medically on 08/16 for pneumonia, transferred to on 08/22 for treatment after medically stabilizing. On 08/27/24, while on M-5, patient noted to be hypoxic and was feeling weak, dizzy and tachycardic and was transferred back to medicine. Psychiatry asked to see patient for further recommendations. Patient had a chest CT which showed a multifocal pneumonia. Patient is seen in his room. He reports he is still feeling ill and is on O2 and antibiotics for treatment of pneumonia. He remains depressed. Denies SI. He is future oriented and wants to resume treatment on M-5 after he stabilizes. Past Psychiatric History: Psychiatrist: Curtis WELLINGTON Therapist: Clifton WELLINGTON Denies history of SA. Reports history of punching self good states he has not done this in years. He reports his last psychiatric admission being in 2013. History of detox admissions and section [facility]. Medical Evaluation Reviewed: Yes [facility] Medical History (Updated 08/27/24 @ 18:06 by TERRIE Woodard) Opioid use disorder, severe, in early remission Suicidal ideation Exocrine pancreatic insufficiency Polysubstance abuse No known health problems Family History: Unknown Social History: Lives with mother. Single. 19-year-old child. Unemployed. Highest level of education completed 11th grade. Substance History: opioid use on methadone. Trauma History: Denies Diagnostics Vital Signs (24Hr): BMI result Body Mass Index 45.6 Labs 08/23/24 07:34 Labs: Laboratory Results - last 48 hr 08/27/24 08:26 POC Glucose 153 H Mental Status Exam Mental Status Exam Patient Appearance: Fatigued and Appropriate Patient Orientation: Person, Place, Time and Situation Level of Consciousness: Awake and Appropriate Patient Behavior: Appropriate, Dependent and Fatigued Mood Description: Calm, Constricted, Depressed, Sad and Nervous Affect Description: Sad and Nervous Patient Cognition Impaired: No Ability to Follow Directions: Excellent Speech Pattern: Clear Memory Description: Intact Hallucinations: None Delusions: Not Present Thought Process: Intact Thought Content: positive for Goal Oriented and positive for Linear Depressive Symptoms: Increased Anxiety Judgement: Good Medications Allergies Allergies Allergy/AdvReac Type Severity Reaction Status Date / Time Penicillins [PENICILLINS] Allergy Unknown RASH Verified 08/15/24 09:34 Assessment & Plan Assessment & Plan (1) MDD (major depressive disorder), recurrent episode, moderate: Status: Acute Code(s): F33.1 - Major depressive disorder, recurrent, moderate (2) Opioid use disorder, severe, in early remission: Status: Acute Code(s): F11.21 - Opioid dependence, in remission (3) Polysubstance abuse: Status: Acute Code(s): F19.10 - Other psychoactive substance abuse, uncomplicated (4) Multifocal pneumonia: Status: Acute Code(s): J18.9 - Pneumonia, unspecified organism Plan 39 yo male who has a diagnosis of MDD and opioid dependence. He was admitted medically on 08/16 for pneumonia, transferred to on 08/22 for psychiatric treatment after medically stabilizing. On 08/27/24, while on -5, patient noted to be hypoxic and was feeling weak, dizzy and tachycardic and was transferred back to medicine. Psychiatry asked to see patient for further recommendations. Plan: - Once medically cleared will need transfer back to psychiatry to continue management of his psychiatric symptoms and continued stabilization and after care planning. Patient in agreement with the plan. Please call consult service when medically cleared. - Continue current psychiatric medications. Total time managing care of this patient today ____ minutes.
== END 2024-08-27 08:49 | disposition other institution (70) | DRG 751 ==
PROVIDERS: Admitting Provider Psychiatry & Neurology Psychiatry; Visit Provider Psychiatry & Neurology Psychiatry
DX: F33.1 Major depressive disorder, recurrent, moderate (principal); R45.851 Suicidal ideations; F19.10 Other psychoactive substance abuse, uncomplicated; F11.20 Opioid dependence, uncomplicated; Z87.891 Personal history of nicotine dependence; Z79.51 Long term (current) use of inhaled steroids; Z79.82 Long term (current) use of aspirin; Z79.899 Other long term (current) drug therapy
CPT/HCPCS: 36415; 71046; 80053; 80061; 82947; 83036; 84443; 93005

== ENCOUNTER 2024-08-22 15:04 | Outpatient (BNV) | payer MEDICAID, SELFPAY | END 2024-08-27 08:18 | PROVIDERS: Admitting Provider Psychiatry & Neurology Psychiatry; Visit Provider Internal Medicine Cardiovascular Disease | DX: R00.0 Tachycardia, unspecified (principal) | CPT/HCPCS: 93010 ==

== ENCOUNTER 2024-08-22 15:04 | Outpatient (BNV) | payer MEDICAID, SELFPAY | END 2024-08-26 19:05 | PROVIDERS: Admitting Provider Psychiatry & Neurology Psychiatry; Visit Provider Radiology Diagnostic Radiology | DX: R06.02 Shortness of breath (principal) | CPT/HCPCS: 71046 ==

== ENCOUNTER → 2024-08-22 15:04 | Outpatient (BNV) | payer OTHER, SELFPAY | PROVIDERS: Admitting Provider Psychiatry & Neurology Psychiatry; Visit Provider Registered Nurse | DX: F33.1 Major depressive disorder, recurrent, moderate (principal); F19.10 Other psychoactive substance abuse, uncomplicated; F11.21 Opioid dependence, in remission; J18.9 Pneumonia, unspecified organism | CPT/HCPCS: 99231; 99232 ==

== ENCOUNTER 2024-08-27 09:03 | Outpatient (BNV) | payer MEDICAID, SELFPAY | END 2024-08-27 14:38 | PROVIDERS: Admitting Provider Internal Medicine; Visit Provider Radiology Diagnostic Radiology | DX: R91.8 Other nonspecific abnormal finding of lung field (principal); K76.0 Fatty (change of) liver, not elsewhere classified | CPT/HCPCS: 71275 ==

== ENCOUNTER 2024-08-27 09:03 | Inpatient (IN) | payer MEDICAID, SELFPAY ==
--- NOTE | ~2024-08-27 | CT_ITS ---
CLINICAL HISTORY: Elevatd d-dimer w tachycardia and O2 91%, PE r o CT angiography of the chest with IV contrast. 3D/MIP post processing reconstructions were performed. COMPARISON: CT chest dated 08/16/24 at 14:49 EDT FINDINGS: There are no intraluminal filling defects to suggest pulmonary embolism. No evidence of right heart strain. Visualized thyroid is unremarkable. No supraclavicular or axillary lymphadenopathy. Ascending aorta and main pulmonary artery are normal in caliber. No pericardial effusion. Normal esophagus. Multiple normal-sized mediastinal lymph nodes. No pleural effusion. Consolidation within the lower lobes bilaterally. Additional areas of consolidation and ground-glass within the right upper lobe. Trachea and central airways are clear. No significant bronchial wall thickening. No bronchiectasis. Hepatic steatosis. Small splenule present No acute fracture or suspicious bone lesion. IMPRESSION: 1. Multifocal areas of consolidation and ground-glass most pronounced within the lower lobes suggestive of multifocal pneumonia or aspiration pneumonitis. 2. No evidence of pulmonary embolism. 3. Hepatic steatosis. This document has been electronically signed by: Ariel White MD on 08/27/2024 15:26:30
[2024-08-27 10:04] VITALS: BMI 47.0
[2024-08-27 10:15] LABS: MANUAL DIFF FLAG NO
[2024-08-27 10:40] LABS: B Type Natriuretic Peptide < 10 pg/mL (<100)
[2024-08-27 10:42] LABS: Alanine Aminotransferase 24 U/L (0-40); Albumin Level 3.8 g/dL (3.5-5.0); Alkaline Phosphatase 105 U/L (39-117); Anion Gap 12 (12-20); Aspartate Amino Transferase 19 U/L (5-37); Bilirubin Total 0.5 mg/dL (0.0-1.0); Blood Urea Nitrogen 8 mg/dL (9-16); Calcium 8.7 mg/dL (8.4-10.2); Carbon Dioxide 27 mmol/L (22-29); Chloride 100 mmol/L (96-108); Creatinine Clr Calc Pharmacy 162.1; Estimated Glomerular Filt Rate > 60; Glucose Random 138 mg/dL (60-115); Magnesium 1.9 mg/dL (1.6-2.6); Potassium 4.4 mmol/L (3.3-5.1); Sodium 135 mmol/L (135-145); Total Protein 7.3 g/dL (6.5-8.0)
[2024-08-27 10:43] LABS: Basophils Absolute Auto 0.1 X10*3/uL (0.0-0.2); Basophils Percent Auto 0.3 % (0-2); Eosinophils Absolute Auto 0.3 X10*3/uL (0.0-0.4); Eosinophils Percent Auto 1.4 % (0-4); Hematocrit 36.4 % (42.0-52.0); Hemoglobin 11.5 g/dl (14.0-18.0); Imm Gran Abs Auto 0.11 X10*3/uL (0.00-0.03); Imm Gran Pct Auto 0.6 % (0.0-0.4); Lymphocytes Percent Auto 5.6 % (20-40); Mean Corpuscular HGB Conc 31.6 g/dl (31.0-36.0); Mean Corpuscular Hemoglobin 24.8 pg (27.0-33.0); Mean Corpuscular Volume 78.4 fL (80.0-98.0); Mean Platelet Volume 8.9 fL (9.4-12.4); Monocytes Absolute Auto 1.1 X10*3/uL (0.1-1.2); Monocytes Percent Auto 5.8 % (2-11); Neutrophils Absolute Auto 15.6 x10*3/uL (2.0-8.3); Neutrophils Percent Auto 86.3 % (45-73); Platelet Count 255 X10*3/uL (160-400); Red Blood Count 4.64 X10*6/uL (4.60-5.80); Red Cell Distribution Width 16.4 % (11.0-16.0); White Blood Count 18.1 X10*3/uL (4.8-10.8)
[2024-08-27 10:49] LABS: Prothrombin Time 11.9 SEC (10.9-12.4)
[2024-08-27 10:51] LABS: D Dimer High Sensitivity 592 NG/ML
[2024-08-27 10:56] LABS: Thyroid Stimulating Hormone 0.46 uIU/mL (0.32-4.0)
[2024-08-27 10:59] LABS: Troponin-I High Sensitivity < 2.7 ng/L (<3.5-35.0)
[2024-08-27 11:20] LABS: Iron 24 mcg/dL (45-160); Percent Iron Saturation 9 % (15-50); Total Iron Binding Capacity 275 mcg/dL (228-428); Unsaturated Iron Binding 251 ug/dL
[2024-08-27] MEDS: OLANZapine 5 MG TABLET PO (11:28)
[2024-08-27] MEDS: Lipase/Prot/Amylase 12/38/60K CAPSULE.DR 2 CAP PO ×2 (11:28→16:34)
[2024-08-27 12:00] VITALS: BP 113/63; BP 96/54; PULSE 102; PULSE 90; RESP 18; TEMP 36.5; O2SAT 90
[2024-08-27 12:07] VITALS: BP 114/58; PULSE 94
[2024-08-27 13:35] LABS: Adenovirus PCR Not Detected (Not Detect.); Bordetella parapertussis PCR Not Detected (Not Detect.); Bordetella pertussis PCR Not Detected (Not Detect.); Chlamydia pneumoniae PCR Not Detected (Not Detect.); Coronavirus 229E PCR Not Detected (Not Detect.); Coronavirus HKU1 PCR Not Detected (Not Detect.); Coronavirus NL63 PCR Not Detected (Not Detect.); Coronavirus OC43 PCR Not Detected (Not Detect.); Human metapneumovirus PCR Not Detected (Not Detect.); Influenza A PCR Not Detected (Not Detect.); Influenza B PCR Not Detected (Not Detect.); Mycoplasma pneumoniae PCR Not Detected (Not Detect.); Parainfluenza 1 PCR Not Detected (Not Detect.); Parainfluenza 2 PCR Not Detected (Not Detect.); Parainfluenza 3 PCR Not Detected (Not Detect.); Parainfluenza 4 PCR Not Detected (Not Detect.); RSV PCR Not Detected (Not Detect.); Rhino/Enterovirus PCR Not Detected (Not Detect.)
[2024-08-27 13:37] LABS: Influenza A H1 PCR Not Detected (Not Detect.); Influenza A H1-2009 PCR Not Detected (Not Detect.); Influenza A H3 PCR Not Detected (Not Detect.); SARS-CoV-2 PCR Not Detected (Not Detect.)
[2024-08-27] MEDS: clonazePAM 0.5 MG TABLET PO ×2 (14:12→22:19)
[2024-08-27] MEDS: Lactated Ringers 1,000 ML 100 ML IVCONT (14:18)
--- NOTE | 2024-08-27 14:26 | PM.IMHP ---
History of Present Illness Date of Service: 08/27/24 Attending physician on admission: [facility] Chief Complaint: Lightheadedness Addendum: D-dimer was elevated at 592 and so CTA of chest was obtained. Initially suspicion for active infection was low as pt was not complaining of SOB or difficulty breathing, CXR from yesterday was negative for acute process, and pt had recently been treated for pneumonia on the medical floor and still taking p.o. antibiotics: cefuroxime and doxycycline which were set to end tomorrow. CTA, however, showed worsening multifocal pneumonia, especially in the right upper lobe. At this time, 15:26, pt met sepsis criteria, and lactic acid and blood cultures were obtained and pt was started on broad-spectrum IV antibiotics. Clinically pt looks stable and continues to deny SOB or difficulty breathing. Will obtain pulmonology consult for additional advice on antibiotic treatment. Original HPI: Pt is a 39-year-old male with a PMH significant for asthma, polysubstance use disorder on methadone, and bipolar disorder who initially presented to the hospital on 08/16/2024 suicide ideation and auditory and visual hallucinations. While awaiting inpatient psychiatric bed search pt was found to be hypoxic at 88% and CT of chest showed bilateral lower lobe pneumonia. Initially treated with ceftriaxone and doxycycline and then vancomycin added due to positive MRSA swab. Blood cultures negative was discharged to [facility] on cefuroxime and doxycycline for 5 more days, set to end on 08/28/2024. Rapid response was called for pt who was experiencing lightheadedness, dizziness, and weakness with standing. States last night when he went to the bathroom he noticed both bright red blood and dark colored stools with possible clots. Pt felt weak and became anxious, worrying about possible bleeding. Last night also experienced nonproductive cough while lying down that kept him up for most of the night, but denies SOB or difficulty breathing. Pt was noted to be tachycardic in the 110s and oxygen saturation low normal at 92%. BP 140/80, and pCO2 153. EKG showing normal sinus rhythm without evidence of significant ischemia. CXR yesterday negative for acute cardiopulmonary process. Will order CBC, CMP, D-dimer, TSH, troponin, BNP, and PT/PTT. Pt will be brought to the hospital floor under observation for treatment and further evaluation of lightheadedness and dizziness possibly in the setting of hematochezia. [facility] Medical History (Updated 08/27/24 @ 18:06 by TERRIE Woodard) Opioid use disorder, severe, in early remission Suicidal ideation Exocrine pancreatic insufficiency Polysubstance abuse No known health problems Social History Household Members: Family Housing: Apartment Do you presently have visiting nurse or other home services: No Alcohol intake: former Comment: sitter at bedside Patient Tobacco Use Status: Former Tobacco user Substance Use Type: Marijuana Advance Directives: Yes Advance Directives on File: Yes Advance Directives Date on File: 03/15/24 service: No Sexual orientation: Straight/Heterosexual Meds Allergies Allergy/AdvReac Type Severity Reaction Status Date / Time Penicillins [PENICILLINS] Allergy Unknown RASH Verified 08/15/24 09:34 Active Medications: Current Medications Acetaminophen (Acetaminophen 325 Mg Tablet) 650 mg PO Q6H PRN PRN Reason: Pain, Mild 1-3,fever,headache Al Hydroxide/Mg Hydroxide (Magnesium Hydrox/Alum Hydrox 30 Ml Oral.Susp) 30 ml PO Q6H PRN PRN Reason: Heartburn/Nausea Albuterol Sulfate (Albuterol Sulfate 90 Mcg 8 Gm Inhaler) 2 puff INHALE RQ4H PRN PRN Reason: Shortness of Breath Lipase/Protease/Amylase (Lipase/Prot/Amylase 12/38/60k Capsule.) 2 cap PO TIDWM SHEELA Last Admin: 08/27/24 11:28 Dose: 2 cap Aspirin (Aspirin 81 Mg Tab.Chew) 81 mg PO DAILY SHEELA Calcium Carbonate (Calcium Carbonate 750 Mg Tab.Chew) 750 mg PO Q4H PRN PRN Reason: Heartburn Cefuroxime Axetil (Cefuroxime Axetil 500 Mg Tablet) 500 mg PO BID SHEELA Stop: 08/28/24 09:01 Clonazepam (Clonazepam 0.5 Mg Tablet) 0.5 mg PO TID PRN PRN Reason: Anxiety Last Admin: 08/27/24 14:12 Dose: 0.5 mg Clonidine HCl (Clonidine Hcl 0.1 Mg Tablet) 0.1 mg PO BID PRN; Protocol PRN Reason: moderate anxiety Clonidine HCl (Clonidine Hcl 0.1 Mg Tablet) 0.1 mg PO BID SHEELA; Protocol Divalproex Sodium (Divalproex Sodium 250 Mg Tablet.) 250 mg PO BID [facility] Doxycycline Monohydrate (Doxycycline Monohydrate 100 Mg Capsule) 100 mg PO BID@0700,1900 [facility] Stop: 08/28/24 07:01 Famotidine (Famotidine 20 Mg Tablet) 20 mg PO BEDTIME [facility] Ferrous Sulfate (Ferrous Sulfate 324 Mg Tablet.) 324 mg PO DAILY [facility] Guanfacine HCl (Guanfacine Hcl Er 1 Mg Tab.Er.24h) 1 mg PO DAILY [facility] Hydrocortisone (Hydrocortisone 2.5 % Rectal Cr 30 Gm Tube) 1 appl NE DAILY [facility] Hydroxyzine HCl (Hydroxyzine Hcl 25 Mg Tablet) 25 mg PO Q6H PRN PRN Reason: mild anxiety Lactated Ringer's (Lr) 1,000 mls @ 100 mls/hr IVCONT .Q10H [facility] Stop: 08/27/24 23:44 Lactulose (Lactulose 20 Gm/30 Ml Solution) 20 gm PO DAILY PRN PRN Reason: Constipation Magnesium Hydroxide (Milk Of Magnesia 30 Ml Oral.Susp) 30 ml PO DAILY PRN PRN Reason: Constipation Magnesium Hydroxide (Milk Of Magnesia 30 Ml Oral.Susp) 30 ml PO DAILY PRN PRN Reason: Constipation Magnesium Oxide (Magnesium Oxide 400 Mg Tablet) 400 mg PO BEDTIME [facility] Melatonin (Melatonin 3 Mg Tablet) 6 mg PO BEDTIME PRN PRN Reason: Insomnia Methadone HCl (Methadone Hcl 20 Mg/2 Ml Oral.Conc) 25 mg PO DAILY@1700 [facility] Methadone HCl (Methadone Hcl 20 Mg/2 Ml Oral.Conc) 100 mg PO DAILY@0800 [facility] Multivitamins/Vitamin C (Multivitamin Tablet) 1 tab PO DAILY [facility] Nicotine (Nicotine 21 Mg Patch.Td24) 21 mg TRANSDERMA DAILY PRN PRN Reason: smoking cessation Nicotine Polacrilex (Nicotine Polacrilex 2 Mg Gum) 4 mg BUCCAL Q2H PRN PRN Reason: Nicotine Cravings Nortriptyline HCl (Nortriptyline Hcl 25 Mg Capsule) 25 mg PO BEDTIME [facility] Olanzapine (Olanzapine 5 Mg Tablet) 5 mg PO TID PRN PRN Reason: agitation Last Admin: 08/27/24 11:28 Dose: 5 mg Omeprazole (Omeprazole 20 Mg Capsule.) 20 mg PO DAILY@0630 [facility] Polyethylene Glycol (Polyethylene Glycol 3350 17 Gm Powd.Pack) 17 gm PO DAILY [facility] Quetiapine Fumarate (Quetiapine Fumarate 25 Mg Tablet) 75 mg PO BID [facility] Senna/Docusate Sodium (Sennosides/Docusate Sodium Tablet) 2 tab PO BID [facility] Sodium Chloride (0.9 % Sodium Chloride Flush 3 Ml Syringe) 3 ml IVFLUSH QSHIFT [facility] Trazodone HCl (Trazodone Hcl 50 Mg Tablet) 50 mg PO BEDTIME MRX1 PRN PRN Reason: Insomnia Venlafaxine HCl (Venlafaxine Hcl Er 150 Mg Cap.Er.24h) 150 mg PO DAILY [facility] Home Medications ?Medication ?Instructions ?Recorded ?Confirmed ?Last Taken ?Type aspirin 81 mg tablet,delayed 81 mg PO DAILY 09/02/23 08/27/24 08/14/24 History release mirtazapine 15 mg tablet 15 mg PO BEDTIME 09/02/23 08/27/24 08/14/24 History fluticasone furoate 200 1 inh inhalation DAILY 08/15/24 08/27/24 08/22/24 History mcg-vilanterol 25 mcg/dose inhalation powder (Breo Ellipta) fluoxetine 20 mg capsule 60 mg PO DAILY 08/16/24 08/27/24 08/14/24 History Physical Exam Vital Signs and Narrative: Vital Signs: Last Vital Signs Temp 97.7 F 08/27/24 12:00 Pulse 94 08/27/24 12:07 Resp 18 08/27/24 12:00 BP 114/58 L 08/27/24 12:07 Pulse Ox 90 L 08/27/24 12:00 O2 Del Method Room Air 08/27/24 12:00 BMI result Body Mass Index 47.0 General: AOx3, no acute distress Resp: CTA bilaterally CVS: S1, S2, RRR GI: +BS, NT, no distention Skin: Warm, dry Neuro: Cranial nerves II-XII grossly intact bilaterally. Motor grossly intact bilaterally Extremities: No edema Psych: Anxious Results Labs 08/27/24 10:05 08/27/24 10:05 Labs: Laboratory Results - last 24 hr 08/27/24 08/27/24 10:05 11:59 MCV 78.4 L MCH 24.8 L MCHC 31.6 RDW 16.4 H Plt Count 255 MPV 8.9 L Immature Gran % (Auto) 0.6 H Neut % (Auto) 86.3 H Lymph % (Auto) 5.6 L Barren % (Auto) 5.8 Eos % (Auto) 1.4 Baso % (Auto) 0.3 Lymph # (Auto) 1.0 L Barren # (Auto) 1.1 Eos # (Auto) 0.3 Baso # (Auto) 0.1 Abs Immat Gran (auto) 0.11 H Absolute Neuts (auto) 15.6 H Absolute Nucleated RBC 0.000 Nucleated RBC % (auto) 0.0 PT 11.9 INR 1.0 APTT 33.0 D-Dimer High Sensitivty 592 Anion Gap 12 Estim Creat Clear Calc 162.1 Estimated GFR > 60 Random Glucose 138 H Calcium 8.7 Magnesium 1.9 Iron 24 L TIBC 275 % Saturation 9 L Unsat Iron Binding 251 Total Bilirubin 0.5 AST 19 ALT 24 Alkaline Phosphatase 105 B-Natriuretic Peptide < 10 Total Protein 7.3 Albumin 3.8 TSH 0.46 Respiratory Panel Handy See Note Adenovirus (Rapid PCR) Not Detected B.pert (TEM-PCR) Not Detected B.parapertussis DNA PCR Not Detected C. pneumoniae DNA (PCR) Not Detected Coronavirus OC43 (PCR) Not Detected Coronavirus HKU1 (PCR) Not Detected Coronavirus 229E (PCR) Not Detected Coronavirus NL63 (PCR) Not Detected Human Metapneumovir PCR Not Detected Influenza A (RT-PCR) Not Detected Influenza A (H1) PCR Not Detected Influ A (H1/09) PCR Not Detected Influenza A (H3) PCR Not Detected Influenza B (RT-PCR) Not Detected M. pneumoniae (PCR) Not Detected Parainfluenza 1 (PCR) Not Detected Parainfluenza 2 (PCR) Not Detected Parainfluenza 3 (PCR) Not Detected Parainfluenza 4 (PCR) Not Detected RSV (PCR) Not Detected Entero/Rhino (PCR) Not Detected SARS-CoV-2 RNA (RT-PCR) Not Detected Assessment and Plan (1) Multifocal pneumonia: Status: Acute Plan Pt is a 39-year-old male with a PMH significant for asthma, polysubstance use disorder on methadone, and bipolar disorder who initially presented to the hospital on 08/16/2024 suicide ideation and auditory and visual hallucinations. Rapid response was called for pt who was experiencing lightheadedness, dizziness, and weakness with standing. Pt will be brought to the hospital floor under observation for treatment and further evaluation of lightheadedness and dizziness possibly in the setting of hematochezia. Worsening multifocal pneumonia with sepsis that failed outpatient therapy Pt initially treated for bilateral lower lobe pneumonia from 08/16-08/22, discharged to psych on cefuroxime and doxycycline, set to end 08/28/2024 Pt met sepsis criteria at 15:26 when CTA showed worsening bilateral pneumonia; pt with tachycardia, tachypnea, and leukocytosis; lactic acid WNL at 1.0 Pt given IVF and started on broad-spectrum antibiotics Will treat with vanc and cefepime, started 08/27/2024 Pulmonology consult Supplemental oxygen as necessary for hypoxia Monitor respiratory status Hematochezia Pt complains of bright red blood per rectum yesterday, today none in bowl but some on toilet paper after wiping Possibly secondary to hemorrhoids H&H stable at 11 0.5/36.4, similar to prior 10 days earlier Follow CBC Asthma Not in acute exacerbation Continue home inhalers Polysubstance use disorder Continue methadone Bipolar disorder Pt transferred term [facility] Continue mood stabilizers per Psychiatry Plan Psychiatry consult Obesity class III Encourage weight loss Full Code Attending:?Dr. Aguiar DVT Prophylaxis: Pneumatic compression due to concern for hematochezia Pt will require a hospitalization of at least two nights for treatment of?worsening multifocal pneumonia with sepsis that failed outpatient therapy with IV antibiotics and specialist consultation with pulmonology. Quality Stroke Does the patient have a stroke diagnosis?: No VTE Prior VTE?: No VTE Risk Level:: Medical - moderate - high VTE Device Contraindication: N/A - Device Ordered VTE Drug Contraindication: Treatment Not Indicated
[2024-08-27] MEDS: iohexoL 350 MG/ML 100 ML INFUS..BTL 65 ML IV (14:46)
[2024-08-27 15:14] LABS: Appearance Urine Clear; Color Urine Yellow; Glucose Urine UA Negative (Negative); Leukocyte Esterase Urine Negative (Negative); Nitrite Urine Negative (Negative); PH 7.5 (5.0-9.0); Urine Blood Negative (Negative); Urine Ketones Negative (Negative); Urine Protein Negative (Neg-Trace)
[2024-08-27 15:48] VITALS: BP 110/70; PULSE 92; RESP 18; TEMP 36.6; O2SAT 89
[2024-08-27] MEDS: cefEPime HCl/D5W 2 GM/50 ML PIGGYBACK IV ×2 (16:01→23:00)
[2024-08-27] MEDS: methADONE HCl 20 MG/2 ML ORAL.CONC 25 MG PO (16:33)
[2024-08-27] MEDS: vancomycin/NS 2,000 MG/500 ML PLAST..BAG 250 MG IV (16:34)
[2024-08-27] MEDS: Doxycycline Monohydrate 100 MG CAPSULE PO (18:11)
[2024-08-27] MEDS: cloNIDine HCL 0.1 MG TABLET PO (19:50)
[2024-08-27] MEDS: Famotidine 20 MG TABLET PO (19:50)
[2024-08-27] MEDS: Sennosides/Docusate Sodium TABLET 2 TAB PO (19:50)
[2024-08-27] MEDS: Divalproex Sodium 250 MG TABLET.DR PO (19:50)
[2024-08-27] MEDS: Nortriptyline HCl 25 MG CAPSULE PO (19:50)
[2024-08-27] MEDS: Magnesium Oxide 400 MG TABLET PO (19:50)
[2024-08-27] MEDS: QUEtiapine Fumarate 25 MG TABLET 75 MG PO (19:51)
[2024-08-27 19:52] VITALS: BP 115/70; PULSE 93; RESP 17; TEMP 36.5; O2SAT 90
[2024-08-27 19:57] VITALS: O2SAT 95
[2024-08-27 20:10] LABS: Glucose, Whole Blood 118 mg/dL (60-115)
[2024-08-27 23:59] VITALS: BP 143/73; PULSE 87; RESP 18; TEMP 36.4; O2SAT 99
[2024-08-28] VITALS (7 sets, daily range): BP systolic 105–138; BP diastolic 61–79; PULSE 85–95; RESP 16–20; TEMP 36.1–36.9; O2SAT 91–96
[2024-08-28] MEDS: 0.9 % Sodium Chloride Flush 3 ML SYRINGE IVFLUSH ×3 (00:01→18:01)
[2024-08-28] MEDS: vancomycin HCL 1,250 MG in 0.9 % Sodium Chloride 250 ML 166.67 MG IV ×2 (00:20→09:03)
[2024-08-28] MEDS: Omeprazole 20 MG CAPSULE.DR PO (05:35)
[2024-08-28] MEDS: Doxycycline Monohydrate 100 MG CAPSULE PO (05:35)
[2024-08-28] MEDS: clonazePAM 0.5 MG TABLET PO ×3 (05:41→22:22)
--- NOTE | 2024-08-28 07:38 | P.PNIM_ITS ---
Subjective Subjective Date of Service: 08/28/24 Interval History: Pt noted to be hypoxic at 89% on RA yesterday afternoon, current 92% on 2 L NC UA negative, respiratory panel negative Leukocytosis resolved, H&H stable and around baseline Some occasionally productive cough overnight, though overall SOB improved No additional blood per rectum or on toilet paper with last bowel movement Stool continues to be black-colored, though has been for the past few months Overall reports feeling okay, anxiety control Denies fever or chills No lightheadedness or dizziness Review of Systems Review of Systems: Yes all other systems are reviewed and are negative Physical Exam 2 Vital Signs: Vital Signs: Last Vital Signs Temp 97.5 F 08/28/24 04:00 Pulse 85 08/28/24 04:00 Resp 18 08/28/24 04:00 BP 114/65 08/28/24 04:00 Pulse Ox 92 08/28/24 04:00 O2 Del Method Nasal Cannula 08/28/24 04:00 O2 Flow Rate 2 08/28/24 04:00 BMI result Body Mass Index 47.0 General: AOx3, no acute distress Resp: CTA bilaterally CVS: S1, S2, RRR GI: +BS, NT, no distention Skin: Warm, dry Neuro: Cranial nerves II-XII grossly intact bilaterally. Motor grossly intact bilaterally Extremities: No edema Psych: Calm, cooperative Objective Data Active Medications Acetaminophen (Acetaminophen 325 Mg Tablet) 650 mg PO Q6H PRN PRN Reason: Pain, Mild 1-3,fever,headache Al Hydroxide/Mg Hydroxide (Magnesium Hydrox/Alum Hydrox 30 Ml Oral.Susp) 30 ml PO Q6H PRN PRN Reason: Heartburn/Nausea Albuterol Sulfate (Albuterol Sulfate 90 Mcg 8 Gm Inhaler) 2 puff INHALE RQ4H PRN PRN Reason: Shortness of Breath Lipase/Protease/Amylase (Lipase/Prot/Amylase 12/38/60k Capsule.) 2 cap PO TIDWM [facility] Last Admin: 08/27/24 16:34 Dose: 2 cap Documented By: CHRIS Aspirin (Aspirin 81 Mg Tab.Chew) 81 mg PO DAILY [facility] Calcium Carbonate (Calcium Carbonate 750 Mg Tab.Chew) 750 mg PO Q4H PRN PRN Reason: Heartburn Clonazepam (Clonazepam 0.5 Mg Tablet) 0.5 mg PO TID PRN PRN Reason: Anxiety Last Admin: 08/28/24 05:41 Dose: 0.5 mg Documented By: JING Clonidine HCl (Clonidine Hcl 0.1 Mg Tablet) 0.1 mg PO BID PRN; Protocol PRN Reason: moderate anxiety Clonidine HCl (Clonidine Hcl 0.1 Mg Tablet) 0.1 mg PO BID [facility]; Protocol Last Admin: 08/27/24 19:50 Dose: 0.1 mg Documented By: JING Divalproex Sodium (Divalproex Sodium 250 Mg Tablet.) 250 mg PO BID [facility] Last Admin: 08/27/24 19:50 Dose: 250 mg Documented By: JING Famotidine (Famotidine 20 Mg Tablet) 20 mg PO BEDTIME [facility] Last Admin: 08/27/24 19:50 Dose: 20 mg Documented By: JING Ferrous Sulfate (Ferrous Sulfate 324 Mg Tablet.) 324 mg PO DAILY [facility] Guanfacine HCl (Guanfacine Hcl Er 1 Mg Tab.Er.24h) 1 mg PO DAILY [facility] Hydrocortisone (Hydrocortisone 2.5 % Rectal Cr 30 Gm Tube) 1 appl LA DAILY [facility] Hydroxyzine HCl (Hydroxyzine Hcl 25 Mg Tablet) 25 mg PO Q6H PRN PRN Reason: mild anxiety Cefepime HCl (Maxipime) 2 gm in 50 mls @ 100 mls/hr IV Q8H [facility] Last Infusion: 08/27/24 23:30 Dose: Infused Documented By: JING Vancomycin HCl 1,250 mg/ (Sodium Chloride) 250 mls @ 166.667 mls/hr IV Q8H [facility] Last Infusion: 08/28/24 01:50 Dose: Infused Documented By: JING Lactulose (Lactulose 20 Gm/30 Ml Solution) 20 gm PO DAILY PRN PRN Reason: Constipation Magnesium Hydroxide (Milk Of Magnesia 30 Ml Oral.Susp) 30 ml PO DAILY PRN PRN Reason: Constipation Magnesium Hydroxide (Milk Of Magnesia 30 Ml Oral.Susp) 30 ml PO DAILY PRN PRN Reason: Constipation Magnesium Oxide (Magnesium Oxide 400 Mg Tablet) 400 mg PO BEDTIME [facility] Last Admin: 08/27/24 19:50 Dose: 400 mg Documented By: JING Melatonin (Melatonin 3 Mg Tablet) 6 mg PO BEDTIME PRN PRN Reason: Insomnia Methadone HCl (Methadone Hcl 20 Mg/2 Ml Oral.Conc) 25 mg PO DAILY@1700 [facility] Last Admin: 08/27/24 16:33 Dose: 25 mg Documented By: CHRIS Co-signed By: VICK Methadone HCl (Methadone Hcl 20 Mg/2 Ml Oral.Conc) 100 mg PO DAILY@0800 [facility] Multivitamins/Vitamin C (Multivitamin Tablet) 1 tab PO DAILY [facility] Nicotine (Nicotine 21 Mg Patch.Td24) 21 mg TRANSDERMA DAILY PRN PRN Reason: smoking cessation Nicotine Polacrilex (Nicotine Polacrilex 2 Mg Gum) 4 mg BUCCAL Q2H PRN PRN Reason: Nicotine Cravings Nortriptyline HCl (Nortriptyline Hcl 25 Mg Capsule) 25 mg PO BEDTIME [facility] Last Admin: 08/27/24 19:50 Dose: 25 mg Documented By: JING Olanzapine (Olanzapine 5 Mg Tablet) 5 mg PO TID PRN PRN Reason: agitation Last Admin: 08/27/24 11:28 Dose: 5 mg Documented By: CHRIS Omeprazole (Omeprazole 20 Mg Capsule.Dr) 20 mg PO DAILY@0630 [facility] Last Admin: 08/28/24 05:35 Dose: 20 mg Documented By: JING Pharmacy Consult (Consult Rx Vancomycin Dosing) 1 each MISCELLANE DAILY PRN PRN Reason: Consult order Polyethylene Glycol (Polyethylene Glycol 3350 17 Gm Powd.Pack) 17 gm PO DAILY [facility] Quetiapine Fumarate (Quetiapine Fumarate 25 Mg Tablet) 75 mg PO BID [facility] Last Admin: 08/27/24 19:51 Dose: 75 mg Documented By: JING Senna/Docusate Sodium (Sennosides/Docusate Sodium Tablet) 2 tab PO BID [facility] Last Admin: 08/27/24 19:50 Dose: 2 tab Documented By: JING Sodium Chloride (0.9 % Sodium Chloride Flush 3 Ml Syringe) [facility] Last Admin: 08/28/24 00:01 Dose: 3 ml Documented By: JING Trazodone HCl (Trazodone Hcl 50 Mg Tablet) 50 mg PO BEDTIME MRX1 PRN PRN Reason: Insomnia Venlafaxine HCl (Venlafaxine Hcl Er 150 Mg Cap.Er.24h) 150 mg PO DAILY [facility] Labs 08/28/24 06:58 08/28/24 06:58 Labs: Laboratory Results - last 24 hr 08/27/24 08/27/24 08/27/24 10:05 11:59 15:04 MCV 78.4 L MCH 24.8 L MCHC 31.6 RDW 16.4 H Plt Count 255 MPV 8.9 L Immature Gran % (Auto) 0.6 H Neut % (Auto) 86.3 H Lymph % (Auto) 5.6 L [place] % (Auto) 5.8 Eos % (Auto) 1.4 Baso % (Auto) 0.3 Lymph # (Auto) 1.0 L [place] # (Auto) 1.1 Eos # (Auto) 0.3 Baso # (Auto) 0.1 Abs Immat Gran (auto) 0.11 H Absolute Neuts (auto) 15.6 H Absolute Nucleated RBC 0.000 Nucleated RBC % (auto) 0.0 PT 11.9 INR 1.0 APTT 33.0 D-Dimer High Sensitivty 592 Anion Gap 12 Estim Creat Clear Calc 162.1 Estimated GFR > 60 POC Glucose Random Glucose 138 H Lactic Acid Calcium 8.7 Magnesium 1.9 Iron 24 L TIBC 275 % Saturation 9 L Unsat Iron Binding 251 Total Bilirubin 0.5 AST 19 ALT 24 Alkaline Phosphatase 105 B-Natriuretic Peptide < 10 Total Protein 7.3 Albumin 3.8 TSH 0.46 Urine Color Yellow Urine Appearance Clear Urine pH 7.5 Ur Specific [place] 1.020 Urine Protein Negative Urine Glucose (UA) Negative Urine Ketones Negative Urine Blood Negative Urine Nitrite Negative Ur Leukocyte Esterase Negative Respiratory Panel Handy See Note Adenovirus (Rapid PCR) Not Detected B.pert (TEM-PCR) Not Detected B.parapertussis DNA PCR Not Detected C. pneumoniae DNA (PCR) Not Detected Coronavirus OC43 (PCR) Not Detected Coronavirus HKU1 (PCR) Not Detected Coronavirus 229E (PCR) Not Detected Coronavirus NL63 (PCR) Not Detected Human Metapneumovir PCR Not Detected Influenza A (RT-PCR) Not Detected Influenza A (H1) PCR Not Detected Influ A (H1/09) PCR Not Detected Influenza A (H3) PCR Not Detected Influenza B (RT-PCR) Not Detected M. pneumoniae (PCR) Not Detected Parainfluenza 1 (PCR) Not Detected Parainfluenza 2 (PCR) Not Detected Parainfluenza 3 (PCR) Not Detected Parainfluenza 4 (PCR) Not Detected RSV (PCR) Not Detected Entero/Rhino (PCR) Not Detected SARS-CoV-2 RNA (RT-PCR) Not Detected 08/27/24 08/27/24 15:48 20:03 MCV MCH MCHC RDW Plt Count MPV Immature Gran % (Auto) Neut % (Auto) Lymph % (Auto) [place] % (Auto) Eos % (Auto) Baso % (Auto) Lymph # (Auto) [place] # (Auto) Eos # (Auto) Baso # (Auto) Abs Immat Gran (auto) Absolute Neuts (auto) Absolute Nucleated RBC Nucleated RBC % (auto) PT INR APTT D-Dimer High Sensitivty Anion Gap Estim Creat Clear Calc Estimated GFR POC Glucose 118 H Random Glucose Lactic Acid 1.0 Calcium Magnesium Iron TIBC % Saturation Unsat Iron Binding Total Bilirubin AST ALT Alkaline Phosphatase B-Natriuretic Peptide Total Protein Albumin TSH Urine Color Urine Appearance Urine pH Ur Specific [place] Urine Protein Urine Glucose (UA) Urine Ketones Urine Blood Urine Nitrite Ur Leukocyte Esterase Respiratory Panel Handy Adenovirus (Rapid PCR) B.pert (TEM-PCR) B.parapertussis DNA PCR C. pneumoniae DNA (PCR) Coronavirus OC43 (PCR) Coronavirus HKU1 (PCR) Coronavirus 229E (PCR) Coronavirus NL63 (PCR) Human Metapneumovir PCR Influenza A (RT-PCR) Influenza A (H1) PCR Influ A (H1/09) PCR Influenza A (H3) PCR Influenza B (RT-PCR) M. pneumoniae (PCR) Parainfluenza 1 (PCR) Parainfluenza 2 (PCR) Parainfluenza 3 (PCR) Parainfluenza 4 (PCR) RSV (PCR) Entero/Rhino (PCR) SARS-CoV-2 RNA (RT-PCR) Assessment and Plan (1) Multifocal pneumonia: Status: Acute Plan Pt is a 39-year-old male with a PMH significant for asthma, polysubstance use disorder on methadone, and bipolar disorder who initially presented to the hospital on 08/16/2024 suicide ideation and auditory and visual hallucinations. Rapid response was called for pt who was experiencing lightheadedness, dizziness, and weakness with standing. Pt will be brought to the hospital floor under observation for treatment and further evaluation of lightheadedness and dizziness possibly in the setting of hematochezia. Acute hypoxic respiratory failure in the setting of worsening multifocal pneumonia with sepsis that failed outpatient therapy Pt initially treated for bilateral lower lobe pneumonia from 08/16-08/22, discharged to psych on cefuroxime and doxycycline, set to end 08/28/2024 Will treat with vanc and cefepime, day 2 Pulmonology consult Titrate supplemental O2 >92, wean as tolerated Monitor respiratory status Hematochezia Pt complains of bright red blood per rectum with clots in toilet on Wednesday night, some on toilet paper after wiping x2 yesterday No blood during last bowel movement Likely secondary to hemorrhoids H&H stable Continue home hemorroidal cream Follow CBC Lightheadedness/dizziness episodes Pt reports ?attacks? of lightheadedness, dizziness, diaphoresis, tachycardia for the past few years Often associated with having bowel movement Reports symptoms last all day and only alleviated with Valium Unclear etiology: Differential includes Vasovagal vs psychogenic or some combination thereof Asthma Not in acute exacerbation Continue home inhalers Polysubstance use disorder Continue methadone Bipolar disorder Pt transferred term [facility] Psychiatric unit Continue mood stabilizers per Psychiatry Plan Psychiatry consult Obesity class III Encourage weight loss Full Code DVT Prophylaxis: Pneumatic compression due to concern for hematochezia Pt will require continued hospitalization for treatment with IV antibiotics of worsening multifocal pneumonia with sepsis and hypoxia, as well as administration of supplemental oxygen and close monitoring of CBC. Quality Stroke Does the patient have a stroke diagnosis?: No VTE Prior VTE?: No VTE Risk Level:: Medical - moderate - high VTE Device Contraindication: N/A - Device Ordered VTE Drug Contraindication: Treatment Not Indicated
[2024-08-28 07:42] LABS: Hemoglobin 10.8 g/dl (14.0-18.0); Mean Corpuscular HGB Conc 30.9 g/dl (31.0-36.0); Mean Corpuscular Hemoglobin 24.9 pg (27.0-33.0); Mean Corpuscular Volume 80.8 fL (80.0-98.0); Mean Platelet Volume 9.1 fL (9.4-12.4); Platelet Count 226 X10*3/uL (160-400); Red Blood Count 4.33 X10*6/uL (4.60-5.80); Red Cell Distribution Width 16.9 % (11.0-16.0); White Blood Count 8.4 X10*3/uL (4.8-10.8)
[2024-08-28 07:57] LABS: Anion Gap 13 (12-20); Blood Urea Nitrogen 12 mg/dL (9-16); Calcium 8.4 mg/dL (8.4-10.2); Carbon Dioxide 27 mmol/L (22-29); Chloride 101 mmol/L (96-108); Creatinine Clr Calc Pharmacy 162.1; Estimated Glomerular Filt Rate > 60; Glucose Random 150 mg/dL (60-115); Potassium 3.9 mmol/L (3.3-5.1); Sodium 137 mmol/L (135-145)
--- NOTE | 2024-08-28 08:11 | HE.PHANOTE ---
RE ROSEMARYO Patients level is due 08/28 @1500. Patient has only received load and 1 maintenance dose, will continue with current dosing. Predicted AUC 591
[2024-08-28] MEDS: polyethylene glycoL 3350 17 GM POWD.PACK PO (09:00)
[2024-08-28] MEDS: Divalproex Sodium 250 MG TABLET.DR PO ×2 (09:01→20:36)
[2024-08-28] MEDS: QUEtiapine Fumarate 25 MG TABLET 75 MG PO ×2 (09:01→20:36)
[2024-08-28] MEDS: Venlafaxine HCl ER 150 MG CAP.ER.24H PO (09:02)
[2024-08-28] MEDS: Aspirin 81 MG TAB.CHEW PO (09:02)
[2024-08-28] MEDS: Ferrous Sulfate 324 MG TABLET.DR PO (09:02)
[2024-08-28] MEDS: Multivitamin TABLET 1 TAB PO (09:02)
[2024-08-28] MEDS: Lipase/Prot/Amylase 12/38/60K CAPSULE.DR 2 CAP PO ×3 (09:02→18:01)
[2024-08-28] MEDS: Sennosides/Docusate Sodium TABLET 2 TAB PO ×2 (09:02→20:36)
[2024-08-28] MEDS: guanFACINE HCl ER 1 MG TAB.ER.24H PO (09:03)
[2024-08-28] MEDS: cefEPime HCl/D5W 2 GM/50 ML PIGGYBACK IV ×3 (09:08→23:35)
[2024-08-28] MEDS: methADONE HCl 20 MG/2 ML ORAL.CONC 100 MG PO (09:14)
--- NOTE | 2024-08-28 10:48 | MHC.CM.PN ---
GOMES 08/27/24 Patient transferred from [facility] [place] [facility] for Lightheadedness +Hematochezia. He reports that he lives with his Mother. He is independent with adls, no AD. He receives Methadone from [facility]. DP return to [facility] for medication adjustments for depression anxiety and SI.
[2024-08-28] MEDS: Hydrocortisone 2.5 % Rectal Cr 30 GM TUBE 1 APPL PR (11:31)
[2024-08-28] MEDS: cloNIDine HCL 0.1 MG TABLET PO ×3 (11:42→20:36)
--- NOTE | 2024-08-28 13:13 | P.CONPL_ITS ---
History of Present Illness History of Present Illness Consult date: 08/28/24 Chief complaint: Lightheadedness hematochezia Narrative: This is an inpt pulmonary consultation. Pt is a 39-year-old male with a PMH significant for asthma, polysubstance use disorder on methadone, and bipolar disorder who initially presented to the hospital on 08/16/2024 suicide ideation and auditory and visual hallucinations. While awaiting inpatient psychiatric bed search pt was found to be hypoxic at 88% and CT of chest showed bilateral lower lobe pneumonia. Initially treated with ceftriaxone and doxycycline and then vancomycin added due to positive MRSA swab. Blood cultures negative was discharged to [facility] on cefuroxime and doxycycline for 5 more days, set to end on 08/28/2024. Rapid response was called for pt who was experiencing lightheadedness, dizziness, and weakness with standing. States last night when he went to the bathroom he noticed both bright red blood and dark colored stools with possible clots. Pt felt weak and became anxious, worrying about possible bleeding. Last night also experienced nonproductive cough while lying down that kept him up for most of the night, but denies SOB or difficulty breathing. Pt was noted to be tachycardic in the 110s and oxygen saturation low normal at 92%. BP 140/80, and pCO2 153. EKG showing normal sinus rhythm without evidence of significant ischemia. CXR yesterday negative for acute cardiopulmonary process. Will order CBC, CMP, D-dimer, TSH, troponin, BNP, and PT/PTT. Pt will be brought to the hospital floor under observation for treatment and further evaluation of lightheadedness and dizziness possibly in the setting of hematochezia. From a pulmonary standpoint, he is doing ok. I did personally reviewed his CTA and compare to previous demonstrating GGO and bibasilar consolidations. I suspect a degree of micro-aspirations. Review of Systems 2 Review of Systems: Gen: no fever Resp: no sob, no cough CV: no chest, no ATKINSON, no leg edema GI: No n/v, no abd pain Neuro: No confusion PMFSH Past Medical History Medical History (Updated 08/27/24 @ 18:06 by TERRIE Woodard) Opioid use disorder, severe, in early remission Suicidal ideation Exocrine pancreatic insufficiency Polysubstance abuse No known health problems Social History Social History Household Members: Family Housing: Apartment Do you presently have visiting nurse or other home services: No Alcohol intake: former Comment: sitter at bedside Patient Tobacco Use Status: Former Tobacco user Substance Use Type: Marijuana Currently Displaying Signs/Symptoms of Drug Intoxication Withdrawal: No Advance Directives: Yes Advance Directives on File: Yes Advance Directives Date on File: 03/15/24 service: No Sexual orientation: Straight/Heterosexual Meds Allergies Allergy/AdvReac Type Severity Reaction Status Date / Time Penicillins [PENICILLINS] Allergy Unknown RASH Verified 08/15/24 09:34 Active Medications: Current Medications Acetaminophen (Acetaminophen 325 Mg Tablet) 650 mg PO Q6H PRN PRN Reason: Pain, Mild 1-3,fever,headache Al Hydroxide/Mg Hydroxide (Magnesium Hydrox/Alum Hydrox 30 Ml Oral.Susp) 30 ml PO Q6H PRN PRN Reason: Heartburn/Nausea Albuterol Sulfate (Albuterol Sulfate 90 Mcg 8 Gm Inhaler) 2 puff INHALE RQ4H PRN PRN Reason: Shortness of Breath Lipase/Protease/Amylase (Lipase/Prot/Amylase 12/38/60k Capsule.) 2 cap PO TIDWM [facility] Last Admin: 08/28/24 09:02 Dose: 2 cap Aspirin (Aspirin 81 Mg Tab.Chew) 81 mg PO DAILY [facility] Last Admin: 08/28/24 09:02 Dose: 81 mg Calcium Carbonate (Calcium Carbonate 750 Mg Tab.Chew) 750 mg PO Q4H PRN PRN Reason: Heartburn Clonazepam (Clonazepam 0.5 Mg Tablet) 0.5 mg PO TID PRN PRN Reason: Anxiety Last Admin: 08/28/24 05:41 Dose: 0.5 mg Clonidine HCl (Clonidine Hcl 0.1 Mg Tablet) 0.1 mg PO BID PRN; Protocol PRN Reason: moderate anxiety Clonidine HCl (Clonidine Hcl 0.1 Mg Tablet) 0.1 mg PO BID [facility]; Protocol Last Admin: 08/28/24 11:42 Dose: 0.1 mg Divalproex Sodium (Divalproex Sodium 250 Mg Tablet.) 250 mg PO BID [facility] Last Admin: 08/28/24 09:01 Dose: 250 mg Famotidine (Famotidine 20 Mg Tablet) 20 mg PO BEDTIME [facility] Last Admin: 08/27/24 19:50 Dose: 20 mg Ferrous Sulfate (Ferrous Sulfate 324 Mg Tablet.Dr) 324 mg PO DAILY [facility] Last Admin: 08/28/24 09:02 Dose: 324 mg Guanfacine HCl (Guanfacine Hcl Er 1 Mg Tab.Er.24h) 1 mg PO DAILY [facility] Last Admin: 08/28/24 09:03 Dose: 1 mg Hydrocortisone (Hydrocortisone 2.5 % Rectal Cr 30 Gm Tube) 1 appl [place] DAILY [facility] Last Admin: 08/28/24 11:31 Dose: 1 appl Hydroxyzine HCl (Hydroxyzine Hcl 25 Mg Tablet) 25 mg PO Q6H PRN PRN Reason: mild anxiety Cefepime HCl (Maxipime) 2 gm in 50 mls @ 100 mls/hr IV Q8H [facility] Last Infusion: 08/28/24 11:30 Dose: Infused Vancomycin HCl 1,250 mg/ (Sodium Chloride) 250 mls @ 166.667 mls/hr IV Q8H [facility] Last Infusion: 08/28/24 11:42 Dose: Infused Lactulose (Lactulose 20 Gm/30 Ml Solution) 20 gm PO DAILY PRN PRN Reason: Constipation Magnesium Hydroxide (Milk Of Magnesia 30 Ml Oral.Susp) 30 ml PO DAILY PRN PRN Reason: Constipation Magnesium Hydroxide (Milk Of Magnesia 30 Ml Oral.Susp) 30 ml PO DAILY PRN PRN Reason: Constipation Magnesium Oxide (Magnesium Oxide 400 Mg Tablet) 400 mg PO BEDTIME [facility] Last Admin: 08/27/24 19:50 Dose: 400 mg Melatonin (Melatonin 3 Mg Tablet) 6 mg PO BEDTIME PRN PRN Reason: Insomnia Methadone HCl (Methadone Hcl 20 Mg/2 Ml Oral.Conc) 25 mg PO DAILY@1700 [facility] Last Admin: 08/27/24 16:33 Dose: 25 mg Methadone HCl (Methadone Hcl 20 Mg/2 Ml Oral.Conc) 100 mg PO DAILY@0800 [facility] Last Admin: 08/28/24 09:14 Dose: 100 mg Multivitamins/Vitamin C (Multivitamin Tablet) 1 tab PO DAILY [facility] Last Admin: 08/28/24 09:02 Dose: 1 tab Nicotine (Nicotine 21 Mg Patch.Td24) 21 mg TRANSDERMA DAILY PRN PRN Reason: smoking cessation Nicotine Polacrilex (Nicotine Polacrilex 2 Mg Gum) 4 mg BUCCAL Q2H PRN PRN Reason: Nicotine Cravings Nortriptyline HCl (Nortriptyline Hcl 25 Mg Capsule) 25 mg PO BEDTIME [facility] Last Admin: 08/27/24 19:50 Dose: 25 mg Olanzapine (Olanzapine 5 Mg Tablet) 5 mg PO TID PRN PRN Reason: agitation Last Admin: 08/27/24 11:28 Dose: 5 mg Omeprazole (Omeprazole 20 Mg Capsule.Dr) 20 mg PO DAILY@0630 [facility] Last Admin: 08/28/24 05:35 Dose: 20 mg Pharmacy Consult (Consult Rx Vancomycin Dosing) 1 each MISCELLANE DAILY PRN PRN Reason: Consult order Polyethylene Glycol (Polyethylene Glycol 3350 17 Gm Powd.Pack) 17 gm PO DAILY [facility] Last Admin: 08/28/24 09:00 Dose: 17 gm Quetiapine Fumarate (Quetiapine Fumarate 25 Mg Tablet) 75 mg PO BID [facility] Last Admin: 08/28/24 09:01 Dose: 75 mg Senna/Docusate Sodium (Sennosides/Docusate Sodium Tablet) 2 tab PO BID [facility] Last Admin: 08/28/24 09:02 Dose: 2 tab Sodium Chloride (0.9 % Sodium Chloride Flush 3 Ml Syringe) 3 ml IVFLUSH QSHIFT [facility] Last Admin: 08/28/24 09:09 Dose: 3 ml Trazodone HCl (Trazodone Hcl 50 Mg Tablet) 50 mg PO BEDTIME MRX1 PRN PRN Reason: Insomnia Venlafaxine HCl (Venlafaxine Hcl Er 150 Mg Cap.Er.24h) 150 mg PO DAILY [facility] Last Admin: 08/28/24 09:02 Dose: 150 mg Home Medications ?Medication ?Instructions ?Recorded ?Confirmed ?Last Taken ?Type aspirin 81 mg tablet,delayed 81 mg PO DAILY 09/02/23 08/27/24 08/14/24 History release mirtazapine 15 mg tablet 15 mg PO BEDTIME 09/02/23 08/27/24 08/14/24 History fluticasone furoate 200 1 inh inhalation DAILY 08/15/24 08/27/24 08/22/24 History mcg-vilanterol 25 mcg/dose inhalation powder (Breo Ellipta) fluoxetine 20 mg capsule 60 mg PO DAILY 08/16/24 08/27/24 08/14/24 History Physical Exam 2 Vital Signs: Vital Signs: Last Vital Signs Temp 98.5 F 08/28/24 12:00 Pulse 94 08/28/24 12:00 Resp 18 08/28/24 12:00 BP 110/61 08/28/24 12:00 Pulse Ox 93 08/28/24 12:00 O2 Del Method Room Air 08/28/24 12:00 O2 Flow Rate 2 08/28/24 08:00 BMI result Body Mass Index 47.0 General: AOx3, no acute distress Resp: CTA bilaterally CVS: S1, S2, RRR GI: +BS, NT, no distention Skin: Warm, dry Neuro: Cranial nerves II-XII grossly intact bilaterally. Motor grossly intact bilaterally Extremities: No edema Psych: Appropriate affect Results Laboratory Findings 08/28/24 06:58 08/28/24 06:58 ABG, PT/INR, D-dimer: PT/INR, D-dimer PT 11.9 SEC (10.9-12.4) 08/27/24 10:05 INR 1.0 (0.9-1.1) 08/27/24 10:05 Abnormal lab findings: Abnormal Labs 08/27/24 08/27/24 08/28/24 10:05 20:03 06:58 WBC 18.1 H RBC 4.33 L Hgb 11.5 L 10.8 L Hct 36.4 L 35.0 L MCV 78.4 L MCH 24.8 L 24.9 L MCHC 30.9 L RDW 16.4 H 16.9 H MPV 8.9 L 9.1 L Immature Gran % (Auto) 0.6 H Neut % (Auto) 86.3 H Lymph % (Auto) 5.6 L Lymph # (Auto) 1.0 L Abs Immat Gran (auto) 0.11 H Absolute Neuts (auto) 15.6 H BUN 8 L POC Glucose 118 H Random Glucose 138 H 150 H Iron 24 L % Saturation 9 L Assessment and Plan (1) Multifocal pneumonia: Status: Acute (2) Acute exacerbation of moderate persistent extrinsic asthma: Status: Acute (3) Pneumonitis: Status: Acute Plan would change to PO abx: Bactrim and Vantin (or Levaquin) to complete a 14 day course. He already follow up with pulmonary titrate oxygen to keep pox>90%. Should be using oxygen while sleeping already based on previous pulmonary notes Bloodwork requested Barium swallow consider bronchoscopy consider GI eval. Pt describes that his symptoms are usually related to his bowel habits. Need to consider Carconoid syndrome. I did order Chromogranin A, as a screening test. consider further evaluation. Procedures Date of Service Date of Service: 08/28/24
[2024-08-28 15:36] LABS: Vancomycin Random 20.5 mcg/mL (15-20)
[2024-08-28 16:00] LABS: Erythrocyte Sedimentation Rate 28 MM/HR (0-15)
[2024-08-28] MEDS: methADONE HCl 20 MG/2 ML ORAL.CONC 25 MG PO (18:01)
[2024-08-28] MEDS: Famotidine 20 MG TABLET PO (20:36)
[2024-08-28] MEDS: Magnesium Oxide 400 MG TABLET PO (20:36)
[2024-08-28] MEDS: Nortriptyline HCl 25 MG CAPSULE PO (20:36)
[2024-08-28] MEDS: vancomycin HCL 1,000 MG in 0.9 % Sodium Chloride 250 ML 270 MG IV (20:37)
[2024-08-28] MEDS: OLANZapine 5 MG TABLET PO (21:00)
[2024-08-29] MEDS: 0.9 % Sodium Chloride Flush 3 ML SYRINGE IVFLUSH ×4 (00:40→19:49)
[2024-08-29] MEDS: Albuterol Sulfate 90 MCG 8 GM INHALER 2 PUFF INHALE (02:49)
[2024-08-29] MEDS: Throat Lozenge, Medicated LOZENGE 1 LOZENGE MUCOUS MEM ×2 (02:59→06:01)
[2024-08-29] MEDS: vancomycin HCL 1,000 MG in 0.9 % Sodium Chloride 250 ML 270 MG IV ×3 (03:03→19:48)
[2024-08-29 04:00] VITALS: BP 130/73; PULSE 95; RESP 16; TEMP 36.6; O2SAT 91
[2024-08-29] MEDS: Omeprazole 20 MG CAPSULE.DR PO (05:58)
[2024-08-29] MEDS: clonazePAM 0.5 MG TABLET PO ×3 (06:01→19:52)
[2024-08-29 06:27] LABS: Hematocrit 34.8 % (42.0-52.0); Hemoglobin 10.4 g/dl (14.0-18.0); Mean Corpuscular HGB Conc 29.9 g/dl (31.0-36.0); Mean Corpuscular Hemoglobin 24.4 pg (27.0-33.0); Mean Corpuscular Volume 81.5 fL (80.0-98.0); Mean Platelet Volume 9.2 fL (9.4-12.4); Platelet Count 262 X10*3/uL (160-400); Red Blood Count 4.27 X10*6/uL (4.60-5.80); Red Cell Distribution Width 16.7 % (11.0-16.0); White Blood Count 12.5 X10*3/uL (4.8-10.8)
[2024-08-29 06:28] LABS: Creatinine Clr Calc Pharmacy 152.9; Estimated Glomerular Filt Rate > 60
[2024-08-29] MEDS: methADONE HCl 20 MG/2 ML ORAL.CONC 100 MG PO (08:07)
[2024-08-29] MEDS: Lipase/Prot/Amylase 12/38/60K CAPSULE.DR 2 CAP PO ×3 (08:10→17:22)
[2024-08-29] MEDS: polyethylene glycoL 3350 17 GM POWD.PACK PO (08:11)
[2024-08-29 08:12] VITALS: BP 116/68; PULSE 97; RESP 18; TEMP 36.1; O2SAT 94
[2024-08-29] MEDS: cefEPime HCl/D5W 2 GM/50 ML PIGGYBACK IV ×3 (08:25→23:21)
[2024-08-29 08:26] LABS: Procalcitonin 0.03 ng/mL
[2024-08-29 08:31] LABS: HIV AB/AG Nonreactive (Nonreactive); HIV Num 1 0.13 S/CO (0.00-0.99)
[2024-08-29] MEDS: guanFACINE HCl ER 1 MG TAB.ER.24H PO (09:25)
[2024-08-29] MEDS: Aspirin 81 MG TAB.CHEW PO (09:25)
[2024-08-29] MEDS: cloNIDine HCL 0.1 MG TABLET PO ×2 (09:25→19:52)
[2024-08-29] MEDS: Sennosides/Docusate Sodium TABLET 2 TAB PO ×2 (09:25→19:51)
[2024-08-29] MEDS: QUEtiapine Fumarate 25 MG TABLET 75 MG PO ×2 (09:26→19:51)
[2024-08-29] MEDS: Ferrous Sulfate 324 MG TABLET.DR PO (09:26)
[2024-08-29] MEDS: Venlafaxine HCl ER 150 MG CAP.ER.24H PO (09:26)
[2024-08-29] MEDS: Multivitamin TABLET 1 TAB PO (09:26)
[2024-08-29] MEDS: Divalproex Sodium 250 MG TABLET.DR PO ×2 (09:26→19:51)
[2024-08-29] MEDS: Acetaminophen 325 MG TABLET 650 MG PO (09:35)
[2024-08-29] MEDS: OLANZapine 5 MG TABLET PO ×2 (09:35→18:26)
--- NOTE | 2024-08-29 09:50 | PM.GICN ---
History of Present Illness Data of Consult Service Date: 08/29/24 Primary Care Provider: [facility] HPI Reason for consult: rectal bleeding 39-year-old male with hx of asthma, polysubstance use disorder on methadone, and bipolar disorder who i am seeing for assessment for rectal bleeding. Patient was initially admitted 08/16/24 with suicide ideation and auditory and visual hallucinations to the psych unit but then was transferred to medical floor with dizziness, weakness and non productive coughing. Cough is now productive with brown colored sputum noted. Imaging revealed b/l lower pneumonia and now receiving ABX for HCAP with MRSA coverage. PAtient does admit to wosening constipation and straining at stool last few years. Of note is also on methadone but denies prior colonoscopy or fh of crc. He denies taking nsaids. he also noted feeling some lumps in his anal area at times HGB has been stable thus far at around 10-11 g/dl. Review of Systems Review of Systems: Constitutional : No Weight loss, No Fever, No Chills ENT/Mouth : No sore throat, No Rhinorrhea Eyes: No Swelling, No Redness Cardiovascular : No Chest Pain, No SOB, No Edema Respiratory : + Cough, + Sputum, No Wheezing Gastrointestinal : see HPI Genitourinary : NO Dysuria, No Urinary Frequency, No Hematuria, No Urgency Musculoskeletal : + joint pain, No Myalgias, No Joint Swelling Skin : No Skin Lesions, No rash Neuro : No Weakness, No Numbness, No Dizziness, No Headache Psych : No Anxiety/Panic, No Depression Heme/Lymph: No Bruising, No Lymphadenopathy Endocrine : No Polyuria, No Polydipsia All other systems reviewed and are negative. [facility] Past Medical History Medical History (Updated 08/29/24 @ 16:54 by Laney Rodas MD) Opioid use disorder, severe, in early remission Suicidal ideation Exocrine pancreatic insufficiency Polysubstance abuse No known health problems Family History Pertinent family history: no fh of cRC Social History Social History Household Members: Family Housing: Apartment Do you presently have visiting nurse or other home services: No Alcohol intake: former Comment: sitter at bedside Patient Tobacco Use Status: Former Tobacco user Substance Use Type: Marijuana Currently Displaying Signs/Symptoms of Drug Intoxication Withdrawal: No Advance Directives: Yes Advance Directives on File: Yes Advance Directives Date on File: 03/15/24 service: No Sexual orientation: Straight/Heterosexual Meds Allergies Allergy/AdvReac Type Severity Reaction Status Date / Time Penicillins [PENICILLINS] Allergy Unknown RASH Verified 08/15/24 09:34 Active Medications: Current Medications Acetaminophen (Acetaminophen 325 Mg Tablet) 650 mg PO Q6H PRN PRN Reason: Pain, Mild 1-3,fever,headache Last Admin: 08/29/24 09:35 Dose: 650 mg Al Hydroxide/Mg Hydroxide (Magnesium Hydrox/Alum Hydrox 30 Ml Oral.Susp) 30 ml PO Q6H PRN PRN Reason: Heartburn/Nausea Albuterol Sulfate (Albuterol Sulfate 90 Mcg 8 Gm Inhaler) 2 puff INHALE RQ4H PRN PRN Reason: Shortness of Breath Last Admin: 08/29/24 02:49 Dose: 2 puff Lipase/Protease/Amylase (Lipase/Prot/Amylase 12/38/60k Capsule.) 2 cap PO TIDWM [facility] Last Admin: 08/29/24 08:10 Dose: 2 cap Aspirin (Aspirin 81 Mg Tab.Chew) 81 mg PO DAILY [facility] Last Admin: 08/29/24 09:25 Dose: 81 mg Benzocaine (Throat Lozenge, Medicated Lozenge) 1 lozenge MUCOUS MEM Q2H PRN PRN Reason: Sore Throat Last Admin: 08/29/24 06:01 Dose: 1 lozenge Calcium Carbonate (Calcium Carbonate 750 Mg Tab.Chew) 750 mg PO Q4H PRN PRN Reason: Heartburn Clonazepam (Clonazepam 0.5 Mg Tablet) 0.5 mg PO TID PRN PRN Reason: Anxiety Last Admin: 08/29/24 06:01 Dose: 0.5 mg Clonidine HCl (Clonidine Hcl 0.1 Mg Tablet) 0.1 mg PO BID PRN; Protocol PRN Reason: moderate anxiety Last Admin: 08/28/24 18:17 Dose: 0.1 mg Clonidine HCl (Clonidine Hcl 0.1 Mg Tablet) 0.1 mg PO BID [facility]; Protocol Last Admin: 08/29/24 09:25 Dose: 0.1 mg Divalproex Sodium (Divalproex Sodium 250 Mg Tablet.) 250 mg PO BID [facility] Last Admin: 08/29/24 09:26 Dose: 250 mg Famotidine (Famotidine 20 Mg Tablet) 20 mg PO BEDTIME [facility] Last Admin: 08/28/24 20:36 Dose: 20 mg Ferrous Sulfate (Ferrous Sulfate 324 Mg Tablet.Dr) 324 mg PO DAILY [facility] Last Admin: 08/29/24 09:26 Dose: 324 mg Guanfacine HCl (Guanfacine Hcl Er 1 Mg Tab.Er.24h) 1 mg PO DAILY [facility] Last Admin: 08/29/24 09:25 Dose: 1 mg Hydrocortisone (Hydrocortisone 2.5 % Rectal Cr 30 Gm Tube) 1 appl [place] DAILY [facility] Last Admin: 08/28/24 11:31 Dose: 1 appl Hydroxyzine HCl (Hydroxyzine Hcl 25 Mg Tablet) 25 mg PO Q6H PRN PRN Reason: mild anxiety Cefepime HCl (Maxipime) 2 gm in 50 mls @ 100 mls/hr IV Q8H [facility] Last Infusion: 08/29/24 09:00 Dose: Infused Vancomycin HCl 1,000 mg/ (Sodium Chloride) 270 mls @ 270 mls/hr IV Q8H [facility] Last Infusion: 08/29/24 04:03 Dose: Infused Lactulose (Lactulose 20 Gm/30 Ml Solution) 20 gm PO DAILY PRN PRN Reason: Constipation Magnesium Hydroxide (Milk Of Magnesia 30 Ml Oral.Susp) 30 ml PO DAILY PRN PRN Reason: Constipation Magnesium Hydroxide (Milk Of Magnesia 30 Ml Oral.Susp) 30 ml PO DAILY PRN PRN Reason: Constipation Magnesium Oxide (Magnesium Oxide 400 Mg Tablet) 400 mg PO BEDTIME [facility] Last Admin: 08/28/24 20:36 Dose: 400 mg Melatonin (Melatonin 3 Mg Tablet) 6 mg PO BEDTIME PRN PRN Reason: Insomnia Methadone HCl (Methadone Hcl 20 Mg/2 Ml Oral.Conc) 25 mg PO DAILY@1700 [facility] Last Admin: 08/28/24 18:01 Dose: 25 mg Methadone HCl (Methadone Hcl 20 Mg/2 Ml Oral.Conc) 100 mg PO DAILY@0800 [facility] Last Admin: 08/29/24 08:07 Dose: 100 mg Multivitamins/Vitamin C (Multivitamin Tablet) 1 tab PO DAILY [facility] Last Admin: 08/29/24 09:26 Dose: 1 tab Nicotine (Nicotine 21 Mg Patch.Td24) 21 mg TRANSDERMA DAILY PRN PRN Reason: smoking cessation Nicotine Polacrilex (Nicotine Polacrilex 2 Mg Gum) 4 mg BUCCAL Q2H PRN PRN Reason: Nicotine Cravings Nortriptyline HCl (Nortriptyline Hcl 25 Mg Capsule) 25 mg PO BEDTIME [facility] Last Admin: 08/28/24 20:36 Dose: 25 mg Olanzapine (Olanzapine 5 Mg Tablet) 5 mg PO TID PRN PRN Reason: agitation Last Admin: 08/29/24 09:35 Dose: 5 mg Omeprazole (Omeprazole 20 Mg Capsule.Dr) 20 mg PO DAILY@0630 [facility] Last Admin: 08/29/24 05:58 Dose: 20 mg Pharmacy Consult (Consult Rx Vancomycin Dosing) 1 each MISCELLANE DAILY PRN PRN Reason: Consult order Polyethylene Glycol (Polyethylene Glycol 3350 17 Gm Powd.Pack) 17 gm PO DAILY [facility] Last Admin: 08/29/24 08:11 Dose: 17 gm Quetiapine Fumarate (Quetiapine Fumarate 25 Mg Tablet) 75 mg PO BID [facility] Last Admin: 08/29/24 09:26 Dose: 75 mg Senna/Docusate Sodium (Sennosides/Docusate Sodium Tablet) 2 tab PO BID [facility] Last Admin: 08/29/24 09:25 Dose: 2 tab Sodium Chloride (0.9 % Sodium Chloride Flush 3 Ml Syringe) 3 ml IVFLUSH QSHIFT [facility] Last Admin: 08/29/24 08:25 Dose: 3 ml Trazodone HCl (Trazodone Hcl 50 Mg Tablet) 50 mg PO BEDTIME MRX1 PRN PRN Reason: Insomnia Venlafaxine HCl (Venlafaxine Hcl Er 150 Mg Cap.Er.24h) 150 mg PO DAILY [facility] Last Admin: 08/29/24 09:26 Dose: 150 mg Home Medications ?Medication ?Instructions ?Recorded ?Confirmed ?Last Taken ?Type aspirin 81 mg tablet,delayed 81 mg PO DAILY 09/02/23 08/27/24 08/14/24 History release mirtazapine 15 mg tablet 15 mg PO BEDTIME 09/02/23 08/27/24 08/14/24 History fluticasone furoate 200 1 inh inhalation DAILY 08/15/24 08/27/24 08/22/24 History mcg-vilanterol 25 mcg/dose inhalation powder (Breo Ellipta) fluoxetine 20 mg capsule 60 mg PO DAILY 08/16/24 08/27/24 08/14/24 History Physical Exam Vital Signs: Vital Signs: Last Vital Signs Temp 96.9 F 08/29/24 08:12 Pulse 97 08/29/24 08:12 Resp 18 08/29/24 08:12 BP 116/68 08/29/24 08:12 Pulse Ox 94 08/29/24 08:12 O2 Del Method Nasal Cannula 08/29/24 08:12 O2 Flow Rate 2 08/29/24 08:12 BMI result Body Mass Index 47.0 EXAM: GENERAL: The patient is obese, sob VITAL SIGNS:see workflow HEENT: Nonicteric sclerae, PERRLA, EOMI. Oropharynx clear. Moist mucous membranes. Conjunctivae appear well perfused. No thyroid mass. CHEST: Chest wall is nontender. HEART: Regular rate and rhythm without murmurs. LUNGS: Clear to auscultation bilaterally with few crackles at bases ABDOMEN: Soft, positive bowel sounds, nontender, no organomegaly.no flank tenderness--no external or extruding hemorrhoid noted SKIN: No rash, no excessive bruising, petechiae, or purpura. NEUROLOGIC: Cranial nerves II-XII intact without motor/sensory deficit. Psych: normal affect Results Labs 08/29/24 05:54 08/29/24 05:54 Labs: Short CBC 08/29/24 Range/Units 05:54 WBC 12.5 H (4.8-10.8) X10*3/uL Hgb 10.4 L (14.0-18.0) g/dl Hct 34.8 L (42.0-52.0) % Plt Count 262 (160-400) X10*3/uL BMP 08/29/24 05:54 Creatinine 0.88 Microbiology Microbiology Results: Microbiology 08/27/24 16:13 Blood - Venous Blood Culture - Preliminary No growth after 24 hours. 08/27/24 16:13 Blood - Venous Blood Culture - Preliminary No growth after [address] scan - chest: Attestation: I personally reviewed and interpreted this imaging study as follows: (b/l infiltrates) Assessment and Plan (1) Rectal bleeding: Status: Acute Plan 1/ rectal bleeding, on background of constipation and methadone use, mos tlikely would be hemorrhoidal bleed - hg pretty stable and close to baseline. PLAN: 1/ can use anusol for the moment, with miralax bid and colace, can add linaclotide if needed 2/ colonoscopy but wait for pneumonia to improve, maybe just before d/c as he still has to complete psych treatment 3/ if worsens before then then can reconsider colonoscopy to a more urgent status Procedures Date of Service Date of Service: 08/29/24
--- NOTE | 2024-08-29 15:12 | MHC.SLORD ---
Speech Language Pathology Order Status: Pt refused PO trials w/ SAFETY INSTRUCTOR on this date. Pt seen for MBSS in March 2024. He was recommended 1-2 f/u outpatient visits w/ SAFETY INSTRUCTOR however no f/u happened following d/c. SAFETY INSTRUCTOR reviewed results of MBSS on this date and discussed compensatory strategies. Pt was recommended NDD3 solids and thin liquids and the following recommendations: sitting upright, small bites and sips, alternate lqiuids/solids, slow rate of ingestion, avoid specific foods. Pt expressed understanding of these recommendations. SAFETY INSTRUCTOR attempted to change diet to NDD3 recommendation; however patient reported he wouldn't eat if he didn't like the food. Pt was recommended to select softer foods and follow the compensatory strategies until seen by SAFETY INSTRUCTOR for f/u tomorrow.
--- NOTE | 2024-08-29 15:23 | HO.PM.IMPN ---
Subjective Subjective Date of Service: 08/29/24 Interval History: no further hematochezia coughing up lots of sputum Review of Systems Review of Systems: Yes all other systems are reviewed and are negative Physical Exam Vital Signs: Vital Signs: Last Vital Signs Temp 96.9 F 08/29/24 08:12 Pulse 97 08/29/24 08:12 Resp 18 08/29/24 08:12 BP 116/68 08/29/24 08:12 Pulse Ox 94 08/29/24 08:12 O2 Del Method Nasal Cannula 08/29/24 08:12 O2 Flow Rate 2 08/29/24 08:12 BMI result Body Mass Index 47.0 Objective Data Active Medications Acetaminophen (Acetaminophen 325 Mg Tablet) 650 mg PO Q6H PRN PRN Reason: Pain, Mild 1-3,fever,headache Last Admin: 08/29/24 09:35 Dose: 650 mg Documented By: BALJIT Al Hydroxide/Mg Hydroxide (Magnesium Hydrox/Alum Hydrox 30 Ml Oral.Susp) 30 ml PO Q6H PRN PRN Reason: Heartburn/Nausea Albuterol Sulfate (Albuterol Sulfate 90 Mcg 8 Gm Inhaler) 2 puff INHALE RQ4H PRN PRN Reason: Shortness of Breath Last Admin: 08/29/24 02:49 Dose: 2 puff Documented By: QASIM Lipase/Protease/Amylase (Lipase/Prot/Amylase /60k Capsule.Dr) 2 cap PO TIDWM [facility] Last Admin: 08/29/24 12:24 Dose: 2 cap Documented By: BALJIT Aspirin (Aspirin 81 Mg Tab.Chew) 81 mg PO DAILY [facility] Last Admin: 08/29/24 09:25 Dose: 81 mg Documented By: BALJIT Benzocaine (Throat Lozenge, Medicated Lozenge) 1 lozenge MUCOUS MEM Q2H PRN PRN Reason: Sore Throat Last Admin: 08/29/24 06:01 Dose: 1 lozenge Documented By: QASIM Calcium Carbonate (Calcium Carbonate 750 Mg Tab.Chew) 750 mg PO Q4H PRN PRN Reason: Heartburn Clonazepam (Clonazepam 0.5 Mg Tablet) 0.5 mg PO TID PRN PRN Reason: Anxiety Last Admin: 08/29/24 14:04 Dose: 0.5 mg Documented By: BALJIT Clonidine HCl (Clonidine Hcl 0.1 Mg Tablet) 0.1 mg PO BID PRN; Protocol PRN Reason: moderate anxiety Last Admin: 08/28/24 18:17 Dose: 0.1 mg Documented By: LOPEZ Clonidine HCl (Clonidine Hcl 0.1 Mg Tablet) 0.1 mg PO BID [facility]; Protocol Last Admin: 08/29/24 09:25 Dose: 0.1 mg Documented By: BALJIT Divalproex Sodium (Divalproex Sodium 250 Mg Tablet.) 250 mg PO BID [facility] Last Admin: 08/29/24 09:26 Dose: 250 mg Documented By: BALJIT Famotidine (Famotidine 20 Mg Tablet) 20 mg PO BEDTIME [facility] Last Admin: 08/28/24 20:36 Dose: 20 mg Documented By: JING Ferrous Sulfate (Ferrous Sulfate 324 Mg Tablet.) 324 mg PO DAILY [facility] Last Admin: 08/29/24 09:26 Dose: 324 mg Documented By: BALJIT Guanfacine HCl (Guanfacine Hcl Er 1 Mg Tab.Er.24h) 1 mg PO DAILY [facility] Last Admin: 08/29/24 09:25 Dose: 1 mg Documented By: BALJIT Hydrocortisone (Hydrocortisone 2.5 % Rectal Cr 30 Gm Tube) 1 appl MA DAILY [facility] Last Admin: 08/29/24 12:24 Dose: Not Given Documented By: BALJIT Non-Admin Reason: not available per pharmacy. order to be in to Hydroxyzine HCl (Hydroxyzine Hcl 25 Mg Tablet) 25 mg PO Q6H PRN PRN Reason: mild anxiety Cefepime HCl (Maxipime) 2 gm in 50 mls @ 100 mls/hr IV Q8H [facility] Last Infusion: 08/29/24 09:00 Dose: Infused Documented By: BALJIT Vancomycin HCl 1,000 mg/ (Sodium Chloride) 270 mls @ 270 mls/hr IV Q8H [facility] Last Infusion: 08/29/24 14:02 Dose: Infused Documented By: BALJIT Lactulose (Lactulose 20 Gm/30 Ml Solution) 20 gm PO DAILY PRN PRN Reason: Constipation Magnesium Hydroxide (Milk Of Magnesia 30 Ml Oral.Susp) 30 ml PO DAILY PRN PRN Reason: Constipation Magnesium Hydroxide (Milk Of Magnesia 30 Ml Oral.Susp) 30 ml PO DAILY PRN PRN Reason: Constipation Magnesium Oxide (Magnesium Oxide 400 Mg Tablet) 400 mg PO BEDTIME [facility] Last Admin: 08/28/24 20:36 Dose: 400 mg Documented By: JING Melatonin (Melatonin 3 Mg Tablet) 6 mg PO BEDTIME PRN PRN Reason: Insomnia Methadone HCl (Methadone Hcl 20 Mg/2 Ml Oral.Conc) 25 mg PO DAILY@1700 [facility] Last Admin: 08/28/24 18:01 Dose: 25 mg Documented By: LOPEZ Co-signed By: VICK Methadone HCl (Methadone Hcl 20 Mg/2 Ml Oral.Conc) 100 mg PO DAILY@0800 [facility] Last Admin: 08/29/24 08:07 Dose: 100 mg Documented By: BALJIT Co-signed By: VIET Multivitamins/Vitamin C (Multivitamin Tablet) 1 tab PO DAILY [facility] Last Admin: 08/29/24 09:26 Dose: 1 tab Documented By: BALJIT Nicotine (Nicotine 21 Mg Patch.Td24) 21 mg TRANSDERMA DAILY PRN PRN Reason: smoking cessation Nicotine Polacrilex (Nicotine Polacrilex 2 Mg Gum) 4 mg BUCCAL Q2H PRN PRN Reason: Nicotine Cravings Nortriptyline HCl (Nortriptyline Hcl 25 Mg Capsule) 25 mg PO BEDTIME [facility] Last Admin: 08/28/24 20:36 Dose: 25 mg Documented By: JING Olanzapine (Olanzapine 5 Mg Tablet) 5 mg PO TID PRN PRN Reason: agitation Last Admin: 08/29/24 09:35 Dose: 5 mg Documented By: BALJIT Omeprazole (Omeprazole 20 Mg Capsule.) 20 mg PO DAILY@0630 [facility] Last Admin: 08/29/24 05:58 Dose: 20 mg Documented By: QASIM Pharmacy Consult (Consult Rx Vancomycin Dosing) 1 each MISCELLANE DAILY PRN PRN Reason: Consult order Polyethylene Glycol (Polyethylene Glycol 3350 17 Gm Powd.Pack) 17 gm PO DAILY [facility] Last Admin: 08/29/24 08:11 Dose: 17 gm Documented By: BALJIT Quetiapine Fumarate (Quetiapine Fumarate 25 Mg Tablet) 75 mg PO BID [facility] Last Admin: 08/29/24 09:26 Dose: 75 mg Documented By: BALJIT Senna/Docusate Sodium (Sennosides/Docusate Sodium Tablet) 2 tab PO BID [facility] Last Admin: 08/29/24 09:25 Dose: 2 tab Documented By: BALJIT Sodium Chloride (0.9 % Sodium Chloride Flush 3 Ml Syringe) 3 ml IVFLUSH QSHIFT [facility] Last Admin: 08/29/24 08:25 Dose: 3 ml Documented By: BALJIT Trazodone HCl (Trazodone Hcl 50 Mg Tablet) 50 mg PO BEDTIME MRX1 PRN PRN Reason: Insomnia Venlafaxine HCl (Venlafaxine Hcl Er 150 Mg Cap.Er.24h) 150 mg PO DAILY [facility] Last Admin: 08/29/24 09:26 Dose: 150 mg Documented By: BALJIT Labs 08/29/24 05:54 08/29/24 05:54 Labs: Laboratory Results - last 24 hr 08/28/24 08/28/24 08/29/24 14:12 15:13 05:54 MCV 81.5 MCH 24.4 L MCHC 29.9 L RDW 16.7 H Plt Count 262 MPV 9.2 L Absolute Nucleated RBC 0.000 Nucleated RBC % (auto) 0.0 ESR 28 H Estim Creat Clear Calc 152.9 Estimated GFR > 60 Procalcitonin 0.03 Random Vancomycin 20.5 H Microbiology Microbiology Results: Microbiology 08/27/24 16:13 Blood Culture - Preliminary Blood - Venous No growth after 24 hours. 08/27/24 16:13 Blood Culture - Preliminary Blood - Venous No growth after 24 hours. Assessment and Plan (1) Multifocal pneumonia: Status: Acute Plan day 3 of 2nd hospitalist service course for this 39-year-old male with polysubstance use disorder on methadone, and bipolar disorder who initially presented to the hospital on 08/16/2024 suicide ideation and auditory and visual hallucinations. Admitted to hospitalist service the 1st time for PNA on 08/16/24 then discharged to in psychiatry 08/22. Rapid response called 08/27/24 for lightheadedness, dizziness, and weakness with standing. Pt will be brought back to the hospitalist service evaluation of lightheadedness and dizziness possibly in the setting of hematochezia. acute hypoxic respiratory failure and sepsis due to multifocal PNA - pt initially treated for bilateral lower lobe pneumonia from 08/16-08/22, discharged to psychiatry on cefuroxime and doxycycline, set to end 08/28/2024 - now on vanco + cefepime 08/27-, trend PCT, follow BCx - Pulm consulted, likely to transition to SMX/TMP + cefpodoxime upon discharge, plan to copmlete 14d course - supplemental O2, wean as tolerated chronic hypoxic resp failure due to hypoventilation - nocturnal O2 1L as recomended previously by outpt Pulm recurrent hematochezia - likely hemorrhoidal, H+H stable, GI consult given recurrence though; plan colonoscopy but waiting until pneumonia improved; can be done while on Psychiatry lightheadedness/dizziness - reports ?attacks? of lightheadedness, dizziness, diaphoresis, tachycardia for the past few years, often associated with BM, alleviated only by diazepam - possibly vasovagal but per Pulm ruling out carcinoid with chromogranin A moderate persistent asthma not in acute exacerbation - continue Breo, prn albuterol polysubstance use disorder - continue methadone bipolar disorder - continue guanfacine, divalproex, nortriptylline, quetiapine, clonidine, venlafaxine, clonazepam, hydroxyzine, trazodone, olanzapine per Psychiatry VTE ppx - SCDs dispo - eventual return to [facility] In my clinical judgment, the patient requires continued inpatient hospitalization for the following reasons: IV ABX, hematochezia eval Total time managing care of this patient today: 40 minutes. Quality Stroke Does the patient have a stroke diagnosis?: No VTE Prior VTE?: No VTE Risk Level:: Medical - moderate - high VTE Device Contraindication: N/A - Device Ordered VTE Drug Contraindication: Treatment Not Indicated
[2024-08-29 15:52] VITALS: BP 132/91; PULSE 70; RESP 18; TEMP 36.4; O2SAT 93
[2024-08-29] MEDS: methADONE HCl 20 MG/2 ML ORAL.CONC 25 MG PO (17:22)
[2024-08-29 18:46] LABS: Vancomycin Random 19.2 mcg/mL (15-20)
[2024-08-29] MEDS: Magnesium Oxide 400 MG TABLET PO (19:52)
[2024-08-29] MEDS: Famotidine 20 MG TABLET PO (19:52)
[2024-08-29] MEDS: Nortriptyline HCl 25 MG CAPSULE PO (19:52)
[2024-08-29 19:54] VITALS: BP 134/79; PULSE 85; RESP 19; TEMP 36.3; O2SAT 93
[2024-08-29] MEDS: traZODone HCL 50 MG TABLET PO (19:54)
[2024-08-30] VITALS (8 sets, daily range): BP systolic 110–137; BP diastolic 53–84; PULSE 86–118; RESP 14–18; TEMP 36.3–36.7; O2SAT 87–94
[2024-08-30] MEDS: vancomycin HCL 1,000 MG in 0.9 % Sodium Chloride 250 ML 270 MG IV ×2 (03:06→12:14)
[2024-08-30] MEDS: Acetaminophen 325 MG TABLET 650 MG PO (03:09)
[2024-08-30] MEDS: Omeprazole 20 MG CAPSULE.DR PO (05:45)
[2024-08-30 05:59] LABS: Immunoglobulin E 3204 kU/L (<OR=114)
[2024-08-30] MEDS: clonazePAM 0.5 MG TABLET PO ×2 (06:11→14:01)
[2024-08-30 06:58] LABS: Creatinine Clr Calc Pharmacy 162.1; Estimated Glomerular Filt Rate > 60
[2024-08-30] MEDS: Multivitamin TABLET 1 TAB PO (08:06)
[2024-08-30] MEDS: Sennosides/Docusate Sodium TABLET 2 TAB PO ×2 (08:06→20:04)
[2024-08-30] MEDS: Lipase/Prot/Amylase 12/38/60K CAPSULE.DR 2 CAP PO ×3 (08:06→16:26)
[2024-08-30] MEDS: polyethylene glycoL 3350 17 GM POWD.PACK PO (08:06)
[2024-08-30] MEDS: Ferrous Sulfate 324 MG TABLET.DR PO (08:06)
[2024-08-30] MEDS: cloNIDine HCL 0.1 MG TABLET PO (08:07)
[2024-08-30] MEDS: QUEtiapine Fumarate 25 MG TABLET 75 MG PO (08:07)
[2024-08-30] MEDS: cefEPime HCl/D5W 2 GM/50 ML PIGGYBACK IV ×2 (08:07→15:51)
[2024-08-30] MEDS: Divalproex Sodium 250 MG TABLET.DR PO (08:07)
[2024-08-30] MEDS: Venlafaxine HCl ER 150 MG CAP.ER.24H PO (08:07)
[2024-08-30] MEDS: guanFACINE HCl ER 1 MG TAB.ER.24H PO (08:07)
[2024-08-30] MEDS: methADONE HCl 20 MG/2 ML ORAL.CONC 100 MG PO (08:07)
[2024-08-30] MEDS: Aspirin 81 MG TAB.CHEW PO (08:07)
[2024-08-30] MEDS: 0.9 % Sodium Chloride Flush 3 ML SYRINGE IVFLUSH ×2 (08:14→15:53)
[2024-08-30 08:55] LABS: Hematocrit 34.5 % (42.0-52.0); Hemoglobin 10.6 g/dl (14.0-18.0); Mean Corpuscular HGB Conc 30.7 g/dl (31.0-36.0); Mean Corpuscular Hemoglobin 24.9 pg (27.0-33.0); Mean Platelet Volume 8.8 fL (9.4-12.4); Platelet Count 259 X10*3/uL (160-400); Red Blood Count 4.26 X10*6/uL (4.60-5.80); Red Cell Distribution Width 16.5 % (11.0-16.0); White Blood Count 13.1 X10*3/uL (4.8-10.8)
[2024-08-30 11:39] LABS: Immunoglobulin G Subclass 1 616 mg/dL (382-929); Immunoglobulin G Subclass 2 262 mg/dL (241-700); Immunoglobulin G Subclass 3 31 mg/dL (22-178); Immunoglobulin G Subclass 4 85.1 mg/dL (4-86); Immunoglobulin G Total 1039 mg/dL (600-1640)
--- NOTE | 2024-08-30 11:41 | MHC.CM.PN ---
PER MD ROUNDS, PT IS MEDICALLY CLEARED TO RETURN TO M5 UNIT. CM CONTINUING TO FOLLOW.
--- NOTE | 2024-08-30 14:01 | MHC.SL.SWA ---
Speech Pathologist Impression: Mild to moderate dysphagia Risk of Aspiration Due to: Weakness/deconditioning Hx of aspiration PNA Dysphasia Diet Status:Pt tolerating regular diet with thin liquids, reporting he's no longer experiencing dysphagia. Pt endorsed changes to his voice, that he attributes to breathing difficulties. 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 Pt tried to use apnea machine but noted it didn't work. [employer] provided education on recc diet, safety and pharyngeal strengthening exercises. Pt in agreement. GI consult completed yesterday, pt has colonoscopy pending. Liquid Consistency and Strategies for Safe Swallow: Liquid Intake Recommendation: Thin Liquid Intake Strategies: Solid Food Consistency: Dietary Recommendations: Regular Additional Modifications to Solid Foods: Small, individual sips Oral Medication Intake: Whole with Liquid Please contact the pharmacy regarding appropriate crushable or liquid drug formulations that are available whenever modified delivery is recommended. Compensatory Strategies and Precautions to be Taken for Safe Swallow: Supervision While Eating and Drinking for Safe Swallow: Intermittent Supervision Foods to Avoid: Tough/hard to chew solids Swallowing Recommended Treatments: Recommendation for Speech: Comment: Frequency/Duration: Date Range for Service Req: Timeline to reassess: Radar Mechanic Clinican/Clinical Fellow: No Supervisory Statement: I have reviewed and agree with the student/clinical fellow's documentation: N/A Speech Language Pathologist: Jyoti Gaitan M.S., [facility]
[2024-08-30] MEDS: methADONE HCl 20 MG/2 ML ORAL.CONC 25 MG PO (16:26)
--- NOTE | 2024-08-30 17:30 | PM.DS ---
DS: Providers Provider Date of Service: 08/30/24 Date of admission: 08/27/24 09:03 Date of discharge: 08/30/24 Primary care physician: [facility] Consults: 08/27/24 17:24 Consult to Pulmonology Routine Consulting Provider: [facility] Reason for consultation: Worsening multifocal pneumonia, ?abx suggestions 08/27/24 18:00 Consult to Psychiatry Routine Consulting Provider: [facility] Psych Covering Reason for consultation: Pt transferred from 08/29/24 07:50 Consult to Gastroenterology Routine Consulting Provider: [facility] Reason for consultation: repeated hematochezia, H+H stable 08/30/24 08:24 Inpt CARE Team Crisis Consult Routine Comment: Reason for consultation: return to , medically cleared DS: Diagnosis Discharge Diagnosis (1) Rectal bleeding: Status: Acute (2) Pneumonia: Status: Acute (3) Acute respiratory failure with hypoxia: Status: Acute DS: Summary Hospital Course Hospital Course: From the history and physical by the admitting hospitalist, TERRIE Irving, 08/27/24: Pt is a 39-year-old male with a PMH significant for asthma, polysubstance use disorder on methadone, and bipolar disorder who initially presented to the hospital on 08/16/2024 suicide ideation and auditory and visual hallucinations. While awaiting inpatient psychiatric bed search pt was found to be hypoxic at 88% and CT of chest showed bilateral lower lobe pneumonia. Initially treated with ceftriaxone and doxycycline and then vancomycin added due to positive MRSA swab. Blood cultures negative was discharged to Psychiatric unit on cefuroxime and doxycycline for 5 more days, set to end on 08/28/2024. Rapid response was called for pt who was experiencing lightheadedness, dizziness, and weakness with standing. States last night when he went to the bathroom he noticed both bright red blood and dark colored stools with possible clots. Pt felt weak and became anxious, worrying about possible bleeding. Last night also experienced nonproductive cough while lying down that kept him up for most of the night, but denies SOB or difficulty breathing. Pt was noted to be tachycardic in the 110s and oxygen saturation low normal at 92%. BP 140/80, and pCO2 153. EKG showing normal sinus rhythm without evidence of significant ischemia. CXR yesterday negative for acute cardiopulmonary process. Will order CBC, CMP, D-dimer, TSH, troponin, BNP, and PT/PTT. Pt will be brought to the hospital floor under observation for treatment and further evaluation of lightheadedness and dizziness possibly in the setting of hematochezia... ...Addendum: D-dimer was elevated at 592 and so CTA of chest was obtained. Initially suspicion for active infection was low as pt was not complaining of SOB or difficulty breathing, CXR from yesterday was negative for acute process, and pt had recently been treated for pneumonia on the medical floor and still taking p.o. antibiotics: cefuroxime and doxycycline which were set to end tomorrow. CTA, however, showed worsening multifocal pneumonia, especially in the right upper lobe. At this time, 15:26, pt met sepsis criteria, and lactic acid and blood cultures were obtained and pt was started on broad-spectrum IV antibiotics. Clinically pt looks stable and continues to deny SOB or difficulty breathing. Will obtain pulmonology consult for additional advice on antibiotic treatment. 39-year-old male with polysubstance use disorder on methadone, and bipolar disorder who initially presented to the hospital on 08/16/2024 suicide ideation and auditory and visual hallucinations. Admitted to hospitalist service the 1st time for PNA on 08/16/24 then discharged to in psychiatry 08/22. Rapid response called 08/27/24 for lightheadedness, dizziness, and weakness with standing. Pt brought back to the hospitalist service evaluation of lightheadedness and dizziness possibly in the setting of hematochezia. Hospital course by problem: acute hypoxic respiratory failure and sepsis due to multifocal PNA - pt initially treated for bilateral lower lobe pneumonia from 08/16-08/22, discharged to psychiatry on cefuroxime and doxycycline, set to end 08/28/2024 - this time treated with vancomycin + cefepime 08/27-08/30; BCx negative and procalcitonin low - Pulmonology consulted, transitioned to SMX/TMP + cefpodoxime upon discharge, plan to complete another 11 days of these 2 antibiotics for a total of 14 days of antibiotics - weaned of O2 at rest but to continue nocturnal and naptime O2 1L for chronic hypoxic respiratory failure due to hypoventilation; also for now requires 1L with ambulation but RT should repeat formal home oxygen evaluation prior to discharge home recurrent hematochezia - likely hemorrhoidal, H+H stable, GI consult given recurrence though; colonoscopy can be done next week while on Psychiatry; contact Dr Rodas to arrange prior to discharge lightheadedness/dizziness - reports ?attacks? of lightheadedness, dizziness, diaphoresis, tachycardia for the past few years, often associated with BM, alleviated only by diazepam - possibly vasovagal but per Pulmonology ruling out carcinoid with chromogranin A; results pending at the time of transfer and should follow up with [facility] Pul[facility] bipolar disorder - returned to inpatient psychiatry unit for ongoing care; no changes were made to his psychiatric medication regimen while on the hospitalist service Time Attestation Discharge Coordination Time (in mins): 45 Quality: Safe Use of Opioids Does Pt have an Active Cancer Diagnosis on the Problem List?: No Quality: Stroke Does the patient have a stroke diagnosis?: No Physical Exam Vital Signs: Vital Signs: Last Vital Signs Temp 97.3 F 08/30/24 14:56 Pulse 92 08/30/24 14:56 Resp 14 08/30/24 14:56 BP 110/53 L 08/30/24 14:56 Pulse Ox 93 08/30/24 17:29 O2 Del Method Room Air 08/30/24 17:29 O2 Flow Rate 2 08/30/24 07:01 BMI result Body Mass Index 47.0 Gen: in no acute distress HEENT: sclera anicteric, moist mucus membranes Neck: supple Lungs: clear bilaterally Heart: regular rate and rhythm, no murmurs Abd: soft, non-tender, non-distended, obese Ext: no edema Skin: warm/well-perfused Neuro: alert and oriented x3, no focal findings Psych: anxious DS: Data Data Completed and Pending Completed studies during hospitalization [Text1]: Laboratory Results WBC 13.1 X10*3/uL (4.8-10.8) H 08/30/24 08:32 RBC 4.26 X10*6/uL (4.60-5.80) L 08/30/24 08:32 Hgb 10.6 g/dl (14.0-18.0) L 08/30/24 08:32 Hct 34.5 % (42.0-52.0) L 08/30/24 08:32 MCV 81.0 fL (80.0-98.0) 08/30/24 08: MCH 24.9 pg (27.0-33.0) L 08/30/24 08: MCHC 30.7 g/dl (31.0-36.0) L 08/30/24 08: RDW 16.5 % (11.0-16.0) H 08/30/24 08:32 Plt Count 259 X10*3/uL (160-400) 08/30/24 08:32 MPV 8.8 fL (9.4-12.4) L 08/30/24 08:32 Immature Gran % (Auto) 0.6 % (0.0-0.4) H 08/27/24 10:05 Neut % (Auto) 86.3 % (45-73) H 08/27/24 10:05 Lymph % (Auto) 5.6 % (20-40) L 08/27/24 10:05 [place] % (Auto) 5.8 % (2-11) 08/27/24 10:05 Eos % (Auto) 1.4 % (0-4) 08/27/24 10:05 Baso % (Auto) 0.3 % (0-2) 08/27/24 10:05 Lymph # (Auto) 1.0 X10*3/uL (1.2-4.9) L 08/27/24 10:05 [place] # (Auto) 1.1 X10*3/uL (0.1-1.2) 08/27/24 10:05 Eos # (Auto) 0.3 X10*3/uL (0.0-0.4) 08/27/24 10:05 Baso # (Auto) 0.1 X10*3/uL (0.0-0.2) 08/27/24 10:05 Abs Immat Gran (auto) 0.11 X10*3/uL (0.00-0.03) H 08/27/24 10:05 Absolute Neuts (auto) 15.6 x10*3/uL (2.0-8.3) H 08/27/24 10:05 Absolute Nucleated RBC 0.000 X10*3/uL (0.0-0.012) 08/30/24 08:32 Nucleated RBC % (auto) 0.0 /100WBC (0.0-0.2) 08/30/24 08:32 ESR 28 MM/HR (0-15) H 08/28/24 15:13 Hold Purple Top SEE NOTE 08/28/24 15:13 PT 11.9 SEC (10.9-12.4) 08/27/24 10:05 INR 1.0 (0.9-1.1) 08/27/24 10:05 APTT 33.0 SEC (26.0-36.8) 08/27/24 10:05 D-Dimer High Sensitivty 592 NG/ML 08/27/24 10:05 Sodium 137 mmol/L (135-145) 08/28/24 06:58 Potassium 3.9 mmol/L (3.3-5.1) 08/28/24 06:58 Chloride 101 mmol/L (96-108) 08/28/24 06:58 Carbon Dioxide 27 mmol/L (22-29) 08/28/24 06:58 Anion Gap 13 (12-20) 08/28/24 06:58 BUN 12 mg/dL (9-16) 08/28/24 06:58 Creatinine 0.83 mg/dL (0.5-1.4) 08/30/24 06:06 Estim Creat Clear Calc 162.1 08/30/24 06:06 Estimated GFR > 60 08/30/24 06:06 POC Glucose 118 mg/dL (60-115) H 08/27/24 20:03 Random Glucose 150 mg/dL (60-115) H 08/28/24 06:58 Lactic Acid 1.0 mmol/L (0.5-2.0) 08/27/24 15:48 Calcium 8.4 mg/dL (8.4-10.2) 08/28/24 06:58 Magnesium 1.9 mg/dL (1.6-2.6) 08/27/24 10:05 Iron 24 mcg/dL (45-160) L 08/27/24 10:05 TIBC 275 mcg/dL (228-428) 08/27/24 10:05 % Saturation 9 % (15-50) L 08/27/24 10:05 Unsat Iron Binding 251 ug/dL 08/27/24 10:05 Total Bilirubin 0.5 mg/dL (0.0-1.0) 08/27/24 10:05 AST 19 U/L (5-37) 08/27/24 10:05 ALT 24 U/L (0-40) 08/27/24 10:05 Alkaline Phosphatase 105 U/L (39-117) 08/27/24 10:05 Troponin I High Sens < 2.7 ng/L (<3.5-35.0) 08/27/24 10:05 B-Natriuretic Peptide < 10 pg/mL (<100) 08/27/24 10:05 Total Protein 7.3 g/dL (6.5-8.0) 08/27/24 10:05 Albumin 3.8 g/dL (3.5-5.0) 08/27/24 10:05 Procalcitonin 0.03 ng/mL 08/29/24 05:54 TSH 0.46 uIU/mL (0.32-4.0) 08/27/24 10:05 Urine Color Yellow 08/27/24 15:04 Urine Appearance Clear 08/27/24 15:04 Urine pH 7.5 (5.0-9.0) 08/27/24 15:04 Ur Specific Mason 1.020 (1.005-1.025) 08/27/24 15:04 Urine Protein Negative mg/dL (Neg-Trace) 08/27/24 15:04 Urine Glucose (UA) Negative mg/dL (Negative) 08/27/24 15:04 Urine Ketones Negative mg/dL (Negative) 08/27/24 15:04 Urine Blood Negative (Negative) 08/27/24 15:04 Urine Nitrite Negative (Negative) 08/27/24 15:04 Ur Leukocyte Esterase Negative (Negative) 08/27/24 15:04 Random Vancomycin 19.2 mcg/mL (15-20) 08/29/24 18:17 IgG Total 1039 mg/dL (600-1640) 08/28/24 15:13 IgG Subclass 1 616 mg/dL (382-929) 08/28/24 15:13 IgG Subclass 2 262 mg/dL (241-700) 08/28/24 15:13 IgG Subclass 3 31 mg/dL (22-178) 08/28/24 15:13 IgG Subclass 4 85.1 mg/dL (4-86) 08/28/24 15:13 IgE 3204 kU/L (<NK=335) H 08/28/24 15:13 Respiratory Panel Handy See Note 08/27/24 11:59 Adenovirus (Rapid PCR) Not Detected (Not Detect.) 08/27/24 11:59 B.pert (TEM-PCR) Not Detected (Not Detect.) 08/27/24 11:59 B.parapertussis DNA PCR Not Detected (Not Detect.) 08/27/24 11:59 C. pneumoniae DNA (PCR) Not Detected (Not Detect.) 08/27/24 11:59 Coronavirus OC43 (PCR) Not Detected (Not Detect.) 08/27/24 11:59 Coronavirus HKU1 (PCR) Not Detected (Not Detect.) 08/27/24 11:59 Coronavirus 229E (PCR) Not Detected (Not Detect.) 08/27/24 11:59 Coronavirus NL63 (PCR) Not Detected (Not Detect.) 08/27/24 11:59 HIV 1&2 Ab/P24 Ag 4thGn Nonreactive (Nonreactive) 08/28/24 15:13 Human Metapneumovir PCR Not Detected (Not Detect.) 08/27/24 11:59 Influenza A (RT-PCR) Not Detected (Not Detect.) 08/27/24 11:59 Influenza A (H1) PCR Not Detected (Not Detect.) 08/27/24 11:59 Influ A (H1/09) PCR Not Detected (Not Detect.) 08/27/24 11:59 Influenza A (H3) PCR Not Detected (Not Detect.) 08/27/24 11:59 Influenza B (RT-PCR) Not Detected (Not Detect.) 08/27/24 11:59 M. pneumoniae (PCR) Not Detected (Not Detect.) 08/27/24 11:59 Parainfluenza 1 (PCR) Not Detected (Not Detect.) 08/27/24 11:59 Parainfluenza 2 (PCR) Not Detected (Not Detect.) 08/27/24 11:59 Parainfluenza 3 (PCR) Not Detected (Not Detect.) 08/27/24 11:59 Parainfluenza 4 (PCR) Not Detected (Not Detect.) 08/27/24 11:59 RSV (PCR) Not Detected (Not Detect.) 08/27/24 11:59 Entero/Rhino (PCR) Not Detected (Not Detect.) 08/27/24 11:59 SARS-CoV-2 RNA (RT-PCR) Not Detected (Not Detect.) 08/27/24 11:59 Discharge Plan Discharge Patient Disposition: Xfer Psychiatric Hosp Discharge Diagnosis: pneumonia minor rectal bleeding bipolar disorder Referrals: [facility] [Primary Care Provider] - 1 Week Samantha Davis NP [Nurse Practitioner] - 2 Weeks Discharge Medications: New polyethylene glycol 3350 17 gram Powder In Packet 17 g PO BID Qty: 1 0RF cefpodoxime 200 mg tablet 200 mg PO BID Qty: 22 0RF Rx Instructions: must administer with a meal/food sulfamethoxazole-trimethoprim 800-160 mg tablet 1 tab PO BID Qty: 22 0RF Continued fluticasone furoate-vilanterol [Breo Ellipta] 200-25 mcg/dose Blister With Device 1 inh INHALATION DAILY fluoxetine 20 mg capsule 60 mg PO DAILY multivitamin [Daily-Rip] Tablet 1 tab PO DAILY Qty: 0 0RF quetiapine 25 mg Tablet 75 mg PO BID Qty: 0 0RF clonidine HCl 0.1 mg Tablet 0.1 mg PO BID Qty: 0 0RF Protocol: Hold for SBP< HOLD for SBP < : 90 clonidine HCl 0.1 mg Tablet 0.1 mg PO BID PRN (Reason: moderate anxiety) Qty: 0 0RF Protocol: Hold for SBP< HOLD for SBP < : 90 acetaminophen 325 mg Tablet 650 mg PO Q6H PRN (Reason: Headache/Pain, Scale 1-10) Qty: 0 0RF divalproex 250 mg Tablet,Delayed Release (Dr/Ec) 250 mg PO BID Qty: 0 0RF trazodone 50 mg Tablet 50 mg PO BEDTIME MRX1 PRN (Reason: Insomnia) Qty: 0 0RF nicotine (polacrilex) 2 mg Gum 4 mg buccal Q2H PRN (Reason: Nicotine Cravings) Qty: 0 0RF clonazepam 0.5 mg Tablet 0.5 mg PO TID PRN (Reason: Anxiety) Qty: 0 0RF sennosides-docusate sodium [Senna Plus] 8.6-50 mg Tablet 2 tab PO BID Qty: 0 0RF olanzapine 5 mg Tablet 5 mg PO TID PRN (Reason: agitation) Qty: 0 0RF venlafaxine 150 mg Capsule,Extended Release 24hr 150 mg PO DAILY Qty: 0 0RF nortriptyline 25 mg Capsule 25 mg PO BEDTIME Qty: 0 0RF hydrocortisone [Proctozone-HC] 2.5 % Cream With Perineal Applicator 1 appl AR DAILY Qty: 0 0RF famotidine 20 mg Tablet 20 mg PO BEDTIME Qty: 0 0RF magnesium oxide 400 mg (241.3 mg magnesium) Tablet 400 mg PO BEDTIME Qty: 0 0RF magnesium hydroxide [Milk of Magnesia] 400 mg/5 mL Suspension 30 ml PO DAILY PRN (Reason: Constipation) Qty: 0 0RF nicotine 21 mg/24 hr Patch 24 Hour 21 mg transdermal DAILY PRN (Reason: smoking cessation) Qty: 0 0RF hydroxyzine HCl 25 mg Tablet 25 mg PO Q6H PRN (Reason: mild anxiety) Qty: 0 0RF methadone [Methadose] 10 mg/mL Concentrate 25 mg PO DAILY@1700 Qty: 0 0RF Rx Instructions: Partial Fill upon patient request. methadone [Methadose] 10 mg/mL Concentrate 100 mg PO DAILY@0800 Qty: 0 0RF Rx Instructions: Partial Fill upon patient request. albuterol sulfate [Ventolin HFA] 90 mcg/actuation Hfa Aerosol Inhaler 2 puff inhalation RQ4H PRN (Reason: Shortness Of Breath) Qty: 0 0RF MAG-AL 200-200 mg/5 mL Suspension 30 ml PO Q6H PRN (Reason: Heartburn/Nausea) Qty: 0 0RF lactulose 10 gram/15 mL Solution 20 g PO DAILY PRN (Reason: Constipation) Qty: 0 0RF ferrous sulfate 324 mg (65 mg iron) Tablet,Delayed Release (Dr/Ec) 324 mg PO DAILY Qty: 0 0RF Creon 12,000-38,000 -60,000 unit Capsule,Delayed Release(Dr/Ec) 2 cap PO TIDWM Qty: 0 0RF guanfacine 1 mg Tablet Extended Release 24 Hr 1 mg PO DAILY Qty: 0 0RF aspirin 81 mg tablet,delayed release (DR/EC) 81 mg PO DAILY mirtazapine 15 mg tablet 15 mg PO BEDTIME esomeprazole magnesium [Nexium] 40 mg capsule,delayed release(DR/EC) 40 mg PO DAILY Qty: 30 5RF Discontinued polyethylene glycol 3350 17 gram Powder In Packet 17 g PO DAILY Qty: 0 0RF doxycycline monohydrate 100 mg Capsule 100 mg PO BID@0700,1900 Qty: 0 0RF cefuroxime axetil 500 mg Tablet 500 mg PO BID Qty: 0 0RF Discharge Orders: Discharge Order (Routine); Ordered 08/30/24 Ordered By: Sarath Huffman Diet: Low salt diet Activity on Discharge: As tolerated Stand Alone Forms: Patient Portal Discharge page Print Language: Polish Care Plan Goals: recovery from pneumonia psychiatric stabilization Health Concerns: pneumonia minor rectal bleeding bipolar disorder Plan of Treatment: return to inpatient psychiatry unit for ongoing care - for antibiotics, stop cefuroxime and doxycycline. Instead, take sulfamethoxazole-trimethoprim 800-160 mg once tab twice daily PLUS cefpodoxime 200 mg once tab twice daily, total 11 days for both antibiotics - use oxygen 1 liter with ambulation and at night/for naps; no oxygen needed at rest when awake. Do formal home oxygen evaluation before discharge home. - for constipation, increase Miralax to 1 packet twice daily - to consider colonoscopy by Dr Rodas from [facility] before discharge home - no changes were made to your other psychiatric medications; changes deferred to the inpatient psychiatry time Assessment: See Discharge Summary.
[2024-08-30] MEDS: Ondansetron ODT 4 MG TAB.RAPDIS TRANSLINGU (18:06)
[2024-08-30] MEDS: OLANZapine 5 MG TABLET PO (20:01)
[2024-08-30] MEDS: Famotidine 20 MG TABLET PO (20:04)
[2024-08-30] MEDS: Throat Lozenge, Medicated LOZENGE 1 LOZENGE MUCOUS MEM (20:59)
[2024-08-30 21:32] LABS: Myeloperoxidase Antibody <1.0 AI; Proteinase 3 PR3 Antibodies <1.0 AI
[2024-09-01 12:04] LABS: Anti Nuclear Antibody Screen NEGATIVE (NEGATIVE)
[2024-09-03 16:23] LABS: Asperg fumigatus Precip Abs NEGATIVE (NEGATIVE); Micropoly faeni Abs NEGATIVE (NEGATIVE); Pigeon serum Abs NEGATIVE (NEGATIVE); Saccharo pora viridis Abs NEGATIVE (NEGATIVE); Thermo candidus Abs NEGATIVE (NEGATIVE); Thermoa vulgaris #1 NEGATIVE (NEGATIVE)
[2024-09-06 15:34] LABS: Chromogranin A 200 ng/mL (ADULTS: <311)
== END 2024-08-30 21:32 | DRG 720 ==
LOC: HO.IMC 08-28 08:57 → HO.S3 08-28 20:09
PROVIDERS: Hospitalist; Student in an Organized Health Care Education/Training Program; Admitting Provider Internal Medicine; Visit Provider Family Medicine
DX: A41.9 Sepsis, unspecified organism (principal); J96.21 Acute and chronic respiratory failure with hypoxia; J18.9 Pneumonia, unspecified organism; F11.20 Opioid dependence, uncomplicated; K64.9 Unspecified hemorrhoids; F19.90 Other psychoactive substance use, unspecified, uncomplicated; F31.9 Bipolar disorder, unspecified; E66.813 Obesity, class 3; K59.00 Constipation, unspecified; J45.40 Moderate persistent asthma, uncomplicated; Z71.3 Dietary counseling and surveillance; Z68.42 Body mass index [BMI] 45.0-49.9, adult; Z20.822 Contact with and (suspected) exposure to COVID-19; Z79.51 Long term (current) use of inhaled steroids; Z87.891 Personal history of nicotine dependence; Z79.82 Long term (current) use of aspirin; Z79.899 Other long term (current) drug therapy
CPT/HCPCS: 36415; 71275; 80048; 80053; 80202; 81003; 82565; 82784; 82785; 82947; 83540; 83605; 83735; 83880; 84145; 84443; 84484; 85025; 85027; 85379; 85610; 85652; 85730; 86021; 86038; 86316; 86331; 86606; 86609; 87040; 87070; 87205; 87389; 87633; 92610; J0692; J3370; J3371; J7120; Q9967; S9485

== ENCOUNTER → 2024-08-27 09:03 | Outpatient (BNV) | payer MEDICAID, SELFPAY | PROVIDERS: Admitting Provider Internal Medicine; Visit Provider Hospitalist | DX: J18.9 Pneumonia, unspecified organism (principal); J45.41 Moderate persistent asthma with (acute) exacerbation; J98.4 Other disorders of lung | CPT/HCPCS: 99223 ==

== ENCOUNTER → 2024-08-27 09:03 | Outpatient (BNV) | payer MEDICAID, SELFPAY | PROVIDERS: Admitting Provider Internal Medicine; Visit Provider Student in an Organized Health Care Education/Training Program | DX: J18.9 Pneumonia, unspecified organism (principal) | CPT/HCPCS: 99223; 99232; 99233 ==

== ENCOUNTER → 2024-08-27 09:03 | Outpatient (BNV) | payer MEDICAID, SELFPAY | PROVIDERS: Admitting Provider Internal Medicine; Visit Provider Internal Medicine Gastroenterology | DX: K62.5 Hemorrhage of anus and rectum (principal) | CPT/HCPCS: 99223 ==

== ENCOUNTER 2024-08-30 21:43 | Inpatient (IN) | payer OTHER, SELFPAY ==
[2024-08-30 21:45] VITALS: BP 141/73; PULSE 98; RESP 15; TEMP 36.6; O2SAT 93
[2024-08-30 23:26] VITALS: BMI 47.7
[2024-08-30] MEDS: QUEtiapine Fumarate 25 MG TABLET 75 MG PO (23:39)
[2024-08-30 23:40] VITALS: BP 141/73
[2024-08-30] MEDS: Nortriptyline HCl 25 MG CAPSULE PO (23:40)
[2024-08-30] MEDS: OLANZapine 5 MG TABLET PO (23:40)
[2024-08-30] MEDS: Divalproex Sodium 250 MG TABLET.DR PO (23:40)
[2024-08-30] MEDS: cloNIDine HCL 0.1 MG TABLET PO (23:40)
[2024-08-30] MEDS: clonazePAM 0.5 MG TABLET PO (23:40)
--- NOTE | 2024-08-31 03:40 | PC.ADMIT ---
Pt was admitted from [place] [address] unit with CV status. He arrived to our unit on 08/30/24 at 21:45. Pt was admitted to from 08/22/24 - 08/27/24, on 08/27/24 he was medically admitted to [place] [address]. Pt reported to CARE Team that his meds are not working, talking in the middle of the night to no one . Pt also complained of feeling depressed and struggling with severe anxiety and chronic pain. Upon arrival to the unit pt was calm and cooperative, bruises noted on arms from IVs, VS were WNL, except, SO2 92%. Pt came to the unit with oxygen tank, Oxygen running 1L through nasal canula. The oxygen was kept and he was placed on 5 min checks. Pt reported depression and anxiety levels 10/10, but denied SI/HI/AVH. He started demanding his night meds and becoming agitated about them. At that time he requested and signed a 3- Day Notice. After getting his meds he went to bed, admission papers need to be signed with patient.
[2024-08-31] MEDS: methADONE HCl 20 MG/2 ML ORAL.CONC 100 MG PO (07:44)
[2024-08-31 08:00] VITALS: BP 134/82; PULSE 85; RESP 14; TEMP 36.3; O2SAT 94
[2024-08-31 08:05] VITALS: O2SAT 90
[2024-08-31 08:10] VITALS: O2SAT 94
[2024-08-31 08:27] LABS: Alanine Aminotransferase 15 U/L (0-40); Albumin Level 3.4 g/dL (3.5-5.0); Alkaline Phosphatase 99 U/L (39-117); Anion Gap 13 (12-20); Aspartate Amino Transferase 18 U/L (5-37); Bilirubin Total 0.4 mg/dL (0.0-1.0); Blood Urea Nitrogen 8 mg/dL (9-16); Calcium 8.8 mg/dL (8.4-10.2); Carbon Dioxide 31 mmol/L (22-29); Chloride 100 mmol/L (96-108); Cholesterol 126 mg/dL (<200); Creatinine Clr Calc Pharmacy 152.5; Estimated Glomerular Filt Rate > 60; Glucose Random 116 mg/dL (60-115); HDL Cholesterol 37 mg/dL (>40); LDL Cholesterol Calculated 73 mg/dL (<100); Potassium 4.1 mmol/L (3.3-5.1); Sodium 140 mmol/L (135-145); Total Protein 6.5 g/dL (6.5-8.0); Triglycerides 82 mg/dL (<150)
[2024-08-31] MEDS: Aspirin Enteric Coated 81 MG TABLET.DR PO (08:27)
[2024-08-31] MEDS: polyethylene glycoL 3350 17 GM POWD.PACK PO ×2 (08:27→21:33)
[2024-08-31] MEDS: Sulfamethox/Trimeth 800/160 TABLET 1 TAB PO ×2 (08:27→21:28)
[2024-08-31] MEDS: guanFACINE HCl ER 1 MG TAB.ER.24H PO (08:27)
[2024-08-31] MEDS: Acetaminophen 325 MG TABLET 650 MG PO ×2 (08:28→21:29)
[2024-08-31] MEDS: Multivitamin TABLET 1 TAB PO (08:28)
[2024-08-31] MEDS: QUEtiapine Fumarate 25 MG TABLET 75 MG PO ×2 (08:28→21:42)
[2024-08-31] MEDS: Ferrous Sulfate 324 MG TABLET.DR PO (08:28)
[2024-08-31] MEDS: Divalproex Sodium 250 MG TABLET.DR PO ×2 (08:28→21:28)
[2024-08-31 08:29] VITALS: BP 134/82
[2024-08-31] MEDS: cloNIDine HCL 0.1 MG TABLET PO ×2 (08:29→21:31)
[2024-08-31] MEDS: clonazePAM 0.5 MG TABLET PO ×3 (08:29→21:28)
[2024-08-31] MEDS: Sennosides/Docusate Sodium TABLET 2 TAB PO ×2 (08:30→21:26)
[2024-08-31 08:41] LABS: Thyroid Stimulating Hormone 2.98 uIU/mL (0.32-4.0)
[2024-08-31 08:54] LABS: Estimated Average Glucose 123 mg/dL; Hemoglobin A1C 114.1117 umol/L; Hemoglobin A1c % 5.9 % (<6.0); Total Hemoglobin (HGBA1C) 2792.0107 umol/L
[2024-08-31 08:55] LABS: Folate 12.7 ng/mL (> or = 4.0); Vitamin B12 655 pg/mL (200-900)
--- NOTE | 2024-08-31 09:38 | HO.PSYADMNOT ---
HPI Date of Service: 08/31/24 Chief Complaint: Hypoxia Sources of Information: patient interviewed, chart reviewed and crisis/core team assessment reviewed HPI Subjective Notes: Conditional Voluntary Narrative: HPI: 39 yo male with hx of anxiety, panic, agoraphobia, depression; substance abuse in sustained remission, on methadone who first presented for SI (though no plan), in face of ongoing, debilitating panic/anxiety. Pt was first sent to medical floor for bilateral PNA but was medically cleared and returned to psych. On unit, patient destaturated, transferred back to medical floor for treatment of multifocal pneumonia, sepsis and IV abx. Now cleared again, back on psych floor, now on continually. Pt now with depression and needing retitration of medications. Past Psychiatric History: Psychiatrist: Curtis WELLINGTON Therapist: Clifton WELLINGTON Denies history of SA. Reports history of punching self good states he has not done this in years. He reports his last psychiatric admission being in 2013. History of detox admissions and section [facility]. Medical Evaluation Reviewed: Yes [facility] Medical History (Updated 09/08/24 @ 11:53 by Vaughn Carballo MD) Agoraphobia Acute exacerbation of moderate persistent extrinsic asthma Pneumonitis Opioid use disorder, severe, in early remission Suicidal ideation Exocrine pancreatic insufficiency Polysubstance abuse No known health problems Family History: Unknown Social History: Lives with mother. Single. 19-year-old child. Unemployed. Highest level of education completed 11th grade. Substance History: Sustained sobriety Trauma History: Denies Diagnostics Vital Signs (24Hr): Vital Signs - 24 hr 08/30/24 21:45 08/30/24 23:40 08/31/24 08:29 Temperature 97.8 F Pulse Rate 98 Respiratory Rate 15 Blood Pressure 141/73 H 141/73 H 134/82 Pulse Oximetry 93 BMI result Body Mass Index 47.7 Labs 08/31/24 07:52 Labs: Laboratory Results - last 48 hr 08/31/24 07:52 Sodium 140 Potassium 4.1 Chloride 100 Carbon Dioxide 31 H Anion Gap 13 BUN 8 L Creatinine 0.89 Estim Creat Clear Calc 152.5 Estimated GFR > 60 Random Glucose 116 H Estimat Average Glucose 123 Hemoglobin A1c % 5.9 Calcium 8.8 Total Bilirubin 0.4 AST 18 ALT 15 Alkaline Phosphatase 99 Total Protein 6.5 Albumin 3.4 L Triglycerides 82 Cholesterol 126 LDL Cholesterol, Calc 73 HDL Cholesterol 37 L Vitamin B12 655 Folate 12.7 TSH 2.98 Meds/Allergies Meds Home Medications ?Medication ?Instructions ?Recorded ?Confirmed ?Type aspirin 81 mg tablet,delayed 81 mg PO DAILY 09/02/23 08/30/24 History release mirtazapine 15 mg tablet 15 mg PO BEDTIME 09/02/23 08/31/24 History fluticasone furoate 200 1 inh inhalation DAILY 08/15/24 08/31/24 History mcg-vilanterol 25 mcg/dose inhalation powder (Breo Ellipta) fluoxetine 20 mg capsule 60 mg PO DAILY 08/16/24 08/31/24 History cefpodoxime 200 mg tablet 200 mg PO BID 08/30/24 08/30/24 History Allergies Allergies Allergy/AdvReac Type Severity Reaction Status Date / Time Penicillins [PENICILLINS] Allergy Unknown RASH Verified 08/15/24 09:34 Mental Status Exam Mental Status Exam Narrative: Pt is alert and oriented; behavior is cooperative, friendly and calm; using nasal cannula for oxygen; dressed in hospital attire, unkempt; mood is described as anxious... Depressed and affect congruent; eye contact appropriate; Speech is normal rate, volume and prosody and not pressured; no psychomotor agitation/retardation present; thought process is organized and goal directed; Thought content is on tx, medical condition; otherwise pertinent to relevant topics and without any delusional content, paranoid ideations or grandiosity; denies any SI/HI. Denies AVH and there is no evidence of perceptual disturbance. Patients insight and judgment appear intact. Assessment & Plan Assessment & Plan (1) MDD (major depressive disorder), recurrent episode, moderate: Status: Acute Code(s): F33.1 - Major depressive disorder, recurrent, moderate (2) Anxiety: Status: Acute Code(s): F41.9 - Anxiety disorder, unspecified (3) Agoraphobia: Status: Acute Code(s): F40.00 - Agoraphobia, unspecified (4) Opioid use disorder: Status: Acute Code(s): F11.90 - Opioid use, unspecified, uncomplicated (5) Multifocal pneumonia: Status: Acute Code(s): J18.9 - Pneumonia, unspecified organism Plan HPI: 39 yo male with hx of anxiety, panic, agoraphobia, depression; substance abuse in sustained remission, on methadone who first presented for SI (though no plan), in face of ongoing, debilitating panic/anxiety. Pt was first sent to medical floor for bilateral PNA but was medically cleared and returned to psych. On unit, patient destaturated, transferred back to medical floor for treatment of multifocal pneumonia, sepsis and IV abx. Now cleared again, back on psych floor, now on continually. Pt now with depression and needing retitration of medications. Patient was admitted for ongoing panic attacks on top of daily debilitating anxiety that keeps him from leaving the house or doing much of anything. Patient is grateful that he has remained sober for years, which he attributes to avoiding all the people he knew from those days, but he feels trapped in his house, afraid to go out and see people but also afraid of having a panic attack. 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 Current medication regimen has done little to curb anxiety and panic remains debilitating and has resulted in agoraphobia. Pt agreed to switch med regimen which seems to be proving more effective Additionally, pt on continually 02; pulm advising; also had some blood per rectum; H&H stable, GI recs colonoscopy at some point Hospital course: Initial admission patient switched from Prozac to venlafaxine; started on nortriptyline He reports improved mood since admission. denies SI/HI/VH/AH. Continue current tx plan. Patient reports still anxious but no panic. Agrees to increasing venlafaxine to 150 mg; also discussed Intuniv, risks/side effects and patient agrees to add this for both internal anxiety and help with focus. Discussed medication regimen further and patient is sleeping well and agrees to discontinue mirtazapine to avoid polypharmacy On 08/27 Discharged to medical floor for worsening pneumonia; diagnosed with multifocal pneumonia and now on O2 continuously. Returned to psychiatric unit on 08/31 08/31 patient readmitted to psychiatric floor for continued medication treatment Plan: cv q15min checks O2 continuous; monitor O2 sat Abx per hospitalist/pulm both Bactrim and cefpodoxime restart Intuniv for both impulsivity and internal anxiety Will restart and titrate venlafaxine 150 mg (chosen instead of Zoloft since patient has chronic GI issues including nausea/vomiting) Continue nortriptyline 25 mg q.h.s. to help with insomnia since this has less weight gain risk then mirtazapine Continue clonidine 0.1 mg b.i.d. to help with insomnia and anxiety Temporarily increased clonazepam 0.5 mg to t.i.d. p.r.n. (up from b.i.d. p.r.n.); patient remains it sustained sobriety for several years (he had a slip up for one day in February 2024) Discontinued mirtazapine; patient sleeping without it Discontinued Prozac since little benefit from Prozac 60 mg; switch to Effexor which proved more effective -continue depakote for now (pt thinks helps some) -Continue Seroquel for now (pt thinks helps some) Patient educated on: diagnosis, medication risk/benefits and medical condition Informed Consent: understands Reason for continued inpatient stay Substantial Risk for: rapid decompensation Statement Statement: I have reviewed the history and physical and performed a pertinent examination on my patient. No changes have occurred unless specified. If the History and Physical was not performed prior to admission, the Hospitalist's service will be consulted for completing the admission physical. Time Spent With Patient Time: Total time managing care of this patient today ____ minutes.
[2024-08-31] MEDS: CEFPODOXIME 200 MG 200 EACH PO ×2 (12:28→17:33)
[2024-08-31] MEDS: Albuterol Sulfate 90 MCG 8 GM INHALER 2 PUFF INHALE (15:45)
[2024-08-31] MEDS: Lipase/Prot/Amylase 12/38/60K CAPSULE.DR 2 CAP PO (17:32)
[2024-08-31] MEDS: methADONE HCl 20 MG/2 ML ORAL.CONC 25 MG PO (17:33)
[2024-08-31] MEDS: Hydrocortisone 2.5 % Rectal Cr 30 GM TUBE 1 APPL PR (17:50)
[2024-08-31] MEDS: OLANZapine 5 MG TABLET PO ×2 (17:51→22:57)
[2024-08-31] MEDS: Magnesium Oxide 400 MG TABLET PO (21:26)
[2024-08-31] MEDS: Nortriptyline HCl 25 MG CAPSULE PO (21:27)
[2024-08-31] MEDS: Famotidine 20 MG TABLET PO (21:29)
[2024-08-31 21:30] VITALS: BP 138/72; PULSE 92; TEMP 36.7; O2SAT 94
[2024-08-31 21:31] VITALS: BP 138/72
[2024-09-01] VITALS (8 sets, daily range): BP systolic 120–144; BP diastolic 75–87; PULSE 75–92; RESP 18; TEMP 36.2–36.9; O2SAT 92–93
[2024-09-01] MEDS: hydrOXYzine HCL 25 MG TABLET PO ×2 (02:11→23:57)
[2024-09-01] MEDS: methADONE HCl 20 MG/2 ML ORAL.CONC 100 MG PO (07:54)
[2024-09-01] MEDS: clonazePAM 0.5 MG TABLET PO ×3 (08:15→20:58)
[2024-09-01] MEDS: polyethylene glycoL 3350 17 GM POWD.PACK PO ×2 (08:30→20:56)
[2024-09-01] MEDS: CEFPODOXIME 200 MG 200 EACH PO ×2 (08:31→17:29)
[2024-09-01] MEDS: Multivitamin TABLET 1 TAB PO (08:31)
[2024-09-01] MEDS: Lipase/Prot/Amylase 12/38/60K CAPSULE.DR 2 CAP PO ×3 (08:31→17:28)
[2024-09-01] MEDS: cloNIDine HCL 0.1 MG TABLET PO ×3 (08:31→23:58)
[2024-09-01] MEDS: guanFACINE HCl ER 1 MG TAB.ER.24H PO (08:32)
[2024-09-01] MEDS: Sulfamethox/Trimeth 800/160 TABLET 1 TAB PO ×2 (08:32→20:58)
[2024-09-01] MEDS: Aspirin Enteric Coated 81 MG TABLET.DR PO (08:32)
[2024-09-01] MEDS: Sennosides/Docusate Sodium TABLET 2 TAB PO ×2 (08:32→20:59)
[2024-09-01] MEDS: Divalproex Sodium 250 MG TABLET.DR PO ×2 (08:32→20:58)
[2024-09-01] MEDS: Acetaminophen 325 MG TABLET 650 MG PO (08:38)
--- NOTE | 2024-09-01 09:00 | P.PNPSI_ITS ---
Subjective Subjective Date of Service: 09/01/24 Reason For Visit: Hypoxia Interim History: Met with patient; discussed with team; discussed case with loss control engineer Patient remains anxious, depressed, worried about his medical situation. Discussed medical illness. He remains needing O2 but is tolerating 2 L; discussed the importance of doing incentive spirometry and patient said he will do it. Will restart venlafaxine. Discussed why patient is on aspirin which he said I am in bed a lot so they started me on it.. Not restarting omeprazole at this time due to possible interaction with antibiotics, limiting their effectiveness. Instead will treat with Pepcid which does not inhibit effectiveness of antibiotic . Mental Status Exam Mental Status Exam Narrative: Pt is alert and oriented; behavior is cooperative, friendly and calm; using nasal cannula for oxygen; dressed in hospital attire, unkempt; mood is described as anxious... Depressed and affect congruent; eye contact appropriate; Speech is normal rate, volume and prosody and not pressured; no psychomotor agitation/retardation present; thought process is organized and goal directed; Thought content is on tx, medical condition; otherwise pertinent to relevant topics and without any delusional content, paranoid ideations or grandiosity; denies any SI/HI. Denies AVH and there is no evidence of perceptual disturbance. Patients insight and judgment appear intact. Diagnostics Vital Signs (24Hr): Vital Signs - 24 hr 08/31/24 21:30 08/31/24 21:31 09/01/24 01:30 Temperature 98.1 F 98.4 F Pulse Rate 92 75 Blood Pressure 138/72 138/72 120/80 Pulse Oximetry 94 92 Oxygen Delivery Method Nasal Cannula Nasal Cannula Oxygen Flow Rate 2 2 09/01/24 08:31 Temperature Pulse Rate Blood Pressure 144/87 H Pulse Oximetry Oxygen Delivery Method Oxygen Flow Rate BMI result Body Mass Index 47.7 Labs 08/31/24 07:52 Labs: Laboratory Results - last 48 hr 08/31/24 07:52 Sodium 140 Potassium 4.1 Chloride 100 Carbon Dioxide 31 H Anion Gap 13 BUN 8 L Creatinine 0.89 Estim Creat Clear Calc 152.5 Estimated GFR > 60 Random Glucose 116 H Estimat Average Glucose 123 Hemoglobin A1c % 5.9 Calcium 8.8 Total Bilirubin 0.4 AST 18 ALT 15 Alkaline Phosphatase 99 Total Protein 6.5 Albumin 3.4 L Triglycerides 82 Cholesterol 126 LDL Cholesterol, Calc 73 HDL Cholesterol 37 L Vitamin B12 655 Folate 12.7 TSH 2.98 Medications Medications Current Medications Acetaminophen (Acetaminophen 325 Mg Tablet) 650 mg PO Q6H PRN PRN Reason: Headache/Pain, Scale 1-10 Last Admin: 09/01/24 08:38 Dose: 650 mg Al Hydroxide/Mg Hydroxide (Magnesium Hydrox/Alum Hydrox 30 Ml Oral.Susp) 30 ml PO Q6H PRN PRN Reason: Heartburn/Nausea Albuterol Sulfate (Albuterol Sulfate 90 Mcg 8 Gm Inhaler) 2 puff INHALE RQ4H PRN PRN Reason: Shortness Of Breath Last Admin: 08/31/24 15:45 Dose: 2 puff Lipase/Protease/Amylase (Lipase/Prot/Amylase //60k Capsule.) 2 cap PO TIDWM [facility] Last Admin: 09/01/24 08:31 Dose: 2 cap Aspirin (Aspirin Enteric Coated 81 Mg Tablet.) 81 mg PO DAILY [facility] Last Admin: 09/01/24 08:32 Dose: 81 mg Clonazepam (Clonazepam 0.5 Mg Tablet) 0.5 mg PO TID PRN PRN Reason: Anxiety Last Admin: 08/31/24 21:28 Dose: 0.5 mg Clonidine HCl (Clonidine Hcl 0.1 Mg Tablet) 0.1 mg PO BID PRN; Protocol PRN Reason: moderate anxiety Clonidine HCl (Clonidine Hcl 0.1 Mg Tablet) 0.1 mg PO BID [facility]; Protocol Last Admin: 09/01/24 08:31 Dose: 0.1 mg Divalproex Sodium (Divalproex Sodium 250 Mg Tablet.) 250 mg PO BID [facility] Last Admin: 09/01/24 08:32 Dose: 250 mg Famotidine (Famotidine 20 Mg Tablet) 20 mg PO BEDTIME [facility] Last Admin: 08/31/24 21:29 Dose: 20 mg Ferrous Sulfate (Ferrous Sulfate 324 Mg Tablet.) 324 mg PO DAILY [facility] Last Admin: 09/01/24 08:36 Dose: Not Given Guanfacine HCl (Guanfacine Hcl Er 1 Mg Tab.Er.24h) 1 mg PO DAILY [facility] Last Admin: 09/01/24 08:32 Dose: 1 mg Hydrocortisone (Hydrocortisone 2.5 % Rectal Cr 30 Gm Tube) 1 appl WI DAILY [facility] Last Admin: 08/31/24 17:50 Dose: 1 appl Hydroxyzine HCl (Hydroxyzine Hcl 25 Mg Tablet) 25 mg PO Q6H PRN PRN Reason: mild anxiety Last Admin: 09/01/24 02:11 Dose: 25 mg Lactulose (Lactulose 20 Gm/30 Ml Solution) 20 gm PO DAILY PRN PRN Reason: Constipation Magnesium Hydroxide (Milk Of Magnesia 30 Ml Oral.Susp) 30 ml PO DAILY PRN PRN Reason: Constipation Magnesium Oxide (Magnesium Oxide 400 Mg Tablet) 400 mg PO BEDTIME [facility] Last Admin: 08/31/24 21:26 Dose: 400 mg Methadone HCl (Methadone Hcl 20 Mg/2 Ml Oral.Conc) 25 mg PO DAILY@1700 [facility] Last Admin: 08/31/24 17:33 Dose: 25 mg Methadone HCl (Methadone Hcl 20 Mg/2 Ml Oral.Conc) 100 mg PO DAILY@0800 [facility] Last Admin: 09/01/24 07:54 Dose: 100 mg Multivitamins/Vitamin C (Multivitamin Tablet) 1 tab PO DAILY [facility] Last Admin: 09/01/24 08:31 Dose: 1 tab Pat Own Med ( Cefpodoxime 200 Mg Tablet) 200 mg PO BIDWM [facility] Stop: 09/10/24 17:01 Last Admin: 09/01/24 08:31 Dose: 200 mg Nortriptyline HCl (Nortriptyline Hcl 25 Mg Capsule) 25 mg PO BEDTIME [facility] Last Admin: 08/31/24 21:27 Dose: 25 mg Olanzapine (Olanzapine 5 Mg Tablet) 5 mg PO TID PRN PRN Reason: agitation Last Admin: 08/31/24 22:57 Dose: 5 mg Polyethylene Glycol (Polyethylene Glycol 3350 17 Gm Powd.Pack) 17 gm PO BID [facility] Last Admin: 09/01/24 08:30 Dose: 17 gm Quetiapine Fumarate (Quetiapine Fumarate 25 Mg Tablet) 75 mg PO BID PRN PRN Reason: more severe anxiety Last Admin: 08/31/24 21:42 Dose: 75 mg Senna/Docusate Sodium (Sennosides/Docusate Sodium Tablet) 2 tab PO BID [facility] Last Admin: 09/01/24 08:32 Dose: 2 tab Trimethoprim/Sulfamethoxazole (Sulfamethox/Trimeth 800/160 Tablet) 1 tab PO BID [facility] Stop: 09/10/24 21:01 Last Admin: 09/01/24 08:32 Dose: 1 tab Allergies Allergies Allergy/AdvReac Type Severity Reaction Status Date / Time Penicillins [PENICILLINS] Allergy Unknown RASH Verified 08/15/24 09:34 Assessment & Plan Assessment & Plan (1) MDD (major depressive disorder), recurrent episode, moderate: Status: Acute Code(s): F33.1 - Major depressive disorder, recurrent, moderate (2) Anxiety: Status: Acute Code(s): F41.9 - Anxiety disorder, unspecified (3) Agoraphobia: Status: Acute Code(s): F40.00 - Agoraphobia, unspecified (4) Opioid use disorder: Status: Acute Code(s): F11.90 - Opioid use, unspecified, uncomplicated (5) Exocrine pancreatic insufficiency: Status: Acute Code(s): K86.81 - Exocrine pancreatic insufficiency (6) Multifocal pneumonia: Status: Acute Code(s): J18.9 - Pneumonia, unspecified organism (7) Panic disorder: Status: Acute Code(s): F41.0 - Panic disorder [episodic paroxysmal anxiety] Plan HPI: 39 yo male with hx of anxiety, panic, agoraphobia, depression; substance abuse in sustained remission, on methadone who first presented for SI (though no plan), in face of ongoing, debilitating panic/anxiety. Pt was first sent to medical floor for bilateral PNA but was medically cleared and returned to psych. On unit, patient destaturated, transferred back to medical floor for treatment of multifocal pneumonia, sepsis and IV abx. Now cleared again, back on psych floor, now on continually. Pt now with depression and needing retitration of medications. Patient was admitted for ongoing panic attacks on top of daily debilitating anxiety that keeps him from leaving the house or doing much of anything. Patient is grateful that he has remained sober for years, which he attributes to avoiding all the people he knew from those days, but he feels trapped in his house, afraid to go out and see people but also afraid of having a panic attack. 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 Current medication regimen has done little to curb anxiety and panic remains debilitating and has resulted in agoraphobia. Pt agreed to switch med regimen which seems to be proving more effective Additionally, pt on continually ; pulm advising; also had some blood per rectum; H&H stable, GI recs colonoscopy at some point Hospital course: Initial admission patient switched from Prozac to venlafaxine; started on nortriptyline 08/24: Observed laying in bed napping. Patient reports feeling alright ; denied any issues at this time. Pt stated, I didn't sleep too well last night so I'm trying to nap . He reports improved mood since admission. denies SI/HI/VH/AH. Continue current tx plan. 08/25 Patient reports still anxious; no panic however. Agrees to increasing venlafaxine to 150 mg; also discussed Intuniv, risks/side effects and patient agrees to add this for both internal anxiety and help with focus. Discussed medication regimen further and patient is sleeping well and agrees to discontinue mirtazapine to avoid polypharmacy On 08/27 Discharged to medical floor for worsening pneumonia; diagnosed with multifocal pneumonia and now on O2 continuously. Returned to psychiatric unit on 08/31 08/31 patient readmitted to psychiatric floor for continued medication treatment 09/01 Patient remains anxious, depressed, worried about his medical situation. Discussed medical illness. He remains needing O2 but is tolerating 2 L; discussed the importance of doing incentive spirometry and patient said he will do it. Will restart venlafaxine. Discussed why patient is on aspirin which he said I am in bed a lot so they started me on it.. Not restarting omeprazole at this time due to possible interaction with antibiotics, limiting their effectiveness. Instead will treat with Pepcid which does not inhibit effectiveness of antibiotic -Dr. Evans will start Trelegy Plan: 3 day notice q15min checks O2 continuous; monitor O2 sat Abx per hospitalist/pulm Continue Intuniv for both impulsivity and internal anxiety Will restart and titrate venlafaxine 150 mg (chosen instead of Zoloft since patient has chronic GI issues including nausea/vomiting) Continue nortriptyline 25 mg q.h.s. to help with insomnia since this has less weight gain risk then mirtazapine Continue clonidine 0.1 mg b.i.d. to help with insomnia and anxiety Temporarily increased clonazepam 0.5 mg to t.i.d. p.r.n. (up from b.i.d. p.r.n.); patient remains it sustained sobriety for several years (he had a slip up for one day in February 2024) Discontinued mirtazapine; patient sleeping without it Discontinued Prozac since little benefit from Prozac 60 mg; switch to Effexor which proved more effective -continue depakote for now (pt thinks helps some) -Continue Seroquel for now (pt thinks helps some) Patient educated on: diagnosis, medication risk/benefits and medical condition Informed Consent: understands and further education needed Reason for continued inpatient stay Substantial Risk for: rapid decompensation Time Spent With Patient Time: Total time managing care of this patient today ____ minutes.
[2024-09-01] MEDS: Famotidine 20 MG TABLET PO ×2 (12:12→20:58)
[2024-09-01] MEDS: Venlafaxine HCl ER 150 MG CAP.ER.24H PO (12:12)
[2024-09-01] MEDS: OLANZapine 5 MG TABLET PO ×2 (13:39→22:26)
[2024-09-01] MEDS: Hydrocortisone 2.5 % Rectal Cr 30 GM TUBE 1 APPL PR (13:50)
[2024-09-01] MEDS: methADONE HCl 20 MG/2 ML ORAL.CONC 25 MG PO (17:28)
[2024-09-01] MEDS: QUEtiapine Fumarate 25 MG TABLET 75 MG PO (20:57)
[2024-09-01] MEDS: Nortriptyline HCl 25 MG CAPSULE PO (20:58)
[2024-09-01] MEDS: Magnesium Oxide 400 MG TABLET PO (20:59)
[2024-09-01] MEDS: Albuterol Sulfate 90 MCG 8 GM INHALER 2 PUFF INHALE (22:26)
[2024-09-02 00:07] VITALS: BP 120/75; PULSE 87; TEMP 36.6; O2SAT 89
--- NOTE | 2024-09-02 00:08 | PC.NURSE ---
Patient c/o frequent coughing. On O2 2l . O2 sat 88-90. BP 120/75. Appears anxious. Medicated with Clonidine and Hydroxyzine. Will continue to monitor.
[2024-09-02] MEDS: Albuterol Sulfate 90 MCG 8 GM INHALER 2 PUFF INHALE (01:34)
[2024-09-02 01:46] VITALS: O2SAT 90
--- NOTE | 2024-09-02 05:12 | PC.ADMIT ---
Patient placed on 5 minute checks overnight while using concentrator in room per nursing hatchery supervisor. Frequent checks on O2 sats were done by this RN.Vital signs remained WNL. O2 sats at 90-91%. Patient unable to get restful sleep due to coughing. Utilizing PRN medication for anxiety and sleep with positive effect.
[2024-09-02] MEDS: methADONE HCl 20 MG/2 ML ORAL.CONC 100 MG PO (08:19)
[2024-09-02] MEDS: Fluticasone/Umeclidinium/Vilanterol 200/62.5/25 BLST.W.DEV 1 PUFF INHALE (08:22)
[2024-09-02] MEDS: Sulfamethox/Trimeth 800/160 TABLET 1 TAB PO ×2 (08:25→20:20)
[2024-09-02] MEDS: Aspirin Enteric Coated 81 MG TABLET.DR PO (08:25)
[2024-09-02] MEDS: guanFACINE HCl ER 1 MG TAB.ER.24H PO (08:25)
[2024-09-02] MEDS: Famotidine 20 MG TABLET PO ×2 (08:25→20:34)
[2024-09-02] MEDS: CEFPODOXIME 200 MG 200 EACH PO ×2 (08:25→17:32)
[2024-09-02] MEDS: polyethylene glycoL 3350 17 GM POWD.PACK PO ×2 (08:25→20:19)
[2024-09-02 08:26] VITALS: BP 143/72; PULSE 100; TEMP 36.4; O2SAT 91
[2024-09-02] MEDS: Venlafaxine HCl ER 150 MG CAP.ER.24H PO (08:26)
[2024-09-02] MEDS: Sennosides/Docusate Sodium TABLET 2 TAB PO ×2 (08:26→20:19)
[2024-09-02] MEDS: Multivitamin TABLET 1 TAB PO (08:26)
[2024-09-02] MEDS: Divalproex Sodium 250 MG TABLET.DR PO ×2 (08:26→20:20)
[2024-09-02] MEDS: cloNIDine HCL 0.1 MG TABLET PO ×3 (08:26→20:51)
[2024-09-02] MEDS: clonazePAM 0.5 MG TABLET PO ×3 (09:08→20:19)
[2024-09-02] MEDS: Hydrocortisone 2.5 % Rectal Cr 30 GM TUBE 1 APPL PR (09:09)
--- NOTE | 2024-09-02 10:57 | HO.PSYCHPN ---
Subjective Subjective Date of Service: 09/02/24 Reason For Visit: SI Subjective Notes: Conditional Voluntary Interim History: Patient was seen and discussed in rounds today. Records and plans were reviewed. He was transferred back to us after being on the medical unit and is on constant O2. Medications were reviewed. Effexor was started yesterday. No SI. No complaints other than feeling weak. I will put in a hospitalist consult to be followed. Review of Systems Review of Systems Breathing difficulties Yes all other systems are reviewed and are negative Mental Status Exam Mental Status Exam Patient Appearance: Fatigued and Appropriate Patient Orientation: Person, Place, Time and Situation Level of Consciousness: Awake and Appropriate Patient Behavior: Appropriate, Dependent and Fatigued Mood Description: Calm, Constricted, Depressed, Sad and Nervous Affect Description: Sad and Nervous Patient Cognition Impaired: No Ability to Follow Directions: Excellent Speech Pattern: Clear Memory Description: Intact Hallucinations: None Delusions: Not Present Thought Process: Intact Thought Content: positive for Goal Oriented and positive for Linear Depressive Symptoms: Increased Anxiety Judgement: Good Diagnostics Vital Signs (24Hr): Vital Signs - 24 hr 09/01/24 12:00 09/01/24 14:30 09/01/24 20:00 Temperature 97.5 F Pulse Rate 86 Blood Pressure 140/83 H Pulse Oximetry 93 92 93 Oxygen Delivery Method Nasal Cannula Nasal Cannula Nasal Cannula Oxygen Flow Rate 2 2 2 09/01/24 23:58 09/02/24 00:07 09/02/24 01:46 Temperature 97.8 F Pulse Rate 87 Blood Pressure 120/75 120/75 Pulse Oximetry 89 L 90 L Oxygen Delivery Method Nasal Cannula Nasal Cannula Oxygen Flow Rate 2 2 09/02/24 08:26 Temperature Pulse Rate Blood Pressure 143/72 H Pulse Oximetry Oxygen Delivery Method Oxygen Flow Rate BMI result Body Mass Index 47.7 Labs 08/31/24 07:52 Medications Medications Current Medications Acetaminophen (Acetaminophen 325 Mg Tablet) 650 mg PO Q6H PRN PRN Reason: Headache/Pain, Scale 1-10 Last Admin: 09/01/24 08:38 Dose: 650 mg Al Hydroxide/Mg Hydroxide (Magnesium Hydrox/Alum Hydrox 30 Ml Oral.Susp) 30 ml PO Q6H PRN PRN Reason: Heartburn/Nausea Albuterol Sulfate (Albuterol Sulfate 90 Mcg 8 Gm Inhaler) 2 puff INHALE RQ4H PRN PRN Reason: Shortness Of Breath Last Admin: 09/02/24 01:34 Dose: 2 puff Lipase/Protease/Amylase (Lipase/Prot/Amylase 12/38/60k Capsule.) 2 cap PO TIDWM [facility] Last Admin: 09/01/24 17:28 Dose: 2 cap Aspirin (Aspirin Enteric Coated 81 Mg Tablet.) 81 mg PO DAILY [facility] Last Admin: 09/02/24 08:25 Dose: 81 mg Clonazepam (Clonazepam 0.5 Mg Tablet) 0.5 mg PO TID PRN PRN Reason: Anxiety Last Admin: 09/02/24 09:08 Dose: 0.5 mg Clonidine HCl (Clonidine Hcl 0.1 Mg Tablet) 0.1 mg PO BID PRN; Protocol PRN Reason: moderate anxiety Last Admin: 09/01/24 23:58 Dose: 0.1 mg Clonidine HCl (Clonidine Hcl 0.1 Mg Tablet) 0.1 mg PO BID [facility]; Protocol Last Admin: 09/02/24 08:26 Dose: 0.1 mg Divalproex Sodium (Divalproex Sodium 250 Mg Tablet.) 250 mg PO BID [facility] Last Admin: 09/02/24 08:26 Dose: 250 mg Famotidine (Famotidine 20 Mg Tablet) 20 mg PO BID [facility] Last Admin: 09/02/24 08:25 Dose: 20 mg Ferrous Sulfate (Ferrous Sulfate 324 Mg Tablet.) 324 mg PO DAILY [facility] Last Admin: 09/02/24 08:34 Dose: Not Given Fluticasone/Umeclidinium/Vilanterol (Fluticasone/Umeclidinium/Vilanterol 200/62.5/25 Blst.W.Dev) 1 puff INHALE RDAILY [facility] Last Admin: 09/02/24 08:22 Dose: 1 puff Guanfacine HCl (Guanfacine Hcl Er 1 Mg Tab.Er.24h) 1 mg PO DAILY [facility] Last Admin: 09/02/24 08:25 Dose: 1 mg Hydrocortisone (Hydrocortisone 2.5 % Rectal Cr 30 Gm Tube) 1 appl [place] DAILY [facility] Last Admin: 09/02/24 09:09 Dose: 1 appl Hydroxyzine HCl (Hydroxyzine Hcl 25 Mg Tablet) 25 mg PO Q6H PRN PRN Reason: mild anxiety Last Admin: 09/01/24 23:57 Dose: 25 mg Lactulose (Lactulose 20 Gm/30 Ml Solution) 20 gm PO DAILY PRN PRN Reason: Constipation Magnesium Hydroxide (Milk Of Magnesia 30 Ml Oral.Susp) 30 ml PO DAILY PRN PRN Reason: Constipation Magnesium Oxide (Magnesium Oxide 400 Mg Tablet) 400 mg PO BEDTIME [facility] Last Admin: 09/01/24 20:59 Dose: 400 mg Methadone HCl (Methadone Hcl 20 Mg/2 Ml Oral.Conc) 25 mg PO DAILY@1700 [facility] Last Admin: 09/01/24 17:28 Dose: 25 mg Methadone HCl (Methadone Hcl 20 Mg/2 Ml Oral.Conc) 100 mg PO DAILY@0800 [facility] Last Admin: 09/02/24 08:19 Dose: 100 mg Multivitamins/Vitamin C (Multivitamin Tablet) 1 tab PO DAILY [facility] Last Admin: 09/02/24 08:26 Dose: 1 tab Pat Own Med ( Cefpodoxime 200 Mg Tablet) 200 mg PO BIDWM [facility] Stop: 09/10/24 17:01 Last Admin: 09/02/24 08:25 Dose: 200 mg Nortriptyline HCl (Nortriptyline Hcl 25 Mg Capsule) 25 mg PO BEDTIME [facility] Last Admin: 09/01/24 20:58 Dose: 25 mg Olanzapine (Olanzapine 5 Mg Tablet) 5 mg PO TID PRN PRN Reason: agitation Last Admin: 09/01/24 22:26 Dose: 5 mg Polyethylene Glycol (Polyethylene Glycol 3350 17 Gm Powd.Pack) 17 gm PO BID [facility] Last Admin: 09/02/24 08:25 Dose: 17 gm Quetiapine Fumarate (Quetiapine Fumarate 25 Mg Tablet) 75 mg PO BID PRN PRN Reason: more severe anxiety Last Admin: 09/01/24 20:57 Dose: 75 mg Senna/Docusate Sodium (Sennosides/Docusate Sodium Tablet) 2 tab PO BID [facility] Last Admin: 09/02/24 08:26 Dose: 2 tab Trimethoprim/Sulfamethoxazole (Sulfamethox/Trimeth 800/160 Tablet) 1 tab PO BID [facility] Stop: 09/10/24 21:01 Last Admin: 09/02/24 08:25 Dose: 1 tab Venlafaxine HCl (Venlafaxine Hcl Er 150 Mg Cap.Er.24h) 150 mg PO DAILY [facility] Last Admin: 09/02/24 08:26 Dose: 150 mg Allergies Allergies Allergy/AdvReac Type Severity Reaction Status Date / Time Penicillins [PENICILLINS] Allergy Unknown RASH Verified 08/15/24 09:34 Assessment & Plan Assessment & Plan (1) MDD (major depressive disorder), recurrent episode, moderate: Status: Acute Code(s): F33.1 - Major depressive disorder, recurrent, moderate Plan HPI: 39 yo male with hx of anxiety, panic, agoraphobia, depression; substance abuse in sustained remission, on methadone who first presented for SI (though no plan), in face of ongoing, debilitating panic/anxiety. Pt was first sent to medical floor for bilateral PNA but was medically cleared and returned to psych. On unit, patient destaturated, transferred back to medical floor for treatment of multifocal pneumonia, sepsis and IV abx. Now cleared again, back on psych floor, now on continually. Pt now with depression and needing retitration of medications. Formulation/clinical reasoning: hx of anxiety, panic, agoraphobia, depression; marketing writer reviewed hx and pt denies manic episodes. Current medication regimen has done little to curb anxiety and panic remains debilitating and has resulted in agoraphobia. Pt agrees to switch med regimen to see if alternative meds can be more effective (see below). Additionally, pt on continually ; pulm advising; also had some blood per rectum; H&H stable, GI recs colonoscopy at some point near future Hospital course: 09/01 very anxious and depressed as well; restarted venlafaxine -discussed tapering off afternoon methadone and pt agrees Plan: CV q15min checks O2 continuous; monitor O2 sat Abx per hospitalist/pulm DC Prozac since little benefit from Prozac 60 mg which he has been on for quite some time Restart venlafaxine at 112.5 (as Prozac 60 mg his rough equivalent to venlafaxine 112.5 to 150 mg); will likely titrate to 150 mg (chosen instead of Zoloft since patient has chronic GI issues including nausea/vomiting) Continue nortriptyline 25 mg q.h.s. to help with insomnia since this has less weight gain risk then mirtazapine DC mirtazapine 15 mg q.h.s. a p.r.n. in case patient still can not sleep with nortriptyline Continue clonidine 0.1 mg b.i.d. to help with insomnia and anxiety Temporarily increased clonazepam 0.5 mg to t.i.d. p.r.n. (up from b.i.d. p.r.n.); patient remains it sustained sobriety for several years (he had a slip up for one day in February 2024) -continue depakote for now (pt thinks helps some) -Continue Seroquel for now (pt thinks helps some) 09/02: Continue current regimen and plans. Reason for continued inpatient stay Substantial Risk for: med/psych decompensation Time Spent With Patient Time: Total time managing care of this patient today ____ minutes.
[2024-09-02] MEDS: Lipase/Prot/Amylase 12/38/60K CAPSULE.DR 2 CAP PO ×2 (12:31→17:10)
--- NOTE | 2024-09-02 12:43 | P.EN_ITS ---
Event Note Date of Service: 09/02/24 Event Note: Pt is a 39-year-old male with a PMH significant for asthma, polysubstance use disorder on methadone, and bipolar disorder admitted to [facility] with hospitalist consult difficulty breathing. Pt has been admitted to the medical floor for treatment of multifocal pneumonia twice in the past 2 weeks, once from 08/16-08/22 and again from08/27-. Currently being treated with Bactrim and cefpodoxime within day set for 09/10. Pt also on supplemental 1L O2 at night, with NABS, and ambulation, but not at rest. Pt seen resting comfortably in bed, sleeping on his back with oxygen on. No acute respiratory distress. Apparently continues to have cough and some SOB, especially with ambulation. However, pt is able to speak in full sentences and able to ambulate on the unit. Pt has been attempting to lose weight, though admits that it is quite difficult. At home smokes and vapes ?a lot? without further quantification. Apparently has been staying home and spending most of the day sitting on the couch constantly smoking/vaping while watching TV. Reports compliance with daily maintenance inhalers. Has been using albuterol rescue inhaler 2-3 times daily at home. Physical exam benign with lungs CTA. Vitals without fever, though show O2 sat of 91% on RA. No indication at this time for changing treatment for SOB. Pt has already been admitted to medical services twice before and treated with IV antibiotics for multifocal pneumonia. Continue p.o. antibiotics as prescribed. Continue home inhalers, including rescue inhaler. Continue 1 L supplemental O2 with ambulation, at nighttime, and with naps Pt will require home O2 re-evaluation upon discharge Continue incentive spirometry Recurrent hematochezia Likely hemorrhoidal as H&H has been stable Colonoscopy with Dr. Rodas set to be scheduled for sometime next week while pt admitted to Psychiatry Lightheadedness/dizziness Reports ?attacks? of lightheadedness, dizziness, diaphoresis, tachycardia for the past few years, often associated with BM, alleviated only by diazepam Possibly vasovagal but per Pulmonology ruling out carcinoid with chromogranin A; results pending at the time of transfer and should follow up with [facility] Obesity class 3 Encourage weight loss Thank you for allowing us to participate in the care of this pt. Will sign off for now. Please re-consult if any acute issue or need arises. Time Spent With Patient Time: Total time managing care of this patient today ____ minutes.
[2024-09-02] MEDS: methADONE HCl 20 MG/2 ML ORAL.CONC 25 MG PO (17:13)
[2024-09-02 18:30] VITALS: BP 149/85
[2024-09-02] MEDS: OLANZapine 5 MG TABLET PO ×2 (18:30→20:20)
[2024-09-02 20:00] VITALS: BP 134/75; PULSE 88; TEMP 36.5; O2SAT 91
[2024-09-02] MEDS: QUEtiapine Fumarate 25 MG TABLET 75 MG PO (20:19)
[2024-09-02] MEDS: hydrOXYzine HCL 25 MG TABLET PO (20:19)
[2024-09-02] MEDS: Magnesium Oxide 400 MG TABLET PO (20:20)
[2024-09-02] MEDS: Nortriptyline HCl 25 MG CAPSULE PO (20:20)
[2024-09-02 20:51] VITALS: BP 134/75
[2024-09-03] MEDS: hydrOXYzine HCL 25 MG TABLET PO (02:30)
[2024-09-03] MEDS: OLANZapine 5 MG TABLET PO (02:30)
--- NOTE | 2024-09-03 04:47 | PC.NURSE ---
Yaniv has been sleeping restlessly throughout the night. He is utilizing O2 via NC intermittently. Patient has had two episodes of incontinence during the night and believes that the O2 is the cause. O2 sat levels without O2 are between 88 and 90. Patient does not appear to be SOB. Yaniv has stated he would like to be back on the medical floor. Utilizing PRN medications for anxiety and sleep with positive effect. Will continue to monitor.
[2024-09-03 08:00] VITALS: BP 123/72; PULSE 97; RESP 19; TEMP 36.3; O2SAT 94
[2024-09-03] MEDS: Lipase/Prot/Amylase 12/38/60K CAPSULE.DR 2 CAP PO ×3 (08:18→17:05)
[2024-09-03] MEDS: methADONE HCl 20 MG/2 ML ORAL.CONC 100 MG PO (08:19)
[2024-09-03] MEDS: polyethylene glycoL 3350 17 GM POWD.PACK PO ×2 (08:20→17:18)
--- NOTE | 2024-09-03 09:16 | P.PNPSI_ITS ---
Subjective Subjective Date of Service: 09/03/24 Reason For Visit: SI Subjective Notes: Conditional Voluntary Interim History: Patient was seen and discussed in rounds today. Records and plans were reviewed. He continues to complain of fatigue and is concerned with having had 2 or 3 episodes of incontinence. He denies history of this and attributes it to oxygen!. He is also hoping to be transferred back to Medicine in light of the beds being uncomfortable for him here. His head was raised with a wedge using other cushioning material which was a little helpful. He slept 4 hours. Eating adequately. He was seen by the hospitalist yesterday with no changes recommended. His O2 sat has been in the high 80s to low 90s on oxygen. No SI Review of Systems Review of Systems Incontinence Yes all other systems are reviewed and are negative Mental Status Exam Mental Status Exam Patient Appearance: Fatigued and Appropriate Patient Orientation: Person, Place, Time and Situation Level of Consciousness: Awake and Appropriate Patient Behavior: Appropriate, Dependent and Fatigued Mood Description: Calm, Constricted, Depressed, Sad and Nervous Affect Description: Sad and Nervous Patient Cognition Impaired: No Ability to Follow Directions: Excellent Speech Pattern: Clear Memory Description: Intact Hallucinations: None Delusions: Not Present Thought Process: Intact Thought Content: positive for Goal Oriented and positive for Linear Depressive Symptoms: Increased Anxiety Judgement: Good Diagnostics Vital Signs (24Hr): Vital Signs - 24 hr 09/02/24 18:30 09/02/24 20:00 09/02/24 20:51 Temperature 97.7 F Pulse Rate 88 Blood Pressure 149/85 H 134/75 134/75 Pulse Oximetry 91 L Oxygen Delivery Method Room Air Oxygen Flow Rate 2 BMI result Body Mass Index 47.7 Labs 08/31/24 07:52 Medications Medications Current Medications Acetaminophen (Acetaminophen 325 Mg Tablet) 650 mg PO Q6H PRN PRN Reason: Headache/Pain, Scale 1-10 Last Admin: 09/01/24 08:38 Dose: 650 mg Al Hydroxide/Mg Hydroxide (Magnesium Hydrox/Alum Hydrox 30 Ml Oral.Susp) 30 ml PO Q6H PRN PRN Reason: Heartburn/Nausea Albuterol Sulfate (Albuterol Sulfate 90 Mcg 8 Gm Inhaler) 2 puff INHALE RQ4H PRN PRN Reason: Shortness Of Breath Last Admin: 09/02/24 01:34 Dose: 2 puff Lipase/Protease/Amylase (Lipase/Prot/Amylase /60k Capsule.) 2 cap PO TIDWM [facility] Last Admin: 09/03/24 08:18 Dose: 2 cap Aspirin (Aspirin Enteric Coated 81 Mg Tablet.) 81 mg PO DAILY [facility] Last Admin: 09/02/24 08:25 Dose: 81 mg Clonazepam (Clonazepam 0.5 Mg Tablet) 0.5 mg PO TID PRN PRN Reason: Anxiety Last Admin: 09/02/24 20:19 Dose: 0.5 mg Clonidine HCl (Clonidine Hcl 0.1 Mg Tablet) 0.1 mg PO BID PRN; Protocol PRN Reason: moderate anxiety Last Admin: 09/02/24 18:30 Dose: 0.1 mg Clonidine HCl (Clonidine Hcl 0.1 Mg Tablet) 0.1 mg PO BID [facility]; Protocol Last Admin: 09/02/24 20:51 Dose: 0.1 mg Divalproex Sodium (Divalproex Sodium 250 Mg Tablet.) 250 mg PO BID [facility] Last Admin: 09/02/24 20:20 Dose: 250 mg Famotidine (Famotidine 20 Mg Tablet) 20 mg PO BID [facility] Last Admin: 09/02/24 20:34 Dose: 20 mg Ferrous Sulfate (Ferrous Sulfate 324 Mg Tablet.) 324 mg PO DAILY [facility] Last Admin: 09/02/24 08:34 Dose: Not Given Fluticasone/Umeclidinium/Vilanterol (Fluticasone/Umeclidinium/Vilanterol 200/62.5/25 Blst.W.Dev) 1 puff INHALE RDAILY [facility] Last Admin: 09/02/24 08:22 Dose: 1 puff Guanfacine HCl (Guanfacine Hcl Er 1 Mg Tab.Er.24h) 1 mg PO DAILY [facility] Last Admin: 09/02/24 08:25 Dose: 1 mg Hydrocortisone (Hydrocortisone 2.5 % Rectal Cr 30 Gm Tube) 1 appl [place] DAILY [facility] Last Admin: 09/02/24 09:09 Dose: 1 appl Hydroxyzine HCl (Hydroxyzine Hcl 25 Mg Tablet) 25 mg PO Q6H PRN PRN Reason: mild anxiety Last Admin: 09/03/24 02:30 Dose: 25 mg Lactulose (Lactulose 20 Gm/30 Ml Solution) 20 gm PO DAILY PRN PRN Reason: Constipation Magnesium Hydroxide (Milk Of Magnesia 30 Ml Oral.Susp) 30 ml PO DAILY PRN PRN Reason: Constipation Magnesium Oxide (Magnesium Oxide 400 Mg Tablet) 400 mg PO BEDTIME [facility] Last Admin: 09/02/24 20:20 Dose: 400 mg Methadone HCl (Methadone Hcl 20 Mg/2 Ml Oral.Conc) 25 mg PO DAILY@1700 [facility] Last Admin: 09/02/24 17:13 Dose: 25 mg Methadone HCl (Methadone Hcl 20 Mg/2 Ml Oral.Conc) 100 mg PO DAILY@0800 [facility] Last Admin: 09/03/24 08:19 Dose: 100 mg Multivitamins/Vitamin C (Multivitamin Tablet) 1 tab PO DAILY [facility] Last Admin: 09/02/24 08:26 Dose: 1 tab Pat Own Med ( Cefpodoxime 200 Mg Tablet) 200 mg PO BIDWM [facility] Stop: 09/10/24 17:01 Last Admin: 09/02/24 17:32 Dose: 200 mg Nortriptyline HCl (Nortriptyline Hcl 25 Mg Capsule) 25 mg PO BEDTIME [facility] Last Admin: 09/02/24 20:20 Dose: 25 mg Olanzapine (Olanzapine 5 Mg Tablet) 5 mg PO TID PRN PRN Reason: agitation Last Admin: 09/03/24 02:30 Dose: 5 mg Polyethylene Glycol (Polyethylene Glycol 3350 17 Gm Powd.Pack) 17 gm PO BID [facility] Last Admin: 09/03/24 08:20 Dose: 17 gm Quetiapine Fumarate (Quetiapine Fumarate 25 Mg Tablet) 75 mg PO BID PRN PRN Reason: more severe anxiety Last Admin: 09/02/24 20:19 Dose: 75 mg Senna/Docusate Sodium (Sennosides/Docusate Sodium Tablet) 2 tab PO BID [facility] Last Admin: 09/02/24 20:19 Dose: 2 tab Trimethoprim/Sulfamethoxazole (Sulfamethox/Trimeth 800/160 Tablet) 1 tab PO BID [facility] Stop: 09/10/24 21:01 Last Admin: 09/02/24 20:20 Dose: 1 tab Venlafaxine HCl (Venlafaxine Hcl Er 150 Mg Cap.Er.24h) 150 mg PO DAILY [facility] Last Admin: 09/02/24 08:26 Dose: 150 mg Allergies Allergies Allergy/AdvReac Type Severity Reaction Status Date / Time Penicillins [PENICILLINS] Allergy Unknown RASH Verified 08/15/24 09:34 Assessment & Plan Assessment & Plan (1) MDD (major depressive disorder), recurrent episode, moderate: Status: Acute Code(s): F33.1 - Major depressive disorder, recurrent, moderate Plan HPI: 39 yo male with hx of anxiety, panic, agoraphobia, depression; substance abuse in sustained remission, on methadone who first presented for SI (though no plan), in face of ongoing, debilitating panic/anxiety. Pt was first sent to medical floor for bilateral PNA but was medically cleared and returned to psych. On unit, patient destaturated, transferred back to medical floor for treatment of multifocal pneumonia, sepsis and IV abx. Now cleared again, back on psych floor, now on continually. Pt now with depression and needing retitration of medications. Formulation/clinical reasoning: hx of anxiety, panic, agoraphobia, depression; ghost writer reviewed hx and pt denies manic episodes. Current medication regimen has done little to curb anxiety and panic remains debilitating and has resulted in agoraphobia. Pt agrees to switch med regimen to see if alternative meds can be more effective (see below). Additionally, pt on continually ; pulm advising; also had some blood per rectum; H&H stable, GI recs colonoscopy at some point near future Hospital course: 09/01 very anxious and depressed as well; restarted venlafaxine -discussed tapering off afternoon methadone and pt agrees Plan: CV q15min checks O2 continuous; monitor O2 sat Abx per hospitalist/pulm DC Prozac since little benefit from Prozac 60 mg which he has been on for quite some time Restart venlafaxine at 112.5 (as Prozac 60 mg his rough equivalent to venlafaxine 112.5 to 150 mg); will likely titrate to 150 mg (chosen instead of Zoloft since patient has chronic GI issues including nausea/vomiting) Continue nortriptyline 25 mg q.h.s. to help with insomnia since this has less weight gain risk then mirtazapine DC mirtazapine 15 mg q.h.s. a p.r.n. in case patient still can not sleep with nortriptyline Continue clonidine 0.1 mg b.i.d. to help with insomnia and anxiety Temporarily increased clonazepam 0.5 mg to t.i.d. p.r.n. (up from b.i.d. p.r.n.); patient remains it sustained sobriety for several years (he had a slip up for one day in February 2024) -continue depakote for now (pt thinks helps some) -Continue Seroquel for now (pt thinks helps some) 09/02: Continue current regimen and plans. 09/03: Continue current regimen and plans. Reason for continued inpatient stay Substantial Risk for: med/psych decompensation Time Spent With Patient Time: Total time managing care of this patient today ____ minutes.
[2024-09-03] MEDS: Venlafaxine HCl ER 150 MG CAP.ER.24H PO (09:28)
[2024-09-03] MEDS: Aspirin Enteric Coated 81 MG TABLET.DR PO (09:28)
[2024-09-03 09:29] VITALS: BP 123/72
[2024-09-03] MEDS: Ferrous Sulfate 324 MG TABLET.DR PO (09:29)
[2024-09-03] MEDS: Divalproex Sodium 250 MG TABLET.DR PO ×2 (09:29→20:51)
[2024-09-03] MEDS: Sennosides/Docusate Sodium TABLET 2 TAB PO ×2 (09:29→20:51)
[2024-09-03] MEDS: cloNIDine HCL 0.1 MG TABLET PO ×2 (09:29→20:50)
[2024-09-03] MEDS: Sulfamethox/Trimeth 800/160 TABLET 1 TAB PO ×2 (09:29→20:51)
[2024-09-03] MEDS: Famotidine 20 MG TABLET PO ×2 (09:29→20:51)
[2024-09-03] MEDS: Multivitamin TABLET 1 TAB PO (09:29)
[2024-09-03] MEDS: guanFACINE HCl ER 1 MG TAB.ER.24H PO (09:29)
[2024-09-03] MEDS: Fluticasone/Umeclidinium/Vilanterol 200/62.5/25 BLST.W.DEV 1 PUFF INHALE (09:30)
[2024-09-03] MEDS: clonazePAM 0.5 MG TABLET PO ×3 (09:38→20:51)
[2024-09-03] MEDS: QUEtiapine Fumarate 25 MG TABLET 75 MG PO ×2 (09:38→20:52)
[2024-09-03] MEDS: CEFPODOXIME 200 MG 200 EACH PO ×2 (10:51→17:04)
[2024-09-03] MEDS: methADONE HCl 20 MG/2 ML ORAL.CONC 25 MG PO (17:04)
[2024-09-03 20:49] VITALS: BP 139/90; PULSE 90; TEMP 36.6; O2SAT 91
[2024-09-03] MEDS: Nortriptyline HCl 25 MG CAPSULE PO (20:51)
[2024-09-03] MEDS: Magnesium Oxide 400 MG TABLET PO (20:51)
[2024-09-04] MEDS: OLANZapine 5 MG TABLET PO ×2 (03:39→17:56)
[2024-09-04] MEDS: hydrOXYzine HCL 25 MG TABLET PO (03:39)
[2024-09-04] MEDS: methADONE HCl 20 MG/2 ML ORAL.CONC 100 MG PO (07:50)
[2024-09-04] MEDS: Lipase/Prot/Amylase 12/38/60K CAPSULE.DR 2 CAP PO ×3 (07:50→17:54)
[2024-09-04 08:00] VITALS: BP 134/80; PULSE 86; RESP 16; TEMP 36.5; O2SAT 94
[2024-09-04] MEDS: Venlafaxine HCl ER 150 MG CAP.ER.24H PO (08:20)
[2024-09-04] MEDS: Multivitamin TABLET 1 TAB PO (08:36)
[2024-09-04] MEDS: guanFACINE HCl ER 1 MG TAB.ER.24H PO (08:36)
[2024-09-04] MEDS: Aspirin Enteric Coated 81 MG TABLET.DR PO (08:37)
[2024-09-04] MEDS: Sulfamethox/Trimeth 800/160 TABLET 1 TAB PO ×2 (08:37→21:05)
[2024-09-04] MEDS: Famotidine 20 MG TABLET PO ×2 (08:37→21:05)
[2024-09-04] MEDS: Acetaminophen 325 MG TABLET 650 MG PO ×2 (08:37→14:06)
[2024-09-04] MEDS: Divalproex Sodium 250 MG TABLET.DR PO ×2 (08:37→21:05)
[2024-09-04] MEDS: clonazePAM 0.5 MG TABLET PO ×2 (08:37→14:06)
[2024-09-04] MEDS: CEFPODOXIME 200 MG 200 EACH PO ×3 (08:39→21:15)
[2024-09-04] MEDS: Sennosides/Docusate Sodium TABLET 2 TAB PO ×2 (08:40→21:05)
[2024-09-04] MEDS: Fluticasone/Umeclidinium/Vilanterol 200/62.5/25 BLST.W.DEV 1 PUFF INHALE (08:41)
[2024-09-04 08:43] VITALS: BP 134/80
[2024-09-04] MEDS: cloNIDine HCL 0.1 MG TABLET PO ×2 (08:43→21:05)
[2024-09-04] MEDS: Hydrocortisone 2.5 % Rectal Cr 30 GM TUBE 1 APPL PR (08:44)
[2024-09-04] MEDS: polyethylene glycoL 3350 17 GM POWD.PACK PO (12:28)
[2024-09-04] MEDS: Lactulose 20 GM/30 ML SOLUTION PO (14:06)
[2024-09-04] MEDS: methADONE HCl 20 MG/2 ML ORAL.CONC 25 MG PO (17:55)
[2024-09-04 21:01] VITALS: BP 130/72; PULSE 82; TEMP 36.6; O2SAT 94
[2024-09-04] MEDS: Nortriptyline HCl 25 MG CAPSULE PO (21:05)
[2024-09-04] MEDS: QUEtiapine Fumarate 25 MG TABLET 75 MG PO (21:10)
--- NOTE | 2024-09-04 22:08 | HO.PSYCHPN ---
Subjective Subjective Date of Service: 09/04/24 Reason For Visit: Hypoxia Interim History: Met with patient; discussed with team Patient remains very anxious about medical condition feeling subsequent depression. Discussed medication regimen and considering making Seroquel p.r.n.; says will remain on Depakote for now. Patient insisting on having a colonoscopy before discharged Mental Status Exam Mental Status Exam Narrative: Pt is alert and oriented; behavior is cooperative, friendly and calm; using nasal cannula for oxygen; dressed in hospital attire, unkempt; mood is described as anxious and affect congruent; eye contact appropriate; Speech is normal rate, volume and prosody and not pressured; no psychomotor agitation/retardation present; thought process is organized and goal directed; Thought content is on tx, medical condition; otherwise pertinent to relevant topics and without any delusional content, paranoid ideations or grandiosity; denies any SI/HI. Denies AVH and there is no evidence of perceptual disturbance. Patients insight and judgment appear intact. Diagnostics Vital Signs (24Hr): Vital Signs - 24 hr 09/04/24 08:00 09/04/24 08:43 09/04/24 21:01 Temperature 97.7 F 97.9 F Pulse Rate 86 82 Respiratory Rate 16 Blood Pressure 134/80 134/80 130/72 Pulse Oximetry 94 94 Oxygen Delivery Method Room Air BMI result Body Mass Index 47.7 Labs 08/31/24 07:52 Medications Medications Current Medications Acetaminophen (Acetaminophen 325 Mg Tablet) 650 mg PO Q6H PRN PRN Reason: Headache/Pain, Scale 1-10 Last Admin: 09/04/24 14:06 Dose: 650 mg Al Hydroxide/Mg Hydroxide (Magnesium Hydrox/Alum Hydrox 30 Ml Oral.Susp) 30 ml PO Q6H PRN PRN Reason: Heartburn/Nausea Albuterol Sulfate (Albuterol Sulfate 90 Mcg 8 Gm Inhaler) 2 puff INHALE RQ4H PRN PRN Reason: Shortness Of Breath Last Admin: 09/02/24 01:34 Dose: 2 puff Lipase/Protease/Amylase (Lipase/Prot/Amylase 12/38/60k Capsule.) [address] [facility] Last Admin: 09/04/24 17:54 Dose: 2 cap Aspirin (Aspirin Enteric Coated 81 Mg Tablet.) [address] [facility] Last Admin: 09/04/24 08:37 Dose: 81 mg Clonazepam (Clonazepam 0.5 Mg Tablet) 0.5 mg PO TID PRN PRN Reason: Anxiety Last Admin: 09/04/24 14:06 Dose: 0.5 mg Clonidine HCl (Clonidine Hcl 0.1 Mg Tablet) 0.1 mg PO BID PRN; Protocol PRN Reason: moderate anxiety Last Admin: 09/02/24 18:30 Dose: 0.1 mg Clonidine HCl (Clonidine Hcl 0.1 Mg Tablet) 0.[address] [facility]; Protocol Last Admin: 09/04/24 21:05 Dose: 0.1 mg Divalproex Sodium (Divalproex Sodium 250 Mg Tablet.) [address] [facility] Last Admin: 09/04/24 21:05 Dose: 250 mg Famotidine (Famotidine 20 Mg Tablet) [address] [facility] Last Admin: 09/04/24 21:05 Dose: 20 mg Ferrous Sulfate (Ferrous Sulfate 324 Mg Tablet.) [address] [facility] Last Admin: 09/04/24 10:10 Dose: Not Given Fluticasone/Umeclidinium/Vilanterol (Fluticasone/Umeclidinium/Vilanterol 200/62.5/25 Blst.W.Dev) [address] [facility] Last Admin: 09/04/24 08:41 Dose: 1 puff Guanfacine HCl (Guanfacine Hcl Er 1 Mg Tab.Er.24h) [address] [facility] Last Admin: 09/04/24 08:36 Dose: 1 mg Hydrocortisone (Hydrocortisone 2.5 % Rectal Cr 30 Gm Tube) [address] [facility] Last Admin: 09/04/24 08:44 Dose: 1 appl Hydroxyzine HCl (Hydroxyzine Hcl 25 Mg Tablet) 25 mg PO Q6H PRN PRN Reason: mild anxiety Last Admin: 09/04/24 03:39 Dose: 25 mg Lactulose (Lactulose 20 Gm/30 Ml Solution) 20 gm PO DAILY PRN PRN Reason: Constipation Last Admin: 09/04/24 14:06 Dose: 20 gm Magnesium Hydroxide (Milk Of Magnesia 30 Ml Oral.Susp) 30 ml PO DAILY PRN PRN Reason: Constipation Magnesium Oxide (Magnesium Oxide 400 Mg Tablet) [address] [facility] Last Admin: 09/04/24 21:05 Dose: Not Given Methadone HCl (Methadone Hcl 20 Mg/2 Ml Oral.Conc) 25 mg PO DAILY@1700 [facility] Last Admin: 09/04/24 17:55 Dose: 25 mg Methadone HCl (Methadone Hcl 20 Mg/2 Ml Oral.Conc) 100 mg PO DAILY@0800 [facility] Last Admin: 09/04/24 07:50 Dose: 100 mg Multivitamins/Vitamin C (Multivitamin Tablet) [address] [facility] Last Admin: 09/04/24 08:36 Dose: 1 tab Pat Own Med ( Cefpodoxime 200 Mg Tablet) [address] [facility] Stop: 09/10/24 17:01 Last Admin: 09/04/24 21:15 Dose: 200 mg Nortriptyline HCl (Nortriptyline Hcl 25 Mg Capsule) [address] [facility] Last Admin: 09/04/24 21:05 Dose: 25 mg Olanzapine (Olanzapine 5 Mg Tablet) 5 mg PO TID PRN PRN Reason: agitation Last Admin: 09/04/24 17:56 Dose: 5 mg Polyethylene Glycol (Polyethylene Glycol 3350 17 Gm Powd.Pack) [address] [facility] Last Admin: 09/04/24 21:06 Dose: Not Given Quetiapine Fumarate (Quetiapine Fumarate 25 Mg Tablet) 75 mg PO BID PRN PRN Reason: more severe anxiety Last Admin: 09/04/24 21:10 Dose: 75 mg Senna/Docusate Sodium (Sennosides/Docusate Sodium Tablet) [address] [facility] Last Admin: 09/04/24 21:05 Dose: 2 tab Trimethoprim/Sulfamethoxazole (Sulfamethox/Trimeth 800/160 Tablet) [address] [facility] Stop: 09/10/24 21:01 Last Admin: 09/04/24 21:05 Dose: 1 tab Venlafaxine HCl (Venlafaxine Hcl Er 150 Mg Cap.Er.24h) [address] 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 Pt was first sent to medical floor for bilateral PNA but was medically cleared and returned to psych. On unit, patient destaturated, transferred back to medical floor for treatment of multifocal pneumonia, sepsis and IV abx. Now cleared again, back on psych floor, now on continually. Pt now with depression and needing retitration of medications. Patient was admitted for ongoing panic attacks on top of daily debilitating anxiety that keeps him from leaving the house or doing much of anything. Patient is grateful that he has remained sober for years, which he attributes to avoiding all the people he knew from those days, but he feels trapped in his house, afraid to go out and see people but also afraid of having a panic attack. 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 Current medication regimen has done little to curb anxiety and panic remains debilitating and has resulted in agoraphobia. Pt agreed to switch med regimen which seems to be proving more effective Additionally, pt on continually ; pulm advising; also had some blood per rectum; H&H stable, GI recs colonoscopy at some point Hospital course: Initial admission patient switched from Prozac to venlafaxine; started on nortriptyline 08/24: Observed laying in bed napping. Patient reports feeling alright ; denied any issues at this time. Pt stated, I didn't sleep too well last night so I'm trying to nap . He reports improved mood since admission. denies SI/HI/VH/AH. Continue current tx plan. 08/25 Patient reports still anxious; no panic however. Agrees to increasing venlafaxine to 150 mg; also discussed Intuniv, risks/side effects and patient agrees to add this for both internal anxiety and help with focus. Discussed medication regimen further and patient is sleeping well and agrees to discontinue mirtazapine to avoid polypharmacy On 08/27 Discharged to medical floor for worsening pneumonia; diagnosed with multifocal pneumonia and now on O2 continuously. Returned to psychiatric unit on 08/31 08/31 patient readmitted to psychiatric floor for continued medication treatment 09/01 Patient remains anxious, depressed, worried about his medical situation. Discussed medical illness. He remains needing O2 but is tolerating 2 L; discussed the importance of doing incentive spirometry and patient said he will do it. Will restart venlafaxine. Discussed why patient is on aspirin which he said I am in bed a lot so they started me on it.. Not restarting omeprazole at this time due to possible interaction with antibiotics, limiting their effectiveness. Instead will treat with Pepcid which does not inhibit effectiveness of antibiotic -Dr. Evans will start Trelegy 09/04 Patient remains very anxious about medical condition feeling subsequent depression. Discussed medication regimen and considering making Seroquel p.r.n.; says will remain on Depakote for now. Patient insisting on having a colonoscopy before discharged -will reach out to GI; will also get home O2 eval Plan: 3 day notice q15min checks O2 continuous; monitor O2 sat Abx per hospitalist/pulm Continue Intuniv for both impulsivity and internal anxiety Will restart and titrate venlafaxine 150 mg (chosen instead of Zoloft since patient has chronic GI issues including nausea/vomiting) Continue nortriptyline 25 mg q.h.s. to help with insomnia since this has less weight gain risk then mirtazapine Continue clonidine 0.1 mg b.i.d. to help with insomnia and anxiety Temporarily increased clonazepam 0.5 mg to t.i.d. p.r.n. (up from b.i.d. p.r.n.); patient remains it sustained sobriety for several years (he had a slip up for one day in February 2024) Discontinued mirtazapine; patient sleeping without it Discontinued Prozac since little benefit from Prozac 60 mg; switch to Effexor which proved more effective -continue depakote for now (pt thinks helps some) -Continue Seroquel for now (pt thinks helps some) Patient educated on: diagnosis, medication risk/benefits and medical condition Informed Consent: understands and further education needed Reason for continued inpatient stay Substantial Risk for: rapid decompensation Time Spent With Patient Time: Total time managing care of this patient today ____ minutes.
[2024-09-05] MEDS: methADONE HCl 20 MG/2 ML ORAL.CONC 100 MG PO (07:45)
[2024-09-05 08:00] VITALS: BP 154/92; PULSE 94; TEMP 36.8; O2SAT 94
[2024-09-05] MEDS: polyethylene glycoL 3350 17 GM POWD.PACK PO (08:18)
[2024-09-05] MEDS: Lipase/Prot/Amylase 12/38/60K CAPSULE.DR 2 CAP PO ×3 (08:19→17:27)
[2024-09-05] MEDS: Sulfamethox/Trimeth 800/160 TABLET 1 TAB PO ×2 (08:20→20:45)
[2024-09-05] MEDS: Sennosides/Docusate Sodium TABLET 2 TAB PO ×2 (08:21→20:44)
[2024-09-05] MEDS: Famotidine 20 MG TABLET PO ×2 (08:22→20:45)
[2024-09-05] MEDS: Ferrous Sulfate 324 MG TABLET.DR PO (08:23)
[2024-09-05] MEDS: Multivitamin TABLET 1 TAB PO (08:23)
[2024-09-05] MEDS: CEFPODOXIME 200 MG 200 EACH PO ×2 (08:24→17:40)
[2024-09-05 08:25] VITALS: BP 154/92
[2024-09-05] MEDS: Aspirin Enteric Coated 81 MG TABLET.DR PO (08:25)
[2024-09-05] MEDS: Divalproex Sodium 250 MG TABLET.DR PO ×2 (08:25→20:45)
[2024-09-05] MEDS: cloNIDine HCL 0.1 MG TABLET PO ×2 (08:25→20:45)
[2024-09-05] MEDS: Hydrocortisone 2.5 % Rectal Cr 30 GM TUBE 1 APPL PR (08:26)
[2024-09-05] MEDS: guanFACINE HCl ER 1 MG TAB.ER.24H PO (08:26)
[2024-09-05] MEDS: Fluticasone/Umeclidinium/Vilanterol 200/62.5/25 BLST.W.DEV 1 PUFF INHALE (08:26)
[2024-09-05] MEDS: Venlafaxine HCl ER 150 MG CAP.ER.24H PO (08:26)
[2024-09-05] MEDS: clonazePAM 0.5 MG TABLET PO ×3 (08:55→20:44)
[2024-09-05] MEDS: OLANZapine 5 MG TABLET PO ×2 (13:22→20:45)
[2024-09-05] MEDS: methADONE HCl 20 MG/2 ML ORAL.CONC 22 MG PO (17:47)
[2024-09-05 19:45] VITALS: BP 135/75; PULSE 91; RESP 16; TEMP 36.3; O2SAT 93
[2024-09-05] MEDS: Nortriptyline HCl 25 MG CAPSULE PO (20:45)
[2024-09-05] MEDS: Magnesium Oxide 400 MG TABLET PO (20:45)
[2024-09-06] MEDS: methADONE HCl 20 MG/2 ML ORAL.CONC 100 MG PO (07:45)
[2024-09-06] MEDS: Fluticasone/Umeclidinium/Vilanterol 200/62.5/25 BLST.W.DEV 1 PUFF INHALE (08:19)
[2024-09-06] MEDS: CEFPODOXIME 200 MG 200 EACH PO ×2 (08:19→19:15)
[2024-09-06] MEDS: polyethylene glycoL 3350 17 GM POWD.PACK PO (08:19)
[2024-09-06] MEDS: Lipase/Prot/Amylase 12/38/60K CAPSULE.DR 2 CAP PO ×3 (08:20→19:14)
[2024-09-06 08:23] VITALS: BP 141/97
[2024-09-06] MEDS: Divalproex Sodium 250 MG TABLET.DR PO ×2 (08:23→21:05)
[2024-09-06] MEDS: Venlafaxine HCl ER 150 MG CAP.ER.24H PO (08:23)
[2024-09-06] MEDS: Sennosides/Docusate Sodium TABLET 2 TAB PO ×2 (08:23→21:05)
[2024-09-06] MEDS: OLANZapine 5 MG TABLET PO ×3 (08:23→21:04)
[2024-09-06] MEDS: Ferrous Sulfate 324 MG TABLET.DR PO (08:23)
[2024-09-06] MEDS: cloNIDine HCL 0.1 MG TABLET PO ×2 (08:23→21:05)
[2024-09-06] MEDS: Multivitamin TABLET 1 TAB PO (08:23)
[2024-09-06] MEDS: guanFACINE HCl ER 1 MG TAB.ER.24H PO (08:23)
[2024-09-06] MEDS: Famotidine 20 MG TABLET PO ×2 (08:23→21:05)
[2024-09-06] MEDS: Aspirin Enteric Coated 81 MG TABLET.DR PO (08:23)
[2024-09-06] MEDS: Sulfamethox/Trimeth 800/160 TABLET 1 TAB PO ×2 (08:24→21:04)
[2024-09-06 08:26] VITALS: BP 141/97; PULSE 91; RESP 16; TEMP 36.6; O2SAT 93
[2024-09-06] MEDS: clonazePAM 0.5 MG TABLET PO ×2 (13:23→21:05)
--- NOTE | 2024-09-06 16:41 | PC.NURSE ---
called placed to nursing supv to receive incentive spirometer for pt use. awaiting delivery. also, contact Dr. ROSALES to obtain O2 orders since they were mistakenly canceled 09/01. Dr ROSALES said he will enter order shortly and stated pt should be on 2L via nasal cannula
[2024-09-06] MEDS: methADONE HCl 20 MG/2 ML ORAL.CONC 22 MG PO (19:31)
[2024-09-06 19:51] VITALS: BP 156/102; PULSE 90; RESP 16; TEMP 36.5; O2SAT 90
[2024-09-06 21:05] VITALS: BP 132/84
[2024-09-06] MEDS: Nortriptyline HCl 25 MG CAPSULE PO (21:05)
[2024-09-07 07:00] VITALS: BMI 46.8
[2024-09-07] MEDS: methADONE HCl 20 MG/2 ML ORAL.CONC 100 MG PO (07:46)
[2024-09-07] MEDS: Lipase/Prot/Amylase 12/38/60K CAPSULE.DR 2 CAP PO ×3 (07:47→17:27)
[2024-09-07 08:00] VITALS: BP 151/87; PULSE 87; RESP 18; TEMP 36.6; O2SAT 93
[2024-09-07] MEDS: polyethylene glycoL 3350 17 GM POWD.PACK PO (08:32)
[2024-09-07] MEDS: clonazePAM 0.5 MG TABLET PO ×3 (08:33→20:22)
[2024-09-07] MEDS: CEFPODOXIME 200 MG 200 EACH PO ×2 (08:33→17:27)
[2024-09-07] MEDS: Fluticasone/Umeclidinium/Vilanterol 200/62.5/25 BLST.W.DEV 1 PUFF INHALE (08:33)
[2024-09-07] MEDS: Venlafaxine HCl ER 150 MG CAP.ER.24H PO (08:34)
[2024-09-07] MEDS: Sulfamethox/Trimeth 800/160 TABLET 1 TAB PO ×2 (08:37→20:21)
[2024-09-07] MEDS: Aspirin Enteric Coated 81 MG TABLET.DR PO (08:37)
[2024-09-07] MEDS: cloNIDine HCL 0.1 MG TABLET PO ×2 (08:37→20:19)
[2024-09-07] MEDS: Famotidine 20 MG TABLET PO ×2 (08:37→20:20)
[2024-09-07] MEDS: Divalproex Sodium 250 MG TABLET.DR PO ×2 (08:38→20:20)
[2024-09-07] MEDS: Sennosides/Docusate Sodium TABLET 2 TAB PO ×2 (08:38→20:22)
[2024-09-07] MEDS: guanFACINE HCl ER 1 MG TAB.ER.24H PO (08:38)
[2024-09-07] MEDS: Multivitamin TABLET 1 TAB PO (08:41)
[2024-09-07] MEDS: Acetaminophen 325 MG TABLET 650 MG PO (12:41)
[2024-09-07] MEDS: OLANZapine 5 MG TABLET PO (12:41)
[2024-09-07] MEDS: Hydrocortisone 2.5 % Rectal Cr 30 GM TUBE 1 APPL PR (13:01)
--- NOTE | 2024-09-07 13:07 | HO.PSYCHPN ---
Subjective Subjective Date of Service: 09/05/24 Reason For Visit: Hypoxia Interim History: Late entry progress note for patient seen on 09/05/2024; discussed with team Remains anxious worried about physical illness however agrees that his anxiety is better; he says he has had no panic attacks at all since making the change to venlafaxine despite all his concern for his medical illness; patient continues to have good bowel movements with no blood in the stool. Mental Status Exam Mental Status Exam Narrative: Pt is alert and oriented; behavior is cooperative, friendly and calm; using nasal cannula for oxygen; dressed in hospital attire, unkempt; mood is described as anxious little better and affect congruent; eye contact appropriate; Speech is normal rate, volume and prosody and not pressured; no psychomotor agitation/retardation present; thought process is organized and goal directed; Thought content is on tx, medical condition; otherwise pertinent to relevant topics and without any delusional content, paranoid ideations or grandiosity; denies any SI/HI. Denies AVH and there is no evidence of perceptual disturbance. Patients insight and judgment appear intact. Diagnostics Vital Signs (24Hr): Vital Signs - 24 hr 09/06/24 19:51 09/06/24 21:05 09/07/24 08:00 Temperature 97.7 F 98 F Pulse Rate 90 87 Respiratory Rate 16 18 Blood Pressure 156/102 H 132/84 151/87 H Pulse Oximetry 90 L 93 Oxygen Delivery Method Nasal Cannula Oxygen Flow Rate 2 BMI result Body Mass Index 47.7 Labs 08/31/24 07:52 Medications Medications Current Medications Acetaminophen (Acetaminophen 325 Mg Tablet) 650 mg PO Q6H PRN PRN Reason: Headache/Pain, Scale 1-10 Last Admin: 09/07/24 12:41 Dose: 650 mg Al Hydroxide/Mg Hydroxide (Magnesium Hydrox/Alum Hydrox 30 Ml Oral.Susp) 30 ml PO Q6H PRN PRN Reason: Heartburn/Nausea Albuterol Sulfate (Albuterol Sulfate 90 Mcg 8 Gm Inhaler) 2 puff INHALE RQ4H PRN PRN Reason: Shortness Of Breath Last Admin: 09/02/24 01:34 Dose: 2 puff Lipase/Protease/Amylase (Lipase/Prot/Amylase 12/38/60k Capsule.) 2 cap PO TIDWM [facility] Last Admin: 09/07/24 12:35 Dose: 2 cap Aspirin (Aspirin Enteric Coated 81 Mg Tablet.) [address] [facility] Last Admin: 09/07/24 08:37 Dose: 81 mg Clonazepam (Clonazepam 0.5 Mg Tablet) 0.5 mg PO TID PRN PRN Reason: Anxiety Last Admin: 09/07/24 12:41 Dose: 0.5 mg Clonidine HCl (Clonidine Hcl 0.1 Mg Tablet) 0.1 mg PO BID PRN; Protocol PRN Reason: moderate anxiety Last Admin: 09/02/24 18:30 Dose: 0.1 mg Clonidine HCl (Clonidine Hcl 0.1 Mg Tablet) 0.[address] [facility]; Protocol Last Admin: 09/07/24 08:37 Dose: 0.1 mg Divalproex Sodium (Divalproex Sodium 250 Mg Tablet.) [address] [facility] Last Admin: 09/07/24 08:38 Dose: 250 mg Famotidine (Famotidine 20 Mg Tablet) [address] [facility] Last Admin: 09/07/24 08:37 Dose: 20 mg Ferrous Sulfate (Ferrous Sulfate 324 Mg Tablet.) [address] [facility] Last Admin: 09/07/24 08:42 Dose: Not Given Fluticasone/Umeclidinium/Vilanterol (Fluticasone/Umeclidinium/Vilanterol 200/62.5/25 Blst.W.Dev) [address] [facility] Last Admin: 09/07/24 08:33 Dose: 1 puff Guanfacine HCl (Guanfacine Hcl Er 1 Mg Tab.Er.24h) [address] [facility] Last Admin: 09/07/24 08:38 Dose: 1 mg Hydrocortisone (Hydrocortisone 2.5 % Rectal Cr 30 Gm Tube) [address] [facility] Last Admin: 09/07/24 13:01 Dose: 1 appl Hydroxyzine HCl (Hydroxyzine Hcl 25 Mg Tablet) 25 mg PO Q6H PRN PRN Reason: mild anxiety Last Admin: 09/04/24 03:39 Dose: 25 mg Lactulose (Lactulose 20 Gm/30 Ml Solution) 20 gm PO DAILY PRN PRN Reason: Constipation Last Admin: 09/04/24 14:06 Dose: 20 gm Magnesium Hydroxide (Milk Of Magnesia 30 Ml Oral.Susp) 30 ml PO DAILY PRN PRN Reason: Constipation Magnesium Oxide (Magnesium Oxide 400 Mg Tablet) [address] [facility] Last Admin: 09/06/24 21:07 Dose: Not Given Methadone HCl (Methadone Hcl 20 Mg/2 Ml Oral.Conc) 100 mg PO DAILY@0800 [facility] Last Admin: 09/07/24 07:46 Dose: 100 mg Methadone HCl (Methadone Hcl 20 Mg/2 Ml Oral.Conc) 22 mg PO DAILY@1700 [facility] Last Admin: 09/06/24 19:31 Dose: 22 mg Multivitamins/Vitamin C (Multivitamin Tablet) [address] [facility] Last Admin: 09/07/24 08:41 Dose: 1 tab Pat Own Med ( Cefpodoxime 200 Mg Tablet) [address] [facility] Stop: 09/10/24 17:01 Last Admin: 09/07/24 08:33 Dose: 200 mg Nortriptyline HCl (Nortriptyline Hcl 25 Mg Capsule) [address] [facility] Last Admin: 09/06/24 21:05 Dose: 25 mg Olanzapine (Olanzapine 5 Mg Tablet) 5 mg PO TID PRN PRN Reason: agitation Last Admin: 09/07/24 12:41 Dose: 5 mg Polyethylene Glycol (Polyethylene Glycol 3350 17 Gm Powd.Pack) [address] [facility] Last Admin: 09/07/24 08:32 Dose: 17 gm Quetiapine Fumarate (Quetiapine Fumarate 25 Mg Tablet) 75 mg PO BID PRN PRN Reason: more severe anxiety Last Admin: 09/04/24 21:10 Dose: 75 mg Senna/Docusate Sodium (Sennosides/Docusate Sodium Tablet) [address] [facility] Last Admin: 09/07/24 08:38 Dose: 2 tab Trimethoprim/Sulfamethoxazole (Sulfamethox/Trimeth 800/160 Tablet) [address] [facility] Stop: 09/10/24 21:01 Last Admin: 09/07/24 08:37 Dose: 1 tab Venlafaxine HCl (Venlafaxine Hcl Er 150 Mg Cap.Er.24h) [address] 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 Pt was first sent to medical floor for bilateral PNA but was medically cleared and returned to psych. On unit, patient destaturated, transferred back to medical floor for treatment of multifocal pneumonia, sepsis and IV abx. Now cleared again, back on psych floor, now on continually. Pt now with depression and needing retitration of medications. Patient was admitted for ongoing panic attacks on top of daily debilitating anxiety that keeps him from leaving the house or doing much of anything. Patient is grateful that he has remained sober for years, which he attributes to avoiding all the people he knew from those days, but he feels trapped in his house, afraid to go out and see people but also afraid of having a panic attack. 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 Current medication regimen has done little to curb anxiety and panic remains debilitating and has resulted in agoraphobia. Pt agreed to switch med regimen which seems to be proving more effective Additionally, pt on continually ; pulm advising; also had some blood per rectum; H&H stable, GI recs colonoscopy at some point Hospital course: Initial admission patient switched from Prozac to venlafaxine; started on nortriptyline 08/24: Observed laying in bed napping. Patient reports feeling alright ; denied any issues at this time. Pt stated, I didn't sleep too well last night so I'm trying to nap . He reports improved mood since admission. denies SI/HI/VH/AH. Continue current tx plan. 08/25 Patient reports still anxious; no panic however. Agrees to increasing venlafaxine to 150 mg; also discussed Intuniv, risks/side effects and patient agrees to add this for both internal anxiety and help with focus. Discussed medication regimen further and patient is sleeping well and agrees to discontinue mirtazapine to avoid polypharmacy On 08/27 Discharged to medical floor for worsening pneumonia; diagnosed with multifocal pneumonia and now on O2 continuously. Returned to psychiatric unit on 08/31 08/31 patient readmitted to psychiatric floor for continued medication treatment 09/01 Patient remains anxious, depressed, worried about his medical situation. Discussed medical illness. He remains needing O2 but is tolerating 2 L; discussed the importance of doing incentive spirometry and patient said he will do it. Will restart venlafaxine. Discussed why patient is on aspirin which he said I am in bed a lot so they started me on it.. Not restarting omeprazole at this time due to possible interaction with antibiotics, limiting their effectiveness. Instead will treat with Pepcid which does not inhibit effectiveness of antibiotic -Dr. Evans will start Trelegy 09/04 Patient remains very anxious about medical condition feeling subsequent depression. Discussed medication regimen and considering making Seroquel p.r.n.; says will remain on Depakote for now. Patient insisting on having a colonoscopy before discharged -will reach out to GI; will also get home O2 eval 09/05 Remains anxious worried about physical illness however agrees that his anxiety is better; he says he has had no panic attacks at all since making the change to venlafaxine despite all his concern for his medical illness; patient continues to have good bowel movements with no blood in the stool Plan: cv q15min checks O2 continuous; monitor O2 sat Abx per hospitalist/pulm Continue Intuniv for both impulsivity and internal anxiety Continue venlafaxine 150 mg (chosen instead of Zoloft since patient has chronic GI issues including nausea/vomiting) Continue nortriptyline 25 mg q.h.s. to help with insomnia since this has less weight gain risk then mirtazapine Continue clonidine 0.1 mg b.i.d. to help with insomnia and anxiety Temporarily increased clonazepam 0.5 mg to t.i.d. p.r.n. (up from b.i.d. p.r.n.); patient remains it sustained sobriety for several years (he had a slip up for one day in February 2024) Discontinued mirtazapine; patient sleeping without it Discontinued Prozac since little benefit from Prozac 60 mg; switch to Effexor which proved more effective -continue depakote for now (pt thinks helps some) -change Seroquel to p.r.n. Patient educated on: diagnosis, medication risk/benefits and medical condition Informed Consent: understands and further education needed Reason for continued inpatient stay Substantial Risk for: rapid decompensation Time Spent With Patient Time: Total time managing care of this patient today ____ minutes.
--- NOTE | 2024-09-07 13:07 | HO.PSYCHPN ---
Subjective Subjective Date of Service: 09/06/24 Reason For Visit: Hypoxia Interim History: Late entry progress note for patient seen on 09/06/2024; discussed with team Patient remains worried about not getting colonoscopy; policy writer sales discussed case with hand sewer shoes who agrees colonoscopies not urgent and can be done as an outpatient. Initially patient did not believe policy writer sales and said he felt other nurses were lying to him about various things. However patient re thought this and agreed that staff and policy writer sales are treating him honestly. Mental Status Exam Mental Status Exam Narrative: Pt is alert and oriented; behavior is cooperative and calm; using nasal cannula for oxygen; dressed in hospital attire, unkempt; mood is described as irritable and affect congruent; eye contact appropriate; Speech is normal rate, volume and prosody and not pressured; no psychomotor agitation/retardation present; thought process is organized and goal directed; Thought content is on tx, medical condition; otherwise pertinent to relevant topics and without any delusional content, paranoid ideations or grandiosity; denies any SI/HI. Denies AVH and there is no evidence of perceptual disturbance. Patients insight and judgment appear intact. Diagnostics Vital Signs (24Hr): Vital Signs - 24 hr 09/06/24 19:51 09/06/24 21:05 09/07/24 08:00 Temperature 97.7 F 98 F Pulse Rate 90 87 Respiratory Rate 16 18 Blood Pressure 156/102 H 132/84 151/87 H Pulse Oximetry 90 L 93 Oxygen Delivery Method Nasal Cannula Oxygen Flow Rate 2 BMI result Body Mass Index 47.7 Labs 08/31/24 07:52 Medications Medications Current Medications Acetaminophen (Acetaminophen 325 Mg Tablet) 650 mg PO Q6H PRN PRN Reason: Headache/Pain, Scale 1-10 Last Admin: 09/07/24 12:41 Dose: 650 mg Al Hydroxide/Mg Hydroxide (Magnesium Hydrox/Alum Hydrox 30 Ml Oral.Susp) 30 ml PO Q6H PRN PRN Reason: Heartburn/Nausea Albuterol Sulfate (Albuterol Sulfate 90 Mcg 8 Gm Inhaler) 2 puff INHALE RQ4H PRN PRN Reason: Shortness Of Breath Last Admin: 09/02/24 01:34 Dose: 2 puff Lipase/Protease/Amylase (Lipase/Prot/Amylase 12/38/60k Capsule.) 2 cap PO TIDWM SHEELA Last Admin: 09/07/24 12:35 Dose: 2 cap Aspirin (Aspirin Enteric Coated 81 Mg Tablet.) 81 mg PO DAILY [facility] Last Admin: 09/07/24 08:37 Dose: 81 mg Clonazepam (Clonazepam 0.5 Mg Tablet) 0.5 mg PO TID PRN PRN Reason: Anxiety Last Admin: 09/07/24 12:41 Dose: 0.5 mg Clonidine HCl (Clonidine Hcl 0.1 Mg Tablet) 0.1 mg PO BID PRN; Protocol PRN Reason: moderate anxiety Last Admin: 09/02/24 18:30 Dose: 0.1 mg Clonidine HCl (Clonidine Hcl 0.1 Mg Tablet) 0.1 mg PO BID [facility]; Protocol Last Admin: 09/07/24 08:37 Dose: 0.1 mg Divalproex Sodium (Divalproex Sodium 250 Mg Tablet.) 250 mg PO BID [facility] Last Admin: 09/07/24 08:38 Dose: 250 mg Famotidine (Famotidine 20 Mg Tablet) 20 mg PO BID [facility] Last Admin: 09/07/24 08:37 Dose: 20 mg Ferrous Sulfate (Ferrous Sulfate 324 Mg Tablet.) 324 mg PO DAILY [facility] Last Admin: 09/07/24 08:42 Dose: Not Given Fluticasone/Umeclidinium/Vilanterol (Fluticasone/Umeclidinium/Vilanterol 200/62.5/25 Blst.W.Dev) 1 puff INHALE RDAILY [facility] Last Admin: 09/07/24 08:33 Dose: 1 puff Guanfacine HCl (Guanfacine Hcl Er 1 Mg Tab.Er.24h) 1 mg PO DAILY [facility] Last Admin: 09/07/24 08:38 Dose: 1 mg Hydrocortisone (Hydrocortisone 2.5 % Rectal Cr 30 Gm Tube) 1 appl [place] DAILY [facility] Last Admin: 09/07/24 13:01 Dose: 1 appl Hydroxyzine HCl (Hydroxyzine Hcl 25 Mg Tablet) 25 mg PO Q6H PRN PRN Reason: mild anxiety Last Admin: 09/04/24 03:39 Dose: 25 mg Lactulose (Lactulose 20 Gm/30 Ml Solution) 20 gm PO DAILY PRN PRN Reason: Constipation Last Admin: 09/04/24 14:06 Dose: 20 gm Magnesium Hydroxide (Milk Of Magnesia 30 Ml Oral.Susp) 30 ml PO DAILY PRN PRN Reason: Constipation Magnesium Oxide (Magnesium Oxide 400 Mg Tablet) 400 mg PO BEDTIME [facility] Last Admin: 09/06/24 21:07 Dose: Not Given Methadone HCl (Methadone Hcl 20 Mg/2 Ml Oral.Conc) 100 mg PO DAILY@0800 [facility] Last Admin: 09/07/24 07:46 Dose: 100 mg Methadone HCl (Methadone Hcl 20 Mg/2 Ml Oral.Conc) 22 mg PO DAILY@1700 [facility] Last Admin: 09/06/24 19:31 Dose: 22 mg Multivitamins/Vitamin C (Multivitamin Tablet) 1 tab PO DAILY [facility] Last Admin: 09/07/24 08:41 Dose: 1 tab Pat Own Med ( Cefpodoxime 200 Mg Tablet) 200 mg PO BIDWM [facility] Stop: 09/10/24 17:01 Last Admin: 09/07/24 08:33 Dose: 200 mg Nortriptyline HCl (Nortriptyline Hcl 25 Mg Capsule) 25 mg PO BEDTIME [facility] Last Admin: 09/06/24 21:05 Dose: 25 mg Olanzapine (Olanzapine 5 Mg Tablet) 5 mg PO TID PRN PRN Reason: agitation Last Admin: 09/07/24 12:41 Dose: 5 mg Polyethylene Glycol (Polyethylene Glycol 3350 17 Gm Powd.Pack) 17 gm PO BID [facility] Last Admin: 09/07/24 08:32 Dose: 17 gm Quetiapine Fumarate (Quetiapine Fumarate 25 Mg Tablet) 75 mg PO BID PRN PRN Reason: more severe anxiety Last Admin: 09/04/24 21:10 Dose: 75 mg Senna/Docusate Sodium (Sennosides/Docusate Sodium Tablet) 2 tab PO BID [facility] Last Admin: 09/07/24 08:38 Dose: 2 tab Trimethoprim/Sulfamethoxazole (Sulfamethox/Trimeth 800/160 Tablet) 1 tab PO BID [facility] Stop: 09/10/24 21:01 Last Admin: 09/07/24 08:37 Dose: 1 tab Venlafaxine HCl (Venlafaxine Hcl Er 150 Mg Cap.Er.24h) 150 mg PO DAILY [facility] Last Admin: 09/07/24 08:34 Dose: 150 mg Allergies Allergies Allergy/AdvReac Type Severity Reaction Status Date / Time Penicillins [PENICILLINS] Allergy Unknown RASH Verified 08/15/24 09:34 Assessment & Plan Assessment & Plan (1) MDD (major depressive disorder), recurrent episode, moderate: Status: Acute Code(s): F33.1 - Major depressive disorder, recurrent, moderate Plan HPI: 39 yo male with hx of anxiety, panic, agoraphobia, depression; substance abuse in sustained remission, on methadone who first presented for SI (though no plan), in face of ongoing, debilitating panic/anxiety. Pt was first sent to medical floor for bilateral PNA but was medically cleared and returned to psych. On unit, patient destaturated, transferred back to medical floor for treatment of multifocal pneumonia, sepsis and IV abx. Now cleared again, back on psych floor, now on continually. Pt now with depression and needing retitration of medications. Patient was admitted for ongoing panic attacks on top of daily debilitating anxiety that keeps him from leaving the house or doing much of anything. Patient is grateful that he has remained sober for years, which he attributes to avoiding all the people he knew from those days, but he feels trapped in his house, afraid to go out and see people but also afraid of having a panic attack. Medication changes made it prior to worsening pneumonia were effective; will retitrate Formulation/clinical reasoning: hx of anxiety, panic, agoraphobia, depression; policy writer sales reviewed hx and pt denies manic episodes. Current medication regimen has done little to curb anxiety and panic remains debilitating and has resulted in agoraphobia. Pt agreed to switch med regimen which seems to be proving more effective Additionally, pt on continually ; pulm advising; also had some blood per rectum; H&H stable, GI recs colonoscopy at some point Hospital course: Initial admission patient switched from Prozac to venlafaxine; started on nortriptyline 08/24: Observed laying in bed napping. Patient reports feeling alright ; denied any issues at this time. Pt stated, I didn't sleep too well last night so I'm trying to nap . He reports improved mood since admission. denies SI/HI/VH/AH. Continue current tx plan. 08/25 Patient reports still anxious; no panic however. Agrees to increasing venlafaxine to 150 mg; also discussed Intuniv, risks/side effects and patient agrees to add this for both internal anxiety and help with focus. Discussed medication regimen further and patient is sleeping well and agrees to discontinue mirtazapine to avoid polypharmacy On 08/27 Discharged to medical floor for worsening pneumonia; diagnosed with multifocal pneumonia and now on O2 continuously. Returned to psychiatric unit on 08/31 08/31 patient readmitted to psychiatric floor for continued medication treatment 09/01 Patient remains anxious, depressed, worried about his medical situation. Discussed medical illness. He remains needing O2 but is tolerating 2 L; discussed the importance of doing incentive spirometry and patient said he will do it. Will restart venlafaxine. Discussed why patient is on aspirin which he said I am in bed a lot so they started me on it.. Not restarting omeprazole at this time due to possible interaction with antibiotics, limiting their effectiveness. Instead will treat with Pepcid which does not inhibit effectiveness of antibiotic -Dr. Evans will start Trelegy 09/04 Patient remains very anxious about medical condition feeling subsequent depression. Discussed medication regimen and considering making Seroquel p.r.n.; says will remain on Depakote for now. Patient insisting on having a colonoscopy before discharged -will reach out to GI; will also get home O2 eval 09/05 Remains anxious worried about physical illness however agrees that his anxiety is better; he says he has had no panic attacks at all since making the change to venlafaxine despite all his concern for his medical illness; patient continues to have good bowel movements with no blood in the stool 09/06 continue treatment plan; discussed case with gastroenterology who agrees that colonoscopy is not urgent and can be done as outpatient Plan: cv q15min checks O2 continuous; monitor O2 sat Abx per hospitalist/pulm Continue Intuniv for both impulsivity and internal anxiety Continue venlafaxine 150 mg (chosen instead of Zoloft since patient has chronic GI issues including nausea/vomiting) Continue nortriptyline 25 mg q.h.s. to help with insomnia since this has less weight gain risk then mirtazapine Continue clonidine 0.1 mg b.i.d. to help with insomnia and anxiety Temporarily increased clonazepam 0.5 mg to t.i.d. p.r.n. (up from b.i.d. p.r.n.); patient remains it sustained sobriety for several years (he had a slip up for one day in February 2024) Discontinued mirtazapine; patient sleeping without it Discontinued Prozac since little benefit from Prozac 60 mg; switch to Effexor which proved more effective -continue depakote for now (pt thinks helps some) -change Seroquel to p.r.n.me) -Continue Seroquel for now (pt thinks helps some) Patient educated on: diagnosis, medication risk/benefits and medical condition Informed Consent: understands Reason for continued inpatient stay Substantial Risk for: stable for discharge Time Spent With Patient Time: Total time managing care of this patient today ____ minutes.
--- NOTE | 2024-09-07 16:04 | PM.CNPUL ---
History of Present Illness History of Present Illness Consult date: 09/07/24 Chief complaint: Hypoxia Narrative: 39-year-old gentleman with underlying asthma, substance abuse on methadone, bipolar disorder, currently undergoing psychiatric hospitalization called respiratory medical hospitalization for MRSA pneumonia and hypoxia. Of note, patient has no nocturnal hypoxemia secondary to underlying obstructive sleep apnea with inability tolerate CPAP therapy. Patient has been treated initially with IV vancomycin, now switch to p.o. Bactrim with slow improvement in productive component of his cough, however still with significant hypoxia requiring 2 L of continuous flow to maintain normal oximetry at rest during the day. Review of Systems Constitutional: Constitutional: Denies daytime sleepiness, Denies excessive sweating, Denies fatigue, Denies fever(s), Denies lethargy, Denies malaise, Denies night sweats, Denies snoring and Denies weight loss Eyes: Eyes: Denies blurry vision and Denies itchy eyes ENT: Denies nasal congestion, Denies post nasal drip, Denies sinus pain, Denies sinus pressure and Denies other ( Thrush) Cardiovascular: Cardiovascular: Denies chest pain, Denies pedal edema, Denies dyspnea, Denies orthopnea and Denies paroxysmal nocturnal dyspnea Respiratory: Respiratory: Denies cough, Denies hemoptysis, Denies excessive phlegm production, Denies dyspnea, Denies snoring and Denies wheezing Gastrointestinal: Gastrointestinal: Denies abdominal pain and Denies heartburn Musculoskeletal: Musculoskeletal: Denies myalgias, Denies arthralgias and Denies joint swelling Integumentary/Breasts: Skin/Breast: Denies rash Neurologic: Denies memory loss and Denies seizure-like activity Psychiatric: Psychiatric: Denies abnormal sleep pattern, Denies anxiety and Denies memory loss Endocrine: Endocrine: Denies excessive sweating, Denies fatigue and Denies heat intolerance Hematologic/Lymphatic: Hematologic/Lymphatic: Denies easy bruising Allergic/Immunologic: Allergic/Immunologic: Denies itchy eyes, Denies seasonal rhinorrhea and Denies wheezing PMFSH Past Medical History Medical History (Updated 09/07/24 @ 16:06 by Sreekanth Nichols MD) Acute exacerbation of moderate persistent extrinsic asthma Pneumonitis Opioid use disorder, severe, in early remission Suicidal ideation Exocrine pancreatic insufficiency Polysubstance abuse No known health problems Social History Social History Household Members: Family Housing: House Do you presently have visiting nurse or other home services: No Alcohol intake: former Comment: sitter at bedside Patient Tobacco Use Status: Former Tobacco user Substance Use Type: Marijuana Advance Directives Date on File: 03/15/24 service: No Sexual orientation: Straight/Heterosexual Meds Allergies Allergy/AdvReac Type Severity Reaction Status Date / Time Penicillins [PENICILLINS] Allergy Unknown RASH Verified 08/15/24 09:34 Active Medications: Current Medications Acetaminophen (Acetaminophen 325 Mg Tablet) 650 mg PO Q6H PRN PRN Reason: Headache/Pain, Scale 1-10 Last Admin: 09/07/24 12:41 Dose: 650 mg Al Hydroxide/Mg Hydroxide (Magnesium Hydrox/Alum Hydrox 30 Ml Oral.Susp) 30 ml PO Q6H PRN PRN Reason: Heartburn/Nausea Albuterol Sulfate (Albuterol Sulfate 90 Mcg 8 Gm Inhaler) 2 puff INHALE RQ4H PRN PRN Reason: Shortness Of Breath Last Admin: 09/02/24 01:34 Dose: 2 puff Lipase/Protease/Amylase (Lipase/Prot/Amylase 12/38/60k Capsule.) 2 cap PO TIDWM [facility] Last Admin: 09/07/24 12:35 Dose: 2 cap Aspirin (Aspirin Enteric Coated 81 Mg Tablet.) 81 mg PO DAILY [facility] Last Admin: 09/07/24 08:37 Dose: 81 mg Clonazepam (Clonazepam 0.5 Mg Tablet) 0.5 mg PO TID PRN PRN Reason: Anxiety Last Admin: 09/07/24 12:41 Dose: 0.5 mg Clonidine HCl (Clonidine Hcl 0.1 Mg Tablet) 0.1 mg PO BID PRN; Protocol PRN Reason: moderate anxiety Last Admin: 09/02/24 18:30 Dose: 0.1 mg Clonidine HCl (Clonidine Hcl 0.1 Mg Tablet) 0.1 mg PO BID [facility] [place]; Protocol Last Admin: 09/07/24 08:37 Dose: 0.1 mg Divalproex Sodium (Divalproex Sodium 250 Mg Tablet.) 250 mg PO BID [facility] [place] Last Admin: 09/07/24 08:38 Dose: 250 mg Famotidine (Famotidine 20 Mg Tablet) 20 mg PO BID [facility] [place] Last Admin: 09/07/24 08:37 Dose: 20 mg Ferrous Sulfate (Ferrous Sulfate 324 Mg Tablet.Dr) 324 mg PO DAILY [facility] Last Admin: 09/07/24 08:42 Dose: Not Given Fluticasone/Umeclidinium/Vilanterol (Fluticasone/Umeclidinium/Vilanterol 200/62.5 Blst.W.Dev) 1 puff INHALE RDAILY [facility] [place] Last Admin: 09/07/24 08:33 Dose: 1 puff Furosemide (Furosemide 40 Mg Tablet) 40 mg PO DAILY [facility] [place]; Protocol Guanfacine HCl (Guanfacine Hcl Er 1 Mg Tab.Er.24h) 1 mg PO DAILY [facility] Last Admin: 09/07/24 08:38 Dose: 1 mg Hydrocortisone (Hydrocortisone 2.5 % Rectal Cr 30 Gm Tube) 1 appl [place] DAILY [facility] [place] Last Admin: 09/07/24 13:01 Dose: 1 appl Hydroxyzine HCl (Hydroxyzine Hcl 25 Mg Tablet) 25 mg PO Q6H PRN PRN Reason: mild anxiety Last Admin: 09/04/24 03:39 Dose: 25 mg Lactulose (Lactulose 20 Gm/30 Ml Solution) 20 gm PO DAILY PRN PRN Reason: Constipation Last Admin: 09/04/24 14:06 Dose: 20 gm Magnesium Hydroxide (Milk Of Magnesia 30 Ml Oral.Susp) 30 ml PO DAILY PRN PRN Reason: Constipation Magnesium Oxide (Magnesium Oxide 400 Mg Tablet) 400 mg PO BEDTIME [facility] [place] Last Admin: 09/06/24 21:07 Dose: Not Given Methadone HCl (Methadone Hcl 20 Mg/2 Ml Oral.Conc) 100 mg PO DAILY@0800 [facility] [place] Last Admin: 09/07/24 07:46 Dose: 100 mg Methadone HCl (Methadone Hcl 20 Mg/2 Ml Oral.Conc) 22 mg PO DAILY@1700 [facility] [place] Last Admin: 09/06/24 19:31 Dose: 22 mg Multivitamins/Vitamin C (Multivitamin Tablet) 1 tab PO DAILY [facility] Last Admin: 09/07/24 08:41 Dose: 1 tab Pat Own Med ( Cefpodoxime 200 Mg Tablet) 200 mg PO BIDWM [facility] Stop: 09/10/24 17:01 Last Admin: 09/07/24 08:33 Dose: 200 mg Nortriptyline HCl (Nortriptyline Hcl 25 Mg Capsule) 25 mg PO BEDTIME [facility] Last Admin: 09/06/24 21:05 Dose: 25 mg Olanzapine (Olanzapine 5 Mg Tablet) 5 mg PO TID PRN PRN Reason: agitation Last Admin: 09/07/24 12:41 Dose: 5 mg Polyethylene Glycol (Polyethylene Glycol 3350 17 Gm Powd.Pack) 17 gm PO BID [facility] [place] Last Admin: 09/07/24 08:32 Dose: 17 gm Quetiapine Fumarate (Quetiapine Fumarate 25 Mg Tablet) 75 mg PO BID PRN PRN Reason: more severe anxiety Last Admin: 09/04/24 21:10 Dose: 75 mg Senna/Docusate Sodium (Sennosides/Docusate Sodium Tablet) 2 tab PO BID [facility] [place] Last Admin: 09/07/24 08:38 Dose: 2 tab Trimethoprim/Sulfamethoxazole (Sulfamethox/Trimeth 800/160 Tablet) 1 tab PO BID [facility] [place] Stop: 09/14/24 09:01 Last Admin: 09/07/24 08:37 Dose: 1 tab Venlafaxine HCl (Venlafaxine Hcl Er 150 Mg Cap.Er.24h) 150 mg PO DAILY [facility] [place] Last Admin: 09/07/24 08:34 Dose: 150 mg Home Medications ?Medication ?Instructions ?Recorded ?Confirmed ?Last Taken ?Type aspirin 81 mg tablet,delayed 81 mg PO DAILY 09/02/23 08/30/24 08/30/24 08:00 History release mirtazapine 15 mg tablet 15 mg PO BEDTIME 09/02/23 08/31/24 08/14/24 History fluticasone furoate 200 1 inh inhalation DAILY 08/15/24 08/31/24 08/22/24 History mcg-vilanterol 25 mcg/dose inhalation powder (Breo Ellipta) fluoxetine 20 mg capsule 60 mg PO DAILY 08/16/24 08/31/24 08/14/24 History cefpodoxime 200 mg tablet 200 mg PO BID 08/30/24 08/30/24 Unknown History Physical Exam Vital Signs: Vital Signs: Last Vital Signs Temp 98 F 09/07/24 08:00 Pulse 87 09/07/24 08:00 Resp 18 09/07/24 08:00 BP 151/87 H 09/07/24 08:00 Pulse Ox 93 09/07/24 08:00 O2 Del Method Nasal Cannula 09/06/24 19:51 O2 Flow Rate 2 09/06/24 19:51 FiO2 94 09/05/24 08:00 BMI result Body Mass Index 46.8 Const: General: no acute distress and alert Nutritional Appearance: obese Orientation/consciousness: Other orientation findings ( oriented) HEENT: Head: Yes atraumatic Eyes: General: appearance normal, both eyes and all related structures Sclerae: sclerae normal EOM: EOMs intact bilaterally Neck: Neck: Yes supple Lymphatic: no lymphadenopathy noted Resp: Effort & Inspection: normal respiratory effort and no use of accessory muscles Auscultation: clear to auscultation bilaterally Cardio: Rate: regular rate Rhythm: regular rhythm Heart sounds: no gallops, no murmurs and no rubs Skin: General skin exam: other ( warm) Extrem: General: No clubbing, No cyanosis and No edema Results Laboratory Findings 08/31/24 07:52 Abnormal lab findings: Abnormal Labs 08/31/24 07:52 Carbon Dioxide 31 H BUN 8 L Random Glucose 116 H Albumin 3.4 L HDL Cholesterol 37 L Assessment and Plan (1) Acute respiratory failure with hypoxia: Status: Acute (2) Multifocal pneumonia: Status: Acute (3) Pulmonary edema: Status: Acute Plan Impression: 39-year-old gentleman with underlying morbid obesity, TYSON with inability to tolerate CPAP, nocturnal hypoxemia, now also with what appears to be multifocal MRSA pneumonia and pulmonary edema. Recommendation: Agree with current antibiotic regimen of Bactrim twice a day. Consider discontinuation of cefpodoxime. Consider empiric diuresis with Lasix 40 mg daily. Procedures Date of Service Date of Service: 09/07/24
[2024-09-07] MEDS: methADONE HCl 20 MG/2 ML ORAL.CONC 22 MG PO (16:32)
[2024-09-07 16:33] VITALS: BP 130/72
[2024-09-07] MEDS: Furosemide 40 MG TABLET PO (16:33)
[2024-09-07 20:00] VITALS: BP 130/85; TEMP 36.6; O2SAT 93
[2024-09-07] MEDS: Nortriptyline HCl 25 MG CAPSULE PO (20:21)
[2024-09-08] MEDS: methADONE HCl 20 MG/2 ML ORAL.CONC 100 MG PO (07:47)
[2024-09-08] MEDS: clonazePAM 0.5 MG TABLET PO ×3 (07:49→20:47)
[2024-09-08 08:00] VITALS: BP 138/87; PULSE 90; RESP 16; TEMP 36.2; O2SAT 91
[2024-09-08] MEDS: polyethylene glycoL 3350 17 GM POWD.PACK PO ×2 (08:34→20:35)
[2024-09-08] MEDS: Fluticasone/Umeclidinium/Vilanterol 200/62.5/25 BLST.W.DEV 1 PUFF INHALE (08:35)
[2024-09-08] MEDS: CEFPODOXIME 200 MG 200 EACH PO ×2 (08:35→17:06)
[2024-09-08] MEDS: Furosemide 40 MG TABLET PO (08:35)
[2024-09-08] MEDS: Divalproex Sodium 250 MG TABLET.DR PO ×2 (08:36→20:38)
[2024-09-08] MEDS: Venlafaxine HCl ER 150 MG CAP.ER.24H PO (08:36)
[2024-09-08] MEDS: Multivitamin TABLET 1 TAB PO (08:36)
[2024-09-08] MEDS: Sennosides/Docusate Sodium TABLET 2 TAB PO ×2 (08:36→20:37)
[2024-09-08] MEDS: guanFACINE HCl ER 1 MG TAB.ER.24H PO (08:36)
[2024-09-08] MEDS: Aspirin Enteric Coated 81 MG TABLET.DR PO (08:36)
[2024-09-08] MEDS: Sulfamethox/Trimeth 800/160 TABLET 1 TAB PO ×2 (08:37→20:36)
[2024-09-08] MEDS: Lipase/Prot/Amylase 12/38/60K CAPSULE.DR 2 CAP PO ×3 (08:37→17:06)
[2024-09-08] MEDS: Famotidine 20 MG TABLET PO ×2 (08:41→20:37)
[2024-09-08] MEDS: cloNIDine HCL 0.1 MG TABLET PO ×2 (08:42→20:36)
[2024-09-08] MEDS: Hydrocortisone 2.5 % Rectal Cr 30 GM TUBE 1 APPL PR (08:42)
--- NOTE | 2024-09-08 12:17 | HO.PSYCHPN ---
Subjective Subjective Date of Service: 09/07/24 Reason For Visit: Hypoxia Interim History: Late entry note for patient seen on 09/07; Met with patient; discussed with team; discussed case with Dr. Nichols Patient feeling a little better; discussed medical illness and being started on Lasix with which he agrees Mental Status Exam Mental Status Exam Narrative: Pt is alert and oriented; behavior is cooperative, friendly and calm and out of the room more; using nasal cannula for oxygen; dressed in hospital attire, adequate grooming; mood is described as little better and affect congruent; eye contact appropriate; Speech is normal rate, volume and prosody and not pressured; no psychomotor agitation/retardation present; thought process is organized and goal directed; Thought content is on tx, medical condition; otherwise pertinent to relevant topics and without any delusional content, paranoid ideations or grandiosity; denies any SI/HI. Denies AVH and there is no evidence of perceptual disturbance. Patients insight and judgment appear intact. Diagnostics Vital Signs (24Hr): Vital Signs - 24 hr 09/07/24 16:33 09/07/24 20:00 09/08/24 08:00 Temperature 97.8 F 97.1 F Pulse Rate 90 Respiratory Rate 16 Blood Pressure 130/72 130/85 138/87 Pulse Oximetry 93 91 L Oxygen Delivery Method Nasal Cannula Oxygen Flow Rate 2 BMI result Body Mass Index 46.8 Labs 08/31/24 07:52 Medications Medications Current Medications Acetaminophen (Acetaminophen 325 Mg Tablet) 650 mg PO Q6H PRN PRN Reason: Headache/Pain, Scale 1-10 Last Admin: 09/07/24 12:41 Dose: 650 mg Al Hydroxide/Mg Hydroxide (Magnesium Hydrox/Alum Hydrox 30 Ml Oral.Susp) 30 ml PO Q6H PRN PRN Reason: Heartburn/Nausea Albuterol Sulfate (Albuterol Sulfate 90 Mcg 8 Gm Inhaler) 2 puff INHALE RQ4H PRN PRN Reason: Shortness Of Breath Last Admin: 09/02/24 01:34 Dose: 2 puff Lipase/Protease/Amylase (Lipase/Prot/Amylase 12/38/60k Capsule.) 2 cap PO TIDWM [facility] Last Admin: 09/08/24 08:37 Dose: 2 cap Aspirin (Aspirin Enteric Coated 81 Mg Tablet.) 81 mg PO DAILY [facility] Last Admin: 09/08/24 08:36 Dose: 81 mg Clonazepam (Clonazepam 0.5 Mg Tablet) 0.5 mg PO TID PRN PRN Reason: Anxiety Last Admin: 09/08/24 07:49 Dose: 0.5 mg Clonidine HCl (Clonidine Hcl 0.1 Mg Tablet) 0.1 mg PO BID PRN; Protocol PRN Reason: moderate anxiety Last Admin: 09/02/24 18:30 Dose: 0.1 mg Clonidine HCl (Clonidine Hcl 0.1 Mg Tablet) 0.1 mg PO BID [facility]; Protocol Last Admin: 09/08/24 08:42 Dose: 0.1 mg Divalproex Sodium (Divalproex Sodium 250 Mg Tablet.Dr) 250 mg PO BID [facility] Last Admin: 09/08/24 08:36 Dose: 250 mg Famotidine (Famotidine 20 Mg Tablet) 20 mg PO BID [facility] Last Admin: 09/08/24 08:41 Dose: 20 mg Ferrous Sulfate (Ferrous Sulfate 324 Mg Tablet.) 324 mg PO DAILY [facility] Last Admin: 09/08/24 08:41 Dose: Not Given Fluticasone/Umeclidinium/Vilanterol (Fluticasone/Umeclidinium/Vilanterol 200/62.5/25 Blst.W.Dev) 1 puff INHALE RDAILY [facility] Last Admin: 09/08/24 08:35 Dose: 1 puff Furosemide (Furosemide 40 Mg Tablet) 40 mg PO DAILY [facility]; Protocol Last Admin: 09/08/24 08:35 Dose: 40 mg Guanfacine HCl (Guanfacine Hcl Er 1 Mg Tab.Er.24h) 1 mg PO DAILY [facility] Last Admin: 09/08/24 08:36 Dose: 1 mg Hydrocortisone (Hydrocortisone 2.5 % Rectal Cr 30 Gm Tube) 1 appl [place] DAILY [facility] Last Admin: 09/08/24 08:42 Dose: 1 appl Hydroxyzine HCl (Hydroxyzine Hcl 25 Mg Tablet) 25 mg PO Q6H PRN PRN Reason: mild anxiety Last Admin: 09/04/24 03:39 Dose: 25 mg Lactulose (Lactulose 20 Gm/30 Ml Solution) 20 gm PO DAILY PRN PRN Reason: Constipation Last Admin: 09/04/24 14:06 Dose: 20 gm Magnesium Hydroxide (Milk Of Magnesia 30 Ml Oral.Susp) 30 ml PO DAILY PRN PRN Reason: Constipation Magnesium Oxide (Magnesium Oxide 400 Mg Tablet) 400 mg PO BEDTIME [facility] Last Admin: 09/07/24 20:20 Dose: Not Given Methadone HCl (Methadone Hcl 20 Mg/2 Ml Oral.Conc) 100 mg PO DAILY@0800 [facility] Last Admin: 09/08/24 07:47 Dose: 100 mg Methadone HCl (Methadone Hcl 20 Mg/2 Ml Oral.Conc) 22 mg PO DAILY@1700 [facility] Last Admin: 09/07/24 16:32 Dose: 22 mg Multivitamins/Vitamin C (Multivitamin Tablet) 1 tab PO DAILY [facility] Last Admin: 09/08/24 08:36 Dose: 1 tab Pat Own Med ( Cefpodoxime 200 Mg Tablet) 200 mg PO BIDWM [facility] Stop: 09/10/24 17:01 Last Admin: 09/08/24 08:35 Dose: 200 mg Nortriptyline HCl (Nortriptyline Hcl 25 Mg Capsule) 25 mg PO BEDTIME [facility] Last Admin: 09/07/24 20:21 Dose: 25 mg Olanzapine (Olanzapine 5 Mg Tablet) 5 mg PO TID PRN PRN Reason: agitation Last Admin: 09/07/24 12:41 Dose: 5 mg Polyethylene Glycol (Polyethylene Glycol 3350 17 Gm Powd.Pack) 17 gm PO BID [facility] Last Admin: 09/08/24 08:34 Dose: 17 gm Quetiapine Fumarate (Quetiapine Fumarate 25 Mg Tablet) 75 mg PO BID PRN PRN Reason: more severe anxiety Last Admin: 09/04/24 21:10 Dose: 75 mg Senna/Docusate Sodium (Sennosides/Docusate Sodium Tablet) 2 tab PO BID [facility] Last Admin: 09/08/24 08:36 Dose: 2 tab Trimethoprim/Sulfamethoxazole (Sulfamethox/Trimeth 800/160 Tablet) 1 tab PO BID [facility] Stop: 09/14/24 09:01 Last Admin: 09/08/24 08:37 Dose: 1 tab Venlafaxine HCl (Venlafaxine Hcl Er 150 Mg Cap.Er.24h) 150 mg PO DAILY [facility] Last Admin: 09/08/24 08:36 Dose: 150 mg Allergies Allergies Allergy/AdvReac Type Severity Reaction Status Date / Time Penicillins [PENICILLINS] Allergy Unknown RASH Verified 08/15/24 09:34 Assessment & Plan Assessment & Plan (1) MDD (major depressive disorder), recurrent episode, moderate: Status: Acute Code(s): F33.1 - Major depressive disorder, recurrent, moderate (2) Anxiety: Status: Acute Code(s): F41.9 - Anxiety disorder, unspecified (3) Agoraphobia: Status: Acute Code(s): F40.00 - Agoraphobia, unspecified (4) Opioid use disorder: Status: Acute Code(s): F11.90 - Opioid use, unspecified, uncomplicated (5) Multifocal pneumonia: Status: Acute Code(s): J18.9 - Pneumonia, unspecified organism Plan HPI: 39 yo male with hx of anxiety, panic, agoraphobia, depression; substance abuse in sustained remission, on methadone who first presented for SI (though no plan), in face of ongoing, debilitating panic/anxiety. Pt was first sent to medical floor for bilateral PNA but was medically cleared and returned to psych. On unit, patient destaturated, transferred back to medical floor for treatment of multifocal pneumonia, sepsis and IV abx. Now cleared again, back on psych floor, now on continually. Pt now with depression and needing retitration of medications. Patient was admitted for ongoing panic attacks on top of daily debilitating anxiety that keeps him from leaving the house or doing much of anything. Patient is grateful that he has remained sober for years, which he attributes to avoiding all the people he knew from those days, but he feels trapped in his house, afraid to go out and see people but also afraid of having a panic attack. 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 Current medication regimen has done little to curb anxiety and panic remains debilitating and has resulted in agoraphobia. Pt agreed to switch med regimen which seems to be proving more effective Additionally, pt on continually 02; pulm advising; also had some blood per rectum; H&H stable, GI recs colonoscopy at some point Hospital course: Initial admission patient switched from Prozac to venlafaxine; started on nortriptyline 08/24: Observed laying in bed napping. Patient reports feeling alright ; denied any issues at this time. Pt stated, I didn't sleep too well last night so I'm trying to nap . He reports improved mood since admission. denies SI/HI/VH/AH. Continue current tx plan. 08/25 Patient reports still anxious; no panic however. Agrees to increasing venlafaxine to 150 mg; also discussed Intuniv, risks/side effects and patient agrees to add this for both internal anxiety and help with focus. Discussed medication regimen further and patient is sleeping well and agrees to discontinue mirtazapine to avoid polypharmacy On 08/27 Discharged to medical floor for worsening pneumonia; diagnosed with multifocal pneumonia and now on O2 continuously. Returned to psychiatric unit on 08/31 08/31 patient readmitted to psychiatric floor for continued medication treatment 09/01 Patient remains anxious, depressed, worried about his medical situation. Discussed medical illness. He remains needing O2 but is tolerating 2 L; discussed the importance of doing incentive spirometry and patient said he will do it. Will restart venlafaxine. Discussed why patient is on aspirin which he said I am in bed a lot so they started me on it.. Not restarting omeprazole at this time due to possible interaction with antibiotics, limiting their effectiveness. Instead will treat with Pepcid which does not inhibit effectiveness of antibiotic -Dr. Evans will start Trelegy 09/04 Patient remains very anxious about medical condition feeling subsequent depression. Discussed medication regimen and considering making Seroquel p.r.n.; says will remain on Depakote for now. Patient insisting on having a colonoscopy before discharged -will reach out to GI; will also get home O2 eval 09/05 Remains anxious worried about physical illness however agrees that his anxiety is better; he says he has had no panic attacks at all since making the change to venlafaxine despite all his concern for his medical illness; patient continues to have good bowel movements with no blood in the stool 09/06 continue treatment plan; discussed case with gastroenterology who agrees that colonoscopy is not urgent and can be done as outpatient 09/[address] Nichols who recommends extending Bactrim for another week; also starting patient on Lasix 40 mg out of concern for heart failure; will evaluate over the weekend -discussed case with Respiratory who did home O2 eval and will repeat next week Plan: cv q15min checks O2 continuous; monitor O2 sat Abx per hospitalist/pulm Start Lasix 40 mg daily Continue Intuniv for both impulsivity and internal anxiety Continue venlafaxine 150 mg (chosen instead of Zoloft since patient has chronic GI issues including nausea/vomiting) Continue nortriptyline 25 mg q.h.s. to help with insomnia since this has less weight gain risk then mirtazapine Continue clonidine 0.1 mg b.i.d. to help with insomnia and anxiety Temporarily increased clonazepam 0.5 mg to t.i.d. p.r.n. (up from b.i.d. p.r.n.); patient remains it sustained sobriety for several years (he had a slip up for one day in February 2024) Discontinued mirtazapine; patient sleeping without it Discontinued Prozac since little benefit from Prozac 60 mg; switch to Effexor which proved more effective -continue depakote for now (pt thinks helps some) -change Seroquel to p.r.n.me) -Continue Seroquel for now (pt thinks helps some) -Continue Seroquel for now (pt thinks helps some) Patient educated on: diagnosis, medication risk/benefits and medical condition Informed Consent: understands Reason for continued inpatient stay Substantial Risk for: stable for discharge Time Spent With Patient Time: Total time managing care of this patient today ____ minutes.
--- NOTE | 2024-09-08 12:32 | P.PNPSI_ITS ---
Subjective Subjective Date of Service: 09/08/24 Reason For Visit: Hypoxia Interim History: Met with patient; discussed with team Patient grateful to remain on the unit for continued stability; anxiety is better and still no panic; depression abating and patient feels more hopeful about recovering from pneumonia. Discussed medical illness and starting Lasix. Mental Status Exam Mental Status Exam Narrative: Pt is alert and oriented; behavior is cooperative, friendly and calm and out of the room more; using nasal cannula for oxygen; dressed in hospital attire, adequate grooming; mood is described as little better and affect congruent; eye contact appropriate; Speech is normal rate, volume and prosody and not pressured; no psychomotor agitation/retardation present; thought process is organized and goal directed; Thought content is on tx, medical condition; otherwise pertinent to relevant topics and without any delusional content, paranoid ideations or grandiosity; denies any SI/HI. Denies AVH and there is no evidence of perceptual disturbance. Patients insight and judgment are intact. Diagnostics Vital Signs (24Hr): Vital Signs - 24 hr 09/07/24 16:33 09/07/24 20:00 09/08/24 08:00 Temperature 97.8 F 97.1 F Pulse Rate 90 Respiratory Rate 16 Blood Pressure 130/72 130/85 138/87 Pulse Oximetry 93 91 L Oxygen Delivery Method Nasal Cannula Oxygen Flow Rate 2 BMI result Body Mass Index 46.8 Labs 08/31/24 07:52 Medications Medications Current Medications Acetaminophen (Acetaminophen 325 Mg Tablet) 650 mg PO Q6H PRN PRN Reason: Headache/Pain, Scale 1-10 Last Admin: 09/07/24 12:41 Dose: 650 mg Al Hydroxide/Mg Hydroxide (Magnesium Hydrox/Alum Hydrox 30 Ml Oral.Susp) 30 ml PO Q6H PRN PRN Reason: Heartburn/Nausea Albuterol Sulfate (Albuterol Sulfate 90 Mcg 8 Gm Inhaler) 2 puff INHALE RQ4H PRN PRN Reason: Shortness Of Breath Last Admin: 09/02/24 01:34 Dose: 2 puff Lipase/Protease/Amylase (Lipase/Prot/Amylase 12/38/60k Capsule.) 2 cap PO TIDWM [facility] Last Admin: 09/08/24 08:37 Dose: 2 cap Aspirin (Aspirin Enteric Coated 81 Mg Tablet.) 81 mg PO DAILY [facility] Last Admin: 09/08/24 08:36 Dose: 81 mg Clonazepam (Clonazepam 0.5 Mg Tablet) 0.5 mg PO TID PRN PRN Reason: Anxiety Last Admin: 09/08/24 07:49 Dose: 0.5 mg Clonidine HCl (Clonidine Hcl 0.1 Mg Tablet) 0.1 mg PO BID PRN; Protocol PRN Reason: moderate anxiety Last Admin: 09/02/24 18:30 Dose: 0.1 mg Clonidine HCl (Clonidine Hcl 0.1 Mg Tablet) 0.1 mg PO BID [facility]; Protocol Last Admin: 09/08/24 08:42 Dose: 0.1 mg Divalproex Sodium (Divalproex Sodium 250 Mg Tablet.Dr) 250 mg PO BID [facility] Last Admin: 09/08/24 08:36 Dose: 250 mg Famotidine (Famotidine 20 Mg Tablet) 20 mg PO BID [facility] Last Admin: 09/08/24 08:41 Dose: 20 mg Ferrous Sulfate (Ferrous Sulfate 324 Mg Tablet.Dr) 324 mg PO DAILY [facility] Last Admin: 09/08/24 08:41 Dose: Not Given Fluticasone/Umeclidinium/Vilanterol (Fluticasone/Umeclidinium/Vilanterol 200/62.5/25 Blst.W.Dev) 1 puff INHALE RDAILY [facility] Last Admin: 09/08/24 08:35 Dose: 1 puff Furosemide (Furosemide 40 Mg Tablet) 40 mg PO DAILY [facility]; Protocol Last Admin: 09/08/24 08:35 Dose: 40 mg Guanfacine HCl (Guanfacine Hcl Er 1 Mg Tab.Er.24h) 1 mg PO DAILY [facility] Last Admin: 09/08/24 08:36 Dose: 1 mg Hydrocortisone (Hydrocortisone 2.5 % Rectal Cr 30 Gm Tube) 1 appl [place] DAILY [facility] Last Admin: 09/08/24 08:42 Dose: 1 appl Hydroxyzine HCl (Hydroxyzine Hcl 25 Mg Tablet) 25 mg PO Q6H PRN PRN Reason: mild anxiety Last Admin: 09/04/24 03:39 Dose: 25 mg Lactulose (Lactulose 20 Gm/30 Ml Solution) 20 gm PO DAILY PRN PRN Reason: Constipation Last Admin: 09/04/24 14:06 Dose: 20 gm Magnesium Hydroxide (Milk Of Magnesia 30 Ml Oral.Susp) 30 ml PO DAILY PRN PRN Reason: Constipation Magnesium Oxide (Magnesium Oxide 400 Mg Tablet) 400 mg PO BEDTIME [facility] Last Admin: 09/07/24 20:20 Dose: Not Given Methadone HCl (Methadone Hcl 20 Mg/2 Ml Oral.Conc) 100 mg PO DAILY@0800 [facility] Last Admin: 09/08/24 07:47 Dose: 100 mg Methadone HCl (Methadone Hcl 20 Mg/2 Ml Oral.Conc) 22 mg PO DAILY@1700 [facility] Last Admin: 09/07/24 16:32 Dose: 22 mg Multivitamins/Vitamin C (Multivitamin Tablet) 1 tab PO DAILY [facility] Last Admin: 09/08/24 08:36 Dose: 1 tab Pat Own Med ( Cefpodoxime 200 Mg Tablet) 200 mg PO BIDWM [facility] Stop: 09/10/24 17:01 Last Admin: 09/08/24 08:35 Dose: 200 mg Nortriptyline HCl (Nortriptyline Hcl 25 Mg Capsule) 25 mg PO BEDTIME [facility] Last Admin: 09/07/24 20:21 Dose: 25 mg Olanzapine (Olanzapine 5 Mg Tablet) 5 mg PO TID PRN PRN Reason: agitation Last Admin: 09/07/24 12:41 Dose: 5 mg Polyethylene Glycol (Polyethylene Glycol 3350 17 Gm Powd.Pack) 17 gm PO BID [facility] Last Admin: 09/08/24 08:34 Dose: 17 gm Quetiapine Fumarate (Quetiapine Fumarate 25 Mg Tablet) 75 mg PO BID PRN PRN Reason: more severe anxiety Last Admin: 09/04/24 21:10 Dose: 75 mg Senna/Docusate Sodium (Sennosides/Docusate Sodium Tablet) 2 tab PO BID [facility] Last Admin: 09/08/24 08:36 Dose: 2 tab Trimethoprim/Sulfamethoxazole (Sulfamethox/Trimeth 800/160 Tablet) 1 tab PO BID [facility] Stop: 09/14/24 09:01 Last Admin: 09/08/24 08:37 Dose: 1 tab Venlafaxine HCl (Venlafaxine Hcl Er 150 Mg Cap.Er.24h) 150 mg PO DAILY [facility] Last Admin: 09/08/24 08:36 Dose: 150 mg Allergies Allergies Allergy/AdvReac Type Severity Reaction Status Date / Time Penicillins [PENICILLINS] Allergy Unknown RASH Verified 08/15/24 09:34 Assessment & Plan Assessment & Plan (1) MDD (major depressive disorder), recurrent episode, moderate: Status: Acute Code(s): F33.1 - Major depressive disorder, recurrent, moderate (2) Anxiety: Status: Acute Code(s): F41.9 - Anxiety disorder, unspecified (3) Agoraphobia: Status: Acute Code(s): F40.00 - Agoraphobia, unspecified (4) Opioid use disorder: Status: Acute Code(s): F11.90 - Opioid use, unspecified, uncomplicated (5) Multifocal pneumonia: Status: Acute Code(s): J18.9 - Pneumonia, unspecified organism Plan HPI: 39 yo male with hx of anxiety, panic, agoraphobia, depression; substance abuse in sustained remission, on methadone who first presented for SI (though no plan), in face of ongoing, debilitating panic/anxiety. Pt was first sent to medical floor for bilateral PNA but was medically cleared and returned to psych. On unit, patient destaturated, transferred back to medical floor for treatment of multifocal pneumonia, sepsis and IV abx. Now cleared again, back on psych floor, now on continually. Pt now with depression and needing retitration of medications. Patient was admitted for ongoing panic attacks on top of daily debilitating anxiety that keeps him from leaving the house or doing much of anything. Patient is grateful that he has remained sober for years, which he attributes to avoiding all the people he knew from those days, but he feels trapped in his house, afraid to go out and see people but also afraid of having a panic attack. 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 Current medication regimen has done little to curb anxiety and panic remains debilitating and has resulted in agoraphobia. Pt agreed to switch med regimen which seems to be proving more effective Additionally, pt on continually 02; pulm advising; also had some blood per rectum; H&H stable, GI recs colonoscopy at some point Hospital course: Initial admission patient switched from Prozac to venlafaxine; started on nortriptyline 08/24: Observed laying in bed napping. Patient reports feeling alright ; denied any issues at this time. Pt stated, I didn't sleep too well last night so I'm trying to nap . He reports improved mood since admission. denies SI/HI/VH/AH. Continue current tx plan. 08/25 Patient reports still anxious; no panic however. Agrees to increasing venlafaxine to 150 mg; also discussed Intuniv, risks/side effects and patient agrees to add this for both internal anxiety and help with focus. Discussed medication regimen further and patient is sleeping well and agrees to discontinue mirtazapine to avoid polypharmacy On 08/27 Discharged to medical floor for worsening pneumonia; diagnosed with multifocal pneumonia and now on O2 continuously. Returned to psychiatric unit on 08/31 08/31 patient readmitted to psychiatric floor for continued medication treatment 09/01 Patient remains anxious, depressed, worried about his medical situation. Discussed medical illness. He remains needing O2 but is tolerating 2 L; discussed the importance of doing incentive spirometry and patient said he will do it. Will restart venlafaxine. Discussed why patient is on aspirin which he said I am in bed a lot so they started me on it.. Not restarting omeprazole at this time due to possible interaction with antibiotics, limiting their effectiveness. Instead will treat with Pepcid which does not inhibit effectiveness of antibiotic -Dr. Evans will start Trelegy 09/04 Patient remains very anxious about medical condition feeling subsequent depression. Discussed medication regimen and considering making Seroquel p.r.n.; says will remain on Depakote for now. Patient insisting on having a colonoscopy before discharged -will reach out to GI; will also get home O2 eval 09/05 Remains anxious worried about physical illness however agrees that his anxiety is better; he says he has had no panic attacks at all since making the change to venlafaxine despite all his concern for his medical illness; patient continues to have good bowel movements with no blood in the stool 09/06 continue treatment plan; discussed case with gastroenterology who agrees that colonoscopy is not urgent and can be done as outpatient 09/[address] Nichols who recommends extending Bactrim for another week; also starting patient on Lasix 40 mg out of concern for heart failure; will evaluate over the weekend -discussed case with Respiratory who did home O2 eval and will repeat next week 09/08 Patient grateful to remain on the unit for continued stability; anxiety is better and still no panic; depression abating and patient feels more hopeful about recovering from pneumonia. Discussed medical illness and starting Lasix. Plan: cv q15min checks O2 continuous; monitor O2 sat Abx per hospitalist/pulm Start Lasix 40 mg daily Continue Intuniv for both impulsivity and internal anxiety Continue venlafaxine 150 mg (chosen instead of Zoloft since patient has chronic GI issues including nausea/vomiting) Continue nortriptyline 25 mg q.h.s. to help with insomnia since this has less weight gain risk then mirtazapine Continue clonidine 0.1 mg b.i.d. to help with insomnia and anxiety Temporarily increased clonazepam 0.5 mg to t.i.d. p.r.n. (up from b.i.d. p.r.n.); patient remains it sustained sobriety for several years (he had a slip up for one day in February 2024) Discontinued mirtazapine; patient sleeping without it Discontinued Prozac since little benefit from Prozac 60 mg; switch to Effexor which proved more effective -continue depakote for now (pt thinks helps some) -change Seroquel to p.r.n.me) -Continue Seroquel for now (pt thinks helps some) -Continue Seroquel for now (pt thinks helps some) Patient educated on: diagnosis, medication risk/benefits and medical condition Informed Consent: understands Reason for continued inpatient stay Substantial Risk for: stable for discharge Time Spent With Patient Time: Total time managing care of this patient today ____ minutes.
[2024-09-08] MEDS: OLANZapine 5 MG TABLET PO ×2 (12:41→20:48)
[2024-09-08] MEDS: Acetaminophen 325 MG TABLET 650 MG PO (12:41)
[2024-09-08] MEDS: methADONE HCl 20 MG/2 ML ORAL.CONC PO (17:02)
[2024-09-08 20:00] VITALS: BP 121/79; PULSE 121; TEMP 37.1; O2SAT 98
[2024-09-08 20:36] VITALS: BP 121/79
[2024-09-08] MEDS: Nortriptyline HCl 25 MG CAPSULE PO (20:38)
[2024-09-09] MEDS: methADONE HCl 20 MG/2 ML ORAL.CONC 100 MG PO (07:55)
[2024-09-09] MEDS: Lipase/Prot/Amylase 12/38/60K CAPSULE.DR 2 CAP PO ×3 (08:06→18:07)
[2024-09-09] MEDS: clonazePAM 0.5 MG TABLET PO ×3 (08:06→20:09)
[2024-09-09 08:09] VITALS: BP 121/65; PULSE 93; RESP 20; TEMP 36.4; O2SAT 92
[2024-09-09] MEDS: Multivitamin TABLET 1 TAB PO (08:28)
[2024-09-09] MEDS: OLANZapine 5 MG TABLET PO ×3 (08:28→20:09)
[2024-09-09] MEDS: Furosemide 40 MG TABLET PO (08:29)
[2024-09-09] MEDS: guanFACINE HCl ER 1 MG TAB.ER.24H PO (08:29)
[2024-09-09] MEDS: Famotidine 20 MG TABLET PO ×2 (08:29→20:09)
[2024-09-09] MEDS: Divalproex Sodium 250 MG TABLET.DR PO ×2 (08:29→20:09)
[2024-09-09] MEDS: Ferrous Sulfate 324 MG TABLET.DR PO (08:30)
[2024-09-09] MEDS: Sennosides/Docusate Sodium TABLET 2 TAB PO ×2 (08:30→20:09)
[2024-09-09] MEDS: Sulfamethox/Trimeth 800/160 TABLET 1 TAB PO ×2 (08:31→20:09)
[2024-09-09] MEDS: Venlafaxine HCl ER 150 MG CAP.ER.24H PO (08:31)
[2024-09-09] MEDS: cloNIDine HCL 0.1 MG TABLET PO ×2 (08:31→20:10)
[2024-09-09] MEDS: CEFPODOXIME 200 MG 200 EACH PO ×2 (08:32→18:08)
[2024-09-09] MEDS: Fluticasone/Umeclidinium/Vilanterol 200/62.5/25 BLST.W.DEV 1 PUFF INHALE (08:32)
[2024-09-09] MEDS: Hydrocortisone 2.5 % Rectal Cr 30 GM TUBE 1 APPL PR (08:36)
[2024-09-09] MEDS: polyethylene glycoL 3350 17 GM POWD.PACK PO (08:38)
--- NOTE | 2024-09-09 12:03 | HO.PSYCHPN ---
Subjective Subjective Date of Service: 09/09/24 Reason For Visit: Hypoxia Interim History: Patient with some periods of panic requires a lot of education Mental Status Exam Mental Status Exam Narrative: Pt is alert and oriented; behavior is cooperative, friendly and calm and out of the room more; using nasal cannula for oxygen; dressed in hospital attire, adequate grooming; mood is described as little better and affect congruent; eye contact appropriate; Speech is normal rate, volume and prosody and not pressured; no psychomotor agitation/retardation present; thought process is organized and goal directed; Thought content is on tx, medical condition; otherwise pertinent to relevant topics and without any delusional content, paranoid ideations or grandiosity; denies any SI/HI. Denies AVH and there is no evidence of perceptual disturbance. Patients insight and judgment appear intact. Diagnostics Vital Signs (24Hr): Vital Signs - 24 hr 09/08/24 20:00 09/08/24 20:36 09/09/24 08:09 Temperature 98.8 F 97.5 F Pulse Rate 121 H 93 Respiratory Rate 20 Blood Pressure 121/79 121/79 121/65 Pulse Oximetry 98 92 Oxygen Delivery Method Room Air Nasal Cannula Oxygen Flow Rate 2 BMI result Body Mass Index 46.8 Labs 08/31/24 07:52 Medications Medications Current Medications Acetaminophen (Acetaminophen 325 Mg Tablet) 650 mg PO Q6H PRN PRN Reason: Headache/Pain, Scale 1-10 Last Admin: 09/08/24 12:41 Dose: 650 mg Al Hydroxide/Mg Hydroxide (Magnesium Hydrox/Alum Hydrox 30 Ml Oral.Susp) 30 ml PO Q6H PRN PRN Reason: Heartburn/Nausea Albuterol Sulfate (Albuterol Sulfate 90 Mcg 8 Gm Inhaler) 2 puff INHALE RQ4H PRN PRN Reason: Shortness Of Breath Last Admin: 09/02/24 01:34 Dose: 2 puff Lipase/Protease/Amylase (Lipase/Prot/Amylase 12/38/60k Capsule.) 2 cap PO TIDWM [facility] Last Admin: 09/09/24 12:02 Dose: 2 cap Aspirin (Aspirin Enteric Coated 81 Mg Tablet.) 81 mg PO DAILY [facility] Last Admin: 09/08/24 08:36 Dose: 81 mg Clonazepam (Clonazepam 0.5 Mg Tablet) 0.5 mg PO TID PRN PRN Reason: Anxiety Last Admin: 09/09/24 08:06 Dose: 0.5 mg Clonidine HCl (Clonidine Hcl 0.1 Mg Tablet) 0.1 mg PO BID PRN; Protocol PRN Reason: moderate anxiety Last Admin: 09/02/24 18:30 Dose: 0.1 mg Clonidine HCl (Clonidine Hcl 0.1 Mg Tablet) 0.1 mg PO BID [facility]; Protocol Last Admin: 09/09/24 08:31 Dose: 0.1 mg Divalproex Sodium (Divalproex Sodium 250 Mg Tablet.) 250 mg PO BID [facility] Last Admin: 09/09/24 08:29 Dose: 250 mg Famotidine (Famotidine 20 Mg Tablet) 20 mg PO BID [facility] Last Admin: 09/09/24 08:29 Dose: 20 mg Ferrous Sulfate (Ferrous Sulfate 324 Mg Tablet.) 324 mg PO DAILY [facility] Last Admin: 09/09/24 08:30 Dose: 324 mg Fluticasone/Umeclidinium/Vilanterol (Fluticasone/Umeclidinium/Vilanterol 200/62.5/25 Blst.W.Dev) 1 puff INHALE RDAILY [facility] Last Admin: 09/09/24 08:32 Dose: 1 puff Furosemide (Furosemide 40 Mg Tablet) 40 mg PO DAILY [facility]; Protocol Last Admin: 09/09/24 08:29 Dose: 40 mg Guanfacine HCl (Guanfacine Hcl Er 1 Mg Tab.Er.24h) 1 mg PO DAILY [facility] Last Admin: 09/09/24 08:29 Dose: 1 mg Hydrocortisone (Hydrocortisone 2.5 % Rectal Cr 30 Gm Tube) 1 appl AR DAILY [facility] Last Admin: 09/09/24 08:36 Dose: 1 appl Hydroxyzine HCl (Hydroxyzine Hcl 25 Mg Tablet) 25 mg PO Q6H PRN PRN Reason: mild anxiety Last Admin: 09/04/24 03:39 Dose: 25 mg Lactulose (Lactulose 20 Gm/30 Ml Solution) 20 gm PO DAILY PRN PRN Reason: Constipation Last Admin: 09/04/24 14:06 Dose: 20 gm Magnesium Hydroxide (Milk Of Magnesia 30 Ml Oral.Susp) 30 ml PO DAILY PRN PRN Reason: Constipation Magnesium Oxide (Magnesium Oxide 400 Mg Tablet) 400 mg PO BEDTIME [facility] Last Admin: 09/08/24 20:39 Dose: Not Given Methadone HCl (Methadone Hcl 20 Mg/2 Ml Oral.Conc) 100 mg PO DAILY@0800 [facility] Last Admin: 09/09/24 07:55 Dose: 100 mg Methadone HCl (Methadone Hcl 20 Mg/2 Ml Oral.Conc) 20 mg PO DAILY@1700 [facility] Last Admin: 09/08/24 17:02 Dose: 20 mg Multivitamins/Vitamin C (Multivitamin Tablet) 1 tab PO DAILY [facility] Last Admin: 09/09/24 08:28 Dose: 1 tab Pat Own Med ( Cefpodoxime 200 Mg Tablet) 200 mg PO BIDWM [facility] Stop: 09/10/24 17:01 Last Admin: 09/09/24 08:32 Dose: 200 mg Nortriptyline HCl (Nortriptyline Hcl 25 Mg Capsule) 25 mg PO BEDTIME [facility] Last Admin: 09/08/24 20:38 Dose: 25 mg Olanzapine (Olanzapine 5 Mg Tablet) 5 mg PO TID PRN PRN Reason: agitation Last Admin: 09/09/24 08:28 Dose: 5 mg Polyethylene Glycol (Polyethylene Glycol 3350 17 Gm Powd.Pack) 17 gm PO BID [facility] Last Admin: 09/09/24 08:38 Dose: 17 gm Quetiapine Fumarate (Quetiapine Fumarate 25 Mg Tablet) 75 mg PO BID PRN PRN Reason: more severe anxiety Last Admin: 09/04/24 21:10 Dose: 75 mg Senna/Docusate Sodium (Sennosides/Docusate Sodium Tablet) 2 tab PO BID [facility] Last Admin: 09/09/24 08:30 Dose: 2 tab Simethicone (Simethicone 80 Mg Tab.Chew) 80 mg PO QIDWMHS PRN PRN Reason: flatulance Trimethoprim/Sulfamethoxazole (Sulfamethox/Trimeth 800/160 Tablet) 1 tab PO BID [facility] Stop: 09/14/24 09:01 Last Admin: 09/09/24 08:31 Dose: 1 tab Venlafaxine HCl (Venlafaxine Hcl Er 150 Mg Cap.Er.24h) 150 mg PO DAILY [facility] Last Admin: 09/09/24 08:31 Dose: 150 mg Allergies Allergies Allergy/AdvReac Type Severity Reaction Status Date / Time Penicillins [PENICILLINS] Allergy Unknown RASH Verified 08/15/24 09:34 Assessment & Plan Assessment & Plan (1) MDD (major depressive disorder), recurrent episode, moderate: Status: Acute Code(s): F33.1 - Major depressive disorder, recurrent, moderate (2) Anxiety: Status: Acute Code(s): F41.9 - Anxiety disorder, unspecified (3) Agoraphobia: Status: Acute Code(s): F40.00 - Agoraphobia, unspecified (4) Opioid use disorder: Status: Acute Code(s): F11.90 - Opioid use, unspecified, uncomplicated (5) Multifocal pneumonia: Status: Acute Code(s): J18.9 - Pneumonia, unspecified organism Plan HPI: 39 yo male with hx of anxiety, panic, agoraphobia, depression; substance abuse in sustained remission, on methadone who first presented for SI (though no plan), in face of ongoing, debilitating panic/anxiety. Pt was first sent to medical floor for bilateral PNA but was medically cleared and returned to psych. On unit, patient destaturated, transferred back to medical floor for treatment of multifocal pneumonia, sepsis and IV abx. Now cleared again, back on psych floor, now on continually. Pt now with depression and needing retitration of medications. Patient was admitted for ongoing panic attacks on top of daily debilitating anxiety that keeps him from leaving the house or doing much of anything. Patient is grateful that he has remained sober for years, which he attributes to avoiding all the people he knew from those days, but he feels trapped in his house, afraid to go out and see people but also afraid of having a panic attack. Medication changes made it prior to worsening pneumonia were effective; will retitrate Formulation/clinical reasoning: hx of anxiety, panic, agoraphobia, depression; medical underwriter reviewed hx and pt denies manic episodes. Current medication regimen has done little to curb anxiety and panic remains debilitating and has resulted in agoraphobia. Pt agreed to switch med regimen which seems to be proving more effective Additionally, pt on continually 02; pulm advising; also had some blood per rectum; H&H stable, GI recs colonoscopy at some point Hospital course: Initial admission patient switched from Prozac to venlafaxine; started on nortriptyline 08/24: Observed laying in bed napping. Patient reports feeling alright ; denied any issues at this time. Pt stated, I didn't sleep too well last night so I'm trying to nap . He reports improved mood since admission. denies SI/HI/VH/AH. Continue current tx plan. 08/25 Patient reports still anxious; no panic however. Agrees to increasing venlafaxine to 150 mg; also discussed Intuniv, risks/side effects and patient agrees to add this for both internal anxiety and help with focus. Discussed medication regimen further and patient is sleeping well and agrees to discontinue mirtazapine to avoid polypharmacy On 08/27 Discharged to medical floor for worsening pneumonia; diagnosed with multifocal pneumonia and now on O2 continuously. Returned to psychiatric unit on 08/31 08/31 patient readmitted to psychiatric floor for continued medication treatment 09/01 Patient remains anxious, depressed, worried about his medical situation. Discussed medical illness. He remains needing O2 but is tolerating 2 L; discussed the importance of doing incentive spirometry and patient said he will do it. Will restart venlafaxine. Discussed why patient is on aspirin which he said I am in bed a lot so they started me on it.. Not restarting omeprazole at this time due to possible interaction with antibiotics, limiting their effectiveness. Instead will treat with Pepcid which does not inhibit effectiveness of antibiotic -Dr. Evans will start Trelegy 09/04 Patient remains very anxious about medical condition feeling subsequent depression. Discussed medication regimen and considering making Seroquel p.r.n.; says will remain on Depakote for now. Patient insisting on having a colonoscopy before discharged -will reach out to GI; will also get home O2 eval 09/05 Remains anxious worried about physical illness however agrees that his anxiety is better; he says he has had no panic attacks at all since making the change to venlafaxine despite all his concern for his medical illness; patient continues to have good bowel movements with no blood in the stool 09/06 continue treatment plan; discussed case with gastroenterology who agrees that colonoscopy is not urgent and can be done as outpatient 09/[address] Nichols who recommends extending Bactrim for another week; also starting patient on Lasix 40 mg out of concern for heart failure; will evaluate over the weekend -discussed case with Respiratory who did home O2 eval and will repeat next week 09/09/2024 Extensive discussion regarding panic disorder management given literature discussed interaction with patient's pulmonary disease and sleep apnea. Otherwise continue current plan Plan: cv q15min checks O2 continuous; monitor O2 sat Abx per hospitalist/pulm Start Lasix 40 mg daily Continue Intuniv for both impulsivity and internal anxiety Continue venlafaxine 150 mg (chosen instead of Zoloft since patient has chronic GI issues including nausea/vomiting) Continue nortriptyline 25 mg q.h.s. to help with insomnia since this has less weight gain risk then mirtazapine Continue clonidine 0.1 mg b.i.d. to help with insomnia and anxiety Temporarily increased clonazepam 0.5 mg to t.i.d. p.r.n. (up from b.i.d. p.r.n.); patient remains it sustained sobriety for several years (he had a slip up for one day in February 2024) Discontinued mirtazapine; patient sleeping without it Discontinued Prozac since little benefit from Prozac 60 mg; switch to Effexor which proved more effective -continue depakote for now (pt thinks helps some) -change Seroquel to p.r.n.me) -Continue Seroquel for now (pt thinks helps some) -Continue Seroquel for now (pt thinks helps some) Reason for continued inpatient stay Substantial Risk for: harm to self Time Spent With Patient Time: Total time managing care of this patient today ____ minutes.
[2024-09-09] MEDS: methADONE HCl 20 MG/2 ML ORAL.CONC PO (18:08)
[2024-09-09 19:52] VITALS: BP 148/97; PULSE 85; RESP 15; TEMP 36.4; O2SAT 92
[2024-09-09] MEDS: Nortriptyline HCl 25 MG CAPSULE PO (20:09)
[2024-09-09] MEDS: Albuterol Sulfate 90 MCG 8 GM INHALER 2 PUFF INHALE (20:12)
[2024-09-10] MEDS: OLANZapine 5 MG TABLET PO ×3 (06:21→20:24)
[2024-09-10] MEDS: methADONE HCl 20 MG/2 ML ORAL.CONC 100 MG PO (07:49)
[2024-09-10] MEDS: Fluticasone/Umeclidinium/Vilanterol 200/62.5/25 BLST.W.DEV 1 PUFF INHALE (08:15)
[2024-09-10 08:16] VITALS: BP 131/87
[2024-09-10] MEDS: Lipase/Prot/Amylase 12/38/60K CAPSULE.DR 2 CAP PO ×3 (08:16→17:12)
[2024-09-10] MEDS: Multivitamin TABLET 1 TAB PO (08:16)
[2024-09-10] MEDS: Furosemide 40 MG TABLET PO (08:16)
[2024-09-10] MEDS: cloNIDine HCL 0.1 MG TABLET PO ×3 (08:16→20:23)
[2024-09-10] MEDS: Famotidine 20 MG TABLET PO ×2 (08:17→20:24)
[2024-09-10] MEDS: guanFACINE HCl ER 1 MG TAB.ER.24H PO (08:17)
[2024-09-10] MEDS: Sennosides/Docusate Sodium TABLET 2 TAB PO ×2 (08:17→20:23)
[2024-09-10] MEDS: Venlafaxine HCl ER 150 MG CAP.ER.24H PO (08:17)
[2024-09-10] MEDS: Sulfamethox/Trimeth 800/160 TABLET 1 TAB PO ×2 (08:17→20:24)
[2024-09-10] MEDS: CEFPODOXIME 200 MG 200 EACH PO ×2 (08:17→17:21)
[2024-09-10] MEDS: Divalproex Sodium 250 MG TABLET.DR PO ×2 (08:17→20:24)
[2024-09-10] MEDS: Ferrous Sulfate 324 MG TABLET.DR PO (08:17)
[2024-09-10] MEDS: polyethylene glycoL 3350 17 GM POWD.PACK PO ×2 (08:17→20:23)
[2024-09-10] MEDS: clonazePAM 0.5 MG TABLET PO ×3 (08:35→20:24)
[2024-09-10 09:16] VITALS: BP 131/87; PULSE 89; TEMP 36.6; O2SAT 91
[2024-09-10] MEDS: Albuterol Sulfate 90 MCG 8 GM INHALER 2 PUFF INHALE (14:17)
[2024-09-10 14:35] VITALS: BP 125/82; O2SAT 92
[2024-09-10 14:36] VITALS: BP 125/82
[2024-09-10] MEDS: methADONE HCl 20 MG/2 ML ORAL.CONC PO (17:12)
[2024-09-10 19:58] VITALS: BP 126/81; PULSE 89; RESP 15; TEMP 36.6; O2SAT 92
[2024-09-10] MEDS: Nortriptyline HCl 25 MG CAPSULE PO (20:24)
--- NOTE | 2024-09-10 23:12 | HO.PSYCHPN ---
Subjective Subjective Date of Service: 09/10/24 Reason For Visit: Hypoxia Interim History: Seen in room, in bed, on 1:1 for cont O2/portable. Appears withdrawn, impaired hygiene. Mood today is so-so . High anxiety. Denies thoughts of harming self Sleeping okay Denies SI, AVH. Review of Systems Review of Systems Incontinence Yes all other systems are reviewed and are negative Constitutional: Denies daytime sleepiness, Denies excessive sweating, Denies fatigue, Denies fever(s), Denies lethargy, Denies malaise, Denies night sweats, Denies snoring and Denies weight loss Eyes: Denies blurry vision and Denies itchy eyes Denies nasal congestion, Denies post nasal drip, Denies sinus pain, Denies sinus pressure and Denies other ( Thrush) Cardiovascular: Denies chest pain, Denies pedal edema, Denies dyspnea, Denies orthopnea and Denies paroxysmal nocturnal dyspnea Respiratory: Denies cough, Denies hemoptysis, Denies excessive phlegm production, Denies dyspnea, Denies snoring and Denies wheezing Gastrointestinal: Denies abdominal pain and Denies heartburn Musculoskeletal: Denies myalgias, Denies arthralgias and Denies joint swelling Skin/Breast: Denies rash Denies memory loss and Denies seizure-like activity Psychiatric: Denies abnormal sleep pattern, Denies anxiety and Denies memory loss Endocrine: Denies excessive sweating, Denies fatigue and Denies heat intolerance Hematologic/Lymphatic: Denies easy bruising Allergic/Immunologic: Denies itchy eyes, Denies seasonal rhinorrhea and Denies wheezing Mental Status Exam Mental Status Exam Narrative: Pt is alert and oriented; behavior is cooperative, friendly and calm and out of the room more; using nasal cannula for oxygen; dressed in hospital attire, adequate grooming; mood is described as little better and affect congruent; eye contact appropriate; Speech is normal rate, volume and prosody and not pressured; no psychomotor agitation/retardation present; thought process is organized and goal directed; Thought content is on tx, medical condition; otherwise pertinent to relevant topics and without any delusional content, paranoid ideations or grandiosity; denies any SI/HI. Denies AVH and there is no evidence of perceptual disturbance. Patients insight and judgment appear intact. Patient Appearance: Fatigued and Appropriate Patient Orientation: Person, Place, Time and Situation Level of Consciousness: Awake and Appropriate Patient Behavior: Appropriate, Dependent and Fatigued Mood Description: Calm, Constricted, Depressed, Sad and Nervous Affect Description: Sad and Nervous Patient Cognition Impaired: No Ability to Follow Directions: Excellent Speech Pattern: Clear Memory Description: Intact Diagnostics Vital Signs (24Hr): Vital Signs - 24 hr 09/10/24 08:16 09/10/24 08:16 09/10/24 09:16 Temperature 97.8 F Pulse Rate 89 Respiratory Rate Blood Pressure 131/87 131/87 131/87 Pulse Oximetry 91 L Oxygen Delivery Method Nasal Cannula Oxygen Flow Rate 2 09/10/24 14:35 09/10/24 14:36 09/10/24 19:58 Temperature 97.9 F Pulse Rate 89 Respiratory Rate 15 Blood Pressure 125/82 125/82 126/81 Pulse Oximetry 92 92 Oxygen Delivery Method Nasal Cannula Oxygen Flow Rate 2 BMI result Body Mass Index 46.8 Labs 08/31/24 07:52 Medications Medications Current Medications Acetaminophen (Acetaminophen 325 Mg Tablet) 650 mg PO Q6H PRN PRN Reason: Headache/Pain, Scale 1-10 Last Admin: 09/08/24 12:41 Dose: 650 mg Al Hydroxide/Mg Hydroxide (Magnesium Hydrox/Alum Hydrox 30 Ml Oral.Susp) 30 ml PO Q6H PRN PRN Reason: Heartburn/Nausea Albuterol Sulfate (Albuterol Sulfate 90 Mcg 8 Gm Inhaler) 2 puff INHALE RQ4H PRN PRN Reason: Shortness Of Breath Last Admin: 09/10/24 14:17 Dose: 2 puff Lipase/Protease/Amylase (Lipase/Prot/Amylase 12/38/60k Capsule.) 2 cap PO TIDWM [facility] Last Admin: 09/10/24 17:12 Dose: 2 cap Aspirin (Aspirin Enteric Coated 81 Mg Tablet.) 81 mg PO DAILY [facility] Last Admin: 09/08/24 08:36 Dose: 81 mg Clonazepam (Clonazepam 0.5 Mg Tablet) 0.5 mg PO TID PRN PRN Reason: Anxiety Last Admin: 09/10/24 20:24 Dose: 0.5 mg Clonidine HCl (Clonidine Hcl 0.1 Mg Tablet) 0.1 mg PO BID PRN; Protocol PRN Reason: moderate anxiety Last Admin: 09/10/24 14:36 Dose: 0.1 mg Clonidine HCl (Clonidine Hcl 0.1 Mg Tablet) 0.1 mg PO BID [facility]; Protocol Last Admin: 09/10/24 20:23 Dose: 0.1 mg Divalproex Sodium (Divalproex Sodium 250 Mg Tablet.) 250 mg PO BID [facility] Last Admin: 09/10/24 20:24 Dose: 250 mg Famotidine (Famotidine 20 Mg Tablet) 20 mg PO BID [facility] Last Admin: 09/10/24 20:24 Dose: 20 mg Ferrous Sulfate (Ferrous Sulfate 324 Mg Tablet.) 324 mg PO DAILY [facility] Last Admin: 09/10/24 08:17 Dose: 324 mg Fluticasone/Umeclidinium/Vilanterol (Fluticasone/Umeclidinium/Vilanterol 200/62.5/25 Blst.W.Dev) 1 puff INHALE RDAILY [facility] Last Admin: 09/10/24 08:15 Dose: 1 puff Furosemide (Furosemide 40 Mg Tablet) 40 mg PO DAILY [facility]; Protocol Last Admin: 09/10/24 08:16 Dose: 40 mg Guanfacine HCl (Guanfacine Hcl Er 1 Mg Tab.Er.24h) 1 mg PO DAILY [facility] Last Admin: 09/10/24 08:17 Dose: 1 mg Hydrocortisone (Hydrocortisone 2.5 % Rectal Cr 30 Gm Tube) 1 appl GA DAILY [facility] Last Admin: 09/10/24 11:43 Dose: Not Given Hydroxyzine HCl (Hydroxyzine Hcl 25 Mg Tablet) 25 mg PO Q6H PRN PRN Reason: mild anxiety Last Admin: 09/04/24 03:39 Dose: 25 mg Lactulose (Lactulose 20 Gm/30 Ml Solution) 20 gm PO DAILY PRN PRN Reason: Constipation Last Admin: 09/04/24 14:06 Dose: 20 gm Magnesium Hydroxide (Milk Of Magnesia 30 Ml Oral.Susp) 30 ml PO DAILY PRN PRN Reason: Constipation Magnesium Oxide (Magnesium Oxide 400 Mg Tablet) 400 mg PO BEDTIME [facility] Last Admin: 09/10/24 20:27 Dose: Not Given Methadone HCl (Methadone Hcl 20 Mg/2 Ml Oral.Conc) 100 mg PO DAILY@0800 [facility] Last Admin: 09/10/24 07:49 Dose: 100 mg Methadone HCl (Methadone Hcl 20 Mg/2 Ml Oral.Conc) 20 mg PO DAILY@1700 [facility] Last Admin: 09/10/24 17:12 Dose: 20 mg Multivitamins/Vitamin C (Multivitamin Tablet) 1 tab PO DAILY [facility] Last Admin: 09/10/24 08:16 Dose: 1 tab Nortriptyline HCl (Nortriptyline Hcl 25 Mg Capsule) 25 mg PO BEDTIME [facility] Last Admin: 09/10/24 20:24 Dose: 25 mg Olanzapine (Olanzapine 5 Mg Tablet) 5 mg PO TID PRN PRN Reason: agitation Last Admin: 09/10/24 20:24 Dose: 5 mg Polyethylene Glycol (Polyethylene Glycol 3350 17 Gm Powd.Pack) 17 gm PO BID [facility] Last Admin: 09/10/24 20:23 Dose: 17 gm Quetiapine Fumarate (Quetiapine Fumarate 25 Mg Tablet) 75 mg PO BID PRN PRN Reason: more severe anxiety Last Admin: 09/04/24 21:10 Dose: 75 mg Senna/Docusate Sodium (Sennosides/Docusate Sodium Tablet) 2 tab PO BID [facility] Last Admin: 09/10/24 20:23 Dose: 2 tab Simethicone (Simethicone 80 Mg Tab.Chew) 80 mg PO QIDWMHS PRN PRN Reason: flatulance Trimethoprim/Sulfamethoxazole (Sulfamethox/Trimeth 800/160 Tablet) 1 tab PO BID [facility] Stop: 09/14/24 09:01 Last Admin: 09/10/24 20:24 Dose: 1 tab Venlafaxine HCl (Venlafaxine Hcl Er 150 Mg Cap.Er.24h) 150 mg PO DAILY [facility] Last Admin: 09/10/24 08:17 Dose: 150 mg Allergies Allergies Allergy/AdvReac Type Severity Reaction Status Date / Time Penicillins [PENICILLINS] Allergy Unknown RASH Verified 08/15/24 09:34 Assessment & Plan Assessment & Plan (1) MDD (major depressive disorder), recurrent episode, moderate: Status: Acute Code(s): F33.1 - Major depressive disorder, recurrent, moderate (2) Anxiety: Status: Acute Code(s): F41.9 - Anxiety disorder, unspecified (3) Agoraphobia: Status: Acute Code(s): F40.00 - Agoraphobia, unspecified (4) Opioid use disorder: Status: Acute Code(s): F11.90 - Opioid use, unspecified, uncomplicated (5) Multifocal pneumonia: Status: Acute Code(s): J18.9 - Pneumonia, unspecified organism Plan HPI: 39 yo male with hx of anxiety, panic, agoraphobia, depression; substance abuse in sustained remission, on methadone who first presented for SI (though no plan), in face of ongoing, debilitating panic/anxiety. Pt was first sent to medical floor for bilateral PNA but was medically cleared and returned to psych. On unit, patient destaturated, transferred back to medical floor for treatment of multifocal pneumonia, sepsis and IV abx. Now cleared again, back on psych floor, now on continually. Pt now with depression and needing retitration of medications. Patient was admitted for ongoing panic attacks on top of daily debilitating anxiety that keeps him from leaving the house or doing much of anything. Patient is grateful that he has remained sober for years, which he attributes to avoiding all the people he knew from those days, but he feels trapped in his house, afraid to go out and see people but also afraid of having a panic attack. 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 Current medication regimen has done little to curb anxiety and panic remains debilitating and has resulted in agoraphobia. Pt agreed to switch med regimen which seems to be proving more effective Additionally, pt on continually ; pulm advising; also had some blood per rectum; H&H stable, GI recs colonoscopy at some point Hospital course: Initial admission patient switched from Prozac to venlafaxine; started on nortriptyline 08/24: Observed laying in bed napping. Patient reports feeling alright ; denied any issues at this time. Pt stated, I didn't sleep too well last night so I'm trying to nap . He reports improved mood since admission. denies SI/HI/VH/AH. Continue current tx plan. 08/25 Patient reports still anxious; no panic however. Agrees to increasing venlafaxine to 150 mg; also discussed Intuniv, risks/side effects and patient agrees to add this for both internal anxiety and help with focus. Discussed medication regimen further and patient is sleeping well and agrees to discontinue mirtazapine to avoid polypharmacy On 08/27 Discharged to medical floor for worsening pneumonia; diagnosed with multifocal pneumonia and now on O2 continuously. Returned to psychiatric unit on 08/31 08/31 patient readmitted to psychiatric floor for continued medication treatment 09/01 Patient remains anxious, depressed, worried about his medical situation. Discussed medical illness. He remains needing O2 but is tolerating 2 L; discussed the importance of doing incentive spirometry and patient said he will do it. Will restart venlafaxine. Discussed why patient is on aspirin which he said I am in bed a lot so they started me on it.. Not restarting omeprazole at this time due to possible interaction with antibiotics, limiting their effectiveness. Instead will treat with Pepcid which does not inhibit effectiveness of antibiotic -Dr. Evans will start Trelegy 09/04 Patient remains very anxious about medical condition feeling subsequent depression. Discussed medication regimen and considering making Seroquel p.r.n.; says will remain on Depakote for now. Patient insisting on having a colonoscopy before discharged -will reach out to GI; will also get home O2 eval 09/05 Remains anxious worried about physical illness however agrees that his anxiety is better; he says he has had no panic attacks at all since making the change to venlafaxine despite all his concern for his medical illness; patient continues to have good bowel movements with no blood in the stool 09/06 continue treatment plan; discussed case with gastroenterology who agrees that colonoscopy is not urgent and can be done as outpatient 09/[address] Nichols who recommends extending Bactrim for another week; also starting patient on Lasix 40 mg out of concern for heart failure; will evaluate over the weekend -discussed case with Respiratory who did home O2 eval and will repeat next week 09/09/2024 Extensive discussion regarding panic disorder management given literature discussed interaction with patient's pulmonary disease and sleep apnea. Otherwise continue current plan 09/10 no changes in trtmt plan Plan: cv q15min checks O2 continuous; monitor O2 sat Abx per hospitalist/pulm Start Lasix 40 mg daily Continue Intuniv for both impulsivity and internal anxiety Continue venlafaxine 150 mg (chosen instead of Zoloft since patient has chronic GI issues including nausea/vomiting) Continue nortriptyline 25 mg q.h.s. to help with insomnia since this has less weight gain risk then mirtazapine Continue clonidine 0.1 mg b.i.d. to help with insomnia and anxiety Temporarily increased clonazepam 0.5 mg to t.i.d. p.r.n. (up from b.i.d. p.r.n.); patient remains it sustained sobriety for several years (he had a slip up for one day in February 2024) Discontinued mirtazapine; patient sleeping without it Discontinued Prozac since little benefit from Prozac 60 mg; switch to Effexor which proved more effective -continue depakote for now (pt thinks helps some) -change Seroquel to p.r.n.me) -Continue Seroquel for now (pt thinks helps some) -Continue Seroquel for now (pt thinks helps some) Reason for continued inpatient stay Substantial Risk for: inability to function and med/psych decompensation Time Spent With Patient Time: Total time managing care of this patient today ____ minutes.
[2024-09-11] MEDS: methADONE HCl 20 MG/2 ML ORAL.CONC 100 MG PO (07:41)
[2024-09-11 08:00] VITALS: BP 132/71; PULSE 95; TEMP 36.6; O2SAT 89
[2024-09-11] MEDS: polyethylene glycoL 3350 17 GM POWD.PACK PO (08:36)
[2024-09-11] MEDS: Fluticasone/Umeclidinium/Vilanterol 200/62.5/25 BLST.W.DEV 1 PUFF INHALE (08:37)
[2024-09-11] MEDS: Venlafaxine HCl ER 150 MG CAP.ER.24H PO (08:38)
[2024-09-11] MEDS: Lipase/Prot/Amylase 12/38/60K CAPSULE.DR 2 CAP PO ×2 (08:39→11:56)
[2024-09-11] MEDS: Sennosides/Docusate Sodium TABLET 2 TAB PO (08:39)
[2024-09-11] MEDS: Famotidine 20 MG TABLET PO (08:40)
[2024-09-11 08:41] VITALS: BP 132/71
[2024-09-11] MEDS: guanFACINE HCl ER 1 MG TAB.ER.24H PO (08:41)
[2024-09-11] MEDS: cloNIDine HCL 0.1 MG TABLET PO (08:41)
[2024-09-11] MEDS: Multivitamin TABLET 1 TAB PO (08:42)
[2024-09-11] MEDS: Sulfamethox/Trimeth 800/160 TABLET 1 TAB PO (08:42)
[2024-09-11] MEDS: Ferrous Sulfate 324 MG TABLET.DR PO (08:42)
[2024-09-11 08:43] VITALS: BP 132/71
[2024-09-11] MEDS: Divalproex Sodium 250 MG TABLET.DR PO (08:43)
[2024-09-11] MEDS: Furosemide 40 MG TABLET PO (08:43)
[2024-09-11] MEDS: Hydrocortisone 2.5 % Rectal Cr 30 GM TUBE 1 APPL PR (08:44)
[2024-09-11] MEDS: clonazePAM 0.5 MG TABLET PO ×2 (08:49→12:52)
[2024-09-11] MEDS: OLANZapine 5 MG TABLET PO ×2 (08:49→12:51)
[2024-09-11 09:38] VITALS: PULSE 112; PULSE 116; PULSE 117; O2SAT 82; O2SAT 86; O2SAT 89
--- NOTE | 2024-09-11 11:40 | PM.PSYDC ---
DS: Providers Provider Date of Service: 09/11/24 Date of admission: 08/30/24 21:43 Date of discharge: 09/11/24 Primary care physician: Unknown Physician Attending physician on admission: Vaughn Carballo Consults: 09/02/24 11:03 Consult to Hospitalist Routine Comment: Recently transferred to N 5 from medical uniton o2 Consulting Provider: [facility] Hospitalists Reason For Exam: Breathing difficulties on O2 09/06/24 17:10 Consult to Pulmonology Routine Consulting Provider: [facility] Pulmonology Services Reason for consultation: remains needing 02; cough; advice Attending physician on discharge: Vaughn Carballo DS: Diagnosis Discharge Diagnosis (1) MDD (major depressive disorder), recurrent episode, moderate: Status: Acute (2) Anxiety: Status: Acute (3) Agoraphobia: Status: Acute (4) Opioid use disorder: Status: Acute (5) Multifocal pneumonia: Status: Acute DS: Medications Discharge Medications Home Medications: Home Medications ?Medication ?Instructions ?Recorded ?Confirmed aspirin 81 mg tablet,delayed 81 mg PO DAILY 09/02/23 08/30/24 release Previous Rx's ?Medication ?Instructions ?Recorded acetaminophen 325 mg tablet 650 mg (2 x 325 mg) PO Q6H PRN 08/27/24 Headache/Pain, Scale 1-10 #0 tabs methadone 10 mg/mL oral 100 mg (10 mL) PO DAILY@0800 #0 mL 08/27/24 concentrate (Methadose) albuterol sulfate 90 mcg/actuation 2 puff inhalation RQ4H PRN 09/11/24 aerosol inhaler (Ventolin HFA) Shortness Of Breath 30 days #6.7 grams clonazepam 0.5 mg tablet 0.5 mg PO TID PRN Anxiety 30 days 09/11/24 #70 tabs clonidine HCl 0.1 mg tablet See Rx Instructions .Route 09/11/24 .COMPLEX #120 tabs divalproex 250 mg tablet,delayed 250 mg PO BID 30 days #60 tabs 09/11/24 release famotidine 20 mg tablet 20 mg PO BID 30 days #60 tabs 09/11/24 ferrous sulfate 324 mg (65 mg 324 mg PO DAILY 30 days #30 tabs 09/11/24 iron) tablet,delayed release fluticasone fur. 200 mcg-umeclid 1 inh inhalation RDAILY 30 days 09/11/24 62.5 mcg-vilant 25 mcg #60 ea inhalat.powder (Trelegy Ellipta) furosemide 40 mg tablet 40 mg PO DAILY 30 days #30 tabs 09/11/24 guanfacine 1 mg tablet,extended 1 mg PO DAILY 30 days #30 tabs 09/11/24 release 24 hr hydrocortisone 2.5 % topical cream 1 appl FL DAILY PRN hemorrhoids 30 09/11/24 with perineal applicator days #30 grams (Proctozone-HC) hydroxyzine HCl 25 mg tablet 25 mg PO Q6H PRN mild anxiety 30 09/11/24 days #60 tabs lactulose 10 gram/15 mL oral 20 g (30 mL) PO DAILY PRN 09/11/24 solution Constipation 30 days #473 mL mfoyfk-kyfbhsbu-xrgoenv 2 cap PO TIDWM 30 days #180 caps 09/11/24 12,000-38,000-60,000 unit capsule,delayed rel (Creon) magnesium oxide 400 mg (241.3 mg 400 mg PO BEDTIME 30 days #30 tabs 09/11/24 magnesium) tablet methadone 10 mg/mL oral 20 mg (2 mL) PO DAILY@1700 #0 mL 09/11/24 concentrate (Methadose) multivitamin (Daily-Rip tablet) 1 tab PO DAILY 30 days #30 tabs 09/11/24 nortriptyline 25 mg capsule 25 mg PO BEDTIME 30 days #30 caps 09/11/24 olanzapine 5 mg tablet 5 mg PO DAILY PRN agitation 30 09/11/24 days #30 tabs polyethylene glycol 3350 17 gram 17 g PO BID 30 days #60 ea 09/11/24 oral powder packet sennosides 8.6 mg-docusate sodium 2 tab PO BID 30 days #120 tabs 09/11/24 50 mg tablet (Senna Plus) sulfamethoxazole 800 1 tab PO BID 3 days #7 tabs 09/11/24 mg-trimethoprim 160 mg tablet venlafaxine 150 mg 150 mg PO DAILY 30 days #30 caps 09/11/24 capsule,extended release 24 hr Mental Status Exam Mental Status Exam Narrative: Pt is alert and oriented; behavior is cooperative, friendly and calm and out of the room more; using nasal cannula for oxygen; dressed in hospital attire, adequate grooming; mood is described as little better and affect congruent; eye contact appropriate; Speech is normal rate, volume and prosody and not pressured; no psychomotor agitation/retardation present; thought process is organized and goal directed; Thought content is on tx, medical condition; otherwise pertinent to relevant topics and without any delusional content, paranoid ideations or grandiosity; denies any SI/HI. Denies AVH and there is no evidence of perceptual disturbance. Patients insight and judgment are intact. DS: Summary Hospital Course Hospital Course: HPI: 39 yo male with hx of anxiety, panic, agoraphobia, depression; substance abuse in sustained remission, on methadone who first presented for SI (though no plan), in face of ongoing, debilitating panic/anxiety. Pt was first sent to medical floor for bilateral PNA but was medically cleared and returned to psych. On unit, patient destaturated, transferred back to medical floor for treatment of multifocal pneumonia, sepsis and IV abx. Now cleared again, back on psych floor, now on continually. Pt now with depression and needing retitration of medications. Patient was admitted for ongoing panic attacks on top of daily debilitating anxiety that keeps him from leaving the house or doing much of anything. Patient is grateful that he has remained sober for years, which he attributes to avoiding all the people he knew from those days, but he feels trapped in his house, afraid to go out and see people but also afraid of having a panic attack. Medication changes made it prior to worsening pneumonia were effective; will retitrate Formulation/clinical reasoning: hx of anxiety, panic, agoraphobia, depression; underwriter reviewed hx and pt denies manic episodes. Current medication regimen has done little to curb anxiety and panic remains debilitating and has resulted in agoraphobia. Pt agreed to switch med regimen which seems to be proving more effective Additionally, pt on continually ; pulm advising; also had some blood per rectum; H&H stable, GI recs colonoscopy at some point Hospital course: Initial admission patient switched from Prozac to venlafaxine; started on nortriptyline 08/24: Observed laying in bed napping. Patient reports feeling alright ; denied any issues at this time. Pt stated, I didn't sleep too well last night so I'm trying to nap . He reports improved mood since admission. denies SI/HI/VH/AH. Continue current tx plan. 08/25 Patient reports still anxious; no panic however. Agrees to increasing venlafaxine to 150 mg; also discussed Intuniv, risks/side effects and patient agrees to add this for both internal anxiety and help with focus. Discussed medication regimen further and patient is sleeping well and agrees to discontinue mirtazapine to avoid polypharmacy On 08/27 Discharged to medical floor for worsening pneumonia; diagnosed with multifocal pneumonia and now on O2 continuously. Returned to psychiatric unit on 08/31 On 08/31 patient readmitted to psychiatric floor for continued medication treatment and treatment for ongoing anxiety and depression that had been read triggered by medical diagnosis. On readmission patient was anxious and expressing depression worried about his medical illness. Patient requiring oxygen continuously desatting during trials off of O2. Quality Control Systems Manager consulted with gastroenterology who agreed colonoscopy could be taken care of as an outpatient; underwriter consulted with pulmonology who extended Bactrim and started Lasix. Patient had a home O2 eval for 2 L of oxygen while ambulating. Patient's mood improved and anxiety abated and he remained without any panic attacks. Patient was more optimistic and he remained future oriented. Patient felt ready to go home. He fully understood his medical comorbidities thought confident he be able to follow up as an outpatient (appointments already scheduled for both pulmonology and gastroenterology). Patient is returning to live with his mother who is supportive. Patient remained in good behavioral and impulse control throughout his time in the unit and was engaged in treatment. He is not in imminent risk for harm to self or others and appropriate to return to the community for treatment. Medications: Started venlafaxine ER 150 mg daily Started nortriptyline 25 mg q.h.s. Started Intuniv 1 mg daily Lowered methadone by 5 mg Started on furosemide 40 mg daily Discontinued Prozac Discontinued mirtazapine Discontinued Seroquel Discontinue trazodone Time spent discussing smoking cessation with patient: 3 to 10 minutes Status at Discharge Functional status at discharge: independent ambulation Overall status at discharge: patient is back to baseline Time Spent with Patient Time attestation: Total time managing care of this patient today _50___ minutes. Time spent: Greater than 30 minutes Specific discharge activities: Met with patient; discussed with team; charting; prescriptions; discussed details with other providers. Discharge Plan Discharge Anticipated Discharge Date/Time: 09/11/24 15:00 Patient Disposition: Home, Self-Care Discharge Diagnosis: Mdd, recurrent, severe without psychosis, in full remission Referrals: [facility]- Therapy w/ Clif[place]dev[facility] Motta [Other] - 09/20/24 10:20 am (Telehealth ) Fabric And Accessories Estimator: [facility] [Other] - 10/12/24 10:00 am Eye Exam: [facility] [Other] - 10/02/24 1:30 pm Home Oxygen: [facility] [Other] - 09/11/24 (Oxygen should be delivered today, 09/11; call the above number if you haven't head delivered by 4pm) [facility]- [facility]isted [facility] [Other] - 09/12/24 (You should go to the clinic on 09/12/24 with your last dose letter and any take home bottle you had prior to your admission to get new take homes OTP Dosing Hours Wednesday - Wednesday: 5:45am - 12pm Wednesday & Wednesday: 7am -10am Walk-In Hours Wednesday, Wednesday & Wednesday: 6am - 8am ) [facility]- carbon lamp cleaner, Carlos Muñiz [Other] - 1 Week (Follow up with Carlos at the above number for assistance in managing your medical care/appointments or need for additional medical referrals) [facility]- Community Health Worker, Jennifer Burgess [Other] - 1 Week (Follow-up with Jennifer at the above phone number about PT1 rides and for assistance with applying for housing or other resources) Spindle Tester: Samantha Davis ([facility]) [Other] - 09/20/24 1:00 pm Psychiatrist:Dr. Wright ([facility]) [Other] - 10/18/24 11:00 am (This is a new patient appointment with a new prescriber; it will be in person at the OTP program and will be an hour long If you run out of prescriptions prior to appointment, call the above number and hit option 3, as Curtis Chavez should be giving refills until you see the new prescriber) Dentist: [facility] [Other] - 09/20/24 3:30 pm Mall Plant Caretaker: Annetta Evans ([facility]) [Other] - 10/03/24 1:30 pm Lesia Tran MD [Physician] - 09/19/24 2:30 pm () Kendra Fine FNP- [Nurse Practitioner] - 10/13/24 9:30 am Discharge Medications: New sulfamethoxazole-trimethoprim 800-160 mg Tablet 1 tab PO BID 3 Days Qty: 7 0RF methadone [Methadose] 10 mg/mL Concentrate 20 mg PO DAILY@1700 Qty: 0 0RF Rx Instructions: Partial Fill upon patient request. furosemide 40 mg Tablet 40 mg PO DAILY 30 Days Qty: 30 0RF Protocol: Hold for SBP< HOLD for SBP < : 90 fluticasone furoate-vilanterol [Breo Ellipta] 200-25 mcg/dose blister with device 1 inh inhalation DAILY 30 Days Qty: 60 0RF Continued multivitamin [Daily-Rip] Tablet 1 tab PO DAILY 30 Days Qty: 30 0RF divalproex 250 mg Tablet,Delayed Release (Dr/Ec) 250 mg PO BID 30 Days Qty: 60 0RF polyethylene glycol 3350 17 gram Powder In Packet 17 g PO BID 30 Days Qty: 60 0RF Rx Instructions: hold for loose stool clonazepam 0.5 mg Tablet 0.5 mg PO TID PRN (Reason: Anxiety) 30 Days Qty: 70 0RF sennosides-docusate sodium [Senna Plus] 8.6-50 mg Tablet 2 tab PO BID 30 Days Qty: 120 0RF venlafaxine 150 mg Capsule,Extended Release 24hr 150 mg PO DAILY 30 Days Qty: 30 0RF nortriptyline 25 mg Capsule 25 mg PO BEDTIME 30 Days Qty: 30 0RF magnesium oxide 400 mg (241.3 mg magnesium) Tablet 400 mg PO BEDTIME 30 Days Qty: 30 0RF hydroxyzine HCl 25 mg Tablet 25 mg PO Q6H PRN (Reason: mild anxiety) 30 Days Qty: 60 0RF albuterol sulfate [Ventolin HFA] 90 mcg/actuation Hfa Aerosol Inhaler 2 puff inhalation RQ4H PRN (Reason: Shortness Of Breath) 30 Days Qty: 6.7 0RF lactulose 10 gram/15 mL Solution 20 g PO DAILY PRN (Reason: Constipation) 30 Days Qty: 473 0RF ferrous sulfate 324 mg (65 mg iron) Tablet,Delayed Release (Dr/Ec) 324 mg PO DAILY 30 Days Qty: 30 0RF Creon 12,000-38,000 -60,000 unit Capsule,Delayed Release(Dr/Ec) 2 cap PO TIDWM 30 Days Qty: 180 0RF guanfacine 1 mg Tablet Extended Release 24 Hr 1 mg PO DAILY 30 Days Qty: 30 0RF acetaminophen 325 mg Tablet 650 mg PO Q6H PRN (Reason: Headache/Pain, Scale 1-10) Qty: 0 0RF methadone [Methadose] 10 mg/mL Concentrate 100 mg PO DAILY@0800 Qty: 0 0RF Rx Instructions: Partial Fill upon patient request. aspirin 81 mg tablet,delayed release (DR/EC) 81 mg PO DAILY Changed clonidine HCl 0.1 mg Tablet See Rx Instructions .ROUTE .COMPLEX Qty: 120 0RF Protocol: Hold for SBP< HOLD for SBP < : 90 Rx Instructions: Take 1 tab every morning and 1 tab every night; may take an additional tab twice a day as needed for moderate anxiety olanzapine 5 mg Tablet 5 mg PO DAILY PRN (Reason: agitation) 30 Days Qty: 30 0RF hydrocortisone [Proctozone-HC] 2.5 % Cream With Perineal Applicator 1 appl FL DAILY PRN (Reason: hemorrhoids) 30 Days Qty: 30 0RF famotidine 20 mg Tablet 20 mg PO BID 30 Days Qty: 60 0RF Discontinued fluticasone furoate-vilanterol [Breo Ellipta] 200-25 mcg/dose Blister With Device 1 inh INHALATION DAILY fluoxetine 20 mg capsule 60 mg PO DAILY cefpodoxime 200 mg Tablet 200 mg PO BID Rx Instructions: must administer with a meal/food quetiapine 25 mg Tablet 75 mg PO BID Qty: 0 0RF clonidine HCl 0.1 mg Tablet 0.1 mg PO BID PRN (Reason: moderate anxiety) Qty: 0 0RF Protocol: Hold for SBP< HOLD for SBP < : 90 trazodone 50 mg Tablet 50 mg PO BEDTIME MRX1 PRN (Reason: Insomnia) Qty: 0 0RF nicotine (polacrilex) 2 mg Gum 4 mg buccal Q2H PRN (Reason: Nicotine Cravings) Qty: 0 0RF magnesium hydroxide [Milk of Magnesia] 400 mg/5 mL Suspension 30 ml PO DAILY PRN (Reason: Constipation) Qty: 0 0RF nicotine 21 mg/24 hr Patch 24 Hour 21 mg transdermal DAILY PRN (Reason: smoking cessation) Qty: 0 0RF methadone [Methadose] 10 mg/mL Concentrate 25 mg PO DAILY@1700 Qty: 0 0RF Rx Instructions: Partial Fill upon patient request. MAG-AL 200-200 mg/5 mL Suspension 30 ml PO Q6H PRN (Reason: Heartburn/Nausea) Qty: 0 0RF cefpodoxime 200 mg tablet 200 mg PO BID Qty: 22 0RF Rx Instructions: must administer with a meal/food sulfamethoxazole-trimethoprim 800-160 mg tablet 1 tab PO BID Qty: 22 0RF mirtazapine 15 mg tablet 15 mg PO BEDTIME esomeprazole magnesium [Nexium] 40 mg capsule,delayed release(DR/EC) 40 mg PO DAILY Qty: 30 5RF Discharge Orders: Discharge Order (Routine); Ordered 09/11/24 Ordered By: Vaughn Carballo Diet: Regular diet Activity on Discharge: As tolerated Stand Alone Forms: Patient Portal Discharge page Print Language: Congolese Care Plan Goals: Maintain mood and safe behaviors Take medications as prescribed Continue to pursue sobriety Practice coping skills Continue with outpatient providers and reach out to them as needed Health Concerns: Mood stability and behaviors Recovering from bilateral pneumonia on home oxygen while ambulating [place]; does not tolerate CPAP; oxygen while sleeping Hx of hemorrhoidal bleed: 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 Patient was interviewed prior to discharge and found to be fully oriented and without any SI or HI. Patient has improved insight and judgment and wants to continue treatment. Patient is not in imminent risk of harm to self or others and has a safety plan that includes presenting to the closest ER or calling 911 if feeling unsafe.? Patient has been observed closely by nursing and unit staff throughout admission; patient has not engaged in any behaviors that suggest dangerousness to self or others and has demonstrated appropriate behaviors and impulse control Discharge Date/Time: 09/11/24 15:09
[2024-09-11] MEDS: methADONE HCl 20 MG/2 ML ORAL.CONC PO (14:36)
== END 2024-09-11 15:09 | disposition home or self-care (01) | DRG 751 ==
PROVIDERS: Social Worker; Admitting Provider Psychiatry & Neurology Psychiatry; Visit Provider Psychiatry & Neurology Psychiatry
DX: F33.1 Major depressive disorder, recurrent, moderate (principal); J15.212 Pneumonia due to Methicillin resistant Staphylococcus aureus; R45.851 Suicidal ideations; F11.20 Opioid dependence, uncomplicated; G47.33 Obstructive sleep apnea (adult) (pediatric); F40.01 Agoraphobia with panic disorder; E66.813 Obesity, class 3; Z71.3 Dietary counseling and surveillance; Z68.42 Body mass index [BMI] 45.0-49.9, adult; Z79.82 Long term (current) use of aspirin; Z79.899 Other long term (current) drug therapy
CPT/HCPCS: 36415; 80053; 80061; 82607; 82746; 83036; 84443

== ENCOUNTER → 2024-08-30 21:43 | Outpatient (BNV) | payer OTHER, SELFPAY | PROVIDERS: Admitting Provider Psychiatry & Neurology Psychiatry; Visit Provider Psychiatry & Neurology Psychiatry | DX: F33.1 Major depressive disorder, recurrent, moderate (principal); F41.9 Anxiety disorder, unspecified; F40.00 Agoraphobia, unspecified; F11.90 Opioid use, unspecified, uncomplicated; J18.9 Pneumonia, unspecified organism | CPT/HCPCS: 99231 ==

== ENCOUNTER → 2024-08-30 21:43 | Outpatient (BNV) | payer OTHER, SELFPAY | PROVIDERS: Admitting Provider Psychiatry & Neurology Psychiatry; Visit Provider Psychiatry & Neurology Psychiatry | DX: F33.1 Major depressive disorder, recurrent, moderate (principal) | CPT/HCPCS: 99231; 99232 ==

== ENCOUNTER → 2024-08-30 21:43 | Outpatient (BNV) | payer MEDICAID, SELFPAY | PROVIDERS: Admitting Provider Psychiatry & Neurology Psychiatry; Visit Provider Internal Medicine Pulmonary Disease | DX: J96.01 Acute respiratory failure with hypoxia (principal); J18.9 Pneumonia, unspecified organism; J81.1 Chronic pulmonary edema | CPT/HCPCS: 99222 ==

== ENCOUNTER 2024-09-19 15:07 | Outpatient (REF) | payer MEDICAID, SELFPAY ==
[2024-09-19 16:55] LABS: Anion Gap 14 (12-20); Blood Urea Nitrogen 12 mg/dL (9-16); Carbon Dioxide 34 mmol/L (22-29); Chloride 98 mmol/L (96-108); Cholesterol 184 mg/dL (<200); Estimated Glomerular Filt Rate > 60; Glucose Random 150 mg/dL (60-115); HDL Cholesterol 43 mg/dL (>40); LDL Cholesterol Calculated 81 mg/dL (<100); Potassium 3.8 mmol/L (3.3-5.1); Sodium 142 mmol/L (135-145); Triglycerides 304 mg/dL (<150)
[2024-09-19 17:02] LABS: Erythrocyte Sedimentation Rate 38 MM/HR (0-15)
[2024-09-19 17:09] LABS: TSH reflex Free T4 1.41 uIU/mL (0.32-4.0)
[2024-09-19 17:38] LABS: Rheumatoid Factor < 13.0 IU/mL (<15.0)
--- OUTSIDE RECORDS SUMMARY | 2024-09-19 17:38 | XMS_ITS | Encounter Summary ---
Author Organization [employer] Address [address] [place] [address] Care Team Providers Care Clinical Trial Assistant Name Role Phone Lesia Tran MD Primary Care Provider + Carlos Muñiz RN Unavailable [phone] Jennifer Burgess Unavailable Reason for Visit * Reason Onset Date Comments chart prep 09/18/2024 Encounter Details Date Type Department Care Team (Late st Contact Info) Description 09/18/2024 Telephone [facility] [address] [place], [place] [phone] Lesia Tran MD [address] [place] [address] chart prep Social History Tobacco Use Types Packs/Day Years Used Date Smoking Tobacco: Former Cigarettes 0.3 0.5 Passive Smoke Exposure: Past Smokeless Tobacco: Former Alcohol Use Standard Drinks/Week Comments Defer 0 (1 standard drink = 0.6 oz pur e alcohol) Depression Answer Date Recorded Patient Health Questionnaire-9 Score 22 09/12/2024 Patient Health Questionnaire-9 Score 22 09/12/2024 Last PHQ-9: Questionnaire Data Not on file 0 09/12/2024 Housing Stability Answer Date Recorded What is your housing situation today? I do not have housing (Staying with others, in a hotel, in a chcf, living outside on the street, on a beach, in a car, or in a park 09/12/[address] you li ve. Do you have problems with any of the following? None of the above 09/12/2024 Food Insecurity Answer Date Recorded Within the past 12 months, y ou worried that your food would run out before you got money to buy more: Sometimes True 2024 Within the past 12 months,th e food you bought just didn't last and you didn't have enough money to get more: Sometimes True 09/12/2024 Transportation Answer Date Recorded In the past 12 months, has l ack of transportation kept you from medical appts, meetings, work or from getting things needed for daily living? Yes, it has kept me from medical appointments or getting medications. 09/12/2024 Intimate Partner Violence Answer Date R ecorded Within the last year, have y ou been afraid of your partner or ex-partner? 2 09/12/2024 Within the last year, have y ou been humiliated or emotionally abused in other ways by your partner or ex-partner? 2 Within the last year, have y ou been kicked, hit, slapped, or otherwise physically hurt by your partner or ex-partner? 2 09/12/2024 Within the last year, have y ou been raped or forced to have any kind of sexual activity by your partner or ex-partner? 2 09/12/2024 Utilities Answer Date Recorded In the past 12 months, has t he electric, gas, oil or water company threatened to shut off services in your home? No 02/02/2024 Depression Answer Date Recorded Patient Health Questionnaire-2 Score 3 09/12/2024 Internet Access Answer Date Recorded Internet Access [...] encounter Miscellaneous Notes * Telephone Encounter - Shanel Hamm [place] - 09/18/2024 10:49 AM EDT Chart Prep Labs: done Images: done Referrals: complete Vaccines due: Covid, Flu, and PCV20 Screenings: not applicable Overdue care gaps: PHQ-9, JIMMIE-7, and Tobacco documented in this encounter Plan of Treatment Upcoming Encounters Date Type Department Care Team (Late st Contact Info) Description 09/20/2024 3:30 PM EDT Office Visit [facility] [address] [place] [address] Trenton Wilkerson DDS [address] [place] [address] 10/02/2024 1:00 PM EDT Office Visit [facility] OPT[facility] [address] [place] [address] Mariah Villaseñor, OD [address] [place] [address] 12/05/2024 12:00 PM EDT Telemedicine [facility] [address] [place] [address] Lesia Tran MD [address] [place] [phone] documented as of this encounter Visit Diagnoses Not on filedocumented in this encounter Additional Health Concerns Assessment Noted Time PHQ-9 Depression Total Score: 22 025 11:24 AM EDT documented as of this encounter Care Teams Clinical Trial Assistant Relationship Specialty Start Date End Date Lesia Tran MD [address] [place] [id number] PCP - General Internal Medicine 12/07/23 Carlos Muñiz, ROXANN [address] [place] [id number] Registered Nurse Family Medicine 09/06/24 Jennifer Burgess 09/07/24 documented as of this encounter
[2024-09-19 17:49] LABS: Amphetamine Screen Urine Not Detected (Not Detect); Barbiturates, Urine Not Detected (Not Detect); Benzodiazepines Screen Urine Not Detected (Not Detect); Buprenorphine Scr Not Detected (Not Detect); Cannabinoid Screen Urine POSITIVE (Not Detect); Cocaine Screen Urine Not Detected (Not Detect); Fentanyl, urine Not Detected (Not Detect); Methadone Screen, Urine Positive (Not Detect); Opiate Screen Urine Not Detected (Not Detect); Oxycodone Screen Urine Not Detected (Not Detect); Phencyclidine Screen Urine Not Detected (Not Detect)
[2024-09-19 21:02] LABS: Reflex LDLD? No
[2024-09-20 08:45] LABS: CRP High Sensitivity 10.1 mg/L
[2024-09-21 11:49] LABS: Anti Nuclear Antibody Screen NEGATIVE (NEGATIVE)
== END 2024-09-19 15:08 | disposition home or self-care (01) ==
LOC: HO.HHCL 15:07
PROVIDERS: Nurse Practitioner Family; Registered Nurse; PCP Internal Medicine; Visit Provider Internal Medicine
DX: E66.01 Morbid (severe) obesity due to excess calories (principal); R73.01 Impaired fasting glucose; F33.2 Major depressive disorder, recurrent severe without psychotic features; F41.1 Generalized anxiety disorder; F41.0 Panic disorder [episodic paroxysmal anxiety]; J98.4 Other disorders of lung; I10 Essential (primary) hypertension
CPT/HCPCS: 36415; 80048; 80061; 80307; 84443; 85652; 86038; 86141; 86431

== ENCOUNTER 2024-09-20 12:49 | Outpatient (AMB) | payer MEDICAID, SELFPAY ==
--- NOTE | 2024-09-20 12:55 | MHC.OFFVIS ---
Vital Signs 09/20/24 13:00 Height 5 ft 7 in Weight 310 lb BMI 48.5 BP 124/78 Blood Pressure Location Lt brachial Position Sitting Pulse 92 Pulse Source Pulse Oximeter Pulse Oximetry (%) 92 Oxygen Delivery Method Nasal Cannula Intake Visit Reasons: hx, pneumonia/ ER FU ([facility]) Accompanied by: Brother Allergies Penicillins (PENICILLINS) Allergy (Unknown, Verified 09/20/24 13:03) RASH Medication List - Last Reconciled 09/20/24 by Cinthya Padgett LPN acetaminophen 650 mg (2 x 325 mg) PO Q6H PRN albuterol sulfate 90 mcg/actuation (Ventolin HFA) 2 puffs inhalation RQ4H PRN 30 days aspirin 81 mg PO DAILY clonazepam 0.5 mg PO TID PRN 30 days clonidine HCl See Protocol Take 1 tab every morning and 1 tab every night; may take an additional tab twice a day as needed for moderate anxiety divalproex 250 mg PO BID 30 days famotidine 20 mg PO BID 30 days ferrous sulfate 324 mg PO DAILY 30 days fluticasone furoate-vilanterol 200-25 mcg/dose (Breo Ellipta) 1 inh inhalation DAILY 30 days furosemide 40 mg See Protocol PO DAILY 30 days guanfacine ER 1 mg PO DAILY 30 days hydrocortisone 2.5% (Proctozone-HC) 1 appl NV DAILY PRN 30 days hydroxyzine HCl 25 mg PO Q6H PRN 30 days lactulose 20 grams (30 mL) PO DAILY PRN 30 days aoadfb-gjtswusk-dikywex 12,000-38,000 -60,000 unit (Creon) 2 caps PO TIDWM 30 days magnesium oxide 400 mg PO BEDTIME 30 days methadone (Methadose) 20 mg (2 mL) PO DAILY@1700 methadone (Methadose) 100 mg (10 mL) PO DAILY@0800 multivitamin (Daily-Rip tablet) 1 tab PO DAILY 30 days nortriptyline 25 mg PO BEDTIME 30 days olanzapine 5 mg PO DAILY PRN 30 days polyethylene glycol 3350 17 grams PO BID 30 days sennosides-docusate sodium 8.6-50 mg (Senna Plus) 2 tabs PO BID 30 days sulfamethoxazole-trimethoprim 800-160 mg 1 tab PO BID 3 days venlafaxine ER 150 mg PO DAILY 30 days HPI HPI hx, pneumonia/ ER FU ([facility]): Details: Yaniv is a pleasant 39 year old male, former 20 pack year smoker, quit 2 years ago, currently smoking marijuana/vaping with underlying asthma, TYSON unable to tolerate CPAP, nocturnal hypoxemia, bipolar disorder, h/o polysubstance abuse maintained on methadone and GERD. Today he presents for hospital follow up. He initially presented to the hospital on 08/16/2024 due to suicidal ideations and auditory/visual hallucinations. While awaiting inpatient psychiatric bed, pt was found to be hypoxic at 88% and CT of chest showed bilateral lower lobe pneumonia. Initially treated with ceftriaxone and doxycycline and then vancomycin added due to positive MRSA swab. Blood cultures negative was discharged to [facility] on cefuroxime and doxycycline for 5 more days, set to end on 08/28/2024.Ultimately swtiched to Bactrim which he completed 09/10 after a two week course. Prior respiratory panel negative and sputum culture unremarkable. He was evaluated by Dr. Evans in patient who reviewed chest CT and suspected a degree of micro aspirations contributing to findings. He was then evaluated inpatient by Dr. Nichols 2 weeks later who reviewed imaging with suspicions of pulmonary edema, and patient was started on Lasix 40 mg daily. He has upcoming appointment with cardiology. Swallowing difficulties persist with noted aspiration concerns, necessitating further evaluation during his upcoming ENT consultation. He had previously been referred to ENT last year however no showed appointment, now scheduled for next month. Since discharge patient reports overall improvement however continues with frequent shortness of breath, particularly after exertion activities like getting out of bed or showering. His respiratory issues coincide with coughing precipitating primarily during sleep. We again discussed prior history of obstructive sleep apnea, which was being managed by sleep medicine [facility] and he is interested in reinitiating CPAP therapy. He has been compliant with 1-2 L of supplemental oxygen which he has been wearing continuously. Furthermore, a possible link exists between elevated IgE levels and recurrent infections, prompting an upcoming immunological assessment. [facility] Medical History (Updated 09/20/24 @ 20:06 by Samantha Davis NP) Pulmonary edema Opioid use disorder Acute exacerbation of moderate persistent extrinsic asthma Pneumonitis Opioid use disorder, severe, in early remission Suicidal ideation Exocrine pancreatic insufficiency Polysubstance abuse No known health problems Social History Household Members: Family Housing: House Do you presently have visiting nurse or other home services: No Alcohol intake: former Comment: sitter at bedside Patient Tobacco Use Status: Former Tobacco user Substance Use Type: Marijuana Advance Directives Date on File: 03/15/24 service: No Sexual orientation: Straight/Heterosexual Review of Systems Const Denies fever(s) and Denies headache(s) Eyes Denies dry eyes, Denies irritation and Denies itchy eyes ENT Reports Normal hearing present, Denies headache(s), Reports nasal congestion and Denies sore throat Card Denies chest pain, Denies chest pain at rest, Denies chest pain with activity, Denies claudication, Reports dyspnea on exertion, Denies orthopnea and Denies paroxysmal nocturnal dyspnea Resp Denies excessive phlegm production, Denies pain on inspiration, Denies pain with cough, Reports dyspnea on exertion and Denies stridor Musc Denies myalgias Neuro Reports Normal hearing present and Denies headache(s) Nnamdi/Lymph Denies lymphadenopathy Aller/Immun Denies itchy eyes and Denies seasonal rhinorrhea Physical Exam Vital Signs: Last Vital Signs Pulse 92 09/20/24 13:00 BP 124/78 09/20/24 13:00 Pulse Ox 92 09/20/24 13:00 Oxygen Delivery Method Nasal Cannula 09/20/24 13:00 BMI result Body Mass Index 48.5 Const General: cooperative, no acute distress, well developed and alert Nutritional Appearance: obese Orientation/consciousness: patient oriented x3 Limitations: no limitations HEENT Head: Yes normal to inspection, Yes normocephalic and Yes atraumatic Ears: hearing grossly normal bilaterally and external ears normal Eyes General: appearance normal, both eyes and all related structures Eyelids: Yes eyelids normal Sclerae: sclerae normal EOM: EOMs intact bilaterally Neck Neck: Yes normal visual inspection and Yes no lymphadenopathy Lymphatic: no lymphadenopathy noted Chest Chest palpation & inspection: normal inspection of the chest Resp Effort & Inspection: normal respiratory effort, able to speak in complete sentences, no audible wheezes, no stridor, not tachypneic, no tripod positioning and no use of accessory muscles Auscultation: clear to auscultation bilaterally Cardio Jugular venous distension: no JVD Rate: regular rate Rhythm: regular rhythm Skin Other: warm, dry General skin exam: no rashes or lesions noted Neuro General: patient oriented x3 Cranial nerves: Yes Normal hearing present Cognition (Neuro): normal cognition Gait exam (Neuro): Normal gait present Extrem General: Yes normal to inspection, Yes capillary refill normal, Yes no clubbing, cyanosis or edema and Yes no pedal edema Psych Appearance: grossly normal and well kempt Mental Status: mental status grossly normal Speech and movement: Normal speech and movement present and Clear speech present Affect: Anxious affect present Attitude: cooperative Thought process: Normal thought process present Thought content: Normal thought content present Insight: Fair insight present (Psych) Judgement: Fair judgement present (Psych) Results Reviewed Results Reviewed: [address] [address] [address] Scan Report Signed with Addenda Patient: Yaniv Gutierrez MR#: [id number] : 1985 Acct:[id number] Age/Sex: 39 / M ADM Date: 08/27/24 Loc: [facility] 486-[address]: Lynn FALCON Ordering Physician: Lynn Irving Date of Service: 08/27/24 Procedure(s): CT angio chest PE protocol Accession Number(s): [id number] cc: Lynn Irving; [facility]~ Report Number: [id number]: Total DLP = 453.00 mGy-cm ADDENDUM08/27/2024 15:26:30 ADDENDUM: ADDENDUM: When compared with prior imaging dated 08/16/2024. Multifocal areas of consolidation and ground-glass have worsened particularly within the right upper lobe. This document has been electronically signed by: Ariel White MD on 08/27/2024 16:17:27 Addendum Dictated By: Ariel White MD Addendum Signed By: <Electronically signed by Ariel White MD in OV> 08/27/24 161 Addendum Cosigned By: DD/ TD/TT: 08/27/24 CLINICAL HISTORY: Elevatd d-dimer w tachycardia and O2 91%, PE r o CT angiography of the chest with IV contrast. 3D/MIP post processing reconstructions were performed. COMPARISON: CT chest dated 08/16/24 at 14:49 EDT FINDINGS: There are no intraluminal filling defects to suggest pulmonary embolism. No evidence of right heart strain. Visualized thyroid is unremarkable. No supraclavicular or axillary lymphadenopathy. Ascending aorta and main pulmonary artery are normal in caliber. No pericardial effusion. Normal esophagus. Multiple normal-sized mediastinal lymph nodes. No pleural effusion. Consolidation within the lower lobes bilaterally. Additional areas of consolidation and ground-glass within the right upper lobe. Trachea and central airways are clear. No significant bronchial wall thickening. No bronchiectasis. Hepatic steatosis. Small splenule present No acute fracture or suspicious bone lesion. IMPRESSION: 1. Multifocal areas of consolidation and ground-glass most pronounced within the lower lobes suggestive of multifocal pneumonia or aspiration pneumonitis. 2. No evidence of pulmonary embolism. 3. Hepatic steatosis. This document has been electronically signed by: Ariel White MD on 08/27/2024 15:26:30 Dictated By: Ariel Whiet MD Signed By: <Electronically signed by Ariel White MD in OV> 08/27/24 1527 DD/ 1526 TD/TT: 08/27/24 1526 Transcriptionis Assessment & Plan Assessment & Plan (1) Asthma: Code(s): J45.909 - Unspecified asthma, uncomplicated Category: Medical (2) Dyspnea on exertion: Code(s): R06.09 - Other forms of dyspnea Category: Medical (3) History of recent pneumonia: Code(s): Z87.01 - Personal history of pneumonia (recurrent) Category: Medical (4) Nocturnal hypoxemia: Code(s): G47.34 - Idiopathic sleep related nonobstructive alveolar hypoventilation Category: Medical (5) Cough: Code(s): R05.9 - Cough, unspecified Category: Medical Plan Advised to continue 2 liters of oxygen therapy with exertion and NOC, will perform 6MWT at next visit. Will send for repeat sleep study given new onset of continuous oxygen requirements. Will schedule follow-up CT scan in 4 weeks to reassess for resolution of PNA. Medication adjustment involves switching from Breo to Trelegy, discussing importance of good oral hygiene to prevent thrush, as he noted improvements with use while inpatient. Recurrent respiratory infections and elevated IgE levels, >3000 prompt referral to an advertising coordinator for immune function assessment. He continues to report dysphagia in addition to concerns of aspiration, will repeat MBSS and patient has upcoming ENT consultation. Engagement with a television cameraman is advised for differential evaluation of pulmonary-cardiac dynamics and continued need for lasix. He is aware to call if symptoms change or seek emergent care if symptoms worsen. All questions were answered and patient is in agreement of plan. Will follow-up in 4 weeks or sooner if needed. 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
[2024-09-20 13:00] VITALS: BP 124/78; PULSE 92; O2SAT 92; BMI 48.5
--- OUTSIDE RECORDS SUMMARY | 2024-09-20 14:41 | XMS_ITS | Encounter Summary ---
Author Organization [employer] Address [address] [facility] [address] [place] [address] Care Team Providers Care Associate Professor Of Music Name Role Phone Lesia Tran MD Primary Care Provider + Carlos Muñiz RN Unavailable [phone] Jennifer Burgess Unavailable Reason for Visit * Reason Onset Date Comments chart prep 09/18/2024 Encounter Details Date Type Department Care Team (Late st Contact Info) Description 09/18/2024 Telephone [facility] [address] [place], [place] [phone] Lesia Tran MD [address] [place] [address] chart prep Social History Tobacco Use Types [...] with others, in a hotel, in a residential, living outside on the street, on a [...] 09/20/2024 3:30 PM EDT Office Visit [facility] [address] [place] [address] Trenton Wilkerson DDS [address] [place] [address] 10/02/2024 1:00 PM EDT Office Visit [facility] [address] [place] [address] Mariah Villaseñor, OD [address] [place] [address] 12/05/2024 12:00 PM EDT Telemedicine [facility] [address] [place] [address] Lesia Tran MD [address] [place] [phone] documented as of this encounter Visit Diagnoses Not on filedocumented in this encounter Additional Health Concerns Assessment Noted Time PHQ-9 Depression Total Score: 22 025 11:24 AM EDT documented as of this encounter Care Teams Associate Professor Of Music Relationship Specialty Start Date End Date Lesia Tran MD [address] [place] [phone] PCP - General Internal Medicine 12/07/23 Carlos Muñiz, ROXANN [address] [place] [id number] Registered Nurse Family Medicine 09/06/24 Jennifer Burgess 09/07/24 documented as of this encounter
== END 2024-09-20 13:29 | disposition home or self-care (01) ==
LOC: HO.HPSW 12:50
PROVIDERS: PCP Internal Medicine; Visit Provider Nurse Practitioner Family
DX: J45.909 Unspecified asthma, uncomplicated (principal); R06.09 Other forms of dyspnea; Z87.01 Personal history of pneumonia (recurrent); G47.34 Idiopathic sleep related nonobstructive alveolar hypoventilation; R05.9 Cough, unspecified
CPT/HCPCS: 99215

== ENCOUNTER → 2024-09-20 12:49 | Outpatient (BNVA) | payer OTHER, SELFPAY | PROVIDERS: PCP Internal Medicine; Visit Provider Nurse Practitioner Family | DX: J45.909 Unspecified asthma, uncomplicated (principal); R06.09 Other forms of dyspnea; R05.9 Cough, unspecified; G47.34 Idiopathic sleep related nonobstructive alveolar hypoventilation; Z87.01 Personal history of pneumonia (recurrent) | CPT/HCPCS: 99212 ==

== ENCOUNTER 2024-10-02 13:38 | Outpatient (REF) | payer MEDICAID, SELFPAY ==
--- OUTSIDE RECORDS SUMMARY | 2024-10-02 14:08 | XMS_ITS | Encounter Summary ---
Author Organization [employer] Address [address] [facility] [address] [place] [address] Care Team Providers Care Sulfur Chloride Operator Name Role Phone Roma Bender Primary Care Provider [phone] Neetu Bah Unavailable Lesia Tran MD Primary Care Provider + Carlos Muñiz RN Unavailable [phone] Carlos Muñiz RN Unavailable [phone] Jennifer Burgess Unavailable Encounter Details Date Type Department Care Team (Late st Contact Info) Description 02/19/2023 Orders Only [facility] [address] [place] [address] Roma Bender FNP [address] [place] [address] Other acute gastritis, presence of bleeding unspecified [...] housing situation today? I have amandoabbi das 01/27/[address] you [...] Care Team (Late st Contact Info) Description 10/20/2024 11:00 AM EDT Office Visit [facility] AD[facility] D[facility] [address] [place] [address] Trenton Wilkerson DDS [address] [place] [address] 12/05/2024 12:00 PM EDT Telemedicine [facility] [address] [place] [address] Lesia Tran MD [address] [place] [address] documented as of this encounter Visit Diagnoses Diagnosis Other acute gastritis, presence of bleeding unspecified- Primary documented in this encounter Additional Health Concerns Assessment Noted Time PHQ-9 Depression Total Score: 11 023 3:14 PM EDT documented as of this encounter Care Teams Sulfur Chloride Operator Relationship Specialty Start Date End Date Roma Bender FNP [address] [place] [address] PCP - General Family Medicine 01/14/23 12/06/23 Lesia Tran MD [address] [place] [phone] PCP - General Internal Medicine 12/07/23 Neetu Bah AGNP [address] [place] [phone] Family Medicine 01/14/23 09/02/23 Carlos Muñiz RN [address] [place] [address] Registered Nurse Family Medicine 09/05/24 09/05/24 Carlos Muñiz RN [address] [place] [address] Registered Nurse Family Medicine 09/06/24 Jennifer Burgess 09/07/24 documented as of this encounter
--- OUTSIDE RECORDS SUMMARY | 2024-10-02 14:08 | XMS_ITS | Clinical Summary ---
Author Organization [facility] Address [address] [place] [address] Phone Care Team Providers Care Adobe Block Maker Name Role Phone Az Terrell Primary Care Provider [phone] Immunizations Immunization Administration Dates Next Due DTP [...] age to complete this topic Care Teams Adobe Block Maker Relationship Specialty Start Date End Date Az Terrell [address] [place] [phone] PCP - General 11/13/16
--- OUTSIDE RECORDS SUMMARY | 2024-10-02 14:09 | XMS_ITS | Data Portability ---
Author Organization [place] - [facility], Allergy Address [address] [address] Care Team Providers Care Bowling Ball Patcher Name Role Phone ZULEYMALESIA MACK Primary Care Provider [phone] Assessment Encounter Date Assessment Date Assessment LastModified by Organization Details LastModified Time 09/29/2024 09/29/2024 1. Septal Nasal Perforation The nasal perforation is attributed to previous drug use, and I recommend saline rinses to manage dryness and crust buildup. No surgical treatment is possible 2. Obstructive Sleep Apnea Presenting symptoms suggestive of sleep apnea necessitate a sleep study for confirmation. Should CPAP therapy be initiated, use the humidifier to alleviate nasal dryness for improved tolerance. 3. Aspirated Food and Fluids Aspiration incidents highlight the need for gastroenterological evaluation of his swallowing function. Memory issues may also influence this, warranting potential neurological consultation. He was discussed with PCP 4. Obesity The patient should pursue weight management to alleviate his respiratory and sleep-related conditions. Collaborative management with his PCP focuses on nutritional guidance and lifestyle changes. Procedure Documentation: - Nasal examination was performed to assess for perforation and inflammation. Informed consent was obtained. The patient agreed to the procedure. [email or web address] Not available 09/29/2024 11:32:07 Plan of Treatment Reminders Order Date Submit Date Provider Last Modified By Organization Details Last Modified Time Details Appointments None record ed. Lab None record ed. Referral None record ed. Procedures None record ed. Surgeries None record ed. Imaging None record ed. Medication Orders None record ed. Patient TargetsNo targets recorded. Patient Instructions Encounter Date Encounter Id Patient Instructions Last Modified By Organization Details Last Modified Time 09/29/2024 [id number] Please note: Parts of this encounter note have been generated by AI based on audio conversation. Patient consent was required prior to utilizing this technology. Content review was required prior to finalizing the note. [email or web address] Not available 09/29/2024 11:29:42 Reason for Referral None Reported. Problems Name Problem SNOMED Code Status Onset Date Resolution Date Notes Provider Name and Address Organization Details Recorded Time Perforation of nasal septum 69404641 Active 2023 MARTA MILLER MD [address] [facility], [place], [address], [facility] - [facility] 11:28:15 Chronic rhinitis 48352476 Active 2024 MARTA MILLER MD 100 [facility],[address], [place], [address], [facility] 11:27:47 Obstructive sleep apnea syndrome 50456124 Active 2024 MARTA MILLER MD 100 [facility],[address] [facility], [place], [address], [facility] 11:27:51 Oropharyngeal dysphagia 18298575 Active 2024 MARTA MILLER MD 100 [facility],[address], [place], [address], [facility] 11:28:01 Morbid obesity 507870349 Active 2024 MARTA MILLER MD 100 [facility],[address], [place], [address], [facility] 11:28:39 Problem Notes None recorded. Procedures Surgical History Date Name Laterality Status Provider Name and Address Organization Details Recorded Time 09/30/19 25 Fiberoptic Laryngoscopy (Comprehensive) completed MARTA ALAMO MD [address] [facility],[address], [address], [facility] 09/29/2024 11:32:45 Imaging Results None recorded. Procedure Notes None recorded. Medical Equipment None Reported. Allergies Allergen ID Allergen Name Allergen Category Reaction Reaction Severity Criticality Documentation Date Start Date Code Code System Note Provider Name and Address Organization Details Recorded Time 196447 Product containin g penicilli n (product) medicatio n Not available Not available Not available 09/29/2024 07139 8001 SNOMED Leisa joe [place] - [facility] 5 10:59:57 Medications Name Sig Start Date Stop Date Status Note LastModified by Organization Details LastModified Time quetiapine 25 mg tablet TAKE 3 TABLETS BY MOUTH TWICE A DAY 09/29 completed Not Available Not Available Not Available fluoxetine 40 mg capsule TAKE 1 CAPSULE BY MOUTH EVERY MORNING active Not Available Not Available No t Available clonidine HCl 0.1 mg tablet TAKE 1 TABLET (0.1 MG) BY MOUTH IF NEEDED IN THE MORNING AND AT BEDTIME (FOR ANXIETY). active Not Available Not Available No t Available doxycycline hyclate 100 mg capsule TAKE 1 CAPSULE BY MOUTH TWICE A DAY 09/29 completed Not Available Not Available Not Available clindamycin HCl 300 mg capsule TAKE 1 CAPSULE BY MOUTH EVERY 8 HOURS 09/29 completed Not Available Not Available Not Available divalproex 250 mg tablet,nasir yed release TAKE 1 TABLET BY MOUTH 2 TIMES DAILY active Not Available Not Available No t Available cefpodoxime 200 mg tablet TAKE 1 TABLET BY MOUTH 2 TIMES A DAY MUST ADMINISTE R WITH A MEAL/FOOD 09/29 completed Not Available Not Available Not Available senna 8.6 mg tablet TAKE 2 TABLETS BY MOUTH EVERY DAY AT BEDTIME NEEDED FOR CONSTIPAT ION active Not Available Not Available No t Available sucralfate 1 gram tablet TAKE 1 TABLET BY MOUTH AT BEDTIME 09/29 completed Not Available Not Available Not Available ondansetron HCl 4 mg tablet TAKE 1 TABLET BY MOUTH EVERY 8 HOURS NEEDED FOR NAUSEA AND VOMITING 09/29 completed Not Available Not Available Not Available famotidine 40 mg tablet TAKE 1 TABLET BY MOUTH EVERYDAY AT BEDTIME active Not Available Not Available No t Available clonazepam 0.5 mg tablet active Not Available Not Available Not Available olanzapine 5 mg tablet TAKE 1 TABLET BY MOUTH AT BEDTIME active Not Available Not Available No t Available hydroxyzine pamoate 50 mg capsule TAKE 1 CAPSULE BY MOUTH IF NEEDED IN THE MORNING AND AT BEDTIME FOR ANXIETY. active Not Available Not Available No t Available metronidazo le 500 mg tablet TAKE 1 TABLET BY MOUTH 3 TIMES DAILY FOR 7 DAYS 09/29 completed Not Available Not Available Not Available aspirin 81 mg tablet,nasir yed release TAKE 1 TABLET BY MOUTH EVERY DAY active Not Available Not Available No t Available acetaminoph en 500 mg tablet TAKE 1 TABLET BY MOUTH EVERY 4 TO 6 HOURS NEEDED 09/29 completed Not Available Not Available Not Available acetaminoph en ER 650 mg tablet,exte nded release TAKE 1 TAB BY MOUTH EVERY 8 HOURS IF NEEDED FOR MODERATE PAIN. DO NOT CRUSH, CHEW, OR SPLIT. 09/29 completed Not Available Not Available Not Available dicyclomine 20 mg tablet TAKE 1 TABLET BY MOUTH THREE TIMES A DAY 09/29 completed Not Available Not Available Not Available esomeprazol e magnesium 40 mg capsule,del ayed release TAKE 1 CAPSULE BY MOUTH EVERY DAY active Not Available Not Available No t Available hydroxyzine HCl 25 mg tablet TAKE 1 TABLET BY MOUTH THREE TIMES A DAY NEEDED FOR MILD ANXIETY 09/29 completed Not Available Not Available Not Available mirtazapine 15 mg tablet TAKE 1 TABLET BY MOUTH AT BEDTIME active Not Available Not Available No t Available ibuprofen 600 mg tablet TAKE 1 TABLET BY MOUTH EVERY 6 TO 8 HOURS NEEDED 09/29 completed Not Available Not Available Not Available cefuroxime axetil 500 mg tablet TAKE 1 TABLET BY MOUTH TWICE A DAY 09/29 completed Not Available Not Available Not Available ferrous sulfate 325 mg (65 mg iron) tablet,nasir yed release TAKE 1 TABLET BY MOUTH EVERY OTHER DAY SWALLOW WHOLE active Not Available Not Available No t Available ondansetron 4 mg disintegrat ing tablet TAKE 1 TABLET ORALLY EVERY 6 TO 8 HOURS NEEDED FOR NAUSEA AND VOMITING 09/29 completed Not Available Not Available Not Available fluoxetine 20 mg capsule TAKE 3 CAPSULES (60 MG) BY MOUTH IN THE MORNING. active Not Available Not Available No t Available Ventolin HFA 90 mcg/actuati on aerosol inhaler INHALE 2 PUFFS EVERY 4 HRS NEEDED FOR COUGH, WHEEZING, OR SHORTNESS OF BREATH 30 DAYS active Not Available Not Available No t Available oxycodone 5 mg tablet TAKE 1 TABLET EVERY 6 HOURS NEEDED FOR BREAKTHRO UGH PAIN. 09/29 completed Not Available Not Available Not Available hydroxyzine pamoate 25 mg capsule TAKE 1 CAPSULE (25 MG) BY MOUTH IF NEEDED IN THE MORNING AND AT BEDTIME FOR ANXIETY. 09/29 completed Not Available Not Available Not Available bupropion HCl XL 300 mg 24 hr tablet, extended release TAKE 1 TABLET BY MOUTH EVERY DAY IN THE MORNING active Not Available Not Available No t Available bupropion HCl XL 150 mg 24 hr tablet, extended release TAKE 1 TABLET BY MOUTH EVERY DAY IN THE MORNING 09/29 completed Not Available Not Available Not Available lactulose 10 gram/15 mL oral solution TAKE 30MLS BY MOUTH EVERY DAY NEEDED FOR CONSTIPAT ION FOR 30 DAYS active Not Available Not Available No t Available chlorhexidi ne gluconate 0.12 % mouthwash RINSE MOUTH 15ML (1 CAPFUL) FOR 30 SECONDS IN AM&EVENIN G AFTER BRUSHING, THEN SPIT DO NOT SWALLOW 09/29 completed Not Available Not Available Not Available quetiapine 50 mg tablet TAKE 1 + 1/2 TABLETS BY MOUTH TWICE A DAY active Not Available Not Available No t Available Gavilax 17 gram/dose oral powder 17 G BY MOUTH DAILY 09/29 completed Not Available Not Available Not Available magnesium 400 mg (as magnesium oxide) capsule TAKE 1 CAPSULE BY MOUTH EVERYDAY AT BEDTIME active Not Available Not Available No t Available Creon 36,000 unit-114,00 0 unit-180,00 0 unit capsule,del ayed release TAKE 2 CAPSULES BY MOUTH 3 TIMES A DAY EIF MEALS AND OR SNACKS active Not Available Not Available No t Available Breo Ellipta 100 mcg-25 mcg/dose powder for inhalation INHALE 1 PUFF DAILY 09/29 completed Not Available Not Available Not Available Incruse Ellipta 62.5 mcg/actuati on powder for inhalation INHALE 1 PUFF DAILY active Not Available Not Available No t Available Breo Ellipta 200 mcg-25 mcg/dose powder for inhalation INHALE 1 PUFF DAILY active Not Available Not Available No t Available Daily-Rip (with folic acid) 400 mcg tablet TAKE 1 TABLET BY MOUTH EVERY DAY active Not Available Not Available No t Available Zepbound 2.5 mg/0.5 mL subcutaneou s pen injector INJECT 0.5 ML (2.5 MG) UNDER THE SKIN 1 (ONE) TIME PER WEEK. active Not Available Not Available No t Available Vitals Date Recorded Body height Body mass index (BMI) Body weight Provider Name and Address Organization Details Last Updated DateTime 09/29/2024 170.18 cm 47 kg/m2 558985.71 g MARTA ALAMO MD [address] [place] [address], [phone] 09/29/2024 11:28:59 Social History Question Answer Notes LastModified by Organizat ion Details LastModified Time Tobacco Smoking Status Former Smoker MARTA ALAMO MD [address] [place] [address], [phone], [facility] 09/28/2024 11:16:55 Which Illicit Or Recreational Drugs Have You Used? Marijuana Information not available 09/28/2024 Sex: Unknown Functional Status Question Answer Note LastModified by Organizat ion Details LastModified Time Do you use any illicit or recreational drugs? Yes Information not available 09/28/2024 What is your level of alcohol consumption? former Information not available 09/28/2024 Mental Status None recorded. Family History Nothing Reported. Medical History Condition Response Anemia Y Anxiety Y Sleep Disorder Y GERD/Reflux Y Past Encounters Encounter ID Performer Location Encounter Start Date Encounter Closed Date Diagnosis/Indication Diagnosis SNOMED-CT Code Diagnosis ICD10 Code Diagnosis Note [id number] MARTA MORGAN MD [facility] [address] [address] 09/29/2024 10:27:25 09/29/2024 11:31:21 Chronic rhinitis 99389836 J31.0 Obstructiv e sleep apnea syndrome 73430024 G47.33 working with PCP on PSG Oropharyng eal dysphagia 00505999 R13.12 Perforatio n of nasal septum 14862347 J34.89 Morbid obesity 643164137 E66.01 Health Concerns Section Related Observation LastModified by Organization Detai ls LastModified Time None Recorded Concern Status LastModified by Organization Details LastModified Time None Recorded Advance Directives Directive None Recorded Payers Insurance Date Sequence Insurance Name Policy Number Policy Lopez Covered Member ID Lopez Member ID Guarantor Name 09/29/2024 1 [place] [facility] Yaniv Gutierrez [id number] Yaniv Gutierrez Notes Date Note Type Note Provider Name and Address Organization Details Recorded Time 09/29/2024 text/html The patient is a 39-year-old male presenting with nasal obstruction issues and suspected nasal perforation. He has a significant history of polysubstance use, predominantly through the nasal route with substances like cocaine, heroin, and oxycodone. Although largely abstinent for four years, he relapsed once during Thanksgiving. He describes the nasal blockage as a persistent issue accompanied by dryness and crust formation, necessitating manual clearance with tweezers. The nasal problems may be related to prior substance use, causing septal perforation and dryness, exacerbated by oxygen use due to underlying lung issues. His obesity, weighing approximately 300 pounds at a height of 5'7 , contributes to respiratory difficulties, for which he uses supplemental oxygen. The patient also reports symptoms of aspiration during swallowing, attributing it to a hole feeling in his throat, aligning with a previous study suggesting aspiration risks. MARTA ALAMO MD [address] [place] [address], [phone], [facility] - [facility] 09/29/2024 11:33:12
== END 2024-10-02 13:39 | disposition home or self-care (01) ==
LOC: HO.HHCL 13:38
PROVIDERS: PCP Internal Medicine; Visit Provider Registered Nurse
DX: Z13.89 Encounter for screening for other disorder (principal)

== ENCOUNTER 2024-10-03 13:28 | Outpatient (AMB) | payer MEDICAID, SELFPAY ==
[2024-10-03 13:50] VITALS: BMI 49.3
--- NOTE | 2024-10-03 13:50 | MHC.AMNUTRGE ---
VS Expanded 10/03/24 13:50 Height 5 ft 7 in Weight 314 lb 13.121 oz BMI 49.3 Intake Visit Reasons: Obesity Allergies Penicillins (PENICILLINS) Allergy (Unknown, Verified 09/20/24 13:03) RASH Nutrition Presentation Details: Pt presents for MNT f/u for morbid obesity d/t excessive caloric consumption. Pt presents with his mother Pt reports he has been in and out of hospital this past month due to anxiety/asthma Pt uses oxygen, gets tired easily Pt admits to increasing food intake, looking for high sugar foods. Pt verbalizes some food modifications in terms of less sugars discussed at last visit. He reports his willingness to restart reducing on portion sizes of foods but not willing to try new foods as we discussed importance of nutrient dense foods and exploring new flavors/textures/combinations/vegetables Pt denies diarrhea /constipation, reports having daily BM reports taking creon 2 caps tid takes dailly MVI BS Monitoring Most Recent Diabetes Results: Cholesterol, (<200) 184 mg/dL 09/19/24 HDL Cholesterol, (>40) 43 mg/dL 09/19/24 Triglycerides, (<150) 304 mg/dL H 09/19/24 Creatinine, (0.5-1.4) 0.95 mg/dL 09/19/24 BUN, (9-16) 12 mg/dL 09/19/24 Sodium, (135-145) 142 mmol/L 09/19/24 Potassium, (3.3-5.1) 3.8 mmol/L 09/19/24 Chloride, (96-108) 98 mmol/L 09/19/24 Carbon Dioxide, (22-29) 34 mmol/L H 09/19/24 Calcium, (8.4-10.2) 9.0 mg/dL 09/19/24 AST, (5-37) 18 U/L 08/31/24 ALT, (0-40) 15 U/L 08/31/24 Total Protein, (6.5-8.0) 6.5 g/dL 08/31/24 Albumin, (3.5-5.0) 3.4 g/dL L 08/31/24 [facility] Medical History (Updated 09/20/24 @ 20:06 by Samantha Davis NP) Pulmonary edema Opioid use disorder Acute exacerbation of moderate persistent extrinsic asthma Pneumonitis Opioid use disorder, severe, in early remission Suicidal ideation Exocrine pancreatic insufficiency Polysubstance abuse No known health problems Social History Household Members: Family Housing: House Do you presently have visiting nurse or other home services: No Alcohol intake: former Comment: sitter at bedside Patient Tobacco Use Status: Former Tobacco user Substance Use Type: Marijuana Advance Directives Date on File: 03/15/24 service: No Sexual orientation: Straight/Heterosexual Assessment & Plan Assessment & Plan (1) Morbid obesity due to excess calories: Code(s): E66.01 - Morbid (severe) obesity due to excess calories Category: Medical Plan: Wt: 134 Kg ( 07/28 ), 142kg(10/27) Est kcal needs as per MSJ: 3400 (40% carb, 30% protein/fat) Est fluid needs as per 25-30 ml/d: 4000 Est prot per day as per 1 g/kg bw: 134 Recommend fiber intake : 8-10 g per day and gradually increase to 25-28 g per day for women and 35-38 g for men or as tolerated Recommend sodium intake per day : less than 2000 mg Educated patient on: ( R = reviewed V = verbalizes understanding N/R = needs review N/A = not applicable Food sources of carbohydrate, adequate serving sizes and its role in various health conditions: R Differences between complex carbohydrates a simple carbohydrates, role of fiber in diet: R Lean protein sources of foods: R Differences between types of fats and role in diet (mono on saturated fat fatty acids, saturated fatty acids, trans fats): R V N/R Food sources of sodium in salt and healthy modifications for heart health in kidney health: R V R/V Vitamins and minerals: R V N/R Healthy plate method concept: R Physical activity: Benefits a precaution: R V N/R Patient Instructions: Resume reducing on portions of sugary foods (cereal,candies, desserts, pastries, breads,sodas, juice drinks, juices ) and reducing portions of starches including fried starches (rice/pastas/potatoes) Have 3 meals/day (example 9-10 am breakfast/2pm lunch, 6 pm dinner) choose 3-4 oz of lean protein/1 -2 cup of 1% milk , 1-2 starches , 2 fruits , 1 fat Have 1 protein shake (15-30 g protein) 1-2 times a day (as your snack in between meals or replacing the 4 am cereal meal) Coding Level of Care Code Nutr Indiv Subseq (01938) Diagnoses Morbid obesity due to excess calories E66.01 Time Spent (min) 30
--- OUTSIDE RECORDS SUMMARY | 2024-10-03 14:39 | XMS_ITS | Encounter Summary ---
Author Organization [employer] Address [address] [facility] [address] [place] [address] Care Team Providers Care Footwear Production Machine Operator Name Role Phone Roma Bender Primary Care Provider [phone] Neetu Bah Unavailable [phone] Lesia Tran MD Primary Care Provider + Carlos Muñiz RN Unavailable [phone] Carlos Muñiz RN Unavailable [phone] Jennifer Burgess Unavailable Encounter Details Date Type Department Care Team (Late st Contact Info) Description 02/19/2023 Orders Only [facility] [address] [place] [address] Roma Bender FNP [address] [place] [address] Other acute gastritis, presence of bleeding unspecified [...] Description 10/20/2024 11:00 AM EDT Office Visit [facility] [address] [place] [address] Trenton Wilkerson DDS [address] [place] [address] 12/05/2024 12:00 PM EDT Telemedicine [facility] [address] [place] [address] Lesia Tran MD [address] [place] [address] documented as of this encounter Visit Diagnoses Diagnosis Other acute gastritis, presence of bleeding unspecified- Primary documented in this encounter Additional Health Concerns Assessment Noted Time PHQ-9 Depression Total Score: 11 023 3:14 PM EDT documented as of this encounter Care Teams Footwear Production Machine Operator Relationship Specialty Start Date End Date Roma Bender FNP [address] [place] [address] PCP - General Family Medicine 01/14/23 12/06/23 Lesia Tran MD [address] [place] [id number] PCP - General Internal Medicine 12/07/23 Neetu Bah AGNP [address] [place] [phone] Family Medicine 01/14/23 09/02/23 Carlos Muñiz RN [address] [place] [address] Registered Nurse Family Medicine 09/05/24 09/05/24 Carlos Muñiz RN [address] [place] [address] Registered Nurse Family Medicine 09/06/24 Jennifer Burgess 09/07/24 documented as of this encounter
--- OUTSIDE RECORDS SUMMARY | 2024-10-03 14:39 | XMS_ITS | Clinical Summary ---
Author Organization [facility] Address [address] [place] [address] Phone Care Team Providers Care Truck Body Builder Apprentice Name Role Phone Az Terrell Primary Care Provider [phone] Immunizations Immunization Administration Dates Next Due DTP [...] 05/27/2009 05/27/1999, 06/02/1998, 11/02/1997, Additional history exists COVID-19 Vaccine ( season) 2023 Influenza Vaccines (#1) 2024 HIB Vaccines Completed 07/03/1989 IPV Vaccines Completed [...] age to complete this topic Care Teams Truck Body Builder Apprentice Relationship Specialty Start Date End Date Az Terrell [address] [place] [id number] PCP - General 11/13/16
--- OUTSIDE RECORDS SUMMARY | 2024-10-03 14:40 | XMS_ITS | Data Portability ---
Author Organization [place] - [facility], Allergy Address [address] [address] Care Team Providers Care Refrigeration Service Inspector Name Role Phone ZULEYMALESIA Primary Care Provider [phone] Assessment Encounter Date Assessment Date Assessment LastModified [...] By Organization Details Last Modified Time 09/29/2024 [id number] Please note: Parts of this encounter note [...] Details Recorded Time Perforation of nasal septum 56468499 Active 2023 MARTA MILLER MD 100 [facility] [place], [place], [address], [facility] - [facility] 11:28:15 Chronic rhinitis 81103949 Active 2024 MARTA MILLER MD 100 [facility],[address], [place], [address], [facility] 11:27:47 Obstructive sleep apnea syndrome 69527354 Active 2024 MARTA MILLER MD 100 [facility],[address] [facility], [place], [address], [facility] 11:27:51 Oropharyngeal dysphagia 80125779 Active 2024 MARTA MILLER MD 100 [facility],[address], [place], [address], [facility] 11:28:01 Morbid obesity 183447605 Active 2024 MARTA MILLER MD 100 [facility],[address], [place], [address], [facility] 11:28:39 Problem Notes None recorded. Procedures Surgical History Date Name Laterality Status Provider Name and Address Organization Details Recorded Time 09/30/19 25 Fiberoptic Laryngoscopy (Comprehensive) completed MARTA ALAMO MD [address] [facility] [place],[address], [address], [facility] 09/29/2024 11:32:45 Imaging Results None recorded. Procedure Notes None recorded. Medical Equipment None Reported. Allergies Allergen ID Allergen Name Allergen Category Reaction Reaction Severity Criticality Documentation Date Start Date Code Code System Note Provider Name and Address Organization Details Recorded Time 123498 Product containin g penicilli n (product) medicatio n Not available Not available Not available 09/29/2024 79398 8001 SNOMED Lesia joe [place] - [facility] 5 10:59:57 Medications Name Sig Start [...] Updated DateTime 09/29/2024 170.18 cm 47 kg/m2 912301.71 g MARTA ALAMO MD [address] [place] [address], [phone] 09/29/2024 11:28:59 Social History Question Answer Notes LastModified by Organizat ion Details LastModified Time Tobacco Smoking Status Former Smoker MARTA AALMO MD [address] [place] [address], [address], [facility] 09/28/2024 11:16:55 Which Illicit Or Recreational [...] SNOMED-CT Code Diagnosis ICD10 Code Diagnosis Note [id number] MARTA MORGAN MD [facility] [address] [address] 09/29/2024 10:27:25 09/29/2024 11:31:21 Chronic rhinitis 16521853 J31.0 Obstructiv e sleep apnea syndrome 71776347 G47.33 working with PCP on PSG Oropharyng eal dysphagia 60952990 R13.12 Perforatio n of nasal septum 76508523 J34.89 Morbid obesity 777706903 E66.01 Health Concerns Section Related Observation LastModified by Organization Detai ls LastModified Time None Recorded Concern Status LastModified by Organization Details LastModified Time None Recorded Advance Directives Directive None Recorded Payers Insurance Date Sequence Insurance Name Policy Number Policy Lopez Covered Member ID Lopez Member ID Guarantor Name 09/29/2024 1 [place] [facility] Yaniv Gutierrez [id number] Yaniv Gutierrez Notes Date Note Type Note [...] study suggesting aspiration risks. MARTA ALAMO MD [address] [place] [address], [address], [facility] - [facility] 09/29/2024 11:33:12
== END 2024-10-03 14:20 | disposition home or self-care (01) ==
LOC: HO.ENCR 13:29
PROVIDERS: Visit Provider Dietitian, Registered
DX: E66.01 Morbid (severe) obesity due to excess calories (principal)

== ENCOUNTER → 2024-10-03 13:28 | Outpatient (BNVA) | payer MEDICAID, SELFPAY | PROVIDERS: Visit Provider Dietitian, Registered | DX: E66.01 Morbid (severe) obesity due to excess calories (principal) | CPT/HCPCS: 97803 ==

== ENCOUNTER 2024-10-13 09:07 | Outpatient (AMB) | payer MEDICAID, SELFPAY ==
--- NOTE | 2024-10-13 09:17 | A.OFFVIS_ITS ---
Vital Signs 10/13/24 09:19 Height 5 ft 7 in Weight 319 lb 10.724 oz BMI 50.1 BP 122/89 Blood Pressure Location Lt brachial Position Sitting Pulse 97 Pulse Oximetry (%) 95 Intake Visit Reasons: 30m Chronic abd pain, N+V mgmt. Intake Note: Yaniv presents in the office for chronic abd pains and n/v managment. CC: States that he has constipation - was in the hospital for a month. He has bloating and water retention all througout his body. He was having bleeding when he hafd BMS - it has stopped now but it happened about 3 times. Allergies Penicillins (PENICILLINS) Allergy (Unknown, Verified 09/20/24 13:03) RASH HPI HPI 30m Chronic abd pain, N+V mgmt.: Details: LAST VISIT: Exocrine pancreatic insufficiency GERD (gastroesophageal reflux disease) Epigastric abdominal pain Constipation Hiatal hernia Plan Patient will continue taking esomeprazole in the morning and famotidine at bedtime. Avoid dietary triggers in late night snacking. Discussed with patient putting his food on small plates, avoid high fat, high salt and high carb diet more vegetables and protein. Avoid fast food restaurants. Will send him to see a dietitian so they can help meal plan. Patient can try Zepbound and we can monitor his lipase. We will repeat pancreatic the last days again as his bowels normalize. Patient will follow-up in 3 months, sooner on as needed basis. He is agreeable to this plan and verbalizes understanding of instructions. He was given the opportunity to ask questions and all questions answered. ? Thank you for allowing me to participate in his care Referrals Water Hydrant Installer Nutrition Referral E66.01 TODAY'S VISIT Patient is here today for follow-up. Patient was admitted about a month ago for a month or so. Patient went to the hospital with suicidal ideation and hallucination, admitted to psych unit however became hypoxic and was moved to [facility] floor where he was receiving antibiotics. Patient had couple episodes of rectal bleed. Seen by Dr. Rodas, recommendation for non Urgent colonoscopy. Patient is on methadone, reports constipation and 3 episodes of blood after wiping. Proctosol given and since then patient has not experienced any more rectal bleed. Denies any melena. Patient has gain over 30 lb since I seen him last. Reports general body ache and swelling. Patient was placed on Lasix by her [facility] [place]. Patient is dozing off during the visit. Patient's mom reports that he does this all day. Patient is going to methadone clinic next week, will send a note with observation from today's visit. Patient's mom reports that he is sedentary and is not walking around anywhere. Patient's mom reports that she has to hide food from him. Patient sometimes will wake up in the middle of the night and will be having several servings of serial or other snacks [facility] Medical History (Updated 10/13/24 @ 19:26 by Kendra Fine [facility]) GERD (gastroesophageal reflux disease) Pulmonary edema Opioid use disorder Acute exacerbation of moderate persistent extrinsic asthma Pneumonitis Opioid use disorder, severe, in early remission Suicidal ideation Exocrine pancreatic insufficiency Polysubstance abuse No known health problems Surgical History Hx of tonsillectomy Social History Household Members: Family Housing: House Do you presently have visiting nurse or other home services: No Alcohol intake: former Comment: sitter at bedside Patient Tobacco Use Status: Former Tobacco user Substance Use Type: Marijuana Advance Directives Date on File: 03/15/24 service: No Sexual orientation: Straight/Heterosexual Review of Systems Const Denies weight gain and Denies weight loss ENT Reports no additional complaints, Denies dysphagia and Denies odynophagia Card Reports no additional complaints Resp Reports no additional complaints GI Reports abdominal pain (Generalized), Denies belching, Denies melena, Reports bloating, Denies change in bowel habits, Reports constipation (Improved), Denies dysphagia, Denies excessive flatus, Denies dyspepsia, Reports heartburn (Improved), Denies diarrhea, Denies loose stools, Denies nausea, Denies odynophagia and Denies vomiting Reports no additional complaints Musc Reports no additional complaints Neuro Reports no additional complaints Psych Reports no additional complaints Endo Reports no additional complaints Physical Exam Vital Signs: Last Vital Signs Pulse 97 10/13/24 09:19 BP 122/89 10/13/24 09:19 Pulse Ox 95 10/13/24 09:19 BMI result Body Mass Index 50.1 Const Other: On oxygen at 2 L via nasal cannula General: cooperative, healthy appearing, comfortable and no acute distress Nutritional Appearance: obese and other (Sleepy) Orientation/consciousness: patient oriented x3 Neck Neck: Yes normal visual inspection, Yes full ROM and Yes trachea midline Resp Other: Patient is wearing oxygen Effort & Inspection: able to speak in complete sentences, no tracheal deviation and symmetric chest movement Auscultation: clear to auscultation bilaterally Cardio Rate: regular rate GI Inspection: Yes normal to inspection and No distended Palpation (GI): Soft to palpation, not firm, nontender and No hepatosplenomegaly present Auscultation: normal bowel sounds General: Yes no CVA tenderness Back/Spine/Pelvis Back: no CVA tenderness Skin General skin exam: elasticity normal, turgor normal and dry skin Neuro General: patient oriented x3 Psych Appearance: grossly normal Mental Status: mental status grossly normal Assessment & Plan Assessment & Plan (1) Dysphagia: Code(s): R13.10 - Dysphagia, unspecified Category: Medical Qualifiers: Dysphagia type: oropharyngeal phase Qualified Code(s): R13.12 - Dysphagia, oropharyngeal phase (2) Exocrine pancreatic insufficiency: Code(s): K86.81 - Exocrine pancreatic insufficiency Category: Medical (3) Chronic abdominal pain: Code(s): R10.9 - Unspecified abdominal pain; G89.29 - Other chronic pain Category: Medical (4) GERD (gastroesophageal reflux disease): Code(s): K21.9 - Gastro-esophageal reflux disease without esophagitis Category: Medical Qualifiers: Esophagitis presence: esophagitis presence not specified Qualified Code(s): K21.9 - Gastro-esophageal reflux disease without esophagitis Plan Patient denies any dysphagia, dyspepsia or odynophagia. Long discussion with patient and mom about dietary choices. Patient was encouraged to eat small bites and small meals decreased caloric intake avoid salt. Patient recently placed on Lasix if seen by his [facility] [place] and has another follow-up appointment with him. Denies any melena, hematochezia. Continue senna and lactulose. Continue famotidine. Follow-up in 2-3 months. Patient was encouraged to call our office if he will have any GI concerning symptoms. Patient was encouraged to try to lose weight. He is agreeable to plan of care and verbalizes understanding of instructions. He was given the opportunity to ask questions and all questions answered. Thank you for allowing me to participate in his care Coding Level of Care Code Est Pt Level 4 (92524) Complex EM visit Add On G2211 Diagnoses Oropharyngeal dysphagia R13.12 Dysphagia type: oropharyngeal phase Exocrine pancreatic insufficiency K86.81 Chronic abdominal pain R10.9; G89.29 Gastroesophageal reflux disease, unspecified whether esophagitis present K21.9 Esophagitis presence: esophagitis presence not specified Time Spent (min) 40 Comment 25 minutes spent with patient and additional 15 minutes spent reviewing his records
[2024-10-13 09:19] VITALS: BP 122/89; PULSE 97; O2SAT 95; BMI 50.1
--- OUTSIDE RECORDS SUMMARY | 2024-10-13 09:21 | XMS_ITS | Data Portability ---
Author Organization [place] - [facility], Allergy Address [address] [address] Care Team Providers Care Technical Planner Name Role Phone ZULEYMALESIA Primary Care Provider [phone] Assessment Encounter Date Assessment Date Assessment LastModified [...] By Organization Details Last Modified Time 09/29/2024 91415 Please note: Parts of this encounter note [...] Details Recorded Time Perforation of nasal septum 97365597 Active 2023 MARTA MILLER MD 100 [facility] [place], [facility] [place], [address], [facility] - [facility] 11:28:15 Chronic rhinitis 51677168 Active 2024 MARTA MILLER MD 100 [facility],[address], [facility] [place], [address], [facility] 11:27:47 Obstructive sleep apnea syndrome 43070368 Active 2024 MARTA MILLER MD 100 [facility],[address] [facility], [facility] [place], [address], [facility] 11:27:51 Oropharyngeal dysphagia 54509121 Active 2024 MARTA MILLER MD 100 [facility],[address], [facility] [place], [address], [facility] 11:28:01 Morbid obesity 712461446 Active 2024 MARTA MILLER MD 100 [facility],[address], [facility] [place], [address], [facility] 11:28:39 Problem Notes None recorded. Procedures Surgical History Date Name Laterality Status Provider Name and Address Organization Details Recorded Time 09/30/19 25 Fiberoptic Laryngoscopy (Comprehensive) completed MARTA ALAMO MD 100 [facility] [place],[address], [address], [facility] 09/29/2024 11:32:45 Imaging Results None recorded. Procedure Notes None recorded. Medical Equipment None Reported. Allergies Allergen ID Allergen Name Allergen Category Reaction Reaction Severity Criticality Documentation Date Start Date Code Code System Note Provider Name and Address Organization Details Recorded Time 219394 Product containin g penicilli n (product) medicatio n Not available Not available Not available 09/29/2024 53162 8001 SNOMED Lesia joe [place] - [facility] 5 10:59:57 Medications Name Sig Start [...] Updated DateTime 09/29/2024 170.18 cm 47 kg/m2 078252.71 g MARTA ALAMO MD [address] [place] [address], [address] 09/29/2024 11:28:59 Social History Question Answer Notes LastModified by Organizat ion Details LastModified Time Tobacco Smoking Status Former Smoker MARTA ALAMO MD [address] [place] [address], [address], [facility] 09/28/2024 11:16:55 Which Illicit Or Recreational [...] SNOMED-CT Code Diagnosis ICD10 Code Diagnosis Note [id number] MARTA MORGAN MD [facility] [address] [address] 09/29/2024 10:27:25 09/29/2024 11:31:21 Chronic rhinitis 84452394 J31.0 Obstructiv e sleep apnea syndrome 88073427 G47.33 working with PCP on PSG Oropharyng eal dysphagia 49507133 R13.12 Perforatio n of nasal septum 85632062 J34.89 Morbid obesity 691235642 E66.01 Health Concerns Section Related Observation LastModified by Organization Detai ls LastModified Time None Recorded Concern Status LastModified by Organization Details LastModified Time None Recorded Advance Directives Directive None Recorded Payers Insurance Date Sequence Insurance Name Policy Number Policy Lopez Covered Member ID Lopez Member ID Guarantor Name 10/11/2024 1 [place] [facility] Yaniv Gutierrez [id number] Yaniv Gutierrez Notes Date Note Type Note [...] study suggesting aspiration risks. MARTA ALAMO MD [address] [place] [address], [address], [facility] - [facility] 09/29/2024 11:33:12
--- OUTSIDE RECORDS SUMMARY | 2024-10-13 09:21 | XMS_ITS | Encounter Summary ---
Author Organization [employer] Address [address] [facility] [address] [place] [address] Care Team Providers Care Signal Timer Name Role Phone Roma Bender Primary Care Provider [phone] Neetu Bah Unavailable Lesia Tran MD Primary Care Provider + Carlos Muñiz RN Unavailable [phone] Carlos Muñiz RN Unavailable [phone] Jennifer Burgess Unavailable Encounter Details Date Type Department Care Team (Late st Contact Info) Description 02/19/2023 Orders Only [facility] MED & PEDS [address] [place] [address] Roma Bender FNP [address] [place] [address] Other acute gastritis, presence of bleeding unspecified [...] Description 10/20/2024 11:00 AM EDT Office Visit [facility] ADULT DENTAL [address] [place] [address] Trenton Wilkerson DDS [address] [place] [address] 12/05/2024 12:00 PM EDT Telemedicine [facility] MEDICINE [address] [place] [address] Lesia Tran MD [address] [place] [address] documented as of this encounter Visit Diagnoses Diagnosis Other acute gastritis, presence of bleeding unspecified- Primary documented in this encounter Additional Health Concerns Assessment Noted Time PHQ-9 Depression Total Score: 11 023 3:14 PM EDT documented as of this encounter Care Teams Signal Timer Relationship Specialty Start Date End Date Roma Bender FNP [address] [place] [address] PCP - General Family Medicine 01/14/23 12/06/23 Lesia Tran MD [address] [place] [address] PCP - General Internal Medicine 12/07/23 Neetu Bah AGNP [address] [place] [phone] Family Medicine 01/14/23 09/02/23 Carlos Muñiz RN [address] [place] [address] Registered Nurse Family Medicine 09/05/24 09/05/24 Carlos Muñiz RN [address] [place] [address] Registered Nurse Family Medicine 09/06/24 Jennifer Burgess 09/07/24 documented as of this encounter
--- OUTSIDE RECORDS SUMMARY | 2024-10-13 09:21 | XMS_ITS | Clinical Summary ---
Author Organization [facility] Address [address] [place] [address] Phone Care Team Providers Care Bagger And Stock Handler Helper Name Role Phone Az Terrell Primary Care Provider [phone] Immunizations Immunization Administration Dates Next Due DTP [...] age to complete this topic Care Teams Bagger And Stock Handler Helper Relationship Specialty Start Date End Date Az Terrell [address] [place] [address] PCP - General 11/13/16
== END 2024-10-13 10:27 | disposition home or self-care (01) ==
LOC: HO.HGI 09:07
PROVIDERS: PCP Nurse Practitioner Family; Visit Provider Nurse Practitioner Family
DX: R13.12 Dysphagia, oropharyngeal phase (principal); K86.81 Exocrine pancreatic insufficiency; R10.9 Unspecified abdominal pain; G89.29 Other chronic pain; K21.9 Gastro-esophageal reflux disease without esophagitis
CPT/HCPCS: 99214

== ENCOUNTER → 2024-10-13 09:07 | Outpatient (BNVA) | payer MEDICAID, SELFPAY | PROVIDERS: PCP Nurse Practitioner Family; Visit Provider Nurse Practitioner Family | DX: R13.12 Dysphagia, oropharyngeal phase (principal); K86.81 Exocrine pancreatic insufficiency; R10.9 Unspecified abdominal pain; G89.29 Other chronic pain; K21.9 Gastro-esophageal reflux disease without esophagitis | CPT/HCPCS: 99212 ==

== ENCOUNTER 2024-10-15 09:48 | Emergency (ER) | payer MEDICAID, SELFPAY ==
--- NOTE | ~2024-10-15 | XR_ITS ---
CLINICAL HISTORY: hypoxia, recent PNA 2 views chest Comparison: CT/SR - CT ANGIO CHEST PE PROTOCOL - 08/27/24 14:38 EDT Findings: Cardiac and mediastinal contours are normal. Mild interstitial prominence with scattered peribronchial thickening. No focal consolidation. No effusion. No pneumothorax. No acute osseous finding. Impression: Mild interstitial prominence with scattered peribronchial thickening, similar to prior. No focal consolidation. This document has been electronically signed by: Guido Prather MD on 10/15/2024 11:55:23
[2024-10-15 10:01] VITALS: BP 130/78; BP 140/92; PULSE 102; PULSE 108; RESP 17; TEMP 36.6; O2SAT 94; O2SAT 97; BMI 50.1
--- NOTE | 2024-10-15 10:32 | ECG_ITS ---
Test Reason : WEAKNESS Blood Pressure : */* mmHG Vent. Rate : 91 BPM Atrial Rate : 91 BPM P-R Int : 150 ms QRS Dur : 100 ms QT Int : 384 ms P-R-T Axes : 38 2 39 degrees QTcB Int : 472 ms Normal sinus rhythm Normal ECG When compared with ECG of 27-Aug-2024 08:18, No significant change was found Referred By: Generic ED Physician Electronically Signed By: ROSAMARIA KUNZ
--- NOTE | 2024-10-15 11:03 | ED_ITS ---
HPI - General Adult General Chief complaint: General Medical Stated complaint: WEAK,N/V,HOT TO TOUCH, SWEATY/CLAMMY,INCR URINE Time Seen by Provider: 10/15/24 11:03 Source: patient Mode of arrival: EMS Limitations: no limitations History of Present Illness ED Provider: HPI narrative: 39-year-old male with remote history of opiate use disorder currently on methadone, denies ongoing drug use, presenting with cold and hot sweats, feeling nauseous, he states that this is actually recurrent for him, he typically receives improvement with fluids and benzos, he to take clonazepam at home, he did endorse SI and because he states when he feels this way he feels like he wants his life to be over but he states once he feels better he will no longer have SI, with that he has one-to-one at this time. No cough no diarrhea, he actually has constipation no dysuria. No sick contacts. Related Data Home Medications ?Medication ?Instructions ?Recorded ?Confirmed aspirin 81 mg tablet,delayed 81 mg PO DAILY 09/02/23 0 08/30/24 release famotidine 40 mg tablet 40 mg PO BEDTIME 10/13/24 venlafaxine 150 mg 150 mg PO DAILY 10/13/24 capsule,extended release 24 hr Previous Rx's ?Medication ?Instructions ?Recorded acetaminophen 325 mg tablet 650 mg (2 x 325 mg) PO Q6H PRN 08/27/24 Headache/Pain, Scale 1-10 #0 tabs methadone 10 mg/mL oral 100 mg (10 mL) PO DAILY@0800 #0 mL 08/27/24 concentrate (Methadose) albuterol sulfate 90 mcg/actuation 2 puff inhalation R Q4H PRN 09/11/24 aerosol inhaler (Ventolin HFA) Shortness Of Breath 30 days #6.7 grams clonazepam 0.5 mg tablet 0.5 mg PO TID PRN Anxiety 30 days 09/11/24 #70 tabs clonidine HCl 0.1 mg tablet See Rx Instructions .Route 09/11/24 .COMPLEX #120 tabs divalproex 250 mg tablet,delayed 250 mg PO BID 30 days #60 tabs 09/11/24 release ferrous sulfate 324 mg (65 mg 324 mg PO DAILY 30 days #30 tabs 09/11/24 iron) tablet,delayed release furosemide 40 mg tablet 40 mg PO DAILY 30 days #30 t abs 09/11/24 guanfacine 1 mg tablet,extended 1 mg PO DAILY 30 days #30 tabs 09/11/24 release 24 hr hydrocortisone 2.5 % topical cream 1 appl PA DAILY PRN hemorrhoids 30 09/11/24 with perineal applicator days #30 grams (Proctozone-HC) hydroxyzine HCl 25 mg tablet 25 mg PO Q6H PRN mild anx iety 30 09/11/24 days #60 tabs lactulose 10 gram/15 mL oral 20 g (30 mL) PO DAILY PRN 09/11/24 solution Constipation 30 days #473 mL hxttoc-brmtuucd-otxwblk 2 cap PO TIDWM 30 days #180 caps 09/11/24 12,000-38,000-60,000 unit capsule,delayed rel (Creon) magnesium oxide 400 mg (241.3 mg 400 mg PO BEDTIME 30 days #30 tabs 09/11/24 magnesium) tablet methadone 10 mg/mL oral 20 mg (2 mL) PO DAILY@1700 # 0 mL 09/11/24 concentrate (Methadose) multivitamin (Daily-Rip tablet) 1 tab PO DAILY 30 day s #30 tabs 09/11/24 nortriptyline 25 mg capsule 25 mg PO BEDTIME 30 days # 30 caps 09/11/24 olanzapine 5 mg tablet 5 mg PO DAILY PRN agitation 30 09/11/24 days #30 tabs sennosides 8.6 mg-docusate sodium 2 tab PO BID 30 days #120 tabs 09/11/24 50 mg tablet (Senna Plus) fluticasone fur. 200 mcg-umeclid 1 inh inhalation FLACO Y #60 ea 09/29/24 62.5 mcg-vilant 25 mcg inhalat.powder (Trelegy Ellipta) polyethylene glycol 3350 17 gram 17 g PO BID 90 days # 100 ea 10/10/24 oral powder packet Allergies Allergy/AdvReac Type Severity Reaction Status Date / Time Penicillins (PENICILLINS) Allergy Unknown RASH Verified 10/15/24 10:13 Review of Systems 2 Constitutional: Constitutional: Reports as per [facility] Past Medical History Medical History GERD (gastroesophageal reflux disease) Pulmonary edema Opioid use disorder Acute exacerbation of moderate persistent extrinsic asthma Pneumonitis Opioid use disorder, severe, in early remission Suicidal ideation Exocrine pancreatic insufficiency Polysubstance abuse No known health problems Surgical History Hx of tonsillectomy Social History Social History Household Members: Family Housing: House Do you presently have visiting nurse or other home services: No Alcohol intake: former Comment: sitter at bedside Patient Tobacco Use Status: Former Tobacco user Smoked in Last 30 Days: No Use of substances other than those prescribed or required for medical reasons: No Substance Use Type: Marijuana Advance Directives: No Advance Directives Information Provided: No Advance Directives Date on File: 03/15/24 service: No Sexual orientation: Straight/Heterosexual Physical Exam ED Vital Signs: Vital Signs - 24 hr 10/15/24 10:01 10/15/24 12:30 Temperature 97.8 F Pulse Rate 102 H 84 Respiratory Rate 17 12 Blood Pressure 140/92 H 115/67 Pulse Oximetry 94 96 Oxygen Delivery Method Nasal Cannula Room Air BMI result Body Mass Index 50.1 Const Other: * Gen: ?Young man appears to be older than stated age * HEENT: No scleral icterus * Neck: Supple, no LAD * CV: RRR, no obvious murmurs appreciated * Resp: Minimal wheezing, no rales or rhonchi * Abd: ?Bowel sounds are present, no tenderness no rebound no rigidity * MSK: FROM, strength 5/5 all extremities * Skin: No obvious rashes, he is sweaty * Neuro: ?Alert and oriented x3, moving upper and lower extremities symmetrically, no obvious facial asymmetry noted Medications Administered Discontinued Medications Generic Name Dose Route Start Last Admin Trade Name Freq PRN Reason Stop Dose Admin Diazepam 5 mg 10/15/24 11:23 10/15/24 11:43 Diazepam 10 Mg/2 Ml Cartridge IVPUSH 10/15/24 11:24 5 mg STAT STA Administration Sodium Chloride 1,000 mls @ 999 mls/hr 10/15/24 11:30 10/15/24 11:43 Ns IV 10/15/24 12:30 999 mls/hr .Q1H1M SHEELA Administration Medical Decision Making Medical Decision Making MDM Narrative: Patient is presenting with sweats, feeling unwell he states that this is a recurrent issue for him, on my exam he is not hypoxic that he was reportedly hypoxic when he was in the triage, he is presenting with possibly panic attacks he states he improves with anxiety medications, he did take clonazepam, he does have report of increased frequency we will check urinalysis however he also started Zepbound 2 days ago and he has some of the symptoms that started after that and I have considered that as a response to this medication but he states that this is actually recurrent issue, I will not he feels this way he feels suicidal, he has one-to-one but I believe that he is going to be cleared from SI standpoint and hopefully be able to get discharged 13:25 patient re-evaluated, he feels better, he was also seen by care team and cleared for discharge Differential Diagnosis Differential Diagnoses: The differential diagnosis associated with the presentation includes Cholecystitis, pancreatitis, hepatitis, gastritis, cholangitis, choledocholithiasis, pneumonia, appendicitis, diverticulitis, bacteremia Admission/Observation Consideration of admission/observation: Escalation of care including admission/observation considered Lab Data MDM Lab Attestation statement: I reviewed the patient's lab results. 10/15/24 11:01 10/15/24 11:19 Labs: Lab Results 10/15/24 10/15/24 10/15/24 Range/Units 11:01 11:18 11:19 WBC 9.1 (4.8-10.8) X10*3/uL RBC 4.71 (4.60-5.80) X10*6/uL Hgb 12.4 L (14.0-18.0) g/dl Hct 38.1 L (42.0-52.0) % MCV 80.9 (80.0-98.0) fL MCH 26.3 L (27.0-33.0) pg MCHC 32.5 (31.0-36.0) g/dl RDW 16.7 H (11.0-16.0) % Plt Count 228 (160-400) X10*3/uL MPV 8.5 L (9.4-12.4) fL Immature Gran % (Auto) 0.6 H (0.0-0.4) % Neut % (Auto) 80.8 H (45-73) % Lymph % (Auto) 7.6 L (20-40) % Hamilton % (Auto) 8.5 (2-11) % Eos % (Auto) 2.1 (0-4) % Baso % (Auto) 0.4 (0-2) % Lymph # (Auto) 0.7 L (1.2-4.9) X10*3/uL Hamilton # (Auto) 0.8 (0.1-1.2) X10*3/uL Eos # (Auto) 0.2 (0.0-0.4) X10*3/uL Baso # (Auto) 0.0 (0.0-0.2) X10*3/uL Abs Immat Gran (auto) 0.05 H (0.00-0.03) X10*3/uL Absolute Neuts (auto) 7.3 (2.0-8.3) x10*3/uL Absolute Nucleated RBC 0.000 (0.0-0.012) X10*3/uL Nucleated RBC % (auto) 0.0 (0.0-0.2) /100WBC Sodium 136 (135-145) mmol/L Potassium 4.7 D (3.3-5.1) mmol/L Chloride 96 (96-108) mmol/L Carbon Dioxide 30 H (22-29) mmol/L Anion Gap 15 (12-20) BUN 12 (9-16) mg/dL Creatinine 0.87 (0.5-1.4) mg/dL Estim Creat Clear Calc 160.6 Estimated GFR > 60 Random Glucose 138 H (60-115) mg/dL Lactic Acid 2.2 H* (0.5-2.0) mmol/L Calcium 9.1 (8.4-10.2) mg/dL Urine Opiates Screen Not Detected (Not Detect) Ur Buprenorphine Scrn Not Detected (Not Detect) ng/mL Ur Oxycodone Screen Not Detected (Not Detect) ng/mL Urine Methadone Screen Positive H (Not Detect) ng/mL Urine Fentanyl Screen Not Detected (Not Detect) Ur Barbiturates Screen Not Detected (Not Detect) Ur Phencyclidine Scrn Not Detected (Not Detect) Ur Amphetamines Screen Not Detected (Not Detect) U Benzodiazepines Scrn Not Detected (Not Detect) Urine Cocaine Screen Not Detected (Not Detect) U Marijuana (THC) Screen POSITIVE H (Not Detect) Influenza Type A (PCR) NEGATIVE (Negative) Influenza Type B (PCR) NEGATIVE (Negative) RSV RNA Qual (PCR) NEGATIVE (Negative) SARS-CoV-2 RNA (RT-PCR) NEGATIVE (Negative) Independent Interpretation I performed an independent interpretation of an: EKG (91 beats per minute otherwise normal ECG without dysrhythmia, AV emilia blocks or ST-T changes to suspect underlying ACS, my independent interpretation) and Plain X-Ray (My independent chest xray interpretation: Lungs: Lungs are clear bilaterally without evidence of focal consolidation, pleural effusion, or pneumothorax. Cardiac silhouette is unremarkable, no obvious mediastinal widening, no obvious bony abnormalities such as fractures. Impression: Normal chest X-r) Radiology Impression Discussion of test interpretation with radiology: I have reviewed the radiologist's reading. ( Impression: Mild interstitial prominence with scattered peribronchial thickening, similar to prior. No focal consolidation.) Discharge Plan Discharge Clinical Impression: Abnormal flushing and sweating, Passive suicidal ideations Patient Disposition: Home, Self-Care Additional Instructions: Your workup today has been reassuring there is no evidence for ongoing infection or any other blood work abnormalities, you were cleared by our care team for outpatient management, follow up with the provider, continue regular medications any other issues or concerns come back to the ED Prescriptions: No Action Trelegy Ellipta 200-62.5-25 mcg blister with device 1 inh inhalation DAILY Qty: 60 6RF polyethylene glycol 3350 17 gram powder in packet 17 g PO BID 90 Days Qty: 100 3RF Rx Instructions: hold for loose stool methadone [Methadose] 10 mg/mL Concentrate 20 mg PO DAILY@1700 Qty: 0 0RF Rx Instructions: Partial Fill upon patient request. furosemide 40 mg Tablet 40 mg PO DAILY 30 Days Qty: 30 0RF Protocol: Hold for SBP< HOLD for SBP < : 90 multivitamin [Daily-Rip] Tablet 1 tab PO DAILY 30 Days Qty: 30 0RF clonidine HCl 0.1 mg Tablet See Rx Instructions .ROUTE .COMPLEX Qty: 120 0RF Protocol: Hold for SBP< HOLD for SBP < : 90 Rx Instructions: Take 1 tab every morning and 1 tab every night; may take an additional tab twice a day as needed for moderate anxiety divalproex 250 mg Tablet,Delayed Release (Dr/Ec) 250 mg PO BID 30 Days Qty: 60 0RF clonazepam 0.5 mg Tablet 0.5 mg PO TID PRN (Reason: Anxiety) 30 Days Qty: 70 0RF sennosides-docusate sodium [Senna Plus] 8.6-50 mg Tablet 2 tab PO BID 30 Days Qty: 120 0RF olanzapine 5 mg Tablet 5 mg PO DAILY PRN (Reason: agitation) 30 Days Qty: 30 0RF nortriptyline 25 mg Capsule 25 mg PO BEDTIME 30 Days Qty: 30 0RF hydrocortisone [Proctozone-HC] 2.5 % Cream With Perineal Applicator 1 appl PA DAILY PRN (Reason: hemorrhoids) 30 Days Qty: 30 0RF magnesium oxide 400 mg (241.3 mg magnesium) Tablet 400 mg PO BEDTIME 30 Days Qty: 30 0RF hydroxyzine HCl 25 mg Tablet 25 mg PO Q6H PRN (Reason: mild anxiety) 30 Days Qty: 60 0RF albuterol sulfate [Ventolin HFA] 90 mcg/actuation Hfa Aerosol Inhaler 2 puff inhalation RQ4H PRN (Reason: Shortness Of Breath) 30 Days Qty: 6.7 0RF lactulose 10 gram/15 mL Solution 20 g PO DAILY PRN (Reason: Constipation) 30 Days Qty: 473 0RF ferrous sulfate 324 mg (65 mg iron) Tablet,Delayed Release (Dr/Ec) 324 mg PO DAILY 30 Days Qty: 30 0RF Creon 12,000-38,000 -60,000 unit Capsule,Delayed Release(Dr/Ec) 2 cap PO TIDWM 30 Days Qty: 180 0RF guanfacine 1 mg Tablet Extended Release 24 Hr 1 mg PO DAILY 30 Days Qty: 30 0RF acetaminophen 325 mg Tablet 650 mg PO Q6H PRN (Reason: Headache/Pain, Scale 1-10) Qty: 0 0RF methadone [Methadose] 10 mg/mL Concentrate 100 mg PO DAILY@0800 Qty: 0 0RF Rx Instructions: Partial Fill upon patient request. aspirin 81 mg tablet,delayed release (DR/EC) 81 mg PO DAILY famotidine 40 mg tablet 40 mg PO BEDTIME venlafaxine 150 mg capsule,extended release 24hr 150 mg PO DAILY Print Language: Hungarian
[2024-10-15 11:08] LABS: MANUAL DIFF FLAG NO
[2024-10-15 11:09] LABS: Hematocrit 38.1 % (42.0-52.0); Hemoglobin 12.4 g/dl (14.0-18.0); Imm Gran Abs Auto 0.05 X10*3/uL (0.00-0.03); Imm Gran Pct Auto 0.6 % (0.0-0.4); Lymphocytes Absolute Auto 0.7 X10*3/uL (1.2-4.9); Mean Corpuscular HGB Conc 32.5 g/dl (31.0-36.0); Mean Corpuscular Hemoglobin 26.3 pg (27.0-33.0); Mean Corpuscular Volume 80.9 fL (80.0-98.0); NRBC Abs Auto 0.000 X10*3/uL (0.0-0.012); NRBC Pct Auto 0.0 /100WBC (0.0-0.2); Platelet Count 228 X10*3/uL (160-400); Red Blood Count 4.71 X10*6/uL (4.60-5.80); White Blood Count 9.1 X10*3/uL (4.8-10.8)
[2024-10-15 11:20] LABS: Cannabinoid Screen Urine POSITIVE (Not Detect)
[2024-10-15 11:38] LABS: Anion Gap 15 (12-20); Blood Urea Nitrogen 12 mg/dL (9-16); Calcium 9.1 mg/dL (8.4-10.2); Carbon Dioxide 30 mmol/L (22-29); Chloride 96 mmol/L (96-108); Creatinine Clr Calc Pharmacy 160.6; Estimated Glomerular Filt Rate > 60; Potassium 4.7 mmol/L (3.3-5.1); Sodium 136 mmol/L (135-145)
[2024-10-15] MEDS: diazePAM 10 MG/2 ML CARTRIDGE 5 MG IVPUSH (11:43)
--- NOTE | 2024-10-15 11:56 | PC.NURSE ---
Pt BIBA from home reporting general weakness, malaise, nausea/vomiting x2 days. 10/10 pain in legs and 6/10 LLQ abdominal pain. He also reports increased urination. He started zepbound 2.5 mg two days ago and symptoms began after that. Also reports SI no plan, states he is tired of all his medical problems and has feelings of giving up. Pt changed over, belongings secured in closet. 1:1 at bedside. On arrival, spO2 88-90% on room air, pt placed on O2 2L NC spO2 at 94%. Pt stated he is on O2 2L at baseline. Took 100 mg methadone this morning. Hes alert and oriented, breathing unlabored, skin is pale and diaphoretic. NSR on tele. Voiding clear yellow urine in urinal, was reporting urinary frequency, denies pain or burning with urination. 20 g in left forearm, NS infusing. Blood work obtained and sent to lab. Pt medicated as charted. Plan of care on going.
[2024-10-15 12:03] LABS: Resp Syncy Virus RNA Qual PCR NEGATIVE (Negative); SARS COV2 PCR INHOUSE NEGATIVE (Negative)
[2024-10-15 12:30] VITALS: BP 115/67; PULSE 84; RESP 12; O2SAT 96
[2024-10-15 13:07] LABS: Reflex Lactate? Lactic Acid Added
--- NOTE | 2024-10-15 13:08 | PC.NURSE ---
Pt up to use urinal and IV pulled out. New 22g placed in left hand. Fluids still infusing. Pt reports feeling better, no longer having feelings of SI.
--- NOTE | 2024-10-15 14:10 | PC.NURSE ---
Per Dr Mancilla, no need for repeat Lactic. Also ok to d/c home without 02, pt with mother, lives short distance away (on same street as hospital)
[2024-10-15 14:12] VITALS: BP 107/61; PULSE 93; RESP 20; TEMP -17.7; TEMP 0; O2SAT 96
== END 2024-10-15 14:13 | disposition home or self-care (01) ==
PROVIDERS: Emergency Provider Emergency Medicine; PCP Internal Medicine
DX: F11.20 Opioid dependence, uncomplicated (principal); R53.1 Weakness; R61 Generalized hyperhidrosis; R45.851 Suicidal ideations; K59.00 Constipation, unspecified; R11.2 Nausea with vomiting, unspecified; R06.02 Shortness of breath; Z03.818 Encounter for observation for suspected exposure to other biological agents ruled out; Z79.899 Other long term (current) drug therapy; Z87.891 Personal history of nicotine dependence; Z51.81 Encounter for therapeutic drug level monitoring
CPT/HCPCS: 36415; 71046; 80048; 80307; 83605; 85025; 87040; 87086; 87637; 93005; 99285; J3360; S9485

== ENCOUNTER → 2024-10-15 09:49 | Outpatient (BNV) | payer MEDICAID, SELFPAY | PROVIDERS: Emergency Provider Emergency Medicine; PCP Internal Medicine; Visit Provider Radiology Vascular & Interventional Radiology | DX: R09.02 Hypoxemia (principal) | CPT/HCPCS: 71046 ==

== ENCOUNTER → 2024-10-15 10:32 | Outpatient (BNV) | payer MEDICAID, SELFPAY | PROVIDERS: Emergency Provider Emergency Medicine; PCP Internal Medicine; Visit Provider Internal Medicine | DX: R53.1 Weakness (principal) | CPT/HCPCS: 93010 ==

== ENCOUNTER 2024-10-16 12:49 | Outpatient (REF) | payer MEDICAID, SELFPAY ==
--- OUTSIDE RECORDS SUMMARY | 2024-10-16 13:46 | XMS_ITS | Clinical Summary ---
Author Organization [facility] Address [address] [place] [address] Phone Care Team Providers Care Deck Builder Name Role Phone Az Terrell Primary Care Provider [phone] Immunizations Immunization Administration Dates Next Due DTP [...] age to complete this topic Care Teams Deck Builder Relationship Specialty Start Date End Date Az Terrell [address] [place] [id number] PCP - General 11/13/16
--- OUTSIDE RECORDS SUMMARY | 2024-10-16 13:46 | XMS_ITS | Encounter Summary ---
Author Organization [employer] Address [address] [facility] [address] [place] [address] Care Team Providers Care Planting Supervisor Name Role Phone Roma Bender Primary Care Provider [phone] Neetu Bah Unavailable [phone] Lesia Tran MD Primary Care Provider + Carlos Muñiz RN Unavailable [phone] Carlos Muñiz RN Unavailable [phone] Jennifer Burgess Unavailable Encounter Details Date Type Department Care Team (Late st Contact Info) Description 02/19/2023 Orders Only [facility] MED & PEDS [address] [place] [address] Roma Bender FNP [address] [place] [address] Other acute gastritis, presence of bleeding unspecified [...] Description 10/20/2024 11:00 AM EDT Office Visit [facility] ADULT DENTAL [address] [place] [address] Trenton Wilkerson DDS [address] [place] [address] 12/05/2024 12:00 PM EDT Telemedicine [facility] MEDICINE [address] [place] [address] Lesia Tran MD [address] [place] [address] documented as of this encounter Visit Diagnoses Diagnosis Other acute gastritis, presence of bleeding unspecified- Primary documented in this encounter Additional Health Concerns Assessment Noted Time PHQ-9 Depression Total Score: 11 023 3:14 PM EDT documented as of this encounter Care Teams Planting Supervisor Relationship Specialty Start Date End Date Roma Bender FNP [address] [place] [address] PCP - General Family Medicine 01/14/23 12/06/23 Lesia Tran MD [address] [place] [id number] PCP - General Internal Medicine 12/07/23 Neetu Bah AGNP [address] [place] [phone] Family Medicine 01/14/23 09/02/23 Carlos Muñiz RN [address] [place] [address] Registered Nurse Family Medicine 09/05/24 09/05/24 Carlos Muñiz RN [address] [place] [address] Registered Nurse Family Medicine 09/06/24 Jennifer Burgess 09/07/24 documented as of this encounter
--- OUTSIDE RECORDS SUMMARY | 2024-10-16 13:46 | XMS_ITS | Data Portability ---
Author Organization [place] - [facility], All[facility] Address [address] [address] Care Team Providers Care Parlor Chaperone Name Role Phone ZULEYMALESIA Primary Care Provider Assessment Encounter Date Assessment Date Assessment LastModified [...] By Organization Details Last Modified Time 09/29/2024 [id number] Please note: Parts of this encounter note [...] Details Recorded Time Perforation of nasal septum 67020643 Active 2023 MARTA MILLER MD [address] [facility], [place], [address], [facility] - [facility] 11:28:15 Chronic rhinitis 20984795 Active 2024 MARTA MILLER MD [address] [facility],[address], [place], [phone], [facility] 11:27:47 Obstructive sleep apnea syndrome 87591329 Active 2024 MARTA MILLER MD [address] [facility],[address] [facility], [place], [address], [facility] 11:27:51 Oropharyngeal dysphagia 87758313 Active 2024 MARTA MILLER MD [address] [facility],[address], [place], [address], [facility] 11:28:01 Morbid obesity 096000329 Active 2024 MARTA MILLER MD [address] [facility],[address], [place], [address], [facility] 11:28:39 Problem Notes None recorded. Procedures Surgical History Date Name Laterality Status Provider Name and Address Organization Details Recorded Time 09/30/19 25 Fiberoptic Laryngoscopy (Comprehensive) completed MARTA ALAMO MD [address] [facility] [place],[address], [address], [facility] 09/29/2024 11:32:45 Imaging Results None recorded. Procedure Notes None recorded. Medical Equipment None Reported. Allergies Allergen ID Allergen Name Allergen Category Reaction Reaction Severity Criticality Documentation Date Start Date Code Code System Note Provider Name and Address Organization Details Recorded Time 544625 Product containin g penicilli n (product) medicatio n Not available Not available Not available 09/29/2024 93816 8001 SNOMED Lesia joe [place] - [facility] 5 10:59:57 Medications Name Sig Start [...] Updated DateTime 09/29/2024 170.18 cm 47 kg/m2 547570.71 g MARTA ALAMO MD [address] [place] [address], [phone] 09/29/2024 11:28:59 Social History Question Answer Notes LastModified by Organizat ion Details LastModified Time Tobacco Smoking Status Former Smoker MARTA ALAMO MD [address] [place] [address], [phone], [facility] 09/28/2024 11:16:55 Which Illicit Or Recreational [...] History Nothing Reported. Medical History Condition Response Anxiety Y Anemia Y Sleep Disorder Y GERD/Reflux Y Past Encounters Encounter ID Performer Location Encounter Start Date Encounter Closed Date Diagnosis/Indication Diagnosis SNOMED-CT Code Diagnosis ICD10 Code Diagnosis Note [id number] MARTA MORGAN MD [facility] [address] [address] 09/29/2024 10:27:25 09/29/2024 11:31:21 Chronic rhinitis 79978398 J31.0 Obstructiv e sleep apnea syndrome 63560525 G47.33 working with PCP on PSG Oropharyng eal dysphagia 40053703 R13.12 Perforatio n of nasal septum 94218830 J34.89 Morbid obesity 933379181 E66.01 Health Concerns Section Related Observation LastModified by Organization Detai ls LastModified Time None Recorded Concern Status LastModified by Organization Details LastModified Time None Recorded Advance Directives Directive None Recorded Payers Insurance Date Sequence Insurance Name Policy Number Policy Lopez Covered Member ID Lopez Member ID Guarantor Name 10/13/2024 1 MEDICAID-[place]: [facility] Yaniv Gutierrez [id number] Yaniv Gutierrez Notes Date Note Type Note [...] study suggesting aspiration risks. MARTA ALAMO MD [address] [place] [address], [phone], [facility] - [facility] 09/29/2024 11:33:12
[2024-10-16 14:32] LABS: Anion Gap 15 (12-20); Blood Urea Nitrogen 16 mg/dL (9-16); Calcium 9.0 mg/dL (8.4-10.2); Carbon Dioxide 25 mmol/L (22-29); Chloride 100 mmol/L (96-108); Estimated Glomerular Filt Rate > 60; Potassium 5.2 mmol/L (3.3-5.1); Sodium 135 mmol/L (135-145)
== END 2024-10-16 12:50 | disposition home or self-care (01) ==
LOC: HO.LAB 12:49
PROVIDERS: Visit Provider Internal Medicine Cardiovascular Disease
DX: R06.09 Other forms of dyspnea (principal)
CPT/HCPCS: 36415; 80048

== ENCOUNTER 2024-10-18 09:43 | Emergency (ER) | payer MEDICAID, SELFPAY ==
[2024-10-18 09:50] VITALS: BP 128/76; PULSE 117; O2SAT 97
[2024-10-18 09:52] VITALS: BP 152/97; PULSE 120; RESP 22; TEMP 36.4; O2SAT 94; BMI 54.7
--- NOTE | 2024-10-18 10:42 | ED_ITS ---
HPI - Nausea/Vomiting/Diarrhea General Chief complaint: Abdominal Pain Stated complaint: ABD/BACK PAIN,SI STATEMENTS PER EMS Time Seen by Provider: 10/18/24 10:42 History of Present Illness ED Provider: Dr. Les Blanchard HPI Narrative: 39-year-old male with a past medical history of opiate use disorder, MDD, polysubstance use, asthma, presenting to the ED via EMS complaining abdominal pain, nausea, vomiting, loss of appetite and suicidal ideation. Patient was started on a GLP 1 medication, Zepbound 4 weight loss. His 1st injection was on 10/13/2024. He states that since that injection he has not been feeling well. Patient is complaining of periumbilical and left lower quadrant deep, sharp/pressure-like , 8/10 pain which has been intermittent for the last 3-4 days. He states he has lost his appetite and despite trying to eat he is unable to eat. He states he has had episodes of feeling hot and cold but did not check his temperature. He states that his mouth feels very dry despite drinking fluid. The patient states he feels suicidal and stated ?I do not want to live my life like this anymore?. He told me that he did not have a plan to kill himself but if he were going to do it he would consider overdosing on his medications or drugs. The patient was seen here in the emergency department on 10/15/2024 with a similar presentation and had a CBC and CMP which was unremarkable. He was treated with diazepam 5 mg IV and normal saline IV x1 L with improvement of his symptoms. Also reported passive SI at that time and was seen by the care team who knows the patient well in his seen the patient multiple times for similar complaints. Care team felt that the patient had passive SI with no plan and he was discharged home. Related Data Home Medications ?Medication ?Instructions ?Recorded ?Confirmed aspirin 81 mg tablet,delayed 81 mg PO DAILY 09/02/23 0 08/30/24 release famotidine 40 mg tablet 40 mg PO BEDTIME 10/13/24 venlafaxine 150 mg 150 mg PO DAILY 10/13/24 capsule,extended release 24 hr Previous Rx's ?Medication ?Instructions ?Recorded acetaminophen 325 mg tablet 650 mg (2 x 325 mg) PO Q6H PRN 08/27/24 Headache/Pain, Scale 1-10 #0 tabs methadone 10 mg/mL oral 100 mg (10 mL) PO DAILY@0800 #0 mL 08/27/24 concentrate (Methadose) albuterol sulfate 90 mcg/actuation 2 puff inhalation R Q4H PRN 09/11/24 aerosol inhaler (Ventolin HFA) Shortness Of Breath 30 days #6.7 grams clonazepam 0.5 mg tablet 0.5 mg PO TID PRN Anxiety 30 days 09/11/24 #70 tabs clonidine HCl 0.1 mg tablet See Rx Instructions .Route 09/11/24 .COMPLEX #120 tabs divalproex 250 mg tablet,delayed 250 mg PO BID 30 days #60 tabs 09/11/24 release ferrous sulfate 324 mg (65 mg 324 mg PO DAILY 30 days #30 tabs 09/11/24 iron) tablet,delayed release furosemide 40 mg tablet 40 mg PO DAILY 30 days #30 t abs 09/11/24 guanfacine 1 mg tablet,extended 1 mg PO DAILY 30 days #30 tabs 09/11/24 release 24 hr hydrocortisone 2.5 % topical cream 1 appl AL DAILY PRN hemorrhoids 30 09/11/24 with perineal applicator days #30 grams (Proctozone-HC) hydroxyzine HCl 25 mg tablet 25 mg PO Q6H PRN mild anx iety 30 09/11/24 days #60 tabs lactulose 10 gram/15 mL oral 20 g (30 mL) PO DAILY PRN 09/11/24 solution Constipation 30 days #473 mL mxlgyr-fghjcupi-kresevr 2 cap PO TIDWM 30 days #180 caps 09/11/24 12,000-38,000-60,000 unit capsule,delayed rel (Creon) magnesium oxide 400 mg (241.3 mg 400 mg PO BEDTIME 30 days #30 tabs 09/11/24 magnesium) tablet methadone 10 mg/mL oral 20 mg (2 mL) PO DAILY@1700 # 0 mL 09/11/24 concentrate (Methadose) multivitamin (Daily-Rip tablet) 1 tab PO DAILY 30 day s #30 tabs 09/11/24 nortriptyline 25 mg capsule 25 mg PO BEDTIME 30 days # 30 caps 09/11/24 olanzapine 5 mg tablet 5 mg PO DAILY PRN agitation 30 09/11/24 days #30 tabs sennosides 8.6 mg-docusate sodium 2 tab PO BID 30 days #120 tabs 09/11/24 50 mg tablet (Senna Plus) fluticasone fur. 200 mcg-umeclid 1 inh inhalation FLACO Y #60 ea 09/29/24 62.5 mcg-vilant 25 mcg inhalat.powder (Trelegy Ellipta) polyethylene glycol 3350 17 gram 17 g PO BID 90 days # 100 ea 10/10/24 oral powder packet Allergies Allergy/AdvReac Type Severity Reaction Status Date / Time Penicillins (PENICILLINS) Allergy Unknown RASH Verified 10/18/24 09:56 Review of Systems 2 Review of Systems: Yes all other systems are reviewed and are negative [facility] Past Medical History [facility] Narrative: Social history: He denies tobacco, alcohol and drug use. Patient is on methadone for cocaine and heroin use disorder. He states that he did have a period of time where he was injecting these drugs but mainly used these drugs intranasally. Medical History GERD (gastroesophageal reflux disease) Pulmonary edema Opioid use disorder Acute exacerbation of moderate persistent extrinsic asthma Pneumonitis Opioid use disorder, severe, in early remission Suicidal ideation Exocrine pancreatic insufficiency Polysubstance abuse No known health problems Surgical History Hx of tonsillectomy Social History Social History Household Members: Family Housing: House Do you presently have visiting nurse or other home services: No Alcohol intake: former Comment: sitter at bedside Patient Tobacco Use Status: Former Tobacco user Substance Use Type: Marijuana Advance Directives: Yes Advance Directives on File: Yes Advance Directives Date on File: 03/15/24 service: No Sexual orientation: Straight/Heterosexual Physical Exam 2 Vital Signs: Vital Signs: Last Vital Signs Temp 97.6 F 10/18/24 09:52 Pulse 86 10/18/24 12:59 Resp 15 10/18/24 12:59 BP 141/89 H 10/18/24 12:59 Pulse Ox 96 10/18/24 12:59 O2 Del Method Nasal Cannula 10/18/24 12:59 BMI result Body Mass Index 54.7 Vital signs revealed an elevated heart rate of 120 elevated blood pressure of 152/97. Exam: General: Awake, alert in no distress, weight was 135.7 kg with an elevated BMI of 54.7 kg per m2 Head: Normocephalic, atraumatic EENT: PERRL, Lids normal, sclera normal, conjunctiva normal, nose normal , ears normal, throat without erythema or exudates Neck: Supple, no adenopathy Lung: breath sounds symmetric, no wheezing, rales or rhonchi Chest: symmetric movement, nontender Heart: regular rate and rhythm, normal S1, S2 no murmurs or rubs Abdomen: soft, moderate epigastric, periumbilical and left lower quadrant tenderness, no rebound, nondistended, normal bowel sounds Back: no vertebral tenderness, no CVAT Extremities: no deformities, moves all extremities symmetrically Neuro: Awake, alert, oriented, normal speech, cranial nerves intact, moves all extremities symmetrically Psych: Pleasant, cooperative, Medications Administered Discontinued Medications Generic Name Dose Route Start Last Admin Trade Name Freq PRN Reason Stop Dose Admin Sodium Chloride 1,000 mls @ 999 mls/hr 10/18/24 11:01 10/18/24 11:44 Ns IV 10/18/24 12:01 999 mls/hr .Q1H1M STA Administration Ketorolac Tromethamine 15 mg 10/18/24 11:13 10/18/24 11:48 Ketorolac Tromethamine 15 Mg/Ml Vial IVPUSH 10/18/24 11:14 15 mg ONCE STA Administration Lorazepam 2 mg 10/18/24 11:01 10/18/24 11:48 Lorazepam 1 Mg Tablet PO 10/18/24 11:02 2 mg ONCE STA Administration Ondansetron HCl 4 mg 10/18/24 11:01 10/18/24 11:48 Ondansetron Odt 4 Mg Tab.Rapdis TRANSLINGU 10/18/24 11:02 4 mg ONCE STA Administration Medical Decision Making Medical Decision Making MDM Narrative: 39-year-old male with a past medical history of opiate use disorder, MDD, polysubstance use, asthma, presenting to the ED via EMS complaining abdominal pain, nausea, vomiting, loss of appetite and suicidal ideation. Patient was started on a GLP 1 medication, Zepbound 4 weight loss. His 1st injection was on 10/13/2024. He states that since that injection he has not been feeling well. Patient is complaining of periumbilical and left lower quadrant deep, sharp/pressure-like , 8/10 pain which has been intermittent for the last 3-4 days. He states he has lost his appetite and despite trying to eat he is unable to eat. He states he has had episodes of feeling hot and cold but did not check his temperature. He states that his mouth feels very dry despite drinking fluid. The patient states he feels suicidal and stated ?I do not want to live my life like this anymore?. He told me that he did not have a plan to kill himself but if he were going to do it he would consider overdosing on his medications or drugs. Differential diagnosis: ?Includes but is not limited to gastritis, pancreatitis, diverticulitis, adverse reaction to GLP 1 inhibitor, anemia, electrolyte abnormalities, depression, anxiety, suicidal ideation Course: 11:12 I ordered the following laboratory evaluation of the patient: CBC, CMP, lipase, ethanol level, urine drug screen. I ordered to follow treatment on the patient: IV insertion, cardiac monitoring, O2 saturation monitoring, 1 on 1 observation for SI, normal saline IV x1 L, Zofran 4 mg IV, Toradol 15 mg IV and Ativan 2 mg orally. 13:23 My independent interpretation patient's laboratory evaluation as follows: CBC was normal. CMP was normal except for an elevated alk-phos of 143. Lipase was normal. Patient's ethanol level was below detectable limits. Urine tox screen is pending urine collection. Urine tox screen from 10/15/2024 was positive for methadone which is a drug that he is on. It was also positive for THC (marijuana). Nursing staff noted that the patient's O2 saturation drops briefly to 85% when he sleeps and then comes back up to normal. Patient most likely has undiagnosed sleep apnea. Patient states that he has been evaluated for sleep apnea and did use a CPAP machine but it was uncomfortable and he no longer has this machine. He states that he is scheduled for a sleep study. Patient told me that he is no longer suicidal and he is feeling better and he does not want to follow up with the care team. The patient's symptoms are most likely caused by Zepbound and they should improve over time. Patient states that he no longer wants to take this medication and I told him to discuss this with his prescribing provider. Admission/Observation Consideration of admission/observation: Escalation of care including admission/observation considered (Yes) Lab Data MDM Lab Attestation statement: I reviewed the patient's lab results. 10/18/24 11:28 10/18/24 11:28 Labs: Lab Results 10/18/24 Range/Units 11:28 WBC 11.6 H (4.8-10.8) X10*3/uL RBC 5.08 (4.60-5.80) X10*6/uL Hgb 13.1 L (14.0-18.0) g/dl Hct 42.3 (42.0-52.0) % MCV 83.3 (80.0-98.0) fL MCH 25.8 L (27.0-33.0) pg MCHC 31.0 (31.0-36.0) g/dl RDW 17.2 H (11.0-16.0) % Plt Count 272 (160-400) X10*3/uL MPV 8.5 L (9.4-12.4) fL Immature Gran % (Auto) 0.6 H (0.0-0.4) % Neut % (Auto) 78.7 H (45-73) % Lymph % (Auto) 9.0 L (20-40) % Mcclain % (Auto) 9.4 (2-11) % Eos % (Auto) 2.0 (0-4) % Baso % (Auto) 0.3 (0-2) % Lymph # (Auto) 1.0 L (1.2-4.9) X10*3/uL Mcclain # (Auto) 1.1 (0.1-1.2) X10*3/uL Eos # (Auto) 0.2 (0.0-0.4) X10*3/uL Baso # (Auto) 0.0 (0.0-0.2) X10*3/uL Abs Immat Gran (auto) 0.07 H (0.00-0.03) X10*3/uL Absolute Neuts (auto) 9.1 H (2.0-8.3) x10*3/uL Absolute Nucleated RBC 0.000 (0.0-0.012) X10*3/uL Nucleated RBC % (auto) 0.0 (0.0-0.2) /100WBC Sodium 135 (135-145) mmol/L Potassium 4.5 (3.3-5.1) mmol/L Chloride 99 (96-108) mmol/L Carbon Dioxide 28 (22-29) mmol/L Anion Gap 13 (12-20) BUN 15 (9-16) mg/dL Creatinine 0.89 (0.5-1.4) mg/dL Estim Creat Clear Calc 139.9 Estimated GFR > 60 Random Glucose 107 (60-115) mg/dL Calcium 8.8 (8.4-10.2) mg/dL Magnesium 2.0 (1.6-2.6) mg/dL Total Bilirubin 0.5 (0.0-1.0) mg/dL AST 33 (5-37) U/L ALT 38 (0-40) U/L Alkaline Phosphatase 143 H (39-117) U/L Total Protein 8.2 H (6.5-8.0) g/dL Albumin 4.1 (3.5-5.0) g/dL Lipase 14 (8-78) U/L Ethyl Alcohol < 10 mg/dL External Record Review External record reviewed: Inpatient record Chronic Conditions Patient?s care impacted by: Other (Major depressive disorder, anxiety) Discharge Plan Discharge Clinical Impression: Anxiety, Suicidal ideation Abdominal pain Qualifiers: Abdominal location: left lower quadrant Qualified Code(s): R10.32 - Left lower quadrant pain Nausea & vomiting Qualifiers: Vomiting type: unspecified Qualified Code(s): R11.2 - Nausea with vomiting, unspecified Adverse drug reaction Qualifiers: Encounter type: subsequent encounter Qualified Code(s): T50.905D - Adverse effect of unspecified drugs, medicaments and biological substances, subsequent encounter Patient Disposition: Home, Self-Care Additional Instructions: Your blood work today was normal which is reassuring. Your symptoms are most likely caused by the Zepbound. This medication is supposed to reduce your appetite and can cause abdominal pain, nausea and vomiting. If you no longer want to take this medication for weight loss you should discuss this with the doctor that prescribed the medicine for you. Your oxygen level does drop when you sleep and this has caused by your sleep apnea. It is important that you keep the sleep study appointment and consider getting a CPAP machine again to help you with this condition. Continue taking your medications as prescribed by your providers. You were seen in our Emergency Department today for treatment of a behavioral health issue. It is important after your visit that you follow up with either your behavioral health provider or a primary care doctor within 7 days.? If you have trouble finding a therapist you can reach out to [address] [phone] [facility] can be reached 7 days a week 24 hours a day.? Call [phone] to speak with someone.? Return for any worsening symptoms or concerns such as thoughts of self harm or harm to others. Please call 911 if you feel your mental health is worsening.? Prescriptions: No Action Trelegy Ellipta 200-62.5-25 mcg blister with device 1 inh inhalation DAILY Qty: 60 6RF polyethylene glycol 3350 17 gram powder in packet 17 g PO BID 90 Days Qty: 100 3RF Rx Instructions: hold for loose stool methadone [Methadose] 10 mg/mL Concentrate 20 mg PO DAILY@1700 Qty: 0 0RF Rx Instructions: Partial Fill upon patient request. furosemide 40 mg Tablet 40 mg PO DAILY 30 Days Qty: 30 0RF Protocol: Hold for SBP< HOLD for SBP < : 90 multivitamin [Daily-Rip] Tablet 1 tab PO DAILY 30 Days Qty: 30 0RF clonidine HCl 0.1 mg Tablet See Rx Instructions .ROUTE .COMPLEX Qty: 120 0RF Protocol: Hold for SBP< HOLD for SBP < : 90 Rx Instructions: Take 1 tab every morning and 1 tab every night; may take an additional tab twice a day as needed for moderate anxiety divalproex 250 mg Tablet,Delayed Release (Dr/Ec) 250 mg PO BID 30 Days Qty: 60 0RF clonazepam 0.5 mg Tablet 0.5 mg PO TID PRN (Reason: Anxiety) 30 Days Qty: 70 0RF sennosides-docusate sodium [Senna Plus] 8.6-50 mg Tablet 2 tab PO BID 30 Days Qty: 120 0RF olanzapine 5 mg Tablet 5 mg PO DAILY PRN (Reason: agitation) 30 Days Qty: 30 0RF nortriptyline 25 mg Capsule 25 mg PO BEDTIME 30 Days Qty: 30 0RF hydrocortisone [Proctozone-HC] 2.5 % Cream With Perineal Applicator 1 appl AL DAILY PRN (Reason: hemorrhoids) 30 Days Qty: 30 0RF magnesium oxide 400 mg (241.3 mg magnesium) Tablet 400 mg PO BEDTIME 30 Days Qty: 30 0RF hydroxyzine HCl 25 mg Tablet 25 mg PO Q6H PRN (Reason: mild anxiety) 30 Days Qty: 60 0RF albuterol sulfate [Ventolin HFA] 90 mcg/actuation Hfa Aerosol Inhaler 2 puff inhalation RQ4H PRN (Reason: Shortness Of Breath) 30 Days Qty: 6.7 0RF lactulose 10 gram/15 mL Solution 20 g PO DAILY PRN (Reason: Constipation) 30 Days Qty: 473 0RF ferrous sulfate 324 mg (65 mg iron) Tablet,Delayed Release (Dr/Ec) 324 mg PO DAILY 30 Days Qty: 30 0RF Creon 12,000-38,000 -60,000 unit Capsule,Delayed Release(Dr/Ec) 2 cap PO TIDWM 30 Days Qty: 180 0RF guanfacine 1 mg Tablet Extended Release 24 Hr 1 mg PO DAILY 30 Days Qty: 30 0RF acetaminophen 325 mg Tablet 650 mg PO Q6H PRN (Reason: Headache/Pain, Scale 1-10) Qty: 0 0RF methadone [Methadose] 10 mg/mL Concentrate 100 mg PO DAILY@0800 Qty: 0 0RF Rx Instructions: Partial Fill upon patient request. aspirin 81 mg tablet,delayed release (DR/EC) 81 mg PO DAILY famotidine 40 mg tablet 40 mg PO BEDTIME venlafaxine 150 mg capsule,extended release 24hr 150 mg PO DAILY Print Language: Sinhala
--- OUTSIDE RECORDS SUMMARY | 2024-10-18 10:47 | XMS_ITS | Encounter Summary ---
Author Organization [employer] Address [address] [facility] [address] [place] [address] Care Team Providers Care Winemaker Name Role Phone Roma Bender Primary Care Provider [phone] Neetu Bah Unavailable Lesia Tran MD Primary Care Provider + Carlos Muñiz RN Unavailable [phone] Carlos Muñiz RN Unavailable [phone] Jennifer Burgess Unavailable Encounter Details Date Type Department Care Team (Late st Contact Info) Description 02/19/2023 Orders Only [facility] [address] [place] [address] Roma Bender FNP [address] [place] [address] Other acute gastritis, presence of bleeding unspecified [...] Care Team (Late st Contact Info) Description 10/23/2024 11:00 AM EDT Office Visit [facility] [address] [place] [address] Trenton Wilkerson DDS [address] [place] [address] 12/05/2024 12:00 PM EDT Telemedicine [facility] [address] [place] [address] Lesia Tran MD [address] [place] [address] documented as of this encounter Visit Diagnoses Diagnosis Other acute gastritis, presence of bleeding unspecified- Primary documented in this encounter Additional Health Concerns Assessment Noted Time PHQ-9 Depression Total Score: 11 023 3:14 PM EDT documented as of this encounter Care Teams Winemaker Relationship Specialty Start Date End Date Roma Bender FNP [address] [place] [address] PCP - General Family Medicine 01/14/23 12/06/23 Lesia Tran MD [address] [place] [phone] PCP - General Internal Medicine 12/07/23 Neetu Bah AGNP [address] [place] [phone] Family Medicine 01/14/23 09/02/23 Carlos Muñiz RN [address] [place] [address] Registered Nurse Family Medicine 09/05/24 09/05/24 Carlos Muñiz RN [address] [place] [address] Registered Nurse Family Medicine 09/06/24 Jennifer Brugess 09/07/24 documented as of this encounter
--- OUTSIDE RECORDS SUMMARY | 2024-10-18 10:47 | XMS_ITS | Clinical Summary ---
Author Organization [facility] Address [address] [place] [address] Phone Care Team Providers Care Financial Reporting Director Name Role Phone Az Terrell Primary Care Provider [phone] Immunizations Immunization Administration Dates Next Due DTP [...] age to complete this topic Care Teams Financial Reporting Director Relationship Specialty Start Date End Date Az Terrell [address] [place] [id number] PCP - General 11/13/16
--- OUTSIDE RECORDS SUMMARY | 2024-10-18 10:47 | XMS_ITS | Data Portability ---
Author Organization [place] [facility] Address [address] [address] Care Team Providers Care Machine Tool Technology Instructor Name Role Phone ZULEYMALSEIA Primary Care Provider [phone] Assessment Encounter Date Assessment Date Assessment LastModified [...] By Organization Details Last Modified Time 09/29/2024 [id number] Please note: Parts of this encounter note [...] Details Recorded Time Perforation of nasal septum 85181462 Active 2023 MARTA MILLER MD [address] [facility] [place], [place], [phone], [facility] - [facility] 11:28:15 Chronic rhinitis 86672939 Active 2024 MARTA MILLER MD [address] [facility], [place], [address], [facility] 11:27:47 Obstructive sleep apnea syndrome 84689302 Active 2024 MARTA MILLER MD [address] [facility],[address] [facility], [place], [address], [facility] 11:27:51 Oropharyngeal dysphagia 23841484 Active 2024 MARTA MILLER MD [address] [facility],[address], [place], [address], [facility] 11:28:01 Morbid obesity 008867320 Active 2024 MARTA MILLER MD [address] [facility],[address], [place], [address], [facility] 11:28:39 Problem Notes None recorded. Procedures Surgical History Date Name Laterality Status Provider Name and Address Organization Details Recorded Time 09/30/19 25 Fiberoptic Laryngoscopy (Comprehensive) completed MARTA ALAMO MD [address] [facility] [place],[address], [phone], [facility] 09/29/2024 11:32:45 Imaging Results None recorded. Procedure Notes None recorded. Medical Equipment None Reported. Allergies Allergen ID Allergen Name Allergen Category Reaction Reaction Severity Criticality Documentation Date Start Date Code Code System Note Provider Name and Address Organization Details Recorded Time [id number] Product containin g penicilli n (product) medicatio n Not available Not available Not available 09/29/2024 04221 8001 SNOMED Lesia joe [place] - [facility] 5 10:59:57 Medications Name Sig Start [...] Updated DateTime 09/29/2024 170.18 cm 47 kg/m2 016654.71 g MARTA ALAMO MD [address] [place] [address], [phone] 09/29/2024 11:28:59 Social History Question Answer Notes LastModified by Organizat ion Details LastModified Time Tobacco Smoking Status Former Smoker MARTA ALAMO MD [address] [place] [address], [phone], [facility] 09/28/2024 11:16:55 Which Illicit Or Recreational [...] SNOMED-CT Code Diagnosis ICD10 Code Diagnosis Note [id number] MARTA MORGAN MD [facility] [address] [address] 09/29/2024 10:27:25 09/29/2024 11:31:21 Chronic rhinitis 63209554 J31.0 Obstructiv e sleep apnea syndrome 48189234 G47.33 working with PCP on PSG Oropharyng eal dysphagia 12538397 R13.12 Perforatio n of nasal septum 73832958 J34.89 Morbid obesity 171454071 E66.01 Health Concerns Section Related Observation LastModified by Organization Detai ls LastModified Time None Recorded Concern Status LastModified by Organization Details LastModified Time None Recorded Advance Directives Directive None Recorded Payers Insurance Date Sequence Insurance Name Policy Number Policy Lopez Covered Member ID Lopez Member ID Guarantor Name 10/13/2024 1 [place] [facility] Yaniv Gutierrez [id number] Yaniv Gutierrez Notes Date Note Type Note [...] study suggesting aspiration risks. MARTA ALAMO MD [address] [place] [address], [phone], [facility] - [facility] 09/29/2024 11:33:12
[2024-10-18 11:09] VITALS: BP 119/85; PULSE 103; RESP 18; O2SAT 97
[2024-10-18 11:36] LABS: MANUAL DIFF FLAG NO
[2024-10-18 11:39] LABS: Hematocrit 42.3 % (42.0-52.0); Hemoglobin 13.1 g/dl (14.0-18.0); Imm Gran Abs Auto 0.07 X10*3/uL (0.00-0.03); Imm Gran Pct Auto 0.6 % (0.0-0.4); Lymphocytes Absolute Auto 1.0 X10*3/uL (1.2-4.9); Mean Corpuscular HGB Conc 31.0 g/dl (31.0-36.0); Mean Corpuscular Hemoglobin 25.8 pg (27.0-33.0); Mean Corpuscular Volume 83.3 fL (80.0-98.0); NRBC Abs Auto 0.000 X10*3/uL (0.0-0.012); NRBC Pct Auto 0.0 /100WBC (0.0-0.2); Platelet Count 272 X10*3/uL (160-400); Red Blood Count 5.08 X10*6/uL (4.60-5.80); White Blood Count 11.6 X10*3/uL (4.8-10.8)
[2024-10-18 12:05] LABS: Alanine Aminotransferase 38 U/L (0-40); Albumin Level 4.1 g/dL (3.5-5.0); Alkaline Phosphatase 143 U/L (39-117); Anion Gap 13 (12-20); Aspartate Amino Transferase 33 U/L (5-37); Blood Urea Nitrogen 15 mg/dL (9-16); Calcium 8.8 mg/dL (8.4-10.2); Carbon Dioxide 28 mmol/L (22-29); Chloride 99 mmol/L (96-108); Creatinine Clr Calc Pharmacy 139.9; Estimated Glomerular Filt Rate > 60; Lipase 14 U/L (8-78); Magnesium 2.0 mg/dL (1.6-2.6); Potassium 4.5 mmol/L (3.3-5.1); Sodium 135 mmol/L (135-145); Total Protein 8.2 g/dL (6.5-8.0)
[2024-10-18 12:59] VITALS: BP 141/89; PULSE 86; RESP 15; O2SAT 96
== END 2024-10-18 18:06 | disposition home or self-care (01) ==
PROVIDERS: Emergency Provider Emergency Medicine Emergency Medical Services; PCP Internal Medicine
DX: R11.2 Nausea with vomiting, unspecified (principal); F41.1 Generalized anxiety disorder; F43.0 Acute stress reaction; R45.851 Suicidal ideations; R10.2 Pelvic and perineal pain; Z51.81 Encounter for therapeutic drug level monitoring; Z79.899 Other long term (current) drug therapy; Z79.85 Long-term (current) use of injectable non-insulin antidiabetic drugs
CPT/HCPCS: 36415; 80053; 80307; 83690; 83735; 85025; 96361; 96374; 99284; 99285; J1885

== ENCOUNTER 2024-10-24 18:30 | Emergency (ER) | payer MEDICAID, SELFPAY ==
[2024-10-24 18:36] VITALS: BP 160/100; PULSE 108; O2SAT 95
[2024-10-24 18:44] VITALS: BP 127/96; PULSE 100; RESP 24; TEMP 36.8; O2SAT 96; BMI 48.8
[2024-10-24 18:52] VITALS: BP 127/96; PULSE 102; RESP 21; TEMP 36.8; O2SAT 96
--- OUTSIDE RECORDS SUMMARY | 2024-10-24 19:00 | XMS_ITS | Encounter Summary ---
Author Organization [employer] Address 75 [facility] 7t [place] [address] Care Team Providers Care Professor Of Theater Name Role Phone Roma Bender Primary Care Provider [phone] Neetu Bah Unavailable [phone] Lesia Tran MD Primary Care Provider + Carlos Muñiz RN Unavailable [phone] Carlos Muñiz RN Unavailable [phone] Jennifer Burgess Unavailable Encounter Details Date Type Department Care Team (Late st Contact Info) Description 02/19/2023 Orders Only [facility] MED & PEDS [address] [place] [address] Roma Bender FNP [address] [place] [address] Other acute gastritis, presence of bleeding unspecified [...] Care Team (Late st Contact Info) Description 12/05/2024 12:00 PM EDT Telemedicine [facility] MEDICINE [address] [place] [address] Lesia Tran MD [address] [place] [address] documented as of this encounter Visit Diagnoses Diagnosis Other acute gastritis, presence of bleeding unspecified- Primary documented in this encounter Additional Health Concerns Assessment Noted Time PHQ-9 Depression Total Score: 11 023 3:14 PM EDT documented as of this encounter Care Teams Professor Of Theater Relationship Specialty Start Date End Date Roma Bender FNP [address] [place] [address] PCP - General Family Medicine 01/14/23 12/06/23 Lesia Tran MD [address] [place] [address] [phone] PCP - General Internal Medicine 12/07/23 Neetu Bah AGNP [address] [place] [phone] Family Medicine 01/14/23 09/02/23 Carlos Muñiz, RN [address] [place] [address] Registered Nurse Family Medicine 09/05/24 09/05/24 Carlos Muñiz, ROXANN [address] [place] [address] Registered Nurse Family Medicine 09/06/24 Jennifer Burgess 09/07/24 documented as of this encounter
--- OUTSIDE RECORDS SUMMARY | 2024-10-24 19:00 | XMS_ITS | Data Portability ---
Author Organization [place] [facility], Allergy Address [address] [address] Care Team Providers Care Rate Setter Name Role Phone ZULEYMALESIA Primary Care Provider [...] By Organization Details Last Modified Time 09/29/2024 [id number] Please note: Parts of this encounter note [...] Details Recorded Time Perforation of nasal septum 42963917 Active 2023 MARTA MILLER MD [address] [facility], [place], [address], [facility] - [facility] 11:28:15 Chronic rhinitis 01745737 Active 2024 MARTA MILLER MD [address] [facility], [place], [address], [facility] 11:27:47 Obstructive sleep apnea syndrome 73612742 Active 2024 MARTA MILLER MD 100 [facility],[address] [facility], [place], [address], [facility] 11:27:51 Oropharyngeal dysphagia 86532080 Active 2024 MARTA MILLER MD [address] [facility],[address], [place], [address], [facility] 11:28:01 Morbid obesity 022680162 Active 2024 MARTA MILLER MD [address] [facility],[address], [place], [address], [facility] 11:28:39 Problem Notes None recorded. Procedures Surgical History Date Name Laterality Status Provider Name and Address Organization Details Recorded Time 09/30/19 25 Fiberoptic Laryngoscopy (Comprehensive) completed MARTA ALAMO MD [address] [facility] [place],[address], [address], [facility] 09/29/2024 11:32:45 Imaging Results None recorded. Procedure Notes None recorded. Medical Equipment None Reported. Allergies Allergen ID Allergen Name Allergen Category Reaction Reaction Severity Criticality Documentation Date Start Date Code Code System Note Provider Name and Address Organization Details Recorded Time 770060 Product containin g penicilli n (product) medicatio n Not available Not available Not available 09/29/2024 55424 8001 SNOMED Lesia joe [place] - [facility] 5 10:59:57 Medications Name Sig Start [...] Updated DateTime 09/29/2024 170.18 cm 47 kg/m2 519425.71 g MARTA ALAMO MD [address] [place] [address], [phone] 09/29/2024 11:28:59 Social History Question Answer Notes LastModified by Organizat ion Details LastModified Time Tobacco Smoking Status Former Smoker MARTA ALAMO MD [address] [place] [address], [phone], [facility] 09/28/2024 11:16:55 Which Illicit Or Recreational [...] SNOMED-CT Code Diagnosis ICD10 Code Diagnosis Note [id number] MARTA MORGAN MD [facility] [address] [phone] 09/29/2024 10:27:25 09/29/2024 11:31:21 Chronic rhinitis 67488296 J31.0 Obstructiv e sleep apnea syndrome 12911338 G47.33 working with PCP on PSG Oropharyng eal dysphagia 22779833 R13.12 Perforatio n of nasal septum 57339620 J34.89 Morbid obesity 123137674 E66.01 Health Concerns Section Related Observation LastModified by Organization Detai ls LastModified Time None Recorded Concern Status LastModified by Organization Details LastModified Time None Recorded Advance Directives Directive None Recorded Payers Insurance Date Sequence Insurance Name Policy Number Policy Lopez Covered Member ID Lopez Member ID Guarantor Name 10/13/2024 1 [place] [facility] Yaniv Gutierrez [id number] Yaniv Gutierrez Notes Date Note Type Note [...] study suggesting aspiration risks. MARTA ALAMO MD [address] [place] [address], [phone], [facility] - [facility] 09/29/2024 11:33:12
--- NOTE | 2024-10-24 21:12 | ED_ITS ---
HPI - General Adult General Chief complaint: General Medical Stated complaint: vomiting x2 hrs, SI Time Seen by Provider: 10/24/24 21:03 Source: patient and EMS Mode of arrival: EMS Limitations: no limitations History of Present Illness ED Provider: Dr. Samantha Desir HPI narrative: Patient comes to the emergency room via ambulance complaining of abdominal discomfort, 4 episodes of diarrhea. Initially, when patient came in, he endorsed suicidal ideation. However, patient states that he said he is suicidal so he could be seen faster and he would not be put out in the waiting room. Patient denies SI. Patient states that he takes MiraLax at home and that is probably what caused the diarrhea. Patient states that after moving his bowels he feels much better. At this time he has no pain. Related Data Home Medications ?Medication ?Instructions ?Recorded ?Confirmed aspirin 81 mg tablet,delayed 81 mg PO DAILY 09/02/23 0 08/30/24 release famotidine 40 mg tablet 40 mg PO BEDTIME 10/13/24 venlafaxine 150 mg 150 mg PO DAILY 10/13/24 capsule,extended release 24 hr Previous Rx's ?Medication ?Instructions ?Recorded acetaminophen 325 mg tablet 650 mg (2 x 325 mg) PO Q6H PRN 08/27/24 Headache/Pain, Scale 1-10 #0 tabs methadone 10 mg/mL oral 100 mg (10 mL) PO DAILY@0800 #0 mL 08/27/24 concentrate (Methadose) albuterol sulfate 90 mcg/actuation 2 puff inhalation R Q4H PRN 09/11/24 aerosol inhaler (Ventolin HFA) Shortness Of Breath 30 days #6.7 grams clonazepam 0.5 mg tablet 0.5 mg PO TID PRN Anxiety 30 days 09/11/24 #70 tabs clonidine HCl 0.1 mg tablet See Rx Instructions .Route 09/11/24 .COMPLEX #120 tabs divalproex 250 mg tablet,delayed 250 mg PO BID 30 days #60 tabs 09/11/24 release ferrous sulfate 324 mg (65 mg 324 mg PO DAILY 30 days #30 tabs 09/11/24 iron) tablet,delayed release furosemide 40 mg tablet 40 mg PO DAILY 30 days #30 t abs 09/11/24 guanfacine 1 mg tablet,extended 1 mg PO DAILY 30 days #30 tabs 09/11/24 release 24 hr hydrocortisone 2.5 % topical cream 1 appl DC DAILY PRN hemorrhoids 30 09/11/24 with perineal applicator days #30 grams (Proctozone-HC) hydroxyzine HCl 25 mg tablet 25 mg PO Q6H PRN mild anx iety 30 09/11/24 days #60 tabs lactulose 10 gram/15 mL oral 20 g (30 mL) PO DAILY PRN 09/11/24 solution Constipation 30 days #473 mL sxncfm-ebiiamjv-jicfkbj 2 cap PO TIDWM 30 days #180 caps 09/11/24 12,000-38,000-60,000 unit capsule,delayed rel (Creon) magnesium oxide 400 mg (241.3 mg 400 mg PO BEDTIME 30 days #30 tabs 09/11/24 magnesium) tablet methadone 10 mg/mL oral 20 mg (2 mL) PO DAILY@1700 # 0 mL 09/11/24 concentrate (Methadose) multivitamin (Daily-Rip tablet) 1 tab PO DAILY 30 day s #30 tabs 09/11/24 nortriptyline 25 mg capsule 25 mg PO BEDTIME 30 days # 30 caps 09/11/24 olanzapine 5 mg tablet 5 mg PO DAILY PRN agitation 30 09/11/24 days #30 tabs sennosides 8.6 mg-docusate sodium 2 tab PO BID 30 days #120 tabs 09/11/24 50 mg tablet (Senna Plus) fluticasone fur. 200 mcg-umeclid 1 inh inhalation FLACO Y #60 ea 09/29/24 62.5 mcg-vilant 25 mcg inhalat.powder (Trelegy Ellipta) polyethylene glycol 3350 17 gram 17 g PO BID 90 days # 100 ea 10/10/24 oral powder packet Allergies Allergy/AdvReac Type Severity Reaction Status Date / Time Penicillins (PENICILLINS) Allergy Unknown RASH Verified 10/24/24 18:46 Review of Systems 2 Review of Systems: Constitutional : No Weight loss, No Fever, No Chills, No Night Sweats, No Fatigue, No Malaise ENT/Mouth : No Hearing loss, No Ear Pain, No Nasal Congestion, No Sinus Pain, No Hoarseness, No sore throat, No Rhinorrhea, No Swallowing Difficulty Eyes: No Eye Pain, No Swelling, No Redness, No Foreign Body, No Discharge, No Vision Changes Cardiovascular : No Chest Pain, No SOB, No Dyspnea on Exertion, No Orthopnea, No Edema, No Palpitations Respiratory : No Cough, No Sputum, No Wheezing, No Smoke Exposure, No Dyspnea Gastrointestinal : No Nausea, No Vomiting, complaining of 4 episodes of Diarrhea, No Constipation, No abdominal Pain, No Hematochezia, No Melena Genitourinary : no irregular bleeding, No Dysuria, No Urinary Frequency, No Hematuria, No Urinary Incontinence, No Urgency, No Flank Pain, No Urinary Flow Changes, No Hesitancy Musculoskeletal : No joint pain, No Myalgias, No Joint Swelling Skin : No Skin Lesions, No rash Neuro : No Weakness, No Numbness, No Paresthesias, No Loss of Consciousness, No Dizziness, No Headache Psych : No Anxiety/Panic, No Depression, No SI/HI/AH/VH, No Social Issues, Heme/Lymph: No Bruising, No Bleeding,No Lymphadenopathy Endocrine : No Polyuria, No Polydipsia, No Temperature Intolerance PMFSH Past Medical History Medical History GERD (gastroesophageal reflux disease) Pulmonary edema Opioid use disorder Acute exacerbation of moderate persistent extrinsic asthma Pneumonitis Opioid use disorder, severe, in early remission Suicidal ideation Exocrine pancreatic insufficiency Polysubstance abuse No known health problems Surgical History Hx of tonsillectomy Social History Social History Household Members: Family Housing: House Do you presently have visiting nurse or other home services: No Alcohol intake: former Comment: sitter at bedside Patient Tobacco Use Status: Former Tobacco user Substance Use Type: Marijuana Advance Directives: Yes Advance Directives on File: Yes Advance Directives Date on File: 03/15/24 service: No Sexual orientation: Straight/Heterosexual Physical Exam ED Exam Exam: Appearance: Alert. Oriented X3. No acute distress. Eyes: Pupils equal, round and reactive to light. ENT: Pharynx normal. Neck: Normal inspection. Neck supple. No lymph nodes noted. No crepitus CVS: Normal heart rate and rhythm. Pulses normal. Normal S1 and S2 Respiratory: No respiratory distress. Breath sounds normal. No Wheezing. No rales, uses oxygen at baseline Abdomen: Soft and nontender. No rigidity. No distention. Skin: Skin warm and dry. Normal skin color. Normal skin turgor. Extremities: No lower extremity edema. No Lacerations. No Rash Neuro: Oriented X 3. No motor deficit. No sensory deficit. Moving all extremities. No slurred speech. CN 2 through 12 grossly intact Psych: calm, cooperative, normal affect Vital Signs: Vital Signs - 24 hr 10/24/24 18:44 10/24/24 18:52 10/24/24 22:06 Temperature 98.2 F 98.2 F 98.8 F Pulse Rate 100 102 H 102 H Respiratory Rate 24 H 21 H 22 H Blood Pressure 127/96 H 127/96 H 121/92 H Pulse Oximetry 96 96 96 Oxygen Delivery Method Room Air Nasal Cannula Nasal Cannula Oxygen Flow Rate 2 3 BMI result Body Mass Index 48.8 Course Course Course Narrative: Patient reports 4 episodes of diarrhea. Initially patient reports SI but states he only said so to be seen faster and to avoid being signed out to the waiting room to wait his turn. Denies SI We will do basic lab work and then likely discharge Medical Decision Making Medical Decision Making [facility] Narrative: My interpretation of labs: Patient's white blood cell count 14.9, likely reactive leukocytosis due to the diarrhea secondary to laxatives. No significant acute abnormality in patient's chemistry, normal LFTs. Here in the emergency room patient has not had any bowel movements/diarrhea. Discussed with the patient to doses of MiraLax. If he is taking it daily, to take it every other day. Patient denies SI Differential Diagnosis Differential Diagnoses: The differential diagnosis associated with the presentation includes (Diarrhea secondary to laxative use, gastroenteritis) Lab Data [facility] Lab Attestation statement: I reviewed the patient's lab results. 10/24/24 21:41 10/24/24 22:32 Labs: Lab Results 10/24/24 10/24/24 Range/Units 21:41 22:32 WBC 14.9 H (4.8-10.8) X10*3/uL RBC 4.57 L (4.60-5.80) X10*6/uL Hgb 12.1 L (14.0-18.0) g/dl Hct 38.2 L (42.0-52.0) % MCV 83.6 (80.0-98.0) fL MCH 26.5 L (27.0-33.0) pg MCHC 31.7 (31.0-36.0) g/dl RDW 16.0 (11.0-16.0) % Plt Count 286 (160-400) X10*3/uL MPV 8.4 L (9.4-12.4) fL Immature Gran % (Auto) 0.8 H (0.0-0.4) % Neut % (Auto) 78.1 H (45-73) % Lymph % (Auto) 9.1 L (20-40) % [place] % (Auto) 8.2 (2-11) % Eos % (Auto) 3.5 (0-4) % Baso % (Auto) 0.3 (0-2) % Lymph # (Auto) 1.4 (1.2-4.9) X10*3/uL [place] # (Auto) 1.2 (0.1-1.2) X10*3/uL Eos # (Auto) 0.5 H (0.0-0.4) X10*3/uL Baso # (Auto) 0.1 (0.0-0.2) X10*3/uL Abs Immat Gran (auto) 0.12 H (0.00-0.03) X10*3/uL Absolute Neuts (auto) 11.6 H (2.0-8.3) x10*3/uL Absolute Nucleated RBC 0.000 (0.0-0.012) X10*3/uL Nucleated RBC % (auto) 0.0 (0.0-0.2) /100WBC Sodium 139 (135-145) mmol/L Potassium 4.5 (3.3-5.1) mmol/L Chloride 100 (96-108) mmol/L Carbon Dioxide 31 H (22-29) mmol/L Anion Gap 13 (12-20) BUN 10 (9-16) mg/dL Creatinine 0.82 (0.5-1.4) mg/dL Estim Creat Clear Calc 167.8 Estimated GFR > 60 Random Glucose 107 (60-115) mg/dL Calcium 8.7 (8.4-10.2) mg/dL Total Bilirubin 0.3 (0.0-1.0) mg/dL Direct Bilirubin 0.1 (0.0-0.5) mg/dL AST 31 (5-37) U/L ALT 29 (0-40) U/L Alkaline Phosphatase 121 H (39-117) U/L Total Protein 7.6 (6.5-8.0) g/dL Albumin 3.7 (3.5-5.0) g/dL Discharge Plan Discharge Clinical Impression: Diarrhea Patient Disposition: Home, Self-Care Instructions: Acute Diarrhea (ED) Additional Instructions: Please decrease the amount of laxatives that your using. If you are taking it daily, alternate every other day. Please follow-up with your primary care physician tomorrow. If you have any worsening or new symptoms, please return to the emergency room or call 911 Prescriptions: No Action Trelegy Ellipta 200-62.5-25 mcg blister with device 1 inh inhalation DAILY Qty: 60 6RF polyethylene glycol 3350 17 gram powder in packet 17 g PO BID 90 Days Qty: 100 3RF Rx Instructions: hold for loose stool methadone [Methadose] 10 mg/mL Concentrate 20 mg PO DAILY@1700 Qty: 0 0RF Rx Instructions: Partial Fill upon patient request. furosemide 40 mg Tablet 40 mg PO DAILY 30 Days Qty: 30 0RF Protocol: Hold for SBP< HOLD for SBP < : 90 multivitamin [Daily-Rip] Tablet 1 tab PO DAILY 30 Days Qty: 30 0RF clonidine HCl 0.1 mg Tablet See Rx Instructions .ROUTE .COMPLEX Qty: 120 0RF Protocol: Hold for SBP< HOLD for SBP < : 90 Rx Instructions: Take 1 tab every morning and 1 tab every night; may take an additional tab twice a day as needed for moderate anxiety divalproex 250 mg Tablet,Delayed Release (Dr/Ec) 250 mg PO BID 30 Days Qty: 60 0RF clonazepam 0.5 mg Tablet 0.5 mg PO TID PRN (Reason: Anxiety) 30 Days Qty: 70 0RF sennosides-docusate sodium [Senna Plus] 8.6-50 mg Tablet 2 tab PO BID 30 Days Qty: 120 0RF olanzapine 5 mg Tablet 5 mg PO DAILY PRN (Reason: agitation) 30 Days Qty: 30 0RF nortriptyline 25 mg Capsule 25 mg PO BEDTIME 30 Days Qty: 30 0RF hydrocortisone [Proctozone-HC] 2.5 % Cream With Perineal Applicator 1 appl DC DAILY PRN (Reason: hemorrhoids) 30 Days Qty: 30 0RF magnesium oxide 400 mg (241.3 mg magnesium) Tablet 400 mg PO BEDTIME 30 Days Qty: 30 0RF hydroxyzine HCl 25 mg Tablet 25 mg PO Q6H PRN (Reason: mild anxiety) 30 Days Qty: 60 0RF albuterol sulfate [Ventolin HFA] 90 mcg/actuation Hfa Aerosol Inhaler 2 puff inhalation RQ4H PRN (Reason: Shortness Of Breath) 30 Days Qty: 6.7 0RF lactulose 10 gram/15 mL Solution 20 g PO DAILY PRN (Reason: Constipation) 30 Days Qty: 473 0RF ferrous sulfate 324 mg (65 mg iron) Tablet,Delayed Release (Dr/Ec) 324 mg PO DAILY 30 Days Qty: 30 0RF Creon 12,000-38,000 -60,000 unit Capsule,Delayed Release(Dr/Ec) 2 cap PO TIDWM 30 Days Qty: 180 0RF guanfacine 1 mg Tablet Extended Release 24 Hr 1 mg PO DAILY 30 Days Qty: 30 0RF acetaminophen 325 mg Tablet 650 mg PO Q6H PRN (Reason: Headache/Pain, Scale 1-10) Qty: 0 0RF methadone [Methadose] 10 mg/mL Concentrate 100 mg PO DAILY@0800 Qty: 0 0RF Rx Instructions: Partial Fill upon patient request. aspirin 81 mg tablet,delayed release (DR/EC) 81 mg PO DAILY famotidine 40 mg tablet 40 mg PO BEDTIME venlafaxine 150 mg capsule,extended release 24hr 150 mg PO DAILY Print Language: Afghan
[2024-10-24 21:50] LABS: Hematocrit 38.2 % (42.0-52.0); Hemoglobin 12.1 g/dl (14.0-18.0); Imm Gran Abs Auto 0.12 X10*3/uL (0.00-0.03); Imm Gran Pct Auto 0.8 % (0.0-0.4); Lymphocytes Absolute Auto 1.4 X10*3/uL (1.2-4.9); MANUAL DIFF FLAG NO; Mean Corpuscular HGB Conc 31.7 g/dl (31.0-36.0); Mean Corpuscular Hemoglobin 26.5 pg (27.0-33.0); Mean Corpuscular Volume 83.6 fL (80.0-98.0); NRBC Abs Auto 0.000 X10*3/uL (0.0-0.012); NRBC Pct Auto 0.0 /100WBC (0.0-0.2); Platelet Count 286 X10*3/uL (160-400); Red Blood Count 4.57 X10*6/uL (4.60-5.80); White Blood Count 14.9 X10*3/uL (4.8-10.8)
[2024-10-24 22:06] VITALS: BP 121/92; PULSE 102; RESP 22; TEMP 37.1; O2SAT 96
[2024-10-24 23:04] LABS: Alanine Aminotransferase 29 U/L (0-40); Albumin Level 3.7 g/dL (3.5-5.0); Alkaline Phosphatase 121 U/L (39-117); Anion Gap 13 (12-20); Aspartate Amino Transferase 31 U/L (5-37); Blood Urea Nitrogen 10 mg/dL (9-16); Calcium 8.7 mg/dL (8.4-10.2); Carbon Dioxide 31 mmol/L (22-29); Chloride 100 mmol/L (96-108); Creatinine Clr Calc Pharmacy 167.8; Estimated Glomerular Filt Rate > 60; Potassium 4.5 mmol/L (3.3-5.1); Sodium 139 mmol/L (135-145); Total Protein 7.6 g/dL (6.5-8.0)
[2024-10-24 23:34] VITALS: BP 142/95; PULSE 93; RESP 22; TEMP 37; O2SAT 95
[2024-10-24 23:43] VITALS: BP 142/95; PULSE 93; RESP 22; TEMP 37; O2SAT 95
== END 2024-10-25 00:02 | disposition home or self-care (01) ==
PROVIDERS: Emergency Provider Emergency Medicine; PCP Internal Medicine
DX: R19.7 Diarrhea, unspecified (principal); J45.909 Unspecified asthma, uncomplicated; F11.21 Opioid dependence, in remission; K21.9 Gastro-esophageal reflux disease without esophagitis
CPT/HCPCS: 36415; 80048; 80076; 85025; 99283; 99284

== ENCOUNTER → 2024-11-29 09:41 | Outpatient (REF) | payer MEDICAID, SELFPAY ==
--- OUTSIDE RECORDS SUMMARY | 2024-11-29 10:22 | XMS_ITS | Encounter Summary ---
Author Organization [employer] Address [address] [place] [address] [address]t [place] [address] Care Team Providers Care Bolt Machine Operator Name Role Phone Neetu Bah Primary Care Provider Roma BenderP Primary Care Provider [phone] Neetu Bah Unavailable [phone] Lesia Tran MD Primary Care Provider + Carlos Muñiz RN Unavailable [phone] Carlos Muñiz RN Unavailable [phone] Jennifer Burgess Unavailable Encounter Details Date Type Department Care Team (Late st Contact Info) Description 09/29/2022 Abstract [facility] ADULT DENTAL [address] [place] [address] Trenton Wilkerson DDS [address] [place] [address] Social History Tobacco Use Types Packs/Day Years [...] Contact Info) Description 12/05/2024 12:00 PM EDT Office Visit [facility] MEDICINE [address] [place] [address] Lesia Tran MD [address] [place] [address] documented as of this encounter Visit Diagnoses Not on filedocumented in this encounter Care Teams Bolt Machine Operator Relationship Specialty Start Date End Date Neetu Bah AGNP [address] [place] [phone] PCP - General Family Medicine 11/28/20 01/13/23 Roma Bender FNP [address] [place] [address] PCP - General Family Medicine 01/14/23 12/06/23 Lesia Tran MD [address] [place] [address] PCP - General Internal Medicine 12/07/23 Neetu Bah AGNP [address] [place] [phone] Family Medicine 01/14/23 09/02/23 Carlos Muñiz, RN [address] [place] [address] Registered Nurse Family Medicine 09/05/24 09/05/24 Carlos Muñiz, ROXANN [address] [place] [address] [place] [address] Registered Nurse Family Medicine 09/06/24 Jennifer Burgess 09/07/24 documented as of this encounter
--- OUTSIDE RECORDS SUMMARY | 2024-11-29 10:22 | XMS_ITS | Encounter Summary ---
Author Organization [employer] Address 75 [facility] 7t [place] [address] Care Team Providers Care Gate Tender Name Role Phone Lesia Tran MD Primary Care Provider + Carlos Muñiz RN Unavailable Jennifer Burgess Unavailable Encounter Details Date Type Department Care Team (Late st Contact Info) Description 11/24/2024 Patient Outreach [facility] MEDICINE [address] [place] [address] Lesia Tran MD [address] [place] [address] Social History Tobacco Use Types Packs/Day Years [...] with others, in a hotel, in a correction, living outside on the street, on a [...] Description 12/05/2024 12:00 PM EDT Office Visit [facility] MEDICINE [address] [place] [address] Lesia Tran MD [address] [place] [address] documented as of this encounter Visit Diagnoses Not on filedocumented in this encounter Additional Health Concerns Assessment Noted Time PHQ-9 Depression Total Score: 22 025 11:24 AM EDT documented as of this encounter Care Teams Gate Tender Relationship Specialty Start Date End Date Lesia Tran MD [address] [place] [address] PCP - General Internal Medicine 12/07/23 Carlos Muñiz, ROXANN [address] [place] [address] Registered Nurse Family Medicine 09/06/24 Jennifer Burgess 09/07/24 documented as of this encounter
--- OUTSIDE RECORDS SUMMARY | 2024-11-29 10:22 | XMS_ITS | Clinical Summary ---
Author Organization [facility] Address [address] [place] [address] Phone Care Team Providers Care Cooking Casing And Drying Supervisor Name Role Phone Az Terrell Primary Care Provider [phone] Immunizations Immunization Administration Dates Next Due DTP [...] 05/27/2009 05/27/1999, 06/02/1998, 11/02/1997, Additional history exists HPV Vaccines (1 - 3-dose SCDM series) 06/23/2014 COVID-19 Vaccine ( season) 2023 Influenza Vaccines (#1) 2024 HIB Vaccines Completed 07/03/1989 IPV Vaccines Completed 11/02/1997, 0704/1992, 07/03/1989, Additional history exists MMR Vaccines Completed 05/27/1999, 11/02/1998 Hepatitis B Vaccines Completed 10/27/1999, 06/25/1999, 05/27/1999 Hepatitis A Vaccines Aged Out No long [...] age to complete this topic Care Teams Cooking Casing And Drying Supervisor Relationship Specialty Start Date End Date Az Terrell [address] [place] [address] PCP - General 11/13/16
--- OUTSIDE RECORDS SUMMARY | 2024-11-29 10:22 | XMS_ITS | Encounter Summary ---
Author Organization [employer] Address 75 [facility] 7t [place] [address] Care Team Providers Care Densitometer Reader Name Role Phone Lesia Tran MD Primary Care Provider + Carlos Muñiz RN Unavailable [phone] Jennifer Burgess Unavailable Encounter Details Date Type Department Care Team (Late st Contact Info) Description 11/21/[address] [facility] MEDICINE [address] [place] [address] Lesia Tran MD [address] [place] [address] Social History Tobacco Use Types Packs/Day Years [...] with others, in a hotel, in a detention, living outside on the street, on a [...] Description 12/05/2024 12:00 PM EDT Office Visit [facility] MEDICINE [address] [place] [address] Lesia Tran MD [address] [place] [address] documented as of this encounter Visit Diagnoses Not on filedocumented in this encounter Additional Health Concerns Assessment Noted Time PHQ-9 Depression Total Score: 22 025 11:24 AM EDT documented as of this encounter Care Teams Densitometer Reader Relationship Specialty Start Date End Date Lesia Tran MD [address] [place] [address] PCP - General Internal Medicine 12/07/23 Carlos Muñiz, ROXANN [address] [place] [address] Registered Nurse Family Medicine 09/06/24 Jennifer Burgess 09/07/24 documented as of this encounter
--- OUTSIDE RECORDS SUMMARY | 2024-11-29 10:22 | XMS_ITS | Encounter Summary ---
Author Organization [employer] Address [address] [place] [address] 7t [place] [address] Care Team Providers Care Cash Grain Grower Name Role Phone Neetu Bah Primary Care Provider Roma BenderP Primary Care Provider [phone] Neetu Bah Unavailable [phone] Lesia Tran MD Primary Care Provider + Carlos Muñiz RN Unavailable [phone] Carlos Muñiz RN Unavailable [phone] Jennifer Burgess Unavailable Encounter Details Date Type Department Care Team (Late st Contact Info) Description 09/29/2022 Abstract [facility] ADULT DENTAL [address] [place] [address] Trenton Wilkerson DDS [address] [place] [address] Social History Tobacco Use Types Packs/Day Years [...] 12:00 PM EDT Office Visit [facility] MEDICINE [address] [place] [address] Lesia Tran MD 230 [place] [address] documented as of this encounter Visit Diagnoses Not on filedocumented in this encounter Care Teams Cash Grain Grower Relationship Specialty Start Date End Date Neetu Bah AGNP [address] [place] [phone] PCP - General Family Medicine 11/28/20 01/13/23 Roma Bender FNP [address] [place] [address] PCP - General Family Medicine 01/14/23 12/06/23 Lesia Tran MD [address] [place] [address] PCP - General Internal Medicine 12/07/23 Neetu Bah AGNP [address] [place] [phone] Family Medicine 01/14/23 09/02/23 Carlos Muñiz, RN [address] [place] [address] Registered Nurse Family Medicine 09/05/24 09/05/24 Carlos Muñiz, ROXANN [address] [place] [address] [place] [id number] Registered Nurse Family Medicine 09/06/24 Jennifer Burgess 09/07/24 documented as of this encounter
--- OUTSIDE RECORDS SUMMARY | 2024-11-29 10:22 | XMS_ITS | Encounter Summary ---
Author Organization [employer] Address [address] [facility] 7t [place] [address] Care Team Providers Care Local Tanker Truck Driver Name Role Phone Roma Bender Primary Care Provider [phone] Neetu Bah Unavailable Lesia Tran MD Primary Care Provider + Carlos Muñiz RN Unavailable [phone] Carlos Muñiz RN Unavailable [phone] Jennifer Burgess Unavailable Encounter Details Date Type Department Care Team (Late st Contact Info) Description 02/19/2023 Orders Only [facility] [address] [place] [address] Roma Bender FNP [address] [place] [address] Other acute gastritis, presence of bleeding unspecified [...] Description 12/05/2024 12:00 PM EDT Office Visit [facility] [address] [place], [place] [phone] Lesia Tran MD 230 [place] [address] documented as of this encounter Visit Diagnoses Diagnosis Other acute gastritis, presence of bleeding unspecified- Primary documented in this encounter Additional Health Concerns Assessment Noted Time PHQ-9 Depression Total Score: 11 023 3:14 PM EDT documented as of this encounter Care Teams Local Tanker Truck Driver Relationship Specialty Start Date End Date Roma Bender FNP [address] [place], [place] [phone] PCP - General Family Medicine 01/14/23 12/06/23 Lesia Tran MD [address] [place] [phone] PCP - General Internal Medicine 12/07/23 Neetu Bah AGNP [address] [place] [phone] Family Medicine 01/14/23 09/02/23 Carlos Muñiz, RN [address] [place] [address] Registered Nurse Family Medicine 09/05/24 09/05/24 Carlos Muñiz, RN [address] [place] [address] Registered Nurse Family Medicine 09/06/24 Jennifer Burgess 09/07/24 documented as of this encounter
--- OUTSIDE RECORDS SUMMARY | 2024-11-29 10:22 | XMS_ITS | Encounter Summary ---
Author Organization [employer] Address [address] [place] [address] 7t [place] [address] Care Team Providers Care Ear Pull Machine Operator Name Role Phone Roma Bender Primary Care Provider [phone] Neetu Bah Unavailable [phone] Lesia Tran MD Primary Care Provider + Carlos Muñiz RN Unavailable Carlos Muñiz RN Unavailable Jennifer Burgess Unavailable Reason for Visit * Reason Onset Date Comments Medication Question 05/04/2023 Encounter Details Date Type Department Care Team (Late st Contact Info) Description 05/04/2023 Telephone [facility] MEDICINE [address] [place] [address] Roma Bender FNP [address] [place] [address] Medication Question Social History Tobacco Use Types [...] 50 MG tablet prescribed by pcp at [facility] today 05/04/23, was prescribed for 1 time daily but it was supposed to be 2 times daily. Any questions please contact [phone]. documented in this encounter Plan of Treatment Upcoming Encounters Date Type Department Care Team (Late st Contact Info) Description 12/05/2024 12:00 PM EDT Office Visit [facility] MEDICINE [address] [place] [address] Lesia Tran MD [address] [place] [address] documented as of this encounter Visit Diagnoses Not on filedocumented in this encounter Additional Health Concerns Assessment Noted Time PHQ-9 Depression Total Score: 11 10/11/2 023 3:14 PM EDT documented as of this encounter Care Teams Ear Pull Machine Operator Relationship Specialty Start Date End Date Roma Bender FNP [address] [place] [address] PCP - General Family Medicine 01/14/23 12/06/23 Lesia Tran MD [address] [place] [address] PCP - General Internal Medicine 12/07/23 Neetu Bah AGNP [address] [place] [phone] Family Medicine 01/14/23 09/02/23 Carlos Muñiz, ROXANN [address] [place] [address] Registered Nurse Family Medicine 09/05/24 09/05/24 Carlos Muñiz, ROXANN [address] [place] [address] Registered Nurse Family Medicine 09/06/24 Jennifer Burgess 09/07/24 documented as of this encounter
--- OUTSIDE RECORDS SUMMARY | 2024-11-29 10:22 | XMS_ITS | Encounter Summary ---
Author Organization [employer] Address [address] [place] [address] 7t [place] [address] Care Team Providers Care Loom Doffer Name Role Phone Neetu Bah Primary Care Provider Roma BenderP Primary Care Provider [phone] Neetu Bah Unavailable [phone] Lesia Tran MD Primary Care Provider + Carlos Muñiz RN Unavailable [phone] Carlos Muñiz RN Unavailable [phone] Jennifer Burgess Unavailable Reason for Visit * Reason Onset Date Comments New Patient 11/18/2022 Encounter Details Date Type Department Care Team (Late st Contact Info) Description 11/18/2022 Telephone [facility] MEDICINE 230 [place], [place] [phone] Koby Holland MD 230 [place], [place] [phone] New Patient Social History Tobacco Use Types [...] been transfer over to wait list for [facility]. EFFECTIVE SINCE 11/24/2022 * Telephone Encounter - Lisa Lopes - 11/18/2022 10:33 AM EDT Tc to Pt , informed that we do take insurance, but must call [employer] to change location. Once done, to please call back to facility at [phone] documented in this encounter Plan of Treatment Upcoming Encounters Date Type Department Care Team (Late st Contact Info) Description 12/05/2024 12:00 PM EDT Office Visit [facility] MEDICINE [address] [place] [address] Lesia Tran MD [address] [place] [address] documented as of this encounter Visit Diagnoses Not on filedocumented in this encounter Care Teams Loom Doffer Relationship Specialty Start Date End Date Neetu Bah AGNP [address] [place] [phone] PCP - General Family Medicine 11/28/20 01/13/23 Roma Bender FNP [address] [place] [address] PCP - General Family Medicine 01/14/23 12/06/23 Lesia Tran MD [address] [place] [address] PCP - General Internal Medicine 12/07/23 Neetu Bah AGNP [address] [place] [phone] Family Medicine 01/14/23 09/02/23 Carlos Muñiz, RN [address] [place] [address] Registered Nurse Family Medicine 09/05/24 09/05/24 Carlos Muñiz RN [address] [place] [address] Registered Nurse Family Medicine 09/06/24 Jennifer Burgess 09/07/24 documented as of this encounter
--- OUTSIDE RECORDS SUMMARY | 2024-11-29 10:22 | XMS_ITS | Encounter Summary ---
Author Organization [email or web address] Address [address] [place] [address] 7t [place] [address] Care Team Providers Care Spring Upholsterer Name Role Phone Neetu Bah Primary Care Provider Roma BenderP Primary Care Provider [phone] Neetu Bah Unavailable [phone] Lesia Tran MD Primary Care Provider + aCrlos Muñiz RN Unavailable [phone] Carlos Muñiz RN Unavailable [phone] Jennifer Burgess Unavailable Encounter Details Date Type Department Care Team (Late st Contact Info) Description 09/28/2022 Abstract [facility] ADULT DENTAL [address] [place] [address] Trenton Wilkerson DDS [address] [place] [address] Social History Tobacco Use Types Packs/Day Years [...] 12:00 PM EDT Office Visit [facility] MEDICINE [address] [place] [address] Lesia Tran MD 230 [place] [address] documented as of this encounter Visit Diagnoses Not on filedocumented in this encounter Care Teams Spring Upholsterer Relationship Specialty Start Date End Date Neetu Bah AGNP [address] [place] [phone] PCP - General Family Medicine 11/28/20 01/13/23 Roma Bender FNP [address] [place] [address] PCP - General Family Medicine 01/14/23 12/06/23 Lesia Tran MD [address] [place] [address] PCP - General Internal Medicine 12/07/23 Neetu Bah AGNP [address] [place] [phone] Family Medicine 01/14/23 09/02/23 Carlos Muñiz, RN [address] [place] [address] Registered Nurse Family Medicine 09/05/24 09/05/24 Carlos Muñiz, ROXANN [address] [place] [address] [place] [address] Registered Nurse Family Medicine 09/06/24 Jennifer Burgess 09/07/24 documented as of this encounter
--- OUTSIDE RECORDS SUMMARY | 2024-11-29 10:22 | XMS_ITS | Encounter Summary ---
Author Organization [employer] Address [address] [place] [address] 7t [place] [address] Care Team Providers Care Barkeeper Name Role Phone Lesia Tran MD Primary Care Provider + Carlos Muñiz RN Unavailable [phone] Carlos Muñiz RN Unavailable [phone] Jennifer Burgess Unavailable Reason for Visit * Reason Onset Date Comments Med Refill 05/15/2024 Encounter Details Date Type Department Care Team (Late st Contact Info) Description 05/15/2024 Telephone [facility] MEDICINE [address] [place], [place] [phone] Lesia Tran MD [address] [place] [address] Med Refill Social History Tobacco Use Types [...] 9:47 AM EST Medication was sent to [id number] on 05/01/24 with 1 refill. * Telephone Encounter - Kenisha Mtz - 05/15/2024 9:43 AM EST TC from pt requesting medication refill. Medications needing refill : hydrOXYzine pamoate (Vistaril) 25 MG capsule To be sent to: [facility]/pharmacy #[id number] - [place] [address] documented in this encounter Plan of Treatment Upcoming Encounters Date Type Department Care Team (Late st Contact Info) Description 12/05/2024 12:00 PM EDT Office Visit [facility] MEDICINE [address] [place] [address] Lesia Tran MD [address] [place] [address] documented as of this encounter Visit Diagnoses Not on filedocumented in this encounter Additional Health Concerns Assessment Noted Time PHQ-9 Depression Total Score: 21 024 2:23 PM EST documented as of this encounter Care Teams Barkeeper Relationship Specialty Start Date End Date Lesia Tran MD [address] [place] [address] PCP - General Internal Medicine 12/07/23 Carlos Muñiz RN [address] [place] [address] Registered Nurse Family Medicine 09/05/24 09/05/24 Carlos Muñiz RN [address] [place] [address] Registered Nurse Family Medicine 09/06/24 Jennifer Burgess 09/07/24 documented as of this encounter
--- OUTSIDE RECORDS SUMMARY | 2024-11-29 10:23 | XMS_ITS ---
Author Organization [employer] Address [address] [place] [address] 7t [place] [address] Care Team Providers Care Senior Chemical Engineer Name Role Phone Lesia Tran MD Primary Care Provider + Carlos Muñiz RN Unavailable [phone] Jennifer Burgess Unavailable CM Complex Status:Enrolled (Active) Start date:09/06/2024 Enrollment date:09/07/2024 Enrollment reason:Other Overview Community Referral- Contacted by [facility] contact for patient with inpatient admission attributed to HHCthat requires assistance from CM program. Please see forwarded email for information and coordination of care with inpatient SW, Karen Burt at [facility]. He has recently been put on continuous O2 2L, hehas trouble ambulating and could also use nutrition education as well, Case Team Name Relationship Phone Carlos Muñiz RN(Responsible Staff) Registered Manny tanner [phone] Continued Care and Services Coordination
--- OUTSIDE RECORDS SUMMARY | 2024-11-29 10:23 | XMS_ITS ---
Author Organization [employer] Address [address] [place] [address] 7t [place] [address] Care Team Providers Care Turf Keeper Name Role Phone Lesia Tran MD Primary Care Provider + Carlos Muñiz RN Unavailable [phone] Jennifer Burgess Unavailable CHW Complex Status:Enrolled (Active) Start date:09/07/2024 Enrollment date:09/12/2024 Overview Community Referral- Contacted by [facility] contact for patient with inpatient admission attributed to HHCthat requires assistance from CM program. Please see forwarded email for information and coordination of care with inpatient SW, Karen Burt at [facility]. He has recently been put on continuous O2 2L, hehas trouble ambulating and could also use nutrition education as well, Case Team Name Relationship Phone Jennifer Burgess(Responsible Staff) [phone] Continued Care and Services Coordination
--- OUTSIDE RECORDS SUMMARY | 2024-11-29 10:23 | XMS_ITS | Encounter Summary ---
Author Organization [employer] Address [address] [place] [address] 7t [place] [address] Care Team Providers Care Electronics Assembler Name Role Phone Lesia Tran MD Primary Care Provider + Carlos Muñiz RN Unavailable [phone] Carlos Muñiz RN Unavailable [phone] Jennifer Burgess Unavailable Reason for Visit * Reason Onset Date Comments medication 02/02/2024 Encounter Details Date Type Department Care Team (Late st Contact Info) Description 02/02/2024 Telephone [facility] ADULT DENTAL [address] [place] [address] Trenton Wilkerson DDS [address] [place] [address] medication Social History Tobacco Use Types Packs/Day [...] Description 12/05/2024 12:00 PM EDT Office Visit [facility] MEDICINE [address] [place] [address] Lesia Tran MD 230 [place] [address] documented as of this encounter Visit Diagnoses Not on filedocumented in this encounter Additional Health Concerns Assessment Noted Time PHQ-9 Depression Total Score: 21 06/09/2 024 2:23 PM EST documented as of this encounter Care Teams Electronics Assembler Relationship Specialty Start Date End Date Lesia Tran MD [address] [place] [address] PCP - General Internal Medicine 12/07/23 Carlos Muñiz, ROXANN [address] [place] [address] Registered Nurse Family Medicine 09/05/24 09/05/24 Carlos Muñiz, ROXANN [address] [place] [address] Registered Nurse Family Medicine 09/06/24 Jennifer Burgess 09/07/24 documented as of this encounter
--- OUTSIDE RECORDS SUMMARY | 2024-11-29 10:23 | XMS_ITS | Encounter Summary ---
Author Organization [employer] Address [address] [facility] 7t [place] [address] Care Team Providers Care Shirring Machine Operator Name Role Phone Lesia Tran MD Primary Care Provider + Carlos Muñiz RN Unavailable [phone] Jennifer Burgess Unavailable Encounter Details Date Type Department Care Team (Late st Contact Info) Description 09/26/2024 Results Follow-Up [facility] MED[facility]INE [address] [place] [address] Lesia Tran MD 230 [place] [address] TSH with Reflex to Free T4, Lipid Panel with Reflex to Direct LDL Social History Tobacco Use Types Packs/Day Years [...] with others, in a hotel, in a mcfp, living outside on the street, on a [...] as of this encounter Miscellaneous Notes * Result Encounter Note - Lesia Tran MD - 09/26/2024 7:28 PM EDT Labs on 09/19/2024 show 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 Will address Rx with fish oil at upcoming appointment on 10/02/2024. documented in this encounter Plan of Treatment Upcoming Encounters Date Type Department Care Team (Late st Contact Info) Description 12/05/2024 12:00 PM EDT Office Visit [facility] [address] [place] [address] Lesia Tran MD [address] [place] [address] documented as of this encounter Visit Diagnoses Not on filedocumented in this encounter Additional Health Concerns Assessment Noted Time PHQ-9 Depression Total Score: 22 025 11:24 AM EDT documented as of this encounter Care Teams Shirring Machine Operator Relationship Specialty Start Date End Date Lesia Tran MD [address] [place] [address] PCP - General Internal Medicine 12/07/23 Carlos Muñiz, RN [address] [place] [address] Registered Nurse Family Medicine 09/06/24 Jennifer Burgess 09/07/24 documented as of this encounter
--- OUTSIDE RECORDS SUMMARY | 2024-11-29 10:23 | XMS_ITS | Encounter Summary ---
Author Organization [employer] Address [address] [place] [address] 7t [place] [address] Care Team Providers Care Director Cardiac Name Role Phone Lesia Tran MD Primary Care Provider + Carlos Muñiz RN Unavailable [phone] Carlos Muñiz RN Unavailable [phone] Jennifer Burgess Unavailable Reason for Visit * Reason Onset Date Comments Nurse Triage 06/16/2024 Encounter Details Date Type Department Care Team (Late st Contact Info) Description 06/16/2024 Telephone [facility] MEDICINE [address] [place], [place] [phone] Lesia Tran MD [address] [place], [place] [phone] Nurse Triage Social History Tobacco Use Types [...] the past 12 months, has t he [employer], gas, oil or water [employer] threatened to shut off services in your [...] appt from yesterday as he was in [facility] ED ( note requested) Patient [...] is in agreement to reach out to [facility] and Crisis as needed. Has concerns for [...] had contact with Care Coordinators here at [facility] and is requesting additional help. Patient agrees to have [facility] reach out to him with worsening symptoms. [facility] and message to [facility] sent. Disposition reviewed and patient [...] - 06/16/2024 10:29 AM EDT Please obtain [facility] note from visit on 06/15/24. Patient scheduled with PCP on Wednesday06/20/24. * Telephone Encounter - Kenisha Mtz - 06/16/2024 9:52 AM EDT Symptoms: Abdominal Pain - Male, Abdominal Swelling Outcome: Schedule an urgent appointment (within 4 hours) or talk to a nurse or provider soon Reason: Started within the past 3 days The caller accepted this outcome. [phone] documented in this encounter Plan of Treatment Upcoming Encounters Date Type Department Care Team (Late st Contact Info) Description 12/05/2024 12:00 PM EDT Office Visit [facility] MEDICINE [address] [place] [address] Lesia Tran MD [address] [place] [address] documented as of this encounter Visit Diagnoses Not on filedocumented in this encounter Additional Health Concerns Assessment Noted Time PHQ-9 Depression Total Score: 21 024 2:23 PM EST documented as of this encounter Care Teams Director Cardiac Relationship Specialty Start Date End Date Lesia Tran MD [address] [place] [address] PCP - General Internal Medicine 12/07/23 Carlos Muñiz RN [address] [place] [address] Registered Nurse Family Medicine 09/05/24 09/05/24 Carlos Muñiz RN [address] [place] [address] Registered Nurse Family Medicine 09/06/24 Jennifer Burgess 09/07/24 documented as of this encounter
--- OUTSIDE RECORDS SUMMARY | 2024-11-29 10:23 | XMS_ITS | Encounter Summary ---
Author Organization [employer] Address [address] [place] [address] 7t [place] [address] Care Team Providers Care Bear Keeper Name Role Phone Lesia Tran MD Primary Care Provider + Carlos Muñiz RN Unavailable [phone] Carlos Muñiz RN Unavailable [phone] Jennifer Burgess Unavailable Reason for Visit * Reason Onset Date Comments rs appt/disconnected call 06/29/2024 Encounter Details Date Type Department Care Team (Late st Contact Info) Description 06/29/2024 Telephone [facility] ADULT DENTAL [address] [place] [address] Trenton Wilkerson DDS [address] [place] [address] rs appt/disconnected call Social History Tobacco Use [...] While I was on the line with javascript front end developer [facility] the patient disconnected the call.. The [...] Description 12/05/2024 12:00 PM EDT Office Visit [facility] MEDICINE [address] [place] [address] Lesia Tran MD [address] [place] [address] documented as of this encounter Visit Diagnoses Not on filedocumented in this encounter Additional Health Concerns Assessment Noted Time PHQ-9 Depression Total Score: 21 06/09/ 024 2:23 PM EST documented as of this encounter Care Teams Bear Keeper Relationship Specialty Start Date End Date Lesia Tran MD [address] [place] [address] PCP - General Internal Medicine 12/07/23 Carlos Muñiz, RN [address] [place] [address] Registered Nurse Family Medicine 09/05/24 09/05/24 Carlos Muñiz, RN [address] [place] [address] Registered Nurse Family Medicine 09/06/24 Jennifer Burgess 09/07/24 documented as of this encounter
--- OUTSIDE RECORDS SUMMARY | 2024-11-29 10:23 | XMS_ITS | Clinical Summary ---
Author Organization [employer] Address [address] [facility] [address] [place] [address] Care Team Providers Care Pre Fabricator Name Role Phone Andrea Amor MD Primary Care Provider + Carlos Muñiz RN Unavailable [phone] Jennifer Burgess Unavailable Allergies Active Allergy Reactions Criticality Noted Date Comments Penicillamine 09/29/2021 Penicillin G Hives 09/25/2022 Medications * This document contains information received from the source organization and may not represent a complete record from that organization. methadone (Dolophine) 10 MG/ML solution 100 mg every morning and 20 mg every evening Active Ventolin HFA 108 (90 Base) MCG/ACT inhaler Inhale 2 puffs every 4 (four) hours if needed for shortness of breath or wheezing. 5 Active Breo Ellipta 200-25 MCG/ACT aerosol powder Inhale 1 puff Once per day. 5 Active Magnesium Extra Strength 400 MG capsule Take 1 capsule by mouth at bedtime. 5 Active GaviLAX 17 GM/SCOOP powder Take 17 g by mouth 2 times daily. 4 Active Tirzepatide-Angel ght Management (Zepbound) 2.5 MG/0.5ML solution auto-injector Inject 0.5 mL (2.5 mg) under the skin 1 (one) time per week. 2 mL 1 5 Active Multiple Vitamin (Daily-Rip Multivitamin) tablet Take 1 tablet by mouth Once per day. 5 Active clonazePAM (KlonoPIN) 0.5 MG tablet Take 0.5 mg by mouth if needed in the morning, at noon, and at bedtime for anxiety. Active pancrelipase, Bov-Encx-Wasg, (Creon) 13643-08766 units capsule Take 2 capsules by mouth with breakfast, with lunch, and with evening meal. Active nortriptyline (Pamelor) 25 MG capsule Take 1 capsule by mouth at bedtime. Active hydrocortisone (Anusol-HC) 2.5 % rectal cream Insert into the rectum if needed each day for hemorrhoids. Active Aspirin Low Dose 81 MG EC tablet Take 1 tablet (81 mg) by mouth Once per day. 90 tablet 3 5 Active divalproex (Depakote) 250 MG EC tabletIndicatio ns:Severe episode of recurrent major depressive disorder, without psychotic features (CMS/HCC),Gener alized anxiety disorder with panic attacks Take 1 tablet (250 mg) by mouth 2 times daily. 60 tablet 2 5 Active famotidine (Pepcid) 20 MG tablet Take 1 tablet (20 mg) by mouth in the morning and 1 tablet (20 mg) in the evening. 60 tablet 3 5 Active furosemide (Lasix) 40 MG tablet Take 1 tablet (40 mg) by mouth Once per day. 90 tablet 1 5 Active hydrOXYzine HCl (Atarax) 25 MG tablet Take 1 tablet (25 mg) by mouth every 6 (six) hours if needed for anxiety. 120 tablet 1 5 Active OLANZapine (ZyPREXA) 5 MG tablet Take 1 tablet (5 mg) by mouth 2 times daily. 60 tablet 1 5 Active venlafaxine XR (Effexor XR) 150 MG 24 hr capsule Take 1 capsule (150 mg) by mouth Once per day. Do not crush or chew. 90 capsule 1 5 Active cloNIDine (Catapres) 0.1 MG tablet Take 1 tablet (0.1 mg) by mouth at bedtime. may take an additional tab twice a day as needed for moderate anxiety 30 tablet 3 5 Active famotidine (Pepcid) 40 MG tablet Take 40 mg by mouth at bedtime. Active lactulose (Chronulac) 10 GM/15ML solution Take 30 mL (20 g) by mouth if needed each day (constipation). 300 mL 11 5 Active Senexon-S 8.6-50 MG tablet TAKE 2 TABLETS BY MOUTH IN THE MORNING AND 2 TABLETS IN THE EVENING 360 tablet 1 5 Active ferrous sulfate 325 (65 Fe) MG EC tablet TAKE 1 TABLET BY MOUTH EVERY OTHER DAY SWALLOW WHOLE 45 tablet 5 Active Active Problems Problem Noted Date Diagnosed Date Stress incontinence of urine 10/11/2024 Severe episode of recurrent major depressive disorder, without psychotic features 10/04/2024 Upper GI bleeding 10/04/2024 Assessment & Plan (10/04/2024 3:50 PM EDT): Had an episode of hematochezia during hospitalization. Referred to GI for further evaluation IFG (impaired fasting glucose) 06/20/2024 Assessment & Plan (07/27/2024 2:59 PM EDT): >>ASSESSMENT AND PLAN FOR IFG (IMPAIRED FASTING GLUCOSE) WRITTEN ON 06/20/2024 1:13 PM BY PHILLIP BERG I gave him information regarding low calorie meals, advised to eat every 3-5 hours. Advised regarding weight reduction, will consider medications including Topamax or GLP1s. >>ASSESSMENT AND PLAN FOR HYPERGLYCEMIA WRITTEN ON 06/20/2024 1:13 PM BY PHILLIP BERG See IFG. History of substance use disorder 04/12/2024 Complete edentulism 04/12/2024 TYSON (obstructive sleep apnea) 02/11/2024 Overview (02/11/2024): Sleep study at [facility]: moderate TYSON with nocturnal hypoxemia, <88% [...] ([facility] [place] Mild persistent asthma 02/11/2024 Assessment & Plan (02/11/2024 4:00 PM EST): Doing well on Breo, fu by [facility] pulmonary Advised re [...] sciatica Overview (10/18/2023): Last Addressed Date: 12/17/2021 Assessment & Plan (10/04/2024 3:47 PM EDT): Advised regarding weight reduction, use Tylenol as needed Will refer to PT to decrease hip and low back pain, improve endurance and conditioning and and decrease risk of falls at home. Dysphagia 10/18/2023 Overview (10/18/2023): Last Addressed Date: 12/03/2021 GERD without esophagitis 10/18/2023 Overview (02/11/2024): UPPER GI SERIES IMPRESSION: 1. Moderate-sized type I hiatal hernia. 2. Moderate gastroesophageal reflux. 3. Mildly disordered esophageal peristalsis. Assessment & Plan (02/11/2024 4:01 PM EST): FU by [facility] GI, on Protonix, [...] moderate intensity exercise. Will hold referral to stock selector until next appointment once anxiety is better [...] ID: Yaniv is a 37 y.o. White Palestinian choose not to disclose-identified cis- male (pronouns he/him/his) with MH services including OP Psychotherapy psychopharmacology. Self reported [...] 2.5 years, currently on methadone at [facility], 128mg with a plan on taper [...] intervention , Patient to reach out to [facility] team as needed, and Patient to reach out to [facility] as needed Alcohol use disorder in remission 06/10/2023 Cocaine use disorder in remission 06/10/2023 Generalized anxiety disorder with panic attacks 06/10/2023 Overview (07/27/2024): >>OVERVIEW FOR ANXIETY WRITTEN ON 10/18/2023 9:42 AM BY LOYDA REED MA Last Addressed Date: 10/26/2022 Assessment & Plan (10/04/2024 3:46 PM EDT): Has recurrent panic attacks, continue Depakote olanzapine and Effexor same dose and follow-up with psychiatry (Dr. Montgomery) and psychotherapist (Clifton Motta). He is able to reach out for safety while at home with panic attacks, he has crisis numbers and he takes clonazepam as needed panic. Will refer him for home care as he may need to be monitored 24 hours due to medications, being on home oxygen and significant limitation for ADLs. I will continue providing clonazepam 0.5 mg 3 times daily as needed panic attacks until he is seen by psych prescriber. I will refer again to case management to reach out to him and decrease ED visits, he needs assistance for transportation and home care. He may also need VNA for pharmaco education, monitor mental health status and medication management Assessment & Plan (07/27/2024 3:06 PM EDT): [...] vaping cannabis Advised to reach out to recovery manager at the methadone program, avoid using any other recreational substance or alcohol Assessment & Plan (07/27/2024 2:58 PM EDT): >>ASSESSMENT AND PLAN FOR ANXIETY WRITTEN ON 02/11/2024 4:04 PM BY ANDREA AMOR MD Seen by MH provider at [facility], will bring meds at next appt. He feels safe at home and is able to reach out for safety. Assessment & Plan (06/20/2024 1:14 PM EDT): Recently started seeing psychiatry and medications, advised to fu closely with them next week. Advised to cut down on vaping cannabis. Pt feels safe at home, advised to reach out to therapist or recovery manager (he will request one at methadone program). [...] to dental clinic -sending relevant labs to [facility] for commodities and pt will f up [...] Doing well on Methadone at [facility]], has take home bottles Advised to decrease use of THC Encounters * This document contains information received from the source organization and may not represent a complete record from that organization. Date Type Department Care Team Description 11/24/2024 Patient Outreach [facility] [address] [place] [address] Andrea Amor MD 11/21/2024 Patient Outreach [facility] [address] [place] [address] Andrea Amor MD 11/17/2024 Patient Outreach [facility] [address] [place] [phone] Andrea Amor MD Care Management (C3- Follow Up Call # 3) 11/15/[address] [address] Andrea Amor MD 11/09/2024 9:00 AM EDT Office Visit [facility] [address] [place] [address] Clem, Ailyn, OD Myopia, bilateral (Primary Dx) 11/02/2024 Patient Outreach [address] [address] Andrea Aomr MD Care Coordination (C3 -W Jennifer Burgess telephone call outreach) 10/31/[address] [address] Cheryl Watts, CORPORATE COMMUNICATIONS ASSOCIATE Follow-up 10/31/2024 Patient Outreach [address] [address] Andrea Amor MD Care Management (C3CM- follow up call # 2) 10/24/2024 Orders Only GENERIC EXTERNAL DATA DEPARTMENT Provider, Generic External Data 10/23/2024 11:00 AM EDT Office Visit [facility] [address] [place] [phone] Trenton Wilkerson DDS Mild persistent asthma, unspecified whether complicated 10/23/[address] [address] Andrea Amor MD 10/22/2024 Travel 10/20/[address] [address] Andrea Amor MD Durable Medical Equipment (DME RX Pullup, Bathroom Grab Bars, Shower Bench(L&C)) 10/18/2024 Orders Only GENERIC EXTERNAL DATA DEPARTMENT Provider, Generic External Data 10/16/2024 Patient Outreach [address] [phone] Andrea Amor MD Care Coordination (C3 CM-W Jennifer Burgess telephone call outreach/) 10/15/2024 Orders Only GENERIC EXTERNAL DATA DEPARTMENT Provider, Generic External Data 10/11/2024 Refill [facility] [address] [place] [address] Andrea Amor MD 10/02/2024 1:00 PM EDT Office Visit [facility] [address] [place] [address] Tarka Mariah, OD Myopia, bilateral (Primary Dx) 10/02/2024 Travel 09/29/2024 Patient Outreach [address] [address] Andrea Amor MD 09/29/2024 Patient Outreach [address] [address] Andrea Amor MD Care Coordination 09/28/2024 Patient Outreach [address] [address] Andrea Amor MD Care Management (C3CM- Follow up call # 1) 09/26/2024 Results Follow-Up [address] [address] Andrea Amor MD Sed Rate by Modified Westergren, Rheumatoid Factor, Drug Monitoring, Panel 1, Screen, Urine, Additional followed-up results: 2 09/26/2024 Results Follow-Up [address] [address] Andrea Amor MD TSH with Reflex to Free T4, Lipid Panel with Reflex to Direct LDL 09/22/[address] [address] Andrea Amor MD Referral 09/22/[address] [phone] Andrea Amor MD Durable Medical Equipment 09/20/2024 3:30 PM EDT Office Visit [facility] [address] [place] [phone] Trenton Wilkerson, SHELLI Complete edentulism, unspecified edentulism class (Primary Dx) 09/19/2024 2:00 PM EDT Office Visit [address] [address] Andrea Amor MD Generalized anxiety disorder with panic attacks (Primary Dx); Severe episode of recurrent major depressive disorder, without psychotic features (CMS/HCC); Acute right-sided low back pain with right-sided sciatica; Upper GI bleeding 09/19/2024 Orders Only GENERIC EXTERNAL DATA DEPARTMENT Provider, Generic External Data 09/19/2024 Travel 09/18/2024 Patient Outreach [address] [address] Andrea Amor MD 09/18/[address] [address] Andrea Amor MD chart prep 09/13/2024 Patient Outreach [address] [address] Andrea Amor MD 09/12/2024 Patient Outreach [address] [address] Andrea Amor MD Care Coordination 09/12/2024 Plan of Care Documentation [address] [address] 09/08/2024 Patient Outreach [address] [address] Andrea Amor MD Care Coordination 09/07/2024 Patient Outreach [address] [address] Andrea Amor MD Care Management (C3CM- Initial assessment/enrollme nt) 09/07/2024 Patient Outreach [address] [address] Andrea Amor MD Care Coordination 09/07/2024 Patient Outreach [address] [address] Andrea Amor MD 09/07/2024 Patient Outreach [address] [place] [address] Andrea Amor MD Care Coordination (CM- chart review) 09/06/2024 Patient Outreach [address] [phone] Andrea Amor MD Care Coordination ([facility] Inpt SW) 09/06/2024 Patient Outreach [address] [address] Andrea Amor MD 09/05/2024 Patient Outreach [address] [address] Andrea Amor MD 09/05/2024 Patient Outreach [address] [address] Andrea Amor MD from Last 3 Months Immunizations Immunization Administration [...] with others, in a hotel, in a fdc, living outside on the street, on a [...] the past 12 months, has t he Private Outlet, gas, oil or water company threatened to [...] Sign Reading Time Taken Comments Blood Pressure 144/86 09/20/2024 3:22 PM EDT Pulse 112 09/19/2024 2:07 PM EDT Temperature 36.3 C (97.3 F) 09/19/2024 2:07 PM EDT Respiratory Rate 16 09/19/2024 2:07 PM EDT Oxygen Saturation 93% 09/19/2024 2:07 PM EDT Inhaled Oxygen Concentration - - Weight 138 kg (304 lb) 09/19/2024 2:07 PM EDT Height 170.2 cm (5' 7 ) 09/19/2024 2:07 PM EDT Body Mass Index 47.61 09/19/2024 2:07 PM EDT Plan of Treatment Upcoming Encounters Date Type Department Care Team (Late st Contact Info) Description 12/05/2024 12:00 PM EDT Office Visit [facility] [address] [place] [address] Andrea Amor MD [address] [place] [address] Health Maintenance Due Date Last Done Comments Dental Prophylaxis 1987 Family Planning (PISQ) 06/23/2002 HPV Vaccines (1 - Male 3-dose series) 06/23/2002 Pneumococcal Vaccine: Pediatrics (0 to 5 Years) and At-Risk Patients (6 to 49) Years (1 of 2 - PCV) 06/23/2006 Dental X-Ray: Bitewings 02/21/2015 02/20/2014 COVID-19 Vaccine ( season) 2023 09/11/2020, 07/30/2020 Dental Oral Exam 10/11/2024 04/12/2024, 02/20/2014 Influenza Vaccine (#1) 2024 , 01/28/2022, 07/14/2021 Depression Monitoring 03/14/2025 09/12/2024, 025 Disability Screening 06/08/2025 06/08/2024 Diabetes: Hemoglobin A1C 06/20/2025 06/20/2024, 030 08/2023 Alcohol/Substance Use Screening 09/12/2025 09/12/2024 SDOH Screening 09/12/2025 09/12/2024 Tobacco Screening 10/23/2025 10/23/2024 Dental X-Ray: Full Mouth 04/13/2027 025, 12/01/2023, 09/25/2022, Additional history exists Lipid Panel 09/19/2029 09/19/2024, 0 08/2023, 02/01/2023 DTaP/Tdap/Td Vaccines (9 - Td or [...] 10/27/1999, Additional history exists HIV Screening Discontinued Hepatitis C Screening Discontinued Meningococcal B Vaccine [...] Procedure Name Priority Date/Time Associated Diagnosis Comments BASIC METABOLIC PANEL Routine 10/24/2024 10:32 PM EDT HEPATIC FUNCTION PANEL Routine 10:32 PM EDT CBC WITH AUTO DIFFERENTIAL Routine 10/24/2024 9:41 PM EDT CASE PRESENTATION, DETAILED AND EXTENSIVE TREATMENT PLANNING Routine 10/23/2024 11:00 AM EDT Danay COMPLETE DENTURE - MANDIBULAR Routine 10/23/2024 11:00 AM EDT Max COMPLETE DENTURE - MAXILLARY Routine 10/23/2024 11:00 AM EDT ETHANOL Routine 10/18/2024 11:28 AM EDT LIPASE Routine 10/18/2024 11:28 AM EDT MAGNESIUM Routine 10/18/2024 11:28 AM EDT COMPREHENSIVE METABOLIC PANEL Routine 10/18/2024 11:28 AM EDT CBC WITH AUTO DIFFERENTIAL Routine 10/18/2024 11:28 AM EDT XR CHEST 2 VIEWS Routine 10/15/2024 11:5 5 AM EDT DRUG MONITOR, PANEL 1, SCREEN, URINE Routine 10/15/2024 11:01 AM EDT CULTURE, URINE, ROUTINE Routine 10/15/2024 11:01 AM EDT CASE PRESENTATION, DETAILED AND EXTENSIVE TREATMENT PLANNING Routine 09/20/2024 3:30 PM EDT WAX TRY IN Routine 09/20/2024 3:30 PM EDT ANDREA SCREEN, IFA, W/REFL TITER AND PATTERN Routine 09/19/2024 3:15 PM EDT CRP, HIGH SENSITIVITY Routine 09/19/2024 3:15 PM EDT DRUG MONITOR, PANEL 1, SCREEN, URINE Routine 09/19/2024 3:15 PM EDT RHEUMATOID FACTOR Routine 09/19/2024 3:1 5 PM EDT SED RATE BY MODIFIED WESTERGREN Routine 09/19/2024 3:15 PM EDT BASIC METABOLIC PANEL Routine 09/19/2024 3:15 PM EDT Severe episode of recurrent major depressive disorder, without psychotic features (CMS/HCC) Generalized anxiety disorder with panic attacks LIPID PANEL WITH REFLEX TO DIRECT LDL Routine 09/19/2024 3:15 PM EDT IFG (impaired fasting glucose) Morbid obesity (CMS/HCC) TSH W/REFLEX TO FT4 Routine 09/19/2024 3 :15 PM EDT Morbid obesity (CMS/HCC) POCT GLYCATED HEMOGLOBIN, TOTAL Routine 06/20/2024 12:05 PM EDT Hyperglycemia PANORAMIC RADIOGRAPHIC IMAGE Routine 04/12/2024 2:30 PM EST PERIODIC ORAL EVALUATION - ESTABLISHED PATIENT Routine 04/12/2024 2:30 PM EST INTRAORAL - COMPLETE SERIES OF RADIOGRAPHIC IMAGES Routine 02/20/2014 12:00 AM EST from Last 3 Months or Most Recently Relevant to Health Maintenance Results * (ABNORMAL) Hepatic Function Panel (10/24/2024 10:32 PM EDT) Bilirubin, Total 0.3 0.0 - 1.0 mg/dL [facility] Bilirubin, Direct 0.1 0.0 - 0.5 mg/dL [facility] Aspartate Amino Transferase 31 5 - 37 U/L [facility] Alanine Aminotransferase 29 0 - 40 U/L [facility] Total Protein 7.6 6.5 - 8.0 g/dL [facility] Albumin Level 3.7 3.5 - 5.0 g/dL [facility] Alkaline Phosphatase 121(H) 39 - 117 U/L [facility] 10/24/2024 10:3 2 PM EDT 10/24/2024 10:46 PM EDT us Generic External Data Provider LAB BLOOD ORDERAB LES Final Result [facility] [address] [place] [phone] * (ABNORMAL) Basic Metabolic Panel (10/24/2024 10:32 PM EDT) Only the most recent of2 resultswithin the time period is included. Sodium 139 135 - 145 mmol/L [facility] Potassium 4.5 3.3 - 5.1 mmol/L [facility] Chloride 100 96 - 108 mmol/L [facility] Carbon Dioxide 31(H) 22 - 29 mmol/L [facility] Anion Gap 13 12 - 20 [facility] Urea Nitrogen (BUN) 10 9 - 16 mg/dL [facility] Creatinine, Serum 0.82 0.5 - 1.4 mg/dL [facility] Creatinine Clr Calc Pharmacy 167.8 [facility] Comment:eGFR (calculated fro m the MDRD study equation) and eCrCl(calculated from the Cockcroft-Gault equation) are based ondifferent parameters and may not yield comparable results.If eCrCl result is absurd, please check patient'sheight/weight. Estimated Glomerular Filt Rate >60 [facility] Comment:Chronic Kidney Disea se: Estimated GFR < 60 mL/min/1.02a1Mbhxdg Kidney Disease: Estimated GFR < 15 mL/min/1.73m2 Glucose 107 60 - 115 mg/dL [facility] Calcium 8.7 8.4 - 10.2 mg/dL [facility] 10/24/2024 10:3 2 PM EDT 10/24/2024 10:46 PM EDT us Generic External Data Provider LAB BLOOD ORDERAB LES Final Result [facility] [address], [place] [phone] * (ABNORMAL) CBC auto differential (10/24/2024 9:41 PM EDT) Only the most recent of2 resultswithin the time period is included. White Blood Count 14.9(H) 4.8 - 10.8 X10*3/uL [facility] Red Blood Count 4.57(L) 4.60 - 5.80 X10*6/uL [facility] Hemoglobin 12.1(L) 14.0 - 18.0 g/dl [facility] Hematocrit 38.2(L) 42.0 - 52.0 % [facility] Mean Corpuscular Volume 83.6 80.0 - 98.0 fL [facility] Mean Corpuscular Hemoglobin 26.5(L) 27.0 - 33.0 pg [facility] Mean Corpuscular HGB Conc 31.7 31.0 - 36.0 g/dl [facility] Red Cell Distribution Width 16.0 11.0 - 16.0 % [facility] Platelet Count 286 160 - 400 X10*3/uL [facility] Mean Platelet Volume 8.4(L) 9.4 - 12.4 fL [facility] Neutrophils Percent Auto 78.1(H) 45 - 73 % [facility] Imm Gran Pct Auto 0.8(H) 0.0 - 0.4 % [facility] Lymphocytes Percent Auto 9.1(L) 20 - 40 % [facility] Monocytes Percent Auto 8.2 2 - 11 % [facility] Eosinophils Percent Auto 3.5 0 - 4 % [facility] Basophils Percent Auto 0.3 0 - 2 % [facility] NRBC Pct Auto 0.0 0.0 - 0.2 /100WBC [facility] Neutrophils Absolute Auto 11.6(H) 2.0 - 8.3 x10*3/uL [facility] Imm Gran Abs Auto 0.12(H) 0.00 - 0.03 X10*3/uL [facility] Lymphocytes Absolute Auto 1.4 1.2 - 4.9 X10*3/uL [facility] Monocytes Absolute Auto 1.2 0.1 - 1.2 X10*3/uL [facility] Eosinophils Absolute Auto 0.5(H) 0.0 - 0.4 X10*3/uL [facility] Basophils Absolute Auto 0.1 0.0 - 0.2 X10*3/uL [facility] NRBC Abs Auto 0.000 0.0 - 0.012 X10*3/uL [facility] 10/24/2024 9:41 PM EDT 10/24/2024 9:48 PM EDT Generic External Data Provider LAB BLOOD ORDERAB LES Final Result Performing Organization Address [facility]/ZIP Co de Phone Number [facility] [address] [place] [phone] * Ethanol (10/18/2024 11:28 AM EDT) ETHANOL (MG/DL) IN SER/PLAS <10 mg/dL [facility] Comment:Serum/plasma ethanol results are to be used formedical/treatment purposes only. 10/18/2024 11:2 8 AM EDT 10/18/2024 11:35 AM EDT Generic External Data Provider LAB BLOOD ORDERAB LES Final Result Performing Organization Address [facility] Co de Phone Number [facility] [address] [place] [phone] * Magnesium (10/18/2024 11:28 AM EDT) Magnesium 2.0 1.6 - 2.6 mg/dL [facility] 10/18/2024 11:2 8 AM EDT 10/18/2024 11:35 AM EDT Generic External Data Provider LAB BLOOD ORDERAB LES Final Result Performing Organization Address [facility] Co de Phone Number [facility] [address] [place] [phone] * Lipase (10/18/2024 11:28 AM EDT) Lipase 14 8 - 78 U/L [facility] 10/18/2024 11:2 8 AM EDT 10/18/2024 11:35 AM EDT us Generic External Data Provider LAB BLOOD ORDERAB LES Final Result [facility] [address] [place] [phone] * (ABNORMAL) Comprehensive Metabolic Panel (10/18/2024 11:28 AM EDT) Sodium 135 135 - 145 mmol/L [facility] Potassium 4.5 3.3 - 5.1 mmol/L [facility] Chloride 99 96 - 108 mmol/L [facility] Carbon Dioxide 28 22 - 29 mmol/L [facility] Anion Gap 13 12 - 20 [facility] Urea Nitrogen (BUN) 15 9 - 16 mg/dL [facility] Creatinine, Serum 0.89 0.5 - 1.4 mg/dL [facility] Creatinine Clr Calc Pharmacy 139.9 [facility] Comment:eGFR (calculated fro m the MDRD study equation) and eCrCl(calculated from the Cockcroft-Gault equation) are based ondifferent parameters and may not yield comparable results.If eCrCl result is absurd, please check patient'sheight/weight. Estimated Glomerular Filt Rate >60 [facility] Comment:Chronic Kidney Disea se: Estimated GFR < 60 mL/min/1.09e0Ocazyi Kidney Disease: Estimated GFR < 15 mL/min/1.73m2 Glucose 107 60 - 115 mg/dL [facility] Calcium 8.8 8.4 - 10.2 mg/dL [facility] Bilirubin, Total 0.5 0.0 - 1.0 mg/dL [facility] Aspartate Amino Transferase 33 5 - 37 U/L [facility] Alanine Aminotransferase 38 0 - 40 U/L [facility] Total Protein 8.2(H) 6.5 - 8.0 g/dL [facility] Albumin Level 4.1 3.5 - 5.0 g/dL [facility] Alkaline Phosphatase 143(H) 39 - 117 U/L [facility] 10/18/2024 11:2 8 AM EDT 10/18/2024 11:35 AM EDT us Generic External Data Provider LAB BLOOD ORDERAB LES Final Result [facility] [address] [place] [phone] * XR Chest 2 Views (10/15/2024 11:55 AM EDT) Anatomical Region Laterality Modality Chest Radiographic Elizabet ging 10/15/2024 11:5 5 AM EDT Narrative 10/15/2024 11:57 AM EDT [address] [address] XRay Report Signed Patient: Yaniv Gutierrez MR#: [id number] : 1985 Acct:[id number] Age/Sex: 39 / M ADM Date: 10/15/24 Loc: .ED Attending Dr: Ordering Physician: Layo Serrano DO Date of Service: 10/15/24 Procedure(s): XR chest 2V Accession Number(s): [id number] cc: Andrea Amor MD; Layo Serrano DO CLINICAL HISTORY: hypoxia, recent PNA 2 views chest Comparison: CT/SR - CT ANGIO CHEST PE PROTOCOL - 08/27/24 14:38 EDT Findings: Cardiac and mediastinal contours are normal. Mild interstitial prominence with scattered peribronchial thickening. No focal consolidation. No effusion. No pneumothorax. No acute osseous finding. Impression: Mild interstitial prominence with scattered peribronchial thickening, similar to prior. No focal consolidation. This document has been electronically signed by: Guido Prather MD on 10/15/2024 11:55:23 Dictated By: Guido Prather MD Signed By: <Electronically signed by Guido Prather MD in OV> 10/15/24 1156 DD/ 1155 TD/TT: 10/15/24 1155 Customer Contact Sales Associate: Procedure Note Donotuseinterpreter, Image - 10/15/[address] [address] XRay Report Signed Patient: Yaniv Gutierrez GMR#: [id number] : 1985Acct:[id number] Age/Sex: 39 / MADM Date: 10/15/24 Loc: HO.ED Attending Dr: Ordering Physician: Layo Serrano DO Date of Service: 10/15/24 Procedure(s): XR chest 2V Accession Number(s): [id number] cc: Andrea Amor MD; Layo Serrano DO CLINICAL HISTORY: hypoxia, recent PNA 2 views chest Comparison: CT/SR - CT ANGIO CHEST PE PROTOCOL - 08/27/24 14:38 EDT Findings: Cardiac and mediastinal contours are normal. Mild interstitial prominence with scattered peribronchial thickening. No focal consolidation. No effusion. No pneumothorax. No acute osseous finding. Impression: Mild interstitial prominence with scattered peribronchial thickening, similar to prior. No focal consolidation. This document has been electronically signed by: Guido Prather MD on 10/15/2024 11:55:23 Dictated By: Guido Prather MD Signed By: <Electronically signed by Guido Prather MD in OV> 10/15/24 1156 DD/ 1155 TD/TT: 10/15/24 1155 Customer Contact Sales Associate: [facility] External Provider IMG XR PROCEDURES Final Result * (ABNORMAL) Drug Monitoring, Panel 1, Screen, Urine (10/15/2024 11:01 AM EDT) Only the most recent of2 resultswithin the time period is included. Opiate Screen Urine Not Detected Not Detect [facility] Comment:Opiate cut-off is 30 0 ng/mL.Positive results are unconfirmed and should not be used fornon-medical purposes. Barbiturates, Urine Not Detected Not Detect [facility] Comment:Barbiturate cut-off is 200 ng/mL.Positive results are unconfirmed and should not be used fornon-medical purposes. Phencyclidine Screen Urine Not Detected Not Detect [facility] Comment:Phencyclidine cut-of f is 25 ng/mL.Positive results are unconfirmed and should not be used fornon-medical purposes. Amphetamine Screen Urine Not Detected Not Detect [facility] Comment:Amphetamine cut-off is 1000 ng/mL.Positive results are unconfirmed and should not be used fornon-medical purposes. Benzodiazepines Screen Urine Not Detected Not Detect [facility] Comment:Benzodiazepine cut-o ff is 200 ng/mL.Positive results are unconfirmed and should not be used fornon-medical purposes. Cocaine Screen Urine Not Detected Not Detect [facility] Comment:Cocaine cut-off is 3 00 ng/mL.Positive results are unconfirmed and should not be used fornon-medical purposes. Cannabinoid Screen Urine POSITIVE(A) Not Detect [facility] Comment:Cannabinoid cut-off is 50 ng/mL.Positive results are unconfirmed and should not be used fornon-medical purposes. Methadone Screen, Urine Positive(A) Not Detect ng/mL [facility] Comment:Methadone cut-off is 300 ng/mL.Positive results are unconfirmed and should not be used fornon-medical purposes. FENTANYL URINE Not Detected Not Detect [facility] Comment:Fentanyl cut-off is 1 ng/mL.Positive results are unconfirmed and should not be used fornon-medical purposes. Oxycodone Urine Screen Not Detected Not Detect ng/mL [facility] Comment:Oxycodone cut-off is 100 ng/mL.Positive results are unconfirmed and should not be used fornon-medical purposes. Buprenorphine Screen Not Detected Not Detect ng/mL [facility] Comment:Buprenorphine cut-of f is 5 ng/mL.Positive results are unconfirmed and should not be used fornon-medical purposes. 10/15/2024 11:0 1 AM EDT 10/15/2024 11:06 AM EDT us Generic External Data Provider LAB URINE ORDERAB LES Final Result [facility] [address] [place] [phone] * Culture, Urine, Routine (10/15/2024 11:01 AM EDT) Urine Urine specimen obtained by clean catch procedure / Unknown 10/15/2024 11:01 AM EDT 10/15/2024 11:06 AM EDT Comment:UACC Narrative [facility] - 10/16/2024 12:22 PM EDT Urine Culture No growth. Specimen Source: Urine clean catch us Generic External Data Provider LAB MICROBIOLOGY - GENERAL ORDERABLES Final Result [facility] [address] [place] [phone] * (ABNORMAL) CRP, HIGH SENSITIVITY (09/19/2024 3:15 PM EDT) CRP, High Sensitivity 10.1(A) mg/L [facility] Comment: Reference RangeOptimal <1.0Sara PS et al. Endocr Pract.2017;23(Suppl 2):1- 87.For ages >17 Years:hs-CRP mg/L Risk According to AHA/CDC Guidelines<1.0 Lower relative cardiovascular risk.1.0-3.0 Average relative cardiovascular risk.3.1-10.0 Higher relative cardiovascular risk. Consider retesting in 1 to 2 weeks to exclude a benign transient elevation in the baseline CRP value secondary to infection or inflammation.>10.0 Persistent elevation, upon retesting, may be associated with infection and inflammation.Jackson TA, Faiza GA, Kerwin RW, et al. Markersof inflammation and cardiovascular disease:application to clinical and public health practice:A statement for healthcare professionals from theCenters for Disease Control and Prevention and theAmerican Heart Association. Circulation 2003; 107(3):499-511.THIS TEST WAS PERFORMED AT:[facility] [place] [phone] AMAYA MD 09/19/2024 3:15 PM EDT 09/19/2024 4:07 PM EDT us Generic External Data Provider LAB BLOOD ORDERAB LES Final Result Performing Organization Address City/[facility]/ZIP Co de Phone Number [facility] [address] [place] [phone] * TSH with Reflex to Free T4 (09/19/2024 3:15 PM EDT) TSH reflex Free T4 1.41 0.32 - 4.0 uIU/mL [facility] Blood 09/19/2024 3:15 PM EDT 09/19/2024 4:08 PM EDT us Andrea Amor MD LAB BLOOD ORDERABLES Fin al Result Performing Organization Address [facility] Co de Phone Number [facility] [address] [place] [phone] * (ABNORMAL) Lipid Panel with Reflex to Direct LDL (09/19/2024 3:15 PM EDT) Triglycerides 304(H) <150 mg/dL [facility] Comment:Desirable Triglyceri de: less than 150 mg/dLBorderline High Triglyceride 150-199 mg/dLHigh Triglyceride: 200-499 mg/dLVery High Triglyceride: greater than or equal to 5OO mg/dL Cholesterol 184 <200 mg/dL [facility] Comment:Desirable Cholestero l: less than 200 mg/dLBorderline High Cholesterol: 200-239 mg/dLHigh Cholesterol: greater than 239 mg/dL LDL Cholesterol Calculated 81 <100 mg/dL [facility] Comment:Desirable LDL: less than 100 mg/dLNear Optimal/Above Optimal LDL: 110- 129 mg/dLBorderline High LDL: 130-159 mg/dLHigh LDL: 160-189 mg/dLVery High LDL: greater than or equal to 190 mg/dL HDL Cholesterol 43 >40 mg/dL [facility] Comment:Desirable HDL: great er than 40 mg/dL Note: This HDL assay may give artificially low results in patients with liver disease. Blood 09/19/2024 3:15 PM EDT 09/19/2024 4:08 PM EDT us Andrea Amor MD LAB BLOOD ORDERABLES Fin al Result Performing Organization Address [facility] Co de Phone Number [facility] [address] [place] [phone] * (ABNORMAL) Sed Rate by Modified Stevenergren (09/19/2024 3:15 PM EDT) Pathologist [facility] Erythrocyte Sedimentation Rate 38(H) 0 - 15 MM/HR [facility] Comment:Patients with polycy themia and many hemoglobin abnormalitiesmay have depressed sed rates whereas patients with anemiamay have elevated sed rates. 09/19/2024 3:15 PM EDT 09/19/2024 4:08 PM EDT Generic External Data Provider LAB BLOOD ORDERAB LES Final Result Performing Organization Address [facility] de Phone Number [facility] [address] [place] [phone] * Rheumatoid Factor (09/19/2024 3:15 PM EDT) [facility] Rheumatoid Factor <13.0 <15.0 IU/mL [facility] 09/19/2024 3:15 PM EDT 09/19/2024 4:08 PM EDT Generic External Data Provider LAB BLOOD ORDERAB LES Final Result Performing Organization Address [facility] de Phone Number [facility] [address] [place] [phone] * ANDREA Screen,IFA, with Reflex to Titer and Pattern (09/19/2024 3:15 PM EDT) [facility] Anti Nuclear Antibody Screen NEGATIVE NEGATIVE [facility] Comment:ANDREA IFA is a first l ine screen for detecting thepresence of up to approximately 150 autoantibodies invarious autoimmune diseases. A negative ANDREA IFA resultsuggests an ANDREA-associated autoimmune disease is notpresent at this time, but is not definitive. If thereis high clinical suspicion for Sjogren's syndrome,testing for anti-SS-A/Ro antibody should be considered.Anti-Fely-1 antibody should be considered for clinicallysuspected inflammatory myopathies.AC-0: NegativeInternational Consensus on ANDREA Patterns(https://doi.org/10.1515/sptu-7766-8965)For additional information, please refer [email or web address].[email or web address]/faq/CRH631(This link is being provided for informational/educational purposes only.)THIS TEST WAS PERFORMED AT:[facility] [place] [phone] AMAYA MD ANDREA Titer [facility] ANDREA Pattern [facility] ANDREA TITER 2 (REF LAB) [facility] ANDREA Pattern 2 [facility] ANDREA TITER 3 [facility] ANDREA PATTERN 3 [facility] 09/19/2024 3:15 PM EDT 09/19/2024 4:07 PM EDT us Generic External Data Provider LAB BLOOD ORDERAB LES Final Result [facility] [address] [place] [phone] * POCT HGB A1C (06/20/2024 12:05 PM EDT) Hemoglobin A1C 6.0 4.0 - 6.0 % QC Media Lot # [id number] Lot# Expiration Date [id number] Blood 06/20/2024 12:0 5 PM EDT us Andrea Amor MD POINT OF CARE TEST ENTER /EDIT ORDERABLES Final Result from Last 3 Months or Most Recently Relevant to Health Maintenance [place] [facility] Care Teams Pre Fabricator Relationship Specialty Start Date End Date Andrea Amor MD [address] [place] [phone] PCP - General Internal Medicine 12/07/23 Carlos Muñiz, RN [address] [place] [address] [place] [address] Registered Nurse Family Medicine 09/06/24 Jennifer Burgess 09/07/24
== END ==
LOC: HO.SL 09:41
PROVIDERS: PCP Internal Medicine; Visit Provider Nurse Practitioner Family
DX: G47.33 Obstructive sleep apnea (adult) (pediatric) (principal); R40.0 Somnolence
CPT/HCPCS: 95806

== ENCOUNTER → 2024-11-29 09:55 | Outpatient (BNV) | payer MEDICAID, SELFPAY | PROVIDERS: PCP Internal Medicine; Visit Provider Internal Medicine | DX: G47.33 Obstructive sleep apnea (adult) (pediatric) (principal) | CPT/HCPCS: 95806 ==

== ENCOUNTER 2024-12-11 15:37 | Outpatient (AMB) | payer MEDICAID, SELFPAY ==
[2024-12-11 15:39] VITALS: BP 132/70; PULSE 91; O2SAT 94; BMI 50.1
--- NOTE | 2024-12-11 15:39 | MHC.OFFVIS ---
Vital Signs 12/11/24 15:39 Height 5 ft 7 in Weight 319 lb 10.724 oz BMI 50.1 BP 132/70 Blood Pressure Location Rt radial Position Sitting Pulse 91 Pulse Source Pulse Oximeter Pulse Oximetry (%) 94 Oxygen Delivery Method Nasal Cannula Oxygen Flow Rate 2 Intake Visit Reasons: hx of pneumonia Allergies Penicillins (PENICILLINS) Allergy (Unknown, Verified 12/11/24 15:43) RASH HPI HPI hx of pneumonia: Details: Yaniv is a pleasant 39 year old male, former 20 pack year smoker, quit 2 years ago, currently smoking marijuana/vaping with underlying asthma, TYSON unable to tolerate CPAP, nocturnal hypoxemia, bipolar disorder, h/o polysubstance abuse maintained on methadone and GERD. In August patient with PNA positive MRSA swab, blood cultures discharged with Bactrim which he completed 09/10 after a two week course. He was evaluated by Dr. Evans in patient who reviewed chest CT and suspected a degree of micro aspirations contributing to findings. He was then evaluated inpatient by Dr. Nichols 2 weeks later who reviewed imaging with suspicions of pulmonary edema, and patient was started on Lasix 40 mg daily. Unfortunately gas treater is moving and he will have to establish with another practice. Swallowing difficulties persist with noted aspiration concerns, necessitating MBSS which is scheduled next month. He was evaluated by ENT, reportedly with no treatment offered other than nasal rinses. He has upcoming chest CT to assess for resolution of PNA later this week. Since started Trelegy he reports overall improvements in dyspnea however notes worsening cough with whitish yellow sputum. He does report aspirating in sleep a few nights ago despite wedge pillow. He endorses reflux however is not following a reflux diet, currently under the care of GI. He denies fevers or chills, endorses intermittent chest congestion. He has been using 2L supplemental oxygen with exertion and requesting evaluation for POC through [employer]. He also uses 2L NOC and recently had home sleep study to assess severity of TYSON. Of note, since switching psych medications patient no longer diaphoretic. He denies any visits to urgent care or hospitalizations related to respiratory distress since the last visit. [facility] Medical History GERD (gastroesophageal reflux disease) Pulmonary edema Opioid use disorder Acute exacerbation of moderate persistent extrinsic asthma Pneumonitis Opioid use disorder, severe, in early remission Suicidal ideation Exocrine pancreatic insufficiency Polysubstance abuse No known health problems Surgical History Hx of tonsillectomy Social History Household Members: Family Housing: House Do you presently have visiting nurse or other home services: No Alcohol intake: former Comment: sitter at bedside Patient Tobacco Use Status: Former Tobacco user Substance Use Type: Marijuana Advance Directives Date on File: 03/15/24 service: No Sexual orientation: Straight/Heterosexual Review of Systems Const Denies fever(s) and Denies headache(s) Eyes Denies dry eyes, Denies irritation and Denies itchy eyes ENT Reports Normal hearing present, Denies headache(s), Reports nasal congestion, Reports sinus pressure and Denies sore throat Card Denies chest pain, Denies chest pain at rest, Denies chest pain with activity, Denies claudication, Reports dyspnea on exertion, Denies orthopnea and Denies paroxysmal nocturnal dyspnea Resp Reports change in phlegm color, Reports chest congestion, Reports cough, Denies hemoptysis, Denies excessive phlegm production, Denies pain on inspiration, Denies pain with cough, Reports dyspnea on exertion, Denies stridor and Denies wheezing Musc Denies myalgias Neuro Reports Normal hearing present and Denies headache(s) Nnamdi/Lymph Denies lymphadenopathy Aller/Immun Denies itchy eyes, Denies seasonal rhinorrhea and Denies wheezing Physical Exam Vital Signs: Last Vital Signs Pulse 91 12/11/24 15:39 BP 132/70 12/11/24 15:39 Pulse Ox 94 12/11/24 15:39 Oxygen Delivery Method Nasal Cannula 12/11/24 15:39 Oxygen Flow Rate 2 12/11/24 15:39 BMI result Body Mass Index 50.1 Const General: cooperative, no acute distress and alert Nutritional Appearance: obese Orientation/consciousness: patient oriented x3 Limitations: no limitations HEENT Head: Yes normal to inspection, Yes normocephalic and Yes atraumatic Ears: hearing grossly normal bilaterally and external ears normal Eyes General: appearance normal, both eyes and all related structures Eyelids: Yes eyelids normal Sclerae: sclerae normal EOM: EOMs intact bilaterally Neck Neck: Yes normal visual inspection and Yes no lymphadenopathy Lymphatic: no lymphadenopathy noted Chest Chest palpation & inspection: normal inspection of the chest Resp Effort & Inspection: normal respiratory effort, able to speak in complete sentences, no audible wheezes, no stridor, not tachypneic, no tripod positioning and no use of accessory muscles Auscultation: diminished lung sounds Cardio Jugular venous distension: no JVD Rate: regular rate Rhythm: regular rhythm Skin Other: warm, dry General skin exam: no rashes or lesions noted Neuro General: patient oriented x3 Cranial nerves: Yes Normal hearing present Cognition (Neuro): normal cognition Gait exam (Neuro): Normal gait present Extrem General: Yes normal to inspection, Yes capillary refill normal, Yes no clubbing, cyanosis or edema and Yes no pedal edema Psych Appearance: grossly normal and well kempt Mental Status: mental status grossly normal Speech and movement: Normal speech and movement present and Clear speech present Affect: Anxious affect present Attitude: cooperative Thought process: Normal thought process present Thought content: Normal thought content present Insight: Fair insight present (Psych) Judgement: Fair judgement present (Psych) Assessment & Plan Assessment & Plan (1) Asthma: Code(s): J45.909 - Unspecified asthma, uncomplicated Category: Medical (2) Dyspnea on exertion: Code(s): R06.09 - Other forms of dyspnea Category: Medical (3) History of recent pneumonia: Code(s): Z87.01 - Personal history of pneumonia (recurrent) Category: Medical (4) Nocturnal hypoxemia: Code(s): G47.34 - Idiopathic sleep related nonobstructive alveolar hypoventilation Category: Medical (5) Cough: Code(s): R05.9 - Cough, unspecified Category: Medical Plan Advised to continue Trelegy, albuterol MDI PRN as well as 2 liters of oxygen therapy with exertion and NOC, will schedule 6MWT to assess continued need of supplemental oxygen as well as POC evaluation. Reviewed home sleep study which was negative for TYSON however did reveal mild nocturnal hypoxemia, despite using 2L NOC. Will send for in lab sleep study for more thorough evaluation. Patient has upcoming chest CT to assess for resolution of PNA, was supposed to be scheduled 4 weeks after last visit however scheduled 3 months out due to patient's availability/insurance. Patient currently with bronchitic symptoms and noted aspirating in sleep a few nights prior. PCN allergy however tolerated Cefpodoxime previously, will send in. He is aware to call if symptoms do not improve or seek emergent care if they worse. He also has upcoming MBSS to assess for any aspiration scheduled next month. Engagement with a gas treater is advised for differential evaluation of pulmonary-cardiac dynamics and continued need for lasix. He agreed to discuss with PCP as he needs new referral to cardiology. All questions were answered and patient is in agreement of plan. Will follow-up in 8-10 weeks or sooner if needed. Offered sooner appointment in [place] however patient declined. Orders: Orders RT PSG in-lab sleep study Today G47.34 - Idiopathic sleep related nonobstructive alveolar hypoventilation, R40.0 - Somnolence Medications: New cefpodoxime must administer with a meal/food 200 mg PO BID 20 tabs 0RF Coding Level of Care Code Est Pt Level 4 (02065) Complex EM visit Add On G2211 Diagnoses Asthma J45.909 Dyspnea on exertion R06.09 History of recent pneumonia Z87.01 Nocturnal hypoxemia G47.34 Cough R05.9
--- OUTSIDE RECORDS SUMMARY | 2024-12-11 18:30 | XMS_ITS | Clinical Summary ---
Author Organization [employer] Address [address] [facility] [address] [place] [address] Care Team Providers Care Vegetable Tier Name Role Phone Andrea Amor MD Primary Care Provider + Carlos Muñiz RN Unavailable [phone] Jennifer Burgess Unavailable Allergies Active Allergy [...] of breath or wheezing. 06/21/19 25 Active Magnesium Extra Strength 400 MG capsule Take 1 capsule by mouth at bedtime. 06/10/19 25 Active GaviLAX 17 GM/SCOOP powder Take 17 g by mouth 2 times daily. 12/09/19 24 Active clonazePAM (KlonoPIN) 0.5 MG tablet Take 0.5 mg by mouth if needed in the morning, at noon, and at bedtime for anxiety. Active pancrelipase, Tvo-Diuy-Oxxc, (Creon) 87518-82145 units capsule Take 2 capsules by mouth [...] by mouth Once per day. 90 tablet 09/20/19 25 Active divalproex (Depakote) 250 MG EC tabletIndicati ons:Severe episode of recurrent major depressive disorder, without psychotic features (CMS/HCC),Gene ralized anxiety disorder with panic attacks Take 1 tablet (250 mg) by mouth 2 times daily. 60 tablet 2 09/20/19 25 Active famotidine (Pepcid) 20 MG tablet Take 1 tablet (20 mg) by mouth in the morning and 1 tablet (20 mg) in the evening. 60 tablet 09/20/19 25 Active furosemide (Lasix) 40 MG tablet Take 1 tablet (40 mg) by mouth Once per day. 90 tablet 1 09/20/19 25 Active hydrOXYzine HCl (Atarax) 25 MG tablet Take 1 tablet (25 mg) by mouth every 6 (six) hours if needed for anxiety. 120 tablet 09/20/19 25 Active OLANZapine (ZyPREXA) 5 MG tablet Take 1 tablet (5 mg) by mouth 2 times daily. 60 tablet 1 09/20/19 25 Active venlafaxine XR (Effexor XR) 150 MG 24 hr capsule Take 1 capsule (150 mg) by mouth Once per day. Do not crush or chew. 90 capsule 09/20/19 25 Active cloNIDine (Catapres) 0.1 MG tablet Take 1 tablet (0.1 mg) by mouth at bedtime. may take an additional tab twice a day as needed for moderate anxiety 30 tablet 09/20/19 25 Active lactulose (Chronulac) 10 GM/15ML solution Take 30 mL (20 g) by mouth if needed each day (constipation ). 300 mL 10/12/19 25 Active Senexon-S 8.6-50 MG tablet TAKE 2 TABLETS BY MOUTH IN THE MORNING AND 2 TABLETS IN THE EVENING 360 tablet 10/13/19 25 Active ferrous sulfate 325 (65 Fe) MG EC tablet TAKE 1 TABLET BY MOUTH EVERY OTHER DAY SWALLOW WHOLE 45 tablet 10/26/19 25 Active Multiple Vitamin (Daily-Rip Multivitamin) tablet Take 1 tablet by mouth Once per day. 90 tablet 3 12/07/19 25 Active Semaglutide-We ight Management (Wegovy) 0.25 MG/0.5ML solution auto-injector Inject 0.5 mL (0.25 mg) under the skin 1 (one) time per week. 2 mL 2 12/07/19 25 Active Breo Ellipta 200-25 MCG/ACT aerosol powder Inhale 1 puff Once per day. 07/07/19 25 025 Discontinued(In effective) Tirzepatide-We ight Management (Zepbound) 2.5 MG/0.5ML solution auto-injector Inject 0.5 mL (2.5 mg) under the skin 1 (one) time per week. 2 mL 1 07/14/19 25 025 Discontinued(Si de effects) Multiple Vitamin (Daily-Rip Multivitamin) tablet Take 1 tablet by mouth Once per day. 08/01/19 025 Discontinued(Re order (will not trigger notification to Pharmacy)) famotidine (Pepcid) 40 MG tablet Take 40 mg by mouth at bedtime. 09/15/19 25 025 Discontinued(In effective) Active Problems Problem Noted Date Diagnosed Date Stress incontinence of urine 10/11/2024 Assessment & Plan (12/06/2024 2:16 PM EDT): Unclear if patient has overnight diaphoresis,? Hypoglycemia,? Anxiety versus actual urinary incontinence. Patient will continue monitoring other symptoms of incontinence, including smell of urine, irritation in the perineal area, or other urinary symptoms and will follow-up at next visit. He will continue to wear pull-ups for now and protect bed with disposable pads. I recommended to use zinc oxide paste on perennial area to protect from skin ulcerations related to urine related dermatitis Upper GI bleeding 10/04/2024 Assessment & Plan [...] apnea) 02/11/2024 Overview (02/11/2024): Sleep study at [facility]: moderate TYSON with nocturnal hypoxemia, <88% 24.1 minutes, lowest 77%. Assessment & Plan (06/20/2024 1:12 PM EDT): Pt has not been able to use CPAP, will call sleep specialist to check next appointment. Advised regarding weight reduction, consider Zepbound. Consider Hypoglossal nerve stimulator implant. Fu with sleep specialist. Assessment & Plan (02/11/2024 3:58 PM EST): [facility] Mild persistent asthma 02/11/2024 Assessment & Plan (02/11/2024 4:00 PM EST): Doing well on Breo, fu by [facility] pulmonary Advised re weight reduction. Declined Influenza [...] (02/11/2024 4:01 PM EST): FU by [facility] GI, on Protonix, senna prn constipation Advised re weight reduction, may try Topamax after labs. Advised to avoid THC use Morbid obesity 10/18/2023 Overview (10/18/2023): Last Addressed Date: 10/26/2022 Assessment & Plan (12/06/2024 2:15 PM EDT): He reportedly did not tolerate Zepbound due to increased anxiety, it is possible that diarrhea (? Related to Zepbound?) may have trigger some vasomotor changes and anxiety. I will DC Zepbound and start Ozempic 0.25 mg/week and follow-up in 4 to 6 weeks. We discussed about safety profile and side effects. Discussed re weight reduction options including exercise, life style modifications, diet. Recommended to decrease soda and sugary beverage consumption, increase protein intake with meals (at least 1 portion of protein with each meal) to assist with satiety, increase dietary fiber Recommended at least 150 min/week of moderate intensity exercise. Phentermine is contraindicated due to severe anxiety with panic attacks. Assessment & Plan (07/27/2024 3:03 PM EDT): [...] moderate intensity exercise. Will hold referral to sheep farmer until next appointment once anxiety is better [...] ID: Yaniv is a 37 y.o. White [place] choose not to disclose-identified cis- male (pronouns [...] intervention , [facility] and Patient to reach out to [facility] as needed Alcohol use disorder in remission 06/10/2023 Cocaine use disorder in remission 06/10/2023 Generalized anxiety disorder with panic attacks 06/10/2023 Overview (07/27/2024): >>OVERVIEW FOR ANXIETY WRITTEN ON 10/18/2023 9:42 AM BY LOYDA REED MA Last Addressed Date: 10/26/2022 Assessment & Plan (12/06/2024 2:20 PM EDT): Has recurrent panic attacks, but somewhat improved by taking medications regularly. He will continue Depakote olanzapine and Effexor same dose and follow-up with psychiatry (Dr. Montgomery) and psychotherapist (Clifton Motta). He is able to reach out for safety while at home with panic attacks, he has crisis numbers and he takes clonazepam as needed panic. Home care evaluation seems to be underway, he needs significant assistance with ADLs due to comorbidities including chronic lung disease, DJD of the spine and knees, severe anxiety with panic attacks, and chronic pancreatitis. Also being on home oxygen causes significant limitation for ADLs. He may not be able to commit to a full or even part-time job at this time due to the same conditions, he is applying to disability and he will follow-up with the [facility] and [facility]. His VNA assist with methadone administration, pharmaco education, monitor mental health status and and patient is doing his son medication management for now. Assessment & Plan (10/04/2024 3:46 PM EDT): [...] cannabis Advised to reach out to recovery operator at the methadone program, avoid using any other recreational substance or alcohol Assessment & Plan (07/27/2024 2:58 PM EDT): >>ASSESSMENT AND PLAN FOR ANXIETY WRITTEN ON 02/11/2024 4:04 PM BY ANDREA AMOR MD Seen by MH provider at [facility], will bring meds at next appt. He feels safe at home and is able to reach out for safety. Assessment & Plan (06/20/2024 1:14 PM EDT): Recently started seeing psychiatry and medications, advised to fu closely with them next week. Advised to cut down on vaping cannabis. Pt feels safe at home, advised to reach out to therapist or recovery operator (he will request one at methadone program). Advised against using recreational substances or alcohol. Pt will see therapist this afternoon. Routine health maintenance 05/29/2023 Assessment & Plan (05/29/2023 2:23 PM EST): -Pt brought labs done by his [facility] in 04/06/2023 hb 11.7,chem was [...] 248 Pt brought labs done by his [facility] in 04/06/2023 hb 11.7,chem was [...] PM EST): Doing well on Methadone at [facility], has take home bottles Advised to decrease use of THC Encounters * This document contains information received from the source organization and may not represent a complete record from that organization. Date Type Department Care Team Description 12/07/2024 Patient Outreach [facility] MEDICINE [address] [place] [phone] Andrea Amor MD 12/05/2024 12:00 PM EDT Office Visit [facility] MEDICINE [address] [place] [phone] Andrea Amor MD Generalized anxiety disorder with panic attacks (Primary Dx); Stress incontinence of urine; Morbid obesity ([facility]/HCC) 12/05/2024 Travel 12/04/2024 Travel 11/29/[address] [facility] WALK-IN CENTER [address] [place] [phone] Andrea Amor MD Chart Prep 11/24/2024 Patient Outreach [address] [phone] Andrea Amor MD 11/21/2024 Patient Outreach [address] [address] Andrea Amor MD 11/17/2024 Patient Outreach [address] [address] Andrea Amor MD Care Management (C3CM- Follow Up Call # 3) 11/15/[address] [facility] MEDICINE [address] [place] [phone] Andrea Amor MD IZ 11/09/2024 9:00 AM EDT Office Visit [facility] OPTOMETRY [address] [place] [phone] Clem, Ailyn, OD Myopia, bilateral (Primary Dx) 11/02/2024 Patient Outreach [facility] MEDICINE [address] [place] [address] [phone] Andrea Amor MD Care Coordination (C3 CM-[facility] Jennifer Burgess telephone call outreach) 10/31/[address] [facility] MEDICINE [address] [place] [phone] Cheryl Watts, NURSE [employer] Follow-up 10/31/2024 Patient Outreach [facility] MEDICINE [address] [place] [address] [phone] Andrea Amor MD Care Management (C3CM- follow up call # 2) 10/24/2024 Orders Only GENERIC EXTERNAL DATA DEPARTMENT Provider, Generic External Data 10/23/2024 11:00 AM EDT Office Visit [facility] ADULT DENTAL [address] [place] [phone] Trenton Wilkerson DDS Mild persistent asthma, unspecified whether complicated 10/23/[address] [facility] MEDICINE [address] [place] [address] [phone] Andrea Amor MD 10/22/2024 Travel 10/20/[address] [facility] MEDICINE [address] [place] [address] [phone] Andrea Amor MD Durable Medical Equipment (DME RX Pullup, Bathroom Grab Bars, Shower Bench(L&C)) 10/18/2024 Orders Only GENERIC EXTERNAL DATA DEPARTMENT Provider, Generic External Data 10/16/2024 Patient Outreach [facility] MEDICINE [address] [place] [phone] Andrea Amor MD Care Coordination (C3 -[facility] Jennifer Burgess telephone call outreach/) 10/15/2024 Orders Only GENERIC EXTERNAL DATA DEPARTMENT Provider, Generic External Data 10/11/[address] [facility] MEDICINE [address] [place] [address] [phone] Andrea Amor MD 10/02/2024 1:00 PM EDT Office Visit [facility] OPTOMETRY [address] [place] [address] Mariah Villaseñor, OD Myopia, bilateral (Primary Dx) 10/02/2024 Travel 09/29/2024 Patient Outreach [facility] MEDICINE [address] [place] [phone] Andrea Amor MD 09/29/2024 Patient Outreach [facility] [place] [address] Andrea Amor MD Care Coordination 09/28/2024 Patient Outreach [facility] [place] [address] Andrea Amor MD Care Management (C3- Follow up call # 1) 09/26/2024 Results Follow-Up [facility] [place] [address] Andrea Amor MD Sed Rate by Modified Westergren, Rheumatoid Factor, Drug Monitoring, Panel 1, Screen, Urine, Additional followed-up results: 2 09/26/2024 Results Follow-[place] [address] [place] [address] Andrea Amor MD TSH with Reflex to Free T4, Lipid Panel with Reflex to Direct LDL 09/22/[address] [phone] Andrea Amor MD Referral 09/22/[address] [phone] Andrea Amor MD Durable Medical Equipment 09/20/2024 3:30 PM EDT Office Visit [facility] ADULT DENTAL [address] [place] [phone] Trenton Wilkerson DDS Complete edentulism, unspecified edentulism class (Primary Dx) 09/19/2024 2:00 PM EDT Office Visit [address] [address] Andrea Amor MD Generalized anxiety disorder with panic attacks (Primary Dx); Severe episode of recurrent major depressive disorder, without psychotic features (CMS/HCC); Acute right-sided low back pain with right-sided sciatica; Upper GI bleeding 09/19/2024 Orders Only GENERIC EXTERNAL DATA DEPARTMENT Provider, Generic External Data 09/19/2024 Travel 09/18/2024 Patient Outreach [address] [place] [address] Andrea Amor MD 09/18/[address] [address] Andrea Amor MD chart prep 09/13/2024 Patient Outreach [address] [address] Andrea Amor MD 09/12/2024 Patient Outreach [address] [address] Andrea Amor MD Care Coordination 09/12/2024 Plan of Care Documentation [address] [phone] from Last 3 Months Immunizations Immunization Administration [...] with others, in a hotel, in a skilled nursing, living outside on the street, on a [...] the past 12 months, has t he CV [employer], gas, oil or water [employer] threatened to shut off services in your [...] Sign Reading Time Taken Comments Blood Pressure 150/90 12/05/2024 12:15 PM EDT Pulse 96 12/05/2024 12:15 PM EDT Temperature 36.4 C (97.6 F) 12/05/2024 12:15 PM EDT Respiratory Rate 14 12/05/2024 12:15 PM EDT Oxygen Saturation 94% 12/05/2024 12:15 PM EDT Inhaled Oxygen Concentration - - Weight 144 kg (317 lb 9.6 oz) 12/05/2024 12:15 P M EDT Height 170.2 cm (5' 7 ) 12/05/2024 12:15 PM EDT Body Mass Index 49.74 12/05/2024 12:15 PM EDT Plan of Treatment Upcoming Encounters Date Type Department Care Team (Late st Contact Info) Description 02/07/2025 11:30 AM EST Office Visit [facility] MEDICINE [address] [place], [place] [phone] Andrea Amor MD [address] [place] [address] Health Maintenance Due Date Last Done Comments Dental Prophylaxis 1985 Family Planning (PISQ) 06/23/2002 HPV Vaccines (1 - Male 3-dose series) 06/23/2002 Pneumococcal Vaccine: Pediatrics (0 to 5 Years) and At-Risk Patients (6 to 49) Years (1 of 2 - PCV) 06/23/2006 Dental X-Ray: Bitewings 02/21/2015 02/20/2014 Dental Oral Exam 10/11/2024 04/12/2024, 02/20/2014 COVID-19 Vaccine (3 - season) 2024 09/11/2020, 07/30/2020 Influenza Vaccine (#1) 2024 , 01/28/2022, 07/14/2021 Depression Monitoring 03/14/2025 09/12/2024, 025 Diabetes: Hemoglobin A1C 06/20/2025 06/20/2024, 030 08/2023 SDOH Screening 09/12/2025 09/12/2024 Alcohol/Substance Use Screening 12/05/2025 12/05/2024 Disability Screening 12/05/2025 12/05/2024 Tobacco Screening 12/05/2025 12/05/2024 Dental X-Ray: Full Mouth 04/13/2027 025, 12/01/2023, 09/25/2022, Additional history exists Lipid Panel 09/19/2029 09/19/2024, 0308/2023, 02/01/2023 DTaP/Tdap/Td Vaccines (9 - Td or [...] Bilirubin, Total 0.3 0.0 - 1.0 mg/dL [facility] Bilirubin, Direct 0.1 0.0 - 0.5 mg/dL [facility] Aspartate Amino Transferase 31 5 - 37 U/L [facility] Alanine Aminotransferase 29 0 - 40 U/L [facility] Total Protein 7.6 6.5 - 8.0 g/dL [facility] Albumin Level 3.7 3.5 - 5.0 g/dL [facility] Alkaline Phosphatase 121(H) 39 - 117 U/L [facility] 10/24/2024 10:3 2 PM EDT 10/24/2024 10:46 PM EDT us Generic External Data Provider LAB BLOOD ORDERAB LES Final Result [facility] [address] [place] [phone] * (ABNORMAL) Basic Metabolic Panel (10/24/2024 10:32 PM EDT) Only the most recent of2 resultswithin the time period is included. Sodium 139 135 - 145 mmol/L [facility] Potassium 4.5 3.3 - 5.1 mmol/L [facility] Chloride 100 96 - 108 mmol/L [facility] Carbon Dioxide 31(H) 22 - 29 mmol/L [facility] Anion Gap 13 12 - 20 [facility] Urea Nitrogen (BUN) 10 9 - 16 mg/dL [facility] Creatinine, Serum 0.82 0.5 - 1.4 mg/dL [facility] Creatinine Clr Calc Pharmacy 167.8 [facility] Comment:eGFR (calculated fro m the MDRD study equation) and eCrCl(calculated from the Cockcroft-Gault equation) are based ondifferent parameters and may not yield comparable results.If eCrCl result is absurd, please check patient'sheight/weight. Estimated Glomerular Filt Rate >60 [facility] Comment:Chronic Kidney Disea se: Estimated GFR < 60 mL/min/1.06o1Wvowdi Kidney Disease: Estimated GFR < 15 mL/min/1.73m2 Glucose 107 60 - 115 mg/dL [facility] Calcium 8.7 8.4 - 10.2 mg/dL [facility] 10/24/2024 10:3 2 PM EDT 10/24/2024 10:46 PM EDT us Generic External Data Provider LAB BLOOD ORDERAB LES Final Result [facility] [address] [place], [place] [phone] * (ABNORMAL) CBC auto differential (10/24/2024 9:41 PM EDT) Only the most recent of2 resultswithin the time period is included. White Blood Count 14.9(H) 4.8 - 10.8 X10*3/uL [facility] Red Blood Count 4.57(L) 4.60 - 5.80 X10*6/uL [facility] Hemoglobin 12.1(L) 14.0 - 18.0 g/dl [facility] Hematocrit 38.2(L) 42.0 - 52.0 % [facility] Mean Corpuscular Volume 83.6 80.0 - 98.0 fL [facility] Mean Corpuscular Hemoglobin 26.5(L) 27.0 - 33.0 pg [facility] Mean Corpuscular HGB Conc 31.7 31.0 - 36.0 g/dl [facility] Red Cell Distribution Width 16.0 11.0 - 16.0 % [facility] Platelet Count 286 160 - 400 X10*3/uL [facility] Mean Platelet Volume 8.4(L) 9.4 - 12.4 fL [facility] Neutrophils Percent Auto 78.1(H) 45 - 73 % [facility] Imm Gran Pct Auto 0.8(H) 0.0 - 0.4 % [facility] Lymphocytes Percent Auto 9.1(L) 20 - 40 % [facility] Monocytes Percent Auto 8.2 2 - 11 % [facility] Eosinophils Percent Auto 3.5 0 - 4 % [facility] Basophils Percent Auto 0.3 0 - 2 % [facility] NRBC Pct Auto 0.0 0.0 - 0.2 /100WBC [facility] Neutrophils Absolute Auto 11.6(H) 2.0 - 8.3 x10*3/uL [facility] Imm Gran Abs Auto 0.12(H) 0.00 - 0.03 X10*3/uL [facility] Lymphocytes Absolute Auto 1.4 1.2 - 4.9 X10*3/uL [facility] Monocytes Absolute Auto 1.2 0.1 - 1.2 X10*3/uL [facility] Eosinophils Absolute Auto 0.5(H) 0.0 - 0.4 X10*3/uL [facility] Basophils Absolute Auto 0.1 0.0 - 0.2 X10*3/uL [facility] NRBC Abs Auto 0.000 0.0 - 0.012 X10*3/uL [facility] 10/24/2024 9:41 PM EDT 10/24/2024 9:48 PM EDT us Generic External Data Provider LAB BLOOD ORDERAB LES Final Result Performing Organization Address [facility] de Phone Number [facility] [address] [place] [phone] * Ethanol (10/18/2024 11:28 AM EDT) ETHANOL (MG/DL) IN SER/PLAS <10 mg/dL [facility] Comment:Serum/plasma ethanol results are to be used formedical/treatment purposes only. 10/18/2024 11:2 8 AM EDT 10/18/2024 11:35 AM EDT us Generic External Data Provider LAB BLOOD ORDERAB LES Final Result Performing Organization Address [facility] Phone Number [facility] [address] [place] [phone] * Magnesium (10/18/2024 11:28 AM EDT) Magnesium 2.0 1.6 - 2.6 mg/dL [facility] 10/18/2024 11:2 8 AM EDT 10/18/2024 11:35 AM EDT us Generic External Data Provider LAB BLOOD ORDERAB LES Final Result Performing Organization Address [facility] de Phone Number [facility] [address] [place] [phone] * Lipase (10/18/2024 11:28 AM EDT) Lipase 14 8 - 78 U/L [facility] 10/18/2024 11:2 8 AM EDT 10/18/2024 11:35 AM EDT us Generic External Data Provider LAB BLOOD ORDERAB LES Final Result Performing Organization Address [facility] de Phone Number [facility] [address] [place] [phone] * (ABNORMAL) Comprehensive Metabolic Panel (10/18/2024 11:28 AM EDT) Sodium 135 135 - 145 mmol/L [facility] Potassium 4.5 3.3 - 5.1 mmol/L [facility] Chloride 99 96 - 108 mmol/L [facility] Carbon Dioxide 28 22 - 29 mmol/L [facility] Anion Gap 13 12 - 20 [facility] Urea Nitrogen (BUN) 15 9 - 16 mg/dL [facility] Creatinine, Serum 0.89 0.5 - 1.4 mg/dL [facility] Creatinine Clr Calc Pharmacy 139.9 [facility] Comment:eGFR (calculated fro m the MDRD study equation) and eCrCl(calculated from the Cockcroft-Gault equation) are based ondifferent parameters and may not yield comparable results.If eCrCl result is absurd, please check patient'sheight/weight. Estimated Glomerular Filt Rate >60 [facility] Comment:Chronic Kidney Disea se: Estimated GFR < 60 mL/min/1.07f7Jwsdlo Kidney Disease: Estimated GFR < 15 mL/min/1.73m2 Glucose 107 60 - 115 mg/dL [facility] Calcium 8.8 8.4 - 10.2 mg/dL [facility] Bilirubin, Total 0.5 0.0 - 1.0 mg/dL [facility] Aspartate Amino Transferase 33 5 - 37 U/L [facility] Alanine Aminotransferase 38 0 - 40 U/L [facility] Total Protein 8.2(H) 6.5 - 8.0 g/dL [facility] Albumin Level 4.1 3.5 - 5.0 g/dL [facility] Alkaline Phosphatase 143(H) 39 - 117 U/L [facility] 10/18/2024 11:2 8 AM EDT 10/18/2024 11:35 AM EDT us Generic External Data Provider LAB BLOOD ORDERAB LES Final Result [facility] [address] [place] [address] [phone] * XR Chest 2 Views (10/15/2024 11:55 AM EDT) Anatomical Region Laterality Modality Chest Radiographic Elizabet ging 10/15/2024 11:5 5 AM EDT Narrative 10/15/2024 11:57 AM EDT [address] [address] XRay Report Signed Patient: Yaniv Gutierrez MR#: [id number] : 1985 Acct:[id number] Age/Sex: 39 / M ADM Date: 10/15/24 Loc: .ED Attending Dr: Ordering Physician: Layo Serrano DO Date of Service: 10/15/24 Procedure(s): XR chest 2V Accession Number(s): [id number] cc: Andrea Amor MD; Layo Serrano DO [...] 10/15/24 1156 DD/ 1155 TD/TT: 10/15/24 1155 Orthopedic Podiatrist: Procedure Note Donotuseinterpreter, Image - 10/15/[address] [address] XRay Report Signed Patient: Yaniv Gutierrez GMR#: [id number] : 1985Acct:[id number] Age/Sex: 39 / MADM Date: 10/15/24 Loc: HO.ED Attending Dr: Ordering Physician: Layo Serrano DO Date of Service: 10/15/24 Procedure(s): XR chest 2V Accession Number(s): [id number] cc: Andrea Amor MD; Layo Serrano DO [...] 10/15/24 1156 DD/ 1155 TD/TT: 10/15/24 1155 Orthopedic Podiatrist: [facility] External Provider IMG XR PROCEDURES Final Result * (ABNORMAL) Drug Monitoring, Panel 1, Screen, Urine (10/15/2024 11:01 AM EDT) Only the most recent of2 resultswithin the time period is included. Opiate Screen Urine Not Detected Not Detect [facility] Comment:Opiate cut-off is 30 0 ng/mL.Positive results are unconfirmed and should not be used fornon-medical purposes. Barbiturates, Urine Not Detected Not Detect [facility] Comment:Barbiturate cut-off is 200 ng/mL.Positive results are unconfirmed and should not be used fornon-medical purposes. Phencyclidine Screen Urine Not Detected Not Detect [facility] Comment:Phencyclidine cut-of f is 25 ng/mL.Positive results are unconfirmed and should not be used fornon-medical purposes. Amphetamine Screen Urine Not Detected Not Detect [facility] Comment:Amphetamine cut-off is 1000 ng/mL.Positive results are unconfirmed and should not be used fornon-medical purposes. Benzodiazepines Screen Urine Not Detected Not Detect [facility] Comment:Benzodiazepine cut-o ff is 200 ng/mL.Positive results are unconfirmed and should not be used fornon-medical purposes. Cocaine Screen Urine Not Detected Not Detect [facility] Comment:Cocaine cut-off is 3 00 ng/mL.Positive results are unconfirmed and should not be used fornon-medical purposes. Cannabinoid Screen Urine POSITIVE(A) Not Detect [facility] Comment:Cannabinoid cut-off is 50 ng/mL.Positive results are unconfirmed and should not be used fornon-medical purposes. Methadone Screen, Urine Positive(A) Not Detect ng/mL [facility] Comment:Methadone cut-off is 300 ng/mL.Positive results are unconfirmed and should not be used fornon-medical purposes. FENTANYL URINE Not Detected Not Detect [facility] Comment:Fentanyl cut-off is 1 ng/mL.Positive results are unconfirmed and should not be used fornon-medical purposes. Oxycodone Urine Screen Not Detected Not Detect ng/mL [facility] Comment:Oxycodone cut-off is 100 ng/mL.Positive results are unconfirmed and should not be used fornon-medical purposes. Buprenorphine Screen Not Detected Not Detect ng/mL [facility] Comment:Buprenorphine cut-of f is 5 ng/mL.Positive results are unconfirmed and should not be used fornon-medical purposes. 10/15/2024 11:0 1 AM EDT 10/15/2024 11:06 AM EDT us Generic External Data Provider LAB URINE ORDERAB LES Final Result [facility] [address] [place] [phone] * Culture, Urine, Routine (10/15/2024 11:01 AM EDT) Urine Urine specimen obtained by clean catch procedure / Unknown 10/15/2024 11:01 AM EDT 10/15/2024 11:06 AM EDT Comment:UACC Narrative [facility] - 10/16/2024 12:22 PM EDT Urine Culture No growth. Specimen Source: Urine clean catch Generic External Data Provider LAB MICROBIOLOGY - GENERAL ORDERABLES Final Result Performing Organization Address [facility] de Phone Number [facility] [address] [place] [phone] * (ABNORMAL) CRP, HIGH SENSITIVITY (09/19/2024 3:15 PM EDT) CRP, High Sensitivity 10.1(A) mg/L [facility] Comment: Reference RangeOptimal <1.0Sara PS et [...] retesting, may be associated with infection and inflammation.Manuel TA, Faiza GA, Kerwin RW, et al. Markersof inflammation and cardiovascular disease:application to clinical and public health practice:A statement for healthcare professionals from theCenters for Disease Control and Prevention and theAmerican Heart Association. Circulation 2003; 107(3):499-511.THIS TEST WAS PERFORMED AT:[employer] [place] [phone] AMAYA MD 09/19/2024 3:15 PM EDT 09/19/2024 4:07 PM EDT Generic External Data Provider LAB BLOOD ORDERAB LES Final Result Performing Organization Address [facility]/ZIP Co de Phone Number [facility] [address] [place] [phone] * TSH with Reflex to Free T4 (09/19/2024 3:15 PM EDT) TSH reflex Free T4 1.41 0.32 - 4.0 uIU/mL [facility] Blood 09/19/2024 3:15 PM EDT 09/19/2024 4:08 PM EDT Andrea Amor MD LAB BLOOD ORDERABLES Fin al Result Performing Organization Address [facility] de Phone Number [facility] [address] [place] [phone] * (ABNORMAL) Lipid Panel with Reflex to Direct LDL (09/19/2024 3:15 PM EDT) Triglycerides 304(H) <150 mg/dL [facility] Comment:Desirable Triglyceri de: less than 150 mg/dLBorderline High Triglyceride 150-199 mg/dLHigh Triglyceride: 200-499 mg/dLVery High Triglyceride: greater than or equal to 5OO mg/dL Cholesterol 184 <200 mg/dL [facility] Comment:Desirable Cholestero l: less than 200 mg/dLBorderline High Cholesterol: 200-239 mg/dLHigh Cholesterol: greater than 239 mg/dL LDL Cholesterol Calculated 81 <100 mg/dL [facility] Comment:Desirable LDL: less than 100 mg/dLNear Optimal/Above Optimal LDL: 110- 129 mg/dLBorderline High LDL: 130-159 mg/dLHigh LDL: 160-189 mg/dLVery High LDL: greater than or equal to 190 mg/dL HDL Cholesterol 43 >40 mg/dL [facility] Comment:Desirable HDL: great er than 40 mg/dL Note: This HDL assay may give artificially low results in patients with liver disease. Blood 09/19/2024 3:15 PM EDT 09/19/2024 4:08 PM EDT Andrea Amor MD LAB BLOOD ORDERABLES Fin al Result Performing Organization Address [facility] [[email or web address]] Co de Phone Number [facility] [address] [place] [phone] * (ABNORMAL) Sed Rate by Modified Westergren (09/19/2024 3:15 PM EDT) Pathologist [facility] Erythrocyte Sedimentation Rate 38(H) 0 - 15 MM/HR [facility] Comment:Patients with polycy themia and many hemoglobin abnormalitiesmay have depressed sed rates whereas patients with anemiamay have elevated sed rates. 09/19/2024 3:15 PM EDT 09/19/2024 4:08 PM EDT Generic External Data Provider LAB BLOOD ORDERAB LES Final Result Performing Organization Address [facility]/ZIP Co de Phone Number [facility] [address] [place] [phone] * Rheumatoid Factor (09/19/2024 3:15 PM EDT) [facility] Rheumatoid Factor <13.0 <15.0 IU/mL [facility] 09/19/2024 3:15 PM EDT 09/19/2024 4:08 PM EDT PollitoIngles External Data Provider LAB BLOOD ORDERAB LES Final Result Performing Organization Address [facility]/ZIP Co de Phone Number [facility] [address] [place] [phone] * ANDREA Screen,IFA, with Reflex to Titer and Pattern (09/19/2024 3:15 PM EDT) Pathologist [facility] Anti Nuclear Antibody Screen NEGATIVE NEGATIVE [facility] Comment:ANDREA IFA is a first l [...] clinicallysuspected inflammatory myopathies.AC-0: NegativeInternational Consensus on ANDREA Patterns(https://doi.org/10.1515/bgei-2839-4202)For additional information, please refer tohttp://education.[employer]/faq/LPC554(This link is being provided for informational/educational purposes only.)THIS TEST WAS PERFORMED AT:[facility] [place] [id number] AMAYA MD ANDREA Titer TNP [facility] ANDREA Pattern TNP [facility] ANDREA TITER 2 (REF LAB) [facility] AND[facility]A Pattern 2 TNP [facility] ANDREA TITER 3 [facility] ANDREA PATTERN 3 [facility] 09/19/2024 3:15 PM EDT 09/19/2024 4:07 PM EDT Generic External Data Provider LAB BLOOD ORDERAB LES Final Result [facility] [address] [place] [phone] * POCT HGB A1C (06/20/2024 12:05 PM EDT) Hemoglobin A1C 6.0 4.0 - 6.0 % QC Media Lot # [id number] Lot# Expiration Date , Blood 06/20/2024 12:0 5 PM EDT us Andrea Amor MD POINT OF CARE TEST ENTER /EDIT ORDERABLES Final Result from Last 3 Months or Most Recently Relevant to Health Maintenance [facility] ST[place] AD[place] Care Teams Vegetable Tier Relationship Specialty Start Date End Date Andrea Amor MD [address] [place] [address] PCP - General Internal Medicine 12/07/23 Carlos Muñiz, ROXANN [address] [place] [address] Registered Nurse Family Medicine 09/06/24 Jennifer Burgess 09/07/24
--- OUTSIDE RECORDS SUMMARY | 2024-12-11 18:30 | XMS_ITS ---
Author Organization [employer] Address [address] [place] [address] 7t [place] [address] Care Team Providers Care Control Equipment Electrician Name Role Phone Lesia Tran MD Primary Care Provider + Carlos Muñiz RN Unavailable [phone] Jennifer Burgess Unavailable CM Complex Status:Enrolled (Active) Start date:09/06/2024 Enrollment date:09/07/2024 Enrollment reason:Other Overview Community Referral- Contact[place] [facility] [place] for patient with inpatient admission attributed to HHCthat requires assistance from CM program. Please see forwarded email for information and coordination of care with inpatient SW, Karen Burt [place] [facility]. He has recently been put on continuous O2 2L, hehas trouble ambulating and could also use nutrition education as well, Case Team Name Relationship Phone Carlos Muñiz RN(Responsible Staff) Registered Manny tanner [phone] Continued Care and Services Coordination
--- OUTSIDE RECORDS SUMMARY | 2024-12-11 18:30 | XMS_ITS | Clinical Summary ---
Author Organization [facility] Address [address] [place] [address] Phone Care Team Providers Care Electrical Linesworker Name Role Phone Az Terrell Primary Care Provider [phone] Immunizations Immunization Administration Dates Next Due DTP [...] Vaccines (1 - 3-dose SCDM series) 06/23/2014 Influenza Vaccines (#1) 2024 COVID-19 Vaccine ( season) 2024 HIB Vaccines Completed 07/03/1989 IPV Vaccines [...] age to complete this topic Care Teams Electrical Linesworker Relationship Specialty Start Date End Date Az Terrell [address] [place] [phone] PCP - General 11/13/16
--- OUTSIDE RECORDS SUMMARY | 2024-12-11 18:30 | XMS_ITS | Encounter Summary ---
Author Organization [employer] Address [address] [place] [address] [address]t [place] [address] Care Team Providers Care Arch Cushion Skiving Machine Operator Name Role Phone Lesia Tran MD Primary Care Provider + Carlos Muñiz RN Unavailable [phone] Carlos Muñiz RN Unavailable [phone] Jennifer Burgess Unavailable Reason for Visit * Reason Onset Date Comments Nurse Triage 06/16/2024 Encounter Details Date Type Department Care Team (Late st Contact Info) Description 06/16/2024 Telephone [facility] MEDICINE [address] [place], [place] [phone] Lesia Tran MD [address] [place], [place] [phone] Nurse Triage Social History Tobacco Use Types [...] the past 12 months, has t he [employer], gas, oil or water [employer] threatened to shut off services in your [...] appt from yesterday as he was in [facility] ED ( note requested) Patient with reported [...] is in agreement to reach out to [facility] and Crisis as needed. Has concerns [...] had contact with Care Coordinators here at [facility] and is requesting additional help. Patient agrees to have [facility] reach out to him with worsening symptoms. [facility] sent. Disposition reviewed and patient in [...] - 06/16/2024 10:29 AM EDT Please obtain [facility] ED note from visit on 06/15/24. Patient scheduled with PCP on Wednesday06/20/24. * Telephone Encounter - Kenisha Mtz - 06/16/2024 9:52 AM EDT Symptoms: Abdominal Pain - Male, Abdominal Swelling Outcome: Schedule an urgent appointment (within 4 hours) or talk to a nurse or provider soon Reason: Started within the past 3 days The caller accepted this outcome. [phone] documented in this encounter Plan of Treatment Upcoming Encounters Date Type Department Care Team (Late st Contact Info) Description 02/07/2025 11:30 AM EST Office Visit [facility] MED[facility]INE [address] [place] [address] Lesia Tran MD [address] [place] [address] documented as of this encounter Visit Diagnoses Not on filedocumented in this encounter Additional Health Concerns Assessment Noted Time PHQ-9 Depression Total Score: 21 024 2:23 PM EST documented as of this encounter Care Teams Arch Cushion Skiving Machine Operator Relationship Specialty Start Date End Date Lesia Tran MD [address] [place] [address] PCP - General Internal Medicine 12/07/23 Carlos Muñiz RN [address] [place] [address] Registered Nurse Family Medicine 09/05/24 09/05/24 Carlos Muiñz RN [address] [place] [address] Registered Nurse Family Medicine 09/06/24 Jennifer Burgess 09/07/24 documented as of this encounter
--- OUTSIDE RECORDS SUMMARY | 2024-12-11 18:30 | XMS_ITS | Encounter Summary ---
Author Organization [employer] Address [address] [place] [address] 7t [place] [address] Care Team Providers Care Torch Operator Name Role Phone Neetu Bah Primary Care Provider Roma BenderP Primary Care Provider [phone] Neetu Bah Unavailable [phone] Lesia Tran MD Primary Care Provider + Carlos Muñiz RN Unavailable [phone] Carlos Muñiz RN Unavailable [phone] Jennifer Burgess Unavailable Encounter Details Date Type Department Care Team (Late st Contact Info) Description 09/29/2022 Abstract [facility] ADULT DENTAL [address] [place] [address] Trenton Wilkerson DDS [address] [place] [address] Social History Tobacco Use Types Packs/Day Years [...] Description 02/07/2025 11:30 AM EST Office Visit [facility] MEDICINE [address] [place] [address] Lesia Tran MD [address] [place] [address] documented as of this encounter Visit Diagnoses Not on filedocumented in this encounter Care Teams Torch Operator Relationship Specialty Start Date End Date Neetu Bah AGNP [address] [place] [phone] PCP - General Family Medicine 11/28/20 01/13/23 Roma Bender FNP [address] [place] [address] PCP - General Family Medicine 01/14/23 12/06/23 Lesia Tran MD [address] [place] [address] PCP - General Internal Medicine 12/07/23 Neetu Bah AGNP [address] [place] [phone] Family Medicine 01/14/23 09/02/23 Carlos Muñiz, RN [address] [place] [address] Registered Nurse Family Medicine 09/05/24 09/05/24 Carlos Muñiz, RN [address] [place] [address] Registered Nurse Family Medicine 09/06/24 Jennifer Burgess 09/07/24 documented as of this encounter
--- OUTSIDE RECORDS SUMMARY | 2024-12-11 18:30 | XMS_ITS | Encounter Summary ---
Author Organization [employer] Address [address] [place] [address] 7t [place] [address] Care Team Providers Care Customer Relations Consultant Name Role Phone Lesia Tran MD Primary Care Provider + Carlos Muñiz RN Unavailable [phone] Carlos Muñiz RN Unavailable [phone] Jennifer Burgess Unavailable Reason for Visit * Reason Onset Date Comments Med Refill 05/15/2024 Encounter Details Date Type Department Care Team (Late st Contact Info) Description 05/15/2024 Telephone [facility] MEDICINE [address] [place], [place] [phone] Lesia Tran MD [address] [place] [address] Med Refill Social History Tobacco Use Types [...] 9:47 AM EST Medication was sent to [id number] on 05/01/24 with 1 refill. * Telephone Encounter - Kenisha Mtz - 05/15/2024 9:43 AM EST TC from pt requesting medication refill. Medications needing refill : hydrOXYzine pamoate (Vistaril) 25 MG capsule To be sent to: [facility]/pharmacy #[id number] - [place] [address] documented in this encounter Plan of Treatment Upcoming Encounters Date Type Department Care Team (Late st Contact Info) Description 02/07/2025 11:30 AM EST Office Visit [facility] MEDICINE [address] [place] [address] Lesia Tran MD [address] [place] [address] documented as of this encounter Visit Diagnoses Not on filedocumented in this encounter Additional Health Concerns Assessment Noted Time PHQ-9 Depression Total Score: 21 024 2:23 PM EST documented as of this encounter Care Teams Customer Relations Consultant Relationship Specialty Start Date End Date Lesia Tran MD [address] [place] [address] PCP - General Internal Medicine 12/07/23 Carlos Muñiz, RN [address] [place] [address] Registered Nurse Family Medicine 09/05/24 09/05/24 Carlos Muñiz RN [address] [place] [address] Registered Nurse Family Medicine 09/06/24 Jennifer Burgess 09/07/24 documented as of this encounter
--- OUTSIDE RECORDS SUMMARY | 2024-12-11 18:30 | XMS_ITS | Encounter Summary ---
Author Organization [employer] Address [address] [place] [address] [address]t [place] [address] Care Team Providers Care Environmental Protection Officer Name Role Phone Neetu Bah Primary Care Provider Roma BenderP Primary Care Provider [phone] Neetu Bah Unavailable [phone] Lesia Tran MD Primary Care Provider + Carlos Muñiz RN Unavailable [phone] Carlos Muñiz RN Unavailable [phone] Jennifer Burgess Unavailable Reason for Visit * Reason Onset Date Comments New Patient 11/18/2022 Encounter Details Date Type Department Care Team (Late st Contact Info) Description 11/18/2022 Telephone [facility] [address] [place], [place] [phone] Koby Holland MD [address] [place], [place] [phone] New Patient Social History Tobacco Use Types [...] been transfer over to wait 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 EFFECTIVE SINCE 11/24/2022 * Telephone Encounter - Lisa Lopes - 11/18/2022 10:33 AM EDT Tc to Pt , informed that we do take insurance, but must call [facility] to change location. Once done, to please call back to facility at [phone] documented in this encounter Plan of Treatment Upcoming Encounters Date Type Department Care Team (Late st Contact Info) Description 02/07/2025 11:30 AM EST Office Visit [facility] [address] [place] [address] Lesia Tran MD [address] [place] [address] documented as of this encounter Visit Diagnoses Not on filedocumented in this encounter Care Teams Environmental Protection Officer Relationship Specialty Start Date End Date Neetu Bah AGNP [address] [place] [phone] PCP - General Family Medicine 11/28/20 01/13/23 Roma Bender FNP [address] [place] [address] PCP - General Family Medicine 01/14/23 12/06/23 Lesia Tran MD [address] [place] [address] PCP - General Internal Medicine 12/07/23 Neetu aBh AGNP [address] [place] [phone] Family Medicine 01/14/23 09/02/23 Carlos Muñiz, RN [address] [place] [address] Registered Nurse Family Medicine 09/05/24 09/05/24 Carlos Muñiz RN [address] [place] [address] Registered Nurse Family Medicine 09/06/24 Jennifer Burgess 09/07/24 documented as of this encounter
--- OUTSIDE RECORDS SUMMARY | 2024-12-11 18:30 | XMS_ITS | Encounter Summary ---
Author Organization [employer] Address [address] [place] [address] 7t [place] [address] Care Team Providers Care Utility Arborist Name Role Phone Lesia Tran MD Primary Care Provider + Carlos Muñiz RN Unavailable [phone] Carlos Muñiz RN Unavailable [phone] Jennifer Burgess Unavailable Reason for Visit * Reason Onset Date Comments rs appt/disconnected call 06/29/2024 Encounter Details Date Type Department Care Team (Late st Contact Info) Description 06/29/2024 Telephone [facility] ADULT DENTAL [address] [place] [address] Trenton Wilkerson DDS [address] [place] [address] rs appt/disconnected call Social History Tobacco Use [...] I was on the line with front of house manager [facility] the patient disconnected the call.. The [...] Description 02/07/2025 11:30 AM EST Office Visit [facility] MEDICINE [address] [place] [address] Lesia Tran MD [address] [place] [address] documented as of this encounter Visit Diagnoses Not on filedocumented in this encounter Additional Health Concerns Assessment Noted Time PHQ-9 Depression Total Score: 21 06/09/ 024 2:23 PM EST documented as of this encounter Care Teams Utility Arborist Relationship Specialty Start Date End Date Lesia Tran MD [address] [place] [address] PCP - General Internal Medicine 12/07/23 Carlos Muñiz, RN [address] [place] [address] Registered Nurse Family Medicine 09/05/24 09/05/24 Carlos Muñiz, RN [address] [place] [address] Registered Nurse Family Medicine 09/06/24 Jennifer Burgess 09/07/24 documented as of this encounter
--- OUTSIDE RECORDS SUMMARY | 2024-12-11 18:30 | XMS_ITS | Encounter Summary ---
Author Organization [employer] Address [address] [place] [address] 7t [place] [address] Care Team Providers Care Saddle Mechanic Name Role Phone Neetu Bah Primary Care Provider Roma BenderP Primary Care Provider [phone] Neetu Bah Unavailable [phone] Lesia Tran MD Primary Care Provider + Carlos Muñiz RN Unavailable [phone] Carlos Muñiz RN Unavailable [phone] Jennifer Burgess Unavailable Encounter Details Date Type Department Care Team (Late st Contact Info) Description 09/29/2022 Abstract [facility] ADULT DENTAL [address] [place] [address] Trenton Wilkerson DDS [address] [place] [address] Social History Tobacco Use Types Packs/Day Years [...] Description 02/07/2025 11:30 AM EST Office Visit [facility] MEDICINE [address] [place] [address] Lesia Tran MD [address] [place] [address] documented as of this encounter Visit Diagnoses Not on filedocumented in this encounter Care Teams Saddle Mechanic Relationship Specialty Start Date End Date Neetu Bah AGNP [address] [place] [phone] PCP - General Family Medicine 11/28/20 01/13/23 Roma Bender FNP [address] [place] [address] PCP - General Family Medicine 01/14/23 12/06/23 Lesia Tran MD [address] [place] [address] PCP - General Internal Medicine 12/07/23 Neetu Bah AGNP [address] [place] [phone] Family Medicine 01/14/23 09/02/23 Carlos Muñiz, RN [address] [place] [address] Registered Nurse Family Medicine 09/05/24 09/05/24 Carlos Muñiz, RN [address] [place] [address] Registered Nurse Family Medicine 09/06/24 Jennifer Burgess 09/07/24 documented as of this encounter
--- OUTSIDE RECORDS SUMMARY | 2024-12-11 18:30 | XMS_ITS ---
Author Organization [employer] Address [address] [place] [address] 7t [place] [address] Care Team Providers Care Resaw Operator Name Role Phone Lesia Tran MD Primary Care Provider + Carlos Muñiz RN Unavailable [phone] Jennifer Burgess Unavailable CHW Complex Status:Enrolled (Active) Start date:09/07/2024 Enrollment date:09/12/2024 Overview Community Referral- Contacted by [facility] contact for patient with inpatient admission attributed to HHCthat requires assistance from CM program. Please see forwarded email for information and coordination of care with inpatient SW, Karen Burt at [facility]. He has recently been put on continuous O2 2L, hehas trouble ambulating and could also use nutrition education as well, Case Team Name Relationship Phone Jennifer Burgess(Responsible Staff) Continued Care and Services Coordination
--- OUTSIDE RECORDS SUMMARY | 2024-12-11 18:30 | XMS_ITS | Encounter Summary ---
Author Organization [employer] Address [address] [facility] 7t [place] [address] Care Team Providers Care Brand Engineer Name Role Phone Lesia Tran MD Primary Care Provider + Carlos Muñiz RN Unavailable [phone] Jennifer Burgess Unavailable Encounter Details Date Type Department Care Team (Late st Contact Info) Description 12/07/2024 Patient Outreach [facility] MEDICINE [address] [place] [address] Lesia Tran MD [address] [place] [address] Social History Tobacco Use Types Packs/Day Years [...] with others, in a hotel, in a retirement, living outside on the street, on a [...] Description 02/07/2025 11:30 AM EST Office Visit [facility] MEDICINE [address] [place] [address] Lesia Tran MD [address] [place] [address] documented as of this encounter Visit Diagnoses Not on filedocumented in this encounter Additional Health Concerns Assessment Noted Time PHQ-9 Depression Total Score: 22 025 11:24 AM EDT documented as of this encounter Care Teams Brand Engineer Relationship Specialty Start Date End Date Lesia Tran MD [address] [place] [address] PCP - General Internal Medicine 12/07/23 Carlos Muñiz, ROXANN [address] [place] [address] Registered Nurse Family Medicine 09/06/24 Jennifer Burgess 09/07/24 documented as of this encounter
--- OUTSIDE RECORDS SUMMARY | 2024-12-11 18:30 | XMS_ITS | Encounter Summary ---
Author Organization [employer] Address [address] [place] [address] 7t [place] [address] Care Team Providers Care Broomcorn Scraper Name Role Phone Lesia Tran MD Primary Care Provider + Carlos Muñiz RN Unavailable [phone] Carlos Muñiz RN Unavailable [phone] Jennifer Bugress Unavailable Reason for Visit * Reason Onset Date Comments medication 02/02/2024 Encounter Details Date Type Department Care Team (Late st Contact Info) Description 02/02/2024 Telephone [facility] ADULT DENTAL [address] [place] [address] Trenton Wilkerson DDS [address] [place] [address] medication Social History Tobacco Use Types Packs/Day [...] Description 02/07/2025 11:30 AM EST Office Visit [facility] MEDICINE [address] [place] [address] Lesia Tran MD [address] [place] [address] documented as of this encounter Visit Diagnoses Not on filedocumented in this encounter Additional Health Concerns Assessment Noted Time PHQ-9 Depression Total Score: 21 06/09/2 024 2:23 PM EST documented as of this encounter Care Teams Broomcorn Scraper Relationship Specialty Start Date End Date Lesia Tran MD 230 [place] [address] PCP - General Internal Medicine 12/07/23 Carlos Muñiz, ROXANN [address] [place] [address] Registered Nurse Family Medicine 09/05/24 09/05/24 Carlos Muñiz, ROXANN [address] [place] [address] Registered Nurse Family Medicine 09/06/24 Jennifer Burgess 09/07/24 documented as of this encounter
--- OUTSIDE RECORDS SUMMARY | 2024-12-11 18:30 | XMS_ITS | Encounter Summary ---
Author Organization [employer] Address 75 [facility] 7t [place] [address] Care Team Providers Care Garbage Collector Supervisor Name Role Phone Roma Bender Primary Care Provider [phone] Neetu Bah Unavailable Lesia Tran MD Primary Care Provider + Carlos Muñiz RN Unavailable [phone] Carlos Muñiz RN Unavailable [phone] Jennifer Burgess Unavailable Encounter Details Date Type Department Care Team (Late st Contact Info) Description 02/19/2023 Orders Only [facility] CHC MED & PEDS [address] [place] [address] Roma Bender FNP [address] [place] [address] Other acute gastritis, presence of bleeding unspecified [...] Description 02/07/2025 11:30 AM EST Office Visit [facility] MEDICINE [address] [place] [address] Lesia Tran MD 230 [place] [address] documented as of this encounter Visit Diagnoses Diagnosis Other acute gastritis, presence of bleeding unspecified- Primary documented in this encounter Additional Health Concerns Assessment Noted Time PHQ-9 Depression Total Score: 11 023 3:14 PM EDT documented as of this encounter Care Teams Garbage Collector Supervisor Relationship Specialty Start Date End Date Roma Bender FNP [address] [place] [address] PCP - General Family Medicine 01/14/23 12/06/23 Lesia Tran MD [address] [place] [address] [phone] PCP - General Internal Medicine 12/07/23 Neetu Bah AGNP [address] [place] [phone] Family Medicine 01/14/23 09/02/23 aCrlos Muñiz, RN [address] [place] [address] Registered Nurse Family Medicine 09/05/24 09/05/24 Carlos Muñiz, ROXANN [address] [place] [address] Registered Nurse Family Medicine 09/06/24 Jennifer Burgess 09/07/24 documented as of this encounter
--- OUTSIDE RECORDS SUMMARY | 2024-12-11 18:30 | XMS_ITS | Encounter Summary ---
Author Organization [employer] Address [address] [place] [address] 7t [place] [address] Care Team Providers Care Machine Ii Cutter Name Role Phone Roma Bender Primary Care Provider [phone] Neetu Bah Unavailable Lesia Tran MD Primary Care Provider + Carlos Muñiz RN Unavailable [phone] Carlos Muñiz RN Unavailable [phone] Jennifer Burgess Unavailable Reason for Visit * Reason Onset Date Comments Medication Question 05/04/2023 Encounter Details Date Type Department Care Team (Late st Contact Info) Description 05/04/2023 Telephone [facility] MEDICINE [address] [place] [address] Roma Bender FNP [address] [place] [address] Medication Question Social History Tobacco Use Types [...] 50 MG tablet prescribed by pcp at [facility] today 05/04/23, was prescribed for 1 time daily but it was supposed to be 2 times daily. Any questions please contact [phone]. documented in this encounter Plan of Treatment Upcoming Encounters Date Type Department Care Team (Late st Contact Info) Description 02/07/2025 11:30 AM EST Office Visit [facility] MEDICINE [address] [place], [place] [phone] Lesia Tran MD 230 [place] [address] documented as of this encounter Visit Diagnoses Not on filedocumented in this encounter Additional Health Concerns Assessment Noted Time PHQ-9 Depression Total Score: 11 023 3:14 PM EDT documented as of this encounter Care Teams Machine Ii Cutter Relationship Specialty Start Date End Date Roma Bender FNP [address] [place] [address] PCP - General Family Medicine 01/14/23 12/06/23 Lesia Tran MD 230 [place] [address] PCP - General Internal Medicine 12/07/23 Neetu Bah AGNP [address] [place] [phone] Family Medicine 01/14/23 09/02/23 Carlos Muñiz, ROXANN 505 [place] [address] Registered Nurse Family Medicine 09/05/24 09/05/24 Carlos Muñiz, ROXANN [address] [place] [address] Registered Nurse Family Medicine 09/06/24 Jennifer Burgess 09/07/24 documented as of this encounter
--- OUTSIDE RECORDS SUMMARY | 2024-12-11 18:30 | XMS_ITS | Encounter Summary ---
Author Organization [employer] Address [address] [place] [address] 7t [place] [address] Care Team Providers Care Field Human Resources Manager Name Role Phone Neetu Bah Primary Care Provider Roma BenderP Primary Care Provider [phone] Neetu Bah Unavailable [phone] Lesia Tran MD Primary Care Provider + Carlos Muñiz RN Unavailable [phone] Carlos Muñiz RN Unavailable [phone] Jennifer Burgess Unavailable Encounter Details Date Type Department Care Team (Late st Contact Info) Description 09/28/2022 Abstract [facility] ADULT DENTAL 230 [place] [address] Trenton Wilkerson DDS [address] [place] [address] Social History Tobacco Use Types Packs/Day Years [...] Description 02/07/2025 11:30 AM EST Office Visit [facility] MEDICINE 230 [place] [address] Lesia Tran MD 230 [place] [address] documented as of this encounter Visit Diagnoses Not on filedocumented in this encounter Care Teams Field Human Resources Manager Relationship Specialty Start Date End Date Neetu Bah AGNP [address] [place] [phone] PCP - General Family Medicine 11/28/20 01/13/23 Roma Bender FNP 230 [place] [address] PCP - General Family Medicine 01/14/23 12/06/23 Lesia Tran MD [address] [place] [address] PCP - General Internal Medicine 12/07/23 Neetu Bah AGNP [address] [place] [phone] Family Medicine 01/14/23 09/02/23 Carlos Muñiz, RN [address] [place] [address] Registered Nurse Family Medicine 09/05/24 09/05/24 Carlos Muñiz, RN [address] [place] [address] Registered Nurse Family Medicine 09/06/24 Jennifer Burgess 09/07/24 documented as of this encounter
== END 2024-12-11 16:24 | disposition home or self-care (01) ==
LOC: HO.HPS 15:38
PROVIDERS: PCP Internal Medicine; Visit Provider Nurse Practitioner Family
DX: J45.909 Unspecified asthma, uncomplicated (principal); R06.09 Other forms of dyspnea; Z87.01 Personal history of pneumonia (recurrent); G47.34 Idiopathic sleep related nonobstructive alveolar hypoventilation; R05.9 Cough, unspecified
CPT/HCPCS: 99214

== ENCOUNTER → 2024-12-11 15:37 | Outpatient (BNVA) | payer MEDICAID, SELFPAY | PROVIDERS: PCP Internal Medicine; Visit Provider Nurse Practitioner Family | DX: G47.34 Idiopathic sleep related nonobstructive alveolar hypoventilation (principal); J45.909 Unspecified asthma, uncomplicated; R06.09 Other forms of dyspnea; Z87.01 Personal history of pneumonia (recurrent); R06.9 Unspecified abnormalities of breathing; Z87.891 Personal history of nicotine dependence; Z99.81 Dependence on supplemental oxygen | CPT/HCPCS: 99212 ==

== ENCOUNTER 2024-12-14 09:52 | Outpatient (AMB) | payer MEDICAID, SELFPAY ==
--- NOTE | 2024-12-14 10:45 | A.OFFVIS_ITS ---
Intake Visit Reasons: 6MWT Allergies Penicillins (PENICILLINS) Allergy (Unknown, Verified 12/11/24 15:43) [facility] Medical History GERD (gastroesophageal reflux disease) Pulmonary edema Opioid use disorder Acute exacerbation of moderate persistent extrinsic asthma Pneumonitis Opioid use disorder, severe, in early remission Suicidal ideation Exocrine pancreatic insufficiency Polysubstance abuse No known health problems Surgical History Hx of tonsillectomy Social History Household Members: Family Housing: House Do you presently have visiting nurse or other home services: No Alcohol intake: former Comment: sitter at bedside Patient Tobacco Use Status: Former Tobacco user Substance Use Type: Marijuana Advance Directives Date on File: 03/15/24 service: No Sexual orientation: Straight/Heterosexual Office Procedures 6 Minute Walk Time:: 10:10 SPO2 % at rest: 94 Pulse at rest: 105 SPO2 % during excercise: 84 Pulse during excercise: 120 SPO2 % after excercise: 94 Pulse after excercise: 112 Distance in yards walked: 500 João Score: 7 Performance Observations:: Patient walked unassisted on level ground with steady gait. Maintained O2 saturation in the low 90's (90-92) until 3 minutes at which time O2 saturation dropped to 84% and pulse was 120. O2 applied at 2L and rested for about a minute. O2 saturation recovered to 95% and pulse 113. Completed walk maintaining O2 saturation in the 93-94% and pulse 110-112. Rested with O2 on and then walked with the poc at #2 setting and patient walked for about 3 minutes maintaining O2 saturation of 90-91% with pulse between 100-110 poc increased to setting #3. Recovered to 94% Patient completed the walk at setting 3 maintaining O2 sat of 93-94% and pulse of 110-123. Patient required supplemental oxygen at 2L and qualified for poc at setting #3. [address] - 6 Minute Walk Assessment & Plan Assessment & Plan (1) Hypoventilation associated with obesity: Code(s): E66.2 - Morbid (severe) obesity with alveolar hypoventilation Category: Medical Plan 6MWT performed Orders: Orders AMB 6 minute walk 12/14/24 J45.909 - Unspecified asthma, uncomplicated Coding Level of Care Code Est Pt Level 1 (87911) Diagnoses Hypoventilation associated with obesity E66.2 CPT Codes Coding ([id number])
[2024-12-14 11:29] VITALS: PULSE 105; O2SAT 94
--- OUTSIDE RECORDS SUMMARY | 2024-12-14 11:42 | XMS_ITS | Encounter Summary ---
Author Organization [employer] Address 75 [facility] 7t [place] [address] Care Team Providers Care Custodial Operations Manager Name Role Phone Roma Bender Primary Care Provider [phone] Neetu Bah Unavailable [phone] Lesia Tran MD Primary Care Provider + Carlos Muñiz RN Unavailable [phone] Carlos Muñiz RN Unavailable [phone] Jennifer Burgess Unavailable Encounter Details Date Type Department Care Team (Late st Contact Info) Description 02/19/2023 Orders Only [facility] CHC MED & PEDS [address] [place] [address] Roma Bender FNP [address] [place] [address] Other acute gastritis, presence of bleeding unspecified [...] Description 02/07/2025 11:30 AM EST Office Visit [facility] MEDICINE [address] [place] [address] Lesia Tran MD 230 [place] [address] documented as of this encounter Visit Diagnoses Diagnosis Other acute gastritis, presence of bleeding unspecified- Primary documented in this encounter Additional Health Concerns Assessment Noted Time PHQ-9 Depression Total Score: 11 023 3:14 PM EDT documented as of this encounter Care Teams Custodial Operations Manager Relationship Specialty Start Date End Date Roma Bender FNP [address] [place] [address] PCP - General Family Medicine 01/14/23 12/06/23 Lesia Tran MD [address] [place] [address] [phone] PCP - General Internal Medicine 12/07/23 Neetu Bah AGNP [address] [place] [phone] Family Medicine 01/14/23 09/02/23 Carlos Muñiz, RN [address] [place] [address] Registered Nurse Family Medicine 09/05/24 09/05/24 Carlos Muñiz, ROXANN [address] [place] [address] Registered Nurse Family Medicine 09/06/24 Jennifer Burgess 09/07/24 documented as of this encounter
--- OUTSIDE RECORDS SUMMARY | 2024-12-14 11:42 | XMS_ITS | Encounter Summary ---
Author Organization [employer] Address [address] [place] [address] 7t [place] [address] Care Team Providers Care Putty And Caulking Supervisor Name Role Phone Lesia Tran MD Primary Care Provider + Carlos Muñiz RN Unavailable [phone] Carlos Muñiz RN Unavailable [phone] Jennifer Burgess Unavailable Reason for Visit * Reason Onset Date Comments Nurse Triage 06/16/2024 Encounter Details Date Type Department Care Team (Late st Contact Info) Description 06/16/2024 Telephone [facility] MEDICINE [address] [place], [place] [phone] Lesia Tran MD [address] [place], [place] [phone] Nurse Triage Social History Tobacco Use Types [...] the past 12 months, has t he [employer], oil or water [employer] threatened to shut off services in your [...] appt from yesterday as he was in [facility] ED ( note requested) Patient [...] in agreement to reach out to [facility] and Crisis as needed. Has concerns [...] contact with Care Coordinators here at [facility] and is requesting additional help. Patient agrees to have [facility] reach out to him with worsening symptoms. [facility] and message to [facility] sent. Disposition reviewed and patient in [...] - 06/16/2024 10:29 AM EDT Please obtain [facility] ED note from visit on 06/15/24. Patient scheduled with PCP on Wednesday06/20/24. * Telephone Encounter - Kenisha Mtz - 06/16/2024 9:52 AM EDT Symptoms: Abdominal Pain - Male, Abdominal Swelling Outcome: Schedule an urgent appointment (within 4 hours) or talk to a nurse or provider soon Reason: Started within the past 3 days The caller accepted this outcome. [phone] documented in this encounter Plan of Treatment Upcoming Encounters Date Type Department Care Team (Late st Contact Info) Description 02/07/2025 11:30 AM EST Office Visit [facility] MEDICINE [address] [place] [address] Lesia Tran MD [address] [place] [address] documented as of this encounter Visit Diagnoses Not on filedocumented in this encounter Additional Health Concerns Assessment Noted Time PHQ-9 Depression Total Score: 21 024 2:23 PM EST documented as of this encounter Care Teams Putty And Caulking Supervisor Relationship Specialty Start Date End Date Lesia Tran MD [address] [place] [address] PCP - General Internal Medicine 12/07/23 Carlos Muñiz RN [address] [place] [address] Registered Nurse Family Medicine 09/05/24 09/05/24 Carlos Muñiz RN [address] [place] [address] Registered Nurse Family Medicine 09/06/24 Jennifer Burgess 09/07/24 documented as of this encounter
--- OUTSIDE RECORDS SUMMARY | 2024-12-14 11:42 | XMS_ITS | Encounter Summary ---
Author Organization [employer] Address [address] [place] [address] 7t [place] [address] Care Team Providers Care Director Of Field Sales Name Role Phone Lesia Tran MD Primary Care Provider + Carlos Muñiz RN Unavailable [phone] Carlos Muñiz RN Unavailable [phone] Jennifer Burgess Unavailable Reason for Visit * Reason Onset Date Comments Med Refill 05/15/2024 Encounter Details Date Type Department Care Team (Late st Contact Info) Description 05/15/2024 Telephone [facility] MEDICINE [address] [place], [place] [phone] Lesia Tran MD [address] [place] [address] Med Refill Social History Tobacco Use Types [...] 9:47 AM EST Medication was sent to [facility][id number] on 05/01/24 with 1 refill. * Telephone Encounter - Kenisha Mtz - 05/15/2024 9:43 AM EST TC from pt requesting medication refill. Medications needing refill : hydrOXYzine pamoate (Vistaril) 25 MG capsule To be sent to: [facility]/pharmacy #[id number] - [place] [address] documented in this encounter Plan of Treatment Upcoming Encounters Date Type Department Care Team (Late st Contact Info) Description 02/07/2025 11:30 AM EST Office Visit [facility] MEDICINE [address] [place] [address] Lesia Tran MD [address] [place] [address] documented as of this encounter Visit Diagnoses Not on filedocumented in this encounter Additional Health Concerns Assessment Noted Time PHQ-9 Depression Total Score: 21 024 2:23 PM EST documented as of this encounter Care Teams Director Of Field Sales Relationship Specialty Start Date End Date Lesia Tran MD [address] [place] [address] PCP - General Internal Medicine 12/07/23 Carlos Muñiz, RN [address] [place] [address] Registered Nurse Family Medicine 09/05/24 09/05/24 Carlos Muñiz RN [address] [place] [address] Registered Nurse Family Medicine 09/06/24 Jennifer Burgess 09/07/24 documented as of this encounter
--- OUTSIDE RECORDS SUMMARY | 2024-12-14 11:42 | XMS_ITS | Encounter Summary ---
Author Organization [employer] Address [address] [place] [address] 7t [place] [address] Care Team Providers Care Claims Examiner Name Role Phone Neetu Bah Primary Care Provider Roma BenderP Primary Care Provider [phone] Neetu Bah Unavailable [phone] Lesia Tran MD Primary Care Provider + Carlos Muñiz RN Unavailable [phone] Carlos Muñiz RN Unavailable [phone] Jennifer Burgess Unavailable Encounter Details Date Type Department Care Team (Late st Contact Info) Description 09/29/2022 Abstract [facility] ADULT DENTAL [address] [place] [address] Trenton Wilkerson DDS [address] [place] [address] Social History Tobacco Use Types Packs/Day Years [...] Description 02/07/2025 11:30 AM EST Office Visit [facility] MEDICINE [address] [place] [address] Lesia Tran MD [address] [place] [address] documented as of this encounter Visit Diagnoses Not on filedocumented in this encounter Care Teams Claims Examiner Relationship Specialty Start Date End Date Neetu Bah AGNP [address] [place] [phone] PCP - General Family Medicine 11/28/20 01/13/23 Roma Bender FNP [address] [place] [address] PCP - General Family Medicine 01/14/23 12/06/23 Lesia Tran MD [address] [place] [address] PCP - General Internal Medicine 12/07/23 Neetu Bah AGNP [address] [place] [phone] Family Medicine 01/14/23 09/02/23 Carlos Muñiz, RN [address] [place] [address] Registered Nurse Family Medicine 09/05/24 09/05/24 Carlos Muñiz, RN [address] [place] [address] Registered Nurse Family Medicine 09/06/24 Jennifer Burgess 09/07/24 documented as of this encounter
--- OUTSIDE RECORDS SUMMARY | 2024-12-14 11:42 | XMS_ITS | Clinical Summary ---
Author Organization [facility] Address [address] [place] [address] Phone Care Team Providers Care Aircraft Maintenance Supervisor Name Role Phone Az Terrell Primary Care Provider Immunizations Immunization Administration Dates Next Due DTP [...] age to complete this topic Care Teams Aircraft Maintenance Supervisor Relationship Specialty Start Date End Date Az Terrell [address] [place] [address] PCP - General 11/13/16
--- OUTSIDE RECORDS SUMMARY | 2024-12-14 11:42 | XMS_ITS | Encounter Summary ---
Author Organization [employer] Address [address] [place] [address] 7t [place] [address] Care Team Providers Care Cash Register Mechanic Name Role Phone Neetu Bah Primary Care Provider Roma BenderP Primary Care Provider [phone] Neetu Bah Unavailable [phone] Lesia Tran MD Primary Care Provider + Carlos Muñiz RN Unavailable [phone] Carlos Muñiz RN Unavailable [phone] Jennifer Burgess Unavailable Encounter Details Date Type Department Care Team (Late st Contact Info) Description 09/29/2022 Abstract [facility] ADULT DENTAL [address] [place] [address] Trenton Wilkerson DDS [address] [place] [address] Social History Tobacco Use Types Packs/Day Years [...] Description 02/07/2025 11:30 AM EST Office Visit [facility] MEDICINE [address] [place] [address] Lesia Tran MD [address] [place] [address] documented as of this encounter Visit Diagnoses Not on filedocumented in this encounter Care Teams Cash Register Mechanic Relationship Specialty Start Date End Date Neetu Bah AGNP [address] [place] [phone] PCP - General Family Medicine 11/28/20 01/13/23 Roma Bender FNP [address] [place] [address] PCP - General Family Medicine 01/14/23 12/06/23 Lesia Tran MD [address] [place] [address] PCP - General Internal Medicine 12/07/23 Neetu Bah AGNP [address] [place] [phone] Family Medicine 01/14/23 09/02/23 Carlos Muñiz, RN [address] [place] [address] Registered Nurse Family Medicine 09/05/24 09/05/24 Carlos Muñiz, RN [address] [place] [address] Registered Nurse Family Medicine 09/06/24 Jennifer Burgess 09/07/24 documented as of this encounter
--- OUTSIDE RECORDS SUMMARY | 2024-12-14 11:42 | XMS_ITS | Encounter Summary ---
Author Organization [employer] Address [address] [place] [address] 7t [place] [address] Care Team Providers Care Cone Runner Name Role Phone Roma Bender Primary Care Provider [phone] Neetu Bah Unavailable Lesia Tran MD Primary Care Provider + Carlos Muñiz RN Unavailable [phone] Carlos Muñiz RN Unavailable [phone] Jennifer Burgess Unavailable Reason for Visit * Reason Onset Date Comments Medication Question 05/04/2023 Encounter Details Date Type Department Care Team (Late st Contact Info) Description 05/04/2023 Telephone [facility] MEDICINE [address] [place] [address] Roma Bender FNP [address] [place] [address] Medication Question Social History Tobacco Use Types [...] MG tablet prescribed by pcp at [facility] today 05/04/23, was prescribed for 1 time daily but it was supposed to be 2 times daily. Any questions please contact [phone]. documented in this encounter Plan of Treatment Upcoming Encounters Date Type Department Care Team (Late st Contact Info) Description 02/07/2025 11:30 AM EST Office Visit [facility] MEDICINE [address] [place], [place] [phone] Lesia Tran MD [address] [place] [address] documented as of this encounter Visit Diagnoses Not on filedocumented in this encounter Additional Health Concerns Assessment Noted Time PHQ-9 Depression Total Score: 11 023 3:14 PM EDT documented as of this encounter Care Teams Cone Runner Relationship Specialty Start Date End Date Roma Bender FNP [address] [place] [address] PCP - General Family Medicine 01/14/23 12/06/23 Lesia Tran MD [address] [place] [address] PCP - General Internal Medicine 12/07/23 Neetu Bah AGNP [address] [place] [phone] Family Medicine 01/14/23 09/02/23 Carlos Muñiz, ROXANN [address] [place] [address] Registered Nurse Family Medicine 09/05/24 09/05/24 Carlos Muñiz, ROXANN [address] [place] [address] Registered Nurse Family Medicine 09/06/24 Jennifer Burgess 09/07/24 documented as of this encounter
--- OUTSIDE RECORDS SUMMARY | 2024-12-14 11:42 | XMS_ITS | Encounter Summary ---
Author Organization [employer] Address [address] [place] [address] [address] [place] [address] Care Team Providers Care Cardiology Clinical Consultant Name Role Phone Neetu Bah Primary Care Provider Roma BenderP Primary Care Provider [phone] Neetu Bah Unavailable [phone] Lesia Tran MD Primary Care Provider + Carlos Muñiz RN Unavailable [phone] Carlos Muñiz RN Unavailable [phone] Jennifer Burgess Unavailable Encounter Details Date Type Department Care Team (Late st Contact Info) Description 09/28/2022 Abstract [facility] [address] [place] [address] Trenton Wilkerson DDS [address] [place] [address] Social History Tobacco Use Types Packs/Day Years [...] 02/07/2025 11:30 AM EST Office Visit [facility] [address] [place] [address] Lesia Tran MD [address] [place] [address] documented as of this encounter Visit Diagnoses Not on filedocumented in this encounter Care Teams Cardiology Clinical Consultant Relationship Specialty Start Date End Date Neetu Bah AGNP [address] [place] [phone] PCP - General Family Medicine 11/28/20 01/13/23 Roma Bender FNP [address] [place] [address] PCP - General Family Medicine 01/14/23 12/06/23 Lesia Tran MD [address] [place] [address] PCP - General Internal Medicine 12/07/23 Neetu Bah AGNP [address] [place] [phone] Family Medicine 01/14/23 09/02/23 Carlos Muñiz, RN [address] [place] [address] Registered Nurse Family Medicine 09/05/24 09/05/24 Carlos Muñiz, RN [address] [place] [address] Registered Nurse Family Medicine 09/06/24 Jennifer Burgess 09/07/24 documented as of this encounter
--- OUTSIDE RECORDS SUMMARY | 2024-12-14 11:42 | XMS_ITS | Encounter Summary ---
Author Organization [employer] Address [address] [place] [address] [address] [place] [address] Care Team Providers Care Bass Mechanism Maker Name Role Phone Lesia Tran MD Primary Care Provider + Carlos Muñiz RN Unavailable [phone] Carlos Muñiz RN Unavailable [phone] Jennifer Burgess Unavailable Reason for Visit * Reason Onset Date Comments rs appt/disconnected call 06/29/2024 Encounter Details Date Type Department Care Team (Late st Contact Info) Description 06/29/[address] [facility] [address] [place] [address] Trenton Wilkerson DDS [address] [place] [address] rs appt/disconnected call Social History Tobacco Use [...] I was on the line with front end wheel loader operator [facility] the patient disconnected the call.. The [...] Description 02/07/2025 11:30 AM EST Office Visit [facility] [address] [place] [address] Lesia Tran MD [address] [place] [address] documented as of this encounter Visit Diagnoses Not on filedocumented in this encounter Additional Health Concerns Assessment Noted Time PHQ-9 Depression Total Score: 21 06/09/ 024 2:23 PM EST documented as of this encounter Care Teams Bass Mechanism Maker Relationship Specialty Start Date End Date Lesia Tran MD [address] [place] [address] PCP - General Internal Medicine 12/07/23 Carlos Muñiz, RN [address] [place] [address] Registered Nurse Family Medicine 09/05/24 09/05/24 Carlos Muñiz, RN [address] [place] [address] Registered Nurse Family Medicine 09/06/24 Jennifer Burgess 09/07/24 documented as of this encounter
--- OUTSIDE RECORDS SUMMARY | 2024-12-14 11:42 | XMS_ITS | Encounter Summary ---
Author Organization [employer] Address [address] [place] [address] [address] [place] [address] Care Team Providers Care Ax Survey Worker Name Role Phone Neetu Bah Primary Care Provider Roma BenderP Primary Care Provider [phone] Neetu Bah Unavailable [phone] Lesia Tran MD Primary Care Provider + Carlos Muñiz RN Unavailable [phone] Carlos Muñiz RN Unavailable [phone] Jennifer Burgess Unavailable Reason for Visit * Reason Onset Date Comments New Patient 11/18/2022 Encounter Details Date Type Department Care Team (Late st Contact Info) Description 11/18/2022 Telephone [facility] [address] [place], [place] [phone] Koby Holland MD [address] [place], [place] [phone] New Patient Social History Tobacco Use Types [...] been transfer over to wait list for [employer]. [employer]ECTIVE SINCE 11/24/2022 * Telephone Encounter - Lisa Lopes - 11/18/2022 10:33 AM EDT Tc to Pt , informed that we do take insurance, but must call 3nder to change location. Once done, to please call back to facility at [phone] documented in this encounter Plan of Treatment Upcoming Encounters Date Type Department Care Team (Late st Contact Info) Description 02/07/2025 11:30 AM EST Office Visit [facility] [address] [place] [address] Lesia Tran MD [address] [place] [address] documented as of this encounter Visit Diagnoses Not on filedocumented in this encounter Care Teams Ax Survey Worker Relationship Specialty Start Date End Date Neetu Bah AGNP [address] [place] [phone] PCP - General Family Medicine 11/28/20 01/13/23 Roma Bender FNP [address] [place] [address] PCP - General Family Medicine 01/14/23 12/06/23 Lesia Tran MD [address] [place] [address] PCP - General Internal Medicine 12/07/23 Neetu Bah AGNP [address] [place] [phone] Family Medicine 01/14/23 09/02/23 Carlos Muñiz, RN [address] [place] [address] Registered Nurse Family Medicine 09/05/24 09/05/24 Carlos Muñiz RN [address] [place] [address] Registered Nurse Family Medicine 09/06/24 Jennifer Burgess 09/07/24 documented as of this encounter
--- OUTSIDE RECORDS SUMMARY | 2024-12-14 11:42 | XMS_ITS | Encounter Summary ---
Author Organization [employer] Address [address] [place] [address] [address] [place] [address] Care Team Providers Care Information Resources Director Name Role Phone Lesia Tran MD Primary Care Provider + Carlos Muñiz RN Unavailable [phone] Carlos Muñiz RN Unavailable [phone] Jennifer Burgess Unavailable Reason for Visit * Reason Onset Date Comments medication 02/02/2024 Encounter Details Date Type Department Care Team (Late st Contact Info) Description 02/02/2024 Telephone [facility] [address] [place] [address] Trenton Wilkerson DDS [address] [place] [address] medication Social History Tobacco Use Types Packs/Day [...] housing situation today? I have [employer]ando ads 02/02/[address] you li [...] 02/07/2025 11:30 AM EST Office Visit [facility] [address] [place] [address] Lesia Tran MD [address] [place] [address] documented as of this encounter Visit Diagnoses Not on filedocumented in this encounter Additional Health Concerns Assessment Noted Time PHQ-9 Depression Total Score: 21 06/09/2 024 2:23 PM EST documented as of this encounter Care Teams Information Resources Director Relationship Specialty Start Date End Date Lesia Tran MD [address] [place] [address] PCP - General Internal Medicine 12/07/23 Carlos Muñiz, ROXANN [address] [place] [address] Registered Nurse Family Medicine 09/05/24 09/05/24 Carlos Muñiz, ROXANN [address] [place] [address] Registered Nurse Family Medicine 09/06/24 Jennifer Burgess 09/07/24 documented as of this encounter
--- OUTSIDE RECORDS SUMMARY | 2024-12-14 11:42 | XMS_ITS | Clinical Summary ---
Author Organization [employer] Address [address] [facility] [place] [address] Care Team Providers Care Powerhouse Operator Name Role Phone Andrea Amor MD Primary Care Provider + Carlos Muñiz RN Unavailable [phone] Jennifer Burgess Unavailable Allergies Active Allergy Reactions [...] and at bedtime for anxiety. Active pancrelipase, Uzj-Dyca-Mzfh, (Creon) 49127-91275 units capsule Take 2 capsules by mouth [...] apnea) 02/11/2024 Overview (02/11/2024): Sleep study at [facility]: moderate TYSON with nocturnal hypoxemia, [...] results [facility] Mild persistent asthma 02/11/2024 Assessment & Plan (02/11/2024 4:00 PM EST): Doing well on Breo, fu by [facility] pulmonary Advised [...] (02/11/2024 4:01 PM EST): FU by [facility] GI, on [...] moderate intensity exercise. Will hold referral to internist until next appointment once anxiety is better [...] ID: Yaniv is a 37 y.o. White Serbian choose not to disclose-identified cis- male (pronouns [...] for 2.5 years, currently on methadone at [facility], 128mg with a plan on taper [...] he will follow-up with the [facility] and [facility]. His [facility] assist with methadone administration, pharmaco [...] vaping cannabis Advised to reach out to debt recovery officer at the methadone program, avoid using any other recreational substance or alcohol Assessment & Plan (07/27/2024 2:58 PM EDT): >>ASSESSMENT AND PLAN FOR ANXIETY WRITTEN ON 02/11/2024 4:04 PM BY ANDREA AMOR MD Seen by MH provider at [facility], will bring meds at next appt. He feels safe at home and is able to reach out for safety. Assessment & Plan (06/20/2024 1:14 PM EDT): Recently started seeing psychiatry and medications, advised to fu closely with them next week. Advised to cut down on vaping cannabis. Pt feels safe at home, advised to reach out to therapist or debt recovery officer (he will request one at methadone program). Advised against using recreational substances or alcohol. Pt will see therapist this afternoon. Routine health maintenance 05/29/2023 Assessment & Plan (05/29/2023 2:23 PM EST): -Pt brought labs done by his [facility] in 04/06/2023 hb 11.7,chem was [...] 248 Pt brought labs done by his [facility] in 04/06/2023 hb 11.7,chem was [...] PM EST): Doing well on Methadone at [facility], has take home bottles Advised to decrease use of THC Encounters * This document contains information received from the source organization and may not represent a complete record from that organization. Date Type Department Care Team Description 12/07/2024 Patient Outreach [facility] [address] [place] [phone] Andrea Amor MD 12/05/2024 12:00 PM EDT Office Visit [facility] [address] [place] [phone] Andrea Amor MD Generalized anxiety disorder with panic attacks (Primary Dx); Stress incontinence of urine; Morbid obesity ([facility]/HCC) 12/05/2024 Travel 12/04/2024 Travel 11/29/2024 Telephone [facility] [address] [place] [phone] Andrea Amor MD Chart Prep 11/24/2024 Patient Outreach [address] [address] Andrea Amor MD 11/21/2024 Patient Outreach [address] [address] Andrea Amor MD 11/17/2024 Patient Outreach [address] [address] Andrea Amor MD Care Management (C3CM- Follow Up Call # 3) 11/15/2024 Telephone [facility] [address] [place] [phone] Andrea Amor MD IZ 11/09/2024 9:00 AM EDT Office Visit [facility] [address] [place] [phone] Clem, Ailyn, OD Myopia, bilateral (Primary Dx) 11/02/2024 Patient Outreach [facility] [address] [place] [phone] Andrea Amor MD Care Coordination (C3 CM-[facility] Jennifer Burgess telephone call outreach) 10/31/2024 Telephone [facility] [address] [place] [phone] Cheryl Watts, PRINTING ENGINEER Follow-up 10/31/2024 Patient Outreach [facility] [address] [place] [phone] Andrea Amor MD Care Management (C3CM- follow up call # 2) 10/24/2024 Orders Only GENERIC EXTERNAL DATA DEPARTMENT Provider, Generic External Data 10/23/2024 11:00 AM EDT Office Visit [facility]ENT[facility] [address] [place] [phone] Trenton Wilkerson DDS Mild persistent asthma, unspecified whether complicated 10/23/2024 Refill [facility] [address] [place] [phone] Andrea Amor MD 10/22/2024 Travel 10/20/2024 Telephone [facility] [address] [place] [phone] Andrea Amor MD Durable Medical Equipment (DME RX Pullup, Bathroom Grab Bars, Shower Bench(L&C)) 10/18/2024 Orders Only GENERIC EXTERNAL DATA DEPARTMENT Provider, Generic External Data 10/16/2024 Patient Outreach [facility] [address] [place] [phone] Andrea Amor MD Care Coordination (C3 -[facility] Jennifer Burgess telephone call outreach/) 10/15/2024 Orders Only GENERIC EXTERNAL DATA DEPARTMENT Provider, Generic External Data 10/11/2024 Refill [facility] [address] [place] [phone] Andrea Amor MD 10/02/2024 1:00 PM EDT Office Visit [facility] [address] [place] [address] Mariah Villaseñor, OD Myopia, bilateral (Primary Dx) 10/02/2024 Travel 09/29/2024 Patient Outreach [facility] [address] [place] [address] Andrea Amor MD 09/29/2024 Patient Outreach [facility] [place] [address] Andrea Amor MD Care Coordination 09/28/2024 Patient Outreach [facility] [place] [address] Andrea Amor MD Care Management (C3- Follow up call # 1) 09/26/2024 Results Follow-Up [facility] [place] [address] Andrea Amor MD Sed Rate by Modified Westergren, Rheumatoid Factor, Drug Monitoring, Panel 1, Screen, Urine, Additional followed-up results: 2 09/26/2024 Results Follow-Up [address] [place] [address] Andrea Amor MD TSH with Reflex to Free T4, Lipid Panel with Reflex to Direct LDL 09/22/[address] [address] Andrea Amor MD Referral 09/22/[address] [address] Andrea Amor MD Durable Medical Equipment 09/20/2024 3:30 PM EDT Office Visit [facility] ADULT DENTAL [address] [place] [phone] Trenton Wilkerson DDS Complete edentulism, unspecified edentulism class (Primary Dx) 09/19/2024 2:00 PM EDT Office Visit [address] [address] Andrea Amor MD Generalized anxiety disorder with panic attacks (Primary Dx); Severe episode of recurrent major depressive disorder, without psychotic features (CMS/HCC); Acute right-sided low back pain with right-sided sciatica; Upper GI bleeding 09/19/2024 Orders Only GENERIC EXTERNAL DATA DEPARTMENT Provider, Generic External Data 09/19/2024 Travel 09/18/2024 Patient Outreach [address] [place] [address] Andrea Amor MD 09/18/2024 [address]phone [address] [place] [address] Andrea Amor MD chart prep 09/13/2024 Patient Outreach [facility] [address] [place] [address] Andrea Amor MD from Last 3 Months [...] Answer Date Recorded Patient Health Questionnaire-9 Score 09/12/2024 Patient Health Questionnaire-9 Score 09/12/2024 Last PHQ-9: Questionnaire Data Not on file 0 09/12/2024 Housing Stability Answer Date Recorded What is your housing situation today? I do not have housing (Staying with others, in a hotel, in a prison, living outside on the street, on a [...] 11:30 AM EST Office Visit [facility] [address] [place], [place] [phone] Andrea mAor MD [address] [place], [place] [phone] Health Maintenance Due Date Last Done Comments Dental Prophylaxis 1985 Family Planning (PISQ) 06/23/2002 HPV Vaccines (1 - Male 3-dose series) 06/23/2002 Pneumococcal Vaccine: Pediatrics (0 to 5 Years) and At-Risk Patients (6 to 49) Years (1 of 2 - PCV) 06/23/2006 Dental X-Ray: Bitewings 02/21/2015 02/20/2014 Dental Oral Exam 10/11/2024 04/12/2024, 02/20/2014 COVID-19 Vaccine ( - season) 2024 09/11/2020, 07/30/2020 Influenza Vaccine (#1) 2024 , 01/28/2022, 07/14/2021 Depression Monitoring 03/14/2025 09/12/2024, 025 Diabetes: Hemoglobin A1C 06/20/2025 06/20/2024, 0308/2023 SDOH Screening 09/12/2025 09/12/2024 Alcohol/Substance Use Screening 12/05/2025 12/05/2024 Disability Screening 12/05/2025 12/05/2024 Tobacco Screening 12/05/2025 12/05/2024 Dental X-Ray: Full Mouth 04/13/2027 025, 12/01/2023, 09/25/2022, Additional history exists Lipid Panel 09/19/2029 09/19/2024, 03/0 08/2023, 02/01/2023 DTaP/Tdap/Td Vaccines (9 - Td [...] Bilirubin, Total 0.3 0.0 - 1.0 mg/dL [facility] Bilirubin, Direct 0.1 0.0 - 0.5 mg/dL [facility] Aspartate Amino Transferase 31 5 - 37 U/L [facility] Alanine Aminotransferase 29 0 - 40 U/L [facility] Total Protein 7.6 6.5 - 8.0 g/dL [facility] Albumin Level 3.7 3.5 - 5.0 g/dL [facility] Alkaline Phosphatase 121(H) 39 - 117 U/L [facility] 10/24/2024 10:3 2 PM EDT 10/24/2024 10:46 PM EDT us Generic External Data Provider LAB BLOOD ORDERAB LES Final Result [facility] [address] [place] [phone] * (ABNORMAL) Basic Metabolic Panel (10/24/2024 10:32 PM EDT) Only the most recent of2 resultswithin the time period is included. Sodium 139 135 - 145 mmol/L [facility] Potassium 4.5 3.3 - 5.1 mmol/L [facility] Chloride 100 96 - 108 mmol/L [facility] Carbon Dioxide 31(H) 22 - 29 mmol/L [facility] Anion Gap 13 12 - 20 [facility] Urea Nitrogen (BUN) 10 9 - 16 mg/dL [facility] Creatinine, Serum 0.82 0.5 - 1.4 mg/dL [facility] Creatinine Clr Calc Pharmacy 167.8 [facility] Comment:eGFR (calculated fro m the MDRD study equation) and eCrCl(calculated from the Cockcroft-Gault equation) are based ondifferent parameters and may not yield comparable results.If eCrCl result is absurd, please check patient'sheight/weight. Estimated Glomerular Filt Rate >60 [facility] Comment:Chronic Kidney Disea se: Estimated GFR < 60 mL/min/1.57v2Uvuugm Kidney Disease: Estimated GFR < 15 mL/min/1.73m2 Glucose 107 60 - 115 mg/dL [facility] Calcium 8.7 8.4 - 10.2 mg/dL [facility] 10/24/2024 10:3 2 PM EDT 10/24/2024 10:46 PM EDT us Generic External Data Provider LAB BLOOD ORDERAB LES Final Result [facility] [address] [place] [phone] * (ABNORMAL) CBC auto differential (10/24/2024 9:41 PM EDT) Only the most recent of2 resultswithin the time period is included. White Blood Count 14.9(H) 4.8 - 10.8 X10*3/uL [facility] Red Blood Count 4.57(L) 4.60 - 5.80 X10*6/uL [facility] Hemoglobin 12.1(L) 14.0 - 18.0 g/dl [facility] Hematocrit 38.2(L) 42.0 - 52.0 % [facility] Mean Corpuscular Volume 83.6 80.0 - 98.0 fL [facility] Mean Corpuscular Hemoglobin 26.5(L) 27.0 - 33.0 pg [facility] Mean Corpuscular HGB Conc 31.7 31.0 - 36.0 g/dl [facility] Red Cell Distribution Width 16.0 11.0 - 16.0 % [facility] Platelet Count 286 160 - 400 X10*3/uL [facility] Mean Platelet Volume 8.4(L) 9.4 - 12.4 fL [facility] Neutrophils Percent Auto 78.1(H) 45 - 73 % [facility] Imm Gran Pct Auto 0.8(H) 0.0 - 0.4 % [facility] Lymphocytes Percent Auto 9.1(L) 20 - 40 % [facility] Monocytes Percent Auto 8.2 2 - 11 % [facility] Eosinophils Percent Auto 3.5 0 - 4 % [facility] Basophils Percent Auto 0.3 0 - 2 % [facility] NRBC Pct Auto 0.0 0.0 - 0.2 /100WBC [facility] Neutrophils Absolute Auto 11.6(H) 2.0 - 8.3 x10*3/uL [facility] Imm Gran Abs Auto 0.12(H) 0.00 - 0.03 X10*3/uL [facility] Lymphocytes Absolute Auto 1.4 1.2 - 4.9 X10*3/uL [facility] Monocytes Absolute Auto 1.2 0.1 - 1.2 X10*3/uL [facility] Eosinophils Absolute Auto 0.5(H) 0.0 - 0.4 X10*3/uL [facility] Basophils Absolute Auto 0.1 0.0 - 0.2 X10*3/uL [facility] NRBC Abs Auto 0.000 0.0 - 0.012 X10*3/uL [facility] 10/24/2024 9:41 PM EDT 10/24/2024 9:48 PM EDT us Generic External Data Provider LAB BLOOD ORDERAB LES Final Result [facility] [address] [place] [phone] * Ethanol (10/18/2024 11:28 AM EDT) ETHANOL (MG/DL) IN SER/PLAS <10 mg/dL [facility] Comment:Serum/plasma ethanol results are to be used formedical/treatment purposes only. 10/18/2024 11:2 8 AM EDT 10/18/2024 11:35 AM EDT Generic External Data Provider LAB BLOOD ORDERAB LES Final Result Performing Organization Address [facility] Co de Phone Number [facility] [address] [place] [phone] * Magnesium (10/18/2024 11:28 AM EDT) Magnesium 2.0 1.6 - 2.6 mg/dL [facility] 10/18/2024 11:2 8 AM EDT 10/18/2024 11:35 AM EDT Generic External Data Provider LAB BLOOD ORDERAB LES Final Result Performing Organization Address [facility] Co de Phone Number [facility] [address] [place] [phone] * Lipase (10/18/2024 11:28 AM EDT) Lipase 14 8 - 78 U/L [facility] 10/18/2024 11:2 8 AM EDT 10/18/2024 11:35 AM EDT Generic External Data Provider LAB BLOOD ORDERAB LES Final Result Performing Organization Address [facility] de Phone Number [facility] [address] [place] [phone] * (ABNORMAL) Comprehensive Metabolic Panel (10/18/2024 11:28 AM EDT) Sodium 135 135 - 145 mmol/L [facility] Potassium 4.5 3.3 - 5.1 mmol/L [facility] Chloride 99 96 - 108 mmol/L [facility] Carbon Dioxide 28 22 - 29 mmol/L [facility] Anion Gap 13 12 - 20 [facility] Urea Nitrogen (BUN) 15 9 - 16 mg/dL [facility] Creatinine, Serum 0.89 0.5 - 1.4 mg/dL [facility] Creatinine Clr Calc Pharmacy 139.9 [facility] Comment:eGFR (calculated fro m the MDRD study equation) and eCrCl(calculated from the Cockcroft-Gault equation) are based ondifferent parameters and may not yield comparable results.If eCrCl result is absurd, please check patient'sheight/weight. Estimated Glomerular Filt Rate >60 [facility] Comment:Chronic Kidney Disea se: Estimated GFR < 60 mL/min/1.37f6Qfdkqc Kidney Disease: Estimated GFR < 15 mL/min/1.73m2 Glucose 107 60 - 115 mg/dL [facility] Calcium 8.8 8.4 - 10.2 mg/dL [facility] Bilirubin, Total 0.5 0.0 - 1.0 mg/dL [facility] Aspartate Amino Transferase 33 5 - 37 U/L [facility] Alanine Aminotransferase 38 0 - 40 U/L [facility] Total Protein 8.2(H) 6.5 - 8.0 g/dL [facility] Albumin Level 4.1 3.5 - 5.0 g/dL [facility] Alkaline Phosphatase 143(H) 39 - 117 U/L [facility] 10/18/2024 11:2 8 AM EDT 10/18/2024 11:35 AM EDT us Generic External Data Provider LAB BLOOD ORDERAB LES Final Result [facility] [address] [place] [phone] * XR Chest 2 Views (10/15/2024 11:55 AM EDT) Anatomical Region Laterality Modality Chest Radiographic Elizabet ging 10/15/2024 11:5 5 AM EDT Narrative 10/15/2024 11:57 AM EDT [address] [address] XRay Report Signed Patient: Yaniv Gutierrez MR#: [id number] : 1985 Acct:[id number] Age/Sex: 39 / M ADM Date: 10/15/24 Loc: HO.ED Attending Dr: Ordering Physician: Layo Serrano DO Date of Service: 10/15/24 Procedure(s): XR chest 2V Accession Number(s): [id number] cc: Andrea Amor MD; Layo Serrano DO [...] 10/15/24 1156 DD/ 1155 TD/TT: 10/15/24 1155 It Instructor: Procedure Note Donotuseinterpreter, Image - 10/15/[address] [address] XRay Report Signed Patient: Yaniv Gutierrez GMR#: [id number] : 1985Acct:[id number] Age/Sex: 39 / MADM Date: 10/15/24 Loc: HO.ED Attending Dr: Ordering Physician: Layo Serrano DO Date of Service: 10/15/24 Procedure(s): XR chest 2V Accession Number(s): [id number] cc: Andrea Amor MD; Layo Serrano DO [...] 10/15/24 1156 DD/ 1155 TD/TT: 10/15/24 1155 It Instructor: [facility] External Provider IMG XR PROCEDURES Final Result * (ABNORMAL) Drug Monitoring, Panel 1, Screen, Urine (10/15/2024 11:01 AM EDT) Only the most recent of2 resultswithin the time period is included. Opiate Screen Urine Not Detected Not Detect [facility] Comment:Opiate cut-off is 30 0 ng/mL.Positive results are unconfirmed and should not be used fornon-medical purposes. Barbiturates, Urine Not Detected Not Detect [facility] Comment:Barbiturate cut-off is 200 ng/mL.Positive results are unconfirmed and should not be used fornon-medical purposes. Phencyclidine Screen Urine Not Detected Not Detect [facility] Comment:Phencyclidine cut-of f is 25 ng/mL.Positive results are unconfirmed and should not be used fornon-medical purposes. Amphetamine Screen Urine Not Detected Not Detect [facility] Comment:Amphetamine cut-off is 1000 ng/mL.Positive results are unconfirmed and should not be used fornon-medical purposes. Benzodiazepines Screen Urine Not Detected Not Detect [facility] Comment:Benzodiazepine cut-o ff is 200 ng/mL.Positive results are unconfirmed and should not be used fornon-medical purposes. Cocaine Screen Urine Not Detected Not Detect [facility] Comment:Cocaine cut-off is 3 00 ng/mL.Positive results are unconfirmed and should not be used fornon-medical purposes. Cannabinoid Screen Urine POSITIVE(A) Not Detect [facility] Comment:Cannabinoid cut-off is 50 ng/mL.Positive results are unconfirmed and should not be used fornon-medical purposes. Methadone Screen, Urine Positive(A) Not Detect ng/mL [facility] Comment:Methadone cut-off is 300 ng/mL.Positive results are unconfirmed and should not be used fornon-medical purposes. FENTANYL URINE Not Detected Not Detect [facility] Comment:Fentanyl cut-off is 1 ng/mL.Positive results are unconfirmed and should not be used fornon-medical purposes. Oxycodone Urine Screen Not Detected Not Detect ng/mL [facility] Comment:Oxycodone cut-off is 100 ng/mL.Positive results are unconfirmed and should not be used fornon-medical purposes. Buprenorphine Screen Not Detected Not Detect ng/mL [facility] Comment:Buprenorphine cut-of f is 5 ng/mL.Positive results are unconfirmed and should not be used fornon-medical purposes. 10/15/2024 11:0 1 AM EDT 10/15/2024 11:06 AM EDT Generic External Data Provider LAB URINE ORDERAB LES Final Result [facility] [address] [place] [phone] * Culture, Urine, Routine (10/15/2024 11:01 AM EDT) Urine Urine specimen obtained by clean catch procedure / Unknown 10/15/2024 11:01 AM EDT 10/15/2024 11:06 AM EDT Comment:UACC Narrative [facility] - 10/16/2024 12:22 PM EDT Urine Culture No growth. Specimen Source: Urine clean catch Generic External Data Provider LAB MICROBIOLOGY - GENERAL ORDERABLES Final Result Performing Organization Address [facility]/ZIP Co de Phone Number [facility] [address] [place] [phone] * (ABNORMAL) CRP, HIGH SENSITIVITY (09/19/2024 3:15 PM EDT) CRP, High Sensitivity 10.1(A) mg/L [facility] Comment: Reference RangeOptimal <1.0Sara PS [...] Association. Circulation 2003; 107(3):499-511.THIS TEST WAS PERFORMED AT:[employer] [place] [phone] AMAYA MD 09/19/2024 3:15 PM EDT 09/19/2024 4:07 PM EDT Generic External Data Provider LAB BLOOD ORDERAB LES Final Result Performing Organization Address [facility]/ZIP Co de Phone Number [facility] [address] [place] [phone] * TSH with Reflex to Free T4 (09/19/2024 3:15 PM EDT) TSH reflex Free T4 1.41 0.32 - 4.0 uIU/mL [facility] Blood 09/19/2024 3:15 PM EDT 09/19/2024 4:08 PM EDT us Andrea Amor MD LAB BLOOD ORDERABLES Fin al Result Performing Organization Address [facility] Co de Phone Number [facility] [address] [place] [phone] * (ABNORMAL) Lipid Panel with Reflex to Direct LDL (09/19/2024 3:15 PM EDT) Triglycerides 304(H) <150 mg/dL [facility] Comment:Desirable Triglyceri de: less than 150 mg/dLBorderline High Triglyceride 150-199 mg/dLHigh Triglyceride: 200-499 mg/dLVery High Triglyceride: greater than or equal to 5OO mg/dL Cholesterol 184 <200 mg/dL [facility] Comment:Desirable Cholestero l: less than 200 mg/dLBorderline High Cholesterol: 200-239 mg/dLHigh Cholesterol: greater than 239 mg/dL LDL Cholesterol Calculated 81 <100 mg/dL [facility] Comment:Desirable LDL: less than 100 mg/dLNear Optimal/Above Optimal LDL: 110- 129 mg/dLBorderline High LDL: 130-159 mg/dLHigh LDL: 160-189 mg/dLVery High LDL: greater than or equal to 190 mg/dL HDL Cholesterol 43 >40 mg/dL [facility] Comment:Desirable HDL: great er than 40 mg/dL Note: This HDL assay may give artificially low results in patients with liver disease. Blood 09/19/2024 3:15 PM EDT 09/19/2024 4:08 PM EDT us Andrea Amor MD LAB BLOOD ORDERABLES Fin al Result Performing Organization Address City/[facility]/ZIP Co de Phone Number [facility] [address] [place] [phone] * (ABNORMAL) Sed Rate by Modified Westergren (09/19/2024 3:15 PM EDT) Erythrocyte Sedimentation Rate 38(H) 0 - 15 MM/HR [facility] Comment:Patients with polycy themia and many hemoglobin abnormalitiesmay have depressed sed rates whereas patients with anemiamay have elevated sed rates. 09/19/2024 3:15 PM EDT 09/19/2024 4:08 PM EDT Generic External Data Provider LAB BLOOD ORDERAB LES Final Result Performing Organization Address [facility] Co de Phone Number [facility] [address] [place] [phone] * Rheumatoid Factor (09/19/2024 3:15 PM EDT) Rheumatoid Factor <13.0 <15.0 IU/mL [facility] 09/19/2024 3:15 PM EDT 09/19/2024 4:08 PM EDT Generic External Data Provider LAB BLOOD ORDERAB LES Final Result Performing Organization Address [facility] de Phone Number [facility] [address] [place] [phone] * ANDREA Screen,IFA, with Reflex to Titer and Pattern (09/19/2024 3:15 PM EDT) Anti Nuclear Antibody Screen NEGATIVE NEGATIVE [facility] Comment:ANDREA IFA is a first [...] clinicallysuspected inflammatory myopathies.AC-0: NegativeInternational Consensus on ANDREA Patterns(https://doi.org/10.1515/rtcs-0444-0151)For additional information, please refer tohttp://education.Sensulin/faq/QSC320(This link is being provided for informational/educational purposes only.)THIS TEST WAS PERFORMED AT:[employer] [place] [id number] AMAYA MD ANDREA Titer TNP [facility] ANDREA Pattern TNP [facility] ANDREA TITER 2 (REF LAB) TNP [facility] ANDREA Pattern 2 TNP [facility] ANDREA TITER 3 [facility] PATTERN 3 [facility] 09/19/2024 3:15 PM EDT 09/19/2024 4:07 PM EDT us Generic External Data Provider LAB BLOOD ORDERAB LES Final Result [facility] [address] [place] [address] [phone] * POCT HGB A1C (06/20/2024 12:05 PM EDT) Hemoglobin A1C 6.0 4.0 - 6.0 % QC Media Lot # [id number] Lot# Expiration Date Blood 06/20/2024 12:0 5 PM EDT us Andrea Amor MD POINT OF CARE TEST ENTER /EDIT ORDERABLES Final Result from Last 3 Months or Most Recently Relevant to Health Maintenance [facility] [employer] [facility] AD[place] Care Teams Powerhouse Operator Relationship Specialty Start Date End Date Andrea Amor MD [address] [place] [address] PCP - General Internal Medicine 12/07/23 Carlos Muñiz, RN [address] [place] [address] Registered Nurse Family Medicine 09/06/24 Jennifer Burgess 09/07/24
--- OUTSIDE RECORDS SUMMARY | 2024-12-14 11:43 | XMS_ITS ---
Author Organization [employer] Address [address] [place] [address] 7t [place] [address] Care Team Providers Care Correctional Substance Abuse Counselor Name Role Phone Lesia Tran MD Primary Care Provider + Carlos Muñiz RN Unavailable [phone] Jennifer Burgess Unavailable [facility] Complex Status:Enrolled (Active) Start date:09/07/2024 Enrollment date:09/12/2024 Overview Community Referral- Contacted by [facility] [...]
--- OUTSIDE RECORDS SUMMARY | 2024-12-14 11:43 | XMS_ITS ---
Author Organization [employer] Address [address] [place] [address] 7t [place] [address] Care Team Providers Care Human Resources Assistant Name Role Phone Lesia Tran MD Primary Care Provider + Carlos Muñiz RN Unavailable [phone] Jennifer Burgess Unavailable CM Complex Status:Enrolled (Active) Start date:09/06/2024 Enrollment date:09/07/2024 Enrollment reason:Other Overview Community Referral- Contacted by [facility] contact for patient with inpatient admission attributed to HHCthat requires assistance from CM program. Please see forwarded email for information and coordination of care with inpatient SW, Karen Burt at [facility]. He has recently been put on continuous O2 2L, hehas trouble ambulating and could also use nutrition education as well, Case Team Name Relationship Phone Carlos Muñiz RN(Responsible Staff) Registered Manny tanner [phone] Continued Care and Services Coordination
== END 2024-12-14 10:37 | disposition home or self-care (01) ==
LOC: HO.HPS 09:52
PROVIDERS: PCP Internal Medicine; Visit Provider Nurse Practitioner Family
DX: E66.2 Morbid (severe) obesity with alveolar hypoventilation (principal)
CPT/HCPCS: 94618

== ENCOUNTER → 2024-12-14 09:52 | Outpatient (BNVA) | payer MEDICAID, SELFPAY | PROVIDERS: PCP Internal Medicine; Visit Provider Nurse Practitioner Family | DX: J45.909 Unspecified asthma, uncomplicated (principal); E66.2 Morbid (severe) obesity with alveolar hypoventilation | CPT/HCPCS: 94618; 99211 ==

== ENCOUNTER 2024-12-15 10:51 | Outpatient (REF) | payer MEDICAID, SELFPAY ==
--- NOTE | ~2024-12-15 | CT_ITS ---
CLINICAL HISTORY: Z87.01 - Personal history of pneumonia (recurrent) CT chest without contrast Comparison: 08/16/2024 Findings: The heart size is normal. The visualized thyroid and mediastinum are unremarkable. No new consolidation or effusion. There is bilateral lower lobe scarring or subsegmental atelectasis. The appearance of the liver suggests fatty infiltration. The visualized upper abdomen is otherwise unremarkable. No acute fractures. IMPRESSION: 1. Bilateral lower lobe scar versus subsegmental atelectasis. 2. Hepatic steatosis This document has been electronically signed by: Blake Licea MD on 12/16/2024 08:36:30
--- OUTSIDE RECORDS SUMMARY | 2024-12-15 12:26 | XMS_ITS | Clinical Summary ---
Author Organization [facility] Address [address] [place] [address] Phone Care Team Providers Care Service Member Name Role Phone Az Terrlel Primary Care Provider [phone] Immunizations Immunization Administration Dates Next Due DTP [...] age to complete this topic Care Teams Service Member Relationship Specialty Start Date End Date Az Terrell [address] [place] [address] PCP - General 11/13/16
--- OUTSIDE RECORDS SUMMARY | 2024-12-15 12:27 | XMS_ITS | Encounter Summary ---
Author Organization [employer] Address [address] [place] [address] 7t [place] [address] Care Team Providers Care Transmission Engineer Name Role Phone Lesia Tran MD Primary Care Provider + Carlos Muñiz RN Unavailable [phone] Carlos Muñiz RN Unavailable [phone] Jennifer Burgess Unavailable Reason for Visit * Reason Onset Date Comments medication 02/02/2024 Encounter Details Date Type Department Care Team (Late st Contact Info) Description 02/02/2024 Telephone [facility]ULT D[facility] [address] [place] [address] Trenton Wilkerson DDS [address] [place] [address] medication Social History Tobacco Use Types Packs/Day [...] Description 02/07/2025 11:30 AM EST Office Visit [facility] [address] [place] [address] Lesia Tran MD [address] [place] [address] documented as of this encounter Visit Diagnoses Not on filedocumented in this encounter Additional Health Concerns Assessment Noted Time PHQ-9 Depression Total Score: 21 06/09/2 024 2:23 PM EST documented as of this encounter Care Teams Transmission Engineer Relationship Specialty Start Date End Date Lesia Tran MD [address] [place] [address] PCP - General Internal Medicine 12/07/23 Carlos Muñiz, ROXANN [address] [place] [address] Registered Nurse Family Medicine 09/05/24 09/05/24 Carlos Muñiz, ROXANN [address] [place] [address] Registered Nurse Family Medicine 09/06/24 Jennifer Burgess 09/07/24 documented as of this encounter
--- OUTSIDE RECORDS SUMMARY | 2024-12-15 12:27 | XMS_ITS | Encounter Summary ---
Author Organization [employer] Address [address] [place] [address] 7t [place] [address] Care Team Providers Care B2B Appointment Setter Name Role Phone Neetu Bah Primary Care Provider Roma BenderP Primary Care Provider [phone] Neetu Bah Unavailable [phone] Lesia Tran MD Primary Care Provider + Carlos Muñiz RN Unavailable [phone] Carlos Muñiz RN Unavailable [phone] Jennifer Burgess Unavailable Encounter Details Date Type Department Care Team (Late st Contact Info) Description 09/29/2022 Abstract [facility] AD[facility] [address] [place] [address] Trenton Wilkerson DDS [address] [place] [address] Social History Tobacco Use Types Packs/Day Years [...] Description 02/07/2025 11:30 AM EST Office Visit [facility] [address] [place] [address] Lesia Tran MD [address] [place] [address] documented as of this encounter Visit Diagnoses Not on filedocumented in this encounter Care Teams B2B Appointment Setter Relationship Specialty Start Date End Date Neetu Bah AGNP [address] [place] [phone] PCP - General Family Medicine 11/28/20 01/13/23 Roma Bender FNP [address] [place] [address] PCP - General Family Medicine 01/14/23 12/06/23 Lesia Tran MD [address] [place] [address] PCP - General Internal Medicine 12/07/23 Neetu Bah AGNP [address] [place] [phone] Family Medicine 01/14/23 09/02/23 Carlos Muñiz, RN [address] [place] [address] Registered Nurse Family Medicine 09/05/24 09/05/24 Carlos Muñiz, RN [address] [place] [address] Registered Nurse Family Medicine 09/06/24 Jennifer Burgess 09/07/24 documented as of this encounter
--- OUTSIDE RECORDS SUMMARY | 2024-12-15 12:27 | XMS_ITS | Encounter Summary ---
Author Organization [employer] Address [address] [place] [address] 7t [place] [address] Care Team Providers Care Prom Burn Off Operator Name Role Phone Lesia Tran MD Primary Care Provider + Carlos Muñiz RN Unavailable [phone] Carlos Muñiz RN Unavailable [phone] Jennifer Burgess Unavailable Reason for Visit * Reason Onset Date Comments Nurse Triage 06/16/2024 Encounter Details Date Type Department Care Team (Late st Contact Info) Description 06/16/2024 Telephone [facility] MEDICINE [address] [place], [place] [phone] Lesia Tran MD [address] [place], [place] [phone] Nurse Triage Social History Tobacco Use Types [...] the past 12 months, has t he [employer], gas, oil or water [employer] threatened to shut off services in your [...] appt from yesterday as he was in [facility] ED ( note requested) Patient [...] agreement to reach out to [facility] and Crisis as needed. Has concerns [...] with Care Coordinators here at [facility] and is requesting additional help. Patient agrees to have [facility] reach out to him with worsening symptoms. Has previously [facility] to [facility] sent. Disposition reviewed and patient [...] - 06/16/2024 10:29 AM EDT Please obtain [facility] ED note from visit on 06/15/24. Patient scheduled with PCP on Wednesday06/20/24. * Telephone Encounter - Kenisha Mtz - 06/16/2024 9:52 AM EDT Symptoms: Abdominal Pain - Male, Abdominal Swelling Outcome: Schedule an urgent appointment (within 4 hours) or talk to a nurse or provider soon Reason: Started within the past 3 days The caller accepted this outcome. [phone] documented in this encounter Plan of Treatment Upcoming Encounters Date Type Department Care Team (Late st Contact Info) Description 02/07/2025 11:30 AM EST Office Visit [facility] MEDICINE [address] [place] [address] Lesia Tran MD [address] [place] [address] documented as of this encounter Visit Diagnoses Not on filedocumented in this encounter Additional Health Concerns Assessment Noted Time PHQ-9 Depression Total Score: 21 024 2:23 PM EST documented as of this encounter Care Teams Prom Burn Off Operator Relationship Specialty Start Date End Date Lesia Tran MD [address] [place] [address] PCP - General Internal Medicine 12/07/23 Carlos Muñiz RN [address] [place] [address] Registered Nurse Family Medicine 09/05/24 09/05/24 Carlos Muñiz RN [address] [place] [address] Registered Nurse Family Medicine 09/06/24 Jennifer Burgess 09/07/24 documented as of this encounter
--- OUTSIDE RECORDS SUMMARY | 2024-12-15 12:27 | XMS_ITS | Encounter Summary ---
Author Organization [employer] Address [address] [place] [address] [address]t [place] [address] Care Team Providers Care Field Contractor Name Role Phone Neetu Bah Primary Care Provider Roma BenderP Primary Care Provider [phone] Neetu Bah Unavailable [phone] Lesia Tran MD Primary Care Provider + Carlos Muñiz RN Unavailable [phone] Carlos Muñiz RN Unavailable [phone] Jennifer Burgess Unavailable Reason for Visit * Reason Onset Date Comments New Patient 11/18/2022 Encounter Details Date Type Department Care Team (Late st Contact Info) Description 11/18/2022 Telephone [facility] MEDICINE [address] [place], [place] [phone] Koby Holland MD [address] [place], [place] [phone] New Patient Social History Tobacco Use Types [...] been transfer over to wait list for [employer]. EFFECTIVE SINCE 11/24/2022 * Telephone Encounter - Lisa Lopes - 11/18/2022 10:33 AM EDT Tc to Pt , informed that we do take insurance, but must call [employer] to change location. Once done, to please call back to facility at [phone] documented in this encounter Plan of Treatment Upcoming Encounters Date Type Department Care Team (Late st Contact Info) Description 02/07/2025 11:30 AM EST Office Visit [facility] MED[facility] [address] [place] [address] Lesia Tran MD [address] [place] [address] documented as of this encounter Visit Diagnoses Not on filedocumented in this encounter Care Teams Field Contractor Relationship Specialty Start Date End Date Neetu Bah AGNP [address] [place] [phone] PCP - General Family Medicine 11/28/20 01/13/23 Roma Bender FNP [address] [place] [address] PCP - General Family Medicine 01/14/23 12/06/23 Lesia Tran MD [address] [place] [address] PCP - General Internal Medicine 12/07/23 Neetu Bah AGNP [address] [place] [phone] Family Medicine 01/14/23 09/02/23 Carlos Muñiz, RN [address] [place] [address] Registered Nurse Family Medicine 09/05/24 09/05/24 Carlos Muñiz RN [address] [place] [address] Registered Nurse Family Medicine 09/06/24 Jennifer Burgess 09/07/24 documented as of this encounter
--- OUTSIDE RECORDS SUMMARY | 2024-12-15 12:27 | XMS_ITS | Encounter Summary ---
Author Organization [employer] Address [address] [place] [address] 7t [place] [address] Care Team Providers Care Development Spec Name Role Phone Lesia Tran MD Primary Care Provider + Carlos Muñiz RN Unavailable [phone] Carlos Muñiz RN Unavailable [phone] Jennifer Burgess Unavailable Reason for Visit * Reason Onset Date Comments rs appt/disconnected call 06/29/2024 Encounter Details Date Type Department Care Team (Late st Contact Info) Description 06/29/2024 Telephone [facility] ADULT DENTAL [address] [place] [address] Trenton Wilkerson DDS [address] [place] [address] rs appt/disconnected call Social History Tobacco Use [...] was on the line with front end mechanic [facility] the patient disconnected the call.. The appt [...] 11:30 AM EST Office Visit [facility] [address] [place] [address] Lesia Tran MD [address] [place] [address] documented as of this encounter Visit Diagnoses Not on filedocumented in this encounter Additional Health Concerns Assessment Noted Time PHQ-9 Depression Total Score: 21 06/09/ 024 2:23 PM EST documented as of this encounter Care Teams Development Spec Relationship Specialty Start Date End Date Lesia Tran MD [address] [place] [address] PCP - General Internal Medicine 12/07/23 Carlos Muñiz, RN [address] [place] [address] Registered Nurse Family Medicine 09/05/24 09/05/24 Carlos Muñiz, RN [address] [place] [address] Registered Nurse Family Medicine 09/06/24 Jennifer Burgess 09/07/24 documented as of this encounter
--- OUTSIDE RECORDS SUMMARY | 2024-12-15 12:27 | XMS_ITS | Encounter Summary ---
Author Organization [employer] Address [address] [place] [address] 7t [place] [address] Care Team Providers Care Production Stage Manager Name Role Phone Roma Bender Primary Care Provider [phone] Neetu Bah Unavailable [phone] Lesia Tran MD Primary Care Provider + Carlos Muñiz RN Unavailable [phone] Carlos Muñiz RN Unavailable [phone] Jennifer Burgess Unavailable Reason for Visit * Reason Onset Date Comments Medication Question 05/04/2023 Encounter Details Date Type Department Care Team (Late st Contact Info) Description 05/04/2023 Telephone [facility] [address] [place] [address] Roma Bender FNP [address] [place] [address] Medication Question Social History Tobacco Use Types [...] 2 times daily. Any questions please contact [phone]. documented in this encounter Plan of Treatment Upcoming Encounters Date Type Department Care Team (Late st Contact Info) Description 02/07/2025 11:30 AM EST Office Visit [facility] [address] [place], [place] [phone] Lesia Tran MD [address] [place] [address] documented as of this encounter Visit Diagnoses Not on filedocumented in this encounter Additional Health Concerns Assessment Noted Time PHQ-9 Depression Total Score: 11 023 3:14 PM EDT documented as of this encounter Care Teams Production Stage Manager Relationship Specialty Start Date End Date Roma Bender FNP [address] [place] [address] PCP - General Family Medicine 01/14/23 12/06/23 Lesia Tran MD [address] [place] [address] PCP - General Internal Medicine 12/07/23 Neetu Bah AGNP [address] [place] [phone] Family Medicine 01/14/23 09/02/23 Carlos Muñiz, ROXANN [address] [place] [address] Registered Nurse Family Medicine 09/05/24 09/05/24 Carlos Muñiz, ROXANN [address] [place] [address] Registered Nurse Family Medicine 09/06/24 Jennifer Burgess 09/07/24 documented as of this encounter
--- OUTSIDE RECORDS SUMMARY | 2024-12-15 12:27 | XMS_ITS | Clinical Summary ---
Author Organization [employer] Address [address] [facility] [address] [address] [place] [address] Care Team Providers Care Wooden Boat Builder Name Role Phone Andrea Amor MD Primary Care Provider + Carlos Muñiz RN Unavailable [phone] Jennifer Burgess Unavailable Allergies Active Allergy Reactions [...] and at bedtime for anxiety. Active pancrelipase, Awu-Vine-Ouky, (Creon) 84338-73678 units capsule Take 2 capsules by mouth [...] PM EST): [facility] Mild persistent asthma 02/11/2024 Assessment & Plan (02/11/2024 4:00 PM EST): Doing well on Breo, fu by [facility] pulmonary Advised re weight reduction. Declined Influenza [...] Plan (02/11/2024 4:01 PM EST): FU by [facility] GI, on Protonix, senna prn constipation Advised [...] moderate intensity exercise. Will hold referral to national service officer until next appointment once anxiety is better [...] ID: Yaniv is a 37 y.o. [place] choose not to disclose-identified cis- male (pronouns [...] for 2.5 years, currently on methadone at [facility], 128mg with a plan on taper down [...] intervention , [facility], and Patient to reach [...] he will follow-up with the [facility] and [facility]. His [facility] assist with methadone administration, pharmaco [...] vaping cannabis Advised to reach out to disaster recovery manager at the methadone program, avoid using any other recreational substance or alcohol Assessment & Plan (07/27/2024 2:58 PM EDT): >>ASSESSMENT AND PLAN FOR ANXIETY WRITTEN ON 02/11/2024 4:04 PM BY ANDREA AMOR MD Seen by MH provider at [facility], will bring meds at next appt. He feels safe at home and is able to reach out for safety. Assessment & Plan (06/20/2024 1:14 PM EDT): Recently started seeing psychiatry and medications, advised to fu closely with them next week. Advised to cut down on vaping cannabis. Pt feels safe at home, advised to reach out to therapist or disaster recovery manager (he will request one at methadone program). Advised against using recreational substances or alcohol. Pt will see therapist this afternoon. Routine health maintenance 05/29/2023 Assessment & Plan (05/29/2023 2:23 PM EST): -Pt brought labs done by his [facility] in 04/06/2023 hb 11.7,chem was [...] 248 Pt brought labs done by his [facility] in 04/06/2023 hb 11.7,chem was [...] PM EST): Doing well on Methadone at [facility], has take home bottles Advised to decrease use of THC Encounters Date Type Department Care Team Description 12/07/2024 Patient Outreach [address] [address] Andrea Amor MD 12/05/2024 12:00 PM EDT Office Visit [facility] [address] [place] [phone] Andrea Amor MD Generalized anxiety disorder with panic attacks (Primary Dx); Stress incontinence of urine; Morbid obesity ([facility]/HCC) 12/05/2024 Travel 12/04/2024 Travel 11/29/2024 Telephone [facility] [address] [place] [phone] Andrea Amor MD Chart Prep 11/24/2024 Patient Outreach [address] [address] Andrea Amor MD 11/21/2024 Patient Outreach [address] [address] Andrea Amor MD 11/17/2024 Patient Outreach [address] [address] Andrea Amor MD Care Management (C3- Follow Up Call # 3) 11/15/[address] [address] Andrea Amor MD IZ 11/09/2024 9:00 AM EDT Office Visit [facility] [address] [place] [address] [phone] Clem, Ailyn, OD Myopia, bilateral (Primary Dx) 11/02/2024 Patient Outreach [address] [address] Andrea Amor MD Care Coordination (C3 -W Jennifer Burgess telephone call outreach) 10/31/2024 Telephone [facility] [address] [place] [address] Cheryl Watts, HISTOLOGY SUPERVISOR Follow-up 10/31/2024 Patient Outreach [facility] [address] [place] [address] Andrea Amor MD Care Management (C3CM- follow up call # 2) 10/24/2024 Orders Only GENERIC EXTERNAL DATA DEPARTMENT Provider, Generic External Data 10/23/2024 11:00 AM EDT Office Visit [facility] [address] [place] [address] Trenton Wilkerson, SHELLI Mild persistent asthma, unspecified whether complicated 10/23/2024 Refill [facility] [address] [place] [phone] Andrea Amor MD 10/22/2024 Travel 10/20/2024 Telephone [facility] [address] [place] [address] Andrea Amor MD Durable Medical Equipment (DME RX Pullup, Bathroom Grab Bars, Shower Bench(L&C)) 10/18/2024 Orders Only GENERIC EXTERNAL DATA DEPARTMENT Provider, Generic External Data 10/16/2024 Patient Outreach [facility] [address] [place] [phone] Andrea Amor MD Care Coordination (C3 CM-W Jennifer Burgess telephone call outreach/) 10/15/2024 Orders Only GENERIC EXTERNAL DATA DEPARTMENT Provider, Generic External Data 10/11/2024 Refill [facility] [address] [place] [phone] Andrea Amor MD 10/02/2024 1:00 PM EDT Office Visit [facility] [address] [place] [address] Mariah Villaseñor, OD Myopia, bilateral (Primary Dx) 10/02/2024 Travel 09/29/2024 Patient Outreach [facility] [address], [place] [phone] Andrea Amor MD 09/29/2024 Patient Outreach [facility] [address] [place] [phone] Andrea Amor MD Care Coordination 09/28/2024 Patient Outreach [address] [address] Andrea Amor MD Care Management ([facility]- Follow up call # 1) 09/26/2024 Results Follow-Up [address] [address] Andrea Amor MD Sed Rate by Modified Westergren, Rheumatoid Factor, Drug Monitoring, Panel 1, Screen, Urine, Additional followed-up results: 2 09/26/2024 Results Follow-Up [address] [address] Andrea Amor MD TSH with Reflex to Free T4, Lipid Panel with Reflex to Direct LDL 09/22/[address] [address] Andrea Amor MD Referral 09/22/[address] [address] Andrea Amor MD Durable Medical Equipment 09/20/2024 3:30 PM EDT Office Visit [facility] [address] [place] [phone] Trenton Wilkerson DDS Complete edentulism, unspecified edentulism class (Primary Dx) 09/19/2024 2:00 PM EDT Office Visit [address] [address] Andrea Amor MD Generalized anxiety disorder with panic attacks (Primary Dx); Severe episode of recurrent major depressive disorder, without psychotic features (CMS/HCC); Acute right-sided low back pain with right-sided sciatica; Upper GI bleeding 09/19/2024 Orders Only GENERIC EXTERNAL DATA DEPARTMENT Provider, Generic External Data 09/19/2024 Travel 09/18/2024 Patient Outreach [address] [phone] Andrea Amor MD 09/18/[address] [address] Andrea Amor MD chart prep from Last 3 Months Immunizations Immunization Administration [...] with others, in a hotel, in a long term, living outside on the street, on a [...] the past 12 months, has t he [employer], gas, oil or water [employer] threatened to shut off services in your [...] Description 02/07/2025 11:30 AM EST Office Visit [facility] [address], [place] [phone] Andrea Amor MD [address] [place], [place] [phone] Health Maintenance Due Date Last Done Comments Dental Prophylaxis 1985 Family Planning (PISQ) 06/23/2002 HPV Vaccines (1 - Male 3-dose series) 06/23/2002 Pneumococcal Vaccine: Pediatrics (0 to 5 Years) and At-Risk Patients (6 to 49) Years (1 of 2 - PCV) 06/23/2006 Dental X-Ray: Bitewings 02/21/2015 02/20/2014 Dental Oral Exam 10/11/2024 04/12/2024, 02/20/2014 COVID-19 Vaccine ( season) 2024 09/11/2020, 07/30/2020 Influenza Vaccine (#1) 2024 , 01/28/2022, 07/14/2021 Depression Monitoring 03/14/2025 09/12/2024, 025 Diabetes: Hemoglobin A1C 06/20/2025 06/20/2024, 03/0 08/2023 SDOH Screening 09/12/2025 09/12/2024 Alcohol/Substance Use [...] Bilirubin, Total 0.3 0.0 - 1.0 mg/dL [facility] Bilirubin, Direct 0.1 0.0 - 0.5 mg/dL [facility] Aspartate Amino Transferase 31 5 - 37 U/L [facility] Alanine Aminotransferase 29 0 - 40 U/L [facility] Total Protein 7.6 6.5 - 8.0 g/dL [facility] Albumin Level 3.7 3.5 - 5.0 g/dL [facility] Alkaline Phosphatase 121(H) 39 - 117 U/L [facility] 10/24/2024 10:3 2 PM EDT 10/24/2024 10:46 PM EDT us Generic External Data Provider LAB BLOOD ORDERAB LES Final Result [facility] [address] [place] [phone] * (ABNORMAL) Basic Metabolic Panel (10/24/2024 10:32 PM EDT) Only the most recent of2 resultswithin the time period is included. Sodium 139 135 - 145 mmol/L [facility] Potassium 4.5 3.3 - 5.1 mmol/L [facility] Chloride 100 96 - 108 mmol/L [facility] Carbon Dioxide 31(H) 22 - 29 mmol/L [facility] Anion Gap 13 12 - 20 [facility] Urea Nitrogen (BUN) 10 9 - 16 mg/dL [facility] Creatinine, Serum 0.82 0.5 - 1.4 mg/dL [facility] Creatinine Clr Calc Pharmacy 167.8 [facility] Comment:eGFR (calculated fro m the MDRD study equation) and eCrCl(calculated from the Cockcroft-Gault equation) are based ondifferent parameters and may not yield comparable results.If eCrCl result is absurd, please check patient'sheight/weight. Estimated Glomerular Filt Rate >60 [facility] Comment:Chronic Kidney Disea se: Estimated GFR < 60 mL/min/1.49q5Tejncq Kidney Disease: Estimated GFR < 15 mL/min/1.73m2 Glucose 107 60 - 115 mg/dL [facility] Calcium 8.7 8.4 - 10.2 mg/dL [facility] 10/24/2024 10:3 2 PM EDT 10/24/2024 10:46 PM EDT us Generic External Data Provider LAB BLOOD ORDERAB LES Final Result [facility] [address] [place] [phone] * (ABNORMAL) CBC auto differential (10/24/2024 9:41 PM EDT) Only the most recent of2 resultswithin the time period is included. White Blood Count 14.9(H) 4.8 - 10.8 X10*3/uL [facility] Red Blood Count 4.57(L) 4.60 - 5.80 X10*6/uL [facility] Hemoglobin 12.1(L) 14.0 - 18.0 g/dl [facility] Hematocrit 38.2(L) 42.0 - 52.0 % [facility] Mean Corpuscular Volume 83.6 80.0 - 98.0 fL [facility] Mean Corpuscular Hemoglobin 26.5(L) 27.0 - 33.0 pg [facility] Mean Corpuscular HGB Conc 31.7 31.0 - 36.0 g/dl [facility] Red Cell Distribution Width 16.0 11.0 - 16.0 % [facility] Platelet Count 286 160 - 400 X10*3/uL [facility] Mean Platelet Volume 8.4(L) 9.4 - 12.4 fL [facility] Neutrophils Percent Auto 78.1(H) 45 - 73 % [facility] Imm Gran Pct Auto 0.8(H) 0.0 - 0.4 % [facility] Lymphocytes Percent Auto 9.1(L) 20 - 40 % [facility] Monocytes Percent Auto 8.2 2 - 11 % [facility] Eosinophils Percent Auto 3.5 0 - 4 % [facility] Basophils Percent Auto 0.3 0 - 2 % [facility] NRBC Pct Auto 0.0 0.0 - 0.2 /100WBC [facility] Neutrophils Absolute Auto 11.6(H) 2.0 - 8.3 x10*3/uL [facility] Imm Gran Abs Auto 0.12(H) 0.00 - 0.03 X10*3/uL [facility] Lymphocytes Absolute Auto 1.4 1.2 - 4.9 X10*3/uL [facility] Monocytes Absolute Auto 1.2 0.1 - 1.2 X10*3/uL [facility] Eosinophils Absolute Auto 0.5(H) 0.0 - 0.4 X10*3/uL [facility] Basophils Absolute Auto 0.1 0.0 - 0.2 X10*3/uL [facility] NRBC Abs Auto 0.000 0.0 - 0.012 X10*3/uL [facility] 10/24/2024 9:41 PM EDT 10/24/2024 9:48 PM EDT us Generic External Data Provider LAB BLOOD ORDERAB LES Final Result [facility] [address] [place] [phone] * Ethanol (10/18/2024 11:28 AM EDT) ETHANOL (MG/DL) IN SER/PLAS <10 mg/dL [facility] Comment:Serum/plasma ethanol results are to be used formedical/treatment purposes only. 10/18/2024 11:2 8 AM EDT 10/18/2024 11:35 AM EDT Generic External Data Provider LAB BLOOD ORDERAB LES Final Result Performing Organization Address [facility] Co de Phone Number [facility] [address] [place] [phone] * Magnesium (10/18/2024 11:28 AM EDT) Pathologist [facility] Magnesium 2.0 1.6 - 2.6 mg/dL [facility] 10/18/2024 11:2 8 AM EDT 10/18/2024 11:35 AM EDT Generic External Data Provider LAB BLOOD ORDERAB LES Final Result Performing Organization Address [facility] Co de Phone Number [facility] [address] [place] [phone] * Lipase (10/18/2024 11:28 AM EDT) Pathologist [facility] Lipase 14 8 - 78 U/L [facility] 10/18/2024 11:2 8 AM EDT 10/18/2024 11:35 AM EDT Generic External Data Provider LAB BLOOD ORDERAB LES Final Result Performing Organization Address [facility] de Phone Number [facility] [address] [place] [phone] * (ABNORMAL) Comprehensive Metabolic Panel (10/18/2024 11:28 AM EDT) Pathologist [facility] Sodium 135 135 - 145 mmol/L [facility] Potassium 4.5 3.3 - 5.1 mmol/L [facility] Chloride 99 96 - 108 mmol/L [facility] Carbon Dioxide 28 22 - 29 mmol/L [facility] Anion Gap 13 12 - 20 [facility] Urea Nitrogen (BUN) 15 9 - 16 mg/dL [facility] Creatinine, Serum 0.89 0.5 - 1.4 mg/dL [facility] Creatinine Clr Calc Pharmacy 139.9 [facility] Comment:eGFR (calculated fro m the MDRD study equation) and eCrCl(calculated from the Cockcroft-Gault equation) are based ondifferent parameters and may not yield comparable results.If eCrCl result is absurd, please check patient'sheight/weight. Estimated Glomerular Filt Rate >60 [facility] Comment:Chronic Kidney Disea se: Estimated GFR < 60 mL/min/1.61u6Ilrnuj Kidney Disease: Estimated GFR < 15 mL/min/1.73m2 Glucose 107 60 - 115 mg/dL [facility] Calcium 8.8 8.4 - 10.2 mg/dL [facility] Bilirubin, Total 0.5 0.0 - 1.0 mg/dL [facility] Aspartate Amino Transferase 33 5 - 37 U/L [facility] Alanine Aminotransferase 38 0 - 40 U/L [facility] Total Protein 8.2(H) 6.5 - 8.0 g/dL [facility] Albumin Level 4.1 3.5 - 5.0 g/dL [facility] Alkaline Phosphatase 143(H) 39 - 117 U/L [facility] 10/18/2024 11:2 8 AM EDT 10/18/2024 11:35 AM EDT us Generic External Data Provider LAB BLOOD ORDERAB LES Final Result [facility] [address] [place] [phone] * XR Chest 2 Views (10/15/2024 11:55 AM EDT) Anatomical Region Laterality Modality Chest Radiographic Elizabet ging 10/15/2024 11:5 5 AM EDT Narrative 10/15/2024 11:57 AM EDT [address] [address] XRay Report Signed Patient: Yaniv Gutierrez MR#: [id number] : 1985 Acct:[id number] Age/Sex: 39 / M ADM Date: 10/15/24 Loc: .ED Attending Dr: Ordering Physician: Layo Serrano DO Date of Service: 10/15/24 Procedure(s): XR chest 2V Accession Number(s): [id number] cc: Andrea Amor MD; Layo Serrano DO [...] OV> 10/15/24 1156 DD/ 1155 TD/TT: 10/15/24 115 Motor Generator Set Operator: Procedure Note Donotuseinterpreter, Image - 10/15/[address] [address] XRay Report Signed Patient: Yaniv Gutierrez GMR#: [id number] : 1985Acct:[id number] Age/Sex: 39 / MADM Date: 10/15/24 Loc: .ED Attending Dr: Ordering Physician: Layo Serrano DO Date of Service: 10/15/24 Procedure(s): XR chest 2V Accession Number(s): [id number] cc: Andrea Amor MD; Layo Serrano DO [...] 10/15/24 1156 DD/ 1155 TD/TT: 10/15/24 1155 Motor Generator Set Operator: [facility] External Provider IMG XR PROCEDURES Final Result * (ABNORMAL) Drug Monitoring, Panel 1, Screen, Urine (10/15/2024 11:01 AM EDT) Only the most recent of2 resultswithin the time period is included. Opiate Screen Urine Not Detected Not Detect [facility] Comment:Opiate cut-off is 30 0 ng/mL.Positive results are unconfirmed and should not be used fornon-medical purposes. Barbiturates, Urine Not Detected Not Detect [facility] Comment:Barbiturate cut-off is 200 ng/mL.Positive results are unconfirmed and should not be used fornon-medical purposes. Phencyclidine Screen Urine Not Detected Not Detect [facility] Comment:Phencyclidine cut-of f is 25 ng/mL.Positive results are unconfirmed and should not be used fornon-medical purposes. Amphetamine Screen Urine Not Detected Not Detect [facility] Comment:Amphetamine cut-off is 1000 ng/mL.Positive results are unconfirmed and should not be used fornon-medical purposes. Benzodiazepines Screen Urine Not Detected Not Detect [facility] Comment:Benzodiazepine cut-o ff is 200 ng/mL.Positive results are unconfirmed and should not be used fornon-medical purposes. Cocaine Screen Urine Not Detected Not Detect [facility] Comment:Cocaine cut-off is 3 00 ng/mL.Positive results are unconfirmed and should not be used fornon-medical purposes. Cannabinoid Screen Urine POSITIVE(A) Not Detect [facility] Comment:Cannabinoid cut-off is 50 ng/mL.Positive results are unconfirmed and should not be used fornon-medical purposes. Methadone Screen, Urine Positive(A) Not Detect ng/mL [facility] Comment:Methadone cut-off is 300 ng/mL.Positive results are unconfirmed and should not be used fornon-medical purposes. FENTANYL URINE Not Detected Not Detect [facility] Comment:Fentanyl cut-off is 1 ng/mL.Positive results are unconfirmed and should not be used fornon-medical purposes. Oxycodone Urine Screen Not Detected Not Detect ng/mL [facility] Comment:Oxycodone cut-off is 100 ng/mL.Positive results are unconfirmed and should not be used fornon-medical purposes. Buprenorphine Screen Not Detected Not Detect ng/mL [facility] Comment:Buprenorphine cut-of f is 5 ng/mL.Positive results are unconfirmed and should not be used fornon-medical purposes. 10/15/2024 11:0 1 AM EDT 10/15/2024 11:06 AM EDT Generic External Data Provider LAB URINE ORDERAB LES Final Result Performing Organization Address [facility]/ZIP Co de Phone Number [facility] [address] [place] [phone] * Culture, Urine, Routine (10/15/2024 11:01 AM EDT) Urine Urine specimen obtained by clean catch procedure / Unknown 10/15/2024 11:01 AM EDT 10/15/2024 11:06 AM EDT Comment:[facility] Narrative [facility] - 10/16/2024 12:22 PM EDT Urine Culture No growth. Specimen Source: Urine clean catch Generic External Data Provider LAB MICROBIOLOGY - GENERAL ORDERABLES Final Result Performing Organization Address City/[facility] Co de Phone Number [facility] [address] [place] [phone] * (ABNORMAL) CRP, HIGH SENSITIVITY (09/19/2024 3:15 PM EDT) CRP, High Sensitivity 10.1(A) mg/L [facility] Comment: Reference RangeOptimal <1.0Sara PATEL et al. Endocr Pract.2017;23(Suppl 2):1- 87.For ages [...] health practice:A statement for healthcare professionals from theSouthwest General Health Centerers for Disease Control and Prevention and theAmerican Heart Association. Circulation 2003; 107(3):499-511.THIS TEST WAS PERFORMED AT:[employer] [place] [phone] AMAYA MD 09/19/2024 3:15 PM EDT 09/19/2024 4:07 PM EDT us Generic External Data Provider LAB BLOOD ORDERAB LES Final Result Performing Organization Address City/[facility]/ZIP Co de Phone Number [facility] [address] [place] [phone] * TSH with Reflex to Free T4 (09/19/2024 3:15 PM EDT) TSH reflex Free T4 1.41 0.32 - 4.0 uIU/mL [facility] Blood 09/19/2024 3:15 PM EDT 09/19/2024 4:08 PM EDT us Andrea Amor MD LAB BLOOD ORDERABLES Fin al Result [facility] [address] [place] [phone] * (ABNORMAL) Lipid Panel with Reflex to Direct LDL (09/19/2024 3:15 PM EDT) Triglycerides 304(H) <150 mg/dL [facility] Comment:Desirable Triglyceri de: less than 150 mg/dLBorderline High Triglyceride 150-199 mg/dLHigh Triglyceride: 200-499 mg/dLVery High Triglyceride: greater than or equal to 5OO mg/dL Cholesterol 184 <200 mg/dL [facility] Comment:Desirable Cholestero l: less than 200 mg/dLBorderline High Cholesterol: 200-239 mg/dLHigh Cholesterol: greater than 239 mg/dL LDL Cholesterol Calculated 81 <100 mg/dL [facility] Comment:Desirable LDL: less than 100 mg/dLNear Optimal/Above Optimal LDL: 110- 129 mg/dLBorderline High LDL: 130-159 mg/dLHigh LDL: 160-189 mg/dLVery High LDL: greater than or equal to 190 mg/dL HDL Cholesterol 43 >40 mg/dL [facility] Comment:Desirable HDL: great er than 40 mg/dL Note: This HDL assay may give artificially low results in patients with liver disease. Blood 09/19/2024 3:15 PM EDT 09/19/2024 4:08 PM EDT us Andrea Amor MD LAB BLOOD ORDERABLES Fin al Result [facility] [address] [place] [phone] * (ABNORMAL) Sed Rate by Modified Manren (09/19/2024 3:15 PM EDT) Erythrocyte Sedimentation Rate 38(H) 0 - 15 MM/HR [facility] Comment:Patients with polycy themia and many hemoglobin abnormalitiesmay have depressed sed rates whereas patients with anemiamay have elevated sed rates. 09/19/2024 3:15 PM EDT 09/19/2024 4:08 PM EDT us Generic External Data Provider LAB BLOOD ORDERAB LES Final Result Performing Organization Address City/[facility]/ZIP Co de Phone Number [facility] [address] [place] [phone] * Rheumatoid Factor (09/19/2024 3:15 PM EDT) Pathologist [facility] Rheumatoid Factor <13.0 <15.0 IU/mL [facility] 09/19/2024 3:15 PM EDT 09/19/2024 4:08 PM EDT Generic External Data Provider LAB BLOOD ORDERAB LES Final Result Performing Organization Address [facility] Co de Phone Number [facility] [address] [place] [phone] * ANDREA Screen,IFA, with Reflex to Titer and Pattern (09/19/2024 3:15 PM EDT) Anti Nuclear Antibody Screen NEGATIVE NEGATIVE [facility] Comment:ANDREA IFA is a first l [...] clinicallysuspected inflammatory myopathies.AC-0: NegativeInternational Consensus on ANDREA Patterns(https://doi.org/10.1515/zxna-6085-4955)For additional information, please refer tohttp://education.Nightpro/faq/VAS771(This link is being provided for informational/educational purposes only.)THIS TEST WAS PERFORMED AT:[facility] [place] [phone] AMAYA MD ANDREA Titer TNP [facility] ANDREA Pattern [facility]A TITER 2 (REF LAB) [facility] ANDREA Pattern 2 [facility] TITER 3 [facility] ANDREA PATTERN 3 [facility] 09/19/2024 3:15 PM EDT 09/19/2024 4:07 PM EDT us Generic External Data Provider LAB BLOOD ORDERAB LES Final Result [facility] [address] [place] [phone] * POCT HGB A1C (06/20/2024 12:05 PM EDT) Hemoglobin A1C 6.0 4.0 - 6.0 % QC Media Lot # [id number] Lot# Expiration Date Blood 06/20/2024 12:0 5 PM EDT us Andrea Amor MD POINT OF CARE TEST ENTER /EDIT ORDERABLES Final Result from Last 3 Months or Most Recently Relevant to Health Maintenance Insurance [facility] C[place] ST[place] AD[place] Care Teams Wooden Boat Builder Relationship Specialty Start Date End Date Andrea Amor MD [address] [place] [address] PCP - General Internal Medicine 12/07/23 Carlos Muñiz, RN [address] [place] [address] Registered Nurse Family Medicine 09/06/24 Jennifer Burgess 09/07/24
--- OUTSIDE RECORDS SUMMARY | 2024-12-15 12:27 | XMS_ITS | Encounter Summary ---
Author Organization [employer] Address [address] [place] [address] 7t [place] [address] Care Team Providers Care Fountain Worker Name Role Phone Neetu Bah Primary Care Provider Roma BenderP Primary Care Provider [phone] Neetu Bah Unavailable [phone] Lesia Tran MD Primary Care Provider + Carlos Muñiz RN Unavailable [phone] Carlos Muñiz RN Unavailable [phone] Jennifer Burgess Unavailable Encounter Details Date Type Department Care Team (Late st Contact Info) Description 09/29/2022 Abstract [facility] ADULT DENTAL [address] [place] [address] Trenton Wilkerson DDS [address] [place] [address] Social History Tobacco Use Types Packs/Day Years [...] 02/07/2025 11:30 AM EST Office Visit [facility] MEDICINE [address] [place] [address] Lesia Tran MD [address] [place] [address] documented as of this encounter Visit Diagnoses Not on filedocumented in this encounter Care Teams Fountain Worker Relationship Specialty Start Date End Date Neetu Bah AGNP [address] [place] [phone] PCP - General Family Medicine 11/28/20 01/13/23 Roma Bender FNP [address] [place] [address] PCP - General Family Medicine 01/14/23 12/06/23 Lesia Tran MD [address] [place] [address] PCP - General Internal Medicine 12/07/23 Neetu Bah AGNP [address] [place] [phone] Family Medicine 01/14/23 09/02/23 Carlos Muñiz, RN [address] [place] [address] Registered Nurse Family Medicine 09/05/24 09/05/24 Carlos Muñiz, RN [address] [place] [address] Registered Nurse Family Medicine 09/06/24 Jennifer Burgess 09/07/24 documented as of this encounter
--- OUTSIDE RECORDS SUMMARY | 2024-12-15 12:27 | XMS_ITS | Encounter Summary ---
Author Organization [employer] Address [address] [place] [address] [address]t [address] Floor [address] Care Team Providers Care Clinical Research Monitor Name Role Phone Neetu Bah Primary Care Provider Roma BenderP Primary Care Provider [phone] Neetu Bah Unavailable [phone] Lesia Tran MD Primary Care Provider + Carlos Muñiz RN Unavailable [phone] Carlos Muñiz RN Unavailable [phone] Jennifer Burgess Unavailable Encounter Details Date Type Department Care Team (Late st Contact Info) Description 09/28/2022 Abstract [facility] ADULT DENTAL [address] [place] [address] Trenton Wilkerson DDS [address] [place] [address] Social History Tobacco Use Types Packs/Day Years [...] Description 02/07/2025 11:30 AM EST Office Visit [facility] MEDICINE [address] [place] [address] Lesia Tran MD [address] [place] [address] documented as of this encounter Visit Diagnoses Not on filedocumented in this encounter Care Teams Clinical Research Monitor Relationship Specialty Start Date End Date Neetu Bah AGNP [address] [place] [phone] PCP - General Family Medicine 11/28/20 01/13/23 Roma Bender FNP [address] [place] [address] PCP - General Family Medicine 01/14/23 12/06/23 Lesia Tran MD [address] [place] [address] PCP - General Internal Medicine 12/07/23 Neetu Bah AGNP [address] [place] [phone] Family Medicine 01/14/23 09/02/23 Carlos Muñiz, RN [address] [place] [address] Registered Nurse Family Medicine 09/05/24 09/05/24 Carlos Muñiz, RN [address] [place] [address] Registered Nurse Family Medicine 09/06/24 Jennifer Burgess 09/07/24 documented as of this encounter
--- OUTSIDE RECORDS SUMMARY | 2024-12-15 12:27 | XMS_ITS | Encounter Summary ---
Author Organization [employer] Address [address] [facility] 7t [place] [address] Care Team Providers Care Welder Shielded Metal Arc Name Role Phone Roma Bender Primary Care Provider [phone] Neetu Bah Unavailable Lesia Tran MD Primary Care Provider + Carlos Muñiz RN Unavailable [phone] Carlos Muñiz RN Unavailable [phone] Jennifer Burgess Unavailable Encounter Details Date Type Department Care Team (Late st Contact Info) Description 02/19/2023 Orders Only [facility] [address] [place] [address] Roma Bender FNP [address] [place] [address] Other acute gastritis, presence of bleeding unspecified [...] Description 02/07/2025 11:30 AM EST Office Visit [facility] [address] [place] [address] Lesia Tran MD 230 [place] [address] documented as of this encounter Visit Diagnoses Diagnosis Other acute gastritis, presence of bleeding unspecified- Primary documented in this encounter Additional Health Concerns Assessment Noted Time PHQ-9 Depression Total Score: 11 023 3:14 PM EDT documented as of this encounter Care Teams Welder Shielded Metal Arc Relationship Specialty Start Date End Date Roma Bender FNP [address] [place] [address] PCP - General Family Medicine 01/14/23 12/06/23 Lesia Tran MD [address] [place] [address] [id number] PCP - General Internal Medicine 12/07/23 Neetu Bah AGNP [address] [place] [phone] Family Medicine 01/14/23 09/02/23 Carlos Muñiz, RN [address] [place] [address] Registered Nurse Family Medicine 09/05/24 09/05/24 Carlos Muñiz, ROXANN [address] [place] [address] Registered Nurse Family Medicine 09/06/24 Jennifer Burgess 09/07/24 documented as of this encounter
--- OUTSIDE RECORDS SUMMARY | 2024-12-15 12:27 | XMS_ITS | Encounter Summary ---
Author Organization [employer] Address [address] [place] [address] 7t [place] [address] Care Team Providers Care Electrolytic De Scaler Name Role Phone Lesia Tran MD Primary Care Provider + Carlos Muñiz RN Unavailable [phone] Carlos Muñiz RN Unavailable [phone] Jennifer Burgess Unavailable Reason for Visit * Reason Onset Date Comments Med Refill 05/15/2024 Encounter Details Date Type Department Care Team (Late st Contact Info) Description 05/15/[address] [facility] MEDICINE [address] [place], [place] [phone] Lesia Tran MD 230 [place] [address] Med Refill Social History Tobacco Use Types [...] 9:47 AM EST Medication was sent to [facility] #[id number] on 05/01/24 with 1 refill. * Telephone Encounter - Keinsha Mtz - 05/15/2024 9:43 AM EST TC from pt requesting medication refill. Medications needing refill : hydrOXYzine pamoate (Vistaril) 25 MG capsule To be sent to: [facility]/pharmacy #[id number] - [place] [address] documented in this encounter Plan of Treatment Upcoming Encounters Date Type Department Care Team (Late st Contact Info) Description 02/07/2025 11:30 AM EST Office Visit [facility] MEDICINE [address] [place] [address] Lesia Tran MD 230 [place] [address] documented as of this encounter Visit Diagnoses Not on filedocumented in this encounter Additional Health Concerns Assessment Noted Time PHQ-9 Depression Total Score: 21 024 2:23 PM EST documented as of this encounter Care Teams Electrolytic De Scaler Relationship Specialty Start Date End Date Lesia Tran MD 230 [place] [address] PCP - General Internal Medicine 12/07/23 Carlos Muñiz, RN 505 [place] [address] Registered Nurse Family Medicine 09/05/24 09/05/24 Carlos Muñiz RN [address] [place] [address] Registered Nurse Family Medicine 09/06/24 Jennifer Burgess 09/07/24 documented as of this encounter
--- OUTSIDE RECORDS SUMMARY | 2024-12-15 12:28 | XMS_ITS ---
Author Organization [employer] Address [address] [place] [address] 7t [place] [address] Care Team Providers Care Manager Plumbing Name Role Phone Lesia Tran MD Primary Care Provider + Carlos Muñiz RN Unavailable [phone] Jennifer Burgess Unavailable CM Complex Status:Enrolled (Active) Start date:09/06/2024 Enrollment date:09/07/2024 Enrollment reason:Other Overview Community Referral- Contacted by [facility] contact for patient with inpatient admission attributed to HHCthat requires assistance from CM program. Please see forwarded email for information and coordination of care with inpatient SW, Karen Burt at [facility]. He has recently been put on continuous O2 2L, hehas trouble ambulating and could also use nutrition education as well, Case Team Name Relationship Phone Carlos Muñiz RN(Responsible Staff) Registered Manny tanner [phone] Continued Care and Services Coordination
--- OUTSIDE RECORDS SUMMARY | 2024-12-15 12:28 | XMS_ITS ---
Author Organization [employer] Address [address] [place] [address] 7t [place] [address] Care Team Providers Care Software Licensing Analyst Name Role Phone Lesia Tran MD Primary Care Provider + Carlos Muñiz RN Unavailable [phone] Jennifer Burgess Unavailable CHW Complex Status:Enrolled (Active) Start date:09/07/2024 Enrollment date:09/12/2024 Overview Community Referral- Contact[facility] by [facility] contact for patient with inpatient admission attributed to HHCthat requires assistance from CM program. Please see forwarded email for information and coordination of care with inpatient SW, Karen Burt at [facility]. He has recently been put on continuous O2 2L, hehas trouble ambulating and could also use nutrition education as well, Case Team Name Relationship Phone Jennifer Burgess(Responsible Staff) Continued Care and Services Coordination
== END 2024-12-15 10:52 | disposition home or self-care (01) ==
LOC: HO.CT 10:51
PROVIDERS: PCP Internal Medicine; Visit Provider Nurse Practitioner Family
DX: Z87.01 Personal history of pneumonia (recurrent) (principal)
CPT/HCPCS: 71250

== ENCOUNTER → 2024-12-15 10:52 | Outpatient (BNV) | payer MEDICAID, SELFPAY | PROVIDERS: PCP Internal Medicine; Visit Provider Specialist | DX: Z87.01 Personal history of pneumonia (recurrent) (principal); K76.0 Fatty (change of) liver, not elsewhere classified | CPT/HCPCS: 71250 ==

== ENCOUNTER 2025-01-03 10:08 | Outpatient (REF) | payer MEDICAID, SELFPAY ==
--- NOTE | ~2025-01-03 | FL_ITS ---
EXAMINATION: Modified Barium Swallow CLINICAL INFORMATION: Dysphagia. COMPARISON: None. TECHNIQUE: Modified barium swallow was performed under lateral fluoroscopy with patient in standing position. Barium mixed with solids and liquids of different consistencies was administered by the speech pathologist. Examination was recorded in the fluoroscopy suite. FINDINGS: Patient was given several consistencies. There was no laryngeal penetration or subglottic aspiration. FLUOROSCOPY TIME: 1 minute 8 seconds Number of Spot Images: N/A DOSE AREA PRODUCT: 690 uGy-m2 (microgray-meter squared) FL/FL Modified Barium Swallow IMPRESSION: No evidence of laryngeal penetration or aspiration. Normal modified barium swallow examination. Please refer to the full speech therapy report to follow for further details. Electronically signed by: Compa Wilder MD 01/03/2025 10:57 AM EDT
--- OUTSIDE RECORDS SUMMARY | 2025-01-03 11:23 | XMS_ITS | Encounter Summary ---
Author Organization [employer] Address [address] [place] [address] 7t [place] [address] Care Team Providers Care Auto Glass Worker Name Role Phone Lesia Amor MD Primary Care Provider + Carlos Muñiz RN Unavailable [phone] Jennifer Burgess Unavailable Reason for Referral * Consultation (Routine) - Pending Review Specialty Diagnoses / Procedures Referred By Kevin fuentes Referred To Contact Urology Diagnoses Stress incontinence of urine Lesia Amor MD [address] [place] [address] Phone: tel: fax: Referral ID Status Reason Start Date Expiration Date Visits Requested Visits Authorized [id number] Pending Review Specialty Services Required 01/02/2025 01/02/2026 1 1 * Consultation (Routine) - Pending Review Specialty Diagnoses / Procedures Referred By Kevin fuentes Referred To Contact Cardiology Diagnoses Pulmonary edema without heart failure Lesia Amor MD [address] [place] [address] Phone: tel: fax: Referral ID Status Reason Start Date Expiration Date Visits Requested Visits Authorized [id number] Pending Review Specialty Services Required 01/02/2025 01/02/2026 1 1 Scheduling Instructions Please refer to [facility] cardiology, he is previous cardiology moved out of [facility]. Reason for Visit * Reason Comments Care Management C3CM- F/U call # 4 Encounter Details Date Type Department Care Team ([facility] st Contact Info) Description 12/19/2024 Patient Outreach [facility] MEDICINE [address] [place] [address] Lesia Amor MD [address] [place] [address] Care Management (C3CM- F/U call # 4) Social History Tobacco Use Types Packs/Day Years [...] as of this encounter Progress Notes * Carlos Muñiz RN - 12/19/2024 9:40 AM EDT CORRY Muñiz RN placed outbound call to patient. Patient's name, and address confirmed. Patient states is doing fine with no recent illnesses or emergency room visits. Patient reports that hereceived call from his chef under office informing him that office moved to [place]. Patient s cheduled an appointment for 01/31/25 but patient would like to be referred to [facility] cardiovascular [facility] [address] because that is where he also sees his GI provider and it would be more convenient for him than traveling to [place]. CM agreed to send message to PCP. Patient reports that his depression is getting worse. Patient reports that he has a therapist and a psychiatrist that he speaks with every month. Patient denies any SI/HI and has crisis # available. Patient reports that his barium swallow test is scheduled on 01/03/25 @ 10:30 AM. CM checked [employer] and confirmed appointment. Patient reported that he completed at home sleep test study but that it came back negative. Patient reports that he will complete another sleep study but this time at the hospital. Patient reports using continuous oxygen at 2L, increasing to 2.5L during ambulation, and occasionally finds himself gasping for air while moving. Patient reports that the nurse who delivers his methadone at home always checks his O2 sat which according to patient it fluctuates. Patient reports that he continuous to r eceive physical therapy at home twice weekly. Patient reports that his mother is a significant source of support, assisting with task such as doing his laundry, preparing meals, setting out his clothes, taking him to appointments, and accompanying him to the store, among other things. Patient reports that he is in the process of arranging for his mother to become his RIP AND GROOVE MACHINE OPERATOR and has contacted [facility].Patient reports that he is scheduled for an GI appt at [facility] on 01/04/25 @ 11:15 PM. CM confirmed by looking in [employer]. Patient reports that he is scheduled at [facility] on 02/16/25. Patient reports that he has transportation for these appointments either through [employer] or his mom if availabl e. Patient reports that he saw his vitreo retinal surgeon on 12/11/24 and had a 6 minute walking test on 12/14/24. Patient reports that his vitreo retinal surgeon recommended that he be referred to a urologist. CM will send message to PCP. Lastly, pt reports that he has an appointment on Wednesday at [facility] to receive his RSV, pneumonia, and flu vaccine. No further questions or concerns. CM reinforced direct contact information for any additional questions or concerns. Education provided on [facility] Ur[facility] Care located in [facility] of [facility]. Patient provided with after-hours line for [facility], , which offer night time triage service and option to transfer to sheep boner provider if needed. Patient verbalizes understanding, and able to r epeat back to job specification writer. A follow up call will be placed within 10 days, patient agrees with plan. * Carlos Muñiz RN - 12/19/2024 9:40 AM EDT During previous follow up conversation, pt reported that he received a notification that he needed to find a new chef under. Prior to calling patient today CM outreach [facility] Was informed that statement was incorrect and that patient just needs tomake an appointment. Was informed that they will call patient to schedule. * Lesia Amor MD - 12/19/2024 9:40 AM EDT Current cardiology referral, he started to be seen due to history of pulmonary edema of unknown cause. It seems that further he was probably lung pathology, but cardiac workup was not completed. He will continue on Lasix and will refer to new cardiology. I will also refer to urology regarding urinary incontinence, see CM note below documented in this encounter Miscellaneous Notes * Addendum Note - Lesia Amor MD - 12/19/2024 9:40 AM EDTAddended by: LESIA AMOR on: 01/02/2025 05:00 PM Modules accepted: Orders documented in this encounter Plan of Treatment Upcoming Encounters Date Type Department Care Team (Late st Contact Info) Description 02/07/2025 11:30 AM EST Office Visit [facility] MEDICINE [address] [place] [address] Lesia Amor MD [address] [place] [address] Scheduled Referrals Name Type Priority Associated Diagnoses Orde r Schedule Referral to Cardiology Outpatient Referral Routine Pulmonary edema without heart failure Expected: 01/02/2025 (Approximate), Expires: 01/02/2026 Referral to Urology Outpatient Referral Routine Stress incontinence of urine Expected: 01/02/2025 (Approximate), Expires: 01/02/2026 documented as of this encounter Visit Diagnoses Diagnosis Pulmonary edema without heart failure- Primary Stress incontinence of urine documented in this encounter Additional Health Concerns Assessment Noted Time PHQ-9 Depression Total Score: 22 09/12/ 025 11:24 AM EDT documented as of this encounter Care Teams Auto Glass Worker Relationship Specialty Start Date End Date Lesia Amor MD [address] [place] [address] PCP - General Internal Medicine 12/07/23 Carlos Muñiz, ROXANN [address] [place] [address] Registered Nurse Family Medicine 09/06/24 Jennifer Burgess 09/07/24 documented as of this encounter
--- OUTSIDE RECORDS SUMMARY | 2025-01-03 11:23 | XMS_ITS | Encounter Summary ---
Author Organization [employer] Address [address] [place] [address] 7t [place] [address] Care Team Providers Care Hris Coordinator Name Role Phone Roma Bender Primary Care Provider [phone] Neetu Bah Unavailable [phone] Lesia Tran MD Primary Care Provider + Carlos Muñiz RN Unavailable [phone] Carlos Muñiz RN Unavailable [phone] Jennifer Burgess Unavailable Reason for Visit * Reason Onset Date Comments Medication Question 05/04/2023 Encounter Details Date Type Department Care Team (Late st Contact Info) Description 05/04/2023 Telephone [facility] MEDICINE [address] [place] [address] Roma Bender FNP [address] [place] [address] Medication Question Social History Tobacco Use Types [...] 50 MG tablet prescribed by pcp at [facility] today 05/04/23, was prescribed for 1 time daily but it was supposed to be 2 times daily. Any questions please contact [phone]. documented in this encounter Plan of Treatment Upcoming Encounters Date Type Department Care Team (Late st Contact Info) Description 02/07/2025 11:30 AM EST Office Visit [facility] MEDICINE [address] [place], [place] [phone] Lesia Tran MD [address] [place] [address] documented as of this encounter Visit Diagnoses Not on filedocumented in this encounter Additional Health Concerns Assessment Noted Time PHQ-9 Depression Total Score: 11 023 3:14 PM EDT documented as of this encounter Care Teams Hris Coordinator Relationship Specialty Start Date End Date Roma Bender FNP [address] [place] [address] PCP - General Family Medicine 01/14/23 12/06/23 Lesia Tran MD [address] [place] [address] PCP - General Internal Medicine 12/07/23 Neetu Bah AGNP [address] [place] [phone] Family Medicine 01/14/23 09/02/23 Carlos Muñiz, ROXANN [address] [place] [address] Registered Nurse Family Medicine 09/05/24 09/05/24 Carlos Muñiz, ROXANN [address] [place] [address] Registered Nurse Family Medicine 09/06/24 Jennifer Burgess 09/07/24 documented as of this encounter
--- OUTSIDE RECORDS SUMMARY | 2025-01-03 11:23 | XMS_ITS | Encounter Summary ---
Author Organization [employer] Address [address] [facility] 7t [place] [address] Care Team Providers Care Montessori Lead Teacher Name Role Phone Roma Bender Primary Care Provider [phone] Neetu Bah Unavailable Lesia Tran MD Primary Care Provider + Carlos Muñiz RN Unavailable [phone] Carlos Muñiz RN Unavailable [phone] Jennifer Burgess Unavailable Encounter Details Date Type Department Care Team (Late st Contact Info) Description 02/19/2023 Orders Only [facility] [address] [place] [address] Roma Bender FNP [address] [place] [address] Other acute gastritis, presence of bleeding unspecified [...] Description 02/07/2025 11:30 AM EST Office Visit [facility] MEDICINE [address] [place] [address] Lesia Tran MD [address] [place] [address] documented as of this encounter Visit Diagnoses Diagnosis Other acute gastritis, presence of bleeding unspecified- Primary documented in this encounter Additional Health Concerns Assessment Noted Time PHQ-9 Depression Total Score: 11 023 3:14 PM EDT documented as of this encounter Care Teams Montessori Lead Teacher Relationship Specialty Start Date End Date Roma Bender FNP [address] [place] [address] PCP - General Family Medicine 01/14/23 12/06/23 Lesia Tran MD [address] [place] [address] [phone] PCP - General Internal Medicine 12/07/23 Neetu Bah AGNP [address] [place] [phone] Family Medicine 01/14/23 09/02/23 Carlos Muñiz, RN [address] [place] [address] Registered Nurse Family Medicine 09/05/24 09/05/24 Carlos Muñiz, ROXANN [address] [place] [address] Registered Nurse Family Medicine 09/06/24 Jennifer Burgess 09/07/24 documented as of this encounter
--- OUTSIDE RECORDS SUMMARY | 2025-01-03 11:23 | XMS_ITS | Clinical Summary ---
Author Organization [facility] Address [address] [place] [address] Phone Care Team Providers Care Hand Finisher Name Role Phone Az Terrell Primary Care Provider [phone] Immunizations Immunization Administration Dates Next Due DTP [...] age to complete this topic Care Teams Hand Finisher Relationship Specialty Start Date End Date Az Terrell [address] [place] [address] PCP - General 11/13/16
--- OUTSIDE RECORDS SUMMARY | 2025-01-03 11:23 | XMS_ITS | Encounter Summary ---
Author Organization [employer] Address [address] [place] [address] [address] [place] [address] Care Team Providers Care Manager Union Name Role Phone Lesia Tran MD Primary Care Provider + Carlos Muñiz RN Unavailable [phone] Carlos Muñiz RN Unavailable [phone] Jennifer Burgess Unavailable Reason for Visit * Reason Onset Date Comments Nurse Triage 06/16/2024 Encounter Details Date Type Department Care Team (Late st Contact Info) Description 06/16/[address] [facility] [address], [place] [phone] Lesia Tran MD [address] [place], [place] [phone] Nurse Triage Social History Tobacco Use Types [...] the past 12 months, has t he [employer] Referrals, gas, oil or water [employer] threatened to shut off services in your [...] Miscellaneous Notes * Telephone Encounter - Anita Mnoahan LPN - 06/16/2024 10:56 AM EDT Please [...] from yesterday as he was in [facility] ( note requested) Patient with reported [...] is in agreement to reach out to [facility] and Crisis as needed. Has concerns [...] had contact with Care Coordinators here at [facility] and is requesting additional help. Patient agrees to have [facility] reach out to him with worsening symptoms. [facility] and message to [facility] sent. Disposition reviewed and patient in [...] 06/16/2024 10:29 AM EDT Please obtain [facility] note from visit on 06/15/24. Patient scheduled with PCP on Wednesday06/20/24. * Telephone Encounter - Kenisha Mtz - 06/16/2024 9:52 AM EDT Symptoms: Abdominal Pain - Male, Abdominal Swelling Outcome: Schedule an urgent appointment (within 4 hours) or talk to a nurse or provider soon Reason: Started within the past 3 days The caller accepted this outcome. [phone] documented in this encounter Plan of Treatment Upcoming Encounters Date Type Department Care Team (Late st Contact Info) Description 02/07/2025 11:30 AM EST Office Visit [facility] [address] [place] [address] Lesia Tran MD [address] [place] [address] documented as of this encounter Visit Diagnoses Not on filedocumented in this encounter Additional Health Concerns Assessment Noted Time PHQ-9 Depression Total Score: 21 024 2:23 PM EST documented as of this encounter Care Teams Manager Union Relationship Specialty Start Date End Date Lesia Tran MD [address] [place] [address] PCP - General Internal Medicine 12/07/23 Carlos Muñiz RN [address] [place] [address] Registered Nurse Family Medicine 09/05/24 09/05/24 Carlos Muñiz RN [address] [place] [address] Registered Nurse Family Medicine 09/06/24 Jennifer Burgess 09/07/24 documented as of this encounter
--- OUTSIDE RECORDS SUMMARY | 2025-01-03 11:23 | XMS_ITS | Clinical Summary ---
Author Organization [employer] Address [address] [facility] 7[address] [place] [address] Care Team Providers Care Lunchroom Monitor Name Role Phone Andrea Amor MD Primary Care Provider + Carlos Muñiz RN Unavailable Jennifer Burgess Unavailable Allergies Active Allergy Reactions [...] and at bedtime for anxiety. Active pancrelipase, Hem-Zbfu-Dcfm, (Creon) 39344-69930 units capsule Take 2 capsules by mouth [...] mouth Once per day. 90 tablet 3 09/20/19 25 Active divalproex (Depakote) 250 MG EC tabletIndicati ons:Severe episode of recurrent major depressive disorder, without psychotic features (CMS/HCC) (HCC),Generali zed anxiety disorder with panic attacks Take 1 tablet (250 mg) by mouth 2 times daily. 60 tablet 2 09/20/19 25 Active famotidine (Pepcid) 20 MG tablet Take 1 tablet (20 mg) by mouth in the morning and 1 tablet (20 mg) in the evening. 60 tablet 3 09/20/19 25 Active furosemide (Lasix) 40 MG tablet Take 1 tablet (40 mg) by mouth Once per day. 90 tablet 1 09/20/19 25 Active hydrOXYzine HCl (Atarax) 25 MG tablet Take 1 tablet (25 mg) by mouth every 6 (six) hours if needed for anxiety. 120 tablet 1 09/20/19 25 Active OLANZapine (ZyPREXA) 5 MG tablet Take 1 tablet (5 mg) by mouth 2 times daily. 60 tablet 1 09/20/19 25 Active venlafaxine XR (Effexor XR) 150 MG 24 hr capsule Take 1 capsule (150 mg) by mouth Once per day. Do not crush or chew. 90 capsule 1 09/20/19 25 Active cloNIDine (Catapres) 0.1 MG [...] Inhale 1 puff Once per day. 07/07/19 025 Discontinued(In effective) Tirzepatide-We ight Management (Zepbound) 2.5 MG/0.5ML solution auto-injector Inject 0.5 mL (2.5 mg) under the skin 1 (one) time per week. 2 mL 1 07/14/19 025 Discontinued(Si de effects) Multiple Vitamin (Daily-Rip [...] apnea) 02/11/2024 Overview (02/11/2024): Sleep study at [facility]: moderate TYSON with nocturnal hypoxemia, <88% 24.1 minutes, lowest 77%. Assessment & Plan (06/20/2024 1:12 PM EDT): Pt has not been able to use CPAP, will call sleep specialist to check next appointment. Advised regarding weight reduction, consider Zepbound. Consider Hypoglossal nerve stimulator implant. Fu with sleep specialist. Assessment & Plan (02/11/2024 3:58 PM EST): [facility] Mild persistent asthma 02/11/2024 Assessment & Plan (02/11/2024 4:00 PM EST): Doing well on Breo, fu by [facility] pulmonary Advised re weight [...] Plan (02/11/2024 4:01 PM EST): FU by [facility] GI, on Protonix, senna prn constipation Advised re weight reduction, may try Topamax after labs. Advised to avoid THC use Morbid obesity ([facility]) 10/18/2023 Overview (10/18/2023): Last Addressed Date: 10/26/2022 [...] moderate intensity exercise. Will hold referral to media relations manager until next appointment once anxiety is better [...] recurrent major depressive disorder, with psychotic features ([facility]/HCC) 06/10/2023 Assessment & Plan (06/11/2023 9:01 AM EST): PROGRESS NOTE: ID: Yaniv is a 37 y.o. White [place] choose not to disclose-identified cis- male (pronouns [...] intervention , Patient to reach out to [facility] team as needed, and Patient to reach [...] disability and he will follow-up with the [facility] and [facility]. His [facility] assist with methadone administration, pharmaco [...] cannabis Advised to reach out to recovery coordinator at the methadone program, avoid using any other recreational substance or alcohol Assessment & Plan (07/27/2024 2:58 PM EDT): >>ASSESSMENT AND PLAN FOR ANXIETY WRITTEN ON 02/11/2024 4:04 PM BY ANDREA AMOR MD Seen by MH provider at [facility], will bring meds at next appt. He feels safe at home and is able to reach out for safety. Assessment & Plan (06/20/2024 1:14 PM EDT): Recently started seeing psychiatry and medications, advised to fu closely with them next week. Advised to cut down on vaping cannabis. Pt feels safe at home, advised to reach out to therapist or recovery coordinator (he will request one at methadone program). Advised against using recreational substances or alcohol. Pt will see therapist this afternoon. Routine health maintenance 05/29/2023 Assessment & Plan (05/29/2023 2:23 PM EST): -Pt brought labs done by his [facility] in 04/06/2023 hb 11.7,chem was normal [...] 248 Pt brought labs done by his [employer] [facility] in 04/06/2023 hb 11.7,chem was normal [...] Date Resolved Date Moderate opioid use disorder (CMS/HCC) 06/10/2023 04/12/2024 Overview (10/18/2023): Last Addressed Date: 10/31/2021 Assessment & Plan (02/11/2024 4:03 PM EST): Doing well on Methadone at [facility], has take home bottles Advised to decrease use of THC Encounters Date Type Department Care Team Description 12/25/2024 Patient Outreach [facility] [address] [place] [phone] Andrea Amor MD Care Coordination ([facility]3 -W Jennifer Burgess telephone call outreach ) 12/20/[address] [phone] Andrea Amor MD Letter Request 12/19/2024 Patient Outreach [address] [phone] Andrea Amor MD Care Management ([facility]- F/U call # 4) 12/15/2024 Orders Only [facility] External Provider, [facility] 12/07/2024 Patient Outreach [address] [phone] Andrea Amor MD 12/05/2024 12:00 PM EDT Office Visit [address] [address] Andrea Amor MD Generalized anxiety disorder with panic attacks (Primary Dx); Stress incontinence of urine; Morbid obesity (CMS/HCC) 12/05/2024 Travel 12/04/2024 Travel 11/29/2024 Telephone [facility] [address] [place] [phone] Andrea Amor MD Chart Prep 11/24/2024 Patient Outreach [address] [address] Andrea Amor MD 11/21/2024 Patient Outreach [address] [address] Andrea Amor MD 11/17/2024 Patient Outreach [address] [place] [address] Andrea Amor MD Care Management ([facility]- Follow Up Call # 3) 11/15/[address] [phone] Andrea Amor MD IZ 11/09/2024 9:00 AM EDT Office Visit [facility] [address] [place] [phone] Clem, Ailyn, OD Myopia, bilateral (Primary Dx) 11/02/2024 Patient Outreach [address] [phone] Andrea Amor MD Care Coordination ([facility] Jennifer Burgess telephone call outreach) 10/31/[address] [address] Cheryl Watts, STRAIGHTENING MACHINE FEEDER Follow-up 10/31/2024 Patient Outreach [address] [address] Andrea Amor MD Care Management ([facility]- follow up call # 2) 10/24/2024 Orders Only GENERIC EXTERNAL DATA DEPARTMENT Provider, Generic External Data 10/23/2024 11:00 AM EDT Office Visit [facility] [address] [place] [phone] Trenton Wilkerson DDS Mild persistent asthma, unspecified whether complicated 10/23/[address] [address] Andrea Amor MD 10/22/2024 Travel 10/20/[address] [address] Andrea Amor MD Durable Medical Equipment (DME RX Pullup, Bathroom Grab Bars, Shower Bench(L&C)) 10/18/2024 Orders Only GENERIC EXTERNAL DATA DEPARTMENT Provider, Generic External Data 10/16/2024 Patient Outreach [address] [phone] Andrea Amor MD Care Coordination ([facility] Jennifer Burgess telephone call outreach/) 10/15/2024 Orders Only GENERIC EXTERNAL DATA DEPARTMENT Provider, Generic External Data 10/11/2024 Refill [facility] [address] [place] [phone] Andrea Amor MD from Last 3 Months [...] 11:30 AM EST Office Visit [facility] [address] [place], [place] [phone] Andrea Amor MD [address] [place], [place] [phone] Health Maintenance Due Date Last Done Comments Dental Prophylaxis 1985 Family Planning (PISQ) 06/23/2002 HPV Vaccines (1 - Male 3-dose series) 06/23/2002 Dental X-Ray: Bitewings 02/21/2015 02/20/2014 Dental Oral Exam 10/11/2024 04/12/2024, 02/20/2014 COVID-19 Vaccine ( season) 2024 09/11/2020, 07/30/2020 Depression Monitoring 03/14/2025 09/12/2024, 025 Diabetes: Hemoglobin [...] Completed 08/20/2021, 07/19/2021, 10/27/1999, Additional history exists Influenza Vaccine Completed 12/22/2024, , 01/28/2022, Additional history exists Pneumococcal Vaccine: Pediatrics (0 to 5 Years) and At-Risk Patients (6 to 49) Years Completed 12/22/2024 HIV Screening Discontinued Hepatitis C Screening Discontinued [...] Procedure Name Priority Date/Time Associated Diagnosis Comments FL BARIUM SWALLOW MODIFIED Routine 01/03/2025 10:[address] CHEST WO CONTRAST Routine 12/16/2024 8:36 AM EDT BASIC METABOLIC PANEL Routine 10/24/2024 10:32 PM [...] URINE, ROUTINE Routine 10/15/2024 11:01 AM EDT LIPID PANEL WITH REFLEX TO DIRECT LDL Routine 09/19/2024 3:15 PM EDT IFG (impaired fasting glucose) Morbid obesity (CMS/HCC) POCT GLYCATED HEMOGLOBIN, TOTAL Routine 06/20/2024 12:05 PM EDT Hyperglycemia PANORAMIC RADIOGRAPHIC IMAGE Routine 04/12/2024 2:30 PM EST PERIODIC ORAL EVALUATION - ESTABLISHED PATIENT Routine 04/12/2024 2:30 PM EST INTRAORAL - COMPLETE SERIES OF RADIOGRAPHIC IMAGES Routine 02/20/2014 12:00 AM EST from Last 3 Months or Most Recently Relevant to Health Maintenance Results * FL BARIUM SWALLOW MODIFIED (01/03/2025 10:41 AM EDT) Anatomical Region Laterality Modality Head, Neck Radiographic Elizabet ging 01/03/2025 10:4 1 AM EDT Narrative 01/03/2025 10:59 AM EDT [address] [address] Fluoroscopy Report Signed Patient: Yaniv Gutierrez MR#: [id number] : 1985 Acct:[id number] Age/Sex: 39 / M ADM Date: 01/03/25 Loc: LOU[facility] Attending Dr: Samantha Davis NP Ordering Physician: Samantha Davis NP Date of Service: 01/03/25 Procedure(s): FL Modified Barium Swallow Accession Number(s): [id number] cc: Andrea Amor MD; Samantha Davis NP Reason for Exam: R13.10 - Dysphagia, unspecified EXAMINATION: Modified Barium Swallow CLINICAL INFORMATION: Dysphagia. COMPARISON: None. TECHNIQUE: Modified barium swallow was performed under lateral fluoroscopy with patient in standing position. Barium mixed with solids and liquids of different consistencies was administered by the speech pathologist. Examination was recorded in the fluoroscopy suite. FINDINGS: Patient was given several consistencies. There was no laryngeal penetration or subglottic aspiration. FLUOROSCOPY TIME: 1 minute 8 seconds Number of Spot Images: N/A DOSE AREA PRODUCT: 690 uGy-m2 (microgray-meter squared) FL/FL Modified Barium Swallow IMPRESSION: No evidence of laryngeal penetration or aspiration. Normal modified barium swallow examination. Please refer to the full speech therapy report to follow for further details. Electronically signed by: Compa Wilder MD 01/03/2025 10:57 AM EDT RP Dictated By: Compa Wilder MD Signed By: <Electronically signed by Compa Wilder MD in OV> 01/03/25 1057 DD/ 1041 TD/TT: 01/03/25 1045 Asparagus Buncher: Procedure Note Donotuseinterpreter, Image - 01/03/2025 [place] [address] Fluoroscopy Report Signed Patient: Yaniv Gutierrez GMR#: [id number] : 1985Acct:[id number] Age/Sex: 39 / MADM Date: 01/03/25 Loc: LOUIE Attending Dr: Samantha Davis NP Ordering Physician: Samantha Davis NP Date of Service: 01/03/25 Procedure(s): FL Modified Barium Swallow Accession Number(s): [id number] cc: Andrea Amor MD; Samantha Davis NP Reason for Exam: R13.10 - Dysphagia, unspecified EXAMINATION: Modified Barium Swallow CLINICAL INFORMATION: Dysphagia. COMPARISON: None. TECHNIQUE: Modified barium swallow was performed under lateral fluoroscopy with patient in standing position. Barium mixed with solids and liquids of different consistencies was administered by the speech pathologist. Examination was recorded in the fluoroscopy suite. FINDINGS: Patient was given several consistencies. There was no laryngeal penetration or subglottic aspiration. FLUOROSCOPY TIME: 1 minute 8 seconds Number of Spot Images: N/A DOSE AREA PRODUCT: 690 uGy-m2 (microgray-meter squared) FL/FL Modified Barium Swallow IMPRESSION: No evidence of laryngeal penetration or aspiration. Normal modified barium swallow examination. Please refer to the full speech therapy report to follow for further details. Electronically signed by: Compa Wilder MD 01/03/2025 10:57 AM EDT Dictated By: Compa Wilder MD Signed By: <Electronically signed by Compa Wilder MD in OV> 01/03/25 1057 DD/ 1041 TD/TT: 01/03/25 1045 Asparagus Buncher: [facility] External Provider IMG FLU OROSCOPY PROCEDURES Final Result * CT Chest w/o Contrast (12/16/2024 8:36 AM EDT) Anatomical Region Laterality Modality Body, Chest Computed Tomogra phy 12/16/2024 8:36 AM EDT Narrative 12/16/2024 8:38 AM EDT [place] [address] CT Scan Report Signed Patient: Yaniv Gutierrez MR#: [id number] : 1985 Acct:[id number] Age/Sex: 39 / M ADM Date: 12/15/24 Loc: HO.CT Attending Dr: Samantha Davis NP Ordering Physician: Samantha Davis NP Date of Service: 12/15/24 Procedure(s): CT chest wo IV con Accession Number(s): [id number] cc: Andrea Amor MD; Samantha aDvis DIRECTOR CORPORATE COMMUNICATIONS Report Number: [id number]: Total DLP = 320.00 mGy-cm Reason for Exam: Z87. - Personal history of pneumonia (recurrent) CLINICAL HISTORY: Z. - Personal history of pneumonia (recurrent) CT chest without contrast Comparison: 08/16/2024 Findings: The heart size is normal. The visualized thyroid and mediastinum are unremarkable. No new consolidation or effusion. There is bilateral lower lobe scarring or subsegmental atelectasis. The appearance of the liver suggests fatty infiltration. The visualized upper abdomen is otherwise unremarkable. No acute fractures. IMPRESSION: 1. Bilateral lower lobe scar versus subsegmental atelectasis. 2. Hepatic steatosis This document has been electronically signed by: Blake Licea MD on 12/16/2024 08:36:30 Dictated By: Blake Licea MD Signed By: <Electronically signed by Blake Licea MD in OV> 12/16/2437 DD/ 5 TD/TT: 12/16/24835 Asparagus Buncher: Procedure Note Donotuseinterpreter, Image - 12/16/[address] [place] [address] [address] Scan Report Signed Patient: Yaniv Gutierrez GMR#: [id number] : 1985Acct:[id number] Age/Sex: 39 / MADM Date: 12/15/24 Loc: HO.CT Attending Dr: Samantha Davis DIRECTOR CORPORATE COMMUNICATIONS Ordering Physician: Samantha Davis NP Date of Service: 12/15/24 Procedure(s): CT chest wo IV con Accession Number(s): [id number] cc: Andrea Amor MD; Samantha Davis DIRECTOR CORPORATE COMMUNICATIONS Report Number: [id number]: Total DLP = 320.00 mGy-cm Reason for Exam: Z. - Personal history of pneumonia (recurrent) CLINICAL HISTORY: Z. - Personal history of pneumonia (recurrent) CT chest without contrast Comparison: 08/16/2024 Findings: The heart size is normal. The visualized thyroid and mediastinum are unremarkable. No new consolidation or effusion. There is bilateral lower lobe scarring or subsegmental atelectasis. The appearance of the liver suggests fatty infiltration. The visualized upper abdomen is otherwise unremarkable. No acute fractures. IMPRESSION: 1. Bilateral lower lobe scar versus subsegmental atelectasis. 2. Hepatic steatosis This document has been electronically signed by: Blake Licea MD on 12/16/2024 08:36:30 Dictated By: Blake Licea MD Signed By: <Electronically signed by Blake Licea MD in OV> 12/16/2437 DD/ 5 TD/TT: 12/16/24835 Asparagus Buncher: [facility] External Provider IMG CT PROCEDURES Final Result * (ABNORMAL) Hepatic Function Panel (10/24/2024 10:32 PM EDT) Bilirubin, Total 0.3 0.0 - 1.0 mg/dL [facility] Bilirubin, Direct 0.1 0.0 - 0.5 mg/dL [facility] Aspartate Amino Transferase 31 5 - 37 U/L [facility] Alanine Aminotransferase 29 0 - 40 U/L [facility] Total Protein 7.6 6.5 - 8.0 g/dL [facility] Albumin Level 3.7 3.5 - 5.0 g/dL [facility] Alkaline Phosphatase 121(H) 39 - 117 U/L [facility] 10/24/2024 10:3 2 PM EDT 10/24/2024 10:46 PM EDT Generic External Data Provider LAB BLOOD ORDERAB LES Final Result [facility] [address] [place] [phone] * (ABNORMAL) Basic Metabolic Panel (10/24/2024 10:32 PM EDT) Sodium 139 135 - 145 mmol/L [facility] Potassium 4.5 3.3 - 5.1 mmol/L [facility] Chloride 100 96 - 108 mmol/L [facility] Carbon Dioxide 31(H) 22 - 29 mmol/L [facility] Anion Gap 13 12 - 20 [facility] Urea Nitrogen (BUN) 10 9 - 16 mg/dL [facility] Creatinine, Serum 0.82 0.5 - 1.4 mg/dL [facility] Creatinine Clr Calc Pharmacy 167.8 [facility] Comment:eGFR (calculated fro m the MDRD study equation) and eCrCl(calculated from the Cockcroft-Gault equation) are based ondifferent parameters and may not yield comparable results.If eCrCl result is absurd, please check patient'sheight/weight. Estimated Glomerular Filt Rate >60 [facility] Comment:Chronic Kidney Disea se: Estimated GFR < 60 mL/min/1.89h6Sbzanc Kidney Disease: Estimated GFR < 15 mL/min/1.73m2 Glucose 107 60 - 115 mg/dL [facility] Calcium 8.7 8.4 - 10.2 mg/dL [facility] 10/24/2024 10:3 2 PM EDT 10/24/2024 10:46 PM EDT us Generic External Data Provider LAB BLOOD ORDERAB LES Final Result [facility] [address] [place] [phone] * (ABNORMAL) CBC auto differential (10/24/2024 9:41 PM EDT) Only the most recent of2 resultswithin the time period is included. White Blood Count 14.9(H) 4.8 - 10.8 X10*3/uL [facility] Red Blood Count 4.57(L) 4.60 - 5.80 X10*6/uL [facility] Hemoglobin 12.1(L) 14.0 - 18.0 g/dl [facility] Hematocrit 38.2(L) 42.0 - 52.0 % [facility] Mean Corpuscular Volume 83.6 80.0 - 98.0 fL [facility] Mean Corpuscular Hemoglobin 26.5(L) 27.0 - 33.0 pg [facility] Mean Corpuscular HGB Conc 31.7 31.0 - 36.0 g/dl [facility] Red Cell Distribution Width 16.0 11.0 - 16.0 % [facility] Platelet Count 286 160 - 400 X10*3/uL [facility] Mean Platelet Volume 8.4(L) 9.4 - 12.4 fL [facility] Neutrophils Percent Auto 78.1(H) 45 - 73 % [facility] Imm Gran Pct Auto 0.8(H) 0.0 - 0.4 % [facility] Lymphocytes Percent Auto 9.1(L) 20 - 40 % [facility] Monocytes Percent Auto 8.2 2 - 11 % [facility] Eosinophils Percent Auto 3.5 0 - 4 % [facility] Basophils Percent Auto 0.3 0 - 2 % [facility] NRBC Pct Auto 0.0 0.0 - 0.2 /100WBC [facility] Neutrophils Absolute Auto 11.6(H) 2.0 - 8.3 x10*3/uL [facility] Imm Gran Abs Auto 0.12(H) 0.00 - 0.03 X10*3/uL [facility] Lymphocytes Absolute Auto 1.4 1.2 - 4.9 X10*3/uL [facility] Monocytes Absolute Auto 1.2 0.1 - 1.2 X10*3/uL [facility] Eosinophils Absolute Auto 0.5(H) 0.0 - 0.4 X10*3/uL [facility] Basophils Absolute Auto 0.1 0.0 - 0.2 X10*3/uL [facility] NRBC Abs Auto 0.000 0.0 - 0.012 X10*3/uL [facility] 10/24/2024 9:41 PM EDT 10/24/2024 9:48 PM EDT us Generic External Data Provider LAB BLOOD ORDERAB LES Final Result Performing Organization Address [facility] Co de Phone Number [facility] [address] [place] [address] [phone] * Ethanol (10/18/2024 11:28 AM EDT) ETHANOL (MG/DL) IN SER/PLAS <10 mg/dL [facility] Comment:Serum/plasma ethanol results are to be used formedical/treatment purposes only. 10/18/2024 11:2 8 AM EDT 10/18/2024 11:35 AM EDT us Generic External Data Provider LAB BLOOD ORDERAB LES Final Result Performing Organization Address [facility] Co de Phone Number [facility] [address] [place] [phone] * Magnesium (10/18/2024 11:28 AM EDT) Magnesium 2.0 1.6 - 2.6 mg/dL [facility] 10/18/2024 11:2 8 AM EDT 10/18/2024 11:35 AM EDT us Generic External Data Provider LAB BLOOD ORDERAB LES Final Result Performing Organization Address [facility] Co de Phone Number [facility] [address] [place] [phone] * Lipase (10/18/2024 11:28 AM EDT) Lipase 14 8 - 78 U/L [facility] 10/18/2024 11:2 8 AM EDT 10/18/2024 11:35 AM EDT us Generic External Data Provider LAB BLOOD ORDERAB LES Final Result Performing Organization Address [facility] Co de Phone Number [facility] [address] [place] [phone] * (ABNORMAL) Comprehensive Metabolic Panel (10/18/2024 11:28 AM EDT) Sodium 135 135 - 145 mmol/L [facility] Potassium 4.5 3.3 - 5.1 mmol/L [facility] Chloride 99 96 - 108 mmol/L [facility] Carbon Dioxide 28 22 - 29 mmol/L [facility] Anion Gap 13 12 - 20 [facility] Urea Nitrogen (BUN) 15 9 - 16 mg/dL [facility] Creatinine, Serum 0.89 0.5 - 1.4 mg/dL [facility] Creatinine Clr Calc Pharmacy 139.9 [facility] Comment:eGFR (calculated fro m the MDRD study equation) and eCrCl(calculated from the Cockcroft-Gault equation) are based ondifferent parameters and may not yield comparable results.If eCrCl result is absurd, please check patient'sheight/weight. Estimated Glomerular Filt Rate >60 [facility] Comment:Chronic Kidney Disea se: Estimated GFR < 60 mL/min/1.57k9Yyqtor Kidney Disease: Estimated GFR < 15 mL/min/1.73m2 Glucose 107 60 - 115 mg/dL [facility] Calcium 8.8 8.4 - 10.2 mg/dL [facility] Bilirubin, Total 0.5 0.0 - 1.0 mg/dL [facility] Aspartate Amino Transferase 33 5 - 37 U/L [facility] Alanine Aminotransferase 38 0 - 40 U/L [facility] Total Protein 8.2(H) 6.5 - 8.0 g/dL [facility] Albumin Level 4.1 3.5 - 5.0 g/dL [facility] Alkaline Phosphatase 143(H) 39 - 117 U/L [facility] 10/18/2024 11:2 8 AM EDT 10/18/2024 11:35 AM EDT us Generic External Data Provider LAB BLOOD ORDERAB LES Final Result [facility] [address] [place] [phone] * XR Chest 2 Views (10/15/2024 11:55 AM EDT) Anatomical Region Laterality Modality Chest Radiographic Elizabet ging 10/15/2024 11:5 5 AM EDT Narrative 10/15/2024 11:57 AM EDT [address] [address] XRay Report Signed Patient: Yaniv Gutierrez MR#: [id number] : 1985 Acct:[id number] Age/Sex: 39 / M ADM Date: 10/15/24 Loc: .ED Attending Dr: Ordering Physician: Layo Serrano DO Date of Service: 10/15/24 Procedure(s): XR chest 2V Accession Number(s): [id number] cc: Andrea Amor MD; Layo Serrano DO [...] 10/15/24 1156 DD/ 1155 TD/TT: 10/15/24 1155 Asparagus Buncher: Procedure Note Donotuseinterpreter, Image - 10/15/[address] [address] XRay Report Signed Patient: Yaniv Gutierrez GMR#: [id number] : 1985Acct:[id number] Age/Sex: 39 / MADM Date: 10/15/24 Loc: HO.ED Attending Dr: Ordering Physician: Layo Serrano DO Date of Service: 10/15/24 Procedure(s): XR chest 2V Accession Number(s): [id number] cc: Andrea Amor MD; Layo Serrano DO [...] 10/15/24 1156 DD/ 1155 TD/TT: 10/15/24 1155 Asparagus Buncher: [facility] External Provider IMG XR PROCEDURES Final Result * (ABNORMAL) Drug Monitoring, Panel 1, Screen, Urine (10/15/2024 11:01 AM EDT) Opiate Screen Urine Not Detected Not Detect [facility] Comment:Opiate cut-off is 30 0 ng/mL.Positive results are unconfirmed and should not be used fornon-medical purposes. Barbiturates, Urine Not Detected Not Detect [facility] Comment:Barbiturate cut-off is 200 ng/mL.Positive results are unconfirmed and should not be used fornon-medical purposes. Phencyclidine Screen Urine Not Detected Not Detect [facility] Comment:Phencyclidine cut-of f is 25 ng/mL.Positive results are unconfirmed and should not be used fornon-medical purposes. Amphetamine Screen Urine Not Detected Not Detect [facility] Comment:Amphetamine cut-off is 1000 ng/mL.Positive results are unconfirmed and should not be used fornon-medical purposes. Benzodiazepines Screen Urine Not Detected Not Detect [facility] Comment:Benzodiazepine cut-o ff is 200 ng/mL.Positive results are unconfirmed and should not be used fornon-medical purposes. Cocaine Screen Urine Not Detected Not Detect [facility] Comment:Cocaine cut-off is 3 00 ng/mL.Positive results are unconfirmed and should not be used fornon-medical purposes. Cannabinoid Screen Urine POSITIVE(A) Not Detect [facility] Comment:Cannabinoid cut-off is 50 ng/mL.Positive results are unconfirmed and should not be used fornon-medical purposes. Methadone Screen, Urine Positive(A) Not Detect ng/mL [facility] Comment:Methadone cut-off is 300 ng/mL.Positive results are unconfirmed and should not be used fornon-medical purposes. FENTANYL URINE Not Detected Not Detect [facility] Comment:Fentanyl cut-off is 1 ng/mL.Positive results are unconfirmed and should not be used fornon-medical purposes. Oxycodone Urine Screen Not Detected Not Detect ng/mL [facility] Comment:Oxycodone cut-off is 100 ng/mL.Positive results are unconfirmed and should not be used fornon-medical purposes. Buprenorphine Screen Not Detected Not Detect ng/mL [facility] Comment:Buprenorphine cut-of f is 5 ng/mL.Positive results are unconfirmed and should not be used fornon-medical purposes. 10/15/2024 11:0 1 AM EDT 10/15/2024 11:06 AM EDT Generic External Data Provider LAB URINE ORDERAB LES Final Result [facility] [address] [place] [address] [phone] * Culture, Urine, Routine (10/15/2024 11:01 AM EDT) Urine Urine specimen obtained by clean catch procedure / Unknown 10/15/2024 11:01 AM EDT 10/15/2024 11:06 AM EDT Comment:UACC Narrative [facility] - 10/16/2024 12:22 PM EDT Urine Culture No growth. Specimen Source: Urine clean catch Generic External Data Provider LAB MICROBIOLOGY - GENERAL ORDERABLES Final Result Performing Organization Address [facility] Co de Phone Number [facility] [address] [place] [address] [phone] * (ABNORMAL) Lipid Panel with Reflex to Direct LDL (09/19/2024 3:15 PM EDT) Triglycerides 304(H) <150 mg/dL [facility] Comment:Desirable Triglyceri de: less than 150 mg/dLBorderline High Triglyceride 150-199 mg/dLHigh Triglyceride: 200-499 mg/dLVery High Triglyceride: greater than or equal to 5OO mg/dL Cholesterol 184 <200 mg/dL [facility] Comment:Desirable Cholestero l: less than 200 mg/dLBorderline High Cholesterol: 200-239 mg/dLHigh Cholesterol: greater than 239 mg/dL LDL Cholesterol Calculated 81 <100 mg/dL [facility] Comment:Desirable LDL: less than 100 mg/dLNear Optimal/Above Optimal LDL: 110- 129 mg/dLBorderline High LDL: 130-159 mg/dLHigh LDL: 160-189 mg/dLVery High LDL: greater than or equal to 190 mg/dL HDL Cholesterol 43 >40 mg/dL [facility] Comment:Desirable HDL: great er than 40 mg/dL Note: This HDL assay may give artificially low results in patients with liver disease. Blood 09/19/2024 3:15 PM EDT 09/19/2024 4:08 PM EDT Andrea Amor MD LAB BLOOD ORDERABLES Fin al Result Performing Organization Address [facility]/ZIP Co de Phone Number [facility] [address] [place] [address] [phone] * POCT HGB A1C (06/20/2024 12:05 PM EDT) Hemoglobin A1C 6.0 4.0 - 6.0 % QC Media Lot # [id number] Lot# Expiration Date [id number] Blood 06/20/2024 12:0 5 PM EDT Andrea Amor MD POINT OF CARE TEST ENTER /EDIT ORDERABLES Final Result from Last 3 Months or Most Recently Relevant to Health Maintenance Insurance [facility] MEDICAID STAND ADULT Care Teams Lunchroom Monitor Relationship Specialty Start Date End Date Andrea Amor MD [address] [place] [address] PCP - General Internal Medicine 12/07/23 Carlos Muñiz, ROXANN [address] [place] [address] Registered Nurse Family Medicine 09/06/24 Jennifer Burgess 09/07/24
--- OUTSIDE RECORDS SUMMARY | 2025-01-03 11:23 | XMS_ITS | Encounter Summary ---
Author Organization [employer] Address [address] [place] [address] [address] [place] [address] Care Team Providers Care Job Site Supervisor Name Role Phone Neetu Bah Primary Care Provider Roma BenderP Primary Care Provider [phone] Neetu Bah Unavailable [phone] Lesia Tran MD Primary Care Provider + Carlos Muñiz RN Unavailable [phone] Carlos Muñiz RN Unavailable [phone] Jennifer Burgess Unavailable Encounter Details Date Type Department Care Team (Late st Contact Info) Description 09/29/2022 Abstract [facility] ADULT DENTAL [address] [place] [address] Trenton Wilkerson DDS [address] [place] [address] Social History Tobacco Use Types Packs/Day Years [...] Description 02/07/2025 11:30 AM EST Office Visit [facility] MEDICINE [address] [place] [address] Lesia Tran MD [address] [place] [address] documented as of this encounter Visit Diagnoses Not on filedocumented in this encounter Care Teams Job Site Supervisor Relationship Specialty Start Date End Date Neetu Bah AGNP [address] [place] [phone] PCP - General Family Medicine 11/28/20 01/13/23 Roma Bender FNP [address] [place] [address] PCP - General Family Medicine 01/14/23 12/06/23 Lesia Tran MD [address] [place] [address] PCP - General Internal Medicine 12/07/23 Neetu Bah AGNP [address] [place] [phone] Family Medicine 01/14/23 09/02/23 Carlos Muñiz, RN [address] [place] [address] Registered Nurse Family Medicine 09/05/24 09/05/24 Carlos Muñiz, RN [address] [place] [address] Registered Nurse Family Medicine 09/06/24 Jennifer Burgess 09/07/24 documented as of this encounter
--- OUTSIDE RECORDS SUMMARY | 2025-01-03 11:23 | XMS_ITS | Encounter Summary ---
Author Organization [employer] Address [address] [place] [address] 7t [place] [address] Care Team Providers Care Pumping Station Supervisor Name Role Phone Neetu Bah Primary Care Provider Roma BenderP Primary Care Provider [phone] Neetu Bah Unavailable [phone] Lesia Tran MD Primary Care Provider + Carlos Muñiz RN Unavailable [phone] Carlos Muñiz RN Unavailable [phone] Jennifer Burgess Unavailable Encounter Details Date Type Department Care Team (Late st Contact Info) Description 09/28/2022 Abstract [facility] ADULT DENTAL [address] [place] [address] Trenton Wilkerson DDS [address] [place] [address] Social History Tobacco Use Types Packs/Day Years [...] Description 02/07/2025 11:30 AM EST Office Visit [facility] MEDICINE [address] [place] [address] Lesia Tran MD [address] [place] [address] documented as of this encounter Visit Diagnoses Not on filedocumented in this encounter Care Teams Pumping Station Supervisor Relationship Specialty Start Date End Date Neetu Bah AGNP [address] [place] [phone] PCP - General Family Medicine 11/28/20 01/13/23 Roma Bender FNP [address] [place] [address] PCP - General Family Medicine 01/14/23 12/06/23 Lesia Tran MD [address] [place] [address] PCP - General Internal Medicine 12/07/23 Neetu Bah AGNP [address] [place] [phone] Family Medicine 01/14/23 09/02/23 Carlos Muñiz, RN [address] [place] [address] Registered Nurse Family Medicine 09/05/24 09/05/24 Carlos Muñiz, RN [address] [place] [address] Registered Nurse Family Medicine 09/06/24 Jennifer Burgess 09/07/24 documented as of this encounter
--- OUTSIDE RECORDS SUMMARY | 2025-01-03 11:23 | XMS_ITS | Encounter Summary ---
Author Organization [employer] Address [address] [place] [address] 7t [place] [address] Care Team Providers Care Behavior Specialist Name Role Phone Lesia Tran MD Primary Care Provider + Carlos Muñiz RN Unavailable [phone] Carlos Muñiz RN Unavailable [phone] Jennifer Burgess Unavailable Reason for Visit * Reason Onset Date Comments medication 02/02/2024 Encounter Details Date Type Department Care Team (Late st Contact Info) Description 02/02/2024 Telephone [facility] ADULT DENTAL [address] [place] [address] Trenton Wilkerson DDS [address] [place] [address] medication Social History Tobacco Use Types Packs/Day [...] Description 02/07/2025 11:30 AM EST Office Visit [facility] MEDICINE [address] [place] [address] Lesia Tran MD [address] [place] [address] documented as of this encounter Visit Diagnoses Not on filedocumented in this encounter Additional Health Concerns Assessment Noted Time PHQ-9 Depression Total Score: 21 06/09/2 024 2:23 PM EST documented as of this encounter Care Teams Behavior Specialist Relationship Specialty Start Date End Date Lesia Tran MD [address] [place] [address] PCP - General Internal Medicine 12/07/23 Carlos Muñiz, ROXANN [address] [place] [address] Registered Nurse Family Medicine 09/05/24 09/05/24 Carlos Muñiz, ROXANN [address] [place] [address] Registered Nurse Family Medicine 09/06/24 Jennifer Burgess 09/07/24 documented as of this encounter
--- OUTSIDE RECORDS SUMMARY | 2025-01-03 11:23 | XMS_ITS | Encounter Summary ---
Author Organization [employer] Address [address] [place] [address] 7t [place] [address] Care Team Providers Care Emc Storage Architect Name Role Phone Neetu Bah Primary Care Provider Roma BenderP Primary Care Provider [phone] Neetu Bah Unavailable [phone] Lesia Tran MD Primary Care Provider + Carlos Muñiz RN Unavailable [phone] Carlos Muñiz RN Unavailable [phone] Jennifer Burgess Unavailable Reason for Visit * Reason Onset Date Comments New Patient 11/18/2022 Encounter Details Date Type Department Care Team (Late st Contact Info) Description 11/18/2022 Telephone [facility] MEDICINE [address] [place], [place] [phone] Koby Holland MD [address] [place], [place] [phone] New Patient Social History Tobacco Use Types [...] 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 EFFECTIVE SINCE 11/24/2022 * Telephone Encounter - Lisa Lopes - 11/18/2022 10:33 AM EDT Tc to Pt , informed that we do take insurance, but must call Apofore to change location. Once done, to please call back to facility at [phone] documented in this encounter Plan of Treatment Upcoming Encounters Date Type Department Care Team (Late st Contact Info) Description 02/07/2025 11:30 AM EST Office Visit [facility] MEDICINE [address] [place] [address] Lesia Tran MD [address] [place] [address] documented as of this encounter Visit Diagnoses Not on filedocumented in this encounter Care Teams Emc Storage Architect Relationship Specialty Start Date End Date Neetu Bah AGNP [address] [place] [phone] PCP - General Family Medicine 11/28/20 01/13/23 Roma Bender FNP [address] [place] [address] PCP - General Family Medicine 01/14/23 12/06/23 Lesia Tran MD [address] [place] [address] PCP - General Internal Medicine 12/07/23 Neetu Bah AGNP [address] [place] [phone] Family Medicine 01/14/23 09/02/23 Carlos Muñiz, RN [address] [place] [address] Registered Nurse Family Medicine 09/05/24 09/05/24 Carlos Muñiz RN [address] [place] [address] Registered Nurse Family Medicine 09/06/24 Jennifer Burgess 09/07/24 documented as of this encounter
--- OUTSIDE RECORDS SUMMARY | 2025-01-03 11:23 | XMS_ITS | Encounter Summary ---
Author Organization [employer] Address [address] [place] [address] 7t [place] [address] Care Team Providers Care Route Driver Coin Machines Name Role Phone Lesia Tran MD Primary Care Provider + Carlos Muñiz RN Unavailable [phone] Carlos Muñiz RN Unavailable [phone] Jennifer Burgess Unavailable Reason for Visit * Reason Onset Date Comments Med Refill 05/15/2024 Encounter Details Date Type Department Care Team (Late st Contact Info) Description 05/15/2024 Telephone [facility] MEDICINE [address] [place], [place] [phone] Lesia Tran MD [address] [place] [address] Med Refill Social History Tobacco Use Types [...] 9:47 AM EST Medication was sent to [facility] #[id number] on 05/01/24 with 1 refill. * Telephone Encounter - Kenisha Mtz - 05/15/2024 9:43 AM EST TC from pt requesting medication refill. Medications needing refill : hydrOXYzine pamoate (Vistaril) 25 MG capsule To be sent to: [facility]/pharmacy #[id number] - [place] [address] documented in this encounter Plan of Treatment Upcoming Encounters Date Type Department Care Team (Late st Contact Info) Description 02/07/2025 11:30 AM EST Office Visit [facility] MEDICINE [address] [place] [address] Lesia Tran MD [address] [place] [address] documented as of this encounter Visit Diagnoses Not on filedocumented in this encounter Additional Health Concerns Assessment Noted Time PHQ-9 Depression Total Score: 21 024 2:23 PM EST documented as of this encounter Care Teams Route Driver Coin Machines Relationship Specialty Start Date End Date Lesia Tran MD [address] [place] [address] PCP - General Internal Medicine 12/07/23 Carlos Muñiz, RN [address] [place] [address] Registered Nurse Family Medicine 09/05/24 09/05/24 Carlos Muñiz RN [address] [place] [address] Registered Nurse Family Medicine 09/06/24 Jennifer Burgess 09/07/24 documented as of this encounter
--- OUTSIDE RECORDS SUMMARY | 2025-01-03 11:23 | XMS_ITS | Encounter Summary ---
Author Organization [email or web address] Address [address] [place] [address] 7t [place] [address] Care Team Providers Care Metal And Plastic Heater Name Role Phone Neetu Bah Primary Care Provider Roma BenderP Primary Care Provider [phone] Neetu Bah Unavailable [phone] Lesia Tran MD Primary Care Provider + Carlos Muñiz RN Unavailable [phone] Carlos Muñiz RN Unavailable [phone] Jennifer Burgess Unavailable Encounter Details Date Type Department Care Team (Late st Contact Info) Description 09/29/2022 Abstract [facility] ADULT DENTAL [address] [place] [address] Trenton Wilkerson DDS [address] [place] [address] Social History Tobacco Use Types Packs/Day Years [...] Description 02/07/2025 11:30 AM EST Office Visit [facility] MEDICINE [address] [place] [address] Lesia Tran MD [address] [place] [address] documented as of this encounter Visit Diagnoses Not on filedocumented in this encounter Care Teams Metal And Plastic Heater Relationship Specialty Start Date End Date Neetu Bah AGNP [address] [place] [phone] PCP - General Family Medicine 11/28/20 01/13/23 Roma Bender FNP [address] [place] [address] PCP - General Family Medicine 01/14/23 12/06/23 Lesia Tran MD [address] [place] [address] PCP - General Internal Medicine 12/07/23 Neetu Bah AGNP [address] [place] [phone] Family Medicine 01/14/23 09/02/23 Carlos Muñiz, RN [address] [place] [address] Registered Nurse Family Medicine 09/05/24 09/05/24 Carlos Muñiz, RN [address] [place] [address] Registered Nurse Family Medicine 09/06/24 Jennifer Burgess 09/07/24 documented as of this encounter
--- OUTSIDE RECORDS SUMMARY | 2025-01-03 11:24 | XMS_ITS ---
Author Organization [employer] Address [address] [place] [address] 7t [place] [address] Care Team Providers Care Stopper Grinder Name Role Phone Lesia Tran MD Primary Care Provider + Carlos Muñiz RN Unavailable [phone] Jennifer Burgess Unavailable [facility] Complex Status:Enrolled (Active) Start date:09/07/2024 Enrollment date:09/12/2024 Overview Community Referral- Contacted by [facility] contact for patient with inpatient admission attributed to HHCthat requires assistance from CM program. Please see forwarded email for information and coordination of care with inpatient SW, Karen Burt at [facility]. He has recently been put on continuous O2 2L, hehas trouble ambulating and could also use nutrition education as well, Case Team Name Relationship Phone Jennifer Burgess(Responsible Staff) Continued Care and Services Coordination
--- OUTSIDE RECORDS SUMMARY | 2025-01-03 11:24 | XMS_ITS | Encounter Summary ---
Author Organization [employer] Address [address] [place] [address] 7t [place] [address] Care Team Providers Care Can Capper Name Role Phone Lesia Tran MD Primary Care Provider + Carlos Muñiz RN Unavailable [phone] Carlos Muñiz RN Unavailable [phone] Jennifer Burgess Unavailable Reason for Visit * Reason Onset Date Comments rs appt/disconnected call 06/29/2024 Encounter Details Date Type Department Care Team (Late st Contact Info) Description 06/29/2024 Telephone [facility] ADULT DENTAL [address] [place] [address] Trenton Wilkerson DDS [address] [place] [address] rs appt/disconnected call Social History Tobacco Use [...] While I was on the line with senior front end web developer [facility] the patient disconnected the call.. The appt [...] Office Visit [facility] MEDICINE [address] [place] [address] Lesia Tran MD [address] [place] [address] documented as of this encounter Visit Diagnoses Not on filedocumented in this encounter Additional Health Concerns Assessment Noted Time PHQ-9 Depression Total Score: 21 06/09/ 024 2:23 PM EST documented as of this encounter Care Teams Can Capper Relationship Specialty Start Date End Date Lesia Tran MD [address] [place] [address] PCP - General Internal Medicine 12/07/23 Carlos Muñiz, RN [address] [place] [address] Registered Nurse Family Medicine 09/05/24 09/05/24 Carlos Muñiz, RN [address] [place] [address] Registered Nurse Family Medicine 09/06/24 Jennifer Burgess 09/07/24 documented as of this encounter
--- OUTSIDE RECORDS SUMMARY | 2025-01-03 11:24 | XMS_ITS ---
Author Organization [employer] Address [address] [place] [address] [address]t [place] [address] Care Team Providers Care Hearing Therapy Director Name Role Phone Lesia Tran MD Primary Care Provider + Carlos Muñiz RN Unavailable [phone] Jennifer Burgess Unavailable CM Complex Status:Enrolled (Active) Start date:09/06/2024 Enrollment date:09/07/2024 Enrollment reason:Other Overview Community Referral- Contacted by [facility] contact for patient with inpatient admission attributed to HHCthat requires assistance from CM program. Please see forwarded email for information and coordination of care with inpatient SW, Karen Burt at [facility]. He has recently been put on continuous O2 2L, hehas trouble ambulating and could also use nutrition education as well, Case Team Name Relationship Phone Carlos Muñiz RN(Responsible Staff) Registered Manny tanner [phone] Continued Care and Services Coordination
--- NOTE | 2025-01-04 10:58 | MHC.SL.IMP ---
Date of Plan of Treatment: 01/03/25 Onset of Symptoms/Illness: 09/21/24 Date Treatment Started: 01/03/25 Admitting Diagnosis: GERD (gastroesophageal reflux disease) Pulmonary edema Opioid use disorder Acute exacerbation of moderate persistent extrinsic asthma Pneumonitis Opioid use disorder, severe, in early remission Polysubstance abuse Primary Speech & Language Diagnosis: R13.11 Oral Phase Dysphagia Reason for Today's Visit: 35761 Modified Barium Swallow Study Pre-evaluation Dietary Consistencies: Regular Pre-evaluation Liquid Consistency: Thin Pre-evaluation Medication Administration: Whole with Liquid Medical History: Modified Barium Swallow Study Fluoroscopic Evaluation of Swallowing Function CPT Code 31490 Evaluation Year: 2024 Reason for Study: ? microaspiration Referring Physician: Samantha Davis NP Evaluating Clinician: Arlene Sarmiento MA, CCC-TRAVEL REGISTERED NURSE PACU Study Number: 1 Patient Name: Yaniv Gutierrez Status: Outpatient, Ambulatory Age: 39 Sex: Male Medical History Medical History GERD (gastroesophageal reflux disease) Pulmonary edema Opioid use disorder Acute exacerbation of moderate persistent extrinsic asthma Pneumonitis Opioid use disorder, severe, in early remission Suicidal ideation Exocrine pancreatic insufficiency Polysubstance abuse No known health problems Surgical History Hx of tonsillectomy Current (pre-evaluation) Intake/Diet: Route: PO Diet Grade: Regular Liquid Consistencies: Thin Pre-Study Functional Oral Intake Scale (FOIS): 6- Total oral intake with no special preparation, but must avoid specific foods or liquid items Pain: None reported at time of study SUBJECTIVE: Patient is a 39 year old male referred for a modified barium swallow study (MBSS) by the Pulmonology office. Patient?s medical history includes GERD, pulmonary edema, pneumonitis, opioid use disorder, polysubstance abuse, and history of tonsillectomy. Patient is a former smoker, has underlying asthma, TYSON unable to tolerate CPAP, and nocturnal hypoxemia, and is followed by Pulmonology. Patient with reportedly persistent swallow difficulty with noted aspiration concerns, prompting this consult for MBSS. Patient reports difficulty chewing due to lack of dentition. Patient says he has dentures, but does not wear them because they do not fit well and make it even more difficult to chew solids. He reports he manages soft foods well, such as soft bread and rice, and mashes other foods, such as potato chips into smaller bits that are easier to chew. Patient says he had some trouble swallowing in the past, with previous symptoms of throat pain and globus sensation with solid intake, but reports his symptoms have since resolved the past few months. He denies coughing or choking with food/liquid intake. Oral Motor Exam Facial Symmetry: Symmetrical Mouth Occlusion: Normal Oral-Facial Teeth Characteristics: Edentulous Oral-Facial Lip Pucker Description: Normal Oral-Facial Smile (Lips) Description: Normal Oral-Facial Puff Cheeks Description: Normal Tongue Size: Normal Tongue Excursion Description: Normal Tongue Range of Movement Description: Normal Tongue Speed of Movement Description: Normal Tongue Strength of Movement (against opposing pressure): Normal Tongue Movement Characteristics: Normal/Absent Food and Liquid Trials: Oral Impairment: Lip Closure: Did not test Oral Impairment: Tongue Control During Bolus Hold: 2=Posterior escape of less than half of bolus Oral Impairment: Bolus Preparation/Mastication: 1=Slow prolonged chewing/mashing with complete re-collection Oral Impairment: Bolus Transport/Lingual Motion: 1= Delayed initiation of tongue motion Oral Impairment: Oral Residue: 1=Trace residue lining oral structures Oral Impairment:Initiation of Pharyngeal Swallow: 3=Bolus head in pyriforms Pharyngeal Impairment: Soft Palate Elevation: 0=No bolus between soft palate (SP)/pharyngeal wall (PW) Pharyngeal Impairment: Laryngeal Elevation: 0=Complete superior movement of thyroid cartilage (see description) Pharyngeal Impairment: Anterior Hyoid Excursion: 0=Complete anterior movement Pharyngeal Impairment: Epiglottic Movement: 0=Complete inversion Pharyngeal Impairment: Laryngeal Vestibular Closure:: 0=Complete: no air/contrast in laryngeal vestibule Pharyngeal Impairment: Pharyngeal Stripping Wave: 0=Present: complete Pharyngeal Impairment: Pharyngeal Contraction: Did not test Pharyngeal Impairment: Pharyngoesophageal Segment Openin=Complete distension and complete duration: no obstruction of flow Pharyngeal Impairment: Tongue Base (TB) Retraction: 1=Trace column of contrast/air between TB and posterior PW Pharyngeal Impairment: Pharyngeal Residue: 0=Complete pharyngeal clearance Pharyngeal Impairment: Esophageal Clearance Upright Position: Did not test Impressions and Recommendations OBJECTIVE: Time-out: performed at 10:45 Evaluation Start: 10:30; Stop: 10:35 Patient Positioning: Standing Viewing Planes: LATERAL ONLY Contrast: MBSImP? Standardized Protocol using commercially prepared, standardized Barium viscosities, including: Varibar? THIN LIQUID (40% w/v, <15 cps) , Varibar? PUDDING (40% w/v, <9585-6026 cps) , 1/2 Shortbread Cookie (1 x1 x.25 ) MBSImP ID: [id number] MBSImP Results: Lip closure for intraoral bolus containment could not be assessed due to logistical reasons not related to physiologic impairment. Tongue control during bolus hold resulted in posterior escape of less than half of the bolus. Bolus preparation and mastication resulted in slow, prolonged chewing/mashing but with complete re-collection. Bolus transport/lingual motion demonstrated delayed initiation of tongue motion. Oral residue was a trace, lining oral structures. Initiation of the pharyngeal swallow occurred when the bolus head was in the pyriform sinuses. Soft palate elevation resulted in no bolus between the soft palate and the pharyngeal wall. Laryngeal elevation demonstrated complete superior movement of the thyroid cartilage with complete approximation of the arytenoids to the epiglottic petiole. Anterior hyoid excursion demonstrated complete anterior movement. Epiglottic movement resulted in complete inversion. Laryngeal vestibular closure was complete, as indicated by no air or contrast within the laryngeal vestibule at the height of the swallow. Pharyngeal stripping wave was present and complete. Pharyngeal contraction could not be determined due to logistical reasons not related to physiologic impairment. Pharyngoesophageal segment opening was completely distended for complete duration with no obstruction of bolus flow. Tongue base retraction allowed a trace column of contrast or air between the retracted tongue base and the posterior pharyngeal wall. Pharyngeal residue was not present. There was complete pharyngeal clearance. Esophageal clearance in the upright position could not be assessed due to logistical reasons not related to physiologic impairment. Oral Impairment Score: 7 (absence of score, component 1) Pharyngeal Impairment Score: 0 (absence of score, component 13) Esophageal Impairment Score: --- (absence of score, component 17) Laryngeal Penetration and Aspiration: Neither penetration nor aspiration was observed in today's study with Cookie, Pudding-thick, Thin. ASSESSMENT: This exam was performed by the radiologist and the speech pathologist. Patient was standing for lateral view only. He fed himself independently and trialed the following consistencies: -thin (individual and sequential cup sips) -puree (mixture applesauce w/ barium pudding) -regular (shortbread cookie coated in barium pudding) Delayed lingual transport of bolus. There was premature spillage from the oral cavity with trace liquid pooling in the valleculae and pyriforms prior to initiation of the pharyngeal swallow trigger. Mastication was slowed, likely due to lack of dentition, with piece meal clearing of the oral cavity. Pharyngeal swallow trigger was delayed, initiated as the bolus head reached the pyriforms. Post swallow, there was trace lingual residue seen. No evidence of nasopharyngeal reflux. Complete laryngeal elevation with complete epiglottic inversion and laryngeal vestibular closure. No evidence of aspiration or penetration during this exam. Appreciated complete pharyngeal clearance. Liquid Intake Recommendation: Thin Liquid Intake Strategies: Unrestricted Dietary Recommendations: Regular Medication Administration: Whole with Liquid Please contact the pharmacy regarding appropriate crushable or liquid drug formulations that are available whenever modified delivery is recommended. Compensatory Strategies Recommended: Sitting Upright (90 deg), Small Bites and Sips, Alternate Liquids/Solids, Rate of Ingestion Change Recommendation for Speech Therapy: NA:Typical Evaluation Text Comment: Intake Recommendations: Route: PO Diet Grade: Regular Liquid Consistencies: Thin Post-Study Functional Oral Intake Scale (FOIS): 6- Total oral intake with no special preparation, but must avoid specific foods or liquid items Mild oral phase dysphagia, likely secondary to edentulous status, with slowed mastication, premature spillage, and delayed AP transit. Pharyngeal phase was unremarkable. Good airway protection, with complete epiglottic inversion and complete laryngeal vestibular closure. No evidence of aspiration or penetration during this exam. Complete pharyngeal clearance appreciated. Therapy Recommendations: Diet modification and further speech therapy services are not indicated at this time. Patient reports taking discretion when choosing foods and preparing his meals, due to his lack of dentition. Patient reports he opts for softer foods and mashes solids for easier chewing. Recommend patient avoid overly hard or tough to chew solids and moisten foods with sauces/gravies or ease of mastication. Follow up as indicated with referring dough machine operator. Clinician - Supplemental, Miscellaneous Communication: It is important to note MBSS objective studies are snapshots in time and Patient function might vary with factors such as time of day or concomitant medical conditions. For this reason, the final treatment plan for this patient should rest with their medical care team. Additional recommendations should be considered with the totality of the Patient in mind. Thank for the opportunity to participate in the care of this patient. If you have any questions about the content of this report, please contact the [facility] at [facility]. Education: Education regarding findings from today's study and plans for therapy were provided to Patient only through Verbal Instruction. Understanding was expressed by the Patient only. Maintenance Mechanic Helper Clinician/Clinical Fellow: No Supervisory Statement: N/A Speech Language Pathologist: Arlene Sarmiento M.A., CCC-TRAVEL REGISTERED NURSE PACU
== END 2025-01-03 10:09 | disposition home or self-care (01) ==
LOC: HO.XRAY 10:08
PROVIDERS: PCP Internal Medicine; Visit Provider Nurse Practitioner Family
DX: R13.11 Dysphagia, oral phase (principal)
CPT/HCPCS: 74230; 92611

== ENCOUNTER → 2025-01-03 10:30 | Outpatient (BNV) | payer MEDICAID, SELFPAY | PROVIDERS: PCP Internal Medicine; Visit Provider Radiology Diagnostic Radiology | DX: R13.10 Dysphagia, unspecified (principal) | CPT/HCPCS: 74230 ==

== ENCOUNTER 2025-01-04 10:47 | Outpatient (AMB) | payer MEDICAID, SELFPAY ==
--- NOTE | 2025-01-04 10:49 | MHC.OFFVIS ---
Vital Signs 01/04/25 10:51 Height 5 ft 7 in Weight 324 lb 1.272 oz BMI 50.8 BP 152/96 H Blood Pressure Location Rt brachial Position Sitting Pulse 102 H Pulse Source Pulse Oximeter Pulse Oximetry (%) 96 Oxygen Delivery Method Nasal Cannula Oxygen Flow Rate 3 Intake Visit Reasons: 3m Intake Note: ESTABLISHED PATIENT for mgmt of abd pain, N+V CC; Pt denies any new GI sx or changes since last visit. Pt confirms he is doing well with current therapies and has avoided returning to the ED for an extended period of time for the first instance in the last 3 years he says. Pt is very happy with his progress. He does request a new referral to [facility] Cardio as his specialist recently moved out of the area. Technology Sales Specialist Required: No Accompanied by: Family/Other Allergies Penicillins (PENICILLINS) Allergy (Unknown, Verified 01/04/25 10:49) RASH HPI HPI 3m: Details: LAST VISIT: Dysphagia Exocrine pancreatic insufficiency Chronic abdominal pain GERD (gastroesophageal reflux disease) Plan Patient denies any dysphagia, dyspepsia or odynophagia. Long discussion with patient and mom about dietary choices. Patient was encouraged to eat small bites and small meals decreased caloric intake avoid salt. Patient recently placed on Lasix if seen by his motel manager and has another follow-up appointment with him. Denies any melena, hematochezia. Continue senna and lactulose. Continue famotidine. Follow-up in 2-3 months. Patient was encouraged to call our office if he will have any GI concerning symptoms. Patient was encouraged to try to lose weight. He is agreeable to plan of care and verbalizes understanding of instructions. He was given the opportunity to ask questions and all questions answered. TODAY'S VISIT Patient is here today for follow-up. Patient reports that he has been doing better. He is no longer taking Creon. Denies any abdominal pain or bloating. Reports that he is moving his bowels without any issues. Take Senokot 2 tablets every evening. Occasionally patient will use MiraLax. Patient denies dyspepsia, dysphagia or odynophagia. Patient reports that he has been taking famotidine at bedtime. His symptoms of acid reflux are suppressed. Patient denies any GI symptoms today. Reports he has been feeling better in the past few months. Patient states that he no longer is following up with dietitian as he felt that it was not helpful. He has increased appetite and is month she all the time. Patient feels like he is always hungry. He gain weight again. PCP wanted to try G LP 1 for him to lose weight. He tried Zepbound however he was very sick when he was taking it. Patient was also over eating while he was taking that medication. ? [facility] Medical History GERD (gastroesophageal reflux disease) Pulmonary edema Opioid use disorder Acute exacerbation of moderate persistent extrinsic asthma Pneumonitis Opioid use disorder, severe, in early remission Suicidal ideation Exocrine pancreatic insufficiency Polysubstance abuse No known health problems Surgical History Hx of tonsillectomy Social History Household Members: Family Housing: House Do you presently have visiting nurse or other home services: No Alcohol intake: former Comment: sitter at bedside Patient Tobacco Use Status: Former Tobacco user Substance Use Type: Marijuana Advance Directives Date on File: 03/15/24 service: No Sexual orientation: Straight/Heterosexual Review of Systems Const Denies weight gain and Denies weight loss ENT Reports no additional complaints, Denies dysphagia and Denies odynophagia Card Reports no additional complaints Resp Reports no additional complaints GI Reports abdominal pain (Generalized), Denies belching, Denies melena, Reports bloating, Denies change in bowel habits, Reports constipation (Improved), Denies dysphagia, Denies excessive flatus, Denies dyspepsia, Reports heartburn (Improved), Denies diarrhea, Denies loose stools, Denies nausea, Denies odynophagia and Denies vomiting Reports no additional complaints Musc Reports no additional complaints Neuro Reports no additional complaints Psych Reports no additional complaints Endo Reports no additional complaints Physical Exam Vital Signs: BMI result Body Mass Index 50.8 Const Other: On oxygen at 2 L via nasal cannula General: cooperative, healthy appearing, comfortable and no acute distress Nutritional Appearance: obese and other (Sleepy) Orientation/consciousness: patient oriented x3 Neck Neck: Yes normal visual inspection, Yes full ROM and Yes trachea midline Resp Other: Patient is wearing oxygen Effort & Inspection: able to speak in complete sentences, no tracheal deviation and symmetric chest movement Auscultation: clear to auscultation bilaterally Cardio Rate: regular rate GI Inspection: Yes normal to inspection and No distended Palpation (GI): Soft to palpation, not firm, nontender and No hepatosplenomegaly present Auscultation: normal bowel sounds General: Yes no CVA tenderness Back/Spine/Pelvis Back: no CVA tenderness Skin General skin exam: elasticity normal, turgor normal and dry skin Neuro General: patient oriented x3 Psych Appearance: grossly normal Mental Status: mental status grossly normal Assessment & Plan Assessment & Plan (1) Dysphagia: Code(s): R13.10 - Dysphagia, unspecified Category: Medical Qualifiers: Dysphagia type: oropharyngeal phase Qualified Code(s): R13.12 - Dysphagia, oropharyngeal phase (2) Exocrine pancreatic insufficiency: Code(s): K86.81 - Exocrine pancreatic insufficiency Category: Medical (3) Chronic abdominal pain: Code(s): R10.9 - Unspecified abdominal pain; G89.29 - Other chronic pain Category: Medical (4) GERD (gastroesophageal reflux disease): Code(s): K21.9 - Gastro-esophageal reflux disease without esophagitis Category: Medical Qualifiers: Esophagitis presence: esophagitis presence not specified Qualified Code(s): K21.9 - Gastro-esophageal reflux disease without esophagitis Plan Patient will continue taking famotidine at bedtime. Avoid dietary triggers late night snacking. Patient was encouraged to eat small meals. Avoid over snacking. Patient is asking for cardiology referral here in whole you. Patient's motel manager to moved to [place] and he would like to come here. Referral sent. Patient will continue taking magnesium at bedtime and senna to help him move his bowels. Follow-up in 6 months, sooner on as needed basis. Patient should probably avoid G LP1's as he has a history of pancreatitis Patient is agreeable to this plan and verbalizes understanding of instructions. He was given the opportunity to ask questions and all questions answered. Thank you for allowing me to participate in his he care Orders: Referrals Cardiology Referral I42.9 - Cardiomyopathy, unspecified Medications: New famotidine 40 mg PO BEDTIME 90 tabs 4RF Changed From magnesium oxide 400 mg PO BEDTIME 30 days 30 tabs 0RF To magnesium oxide 400 mg PO BEDTIME 90 tabs 4RF Refilled sennosides-docusate sodium 8.6-50 mg (Senna Plus) 2 tabs PO BID 120 tabs 3RF 30 days Coding Level of Care Code Est Pt Level 4 (99766) Complex EM visit Add On G2211 Diagnoses Oropharyngeal dysphagia R13.12 Dysphagia type: oropharyngeal phase Exocrine pancreatic insufficiency K86.81 Chronic abdominal pain R10.9; G89.29 Gastroesophageal reflux disease, unspecified whether esophagitis present K21.9 Esophagitis presence: esophagitis presence not specified Time Spent (min) 35 Comment 25 minutes spent with patient and additional 10 minutes spent reviewing his records
[2025-01-04 10:51] VITALS: BP 152/96; PULSE 102; O2SAT 96; BMI 50.8
--- OUTSIDE RECORDS SUMMARY | 2025-01-04 12:37 | XMS_ITS | Encounter Summary ---
Author Organization [employer] Address [address] [facility] [address] [place] [address] Care Team Providers Care Engraver Wood Name Role Phone Lesia Amor MD Primary Care Provider + Carlos Muñiz RN Unavailable [phone] Jennifer Burgess Unavailable Reason for Referral * Consultation (Routine) - Authorized Specialty Diagnoses / Procedures Referred By Kevin fuentes Referred To Contact Urology Diagnoses Stress incontinence of urine Lesia Amor MD [address] [place] [address] Phone: tel: fax: [facility] [address] [place], [place] Phone: tel: fax: Referral ID Status Reason Start Date Expiration Date Visits Requested Visits Authorized [id number] Authorized Specialty Services Required 01/03/2025 01/02/2026 6 6 * Consultation (Routine) - Authorized Specialty Diagnoses / Procedures Referred By Kevin fuentes Referred To Contact Cardiology Diagnoses Pulmonary edema without heart failure Lesia Amor MD [address] [place] [address] Phone: tel: fax: [facility] [address] [place] [address] Phone: tel: fax: Referral ID Status Reason Start Date Expiration Date Visits Requested Visits Authorized [id number] Authorized Specialty Services Required 01/03/2025 01/02/2026 6 6 Scheduling Instructions Please refer to [facility] cardiology, he is previous cardiology moved out of [facility]. Reason for Visit * Reason Comments Care Management C3CM- F/U call # 4 Encounter Details Date Type Department Care Team (Late st Contact Info) Description 12/19/2024 Patient Outreach [facility] [address] [place] [address] [phone] Lesia Amor MD [address] [place] [place], [place] [phone] Care Management (C3CM- F/U call # 4) [...] with others, in a hotel, in a long-term, living outside on the street, on a [...] Patient reports that hereceived call from his wedding decorator office informing him that office moved to [place]. Patient s cheduled an appointment for 01/31/25 but patient would like to be referred to [facility] cardiovascular [address] because that is where he also sees his GI provider and it would be more convenient for him than traveling to [place]. CM agreed to send message to PCP. Patient reports that his depression is getting worse. Patient reports that he has a therapist and a psychiatrist that he speaks with every month. Patient denies any SI/HI and has crisis # available. Patient reports that his barium swallow test is scheduled on 01/03/25 @ 10:30 AM. CM checked [employer] and confirmed appointment. Patient reported that he [...] arranging for his mother to become his INSPECTOR PUBLICATIONS and has contacted [facility].Patient reports that he is scheduled for an GI appt at [facility] on 01/04/25 @ 11:15 PM. CM confirmed by looking in [employer]. Patient reports that he is scheduled at [facility] on 02/16/25. Patient reports that he has transportation for these appointments either through [employer] or his mom if availabl e. Patient reports that he saw his optical effects line up person on 12/11/24 and had a 6 minute walking test on 12/14/24. Patient reports that his optical effects line up person recommended that he be referred to a urologist. CM will send message to PCP. Lastly, pt reports that he has an appointment on Wednesday at [facility] to receive his RSV, pneumonia, and flu vaccine. No further questions or concerns. CM reinforced direct contact information for any additional questions or concerns. Education provided on [facility]In Urgent Care located in [facility] of [facility]. Patient provided with after-hours line for [facility], , which offer night time triage service and option to transfer to induction furnace operator provider if needed. Patient verbalizes understanding, and able to r epeat back to publicity writer. A follow up call will be placed within 10 days, patient agrees with plan. * Carlos Muñiz RN - 12/19/2024 9:40 AM EDT During previous follow up conversation, pt reported that he received a notification that he needed to find a new wedding decorator. Prior to calling patient today CM outreach [facility]. Was informed that statement was incorrect [...] Description 02/07/2025 11:30 AM EST Office Visit [facility] [address] [place], [place] [phone] Lesia Amor MD [address] [place], [place] [phone] Scheduled Referrals Name Type Priority Associated Diagnoses [...] documented as of this encounter Care Teams Engraver Wood Relationship Specialty Start Date End Date Lesia Amor MD [address] [place] [phone] PCP - General Internal Medicine 12/07/23 Carlos Muñiz RN [address] [place] [phone] Registered Nurse Family Medicine 09/06/24 Jennifer Burgess 09/07/24 documented as of this encounter
--- OUTSIDE RECORDS SUMMARY | 2025-01-04 12:37 | XMS_ITS | Encounter Summary ---
Author Organization [employer] Address [address] [place] [address] [address] [place] [address] Care Team Providers Care Banner Painter Name Role Phone Lesia Tran MD Primary Care Provider + Carlos Muñiz RN Unavailable [phone] Carlos Muñiz RN Unavailable [phone] Jennifer Burgess Unavailable Reason for Visit * Reason Onset Date Comments medication 02/02/2024 Encounter Details Date Type Department Care Team (Late st Contact Info) Description 02/02/2024 Telephone [facility] [address] [place] [address] Trenton Wilkerson DDS [address] [place] [address] medication Social History Tobacco Use Types Packs/Day [...] EST Office Visit [facility] [address] [place] [address] Lesia Tran MD [address] [place] [address] documented as of this encounter Visit Diagnoses Not on filedocumented in this encounter Additional Health Concerns Assessment Noted Time PHQ-9 Depression Total Score: 21 06/09/2 024 2:23 PM EST documented as of this encounter Care Teams Banner Painter Relationship Specialty Start Date End Date Lesia Tran MD [address] [place] [address] PCP - General Internal Medicine 12/07/23 Carlos Muñiz, ROXANN [address] [place] [address] Registered Nurse Family Medicine 09/05/24 09/05/24 Carlos Muñiz, ROXANN [address] [place] [address] Registered Nurse Family Medicine 09/06/24 Jennifer Burgess 09/07/24 documented as of this encounter
--- OUTSIDE RECORDS SUMMARY | 2025-01-04 12:37 | XMS_ITS | Encounter Summary ---
Author Organization [employer] Address [address] [place] [address] [address] [place] [address] Care Team Providers Care Transportation Attendant Name Role Phone Lesia Tran MD Primary Care Provider + Carlos Muñiz RN Unavailable [phone] Carlos Muñiz RN Unavailable [phone] Jennifer Burgess Unavailable Reason for Visit * Reason Onset Date Comments Med Refill 05/15/2024 Encounter Details Date Type Department Care Team (Late st Contact Info) Description 05/15/2024 Telephone [facility] [address] [place], [place] [phone] Lesia Tran MD [address] [place] [address] Med Refill Social History Tobacco Use Types [...] Medication was sent to [id number] on 05/01/24 with 1 refill. * Telephone Encounter - Kenisha Mtz - 05/15/2024 9:43 AM EST TC from pt requesting medication refill. Medications needing refill : hydrOXYzine pamoate (Vistaril) 25 MG capsule To be sent to: [facility]/pharmacy #[id number] - [place] [address] documented in this encounter Plan of Treatment Upcoming Encounters Date Type Department Care Team (Late st Contact Info) Description 02/07/2025 11:30 AM EST Office Visit [facility] [address] [place] [address] Lesia Tran MD [address] [place] [address] documented as of this encounter Visit Diagnoses Not on filedocumented in this encounter Additional Health Concerns Assessment Noted Time PHQ-9 Depression Total Score: 21 024 2:23 PM EST documented as of this encounter Care Teams Transportation Attendant Relationship Specialty Start Date End Date Lesia Tran MD [address] [place] [address] PCP - General Internal Medicine 12/07/23 Carlos Muñiz, RN [address] [place] [address] Registered Nurse Family Medicine 09/05/24 09/05/24 Carlos Muñiz RN [address] [place] [address] Registered Nurse Family Medicine 09/06/24 Jennifer Burgess 09/07/24 documented as of this encounter
--- OUTSIDE RECORDS SUMMARY | 2025-01-04 12:37 | XMS_ITS | Encounter Summary ---
Author Organization [employer] Address [address] [place] [address] [address] [place] [address] Care Team Providers Care Physician Relations Representative Name Role Phone Roma Bender Primary Care Provider [phone] Neetu Bah Unavailable Lesia Tran MD Primary Care Provider + Carlos Muñiz RN Unavailable [phone] Carlos Muñiz RN Unavailable [phone] Jennifer Burgess Unavailable Reason for Visit * Reason Onset Date Comments Medication Question 05/04/2023 Encounter Details Date Type Department Care Team (Late st Contact Info) Description 05/04/2023 Telephone [facility] [address] [place] [address] Roma Bender FNP [address] [place] [address] Medication Question Social History Tobacco Use Types [...] 50 MG tablet prescribed by pcp at [facility] today 05/04/23, was prescribed for 1 time daily but it was supposed to be 2 times daily. Any questions please contact [phone]. documented in this encounter Plan of Treatment Upcoming Encounters Date Type Department Care Team (Late st Contact Info) Description 02/07/2025 11:30 AM EST Office Visit [facility] [address] [place], [place] [phone] Lesia Tran MD [address] [place] [address] documented as of this encounter Visit Diagnoses Not on filedocumented in this encounter Additional Health Concerns Assessment Noted Time PHQ-9 Depression Total Score: 11 023 3:14 PM EDT documented as of this encounter Care Teams Physician Relations Representative Relationship Specialty Start Date End Date Roma Bender FNP [address] [place] [address] PCP - General Family Medicine 01/14/23 12/06/23 Lesia Tran MD [address] [place] [address] PCP - General Internal Medicine 12/07/23 Neetu Bah AGNP [address] [place] [phone] Family Medicine 01/14/23 09/02/23 Carlos Muñiz, ROXANN [address] [place] [address] Registered Nurse Family Medicine 09/05/24 09/05/24 Carlos Muñiz, ROXANN [address] [place] [address] Registered Nurse Family Medicine 09/06/24 Jennifer Burgess 09/07/24 documented as of this encounter
--- OUTSIDE RECORDS SUMMARY | 2025-01-04 12:37 | XMS_ITS | Clinical Summary ---
Author Organization [employer] Address [address] [facility] 7[address] [place] [address] Care Team Providers Care Betting Clerks Name Role Phone Andrea Amor MD Primary Care Provider + Carlos Muñiz RN Unavailable [phone] Jennifer Burgess Unavailable Allergies Active Allergy Reactions [...] shortness of breath or wheezing. 5 Active Magnesium Extra Strength 400 MG capsule Take 1 capsule by mouth at bedtime. 5 Active GaviLAX 17 GM/SCOOP powder Take 17 g by mouth 2 times daily. 4 Active clonazePAM (KlonoPIN) 0.5 MG tablet Take 0.5 mg by mouth if needed in the morning, at noon, and at bedtime for anxiety. Active pancrelipase, Zsl-Yspp-Ouxo, (Creon) 01194-05868 units capsule Take 2 capsules by mouth [...] by mouth Once per day. 90 tablet 5 Active divalproex (Depakote) 250 MG EC tabletIndicatio ns:Severe episode of recurrent major depressive disorder, without psychotic features (CMS/HCC) (HCC),Generaliz ed anxiety disorder with panic attacks Take 1 [...] as needed for moderate anxiety 30 tablet 5 Active lactulose (Chronulac) 10 GM/15ML solution Take 30 mL (20 g) by mouth if needed each day (constipation). 300 mL 5 Active Senexon-S 8.6-50 MG tablet TAKE 2 TABLETS BY MOUTH IN THE MORNING AND 2 TABLETS IN THE EVENING 360 tablet 5 Active ferrous sulfate 325 (65 Fe) MG EC tablet TAKE 1 TABLET BY MOUTH EVERY OTHER DAY SWALLOW WHOLE 45 tablet 5 Active Multiple Vitamin (Daily-Rip Multivitamin) tablet Take 1 tablet by mouth Once per day. 90 tablet 3 5 Active Semaglutide-Angel ght Management (Wegovy) 0.25 MG/0.5ML solution auto-injector Inject 0.5 mL (0.25 mg) under the skin 1 (one) time per week. 2 mL 2 5 Active Active Problems Problem Noted Date [...] 02/11/2024 Overview (02/11/2024): Sleep study at [facility]: moderate TYSON with nocturnal hypoxemia, <88% 24.1 minutes, lowest 77%. Assessment & Plan (06/20/2024 1:12 PM EDT): Pt has not been able to use CPAP, will call sleep specialist to check next appointment. Advised regarding weight reduction, consider Zepbound. Consider Hypoglossal nerve stimulator implant. Fu with sleep specialist. Assessment & Plan (02/11/2024 3:58 PM EST): Obtain results form Cardiology office ([facility]) Mild persistent asthma 02/11/2024 Assessment & Plan (02/11/2024 4:00 PM EST): Doing well on Breo, fu by [facility] pulmonary Advised re weight reduction. Declined Influenza [...] Plan (02/11/2024 4:01 PM EST): FU by [facility] GI, on Protonix, senna prn constipation Advised re weight reduction, may try Topamax after labs. Advised to avoid THC use Morbid obesity (CMS/HCC) 10/18/2023 Overview (10/18/2023): Last Addressed Date: 10/26/2022 [...] moderate intensity exercise. Will hold referral to family nurse until next appointment once anxiety is better [...] recurrent major depressive disorder, with psychotic features (CMS/HCC) 06/10/2023 Assessment & Plan (06/11/2023 9:01 AM EST): PROGRESS NOTE: ID: Yaniv is a 37 y.o. White [place] choose not to disclose-identified cis- male (pronouns [...] for 2.5 years, currently on methadone at [facility], 128mg with a plan on [...] intervention , [facility], and Patient [...] disability and he will follow-up with the state and [facility]. His VNA assist with methadone administration, [...] vaping cannabis Advised to reach out to cryolite recovery operator at the methadone program, avoid using any other recreational substance or alcohol Assessment & Plan (07/27/2024 2:58 PM EDT): >>ASSESSMENT AND PLAN FOR ANXIETY WRITTEN ON 02/11/2024 4:04 PM BY ANDREA AMOR MD Seen by MH provider at [facility], will bring meds at next appt. He feels safe at home and is able to reach out for safety. Assessment & Plan (06/20/2024 1:14 PM EDT): Recently started seeing psychiatry and medications, advised to fu closely with them next week. Advised to cut down on vaping cannabis. Pt feels safe at home, advised to reach out to therapist or cryolite recovery operator (he will request one at [...] dental clinic -sending relevant labs to [facility] and pt will f [...] EST): Doing well on Meth[facility] at [facility] has take home bottles Advised to decrease use of THC Encounters Date Type Department Care Team Description 12/25/2024 Patient Outreach [facility] MEDICINE [address] [place] [phone] Andrea Amor MD Care Coordination (C3 -[facility] Jennifer Burgess telephone call outreach ) 12/20/2024 Telephone [facility] MEDICINE [address] [place] [address] Andrea Amor MD Letter Request 12/19/2024 Patient Outreach [facility] MEDICINE [address] [place] [phone] Andrea Amor MD Care Management (C3- F/U call # 4) 12/15/2024 Orders Only [facility] External Provider, [facility] 12/07/2024 Patient Outreach [address] [address] Andrea Amor MD 12/05/2024 12:00 PM EDT Office Visit [address] [address] Andrea Amor MD Generalized anxiety disorder with panic attacks (Primary Dx); Stress incontinence of urine; Morbid obesity ([facility]) 12/05/2024 Travel 12/04/2024 Travel 11/29/2024 Telephone [facility] WALK-IN CENTER [address] [place] [phone] Andrea Amor MD Chart Prep 11/24/2024 Patient Outreach [address] [address] Andrea Amor MD 11/21/2024 Patient Outreach [address] [address] Andrea Amor MD 11/17/2024 Patient Outreach [address] [address] Andrea Amor MD Care Management (C3- Follow Up Call # 3) 11/15/[address] [address] Andrea Amor MD 11/09/2024 9:00 AM EDT Office Visit [facility] OPTOMETRY [address] [place] [phone] Clem, Ailyn, OD Myopia, bilateral (Primary Dx) 11/02/2024 Patient Outreach [address] [address] Andrea Amor MD Care Coordination (C3 -W Jennifer Burgess telephone call outreach) 10/31/2024 Telephone [address] [place] [address] Cheryl Watts, ESTIMATING ENGINEER Follow-up 10/31/2024 Patient Outreach [address] [address] Andrea Amor MD Care Management (C3CM- follow up call # 2) 10/24/2024 Orders Only GENERIC EXTERNAL DATA DEPARTMENT Provider, Generic External Data 10/23/2024 11:00 AM EDT Office Visit [facility] ADULT DENTAL [address] [place] [phone] Trenton Wilkerson DDS Mild persistent asthma, unspecified whether complicated 10/23/2024 Refill [facility] MEDICINE [address] [place] [phone] Andrea Amor MD 10/22/2024 Travel 10/20/[address] [address] Andrea Aomr MD Durable Medical Equipment (DME RX Pullup, Bathroom Grab Bars, Shower Bench(L&C)) 10/18/2024 Orders Only GENERIC EXTERNAL DATA DEPARTMENT Provider, Generic External Data 10/16/2024 Patient Outreach [address] [phone] Andrea Amor MD Care Coordination (C3 CM-W Jennifer Burgess telephone call outreach/) 10/15/2024 Orders Only GENERIC EXTERNAL DATA DEPARTMENT Provider, Generic External Data 10/11/2024 Refill [facility] MEDICINE [address] [place] [address] [phone] Andrea Amor MD from Last 3 Months [...] Questionnaire-9 Score 09/12/2024 Patient Health Questionnaire-9 Score 22 09/12/2024 Last PHQ-9: Questionnaire Data Not on file 0 09/12/2024 Housing Stability Answer Date Recorded What is your housing situation today? I do not have housing (Staying with others, in a hotel, in a snf, living outside on the street, on a [...] the past 12 months, has t he [employer], [employer], oil or water [employer] threatened to shut off services in your [...] Description 02/07/2025 11:30 AM EST Office Visit [facility] MEDICINE [address] [place], [place] [phone] Andrea Amor MD [address] [place], [place] [phone] Health Maintenance Due Date Last Done Comments Dental Prophylaxis 1985 Family Planning (PISQ) 06/23/2002 HPV Vaccines (1 - Male 3-dose series) 06/23/2002 Dental X-Ray: Bitewings 02/21/2015 02/20/2014 Dental Oral Exam 10/11/2024 04/12/2024, 02/20/2014 COVID-19 Vaccine ( season) 2024 09/11/2020, 07/30/2020 Depression Monitoring 03/14/2025 09/12/2024, 025 Diabetes: Hemoglobin A1C 06/20/2025 06/20/2024, 08/2023 SDOH Screening 09/12/2025 09/12/2024 Alcohol/Substance Use [...] AM EDT Narrative 01/03/2025 10:59 AM EDT [place] [address] Fluoroscopy Report Signed Patient: Yaniv Gutierrez MR#: [id number] : 1985 Acct:[id number] Age/Sex: 39 / M ADM Date: 01/03/25 Loc: HO.XRAY Attending Dr: Samantha Davis NP Ordering Physician: Samantha Davis NP Date of Service: 01/03/25 Procedure(s): FL Modified Barium Swallow Accession Number(s): [id number] cc: Andrea Amor MD; Samantha Davis NP [...] 01/03/25 1057 DD/ 1041 TD/TT: 01/03/25 1045 Activities Volunteer: Procedure Note Donotuseinterpreter, Image - 01/03/[address] [address] Fluoroscopy Report Signed Patient: Yaniv Gutierrez GMR#: [id number] : 1985Acct:[id number] Age/Sex: 39 / MADM Date: 01/03/25 Loc: HOADRIAN Attending Dr: Samantha Davis NP Ordering Physician: Samantha Davis NP Date of Service: 01/03/25 Procedure(s): FL Modified Barium Swallow Accession Number(s): [id number] cc: Andrea Amor MD; Samantha Davis NP [...] 01/03/25 1057 DD/ 1041 TD/TT: 01/03/25 1045 Activities Volunteer: [facility] External Provider IMG FLU OROSCOPY PROCEDURES Final Result * CT Chest w/o Contrast (12/16/2024 8:36 AM EDT) Anatomical Region Laterality Modality Body, Chest Computed Tomogra phy 12/16/2024 8:36 AM EDT Narrative 12/16/2024 8:38 AM EDT [place] [address] CT Scan Report Signed Patient: Yaniv Gutierrez MR#: [id number] : 1985 Acct:[id number] Age/Sex: 39 / M ADM Date: 12/15/24 Loc: HO.CT Attending Dr: Samantha Davis FRANCHISE SALES REPRESENTATIVE Ordering Physician: Samantha Davis NP Date of Service: 12/15/24 Procedure(s): CT chest wo IV con Accession Number(s): [id number] cc: Andrea Amor MD; Samantha Davis NP Report Number: [id number]: Total DLP = 320.00 mGy-cm Reason for Exam: Z87.01 - Personal history of pneumonia (recurrent) CLINICAL HISTORY: Z87.01 - Personal history of pneumonia (recurrent) CT [...] signed by Blake Licea MD in OV> 12/16/24836 DD/ 5 TD/TT: 12/16/24835 Activities Volunteer: Procedure Note Donmarlynanabellinterpreter, Image - 12/16/[address] [place] [address] [address] Scan Report Signed Patient: Yaniv Gutierrez GMR#: [id number] : 1985Acct:[id number] Age/Sex: 39 / MADM Date: 12/15/24 Loc: HO.CT Attending Dr: Samantha Davis FRANCHISE SALES REPRESENTATIVE Ordering Physician: Samantha Davis NP Date of Service: 12/15/24 Procedure(s): CT chest wo IV con Accession Number(s): [id number] cc: Andrea Amor MD; Samantha Davis NP Report Number: [id number]: Total DLP = 320.00 mGy-cm Reason for Exam: Z87.01 - Personal history of pneumonia (recurrent) CLINICAL HISTORY: Z87.01 - Personal history of pneumonia (recurrent) CT [...] signed by Blake Licea MD in OV> 12/16/24836 DD/ 5 TD/TT: 12/16/24835 Activities Volunteer: [facility] External Provider IMG CT PROCEDURES Final Result * (ABNORMAL) Hepatic Function Panel (10/24/2024 10:32 PM EDT) Bilirubin, Total 0.3 0.0 - 1.0 mg/dL [facility] Bilirubin, Direct 0.1 0.0 - 0.5 mg/dL [facility] Aspartate Amino Transferase 31 5 - 37 U/L [facility] Alanine Aminotransferase 29 0 - 40 U/L [facility] Total Protein 7.6 6.5 - 8.0 g/dL [facility] Albumin Level 3.7 3.5 - 5.0 g/dL [facility] Alkaline Phosphatase 121(H) 39 - 117 U/L [facility] 10/24/2024 10:3 2 PM EDT 10/24/2024 10:46 PM EDT us Generic External Data Provider LAB BLOOD ORDERAB LES Final Result [facility] [address] [place] [phone] * (ABNORMAL) Basic Metabolic Panel (10/24/2024 10:32 PM EDT) Pathologist [facility] Sodium 139 135 - 145 mmol/L [facility] Potassium 4.5 3.3 - 5.1 mmol/L [facility] Chloride 100 96 - 108 mmol/L [facility] Carbon Dioxide 31(H) 22 - 29 mmol/L [facility] Anion Gap 13 12 - 20 [facility] Urea Nitrogen (BUN) 10 9 - 16 mg/dL [facility] Creatinine, Serum 0.82 0.5 - 1.4 mg/dL [facility] Creatinine Clr Calc Pharmacy 167.8 [facility] Comment:eGFR (calculated fro m the MDRD study equation) and eCrCl(calculated from the Cockcroft-Gault equation) are based ondifferent parameters and may not yield comparable results.If eCrCl result is absurd, please check patient'sheight/weight. Estimated Glomerular Filt Rate >60 [facility] Comment:Chronic Kidney Disea se: Estimated GFR < 60 mL/min/1.59f2Qjnfhh Kidney Disease: Estimated GFR < 15 mL/min/1.73m2 Glucose 107 60 - 115 mg/dL [facility] Calcium 8.7 8.4 - 10.2 mg/dL [facility] 10/24/2024 10:3 2 PM EDT 10/24/2024 10:46 PM EDT us Generic External Data Provider LAB BLOOD ORDERAB LES Final Result [facility] [address] [place] [phone] [phone] * (ABNORMAL) CBC auto differential (10/24/2024 9:41 PM EDT) Only the most recent of2 resultswithin the time period is included. White Blood Count 14.9(H) 4.8 - 10.8 X10*3/uL [facility] Red Blood Count 4.57(L) 4.60 - 5.80 X10*6/uL [facility] Hemoglobin 12.1(L) 14.0 - 18.0 g/dl [facility] Hematocrit 38.2(L) 42.0 - 52.0 % [facility] Mean Corpuscular Volume 83.6 80.0 - 98.0 fL [facility] Mean Corpuscular Hemoglobin 26.5(L) 27.0 - 33.0 pg [facility] Mean Corpuscular HGB Conc 31.7 31.0 - 36.0 g/dl [facility] Red Cell Distribution Width 16.0 11.0 - 16.0 % [facility] Platelet Count 286 160 - 400 X10*3/uL [facility] Mean Platelet Volume 8.4(L) 9.4 - 12.4 fL [facility] Neutrophils Percent Auto 78.1(H) 45 - 73 % [facility] Imm Gran Pct Auto 0.8(H) 0.0 - 0.4 % [facility] Lymphocytes Percent Auto 9.1(L) 20 - 40 % [facility] Monocytes Percent Auto 8.2 2 - 11 % [facility] Eosinophils Percent Auto 3.5 0 - 4 % [facility] Basophils Percent Auto 0.3 0 - 2 % [facility] NRBC Pct Auto 0.0 0.0 - 0.2 /100WBC [facility] Neutrophils Absolute Auto 11.6(H) 2.0 - 8.3 x10*3/uL [facility] Imm Gran Abs Auto 0.12(H) 0.00 - 0.03 X10*3/uL [facility] Lymphocytes Absolute Auto 1.4 1.2 - 4.9 X10*3/uL [facility] Monocytes Absolute Auto 1.2 0.1 - 1.2 X10*3/uL [facility] Eosinophils Absolute Auto 0.5(H) 0.0 - 0.4 X10*3/uL [facility] Basophils Absolute Auto 0.1 0.0 - 0.2 X10*3/uL [facility] NRBC Abs Auto 0.000 0.0 - 0.012 X10*3/uL [facility] 10/24/2024 9:41 PM EDT 10/24/2024 9:48 PM EDT us Generic External Data Provider LAB BLOOD ORDERAB LES Final Result Performing Organization Address City/[facility]/ZIP Co de Phone Number [facility] [address] [place] [phone] * Ethanol (10/18/2024 11:28 AM EDT) ETHANOL (MG/DL) IN SER/PLAS <10 mg/dL [facility] Comment:Serum/plasma ethanol results are to be used formedical/treatment purposes only. 10/18/2024 11:2 8 AM EDT 10/18/2024 11:35 AM EDT us Generic External Data Provider LAB BLOOD ORDERAB LES Final Result Performing Organization Address City/[facility]/ZIP Co de Phone Number [facility] [address] [place] [phone] * Magnesium (10/18/2024 11:28 AM EDT) Pathologist [facility] Magnesium 2.0 1.6 - 2.6 mg/dL [facility] 10/18/2024 11:2 8 AM EDT 10/18/2024 11:35 AM EDT Generic External Data Provider LAB BLOOD ORDERAB LES Final Result [facility] [address] [place] [phone] * Lipase (10/18/2024 11:28 AM EDT) [facility] Lipase 14 8 - 78 U/L [facility] 10/18/2024 11:2 8 AM EDT 10/18/2024 11:35 AM EDT Generic External Data Provider LAB BLOOD ORDERAB LES Final Result Performing Organization Address City/[facility]/ZIP Co de Phone Number [facility] [address] [place] [phone] * (ABNORMAL) Comprehensive Metabolic Panel (10/18/2024 11:28 AM EDT) [facility] Sodium 135 135 - 145 mmol/L [facility] Potassium 4.5 3.3 - 5.1 mmol/L [facility] Chloride 99 96 - 108 mmol/L [facility] Carbon Dioxide 28 22 - 29 mmol/L [facility] Anion Gap 13 12 - 20 [facility] Urea Nitrogen (BUN) 15 9 - 16 mg/dL [facility] Creatinine, Serum 0.89 0.5 - 1.4 mg/dL [facility] Creatinine Clr Calc Pharmacy 139.9 [facility] Comment:eGFR (calculated fro m the MDRD study equation) and eCrCl(calculated from the Cockcroft-Gault equation) are based ondifferent parameters and may not yield comparable results.If eCrCl result is absurd, please check patient'sheight/weight. Estimated Glomerular Filt Rate >60 [facility] Comment:Chronic Kidney Disea se: Estimated GFR < 60 mL/min/1.94p4Lofizm Kidney Disease: Estimated GFR < 15 mL/min/1.73m2 Glucose 107 60 - 115 mg/dL [facility] Calcium 8.8 8.4 - 10.2 mg/dL [facility] Bilirubin, Total 0.5 0.0 - 1.0 mg/dL [facility] Aspartate Amino Transferase 33 5 - 37 U/L [facility] Alanine Aminotransferase 38 0 - 40 U/L [facility] Total Protein 8.2(H) 6.5 - 8.0 g/dL [facility] Albumin Level 4.1 3.5 - 5.0 g/dL [facility] Alkaline Phosphatase 143(H) 39 - 117 U/L [facility] 10/18/2024 11:2 8 AM EDT 10/18/2024 11:35 AM EDT us Generic External Data Provider LAB BLOOD ORDERAB LES Final Result [facility] [address] [place] [phone] * XR Chest 2 Views (10/15/2024 11:55 AM EDT) Anatomical Region Laterality Modality Chest Radiographic Elizabet ging 10/15/2024 11:5 5 AM EDT Narrative 10/15/2024 11:57 AM EDT [address] [address] XRay Report Signed Patient: Yaniv Gutierrez MR#: [id number] : 1985 Acct:[id number] Age/Sex: 39 / M ADM Date: 10/15/24 Loc: HO.ED Attending Dr: Ordering Physician: Layo Serrano DO Date of Service: 10/15/24 Procedure(s): XR chest 2V Accession Number(s): [id number] cc: Andrea Amor MD; Layo Serrano DO [...] 10/15/24 1156 DD/ 1155 TD/TT: 10/15/24 1155 Activities Volunteer: Procedure Note Donotuseinterpreter, Image - 10/15/[address] [address] XRay Report Signed Patient: Yaniv Gutierrez GMR#: [id number] : 1985Acct:[id number] Age/Sex: 39 / MADM Date: 10/15/24 Loc: .ED Attending Dr: Ordering Physician: Layo Serrano DO Date of Service: 10/15/24 Procedure(s): XR chest 2V Accession Number(s): [id number] cc: Andrea Amor MD; Layo Serrano DO [...] 10/15/24 1156 DD/ 1155 TD/TT: 10/15/24 1155 Activities Volunteer: [facility] External Provider IMG XR PROCEDURES Final Result * (ABNORMAL) Drug Monitoring, Panel 1, Screen, Urine (10/15/2024 11:01 AM EDT) Opiate Screen Urine Not Detected Not Detect [facility] Comment:Opiate cut-off is 30 0 ng/mL.Positive results are unconfirmed and should not be used fornon-medical purposes. Barbiturates, Urine Not Detected Not Detect [facility] Comment:Barbiturate cut-off is 200 ng/mL.Positive results are unconfirmed and should not be used fornon-medical purposes. Phencyclidine Screen Urine Not Detected Not Detect [facility] Comment:Phencyclidine cut-of f is 25 ng/mL.Positive results are unconfirmed and should not be used fornon-medical purposes. Amphetamine Screen Urine Not Detected Not Detect [facility] Comment:Amphetamine cut-off is 1000 ng/mL.Positive results are unconfirmed and should not be used fornon-medical purposes. Benzodiazepines Screen Urine Not Detected Not Detect [facility] Comment:Benzodiazepine cut-o ff is 200 ng/mL.Positive results are unconfirmed and should not be used fornon-medical purposes. Cocaine Screen Urine Not Detected Not Detect [facility] Comment:Cocaine cut-off is 3 00 ng/mL.Positive results are unconfirmed and should not be used fornon-medical purposes. Cannabinoid Screen Urine POSITIVE(A) Not Detect [facility] Comment:Cannabinoid cut-off is 50 ng/mL.Positive results are unconfirmed and should not be used fornon-medical purposes. Methadone Screen, Urine Positive(A) Not Detect ng/mL [facility] Comment:Methadone cut-off is 300 ng/mL.Positive results are unconfirmed and should not be used fornon-medical purposes. FENTANYL URINE Not Detected Not Detect [facility] Comment:Fentanyl cut-off is 1 ng/mL.Positive results are unconfirmed and should not be used fornon-medical purposes. Oxycodone Urine Screen Not Detected Not Detect ng/mL [facility] Comment:Oxycodone cut-off is 100 ng/mL.Positive results are unconfirmed and should not be used fornon-medical purposes. Buprenorphine Screen Not Detected Not Detect ng/mL [facility] Comment:Buprenorphine cut-of f is 5 ng/mL.Positive results are unconfirmed and should not be used fornon-medical purposes. 10/15/2024 11:0 1 AM EDT 10/15/2024 11:06 AM EDT Generic External Data Provider LAB URINE ORDERAB LES Final Result Performing Organization Address [facility] Co de Phone Number [facility] [address] [place] [phone] * Culture, Urine, Routine (10/15/2024 11:01 AM EDT) Urine Urine specimen obtained by clean catch procedure / Unknown 10/15/2024 11:01 AM EDT 10/15/2024 11:06 AM EDT Comment:UACC Narrative [facility] - 10/16/2024 12:22 PM EDT Urine Culture No growth. Specimen Source: Urine clean catch Generic External Data Provider LAB MICROBIOLOGY - GENERAL ORDERABLES Final Result Performing Organization Address [facility] Co de Phone Number [facility] [address] [place] [phone] * (ABNORMAL) Lipid Panel with Reflex to Direct LDL (09/19/2024 3:15 PM EDT) Triglycerides 304(H) <150 mg/dL [facility] Comment:Desirable Triglyceri de: less than 150 mg/dLBorderline High Triglyceride 150-199 mg/dLHigh Triglyceride: 200-499 mg/dLVery High Triglyceride: greater than or equal to 5OO mg/dL Cholesterol 184 <200 mg/dL [facility] Comment:Desirable Cholestero l: less than 200 mg/dLBorderline High Cholesterol: 200-239 mg/dLHigh Cholesterol: greater than 239 mg/dL LDL Cholesterol Calculated 81 <100 mg/dL [facility] Comment:Desirable LDL: less than 100 mg/dLNear Optimal/Above Optimal LDL: 110- 129 mg/dLBorderline High LDL: 130-159 mg/dLHigh LDL: 160-189 mg/dLVery High LDL: greater than or equal to 190 mg/dL HDL Cholesterol 43 >40 mg/dL [facility] Comment:Desirable HDL: grea ter than 40 mg/dL Note: This HDL assay may give artificially low results in patients with liver disease. Blood 09/19/2024 3:15 PM EDT 09/19/2024 4:08 PM EDT Andrea Amor MD LAB BLOOD ORDERABLES Fin al Result [facility] [address] [place] [phone] * POCT HGB A1C (06/20/2024 12:05 PM EDT) Hemoglobin A1C 6.0 4.0 - 6.0 % QC Media Lot # [id number] Lot# Expiration Date , Blood 06/20/2024 12:0 5 PM EDT Andrea Amor MD POINT OF CARE TEST ENTER /EDIT ORDERABLES Final Result from Last 3 Months or Most Recently Relevant to Health Maintenance Insurance [facility] C[place] AD[place] Care Teams Betting Clerks Relationship Specialty Start Date End Date Andrea Amor MD [address] [place] [address] PCP - General Internal Medicine 12/07/23 Carlos Muñiz, ROXANN [address] [place] [address] Registered Nurse Family Medicine 09/06/24 Jennifer Burgess 09/07/24
--- OUTSIDE RECORDS SUMMARY | 2025-01-04 12:37 | XMS_ITS ---
Author Organization [employer] Address [address] [place] [address] 7t [place] [address] Care Team Providers Care Psychologist Educational Name Role Phone Lesia Tran MD Primary Care Provider + Carlos Muñiz RN Unavailable [phone] Jennifer Burgess Unavailable CHW Complex Status:Enrolled (Active) Start date:09/07/2024 Enrollment date:09/12/2024 Overview Community Referral- Contacted by [facility] contact for patient with inpatient admission attributed to HHCthat requires assistance from CM program. Please see forwarded email for information and coordination of care with inpatient SW, Karen Burt at [facility]. He has recently been put on continuous O2 2L, hehas trouble ambulating and could also use nutrition education as well, Case Team Name Relationship Phone Jennifer Burgess(Responsible Staff) Continued Care and Services Coordination
--- OUTSIDE RECORDS SUMMARY | 2025-01-04 12:37 | XMS_ITS | Encounter Summary ---
Author Organization [employer] Address [address] [place] [address] 7t [place] [address] Care Team Providers Care Director Geothermal Operations Name Role Phone Neetu Bah Primary Care Provider Roma BenderP Primary Care Provider [phone] Neetu Bah Unavailable [phone] Lesia Tran MD Primary Care Provider + Carlos Muñiz RN Unavailable [phone] Carlos Muñiz RN Unavailable [phone] Jennifer Burgess Unavailable Reason for Visit * Reason Onset Date Comments New Patient 11/18/2022 Encounter Details Date Type Department Care Team (Late st Contact Info) Description 11/18/2022 Telephone [facility] MEDICINE 230 [place], [place] [phone] Koby Holland MD 230 [place], [place] [phone] New Patient Social History Tobacco Use Types [...] been transfer over to wait list for [employer] [facility] SINCE 11/24/2022 * Telephone Encounter - Lisa Lopes - 11/18/2022 10:33 AM EDT Tc to Pt , informed that we do take insurance, but must call [employer] to change location. Once done, to please call back to facility at [phone] documented in this encounter Plan of Treatment Upcoming Encounters Date Type Department Care Team (Late st Contact Info) Description 02/07/2025 11:30 AM EST Office Visit [facility] MEDICINE [address] [place] [address] Lesia Tran MD [address] [place] [address] documented as of this encounter Visit Diagnoses Not on filedocumented in this encounter Care Teams Director Geothermal Operations Relationship Specialty Start Date End Date Neetu Bah AGNP [address] [place] [phone] PCP - General Family Medicine 11/28/20 01/13/23 Roma Bender FNP [address] [place] [address] PCP - General Family Medicine 01/14/23 12/06/23 Lesia Tran MD [address] [place] [address] PCP - General Internal Medicine 12/07/23 Neetu Bah AGNP [address] [place] [phone] Family Medicine 01/14/23 09/02/23 Carlos Muñiz, RN 505 [place] [address] Registered Nurse Family Medicine 09/05/24 09/05/24 Carlos Muñiz RN [address] [place] [address] Registered Nurse Family Medicine 09/06/24 Jennifer Burgess 09/07/24 documented as of this encounter
--- OUTSIDE RECORDS SUMMARY | 2025-01-04 12:37 | XMS_ITS | Encounter Summary ---
Author Organization [employer] Address [address] [place] [address] 7t [place] [address] Care Team Providers Care Correctional Supply Supervisor Name Role Phone Neetu Bah Primary Care Provider Roma BenderP Primary Care Provider [phone] Neetu Bah Unavailable [phone] Lesia Tran MD Primary Care Provider + Carlos Muñiz RN Unavailable [phone] Carlos Muñiz RN Unavailable [phone] Jennifer Burgess Unavailable Encounter Details Date Type Department Care Team (Late st Contact Info) Description 09/29/2022 Abstract [facility] ADULT DENTAL [address] [place] [address] Trenton Wilkerson DDS [address] [place] [address] Social History Tobacco Use Types Packs/Day Years [...] Visit [facility] MEDICINE [address] [place] [address] Lesia Tran MD 230 [place] [address] documented as of this encounter Visit Diagnoses Not on filedocumented in this encounter Care Teams Correctional Supply Supervisor Relationship Specialty Start Date End Date Neetu Bah AGNP [address] [place] [phone] PCP - General Family Medicine 11/28/20 01/13/23 Roma Bender FNP [address] [place] [address] PCP - General Family Medicine 01/14/23 12/06/23 Lesia Tran MD 230 [place] [address] PCP - General Internal Medicine 12/07/23 Neetu Bah AGNP [address] [place] [phone] Family Medicine 01/14/23 09/02/23 Carlos Muñiz, RN [address] [place] [address] Registered Nurse Family Medicine 09/05/24 09/05/24 Carlos Muñiz, RN [address] [place] [address] Registered Nurse Family Medicine 09/06/24 Jennifer Burgess 09/07/24 documented as of this encounter
--- OUTSIDE RECORDS SUMMARY | 2025-01-04 12:37 | XMS_ITS | Encounter Summary ---
Author Organization [employer] Address [address] [place] [address] 7t [place] [address] Care Team Providers Care Operator Technician Name Role Phone Lesia Tran MD Primary Care Provider + Carlos Muñiz RN Unavailable [phone] Carlos Muñiz RN Unavailable [phone] Jennifer Burgess Unavailable Reason for Visit * Reason Onset Date Comments Nurse Triage 06/16/2024 Encounter Details Date Type Department Care Team (Late st Contact Info) Description 06/16/2024 Telephone [facility] MEDICINE 230 [place], [place] [phone] Lesia Tran MD 230 [place], [place] [phone] Nurse Triage Social History Tobacco Use Types [...] the past 12 months, has t he [employer], gas, oil or water [employer] threatened to shut off services in your [...] from yesterday as he was in [facility] ED ( note requested) [...] is in agreement to reach out to [facility] and Crisis as needed. Has [...] had contact with Care Coordinators here at [facility] and is requesting additional help. Patient agrees to have [facility] reach out to him with worsening symptoms. [facility] [...] 06/16/2024 10:29 AM EDT Please obtain [facility] ED note from visit on 06/15/24. Patient scheduled with PCP on Wednesday06/20/24. * Telephone Encounter - Kenisha Mtz - 06/16/2024 9:52 AM EDT Symptoms: Abdominal Pain - Male, Abdominal Swelling Outcome: Schedule an urgent appointment (within 4 hours) or talk to a nurse or provider soon Reason: Started within the past 3 days The caller accepted this outcome. [phone] documented in this encounter Plan of Treatment Upcoming Encounters Date Type Department Care Team (Late st Contact Info) Description 02/07/2025 11:30 AM EST Office Visit [facility] MEDICINE [address] [place] [address] Lesia Tran MD 230 [place] [address] documented as of this encounter Visit Diagnoses Not on filedocumented in this encounter Additional Health Concerns Assessment Noted Time PHQ-9 Depression Total Score: 21 024 2:23 PM EST documented as of this encounter Care Teams Operator Technician Relationship Specialty Start Date End Date Lesia Tran MD 230 [place] [address] PCP - General Internal Medicine 12/07/23 Carlos Muñiz RN 505 [place] [address] Registered Nurse Family Medicine 09/05/24 09/05/24 Carlos Muñiz RN [address] [place] [address] Registered Nurse Family Medicine 09/06/24 Jennifer Burgess 09/07/24 documented as of this encounter
--- OUTSIDE RECORDS SUMMARY | 2025-01-04 12:37 | XMS_ITS | Encounter Summary ---
Author Organization [employer] Address [address] [facility] 7t [place] [address] Care Team Providers Care Reinforced Ironworker Name Role Phone Roma Bender Primary Care Provider [phone] Neetu Bah Unavailable Lesia Tran MD Primary Care Provider + Carlos Muñiz RN Unavailable [phone] Carlos Muñiz RN Unavailable [phone] Jennifer Burgess Unavailable Encounter Details Date Type Department Care Team (Late st Contact Info) Description 02/19/2023 Orders Only [facility] MED & PEDS [address] [place] [address] Roma Bender FNP [address] [place] [address] Other acute gastritis, presence of bleeding unspecified [...] 11:30 AM EST Office Visit [facility] MEDICINE [address] [place] [address] Lesia Tran MD 230 [place] [address] documented as of this encounter Visit Diagnoses Diagnosis Other acute gastritis, presence of bleeding unspecified- Primary documented in this encounter Additional Health Concerns Assessment Noted Time PHQ-9 Depression Total Score: 11 023 3:14 PM EDT documented as of this encounter Care Teams Reinforced Ironworker Relationship Specialty Start Date End Date Roma Bender FNP [address] [place] [address] PCP - General Family Medicine 01/14/23 12/06/23 Lesia Tran MD [address] [place] [address] [phone] PCP - General Internal Medicine 12/07/23 Neetu Bah AGNP [address] [place] [phone] Family Medicine 01/14/23 09/02/23 Carlos Muñiz, RN [address] [place] [address] Registered Nurse Family Medicine 09/05/24 09/05/24 Carlos Muñiz, ROXANN [address] [place] [address] Registered Nurse Family Medicine 09/06/24 Jennifer Burgess 09/07/24 documented as of this encounter
--- OUTSIDE RECORDS SUMMARY | 2025-01-04 12:37 | XMS_ITS | Encounter Summary ---
Author Organization [employer] Address [address] [place] [address] 7t [place] [address] Care Team Providers Care Mushroom Packer Name Role Phone Lesia Tran MD Primary Care Provider + Carlos Muñiz RN Unavailable [phone] Carlos Muñiz RN Unavailable [phone] Jennifer Burgess Unavailable Reason for Visit * Reason Onset Date Comments rs appt/disconnected call 06/29/2024 Encounter Details Date Type Department Care Team (Late st Contact Info) Description 06/29/2024 Telephone [facility] ADULT DENTAL 230 [place] [address] Trenton Wilkerson DDS [address] [place] [address] rs appt/disconnected call Social History Tobacco Use [...] was on the line with front office representative [facility] the patient disconnected the call.. The [...] [facility] MEDICINE [address] [place] [address] Lesia Tran MD 230 [place] [address] documented as of this encounter Visit Diagnoses Not on filedocumented in this encounter Additional Health Concerns Assessment Noted Time PHQ-9 Depression Total Score: 21 06/09/ 024 2:23 PM EST documented as of this encounter Care Teams Mushroom Packer Relationship Specialty Start Date End Date Lesia Tran MD 230 [place] [address] PCP - General Internal Medicine 12/07/23 Carlos Muñiz, RN [address] [place] [address] Registered Nurse Family Medicine 09/05/24 09/05/24 Carlos Muñiz, RN [address] [place] [address] Registered Nurse Family Medicine 09/06/24 Jennifer Burgess 09/07/24 documented as of this encounter
--- OUTSIDE RECORDS SUMMARY | 2025-01-04 12:37 | XMS_ITS | Encounter Summary ---
Author Organization [employer] Address [address] [place] [address] 7t [place] [address] Care Team Providers Care Tar Leveler Name Role Phone Neetu aBh Primary Care Provider Roma BenderP Primary Care Provider [phone] Neetu Bah Unavailable [phone] Lesia Tran MD Primary Care Provider + Carlos Muñiz RN Unavailable [phone] Carlos Muñiz RN Unavailable [phone] Jennifer Burgess Unavailable Encounter Details Date Type Department Care Team (Late st Contact Info) Description 09/29/2022 Abstract [facility] ADULT DENTAL [address] [place] [address] Trenton Wilkerson DDS [address] [place] [address] Social History Tobacco Use Types Packs/Day Years [...] [facility] MEDICINE [address] [place] [address] Lesia Tran MD 230 [place] [address] documented as of this encounter Visit Diagnoses Not on filedocumented in this encounter Care Teams Tar Leveler Relationship Specialty Start Date End Date Neetu Bah AGNP [address] [place] [phone] PCP - General Family Medicine 11/28/20 01/13/23 Roma Bender FNP [address] [place] [address] PCP - General Family Medicine 01/14/23 12/06/23 Lesia Tran MD 230 [place] [address] PCP - General Internal Medicine 12/07/23 Neetu Bah AGNP [address] [place] [phone] Family Medicine 01/14/23 09/02/23 Carlos Muñiz, RN [address] [place] [address] Registered Nurse Family Medicine 09/05/24 09/05/24 Carlos Muñiz, RN [address] [place] [address] Registered Nurse Family Medicine 09/06/24 Jennifer Burgess 09/07/24 documented as of this encounter
--- OUTSIDE RECORDS SUMMARY | 2025-01-04 12:37 | XMS_ITS ---
Author Organization [employer] Address [address] [place] [address] 7t [place] [address] Care Team Providers Care Board Member Name Role Phone Lesia Tran MD Primary Care Provider + Carlos Muñiz RN Unavailable [phone] Jennifer Burgess Unavailable CM Complex Status:Enrolled (Active) Start date:09/06/2024 Enrollment date:09/07/2024 Enrollment reason:Other Overview Community Referral- Contacted by [facility] contact for patient with inpatient admission attributed to HHCthat requires assistance from CM program. Please see forwarded email for information and coordination of care with inpatient SW, Karen Burt at [facility]. He has recently been put on continuous O2 2L, hehas trouble ambulating and could also use nutrition education as well, Case Team Name Relationship Phone Carlos Muñiz RN(Responsible Staff) Registered Manny tanner [phone] Continued Care and Services Coordination
--- OUTSIDE RECORDS SUMMARY | 2025-01-04 12:37 | XMS_ITS | Clinical Summary ---
Author Organization [facility] Address [address] [place] [address] Phone Care Team Providers Care Fund Raiser Name Role Phone Az Terrell Primary Care Provider [phone] Immunizations Immunization Administration Dates Next Due DTP [...] age to complete this topic Care Teams Fund Raiser Relationship Specialty Start Date End Date Az Terrell [address] [place] [address] PCP - General 11/13/16
--- OUTSIDE RECORDS SUMMARY | 2025-01-04 12:37 | XMS_ITS | Encounter Summary ---
Author Organization [employer] Address [address] [place] [address] 7t [place] [address] Care Team Providers Care Machine Sole Leveler Name Role Phone Neetu Bah Primary Care Provider Roma BenderP Primary Care Provider [phone] Neetu Bah Unavailable [phone] Lesia Tran MD Primary Care Provider + Carlos Muñiz RN Unavailable [phone] Carlos Muñiz RN Unavailable [phone] Jennifer Burgess Unavailable Encounter Details Date Type Department Care Team (Late st Contact Info) Description 09/28/2022 Abstract [facility] ADULT DENTAL [address] [place] [address] Trenton Wilkerson DDS [address] [place] [address] Social History Tobacco Use Types Packs/Day Years [...] Description 02/07/2025 11:30 AM EST Office Visit [facility] MEDICINE [address] [place] [address] Lesia Tran MD 230 [place] [address] documented as of this encounter Visit Diagnoses Not on filedocumented in this encounter Care Teams Machine Sole Leveler Relationship Specialty Start Date End Date Neetu Bah AGNP [address] [place] [phone] PCP - General Family Medicine 11/28/20 01/13/23 Roma Bender FNP [address] [place] [address] PCP - General Family Medicine 01/14/23 12/06/23 Lesia Tran MD [address] [place] [address] PCP - General Internal Medicine 12/07/23 Neetu Bah AGNP [address] [place] [phone] Family Medicine 01/14/23 09/02/23 Carlos Muñiz, RN [address] [place] [address] Registered Nurse Family Medicine 09/05/24 09/05/24 Carlos Muñiz, RN [address] [place] [address] Registered Nurse Family Medicine 09/06/24 Jennifer Burgess 09/07/24 documented as of this encounter
== END 2025-01-04 11:09 | disposition home or self-care (01) ==
LOC: HO.HGI 10:48
PROVIDERS: PCP Internal Medicine; Visit Provider Nurse Practitioner Family
DX: R13.12 Dysphagia, oropharyngeal phase (principal); K86.81 Exocrine pancreatic insufficiency; R10.9 Unspecified abdominal pain; G89.29 Other chronic pain; K21.9 Gastro-esophageal reflux disease without esophagitis
CPT/HCPCS: 99214

== ENCOUNTER → 2025-01-04 10:47 | Outpatient (BNVA) | payer MEDICAID, SELFPAY | PROVIDERS: PCP Internal Medicine; Visit Provider Nurse Practitioner Family | DX: R13.12 Dysphagia, oropharyngeal phase (principal); K86.81 Exocrine pancreatic insufficiency; R10.9 Unspecified abdominal pain; G89.29 Other chronic pain; K21.9 Gastro-esophageal reflux disease without esophagitis | CPT/HCPCS: 99212 ==

== ENCOUNTER → 2025-01-18 20:30 | Outpatient (REF) | payer MEDICAID, SELFPAY ==
--- OUTSIDE RECORDS SUMMARY | 2025-01-18 21:24 | XMS_ITS | Encounter Summary ---
Author Organization [employer] Address [address] [place] [address] 7t [place] [address] Care Team Providers Care Client Services Representative Name Role Phone Lesia Tran MD Primary Care Provider + Carlos Muñiz RN Unavailable [phone] Carlos Muñiz RN Unavailable [phone] Jennifer Burgess Unavailable Reason for Visit * Reason Onset Date Comments Nurse Triage 06/16/2024 Encounter Details Date Type Department Care Team (Late st Contact Info) Description 06/16/2024 Telephone [facility] MEDICINE [address] [place], [place] [phone] Lesia Tran MD 230 [place], [place] [phone] Nurse Triage Social History Tobacco Use Types [...] the past 12 months, has t he [employer], gas, oil or water [employer] threatened to shut off services in your [...] additional help. Patient agrees to have [facility] reach out to him with worsening symptoms. [facility] and message to [facility] sent. Disposition reviewed and patient [...] 3 days The caller accepted this outcome. [phone] documented in this encounter Plan of Treatment Upcoming Encounters Date Type Department Care Team (Late st Contact Info) Description 02/07/2025 11:30 AM EST Office Visit [facility] MEDICINE [address] [place] [address] Lesia Tran MD 230 [place] [address] documented as of this encounter Visit Diagnoses Not on filedocumented in this encounter Additional Health Concerns Assessment Noted Time PHQ-9 Depression Total Score: 21 024 2:23 PM EST documented as of this encounter Care Teams Client Services Representative Relationship Specialty Start Date End Date Lesia Tran MD 230 [place] [address] PCP - General Internal Medicine 12/07/23 Carlos Muñiz RN [address] [place] [address] Registered Nurse Family Medicine 09/05/24 09/05/24 Carlos Muñiz RN [address] [place] [address] Registered Nurse Family Medicine 09/06/24 Jennifer Burgess 09/07/24 documented as of this encounter
--- OUTSIDE RECORDS SUMMARY | 2025-01-18 21:24 | XMS_ITS | Encounter Summary ---
Author Organization [employer] Address [address] [place] [address] 7 [place] [address] Care Team Providers Care Sports Medicine Specialist Name Role Phone Lesia Tran MD Primary Care Provider + Carlos Muñiz RN Unavailable [phone] Carlos Muñiz RN Unavailable [phone] Jennifer Burgess Unavailable Reason for Visit * Reason Onset Date Comments Med Refill 05/15/2024 Encounter Details Date Type Department Care Team (Late st Contact Info) Description 05/15/2024 Telephone [facility] MEDICINE 230 [place], [place] [phone] Lesia Tran MD 230 [place] [address] Med Refill Social History Tobacco Use Types [...] 9:47 AM EST Medication was sent to [facility][id number] on 05/01/24 with 1 refill. * Telephone Encounter - Kenisha Mtz - 05/15/2024 9:43 AM EST TC from pt requesting medication refill. Medications needing refill : hydrOXYzine pamoate (Vistaril) 25 MG capsule To be sent to: [facility]/pharmacy #[id number] - [place] [address] documented in this encounter Plan of Treatment Upcoming Encounters Date Type Department Care Team (Late st Contact Info) Description 02/07/2025 11:30 AM EST Office Visit [facility] MEDICINE [address] [place] [address] Lesia Tran MD [address] [place] [address] documented as of this encounter Visit Diagnoses Not on filedocumented in this encounter Additional Health Concerns Assessment Noted Time PHQ-9 Depression Total Score: 21 024 2:23 PM EST documented as of this encounter Care Teams Sports Medicine Specialist Relationship Specialty Start Date End Date Lesia Tran MD [address] [place] [address] PCP - General Internal Medicine 12/07/23 Carlos Muñiz, RN [address] [place] [address] Registered Nurse Family Medicine 09/05/24 09/05/24 Carlos Muñiz RN [address] [place] [address] Registered Nurse Family Medicine 09/06/24 Jennifer Burgess 09/07/24 documented as of this encounter
--- OUTSIDE RECORDS SUMMARY | 2025-01-18 21:24 | XMS_ITS | Encounter Summary ---
Author Organization [employer] Address [address] [place] [address] 7t [place] [address] Care Team Providers Care Animal Cruelty Investigator Name Role Phone Neetu Bah Primary Care Provider Roma BenderP Primary Care Provider [phone] Neetu Bah Unavailable [phone] Lesia Tran MD Primary Care Provider + Carlos Muñiz RN Unavailable [phone] Carlos Muñiz RN Unavailable [phone] Jennifer Burgess Unavailable Encounter Details Date Type Department Care Team (Late st Contact Info) Description 09/29/2022 Abstract [facility] ADULT DENTAL [address] [place] [address] Trenton Wilkerson DDS [address] [place] [address] Social History Tobacco Use Types Packs/Day Years [...] Description 02/07/2025 11:30 AM EST Office Visit [facility] MEDICINE [address] [place] [address] Lesia Tran MD [address] [place] [address] documented as of this encounter Visit Diagnoses Not on filedocumented in this encounter Care Teams Animal Cruelty Investigator Relationship Specialty Start Date End Date Neetu Bah AGNP [address] [place] [phone] PCP - General Family Medicine 11/28/20 01/13/23 Roma Bender FNP [address] [place] [address] PCP - General Family Medicine 01/14/23 12/06/23 Lesia Tran MD [address] [place] [address] PCP - General Internal Medicine 12/07/23 Neetu Bah AGNP [address] [place] [phone] Family Medicine 01/14/23 09/02/23 Carlos Muñiz, RN [address] [place] [address] Registered Nurse Family Medicine 09/05/24 09/05/24 Carlos Muñiz, RN [address] [place] [address] Registered Nurse Family Medicine 09/06/24 Jennifer Burgess 09/07/24 documented as of this encounter
--- OUTSIDE RECORDS SUMMARY | 2025-01-18 21:24 | XMS_ITS ---
Author Organization [employer] Address [address] [place] [address] 7t [place] [address] Care Team Providers Care Division Engineer Name Role Phone Lesia Tran MD Primary Care Provider + Carlso Muñiz RN Unavailable [phone] Jennifer Burgess Unavailable CHW Complex Status:Enrolled (Active) Start date:09/07/2024 Enrollment date:09/12/2024 Overview Community Referral- Contacted by [facility] contact for patient with inpatient admission attributed to HHCthat requires assistance from CM program. Please see forwarded email for information and coordination of care with inpatient SW, Karen Burt at [facility]. He has recently been put on continuous O2 2L, hehas trouble ambulating and could also use nutrition education as well, Case Team Name Relationship Phone Jennifer Burgess(Responsible Staff) [phone] Continued Care and Services Coordination
--- OUTSIDE RECORDS SUMMARY | 2025-01-18 21:24 | XMS_ITS | Encounter Summary ---
Author Organization [email or web address] Address [address] [facility] 7t [place] [address] Care Team Providers Care Case Management Director Name Role Phone Lesia Tran MD Primary Care Provider + Carlos Muñiz RN Unavailable [phone] Jennifer Burgess Unavailable Encounter Details Date Type Department Care Team (Late st Contact Info) Description 01/10/2025 Results Follow-Up [facility] [address] [place] [address] Lesia Tran MD [address] [place] [address] [place] BARIUM SWALLOW MODIFIED Social History Tobacco Use Types Packs/Day Years [...] with others, in a hotel, in a alf, living outside on the street, on a [...] Description 02/07/2025 11:30 AM EST Office Visit [facility] [address] [place] [address] Lesia Tran MD [address] [place] [address] documented as of this encounter Visit Diagnoses Not on filedocumented in this encounter Additional Health Concerns Assessment Noted Time PHQ-9 Depression Total Score: 22 025 11:24 AM EDT documented as of this encounter Care Teams Case Management Director Relationship Specialty Start Date End Date Lesia Tran MD [address] [facility] [place] [address] PCP - General Internal Medicine 12/07/23 Carlos Muñiz, ROXANN [address] [place] [address] Registered Nurse Family Medicine 09/06/24 Jennifer Burgess 09/07/24 documented as of this encounter
--- OUTSIDE RECORDS SUMMARY | 2025-01-18 21:24 | XMS_ITS ---
Author Organization [employer] Address [address] [place] [address] 7t [place] [address] Care Team Providers Care Head Of Drama Name Role Phone Lesia Tran MD Primary Care Provider + Carlos Muñiz RN Unavailable [phone] Jennifer Burgess Unavailable CM Complex Status:Enrolled (Active) Start date:09/06/2024 Enrollment date:09/07/2024 Enrollment reason:Other Overview Community Referral- Contacted by [facility] contact for patient with inpatient admission attributed to [facility] from CM program. Please see forwarded email for information and coordination of care with inpatient SW, Karen Burt at [facility]. He has recently been put on continuous O2 2L, hehas trouble ambulating and could also use nutrition education as well, Case Team Name Relationship Phone Carlos Muñiz RN(Responsible Staff) Registered Manny tanner [phone] Continued Care and Services Coordination
--- OUTSIDE RECORDS SUMMARY | 2025-01-18 21:24 | XMS_ITS | Encounter Summary ---
Author Organization [employer] Address [address] [place] [address] 7t [place] [address] Care Team Providers Care Machine Clerical Verifier Name Role Phone Lesia Tran MD Primary Care Provider + Carlos Muñiz RN Unavailable [phone] Carlos Muñiz RN Unavailable [phone] Jennifer Burgess Unavailable Reason for Visit * Reason Onset Date Comments medication 02/02/2024 Encounter Details Date Type Department Care Team (Late st Contact Info) Description 02/02/2024 Telephone [facility] [address] [place] [address] Trenton Wilkerson DDS [address] [place] [address] medication Social History Tobacco Use Types Packs/Day [...] 11:30 AM EST Office Visit [facility] [address] [place] [address] Lesia Tran MD [address] [place] [address] documented as of this encounter Visit Diagnoses Not on filedocumented in this encounter Additional Health Concerns Assessment Noted Time PHQ-9 Depression Total Score: 21 06/09/2 024 2:23 PM EST documented as of this encounter Care Teams Machine Clerical Verifier Relationship Specialty Start Date End Date Lesia Tran MD [address] [place] [address] PCP - General Internal Medicine 12/07/23 Carlos Muñiz, ROXANN [address] [place] [address] Registered Nurse Family Medicine 09/05/24 09/05/24 Carlos Muñiz, ROXANN [address] [place] [address] Registered Nurse Family Medicine 09/06/24 Jennifer Burgess 09/07/24 documented as of this encounter
--- OUTSIDE RECORDS SUMMARY | 2025-01-18 21:24 | XMS_ITS | Clinical Summary ---
Author Organization [facility] Address [address] [place] [address] Phone Care Team Providers Care Greige Goods Examiner Name Role Phone Az Terrell Primary Care Provider [phone] Immunizations Immunization Administration Dates Next Due DTP [...] age to complete this topic Care Teams Greige Goods Examiner Relationship Specialty Start Date End Date Az Terrell [address] [place] [address] PCP - General 11/13/16
--- OUTSIDE RECORDS SUMMARY | 2025-01-18 21:24 | XMS_ITS | Encounter Summary ---
Author Organization [employer] Address [address] [place] [address] 7t [place] [address] Care Team Providers Care Bath Mixer Name Role Phone Neetu Bah Primary Care Provider Roma BenderP Primary Care Provider [phone] Neetu Bah Unavailable [phone] Lesia Tran MD Primary Care Provider + Carlos Muñiz RN Unavailable [phone] Carlos Muñiz RN Unavailable [phone] Jennifer Burgess Unavailable Encounter Details Date Type Department Care Team (Late st Contact Info) Description 09/28/2022 Abstract [facility] [address] [place] [address] Trenton Wilkerson DDS [address] [place] [address] Social History Tobacco Use Types Packs/Day Years [...] Description 02/07/2025 11:30 AM EST Office Visit [facility] [address] [place] [address] Lesia Tran MD [address] [place] [address] documented as of this encounter Visit Diagnoses Not on filedocumented in this encounter Care Teams Bath Mixer Relationship Specialty Start Date End Date Neetu Bah AGNP [address] [place] [phone] PCP - General Family Medicine 11/28/20 01/13/23 Roma Bender FNP [address] [place] [address] PCP - General Family Medicine 01/14/23 12/06/23 Lesia Tran MD [address] [place] [address] PCP - General Internal Medicine 12/07/23 Neetu Bah AGNP [address] [place] [phone] Family Medicine 01/14/23 09/02/23 Carlos Muñiz, RN [address] [place] [address] Registered Nurse Family Medicine 09/05/24 09/05/24 Carlos Muñiz, RN [address] [place] [address] Registered Nurse Family Medicine 09/06/24 Jennifer Burgess 09/07/24 documented as of this encounter
--- OUTSIDE RECORDS SUMMARY | 2025-01-18 21:24 | XMS_ITS | Encounter Summary ---
Author Organization [employer] Address [address] [place] [address] 7t [place] [address] Care Team Providers Care Application Architect Manager Name Role Phone Roma Bender Primary Care Provider [phone] Neetu Bah Unavailable [phone] Lesia Tran MD Primary Care Provider + Carlos Muñiz RN Unavailable [phone] Carlos Muñiz RN Unavailable [phone] Jennifer Burgess Unavailable Reason for Visit * Reason Onset Date Comments Medication Question 05/04/2023 Encounter Details Date Type Department Care Team (Late st Contact Info) Description 05/04/[address] [facility] [address] [place] [address] Roma Bender FNP [address] [place] [address] Medication Question Social History Tobacco Use Types [...] 50 MG tablet prescribed by pcp at [facility] today 05/04/23, was prescribed for 1 time daily but it was supposed to be 2 times daily. Any questions please contact [phone]. documented in this encounter Plan of Treatment Upcoming Encounters Date Type Department Care Team (Late st Contact Info) Description 02/07/2025 11:30 AM EST Office Visit [facility] [address] [place], [place] [phone] Lesia Tran MD [address] [place] [address] documented as of this encounter Visit Diagnoses Not on filedocumented in this encounter Additional Health Concerns Assessment Noted Time PHQ-9 Depression Total Score: 11 023 3:14 PM EDT documented as of this encounter Care Teams Application Architect Manager Relationship Specialty Start Date End Date Roma Bender FNP [address] [place] [address] PCP - General Family Medicine 01/14/23 12/06/23 Lesia Tran MD [address] [place] [address] PCP - General Internal Medicine 12/07/23 Neetu Bah AGNP [address] [place] [phone] Family Medicine 01/14/23 09/02/23 Carlos Muñiz, ROXANN [address] [place] [address] Registered Nurse Family Medicine 09/05/24 09/05/24 Carlos Muñiz, ROXANN [address] [place] [address] Registered Nurse Family Medicine 09/06/24 Jennifer Burgess 09/07/24 documented as of this encounter
--- OUTSIDE RECORDS SUMMARY | 2025-01-18 21:24 | XMS_ITS | Encounter Summary ---
Author Organization [employer] Address [address] [facility] 7t [place] [address] Care Team Providers Care Passport Application Examiner Name Role Phone Roma Bender Primary Care Provider [phone] Neetu Bah Unavailable Lesia Tran MD Primary Care Provider + Carlos Muñiz RN Unavailable [phone] Carlos Muñiz RN Unavailable [phone] Jennifer Burgess Unavailable Encounter Details Date Type Department Care Team (Late st Contact Info) Description 02/19/2023 Orders Only [facility] [address] [place] [address] Roma Bender FNP [address] [place] [address] Other acute gastritis, presence of bleeding unspecified [...] AM EST Office Visit [facility] [address] [place] [address] Lesia Tran MD [address] [place] [address] documented as of this encounter Visit Diagnoses Diagnosis Other acute gastritis, presence of bleeding unspecified- Primary documented in this encounter Additional Health Concerns Assessment Noted Time PHQ-9 Depression Total Score: 11 023 3:14 PM EDT documented as of this encounter Care Teams Passport Application Examiner Relationship Specialty Start Date End Date Roma Bender FNP [address] [place] [address] PCP - General Family Medicine 01/14/23 12/06/23 Lesia Tran MD [address] [place] [id number] PCP - General Internal Medicine 12/07/23 Neetu Bah AGNP [address] [place] [phone] Family Medicine 01/14/23 09/02/23 Carlos Muñiz, RN [address] [place] [address] Registered Nurse Family Medicine 09/05/24 09/05/24 Carlos Muñiz, ROXANN [address] [place] [address] Registered Nurse Family Medicine 09/06/24 Jennifer Burgess 09/07/24 documented as of this encounter
--- OUTSIDE RECORDS SUMMARY | 2025-01-18 21:24 | XMS_ITS | Encounter Summary ---
Author Organization [employer] Address [address] [place] [address] 7 [place] [address] Care Team Providers Care Human Resources Representative Name Role Phone Neetu Bah Primary Care Provider Roma BenderP Primary Care Provider [phone] Neetu Bah Unavailable [phone] Lesia Tran MD Primary Care Provider + Carlos Muñiz RN Unavailable [phone] Carlos Muñiz RN Unavailable [phone] Jennifer Burgess Unavailable Reason for Visit * Reason Onset Date Comments New Patient 11/18/2022 Encounter Details Date Type Department Care Team (Late st Contact Info) Description 11/18/2022 Telephone [facility] [address] [place], [place] [phone] Koby Holland MD [address] [place], [place] [phone] New Patient Social History Tobacco Use Types [...] 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 EFFECTIVE SINCE 11/24/2022 * Telephone Encounter - Lisa Lopes - 11/18/2022 10:33 AM EDT Tc to Pt , informed that we do take insurance, but must call [employer] to change location. Once done, to please call back to facility at [phone] documented in this encounter Plan of Treatment Upcoming Encounters Date Type Department Care Team (Late st Contact Info) Description 02/07/2025 11:30 AM EST Office Visit [facility] [address] [place] [address] Lesia Tran MD [address] [place] [address] documented as of this encounter Visit Diagnoses Not on filedocumented in this encounter Care Teams Human Resources Representative Relationship Specialty Start Date End Date Neetu Bah AGNP [address] [place] [phone] PCP - General Family Medicine 11/28/20 01/13/23 Roma Bender FNP [address] [place] [address] PCP - General Family Medicine 01/14/23 12/06/23 Lesia Tran MD [address] [place] [address] PCP - General Internal Medicine 12/07/23 Neetu Bah AGNP [address] [place] [phone] Family Medicine 01/14/23 09/02/23 Carlos Muñiz, RN [address] [place] [address] Registered Nurse Family Medicine 09/05/24 09/05/24 Carlos Muñiz RN [address] [place] [address] Registered Nurse Family Medicine 09/06/24 Jennifer Burgess 09/07/24 documented as of this encounter
--- OUTSIDE RECORDS SUMMARY | 2025-01-18 21:24 | XMS_ITS | Encounter Summary ---
Author Organization [employer] Address [address] [place] [address] 7t [place] [address] Care Team Providers Care Press Catcher Name Role Phone Neetu Bah Primary Care Provider Roma BenderP Primary Care Provider [phone] Neetu Bah Unavailable [phone] Lesia Tran MD Primary Care Provider + Carlos Muñiz RN Unavailable [phone] Carlos Muñiz RN Unavailable [phone] Jennifer Burgess Unavailable Encounter Details Date Type Department Care Team (Late st Contact Info) Description 09/29/2022 Abstract [facility] [address] [place] [address] Trenton Wilkerson DDS [address] [place] [address] Social History Tobacco Use Types Packs/Day Years [...] Office Visit [facility] [address] [place] [address] Lesia Tran MD [address] [place] [address] documented as of this encounter Visit Diagnoses Not on filedocumented in this encounter Care Teams Press Catcher Relationship Specialty Start Date End Date Neetu Bah AGNP [address] [place] [phone] PCP - General Family Medicine 11/28/20 01/13/23 Roma Bender FNP [address] [place] [address] PCP - General Family Medicine 01/14/23 12/06/23 Lesia Tran MD [address] [place] [address] PCP - General Internal Medicine 12/07/23 Neetu Bah AGNP [address] [place] [phone] Family Medicine 01/14/23 09/02/23 Carlos Muñiz, RN [address] [place] [address] Registered Nurse Family Medicine 09/05/24 09/05/24 Carlos Muñiz, RN [address] [place] [address] Registered Nurse Family Medicine 09/06/24 Jennifer Burgess 09/07/24 documented as of this encounter
--- OUTSIDE RECORDS SUMMARY | 2025-01-18 21:24 | XMS_ITS | Clinical Summary ---
Author Organization [employer] Address [address] [place] [address] Care Team Providers Care Miscellaneous Machine Operator Name Role Phone Andrea Amor MD Primary Care Provider + Carlos Muñiz RN Unavailable [phone] Jennifer Burgess Unavailable Allergies Active Allergy Reactions [...] and at bedtime for anxiety. Active pancrelipase, Bos-Weae-Oafs, (Creon) 99567-57553 units capsule Take 2 capsules by mouth [...] apnea) 02/11/2024 Overview (02/11/2024): Sleep study at [facility]: moderate TYSON with nocturnal hypoxemia, <88% 24.1 minutes, lowest 77%. Assessment & Plan (06/20/2024 1:12 PM EDT): Pt has not been able to use CPAP, will call sleep specialist to check next appointment. Advised regarding weight reduction, consider Zepbound. Consider Hypoglossal nerve stimulator implant. Fu with sleep specialist. Assessment & Plan (02/11/2024 3:58 PM EST): Obtain results form Cardiology office ([facility]) Mild persistent asthma 02/11/2024 Assessment & Plan (02/11/2024 4:00 PM EST): Doing well on Breo, fu by [facility] pulmonary Advised re weight reduction. Declined Influenza [...] Plan (02/11/2024 4:01 PM EST): FU by [facility] GI, on Protonix, senna prn constipation Advised [...] moderate intensity exercise. Will hold referral to dance teacher until next appointment once anxiety is better [...] ID: Yaniv is a 37 y.o. White [place] choose not to disclose-identified cis- male [...] for 2.5 years, currently on methadone at [facility], 128mg with a plan on [...] intervention , Patient to [facility] out to [facility] team as needed, and Patient to reach [...] he will follow-up with the state and [facility]. His [facility]NA assist with methadone administration, pharmaco [...] vaping cannabis Advised to reach out to employment coach at the methadone program, avoid using any other recreational substance or alcohol Assessment & Plan (07/27/2024 2:58 PM EDT): >>ASSESSMENT AND PLAN FOR ANXIETY WRITTEN ON 02/11/2024 4:04 PM BY ANDREA AMOR MD Seen by MH provider at [facility], will bring meds at next appt. He feels safe at home and is able to reach out for safety. Assessment & Plan (06/20/2024 1:14 PM EDT): Recently started seeing psychiatry and medications, advised to fu closely with them next week. Advised to cut down on vaping cannabis. Pt feels safe at home, advised to reach out to therapist or employment coach (he will request one at methadone [...] to dental clinic -sending relevant labs to [facility] for commodities and pt will f [...] PM EST): Doing well on Methadone at [facility], has take home bottles Advised to decrease use of THC Encounters Date Type Department Care Team Description 01/10/2025 Results Follow-Up [facility] [address] [place] [address] Andrea Amor MD FL BARIUM SWALLOW MODIFIED 01/08/[address] [facility] [address] [place] [address] Andrea Amor MD Care Coordination ([facility]3 -[facility] Jennifer Burgess telephone call outreach) 01/08/[address] [address] Andrea Amor MD Medication Question 12/25/2024 Patient Outreach [address] [address] Andrea Amor MD Care Coordination ([facility] -[facility] Jennifer Burgess telephone call outreach ) 12/20/[address] [address] Andrea Amor MD Letter Request 12/19/2024 Patient Outreach [address] [address] Andrea Amor MD Care Management ([facility]- F/U call # 4) 12/15/2024 Orders Only [facility] External Provider, [facility] 12/07/2024 Patient Outreach [address] [address] Andrea Amor MD 12/05/2024 12:00 PM EDT Office Visit [address] [address] Andrea Amor MD Generalized anxiety disorder with panic attacks (Primary Dx); Stress incontinence of urine; Morbid obesity (CMS/HCC) 12/05/2024 Travel 12/04/2024 Travel 11/29/[address] [facility] [address] [place] [address] Andrea Amor MD Chart Prep 11/24/2024 Patient Outreach [address] [address] Andrea Amor MD 11/21/2024 Patient Outreach [address] [address] Andrea Amor MD 11/17/2024 Patient Outreach [address] [address] Andrea Amor MD Care Management ([facility]- Follow Up Call # 3) 11/15/[address] [address] Andrea Amor MD IZ 11/09/2024 9:00 AM EDT Office Visit [facility] [address] [place] [address] Ailyn Nj, OD Myopia, bilateral (Primary Dx) 11/02/[address] [facility] [address] [place] [address] Andrea Amor MD Care Coordination ([facility] Jennifer Burgess telephone call outreach) 10/31/[address] [facility] [address] [place] [address] Cheryl Watts, TRANSMITTER CHIEF Follow-up 10/31/[address] [facility] [address] [place] [address] Andrea Amor MD Care Management ([facility]- follow up call # 2) 10/24/2024 Orders Only GENERIC EXTERNAL DATA DEPARTMENT Provider, Generic External Data 10/23/2024 11:00 AM EDT Office Visit [facility] [address] [place] [address] Trenton Wilkerson DDS Mild persistent asthma, unspecified whether complicated 10/23/[address] [facility] [address] [place] [address] Andrea Amor MD 10/22/2024 Travel 10/20/2024 Telephone [facility] [address] [place] [address] Andrea Amor MD Durable Medical Equipment (DME RX Pullup, Bathroom Grab Bars, Shower Bench(L&C)) 10/18/2024 Orders Only GENERIC EXTERNAL DATA DEPARTMENT Provider, Generic External Data from Last 3 Months Immunizations Immunization Administration [...] the past 12 months, has t he [employer], gas, oil or water company threatened to [...] 02/07/2025 11:30 AM EST Office Visit [facility] [address] [place] [address] Andrea Amor MD [address] [place] [address] Health Maintenance Due Date Last Done Comments [...] AUTO DIFFERENTIAL Routine 10/18/2024 11:28 AM EDT LIPID PANEL WITH REFLEX TO [...] AM EDT Narrative 01/03/2025 10:59 AM EDT [address] [address] Fluoroscopy Report Signed Patient: Yaniv Gutierrez MR#: [id number] : 1985 Acct:[id number] Age/Sex: 39 / M ADM Date: 01/03/25 Loc: HO.XRAY Attending Dr: Samantha Davis NP Ordering Physician: Samantha Davis NP Date of Service: 01/03/25 Procedure(s): FL Modified Barium Swallow Accession Number(s): [id number] cc: Andrea Amor MD; Samantha Davis NP [...] by Compa Wilder MD in OV> 01/03/25 105 DD/ 40 TD/TT: 01/03/251044 Home Decorator: Procedure Note Donotuseinterpreter, Image - 01/03/2025 [place] [address] Fluoroscopy Report Signed Patient: Yaniv Gutierrez GMR#: [id number] : 1985Acct:[id number] Age/Sex: 39 / MADM Date: 01/03/25 Loc: ODILONGaboSHARMINMITCHELL Attending Dr: Samantha Davis NP Ordering Physician: Samantha Davis NP Date of Service: 01/03/25 Procedure(s): FL Modified Barium Swallow Accession Number(s): [id number] cc: Andrea Amor MD; Samantha Davis NP [...] by Compa Wilder MD in OV> 01/03/25 105 DD/ 40 TD/TT: 10/01/25 1045 Home Decorator: us [facility] External Provider IMG FLU OROSCOPY PROCEDURES Final Result * CT Chest w/o Contrast (12/16/2024 8:36 AM EDT) Anatomical Region Laterality Modality Body, Chest Computed Tomogra phy 12/16/2024 8:36 AM EDT Narrative 12/16/2024 8:38 AM EDT [address] [address] [address] Scan Report Signed Patient: Yaniv Gutierrez MR#: [id number] : 1985 Acct:[id number] Age/Sex: 39 / M ADM Date: 12/15/24 Loc: HO.CT Attending Dr: Samantha Davis NP Ordering Physician: Samantha Davis NP Date of Service: 12/15/24 Procedure(s): CT chest wo IV con Accession Number(s): [id number] cc: Andrea Amor MD; Samantha Davis NP Report Number: [id number]: Total DLP = 320.00 mGy-cm Reason for [...] in OV> 12/16/2437 DD/ 5 TD/TT: 12/16/24835 Home Decorator: Procedure Note Donotuseinterpreter, Image - 12/16/[address] [address] [address] Scan Report Signed Patient: Yaniv Gutierrez GMR#: [id number] : 1985Acct:[id number] Age/Sex: 39 / MADM Date: 12/15/24 Loc: HO.CT Attending Dr: Samantha Davis CONSTRUCTION ENGINEER Ordering Physician: Samantha Davis NP Date of Service: 12/15/24 Procedure(s): CT chest wo IV con Accession Number(s): [id number] cc: Andrea Amor MD; Samantha Davis NP Report Number: [id number]: Total DLP = 320.00 mGy-cm Reason for Exam: Z87. - Personal history of pneumonia (recurrent) CLINICAL HISTORY: Z87. - Personal history of pneumonia (recurrent) CT [...] in OV> 12/16/2437 DD/ 5 TD/TT: 12/16/24835 Home Decorator: [facility] External Provider IMG CT PROCEDURES Final Result * (ABNORMAL) Hepatic Function Panel (10/24/2024 10:32 PM EDT) Bilirubin, Total 0.3 0.0 - 1.0 mg/dL [facility] Bilirubin, Direct 0.1 0.0 - 0.5 mg/dL [facility] Aspartate Amino Transferase 31 5 - 37 U/L [facility] Alanine Aminotransferase 29 0 - 40 U/L [facility] Total Protein 7.6 6.5 - 8.0 g/dL [facility] Albumin Level 3.7 3.5 - 5.0 g/dL [facility] Alkaline Phosphatase 121(H) 39 - 117 U/L [facility] 10/24/2024 10:3 2 PM EDT 10/24/2024 10:46 PM EDT us Generic External Data Provider LAB BLOOD ORDERAB LES Final Result [facility] [address] [place], [place] [phone] * (ABNORMAL) Basic Metabolic Panel (10/24/2024 10:32 PM EDT) Sodium 139 135 - 145 mmol/L [facility] Potassium 4.5 3.3 - 5.1 mmol/L [facility] Chloride 100 96 - 108 mmol/L [facility] Carbon Dioxide 31(H) 22 - 29 mmol/L [facility] Anion Gap 13 12 - 20 [facility] Urea Nitrogen (BUN) 10 9 - 16 mg/dL [facility] Creatinine, Serum 0.82 0.5 - 1.4 mg/dL [facility] Creatinine Clr Calc Pharmacy 167.8 [facility] Comment:eGFR (calculated fro m the MDRD study equation) and eCrCl(calculated from the Cockcroft-Gault equation) are based ondifferent parameters and may not yield comparable results.If eCrCl result is absurd, please check patient'sheight/weight. Estimated Glomerular Filt Rate >60 [facility] Comment:Chronic Kidney Disea se: Estimated GFR < 60 mL/min/[id number] Kidney Disease: Estimated GFR < 15 mL/min/1.73m2 Glucose 107 60 - 115 mg/dL [facility] Calcium 8.7 8.4 - 10.2 mg/dL [facility] 10/24/2024 10:3 2 PM EDT 10/24/2024 10:46 PM EDT us Generic External Data Provider LAB BLOOD ORDERAB LES Final Result [facility] [address] [place] [address] [phone] * (ABNORMAL) CBC auto differential (10/24/2024 9:41 PM EDT) Only the most recent of2 resultswithin the time period is included. White Blood Count 14.9(H) 4.8 - 10.8 X10*3/uL [facility] Red Blood Count 4.57(L) 4.60 - 5.80 X10*6/uL [facility] Hemoglobin 12.1(L) 14.0 - 18.0 g/dl [facility] Hematocrit 38.2(L) 42.0 - 52.0 % [facility] Mean Corpuscular Volume 83.6 80.0 - 98.0 fL [facility] Mean Corpuscular Hemoglobin 26.5(L) 27.0 - 33.0 pg [facility] Mean Corpuscular HGB Conc 31.7 31.0 - 36.0 g/dl [facility] Red Cell Distribution Width 16.0 11.0 - 16.0 % [facility] Platelet Count 286 160 - 400 X10*3/uL [facility] Mean Platelet Volume 8.4(L) 9.4 - 12.4 fL [facility] Neutrophils Percent Auto 78.1(H) 45 - 73 % [facility] Imm Gran Pct Auto 0.8(H) 0.0 - 0.4 % [facility] Lymphocytes Percent Auto 9.1(L) 20 - 40 % [facility] Monocytes Percent Auto 8.2 2 - 11 % [facility] Eosinophils Percent Auto 3.5 0 - 4 % [facility] Basophils Percent Auto 0.3 0 - 2 % [facility] NRBC Pct Auto 0.0 0.0 - 0.2 /100WBC [facility] Neutrophils Absolute Auto 11.6(H) 2.0 - 8.3 x10*3/uL [facility] Imm Gran Abs Auto 0.12(H) 0.00 - 0.03 X10*3/uL [facility] Lymphocytes Absolute Auto 1.4 1.2 - 4.9 X10*3/uL [facility] Monocytes Absolute Auto 1.2 0.1 - 1.2 X10*3/uL [facility] Eosinophils Absolute Auto 0.5(H) 0.0 - 0.4 X10*3/uL [facility] Basophils Absolute Auto 0.1 0.0 - 0.2 X10*3/uL [facility] NRBC Abs Auto 0.000 0.0 - 0.012 X10*3/uL [facility] 10/24/2024 9:41 PM EDT 10/24/2024 9:48 PM EDT Generic External Data Provider LAB BLOOD ORDERAB LES Final Result Performing Organization Address [facility] Co de Phone Number [facility] [address] [place] [phone] * Ethanol (10/18/2024 11:28 AM EDT) ETHANOL (MG/DL) IN SER/PLAS <10 mg/dL [facility] Comment:Serum/plasma ethanol results are to be used formedical/treatment purposes only. 10/18/2024 11:2 8 AM EDT 10/18/2024 11:35 AM EDT Generic External Data Provider LAB BLOOD ORDERAB LES Final Result Performing Organization Address [facility] Co de Phone Number [facility] [address] [place] [phone] * Magnesium (10/18/2024 11:28 AM EDT) Magnesium 2.0 1.6 - 2.6 mg/dL [facility] 10/18/2024 11:2 8 AM EDT 10/18/2024 11:35 AM EDT us Generic External Data Provider LAB BLOOD ORDERAB LES Final Result Performing Organization Address City/[facility]/ZIP Co de Phone Number [facility] [address] [place] [address] [phone] * Lipase (10/18/2024 11:28 AM EDT) Lipase 14 8 - 78 U/L [facility] 10/18/2024 11:2 8 AM EDT 10/18/2024 11:35 AM EDT us Generic External Data Provider LAB BLOOD ORDERAB LES Final Result Performing Organization Address [facility]/ZIP Co de Phone Number [facility] [address] [place] [address] [phone] * (ABNORMAL) Comprehensive Metabolic Panel (10/18/2024 11:28 AM EDT) Sodium 135 135 - 145 mmol/L [facility] Potassium 4.5 3.3 - 5.1 mmol/L [facility] Chloride 99 96 - 108 mmol/L [facility] Carbon Dioxide 28 22 - 29 mmol/L [facility] Anion Gap 13 12 - 20 [facility] Urea Nitrogen (BUN) 15 9 - 16 mg/dL [facility] Creatinine, Serum 0.89 0.5 - 1.4 mg/dL [facility] Creatinine Clr Calc Pharmacy 139.9 [facility] Comment:eGFR (calculated fro m the MDRD study equation) and eCrCl(calculated from the Cockcroft-Gault equation) are based ondifferent parameters and may not yield comparable results.If eCrCl result is absurd, please check patient'sheight/weight. Estimated Glomerular Filt Rate >60 [facility] Comment:Chronic Kidney Disea se: Estimated GFR < 60 mL/min/1.39d0Pzpjeq Kidney Disease: Estimated GFR < 15 mL/min/1.73m2 Glucose 107 60 - 115 mg/dL [facility] Calcium 8.8 8.4 - 10.2 mg/dL [facility] Bilirubin, Total 0.5 0.0 - 1.0 mg/dL [facility] Aspartate Amino Transferase 33 5 - 37 U/L [facility] Alanine Aminotransferase 38 0 - 40 U/L [facility] Total Protein 8.2(H) 6.5 - 8.0 g/dL [facility] Albumin Level 4.1 3.5 - 5.0 g/dL [facility] Alkaline Phosphatase 143(H) 39 - 117 U/L [facility] 10/18/2024 11:2 8 AM EDT 10/18/2024 11:35 AM EDT us Generic External Data Provider LAB BLOOD ORDERAB LES Final Result [facility] [address] [place] [phone] [phone] * (ABNORMAL) Lipid Panel with Reflex to Direct LDL (09/19/2024 3:15 PM EDT) Triglycerides 304(H) <150 mg/dL [facility] Comment:Desirable Triglyceri de: less than 150 mg/dLBorderline High Triglyceride 150-199 mg/dLHigh Triglyceride: 200-499 mg/dLVery High Triglyceride: greater than or equal to 5OO mg/dL Cholesterol 184 <200 mg/dL [facility] Comment:Desirable Cholestero l: less than 200 mg/dLBorderline High Cholesterol: 200-239 mg/dLHigh Cholesterol: greater than 239 mg/dL LDL Cholesterol Calculated 81 <100 mg/dL [facility] Comment:Desirable LDL: less than 100 mg/dLNear Optimal/Above Optimal LDL: 110- 129 mg/dLBorderline High LDL: 130-159 mg/dLHigh LDL: 160-189 mg/dLVery High LDL: greater than or equal to 190 mg/dL HDL Cholesterol 43 >40 mg/dL [facility] Comment:Desirable HDL: great er than 40 mg/dL Note: This HDL assay may give artificially low results in patients with liver disease. Blood 09/19/2024 3:15 PM EDT 09/19/2024 4:08 PM EDT Andrea Amor MD LAB BLOOD ORDERABLES Fin al Result [facility] [address] [place] [address] [phone] * POCT HGB A1C (06/20/2024 12:05 PM EDT) Hemoglobin A1C 6.0 4.0 - 6.0 % QC Media Lot # [id number] Lot# Expiration Date Blood 06/20/2024 12:0 5 PM EDT Andrea Amor MD POINT OF CARE TEST ENTER /EDIT ORDERABLES Final Result from Last 3 Months or Most Recently Relevant to Health Maintenance Insurance [facility] AD[facility] Care Teams Miscellaneous Machine Operator Relationship Specialty Start Date End Date Andrea Amor MD [address] [place] [phone] PCP - General Internal Medicine 12/07/23 Carlos Muñiz, RN [address] [place] [phone] Registered Nurse Family Medicine 09/06/24 Jennifer Burgess 09/07/24
--- OUTSIDE RECORDS SUMMARY | 2025-01-18 21:24 | XMS_ITS | Encounter Summary ---
Author Organization [employer] Address [address] [place] [address] [address] [place] [address] Care Team Providers Care Acquisitions Editor Name Role Phone Lesia Tran MD Primary Care Provider + Carlos Muñiz RN Unavailable [phone] Carlos Muñiz RN Unavailable [phone] Jennifer Burgess Unavailable Reason for Visit * Reason Onset Date Comments rs appt/disconnected call 06/29/2024 Encounter Details Date Type Department Care Team (Late st Contact Info) Description 06/29/2024 Telephone [facility] [address] [place] [address] Trenton Wilkerson DDS [address] [place] [address] rs appt/disconnected call Social History Tobacco Use [...] I was on the line with desktop publishing associate [facility] the patient disconnected the call.. The appt [...] 11:30 AM EST Office Visit [facility] [address] [place] [phone] Lesia Tran MD [address] [place] [address] documented as of this encounter Visit Diagnoses Not on filedocumented in this encounter Additional Health Concerns Assessment Noted Time PHQ-9 Depression Total Score: 21 06/09/ 024 2:23 PM EST documented as of this encounter Care Teams Acquisitions Editor Relationship Specialty Start Date End Date Lesia Tran MD [address] [place] [address] PCP - General Internal Medicine 12/07/23 Carlos Muñiz, RN [address] [place] [address] Registered Nurse Family Medicine 09/05/24 09/05/24 Carlos Muñiz, RN [address] [place] [address] Registered Nurse Family Medicine 09/06/24 Jennifer Burgess 09/07/24 documented as of this encounter
--- OUTSIDE RECORDS SUMMARY | 2025-01-18 21:24 | XMS_ITS | Data Portability ---
Author Organization [place] - [facility], Allergy Address [address] [address] Care Team Providers Care Tar Pot Worker Name Role Phone ZULEYMALESIA MACK Primary Care Provider Assessment Encounter Date Assessment [...] By Organization Details Last Modified Time 09/29/2024 [id number] Please note: Parts of this encounter note [...] Details Recorded Time Perforation of nasal septum 58206880 Active 2023 MARTA MILLER MD [address] [facility], [place], [address], [facility] - [facility] 11:28:15 Chronic rhinitis 18414434 Active 2024 MARTA MILLER MD 100 [facility],[address], [place], [address], [facility] 11:27:47 Obstructive sleep apnea syndrome 60194099 Active 2024 MARTA MILLER MD 100 [facility],[address] [facility], [facility], [address], [facility] 11:27:51 Oropharyngeal dysphagia 45136564 Active 2024 MARTA MILLER MD 100 [facility],[address], [place], [address], [facility] 11:28:01 Morbid obesity 899242681 Active 2024 MARTA MILLER MD 100 [facility],[address], [place], [address], [facility] 11:28:39 Problem Notes None recorded. Procedures Surgical History Date Name Laterality Status Provider Name and Address Organization Details Recorded Time 09/30/19 25 Fiberoptic Laryngoscopy (Comprehensive) completed MARTA ALAMO MD 100 [facility], [address], [facility] 09/29/2024 11:32:45 Imaging Results None recorded. Procedure Notes None recorded. Medical Equipment None Reported. Allergies Allergen ID Allergen Name Allergen Category Reaction Reaction Severity Criticality Documentation Date Start Date Code Code System Note Provider Name and Address Organization Details Recorded Time 181846 Product containin g penicilli n (product) medicatio n Not available Not available Not available 09/29/2024 77359 8001 SNOMED Lesia joe [place] - [facility] 5 10:59:57 Medications Name Sig Start Date [...] Updated DateTime 09/29/2024 170.18 cm 47 kg/m2 547883.71 g MARTA ALAMO MD [address] [place] [address], [phone] 09/29/2024 11:28:59 Social History Question Answer Notes LastModified by Organizat ion Details LastModified Time Tobacco Smoking Status Former Smoker MARTA ALAMO MD [address] [place] [address], [phone], [facility] 09/28/2024 11:16:55 Which Illicit Or Recreational Drugs [...] Diagnosis SNOMED-CT Code Diagnosis ICD10 Code Diagnosis IMO Codes Diagnosis Note [id number] MARTA MORGAN MD [facility] [address] [address] 09/29/2024 10:27:25 09/29/2024 11:31:21 Chronic rhinitis 64713303 J31.0 2545 Obstructiv e sleep apnea syndrome 67157779 G47.33 908724 working with PCP on PSG Oropharyng eal dysphagia 38993535 R13.12 8208 Perforatio n of nasal septum 86787534 J34.89 672580 Morbid obesity 274499327 E66.01 082269 Health Concerns Section Related Observation LastModified by Organization Detai ls LastModified Time None Recorded Concern Status LastModified by Organization Details LastModified Time None Recorded Advance Directives Directive None Recorded Payers Insurance Date Sequence Insurance Name Policy Number Policy Lopez Covered Member ID Lopez Member ID Guarantor Name 10/13/2024 1 [place] [facility] Yaniv Gutierrez [id number] Yaniv Gutierrez Notes Date Note Type Note [...] study suggesting aspiration risks. MARTA ALAMO MD [address] [place] [address], [phone], [facility] - [facility] 09/29/2024 11:33:12
== END ==
LOC: HO.SL 20:30
PROVIDERS: PCP Internal Medicine; Visit Provider Nurse Practitioner Family
DX: G47.34 Idiopathic sleep related nonobstructive alveolar hypoventilation (principal); G47.33 Obstructive sleep apnea (adult) (pediatric); G47.31 Primary central sleep apnea; R40.0 Somnolence
CPT/HCPCS: 95811

== ENCOUNTER → 2025-01-18 21:24 | Outpatient (BNV) | payer MEDICAID, SELFPAY | PROVIDERS: PCP Internal Medicine; Visit Provider Internal Medicine | DX: G47.33 Obstructive sleep apnea (adult) (pediatric) (principal); G47.31 Primary central sleep apnea; R06.83 Snoring | CPT/HCPCS: 95811 ==

== ENCOUNTER 2025-02-19 14:37 | Outpatient (AMB) | payer MEDICAID, SELFPAY ==
[2025-02-19 14:43] VITALS: BP 130/78; PULSE 94; O2SAT 95; BMI 51.6
--- NOTE | 2025-02-19 14:43 | MHC.OFFVIS ---
Vital Signs 02/19/25 14:43 Height 5 ft 7 in Weight 329 lb 9.457 oz BMI 51.6 BP 130/78 Blood Pressure Location Lt radial Position Sitting Pulse 94 Pulse Source Pulse Oximeter Pulse Oximetry (%) 95 Oxygen Delivery Method Nasal Cannula Intake Visit Reasons: Pneumonia Allergies Penicillins (PENICILLINS) Allergy (Unknown, Verified 02/19/25 14:46) RASH HPI HPI Pneumonia: Details: Yaniv is a pleasant 39 year old male, former 20 pack year smoker, quit 2 years ago, currently smoking marijuana/vaping with underlying asthma, TYSON unable to tolerate CPAP, nocturnal hypoxemia, bipolar disorder, h/o polysubstance abuse maintained on methadone and GERD. In August 2024 patient with PNA + MRSA swab, discharged with Bactrim which he completed 09/10 after a two week course. He was evaluated by Dr. Evans in patient who reviewed chest CT and suspected a degree of micro aspirations contributing to findings. He was then evaluated inpatient by Dr. Nichols 2 weeks later who reviewed imaging with suspicions of pulmonary edema, and patient was started on Lasix 40 mg daily. He has a current prescription for lasix however does not take daily due to inconveniences, continues with BLE edema. He is following with Dr. Oscar Cheung however consider switching to [facility] cardiology due to location. He previously reported swallowing difficulties, recent MBSS unremarkable. He continues to use Trelegy with good control of respiratory symptoms, no longer with cough or wheezing and rarely using Albuterol MDI. He continues to report dyspnea on exertion using supplemental oxygen 3L pulsed dosing and 2L NOC with good effect. DME is [employer]. He denies any visits to urgent care or hospitalizations related to respiratory distress since the last visit. Today he presents to review split night study. [facility] Medical History (Updated 02/19/25 @ 15:44 by Samantha Davis NP) GERD (gastroesophageal reflux disease) Pulmonary edema Opioid use disorder Acute exacerbation of moderate persistent extrinsic asthma Pneumonitis Opioid use disorder, severe, in early remission Suicidal ideation Exocrine pancreatic insufficiency Polysubstance abuse No known health problems Surgical History Hx of tonsillectomy Social History Household Members: Family Housing: House Do you presently have visiting nurse or other home services: No Alcohol intake: former Comment: sitter at bedside Patient Tobacco Use Status: Former Tobacco user Substance Use Type: Marijuana Advance Directives Date on File: 03/15/24 service: No Sexual orientation: Straight/Heterosexual Review of Systems Const Denies fever(s) and Denies headache(s) Eyes Denies dry eyes, Denies irritation and Denies itchy eyes ENT Reports Normal hearing present, Denies headache(s), Reports nasal congestion, Reports sinus pressure and Denies sore throat Card Denies chest pain, Denies chest pain at rest, Denies chest pain with activity, Denies claudication, Reports dyspnea on exertion, Denies orthopnea and Denies paroxysmal nocturnal dyspnea Resp Denies change in phlegm color, Denies chest congestion, Denies cough, Denies hemoptysis, Denies excessive phlegm production, Denies pain on inspiration, Denies pain with cough, Reports dyspnea on exertion, Denies stridor and Denies wheezing Musc Denies myalgias Neuro Reports Normal hearing present and Denies headache(s) Nnamdi/Lymph Denies lymphadenopathy Aller/Immun Denies itchy eyes, Denies seasonal rhinorrhea and Denies wheezing Physical Exam Const General: cooperative, no acute distress and alert Nutritional Appearance: obese Orientation/consciousness: patient oriented x3 Limitations: no limitations HEENT Head: Yes normal to inspection, Yes normocephalic and Yes atraumatic Ears: hearing grossly normal bilaterally and external ears normal Eyes General: appearance normal, both eyes and all related structures Eyelids: Yes eyelids normal Sclerae: sclerae normal EOM: EOMs intact bilaterally Neck Neck: Yes normal visual inspection and Yes no lymphadenopathy Lymphatic: no lymphadenopathy noted Chest Chest palpation & inspection: normal inspection of the chest Resp Effort & Inspection: normal respiratory effort, able to speak in complete sentences, no audible wheezes, no stridor, not tachypneic, no tripod positioning and no use of accessory muscles Auscultation: diminished lung sounds Cardio Jugular venous distension: no JVD Rate: regular rate Rhythm: regular rhythm Skin Other: warm, dry General skin exam: no rashes or lesions noted Neuro General: patient oriented x3 Cranial nerves: Yes Normal hearing present Cognition (Neuro): normal cognition Gait exam (Neuro): Normal gait present Extrem General: Yes normal to inspection, Yes capillary refill normal, Yes no clubbing, cyanosis or edema and Yes no pedal edema Psych Appearance: grossly normal and well kempt Mental Status: mental status grossly normal Speech and movement: Normal speech and movement present and Clear speech present Affect: Anxious affect present Attitude: cooperative Thought process: Normal thought process present Thought content: Normal thought content present Insight: Fair insight present (Psych) Judgement: Fair judgement present (Psych) Results Reviewed Results Reviewed: Assessment & Plan Assessment & Plan (1) Central sleep apnea: Code(s): G47.31 - Primary central sleep apnea Category: Medical (2) Asthma: Code(s): J45.909 - Unspecified asthma, uncomplicated Category: Medical (3) Nocturnal hypoxemia: Code(s): G47.34 - Idiopathic sleep related nonobstructive alveolar hypoventilation Category: Medical (4) Hypoventilation associated with obesity: Code(s): E66.2 - Morbid (severe) obesity with alveolar hypoventilation Category: Medical (5) Dyspnea on exertion: Code(s): R06.09 - Other forms of dyspnea Category: Medical (6) Pulmonary nodule: Code(s): R91.1 - Solitary pulmonary nodule Category: Medical Plan At this time Yaniv reports moderate control of respiratory symptoms on current regimen of Trelegy, Albuterol MDI PRN and 2-3L supplemental oxygen with exertion, advised to continue. Prior HST negative for TYSON however did reveal mild nocturnal hypoxemia, despite using 2L NOC. Reviewed sleep night PSG which revealed severe central sleep apnea with nocturnal hypoxemia with recommendations for BiPAP therapy with resolution of nocturnal hypoxemia although continued central events. Reviewed PSG with Dr. Nichols and recommended starting patient on BiPAP therapy with pressures 12/8cm with a back up rate of 14. Patient agreeable to trial and discussed importance of compliance. Once patient established on therapy he will call and order for overnight oximetry will be placed to ensure resolution of nocturnal hypoxemia. Will monitor for benefits as well as resolution of central events. Again discussed engagement with a still operator brandy is advised for differential evaluation of pulmonary-cardiac dynamics and continued need for lasix. Reviewed chest ct 12/2024 which demonstrates possible atelectasis vs scarring vs nodular density. Will repeat in 6 months to assess stability. All questions were answered and patient is in agreement of plan. Will follow-up in 8-10 weeks or sooner if needed. Orders: Orders CT chest wo IV con 4 Months R91.1 - Solitary pulmonary nodule Coding Level of Care Code Est Pt Level 4 (00115) Complex EM visit Add On G2211 Diagnoses Central sleep apnea G47.31 Asthma J45.909 Nocturnal hypoxemia G47.34 Hypoventilation associated with obesity E66.2 Dyspnea on exertion R06.09 Pulmonary nodule R91.1
== END 2025-02-19 15:16 | disposition home or self-care (01) ==
LOC: HO.HPS 14:37
PROVIDERS: PCP Internal Medicine; Visit Provider Nurse Practitioner Family
DX: G47.31 Primary central sleep apnea (principal); J45.909 Unspecified asthma, uncomplicated; G47.34 Idiopathic sleep related nonobstructive alveolar hypoventilation; E66.2 Morbid (severe) obesity with alveolar hypoventilation; R06.09 Other forms of dyspnea; R91.1 Solitary pulmonary nodule
CPT/HCPCS: 99214

== ENCOUNTER → 2025-02-19 14:37 | Outpatient (BNVA) | payer MEDICAID, SELFPAY | PROVIDERS: PCP Internal Medicine; Visit Provider Nurse Practitioner Family | DX: E66.2 Morbid (severe) obesity with alveolar hypoventilation (principal); J45.909 Unspecified asthma, uncomplicated; R06.09 Other forms of dyspnea; R91.1 Solitary pulmonary nodule | CPT/HCPCS: 99212 ==

== ENCOUNTER 2025-03-26 09:50 | Outpatient (AMB) | payer MEDICAID, SELFPAY ==
--- NOTE | 2025-03-26 09:53 | A.OFFVIS_ITS ---
Intake Visit Reasons: urinary incontinence/PVR/UA Intake Note: New Patient is present for Urinary Incontinence , Frequency , And hard to start Urinary stream Urology Rx:none PVR:0 mls Blood Thinners:Aspirin Imaging completed: None Abx Allergy : Penicillins Smoker : Yes Oncology Admin Required: No Accompanied by: Self / Same As Patient Allergies Penicillins (PENICILLINS) Allergy (Unknown, Verified 03/26/25 09:54) RASH HPI Comments Details: Yaniv is a very pleasant 39-year-old male patient of Dr. Tran. He has a past medical history of GERD, pulmonary edema, opioid use disorder, pneumonitis, suicidal ideation, polysubstance abuse. He presents to the office today as a new patient for urinary dribbling, feeling of incomplete bladder emp tying, and question of penile atrophy. In discussion with the patient today he discusses his longstanding history of opiate use disorder however has been in remission over the last 5 years. He reports since he has been sober he has been experiencing other issues like weight gain, anxiety, low libido, urinary dribbling as well as penile shrinkage. Assessment was offered however deferred. He reports previously he was in a 8 year relationship and had sexual intercourse almost daily however finds it difficult to do this now due to his breathing issues as well as weight gain. We did discuss penile shrinkage in relation to obesity. We also discussed potential causes of urinary dribbling. In office urinalysis results reviewed with the patient today. PVR 0 mL. We also discussed potential for hypogonadism as patient is currently on methadone. All questions were answered to the best of my ability. We discussed obtaining labs and imaging for further assessment evaluation. He denies hematuria, dysuria, foul smelling urine, flank pain, fever, and or chills. He otherwise offers no other issues or concerns at this time. [facility] Medical History GERD (gastroesophageal reflux disease) Pulmonary edema Opioid use disorder Acute exacerbation of moderate persistent extrinsic asthma Pneumonitis Opioid use disorder, severe, in early remission Suicidal ideation Exocrine pancreatic insufficiency Polysubstance abuse No known health problems Surgical History Hx of tonsillectomy Social History (Reviewed 02/19/25 @ 14:45 by JEREL Dockery Household Members: Family Housing: House Do you presently have visiting nurse or other home services: No Alcohol intake: former Comment: sitter at bedside Patient Tobacco Use Status: Former Tobacco user Substance Use Type: Marijuana Advance Directives Date on File: 03/15/24 service: No Sexual orientation: Straight/Heterosexual Review of Systems Const All systems reviewed & are unremarkable except as noted in HPI and below Physical Exam Const General: cooperative, comfortable, no acute distress, well developed, alert and awake Nutritional Appearance: obese Orientation/consciousness: patient oriented x3 Limitations: other limitations (O2 dependent nasal cannula 3L) HEENT Head: Yes normal to inspection, Yes normocephalic and Yes atraumatic Ears: hearing grossly normal bilaterally Eyes General: appearance normal, both eyes and all related structures Neck Neck: Yes normal visual inspection and Yes trachea midline Chest Chest palpation & inspection: normal inspection of the chest Resp Effort & Inspection: normal respiratory effort and able to speak in complete sentences Cardio Rate: regular rate GI Inspection: Yes normal to inspection General: Yes no CVA tenderness Back/Spine/Pelvis Back: no CVA tenderness Skin General skin exam: no rashes or lesions noted Neuro General: patient oriented x3 Extrem General: Yes normal to inspection Psych Appearance: grossly normal and well kempt Mental Status: mental status grossly normal Speech and movement: Normal speech and movement present and Clear speech present Affect: normal affect Attitude: cooperative Thought process: Normal thought process present Thought content: Normal thought content present Insight: Fair insight present (Psych) Judgement: Fair judgement present (Psych) Office Procedures Post Void Residual Post Residual Void Post Void Residual (PVR): 0 73017-Ifgc Void Residual by ultrasound Results AMB Urinalysis, Automated UA Leukoctes 0 Eyal/uL Last Edit by Rhonda Bhakta [facility] on 03/26/25 10:02 UA Nitrite Negative Last Edit by Rhonda Bhakta [facility] on 03/26/25 10:02 UA Urobilinogen 0.2 mg/dL Last Edit by Rhonda Bhakta [facility] on 03/26/25 10:02 UA Protein 0 mg/dL Last Edit by Rhonda Bhakta [facility] on 03/26/25 10:02 UA pH 7.0 Last Edit by Rhonda Bhakta [facility] on 03/26/25 10:02 UA Blood 0 Juve/uL Last Edit by Rhondageovanna Bhakta [facility] on 03/26/25 10:02 UA Specific [place] 0 Last Edit by Rhonda Yony [facility] on 03/26/25 10:02 UA Ketone Negative Last Edit by Rhonda Yony [facility] on 03/26/25 10:02 UA Bilirubin 0 mg/dL Last Edit [facility] on 03/26/25 10:02 UA Glucose 0 mg/dL Last Edit by Rhondageovanna Bhakta [facility] on 03/26/25 10:02 Results Reviewed Results Reviewed: Laboratory Last Values Urine pH (Auto) 7.0 03/26/25 10:01 Specific [place] (Auto) 0 03/26/25 10:01 Urine Protein (Auto) 0 mg/dL 03/26/25 10:01 Glucose (UA)(Auto) 0 mg/dL 03/26/25 10:01 Urine Ketones (Auto) Negative 03/26/25 10:01 Urine Blood (Auto) 0 Juve/uL 03/26/25 10:01 Urine Nitrite (Auto) Negative 03/26/25 10:01 Urine Bilirubin (Auto) 0 mg/dL 03/26/25 10:01 Urine Urobilinogen (Auto) 0.2 mg/dL 03/26/25 10:01 Leukocyte Esterase (Auto) 0 Eyal/uL 03/26/25 10:01 Assessment & Plan Assessment & Plan (1) History of urinary hesitancy: Code(s): Z87.898 - Personal history of other specified conditions Category: Medical (2) Urinary incontinence: Code(s): R32 - Unspecified urinary incontinence Category: Medical (3) Low libido: Code(s): R68.82 - Decreased libido Category: Medical Plan In office urinalysis results reviewed with the patient today; as noted above. PVR 0 mL. We did discussed potential causes for urological issues he is experiencing; we discussed further treatment options and risks and benefits of these treatment options. We did discuss pelvic floor exercises to assist with urinary dribbling. We discussed importance of weight loss in relation to overall health and well- being as well as urological issues. All questions were answered. Will obtain retroperitoneal ultrasound for further assessment evaluation. Will obtain PSA, testosterone free and total, and LH for further assessment evaluation. Follow-up in 1-3 months with imaging and labs; or sooner with any issues, concerns, and or questions. Orders: Orders AMB Urinalysis Automated Today N13.8 - Other obstructive and reflux uropathy, N40.1 - Benign prostatic hyperplasia with lower urinary tract symptoms AMB Post Void Residual by ultrasound Today N40.1 - Benign prostatic hyperplasia with lower urinary tract symptoms US retroperitoneal comp Today R32 - Unspecified urinary incontinence, Z87.898 - Personal history of other specified conditions Lutenizing Hormone Today R68.82 - Decreased libido Prostate Specific Antigen Today R68.82 - Decreased libido Testosterone, Total Today R68.82 - Decreased libido Patient Instructions: The patient had an opportunity to ask questions regarding the treatment plan. All questions were answered. Physical exam, labs, and imaging were discussed and reviewed in detail. As well as risks, benefits, and discussion of treatment choices. No major barriers to understanding were identified. The patient expressed understanding and agreement with the above treatment plan. The patient was made aware they should contact our office by phone for worsening of their current condition, the appearance of new symptoms, or with any questions or concerns. Compliance is encouraged with any medications and follow up testing that is ordered. It is a privilege to be allowed the opportunity to participate in? your urological care.? Again, if you have any questions or concerns If you have any questions or concerns please do not hesitate to contact me. The office is [phone]. This note is constructed using voice recognition software. While every effort has been made to ensure accuracy test cell technician errors may have been included. Yours sincerely, ANA ROSA Bishop Coding Level of Care Code New Pt Level 3 (78969) Diagnoses History of urinary hesitancy Z87.898 Urinary incontinence R32 Low libido R68.82 CPT Codes Post Residual Void - PVR CPT Code: 78468-Eues Void Residual by ultrasound ([id number])
--- OUTSIDE RECORDS SUMMARY | 2025-03-26 11:32 | XMS_ITS | Encounter Summary ---
Author Organization [employer] Address [address] [place] [address] 7 [place] [address] Care Team Providers Care Veterans Contact Representative Name Role Phone Lesia Tran MD Primary Care Provider + Carlos Muñiz RN Unavailable [phone] Jennifer Burgess Unavailable Reason for Visit * Reason Comments Care Management C3CM- F/U call # 5 Encounter Details Date Type Department Care Team ([facility] st Contact Info) Description 03/05/2025 Patient Outreach [facility] MED & PEDS [address] [place] [address] Lesia Tran MD [address] [place] [address] Care Management (C3CM- F/U call # 5) Social History Tobacco Use Types Packs/Day Years [...] Progress Notes * Carlos Muñiz RN - 03/05/2025 10:12 AM EST CORRY Muñiz RN placed outbound call to patient. Patient's name, and address confirmed. Patient states is doing well with no recent illnesses or emergency room visits. Patient reports that GI, pulmonology, wirer street light and PCP appointments went well. Patient reports that he continues to feel depressed. Patient denies any SI/HI. Patient reports that he continues with services, states he has appointment with therapist on 03/08 and with psychiatrist on 03/16. Patient reports that he completed sleep study at hospital which showed severe sleep apnea. Patient reports that he waiting to receive machine. Patient reports that he continues on 2L of oxygen at rest and 3L on ambulation. Patient reports that he is going to receive TALENT MANAGEMENT SPECIALIST evaluation by [facility] on 03/14. Patient reports that he has an echocardiogram appointment scheduled for 04/13/25 and a follow up on 04/25/25 to discuss results. Patient reports he has a CAT scan scheduled in June 2025. Patient reports he started taking the metformin and denied any allergies. Patient has noticed since starting metformin he hasn't been eating like before and hasn't been as hungry. Patient reports that nurse continue to bring methadone to his home daily and to check his O2 sat. CM reminded pt of the following upcoming appointments: [facility] cardiology on 05/30/25 @ 10 AM, Urology appointment on 03/26/25 @ 10 AM, televisit with PCP on 04/10/25 @ 9 AM. Patient reports that he has not received any updates on physical therapy appointment. CM called [facility] PT office on [phone], no answer, LVM to RTC on CM's #. No further questions or concerns. CM reinforced direct contact information or CHW for any additional questions or concerns. Education provided on [facility]In Ur[facility] Care located in [facility]. Patient provided with after-hours line for [facility], , which offer night time triage service and option to transfer to broadcast operations manager provider if needed. Patient verbalizes understanding, and able to repeat back to program writer. A follow up call will be placed within 10 days, patientagrees with plan. documented in this encounter Miscellaneous Notes * Care Plan - Carlos Muñiz RN - 03/05/2025 10:12 AM EST Active Care Plan Care Plan Understanding (Progressing) Start: 09/12/24 Expected End: 03/14/25 Coordination of Care Effectively coordinate care (Progressing) Start: 09/12/24 Expected End: 03/14/25 Goal Note Patient reports that he has not received any updates on physical therapy appointment. CM called [facility] on [phone], no answer, LVM to RTC on CM's #. Medication Concerns Improve Medication Adherence (Progressing) Start: 09/12/24 Expected End: 03/14/25 Patient will follow the prescribed medication regimen and complete a medication review with pharmacist before the HDF appointment. Goal Note Patient reports he started taking the metformin and denied any allergies. Plan of Care Patient Centered Plan of Care (Progressing) Start: 09/12/24 Expected End: 03/14/25 Respiratory Illness Manage Respiratory Illness (Progressing) Start: 09/12/24 Expected End: 03/14/25 Patient will follow up on his need for spirometer, O2 monitor, and supplemental oxygen prescriptionand resume appropriate pulmonary treatments. Goal Note Patient reports that he waiting to receive machine. Patient reports that he continues on 2L of oxygen at rest and 3L on ambulation. Weight Management Optimal Weight Management (Progressing) Start: 09/12/24 Expected End: 03/14/25 Patient will begin zepbound treatment as prescribed and report any side effects or concerns. Goal Note Patient reports he started taking the metformin and denied any allergies. Patient has noticed sincestarting metformin he hasn't been eating like before and hasn't been as hungry. documented in this encounter Plan of Treatment Upcoming Encounters Date Type Department Care Team (Late st Contact Info) Description 04/10/2025 9:00 AM EST Telemedicine [facility] MEDICINE [address] [place], [place] [phone] Lesia Tran MD [address] [place] [address] documented as of this encounter Visit Diagnoses Not on filedocumented in this encounter Additional Health Concerns Assessment Noted Time PHQ-9 Depression Total Score: 22 06 025 11:24 AM EDT documented as of this encounter Care Teams Veterans Contact Representative Relationship Specialty Start Date End Date Lesia Tran MD [address] [place] [address] PCP - General Internal Medicine 12/07/23 Carlos Muñiz, ROXANN [address] [place] [phone] Registered Nurse Family Medicine 09/06/24 Jennifer Burgess 09/07/24 03/19/25 documented as of this encounter
--- OUTSIDE RECORDS SUMMARY | 2025-03-26 11:33 | XMS_ITS | Clinical Summary ---
Author Organization [employer] Address [address] [facility] 7t [place] [address] Care Team Providers Care [employer] Consultant Name Role Phone Andrea Amor MD Primary Care Provider + Carlos Muñiz RN Unavailable [phone] Allergies Active Allergy Reactions Criticality Noted Date [...] and at bedtime for anxiety. Active pancrelipase, Qxx-Dyzb-Scax, (Creon) 26213-94519 units capsule Take 2 capsules by mouth with breakfast, with lunch, and with evening meal. Active hydrocortisone (Anusol-HC) 2.5 % rectal cream [...] daily. 60 tablet 2 09/20/19 25 Active furosemide (Lasix) 40 MG tablet Take 1 tablet (40 mg) by mouth Once per day. 90 tablet 1 09/20/19 25 Active OLANZapine (ZyPREXA) [...] needed for moderate anxiety 30 tablet 3 09/20/19 25 Active lactulose (Chronulac) 10 GM/15ML solution Take 30 mL (20 g) by mouth if needed each day (constipation) . 300 mL 11 10/12/19 25 Active Senexon-S 8.6-50 MG tablet TAKE 2 TABLETS BY MOUTH IN THE MORNING AND 2 TABLETS IN THE EVENING 360 tablet 1 10/13/19 25 Active Multiple Vitamin (Daily-Rip Multivitamin) tablet Take 1 tablet by mouth Once per day. 90 tablet 3 12/07/19 25 Active Semaglutide-We ight Management (Wegovy) 0.25 MG/0.5ML solution auto-injector Inject 0.5 mL (0.25 mg) under the skin 1 (one) time per week. 2 mL 2 12/07/19 25 Active hydrOXYzine HCl (Atarax) 25 MG tablet TAKE 1 TABLET (25 MG) BY MOUTH EVERY 6 (SIX) HOURS IF NEEDED FOR ANXIETY. 120 tablet 1 01/24/20 25 Active ferrous sulfate 325 (65 Fe) MG EC tablet TAKE 1 TABLET BY MOUTH EVERY OTHER DAY SWALLOW WHOLE 45 tablet 01/24/20 25 Active cyclobenzaprin e (Flexeril) 10 MG tablet Take 1 tablet (10 mg) by mouth at bedtime. 30 tablet 02/08/20 25 Active metFORMIN XR (Glucophage-XR ) 500 MG 24 hr tablet Take 1 tablet (500 mg) by mouth with evening meal. Do not crush, chew, or split. 90 tablet 1 02/08/20 25 026 Active famotidine (Pepcid) 20 MG tablet TAKE 1 TABLET (20 MG) BY MOUTH IN THE MORNING AND 1 TABLET (20 MG) IN THE EVENING. 180 tablet 1 03/06/20 25 Active meloxicam (Mobic) 15 MG tablet TAKE 1 TABLET (15 MG) BY MOUTH ONCE PER DAY. 30 tablet 03/20/20 25 Active famotidine (Pepcid) 20 MG tablet Take 1 tablet (20 mg) by mouth in the morning and 1 tablet (20 mg) in the evening. 60 tablet 3 09/20/19 25 025 Discontinued meloxicam (Mobic) 15 MG tablet Take 1 tablet (15 mg) by mouth Once per day. 30 tablet 02/08/20 25 025 Discontinued acetaminophen (Tylenol Extra Strength) 500 MG tablet Take 1 tablet (500 mg) by mouth every 6 (six) hours if needed for mild pain. 120 tablet 02/08/20 25 025 Active Problems Problem Noted Date Diagnosed Date [...] (impaired fasting glucose) 06/20/2024 Assessment & Plan (02/07/2025 2:46 PM EST): - Rx Metformin for weight management as well. Monitor for gastrointestinal side effects, especially diarrhea. - Follow-up TV in 4 weeks to assess tolerance and consider dose adjustment. - I have discussed with patient regarding increasing physicial activity and decrease calorie intake Assessment & Plan (07/27/2024 2:59 PM EDT): [...] [facility] Mild persistent asthma 02/11/2024 Assessment & Plan (02/07/2025 12:40 PM EST): - It seems to be more controlled. - Continue Trelegy inhaler tdaily + Albuterol prn only - Oxygen therapy adjusted to 1-2 liters atrest, with target saturation 92-95%. Monitor oxygen requirements during increased physical activity and physical therapy, increase to 2-3 li NC to keep above O2sat. - Advised to avoid smoking, inhalation of any substance and fu closely with pulmonology Assessment & Plan (02/11/2024 4:00 PM EST): Doing well on Breo, fu by [facility] pulmonary Advised re weight reduction. Declined Influenza [...] Last Addressed Date: 12/17/2021 Assessment & Plan (02/07/2025 2:50 PM EST): - Probably worsened by decreased mobility/obesity. Pain expected to improve with conditioning and physical therapy. - He completed home PT, I will refer to OP physical therapy. - Prescribed meloxicam to be taken on physical therapy days + Cyclobenzaprine and Tylenol prescribed as needed for pain. Apply heat to affected area - - Continue weight management, advised re weight reduction. Assessment & Plan (10/04/2024 3:47 PM EDT): [...] Plan (02/11/2024 4:01 PM EST): FU by [facility] GI, on Protonix, senna prn constipation Advised re weight reduction, may try Topamax after labs. Advised to avoid THC use Morbid obesity (CMS/HCC) 10/18/2023 Overview (10/18/2023): Last Addressed Date: 10/26/2022 Assessment & Plan (02/07/2025 2:48 PM EST): - He didn't tolerate Zepbound, Wegovy not approved by insurance. Phentermine is contraindicated due to anxiety with panic attacks - Start metformin for weight management. - Referral to dietitian offered but declined. - Recommended to decrease soda and sugary beverage consumption, increase protein intake with meals (at least 1 portion of protein with each meal) to assist with satiety, increase dietary fiber. Recommended at least 150 min/week of moderate intensity exercise. Assessment & Plan (12/06/2024 2:15 PM EDT): [...] moderate intensity exercise. Will hold referral to couturiere until next appointment once anxiety is better [...] ID: Yaniv is a 37 y.o. White South African choose not to disclose-identified cis- male (pronouns [...] for 2.5 years, currently on methadone at [facility], 128mg with a plan on [...] disability and he will follow-up with the counts include [facility] beds at the [facility] and [facility]. His VNA assist with methadone [...] vaping cannabis Advised to reach out to oil recovery unit operator at the methadone program, avoid using any other recreational substance or alcohol Assessment & Plan (07/27/2024 2:58 PM EDT): >>ASSESSMENT AND PLAN FOR ANXIETY WRITTEN ON 02/11/2024 4:04 PM BY ANDREA AMOR MD Seen by [facility] provider at [facility] [...] advised to reach out to therapist or oil recovery unit operator (he will request one at methadone [...] Encounters Date Type Department Care Team Description 03/19/2025 Patient Outreach [facility] MEDICINE [address] [place] [phone] Andrea Amor MD Care Coordination (C3 -[facility] Jennifer Burgess telephone call incoming call for pt 1 update) 03/17/2025 Refill [facility] MEDICINE [address] [place] [phone] Andrea Amor MD 03/06/2025 Refill [facility] MED & PEDS [address] [place], [place] [phone] Andrea Amor MD 03/05/2025 Patient Outreach [facility]ED[facility] [address] [place] [address] Andrea Amor MD Care Management (C3CM- F/U call # 5) 02/07/2025 11:30 AM EST Office Visit [facility] MED[facility]INE [address] [place] [phone] Andrea Amor MD IFG (impaired fasting glucose) (Primary Dx); Mild persistent asthma, unspecified whether complicated; Morbid obesity (CMS/HCC) (HCC); Acute bilateral low back pain with right-sided sciatica; TYSON (obstructive sleep apnea); Encounter for vaccination 02/07/2025 Telephone [facility] MEDICINE [address] [place] [phone] Andrea Amor MD 02/06/2025 Travel 02/01/2025 Patient Outreach [address] [address] Andrea Amor MD Care Coordination (C3 -[facility] Jennifer Burgess telephone call outreach ) 01/31/2025 Patient Outreach [address] [address] Andrea Amor MD Pre-visit Planning (SDOH screening completed on 09/12/24 ) 01/22/2025 Refill [facility] MEDICINE [address] [place] [phone] Andrea Amor MD 01/21/2025 Refill [facility] MED[facility]INE [address] [place] [phone] Andrea Amor MD 01/10/2025 Results Follow-Up [facility] MED[facility] [address] [place] [phone] Andrea Amor MD FL BARIUM SWALLOW MODIFIED 01/08/2025 Patient Outreach [facility] MEDICINE [address] [place] [phone] Andrea Amor MD Care Coordination (C3 -[facility] telephone call outreach) 01/08/[address] [address] Andrea Amor MD Medication Question 12/25/2024 Patient Outreach [address] [address] Andrea Amor MD Care Coordination (C3 [facility] telephone call outreach ) from Last 3 Months Immunizations Immunization Administration Dates Next Due DTP 06/02/1998, 8,11/02/1992,1989,1987 DTaP 06/02/1998, 8,11/02/1992,1989,1987 Hep A, Adult 07/19/2021 Hep B, Adolescent or Pediatric 10/27/1999,1999,05/27/1999 Hep B, adult 08/20/2021,07/19/2021 Hib (PRP-T) 07/03/1989 INFLUENZA INJECTABLE QUADRIV ALANT CCIIV4 MDCK Multi-dose vial 07/14/2021 IPV 11/02/1997,11/02/1992,07/03/1989 Influenza injectable quadriv alent preservative free 01/13/2023,01/28/2022 Influenza, Injectable, MDCK, preservative free 12/22/2024 MMR 07/30/2021,05/27/1999,11/02/1998 OPV, Trivalent 1987 Pfizer Covid-19 Vaccine 12+ 02/07/2025 Pneumococcal Conjugate PCV 20 12/22/2024 TD (adult), 2 Lf tetanus tox oid, [...] Sign Reading Time Taken Comments Blood Pressure 146/98 02/07/2025 11:20 AM EST Pulse 95 02/07/2025 11:20 AM EST Temperature 36.3 C (97.3 F) 02/07/2025 11:20 AM EST Respiratory Rate 20 02/07/2025 11:2 0 AM EST Oxygen Saturation 95% 02/07/2025 11: 20 AM EST pt on office o2 2L Inhaled Oxygen Concentration - - Weight 148 kg (326 lb 3.2 oz) 02/07/2025 11:20 AM EST Height 170.2 cm (5' 7 ) 02/07/2025 11:2 0 AM EST Body Mass Index 51.09 02/07/2025 11:20 AM EST Plan of Treatment Upcoming Encounters Date Type Department Care Team (Late st Contact Info) Description 04/10/2025 9:00 AM EST Telemedicine [facility] MEDICINE [address] [place] [address] Andrea Amor MD [address] [place] [address] Health Maintenance Due Date Last Done Comments Dental Prophylaxis 1985 Family Planning (PISQ) 06/23/2002 HPV Vaccines (1 - Male 3-dose series) 06/23/2002 Dental X-Ray: Bitewings 02/21/2015 02/20/2014 Hepatitis A Vaccines (2 of 2 - Risk 2-dose series) 01/18/2022 07/19/2021 Dental Oral Exam 10/11/2024 04/12/2024, 02/20/2014 Depression Monitoring 03/14/2025 09/12/2024, 025 Diabetes: Hemoglobin A1C 06/20/2025 06/20/2024, 03/0 08/2023 SDOH Screening 09/12/2025 09/12/2024 Alcohol/Substance Use Screening 12/05/2025 12/05/2024 Disability Screening 12/05/2025 12/05/2024 Tobacco Screening 02/07/2026 02/07/2025 Dental X-Ray: Full Mouth 04/13/2027 025, 12/01/2023, 03/09/2023, Additional history exists Lipid Panel 09/19/2029 09/19/2024, 03/0 08/2023, 02/01/2023 DTaP/Tdap/Td Vaccines (11 - Td or Tdap) 10/26/2032 10/26/2022, 07/21/2021, [...] Patients (6 to 49) Years Completed 12/22/2024 COVID-19 Vaccine Completed 02/07/2025, 12/2020, 07/30/2020 HIV Screening Discontinued Hepatitis C Screening Discontinued [...] Procedure Name Priority Date/Time Associated Diagnosis Comments AMB REFERRAL TO CARDIOLOGY Routine 01/31/2025 Pulmonary edema without heart failure FL BARIUM SWALLOW MODIFIED Routine 01/03/2025 10:41 AM EDT LIPID PANEL WITH REFLEX TO [...] Recently Relevant to Health Maintenance Results * Referral to Cardiology (01/31/2025) us Andrea Amor MD OUTPATIENT REFERRAL ORDE ELIZABETH Final Result * FL BARIUM SWALLOW MODIFIED (01/03/2025 10:41 AM EDT) Anatomical Region Laterality Modality Head, Neck Radiographic Elizabet ging 01/03/2025 10:4 1 AM EDT Narrative 01/03/2025 10:59 AM EDT [place] [address] Fluoroscopy Report Signed Patient: Yaniv Gutierrez MR#: [id number] : 1985 Acct:[id number] Age/Sex: 39 / M ADM Date: 01/03/25 Loc: [facility] Attending Dr: Samantha Davis NP Ordering Physician: Samantha Davis NP Date of Service: 01/03/25 Procedure(s): FL Modified Barium Swallow Accession Number(s): [id number] cc: Andrea Amor MD; Samantha Davis NP [...] 01/03/25 1057 DD/ 1041 TD/TT: 01/03/25 1045 Inspector Chief: Procedure Note Donotuseinterpreter, Image - 01/03/2025 [place] [address] Fluoroscopy Report Signed Patient: Yaniv Gutierrez GMR#: [id number] : 1985Acct:[id number] Age/Sex: 39 / MADM Date: 01/03/25 Loc: [facility] Attending Dr: Samantha Davis NP Ordering Physician: Samantha Davis NP Date of Service: 01/03/25 Procedure(s): FL Modified Barium Swallow Accession Number(s): [id number] cc: Andrea Amor MD; Samantha Davis NP [...] for further details. Electronically signed by: Compa Widler MD 01/03/2025 10:57 AM EDT Dictated By: Compa Wilder MD Signed By: <Electronically signed by Compa Wilder MD in OV> 01/03/25 1057 DD/ 1041 TD/TT: 01/03/25 1045 Inspector Chief: [facility] External Provider IMG FLU OROSCOPY PROCEDURES Final Result * (ABNORMAL) Lipid Panel with Reflex to Direct LDL (09/19/2024 3:15 PM EDT) Triglycerides 304(H) <150 mg/dL [facility] Comment:Desirable Triglyceri de: less than 150 mg/dLBorderline High Triglyceride 150-199 mg/dLHigh Triglyceride: 200-499 mg/dLVery High Triglyceride: greater than or equal to 5OO mg/dL Cholesterol 184 <200 mg/dL [facility] Comment:Desirable Cholestero l: less than 200 mg/dLBorderline High Cholesterol: 200-239 mg/dLHigh Cholesterol: greater than 239 mg/dL LDL Cholesterol Calculated 81 <100 mg/dL [facility] Comment:Desirable LDL: less than 100 mg/dLNear Optimal/Above Optimal LDL: 110- 129 mg/dLBorderline High LDL: 130-159 mg/dLHigh LDL: 160-189 mg/dLVery High LDL: greater than or equal to 190 mg/dL HDL Cholesterol 43 >40 mg/dL [facility] Comment:Desirable HDL: great er than 40 mg/dL Note: This HDL assay may give artificially low results in patients with liver disease. 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
--- OUTSIDE RECORDS SUMMARY | 2025-03-26 11:33 | XMS_ITS | Encounter Summary ---
Author Organization [employer] Address [address] [place] [address] 7[address] [place] [address] Care Team Providers Care Orthopedic Podiatrist Name Role Phone Lesia Tran MD Primary Care Provider + Carlos Muñiz RN Unavailable [phone] Carlos Muñiz RN Unavailable [phone] Jennifer Burgess Unavailable Reason for Visit * Reason Onset Date Comments Med Refill 05/15/2024 Encounter Details Date Type Department Care Team (Late st Contact Info) Description 05/15/2024 Telephone [facility] MEDICINE [address] [place], [place] [phone] Lesia Tran MD [address] [place] [address] Med Refill Social History Tobacco Use Types [...] 9:47 AM EST Medication was sent to [facility] #[id number] on 05/01/24 with 1 refill. * Telephone Encounter - Kenisha Mtz - 05/15/2024 9:43 AM EST TC from pt requesting medication refill. Medications needing refill : hydrOXYzine pamoate (Vistaril) 25 MG capsule To be sent to: [facility]/pharmacy #[id number] - [place] [address] documented in this encounter Plan of Treatment Upcoming Encounters Date Type Department Care Team (Late st Contact Info) Description 04/10/2025 9:00 AM EST Telemedicine [facility] MEDICINE [address] [place] [address] Lesia Tran MD [address] [place] [address] documented as of this encounter Visit Diagnoses Not on filedocumented in this encounter Additional Health Concerns Assessment Noted Time PHQ-9 Depression Total Score: 21 024 2:23 PM EST documented as of this encounter Care Teams Orthopedic Podiatrist Relationship Specialty Start Date End Date Lesia Tran MD [address] [place] [address] PCP - General Internal Medicine 12/07/23 Carlos Muñiz, RN [address] [place] [address] Registered Nurse Family Medicine 09/05/24 09/05/24 Carlos Muñiz, RN [address] [place] [address] Registered Nurse Family Medicine 09/06/24 Jennifer Burgess 09/07/24 03/19/25 documented as of this encounter
--- OUTSIDE RECORDS SUMMARY | 2025-03-26 11:33 | XMS_ITS | Encounter Summary ---
Author Organization [employer] Address [address] [place] [address] 7t [place] [address] Care Team Providers Care Ux Information Architect Name Role Phone Lesia Tran MD Primary Care Provider + Carlos Muñiz RN Unavailable [phone] Carlos Muñiz RN Unavailable [phone] Jennifer Burgess Unavailable Reason for Visit * Reason Onset Date Comments rs appt/disconnected call 06/29/2024 Encounter Details Date Type Department Care Team (Late st Contact Info) Description 06/29/2024 Telephone [facility] ADULT DENTAL [address] [place] [address] Trenton Wilkerson DDS [address] [place] [address] rs appt/disconnected call Social History Tobacco Use [...] encounter Miscellaneous Notes * Telephone Encounter - iFde Urrutia - 06/29/2024 8:54 AM EDT Swati called in to rs appt 07/03 for wax try in with Dr. Wilkerson. While I was on the line with front desk assistant [facility] the patient disconnected the call.. [...] Info) Description 04/10/2025 9:00 AM EST Telemedicine [facility] MEDICINE [address] [place] [address] Lesia Tran MD [address] [place] [address] documented as of this encounter Visit Diagnoses Not on filedocumented in this encounter Additional Health Concerns Assessment Noted Time PHQ-9 Depression Total Score: 21 024 2:23 PM EST documented as of this encounter Care Teams Ux Information Architect Relationship Specialty Start Date End Date Lesia Tran MD [address] [place] [address] PCP - General Internal Medicine 12/07/23 Carlos Muñiz, RN [address] [place] [address] Registered Nurse Family Medicine 09/05/24 09/05/24 Carlos Muñiz, RN [address] [place] [address] Registered Nurse Family Medicine 09/06/24 Jennifer Burgess 09/07/24 03/19/25 documented as of this encounter
--- OUTSIDE RECORDS SUMMARY | 2025-03-26 11:33 | XMS_ITS | Encounter Summary ---
Author Organization [employer] Address [address] [place] [address] 7t [place] [address] Care Team Providers Care Shaker Screen Operator Name Role Phone Lesia Tran MD Primary Care Provider + Carlos Muñiz RN Unavailable [phone] Carlos Muñiz RN Unavailable [phone] Jennifer Burgess Unavailable Reason for Visit * Reason Onset Date Comments medication 02/02/2024 Encounter Details Date Type Department Care Team (Late st Contact Info) Description 02/02/2024 Telephone [facility] ADULT DENTAL [address] [place] [address] Trenton Wilkerson DDS [address] [place] [address] medication Social History Tobacco Use Types Packs/Day [...] 04/10/2025 9:00 AM EST Telemedicine [facility] MEDICINE [address] [place] [address] Lesia Tran MD [address] [place] [address] documented as of this encounter Visit Diagnoses Not on filedocumented in this encounter Additional Health Concerns Assessment Noted Time PHQ-9 Depression Total Score: 21 06/09/2 024 2:23 PM EST documented as of this encounter Care Teams Shaker Screen Operator Relationship Specialty Start Date End Date Lesia Tran MD [address] [place] [address] PCP - General Internal Medicine 12/07/23 Carlos Muñiz, ROXANN [address] [place] [address] Registered Nurse Family Medicine 09/05/24 09/05/24 Carlos Muñiz, ROXANN [address] [place] [address] Registered Nurse Family Medicine 09/06/24 Jennifer Burgess 09/07/24 03/19/25 documented as of this encounter
--- OUTSIDE RECORDS SUMMARY | 2025-03-26 11:33 | XMS_ITS | Clinical Summary ---
Author Organization [facility] Address [address] [place] [address] Phone Care Team Providers Care Desktop Manager Name Role Phone Az Terrell Primary Care Provider [phone] Immunizations Immunization Administration Dates Next Due DTP [...] age to complete this topic Care Teams Desktop Manager Relationship Specialty Start Date End Date Az Terrell [address] [place] [address] PCP - General 11/13/16
--- OUTSIDE RECORDS SUMMARY | 2025-03-26 11:33 | XMS_ITS | Encounter Summary ---
Author Organization [employer] Address [address] [place] [address] 7t [place] [address] Care Team Providers Care Bag Adjuster Name Role Phone Neetu Bah Primary Care Provider Roma BenderP Primary Care Provider [phone] Neetu Bah Unavailable [phone] Lesia Tran MD Primary Care Provider + Carlos Muñiz RN Unavailable [phone] Carlos Muñiz RN Unavailable [phone] Jennifer Burgess Unavailable Encounter Details Date Type Department Care Team (Late st Contact Info) Description 09/29/2022 Abstract [facility] ADULT DENTAL [address] [place] [address] Trenton Wilkerson DDS [address] [place] [address] Social History Tobacco Use Types Packs/Day Years [...] Info) Description 04/10/2025 9:00 AM EST Telemedicine [facility] MEDICINE [address] [place] [address] Lesia Tran MD [address] [place] [address] documented as of this encounter Visit Diagnoses Not on filedocumented in this encounter Care Teams Bag Adjuster Relationship Specialty Start Date End Date Neetu Bah AGNP [address] [place] [phone] PCP - General Family Medicine 11/28/20 01/13/23 Roma Bender FNP [address] [place] [address] PCP - General Family Medicine 01/14/23 12/06/23 Lesia Tran MD [address] [place] [address] PCP - General Internal Medicine 12/07/23 Neetu Bah AGNP [address] [place] [phone] Family Medicine 01/14/23 09/02/23 Carlos Muñiz, RN [address] [place] [address] Registered Nurse Family Medicine 09/05/24 09/05/24 Carlos Muñiz, RN [address] [place], [place] [address] [address] Registered Nurse Family Medicine 09/06/24 Jennifer Burgess 09/07/24 03/19/25 documented as of this encounter
--- OUTSIDE RECORDS SUMMARY | 2025-03-26 11:33 | XMS_ITS | Encounter Summary ---
Author Organization [employer] Address [address] [place] [address] 7t [place] [address] Care Team Providers Care Digital Media Planner Name Role Phone Roma Bender Primary Care Provider [phone] Neetu Bah Unavailable [phone] Lesia Tran MD Primary Care Provider + Carlos Muñiz RN Unavailable [phone] Carlos Muñiz RN Unavailable [phone] Jennifer Burgess Unavailable Reason for Visit * Reason Onset Date Comments Medication Question 05/04/2023 Encounter Details Date Type Department Care Team (Late st Contact Info) Description 05/04/2023 Telephone [facility] MEDICINE [address] [place] [address] Roma Bender FNP [address] [place] [address] Medication Question Social History Tobacco Use Types [...] 50 MG tablet prescribed by pcp at [facility] today 05/04/23, was prescribed for 1 time daily but it was supposed to be 2 times daily. Any questions please contact [phone]. documented in this encounter Plan of Treatment Upcoming Encounters Date Type Department Care Team (Late st Contact Info) Description 04/10/2025 9:00 AM EST Telemedicine [facility] MEDICINE [address] [place] [address] Lesia Tran MD [address] [place] [address] documented as of this encounter Visit Diagnoses Not on filedocumented in this encounter Additional Health Concerns Assessment Noted Time PHQ-9 Depression Total Score: 11 023 3:14 PM EDT documented as of this encounter Care Teams Digital Media Planner Relationship Specialty Start Date End Date Roma Bender FNP [address] [place] [address] PCP - General Family Medicine 01/14/23 12/06/23 Lesia Tran MD [address] [place] [address] PCP - General Internal Medicine 12/07/23 Neetu Bah AGNP [address] [place] [phone] Family Medicine 01/14/23 09/02/23 Carlos Muñiz, ROXANN [address] [place] [address] Registered Nurse Family Medicine 09/05/24 09/05/24 Carlos Muñiz, ROXANN [address] [place] [address] Registered Nurse Family Medicine 09/06/24 Jennifer Burgess 09/07/24 03/19/25 documented as of this encounter
--- OUTSIDE RECORDS SUMMARY | 2025-03-26 11:33 | XMS_ITS | Encounter Summary ---
Author Organization [employer] Address [address] [place] [address] 7t [place] [address] Care Team Providers Care Screwmaker Automatic Name Role Phone Neetu Bah Primary Care Provider Roma BenderP Primary Care Provider [phone] Neetu Bah Unavailable [phone] Lesia Tran MD Primary Care Provider + Carlos Muñiz RN Unavailable [phone] Carlos Muñiz RN Unavailable [phone] Jennifer Burgess Unavailable Encounter Details Date Type Department Care Team (Late st Contact Info) Description 09/28/2022 Abstract [facility] ADULT DENTAL [address] [place] [address] Trenton Wilkerson DDS [address] [place] [address] Social History Tobacco Use Types Packs/Day Years [...] Info) Description 04/10/2025 9:00 AM EST Telemedicine [facility] MEDICINE [address] [place] [address] Lesia Tran MD [address] [place] [address] documented as of this encounter Visit Diagnoses Not on filedocumented in this encounter Care Teams Screwmaker Automatic Relationship Specialty Start Date End Date Neetu Bah AGNP [address] [place] [phone] PCP - General Family Medicine 11/28/20 01/13/23 Roma Bender FNP [address] [place] [address] PCP - General Family Medicine 01/14/23 12/06/23 Lesia Tran MD [address] [place] [address] PCP - General Internal Medicine 12/07/23 Neetu Bah AGNP [address] [place] [phone] Family Medicine 01/14/23 09/02/23 Carlos Muñiz, RN [address] [place] [address] Registered Nurse Family Medicine 09/05/24 09/05/24 Carlos Muñiz, RN [address] [place], [place] [address] [address] Registered Nurse Family Medicine 09/06/24 Jennifer Burgess 09/07/24 03/19/25 documented as of this encounter
--- OUTSIDE RECORDS SUMMARY | 2025-03-26 11:33 | XMS_ITS | Encounter Summary ---
Author Organization [employer] Address [address] [place] [address] 7t [place] [address] Care Team Providers Care Windows Systems Architect Name Role Phone Neetu Bah Primary Care Provider Roma BenderP Primary Care Provider [phone] Neetu Bah Unavailable [phone] Lesia Tran MD Primary Care Provider + Carlos Muñiz RN Unavailable [phone] Carlos Muñiz RN Unavailable [phone] Jennifer Burgess Unavailable Reason for Visit * Reason Onset Date Comments New Patient 11/18/2022 Encounter Details Date Type Department Care Team (Late st Contact Info) Description 11/18/[address] [facility] MEDICINE [address] [place], [place] [phone] Koby Holland MD [address] [place], [place] [phone] New Patient Social History Tobacco Use Types [...] been transfer over to wait list for [employer] SINCE 11/24/2022 * Telephone Encounter - Lisa Lopes - 11/18/2022 10:33 AM EDT Tc to Pt , informed that we do take insurance, but must call [employer] to change location. Once done, to please call back to facility at [phone] documented in this encounter Plan of Treatment Upcoming Encounters Date Type Department Care Team (Late st Contact Info) Description 04/10/2025 9:00 AM EST Telemedicine [facility] MEDICINE [address] [place] [address] Lesia Tran MD [address] [place] [address] documented as of this encounter Visit Diagnoses Not on filedocumented in this encounter Care Teams Windows Systems Architect Relationship Specialty Start Date End Date Neetu Bah AGNP [address] [place] [phone] PCP - General Family Medicine 11/28/20 01/13/23 Roma Bender FNP [address] [place] [address] PCP - General Family Medicine 01/14/23 12/06/23 Lesia Tran MD [address] [place] [address] PCP - General Internal Medicine 12/07/23 Neetu Bah AGNP [address] [place] [phone] Family Medicine 01/14/23 09/02/23 Carlos Muñiz, ROXANN [address] [place] [address] Registered Nurse Family Medicine 09/05/24 09/05/24 Carlos Muñiz RN [address] [place] [address] Registered Nurse Family Medicine 09/06/24 Jennifer Burgess 09/07/24 03/19/25 documented as of this encounter
--- OUTSIDE RECORDS SUMMARY | 2025-03-26 11:33 | XMS_ITS | Encounter Summary ---
Author Organization [employer] Address [address] [place] [address] 7t [place] [address] Care Team Providers Care Truck Dispatcher Name Role Phone Lesia Tran MD Primary Care Provider + Carlos Muñiz RN Unavailable [phone] Carlos Muñiz RN Unavailable [phone] Jennifer Burgess Unavailable Reason for Visit * Reason Onset Date Comments Nurse Triage 06/16/2024 Encounter Details Date Type Department Care Team (Late st Contact Info) Description 06/16/2024 Telephone [facility] MEDICINE [address] [place], [place] [phone] Lesia Tran MD [address] [place], [place] [phone] Nurse Triage Social History Tobacco Use Types [...] the past 12 months, has t he [employer], gas, oil or water [employer] threatened to shut off services in your [...] appt from yesterday as he was in [facility] ( note requested) Patient with reported [...] is in agreement to reach out to [facility] and Crisis as needed. Has concerns for [...] had contact with Care Coordinators here at [facility] and is requesting additional help. Patient agrees to have [facility] reach out to him with worsening symptoms. [facility] and message to [facility] sent. Disposition reviewed and patient in agreement [...] - 06/16/2024 10:29 AM EDT Please obtain [facility] note from visit on 06/15/24. Patient scheduled with PCP on Wednesday06/20/24. * Telephone Encounter - Kenisha Mtz - 06/16/2024 9:52 AM EDT Symptoms: Abdominal Pain - Male, Abdominal Swelling Outcome: Schedule an urgent appointment (within 4 hours) or talk to a nurse or provider soon Reason: Started within the past 3 days The caller accepted this outcome. [phone] documented in this encounter Plan of Treatment Upcoming Encounters Date Type Department Care Team (Late st Contact Info) Description 04/10/2025 9:00 AM EST Telemedicine [facility] MEDICINE [address] [place] [address] Lesia Tran MD [address] [place] [address] documented as of this encounter Visit Diagnoses Not on filedocumented in this encounter Additional Health Concerns Assessment Noted Time PHQ-9 Depression Total Score: 21 024 2:23 PM EST documented as of this encounter Care Teams Truck Dispatcher Relationship Specialty Start Date End Date Lesia Tran MD [address] [place] [address] PCP - General Internal Medicine 12/07/23 Carlos Muñiz RN [address] [facility] [place] [address] Registered Nurse Family Medicine 09/05/24 09/05/24 Carlos Muñiz RN [address] [place] [address] Registered Nurse Family Medicine 09/06/24 Jennifer Burgess 09/07/24 03/19/25 documented as of this encounter
--- OUTSIDE RECORDS SUMMARY | 2025-03-26 11:33 | XMS_ITS | Encounter Summary ---
Author Organization [employer] Address [address] [facility] 7t [place] [address] Care Team Providers Care Scientist Name Role Phone Roma Bender Primary Care Provider [phone] Neetu Bah Unavailable [phone] Lesia Tran MD Primary Care Provider + Carlos Muñiz RN Unavailable [phone] Carlos Muñiz RN Unavailable [phone] Jennifer Burgess Unavailable Encounter Details Date Type Department Care Team (Late st Contact Info) Description 02/19/2023 Orders Only [facility] MED & PEDS [address] [place] [address] Roma Bender FNP [address] [place] [address] Other acute gastritis, presence of bleeding unspecified [...] Info) Description 04/10/2025 9:00 AM EST Telemedicine [facility] MEDICINE [address] [place] [phone] Lesia Tran MD [address] [place] [address] documented as of this encounter Visit Diagnoses Diagnosis Other acute gastritis, presence of bleeding unspecified- Primary documented in this encounter Additional Health Concerns Assessment Noted Time PHQ-9 Depression Total Score: 11 023 3:14 PM EDT documented as of this encounter Care Teams Scientist Relationship Specialty Start Date End Date Roma Bender FNP [address] [place] [phone] PCP - General Family Medicine 01/14/23 12/06/23 Lesia Tran MD [address] [place] [phone] PCP - General Internal Medicine 12/07/23 Neetu Bah AGNP [address] [place] [phone] Family Medicine 01/14/23 09/02/23 Carlos Muñiz, RN [address] [place] [address] Registered Nurse Family Medicine 09/05/24 09/05/24 Carlos Muñiz, ROXANN [address] [place] [address] Registered Nurse Family Medicine 09/06/24 Jennifer Burgess 09/07/24 03/19/25 documented as of this encounter
--- OUTSIDE RECORDS SUMMARY | 2025-03-26 11:33 | XMS_ITS | Encounter Summary ---
Author Organization [employer] Address [address] [place] [address] 7t [place] [address] Care Team Providers Care Heat Treat Worker Name Role Phone Neetu Bah Primary Care Provider Roma BenderP Primary Care Provider [phone] Neetu Bah Unavailable [phone] Lesia Tran MD Primary Care Provider + Carlos Muñiz RN Unavailable [phone] Carlos Muñiz RN Unavailable [phone] Jennifer Burgess Unavailable Encounter Details Date Type Department Care Team (Late st Contact Info) Description 09/29/2022 Abstract [facility] ADULT DENTAL [address] [place] [address] Trenton Wilkerson DDS [address] [place] [address] Social History Tobacco Use Types Packs/Day Years [...] Info) Description 04/10/2025 9:00 AM EST Telemedicine [facility] MEDICINE [address] [place] [address] Lesia Tran MD [address] [place] [address] documented as of this encounter Visit Diagnoses Not on filedocumented in this encounter Care Teams Heat Treat Worker Relationship Specialty Start Date End Date Neetu Bah AGNP [address] [place] [phone] PCP - General Family Medicine 11/28/20 01/13/23 Roma Bender FNP [address] [place] [address] PCP - General Family Medicine 01/14/23 12/06/23 Lesia Tran MD [address] [place] [address] PCP - General Internal Medicine 12/07/23 Neetu Bah AGNP [address] [place] [phone] Family Medicine 01/14/23 09/02/23 Carlos Muñiz, RN [address] [place] [address] Registered Nurse Family Medicine 09/05/24 09/05/24 Carlos Muñiz, RN [address] [place], [place] [address] [address] Registered Nurse Family Medicine 09/06/24 Jennifer Burgess 09/07/24 03/19/25 documented as of this encounter
--- OUTSIDE RECORDS SUMMARY | 2025-03-26 11:33 | XMS_ITS ---
Author Organization [employer] Address [address] [place] [address] 7t [place] [address] Care Team Providers Care Artificial Breeding Technician Name Role Phone Lesia Tran MD Primary Care Provider + Carlos Muñiz RN Unavailable [phone] CM Complex Status:Enrolled (Active) Start date:09/06/2024 Enrollment date:09/07/2024 Enrollment reason:Other Overview Community Referral- Contacted by [facility] contact for patient with inpatient admission attributed to [facility]that requires assistance from CM program. Please see forwarded email for information and coordination of care with inpatient SW, Karen Burt at [facility]. He has recently been put on continuous O2 2L, hehas trouble ambulating and could also use nutrition education as well, Case Team Name Relationship Phone Carlos Muñiz RN(Responsible Staff) Registered [facility] [phone] Continued Care and Services Coordination
== END 2025-03-26 10:24 | disposition home or self-care (01) ==
LOC: HO.HUSH 09:51
PROVIDERS: PCP Internal Medicine; Visit Provider Nurse Practitioner Family
DX: Z87.898 Personal history of other specified conditions (principal); R32 Unspecified urinary incontinence; R68.82 Decreased libido; N40.1 Benign prostatic hyperplasia with lower urinary tract symptoms; N13.8 Other obstructive and reflux uropathy
CPT/HCPCS: 99203

== ENCOUNTER → 2025-03-26 09:50 | Outpatient (BNVA) | payer MEDICAID, SELFPAY | PROVIDERS: PCP Internal Medicine; Visit Provider Nurse Practitioner Family | DX: R32 Unspecified urinary incontinence (principal); R68.82 Decreased libido; Z87.898 Personal history of other specified conditions | CPT/HCPCS: 51798; 81003; 99212 ==